=== PATIENT | female | born 1975 | race Caucasian/White ===

== ENCOUNTER 2019-09-25 08:56 | Inpatient (IN) | payer SELFPAY ==
[2019-09-25 09:07] VITALS: BP 130/94; PULSE 119; RESP 22; TEMP 36.4; O2SAT 93; BMI 33.3
--- NOTE | 2019-09-25 09:36 | W.ED.PSYCH ---
HPI - Psych General: Chief Complaint: Psychiatric Symptoms Stated Complaint: WANTS NPU Time Seen by Provider: 09/25/19 09:04 Source: patient Mode of arrival: ambulatory Limitations: no limitations History of Present Illness: HPI Narrative: Patient is a 44-year-old female who presents to ED today along with her daughter for complaints of worsening bipolar and schizophrenia symptoms; patient tells me her auditory hallucinations are worsening to the point where they are affecting her daily functioning; she states she often hears the voices coming through the radio telling her to do random things in the house such as go upstairs and wait for an individual to arrive; she states she is occasionally becoming manic and daughter states she will walk to her house at 6 AM which is over a 2 mile walk; patient states that she is not eating well, not bathing, and not keeping up with beauty director because I feel stuck in my mind ; patient reports her last inpatient hospitalization was approximately 2 years ago and at that point was started on risperidone which seemed to control her symptoms well up until the last few months; she denies feeling suicidal but states she wants to go to bed and not wake up because she is tired of feeling like this and being a burden on her and daughter. She does admit to occasional methamphetamine use. Relieving factors: none Exacerbating factors: none Associated psychiatric symptoms: auditory hallucinations Associated symptoms: Reports auditory hallucinations and depression; Deny visual hallucinations, homicidal ideation or suicidal ideation Review of Systems Const: Denies: fever or chills Card: Denies: chest pain, palpitations, irregular heart rhythm, edema, lightheadedness, syncope or pre-syncope Resp: Denies: shortness of breath, coughing up blood or chest congestion GI: Denies: abdominal pain, nausea, vomiting or diarrhea Skin/Breast: Denies: rash Neuro: Denies: headache Psych: Reports: anxiety, depression, mood swings, panic attacks, hopelessness, loss of interest, paranoia and auditory hallucinations; Denies: visual hallucinations, suicidal ideation or homicidal ideation PFSH ED PFSH: Statuses (acute, chronic, etc) shown below reflect problem list status as previously entered and may not be historically accurate Social History (Updated 09/25/19 @ 14:15 by Leela Gutierrez RN) Smoking and tobacco status: current every day smoker Quit status (tobacco): not considering quitting Second hand smoke exposure: No Smoking risk assessment/counseling performed?: Yes Current gender identity: Female Physical Exam Const: COMMON NORMALS: no apparent distress, oriented x3, no limitations, alert and well nourished GENERAL APPEARANCE: cooperative ORIENTATION/CONSCIOUSNESS: Yes oriented to person, Yes oriented to place and Yes oriented to time Resp: COMMON NORMALS: normal respiratory effort and clear to auscultation bilaterally AUSCULTATION: clear to auscultation bilaterally Cardio: COMMON NORMALS: regular rate and regular rhythm RATE: regular rate RHYTHM: regular rhythm Neuro: JUDE COMA SCALE: document GCS findings Jude coma scale eye opening: Spontaneous [place] coma scale verbal response: Orientated Jude coma scale motor response: Obey commands [place] coma scale total score: 15 COMMON NORMALS: oriented x3, moves all extremities and no focal motor deficits SENSORIUM/ORIENTATION: Yes alert, Yes oriented to person, Yes oriented to place and Yes oriented to time SPEECH: speech normal GAIT: Yes normal gait Psych: COMMON NORMALS: mental status grossly normal, thought process normal, cooperative, affect normal, speech normal and activity/motor behavior normal APPEARANCE: Yes grossly normal ACTIVITY/MOTOR BEHAVIOR: Yes appropriate eye contact and No psychomotor agitation SPEECH: Yes normal speech THOUGHT PROCESS: normal thought process THOUGHT CONTENT: Yes normal thought content ATTENTION/CONCENTRATION: Yes attention grossly intact and Yes concentration grossly intact MEMORY/COGNITION: Yes memory grossly intact and Yes cognition grossly intact INSIGHT: insight good JUDGEMENT: judgment good Skin: COMMON NORMALS: no rashes or lesions noted GENERAL SKIN EXAM: no rashes or lesions noted MDM - Psych Lab Data: Labs: Lab Results 09/25/19 09/25/19 09/25/19 Range/Units 09:39 09:46 09:46 WBC 7.2 (4.0-10.0) 10^3/ uL RBC 5.02 (4.1-5.3) 10^6/u L Hgb 15.4 H (11.5-15.3) g/dL Hct 47.8 H (37.0-47.0) % MCV 95.2 (81-99) fL MCH 30.7 (28.0-34.0) pg MCHC 32.2 (30.0-36.0) g/dL RDW 14.0 (12.1-15.1) % Plt Count 244 (130-400) 10^3/c mm MPV 9.2 (7.4-10.4) fL Neut % (Auto) 71.8 % Lymph % (Auto) 22.8 % Woodson % (Auto) 3.6 % Eos % (Auto) 0.8 % Baso % (Auto) 0.6 % Neut # (Auto) 5.2 (1.8-7.7) 10^3/u L Lymph # (Auto) 1.6 (0.8-4.8) 10^3/u L Woodson # (Auto) 0.3 (0.2-0.9) 10^3/u L Eos # (Auto) 0.1 (0.0-0.8) 10^3/u L Baso # (Auto) 0.0 (0.0-0.1) 10^3/u L Nucleated RBC % (a uto) 0 % Nucleated RBCs # 0.0 /100WBC Sodium 139 (136-145) mmol/L Potassium 3.9 (3.5-5.1) mmol/L Chloride 103 (98-107) mmol/L Carbon Dioxide 27 (22-29) mmol/L Anion Gap 12.9 (5-19) BUN 7 (6-20) mg/dL Creatinine 0.9 (0.5-0.9) mg/dL GFR Calculation 67.4 L (90-130) mL/min Glucose 135 H (74-109) mg/dL Calcium 10.0 (8.5-10.5) mg/dL Total Bilirubin 0.2 (0.15-1.2) mg/dL AST 19 (0-32) U/L ALT 20 (0-33) U/L Alkaline Phosphata se 78 (35-105) IU/L Total Protein 7.5 (6.6-8.7) g/dL Albumin 3.8 (3.5-5.2) g/dL Globulin 3.7 (1.3-4.6) g/dL HCG, Qual (Negative) Salicylates < 0.3 L (3-10) mg/dL Urine Opiates Scre en Negative (Negative) ng/mL Acetaminophen < 5.0 L (10-30) ug/mL Ur Barbiturates Sc reen Negative (Negative) ng/mL Ur Phencyclidine S crn Negative (Negative) ng/mL Ur Amphetamines Sc reen Positive H (Negative) ng/mL U Benzodiazepines Scrn Negative (Negative) ng/mL Urine Cocaine Scre en Negative (Negative) ng/mL U Marijuana (THC) Screen Negative (Negative) ng/mL Ethyl Alcohol < 10 (0-10) mg/dL 09/25/19 Range/Units 09:46 WBC (4.0-10.0) 10^3/ uL RBC (4.1-5.3) 10^6/u L Hgb (11.5-15.3) g/dL Hct (37.0-47.0) % MCV (81-99) fL MCH (28.0-34.0) pg MCHC (30.0-36.0) g/dL RDW (12.1-15.1) % Plt Count (130-400) 10^3/c mm MPV (7.4-10.4) fL Neut % (Auto) % Lymph % (Auto) % Woodson % (Auto) % Eos % (Auto) % Baso % (Auto) % Neut # (Auto) (1.8-7.7) 10^3/u L Lymph # (Auto) (0.8-4.8) 10^3/u L Woodson # (Auto) (0.2-0.9) 10^3/u L Eos # (Auto) (0.0-0.8) 10^3/u L Baso # (Auto) (0.0-0.1) 10^3/u L Nucleated RBC % (a uto) % Nucleated RBCs # /100WBC Sodium (136-145) mmol/L Potassium (3.5-5.1) mmol/L Chloride (98-107) mmol/L Carbon Dioxide (22-29) mmol/L Anion Gap (5-19) BUN (6-20) mg/dL Creatinine (0.5-0.9) mg/dL GFR Calculation (90-130) mL/min Glucose (74-109) mg/dL Calcium (8.5-10.5) mg/dL Total Bilirubin (0.15-1.2) mg/dL AST (0-32) U/L ALT (0-33) U/L Alkaline Phosphata se (35-105) IU/L Total Protein (6.6-8.7) g/dL Albumin (3.5-5.2) g/dL Globulin (1.3-4.6) g/dL HCG, Qual Negative (Negative) Salicylates (3-10) mg/dL Urine Opiates Scre en (Negative) ng/mL Acetaminophen (10-30) ug/mL Ur Barbiturates Sc reen (Negative) ng/mL Ur Phencyclidine S crn (Negative) ng/mL Ur Amphetamines Sc reen (Negative) ng/mL U Benzodiazepines Scrn (Negative) ng/mL Urine Cocaine Scre en (Negative) ng/mL U Marijuana (THC) Screen (Negative) ng/mL Ethyl Alcohol (0-10) mg/dL Discharge Plan Discharge Patient Disposition: Xfer Psychiatric Hosp Clinical Impression: Chronic schizophrenia Bipolar disorder Qualifiers: Active/Remission status: in partial remission Most recent bipolar episode type: most recent episode unspecified type Qualified Code(s): F31.70 - Bipolar disorder, currently in remission, most recent episode unspecified Condition: Stable Discharge Orders: Discharge Order (Routine); Ordered 09/27/19 Ordered By: Julio Vo Discharge Diet: Regular Discharge Activity: Resume usual activity Discharge Date/Time: 09/25/19 11:50 Coding Level of Care Code ED Shuttle Driver for Chg Fwd Exam Problem Focused
[2019-09-25 09:51] LABS: Basophils % 0.6 %; Eosinophils # 0.1 10^3/uL (0.0-0.8); Eosinophils % 0.8 %; Hematocrit 47.8 % (37.0-47.0); Hemoglobin 15.4 g/dL (11.5-15.3); Lymphocytes # 1.6 10^3/uL (0.8-4.8); Lymphocytes % 22.8 %; Mean Corpuscular HGB Conc 32.2 g/dL (30.0-36.0); Mean Corpuscular Hemoglobin 30.7 pg (28.0-34.0); Mean Corpuscular Volume 95.2 fL (81-99); Mean Platelet Volume 9.2 fL (7.4-10.4); Monocytes # 0.3 10^3/uL (0.2-0.9); Monocytes % 3.6 %; Neutrophils # 5.2 10^3/uL (1.8-7.7); Neutrophils % 71.8 %; Nucleated Red Blood Cells % 0 %; Platelet Count 244 10^3/cmm (130-400); Red Blood Count 5.02 10^6/uL (4.1-5.3); White Blood Count 7.2 10^3/uL (4.0-10.0)
[2019-09-25] MEDS: LORazepam 2 mg/mL INJ 1 mL 1 MG IM (09:55)
[2019-09-25 10:10] LABS: HCG, Serum Qual Negative (Negative)
[2019-09-25 10:12] LABS: Alanine Aminotransferase 20 U/L (0-33); Albumin Level 3.8 g/dL (3.5-5.2); Alkaline Phosphatase 78 IU/L (35-105); Anion Gap 12.9 (5-19); Aspartate Amino Transferase 19 U/L (0-32); Blood Urea Nitrogen 7 mg/dL (6-20); Carbon Dioxide 27 mmol/L (22-29); Chloride 103 mmol/L (98-107); Globulin 3.7 g/dL (1.3-4.6); Glomerular Filtration Rate 67.4 mL/min (90-130); Glucose 135 mg/dL (74-109); Potassium 3.9 mmol/L (3.5-5.1); Sodium 139 mmol/L (136-145); Total Bilirubin 0.2 mg/dL (0.15-1.2); Total Protein 7.5 g/dL (6.6-8.7)
[2019-09-25 10:14] LABS: Acetaminophen < 5.0 ug/mL (10-30); Alcohol Level < 10 mg/dL (0-10); Salicylate < 0.3 mg/dL (3-10)
[2019-09-25 10:17] LABS: Barbiturates Screen Urine Negative (Negative); Benzodiazepines Screen Urine Negative (Negative); Cocaine Screen Urine Negative (Negative); Opiate Screen Urine Negative (Negative); PCP Screen Urine Negative (Negative); THC Screen Urine Negative (Negative)
[2019-09-25 10:18] LABS: Amphetamines Screen Urine Positive (Negative)
[2019-09-25] MEDS: nicotine 21 mg Patch 1 PATCH TRANSDERMA (10:18)
[2019-09-25] MEDS: OLANZapine ODT 5 MG TABLET 2.5 MG PO (10:30)
--- NOTE | 2019-09-25 11:20 | PC.NURSE ---
pt resting comfortably at this time
[2019-09-25 11:50] VITALS: BP 147/96; PULSE 90; O2SAT 96
[2019-09-25 12:10] VITALS: BP 146/96; PULSE 106; RESP 18; TEMP 36.6; O2SAT 94
[2019-09-25] MEDS: hyDROXYzine 25 mg Capsule 50 MG PO (12:40)
--- NOTE | 2019-09-25 12:41 | PC.NURSE ---
PRN VISTARIL 50 MG GIVEN PO PER PT C/O ANXIETY REQUEST SOMETHING FOR HER NERVES WILL CONT TO MONITOR.
--- NOTE | 2019-09-25 14:17 | PC.NURSE ---
prn vistaril effective no further c/o anxiety. pt able to participate in group at this time
[2019-09-25 21:10] VITALS: BP 151/96; PULSE 97; RESP 21; TEMP 36.8; O2SAT 94
[2019-09-26 06:00] VITALS: BP 148/93; PULSE 91; RESP 20; TEMP 36.7; O2SAT 94
[2019-09-26] MEDS: hyDROXYzine 25 mg Capsule 50 MG PO ×2 (08:54→16:18)
[2019-09-26] MEDS: risperiDONE 1 mg Tablet PO ×3 (08:54→20:42)
--- NOTE | 2019-09-26 08:55 | PC.NURSE ---
Addendum entered by Nidia Justin LPN 09/26/19 11:04: prn med effective no further c/o anxiety, pt was able to attend group this morning Original Note: PRN VISTARIL 50 MG GIVEN PO PER PT C/O STATED ANXIETY. HAD TO BE WOKEN UP TO TAKE SCHEDULED RISPERDAL. STAFF WILL CONT TO MONITOR.
[2019-09-26] MEDS: nicotine 21 mg Patch 1 PATCH TRANSDERMA (10:17)
[2019-09-26] MEDS: LORazepam 1 mg Tablet PO (11:52)
--- NOTE | 2019-09-26 11:54 | PC.NURSE ---
PT NOTE: PRN ATIVAN 1MG PO GIVEN FOR ANXIETY PER DR. YODER.
[2019-09-26 13:47] VITALS: BP 140/102; PULSE 114; RESP 18; TEMP 36.8; O2SAT 94
--- NOTE | 2019-09-26 15:09 | P.HP_ITS ---
Providers/Chief Complaint Admitting Physician: Julio Vo MD Primary Care Provider: Krystian Chaparro MD Chief Complaint: BIPOLAR, SCHIZOPHRENIA, ACUTE PSYCHOSIS HPI NPU History of Present Illness Yamileth Feliciano is a 44 year old female who presents today reporting that she is having a significant episode of julianna which is something she has struggled with in the past. She reports that she has been on the Risperdal 1 mg daily for long time and feels like it's been ineffective. We discussed the risks benefits and alternatives of increasing her Risperdal and she understood and agreed to proceed as is documented in this note. Additionally we discussed her addiction which she was very much downplaying. She reports that she maybe uses methamphetamine once a month. We discussed the fact that even if that's the case her intersections with mental health increase with her usage of drugs. He reports that overall she feels doing better in general managing her addiction but she does feel like the medication is begun to wear off. She denies significant psychosocial changes since her last hospitalization which was 11/09/2017 which has an excerpt below. She denies being homeless or having any significant psychosocial stressors preventing her from having success at this time. Psychiatric history: She reports that she hasn't had many hospitalizations, and full or less. She also denies being on multiple different medications. She reports that the Risperdal has been helpful but she is always been on this fairly low dose. Substance abuse history: She does endorse limited cigarette smoking, denies significant alcohol use, denies marijuana use or any other illicit drug use except for the methamphetamine which she reports is a very minimal behavior/once a month. History of Present Illness Date of Service: Nov 09, 2017 Chief Complaint: acute agitation, delusions HPI: Ms. Feliciano is a 42-year-old female who was admitted from the [facility] ED on a 96 hour hold where she presented with acute agitation, and some delusional thinking. Per affidavits completed per the ER physician and the patient's friend, they describe with the patient is acutely psychotic, disoriented and admitted to recently using methamphetamine. Appears that the patient was extremely agitated at that time, and did not recognize his son. In addition of friends describes that the patient has been having delusions of being hit by a car and having a friend receive a lot of money from. As patient presents today she reports that prior to coming in the hospital that she had extreme panic attack and had episodes of confusion and disorientation. When confronted with the data that her UDS was positive for amphetamine, she minimized this at first but then admitted that she did use a few days before he came into the hospital . She states that she is aware that she is on a 96 hour hold and I did voluntarily decided to come in but my family were concerned about me. Prior to this incident she denies any symptoms consistent with julianna, hypomania, psychosis or depression and by her report she was doing relatively well. She states that she has some difficulty recalling the details of the events that happened over the past 4 days, and so was unable to answer any questions about her substance use, or any other psychosocial stressors that led up to her hospitalization. As she presents today she denies any symptoms consistent with julianna, hypomania, psychosis. She does report having some difficulty sleeping. She denies any alcohol use, denies any other substance use. Meds NPU Home Medications Medication Instructions Recorded Confirmed Type clonidine HCl 0.1 mg PO DAILY 09/25/19 09/25/19 History hydroxyzine pamoate 25 mg PO QID 09/25/19 09/25/19 History risperidone 1 mg PO DAILY 09/25/19 09/25/19 History Allergies Allergy/AdvReac Type Severity Reaction Status Date / Time No Known Allergies Allergy Verified 09/25/19 09:18 PFS NPU PFSH: Statuses (acute, chronic, etc) shown below reflect problem list status as previously entered and may not be historically accurate Social History (Updated 09/25/19 @ 14:15 by Leela Gutierrez RN) Smoking and tobacco status: current every day smoker Quit status (tobacco): not considering quitting Second hand smoke exposure: No Smoking risk assessment/counseling performed?: Yes Current gender identity: Female Mental Status Exam MSE Comments: This is an obese white female with adequate dress, grooming and contact. Does have a red rash on the center of her face. No abnormal movements except for psychomotor agitation. Cooperative with exam in no acute distress. Speech was increased rate and volume. Mood described as manic, affect energetic. Thought process organized. Thought content: Patient denied any suicidal or homicidal ideations, there were no delusions reported noted, she denied any auditory or visual hallucinations. Attention and concentration were intact and memory appeared reliable and none were formally tested. She is alert and oriented ?3. Insight and judgment are limited. Vitals/I&O/Wt Last Vital Signs Temp 98.2 F 09/26/19 13:47 Pulse 114 H 09/26/19 13:47 Resp 18 09/26/19 13:47 BP 140/102 09/26/19 13:47 Pulse Ox 94 09/26/19 13:47 Weight last 48 hrs Weight 90.718 kg Data NPU : 09/25/19 09:46 09/25/19 09:46 A&P Additional A&P Information This is a 44-year-old white female with a known history of bipolar disorder and active addiction who presents in an apparent hypomanic/manic state desiring adjustment to her medication to help with her julianna. 1. Continue current medication except increase Risperdal to 1 mg every morning and 2 mg by mouth daily at bedtime. 2. Encourage individual, group and milieu therapy. 3. Continue every 15 minute checks for safety. 4. Encourage sober living treatment referrals at the highest level of care to which she is willing to commit. Involuntary Hold Information 96 Hour Hold: 96 Hour Involuntary Admission: No Attestations NPU Medical Necessity Statement*: Inpatient hospitalization is medically necessary in the clinically appropriate intervention at this time. She will be in the h ospital for over 2 midnights. She is not on a 96 hour hold and is also very interested in being able to discharge when she feels better so this will likely be a short stay. Likely length of stay 2-4 days. Coding Level of Care Code Acute Agronomy Research Manager for Shara Zaldivar
--- NOTE | 2019-09-26 16:19 | PC.NURSE ---
PRN VISTARIL 50 MG GIVEN PO PER PT C/O STATED ANXIETY WILL CONT TO MONITOR.
[2019-09-26] MEDS: propranolol 20 mg Tablet PO (20:41)
[2019-09-26] MEDS: trazodone 50 mg Tablet PO (20:41)
[2019-09-26 22:00] VITALS: BP 158/93; PULSE 109; RESP 21; TEMP 36.8; O2SAT 95
[2019-09-27] MEDS: acetaminophen 325 mg Tablet 650 MG PO (02:40)
[2019-09-27 06:00] VITALS: BP 119/71; PULSE 73; RESP 19; TEMP 37.1; O2SAT 93
[2019-09-27] MEDS: risperiDONE 1 mg Tablet PO (09:22)
[2019-09-27] MEDS: propranolol 20 mg Tablet PO ×2 (09:22→14:28)
[2019-09-27] MEDS: nicotine 21 mg Patch 1 PATCH TRANSDERMA (10:38)
[2019-09-27 14:00] VITALS: BP 129/85; PULSE 80; RESP 18; TEMP 36.8; O2SAT 94
--- NOTE | 2019-09-27 15:12 | PM.NDC ---
Reason for Visit Reason for Visit: Reason For Visit: BIPOLAR, SCHIZOPHRENIA, ACUTE PSYCHOSIS Brief History: HPI NPU History of Present Illness Yamileth Feliciano is a 44 year old female who presents today reporting that she is having a significant episode of julianna which is something she has struggled with in the past. She reports that she has been on the Risperdal 1 mg daily for long time and feels like it's been ineffective. We discussed the risks benefits and alternatives of increasing her Risperdal and she understood and agreed to proceed as is documented in this note. Additionally we discussed her addiction which she was very much downplaying. She reports that she maybe uses methamphetamine once a month. We discussed the fact that even if that's the case her intersections with mental health increase with her usage of drugs. He reports that overall she feels doing better in general managing her addiction but she does feel like the medication is begun to wear off. She denies significant psychosocial changes since her last hospitalization which was 11/09/2017 which has an excerpt below. She denies being homeless or having any significant psychosocial stressors preventing her from having success at this time. Psychiatric history: She reports that she hasn't had many hospitalizations, and full or less. She also denies being on multiple different medications. She reports that the Risperdal has been helpful but she is always been on this fairly low dose. Substance abuse history: She does endorse limited cigarette smoking, denies significant alcohol use, denies marijuana use or any other illicit drug use except for the methamphetamine which she reports is a very minimal behavior/once a month. History of Present Illness Date of Service: Nov 09, 2017 Chief Complaint: acute agitation, delusions HPI: Ms. Feliciano is a 42-year-old female who was admitted from the [facility] ED on a 96 hour hold where she presented with acute agitation, and some delusional thinking. Per affidavits completed per the ER physician and the patient's friend, they describe with the patient is acutely psychotic, disoriented and admitted to recently using methamphetamine. Appears that the patient was extremely agitated at that time, and did not recognize his son. In addition of friends describes that the patient has been having delusions of being hit by a car and having a friend receive a lot of money from. As patient presents today she reports that prior to coming in the hospital that she had extreme panic attack and had episodes of confusion and disorientation. When confronted with the data that her UDS was positive for amphetamine, she minimized this at first but then admitted that she did use a few days before he came into the hospital . She states that she is aware that she is on a 96 hour hold and I did voluntarily decided to come in but my family were concerned about me. Prior to this incident she denies any symptoms consistent with julianna, hypomania, psychosis or depression and by her report she was doing relatively well. She states that she has some difficulty recalling the details of the events that happened over the past 4 days, and so was unable to answer any questions about her substance use, or any other psychosocial stressors that led up to her hospitalization. As she presents today she denies any symptoms consistent with julianna, hypomania, psychosis. She does report having some difficulty sleeping. She denies any alcohol use, denies any other substance use. Meds NPU Home Medications Medication Instructions Recorded Confirmed Type clonidine HCl 0.1 mg PO DAILY 09/25/19 09/25/19 History hydroxyzine pamoate 25 mg PO QID 09/25/19 09/25/19 History risperidone 1 mg PO DAILY 09/25/19 09/25/19 History Allergies Allergy/AdvReac Type Severity Reaction Status Date / Time No Known Allergies Allergy Verified 09/25/19 09:18 [facility] NPU PFSH: Statuses (acute, chronic, etc) shown below reflect problem list status as previously entered and may not be historically accurate Social History (Updated 09/25/19 @ 14:15 by Leela Gutierrez RN) Smoking and tobacco status: current every day smoker Quit status (tobacco): not considering quitting Second hand smoke exposure: No Smoking risk assessment/counseling performed?: Yes Current gender identity: Female Hospital Course Hospital Course Yamileth presented to the emergency room reporting thoughts to kill herself and feeling like her medication was not working. She was admitted to the neuropsych unit and quickly acclimated to the individual, group and milieu therapies provided. We were able to identify that she never really gotten a robust trial of her Risperdal which she felt was not working as it had been 1 mg daily. The medication was increased to 3 mg total during the day with the 2 mg at night and 1 mg in the morning and she responded quite well. During hospitalization she had routine laboratory studies which were within normal limits except for a few outliers. Additionally she had a general medical evaluation was within normal limits and revealed no new acute processes. Discharge Summary At the time of discharge she was absent lethality, her mood and anxiety were well managed, she denied any psychosis and she reported a plan to avoid all drugs of abuse and follow-up with outpatient services program referrals. She was evaluated and deemed to be absence or lethality and she obtained appropriate benefit from inpatient hospitalization so she was discharged. Involuntary Hold Information 96 Hour Hold: 96 Hour Involuntary Admission: No Mental Status Exam MSE Comments: This is an obese white female with adequate dress, grooming and contact. Does have a red rash on the center of her face. No abnormal movements except for improving psychomotor agitation. Cooperative with exam in no acute distress. Speech was more normal rate and volume. Mood described as better, affect less energetic. Thought process organized. Thought content: Patient denied any suicidal or homicidal ideations, there were no delusions reported noted, she denied any auditory or visual hallucinations. Attention and concentration were intact and memory appeared reliable and none were formally tested. She is alert and oriented ?3. Insight and judgment are improving. Discharge Data Vitals: Last Vital Signs Temp 98.3 F 09/27/19 14:00 Pulse 80 09/27/19 14:00 Resp 18 09/27/19 14:00 BP 129/85 09/27/19 14:00 Pulse Ox 94 09/27/19 14:00 Discharge Plan Discharge Patient Disposition: Home, Self-Care Condition: Stable Prescriptions: New risperidone 1 mg Tablet 1 mg PO BID 30 Days Qty: 60 RF: 1 risperidone 1 mg Tablet 1 mg PO BEDTIME 30 Days Qty: 30 RF: 1 Continued clonidine HCl 0.1 mg Tablet 0.1 mg PO DAILY RF: 0 hydroxyzine pamoate 25 mg Capsule 25 mg PO QID RF: 0 Discontinued risperidone 1 mg Tablet 1 mg PO DAILY RF: 0 Discharge Orders: Discharge Order (Routine); Ordered 09/27/19 Ordered By: Julio Vo Referrals: Krystian Chaparro MD [Primary Care Provider] - Brad Inman MD [Physician] - 11/27/19 9:00 am Discharge Diet: Regular Discharge Activity: Resume usual activity Patient Instructions: Risperidone (By mouth), Schizophrenia (GEN) Activity Restrictions/Additional Instructions: You have an appointment scheduled in November. If you need to get seen sooner, you may want to come during the walk-in hours during the week to see about coming as a walk-in . [facility] [address] [place] [address] walk-in hours 7:30 a.m-2:30 p.m. Wednesday through Wednesday. [facility] upper caser referral was requested. You said that you are aware of food bank but upper caser might know of more resources that are relevant for you. You said that housing might be unstable in the near future since you lost your job. Be sure to ask [facility] about that referral if you have not heard from anyone within a week. Individual therapy referral also has been requested at [facility]. Do check on that referral as well. Be sure to attend the meetings at the [facility]. If needed, there is [place] behind the [address]. [address] [place] [address] Discharge Date/Time: 09/27/19 16:45 Discharge Attestations NPU Time Spent in Discharge Care*: less than 30 min Specific Discharge Activities: Specific discharge activities: educating patient, discussing with case making machine operator/social workers/dc planners, documenting/other paperwork and evaluating patient/reviewing data Coding Level of Care Code Acute Adolescent Medicine Specialist for Shara Zaldivar
[2019-09-27 15:19] VITALS: BP 129/85; PULSE 80; RESP 18; TEMP 36.8; O2SAT 94
== END 2019-09-27 16:45 | disposition home or self-care (01) | DRG 885 ==
LOC: ER 10:54 → NP 11:52 → ER 17:13
PROVIDERS: Admitting Provider Psychiatry & Neurology Psychiatry; Emergency Provider Physician Assistant; PCP Family Medicine; Visit Provider Psychiatry & Neurology Psychiatry
DX: F31.9 Bipolar disorder, unspecified (principal); F20.9 Schizophrenia, unspecified; F17.210 Nicotine dependence, cigarettes, uncomplicated
CPT/HCPCS: 12345; 36415; 80053; 80307; 84703; 85025; 99284; A9270; J2060

== ENCOUNTER 2024-01-10 00:22 | Inpatient (IN) | payer MEDICAID, SELFPAY ==
[2024-01-10] VITALS (104 sets, daily range): BP systolic 110–181; BP diastolic 67–116; PULSE 79–119; RESP 12–32; TEMP 36.4–36.9; O2SAT 87–97; BMI 31.7
--- NOTE | 2024-01-10 00:50 | PM.HP ---
Providers/Chief Complaint Admitting Physician: Janis Nuñez MD Primary Care Provider: Krystian Chaparro MD Chief Complaint: Hypertensive Emergency History of Present Illness Yamileth Feliciano is a 48 year old female Past medical bipolar disorder, migraine headaches, schizophrenia, hypertension, methamphetamine use, psychiatric hospitalization 2019 for episode of julianna presented to the hospital today as a transfer from [facility] for hypertensive emergency. Patient was given Zofran, Benadryl, morphine, potassium, Lasix, lisinopril elevated patient's arrival blood pressure 224/137. Subsequent pressures 219/190, 203/136. At time of my call of patient acceptance for transfer patient's blood pressure 119/74. Patient still on nicardipine drip. She has been in the hospital for about 7 hours. Patient is noncompliant with medications and not on any medications at home for blood pressure. She told the ER doctor that she does not have a ride usually and has no way of getting her medications. I did express my concerns to the ER doc regarding patient's blood pressure dropping too fast and too reduce dose of Cardene drip versus turning it off. Patient says headache was her main concern and the reason of her going to the ER. She states typically when she gets a headache she will take Tylenol and get better however this time it was a pulsating headache not improving at all and going on for the last 4 days. She says she even took a couple of hits of meth to see if it would improve however that did not help the headache at all. She also admits to using marijuana occasionally. When seen in ICU patient is off Cardene drip. Denies nausea, vomiting. Does have some mild photophobia however says the headache is better. Has no other complaints at this time Creatinine 1.47, BNP 13,000, A1c 5.5. Patient is a smoker. I do not have an EKG from that hospital nor troponin at this time. Patient seen in ICU appearing comfortable at this time. Medications/Allergies Allergies Allergy/AdvReac Type Severity Reaction Status Date / Time hydromorphone [From Dilaudid] Allergy ADR-Migrain Verified 01/10/24 01:19 e PFSH Acute PFSH: Social History (Updated 08/13/20 @ 10:16 by Angelique Trujillo LPN) Smoking and tobacco/nicotine status: current every day tobacco/nicotine user cigarettes Packs smoked per day: 1.5 Years cigarettes smoked: 30 Quit status (tobacco/nicotine): not considering quitting Second hand smoke exposure: Yes Current gender identity: Female Female Reproductive History: Date of last menstrual period: 05/12/04 Vitals/I&O/Wt Last Vital Signs O2 Del Method Room Air 01/10/24 00:35 Weight last 48 hrs Weight 86.5 kg Physical Exam Narrative: General: Alert oriented x3, patient seen laying in bed, talking very fast HEENT: Normocephalic, atraumatic, EOMI, breathing room air Cardio: Regular rate rhythm, normal S1-S2 Respiratory: Good bilateral air entry, no wheezes no rhonchi appreciated GI: Abdomen soft, nontender, nondistended, bowel sounds + Extremities: Pulses 2+, no edema, no cyanosis Psych: COMMON NORMALS: cooperative ACTIVITY/MOTOR BEHAVIOR: Yes hyperactivity, Yes restless and Yes Avoids eye contact (attititude/behavior) SPEECH: Yes excessive and Yes rapid A&P Assessment and plan (1) Bipolar disorder: Qualifiers: Active/Remission status: in partial remission Most recent bipolar episode type: most recent episode unspecified type Qualified Code(s): F31.70 - Bipolar disorder, currently in remission, most recent episode unspecified (2) Amphetamine use disorder, severe, dependence: (3) Cannabis use disorder, mild, abuse: (4) Hypertensive emergency: (5) RADHA (acute kidney injury): (6) Elevated brain natriuretic peptide (BNP) level: Plan #Hypertensive emergency #RADHA probably secondary to above #Headache #Bipolar disorder #Schizophrenia #Smoker #Methamphetamine abuse #Noncompliance to medications -Blood pressure on arrival to [facility] ER 237/134. Patient given lisinopril, Lasix, placed on Cardene drip. Pressure lowered down to 119/70 within 7 hours. Nicardipine drip stopped and patient transferred over to [facility]. I would hold off on restarting the drip at this time. Pressure here is 127/75. ? Will place on amlodipine 10 daily for now. ? Will need to add more medications warranted. ? Patient may be having hypertensive emergency secondary to methamphetamine use. She says she used meth in efforts to resolve her headache. ? Has not had a migraine in over 20 years -BNP at outside facility 13,000. - Check urine drug screen - Check EKG - Check cbc, cmp, mag in AM - Check ECHO - Check chest xray - Cr 1.47 at outside facility - place on ns 75 cc /hr - nicotine patch ordered - Obtain cbc, cmp, mag Full Code - Hep subc BID for DVT PPX Attestations Medical Necessity Statement*: > 2 midnight stay for hypertensive emergency Diagnoses Bipolar disorder F31.70 Active/Remission status: in partial remission Most recent bipolar episode type: most recent episode unspecified type Amphetamine use disorder, severe, dependence F15.20 Cannabis use disorder, mild, abuse F12.10 Hypertensive emergency I16.1 RADHA (acute kidney injury) N17.9 Elevated brain natriuretic peptide (BNP) level R79.89
--- NOTE | 2024-01-10 01:33 | USCV_ITS ---
Yamileth Feliciano Age: 48 Gender: F : 1975 Exam Date: 01/10/2024 09:20 Ordering Phys: Janis Nuñez MD Technologist: [place] [facility] [place]: ? chf BP: 134 / 74 HR: 149 Rhythm: Sinus Technical Quality: Adequate MEASUREMENTS (Male / Female) Normal Values 2D ECHO LV Diastolic Diameter PLAX 4.2 cm 4.2 - 5.9 / 3.9 - 5.3 cm IVS Diastolic Thickness 2.2 cm 0.6 - 1.0 / 0.6 - 0.9 cm IVS Systolic Thickness 2.3 cm LVPW Diastolic Thickness 2.1 cm 0.6 - 1.0 / 0.6 - 0.9 cm LVPW Systolic Thickness 2.9 cm LVOT Diameter 2.1 cm LV Ejection Fraction 2D Teich 64.9 % LV Ejection Fraction MOD 2C 58.6 % LV Ejection Fraction 2C AL 60.2 % LA Diameter 3.0 cm RA Systolic Volume 4C AL 32.4 ml RA Systolic Volume 4C MOD 31.5 ml Aorta at Sinotubular Diameter 2.8 cm M-MODE LA Ao Ratio MM 0.9 AV Cusp Separation MM 2.2 cm DOPPLER AV Peak Velocity 161.0 cm/s LVOT Peak Velocity 111.0 cm/s AV Area Cont Eq vti 4.3 cm squared AV Area Cont Eq pk 2.4 cm squared MV Peak Velocity 136.0 cm/s MV Area PHT 7.4 cm squared Mitral E to A Ratio 0.6 TV Peak Velocity 278.5 cm/s TR Peak Velocity 288.0 cm/s TR Peak Gradient 33.2 mmHg TV Peak E Velocity 125.0 cm/s Right Atrial Pressure 3.0 mmHg Pulmonary Artery Systolic Pressu 36.2 mmHg PV Peak Velocity 114.0 cm/s FINDINGS Left Ventricle Moderate left ventricular hypertrophy. Normal left ventricular size and systolic function, EF 59%. No regional wall motion abnormalities. Grade I/IV diastolic dysfunction (abnormal relaxation filling pattern), normal to mildly elevated filling pressures. Right Ventricle The right ventricle is normal in size and function. Right Atrium The right atrium is normal in size. Left Atrium The left atrium is normal in size. Mitral Valve Mild mitral annular calcification. Aortic Valve No gross abnormalities noted Tricuspid Valve Trace tricuspid valve regurgitation. Pulmonic Valve Pulmonic valve not well visualized. Pericardium Normal pericardium without effusion. Aorta Normal ascending aorta dimension. IVC Inferior vena cava not visualized. CONCLUSIONS Moderate left ventricular hypertrophy. Normal left ventricular size and systolic function, EF 59%. No regional wall motion abnormalities. Grade I/IV diastolic dysfunction (abnormal relaxation filling pattern), normal to mildly elevated filling pressures. Mild mitral annular calcification. Trace tricuspid valve regurgitation. Estimated pulmonary artery peak systolic pressure 36 mmHg There is no pericardial effusion. There are no intracardiac masses. No similar previous studies are available for comparison Dr Bradley Balderas MD [facility] (Electronically Signed) Final Date: 10 Jan 2024 21:36 S
--- NOTE | 2024-01-10 01:46 | XRR_ITS ---
PROCEDURE INFORMATION: Exam: XR Chest Exam date and time: 01/10/2024 1:56 AM Age: 48 years old Clinical indication: Shortness of breath; Patient HX: C/O SOB TECHNIQUE: Imaging protocol: Radiologic exam of the chest. Views: 1 view. COMPARISON: CR XR chest 1V [id number] 11/02/2017 2:21 PM FINDINGS: Lungs: No consolidation. Pleural spaces: No large pleural effusion. No pneumothorax. Heart/Mediastinum: No cardiomegaly. Bones/joints: Old right-sided rib fracture deformities. No acute fracture. XR/XR chest 1V portable [id number] IMPRESSION: No acute findings.
--- NOTE | 2024-01-10 01:47 | ECG_ITS ---
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 Measurements Intervals [place] Rate: 83 P: 49 CO: 161 QRS: 0 QRSD: 92 T: 151 QT: 438 QTc: 517 Interpretive Statements SINUS RHYTHM LEFT VENTRICULAR HYPERTROPHY AND ST-T CHANGE [VOLTAGE CRITERIA PLUS ST/T ABNORMALITY] Compared to ECG 01/10/2024 03:44:17 No significant changes Electronically Signed On 01-10-2024 12:52:05 CDT by Jarrell Steiner M.D. [id number]
[2024-01-10] MEDS: sodium chloride 0.9% 1,000 ML 75 ML IV (02:52)
[2024-01-10] MEDS: heparin 5,000 unit/mL INJ 1 mL 5000 UNIT SUBCUT ×2 (02:52→17:11)
[2024-01-10 02:53] LABS: Troponin(5th) Baseline 66 ng/L (0-10)
[2024-01-10] MEDS: acetaminophen 325 mg Tablet 650 MG PO ×3 (02:55→17:10)
[2024-01-10] MEDS: ondansetron 2 mg/ML SDV 2 mL 4 MG IVP (02:56)
[2024-01-10 02:58] LABS: Thyroid Stimulating Hormone 0.85 uIU/mL (0.27-4.20)
[2024-01-10 03:40] LABS: Amphetamines Screen Urine Positive (Negative); Barbiturates Screen Urine Negative (Negative); Benzodiazepines Screen Urine Negative (Negative); Cocaine Screen Urine Negative (Negative); Opiate Screen Urine Positive (Negative); PCP Screen Urine Negative (Negative); THC Screen Urine Negative (Negative)
--- NOTE | 2024-01-10 03:47 | ECG_ITS ---
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 Measurements Intervals [place] Rate: 88 P: 48 MD: 159 QRS: 4 QRSD: 89 T: 103 QT: 420 QTc: 509 Interpretive Statements SINUS RHYTHM LEFT VENTRICULAR HYPERTROPHY AND ST-T CHANGE [VOLTAGE CRITERIA PLUS ST/T ABNORMALITY] Compared to ECG 11/02/2017 13:55:03 Left ventricular hypertrophy now present ST (T wave) deviation now present Electronically Signed On 01-10-2024 12:55:07 CDT by Jarrell Steiner M.D. [id number]
--- NOTE | 2024-01-10 04:36 | PC.NURSE ---
Direct admitted 48 year old female, from [facility], transported via EMS, arrived at 0010. Upon arrival pt was fidgety, spoke clearly but rapidly, and followed directions without difficulty. During assessment pt stated her complaint was a throbbing headache that lasted four days. Stated she had previously been diagnosed with hypertension but transportation was an issue and was unable to obtain medications or attend follow up appointments. Stated she occasionally had headaches but nothing out of the ordinary and had been controlled with Tylenol. During assessment pt stated she occasionally smoked marijuana and occasionally took a couple hits of meth. Stated she last used meth a couple days ago to see if her headache would resolve but it made it worse. During suicide assessment patient clarified that she had thought of suicide but never considered acting on it. Stated she had been admitted previously for psych care and had reported she was suicidal at that time, but only said that because she knew they would not be able to discharge her if she said that. Spoke about her history of schizophrenia and bipolar disorder, and stated she did not want to continue taking the medications prescribed for treatment because she did not like the way they made her feel and she was able to distinguish between reality and delusions or bad thoughts . Denied any delusions or hallucinations at present and stated her mood was fine .
[2024-01-10 06:27] LABS: Troponin 5 2HR 91.84 ng/L (0-10)
[2024-01-10 06:32] LABS: Magnesium 1.9 mg/dL (1.7-2.3)
[2024-01-10 06:35] LABS: Troponin 5 2HR Delta 25.84 ABS# (0-10)
--- NOTE | 2024-01-10 07:47 | ECG_ITS ---
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 Measurements Intervals [place] Rate: 88 P: 43 CT: 159 QRS: 0 QRSD: 104 T: 120 QT: 421 QTc: 512 Interpretive Statements SINUS RHYTHM POSSIBLE LEFT ATRIAL ENLARGEMENT [-0.1mV P-WAVE IN V1/V2] LEFT VENTRICULAR HYPERTROPHY AND ST-T CHANGE [VOLTAGE CRITERIA PLUS ST/T ABNORMALITY] Compared to ECG 01/10/2024 05:58:54 No significant changes Electronically Signed On 01-10-2024 12:54:39 CDT by Jarrell Steiner M.D. [id number]
--- NOTE | 2024-01-10 08:00 | XR_ITS ---
WS: [id number] PORTABLE CHEST HISTORY: pulm edema COMPARISON: 01/10/2024 Mild pulmonary hyperinflation. No areas of consolidation. Pulmonary vasculature is more prominent megan n on the prior study. No dense consolidation or pneumonia. No pleural effusion or pneumothorax. Cardiac size: Normal. Mediastinum/Aorta: Mild atherosclerosis aorta. Remote posterior RIGHT rib fractures. XR/XR chest 1V portable [id number] IMPRESSION: 1. New, mild interstitial edema. No pneumonia. 2. Mild atherosclerosis aorta.
[2024-01-10] MEDS: nicotine 21 mg Patch 1 PATCH TRANSDERMA (08:53)
[2024-01-10] MEDS: amlodipine 10 mg Tablet PO (08:53)
[2024-01-10 08:56] LABS: Troponin 5 6HR 95.91 ng/L (0-10)
[2024-01-10 09:00] LABS: Troponin 5 6HR Delta 29.91 ng/L (0-12)
--- NOTE | 2024-01-10 09:32 | PM.MISC ---
Miscellaneous Note Purpose of Documentation: Overnight labs and H&P report reviewed. Patient has remained off Cardene drip since admission. Blood pressure this morning at 122/73. Complains of intermittent headache but otherwise has remained asymptomatic. Denies chest pain. Troponins noted to be mildly elevated 66--> 91---> 95 with delta troponins of 25 and 29 at 2 and 6 hours respectively. Currently undergoing echocardiogram at bedside. Results will be reviewed once available. Discontinue IV fluids as ordered overnight. Patient has not yet received any infusion. She is appearing to be clinically euvolemic. Oxygen saturations noted to be between 87-95, some motion artifact suspected. Ordered formal home O2 eval. Based on echocardiogram,may plan on stress test in AM. CT head reviewed from outside hospital. No acute intracranial abnormalities. Transfer out of ICU
--- NOTE | 2024-01-10 10:12 | PC.NURSE ---
EKG : info recorded under cardiac monitoring assessment.
[2024-01-10 10:18] LABS: NT Pro B Type Natriuretic Pept 13430 pg/mL (0-125)
--- NOTE | 2024-01-10 14:10 | PC.NURSE ---
Addendum entered by Lakia Ramsey RN 01/10/24 18:51: Pt also stated her meth has come from the same place. She continued that her tries it first to make sure it is ok for her to take. Original Note: Spoke with patient about Amlodipine and probable prescription at discharge. Pt stated she has Medicaid and she will be able to afford her prescription.
--- NOTE | 2024-01-10 15:00 | PC.SOCIAL ---
Pt did not qualify for O2 Pt had a home O2 eval done & did not qualify for O2.
[2024-01-10] MEDS: FUROsemide 10 mg/mL SDV 2mL 20 MG IVP (17:11)
[2024-01-10] MEDS: hyDRALAzine 20 mg/mL INJ 1 mL 10 MG IVP (17:19)
--- NOTE | 2024-01-10 18:29 | PC.NURSE ---
Shift summary Pt has spent most of the day resting with her eyes closed . She ambulates without difficulty to restroom. No chest pain per patient. She has complained of a mild headache, acetaminophen admin twice this shift. She was afebrile. Sinus rhtyhm noted on monitor. She was started on 10mg amlodipine daily. She had a Sytolic pressure of 181 this evening, 10mg of PRN Hydralazine admin.She has a very good appetite ,eats all the meals and snacks. Urine outpt of 900ml this shift.
--- NOTE | 2024-01-10 18:46 | PC.NURSE ---
Pt stated it was ok for Fabiano and Vicky Santos to get her info, they will be providing her rider home tomorrow. to all back later with their phone number.
[2024-01-11] VITALS (30 sets, daily range): BP systolic 124–191; BP diastolic 62–112; PULSE 75–122; RESP 14–49; TEMP 36.3–36.8; O2SAT 90–99
[2024-01-11] MEDS: heparin 5,000 unit/mL INJ 1 mL 5000 UNIT SUBCUT ×2 (01:03→12:49)
[2024-01-11] MEDS: hyDRALAzine 20 mg/mL INJ 1 mL 10 MG IVP ×5 (01:03→21:42)
[2024-01-11] MEDS: acetaminophen 325 mg Tablet 650 MG PO ×3 (01:10→14:26)
--- NOTE | 2024-01-11 03:17 | PC.NURSE ---
Patient has ongoing complaints of headache, following tylenol and tx for hypertension. Contacted Dr. Nuñez and made aware, new order received for Ibuprofen 400 mg x1.
[2024-01-11] MEDS: ibuprofen 200 mg Tablet 400 MG PO (03:44)
[2024-01-11 05:42] LABS: Basophils # 0.1 10^3/uL (0.0-0.1); Basophils % 0.7 %; Eosinophils # 0.2 10^3/uL (0.0-0.8); Eosinophils % 1.7 %; Hematocrit 43.9 % (36-47); Lymphocytes # 2.2 10^3/uL (0.8-4.8); Lymphocytes % 24.7 %; Monocytes # 0.4 10^3/uL (0.2-0.9); Neutrophils # 5.93 10^3/uL (1.8-7.7); Neutrophils % 67.7 %; Nucleated Red Blood Cells % 0 %; Platelet Count 167 10^3/cmm (157-399); Red Blood Count 4.67 10^6/uL (3.85-5.65); Red Cell Distribution Width 13.2 % (12.1-15.1); White Blood Count 8.77 10^3/uL (3.29-11.43)
--- NOTE | 2024-01-11 05:59 | PC.NURSE ---
Patient with elevated blood pressures, has received PRN hydralazine x2, continues to complain of headache, sates pain level 7/10 now, tearful, and increasingly anxious with spastic movements of upper extremities. Contacted Dr. Nuñez and made aware, new order received for 1 mg Ativan IV x1.
[2024-01-11 06:07] LABS: Alanine Aminotransferase 17 U/L (0-33); Albumin Level 3.7 g/dL (3.5-5.2); Alkaline Phosphatase 92 U/L (35-105); Anion Gap 15.6 (5-19); Aspartate Amino Transferase 22 U/L (0-32); Blood Urea Nitrogen 36 mg/dL (6-20); Calcium 9.1 mg/dL (8.5-10.5); Carbon Dioxide 28 mmol/L (22-29); Chloride 98 mmol/L (98-107); Globulin 3.4 g/dL (1.3-4.6); Glomerular Filtration Rate 31.8 mL/min (90-130); Glucose 109 mg/dL (65-115); Osmolality Calculated 295 mOsm/kg (285-295); Potassium 3.6 mmol/L (3.5-5.1); Sodium 138 mmol/L (136-145); Total Bilirubin 0.3 mg/dL (0.15-1.2); Total Protein 7.1 g/dL (6.6-8.7)
[2024-01-11] MEDS: LORazepam 2 mg/mL INJ 10 mL MDV 1 MG IVP (06:14)
[2024-01-11] MEDS: nicotine 21 mg Patch 1 PATCH TRANSDERMA (08:00)
[2024-01-11] MEDS: amlodipine 10 mg Tablet PO (08:01)
[2024-01-11] MEDS: morphine 4 mg/mL SDV 1 mL 2 MG IVP ×2 (08:16→18:43)
--- NOTE | 2024-01-11 08:24 | PC.NURSE ---
Pt upset rocking and rubbing her head. She said she can't take this headache anymore. Dr Holcomb notified received and admin 1 tie order of Morphine 2mg IVP. This nurse call back into room immediately after. Pt stated she had instant relief, her headache is better.
--- NOTE | 2024-01-11 09:58 | ECG_ITS ---
Test Date: 2024-01-12 Pat Name: Yamileth Feliciano Department: Room: 252 Gender: Female Medical Oncologist: Jerrica Goldstein : 1975 Requested By: Cintia Holcomb Order Number: [id number] Temo MD: Bradley Balderas M.D. Interpretive Statements NAME OF STUDY: LEXISCAN SESTAMIBI STRESS TEST INDICATION: Elevated troponin, angina , PROCEDURE: At the baseline, the EKG revealed normal sinus rhythm with half to [address] depressions in leads V4 to V6, lead II and aVF. Some nonspecific ST-T changes were noted in the other leads. The baseline heart was 73 bpm with a blood pressue of 158/82 mm of Hg Lexiscan was infused over a period of 20 seconds. A total of 0.4 milligrams of Lexiscan was infused. The stress phase was continued for a total of 5 minutes. Heart rate at the end of the stress phase was 105 bpm with a blood pressure 159/92 mm of Hg. The EKG at the peak infusion revealed [address] depressions in lead V4 to V6, II, III and aVF. Nonspecific ST-T changes were noted in the other leads. Sestamibi was injected 20 seconds after the Lexiscan infusion. Heart rate at the end of the recovery phase was 87 bpm with a blood pressure of 170/68 mm of Hg. the EKG showed persistent ST-T changes in the inferior and anterolateral leads. Patient was given aminophylline 25 mg IV at the end of the stress phase. Patient was complaining of some shortness of breath in the recovery phase. CONCLUSION: 1. Abnormal EKG response to Lexiscan infusion, suggesting anterolateral/inferior wall ischemia 2. No LexiScan induced chest pain or cardiac arrhythmia 3. Normal blood pressure and heart rate response 4. Sestamibi/sestamibi perfusion scan pending; see separate report. Electronically Signed On 01-12-2024 9:19:00 CDT by Bradley Balderas M.D. [id number]
--- NOTE | 2024-01-11 15:33 | PC.NURSE ---
Report called to [facility]. Report given to DANICA Siddiqui
--- NOTE | 2024-01-11 15:55 | PC.NURSE ---
P transferred to 252-1. Further updates given to EVARISTO Enamorado and DANICA Siddiqui
--- NOTE | 2024-01-11 17:08 | P.PN_ITS ---
Subjective 2 Subjective: Blood pressure currently between 1 50-1 80 systolic. Also noted to have sinus tachycardia with heart rate ranging between 100-1 10. Patient states she feels better today except for a headache which was relieved by one-time dose of morphine. Saturating well on room air today. Clinically appears to be euvolemic. Worsening creatinine at 1.7, however urine output currently at 1500 cc. Medications: Reviewed: Yes Vitals/I&O/Wt Last Vital Signs Temp 98.3 F 01/11/24 16:00 Pulse 106 H 01/11/24 16:00 Resp 20 H 01/11/24 16:00 BP 168/81 01/11/24 16:00 Pulse Ox 95 01/11/24 16:00 O2 Del Method Room Air 01/11/24 16:00 01/11/24 01/11/24 01/11/24 06:59 14:59 22:59 Intake Total 480 / 2110 1150 / 1150 Output Total 1500 / 2400 Balance -1020 / -290 1150 / 1150 Weight last 48 hrs Weight 88.224 kg Weight 88.224 kg Weight 86.183 kg Weight 86.183 kg Weight 86.5 kg Physical Exam 2 Narrative: General: No acute distress, AO x3 HEENT: PERRLA, pupils bilaterally equal and reactive, pallors not present Chest: Normal vesicular breath sounds, no added sounds, equal good air entry bilaterally CVS: S1-S2 regular, no murmurs, no tachycardia, no gallops, no rubs Abdomen: Soft, nontender, no organomegaly, bowel sounds present Neuro: No focal deficits, no facial deformity, AO x3, power 5/5 in all limbs Data 01/11/24 05:22 01/11/24 05:22 A&P Assessment and plan (1) Bipolar disorder: Qualifiers: Active/Remission status: in partial remission Most recent bipolar episode type: most recent episode unspecified type Qualified Code(s): F31.70 - Bipolar disorder, currently in remission, most recent episode unspecified (2) Amphetamine use disorder, severe, dependence: (3) Cannabis use disorder, mild, abuse: (4) Hypertensive emergency: (5) RADHA (acute kidney injury): (6) Elevated brain natriuretic peptide (BNP) level: Plan #Hypertensive emergency #RADHA probably secondary to above #Headache #Bipolar disorder #Schizophrenia #Smoker #Methamphetamine abuse #Noncompliance to medications -Blood pressure on arrival to [facility] ER 237/134. Patient given lisinopril, Lasix, placed on Cardene drip. Pressure lowered down to 119/70 within 7 hours. Nicardipine drip stopped and patient transferred over to [facility]. I would hold off on restarting the drip at this time. Pressure here is 127/75. ? Will place on amlodipine 10 daily for now. ? Will need to add more medications warranted. ? Patient may be having hypertensive emergency secondary to methamphetamine use. She says she used meth in efforts to resolve her headache. ? Has not had a migraine in over 20 years -BNP at outside facility 13,000. - Check urine drug screen - Check EKG - Check cbc, cmp, mag in AM - Check ECHO - Check chest xray - Cr 1.47 at outside facility - place on ns 75 cc /hr - nicotine patch ordered - Obtain cbc, cmp, mag Full Code - Hep subc BID for DVT PPX Plan for today January 11, 2024. Patient's blood pressure is better controlled, however systolic still ranging between 1 50-1 80 on occasion. Additionally noted to have sinus tachycardia. Continue amlodipine 10 mg daily. Add metoprolol 25 mg p.o. twice daily. Would avoid any further doses of GREY inhibitors or ARB's given RADHA. Creatinine at 1.7. Suspect this may be related to hypertensive crisis and receiving GREY inhibitors previously for acute blood pressure management. Additionally discussed with patient that hypertensive crisis, tachycardia and RADHA may have been precipitated by methamphetamine abuse. Today her headache is relieved with one-time dose of morphine. She received Lasix yesterday, today appearing to be clinically euvolemic. Echocardiogram was completed which showed moderate LVH. LVEF of 59%. No regional wall motion abnormalities. Grade 1 diastolic dysfunction. Given elevated troponins and mild ST-T depression (unclear chronicity ) noted yesterday though without significant delta, possibility of angina not excluded at this time. Will proceed with cardiac stress test in am. Attestations 2 Medical Necessity Statement*: cardiac stress test in am, add antihypertensive Coding Level of Care Code Acute Code for Chg Fwd Moderate MDM includes number and complexity of problems actively addressed during encounter, amount and/or complexity of data reviewed/ordered and described risk of complication, morbidity or mortality of management as documented and High MDM includes number and complexity of problems actively addressed during encounter, amount and/or complexity of data reviewed/ordered and described risk of complication, morbidity or mortality of management as documented Diagnoses Bipolar disorder F31.70 Active/Remission status: in partial remission Most recent bipolar episode type: most recent episode unspecified type Amphetamine use disorder, severe, dependence F15.20 Cannabis use disorder, mild, abuse F12.10 Hypertensive emergency I16.1 RADHA (acute kidney injury) N17.9 Elevated brain natriuretic peptide (BNP) level R79.89
[2024-01-11] MEDS: metoprolol tartrate 25 mg Tablet PO (20:35)
[2024-01-12] VITALS (13 sets, daily range): BP systolic 110–170; BP diastolic 68–89; PULSE 54–86; RESP 16–20; TEMP 36.5–36.8; O2SAT 92–96
[2024-01-12] MEDS: heparin 5,000 unit/mL INJ 1 mL 5000 UNIT SUBCUT ×2 (02:08→13:29)
--- NOTE | 2024-01-12 07:00 | NMCV_ITS ---
NM wilner perf SPECT r/s* [id number] Yamileth Feliciano Age: 48 Gender: F : 1975 Exam Date: 01/12/2024 07:00 Ordering Phys: Cintia Holcomb MD Technologist: STEWART Hester Exam Location: [facility] Indications: HTN, SOB STRESS TEST Please see separate stress test report in [facility] for full findings IMAGE PROTOCOL Rest/Stress 1 Lexiscan Day Radiopharmaceutical Dose (mCi) Administration Site Administered by Rest: Tc-99m 10.8 IV STEWART Hester Sestamibi Stress:Tc-99m 32.6 IV STEWART Hester Sestamibi Rest: 12-Jan-2024 60 Discovery 630 Stress: 12-Jan-2024 30 Discovery 630 0.4mg Lexiscan. Supine position only as patient was unable to lay prone. SPECT RESULTS Technical Quality: Good Raw Data Analysis: Breast attenuation Image Corrections: No attenuation or motion correction applied Summed Stress Score: 2 Summed Rest Score: 0 Summed Difference Score: 2 PERFUSION FINDINGS A small area of moderately decreased tracer uptake was noted in the mid anterolateral region. Complete reversibility was noted at rest. FUNCTIONAL RESULTS (calculated via Gated SPECT) Stress Image LV EF (%): 58 Stress EDV (mL):149 TID: 1.46 Stress ESV (mL):63 FUNCTIONAL FINDINGS: Segmental wall motion analysis revealing no gross wall motion abnormalities IMPRESSIONS 1. Myocardial perfusion imaging revealing a small area of reversible defect in the mid anterolateral region, suggestive of ischemia in the distribution of the left circumflex artery. The elevated transient ischemic dilatation ratio 1.46 also may suggest endocardial ischemia 2. Normal LV ejection fraction of 58%. 3. LV wall motion analysis revealing no gross wall motion abnormalities. 4. Mildly dilated LV cavity with an end-systolic volume of 63 mL. No similar previous studies are available for comparison Dr Bradley Balderas MD [facility] (Electronically Signed) Final Date: 12 Jan 2024 09:12 S
[2024-01-12] MEDS: regadenoson 0.4 Mg/5 ml Syringe 0.400000000000000022 MG IVP (07:48)
[2024-01-12] MEDS: aminophylline 25 mg/mL SDV 10 mL IVP (07:59)
[2024-01-12] MEDS: amlodipine 10 mg Tablet PO (09:18)
[2024-01-12] MEDS: metoprolol tartrate 25 mg Tablet PO ×2 (09:18→20:42)
[2024-01-12] MEDS: nicotine 21 mg Patch 1 PATCH TRANSDERMA (09:18)
[2024-01-12] MEDS: morphine 4 mg/mL SDV 1 mL 2 MG IVP ×2 (09:19→21:24)
[2024-01-12 10:51] LABS: Basophils % 0.5 %; Eosinophils # 0.1 10^3/uL (0.0-0.8); Eosinophils % 0.7 %; Hematocrit 43.3 % (36-47); Lymphocytes # 1.5 10^3/uL (0.8-4.8); Lymphocytes % 19.7 %; Mean Corpuscular HGB Conc 33.3 g/dL (30-55); Mean Corpuscular Hemoglobin 31.3 pg (27-33); Mean Corpuscular Volume 94.1 fl (85-98); Mean Platelet Volume 10.1 fL (7.4-10.4); Monocytes # 0.3 10^3/uL (0.2-0.9); Monocytes % 4.5 %; Neutrophils # 5.62 10^3/uL (1.8-7.7); Neutrophils % 74.3 %; Nucleated Red Blood Cells % 0 %; Platelet Count 175 10^3/cmm (157-399); Red Cell Distribution Width 13.4 % (12.1-15.1); White Blood Count 7.56 10^3/uL (3.29-11.43)
[2024-01-12 11:10] LABS: Alanine Aminotransferase 17 U/L (0-33); Albumin Level 3.7 g/dL (3.5-5.2); Alkaline Phosphatase 66 U/L (35-105); Anion Gap 12.5 (5-19); Aspartate Amino Transferase 22 U/L (0-32); Blood Urea Nitrogen 26 mg/dL (6-20); Calcium 9.6 mg/dL (8.5-10.5); Carbon Dioxide 28 mmol/L (22-29); Chloride 98 mmol/L (98-107); Creatinine Clr Calc Pharmacy 53.0266; Globulin 3.3 g/dL (1.3-4.6); Glomerular Filtration Rate 39.8 mL/min (90-130); Glucose 116 mg/dL (65-115); Osmolality Calculated 286 mOsm/kg (285-295); Potassium 3.5 mmol/L (3.5-5.1); Sodium 135 mmol/L (136-145); Total Bilirubin 0.3 mg/dL (0.15-1.2)
--- NOTE | 2024-01-12 11:21 | P.CONIM_ITS ---
Providers/Reason For Consult 2 Consulting Physician/Specialty*: Jarrell Steiner MD/ Cardiology Reason for Consult*: Troponin elevation/abnormal stress test Requesting Physician: Dr Holcomb Attending Physician: Cintia Holcomb MD History of Present Illness History of Present Illness Yamileth Feliciano is a 48 year old female with past medical history of amphetamine use, family history of CAD, smoking who presented to hospital with hypertensive emergency. Blood pressure was over 220. Had neck pain and jaw discomfort. Minimal chest discomfort. Creatinine was elevated. Initial troponin was elevated at 66 and trended up to 91 at 2 hours. Stress test was performed that showed ischemia in left circumflex artery territory. EKG showing normal sinus rhythm with ST depressions seen. Review of Systems 2 Narrative: CONSTITUTIONAL: No fever chills weight loss or gain or night sweats. [] HEENT: Normocephalic, atraumatic.[] RESPIRATORY: No cough, sputum, hemoptysis or wheezing.[] CARDIOVASCULAR: Chest pressure, jaw discomfort GI: no nausea vomiting diarrhea. [] DIGESTER CAPPER: No numbness, tingling, weakness or loss of function in any part of the body. [] MUSCULOSKELETAL: No knee or joint pain or rashes. [] Medications/Allergies Home Medications Medication Instructions Recorded Confirmed Last Taken Type No Known Home Medications 01/10/24 01/10/24 Unknown History Allergies Allergy/AdvReac Type Severity Reaction Status Date / Time hydromorphone [From Dilaudid] Allergy ADR-Migrain Verified 01/10/24 01:19 e Current Medications Generic Name Dose Route Start Last Admin Trade Name Freq PRN Reason Stop Dose Admin Acetaminophen 650 mg 01/10/24 01:32 01/11/24 14:26 Acetaminophen 325 Mg Tablet PO 650 mg Q6H PRN Administration MILD PAIN Aminophylline 25 mg 01/12/24 06:33 01/12/24 07:59 Aminophylline 25 Mg/Ml Sdv 10 Ml IVP 01/13/24 06:32 25 mg Q2M PRN Administration see dose instructions Amlodipine Besylate 10 mg 01/10/24 08:00 01/12/24 09:18 Amlodipine 10 Mg Tablet PO 10 mg DAILY PARDEEP Administration Heparin Sodium (Porcine) 5,000 unit 01/10/24 01:45 01/12/24 02:08 Heparin 5,000 Unit/Ml Inj 1 Ml SUBCUT 5,000 unit Q12H PARDEEP Administration Hydralazine HCl 10 mg 01/10/24 16:26 01/11/24 21:42 Hydralazine 20 Mg/Ml Inj 1 Ml IVP 10 mg Q4H PRN Administration SBP > 160 Metoprolol Tartrate 25 mg 01/11/24 21:00 01/12/24 09:18 Metoprolol Tartrate 25 Mg Tablet PO 25 mg BID@0900,2100 PARDEEP Administration Morphine Sulfate 2 mg 01/11/24 18:11 01/12/24 09:19 Morphine 4 Mg/Ml Sdv 1 Ml IVP 2 mg Q12H PRN Administration SEVERE PAIN Nicotine 1 patch 01/10/24 09:00 01/12/24 09:18 Nicotine 21 Mg Patch TRANSDERMA 1 patch DAILY PARDEEP Administration Ondansetron HCl 4 mg 01/10/24 01:32 01/10/24 02:56 Ondansetron 2 Mg/Ml Sdv 2 Ml IVP 4 mg Q6H PRN Administration NAUSEA AND VOMITING PFSH Acute 2 PFSH: Social History Smoking and tobacco/nicotine status: current every day tobacco/nicotine user cigarettes Packs smoked per day: 1.5 Years cigarettes smoked: 30 Quit status (tobacco/nicotine): not considering quitting Second hand smoke exposure: Yes Current gender identity: Female Female Reproductive History: Date of last menstrual period: 05/12/04 Vitals/I&O/Wt Last Vital Signs Temp 97.7 F 01/12/24 11:05 Pulse 71 01/12/24 11:05 Resp 18 01/12/24 11:05 BP 142/79 01/12/24 11:05 Pulse Ox 94 01/12/24 11:05 O2 Del Method Room Air 01/12/24 11:05 01/11/24 01/12/24 01/12/24 22:59 06:59 14:59 Intake Total 840 / 1989 Output Total 350 / 350 Balance 490 / 1640 0 / 1640 Weight last 48 hrs Weight 196 lb 9.6 oz Weight 196 lb 9.6 oz Weight 194 lb 8 oz Weight 194 lb 8 oz Physical Exam 2 Narrative: GENERAL: Patient is alert, awake and oriented x3. [] NECK: No jugular vein distension. [] HEENT: No cyanosis. No icterus. No pallor. [] HEART: Regular S1 and S2. No murmur, rub or gallop. [] LUNGS: Clear to auscultate bilaterally. [] CENTRAL NERVOUS SYSTEM: Grossly nonfocal. [] EXTREMITIES: Lower extremities with 1+ edema bilaterally. Data 01/13/24 04:59 01/13/24 04:59 A&P Assessment and plan (1) Hypertensive emergency: (2) Abnormal stress test: (3) Troponin level elevated: (4) Elevated brain natriuretic peptide (BNP) level: (5) RADHA (acute kidney injury): Plan Patient has multiple risk factors for CAD. Troponin elevation could be secondary to type II IA. However stress test is abnormal. Will proceed with coronary angiogram with possible PCI. Risks and effects of the procedure have been discussed. Patient wants to proceed with the procedure. Will continue fluids. NPO past midnights. ECHO shows normal LV systolic function Thank you for involving us with care of this patient. We will continue to follow. Please call with questions. Consult Attestations 2 Medical Necessity Statement: Care expected to cross 2 midnights. Coding Level of Care Code Acute Code for Chg Fwd Diagnoses Hypertensive emergency I16.1 Abnormal stress test R94.39 Troponin level elevated R79.89 Elevated brain natriuretic peptide (BNP) level R79.89 RADHA (acute kidney injury) N17.9
--- NOTE | 2024-01-12 14:04 | P.PN_ITS ---
Subjective 2 Subjective: Patient underwent stress test today which was abnormal, showing reversible defect in the distribution of the LCx territory. Currently denies any chest pain. Creatinine improving today at 1.4. Urine output not accurately charted since leaving the ICU. Medications: Reviewed: Yes Vitals/I&O/Wt Last Vital Signs Temp 97.7 F 01/12/24 11:05 Pulse 71 01/12/24 11:05 Resp 18 01/12/24 11:05 BP 142/79 01/12/24 11:05 Pulse Ox 94 01/12/24 11:05 O2 Del Method Room Air 01/12/24 11:05 01/11/24 01/12/24 01/12/24 22:59 06:59 14:59 Intake Total 840 / 1990 0 / 1989 360 / 360 Output Total 350 / 350 Balance 490 / 1640 0 / 1640 360 / 360 Weight last 48 hrs Weight 89.176 kg Weight 89.176 kg Weight 88.224 kg Weight 88.224 kg Physical Exam 2 Narrative: General: No acute distress, AO x3 HEENT: PERRLA, pupils bilaterally equal and reactive, pallors not present Chest: Normal vesicular breath sounds, no added sounds, equal good air entry bilaterally CVS: S1-S2 regular, no murmurs, no tachycardia, no gallops, no rubs Abdomen: Soft, nontender, no organomegaly, bowel sounds present Neuro: No focal deficits, no facial deformity, AO x3, power 5/5 in all limbs Data 01/12/24 10:40 01/12/24 10:40 Other data: Patient: Yamileth Feliciano Unit #: [id number] : 1975 Age/Sex: 48 / F ADM Date: 01/10/24 Loc: [facility] Room/Bed: [facility] Attending Dr: Cintia Holcomb MD Ordering Provider/Ordering MD: Cintia Holcomb MD Date of Service: 01/12/24 Procedure(s): NM wilner perf SPECT r/s* [id number] Accession Number(s): [id number] Report Number: [id number] NM wilner perf SPECT r/s* [id number] Yamileth Feliciano Age: 48 Gender: F : 1975 Exam Date: 01/12/2024 07:00 Ordering Phys: Cintia Holcomb MD Technologist: STEWART Hester Exam Location: [facility] Indications: HTN, SOB STRESS TEST [facility] IMAGE PROTOCOL Rest/Stress 1 Lexiscan Day Radiopharmaceutical Dose (mCi) Administration Site Administered by Rest: Tc-99m 10.8 IV STEWART Hester Sestamibi Stress:Tc-99m 32.6 IV STEWART Hester Sestamibi Rest: 12-Jan-2024 60 Discovery 630 Stress: 12-Jan-2024 30 Discovery 630 0.4mg Lexiscan. Supine position only as patient was unable to lay prone. SPECT RESULTS Technical Quality: Good Raw Data Analysis: Breast attenuation Image Corrections: No attenuation or motion correction applied Summed Stress Score: 2 Summed Rest Score: 0 Summed Difference Score: 2 PERFUSION FINDINGS A small area of moderately decreased tracer uptake was noted in the mid anterolateral region. Complete reversibility was noted at rest. FUNCTIONAL RESULTS (calculated via Gated SPECT) Stress Image LV EF (%): 58 Stress EDV (mL):149 TID: 1.46 Stress ESV (mL):63 FUNCTIONAL FINDINGS: Segmental wall motion analysis revealing no gross wall motion abnormalities IMPRESSIONS 1. Myocardial perfusion imaging revealing a small area of reversible defect in the mid anterolateral region, suggestive of ischemia in the distribution of the left circumflex artery. The elevated transient ischemic dilatation ratio 1.46 also may suggest endocardial ischemia 2. Normal LV ejection fraction of 58%. 3. LV wall motion analysis revealing no gross wall motion abnormalities. 4. Mildly dilated LV cavity with an end-systolic volume of 63 mL. No similar previous studies are available for comparison A&P Assessment and plan (1) Bipolar disorder: Qualifiers: Active/Remission status: in partial remission Most recent bipolar episode type: most recent episode unspecified type Qualified Code(s): F31.70 - Bipolar disorder, currently in remission, most recent episode unspecified (2) Amphetamine use disorder, severe, dependence: (3) Cannabis use disorder, mild, abuse: (4) Hypertensive emergency: (5) RADHA (acute kidney injury): (6) Elevated brain natriuretic peptide (BNP) level: Plan #Hypertensive emergency #RADHA probably secondary to above #Headache #Bipolar disorder #Schizophrenia #Smoker #Methamphetamine abuse #Noncompliance to medications -Blood pressure on arrival to [facility] ER 237/134. Patient given lisinopril, Lasix, placed on Cardene drip. Pressure lowered down to 119/70 within 7 hours. Nicardipine drip stopped and patient transferred over to [facility]. I would hold off on restarting the drip at this time. Pressure here is 127/75. ? Will place on amlodipine 10 daily for now. ? Will need to add more medications warranted. ? Patient may be having hypertensive emergency secondary to methamphetamine use. She says she used meth in efforts to resolve her headache. ? Has not had a migraine in over 20 years -BNP at outside facility 13,000. - Check urine drug screen - Check EKG - Check cbc, cmp, mag in AM - Check ECHO - Check chest xray - Cr 1.47 at outside facility - place on ns 75 cc /hr - nicotine patch ordered - Obtain cbc, cmp, mag Full Code - Hep subc BID for DVT PPX Plan for today January 11, 2024. Patient's blood pressure is better controlled, however systolic still ranging between 1 50-1 80 on occasion. Additionally noted to have sinus tachycardia. Continue amlodipine 10 mg daily. Add metoprolol 25 mg p.o. twice daily. Would avoid any further doses of GREY inhibitors or ARB's given RADHA. Creatinine at 1.7. Suspect this may be related to hypertensive crisis and receiving GREY inhibitors previously for acute blood pressure management. Additionally discussed with patient that hypertensive crisis, tachycardia and RADHA may have been precipitated by methamphetamine abuse. Today her headache is relieved with one-time dose of morphine. She received Lasix yesterday, today appearing to be clinically euvolemic. Echocardiogram was completed which showed moderate LVH. LVEF of 59%. No regional wall motion abnormalities. Grade 1 diastolic dysfunction. Given elevated troponins and mild ST-T depression (unclear chronicity ) noted yesterday though without significant delta, possibility of angina not excluded at this time. Will proceed with cardiac stress test in am. Plan for today January 12, 2024. Systolic blood pressure ranging between 1 40-1 70. Heart rate is better controlled after addition of metoprolol 25 mg p.o. twice daily, thus far has had 2 doses. Needing intermittent doses of hydralazine, however last taken at 9 PM overnight. Home monitor blood pressure trend today and assess need to add other oral medications. Creatinine improving at 1.4 Stress test abnormal today revealing a small area of reversible defect in the mid anterolateral region, suggestive of ischemia in the distribution of the left circumflex artery. Cardiology consult requested. Start aspirin 81 mg p.o. daily, atorvastatin 40 mg p.o. daily. Check lipid panel and HbA1c for other modifiable risk factors Attestations 2 Medical Necessity Statement*: Abnormal stress test. Needs continued admission for cardiology assessment, possible angiogram tomorrow. Coding Level of Care Code Acute Code for [facility] Fwd Diagnoses Bipolar disorder F31.70 Active/Remission status: in partial remission Most recent bipolar episode type: most recent episode unspecified type Amphetamine use disorder, severe, dependence F15.20 Cannabis use disorder, mild, abuse F12.10 Hypertensive emergency I16.1 RADHA (acute kidney injury) N17.9 Elevated brain natriuretic peptide (BNP) level R79.89
[2024-01-12 14:44] LABS: Chol HDL Ratio 2.53 mg/dL (0.0-4.40); Cholesterol 152 mg/dL (0-200); HDL Cholesterol 60 mg/dL (60-100); LDL Cholesterol Calculated 61 mg/dL (50-129); LDL HDL Ratio 1.02 RATIO (0.00-3.22); Triglycerides 154 mg/dL (0-150)
[2024-01-12 14:47] LABS: Estmated Average Glucose 100; Hemoglobin A1C 5.1 % (4.0-6.0)
[2024-01-12] MEDS: aspirin 81 mg EC Tablet PO (15:45)
--- NOTE | 2024-01-12 18:52 | PC.NURSE ---
Called report to Yessica to [facility]
[2024-01-12] MEDS: atorvastatin 40 mg Tablet PO (20:42)
[2024-01-13] VITALS (15 sets, daily range): BP systolic 114–158; BP diastolic 42–94; PULSE 49–94; RESP 16–73; TEMP 36.5–36.8; O2SAT 92–96
[2024-01-13] MEDS: heparin 5,000 unit/mL INJ 1 mL 5000 UNIT SUBCUT ×2 (01:12→13:49)
[2024-01-13 05:13] LABS: Basophils % 0.6 %; Eosinophils # 0.1 10^3/uL (0.0-0.8); Eosinophils % 1.8 %; Hematocrit 41.5 % (36-47); Lymphocytes # 2.2 10^3/uL (0.8-4.8); Lymphocytes % 30.7 %; Mean Corpuscular Hemoglobin 31.1 pg (27-33); Mean Platelet Volume 10.1 fL (7.4-10.4); Monocytes # 0.4 10^3/uL (0.2-0.9); Monocytes % 5.9 %; Neutrophils # 4.36 10^3/uL (1.8-7.7); Neutrophils % 60.7 %; Nucleated Red Blood Cells % 0 %; Platelet Count 174 10^3/cmm (157-399); Red Blood Count 4.28 10^6/uL (3.85-5.65); Red Cell Distribution Width 13.5 % (12.1-15.1); White Blood Count 7.17 10^3/uL (3.29-11.43)
[2024-01-13 05:43] LABS: Alanine Aminotransferase 18 U/L (0-33); Albumin Level 3.4 g/dL (3.5-5.2); Alkaline Phosphatase 61 U/L (35-105); Aspartate Amino Transferase 23 U/L (0-32); Blood Urea Nitrogen 28 mg/dL (6-20); Calcium 9.1 mg/dL (8.5-10.5); Carbon Dioxide 28 mmol/L (22-29); Chloride 104 mmol/L (98-107); Globulin 3.2 g/dL (1.3-4.6); Glomerular Filtration Rate 39.8 mL/min (90-130); Glucose 105 mg/dL (65-115); Osmolality Calculated 298 mOsm/kg (285-295); Sodium 141 mmol/L (136-145); Total Bilirubin 0.4 mg/dL (0.15-1.2); Total Protein 6.6 g/dL (6.6-8.7)
[2024-01-13 05:44] LABS: Creatinine Clr Calc Pharmacy 53.0266
--- NOTE | 2024-01-13 07:23 | XACV_ITS ---
Exam Room: [facility] Ht: 165 cm Wt: 89 kg BSA: 2.06 m2 Gender: Female : 1975 Any Known Allergies: Other Exam Priority: Routine Procedure(s): Procedure Description: Diagnostic procedure Procedure Description: Left ventriculography Procedure Description: Coronary Angiography Procedure Description: Pressure Wire Diagnostic Cath Status: Urgent Diagnostic Findings * INDICATION: Chest pain/ abnormal stress test/ troponin elevation. * Left Main has no disease. * Right Coronary Artery has no disease. * Mid Left Anterior Descending: moderate 50% stenosis, TANIA: 3 flow. * Mid Circumflex: moderate 50% stenosis, TANIA: 3 flow. * 1st Diagonal: mild 40% stenosis, TANIA: 3 flow. * Coronary angiography shows co-dominance. Interventional Findings * Procedure detail: We engaged left main artery with XB 3.0 guide catheter. IV heparin was administered to maintain anticoagulation. After normalization, IFR wire was advanced in distal LAD. iFR value of 0.91 was obtained. As this was nonischemic, we decided to medically treat her. Then we turned attention to mid Cx artery stenosis. iFR was advanced into distal vessel. iFR value of 1 was obtained. At this time IFR wire and guide catheter were removed. Patient left the Disease And Insect Control Boss in a stable condition.. Conclusions 1. Moderate mid left circumflex artery and LAD stenosis. iFR for both vessels is negative. Medical therapy.. Recommendations * Aggressive risk factor modification and blood pressure control. * Outpatient cardiology follow up in 4 weeks. Interventional RX Recommendation: medical therapy and/or counseling Diagnostic RX Recommendation: other cardiac therapy w/o CABG/PCI Anticoagulation: Heparin Pressures Phase:Rest AO : 126 / 89 ( 109 ) @ 9:40:00 AM 143 / 88 ( 112 ) @ 9:50:00 AM 158 / 102 ( 128 ) @ 9:55:00 AM 151 / 95 ( 117 ) @ 10:05:00 AM 153 / 95 ( 118 ) @ 10:05:00 AM LV : 156 / 13 / 31 @ 10:05:00 AM 168 / 17 / 34 @ 10:05:00 AM Valves Phase:DefaultPhase AV : 15.0 @ 10:33:49 AM 15.0 @ 10:33:49 AM AV Mean Gradient: 21.0 @ 10:33:49 AM Clinical Evaluation EBL: 5mL-10mL Procedural Details Procedure Consent Obtained. Pre-Procedure Time Out. Identified patient by full name and date of as verbalized by the patient/guarantor. Does the consent match the physician's order: Yes. Accurate & Complete Informed Consent: Yes. Inpatient/Outpatient History & Physical on Chart: Yes. If H&P is completed, is and addenduem needed: No. Visualize and Verify Site with Patient/Guarantor: N/A. Relevant Radiology Images available: No. The risks, benefits, and alternatives of sedation and/or procedure were discussed by physician. The patient agrees to continue. Procedure started. Physician arrived. Patient's family unavailable. Equipment: 6F - Radial. Cardiac Cath Pack. ACIST Manifold Kit Model BT 2000. Heparinized Saline (2 units/mL), 1000 mL bag. [facility] Clinical Fraility Score: 3: Managing Well. Disease And Insect Control Boss Indications: ACS > 24 hours/abnormal stress test/CP/NSTEMI. Chest Pain Symptom Assessment: Typical Angina Symptoms. Cardiovascular Instability: No. Correct patient, site and procedure confirmed by cath team. PERRLA. Strong, equal hand glue cook bilaterally. Lungs clear x 5 lobes. IV Site on Arrival: 20 gauge in the right forearm. IV Fluids: 0.9% NaCl at KVO. 0 mL infused prior to cathode builder. Pre Procedural Pulses: bilateral dorsalis pedis was 2+. Pre Procedural Pulses: bilateral posterior tibial was Doppled. Pre Procedural Pulses: bilateral radial was 3+. Oxygen started at 2liters/min via nasal canula. right groin was prepped with chloroprep then draped in the usual sterile fashion. right radial was prepped with chloroprep then draped in the usual sterile fashion. Baseline sample Acquired. HR: 65 BPM. Physician scrubbed in. Immediate Pre-Procedure Time Out. Correct Patient: Yes; Correct Procedure: Yes; Correct Site: Yes; Correct Patient Position: Yes; Correct Supplies: Yes; Dried Flammable Prep: Yes; Blood Products Available: N/A;. Lidocaine 1% infiltrated to the right radial. Arterial access obtained. A 5 american TIG catheter in over the exchange J wire. Multiple views taken of left coronary artery. Catheter redirected to the RCA. Unable to cannulate RCA. Catheter removed over the exchange J wire. A 5 american JR4 catheter in over the exchange J wire. Multiple views taken of right coronary artery. Catheter removed over the exchange J wire. 6 american XB 3 guide catheter was inserted over the exchange J wire. iFR guidewire was advanced through the guide catheter to lesion in the mid LAD. iFR of mid LAD performed with a spot of 0.91 and a pullback of 0.9. iFR wire out. Exchange J wire in through the guide to repostion. Exchange J wire out. iFR guidewire was advanced through the guide catheter to lesion in the mid Circ. iFR of mid CX performed with a spot of 0.99 and a pullback of 1.0. iFR wire out. Guide Catheter removed over the exchange J wire. A 5 american Angled Pig catheter in over the exchange J wire. EDP Sample taken: LV 156/13,31; HR: 56 BPM; SpO2: 95%. Pullback taken: LV 168/17,34; AO 151/95(117); Mean: 21mmHg, Peak to Peak: 15mmHg, SEP: 17sec/min; HR: 59 BPM; SpO2: 97%. Catheter removed over the exchange J wire. Dr. Steiner scrubbed out. A TR Band was successful obtaining hemostatsis at the Right Radial artery insertion site. Post Procedure: Pulses reassessed and unchanged. PERRLA. Strong, equal hand glue cook bilaterally. No VTE prophylaxis required. Post-op diagnosis: Mod CX and LAD disease, non-obstructive by iFR. Complications: none. Medication's Wasted: Lidocaine 1% = 18 mL. Medication's Wasted: Nitro = 49.5 mg. Medication's Wasted: Heparin = 3000 units. Medication's Wasted: Other = Fentanyl 25 mcg. Total IV fluids: 55 mL. Estimated blood loss: 5mL-10mL. Responsiveness - Normal response to verbal stimuli; alert and oriented, PERRLA. Airway - Unaffected, no intervention required; spontaneous ventilation. Circulation: W/N/L, pulses unchanged. Nausea/Vomiting: No. Procedure completed. Patient transferred by bed to CPRU. Vital chart was stopped. Access Site Site: Right Radial artery Sheath Size: 6 Fr Hemostasis Method: TR Band Hemostasis Success: Successful Procedure Medications Start: 8:30 AM Stop: 8:30 AM Medication: Versed Amount: 1 mg Route: I.V. Start: 8:30 AM Stop: 8:30 AM Medication: Fentanyl Amount: 50 mcg Route: I.V. Start: 8:35 AM Stop: 8:35 AM Medication: Versed Amount: 1 mg Route: I.V. Start: 8:37 AM Stop: 8:37 AM Medication: Nitrogylcerin Amount: 200 mcg Route: I.A. Start: 8:39 AM Stop: 8:39 AM Medication: Heparin Amount: 5000 units Route: I.V. Start: 8:47 AM Stop: 8:47 AM Medication: Heparin Amount: 2000 units Route: I.V. Start: 8:57 AM Stop: 8:57 AM Medication: Heparin Amount: 1000 units Route: I.V. Start: 9:02 AM Stop: 9:02 AM Medication: Fentanyl Amount: 25 mcg Route: I.V. Start: 9:02 AM Stop: 9:02 AM Medication: Nitrogylcerin Amount: 300 mcg Route: I.A. I, the attending physician, have reviewed and verified all procedure medications. Yes, all medications given per verbal order History/Risk Factors Hypertension: No Dyslipidemia: No Peripheral Arterial Disease (PAD): No Myocardial Infarction (NH): No Obesity: Yes Renal Disease: No Tobacco Use: Current/Recent(w/in 1 year) Prior Interventions PCI: No CABG: No Valve Surgery: No Report Signatures Finalized by Jarrell Steiner MD on 01/17/2024 12:58 PM
[2024-01-13 07:44] LABS: HCG, Serum Qual Negative (Negative)
[2024-01-13] MEDS: amlodipine 10 mg Tablet PO (07:55)
[2024-01-13] MEDS: metoprolol tartrate 25 mg Tablet PO ×2 (07:56→20:41)
[2024-01-13] MEDS: aspirin 81 mg EC Tablet PO (07:56)
[2024-01-13] MEDS: diphenhydrAMINE 50 mg Capsule PO (07:59)
--- NOTE | 2024-01-13 08:28 | W.PM.OPSUD ---
Surgery/Procedure H&P Update DATE OF PROCEDURE: January 13, 2024 DATE H&P PERFORMED: 01/12/24 H&P UPDATE INFORMATION: I have reviewed H&P completed within last 30 days, I have examined patient prior to procedure and No changes to prior documentation PREOP DIAGNOSIS: Chest pain/ abnormal stress test/ troponin elevation PRIMARY INDICATION FOR PROCEDURE: Chest pain/ abnormal stress test/ troponin elevation PLANNED PROCEDURE: Left heart cath with possible percutaneous coronary intervention PATIENT REASSESSED PRIOR TO SEDATION, WITH NO CHANGE NOTED: Yes PHYSICAL EXAM: alert, oriented x 3, clear to auscultation bilaterally and regular rate & rhythm AIRWAY EVAL/ANESTHESIA PLAN: normal airway, ASA III, Local Anesthesia, Risks, benefits & alternatives of sedation and/or procedure discussed and Patient agrees to continue as planned ADDITIONAL INFORMATION: Moderate sedation
--- NOTE | 2024-01-13 09:20 | SUR.EXTENDED ---
Received the patient from the tailings dam laborer via wheelchair s/p Diagnostic [facility]. Patient ambulated to the cot without difficulty. A & 0 x 3. ekg monitor tech placed and vital signs obtained. TR band intact to the right wrist. No bleeding or hematoma noted. Palpable radial pulse. No other assessment changes noted from pre cath assessment. Family unavailable at this time. No concerns voiced at this time.
--- NOTE | 2024-01-13 09:49 | P.PN_ITS ---
Subjective 2 Subjective: Patient underwent coronary angiogram that showed moderate mid LAD and mid left circumflex arteries. iFR is non-ischemic for both vessels. No chest pain. Vitals/I&O/Wt Last Vital Signs Temp 98.2 F 01/13/24 07:46 Pulse 49 L 01/13/24 09:30 Resp 16 01/13/24 09:30 BP 158/74 01/13/24 09:30 Pulse Ox 93 01/13/24 09:30 O2 Del Method Room Air 01/13/24 09:30 01/12/24 01/13/24 01/13/24 22:59 06:59 14:59 Intake Total 840 / 1200 Balance 840 / 1200 Weight last 48 hrs Weight 197 lb Weight 196 lb 9.6 oz Weight 196 lb 9.6 oz Physical Exam 2 Narrative: GENERAL: Patient is alert, awake and oriented x3. [] NECK: No jugular vein distension. [] HEENT: No cyanosis. No icterus. No pallor. [] HEART: Regular S1 and S2. No murmur, rub or gallop. [] LUNGS: Clear to auscultate bilaterally. [] CENTRAL NERVOUS SYSTEM: Grossly nonfocal. [] EXTREMITIES: Lower extremities with 1+ edema bilaterally. Data 01/13/24 04:59 01/13/24 04:59 A&P Assessment and plan (1) Hypertensive emergency: (2) Abnormal stress test: (3) Troponin level elevated: (4) Elevated brain natriuretic peptide (BNP) level: (5) RADHA (acute kidney injury): Plan Nonobstructive CAD on coronary angiogram. Aggressive risk factor modification and uptitration of antihypertensive medications. Will hydrate her today secondary to elevated creatinine and if stable by tomorrow, can be discharged Thank you for involving us with care of this patient. We will continue to follow. Please call with questions. Attestations 2 Medical Necessity Statement*: Care expected to cross 2 midnights. Coding Level of Care Code Acute Code for [facility] Fwd Diagnoses Hypertensive emergency I16.1 Abnormal stress test R94.39 Troponin level elevated R79.89 Elevated brain natriuretic peptide (BNP) level R79.89 RADHA (acute kidney injury) N17.9
--- NOTE | 2024-01-13 10:01 | SUR.EXTENDED ---
Patient transferred via wheelchair to [facility] by Lebron Olsen RN.
--- NOTE | 2024-01-13 10:12 | PC.NURSE ---
Patient returned to the floor from quality assurance qa lab analyst to the floor at 1005. TR band in place with 14ml. Patient resting in bed and eating breakfast.
[2024-01-13] MEDS: nicotine 21 mg Patch 1 PATCH TRANSDERMA (10:27)
[2024-01-13] MEDS: hyDRALAzine 50 mg Tablet PO ×3 (10:28→20:41)
[2024-01-13] MEDS: morphine 4 mg/mL SDV 1 mL 2 MG IVP ×2 (10:31→22:59)
--- NOTE | 2024-01-13 12:26 | PC.NURSE ---
attempted to call son twice but both times it says the number is not in service.
[2024-01-13] MEDS: sodium chloride 0.9% 1,000 ML 75 ML IV (13:49)
[2024-01-13] MEDS: acetaminophen 325 mg Tablet 650 MG PO (15:16)
--- NOTE | 2024-01-13 17:02 | P.PN_ITS ---
Subjective 2 Subjective: No overnight events. Vitals reviewed. Patient had coronary angiogram which showed moderate mid LAD and mid left circumflex disease. Patient is chest pain-free and denies any dyspnea, palpitations, orthopnea, PND or other symptoms at this time. Medications: Reviewed: Yes Vitals/I&O/Wt Last Vital Signs Temp 97.7 F 01/13/24 11:43 Pulse 67 01/13/24 11:43 Resp 18 01/13/24 11:43 BP 135/78 01/13/24 11:43 Pulse Ox 94 01/13/24 11:43 O2 Del Method Room Air 01/13/24 11:43 01/13/24 01/13/24 01/13/24 06:59 14:59 22:59 Intake Total 480 / 480 Balance 480 / 480 Weight last 48 hrs Weight 89.358 kg Weight 89.176 kg Weight 89.176 kg Physical Exam 2 Const: COMMON NORMALS: no acute distress and patient oriented x3 HENMT: COMMON NORMALS: normocephalic and atraumatic HEAD & SCALP: n ormocephalic and atraumatic Eye: COMMON NORMALS: Equal, round and reactive pupils present and EOMs intact bilaterally PUPIL: Yes Equal, round and reactive pupils present Neck/C-Spine: COMMON NORMALS: supple and no JVD Chest: COMMONS NORMALS: normal inspection of the chest Resp: COMMON NORMALS: normal respiratory effort and clear to auscultation bilaterally AUSCULTATION: clear to auscultation bilaterally Cardio: COMMON NORMALS: no JVD, regular rate, regular rhythm, S1 normal heart sound present, S2 normal heart sound present, No gallops present (Cardio) and No murmurs present (Cardio) RATE: regular rate RHYTHM: regular rhythm H EART SOUNDS: S1 normal heart sound present and S2 normal heart sound present GI: COMMON NORMALS: Normal to inspection, nondistended, normoactive bowel sounds present, Soft to palpation and non-tender PALPATION: Yes Soft to palpation Extremity: COMMON NORMALS: normal to inspection and no pedal edema Neuro: COMMON NORMALS: patient oriented x3 Psych: COMMON NORMALS: Normal thought process present and cooperative T HOUGHT PROCESS: Normal thought process present Skin: COMMON NORMALS: no rashes or lesions noted GENERAL SKIN EXAM: no rashes or lesions noted Data 01/13/24 04:59 01/13/24 04:59 A&P Assessment and plan (1) Hypertensive emergency: (2) Abnormal stress test: (3) Troponin level elevated: (4) Elevated brain natriuretic peptide (BNP) level: (5) RADHA (acute kidney injury): Plan Hypertensive emergency - BP at OSH was 237/134 mmHG prior to transfer - 2/2 methamphetamine abuse - she was on nicardipine gtt but now on oral meds ? Continue amlodipine, hydralazine and metoprolol CAD ? Nonobstructive CAD on coronary angiogram - Continue IV fluids secondary to elevated creatinine and if stable by tomorrow, can be discharged ? Continue aspirin and atorvastatin RADHA ? Creatinine 1.4 mg/dL; it was 0.9 mg/dL on 12/24/2019 ? Continue IV fluids ? Monitor serum creatinine Bipolar disorder Schizophrenia ? She is not on any meds for this Full code Heparin subcu for DVT prophylaxis Attestations 2 Medical Necessity Statement*: Patient likely to be discharged tomorrow. Currently on IV fluids post cardiac cath. Coding Level of Care Code 67974 Diagnoses Hypertensive emergency I16.1 Abnormal stress test R94.39 Troponin level elevated R79.89 Elevated brain natriuretic peptide (BNP) level R79.89 RADHA (acute kidney injury) N17.9
[2024-01-13] MEDS: atorvastatin 40 mg Tablet PO (20:42)
[2024-01-14] VITALS (10 sets, daily range): BP systolic 105–186; BP diastolic 52–84; PULSE 59–95; RESP 14–95; TEMP 36.4–36.8; O2SAT 93–100
[2024-01-14] MEDS: heparin 5,000 unit/mL INJ 1 mL 5000 UNIT SUBCUT ×2 (02:45→14:15)
[2024-01-14 05:38] LABS: Albumin Level 3.2 g/dL (3.5-5.2); Blood Urea Nitrogen 36 mg/dL (6-20); Calcium 9.2 mg/dL (8.5-10.5); Carbon Dioxide 26 mmol/L (22-29); Chloride 106 mmol/L (98-107); Glomerular Filtration Rate 29.8 mL/min (90-130); Glucose 139 mg/dL (65-115); Phosphorus 3.5 mg/dL (2.5-4.5); Sodium 139 mmol/L (136-145)
[2024-01-14 05:40] LABS: Creatinine Clr Calc Pharmacy 36.2523
[2024-01-14 05:41] LABS: Anion Gap 11.9 (5-19); Potassium 4.9 mmol/L (3.5-5.1)
--- NOTE | 2024-01-14 08:23 | XRR_ITS ---
PROCEDURE INFORMATION: Exam: XR Chest Exam date and time: 01/14/2024 9:15 AM Age: 48 years old Clinical indication: Cardiovascular condition or disease; Congestive heart failure (chf); Other: Not specified TECHNIQUE: Imaging protocol: Radiologic exam of the chest. Views: 1 view. COMPARISON: CR XR chest 1V portable [id number] 01/10/2024 8:00 AM FINDINGS: Lungs: Unremarkable. No consolidation or mass. Pleural spaces: Unremarkable. No pleural effusion. No pneumothorax. Heart/Mediastinum: Mild cardiomegaly is noted. Bones/joints: Unremarkable. XR/XR chest 1V portable [id number] IMPRESSION: No acute findings.
--- NOTE | 2024-01-14 08:24 | P.PN_ITS ---
Subjective 2 Subjective: Patient overall doing well. No chest pain. However creatinine has worsened and increased to 1.8 Vitals/I&O/Wt Last Vital Signs Temp 97.5 F L 01/14/24 07:51 Pulse 63 01/14/24 07:51 Resp 18 01/14/24 07:51 BP 135/77 01/14/24 07:51 Pulse Ox 94 01/14/24 07:51 O2 Del Method Room Air 01/14/24 07:51 01/13/24 01/14/24 01/14/24 22:59 06:59 14:59 Intake Total 808.75 / 1288.75 1111.25 / 2400.00 Output Total 600 / 600 Balance 808.75 / 1288.75 511.25 / 1800.00 Weight last 48 hrs Weight 150 lb Weight 150 lb Weight 197 lb Physical Exam 2 Narrative: GENERAL: Patient is alert, awake and oriented x3. [] NECK: No jugular vein distension. [] HEENT: No cyanosis. No icterus. No pallor. [] HEART: Regular S1 and S2. No murmur, rub or gallop. [] LUNGS: Clear to auscultate bilaterally. [] CENTRAL NERVOUS SYSTEM: Grossly nonfocal. [] EXTREMITIES: Lower extremities with 1+ edema bilaterally. Data 01/13/24 04:59 01/14/24 03:50 A&P Assessment and plan (1) Hypertensive emergency: (2) Abnormal stress test: (3) Troponin level elevated: (4) Elevated brain natriuretic peptide (BNP) level: (5) RADHA (acute kidney injury): Plan Patient had nonobstructive CAD on coronary angiogram. Creatinine did increase significantly to 1.8 today. Will obtain chest x-ray. If not very volume overloaded will resume fluids. Monitor renal function in the hospital till tomorrow. We had started hydralazine yesterday and blood pressure is improved. Monitor Thank you for involving us with care of this patient. We will continue to follow. Please call with questions. Attestations 2 Medical Necessity Statement*: Care expected to cross 2 midnights. Coding Level of Care Code Acute Code for [facility] Fwd Diagnoses Hypertensive emergency I16.1 Abnormal stress test R94.39 Troponin level elevated R79.89 Elevated brain natriuretic peptide (BNP) level R79.89 RADHA (acute kidney injury) N17.9
[2024-01-14] MEDS: hyDRALAzine 50 mg Tablet PO ×3 (08:46→20:23)
[2024-01-14] MEDS: metoprolol tartrate 25 mg Tablet PO ×2 (08:46→20:23)
[2024-01-14] MEDS: amlodipine 10 mg Tablet PO (08:47)
[2024-01-14] MEDS: aspirin 81 mg EC Tablet PO (08:47)
[2024-01-14] MEDS: nicotine 21 mg Patch 1 PATCH TRANSDERMA (08:47)
[2024-01-14] MEDS: sodium chloride 0.9% 1,000 ML 100 ML IV (09:11)
[2024-01-14] MEDS: morphine 4 mg/mL SDV 1 mL 2 MG IVP (11:17)
--- NOTE | 2024-01-14 15:51 | PC.NURSE ---
transfer to room 257 via w/c at this time.report phoned to lion bates.
--- NOTE | 2024-01-14 18:36 | P.PN_ITS ---
Subjective 2 Subjective: She did not have any significant overnight events. Vitals were reviewed. She had a coronary angiogram yesterday and was started on IV fluids post cath. Creatinine is elevated to 1.8 from 1.4 mg/dL yesterday. Cardiology wants her to stay 1 more night for continued IV fluids. Medications: Reviewed: Yes Vitals/I&O/Wt Last Vital Signs Temp 98.2 F 01/14/24 16:00 Pulse 69 01/14/24 16:00 Resp 16 01/14/24 16:00 BP 186/84 01/14/24 16:00 Pulse Ox 95 01/14/24 16:00 O2 Del Method Room Air 01/14/24 16:00 01/14/24 01/14/24 01/14/24 06:59 14:59 22:59 Intake Total 1111.25 / 2400.00 480 / 480 1211.667 / 1691.667 Output Total 600 / 600 Balance 511.25 / 1800.00 480 / 480 1211.667 / 1691.667 Weight last 48 hrs Weight 68.039 kg Weight 68.039 kg Weight 89.358 kg Physical Exam 2 Narrative: Const: COMMON NORMALS: no acute distress and patient oriented x3 HENMT: COMMON NORMALS: normocephalic and atraumatic HEAD & SCALP: n ormocephalic and atraumatic Eye: COMMON NORMALS: Equal, round and reactive pupils present and EOMs intact bilaterally PUPIL: Yes Equal, round and reactive pupils present Neck/C-Spine: COMMON NORMALS: supple and no JVD Chest: COMMONS NORMALS: normal inspection of the chest Resp: COMMON NORMALS: normal respiratory effort and clear to auscultation bilaterally AUSCULTATION: clear to auscultation bilaterally Cardio: COMMON NORMALS: no JVD, regular rate, regular rhythm, S1 normal heart sound present, S2 normal heart sound present, No gallops present (Cardio) and No murmurs present (Cardio) RATE: regular rate RHYTHM: regular rhythm H EART SOUNDS: S1 normal heart sound present and S2 normal heart sound present GI: COMMON NORMALS: Normal to inspection, nondistended, normoactive bowel sounds present, Soft to palpation and non-tender PALPATION: Yes Soft to palpation Extremity: COMMON NORMALS: normal to inspection and no pedal edema Neuro: COMMON NORMALS: patient oriented x3 Psych: COMMON NORMALS: Normal thought process present and cooperative T HOUGHT PROCESS: Normal thought process present Skin: COMMON NORMALS: no rashes or lesions noted GENERAL SKIN EXAM: no rashes or lesions noted Data 01/13/24 04:59 01/14/24 03:50 A&P Assessment and plan (1) Hypertensive emergency: BP at OSH was 237/134 mmHG prior to transfer - 09/24 methamphetamine abuse - she was on nicardipine gtt but now on oral meds ? Continue amlodipine, hydralazine and metoprolol (2) Abnormal stress test: (3) Troponin level elevated: (4) Elevated brain natriuretic peptide (BNP) level: (5) RADHA (acute kidney injury): Her creatinine was elevated to 1.7 mg/dL on admission and had improved to 1.4 mg/dL. She had coronary angiogram yesterday and her creatinine has increased to 1.8 mg/dL. We started her on IV fluids and recheck renal function in the a.m. (6) Coronary artery disease: CAD ? Nonobstructive CAD on coronary angiogram yesterday 01/12 ? Continue aspirin and atorvastatin (7) Amphetamine use disorder, severe, dependence: She admits to using methamphetamine and counseled on cessation. Patient plans to quit. Plan Restarted IV fluids given elevated creatinine post coronary angiogram. Monitor renal function. Attestations 2 Medical Necessity Statement*: Continued hospital admission for IV fluids given elevated creatinine post coronary angiogram. Full code Heparin subcu for DVT prophylaxis Coding Level of Care Code 55377 Diagnoses Hypertensive emergency I16.1 Abnormal stress test R94.39 Troponin level elevated R79.89 Elevated brain natriuretic peptide (BNP) level R79.89 RADHA (acute kidney injury) N17.9 Coronary artery disease I25.10 Amphetamine use disorder, severe, dependence F15.20
[2024-01-14] MEDS: atorvastatin 40 mg Tablet PO (20:22)
[2024-01-14] MEDS: acetaminophen 325 mg Tablet 650 MG PO (23:18)
[2024-01-15] VITALS (7 sets, daily range): BP systolic 124–137; BP diastolic 76–95; PULSE 62–71; RESP 16–20; TEMP 36.5–36.7; O2SAT 91–97
[2024-01-15] MEDS: heparin 5,000 unit/mL INJ 1 mL 5000 UNIT SUBCUT (01:50)
[2024-01-15 05:44] LABS: Anion Gap 13.2 (5-19); Blood Urea Nitrogen 31 mg/dL (6-20); Calcium 8.5 mg/dL (8.5-10.5); Carbon Dioxide 23 mmol/L (22-29); Chloride 105 mmol/L (98-107); Creatinine Clr Calc Pharmacy 50.9697; Glomerular Filtration Rate 36.8 mL/min (90-130); Glucose 149 mg/dL (65-115); Osmolality Calculated 293 mOsm/kg (285-295); Potassium 4.2 mmol/L (3.5-5.1); Sodium 137 mmol/L (136-145)
--- NOTE | 2024-01-15 08:25 | P.PN_ITS ---
Subjective 2 Subjective: Patient is doing well. No chest pain. Blood pressure is controlled. Renal function is improving. Vitals/I&O/Wt Last Vital Signs Temp 97.9 F 01/15/24 07:26 Pulse 70 01/15/24 07:43 Resp 18 01/15/24 07:43 BP 130/80 01/15/24 07:26 Pulse Ox 91 01/15/24 07:43 O2 Del Method Room Air 01/15/24 07:43 01/14/24 01/15/24 01/15/24 22:59 06:59 14:59 Intake Total 1311.667 / 1791.667 7 60 / 60 Balance 1311.667 / 1791.667 60 / 60 Weight last 48 hrs Weight 208 lb 1.6 oz Weight 150 lb Weight 150 lb Physical Exam 2 Narrative: GENERAL: Patient is alert, awake and oriented x3. [] NECK: No jugular vein distension. [] HEENT: No cyanosis. No icterus. No pallor. [] HEART: Regular S1 and S2. No murmur, rub or gallop. [] LUNGS: Clear to auscultate bilaterally. [] CENTRAL NERVOUS SYSTEM: Grossly nonfocal. [] EXTREMITIES: Lower extremities with 1+ edema bilaterally. Data 01/13/24 04:59 01/15/24 04:52 A&P Assessment and plan (1) Hypertensive emergency: (2) Abnormal stress test: (3) Troponin level elevated: (4) Elevated brain natriuretic peptide (BNP) level: (5) RADHA (acute kidney injury): Plan Creatinine has improved. Nonobstructive CAD on angiogram. Patient is stable to be discharged from cardiology standpoint. Attestations 2 Medical Necessity Statement*: Care expected to cross 2 midnights. Coding Level of Care Code Acute Code for [facility] Diagnoses Hypertensive emergency I16.1 Abnormal stress test R94.39 Troponin level elevated R79.89 Elevated brain natriuretic peptide (BNP) level R79.89 RADHA (acute kidney injury) N17.9
[2024-01-15] MEDS: nicotine 21 mg Patch 1 PATCH TRANSDERMA (08:26)
[2024-01-15] MEDS: aspirin 81 mg EC Tablet PO (08:26)
[2024-01-15] MEDS: amlodipine 10 mg Tablet PO (08:26)
[2024-01-15] MEDS: metoprolol tartrate 25 mg Tablet PO (08:26)
[2024-01-15] MEDS: hyDRALAzine 50 mg Tablet PO (08:27)
--- NOTE | 2024-01-15 11:08 | PM.DCS ---
Discharge Providers Date of Admission: 01/10/24 00:22 Date of Discharge: January 15, 2024 Attending Provider at Admission: Janis Nuñez MD Attending Provider at Discharge: Brianda Vo MD Consults: Cardiology Diagnoses at Discharge Discharge Diagnosis (1) Hypertensive emergency: Status: Resolved (2) Abnormal stress test: Status: Acute (3) Troponin level elevated: Status: Acute (4) Elevated brain natriuretic peptide (BNP) level: Status: Acute (5) RADHA (acute kidney injury): Status: Acute Reason for Visit Reason for Visit: Hypertensive Emergency Brief History: Please see H&P for full details of presenting condition and initial treatment. Hospital Course Hospital Course This is a 48-year-old female with hypertension, hyperlipidemia, CAD, methamphetamine use disorder, tobacco use disorder, bipolar disorder, schizophrenia, migraine headaches. She was admitted from an OSH ([facility]) for hypertensive emergency. She admits to using methamphetamine and was positive for it. She was started on nicardipine infusion prior to transfer here. She was started on amlodipine, metoprolol, and hydralazine. Her blood pressure is currently controlled. She had elevated troponin. Nuclear cardiac stress test was done on 01/11 and showed small area of reversible defect in the mid anterior lateral region suggestive of ischemia in the distribution of the left circumflex artery. She had coronary angiogram on 01/12 which showed nonobstructive CAD. TTE on 01/09 showed moderate LVH, normal LV size and systolic function with EF of 59%. No regional wall motion abnormalities were seen. However creatinine has been mildly elevated. Suspect that she has chronic kidney disease. This will need to be monitored. She denies a smoker and she was counseled on smoking cessation. She has been discharged with nicotine patches. She was also counseled on stopping methamphetamine use. Physical Exam Narrative: GEN: Alert, no distress Neuro: Oriented x 4, no focal neurodeficits HEENT: Normocephalic atraumatic, PERRLA, EOMI Neck: Supple, no JVD Cardio: S1, S2, regular rate and rhythm, no murmur, rubs or gallops Respiratory: Normal effort, clear to auscultation bilaterally Abdomen: Soft, nondistended, nontender, normal bowel sounds Extremity: No edema Skin: No rashes or lesions Discharge Data Studies Completed and Pending Completed Studies During Hospitalization Category Date Time Status Cardiac Stress Test MIBI [Sestamibi Stress Test Request Exams 01/11/24 09:58 Completed ] Routine XR chest 1V portable [id number] Routine Exams 01/10/24 01:46 Completed XR chest 1V portable [id number] Routine Exams 01/10/24 08:00 Completed XR chest 1V portable [id number] Routine Exams 01/14/24 08:23 Completed NM wilner perf SPECT r/s* [id number] Routine Nuc Med 01/12/24 07:00 Completed US echo complete [CV. echo complete* [id number]] Routine Ultrasound 01/10/24 01:33 Completed Pending at discharge Category Date Time Status DOBIE MAN request for service Routine Exams 01/13/24 07:23 Taken Radiology Impressions Chest X-Ray 01/14/24 08:23 IMPRESSION: No acute findings. Laboratory Results WBC 7.17 10^3/uL (3.29-11.43) 01/13/24 04:59 RBC 4.28 10^6/uL (3.85-5.65) 01/13/24 04:59 Hgb 13.30 g/dL (11.27-16.99) 01/13/24 04:59 Hct 41.5 % (36-47) 01/13/24 04:59 MCV 97.0 fl (85-98) 01/13/24 04:59 MCH 31.1 pg (27-33) 01/13/24 04:59 MCHC 32.0 g/dL (30-55) 01/13/24 04:59 RDW 13.5 % (12.1-15.1) 01/13/24 04:59 Plt Count 174 10^3/cmm (157-399) 01/13/24 04:59 MPV 10.1 fL (7.4-10.4) 01/13/24 04:59 Neut % (Auto) 60.7 % 01/13/24 04:59 Lymph % (Auto) 30.7 % 01/13/24 04:59 [place] % (Auto) 5.9 % 01/13/24 04:59 Eos % (Auto) 1.8 % 01/13/24 04:59 Baso % (Auto) 0.6 % 01/13/24 04:59 Neut # (Auto) 4.36 10^3/uL (1.8-7.7) 01/13/24 04:59 Lymph # (Auto) 2.2 10^3/uL (0.8-4.8) 01/13/24 04:59 [place] # (Auto) 0.4 10^3/uL (0.2-0.9) 01/13/24 04:59 Eos # (Auto) 0.1 10^3/uL (0.0-0.8) 01/13/24 04:59 Baso # (Auto) 0.0 10^3/uL (0.0-0.1) 01/13/24 04:59 Nucleated RBC % (auto) 0 % 01/13/24 04:59 Nucleated RBCs # 0.0 /100WBC 01/13/24 04:59 Sodium 137 mmol/L (136-145) 01/15/24 04:52 Potassium 4.2 mmol/L (3.5-5.1) 01/15/24 04:52 Chloride 105 mmol/L (98-107) 01/15/24 04:52 Carbon Dioxide 23 mmol/L (22-29) 01/15/24 04:52 Anion Gap 13.2 (5-19) 01/15/24 04:52 BUN 31 mg/dL (6-20) H 01/15/24 04:52 Creatinine 1.5 mg/dL (0.5-0.9) H 01/15/24 04:52 GFR Calculation 36.8 mL/min (90-130) L 01/15/24 04:52 Glucose 149 mg/dL (65-115) H 01/15/24 04:52 Estimat Average Glucose 100 01/12/24 10:40 Hemoglobin A1c 5.1 % (4.0-6.0) 01/12/24 10:40 Calculated Osmolality 293 mOsm/kg (285-295) 01/15/24 04:52 Calcium 8.5 mg/dL (8.5-10.5) 01/15/24 04:52 Phosphorus 3.5 mg/dL (2.5-4.5) 01/14/24 03:50 Magnesium 2.0 mg/dL (1.7-2.3) 01/14/24 03:50 Total Bilirubin 0.4 mg/dL (0.15-1.2) 01/13/24 04:59 AST 23 U/L (0-32) 01/13/24 04:59 ALT 18 U/L (0-33) 01/13/24 04:59 Alkaline Phosphatase 61 U/L (35-105) 01/13/24 04:59 Troponin T Baseline 66 ng/L (0-10) H 01/10/24 01:58 Troponin T 120 Minute 91.84 ng/L (0-10) H 01/10/24 05:16 Delta Troponin T 25.84 ABS# (0-10) H* 01/10/24 05:16 Troponin T Hi Sens 6Hr 95.91 ng/L (0-10) H 01/10/24 07:50 Troponin T Hi Sens 6Hr Delta 29.91 ng/L (0-12) H* 01/10/24 07:50 NT-Pro-B Natriuret Pep 04452 pg/mL (0-125) H 01/10/24 07:50 Total Protein 6.6 g/dL (6.6-8.7) 01/13/24 04:59 Albumin 3.2 g/dL (3.5-5.2) L 01/14/24 03:50 Globulin 3.2 g/dL (1.3-4.6) 01/13/24 04:59 Triglycerides 154 mg/dL (0-150) H 01/12/24 10:40 Cholesterol 152 mg/dL (0-200) 01/12/24 10:40 LDL Cholesterol, Calc 61 mg/dL (50-129) 01/12/24 10:40 HDL Cholesterol 60 mg/dL (60-100) 01/12/24 10:40 LDL/HDL Ratio 1.02 RATIO (0.00-3.22) 01/12/24 10:40 Cholesterol/HDL Ratio 2.53 mg/dL (0.0-4.40) 01/12/24 10:40 TSH 0.85 uIU/mL (0.27-4.20) 01/10/24 01:58 HCG, Qual Negative (Negative) 01/13/24 04:59 Urine Opiates Screen Positive ng/mL (Negative) H 01/10/24 03:20 Ur Barbiturates Screen Negative ng/mL (Negative) 01/10/24 03:20 Ur Phencyclidine Scrn Negative ng/mL (Negative) 01/10/24 03:20 Ur Amphetamines Screen Positive ng/mL (Negative) H 01/10/24 03:20 U Benzodiazepines Scrn Negative ng/mL (Negative) 01/10/24 03:20 Urine Cocaine Screen Negative ng/mL (Negative) 01/10/24 03:20 U Marijuana (THC) Screen Negative ng/mL (Negative) 01/10/24 03:20 Vitals Last Vital Signs Temp 97.9 F 01/15/24 07:26 Pulse 70 01/15/24 07:43 Resp 18 01/15/24 07:43 BP 130/80 01/15/24 07:26 Pulse Ox 91 01/15/24 07:43 O2 Del Method Room Air 01/15/24 07:43 Discharge Plan Discharge Patient Disposition: Home Condition: Stable Prescriptions: New atorvastatin 40 mg Tablet 40 mg PO BEDTIME Qty: 30 0RF aspirin 81 mg Tablet,Delayed Release (Dr/Ec) 81 mg PO DAILY Qty: 30 0RF amlodipine 10 mg Tablet 10 mg PO DAILY 30 Days Qty: 30 0RF hydralazine 50 mg Tablet 50 mg PO TID Qty: 90 0RF metoprolol tartrate 25 mg Tablet 25 mg PO BID@0900,2100 Qty: 60 0RF ProAir HFA 90 mcg/actuation HFA aerosol inhaler 1 inh inhalation Q6H PRN (Reason: shortness of breath or wheezing) Qty: 8.5 0RF nicotine 21 mg/24 hr Patch 24 Hour 1 patch transdermal DAILY Qty: 36 0RF nicotine 14 mg/24 hr patch 24 hour 1 patch transdermal DAILY Qty: 14 0RF Rx Instructions: take after finished 21 mcg nicotine 7 mg/24 hr patch 24 hour 1 patch transdermal DAILY Qty: 14 0RF Rx Instructions: take after finished 14 mcg Discharge Orders: Discharge Order (Routine); Ordered 01/15/24 Ordered By: Brianda Vo Referrals: Yanira Cantu FNP [Nurse Practitioner] - 02/15/24 1:00 pm Discharge Diet: Cardiac Discharge Activity: Resume usual activity Patient Instructions: Metoprolol (By mouth), Albuterol (By breathing), Aspirin (By mouth), Nicotine (Absorbed through the skin), Hydralazine (By mouth), Amlodipine (By mouth), Atorvastatin (By mouth), Methamphetamine Abuse, Cigarette Smoking and Your Health (GEN), Opioid Safety, Quitting Smoking Activity Restrictions/Additional Instructions: Follow up with PCP in 1 week Discharge Attestations Time Spent in Discharge Care*: greater than 30 min Quality Metrics Clinical Quality Measures [ No reported AMI, CVA or VTE this stay] Coding Level of Care Code 45520 Diagnoses Hypertensive emergency I16.1 Abnormal stress test R94.39 Troponin level elevated R79.89 Elevated brain natriuretic peptide (BNP) level R79.89 RADHA (acute kidney injury) N17.9
--- NOTE | 2024-01-15 11:42 | PC.NURSE ---
Discharge instructions provided to pt at this time. NO questions or concerns at this time. Awaiting ride.
== END 2024-01-15 11:54 | disposition home or self-care (01) | DRG 287 ==
LOC: ICU 08:36 → MEDSURG 01-11 15:45 → CSU 01-12 19:24 → MEDSURG 01-14 16:29
PROVIDERS: Internal Medicine; Student in an Organized Health Care Education/Training Program; Admitting Provider Internal Medicine; Visit Provider Student in an Organized Health Care Education/Training Program
PROC: B211YZZ Fluoroscopy of Multiple Coronary Arteries using Other Contrast (ICD-10-PCS; principal; 2024-01-13 08:30)
DX: I16.1 Hypertensive emergency (principal); N17.9 Acute kidney failure, unspecified; Z91.148 Patient's other noncompliance with medication regimen for other reason; F15.10 Other stimulant abuse, uncomplicated; F17.210 Nicotine dependence, cigarettes, uncomplicated; Z82.49 Family history of ischemic heart disease and other diseases of the circulatory system; R00.0 Tachycardia, unspecified; I25.10 Atherosclerotic heart disease of native coronary artery without angina pectoris; G43.909 Migraine, unspecified, not intractable, without status migrainosus; I10 Essential (primary) hypertension; E78.5 Hyperlipidemia, unspecified; F20.9 Schizophrenia, unspecified; F31.9 Bipolar disorder, unspecified
CPT/HCPCS: 36415; 71045; 78452; 80048; 80053; 80061; 80069; 80306; 83036; 83735; 83880; 84443; 84484; 84703; 85025; 93005; 93017; 93306; 93458; 93571; 93572; 94760; 96372; 96374; 96375; 96376; 99152; 99153; A9500; C1769; C1887; C1894; J0280; J0360; J1644; J1940; J2060; J2250; J2270; J2405; J2785; J3010; J3490; J7030; Q0163; Q9967

== ENCOUNTER → 2024-02-15 12:47 | Outpatient (BNVA) | payer MEDICAID, SELFPAY | PROVIDERS: Visit Provider Nurse Practitioner Family | DX: I25.10 Atherosclerotic heart disease of native coronary artery without angina pectoris (principal); Z72.0 Tobacco use | CPT/HCPCS: 36415; 80048; 99214 ==

== ENCOUNTER 2024-03-10 17:17 | Emergency (ER) | payer MEDICAID, SELFPAY ==
[2024-03-10 17:20] VITALS: BP 145/83; PULSE 83; RESP 23; TEMP 36.6; O2SAT 95
--- NOTE | 2024-03-10 17:26 | XRR_ITS ---
PROCEDURE INFORMATION: Exam: XR Chest Exam date and time: 03/10/2024 5:36 PM Age: 48 years old Clinical indication: Shortness of breath; TECHNIQUE: Imaging protocol: Radiologic exam of the chest. Views: 1 view. COMPARISON: CR XR chest 1V portable [id number] 01/14/2024 9:15 AM FINDINGS: Lungs: Unremarkable. No consolidation. Pleural spaces: Unremarkable. No pleural effusion. No pneumothorax. Heart/Mediastinum: Unremarkable. No cardiomegaly. Bones/joints: Chronic appearing fracture through the posterior aspect of the right 6th rib. XR/XR chest 1V portable [id number] IMPRESSION: No acute findings. There is a chronic appearing fracture through the posterior aspect of the right 6th rib.
--- NOTE | 2024-03-10 17:29 | ED_ITS ---
HPI - SOB/Dyspnea General: Chief Complaint: Shortness of Breath/Dyspnea Stated Complaint: sob Time Seen by Provider: 03/10/24 17:21 History of Present Illness: HPI Narrative: Patient comes in with shortness of breath. States that she has been having increasing shortness of breath over the last week. States it got much worse today. States that her has numerous dogs in the house. States he has a history of asthma but that one of the dogs chewed up the inhaler. States she came in by EMS and received a nebulizer treatment and route which helped her significantly. Denies fever, or productive cough. Review of Systems General: Reports: 10 or more systems reviewed and unremarkable except in HPI and below PFSH ED PFSH: Social History Smoking and tobacco/nicotine status: current every day tobacco/nicotine user cigarettes Packs smoked per day: 1.5 Years cigarettes smoked: 30 Quit status (tobacco/nicotine): not considering quitting Second hand smoke exposure: Yes Current gender identity: Female Physical Exam Const: COMMON NORMALS: no acute distress, patient oriented x3, healthy appearing and alert HENMT: COMMON NORMALS: normocephalic and atraumatic HEAD & SCALP: normocephalic and atraumatic Eye: COMMON NORMALS: Equal, round and reactive pupils present and EOMs intact bilaterally PUPIL: Yes Equal, round and reactive pupils present Neck/C-Spine: COMMON NORMALS: full ROM and supple Resp: COMMON NORMALS: No retractions and No use of accessory muscles Cardio: COMMON NORMALS: regular rate and regular rhythm RATE: regular rate RHYTHM: regular rhythm Extremity: COMMON NORMALS: normal to inspection and full ROM Neuro: COMMON NORMALS: patient oriented x3 SENSORIUM/ORIENTATION: Yes alert Psych: COMMON NORMALS: mental status grossly normal and cooperative Skin: COMMON NORMALS: no rashes or lesions noted and no wounds GENERAL SKIN EXAM: no rashes or lesions noted Course Vital Signs: Vital signs: Vital Signs Temperature 97.9 F 03/10/24 17:20 Pulse Rate 87 03/10/24 18:28 Respiratory Rate 20 H 03/10/24 18:16 Blood Pressure 145/83 03/10/24 17:20 Pulse Oximetry 98 03/10/24 18:28 Oxygen Delivery Me thod Nasal Cannula 03/10/24 18:28 Oxygen Flow Rate 2 03/10/24 18:28 MDM - SOB/Dyspnea Medical Decision Making Patient comes in with shortness of breath. States that she has been having increasing shortness of breath over the last week. States it got much worse today. States that her has numerous dogs in the house. States he has a history of asthma but that one of the dogs chewed up the inhaler. States she came in by EMS and received a nebulizer treatment and route which helped her significantly. Denies fever, or productive cough. On physical exam she is mildly tachypneic. Breath sounds are unremarkable. Will check x-ray, give DuoNeb, start steroids, and reassess. On reassessment the patient is feeling much better after the treatment. Have kept her here for a while to watch and make sure that she will be stable in between treatments. She has done well. Her x-ray shows no acute cardiopulmonary process. Will prescribe steroids, albuterol inhaler, and discharge at this time with precautions to return for worsening or changing symptoms. Lab Data Labs/Radiology: Radiology Impressions Chest X-Ray 03/10/24 17:26 IMPRESSION: No acute findings. There is a chronic appearing fracture through the posterior aspect of the right 6th rib. All radiology interpretation(s) finalized by discharge Discharge Plan Discharge Patient Disposition: Home Clinical Impression: Asthma with exacerbation Qualifiers: Asthma severity: moderate Asthma persistence: unspecified Qualified Code(s): J45.901 - Unspecified asthma with (acute) exacerbation Condition: Stable Prescriptions: New prednisone 20 mg tablet 20 mg PO DAILY 4 Days Qty: 8 0RF albuterol sulfate 90 mcg/actuation HFA aerosol inhaler 2 inh inhalation Q6H PRN (Reason: shortness of breath or wheezing) Qty: 1 0RF No Action amlodipine 10 mg tablet 10 mg PO DAILY Qty: 90 1RF atorvastatin 40 mg tablet 40 mg PO BEDTIME Qty: 90 1RF hydralazine 50 mg tablet 50 mg PO TID Qty: 90 1RF metoprolol tartrate 25 mg tablet 25 mg PO BID@0900,2100 Qty: 180 1RF ProAir HFA 90 mcg/actuation HFA aerosol inhaler 1 inh inhalation Q6H PRN (Reason: shortness of breath or wheezing) Qty: 8.5 0RF aspirin 81 mg Tablet,Delayed Release (Dr/Ec) 81 mg PO DAILY Qty: 30 0RF nicotine 21 mg/24 hr Patch 24 Hour 1 patch transdermal DAILY Qty: 36 0RF nicotine 14 mg/24 hr patch 24 hour 1 patch transdermal DAILY Qty: 14 0RF Rx Instructions: take after finished 21 mcg nicotine 7 mg/24 hr patch 24 hour 1 patch transdermal DAILY Qty: 14 0RF Rx Instructions: take after finished 14 mcg Discharge Orders: Discharge ED (Routine); Ordered 03/10/24 Ordered By: Henrik Quigley Patient Instructions: Asthma Exacerbation - Adult Coding Level of Care Code ED Surgical Garment Inspector for Shara Zaldivar
[2024-03-10] MEDS: dexamethasone 4 mg Tablet 10 MG PO (17:48)
[2024-03-10 18:16] VITALS: PULSE 70; RESP 20; O2SAT 96
[2024-03-10] MEDS: ipratropium-albuterol 3 mL Neb INHALATION (18:16)
[2024-03-10 18:19] VITALS: PULSE 67
[2024-03-10 18:28] VITALS: PULSE 87; O2SAT 98
[2024-03-10 20:33] VITALS: BP 160/83; PULSE 72; RESP 18; O2SAT 97
== END 2024-03-10 20:27 | disposition home or self-care (01) ==
PROVIDERS: Emergency Provider Emergency Medicine
DX: J45.901 Unspecified asthma with (acute) exacerbation (principal); Z79.82 Long term (current) use of aspirin; F17.210 Nicotine dependence, cigarettes, uncomplicated
CPT/HCPCS: 71045; 94640; 99283; J8540

== ENCOUNTER 2024-04-12 14:26 | Emergency (ER) | payer MEDICAID, SELFPAY ==
[2024-04-12 14:28] VITALS: PULSE 93; O2SAT 99
--- NOTE | 2024-04-12 14:29 | XRR_ITS ---
PROCEDURE INFORMATION: Exam: XR Chest Exam date and time: 04/12/2024 2:36 PM Age: 48 years old Clinical indication: Shortness of breath; Additional info: SOB TECHNIQUE: Imaging protocol: Radiologic exam of the chest. Views: 1 view. COMPARISON: CR (CHEST, ) 03/10/2024 5:36 PM FINDINGS: Lungs: Unremarkable. No consolidation. Pleural spaces: Unremarkable. No pleural effusion. No pneumothorax. Heart/Mediastinum: Unremarkable. No cardiomegaly. Bones/joints: Stable old posterior right rib fracture. XR/XR chest 1V portable [id number] IMPRESSION: No acute findings.
--- NOTE | 2024-04-12 14:29 | ECG_ITS ---
[facility] Test Date: 2024-04-12 Pat Name: Yamileth Feliciano Department: Room: Gender: Female Ar Manager: : 1975 Requested By: Antonio Weathers Order Number: [id number] Temo MD: Bradley Balderas M.D. Measurements Intervals [place] Rate: 97 P: 50 [place]: 136 QRS: -24 QRSD: 91 T: 94 QT: 385 QTc: 491 Interpretive Statements SINUS RHYTHM POSSIBLE LEFT ATRIAL ENLARGEMENT [-0.1mV P-WAVE IN V1/V2] BORDERLINE LEFT AXIS DEVIATION [QRS AXIS < -20] LEFT VENTRICULAR HYPERTROPHY AND ST-T CHANGE [VOLTAGE CRITERIA PLUS ST/T ABNORMALITY] Compared to ECG 01/10/2024 10:03:27 No significant changes Electronically Signed On 04-13-2024 0:18:56 CDT by Bradley Balderas M.D. [id number]
--- NOTE | 2024-04-12 14:30 | W.ED.SOB ---
HPI - SOB/Dyspnea General: Chief Complaint: Shortness of Breath/Dyspnea Stated Complaint: Resp Distress Time Seen by Provider: 04/12/24 14:26 Source: patient and EMS Mode of arrival: EMS Limitations: no limitations History of Present Illness: HPI Narrative: 48-year-old female has a history of COPD patient was called EMS from the clinic clinic and called as she was in respiratory distress EMS states that she was 70s requiring 5 L of oxygen they gave her 0.3 of epinephrine along with breathing treatment states she is improving but she still tachypneic here with wheezing. She denies any cough she denies any fever she denies any pain. Associated symptoms: Deny abdominal pain, chest pain, fever(s), nausea or vomiting Related Data Previous Rx's Medication Instructions Recorded aspirin 81 mg tablet,delayed 81 mg PO DAILY #30 tabs 01/15/24 release nicotine 14 mg/24 hr daily 1 patch transdermal DAILY #14 ea 01/15/24 transdermal patch nicotine 21 mg/24 hr daily 1 patch transdermal DAILY #36 ea 01/15/24 transdermal patch nicotine 7 mg/24 hr daily 1 patch transdermal DAILY #14 ea 01/15/24 transdermal patch albuterol sulfate 90 mcg/actuation 1 inh inhalation Q6H PRN shortness 02/15/24 aerosol inhaler (ProAir HFA) of breath or wheezing #8.5 grams amlodipine 10 mg tablet 10 mg PO DAILY #90 tabs 02/15/24 atorvastatin 40 mg tablet 40 mg PO BEDTIME #90 tabs 02/15/24 metoprolol tartrate 25 mg tablet 25 mg PO BID@0900,2100 #180 tabs 02/15/24 albuterol sulfate 90 mcg/actuation 2 inh inhalation Q6H PRN shortness 03/10/24 aerosol inhaler of breath or wheezing #1 pump hydralazine 50 mg tablet See Rx Instructions .Route 03/28/24 .COMPLEX #90 tabs albuterol sulfate 2.5 mg/3 mL 2.5 mg (3 mL) inhalation Q4H PRN 04/12/24 (0.083 %) solution for nebulization shortness of breath or wheezing #90 mL prednisone 50 mg tablet 50 mg PO DAILY #5 tabs 04/12/24 Allergies Allergy/AdvReac Type Severity Reaction Status Date / Time hydromorphone [From Dilaudid] Allergy ADR-Migrain Verified 03/10/24 17:29 e Review of Systems Const: Denies: fever(s), chills, body aches or change in appetite ENMT: Denies: throat pain or dental pain Card: Denies: chest pain Resp: Reports: dyspnea and wheezing GI: Denies: abdominal pain, nausea, vomiting or diarrhea Musc: Denies: neck pain or back pain Skin/Breast: Denies: rash Neuro: Denies: headache(s) PFSH ED PFSH: Social History Smoking and tobacco/nicotine status: current every day tobacco/nicotine user cigarettes Packs smoked per day: 1.5 Years cigarettes smoked: 30 Quit status (tobacco/nicotine): not considering quitting Second hand smoke exposure: Yes Current gender identity: Female Physical Exam Const: COMMON NORMALS: patient oriented x3 GENERAL APPEARANCE: in distress and ill appearing HENMT: COMMON NORMALS: normocephalic and atraumatic HEAD & SCALP: normocephalic and atraumatic Eye: COMMON NORMALS: conjunctivae normal CONJUNCTIVA: Yes conjunctivae normal Neck/C-Spine: COMMON NORMALS: full ROM and supple Chest: COMMONS NORMALS: normal inspection of the chest and normal palpation of entire chest wall Resp: COMMON NORMALS: No retractions EFFORT & INSPECTION: Yes tachypneic and Yes respiratory distress AUSCULTATION: wheezes Cardio: COMMON NORMALS: regular rate, regular rhythm and No murmurs present (Cardio) RATE: regular rate RHYTHM: regular rhythm GI: COMMON NORMALS: Normal to inspection, nondistended, normoactive bowel sounds present, Soft to palpation, non-tender and no masses PALPATION: Yes Soft to palpation Extremity: COMMON NORMALS: normal to inspection and full ROM Neuro: COMMON NORMALS: patient oriented x3, moves all extremities and no focal motor deficits Psych: COMMON NORMALS: mental status grossly normal, Normal thought process present and cooperative THOUGHT PROCESS: Normal thought process present Skin: COMMON NORMALS: no rashes or lesions noted and no wounds GENERAL SKIN EXAM: no rashes or lesions noted Course Vital Signs: Vital signs: Vital Signs Pulse Rate 104 H 04/12/24 15:41 Respiratory Rate 19 H 04/12/24 15:41 Blood Pressure 146/98 04/12/24 15:41 Pulse Oximetry 94 04/12/24 15:41 Oxygen Delivery Me thod Room Air 04/12/24 14:44 Oxygen Flow Rate 3 04/12/24 14:28 MDM - SOB/Dyspnea Medical Decision Making Patient presents here with asthma exacerbation she is much improved here I did speak to her I recommend admission for observation due to her level distress earlier she refuses she states she does not want to be admitted she wants to go home we will send her home with albuterol nebs along with prednisone prescription she is to follow-up with PCP and return if worsening she understands agrees plan Medical Records I reviewed the patient's medical records. Lab Data I reviewed the patient's lab results. 04/12/24 14:30 04/12/24 14:30 Labs/Radiology: Radiology Impressions Chest X-Ray 04/12/24 14:29 IMPRESSION: No acute findings. Laboratory Results WBC 11.73 10^3/uL (3.29-11.43) H 04/12/24 14:30 RBC 5.00 10^6/uL (3.85-5.65) 04/12/24 14:30 Hgb 15.30 g/dL (11.27-16.99) 04/12/24 14:30 Hct 46.3 % (36-47) 04/12/24 14:30 MCV 92.6 fl (85-98) 04/12/24 14:30 MCH 30.6 pg (27-33) 04/12/24 14:30 MCHC 33.0 g/dL (30-55) 04/12/24 14:30 RDW 12.6 % (12.1-15.1) 04/12/24 14:30 Plt Count 218 10^3/cmm (157-399) 04/12/24 14:30 MPV 10.2 fL (7.4-10.4) 04/12/24 14:30 Neut % (Auto) 79.8 % 04/12/24 14:30 Lymph % (Auto) 16.0 % 04/12/24 14:30 [place] % (Auto) 3.1 % 04/12/24 14:30 Eos % (Auto) 0.4 % 04/12/24 14:30 Baso % (Auto) 0.5 % 04/12/24 14:30 Neut # (Auto) 9.36 10^3/uL (1.8-7.7) H 04/12/24 14:30 Lymph # (Auto) 1.9 10^3/uL (0.8-4.8) 04/12/24 14:30 [place] # (Auto) 0.4 10^3/uL (0.2-0.9) 04/12/24 14:30 Eos # (Auto) 0.1 10^3/uL (0.0-0.8) 04/12/24 14:30 Baso # (Auto) 0.1 10^3/uL (0.0-0.1) 04/12/24 14:30 Nucleated RBC % (auto) 0 % 04/12/24 14:30 Nucleated RBCs # 0.0 /100WBC 04/12/24 14:30 Specimen Type Arterial 04/12/24 14:58 Sample Site Radial, right 04/12/24 14:58 ABG pH 7.36 (7.35-7.45) 04/12/24 14:58 ABG pCO2 46.5 mmHg (35-45) H 04/12/24 14:58 ABG pO2 73.8 mmHg (80.0-100.0) L 04/12/24 14:58 ABG PO2/FiO2 Ratio 351 04/12/24 14:58 ABG HCO3 26.5 mmol/L (22-26) H 04/12/24 14:58 ABG Base Excess 0.5 mmol/L (-2.0-2.0) 04/12/24 14:58 Huber Test Pos 04/12/24 14:58 Hematocrit 48.1 % (37-47) H 04/12/24 14:58 Hgb O2 Saturation 90.4 % (95-100) L 04/12/24 14:58 Carboxyhemoglobin 4.3 %THgb (0.4-20.1) 04/12/24 14:58 Methemoglobin 1.1 % (0.4-1.5) 04/12/24 14:58 Total Hemoglobin 15.7 g/dL (12-16) 04/12/24 14:58 O2 Delivery Device Room air 04/12/24 14:58 FiO2 21.0 % 04/12/24 14:58 Reinforcing Steel Placer ID Amh 04/12/24 14:58 Sodium 140 mmol/L (136-145) 04/12/24 14:30 Potassium 4.0 mmol/L (3.5-5.1) 04/12/24 14:30 Chloride 105 mmol/L (98-107) 04/12/24 14:30 Carbon Dioxide 25 mmol/L (22-29) 04/12/24 14:30 Anion Gap 14.0 (5-19) 04/12/24 14:30 BUN 24 mg/dL (6-20) H 04/12/24 14:30 Creatinine 1.8 mg/dL (0.5-0.9) H 04/12/24 14:30 GFR Calculation 29.8 mL/min (90-130) L 04/12/24 14:30 Glucose 128 mg/dL (65-115) H 04/12/24 14:30 Calculated Osmolality 296 mOsm/kg (285-295) H 04/12/24 14:30 Calcium 9.0 mg/dL (8.5-10.5) 04/12/24 14:30 Total Bilirubin 0.2 mg/dL (0.15-1.2) 04/12/24 14:30 AST 20 U/L (0-32) 04/12/24 14:30 ALT 18 U/L (0-33) 04/12/24 14:30 Alkaline Phosphatase 90 U/L (35-105) 04/12/24 14:30 NT-Pro-B Natriuret Pep 2606 pg/mL (0-125) H 04/12/24 14:30 Total Protein 7.2 g/dL (6.6-8.7) 04/12/24 14:30 Albumin 4.0 g/dL (3.5-5.2) 04/12/24 14:30 Globulin 3.2 g/dL (1.3-4.6) 04/12/24 14:30 All radiology interpretation(s) finalized by discharge Discharge Plan Discharge Patient Disposition: Home Clinical Impression: Asthma exacerbation Condition: Stable Prescriptions: New albuterol sulfate 2.5 mg /3 mL (0.083 %) solution for nebulization 2.5 mg INHALATION Q4H PRN (Reason: shortness of breath or wheezing) Qty: 90 0RF prednisone 50 mg tablet 50 mg PO DAILY Qty: 5 0RF No Action amlodipine 10 mg tablet 10 mg PO DAILY Qty: 90 1RF atorvastatin 40 mg tablet 40 mg PO BEDTIME Qty: 90 1RF metoprolol tartrate 25 mg tablet 25 mg PO BID@0900,2100 Qty: 180 1RF ProAir HFA 90 mcg/actuation HFA aerosol inhaler 1 inh inhalation Q6H PRN (Reason: shortness of breath or wheezing) Qty: 8.5 0RF hydralazine 50 mg tablet See Rx Instructions .ROUTE .COMPLEX Qty: 90 1RF Dose Instruction: TAKE ONE TABLET BY MOUTH THREE TIMES DAILY Rx Instructions: TAKE ONE TABLET BY MOUTH THREE TIMES DAILY aspirin 81 mg Tablet,Delayed Release (Dr/Ec) 81 mg PO DAILY Qty: 30 0RF nicotine 21 mg/24 hr Patch 24 Hour 1 patch transdermal DAILY Qty: 36 0RF nicotine 14 mg/24 hr patch 24 hour 1 patch transdermal DAILY Qty: 14 0RF Rx Instructions: take after finished 21 mcg nicotine 7 mg/24 hr patch 24 hour 1 patch transdermal DAILY Qty: 14 0RF Rx Instructions: take after finished 14 mcg albuterol sulfate 90 mcg/actuation HFA aerosol inhaler 2 inh inhalation Q6H PRN (Reason: shortness of breath or wheezing) Qty: 1 0RF Discharge Orders: Discharge ED (Routine); Ordered 04/12/24 Ordered By: Antonio Weathers Discharge Diet: Advance as tolerated Discharge Activity: Resume usual activity Patient Instructions: Asthma Exacerbation - Adult Coding Level of Care Code ED Filter Bed Placer for Shara Zaldivar
[2024-04-12] MEDS: methylPREDNISolone sod succ 125 mg/2 mL INJ IV (14:40)
[2024-04-12] MEDS: albuterol 2.5 mg/3 mL Neb 5 MG INHALATION (14:41)
[2024-04-12 14:44] VITALS: PULSE 95; RESP 22; O2SAT 95
[2024-04-12 14:44] LABS: Basophils # 0.1 10^3/uL (0.0-0.1); Basophils % 0.5 %; Eosinophils # 0.1 10^3/uL (0.0-0.8); Eosinophils % 0.4 %; Hematocrit 46.3 % (36-47); Lymphocytes # 1.9 10^3/uL (0.8-4.8); Mean Corpuscular Hemoglobin 30.6 pg (27-33); Mean Corpuscular Volume 92.6 fl (85-98); Mean Platelet Volume 10.2 fL (7.4-10.4); Monocytes # 0.4 10^3/uL (0.2-0.9); Monocytes % 3.1 %; Neutrophils # 9.36 10^3/uL (1.8-7.7); Neutrophils % 79.8 %; Nucleated Red Blood Cells % 0 %; Platelet Count 218 10^3/cmm (157-399); Red Cell Distribution Width 12.6 % (12.1-15.1); White Blood Count 11.73 10^3/uL (3.29-11.43)
[2024-04-12 14:50] VITALS: PULSE 96
[2024-04-12 15:09] LABS: Alanine Aminotransferase 18 U/L (0-33); Alkaline Phosphatase 90 U/L (35-105); Aspartate Amino Transferase 20 U/L (0-32); Blood Urea Nitrogen 24 mg/dL (6-20); Carbon Dioxide 25 mmol/L (22-29); Chloride 105 mmol/L (98-107); Globulin 3.2 g/dL (1.3-4.6); Glomerular Filtration Rate 29.8 mL/min (90-130); Glucose 128 mg/dL (65-115); NT Pro B Type Natriuretic Pept 2606 pg/mL (0-125); Osmolality Calculated 296 mOsm/kg (285-295); Sodium 140 mmol/L (136-145); Total Bilirubin 0.2 mg/dL (0.15-1.2); Total Protein 7.2 g/dL (6.6-8.7)
[2024-04-12 15:14] LABS: ABG PCO2 46.5 mmHg (35-45); ABG PH Result 7.36 (7.35-7.45); Arterial Blood Gas Hematocrit 48.1 % (37-47); Base Excess ABG 0.5 mmol/L (-2.0-2.0); Blood Gas Allen Test Pos; Blood Gas Operator Identificat AMH; Blood Gas Sample Site Radial, right; Blood Gas Sample Type Arterial; Carboxyhemoglobin 4.3 %THgb (0.4-20.1); HCO3 ABG 26.5 mmol/L (22-26); HGB O2 Sat 90.4 % (95-100); Methemoglobin 1.1 % (0.4-1.5); Oxygen Device ROOM AIR; PO2 ABG 73.8 mmHg (80.0-100.0); PO2 FiO2 Ratio Arterial Blood 351; Total Hemoglobin 15.7 g/dL (12-16)
[2024-04-12 15:19] LABS: Creatinine Clr Calc Pharmacy 40.5363
[2024-04-12 15:41] VITALS: BP 146/98; PULSE 104; RESP 19; O2SAT 94
== END 2024-04-12 15:48 | disposition home or self-care (01) ==
PROVIDERS: Emergency Provider Emergency Medicine
DX: J45.901 Unspecified asthma with (acute) exacerbation (principal); Z79.82 Long term (current) use of aspirin; F17.210 Nicotine dependence, cigarettes, uncomplicated
CPT/HCPCS: 36415; 36600; 71045; 80053; 82805; 83880; 85025; 93005; 94640; 96374; 99285; J2919; J7613

== ENCOUNTER 2024-04-18 14:22 | Inpatient (IN) | payer MEDICAID, SELFPAY ==
[2024-04-18] VITALS (20 sets, daily range): BP systolic 128–227; BP diastolic 94–162; PULSE 90–138; RESP 16–28; TEMP 36.7–37.1; O2SAT 89–97; BMI 30.4
--- NOTE | 2024-04-18 14:27 | XR_ITS ---
WS: [id number] Exam: XR chest 1V portable [id number] Date/Time of Exam: 04/18/2024 2:39 PM Reason For Exam: sob Comparison 04/12/2024. The lungs are fully expanded. No consolidated infiltrates are seen. Heart size top limits normal. The re are numerous curvilinear artifacts superimposing the mediastinum that may be from clothing. Bony s tructures are intact. XR/XR chest 1V portable [id number] IMPRESSION: 1. No acute cardiopulmonary finding.
--- NOTE | 2024-04-18 14:27 | ECG_ITS ---
[facility] Test Date: 2024-04-18 Pat Name: Yamileth Feliciano Department: Room: Gender: Female Director Toxicology: : 1975 Requested By: Antonio Weathers Order Number: [id number] Temo MD: Jarrell Steiner M.D. Measurements Intervals [place] Rate: 115 P: 73 FL: 148 QRS: -18 QRSD: 83 T: 80 QT: 335 QTc: 465 Interpretive Statements SINUS TACHYCARDIA POSSIBLE RIGHT ATRIAL ENLARGEMENT [0.25mV P-WAVE] POSSIBLE LEFT ATRIAL ENLARGEMENT [-0.1mV P-WAVE IN V1/V2] NONSPECIFIC ST & T-WAVE ABNORMALITY Compared to ECG 04/12/2024 15:14:24 T-wave abnormality now present Sinus rhythm no longer present Left ventricular hypertrophy no longer present ST (T wave) deviation no longer present Electronically Signed On 04-18-2024 16:27:10 CDT by Jarrell Steiner M.D. [id number]
--- NOTE | 2024-04-18 14:35 | ED_ITS ---
HPI - SOB/Dyspnea 2 General: Chief Complaint: Shortness of Breath/Dyspnea Stated Complaint: SOB Time Seen by Provider: 04/18/24 14:26 Source: patient and EMS Mode of arrival: EMS Limitations: no limitations History of Present Illness: HPI Narrative: 48-year-old female with a history of ast hma patient seen last week states she finished her steroid prescription eventually improved started having shortness of breath again today EMS has been given her DuoNebs and given her 2 doses she has had some improvement states she still feels short of breath she does have wheezing here she denies any cough or fever denies any pain. Associated symptoms: Deny abdominal pain, chest pain, fever(s), nausea or vomiting Related Data Previous Rx's Medication Instructions Recorded aspirin 81 mg tablet,delayed 81 mg PO DAILY #30 tabs 01/15/24 release nicotine 14 mg/24 hr daily 1 patch transdermal DAILY #14 ea 01/15/24 transdermal patch nicotine 21 mg/24 hr daily 1 patch transdermal DAILY #36 ea 01/15/24 transdermal patch nicotine 7 mg/24 hr daily 1 patch transdermal DAILY #14 ea 01/15/24 transdermal patch albuterol sulfate 90 mcg/actuation 1 inh inhalation Q6H PRN shortness 02/15/24 aerosol inhaler (ProAir HFA) of breath or wheezing #8.5 grams amlodipine 10 mg tablet 10 mg PO DAILY #90 tabs 02/15/24 atorvastatin 40 mg tablet 40 mg PO BEDTIME #90 tabs 02/15/24 metoprolol tartrate 25 mg tablet 25 mg PO BID@0900,2100 #180 tabs 02/15/24 albuterol sulfate 90 mcg/actuation 2 inh inhalation Q6H PRN shortness 03/10/24 aerosol inhaler of breath or wheezing #1 pump hydralazine 50 mg tablet See Rx Instructions .Route 03/28/24 .COMPLEX #90 tabs albuterol sulfate 2.5 mg/3 mL 2.5 mg (3 mL) inhalation Q4H PRN 04/12/24 (0.083 %) solution for nebulization shortness of breath or wheezing #90 mL prednisone 50 mg tablet 50 mg PO DAILY #5 tabs 04/12/24 Allergies Allergy/AdvReac Type Severity Reaction Status Date / Time hydromorphone [From Dilaudid] Allergy ADR-Migrain Verified 03/10/24 17:29 e Review of Systems 2 Const: Denies: fever(s), chills, body aches or change in appetite ENMT: Denies: throat pain or dental pain Card: Denies: chest pain Resp: Reports: dyspnea, non-productive cough and wheezing GI: Denies: abdominal pain, nausea, vomiting or diarrhea Musc: Denies: neck pain or back pain Skin/Breast: Denies: rash Neuro: Denies: headache(s) PFSH ED 2 PFSH: Social History Smoking and tobacco/nicotine status: current every day tobacco/nicotine user cigarettes Packs smoked per day: 1.5 Years cigarettes smoked: 30 Quit status (tobacco/nicotine): not considering quitting Second hand smoke exposure: Yes Current gender identity: Female Physical Exam 2 Const: COMMON NORMALS: patient oriented x3 HENMT: COMMON NORMALS: normocephalic and atraumatic HEAD & SCALP: n ormocephalic and atraumatic Eye: COMMON NORMALS: Equal, round and reactive pupils present and EOMs intact bilaterally PUPIL: Yes Equal, round and reactive pupils present Neck/C-Spine: COMMON NORMALS: full ROM and supple Chest: COMMONS NORMALS: normal inspection of the chest Resp: COMMON NORMALS: No retractions AUSCULTATION: wheezes Cardio: COMMON NORMALS: regular rate, regular rhythm and No murmurs present (Cardio) RATE: regular rate RHYTHM: regular rhythm GI: COMMON NORMALS: Normal to inspection, nondistended, normoactive bowel sounds present, Soft to palpation, non-tender and no masses PALPATION: Yes Soft to palpation Extremity: COMMON NORMALS: normal to inspection and full ROM Neuro: COMMON NORMALS: patient oriented x3, moves all extremities and no focal motor deficits Psych: COMMON NORMALS: mental status grossly normal, Normal thought process present and cooperative THOUGHT PROCESS: Normal thought process present Skin: COMMON NORMALS: no rashes or lesions noted and no wounds GENERAL SKIN EXAM: no rashes or lesions noted Course 2 Vital Signs: Vital signs: Vital Signs Temperature 98.5 F 04/18/24 14:26 Pulse Rate 119 H 04/18/24 16:30 Respiratory Rate 24 H 04/18/24 16:02 Blood Pressure 190/113 04/18/24 16:30 Pulse Oximetry 94 04/18/24 16:30 Oxygen Delivery Me thod Room Air 04/18/24 15:55 MDM - SOB/Dyspnea Medical Decision Making Patient presents for shortness of breath likely asthma exacerbation x-ray showed no pneumonia she does have an elevated BNP no signs of pulmonary edema. Having no chest pain here she has improved after breathing treatments but still requiring 2 L of oxygen I spoke to hospitalist will admit at this time. Patient is quite hypertensive here as well Medical Records I reviewed the patient's medical records. Lab Data I reviewed the patient's lab results. 04/18/24 14:58 04/18/24 14:58 Labs/Radiology: Radiology Impressions Chest X-Ray 04/18/24 14:27 IMPRESSION: 1. No acute cardiopulmonary finding. Laboratory Results WBC 14.07 10^3/uL (3.29-11.43) H 04/18/24 14:58 RBC 5.27 10^6/uL (3.85-5.65) 04/18/24 14:58 Hgb 16.00 g/dL (11.27-16.99) 04/18/24 14:58 Hct 49.6 % (36-47) H 04/18/24 14:58 MCV 94.1 fl (85-98) 04/18/24 14:58 MCH 30.4 pg (27-33) 04/18/24 14:58 MCHC 32.3 g/dL (30-55) 04/18/24 14:58 RDW 13.3 % (12.1-15.1) 04/18/24 14:58 Plt Count 215 10^3/cmm (157-399) 04/18/24 14:58 MPV 9.8 fL (7.4-10.4) 04/18/24 14:58 Neut % (Auto) 71.5 % 04/18/24 14:58 Lymph % (Auto) 21.0 % 04/18/24 14:58 [place] % (Auto) 6.8 % 04/18/24 14:58 Eos % (Auto) 0.2 % 04/18/24 14:58 Baso % (Auto) 0.1 % 04/18/24 14:58 Neut # (Auto) 10.05 10^3/uL (1.8-7.7) H 04/18/24 14:58 Lymph # (Auto) 3.0 10^3/uL (0.8-4.8) 04/18/24 14:58 [place] # (Auto) 1.0 10^3/uL (0.2-0.9) H 04/18/24 14:58 Eos # (Auto) 0.0 10^3/uL (0.0-0.8) 04/18/24 14:58 Baso # (Auto) 0.0 10^3/uL (0.0-0.1) 04/18/24 14:58 Nucleated RBC % (auto) 0 % 04/18/24 14:58 Nucleated RBCs # 0.0 /100WBC 04/18/24 14:58 Specimen Type Arterial 04/18/24 15:00 Sample Site Radial, left 04/18/24 15:00 ABG pH 7.43 (7.35-7.45) 04/18/24 15:00 ABG pCO2 45.7 mmHg (35-45) H 04/18/24 15:00 ABG pO2 52.5 mmHg (80.0-100.0) L 04/18/24 15:00 ABG PO2/FiO2 Ratio 250 04/18/24 15:00 ABG HCO3 29.9 mmol/L (22-26) H 04/18/24 15:00 ABG Base Excess 4.6 mmol/L (-2.0-2.0) H 04/18/24 15:00 Huber Test Pos 04/18/24 15:00 Hematocrit 49.8 % (37-47) H 04/18/24 15:00 Hgb O2 Saturation 87.2 % (95-100) L 04/18/24 15:00 Carboxyhemoglobin 2.0 %THgb (0.4-20.1) 04/18/24 15:00 Methemoglobin 1.0 % (0.4-1.5) 04/18/24 15:00 Total Hemoglobin 16.2 g/dL (12-16) H 04/18/24 15:00 O2 Delivery Device Room air 04/18/24 15:00 FiO2 21.0 % 04/18/24 15:00 Automotive Tire Tester ID glc 04/18/24 15:00 Sodium 142 mmol/L (136-145) 04/18/24 14:58 Potassium 3.4 mmol/L (3.5-5.1) L 04/18/24 14:58 Chloride 102 mmol/L (98-107) 04/18/24 14:58 Carbon Dioxide 26 mmol/L (22-29) 04/18/24 14:58 Anion Gap 17.4 (5-19) 04/18/24 14:58 BUN 28 mg/dL (6-20) H 04/18/24 14:58 Creatinine 1.3 mg/dL (0.5-0.9) H 04/18/24 14:58 GFR Calculation 43.4 mL/min (90-130) L 04/18/24 14:58 Glucose 120 mg/dL (65-115) H 04/18/24 14:58 Calculated Osmolality 301 mOsm/kg (285-295) H 04/18/24 14:58 Calcium 9.2 mg/dL (8.5-10.5) 04/18/24 14:58 Total Bilirubin 0.7 mg/dL (0.15-1.2) 04/18/24 14:58 AST 41 U/L (0-32) H 04/18/24 14:58 ALT 35 U/L (0-33) H 04/18/24 14:58 Alkaline Phosphatase 77 U/L (35-105) 04/18/24 14:58 NT-Pro-B Natriuret Pep 44563 pg/mL (0-125) H 04/18/24 14:58 Total Protein 7.4 g/dL (6.6-8.7) 04/18/24 14:58 Albumin 4.2 g/dL (3.5-5.2) 04/18/24 14:58 Globulin 3.2 g/dL (1.3-4.6) 04/18/24 14:58 Urine Opiates Screen Negative ng/mL (Negative) 04/18/24 16:18 Ur Barbiturates Screen Negative ng/mL (Negative) 04/18/24 16:18 Ur Phencyclidine Scrn Negative ng/mL (Negative) 04/18/24 16:18 Ur Amphetamines Screen Positive ng/mL (Negative) H 04/18/24 16:18 U Benzodiazepines Scrn Negative ng/mL (Negative) 04/18/24 16:18 Urine Cocaine Screen Negative ng/mL (Negative) 04/18/24 16:18 U Marijuana (THC) Screen Negative ng/mL (Negative) 04/18/24 16:18 All radiology interpretation(s) finalized by discharge EKG Data EKG 1: I personally reviewed and interpreted this EKG as follows: EKG Interpretation Date: 04/18/24 EKG interpretation time: 14:28 Interpretation: sinus tach hr [address] elevation qrs 83 tc 403 Discharge Plan Discharge Patient Disposition: Admitted As Inpatient Clinical Impression: Asthma exacerbation, Hypertension Condition: Stable Coding Level of Care Code ED Screw Machine Tool Setter for Shara Zaldivar
[2024-04-18] MEDS: hyDRALAzine 20 mg/mL INJ 1 mL 10 MG IVP (15:05)
[2024-04-18] MEDS: methylPREDNISolone sod succ 125 mg/2 mL INJ IVP (15:05)
[2024-04-18 15:13] LABS: Basophils % 0.1 %; Eosinophils % 0.2 %; Hematocrit 49.6 % (36-47); Mean Corpuscular HGB Conc 32.3 g/dL (30-55); Mean Corpuscular Hemoglobin 30.4 pg (27-33); Mean Corpuscular Volume 94.1 fl (85-98); Mean Platelet Volume 9.8 fL (7.4-10.4); Monocytes % 6.8 %; Neutrophils # 10.05 10^3/uL (1.8-7.7); Neutrophils % 71.5 %; Nucleated Red Blood Cells % 0 %; Platelet Count 215 10^3/cmm (157-399); Red Blood Count 5.27 10^6/uL (3.85-5.65); Red Cell Distribution Width 13.3 % (12.1-15.1); White Blood Count 14.07 10^3/uL (3.29-11.43)
[2024-04-18 15:13] LABS: ABG PCO2 45.7 mmHg (35-45); ABG PH Result 7.43 (7.35-7.45); Arterial Blood Gas Hematocrit 49.8 % (37-47); Base Excess ABG 4.6 mmol/L (-2.0-2.0); Blood Gas Allen Test Pos; Blood Gas Operator Identificat glc; Blood Gas Sample Site Radial, left; Blood Gas Sample Type Arterial; HCO3 ABG 29.9 mmol/L (22-26); HGB O2 Sat 87.2 % (95-100); Oxygen Device ROOM AIR; PO2 ABG 52.5 mmHg (80.0-100.0); PO2 FiO2 Ratio Arterial Blood 250; Total Hemoglobin 16.2 g/dL (12-16)
[2024-04-18] MEDS: ipratropium-albuterol 3 mL Neb INHALATION (15:19)
[2024-04-18 15:36] LABS: Alanine Aminotransferase 35 U/L (0-33); Albumin Level 4.2 g/dL (3.5-5.2); Alkaline Phosphatase 77 U/L (35-105); Anion Gap 17.4 (5-19); Aspartate Amino Transferase 41 U/L (0-32); Blood Urea Nitrogen 28 mg/dL (6-20); Calcium 9.2 mg/dL (8.5-10.5); Carbon Dioxide 26 mmol/L (22-29); Chloride 102 mmol/L (98-107); Creatinine Clr Calc Pharmacy 56.1271; Globulin 3.2 g/dL (1.3-4.6); Glomerular Filtration Rate 43.4 mL/min (90-130); Glucose 120 mg/dL (65-115); NT Pro B Type Natriuretic Pept 11151 pg/mL (0-125); Osmolality Calculated 301 mOsm/kg (285-295); Potassium 3.4 mmol/L (3.5-5.1); Sodium 142 mmol/L (136-145); Total Bilirubin 0.7 mg/dL (0.15-1.2); Total Protein 7.4 g/dL (6.6-8.7)
[2024-04-18] MEDS: racepinephrine 0.5 mL Neb INHALATION (15:53)
[2024-04-18] MEDS: hyDRALAzine 20 mg/mL INJ 1 mL IVP (16:04)
[2024-04-18 16:56] LABS: Amphetamines Screen Urine Positive (Negative); Barbiturates Screen Urine Negative (Negative); Benzodiazepines Screen Urine Negative (Negative); Cocaine Screen Urine Negative (Negative); Opiate Screen Urine Negative (Negative); PCP Screen Urine Negative (Negative); THC Screen Urine Negative (Negative)
[2024-04-18] MEDS: FUROsemide 10 mg/mL SDV 4mL 40 MG IVP ×2 (18:02→18:44)
--- NOTE | 2024-04-18 18:22 | CTR_ITS ---
PROCEDURE INFORMATION: Exam: CT Chest Without Contrast; Diagnostic Exam date and time: 04/18/2024 7:25 PM Age: 48 years old Clinical indication: Other: Copd; Additional info: Copd/pna TECHNIQUE: Imaging protocol: Diagnostic computed tomography of the chest without contrast. Radiation optimization: All CT scans at this facility use at least one of these dose optimization techniques: automated exposure control; mA and/or kV adjustment per patient size (includes targeted exams where dose is matched to clinical indication); or iterative reconstruction. COMPARISON: CR XR chest 1V portable [id number] 04/18/2024 2:32 PM RADIATION DOSE METRICS: Total DLP (mGy-cm): 490 FINDINGS: Lungs: Mild atelectasis versus linear scarring of the lung bases. No focal consolidations. Minimal emphysema changes. Pleural spaces: No pneumothorax. No pleural effusion. Heart: Mild cardiomegaly. Coronary arteries: Mild coronary artery calcifications. Lymph nodes: Unremarkable. No enlarged lymph nodes. Vasculature: Mild atherosclerotic calcifications. No aortic aneurysm. Bones/joints: No acute fracture. Mild spondylosis. Soft tissues: Unremarkable. CT/CT chest [facility] [id number] IMPRESSION: Mild atelectasis versus linear scarring of the lung bases. No focal consolidations.
--- NOTE | 2024-04-18 18:31 | PM.HP ---
Providers/Chief Complaint Admitting Physician: Reno Neal MD Chief Complaint: SOB History of Present Illness Yamileth Feliciano is a 48 year old female with past medical history of COPD, chronic smoker, diastolic heart failure, ACS with moderate to mild disease in LCx and LAD negative on IFR last checked in December 2023 present to the ER because of ongoing difficulty in breathing for last 1 month worsening over last 1 week. Shortness of breath gets worse on laying down and on minimal exertion. Complaining of cough with some expectoration. Expectoration occasionally is also blood-tinged. Denies any nausea counting, headache, chest pain. She had presented to the ER with similar complaints a week ago and she was diagnosed of having COPD exacerbation and discharged on oral steroids, inhalers and Z-Chris. Because she was not getting better she present to the ER. In the ER she was found to have elevated blood pressures and hypoxic respiratory failure for which she was placed on 10 L nasal mask, given overall 30 mg of IV hydralazine, nebulization treatment and 125 mg of IV Solu-Medrol. Examination patient is in respiratory distress on 10 L saturating 92% with blood pressure of 200/116 mmHg. Review of Systems General: Reports: 10 or more systems reviewed and unremarkable except in HPI and below Const: Denies: fever(s), chills, body aches, change in appetite, change in weight, malaise, night sweats, diaphoresis, change in sleep pattern, daytime sleepiness or snoring Eyes: Denies: change in vision, blurry vision, photophobia, eye discomfort or eye discharge ENMT: Denies: throat pain, enlarged tonsils, hoarseness, mouth pain, oral sores, dry mouth, tinnitus, nasal congestion or post nasal drip Card: Denies: chest pain, palpitations, irregular heart rhythm, edema, swelling of feet/ankles, lightheadedness, syncope, pre-syncope, dyspnea on exertion, orthopnea, leg pain with exertion or acrocyanosis Resp: Denies: dyspnea, productive cough, non-productive cough, wheezing, stridor, pain on inspiration, change in phlegm color, hemoptysis or chest congestion GI: Denies: abdominal pain, nausea, vomiting, hematemesis, coffee ground emesis, dysphagia, heartburn, diarrhea, constipation, bloating, GI cramping, change in bowel habits, pain on defecation, hematochezia or melena : Denies: flank pain, dysuria, urinary frequency, urinary urgency, urinary hesitancy, nocturia or hematuria Musc: Denies: neck pain, back pain, extremity pain, joint pain, joint swelling, joint redness, joint stiffness or limited range of motion Neuro: Denies: headache(s), numbness in extremities, weakness in extremities, sensory changes, lack of coordination, difficulty walking, frequent falls, dizziness, vertigo, confusion, Slurred speech present, difficulty communicating thoughts or seizure-like activity Psych: Denies: anxiety, depression, mood swings, panic attacks, hopelessness or irritability Endo: Denies: polyuria, polydipsia, tired all the time, cold intolerance, excessive sweating, flushing or heat intolerance Lazaro/Lymph: Denies: easy bruising or easy bleeding All/Imm: Denies: tongue swelling, facial swelling or acute wheezing Medications/Allergies Home Medications Medication Instructions Recorded Confirmed Last Taken Type aspirin 81 mg tablet,delayed 81 mg PO DAILY #30 tabs 01/15/24 02/15/24 Unknown Rx release nicotine 14 mg/24 hr daily 1 patch transdermal DAILY #14 ea 01/15/24 02/15/24 Unknown Rx transdermal patch nicotine 21 mg/24 hr daily 1 patch transdermal DAILY #36 ea 01/15/24 02/15/24 Unknown Rx transdermal patch nicotine 7 mg/24 hr daily 1 patch transdermal DAILY #14 ea 01/15/24 02/15/24 Unknown Rx transdermal patch albuterol sulfate 90 mcg/actuation 1 inh inhalation Q6H PRN shortness 02/15/24 02/15/24 Unknown Rx aerosol inhaler (ProAir HFA) of breath or wheezing #8.5 grams amlodipine 10 mg tablet 10 mg PO DAILY #90 tabs 02/15/24 02/15/24 Unknown Rx atorvastatin 40 mg tablet 40 mg PO BEDTIME #90 tabs 02/15/24 02/15/24 Unknown Rx metoprolol tartrate 25 mg tablet 25 mg PO BID@0900,2100 #180 tabs 02/15/24 02/15/24 Unknown Rx albuterol sulfate 90 mcg/actuation 2 inh inhalation Q6H PRN shortness 03/10/24 Unknown Rx aerosol inhaler of breath or wheezing #1 pump hydralazine 50 mg tablet See Rx Instructions .Route 03/28/24 Unknown Rx .COMPLEX #90 tabs albuterol sulfate 2.5 mg/3 mL 2.5 mg (3 mL) inhalation Q4H PRN 04/12/24 Unknown Rx (0.083 %) solution for nebulization shortness of breath or wheezing #90 mL prednisone 50 mg tablet 50 mg PO DAILY #5 tabs 04/12/24 Unknown Rx Allergies Allergy/AdvReac Type Severity Reaction Status Date / Time hydromorphone [From Dilaudid] Allergy ADR-Migrain Verified 03/10/24 17:29 e PFSH Acute PFSH: Medical History (Updated 04/18/24 @ 18:37 by Reno Neal MD) COPD (chronic obstructive pulmonary disease) CKD (chronic kidney disease) Diastolic heart failure Hypertension Coronary artery disease Coronary angiogram from 01/13 showed moderate disease in LCx and LAD?negative on IFR Abnormal stress test Cannabis use disorder, mild, abuse Amphetamine use disorder, severe, dependence Bipolar disorder in full remission Bipolar disorder Social History Smoking and tobacco/nicotine status: current every day tobacco/nicotine user cigarettes Packs smoked per day: 1.5 Years cigarettes smoked: 30 Quit status (tobacco/nicotine): not considering quitting Second hand smoke exposure: Yes Current gender identity: Female Vitals/I&O/Wt Last Vital Signs Temp 98.5 F 04/18/24 14:26 Pulse 119 H 04/18/24 16:30 Resp 24 H 04/18/24 16:02 BP 190/113 04/18/24 16:30 Pulse Ox 94 04/18/24 16:30 O2 Del Method Room Air 04/18/24 15:55 Weight last 48 hrs Weight 86.183 kg Physical Exam Narrative: General: In distress because shortness of breath, AO x 3, on 10 L oxygen mask HEENT: PERRLA, pupils bilaterally equal and reactive Chest: Bilateral bronchial breath sounds all over lung walsh, fine crackles to the mid lungs bilaterally CVS: S1-S2 regular, no murmurs, no tachycardia, no gallops, no rubs Abdomen: Soft, nontender, no organomegaly, bowel sounds present Neuro: No focal deficits, no facial deformity, AO x3, power 5/5 in all limbs Data 04/18/24 14:58 04/18/24 14:58 A&P Assessment and plan (1) Hypoxic respiratory failure: Insetting of diastolic heart failure due to hypertensive urgency along with COPD exacerbation. Oxygen supplementation keeping saturation over 90%. Switch to heated high flow for now. Maintain saturation of 90%. If continues to have difficulty breathing can plan for BiPAP ventilation. Appreciate ABG. Ipratropium, Xopenex every 6 hours, Pulmicort twice daily. Solu-Medrol 40 mg IV 6 hours needed. Check sputum culture, urine Legionella, bacterial antigen, MRSA swab, respiratory viral panel, procalcitonin, D-dimer. CT chest without contrast. Will plan to avoid contrast given CKD. Follow empirically start patient on IV ceftriaxone and oral azithromycin to cover for community-acquired pneumonia and atypical infection. (2) Hypertensive urgency: Goal blood pressure less than 140/90 mmHg. Blood pressures currently over 200. Start on nitro drip with target blood pressure of 160 mmHg. Continue with home dose of metoprolol, amlodipine, hydralazine. Uptitrate as for goal blood pressure. (3) Diastolic heart failure: Last echocardiogram from December 2023 showed normal EF with grade 1 diastolic dysfunction and PASP of 36 mmHg. Coronary angiogram from December 2023 showed moderate disease of LCx and LAD both negative on IFR. IV Lasix 40 mg daily. Fluid restriction to 1500 cc. Strict input output charting. Osorio catheter. (4) CKD (chronic kidney disease): Baseline creatinine since December 1.4-1.7. Currently 1.3. Medical reconciliation done for nephrotoxic drugs. Check urine lites, urine creatinine, urine eosinophils. Check renal ultrasound. (5) Hypertension: (6) COPD (chronic obstructive pulmonary disease): (7) Coronary artery disease: No active chest pain. Continue with home dose of aspirin, statin. Appreciate recent A1c and lipid panel. Qualifiers: Coronary Disease-Associated Artery/Lesion type: [place] artery [place] vs. transplanted heart: [place] heart Associated angina: without angina Qualified Code(s): I25.10 - Atherosclerotic heart disease of [place] coronary artery without angina pectoris Plan Amphetamine abuse: Urine drug screen positive for amphetamines. Monitor for drug withdrawal. Check HIV. Nicotine patch. Leukocytosis: Most likely in setting of steroid consumption at home. Given critical illness getting treatment for community-acquired as above. Check blood culture, sputum culture, urine Legionella, urine bacterial antigen. Full code Cardiac diet Protonix for PUD prophylaxis Heparin 5000 every 8 hourly for DVT prophylaxis Admit to ICU. Attestations Medical Necessity Statement*: Admission for more than 2 midnights for management of hypertensive urgency, respiratory failure in setting of diastolic heart failure exacerbation, COPD exacerbation in a patient with baseline CKD, CAD urine drug screen positive for amphetamines Critical Care Time: The high probability of a clinically significant, sudden or life threatening deterioration of the patient's [cardiac, respiratory,] system(s) required my full and direct attention, intervention and personal management. The critical care time is as shown. This time is in addition to time spent performing any reported procedures but includes the following: [x] Data and vital sign review and interpretation [x] Patient assessment, examination and intervention [x] Documentation [x] Medication orders and management Critical Care Time (min): 80 Coding Level of Care Code Critical Care >/= 30 minutes Critical care time (in minutes): 80 The high probability of a clinically significant, sudden or life threatening deterioration, as referenced in this documentation, required my full and direct attention, intervention and personal management. The critical care time shown is in addition to time spent performing any reported separately billable procedures and includes the following: [x] Data and vital sign review and interpretation [x] Patient assessment, examination and intervention [x] Medication orders and management [x] Patient/Family updates as able [x] Care Coordination and Documentation. Diagnoses Hypoxic respiratory failure J96.91 Hypertensive urgency I16.0 Diastolic heart failure I50.30 CKD (chronic kidney disease) N18.9 Hypertension I10 COPD (chronic obstructive pulmonary disease) J44.9 Coronary artery disease involving [place] coronary artery of [place] heart without angina pectoris I25.10 Coronary Disease-Associated Artery/Lesion type: [place] artery [place] vs. transplanted heart: [place] heart Associated angina: without angina
--- NOTE | 2024-04-18 19:00 | PC.NURSE ---
Report called by daysmaft nurse Maria Esther MISHRA to nurse in ICU.
[2024-04-18] MEDS: nitroglycerin drip 50 MG/250 ML PREMIX IV (19:09)
--- NOTE | 2024-04-18 19:41 | PC.NURSE ---
Patient was transported on monitor to CT, and then transferred to ICU room 7 on 5L NC. Bedside update was given to Angela MISHRA, all questions and concerns addressed. Patient was transferred with all paperwork and belongings. Receiving nurse informed that patient's would like update on patient status once settled.
[2024-04-18 19:56] LABS: Procalcitonin 0.07 ng/mL (0-0.5)
[2024-04-18] MEDS: magnesium sulfate premix 1 GM/100 ML PIGGYBACK IV (19:59)
[2024-04-18 20:03] LABS: Charge for UA Resulting for Rev
[2024-04-18 20:06] LABS: Bilirubin Urine Negative (Negative); Blood Urine Negative (Negative); Glucose Urine UA Negative (Normal); Ketones Urine Negative (Negative); Leukocyte Esterase Urine 1+ (Negative); Nitrate Urine Negative (Negative); Protein Urine 2+ (Negative); Urine Appearance Clear (CLEAR); Urine Color Yellow (Yellow)
[2024-04-18 20:11] LABS: Bacteria Urine Trace /hpf; Hyaline Casts Urine 1.21 /lpf; RBC Urine 0-2 /hpf (0-2); Squamous Epithelial Cell Urine 0-5 /hpf (0-5)
[2024-04-18] MEDS: heparin 5,000 unit/mL INJ 1 mL 5000 UNIT SUBCUT (20:13)
[2024-04-18] MEDS: cefTRIAXone 1,000 mg SDV 1000 MG IVP (20:13)
[2024-04-18 20:16] LABS: Add Urine Culture? No
[2024-04-18 20:20] LABS: Urine Creatinine 125 mg/dL (28-217)
[2024-04-18 20:30] LABS: Iron 54 ug/dL (37-145); Percent Saturation 20.4 % (20-50); Total Iron Binding Capacity 264 mcg/dl; Unsaturated Iron Binding 210 ug/dL (112-347)
[2024-04-18 20:47] LABS: Vitamin B12 406 pg/mL (232-1245)
[2024-04-18 21:02] LABS: Adenovirus Not Detected (NOT DETECT); Chlamydia Pneumoniae Not Detected (NOT DETECT); Coronavirus 229E,HKU1,NL63,OC4 Not Detected (NOT DETECT); Human Metapneumovirus Not Detected (NOT DETECT); Human Rhinovirus/Enterovirus Not Detected (NOT DETECT); Influenza A Not Detected (NOT DETECT); Influenza A H1 Not Detected (NOT DETECT); Influenza A H1-2009 Not Detected (NOT DETECT); Influenza A H3 Not Detected (NOT DETECT); Influenza B Not Detected (NOT DETECT); Mycoplasma Pneumoniae Not Detected (NOT DETECT); Parainfluenza Virus Type 1 Not Detected (NOT DETECT); Parainfluenza Virus Type 2 Not Detected (NOT DETECT); Parainfluenza Virus Type 3 Not Detected (NOT DETECT); Parainfluenza Virus Type 4 Not Detected (NOT DETECT); Respiratory Syncytial Virus A Not Detected (NOT DETECT); Respiratory Syncytial Virus B Not Detected (NOT DETECT); SARS-COV-2 Not Detected (NOT DETECT)
[2024-04-18] MEDS: ipratropium 0.5 mg/2.5 mL Neb INHALATION (21:11)
[2024-04-18] MEDS: levalbuterol 0.63 mg/3 mL Neb INHALATION (21:11)
[2024-04-18] MEDS: methylPREDNISolone sod succ 40 mg/mL INJ IVP (21:23)
[2024-04-18] MEDS: hyDRALAzine 50 mg Tablet PO (21:24)
[2024-04-18] MEDS: atorvastatin 40 mg Tablet PO (21:24)
[2024-04-18] MEDS: metoprolol tartrate 25 mg Tablet PO (21:24)
[2024-04-18] MEDS: morphine 4 mg/mL SDV 1 mL 2 MG IVP (22:17)
--- NOTE | 2024-04-18 22:19 | PC.NURSE ---
Pt stated acetaminophen does not work for her pain and does not want PO acetaminophen. She asked if she could just have the morphine instead. Gave pt 2mg ivp morphine.
[2024-04-19] VITALS (43 sets, daily range): BP systolic 95–166; BP diastolic 72–117; PULSE 72–115; RESP 14–26; TEMP 36.3–36.7; O2SAT 83–95; BMI 30.2
[2024-04-19] MEDS: magnesium hydroxide 30 mL UDC PO (02:37)
[2024-04-19] MEDS: methylPREDNISolone sod succ 40 mg/mL INJ IVP ×3 (02:38→20:17)
[2024-04-19] MEDS: levalbuterol 0.63 mg/3 mL Neb INHALATION ×4 (02:44→19:42)
[2024-04-19] MEDS: ipratropium 0.5 mg/2.5 mL Neb INHALATION ×4 (02:44→19:42)
[2024-04-19] MEDS: morphine 4 mg/mL SDV 1 mL 2 MG IVP ×2 (02:52→13:00)
[2024-04-19 03:50] LABS: Hematocrit 47.2 % (36-47); Lymphocytes # 0.7 10^3/uL (0.8-4.8); Lymphocytes % 9.1 %; Mean Corpuscular HGB Conc 32.6 g/dL (30-55); Mean Corpuscular Hemoglobin 30.1 pg (27-33); Mean Corpuscular Volume 92.2 fl (85-98); Mean Platelet Volume 9.7 fL (7.4-10.4); Monocytes # 0.1 10^3/uL (0.2-0.9); Monocytes % 1.4 %; Neutrophils # 6.93 10^3/uL (1.8-7.7); Neutrophils % 89.1 %; Nucleated Red Blood Cells % 0 %; Platelet Count 211 10^3/cmm (157-399); Red Blood Count 5.12 10^6/uL (3.85-5.65); Red Cell Distribution Width 13.1 % (12.1-15.1); White Blood Count 7.78 10^3/uL (3.29-11.43)
[2024-04-19 04:15] LABS: Alanine Aminotransferase 33 U/L (0-33); Albumin Level 3.9 g/dL (3.5-5.2); Alkaline Phosphatase 68 U/L (35-105); Anion Gap 18.7 (5-19); Aspartate Amino Transferase 33 U/L (0-32); Blood Urea Nitrogen 36 mg/dL (6-20); Calcium 9.1 mg/dL (8.5-10.5); Carbon Dioxide 30 mmol/L (22-29); Chloride 95 mmol/L (98-107); Creatinine Clr Calc Pharmacy 44.7578; Globulin 3.3 g/dL (1.3-4.6); Glomerular Filtration Rate 34.1 mL/min (90-130); Glucose 229 mg/dL (65-115); Magnesium 2.2 mg/dL (1.7-2.3); Osmolality Calculated 306 mOsm/kg (285-295); Phosphorus 4.1 mg/dL (2.5-4.5); Potassium 3.7 mmol/L (3.5-5.1); Sodium 140 mmol/L (136-145); Total Bilirubin 0.5 mg/dL (0.15-1.2); Total Protein 7.2 g/dL (6.6-8.7)
[2024-04-19 04:22] LABS: Procalcitonin 0.14 ng/mL (0-0.5)
[2024-04-19] MEDS: heparin 5,000 unit/mL INJ 1 mL 5000 UNIT SUBCUT ×3 (04:23→18:55)
--- NOTE | 2024-04-19 08:44 | PC.PHAR ---
Pt states does not take amlodipine 10mg or Atprvastatom 10mg. Last filled 02/15/24. Pt does not remember when she last took meds.
[2024-04-19] MEDS: nicotine 21 mg Patch 1 PATCH TRANSDERMA (09:03)
[2024-04-19] MEDS: hyDRALAzine 50 mg Tablet PO ×3 (09:03→20:16)
[2024-04-19] MEDS: pantoprazole DR 40 mg Tablet PO (09:04)
[2024-04-19] MEDS: aspirin 81 mg EC Tablet PO (09:04)
[2024-04-19] MEDS: metoprolol tartrate 25 mg Tablet PO ×2 (09:04→20:16)
[2024-04-19] MEDS: azithromycin 250 mg Tablet 500 MG PO (09:04)
[2024-04-19] MEDS: amlodipine 10 mg Tablet PO (09:04)
[2024-04-19] MEDS: FUROsemide 10 mg/mL SDV 4mL 40 MG IVP (09:05)
[2024-04-19] MEDS: budesonide 0.5 mg/2 mL Neb INHALATION ×2 (09:42→19:42)
--- NOTE | 2024-04-19 13:24 | PM.PN ---
Subjective Subjective: Seen this morning. Patient wheezing and appear short of breath that she just walked back from the bathroom. She says she may be feeling slightly better however still has trouble breathing. Vitals/I&O/Wt Last Vital Signs Temp 97.7 F 04/19/24 07:36 Pulse 76 04/19/24 12:00 Resp 17 04/19/24 12:00 BP 149/92 04/19/24 12:00 Pulse Ox 88 L 04/19/24 12:00 O2 Del Method Nasal Cannula 04/19/24 09:43 O2 Flow Rate 2 04/19/24 09:43 FiO2 32 04/18/24 21:23 04/18/24 04/19/24 04/19/24 22:59 06:59 14:59 Intake Total 226.625 / 226.625 802.425 / 1029.050 480 / 480 Output Total 1700 / 1700 900 / 2600 Balance -1473.375 / -1473.375 -97.575 / -1570.950 480 / 480 Weight last 48 hrs Weight 82.5 kg Weight 83 kg Weight 86.183 kg Physical Exam Narrative: General: In distress because shortness of breath, AO x 3, on 2 L oxygen mask HEENT: PERRLA, pupils bilaterally equal and reactive Chest: Bilateral bronchial breath sounds all over lung walsh, clear to auscultation bilaterally, tightness and wheezing h auscultated CVS: S1-S2 regular, no murmurs, no tachycardia, no gallops, no rubs Abdomen: Soft, nontender, no organomegaly, bowel sounds present Neuro: No focal deficits, no facial deformity, AO x3, Urinary Catheter Management: Osorio: Cath Placed During This Visit: yes Reason for Continuing Indwelling Catheter: Accurate Measurement of Urinary Output in Critically Ill Patients Urinary Catheter Date of Insertion: 04/18/24 Urinary Catheter Time of Insertion: 18:45 Data 04/19/24 03:30 04/19/24 03:30 Micro: Microbiology 04/18/24 22:08 Gram Stain - Final Sputum - Expectorated Sputum Sputum Culture - Preliminary 04/18/24 16:15 Legionella Urinary Antigen - Final Unknown Source 04/18/24 19:44 Blood Culture - Preliminary Blood SPECIMEN COLLECTED 04/18/24 19:17 Blood Culture - Preliminary Blood SPECIMEN COLLECTED A&P Assessment and plan (1) Hypoxic respiratory failure: Insetting of diastolic heart failure due to hypertensive urgency along with COPD exacerbation. Oxygen supplementation keeping saturation over 90%. Switch to heated high flow for now. Maintain saturation of 90%. If continues to have difficulty breathing can plan for BiPAP ventilation. Appreciate ABG. Ipratropium, Xopenex every 6 hours, Pulmicort twice daily. Solu-Medrol 40 mg IV 12 hours needed. Check sputum culture, urine Legionella, bacterial antigen, MRSA swab, respiratory viral panel, procalcitonin, D-dimer. CT chest without contrast. Will plan to avoid contrast given CKD. Follow empirically start patient on IV ceftriaxone and oral azithromycin to cover for community-acquired pneumonia and atypical infection. (2) Hypertensive urgency: Goal blood pressure less than 140/90 mmHg. Blood pressures currently over 200. Start on nitro drip with target blood pressure of 160 mmHg. Continue with home dose of metoprolol, amlodipine, hydralazine. Uptitrate as for goal blood pressure. (3) Diastolic heart failure: Last echocardiogram from December 2023 showed normal EF with grade 1 diastolic dysfunction and PASP of 36 mmHg. Coronary angiogram from December 2023 showed moderate disease of LCx and LAD both negative on IFR. IV Lasix 40 mg daily. Fluid restriction to 1500 cc. Strict input output charting. Osorio catheter. (4) CKD (chronic kidney disease): Baseline creatinine since December 1.4-1.7. Currently 1.3. Medical reconciliation done for nephrotoxic drugs. Check urine lites, urine creatinine, urine eosinophils. Check renal ultrasound. (5) Hypertension: (6) COPD (chronic obstructive pulmonary disease): (7) Coronary artery disease: No active chest pain. Continue with home dose of aspirin, statin. Appreciate recent A1c and lipid panel. Qualifiers: Coronary Disease-Associated Artery/Lesion type: [place] artery [place] vs. transplanted heart: [place] heart Associated angina: without angina Qualified Code(s): I25.10 - Atherosclerotic heart disease of [place] coronary artery without angina pectoris Plan Amphetamine abuse: Urine drug screen positive for amphetamines. Monitor for drug withdrawal. Check HIV. Nicotine patch. Leukocytosis: Most likely in setting of steroid consumption at home. Given critical illness getting treatment for community-acquired as above. Check blood culture, sputum culture, urine Legionella, urine bacterial antigen. Full code Cardiac diet Protonix for PUD prophylaxis Heparin 5000 every 8 hourly for DVT prophylaxis 04/19 Continue Solu-Medrol 40 twice daily DuoNeb every 6 hours scheduled. Continue ceftriaxone, azithromycin Continue current treatment and monitor response. Attestations Medical Necessity Statement*: Admission for more than 2 midnights for management of hypertensive urgency, respiratory failure in setting of diastolic heart failure exacerbation, COPD exacerbation in a patient with baseline CKD, CAD urine drug screen positive for amphetamines Coding Level of Care Code 84693 Diagnoses Hypoxic respiratory failure J96.91 Hypertensive urgency I16.0 Diastolic heart failure I50.30 CKD (chronic kidney disease) N18.9 Hypertension I10 COPD (chronic obstructive pulmonary disease) J44.9 Coronary artery disease involving [place] coronary artery of [place] heart without angina pectoris I25.10 Coronary Disease-Associated Artery/Lesion type: [place] artery [place] vs. transplanted heart: [place] heart Associated angina: without angina
[2024-04-19] MEDS: cefTRIAXone 1,000 mg SDV 1000 MG IVP (18:55)
[2024-04-19] MEDS: LORazepam 1 mg Tablet PO (19:05)
[2024-04-19] MEDS: atorvastatin 40 mg Tablet PO (20:16)
[2024-04-19] MEDS: acetaminophen 325 mg Tablet 650 MG PO (21:03)
[2024-04-20] VITALS (29 sets, daily range): BP systolic 113–156; BP diastolic 65–101; PULSE 63–100; RESP 13–29; TEMP 36.9–37.3; O2SAT 86–95; BMI 30.4; BMI 31.8
[2024-04-20] MEDS: levalbuterol 0.63 mg/3 mL Neb INHALATION ×3 (02:23→14:06)
[2024-04-20] MEDS: ipratropium 0.5 mg/2.5 mL Neb INHALATION ×3 (02:23→14:06)
--- NOTE | 2024-04-20 04:32 | PC.NURSE ---
Axtiexy: Pt awoke after several hours of resting peacefully, states she is anxious and is requesting medication. She is restless and distressed about her devi catheter. Dr. Wesley called @[phone]. New order for 1mg PO Ativan ONCE NOW and to d/c devi catheter. Pt is able to get to the [facility] w/ SBA.
[2024-04-20] MEDS: heparin 5,000 unit/mL INJ 1 mL 5000 UNIT SUBCUT ×3 (04:33→20:13)
[2024-04-20] MEDS: LORazepam 1 mg Tablet PO ×2 (04:38→20:23)
[2024-04-20 04:49] LABS: Blood Urea Nitrogen 52 mg/dL (6-20); Calcium 8.8 mg/dL (8.5-10.5); Carbon Dioxide 28 mmol/L (22-29); Chloride 97 mmol/L (98-107); Creatinine Clr Calc Pharmacy 47.3583; Glomerular Filtration Rate 36.8 mL/min (90-130); Glucose 148 mg/dL (65-115); Magnesium 2.6 mg/dL (1.7-2.3); Osmolality Calculated 301 mOsm/kg (285-295); Sodium 137 mmol/L (136-145)
[2024-04-20 04:53] LABS: Anion Gap 17.1 (5-19); Potassium 5.1 mmol/L (3.5-5.1)
[2024-04-20] MEDS: budesonide 0.5 mg/2 mL Neb INHALATION (07:28)
[2024-04-20] MEDS: hyDRALAzine 50 mg Tablet PO ×3 (08:41→20:08)
[2024-04-20] MEDS: methylPREDNISolone sod succ 40 mg/mL INJ IVP ×2 (08:41→17:50)
[2024-04-20] MEDS: metoprolol tartrate 25 mg Tablet PO ×2 (08:41→20:07)
[2024-04-20] MEDS: aspirin 81 mg EC Tablet PO (08:41)
[2024-04-20] MEDS: amlodipine 10 mg Tablet PO (08:41)
[2024-04-20] MEDS: nicotine 21 mg Patch 1 PATCH TRANSDERMA (08:41)
[2024-04-20] MEDS: pantoprazole DR 40 mg Tablet PO (08:41)
[2024-04-20] MEDS: azithromycin 250 mg Tablet 500 MG PO (08:41)
--- NOTE | 2024-04-20 09:05 | XR_ITS ---
WS: [id number] Exam: XR chest 1V portable [id number] Date/Time of Exam: 04/20/2024 9:16 AM Reason For Exam: sob Comparison 04/18/2024. The lungs are fully expanded and clear. No pleural effusions. Mild chronic interstitial changes in th e RIGHT base. Heart size is normal. The mediastinum is normal in contour. Old fracture deformity of t he posterior RIGHT seventh rib. XR/XR chest 1V portable [id number] IMPRESSION: 1. No acute cardiopulmonary process.
--- NOTE | 2024-04-20 09:06 | USCV_ITS ---
Yamileth Feliciano Age: 48 Gender: F : 1975 Exam Date: 04/20/2024 09:31 Ordering Phys: Janis Nuñez MD Technologist: Exam Location: [facility] – [place] Indication: chf BP: 130 / 70 HR: Rhythm: Sinus Technical Quality: Adequate MEASUREMENTS (Male / Female) Normal Values 2D ECHO LV Diastolic Diameter PLAX 4.9 cm 4.2 - 5.9 / 3.9 - 5.3 cm IVS Diastolic Thickness 1.7 cm 0.6 - 1.0 / 0.6 - 0.9 cm IVS Systolic Thickness 1.7 cm LVPW Diastolic Thickness 1.5 cm 0.6 - 1.0 / 0.6 - 0.9 cm LVPW Systolic Thickness 1.9 cm LVOT Diameter 1.8 cm LV Ejection Fraction 2D Teich 69.7 % LV Ejection Fraction MOD 4C 67.1 % LV Ejection Fraction MOD 2C 78.6 % LV Ejection Fraction 2C AL 79.9 % LA Diameter 2.6 cm RA Systolic Volume 4C AL 33.3 ml RA Systolic Volume 4C MOD 30.9 ml Aorta at Sinotubular Diameter 2.8 cm M-MODE LA Ao Ratio MM 1.1 AV Cusp Separation MM 2.0 cm FINDINGS Left Ventricle Normal LV size and ejection fraction of 67%. Moderate concentric left-ventricular hypertrophy. No gross wall motion abnormalities. Right Ventricle The right ventricle is normal in size and function. Right Atrium The right atrium is normal in size. Left Atrium Left atrium, upper limits of normal size. Mitral Valve Mild mitral annular calcification. Aortic Valve No gross abnormalities noted Tricuspid Valve No gross abnormalities noted Pulmonic Valve Pulmonic valve not well visualized. Pericardium Normal pericardium without effusion. Aorta Normal ascending aorta dimension. IVC The inferior vena cava appears normal. CONCLUSIONS Normal LV size and ejection fraction of 67%. Moderate concentric left-ventricular hypertrophy. No gross wall motion abnormalities. Left atrium, upper limits of normal size. Mild mitral annular calcification. There is no pericardial effusion. There are no intracardiac masses. Compared to the study from 01/10/2024, there may not be any significant change in the 2D findings Dr Bradley Balderas MD [facility] (Electronically Signed) Final Date: 21 April 2024 00:35 S
[2024-04-20] MEDS: LORazepam 2 mg/mL INJ 1 mL 0.25 MG IVP ×2 (09:27→15:41)
[2024-04-20] MEDS: FUROsemide 10 mg/mL SDV 2mL 20 MG IVP (10:59)
--- NOTE | 2024-04-20 12:46 | PM.PN ---
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 Vitals/I&O/Wt Last Vital Signs Temp 98.4 F 04/20/24 03:26 Pulse 88 04/20/24 10:15 Resp 28 H 04/20/24 09:00 BP 149/87 04/20/24 09:00 Pulse Ox 87 L 04/20/24 09:00 O2 Del Method Nasal Cannula 04/20/24 07:28 O2 Flow Rate 2.5 04/20/24 07:28 FiO2 32 04/18/24 21:23 04/19/24 04/20/24 04/20/24 22:59 06:59 14:59 Intake Total 710 / 1190 480 / 1670 240 / 240 Output Total 0 / 0 250 / 250 Balance 710 / 1190 230 / 1420 240 / 240 Weight last 48 hrs Weight 87 kg Weight 83 kg Weight 81.647 kg Weight 82.5 kg Weight 83 kg Weight 86.183 kg Physical Exam Narrative: General: In distress because shortness of breath, AO x 3, on 2 L oxygen mask HEENT: PERRLA, pupils bilaterally equal and reactive Chest: Bilateral bronchial breath sounds all over lung walsh, clear to auscultation bilaterally, decreased b/l air entry. CVS: S1-S2 regular, no murmurs, no tachycardia, no gallops, no rubs Abdomen: Soft, nontender, no organomegaly, bowel sounds present Neuro: No focal deficits, no facial deformity, AO x3, Urinary Catheter Management: Osorio: Cath Placed During This Visit: yes, but has since been removed by the nurse Reason for Continuing Indwelling Catheter: Accurate Measurement of Urinary Output in Critically Ill Patients Urinary Catheter Date of Insertion: 04/18/24 Urinary Catheter Time of Insertion: 18:45 Date Urinary Catheter Removed: 04/20/24 Time Urinary Catheter Discontinued: 04:30 Data 04/19/24 03:30 04/20/24 04:15 Micro: Microbiology 04/18/24 22:08 Gram Stain - Final Sputum - Expectorated Sputum Sputum Culture - Preliminary Strep agalactiae - (group b) 04/18/24 19:44 Blood Culture - Preliminary Blood NEGATIVE TO DATE 04/18/24 19:17 Blood Culture - Preliminary Blood NEGATIVE TO DATE A&P Assessment and plan (1) Hypoxic respiratory failure: Insetting of diastolic heart failure due to hypertensive urgency along with COPD exacerbation. Oxygen supplementation keeping saturation over 90%. Switch to heated high flow for now. Maintain saturation of 90%. If continues to have difficulty breathing can plan for BiPAP ventilation. Appreciate ABG. Ipratropium, Xopenex every 6 hours, Pulmicort twice daily. Solu-Medrol 40 mg IV 12 hours needed. Check sputum culture, urine Legionella, bacterial antigen, MRSA swab, respiratory viral panel, procalcitonin, D-dimer. CT chest without contrast. Will plan to avoid contrast given CKD. Follow empirically start patient on IV ceftriaxone and oral azithromycin to cover for community-acquired pneumonia and atypical infection. (2) Hypertensive urgency: Goal blood pressure less than 140/90 mmHg. Blood pressures currently over 200. Start on nitro drip with target blood pressure of 160 mmHg. Continue with home dose of metoprolol, amlodipine, hydralazine. Uptitrate as for goal blood pressure. (3) Diastolic heart failure: Last echocardiogram from December 2023 showed normal EF with grade 1 diastolic dysfunction and PASP of 36 mmHg. Coronary angiogram from December 2023 showed moderate disease of LCx and LAD both negative on IFR. IV Lasix 40 mg daily. Fluid restriction to 1500 cc. Strict input output charting. Osorio catheter. (4) CKD (chronic kidney disease): Baseline creatinine since December 1.4-1.7. Currently 1.3. Medical reconciliation done for nephrotoxic drugs. Check urine lites, urine creatinine, urine eosinophils. Check renal ultrasound. (5) Hypertension: (6) COPD (chronic obstructive pulmonary disease): (7) Coronary artery disease: No active chest pain. Continue with home dose of aspirin, statin. Appreciate recent A1c and lipid panel. Qualifiers: Coronary Disease-Associated Artery/Lesion type: [place] artery [place] vs. transplanted heart: [place] heart Associated angina: without angina Qualified Code(s): I25.10 - Atherosclerotic heart disease of [place] coronary artery without angina pectoris Plan Amphetamine abuse: Urine drug screen positive for amphetamines. Monitor for drug withdrawal. Check HIV. Nicotine patch. Leukocytosis: Most likely in setting of steroid consumption at home. Given critical illness getting treatment for community-acquired as above. Check blood culture, sputum culture, urine Legionella, urine bacterial antigen. Full code Cardiac diet Protonix for PUD prophylaxis Heparin 5000 every 8 hourly for DVT prophylaxis 04/19 Continue Solu-Medrol 40 twice daily DuoNeb every 6 hours scheduled. Continue ceftriaxone, azithromycin Continue current treatment and monitor response. 04/20 - check speech swallow eval - hold further lasix - check xray - consult psych - order xanax to monitor response - check neck CT - sputum positive for group b strep - continue solumedrol 40 q12h -check echo - ns 100 cc/hr Attestations Medical Necessity Statement*: continue mgmt for above conditions Diagnoses Hypoxic respiratory failure J96.91 Hypertensive urgency I16.0 Diastolic heart failure I50.30 CKD (chronic kidney disease) N18.9 Hypertension I10 COPD (chronic obstructive pulmonary disease) J44.9 Coronary artery disease involving [place] coronary artery of [place] heart without angina pectoris I25.10 Coronary Disease-Associated Artery/Lesion type: [place] artery [place] vs. transplanted heart: [place] heart Associated angina: without angina
--- NOTE | 2024-04-20 12:59 | CT_ITS ---
WS: [id number] CT NECK TECHNIQUE: Noncontrast CT of the neck with coronal and sagittal reformatted images. CLINICAL INFORMATION: possible stridor COMPARISON: None. DLP: 352.[address] scans at [facility] use at least one of these dose optimization techniques: automated e xposure control; mA and/or kV adjustment per patient size (includes targeted exams where dose is matc hed to clinical indication); or iterative reconstruction. FINDINGS: Exam performed without contrast due to renal insufficiency. Normal posterior nasopharynx and parapharyngeal fat. Normal vallecula. Epiglottis appears normal. The re is soft tissue thickening in the preepiglottic space with induration in the surrounding paraglotti c fat LEFT greater than RIGHT. Medial deviation of the LEFT true vocal cord. Nodularity in the LEFT p araglottic fat. Narrowing of the glottic airway due to medial deviation of the LEFT true vocal cord. Findings may be infectious/inflammatory or neoplastic. Subglottic airway appears patent. Normal thyroid gland. Lung apices are well aerated. Moderate spondy litic changes cervical spine with disc osteophyte complexes at C5-C6 and C6-C7 with mild central epifanio l stenosis. Mastoid air cells are well aerated. Paranasal sinuses are well aerated. Parotid glands ar e normal. Normal submandibular glands. No cervical lymphadenopathy. CT/CT neck wo con [id number] IMPRESSION: 1. Soft tissue thickening or nodule in the preepiglottic space with induration in the LEFT greater than RIGHT paraglottic fat. Findings may be infectious, in flammatory, or neoplastic in etiology. Consider ENT evaluation. 2. Medial deviation of the LEFT true vocal cord with significant narrowing of the glottis suspicious for LEFT vocal cord paralysis. 3. Subglottic airway is patent. 4. No cervical lymphadenopathy. 5. Normal salivary glands. Notified Janis Nuñez MD at 04/20/2024 3:09 PM.
--- NOTE | 2024-04-20 15:47 | P.NPUCON_ITS ---
Providers/Reason for Consult 2 Consulting Physican/Specialty*: Carmine Enriquez MD/Psychiatry Reason for Consult*: wants to restart medication for treatment of psychotic disorder Attending Physician: Janis Nuñez MD Psych Consult HPI History of Present Illness Yamileth Feliciano is a 48 year old female with past history of schizophrenia, bipolar disorder and methamphetamine abuse admitted to the intensive care unit with shortness of breath. Patient has a history of COPD and presented hypoxic and was evaluated today in the intensive care unit by the proposal manager writer of this note. The patient reports that she needs help with her anxiety and requested Xanax initially. She had reported that she had had previous problems with her hallucinations on Risperdal and wished to discuss another medication. The patient had reported that the risperidone had led to her having a problem with unusual movements in her face. She reports that she has not been on any psychotropic medications for at least 18 months. The patient reports continued use of methamphetamine despite adverse consequences. She did not report any suicidal or homicidal ideation. The patient reports a past history of julianna. She indicates a past history of ideas of reference including having the radio on the television talking directly to her. She had reported that these problems occurred in the presence of the use of methamphetamine as well. She had reported methamphetamine use for at least 20 years and was unable to provide any history of abstinence. She had reported no recent psychiatric hospitalizations. Inpatient psychiatric history: She has had least 3 previous hospitalizations with reports of no recent psychiatric hospitalization in the past 4 years. Outpatient psychiatric history: None currently with previous history of treatment at the behavioral health clinic more than [address] Perdomo. Current psychiatric medications: None Medical history: COPD, hypertension, chronic kidney disease coronary artery disease Surgical history noncontributory Substance abuse history: No reported history of inpatient substance use treatment. She had reported having a history of IV drug use including methamphetamine use beginning at the age of 20. She reported using marijuana since the age of 14 but denies any current alcohol use. Family psychiatric history: None reported Social history: She reports being and states that she has adult kids that live outside of the home. She reports having previously been on disability for medical reasons but reports recent loss of disability. She currently lives in [facility]. Meds Home Medications and Allergies Home Medications Medication Instructions Recorded Confirmed Last Taken Type aspirin 81 mg tablet,delayed 81 mg PO DAILY #30 tabs 01/15/24 04/19/24 Unknown Rx release nicotine 14 mg/24 hr daily 1 patch transdermal DAILY #14 ea 01/15/24 04/19/24 Unknown Rx transdermal patch nicotine 21 mg/24 hr daily 1 patch transdermal DAILY #36 ea 01/15/24 04/19/24 Unknown Rx transdermal patch nicotine 7 mg/24 hr daily 1 patch transdermal DAILY #14 ea 01/15/24 04/19/24 Unknown Rx transdermal patch amlodipine 10 mg tablet 10 mg PO DAILY #90 tabs 02/15/24 04/19/24 Unknown Rx atorvastatin 40 mg tablet 40 mg PO BEDTIME #90 tabs 02/15/24 04/19/24 Unknown Rx metoprolol tartrate 25 mg tablet 25 mg PO BID@0900,2100 #180 tabs 02/15/24 04/19/24 Unknown Rx albuterol sulfate 90 mcg/actuation 2 inh inhalation Q6H PRN shortness 03/10/24 04/19/24 Unknown Rx aerosol inhaler of breath or wheezing #1 pump hydralazine 50 mg tablet See Rx Instructions .Route 03/28/24 04/19/24 Unknown Rx .COMPLEX #90 tabs albuterol sulfate 2.5 mg/3 mL 2.5 mg (3 mL) inhalation Q4H PRN 04/12/24 04/19/24 Unknown Rx (0.083 %) solution for nebulization shortness of breath or wheezing #90 mL Allergies Allergy/AdvReac Type Severity Reaction Status Date / Time hydromorphone [From Dilaudid] Allergy ADR-Migrain Verified 03/10/24 17:29 e Current Medications Current Medications Generic Name Dose Route Start Last Admin Trade Name Freq PRN Reason Stop Dose Admin Acetaminophen 650 mg 04/18/24 19:53 04/19/24 21:03 Acetaminophen 325 Mg Tablet PO 650 mg Q6H PRN Administration Mild/Mod Pain Or Temp >/= 101 Amlodipine Besylate 10 mg 04/19/24 09:00 04/20/24 08:41 Amlodipine 10 Mg Tablet PO 10 mg DAILY PARDEEP Administration Aspirin 81 mg 04/19/24 09:00 04/20/24 08:41 Aspirin 81 Mg Ec Tablet PO 81 mg DAILY PARDEEP Administration Atorvastatin Calcium 40 mg 04/18/24 21:00 04/19/24 20:16 Atorvastatin 40 Mg Tablet PO 40 mg BEDTIME PARDEEP Administration Azithromycin 500 mg 04/19/24 09:00 04/20/24 08:41 Azithromycin 250 Mg Tablet PO 500 mg DAILY PARDEEP Administration Protocol Budesonide 0.5 mg 04/19/24 08:00 04/20/24 07:28 Budesonide 0.5 Mg/2 Ml Neb INHALATION 0.5 mg BID.RESPIRATORY PARDEEP Administration Ceftriaxone Sodium 1,000 mg 04/18/24 19:53 04/19/24 18:55 Ceftriaxone 1,000 Mg Sdv IVP 1,000 mg Q24H PARDEEP Administration Protocol Furosemide 40 mg 04/19/24 09:00 04/20/24 10:58 Furosemide 10 Mg/Ml Sdv 4ml IVP Not Given DAILY PARDEEP Heparin Sodium (Porcine) 5,000 unit 04/18/24 19:53 04/20/24 12:13 Heparin 5,000 Unit/Ml Inj 1 Ml SUBCUT 5,000 unit Q8H PARDEEP Administration Hydralazine HCl 50 mg 04/18/24 21:00 04/20/24 14:40 Hydralazine 50 Mg Tablet PO 50 mg TID PARDEEP Administration Nitroglycerin/Dextrose 50 mg in 250 mls @ 0 mls/hr 04/18/24 18:30 04/19/24 19:00 Nitroglycerin Drip IV Infused .Q0M PARDEEP Titration Protocol Per Protocol Ipratropium [place] 0.5 mg 04/18/24 20:00 04/20/24 14:06 Ipratropium 0.5 Mg/2.5 Ml Neb INHALATION 0.5 mg Q6H.RESP PARDEEP Administration Levalbuterol HCl 0.63 mg 04/18/24 20:00 04/20/24 14:06 Levalbuterol 0.63 Mg/3 Ml Neb INHALATION 0.63 mg Q6H.RESP PARDEEP Administration Lorazepam 0.25 mg 04/20/24 15:21 04/20/24 15:41 Lorazepam 2 Mg/Ml Inj 1 Ml IVP 0.25 mg Q8H PRN Administration ANXIETY Magnesium Hydroxide 30 ml 04/18/24 19:53 04/19/24 02:37 Magnesium Hydroxide 30 Ml Udc PO 30 ml DAILY PRN Administration Constipation (see protocol) Protocol Methylprednisolone Sodium Succinate 40 mg 04/19/24 21:00 04/20/24 08:41 Methylprednisolone Sod Succ 40 Mg/Ml Inj IVP 40 mg Q12H PARDEEP Administration Metoprolol Tartrate 25 mg 04/18/24 21:00 04/20/24 08:41 Metoprolol Tartrate 25 Mg Tablet PO 25 mg BID@0900,2100 PARDEEP Administration Morphine Sulfate 2 mg 04/18/24 19:53 04/19/24 13:00 Morphine 4 Mg/Ml Sdv 1 Ml IVP 2 mg Q4H PRN Administration SEVERE PAIN Nicotine 1 patch 04/19/24 09:00 04/20/24 08:41 Nicotine 21 Mg Patch TRANSDERMA 1 patch DAILY PARDEEP Administration Pantoprazole Sodium 40 mg 04/19/24 09:00 04/20/24 08:[address] 40 Mg Tablet PO 40 mg DAILY PARDEEP Administration PFSH NPU 2 PFSH: Medical History (Updated 04/20/24 @ 16:12 by Carmine Enriquez MD) COPD (chronic obstructive pulmonary disease) CKD (chronic kidney disease) Diastolic heart failure Hypertension Coronary artery disease Coronary angiogram from 01/13 showed moderate disease in LCx and LAD?negative on IFR Abnormal stress test Cannabis use disorder, mild, abuse Amphetamine use disorder, severe, dependence Bipolar disorder in full remission Bipolar disorder Social History Smoking and tobacco/nicotine status: current every day tobacco/nicotine user cigarettes Packs smoked per day: 1.5 Years cigarettes smoked: 30 Quit status (tobacco/nicotine): not considering quitting Second hand smoke exposure: Yes Current gender identity: Female Mental Status Exam 2 MSE Comments: This is an obese white female with adequate dress, poor grooming and fair eye contact. She appeared in great physical distress. Abnormal facial movements oralbuccal in nature with some abnormal arm movements that appeared dyskinetic. She was cooperative with exam in no acute distress. Speech was normal in rate and volume. Mood described as anxious. Her affect appeared mood congruent. Thought process was linear and organized. Thought content: Patient denied any suicidal or homicidal ideations, There were no delusions reported noted, she denied any auditory or visual hallucinations currently but reports fleeting auditory hallucinations. Attention and concentration were intact and memory appeared reliable and none were formally tested. She is alert and oriented ?3. Insight is poor and judgment is fair. Impulse control appeared poor. Vitals/I&O/Wt Last Vital Signs Temp 98.4 F 04/20/24 03:26 Pulse 85 04/20/24 14:12 Resp 22 H 04/20/24 14:06 BP 135/101 04/20/24 14:00 Pulse Ox 93 04/20/24 14:06 O2 Del Method Nasal Cannula 04/20/24 14:06 O2 Flow Rate 2.5 04/20/24 14:06 FiO2 32 04/18/24 21:23 04/20/24 04/20/24 04/20/24 06:59 14:59 22:59 Intake Total 480 / 1670 480 / 480 Output Total 250 / 250 500 / 500 Balance 230 / 1420 -20 / -20 Weight last 48 hrs Weight 87 kg Weight 83 kg Weight 81.647 kg Weight 82.5 kg Weight 83 kg Physical Exam 2 Urinary Catheter Management: Osorio: Cath Placed During This Visit: yes, but has since been removed by the nurse Reason for Continuing Indwelling Catheter: Accurate Measurement of Urinary Output in Critically Ill Patients Urinary Catheter Date of Insertion: 04/18/24 Urinary Catheter Time of Insertion: 18:45 Date Urinary Catheter Removed: 04/20/24 Time Urinary Catheter Discontinued: 04:30 Data NPU 04/19/24 03:30 04/20/24 04:15 Micro: Microbiology 04/18/24 22:08 Gram Stain - Final Sputum - Expectorated Sputum Sputum Culture - Preliminary Strep agalactiae - (group b) 04/18/24 19:44 Blood Culture - Preliminary Blood NEGATIVE TO DATE 04/18/24 19:17 Blood Culture - Preliminary Blood NEGATIVE TO DATE Microbiology 04/18/24 22:08 Sputum - Expectorated Sputum Gram Stain - Final 04/18/24 22:08 Sputum - Expectorated Sputum Sputum Culture - Preliminary Strep agalactiae - (group b) 04/18/24 19:44 Blood Blood Culture - Preliminary NEGATIVE TO DATE 04/18/24 19:17 Blood Blood Culture - Preliminary NEGATIVE TO DATE A&P Assessment and plan (1) Amphetamine use disorder, severe, dependence: (2) Unspecified psychosis: (3) Tardive dyskinesia: Plan 48 year old female with past hx of psychosis with previous history of schizophrenia and bipolar disorder NOS, requesting restarting medication for treatment of mood and psychosis. She also appears to have tardive dyskinesia. 1. Start low dose abilify 5mg daily for psychosis. 2. Consider high dose B6 to target tardive dyskinesia Begin at 100mg/day and titrate weekly by 100mg 3. Will follow Involuntary Hold Information 2 96 Hour Hold: 96 Hour Involuntary Admission: No Attestations NPU 2 Medical Necessity Statement*: NA/inpatient psychiatric treatment not necessary. Coding Level of Care Code Acute Code for g Fwd Diagnoses Amphetamine use disorder, severe, dependence F15.20 Unspecified psychosis F29 Tardive dyskinesia G24.01
--- NOTE | 2024-04-20 16:50 | PM.TDS ---
Transfer Summary Providers Date of Admission: 04/18/24 17:31 Date of Discharge/Transfer: 04/20/24 Attending Provider at Admission: Reno Neal MD Attending Provider at Transfer: Janis Nuñez MD Transfer Plans: Anticipated date of transfer: 04/20/24. Receiving Facility: [facility]. Additional transfer facility information: Dr. Masterson (ENT) to consult on patient at receiving hospital. . Diagnoses at Discharge Discharge Diagnosis (1) Amphetamine use disorder, severe, dependence: Status: Chronic (2) Unspecified psychosis: Status: Acute (3) Tardive dyskinesia: Status: Acute Reason for Visit Reason for Visit SOB Brief History: Yamileth Feliciano is a 48 year old female with past medical history of COPD, chronic smoker, diastolic heart failure, ACS with moderate to mild disease in LCx and LAD negative on IFR last checked in December 2023 present to the ER because of ongoing difficulty in breathing for last 1 month worsening over last 1 week. Shortness of breath gets worse on laying down and on minimal exertion. Complaining of cough with some expectoration. Expectoration occasionally is also blood-tinged. Denies any nausea counting, headache, chest pain. She had presented to the ER with similar complaints a week ago and she was diagnosed of having COPD exacerbation and discharged on oral steroids, inhalers and Z-Chris. Because she was not getting better she present to the ER. In the ER she was found to have elevated blood pressures and hypoxic respiratory failure for which she was placed on 10 L nasal mask, given overall 30 mg of IV hydralazine, nebulization treatment and 125 mg of IV Solu-Medrol. Examination patient is in respiratory distress on 10 L saturating 92% with blood pressure of 200/116 mmHg. Hospital Course Hospital Course Patient was initially admitted for COPD exacerbation however it was noted that during hospitalization she had developed a mild stridor. She has been requiring oxygen during hospitalization however has not been on any oxygen at home. CT neck was performed which shows: 1. Soft tissue thickening or nodule in the preepiglottic space with induration in the LEFT greater than RIGHT paraglottic fat. Findings may be infectious, inflammatory, or neoplastic in etiology. Consider ENT evaluation. 2. Medial deviation of the LEFT true vocal cord with significant narrowing of the glottis suspicious for LEFT vocal cord paralysis. 3. Subglottic airway is patent. 4. No cervical lymphadenopathy. 5. Normal salivary glands. We currently do not have ENT coverage at the hospital. Discussed with radiologist at length. Patient will need laryngoscopy at this point. Discussed with ENT specialist at [facility] with accepted patient for transfer. Patient is able to protect her airway at this time and is requiring 2 to 4 L of oxygen. She is on Solu-Medrol 40 IV every 8 hours. She will be transferred in stable condition. Pt is being continued on xanax for anxiety. Pt was seen by psychiatry today for anxiety and restlessness as well. She carries a hx of schizophrenia and currently not on medications. Please see psych consult note. Recommendation to start abilify 5 mg BID. She is follow up outpatient with psych after discharge. Physical Exam Narrative: General: Not in acute respiratory distress, does have an intermittent stridor. on 3L NC at this time. AOx3 HEENT: PERRLA, pupils bilaterally equal and reactive Chest: Bilateral bronchial breath sounds all over lung walsh, clear to auscultation bilaterally, decreased b/l air entry. CVS: S1-S2 regular, no murmurs, no tachycardia, no gallops, no rubs Abdomen: Soft, nontender, no organomegaly, bowel sounds present Neuro: No focal deficits, no facial deformity, AO x3, Urinary Catheter Management: Osorio: Cath Placed During This Visit: yes, but has since been removed by the nurse Reason for Continuing Indwelling Catheter: Accurate Measurement of Urinary Output in Critically Ill Patients Urinary Catheter Date of Insertion: 04/18/24 Urinary Catheter Time of Insertion: 18:45 Date Urinary Catheter Removed: 04/20/24 Time Urinary Catheter Discontinued: 04:30 TS Data Studies Completed and Pending Pending at discharge Category Date Time Status Bacterial Antigen Stat Lab 04/18/24 16:15 Received Basic Metabolic Panel AM LABS Lab 04/21/24 04:00 Ordered Blood Culture Stat Lab 04/18/24 19:44 Results Complete Blood Count w/Auto AM LABS Lab 04/21/24 04:00 Ordered MRSA [Methicillin Resistant S.aureu] Routine Lab 04/18/24 14:35 Received Magnesium AM LABS Lab 04/21/24 04:00 Ordered Sputum Culture and Gram Stain Stat Lab 04/18/24 22:08 Results CV. echo limited [id number] Routine Ultrasound 04/20/24 09:06 Taken Completed Studies During Hospitalization Category Date Time Status CT chest wo con [id number] Stat Cat Scan 04/18/24 18:[address] neck wo con [id number] Routine Cat Scan 04/20/24 12:59 Completed XR chest 1V portable [id number] Routine Exams 04/20/24 09:05 Completed XR chest 1V portable [id number] Stat Exams 04/18/24 14:27 Completed Laboratory Last Values WBC 7.78 10^3/uL (3.29-11.43) 04/19/24 03:30 RBC 5.12 10^6/uL (3.85-5.65) 04/19/24 03:30 Hgb 15.40 g/dL (11.27-16.99) 04/19/24 03:30 Hct 47.2 % (36-47) H 04/19/24 03:30 MCV 92.2 fl (85-98) 04/19/24 03:30 MCH 30.1 pg (27-33) 04/19/24 03:30 MCHC 32.6 g/dL (30-55) 04/19/24 03:30 RDW 13.1 % (12.1-15.1) 04/19/24 03:30 Plt Count 211 10^3/cmm (157-399) 04/19/24 03:30 MPV 9.7 fL (7.4-10.4) 04/19/24 03:30 Neut % (Auto) 89.1 % 04/19/24 03:30 Lymph % (Auto) 9.1 % 04/19/24 03:30 [place] % (Auto) 1.4 % 04/19/24 03:30 Eos % (Auto) 0.0 % 04/19/24 03:30 Baso % (Auto) 0.0 % 04/19/24 03:30 Neut # (Auto) 6.93 10^3/uL (1.8-7.7) 04/19/24 03:30 Lymph # (Auto) 0.7 10^3/uL (0.8-4.8) L 04/19/24 03:30 [place] # (Auto) 0.1 10^3/uL (0.2-0.9) L 04/19/24 03:30 Eos # (Auto) 0.0 10^3/uL (0.0-0.8) 04/19/24 03:30 Baso # (Auto) 0.0 10^3/uL (0.0-0.1) 04/19/24 03:30 Nucleated RBC % (auto) 0 % 04/19/24 03:30 Nucleated RBCs # 0.0 /100WBC 04/19/24 03:30 D-Dimer 0.50 ug/mLFEU (0-0.59) 04/18/24 19:17 Specimen Type Arterial 04/18/24 15:00 Sample Site Radial, left 04/18/24 15:00 ABG pH 7.43 (7.35-7.45) 04/18/24 15:00 ABG pCO2 45.7 mmHg (35-45) H 04/18/24 15:00 ABG pO2 52.5 mmHg (80.0-100.0) L 04/18/24 15:00 ABG PO2/FiO2 Ratio 250 04/18/24 15:00 ABG HCO3 29.9 mmol/L (22-26) H 04/18/24 15:00 ABG Base Excess 4.6 mmol/L (-2.0-2.0) H 04/18/24 15:00 Huber Test Pos 04/18/24 15:00 Hematocrit 49.8 % (37-47) H 04/18/24 15:00 Hgb O2 Saturation 87.2 % (95-100) L 04/18/24 15:00 Carboxyhemoglobin 2.0 %THgb (0.4-20.1) 04/18/24 15:00 Methemoglobin 1.0 % (0.4-1.5) 04/18/24 15:00 Total Hemoglobin 16.2 g/dL (12-16) H 04/18/24 15:00 O2 Delivery Device Room air 04/18/24 15:00 FiO2 21.0 % 04/18/24 15:00 Fern Cutter ID glc 04/18/24 15:00 Sodium 137 mmol/L (136-145) 04/20/24 04:15 Potassium 5.1 mmol/L (3.5-5.1) 04/20/24 04:15 Chloride 97 mmol/L (98-107) L 04/20/24 04:15 Carbon Dioxide 28 mmol/L (22-29) 04/20/24 04:15 Anion Gap 17.1 (5-19) 04/20/24 04:15 BUN 52 mg/dL (6-20) H 04/20/24 04:15 Creatinine 1.5 mg/dL (0.5-0.9) H 04/20/24 04:15 GFR Calculation 36.8 mL/min (90-130) L 04/20/24 04:15 Glucose 148 mg/dL (65-115) H 04/20/24 04:15 Calculated Osmolality 301 mOsm/kg (285-295) H 04/20/24 04:15 Calcium 8.8 mg/dL (8.5-10.5) 04/20/24 04:15 Phosphorus 4.1 mg/dL (2.5-4.5) 04/19/24 03:30 Magnesium 2.6 mg/dL (1.7-2.3) H 04/20/24 04:15 Iron 54 ug/dL (37-145) 04/18/24 17:58 TIBC 264 mcg/dl 04/18/24 17:58 % Saturation 20.4 % (20-50) 04/18/24 17:58 Unsat Iron Binding 210 ug/dL (112-347) 04/18/24 17:58 Total Bilirubin 0.5 mg/dL (0.15-1.2) 04/19/24 03:30 AST 33 U/L (0-32) H 04/19/24 03:30 ALT 33 U/L (0-33) 04/19/24 03:30 Alkaline Phosphatase 68 U/L (35-105) 04/19/24 03:30 NT-Pro-B Natriuret Pep 21819 pg/mL (0-125) H 04/18/24 14:58 Total Protein 7.2 g/dL (6.6-8.7) 04/19/24 03:30 Albumin 3.9 g/dL (3.5-5.2) 04/19/24 03:30 Globulin 3.3 g/dL (1.3-4.6) 04/19/24 03:30 Vitamin B12 406 pg/mL (232-1245) 04/18/24 17:58 Folate 10.0 ng/mL (4.8-37.3) 04/19/24 03:30 Procalcitonin 0.14 ng/mL (0-0.5) 04/19/24 03:30 Urine Color Yellow (Yellow) 04/18/24 16:18 Urine Appearance Clear (CLEAR) 04/18/24 16:18 Urine pH 5.0 (5-7) 04/18/24 16:18 Ur Specific [place] 1.020 (1.005-1.030) 04/18/24 16:18 Urine Protein 2+ (Negative) A 04/18/24 16:18 Urine Glucose (UA) Negative (Normal) 04/18/24 16:18 Urine Ketones Negative (Negative) 04/18/24 16:18 Urine Blood Negative (Negative) 04/18/24 16:18 Urine Nitrate Negative (Negative) 04/18/24 16:18 Urine Bilirubin Negative (Negative) 04/18/24 16:18 Urine Urobilinogen 1.0 mg/dL (Negative) 04/18/24 16:18 Ur Leukocyte Esterase 1+ (Negative) A 04/18/24 16:18 Urine RBC 0-2 /hpf (0-2) 04/18/24 16:18 Urine WBC 11-20 /hpf (0-5) H 04/18/24 16:18 Ur Squamous Epith Cells 0-5 /hpf (0-5) 04/18/24 16:18 Amorphous Sediment Not Reportable 04/18/24 16:18 Urine Bacteria Trace /hpf (NONE) 04/18/24 16:18 Hyaline Casts 1.21 /lpf 04/18/24 16:18 Urine Creatinine 125 mg/dL (28-217) 04/18/24 16:18 Urine Opiates Screen Negative ng/mL (Negative) 04/18/24 16:18 Ur Barbiturates Screen Negative ng/mL (Negative) 04/18/24 16:18 Ur Phencyclidine Scrn Negative ng/mL (Negative) 04/18/24 16:18 Ur Amphetamines Screen Positive ng/mL (Negative) H 04/18/24 16:18 U Benzodiazepines Scrn Negative ng/mL (Negative) 04/18/24 16:18 Urine Cocaine Screen Negative ng/mL (Negative) 04/18/24 16:18 U Marijuana (THC) Screen Negative ng/mL (Negative) 04/18/24 16:18 Adenovirus (PCR) Not detected (NOT DETECT) 04/18/24 18:49 C. pneumoniae DNA (PCR) Not detected (NOT DETECT) 04/18/24 18:49 Coronavirus 229E (PCR) Not detected (NOT DETECT) 04/18/24 18:49 Human Metapneumovir PCR Not detected (NOT DETECT) 04/18/24 18:49 Influenza A (H1) PCR Not detected (NOT DETECT) 04/18/24 18:49 Influ A (H1/09) PCR Not detected (NOT DETECT) 04/18/24 18:49 Influenza A (H3) PCR Not detected (NOT DETECT) 04/18/24 18:49 Influenza Type A (PCR) Not detected (NOT DETECT) 04/18/24 18:49 Influenza Type B (PCR) Not detected (NOT DETECT) 04/18/24 18:49 M. pneumoniae (PCR) Not detected (NOT DETECT) 04/18/24 18:49 Parainfluenza 1 (PCR) Not detected (NOT DETECT) 04/18/24 18:49 Parainfluenza 2 (PCR) Not detected (NOT DETECT) 04/18/24 18:49 Parainfluenza 3 (PCR) Not detected (NOT DETECT) 04/18/24 18:49 Parainfluenza 4 (PCR) Not detected (NOT DETECT) 04/18/24 18:49 RSV Type A (PCR) Not detected (NOT DETECT) 04/18/24 18:49 RSV Type B (PCR) Not detected (NOT DETECT) 04/18/24 18:49 Entero/Rhino (PCR) Not detected (NOT DETECT) 04/18/24 18:49 SARS-CoV-2 (PCR) Not detected (NOT DETECT) 04/18/24 18:[address] 04/18/24 18:22 IMPRESSION: Mild atelectasis versus linear scarring of the lung bases. No focal consolidations. Chest X-Ray 04/20/24 09:05 IMPRESSION: 1. No acute cardiopulmonary process. Neck CT 04/20/24 12:59 IMPRESSION: 1. Soft tissue thickening or nodule in the preepiglottic space with induration in the LEFT greater than RIGHT paraglottic fat. Findings may be infectious, inflammatory, or neoplastic in etiology. Consider ENT evaluation. 2. Medial deviation of the LEFT true vocal cord with significant narrowing of the glottis suspicious for LEFT vocal cord paralysis. 3. Subglottic airway is patent. 4. No cervical lymphadenopathy. 5. Normal salivary glands. Notified Janis MD Savannah at 04/20/2024 3:09 PM. Recent Clincial Data Last Vital Signs Temp 98.4 F 04/20/24 03:26 Pulse 85 04/20/24 14:12 Resp 22 H 04/20/24 14:06 BP 135/101 04/20/24 14:00 Pulse Ox 93 04/20/24 14:06 O2 Del Method Nasal Cannula 04/20/24 14:06 O2 Flow Rate 2.5 04/20/24 14:06 FiO2 32 04/18/24 21:23 Vital Signs Pulse Resp BP Pulse Ox O2 Del Method O2 Flow Rate 04/20/24 14:12 85 04/20/24 14:06 89 22 H 93 Nasal Cannula 2.5 04/20/24 14:00 85 04/20/24 14:00 84 15 135/101 91 04/20/24 13:00 81 129/75 95 04/20/24 12:00 93 04/20/24 11:00 82 89 L 04/20/24 10:15 88 04/20/24 09:00 93 28 H 149/87 87 L 04/20/24 08:00 76 20 H 130/77 86 L 04/20/24 07:28 74 16 94 Nasal Cannula 2.5 04/20/24 07:00 65 15 130/77 90 04/20/24 06:00 86 24 H 124/76 88 L 04/20/24 05:37 90 04/20/24 05:00 85 29 H 91 Intake & Output/Weight 04/18/24 04/19/24 04/20/24 04/21/24 06:59 06:59 06:59 06:59 Intake Total 1029.050 / 9191.067 5527 / 1670 480 / 480 Output Total 2600 / 2600 250 / 250 500 / 500 Balance -1570.950 / -7476.311 7837 / 1420 -20 / -20 Weight 82.5 kg 83 kg 87 kg Vitals Last Vital Signs Temp 98.4 F 04/20/24 03:26 Pulse 85 04/20/24 14:12 Resp 22 H 04/20/24 14:06 BP 135/101 04/20/24 14:00 Pulse Ox 93 04/20/24 14:06 O2 Del Method Nasal Cannula 04/20/24 14:06 O2 Flow Rate 2.5 04/20/24 14:06 FiO2 32 04/18/24 21:23 TS Medications Medications Acetaminophen (Acetaminophen 325 Mg Tablet) 650 mg PO Q6H PRN PRN Reason: Mild/Mod Pain Or Temp >/= 101 Last Admin: 04/19/24 21:03 Dose: 650 mg Amlodipine Besylate (Amlodipine 10 Mg Tablet) 10 mg PO DAILY PARDEEP Last Admin: 04/20/24 08:41 Dose: 10 mg Aripiprazole (Aripiprazole 10 Mg Tablet) 5 mg PO DAILY PARDEEP Aspirin (Aspirin 81 Mg Ec Tablet) 81 mg PO DAILY PARDEEP Last Admin: 04/20/24 08:41 Dose: 81 mg Atorvastatin Calcium (Atorvastatin 40 Mg Tablet) 40 mg PO BEDTIME PARDEEP Last Admin: 04/19/24 20:16 Dose: 40 mg Azithromycin (Azithromycin 250 Mg Tablet) 500 mg PO DAILY PARDEEP; Protocol Last Admin: 04/20/24 08:41 Dose: 500 mg Bisacodyl (Bisacodyl 5 Mg Tablet) 10 mg PO DAILY PRN; Protocol PRN Reason: Constipation (see protocol) Budesonide (Budesonide 0.5 Mg/2 Ml Neb) 0.5 mg INHALATION BID.RESPIRATORY PARDEEP Last Admin: 04/20/24 07:28 Dose: 0.5 mg Ceftriaxone Sodium (Ceftriaxone 1,000 Mg Sdv) 1,000 mg IVP Q24H [facility]DEEP; Protocol Last Admin: 04/19/24 18:55 Dose: 1,000 mg Furosemide (Furosemide 10 Mg/Ml Sdv 4ml) 40 mg IVP DAILY PARDEEP Last Admin: 04/20/24 10:58 Dose: Not Given Heparin Sodium (Porcine) (Heparin 5,000 Unit/Ml Inj 1 Ml) 5,000 unit SUBCUT Q8H PARDEEP Last Admin: 04/20/24 12:13 Dose: 5,000 unit Hydralazine HCl (Hydralazine 50 Mg Tablet) 50 mg PO TID PARDEEP Last Admin: 04/20/24 14:40 Dose: 50 mg Hydralazine HCl (Hydralazine 20 Mg/Ml Inj 1 Ml) 10 mg IVP Q4H PRN PRN Reason: SBP More than 160 mmhg Nitroglycerin/Dextrose (Nitroglycerin Drip) 50 mg in 250 mls @ 0 mls/hr IV .Q0M [facility]; Protocol Last Titration: 04/19/24 19:00 Dose: Infused Ipratropium [place] (Ipratropium 0.5 Mg/2.5 Ml Neb) 0.5 mg INHALATION Q6H.RESP [facility] Last Admin: 04/20/24 14:06 Dose: 0.5 mg Lactulose (Lactulose Oral Liq 20 Gm/30 Ml Udc) 10 gm PO DAILY PRN; Protocol PRN Reason: Constipation (see protocol) Levalbuterol HCl (Levalbuterol 0.63 Mg/3 Ml Neb) 0.63 mg INHALATION Q6H.RESP [facility] Last Admin: 04/20/24 14:06 Dose: 0.63 mg Lorazepam (Lorazepam 2 Mg/Ml Inj 1 Ml) 0.25 mg IVP Q8H PRN PRN Reason: ANXIETY Last Admin: 04/20/24 15:41 Dose: 0.25 mg Magnesium Hydroxide (Magnesium Hydroxide 30 Ml Udc) 30 ml PO DAILY PRN; Protocol PRN Reason: Constipation (see protocol) Last Admin: 04/19/24 02:37 Dose: 30 ml Methylprednisolone Sodium Succinate (Methylprednisolone Sod Succ 40 Mg/Ml Inj) 40 mg IVP Q8H [facility] Metoprolol Tartrate (Metoprolol Tartrate 25 Mg Tablet) 25 mg PO BID@0900,2100 [facility] Last Admin: 04/20/24 08:41 Dose: 25 mg Morphine Sulfate (Morphine 4 Mg/Ml Sdv 1 Ml) 2 mg IVP Q4H PRN PRN Reason: SEVERE PAIN Last Admin: 04/19/24 13:00 Dose: 2 mg Nicotine (Nicotine 21 Mg Patch) 1 patch TRANSDERMA DAILY [facility] Last Admin: 04/20/24 08:41 Dose: 1 patch Ondansetron HCl (Ondansetron 2 Mg/Ml Sdv 2 Ml) 4 mg IVP Q8H PRN PRN Reason: vomiting, or N/V if npo Pantoprazole Sodium (Pantoprazole Dr 40 Mg Tablet) 40 mg PO DAILY [facility] Last Admin: 04/20/24 08:41 Dose: 40 mg Pyridoxine HCl (Pyridoxine 50 Mg Tablet) 50 mg PO BID [facility] Discontinued Medications Albuterol/Ipratropium (Ipratropium-Albuterol 3 Ml Neb) 3 ml INHALATION ONCE ONE Stop: 04/18/24 14:31 Last Admin: 04/18/24 15:19 Dose: 3 ml Alprazolam (Alprazolam 0.5 Mg Tablet) 0.25 mg PO ONCE ONE Stop: 04/20/24 08:57 Last Admin: 04/20/24 11:05 Dose: Not Given Epinephrine (Racepinephrine 0.5 Ml Neb) 0.5 ml INHALATION ONCE ONE Stop: 04/18/24 15:52 Last Admin: 04/18/24 15:53 Dose: 0.5 ml Furosemide (Furosemide 10 Mg/Ml Sdv 4ml) 40 mg IVP ONCE ONE Stop: 04/18/24 16:43 Last Admin: 04/18/24 18:02 Dose: 40 mg Furosemide (Furosemide 10 Mg/Ml Sdv 4ml) 40 mg IVP ONCE ONE Stop: 04/18/24 18:30 Last Admin: 04/18/24 18:32 Dose: Not Given Furosemide (Furosemide 10 Mg/Ml Sdv 4ml) 40 mg IVP ONCE ONE Stop: 04/18/24 18:32 Last Admin: 04/18/24 18:44 Dose: 40 mg Furosemide (Furosemide 10 Mg/Ml Sdv 2ml) 20 mg IVP ONCE ONE Stop: 04/20/24 10:36 Last Admin: 04/20/24 10:59 Dose: 20 mg Hydralazine HCl (Hydralazine 20 Mg/Ml Inj 1 Ml) 10 mg IVP ONCE ONE Stop: 04/18/24 14:31 Last Admin: 04/18/24 15:05 Dose: 10 mg Hydralazine HCl (Hydralazine 20 Mg/Ml Inj 1 Ml) 20 mg IVP ONCE ONE Stop: 04/18/24 15:38 Last Admin: 04/18/24 16:04 Dose: 20 mg Magnesium Sulfate/Dextrose (Magnesium Sulfate Premix) 1 gm in 100 mls @ 200 mls/hr IV ONCE ONE Stop: 04/18/24 19:13 Last Infusion: 04/18/24 23:02 Dose: Infused Sodium Chloride (Sodium Chloride 0.9%) 1,000 mls @ 100 mls/hr IV .Q10H PADREEP Lorazepam (Lorazepam 1 Mg Tablet) 1 mg PO ONCE ONE Stop: 04/19/24 18:55 Last Admin: 04/19/24 19:05 Dose: 1 mg Lorazepam (Lorazepam 2 Mg/Ml Inj 1 Ml) 1 mg IVP ONCE ONE Stop: 04/19/24 22:08 Last Admin: 04/19/24 23:12 Dose: Not Given Lorazepam (Lorazepam 2 Mg/Ml Inj 1 Ml) 1 mg IVP ONCE ONE Stop: 04/19/24 23:16 Last Admin: 04/20/24 00:12 Dose: Not Given Lorazepam (Lorazepam 1 Mg Tablet) 1 mg PO ONCE ONE Stop: 04/20/24 04:32 Last Admin: 04/20/24 04:38 Dose: 1 mg Lorazepam (Lorazepam 2 Mg/Ml Inj 1 Ml) 0.25 mg IVP ONCE ONE Stop: 04/20/24 09:07 Last Admin: 04/20/24 09:27 Dose: 0.25 mg Methylprednisolone Sodium Succinate (Methylprednisolone Sod Succ 125 Mg/2 Ml Inj) 125 mg IVP ONCE ONE Stop: 04/18/24 14:31 Last Admin: 04/18/24 15:05 Dose: 125 mg Methylprednisolone Sodium Succinate (Methylprednisolone Sod Succ 40 Mg/Ml Inj) 40 mg IVP Q6H [facility] Last Admin: 04/19/24 09:05 Dose: 40 mg Methylprednisolone Sodium Succinate (Methylprednisolone Sod Succ 40 Mg/Ml Inj) 40 mg IVP Q12H [facility] Last Admin: 04/19/24 18:53 Dose: Not Given Methylprednisolone Sodium Succinate (Methylprednisolone Sod Succ 40 Mg/Ml Inj) 40 mg IVP Q12H [facility] Last Admin: 04/20/24 08:41 Dose: 40 mg Allergies hydromorphone [From Dilaudid] Allergy (Verified 03/10/24 17:29) ADR-Migraine Home Medications aspirin 81 mg tablet,delayed release 81 mg PO DAILY #30 tabs 01/15/24 [Rx Confirmed 04/19/24] nicotine 14 mg/24 hr daily transdermal patch 1 patch transdermal DAILY #14 ea 01/15/24 [Rx Confirmed 04/19/24] nicotine 21 mg/24 hr daily transdermal patch 1 patch transdermal DAILY #36 ea 01/15/24 [Rx Confirmed 04/19/24] nicotine 7 mg/24 hr daily transdermal patch 1 patch transdermal DAILY #14 ea 01/15/24 [Rx Confirmed 04/19/24] amlodipine 10 mg tablet 10 mg PO DAILY #90 tabs 02/15/24 [Rx Confirmed 04/19/24] atorvastatin 40 mg tablet 40 mg PO BEDTIME #90 tabs 02/15/24 [Rx Confirmed 04/19/24] metoprolol tartrate 25 mg tablet 25 mg PO BID@0900,2100 #180 tabs 02/15/24 [Rx Confirmed 04/19/24] albuterol sulfate 90 mcg/actuation aerosol inhaler 2 inh inhalation Q6H PRN shortness of breath or wheezing #1 pump 03/10/24 [Rx Confirmed 04/19/24] hydralazine 50 mg tablet See Rx Instructions .Route .COMPLEX #90 tabs 03/28/24 [Rx Confirmed 04/19/24] albuterol sulfate 2.5 mg/3 mL (0.083 %) solution for nebulization 2.5 mg (3 mL) inhalation Q4H PRN shortness of breath or wheezing #90 mL 04/12/24 [Rx Confirmed 04/19/24] Discharge Plan Discharge Patient Disposition: Xfer Other Condition: Stable Prescriptions: No Action amlodipine 10 mg tablet 10 mg PO DAILY Qty: 90 1RF atorvastatin 40 mg tablet 40 mg PO BEDTIME Qty: 90 1RF metoprolol tartrate 25 mg tablet 25 mg PO BID@0900,2100 Qty: 180 1RF hydralazine 50 mg tablet See Rx Instructions .ROUTE .COMPLEX Qty: 90 1RF Dose Instruction: TAKE ONE TABLET BY MOUTH THREE TIMES DAILY Rx Instructions: TAKE ONE TABLET BY MOUTH THREE TIMES DAILY aspirin 81 mg Tablet,Delayed Release (Dr/Ec) 81 mg PO DAILY Qty: 30 0RF nicotine 21 mg/24 hr Patch 24 Hour 1 patch transdermal DAILY Qty: 36 0RF nicotine 14 mg/24 hr patch 24 hour 1 patch transdermal DAILY Qty: 14 0RF Rx Instructions: take after finished 21 mcg nicotine 7 mg/24 hr patch 24 hour 1 patch transdermal DAILY Qty: 14 0RF Rx Instructions: take after finished 14 mcg albuterol sulfate 90 mcg/actuation HFA aerosol inhaler 2 inh inhalation Q6H PRN (Reason: shortness of breath or wheezing) Qty: 1 0RF albuterol sulfate 2.5 mg /3 mL (0.083 %) solution for nebulization 2.5 mg INHALATION Q4H PRN (Reason: shortness of breath or wheezing) Qty: 90 0RF Referrals: [facility] [Other] (Call this number to see you qualify for services at home. ) [employer] [facility] [Other] (This [employer] may be able to help you with the in home service application process. ) [facility]([employer]) [Outside] Transfer Attestations Time Spent in Transfer Care: greater than 30 min Quality Metrics Clinical Quality Measures [ No reported AMI, CVA or VTE this stay] Coding Level of Care Code 68992 Total time (in minutes) for Discharge: 70 Diagnoses Amphetamine use disorder, severe, dependence F15.20 Unspecified psychosis F29 Tardive dyskinesia G24.01
[2024-04-20] MEDS: pyridoxine 50 mg Tablet PO (17:50)
[2024-04-20] MEDS: ARIPiprazole 10 mg Tablet 5 MG PO (17:50)
--- NOTE | 2024-04-20 18:48 | PC.NURSE ---
Addendum entered by Kelin Mccormack RN 04/20/24 20:21: Dr. Wesley called @2019- New order for 1mg PO Ativan ONCE NOW for transport, cancel order for .125 IV Ativan. Original Note: dr casillas verbal order : 0.125 mg ativan iv push x 1 prior to ambulance transfer.not entered due to unknown time of transfer.
--- NOTE | 2024-04-20 19:32 | PC.NURSE ---
Addendum entered by Kelin Mccromack RN 04/20/24 19:39: Andrzej from EMS called unit @193 asking for clarification if pt is ground appropriate. Dr. Wesley called @1935 to notify of ETA of 2 hours and reports to continue with ground transfer. Andrzej from EMS called back and notified to continue w/ ground transfer @1938. Original Note: EMS: EMS notified of pt transfer @1909, EMS reports ETA of approximately 2hours.
[2024-04-20] MEDS: acetaminophen 325 mg Tablet 650 MG PO (20:08)
[2024-04-20] MEDS: atorvastatin 40 mg Tablet PO (20:08)
[2024-04-20] MEDS: cefTRIAXone 1,000 mg SDV 1000 MG IVP (20:10)
--- NOTE | 2024-04-20 20:36 | PC.NURSE ---
EMS on Unit: Pt left unit w/ EMS staff @2031.
[2024-04-21 14:18] LABS: Methicillin-Resist S.aureu PCR NOT DETECTED (NOT DETECTED)
== END 2024-04-20 20:32 | disposition short-term general hospital (02) | DRG 190 ==
LOC: ER 17:31 → MEDSURG 17:34 → ICU 18:34
PROVIDERS: Admitting Provider Student in an Organized Health Care Education/Training Program; Emergency Provider Emergency Medicine; PCP Nurse Practitioner Family; Visit Provider Internal Medicine
DX: J44.1 Chronic obstructive pulmonary disease with (acute) exacerbation (principal); J18.9 Pneumonia, unspecified organism; J96.91 Respiratory failure, unspecified with hypoxia; J45.901 Unspecified asthma with (acute) exacerbation; I13.0 Hypertensive heart and chronic kidney disease with heart failure and stage 1 through stage 4 chronic kidney disease, or unspecified chronic kidney disease; I50.32 Chronic diastolic (congestive) heart failure; F15.20 Other stimulant dependence, uncomplicated; J44.0 Chronic obstructive pulmonary disease with (acute) lower respiratory infection; F17.210 Nicotine dependence, cigarettes, uncomplicated; N18.9 Chronic kidney disease, unspecified; I25.10 Atherosclerotic heart disease of native coronary artery without angina pectoris; F12.10 Cannabis abuse, uncomplicated; F31.70 Bipolar disorder, currently in remission, most recent episode unspecified; D72.829 Elevated white blood cell count, unspecified; F20.9 Schizophrenia, unspecified; G24.01 Drug induced subacute dyskinesia; I16.0 Hypertensive urgency
CPT/HCPCS: 36415; 36600; 51702; 51798; 70490; 71045; 71250; 80048; 80053; 80306; 81003; 81015; 82570; 82607; 82746; 82805; 83540; 83550; 83735; 83880; 84100; 84145; 85025; 85378; 86403; 87040; 87070; 87077; 87186; 87205; 87449; 87486; 87581; 87633; 87641; 93005; 93308; 94640; 96372; 96374; 96375; 96376; 99285; J0360; J0696; J1644; J1940; J2060; J2270; J2919; J3475; J3490; J7614; J7626; J7644; Q0144

== ENCOUNTER 2024-05-07 00:55 | Inpatient (IN) | payer MEDICAID, SELFPAY ==
[2024-05-07] VITALS (126 sets, daily range): BP systolic 97–244; BP diastolic 56–183; PULSE 83–138; RESP 14–36; TEMP 36.5–37.5; O2SAT 81–100; BMI 29.9
--- NOTE | 2024-05-07 01:02 | ECG_ITS ---
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 Measurements Intervals Spur Rate: 118 P: 77 FL: 160 QRS: -29 QRSD: 93 T: 109 QT: 306 QTc: 429 Interpretive Statements SINUS TACHYCARDIA RIGHT ATRIAL ENLARGEMENT [0.3mV P-WAVE] POSSIBLE LEFT ATRIAL ENLARGEMENT [-0.1mV P-WAVE IN V1/V2] SEPTAL MYOCARDIAL INFARCTION , PROBABLY OLD [40+ ms Q WAVE IN V1/V2] ST DEVIATION AND MODERATE T-WAVE ABNORMALITY, CONSIDER LATERAL ISCHEMIA [-0.1+ mV T-WAVE IN I/aVL/V5/V6] Compared to ECG 04/18/2024 14:28:11 Myocardial infarct finding now present Possible ischemia now present T-wave abnormality still present Electronically Signed On 05-07-2024 9:15:01 CDT by Jarrell Steiner M.D. [id number]
--- NOTE | 2024-05-07 01:02 | XRR_ITS ---
PROCEDURE INFORMATION: Exam: XR Chest Exam date and time: 05/07/2024 1:10 AM Age: 48 years old Clinical indication: Patient HX: EMS arrival for resp distress. Intubated soon after arrival. Central line in place. History of copd. ; Additional info: SOB TECHNIQUE: Imaging protocol: Radiologic exam of the chest. Views: 1 view. COMPARISON: CR XR chest 1V portable [id number] 04/20/2024 9:21 AM FINDINGS: Tubes, catheters and devices: Central venous catheter terminates in the distal superior vena cava. The endotracheal tube position is unremarkable 6 cm cephalad to the [place]. Lungs: Unremarkable. No consolidation. Pleural spaces: Unremarkable. No pleural effusion. No pneumothorax. Heart/Mediastinum: Unremarkable. No cardiomegaly. Bones/joints: Unremarkable. XR/XR chest 1V portable [id number] IMPRESSION: 1. Unremarkable endotracheal tube position. 2. Unremarkable central venous catheter position. 3. No focal acute pulmonary consolidation identified.
[2024-05-07 01:10] LABS: Base Excess ABG 0.6 mmol/L (-2.0-2.0); Blood Gas Allen Test Pos; Blood Gas Operator Identificat CL; Blood Gas Sample Site Radial, right; Blood Gas Sample Type Arterial; HGB O2 Sat 87.7 % (95-100); Methemoglobin 1.1 % (0.4-1.5); Oxygen Device BIPAP; PO2 ABG 87.6 mmHg (80.0-100.0); PO2 FiO2 Ratio Arterial Blood 219; Total Hemoglobin 15.7 g/dL (12-16)
[2024-05-07 01:11] LABS: ABG PCO2 > 102.0 mmHg (35-45); ABG PH Result 7.12 (7.35-7.45)
[2024-05-07] MEDS: succinylcholine 20 mg/mL SDV 10mL 100 MG IVP (01:20)
[2024-05-07] MEDS: etomidate 2 mg/mL INJ SDV 10 mL 20 MG IVP (01:20)
[2024-05-07 01:29] LABS: Basophils # 0.1 10^3/uL (0.0-0.1); Basophils % 0.6 %; Eosinophils # 0.1 10^3/uL (0.0-0.8); Eosinophils % 0.9 %; Hematocrit 48.9 % (36-47); Lymphocytes # 2.6 10^3/uL (0.8-4.8); Mean Corpuscular HGB Conc 32.1 g/dL (30-55); Mean Corpuscular Hemoglobin 31.3 pg (27-33); Mean Corpuscular Volume 97.4 fl (85-98); Mean Platelet Volume 10.1 fL (7.4-10.4); Monocytes # 0.6 10^3/uL (0.2-0.9); Monocytes % 5.4 %; Neutrophils # 6.73 10^3/uL (1.8-7.7); Neutrophils % 65.8 %; Nucleated Red Blood Cells % 0 %; Platelet Count 208 10^3/cmm (157-399); Red Blood Count 5.02 10^6/uL (3.85-5.65); White Blood Count 10.23 10^3/uL (3.29-11.43)
[2024-05-07] MEDS: propofol 1,000 MG/100 ML INJ 2.45 MG IV (01:30)
[2024-05-07] MEDS: ketamine 100 mg/mL Inj 5 mL 300 MG IM (01:38)
[2024-05-07 01:46] LABS: Troponin(5th) Baseline 33 ng/L (0-10)
[2024-05-07 01:49] LABS: Lactic Sepsis W/Reflex 0.6 mmol/L (0.5-2.2)
[2024-05-07 01:53] LABS: Alanine Aminotransferase 32 U/L (0-33); Albumin Level 4.1 g/dL (3.5-5.2); Alkaline Phosphatase 94 U/L (35-105); Blood Urea Nitrogen 19 mg/dL (6-20); Calcium 8.8 mg/dL (8.5-10.5); Carbon Dioxide 27 mmol/L (22-29); Chloride 100 mmol/L (98-107); Globulin 2.7 g/dL (1.3-4.6); Glomerular Filtration Rate 43.4 mL/min (90-130); Glucose 150 mg/dL (65-115); NT Pro B Type Natriuretic Pept 3893 pg/mL (0-125); Osmolality Calculated 291 mOsm/kg (285-295); Sodium 138 mmol/L (136-145); Total Bilirubin 0.3 mg/dL (0.15-1.2); Total Protein 6.8 g/dL (6.6-8.7)
[2024-05-07 02:00] LABS: Creatinine Clr Calc Pharmacy 54.6442
[2024-05-07 02:01] LABS: Anion Gap 14.9 (5-19); Aspartate Amino Transferase 37 U/L (0-32); Potassium 3.9 mmol/L (3.5-5.1)
[2024-05-07] MEDS: fentaNYL 1,000 MCG/100 ML BAG 5 MCG IV (02:12)
[2024-05-07] MEDS: nitroglycerin drip 50 MG/250 ML PREMIX IV (03:01)
--- NOTE | 2024-05-07 03:01 | CTR_ITS ---
PROCEDURE INFORMATION: Exam: CTA Chest With Contrast Exam date and time: 05/07/2024 3:29 AM Age: 48 years old Clinical indication: Abnormal findings; Abnormal diagnostic tests; Elevated d-dimer; Shortness of breath; Patient HX: EMS arrival for resp failure. Patient intubated shortly after arrival. D dimer of 2.20 and hypercapnic with pc02 of 102.0. History of copd. Central line and og in place. TECHNIQUE: Imaging protocol: Computed tomographic angiography of the chest with contrast. Exam focused on the arteries. 3D rendering (Not supervised by radiologist): MIP and/or 3D reconstructed images were created by the technologist. Radiation optimization: All CT scans at this facility use at least one of these dose optimization techniques: automated exposure control; mA and/or kV adjustment per patient size (includes targeted exams where dose is matched to clinical indication); or iterative reconstruction. Contrast material: OMNI 350; Contrast volume: 49 ml; Contrast route: INTRAVENOUS (IV); COMPARISON: CT chest [facility] [id number] 04/18/2024 7:25 PM RADIATION DOSE METRICS: Total DLP (mGy-cm): 561.73 FINDINGS: Tubes, catheters and devices: Unremarkable endotracheal tube position. Enteric catheter in the stomach. Central venous catheter extends into the right atrium. Pulmonary arteries: Dilated pulmonary arteries without thrombus. Aorta: Unremarkable. No aortic aneurysm. No aortic dissection. Lungs: Scattered peribronchial opacities in the inferior lingula, inferior right middle lobe and dependent lower lobes with volume loss. Negative for central endobronchial obstruction. Negative for peripheral honeycombing. Pleural spaces: Unremarkable. No pneumothorax. No pleural effusion. Heart: Unremarkable. No cardiomegaly. No pericardial effusion. Heart RV/LV ratio: RV to LV ratio less than 0.9. Lymph nodes: Unremarkable. No enlarged lymph nodes. Bones/joints: Old healed right lateral rib fracture deformities. Old healed right posterior rib fracture deformities. Negative for acute thoracic fracture. Soft tissues: Unremarkable. CT/CT angio chest PE protcl [id number] IMPRESSION: 1. Negative for pulmonary artery embolism. 2. Scattered bilateral peribronchial airspace opacities with volume loss. Predominantly atelectasis features.
--- NOTE | 2024-05-07 03:02 | ECG_ITS ---
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 Measurements Intervals [place] Rate: 98 P: 50 IN: 132 QRS: -22 QRSD: 86 T: 85 QT: 370 QTc: 474 Interpretive Statements SINUS RHYTHM POSSIBLE LEFT ATRIAL ENLARGEMENT [-0.1mV P-WAVE IN V1/V2] BORDERLINE LEFT AXIS DEVIATION [QRS AXIS < -20] NONSPECIFIC ST & T-WAVE ABNORMALITY Compared to ECG 05/07/2024 01:08:50 Sinus tachycardia no longer present Myocardial infarct finding no longer present Possible ischemia no longer present T-wave abnormality still present Electronically Signed On 05-07-2024 9:19:18 CDT by Jarrell Steiner M.D. [email or web address]
--- NOTE | 2024-05-07 03:09 | PM.HP ---
Providers/Chief Complaint Admitting Physician: Carmelo Thomas MD Primary Care Provider: GUY Garcia Chief Complaint: SOB History of Present Illness Yamileth Feliciano is a 48 year old female with a past medical history of COPD, history of CAD, hyperlipidemia, hypertension, diastolic CHF, CKD, amphetamine abuse who presents [facility] due to shortness of breath. Currently patient is intubated, sedated on mechanical ventilation, most of the history was provided by ER provider. According to ER provider, patient presented with acute respiratory distress, acute hypoxic respiratory failure, was placed on BiPAP, ABG showing metabolic acidosis with hypercarbic respiratory failure, patient was intubated, by ER provider, placed on mechanical ventilation, sedated, right central line in place Of note patient was transferred in March to tertiary level center for ENT evaluation, for soft tissue taking in the paraglottic space, will have to request medical records Review of Systems General: Reports: ROS unobtainable due to endotracheal tube Medications/Allergies Home Medications Medication Instructions Recorded Confirmed Last Taken Type aspirin 81 mg tablet,delayed 81 mg PO DAILY #30 tabs 01/15/24 04/19/24 Unknown Rx release nicotine 14 mg/24 hr daily 1 patch transdermal DAILY #14 ea 01/15/24 04/19/24 Unknown Rx transdermal patch nicotine 21 mg/24 hr daily 1 patch transdermal DAILY #36 ea 01/15/24 04/19/24 Unknown Rx transdermal patch nicotine 7 mg/24 hr daily 1 patch transdermal DAILY #14 ea 01/15/24 04/19/24 Unknown Rx transdermal patch amlodipine 10 mg tablet 10 mg PO DAILY #90 tabs 02/15/24 04/19/24 Unknown Rx atorvastatin 40 mg tablet 40 mg PO BEDTIME #90 tabs 02/15/24 04/19/24 Unknown Rx metoprolol tartrate 25 mg tablet 25 mg PO BID@0900,2100 #180 tabs 02/15/24 04/19/24 Unknown Rx albuterol sulfate 90 mcg/actuation 2 inh inhalation Q6H PRN shortness 03/10/24 04/19/24 Unknown Rx aerosol inhaler of breath or wheezing #1 pump hydralazine 50 mg tablet See Rx Instructions .Route 03/28/24 04/19/24 Unknown Rx .COMPLEX #90 tabs albuterol sulfate 2.5 mg/3 mL 2.5 mg (3 mL) inhalation Q4H PRN 04/12/24 04/19/24 Unknown Rx (0.083 %) solution for nebulization shortness of breath or wheezing #90 mL Allergies Allergy/AdvReac Type Severity Reaction Status Date / Time hydromorphone [From Dilaudid] Allergy ADR-Migrain Verified 03/10/24 17:29 e PFSH Acute PFSH: Medical History COPD (chronic obstructive pulmonary disease) CKD (chronic kidney disease) Diastolic heart failure Hypertension Coronary artery disease Coronary angiogram from 01/13 showed moderate disease in LCx and LAD?negative on IFR Abnormal stress test Cannabis use disorder, mild, abuse Amphetamine use disorder, severe, dependence Bipolar disorder in full remission Bipolar disorder Social History Smoking and tobacco/nicotine status: current every day tobacco/nicotine user cigarettes Packs smoked per day: 1.5 Years cigarettes smoked: 30 Quit status (tobacco/nicotine): not considering quitting Second hand smoke exposure: Yes Current gender identity: Female Vitals/I&O/Wt Last Vital Signs Temp 97.7 F 05/07/24 01:01 Pulse 106 H 05/07/24 02:30 Resp 14 05/07/24 02:30 BP 133/91 05/07/24 02:30 Pulse Ox 99 05/07/24 02:30 O2 Del Method Mechanical Ventilation 05/07/24 02:30 05/06/24 05/06/24 05/07/24 14:59 22:59 06:59 Intake Total 14.334 / 14.334 Balance 14.334 / 14.334 Weight last 48 hrs Weight 81.647 kg Physical Exam Const: COMMON NORMALS: no acute distress OTHER: Currently intubated, sedated on mechanical ventilation, endotracheal tube in place, right internal jugular venous catheter in place HENMT: COMMON NORMALS: normocephalic HEAD & SCALP: normocephalic Eye: OTHER: Pupils equal round reactive to light Neck/C-Spine: COMMON NORMALS: no JVD Resp: COMMON NORMALS: normal respiratory effort, No retractions and No use of accessory muscles AUSCULTATION: wheezes Cardio: COMMON NORMALS: no JVD, regular rate, regular rhythm, S1 normal heart sound present and S2 normal heart sound present RATE: regular rate RHYTHM: regular rhythm HEART SOUNDS: S1 normal heart sound present and S2 normal heart sound present GI: COMMON NORMALS: Normal to inspection, nondistended, normoactive bowel sounds present, Soft to palpation and non-tender Extremity: COMMON NORMALS: no calf tenderness and no pedal edema Sepsis: Is patient septic: No Focused sepsis exam performed: Yes Focused sepsis exam: DP PT pulses palpable, cap refill less than 2 seconds, no mottling Data 05/07/24 01:20 05/07/24 01:20 Micro: Microbiology 05/07/24 02:25 Blood Culture - Preliminary Blood SPECIMEN COLLECTED 05/07/24 02:20 Blood Culture - Preliminary Blood SPECIMEN COLLECTED A&P Assessment and plan (1) Acute respiratory failure with hypoxia and hypercapnia: (2) COPD exacerbation: (3) NSTEMI (non-ST elevated myocardial infarction): Plan Acute hypoxic hypercarbic respiratory failure -Multifactorial -From COPD exacerbation -Diastolic CHF Plan -Obtain CT angiogram the chest -Respiratory viral panel -CRP, Pro-Nimesh -DuoNeb -Budesonide -Solu-Medrol 125 followed by 40 mg IV every 8 hours -Monitor respiratory status closely -Currently intubated, sedated on mechanical ventilation -Minimize tidal volume, minimize FiO2 -Spontaneous breathing trial daily -Continue Rocephin -Continue Zithromycin -Cardiac echo -Full code -Lovenox for DVT prophylaxis NSTEMI ? Type I versus type II -Cardiac echo -Serial EKGs, serial troponins, telemetry monitoring History of amphetamine abuse, urine drug screen Of note patient was transferred in March to tertiary level center for ENT evaluation, for soft tissue taking in the paraglottic space, will have to request medical records RADHA on CKD Attestations Medical Necessity Statement*: Patient requires hospitalization, inpatient, greater than 2 midnights, for acute hypoxic hypercarbic respiratory failure secondary to COPD, NSTEMI, RADHA Coding Level of Care Code Critical Care >/= 30 minutes Critical care time (in minutes): 45 The high probability of a clinically significant, sudden or life threatening deterioration, as referenced in this documentation, required my full and direct attention, intervention and personal management. The critical care time shown is in addition to time spent performing any reported separately billable procedures and includes the following: [x] Data and vital sign review and interpretation [x] Patient assessment, examination and intervention [x] Medication orders and management [x] Patient/Family updates as able [x] Care Coordination and Documentation. Diagnoses Acute respiratory failure with hypoxia and hypercapnia J96.01; J96.02 COPD exacerbation J44.1 NSTEMI (non-ST elevated myocardial infarction) I21.4
[2024-05-07 03:25] LABS: INR 0.88 (0.8-1.2)
[2024-05-07 03:31] LABS: Troponin 5 2HR 48.21 ng/L (0-10)
[2024-05-07] MEDS: iohexol 350 mg/mL 500 mL Btl (per mL) IV (03:38)
[2024-05-07 03:45] LABS: Alcohol Level < 10 mg/dL (0-10); Magnesium 1.8 mg/dL (1.7-2.3); Phosphorus 3.6 mg/dL (2.5-4.5)
[2024-05-07 03:51] LABS: Procalcitonin 0.09 ng/mL (0-0.5)
--- NOTE | 2024-05-07 03:57 | USCV_ITS ---
Yamileth Feliciano Age: 48 Gender: F : 1975 Exam Date: 05/07/2024 14:27 Ordering Phys: Carmelo Thomas MD Technologist: Rubens Sorto Exam Location: [facility] [place] Indication: nstemi BP: 118 / 71 HR: 105 Rhythm: Sinus Technical Quality: Adequate MEASUREMENTS (Male / Female) Normal Values 2D ECHO LV Diastolic Diameter PLAX 3.1 cm 4.2 - 5.9 / 3.9 - 5.3 cm IVS Diastolic Thickness 1.4 cm 0.6 - 1.0 / 0.6 - 0.9 cm IVS Systolic Thickness 1.5 cm LVPW Diastolic Thickness 2.5 cm 0.6 - 1.0 / 0.6 - 0.9 cm LVPW Systolic Thickness 2.0 cm LVOT Diameter 2.1 cm LV Ejection Fraction 2D Teich 54.3 % LV Ejection Fraction MOD 4C 60.3 % LV Ejection Fraction MOD 2C 69.6 % LV Ejection Fraction 2C AL 71.3 % RA Systolic Volume 4C AL 48.0 ml RA Systolic Volume 4C MOD 49.0 ml LA Sys Volume AL 39.1 cm cubed LA Sys Volume Index AL 20.0 cm cubed/m squared Aorta at Sinotubular Diameter 2.5 cm IVC Diameter 1.9 cm M-MODE LA Ao Ratio MM 1.1 AV Cusp Separation MM 1.7 cm DOPPLER AV Peak Velocity 251.0 cm/s LVOT Peak Velocity 245.0 cm/s AV Area Cont Eq vti 3.1 cm squared AV Area Cont Eq pk 3.4 cm squared MV Peak Velocity 171.0 cm/s MV Area PHT 7.4 cm squared TV Peak Velocity 192.0 cm/s TR Peak Velocity 229.0 cm/s TR Peak Gradient 21.0 mmHg TR Mean Velocity 173.0 cm/s TR Mean Gradient 13.7 mmHg TR Velocity Time Integral 36.2 cm PV Peak Velocity 116.0 cm/s RV Ejection Time 0.3 s FINDINGS Left Ventricle Left ventricle is normal in size. LV systolic function is normal with EF 60-65%. No regional wall motion abnormalities are seen. Grade 1 diastolic dysfunction. Moderate left ventricular hypertrophy Right Ventricle Normal in size and function Right Atrium Normal in size Left Atrium Normal in size Mitral Valve Mild mitral annular calcification. Mild mitral regurgitation. Aortic Valve Grossly thickened. Mildly elevated mean gradient across aortic valve of 17 mmHg. This is consistent with mild aortic stenosis Tricuspid Valve Mild tricuspid regurgitation. Pulmonary artery systolic pressure is normal Pulmonic Valve Not well visualized Pericardium Normal Aorta Normal in size IVC Appears to be normal CONCLUSIONS LV systolic function is normal with EF of 60-65% Grade 1 diastolic dysfunction Mild mitral regurgitation Mildly elevated mean gradient across aortic valve of 17 mmHg. Consistent with mild aortic stenosis. Mild tricuspid regurgitation. Compared to prior echocardiogram from 12/2023, mean gradient across aortic valve is mildly elevated. Jarrell Steiner MD (Electronically Signed) Final Date: 07 May 2024 18:57 S
[2024-05-07 04:15] LABS: Troponin 5 2HR Delta 15.21 ABS# (0-10)
[2024-05-07 04:22] LABS: Adenovirus Not Detected (NOT DETECT); Chlamydia Pneumoniae Not Detected (NOT DETECT); Coronavirus 229E,HKU1,NL63,OC4 Not Detected (NOT DETECT); Human Metapneumovirus Not Detected (NOT DETECT); Human Rhinovirus/Enterovirus Not Detected (NOT DETECT); Influenza A Not Detected (NOT DETECT); Influenza A H1 Not Detected (NOT DETECT); Influenza A H1-2009 Not Detected (NOT DETECT); Influenza A H3 Not Detected (NOT DETECT); Influenza B Not Detected (NOT DETECT); Mycoplasma Pneumoniae Not Detected (NOT DETECT); Parainfluenza Virus Type 1 Not Detected (NOT DETECT); Parainfluenza Virus Type 2 Not Detected (NOT DETECT); Parainfluenza Virus Type 3 Not Detected (NOT DETECT); Parainfluenza Virus Type 4 Not Detected (NOT DETECT); Respiratory Syncytial Virus A Not Detected (NOT DETECT); Respiratory Syncytial Virus B Not Detected (NOT DETECT); SARS-COV-2 Not Detected (NOT DETECT)
[2024-05-07 04:30] LABS: Thyroid Stimulating Hormone 0.16 uIU/mL (0.27-4.20)
[2024-05-07] MEDS: azithromycin 500 MG in sodium chloride 0.9% 250 ML 250 MG IV (04:32)
[2024-05-07 04:56] LABS: Estmated Average Glucose 126
[2024-05-07 04:57] LABS: ABG PCO2 57.5 mmHg (35-45); ABG PH Result 7.36 (7.35-7.45); Base Excess ABG 4.9 mmol/L (-2.0-2.0); Blood Gas Allen Test Pos; Blood Gas Operator Identificat JB; Blood Gas Sample Site Radial, right; Blood Gas Sample Type Arterial; Blood Gas Tidal Volume 0.45; Carboxyhemoglobin 1.8 %THgb (0.4-20.1); HCO3 ABG 32.2 mmol/L (22-26); HGB O2 Sat 97.2 % (95-100); Ionized Calcium Level - ABG 1.2 mmol/L (1.1-1.4); Methemoglobin 1.1 % (0.4-1.5); Oxygen Device VENT; Oxygen Saturation ABG > 99.1; PO2 FiO2 Ratio Arterial Blood 276; Potassium Level - ABG 3.2 mmol/L (3.5-5.0); Total Hemoglobin 14.3 g/dL (12-16)
[2024-05-07] MEDS: pantoprazole 40 mg SDV IVP ×2 (05:02→16:09)
[2024-05-07] MEDS: methylPREDNISolone sod succ 125 MG in water for injection-sterile 2 ML 24 MG IVP (05:03)
[2024-05-07] MEDS: enoxaparin 40 mg/0.4 mL Syringe SUBCUT ×2 (05:09→06:29)
[2024-05-07] MEDS: cefTRIAXone 1,000 mg SDV 1000 MG IVP (05:11)
[2024-05-07] MEDS: ipratropium-albuterol 3 mL Neb INHALATION ×6 (05:22→23:51)
[2024-05-07] MEDS: propofol 1,000 MG/100 ML INJ 19.6 MG IV (05:37)
--- NOTE | 2024-05-07 05:37 | ED_ITS ---
HPI - Pediatric SOB/Dyspnea 2 General: Chief Complaint: Shortness of Breath/Dyspnea Stated Complaint: SOB Time Seen by Provider: 05/07/24 01:01 History of Present Illness: 48-year-old female brought from home thi s morning by EMS. The complaint was shortness of breath. Oxygen saturations on EMS arrival in the low 80s on room air. She was placed on OxyMask, given terbutaline, albuterol and DuoNeb treatments. There has been some improvements. She is able to hold her head up, hold her hand out, and hold up 2 fingers when asked, meaning she is answering questions. Related Data Previous Rx's Medication Instructions Recorded aspirin 81 mg tablet,delayed 81 mg PO DAILY #30 tabs 01/15/24 release nicotine 14 mg/24 hr daily 1 patch transdermal DAILY #14 ea 01/15/24 transdermal patch nicotine 21 mg/24 hr daily 1 patch transdermal DAILY #36 ea 01/15/24 transdermal patch nicotine 7 mg/24 hr daily 1 patch transdermal DAILY #14 ea 01/15/24 transdermal patch amlodipine 10 mg tablet 10 mg PO DAILY #90 tabs 02/15/24 atorvastatin 40 mg tablet 40 mg PO BEDTIME #90 tabs 02/15/24 metoprolol tartrate 25 mg tablet 25 mg PO BID@0900,2100 #180 tabs 02/15/24 albuterol sulfate 90 mcg/actuation 2 inh inhalation Q6H PRN shortness 03/10/24 aerosol inhaler of breath or wheezing #1 pump hydralazine 50 mg tablet See Rx Instructions .Route 03/28/24 .COMPLEX #90 tabs albuterol sulfate 2.5 mg/3 mL 2.5 mg (3 mL) inhalation Q4H PRN 04/12/24 (0.083 %) solution for nebulization shortness of breath or wheezing #90 mL Allergies Allergy/AdvReac Type Severity Reaction Status Date / Time hydromorphone [From Dilaudid] Allergy ADR-Migrain Verified 03/10/24 17:29 e [facility] PFSH: Medical History COPD (chronic obstructive pulmonary disease) CKD (chronic kidney disease) Diastolic heart failure Hypertension Coronary artery disease Coronary angiogram from 01/13 showed moderate disease in LCx and LAD?negative on IFR Abnormal stress test Cannabis use disorder, mild, abuse Amphetamine use disorder, severe, dependence Bipolar disorder in full remission Bipolar disorder Social History Smoking and tobacco/nicotine status: current every day tobacco/nicotine user cigarettes Packs smoked per day: 1.5 Years cigarettes smoked: 30 Quit status (tobacco/nicotine): not considering quitting Second hand smoke exposure: Yes Current gender identity: Female Pediatric Exam 2 Const: Constitutional General: cooperative, ill appearing, lethargic and tired appearing HENMT: Head: normocephalic and atraumatic Nose: Normal external nose present Face and Sinuses: normal facial exam Eyes: Pupils: Equal, round and reactive pupils present EOM: EOMs intact bilaterally Neck: Neck: trachea midline Resp: Effort & Inspection: respiratory distress and tachypneic A uscultation: diminished lung sounds bilateral (significant), rhonchi and wheezes Cardio: Rate: tachycardic Rhythm: regular rhythm GI: Inspection: No abdominal distension Palpation: Soft to palpation Skin: General: no rashes or lesions noted Neuro: Cranial Nerves: Equal, round and reactive pupils present Motor Exam: Abnormal muscle tone present (decreased) Procedures Central Line Placement Right IJ: Time Out Performed: Yes Patient Placed on Monitor/Pulse Ox: Yes MD Prep: mask, gown and gloves Central Line Prep: Chlorhexidine scrub Local Anesthetic: lidocaine 1% Amount of anesthesia used (mL): 3 Ultrasound Used for Placement: Yes Central Line Lumen Inserted: triple Post Procedure: sutured in place, good blood return, all ports aspirated, flushed, capped and sterile dressing applied Post Procedure X-Ray: tip of catheter in good position and no pneumothorax seen Patient Tolerated Procedure: well and no complications Complications: none Intubation Time out performed: No sedative: Etomidate Mg Given: 20 paralytic: Succinylcholine Mg Given: 100 Laryngoscope: fiber optic video scope ET Tube Size: 8 ET Tube Uncuffed: No Tube Secured Depth (cm): 24 Tube Secured Location: lips Tube Placement Confirmation: visualized tube passing through cords, equal breath sounds bilaterally, no breath sounds over epigastrium and confirmation by capnometry Patient Tolerated Procedure: well and no complications Intubation Complications: none Course 2 Vital Signs: Vital signs: Vital Signs Temperature 98.7 F 05/07/24 07:59 Pulse Rate 104 H 05/07/24 10:58 Respiratory Rate 14 05/07/24 14:13 Blood Pressure 118/71 05/07/24 07:59 Pulse Oximetry 93 05/07/24 14:13 Oxygen Delivery Me thod Mechanical Ventil ation 05/07/24 10:58 Fraction of Inspir ed Oxygen 45 05/07/24 14:13 Medical Decision Making Medical Decision Making 48-year-old female with respiratory failure. She initially was placed on BiPAP, since she could answer questions. Her mentation did not seem to improve, but slightly worsened. Blood gas done on arrival revealed significant respiratory acidosis with pCO2 greater than 100. She was intubated via rapid sequence for this. Chest x-ray shows no focal pulmonary infiltrate. A central line was placed. Endotracheal tube and triple-lumen catheter are in appropriate positions by chest x-ray. Creatinine is 1.3. White blood cell count is 10. Hemoglobin is normal. No respiratory virus detected by PCR panel. She did receive solu-medrol. BNP is significantly elevated. She is sedated with propofol and fentanyl. She seems to be tolerating this. She will go to the ICU. Lab Data 05/07/24 01:20 05/07/24 01:20 Radiology Impressions Chest X-Ray 05/07/24 01:02 IMPRESSION: 1. Unremarkable endotracheal tube position. 2. Unremarkable central venous catheter position. 3. No focal acute pulmonary consolidation identified. Chest CTA 05/07/24 03:01 IMPRESSION: 1. Negative for pulmonary artery embolism. 2. Scattered bilateral peribronchial airspace opacities with volume loss. Predominantly atelectasis features. Laboratory Results WBC 10.23 10^3/uL (3.29-11.43) 05/07/24 01:20 RBC 5.02 10^6/uL (3.85-5.65) 05/07/24 01:20 Hgb 15.70 g/dL (11.27-16.99) 05/07/24 01:20 Hct 48.9 % (36-47) H 05/07/24 01:20 MCV 97.4 fl (85-98) 05/07/24 01:20 MCH 31.3 pg (27-33) 05/07/24 01:20 MCHC 32.1 g/dL (30-55) 05/07/24 01:20 RDW 13.0 % (12.1-15.1) 05/07/24 01:20 Plt Count 208 10^3/cmm (157-399) 05/07/24 01:20 MPV 10.1 fL (7.4-10.4) 05/07/24 01:20 Neut % (Auto) 65.8 % 05/07/24 01:20 Lymph % (Auto) 25.0 % 05/07/24 01:20 Crawford % (Auto) 5.4 % 05/07/24 01:20 Eos % (Auto) 0.9 % 05/07/24 01:20 Baso % (Auto) 0.6 % 05/07/24 01:20 Neut # (Auto) 6.73 10^3/uL (1.8-7.7) 05/07/24 01:20 Lymph # (Auto) 2.6 10^3/uL (0.8-4.8) 05/07/24 01:20 Crawford # (Auto) 0.6 10^3/uL (0.2-0.9) 05/07/24 01:20 Eos # (Auto) 0.1 10^3/uL (0.0-0.8) 05/07/24 01:20 Baso # (Auto) 0.1 10^3/uL (0.0-0.1) 05/07/24 01:20 Nucleated RBC % (auto) 0 % 05/07/24 01:20 Nucleated RBCs # 0.0 /100WBC 05/07/24 01:20 Specimen Type Arterial 05/07/24 01:00 Sample Site Radial, right 05/07/24 01:00 ABG pH 7.12 (7.35-7.45) L* 05/07/24 01:00 ABG pCO2 > 102.0 mmHg (35-45) H* 05/07/24 01:00 ABG pO2 87.6 mmHg (80.0-100.0) 05/07/24 01:00 ABG PO2/FiO2 Ratio 219 05/07/24 01:00 ABG HCO3 34.0 mmol/L (22-26) H 05/07/24 01:00 ABG Base Excess 0.6 mmol/L (-2.0-2.0) 05/07/24 01:00 Huber Test Pos 05/07/24 01:00 Hematocrit 48.0 % (37-47) H 05/07/24 01:00 Hgb O2 Saturation 87.7 % (95-100) L 05/07/24 01:00 Carboxyhemoglobin 6.0 %THgb (0.4-20.1) 05/07/24 01:00 Methemoglobin 1.1 % (0.4-1.5) 05/07/24 01:00 Total Hemoglobin 15.7 g/dL (12-16) 05/07/24 01:00 O2 Delivery Device Bipap 05/07/24 01:00 FiO2 40.0 % 05/07/24 01:00 Children'S Literature Professor ID Cl 05/07/24 01:00 Sodium 138 mmol/L (136-145) 05/07/24 01:20 Potassium 3.9 mmol/L (3.5-5.1) 05/07/24 01:20 Chloride 100 mmol/L (98-107) 05/07/24 01:20 Carbon Dioxide 27 mmol/L (22-29) 05/07/24 01:20 Anion Gap 14.9 (5-19) 05/07/24 01:20 BUN 19 mg/dL (6-20) 05/07/24 01:20 Creatinine 1.3 mg/dL (0.5-0.9) H 05/07/24 01:20 GFR Calculation 43.4 mL/min (90-130) L 05/07/24 01:20 Glucose 150 mg/dL (65-115) H 05/07/24 01:20 Calculated Osmolality 291 mOsm/kg (285-295) 05/07/24 01:20 Lactic Acid 0.6 mmol/L (0.5-2.2) 05/07/24 01:20 Calcium 8.8 mg/dL (8.5-10.5) 05/07/24 01:20 Total Bilirubin 0.3 mg/dL (0.15-1.2) 05/07/24 01:20 AST 37 U/L (0-32) H 05/07/24 01:20 ALT 32 U/L (0-33) 05/07/24 01:20 Alkaline Phosphatase 94 U/L (35-105) 05/07/24 01:20 Troponin T Baseline 33 ng/L (0-10) H 05/07/24 01:20 NT-Pro-B Natriuret Pep 3893 pg/mL (0-125) H 05/07/24 01:20 Total Protein 6.8 g/dL (6.6-8.7) 05/07/24 01:20 Albumin 4.1 g/dL (3.5-5.2) 05/07/24 01:20 Globulin 2.7 g/dL (1.3-4.6) 05/07/24 01:20 Adenovirus (PCR) Not detected (NOT DETECT) 05/07/24 02:25 C. pneumoniae DNA (PCR) Not detected (NOT DETECT) 05/07/24 02:25 Coronavirus 229E (PCR) Not detected (NOT DETECT) 05/07/24 02:25 Human Metapneumovir PCR Not detected (NOT DETECT) 05/07/24 02:25 Influenza A (H1) PCR Not detected (NOT DETECT) 05/07/24 02:25 Influ A (H1/09) PCR Not detected (NOT DETECT) 05/07/24 02:25 Influenza A (H3) PCR Not detected (NOT DETECT) 05/07/24 02:25 Influenza Type A (PCR) Not detected (NOT DETECT) 05/07/24 02:25 Influenza Type B (PCR) Not detected (NOT DETECT) 05/07/24 02:25 M. pneumoniae (PCR) Not detected (NOT DETECT) 05/07/24 02:25 Parainfluenza 1 (PCR) Not detected (NOT DETECT) 05/07/24 02:25 Parainfluenza 2 (PCR) Not detected (NOT DETECT) 05/07/24 02:25 Parainfluenza 3 (PCR) Not detected (NOT DETECT) 05/07/24 02:25 Parainfluenza 4 (PCR) Not detected (NOT DETECT) 05/07/24 02:25 RSV Type A (PCR) Not detected (NOT DETECT) 05/07/24 02:25 RSV Type B (PCR) Not detected (NOT DETECT) 05/07/24 02:25 Entero/Rhino (PCR) Not detected (NOT DETECT) 05/07/24 02:25 SARS-CoV-2 (PCR) Not detected (NOT DETECT) 05/07/24 02:25 All radiology interpretation(s) finalized by discharge Critical Care Time 2 Critical Care Time: Critical Care Time: Yes Total Critical Care Time: 40 Attestation: This case had a high probability of a clinically significant, sudden, or life threatening deterioration of this patient's condition which required my full and direct attention, intervention and personal management. Time is independent of any procedures performed. Discharge Plan Discharge Patient Disposition: Admitted As Inpatient Admit Provider: Carmelo Thomas Clinical Impression: Acute respiratory failure with hypoxia and hypercapnia, COPD exacerbation Condition: Critical Coding Level of Care Code ED Rn Chronic for Shara Zaldivar
[2024-05-07 06:07] LABS: Amphetamines Screen Urine Negative (Negative); Barbiturates Screen Urine Negative (Negative); Benzodiazepines Screen Urine Negative (Negative); Cocaine Screen Urine Negative (Negative); Opiate Screen Urine Negative (Negative); PCP Screen Urine Negative (Negative); THC Screen Urine Positive (Negative)
[2024-05-07] MEDS: hyDRALAzine 20 mg/mL INJ 1 mL 10 MG IVP (06:17)
[2024-05-07 07:16] LABS: Troponin 5 6HR 43.03 ng/L (0-10); Troponin 5 6HR Delta 10.03 ng/L (0-12)
[2024-05-07] MEDS: budesonide 0.5 mg/2 mL Neb INHALATION ×2 (07:44→20:31)
--- NOTE | 2024-05-07 07:48 | ECG_ITS ---
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 Measurements Intervals Closplint Rate: 98 P: 62 NC: 144 QRS: -16 QRSD: 89 T: 78 QT: 376 QTc: 480 Interpretive Statements SINUS RHYTHM LEFT VENTRICULAR HYPERTROPHY AND ST-T CHANGE [VOLTAGE CRITERIA PLUS ST/T ABNORMALITY] Compared to ECG 05/07/2024 03:57:56 Left ventricular hypertrophy now present ST (T wave) deviation now present T-wave abnormality no longer present Electronically Signed On 05-07-2024 9:18:09 CDT by Jarrell Steiner M.D. [id number]
[2024-05-07] MEDS: aspirin 81 mg EC Tablet PO (08:13)
[2024-05-07] MEDS: fentaNYL 1,000 MCG/100 ML BAG 7.5 MCG IV ×2 (10:29→21:17)
[2024-05-07] MEDS: propofol 1,000 MG/100 ML INJ 12.25 MG IV (12:26)
--- NOTE | 2024-05-07 15:00 | P.PN_ITS ---
Subjective 2 Subjective: Opens eyes to loud voice and sternal rub. Follows directions, squeezes hands bilaterally. Denies pain or discomfort. Vitals/I&O/Wt Last Vital Signs Temp 98.7 F 05/07/24 07:59 Pulse 104 H 05/07/24 10:58 Resp 14 05/07/24 14:13 BP 118/71 05/07/24 07:59 Pulse Ox 93 05/07/24 14:13 O2 Del Method Mechanical Ventilation 05/07/24 10:58 FiO2 45 05/07/24 14:13 05/07/24 05/07/24 05/07/24 06:59 14:59 22:59 Intake Total 64.314 / 64.314 432.013 / 432.013 Output Total 100 / 100 225 / 225 Balance -35.686 / -35.686 207.013 / 207.013 Weight last 48 hrs Weight 81.2 kg Weight 81.9 kg Weight 81.647 kg Physical Exam 2 Const: GENERAL APPEARANCE: cooperative and patient mechanically ventilated HENMT: COMMON NORMALS: oropharynx normal Neck/C-Spine: COMMON NORMALS: no JVD Resp: COMMON NORMALS: normal respiratory effort AUSCULTATION: diminished lung sounds Cardio: COMMON NORMALS: no JVD, regular rhythm, S1 normal heart sound present, S2 normal heart sound present and No murmurs present (Cardio) RHYTHM: regular rhythm HEART SOUNDS: S1 normal heart sound present and S2 normal heart sound present GI: COMMON NORMALS: Normal to inspection, nondistended, normoactive bowel sounds present, Soft to palpation and non-tender PALPATION: Yes Soft to palpation Extremity: COMMON NORMALS: no joint enlargement and no pedal edema Neuro: COMMON NORMALS: moves all extremities Skin: COMMON NORMALS: no rashes or lesions noted GENERAL SKIN EXAM: no rashes or lesions noted Urinary Catheter Management: Osorio: Cath Placed During This Visit: yes Reason for Continuing Indwelling Catheter: Accurate Measurement of Urinary Output in Critically Ill Patients Urinary Catheter Date of Insertion: 05/07/24 Urinary Catheter Time of Insertion: 04:21 Data 05/07/24 01:20 05/07/24 01:20 Micro: Microbiology 05/07/24 02:25 Blood Culture - Preliminary Blood SPECIMEN COLLECTED 05/07/24 02:20 Blood Culture - Preliminary Blood SPECIMEN COLLECTED A&P Assessment and plan (1) Acute respiratory failure with hypoxia and hypercapnia: (2) COPD exacerbation: (3) NSTEMI (non-ST elevated myocardial infarction): Plan Acute hypoxic hypercarbic respiratory failure: Reviewed vitals, ventilator settings, intake and output, CBC, D-dimer, ABG, CMP, magnesium, NT proBNP, respiratory viral panel, UDS, CTA. Discussed with her . Improving on oxygen requirement, FiO2 down to 45%. On ABG improvement in CO2 and acid-base balance. Appears closer to her baseline CO2 at the moment although previously CO2 was 0.45, currently 57. Blood pH was improved down to 7.36. Continue treatment of severe COPD exacerbation, continue IV Solu-Medrol 40 mg every 8 hours, monitor for risk of gastritis, hyperglycemia, hypertension, encephalopathy. Continue ceftriaxone and azithromycin. Treat also suspected pneumonia with noted scattered bilateral peribronchial airspace opacities with volume loss. Consideration of possible aspiration pneumonia/bronchitis with finding of left paraglottic swelling, nodule, with also possible left vocal cord paralysis on prior neck CT. Per history obtained from her she was supposed to be following up on the with ENT. Records requested from [facility] [place]. May be at risk of aspiration. May benefit from MBS. Will benefit from follow- up with ENT as discussed. -Multifactorial -From COPD exacerbation -Diastolic CHF: Currently appears euvolemic. Echocardiogram obtained, follow- up. Hold off diuretics. Discussed with RT, advance ET tube, noted sick centimeters above [place] on x- ray. Perform cuff leak test at the same time. -Full code -Lovenox for DVT prophylaxis NSTEMI ? Type I versus type II. No PE on review of CTA. -Cardiac echo -Serial EKGs, serial troponins, telemetry monitoring On therapeutic Lovenox, monitor for risk of bleeding with anticoagulation, reassess blood counts. Continue aspirin, statin. Add low-dose metoprolol. History of amphetamine abuse, urine drug screen reviewed, positive for marijuana. Of note patient was transferred in March to tertiary level center for ENT evaluation, for soft tissue taking in the paraglottic space, requested medical records from [facility] [place]. RADHA on CKD: Reviewed BUN, creatinine, intake and output. RADHA showing improvement. Reassess renal function. Attestations 2 Medical Necessity Statement*: Continue admission for assessment of management of respiratory failure, severe exacerbation of COPD, pneumonia, possible aspiration with thickening and left paraglottic space, possible nodule, possible vocal cord paralysis, NSTEMI. Coding Level of Care Code Critical Care >/= 30 minutes Critical care time (in minutes): 40 The high probability of a clinically significant, sudden or life threatening deterioration, as referenced in this documentation, required my full and direct attention, intervention and personal management. The critical care time shown is in addition to time spent performing any reported separately billable procedures and includes the following: [x] Data and vital sign review and interpretation [x ] Patient assessment, examination and intervention [x] Medication orders and management [x] Patient/Family updates as able [x] Care Coordination and Documentation. Diagnoses Acute respiratory failure with hypoxia and hypercapnia J96.01; J96.02 COPD exacerbation J44.1 NSTEMI (non-ST elevated myocardial infarction) I21.4
[2024-05-07] MEDS: metoprolol tartrate 25 mg Tablet PO ×2 (16:09→20:05)
[2024-05-07] MEDS: magnesium sulfate premix 1 GM/100 ML PIGGYBACK IV (16:12)
[2024-05-07] MEDS: methylPREDNISolone sod succ 40 mg/mL INJ IVP (17:16)
[2024-05-07] MEDS: enoxaparin 80 mg/0.8 mL Syringe SUBCUT (20:05)
[2024-05-07] MEDS: propofol 1,000 MG/100 ML INJ 14.7 MG IV (20:24)
[2024-05-08] VITALS (101 sets, daily range): BP systolic 85–152; BP diastolic 46–93; PULSE 74–130; RESP 14–22; TEMP 36.8–37.6; O2SAT 90–96
[2024-05-08] MEDS: propofol 1,000 MG/100 ML INJ 12.25 MG IV ×2 (01:57→10:04)
[2024-05-08] MEDS: methylPREDNISolone sod succ 40 mg/mL INJ IVP ×3 (01:57→18:06)
[2024-05-08] MEDS: azithromycin 500 MG in sodium chloride 0.9% 250 ML 250 MG IV (03:01)
[2024-05-08] MEDS: cefTRIAXone 1,000 mg SDV 1000 MG IVP (03:05)
[2024-05-08] MEDS: pantoprazole 40 mg SDV IVP ×2 (03:05→16:02)
[2024-05-08] MEDS: ipratropium-albuterol 3 mL Neb INHALATION ×6 (03:48→23:30)
[2024-05-08 03:50] LABS: Basophils % 0.2 %; Hematocrit 37.6 % (36-47); Lymphocytes # 0.5 10^3/uL (0.8-4.8); Lymphocytes % 7.7 %; Mean Corpuscular HGB Conc 32.4 g/dL (30-55); Mean Corpuscular Hemoglobin 30.9 pg (27-33); Mean Corpuscular Volume 95.2 fl (85-98); Mean Platelet Volume 10.3 fL (7.4-10.4); Monocytes # 0.2 10^3/uL (0.2-0.9); Monocytes % 3.1 %; Neutrophils # 5.41 10^3/uL (1.8-7.7); Neutrophils % 88.7 %; Nucleated Red Blood Cells % 0 %; Platelet Count 154 10^3/cmm (157-399); Red Blood Count 3.95 10^6/uL (3.85-5.65); Red Cell Distribution Width 12.9 % (12.1-15.1)
[2024-05-08 04:28] LABS: Alanine Aminotransferase 20 U/L (0-33); Albumin Level 3.1 g/dL (3.5-5.2); Alkaline Phosphatase 57 U/L (35-105); Anion Gap 16.5 (5-19); Aspartate Amino Transferase 25 U/L (0-32); Blood Urea Nitrogen 34 mg/dL (6-20); Calcium 8.7 mg/dL (8.5-10.5); Carbon Dioxide 27 mmol/L (22-29); Chloride 99 mmol/L (98-107); Creatinine Clr Calc Pharmacy 26.2398; Globulin 2.5 g/dL (1.3-4.6); Glomerular Filtration Rate 18.7 mL/min (90-130); Glucose 148 mg/dL (65-115); Magnesium 2.3 mg/dL (1.7-2.3); Osmolality Calculated 298 mOsm/kg (285-295); Potassium 3.5 mmol/L (3.5-5.1); Sodium 139 mmol/L (136-145); Total Bilirubin 0.3 mg/dL (0.15-1.2); Total Protein 5.6 g/dL (6.6-8.7)
[2024-05-08] MEDS: budesonide 0.5 mg/2 mL Neb INHALATION ×2 (08:12→20:02)
--- NOTE | 2024-05-08 08:12 | US_ITS ---
WS: [id number] RENAL ULTRASOUND HISTORY: alex COMPARISON: None available. TECHNIQUE: 2-D and color Doppler imaging of the kidney submitted. Right kidney: 9.0 cm x 4.3 cm x 4.4 cm. Cortex: 1.2 cm Low normal size kidney. No obstruction or mass. Left kidney: 8.7 cm x 4.7 cm x 4.8 cm. Cortex: 1.0 cm Low normal size kidney. No obstruction or mass. Aorta: Normal. Urinary Bladder: Normal distention. US/US renal BI* [id number] IMPRESSION: 1. Low normal size kidneys. 2. No renal obstruction.
[2024-05-08] MEDS: aspirin 81 mg EC Tablet PO (09:42)
[2024-05-08] MEDS: metoprolol tartrate 25 mg Tablet PO ×2 (09:42→20:27)
--- NOTE | 2024-05-08 12:10 | PC.PHAR ---
Pt unable to verify home medications. Verified last fill dates with [facility]. Pt should be out of several medications. Last fill dates and days supply entered in pharmacy notes.
[2024-05-08] MEDS: fentaNYL 1,000 MCG/100 ML BAG 7.5 MCG IV (12:58)
[2024-05-08 15:08] LABS: Anion Gap 13.7 (5-19); Blood Urea Nitrogen 45 mg/dL (6-20); Calcium 8.5 mg/dL (8.5-10.5); Carbon Dioxide 29 mmol/L (22-29); Chloride 99 mmol/L (98-107); Creatinine Clr Calc Pharmacy 23.9803; Glomerular Filtration Rate 16.5 mL/min (90-130); Glucose 149 mg/dL (65-115); Osmolality Calculated 300 mOsm/kg (285-295); Potassium 3.7 mmol/L (3.5-5.1); Sodium 138 mmol/L (136-145)
[2024-05-08] MEDS: propofol 1,000 MG/100 ML INJ 14.7 MG IV (16:02)
--- NOTE | 2024-05-08 17:41 | P.CONIM_ITS ---
Providers/Reason For Consult 2 Consulting Physician/Specialty*: Dr. Henrik Rocha MD Otolaryngology, H/N Surgery Reason for Consult*: Possible laryngeal lesion Requesting Physician: Dr. Bradford Lindquist MD Attending Physician: Bradford Lindquist Primary Care Provider: GUY Garcia History of Present Illness History of Present Illness Yamileth Feliciano is a 48 year old female admitted yesterday with shortness of breath ultimately requiring intubation. I was consulted to evaluate the patient's upper airway - there were abnormalities of the preepiglottic space seen on a CT scan of the neck from over two weeks ago. The patient is intubated and sedated and is unable to answer questions. The patient has a h/o tobacco abuse. Review of Systems 2 General: Reports: 10 or more systems reviewed and unremarkable except in HPI and below Medications/Allergies Home Medications Medication Instructions Recorded Confirmed Last Taken Type aspirin 81 mg tablet,delayed 81 mg PO DAILY #30 tabs 01/15/24 05/08/24 Unknown Rx release nicotine 14 mg/24 hr daily 1 patch transdermal DAILY #14 ea 01/15/24 05/08/24 Unknown Rx transdermal patch nicotine 21 mg/24 hr daily 1 patch transdermal DAILY #36 ea 01/15/24 05/08/24 Unknown Rx transdermal patch nicotine 7 mg/24 hr daily 1 patch transdermal DAILY #14 ea 01/15/24 05/08/24 Unknown Rx transdermal patch amlodipine 10 mg tablet 10 mg PO DAILY #90 tabs 02/15/24 05/08/24 Unknown Rx atorvastatin 40 mg tablet 40 mg PO BEDTIME #90 tabs 02/15/24 05/08/24 Unknown Rx metoprolol tartrate 25 mg tablet 25 mg PO BID@0900,2100 #180 tabs 02/15/24 05/08/24 Unknown Rx albuterol sulfate 90 mcg/actuation 2 inh inhalation Q6H PRN shortness 03/10/24 05/08/24 Unknown Rx aerosol inhaler of breath or wheezing #1 pump hydralazine 50 mg tablet See Rx Instructions .Route 03/28/24 05/08/24 Unknown Rx .COMPLEX #90 tabs albuterol sulfate 2.5 mg/3 mL 2.5 mg (3 mL) inhalation Q4H PRN 04/12/24 05/08/24 Unknown Rx (0.083 %) solution for nebulization shortness of breath or wheezing #90 mL budesonide 0.5 mg/2 mL suspension 0.5 mg inhalation BID PRN 05/08/24 05/08/24 Unknown History for nebulization Shortness Of Breath Allergies Allergy/AdvReac Type Severity Reaction Status Date / Time hydromorphone [From Dilaudid] Allergy ADR-Migrain Verified 03/10/24 17:29 e Current Medications Generic Name Dose Route Start Last Admin Trade Name Freq PRN Reason Stop Dose Admin Albuterol/Ipratropium 3 ml 05/07/24 04:00 05/08/24 15:49 Ipratropium-Albuterol 3 Ml Neb INHALATION 3 ml Q4H.RESPIRATORY PARDEEP Administration Aspirin 81 mg 05/07/24 09:00 05/08/24 09:42 Aspirin 81 Mg Ec Tablet PO 81 mg DAILY PARDEEP Administration Atorvastatin Calcium 40 mg 05/07/24 21:00 05/07/24 20:22 Atorvastatin 40 Mg Tablet PO Not Given BEDTIME PARDEEP Budesonide 0.5 mg 05/07/24 08:00 05/08/24 08:12 Budesonide 0.5 Mg/2 Ml Neb INHALATION 0.5 mg BID.RESPIRATORY PARDEEP Administration Ceftriaxone Sodium 1,000 mg 05/07/24 03:57 05/08/24 03:05 Ceftriaxone 1,000 Mg Sdv IVP 1,000 mg Q24H PARDEEP Administration Protocol Propofol 1,000 mg in 100 mls @ 0 mls/hr 05/07/24 01:15 05/08/24 16:02 Diprivan IV 30 mcg/kg/min .Q0M PARDEEP 14.7 mls/hr Administration Protocol Per Protocol Fentanyl 1,000 mcg in 100 mls @ 0 mls/hr 05/07/24 01:15 05/08/24 12:58 Sublimaze IV 75 mcg/hr .Q0M PARDEEP 7.5 mls/hr Administration Protocol Per Protocol Azithromycin 500 mg/ Sodium 250 mls @ 250 mls/hr 05/07/24 03:57 05/08/24 04:01 Chloride IV Infused Q24H PARDEEP Infusion Protocol Methylprednisolone Sodium Succinate 40 mg 05/07/24 18:00 05/08/24 09:42 Methylprednisolone Sod Succ 40 Mg/Ml Inj IVP 40 mg Q8H PARDEEP Administration Metoprolol Tartrate 25 mg 05/07/24 15:15 05/08/24 09:42 Metoprolol Tartrate 25 Mg Tablet PO 25 mg BID@0900,2100 PARDEEP Administration Pantoprazole Sodium 40 mg 05/07/24 03:57 05/08/24 16:02 Pantoprazole 40 Mg Sdv IVP 40 mg Q12H PARDEEP Administration PFSH Acute 2 PFSH: Medical History COPD (chronic obstructive pulmonary disease) CKD (chronic kidney disease) Diastolic heart failure Hypertension Coronary artery disease Coronary angiogram from 01/13 showed moderate disease in LCx and LAD?negative on IFR Abnormal stress test Cannabis use disorder, mild, abuse Amphetamine use disorder, severe, dependence Bipolar disorder in full remission Bipolar disorder Social History Smoking and tobacco/nicotine status: current every day tobacco/nicotine user cigarettes Packs smoked per day: 1.5 Years cigarettes smoked: 30 Quit status (tobacco/nicotine): not considering quitting Second hand smoke exposure: Yes Current gender identity: Female Vitals/I&O/Wt Last Vital Signs Temp 99.6 F 05/08/24 09:00 Pulse 110 H 05/08/24 16:00 Resp 14 05/08/24 15:50 BP 119/68 05/08/24 16:00 Pulse Ox 95 05/08/24 16:00 O2 Del Method Mechanical Ventilation 05/08/24 15:50 FiO2 45 05/08/24 15:50 05/08/24 05/08/24 05/08/24 06:59 14:59 22:59 Intake Total 359.024 / 1054.357 182.041 / 182.041 69.825 / 251.866 Output Total 160 / 635 Balance 199.024 / 419.357 182.041 / 182.041 69.825 / 251.866 Weight last 48 hrs Weight 83.773 kg Weight 81.2 kg Weight 81.9 kg Weight 81.647 kg Physical Exam 2 Const: GENERAL APPEARANCE: patient mechanically ventilated HENMT: COMMON NORMALS: normocephalic, atraumatic and Normal external nose present HEAD & SCALP: normocephalic and atraumatic FACE & SINUS: normal facial exam NOSE: Normal external nose present Neck/C-Spine: COMMON NORMALS: no lymphadenopathy Lymph: LYMPHATIC: no lymphadenopathy noted Urinary Catheter Management: Osorio: Cath Placed During This Visit: yes Reason for Continuing Indwelling Catheter: Accurate Measurement of Urinary Output in Critically Ill Patients Urinary Catheter Date of Insertion: 05/07/24 Urinary Catheter Time of Insertion: 04:21 Data 05/08/24 03:18 05/08/24 14:21 Micro: Microbiology 05/07/24 04:27 Gram Stain - Final Sputum - Endotracheal Tube Aspirate Sputum Culture - Preliminary 05/07/24 02:25 Blood Culture - Preliminary Blood NEGATIVE TO DATE 05/07/24 02:20 Blood Culture - Preliminary Blood NEGATIVE TO DATE Other CT: My impression: Impression: Irregular swelling in the paraglottic space. A&P Assessment and plan (1) Acute respiratory failure with hypoxia and hypercapnia: Impression: With possible paraglottic/glottic Neoplasm Recommendations: - I recommend a repeat Neck CT with IV contrast - Consider surgical direct laryngoscopy as indicated by the f/u CT - I am unable to perform a bedside flexible laryngoscopy given the patient's intabed status - this will be best done under general anesthesia as above. Consult Attestations 2 Medical Necessity Statement: I was consulted to assess the patient's airway. Coding Level of Care Code Acute Code for Chg Fwd Diagnoses Acute respiratory failure with hypoxia and hypercapnia J96.01; J96.02
--- NOTE | 2024-05-08 17:49 | P.CONIM_ITS ---
Providers/Reason For Consult 2 Consulting Physician/Specialty*: kommana/Nephrology Reason for Consult*: RADHA Attending Physician: Bradford Lindquist Primary Care Provider: GUY Garcia History of Present Illness History of Present Illness Yamileth Feliciano is a 48 year old female Patient is a 48-year-old female with past medical history of COPD, history of coronary artery disease, dyslipidemia hypertension diastolic CHF, chronic kidney disease presented [facility] on 05/07/2024 due to shortness of breath. Patient was found to be in acute respiratory distress with hypoxia in the ED and was intubated in the emergency department. Lab data significant for creatinine of 1.3 at that time. Also has elevated troponin. Patient was initially thought to have COPD exacerbation and NSTEMI with acute respiratory failure. CT angiogram was done that showed negative for pulmonary embolism. There was a concern for possible swelling in the paraglottic space and ENT was asked to evaluate the patien, who recommended repeat neck CT with IV contrast. Patient has history of CKD with a baseline creatinine of 1.5-1.8 range and has a creatinine of 1.3 on presentation that is progressively gotten worse to 3.0 and is oliguric. Review of Systems 2 Narrative: Cannot obtain full ROS assessment Medications/Allergies Home Medications Medication Instructions Recorded Confirmed Last Taken Type aspirin 81 mg tablet,delayed 81 mg PO DAILY #30 tabs 01/15/24 05/08/24 Unknown Rx release nicotine 14 mg/24 hr daily 1 patch transdermal DAILY #14 ea 01/15/24 05/08/24 Unknown Rx transdermal patch nicotine 21 mg/24 hr daily 1 patch transdermal DAILY #36 ea 01/15/24 05/08/24 Unknown Rx transdermal patch nicotine 7 mg/24 hr daily 1 patch transdermal DAILY #14 ea 01/15/24 05/08/24 Unknown Rx transdermal patch amlodipine 10 mg tablet 10 mg PO DAILY #90 tabs 02/15/24 05/08/24 Unknown Rx atorvastatin 40 mg tablet 40 mg PO BEDTIME #90 tabs 02/15/24 05/08/24 Unknown Rx metoprolol tartrate 25 mg tablet 25 mg PO BID@0900,2100 #180 tabs 02/15/24 05/08/24 Unknown Rx albuterol sulfate 90 mcg/actuation 2 inh inhalation Q6H PRN shortness 03/10/24 05/08/24 Unknown Rx aerosol inhaler of breath or wheezing #1 pump hydralazine 50 mg tablet See Rx Instructions .Route 03/28/24 05/08/24 Unknown Rx .COMPLEX #90 tabs albuterol sulfate 2.5 mg/3 mL 2.5 mg (3 mL) inhalation Q4H PRN 04/12/24 05/08/24 Unknown Rx (0.083 %) solution for nebulization shortness of breath or wheezing #90 mL budesonide 0.5 mg/2 mL suspension 0.5 mg inhalation BID PRN 05/08/24 05/08/24 Unknown History for nebulization Shortness Of Breath Allergies Allergy/AdvReac Type Severity Reaction Status Date / Time hydromorphone [From Dilaudid] Allergy ADR-Migrain Verified 03/10/24 17:29 e Current Medications Generic Name Dose Route Start Last Admin Trade Name Freq PRN Reason Stop Dose Admin Albuterol/Ipratropium 3 ml 05/07/24 04:00 05/08/24 15:49 Ipratropium-Albuterol 3 Ml Neb INHALATION 3 ml Q4H.RESPIRATORY PARDEEP Administration Aspirin 81 mg 05/07/24 09:00 05/08/24 09:42 Aspirin 81 Mg Ec Tablet PO 81 mg DAILY PARDEEP Administration Atorvastatin Calcium 40 mg 05/07/24 21:00 05/07/24 20:22 Atorvastatin 40 Mg Tablet PO Not Given BEDTIME PARDEEP Budesonide 0.5 mg 05/07/24 08:00 05/08/24 08:12 Budesonide 0.5 Mg/2 Ml Neb INHALATION 0.5 mg BID.RESPIRATORY PARDEEP Administration Ceftriaxone Sodium 1,000 mg 05/07/24 03:57 05/08/24 03:05 Ceftriaxone 1,000 Mg Sdv IVP 1,000 mg Q24H PARDEEP Administration Protocol Propofol 1,000 mg in 100 mls @ 0 mls/hr 05/07/24 01:15 05/08/24 16:02 Diprivan IV 30 mcg/kg/min .Q0M PARDEEP 14.7 mls/hr Administration Protocol Per Protocol Fentanyl 1,000 mcg in 100 mls @ 0 mls/hr 05/07/24 01:15 05/08/24 12:58 Sublimaze IV 75 mcg/hr .Q0M PARDEEP 7.5 mls/hr Administration Protocol Per Protocol Azithromycin 500 mg/ Sodium 250 mls @ 250 mls/hr 05/07/24 03:57 05/08/24 04:01 Chloride IV Infused Q24H PARDEEP Infusion Protocol Methylprednisolone Sodium Succinate 40 mg 05/07/24 18:00 05/08/24 09:42 Methylprednisolone Sod Succ 40 Mg/Ml Inj IVP 40 mg Q8H PARDEEP Administration Metoprolol Tartrate 25 mg 05/07/24 15:15 05/08/24 09:42 Metoprolol Tartrate 25 Mg Tablet PO 25 mg BID@0900,2100 PARDEEP Administration Pantoprazole Sodium 40 mg 05/07/24 03:57 05/08/24 16:02 Pantoprazole 40 Mg Sdv IVP 40 mg Q12H PARDEEP Administration PFSH Acute 2 PFSH: Medical History COPD (chronic obstructive pulmonary disease) CKD (chronic kidney disease) Diastolic heart failure Hypertension Coronary artery disease Coronary angiogram from 01/13 showed moderate disease in LCx and LAD?negative on IFR Abnormal stress test Cannabis use disorder, mild, abuse Amphetamine use disorder, severe, dependence Bipolar disorder in full remission Bipolar disorder Social History Smoking and tobacco/nicotine status: current every day tobacco/nicotine user cigarettes Packs smoked per day: 1.5 Years cigarettes smoked: 30 Quit status (tobacco/nicotine): not considering quitting Second hand smoke exposure: Yes Current gender identity: Female Vitals/I&O/Wt Last Vital Signs Temp 99.6 F 05/08/24 09:00 Pulse 110 H 05/08/24 16:00 Resp 14 05/08/24 15:50 BP 119/68 05/08/24 16:00 Pulse Ox 95 05/08/24 16:00 O2 Del Method Mechanical Ventilation 05/08/24 15:50 FiO2 45 05/08/24 15:50 05/08/24 05/08/24 05/08/24 06:59 14:59 22:59 Intake Total 359.024 / 1054.357 182.041 / 182.041 69.825 / 251.866 Output Total 160 / 635 Balance 199.024 / 419.357 182.041 / 182.041 69.825 / 251.866 Weight last 48 hrs Weight 83.773 kg Weight 81.2 kg Weight 81.9 kg Weight 81.647 kg Physical Exam 2 Narrative: Patient is intubated Urinary Catheter Management: Osorio: Cath Placed During This Visit: yes Reason for Continuing Indwelling Catheter: Accurate Measurement of Urinary Output in Critically Ill Patients Urinary Catheter Date of Insertion: 05/07/24 Urinary Catheter Time of Insertion: 04:21 Data 05/08/24 03:18 05/08/24 14:21 Micro: Microbiology 05/07/24 04:27 Gram Stain - Final Sputum - Endotracheal Tube Aspirate Sputum Culture - Preliminary 05/07/24 02:25 Blood Culture - Preliminary Blood NEGATIVE TO DATE 05/07/24 02:20 Blood Culture - Preliminary Blood NEGATIVE TO DATE A&P Assessment and plan (1) CKD (chronic kidney disease): (2) RADHA (acute kidney injury): 1. Acute on chronic kidney disease stage III: Baseline creatinine in the mid 2 range. Etiology likely ATN in the setting of possible sepsis. Patient oliguric, electrolytes stable, intubated, not on pressors. Received IV contrast on 05/07. Reviewed normal parish -ENT amending another CT scan with IV contrast. -Will start patient on normal saline at 60 cc/h x 6 hours pre and post , and can proceed with CT with IV contrast, understanding the risk of worsening RADHA and may require temporary dialysis -Renally dose medications for GFR less than 15 2. Acute respiratory failure, multifactorial in the setting of CHF, COPD and concern for swelling in the para Glottic space, ENT following, plan for repeat CT with IV contrast 3. NSTEMI, 4. History of CHF, off diuretics currently Patient evaluated using audiovisual cart. Time spent 40 minutes. Consult Attestations 2 Medical Necessity Statement: per jevon Coding Level of Care Code Acute Code for Chg Fwd Diagnoses CKD (chronic kidney disease) N18.9 RADHA (acute kidney injury) N17.9
[2024-05-08] MEDS: sodium chloride 0.9% 1,000 ML 60 ML IV (18:51)
--- NOTE | 2024-05-08 19:58 | CTR_ITS ---
PROCEDURE INFORMATION: Exam: CT Neck Without Contrast Exam date and time: 05/09/2024 12:07 AM Age: 48 years old Clinical indication: Other: Paraglottic nodule evaluation TECHNIQUE: Imaging protocol: Computed tomography of the neck without contrast. Radiation optimization: All CT scans at this facility use at least one of these dose optimization techniques: automated exposure control; mA and/or kV adjustment per patient size (includes targeted exams where dose is matched to clinical indication); or iterative reconstruction. COMPARISON: CT neck wo con [id number] 04/20/2024 1:11 PM RADIATION DOSE METRICS: Total DLP (mGy-cm): 318 FINDINGS: Please note that exam is somewhat limited given lack of IV contrast as well as distortion of the soft tissues secondary to endotracheal tube and nasogastric tubes. Tubes, catheters and devices: Endotracheal tube is present with its tip above the [place]. Nasogastric tube is partially visualized within the esophagus. Salivary glands: Normal. Glands are normal in size. Pharynx: There is adenoidal hypertrophy . The uvula is not well-visualized. No definite abnormalities are noted with regards to the tonsillar beds. Prevertebral and retropharyngeal spaces: Unremarkable. Larynx: The epiglottis is not well-visualized. Aryepiglottic folds are nondistended. Puriform sinuses vallecula are nondistended. There is circumferential soft tissue thickening somewhat greater on the left than on the right with regards to the vocal cords. Findings could be inflammatory or could be related to tumor. Findings slightly worse on today's exam when compared to prior exam. Thyroid: Normal. No enlarged or calcified nodules. Trachea: Visualized trachea is unremarkable. Lungs: Unremarkable as visualized. Pleural spaces: There is a small left pleural effusion. Lymph nodes: Unremarkable. No lymphadenopathy. Bones/joints: Unremarkable. No acute fracture. Soft tissues: Unremarkable. No significant soft tissue swelling. CT/CT neck wo con [id number] IMPRESSION: 1. Limited exam secondary to lack of IV contrast as well as distortion of soft tissues secondary to endotracheal tube and nasogastric tube. 2. Soft tissue thickening involving the larynx particularly on the left. Findings appear to be slightly worse on today's exam. Findings could be related to tumor or could be inflammatory in origin. Recommend direct visualization. 3. Suspected adenoidal hypertrophy.
--- NOTE | 2024-05-08 20:17 | PM.PN ---
Subjective Subjective: Wakes up, opens eyes, answers questions. Not in pain. Does get intermittently anxious/tachycardic/with ventilator dyssynchrony. Vitals/I&O/Wt Last Vital Signs Temp 99.5 F 05/08/24 14:45 Pulse 77 05/08/24 20:04 Resp 14 05/08/24 20:04 BP 119/68 05/08/24 16:00 Pulse Ox 93 05/08/24 20:04 O2 Del Method Mechanical Ventilation 05/08/24 20:04 FiO2 45 05/08/24 20:04 05/08/24 05/08/24 05/08/24 06:59 14:59 22:59 Intake Total 359.024 / 1054.357 182.041 / 182.041 69.825 / 251.866 Output Total 160 / 635 250 / 250 Balance 199.024 / 419.357 182.041 / 182.041 -180.175 / 1.866 Weight last 48 hrs Weight 83.773 kg Weight 81.2 kg Weight 81.9 kg Weight 81.647 kg Physical Exam Const: GENERAL APPEARANCE: cooperative and patient mechanically ventilated HENMT: COMMON NORMALS: oropharynx normal Neck/C-Spine: COMMON NORMALS: no JVD Resp: COMMON NORMALS: normal respiratory effort AUSCULTATION: diminished lung sounds Cardio: COMMON NORMALS: no JVD, regular rhythm, S1 normal heart sound present, S2 normal heart sound present and No murmurs present (Cardio) RHYTHM: regular rhythm HEART SOUNDS: S1 normal heart sound present and S2 normal heart sound present GI: COMMON NORMALS: Normal to inspection, nondistended, normoactive bowel sounds present, Soft to palpation and non-tender PALPATION: Yes Soft to palpation Extremity: COMMON NORMALS: no joint enlargement and no pedal edema Neuro: COMMON NORMALS: moves all extremities Skin: COMMON NORMALS: no rashes or lesions noted GENERAL SKIN EXAM: no rashes or lesions noted Urinary Catheter Management: Osorio: Cath Placed During This Visit: yes Reason for Continuing Indwelling Catheter: Accurate Measurement of Urinary Output in Critically Ill Patients Urinary Catheter Date of Insertion: 05/07/24 Urinary Catheter Time of Insertion: 04:21 Data 05/08/24 03:18 05/08/24 14:21 Micro: Microbiology 05/07/24 04:27 Gram Stain - Final Sputum - Endotracheal Tube Aspirate Sputum Culture - Preliminary 05/07/24 02:25 Blood Culture - Preliminary Blood NEGATIVE TO DATE 05/07/24 02:20 Blood Culture - Preliminary Blood NEGATIVE TO DATE A&P Assessment and plan (1) Acute respiratory failure with hypoxia and hypercapnia: (2) COPD exacerbation: (3) NSTEMI (non-ST elevated myocardial infarction): Plan Acute hypoxic hypercarbic respiratory failure: Reviewed vitals, ventilator settings. Discussed with nursing, respiratory therapist. Yesterday ET tube was advanced, with cuff leak checked but no cuff leak detected reportedly. Confirmed today, still no cuff leak. Still no records from [facility]. Later it is found that patient's has to sign in person for records to be able to be obtained. There are difficulties communicating with patient's as he does not have a cell phone. He can take a call from a neighbor. He also gets a ride to the hospital to spend time with the patient during the day. Records requested later today with patient's physician coming in and signing the form. Findings additionally discussed with ENT, appreciate consultation. CT neck with contrast requested initially, however, with worsened renal function could not be performed. On assessment by ENT for now noncontrast studies requested given on reassessment of renal function. This showing further worsening, BUN up to 45, creatinine 3. Discussed with icer hand, appreciate consultation. I came to the ICU to further discuss patient's condition and findings with her but he had left at that time. We did discuss CT scan and possible ENT consultation with him yesterday. Discussed concern regarding whether the current findings can be addressed to allow for extubation or whether tracheostomy may be required. To allow for the noncontrast CT study due to anxiety, vent dyssynchrony, sedation is increased, with soft blood pressure transiently Levophed is added in case of hypotension. Discussed with nursing staff to de-escalate sedation back after study, please confirm, discontinue Levophed if not needed. Improved oxygen requirement from admission, FiO2 down at 45%. On ABG improvement in CO2 and acid-base balance. Appears closer to her baseline CO2 at the moment although previously CO2 was 0.45, currently 57. Blood pH was improved down to 7.36. Continue treatment of severe COPD exacerbation, continue IV Solu-Medrol 40 mg every 8 hours, monitor for risk of gastritis, hyperglycemia, hypertension, encephalopathy. Continue ceftriaxone and azithromycin. Treat also suspected pneumonia with noted scattered bilateral peribronchial airspace opacities with volume loss. Consideration of possible aspiration pneumonia/bronchitis with finding of left paraglottic swelling, nodule, with also possible left vocal cord paralysis on prior neck CT. Per history obtained from her she was supposed to be following up on the with ENT. Records requested from [facility]. May be at risk of aspiration. May benefit from MBS. -Diastolic CHF: Currently appears euvolemic. Echocardiogram obtained, follow-up. Hold off diuretics. ET tube was advanced. -Full code -Lovenox for DVT prophylaxis RADHA: Creatinine worsening up to 2.7 this morning. Recheck renal function, BUN up to 45, creatinine up to 3. Oliguric. Discussed with icer hand. Appreciate consultation. Requested urine sodium, urine creatinine. Bladder scan obtained, no retention. Requested kidney ultrasound. No obstructive uropathy noted. Small normal kidneys. I was unable to discuss these findings with patient's . NSTEMI ? Type I versus type II. No PE on review of CTA. -Cardiac echo -Serial EKGs, serial troponins, telemetry monitoring On therapeutic Lovenox, monitor for risk of bleeding with anticoagulation, reassess blood counts. Continue aspirin, statin. Add low-dose metoprolol. History of amphetamine abuse, urine drug screen reviewed, positive for marijuana. Of note patient was transferred in March to tertiary level center for ENT evaluation, for soft tissue taking in the paraglottic space, requested medical records from [facility]. RADHA on CKD: Reviewed BUN, creatinine, intake and output. RADHA showing improvement. Reassess renal function. Attestations Medical Necessity Statement*: Continue admission for assessment of management of respiratory failure, paraglottic space thickening, vocal cord paralysis, severe exacerbation of COPD, pneumonia, possible aspiration, NSTEMI. Coding Level of Care Code Critical Care >/= 30 minutes Critical care time (in minutes): 50 The high probability of a clinically significant, sudden or life threatening deterioration, as referenced in this documentation, required my full and direct attention, intervention and personal management. The critical care time shown is in addition to time spent performing any reported separately billable procedures and includes the following: [x] Data and vital sign review and interpretation [x] Patient assessment, examination and intervention [x] Medication orders and management [x] Patient/Family updates as able [x] Care Coordination and Documentation. Diagnoses Acute respiratory failure with hypoxia and hypercapnia J96.01; J96.02 COPD exacerbation J44.1 NSTEMI (non-ST elevated myocardial infarction) I21.4
[2024-05-08] MEDS: enoxaparin 80 mg/0.8 mL Syringe SUBCUT (20:27)
[2024-05-08] MEDS: norepinephrine 4 MG/250 ML BAG 7.5 MG IV (20:28)
[2024-05-08] MEDS: propofol 1,000 MG/100 ML INJ 19.6 MG IV (23:22)
[2024-05-09] VITALS (99 sets, daily range): BP systolic 85–135; BP diastolic 46–116; PULSE 62–101; RESP 14–26; TEMP 36.6–36.9; O2SAT 91–98
[2024-05-09] MEDS: fentaNYL 1,000 MCG/100 ML BAG 7.5 MCG IV ×2 (01:04→12:21)
[2024-05-09] MEDS: methylPREDNISolone sod succ 40 mg/mL INJ IVP ×3 (01:04→18:36)
[2024-05-09] MEDS: ipratropium-albuterol 3 mL Neb INHALATION ×5 (03:49→19:56)
[2024-05-09] MEDS: cefTRIAXone 1,000 mg SDV 1000 MG IVP (03:53)
[2024-05-09] MEDS: azithromycin 500 MG in sodium chloride 0.9% 250 ML 250 MG IV (03:53)
[2024-05-09] MEDS: pantoprazole 40 mg SDV IVP ×2 (03:53→16:02)
[2024-05-09] MEDS: propofol 1,000 MG/100 ML INJ 17.15 MG IV ×2 (04:19→11:05)
[2024-05-09 04:53] LABS: ABG PCO2 46.2 mmHg (35-45); ABG PH Result 7.39 (7.35-7.45); Arterial Blood Gas Hematocrit 36.9 % (37-47); Base Excess ABG 2.5 mmol/L (-2.0-2.0); Blood Gas Allen Test Pos; Blood Gas Sample Type Arterial; Carboxyhemoglobin 0.6 %THgb (0.4-20.1); HGB O2 Sat 96.8 % (95-100); Ionized Calcium Level - ABG 1.1 mmol/L (1.1-1.4); Oxygen Saturation ABG 98.5; Potassium Level - ABG 3.4 mmol/L (3.5-5.0)
[2024-05-09 04:54] LABS: Blood Gas Operator Identificat JDB; Blood Gas Sample Site Radial, right; Blood Gas Tidal Volume 0.45; Oxygen Device VENT; PO2 FiO2 Ratio Arterial Blood 224
[2024-05-09 05:03] LABS: Hematocrit 33.8 % (36-47); Lymphocytes # 0.4 10^3/uL (0.8-4.8); Lymphocytes % 5.9 %; Mean Corpuscular HGB Conc 32.8 g/dL (30-55); Mean Corpuscular Hemoglobin 30.8 pg (27-33); Mean Corpuscular Volume 93.9 fl (85-98); Mean Platelet Volume 10.3 fL (7.4-10.4); Monocytes # 0.1 10^3/uL (0.2-0.9); Monocytes % 2.2 %; Neutrophils # 5.45 10^3/uL (1.8-7.7); Neutrophils % 91.6 %; Nucleated Red Blood Cells % 0 %; Platelet Count 139 10^3/cmm (157-399); Red Cell Distribution Width 13.4 % (12.1-15.1); White Blood Count 5.95 10^3/uL (3.29-11.43)
[2024-05-09 05:18] LABS: Alanine Aminotransferase 16 U/L (0-33); Alkaline Phosphatase 50 U/L (35-105); Anion Gap 14.7 (5-19); Aspartate Amino Transferase 24 U/L (0-32); Blood Urea Nitrogen 56 mg/dL (6-20); Calcium 7.9 mg/dL (8.5-10.5); Carbon Dioxide 28 mmol/L (22-29); Chloride 100 mmol/L (98-107); Creatinine Clr Calc Pharmacy 26.6448; Globulin 2.3 g/dL (1.3-4.6); Glomerular Filtration Rate 18.7 mL/min (90-130); Glucose 132 mg/dL (65-115); Osmolality Calculated 305 mOsm/kg (285-295); Potassium 3.7 mmol/L (3.5-5.1); Sodium 139 mmol/L (136-145); Total Bilirubin 0.2 mg/dL (0.15-1.2); Total Protein 5.3 g/dL (6.6-8.7)
[2024-05-09] MEDS: budesonide 0.5 mg/2 mL Neb INHALATION ×2 (08:00→19:56)
[2024-05-09 08:07] LABS: Urine Random Sodium < 10 mmol/L
--- NOTE | 2024-05-09 08:36 | P.PN_ITS ---
Subjective 2 Subjective: remains on vent Medications: Reviewed: Yes Vitals/I&O/Wt Last Vital Signs Temp 97.8 F 05/09/24 03:46 Pulse 64 05/09/24 08:00 Resp 14 05/09/24 08:00 BP 85/56 05/09/24 04:45 Pulse Ox 94 05/09/24 08:00 O2 Del Method Mechanical Ventilation 05/09/24 08:00 FiO2 45 05/09/24 08:00 05/08/24 05/09/24 05/09/24 22:59 06:59 14:59 Intake Total 159.618 / 341.659 481.977 / 823.636 Output Total 450 / 450 150 / 600 Balance -290.382 / -108.341 331.977 / 223.636 Weight last 48 hrs Weight 84.085 kg Weight 83.773 kg Physical Exam 2 Narrative: Patient is intubated Urinary Catheter Management: Osorio: Cath Placed During This Visit: yes Reason for Continuing Indwelling Catheter: Accurate Measurement of Urinary Output in Critically Ill Patients Urinary Catheter Date of Insertion: 05/07/24 Urinary Catheter Time of Insertion: 04:21 Data 05/09/24 04:25 05/09/24 04:25 Micro: Microbiology 05/07/24 04:27 Gram Stain - Final Sputum - Endotracheal Tube Aspirate Sputum Culture - Preliminary A&P Assessment and plan (1) CKD (chronic kidney disease): (2) RADHA (acute kidney injury): 1. Acute on chronic kidney disease stage III: Baseline creatinine in the mid 2 range. Etiology likely ATN in the setting of possible sepsis. Patient oliguric, electrolytes stable, intubated, not on pressors. Received IV contrast on 05/07. - started patient on normal saline at 60 cc/h , -Renally dose medications for GFR less than 15 - renal fxn stable currently , no indication for hD , 2. Acute respiratory failure, multifactorial in the setting of CHF, COPD and concern for swelling in the para Glottic space, ENT following, 3. NSTEMI, 4. History of CHF, off diuretics currently Patient evaluated using audiovisual cart. Time spent 40 minutes. Attestations 2 Medical Necessity Statement*: per [facility] Coding Level of Care Code Acute Code for [facility] Fwd Diagnoses CKD (chronic kidney disease) N18.9 RADHA (acute kidney injury) N17.9
[2024-05-09] MEDS: aspirin 81 mg EC Tablet PO (09:33)
--- NOTE | 2024-05-09 09:44 | PC.NURSE ---
Patient's Blood pressure was 104/50 and was suppose to get their morning metoprolol. Dr. Garcia was notified and he ordered to hold dose of metoprolol.
[2024-05-09] MEDS: sodium chloride 0.9% 1,000 ML 60 ML IV (10:13)
--- NOTE | 2024-05-09 10:28 | PC.NURSE ---
Evelyn lamar denied giving us the patient's records. They stated that the patient themselves needed to sign the release form. The signed it but they denied it.
[2024-05-09 10:51] LABS: Urine Creatinine 95 mg/dL (28-217)
--- NOTE | 2024-05-09 14:09 | P.PN_ITS ---
Subjective 2 Subjective: 48 yo wf who was admitted with respirato ry failure who has been intubated and mechanically ventilated. I was consulted to assist in evaluation/treatment of airway obstruction that was noted on a neck CT scan. Medications: Reviewed: Yes Vitals/I&O/Wt Last Vital Signs Temp 98.0 F 05/09/24 09:30 Pulse 76 05/09/24 12:01 Resp 14 05/09/24 13:44 BP 117/56 05/09/24 12:01 Pulse Ox 93 05/09/24 13:44 O2 Del Method Mechanical Ventilation 05/09/24 12:01 FiO2 45 05/09/24 13:44 05/08/24 05/09/24 05/09/24 22:59 06:59 14:59 Intake Total 159.618 / 341.659 481.977 / 285.834 5854.779 / 1133.779 Output Total 450 / 450 150 / 600 235 / 235 Balance -290.382 / -108.341 331.977 / 223.636 898.779 / 898.779 Weight last 48 hrs Weight 84.085 kg Weight 83.773 kg Physical Exam 2 Const: COMMON NORMALS: alert GENERAL APPEARANCE: cooperative, well developed and patient mechanically ventilated HENMT: COMMON NORMALS: normocephalic, atraumatic and Normal external nose present HEAD & SCALP: normocephalic and atraumatic FACE & SINUS: normal facial exam NOSE: Normal external nose present and Normal nares present Neck/C-Spine: COMMON NORMALS: no lymphadenopathy GENERAL: Yes normal visual inspection and Yes trachea midline Neuro: SENSORIUM/ORIENTATION: Yes alert Urinary Catheter Management: Osorio: Cath Placed During This Visit: yes Reason for Continuing Indwelling Catheter: Accurate Measurement of Urinary Output in Critically Ill Patients Urinary Catheter Date of Insertion: 05/07/24 Urinary Catheter Time of Insertion: 04:21 Data 05/09/24 04:25 05/09/24 04:25 Micro: Microbiology 05/07/24 04:27 Gram Stain - Final Sputum - Endotracheal Tube Aspirate Sputum Culture - Preliminary Streptococcus pneumoniae Other CT: My impression: Obstruction at the level of the glottis: the differential diagnosis includes neoplasm vs infectious/inflammatory causes; o/w as per radiology evaluation. A&P Assessment and plan (1) Acute respiratory failure with hypoxia and hypercapnia: Impression: Airway obstruction at the level of the glottis by non contrast CT scan Plan: I recommend the following - - Tracheotomy under anesthesia followed by Direct/Microdirect laryngoscopy with biopsy/biopsies to determine the etiology of the patient's airway obstruction - I discussed this with the patient off of sedation. I explained the potential risks and complications of the procedure with the patient. She expressed understanding and wishes to proceed with surgery. There are no other family members available/contactable. Attestations 2 Medical Necessity Statement*: I was consulted to assist in the management of the patient's airway. Coding Level of Care Code Acute Code for [facility] Fwd Diagnoses Acute respiratory failure with hypoxia and hypercapnia J96.01; J96.02
--- NOTE | 2024-05-09 14:35 | P.PN_ITS ---
Subjective 2 Subjective: Opens eyes on ventilator. Significantly sedated. History and physical, daily notes reviewed. Medications: Reviewed: Yes Vitals/I&O/Wt Last Vital Signs Temp 98.0 F 05/09/24 09:30 Pulse 76 05/09/24 12:01 Resp 14 05/09/24 13:44 BP 117/56 05/09/24 12:01 Pulse Ox 93 05/09/24 13:44 O2 Del Method Mechanical Ventilation 05/09/24 12:01 FiO2 45 05/09/24 13:44 05/08/24 05/09/24 05/09/24 22:59 06:59 14:59 Intake Total 159.618 / 341.659 481.977 / 357.708 0867.779 / 1133.779 Output Total 450 / 450 150 / 600 235 / 235 Balance -290.382 / -108.341 331.977 / 223.636 898.779 / 898.779 Weight last 48 hrs Weight 84.085 kg Weight 83.773 kg Physical Exam 2 Narrative: General Exam sedated on vent, settings reviewed Neck is supple Cardiovascular regular rhythm Lungs clear no wheezing Abdomen is soft, bowel sounds noted Extremities no cyanosis, or edema Urinary Catheter Management: Osorio: Cath Placed During This Visit: yes Reason for Continuing Indwelling Catheter: Accurate Measurement of Urinary Output in Critically Ill Patients Urinary Catheter Date of Insertion: 05/07/24 Urinary Catheter Time of Insertion: 04:21 Data 05/09/24 04:25 05/09/24 04:25 Micro: Microbiology 05/07/24 04:27 Gram Stain - Final Sputum - Endotracheal Tube Aspirate Sputum Culture - Preliminary Streptococcus pneumoniae A&P Assessment and plan (1) Acute respiratory failure with hypoxia and hypercapnia: (2) COPD exacerbation: (3) NSTEMI (non-ST elevated myocardial infarction): Plan Acute hypoxic hypercarbic respiratory failure: No cuff leak. ENT recommends surgery, tracheostomy, evaluation for what is causing narrowing in neck. Currently having trouble reaching family. Patient does not have capacity with her current level of sedation to make decisions regarding this. Overall, FiO2 requirement has decreased to 45%. Repeat ABG and chest x-ray tomorrow. Propofol and fentanyl for sedation Acute COPD exacerbation. Continue IV steroids, pulmonary toilet Concern of pneumonia. Continue ceftriaxone and azithromycin. Left paraglottic swelling. Concern of possible left vocal cord paralysis. Suspect mass. ENT recommends tracheostomy, evaluation in the OR, likely biopsy Acute diastolic CHF. Currently euvolemic Acute kidney injury. Monitor closely for improvement. Diuretics being held. Renal ultrasound demonstrates no obstruction Non-ST elevation myocardial infarction. Likely type II. No PE on CTA. Continue aspirin, statin, beta-yi. On therapeutic Lovenox. Likely decreased to DVT dosing tomorrow. Echo shows preserved EF, no wall motion abnormalities -Full code -Lovenox for DVT prophylaxis Attestations 2 Medical Necessity Statement*: Needs continued hospitalization secondary to respiratory failure requiring ventilatory support. Critical Care Time: The high probability of a clinically significant, sudden or life threatening deterioration of the patient's [renal, resp, infectious disease, etc] system(s) required my full and direct attention, intervention and personal management. The critical care time is as shown. This time is in addition to time spent performing any reported procedures but includes the following: [x] Data and vital sign review and interpretation [x] Patient assessment, examination and intervention [x] Documentation [x] Medication orders and management Critical Care Time (min): 53 Coding Level of Care Code Critical Care >/= 30 minutes Critical care time (in minutes): 53 The high probability of a clinically significant, sudden or life threatening deterioration, as referenced in this documentation, required my full and direct attention, intervention and personal management. The critical care time shown is in addition to time spent performing any reported separately billable procedures and includes the following: [x] Data and vital sign review and interpretation [x ] Patient assessment, examination and intervention [x] Medication orders and management [x] Patient/Family updates as able [x] Care Coordination and Documentation. Diagnoses Acute respiratory failure with hypoxia and hypercapnia J96.01; J96.02 COPD exacerbation J44.1 NSTEMI (non-ST elevated myocardial infarction) I21.4
--- NOTE | 2024-05-09 14:35 | PC.NURSE ---
Patent was asked if they would sign the consent form so that Doctor Rocha could proceed with the procedure. The patient denied to giving consent until family was here. This nurse has attempted to call family multiple times but the numbers on the contact list all that they are disconnected.
[2024-05-09] MEDS: propofol 1,000 MG/100 ML INJ 19.6 MG IV (16:02)
--- NOTE | 2024-05-09 19:06 | PC.NURSE ---
-Patient's number is
[2024-05-09] MEDS: enoxaparin 80 mg/0.8 mL Syringe SUBCUT (19:52)
[2024-05-09] MEDS: metoprolol tartrate 25 mg Tablet PO (20:26)
[2024-05-09] MEDS: fentaNYL 1,000 MCG/100 ML BAG 12.5 MCG IV (20:27)
--- NOTE | 2024-05-09 20:28 | PC.NURSE ---
IV fentanyl bag empty at 2026 bag replaced. Jackscrew Worker aware of replacement and empty bag noted. Charge Tatum RN
[2024-05-09] MEDS: propofol 1,000 MG/100 ML INJ 14.7 MG IV (22:35)
[2024-05-10] VITALS (94 sets, daily range): BP systolic 79–152; BP diastolic 45–88; PULSE 56–94; RESP 13–19; TEMP 36.6–37; O2SAT 93–98
[2024-05-10] MEDS: ipratropium-albuterol 3 mL Neb INHALATION ×6 (00:04→19:57)
--- NOTE | 2024-05-10 01:20 | PC.NURSE ---
6 Beat run Ventricular tachycardia noted at 0114, vitals stable. Patient sedated on propofol and fentanyl. labs this am wnl. Dr. Thomas updated new order recieved for magnesium level. No futher incidence of vt at this time
[2024-05-10] MEDS: methylPREDNISolone sod succ 40 mg/mL INJ IVP ×2 (01:46→10:03)
[2024-05-10] MEDS: sodium chloride 0.9% 1,000 ML 60 ML IV ×2 (02:10→19:08)
[2024-05-10 03:27] LABS: Hematocrit 33.1 % (36-47); Lymphocytes # 0.4 10^3/uL (0.8-4.8); Lymphocytes % 8.5 %; Mean Corpuscular HGB Conc 32.9 g/dL (30-55); Mean Platelet Volume 10.3 fL (7.4-10.4); Monocytes # 0.1 10^3/uL (0.2-0.9); Monocytes % 3.1 %; Neutrophils # 3.91 10^3/uL (1.8-7.7); Nucleated Red Blood Cells % 0 %; Platelet Count 146 10^3/cmm (157-399); Red Blood Count 3.52 10^6/uL (3.85-5.65); Red Cell Distribution Width 13.6 % (12.1-15.1); White Blood Count 4.45 10^3/uL (3.29-11.43)
[2024-05-10 03:54] LABS: Alanine Aminotransferase 16 U/L (0-33); Alkaline Phosphatase 46 U/L (35-105); Anion Gap 14.2 (5-19); Aspartate Amino Transferase 22 U/L (0-32); Blood Urea Nitrogen 56 mg/dL (6-20); Calcium 8.1 mg/dL (8.5-10.5); Carbon Dioxide 27 mmol/L (22-29); Chloride 104 mmol/L (98-107); Creatinine Clr Calc Pharmacy 35.6364; Globulin 2.2 g/dL (1.3-4.6); Glomerular Filtration Rate 26.3 mL/min (90-130); Glucose 122 mg/dL (65-115); Osmolality Calculated 309 mOsm/kg (285-295); Potassium 4.2 mmol/L (3.5-5.1); Sodium 141 mmol/L (136-145); Total Bilirubin 0.2 mg/dL (0.15-1.2); Total Protein 5.2 g/dL (6.6-8.7)
[2024-05-10 03:55] LABS: Magnesium 2.8 mg/dL (1.7-2.3)
[2024-05-10] MEDS: cefTRIAXone 1,000 mg SDV 1000 MG IVP (04:05)
[2024-05-10] MEDS: azithromycin 500 MG in sodium chloride 0.9% 250 ML 250 MG IV (04:05)
[2024-05-10] MEDS: pantoprazole 40 mg SDV IVP ×2 (04:06→15:08)
[2024-05-10 04:27] LABS: ABG PCO2 44.8 mmHg (35-45); Arterial Blood Gas Hematocrit 35.9 % (37-47); Base Excess ABG 2.2 mmol/L (-2.0-2.0); Blood Gas Allen Test Pos; Blood Gas Sample Type Arterial; HCO3 ABG 27.5 mmol/L (22-26); PO2 ABG 76.1 mmHg (80.0-100.0)
[2024-05-10 04:28] LABS: Blood Gas Operator Identificat ED; Blood Gas Sample Site Radial, left; Blood Gas Tidal Volume 0.45; Oxygen Device VENT; PO2 FiO2 Ratio Arterial Blood 169
[2024-05-10] MEDS: propofol 1,000 MG/100 ML INJ 14.7 MG IV ×3 (04:44→17:30)
[2024-05-10] MEDS: fentaNYL 1,000 MCG/100 ML BAG 10 MCG IV ×2 (04:46→15:08)
--- NOTE | 2024-05-10 04:50 | PC.NURSE ---
Addendum entered by Tatum Portillo RN 05/10/24 04:52: witnessed waste of fentanyl Original Note: Wasted 7.333 ml fentanyl when changing out drip.
--- NOTE | 2024-05-10 07:00 | XRR_ITS ---
PROCEDURE INFORMATION: Exam: XR Chest Exam date and time: 05/10/2024 7:12 AM Age: 49 years old Clinical indication: Condition or disease; Lung condition and disease; Respiratory failure; Status not specified; Additional info: Resp failure TECHNIQUE: Imaging protocol: Radiologic exam of the chest. Views: 1 view. COMPARISON: CT angio chest PE protcl [id number] 05/07/2024 3:29 AM FINDINGS: Tubes, catheters and devices: Endotracheal tube projects 4.5 cm from the [place]. Enteric tube traverses midline, side fenestration is subdiaphragmatic about the level of the gastroesophageal junction, catheter tip not within field of view. Right internal jugular central venous catheter with tip overlying the right atrium. Lungs: Interval increase in basilar airspace infiltration from prior comparison. Central air bronchograms noted at the left lung field. Pleural spaces: Interval increase in veil like opacities of the bilateral costophrenic angles. Heart/Mediastinum: Unremarkable. No cardiomegaly. Bones/joints: Unremarkable. XR/XR chest 1V portable [id number] IMPRESSION: 1. Medical devices as above, recommend advancement of the enteric tube. 2. Increasing bilateral pleural effusions and likely associated atelectasis, however somewhat consolidative appearance of the left lower lobe suggest possible evolving infection. Correlate clinically.
[2024-05-10] MEDS: budesonide 0.5 mg/2 mL Neb INHALATION ×2 (08:24→19:57)
[2024-05-10] MEDS: aspirin 81 mg EC Tablet PO (10:03)
[2024-05-10] MEDS: metoprolol tartrate 25 mg Tablet PO ×2 (10:03→20:58)
[2024-05-10] MEDS: enoxaparin 80 mg/0.8 mL Syringe SUBCUT (12:10)
--- NOTE | 2024-05-10 12:50 | P.PN_ITS ---
Subjective 2 Subjective: Sedated on ventilator. Does, wake with stimulation. Medications: Reviewed: Yes Vitals/I&O/Wt Last Vital Signs Temp 97.8 F 05/10/24 10:30 Pulse 72 05/10/24 12:00 Resp 14 05/10/24 11:28 BP 131/68 05/10/24 12:00 Pulse Ox 97 05/10/24 12:00 O2 Del Method Mechanical Ventilation 05/10/24 12:00 FiO2 45 05/10/24 12:00 05/09/24 05/10/24 05/10/24 22:59 06:59 14:59 Intake Total 247.670 / 6397.150 8460.072 / 2804.188 100 / 100 Output Total 550 / 785 625 / 1410 450 / 450 Balance -302.330 / 629.116 765.072 / 1394.188 -350 / -350 Weight last 48 hrs Weight 90 kg Weight 84.085 kg Physical Exam 2 Narrative: General Exam sedated on vent, settings reviewed Neck is supple Cardiovascular regular rhythm Lungs clear no wheezing Abdomen is soft, bowel sounds noted Extremities no cyanosis, or edema Urinary Catheter Management: Osorio: Cath Placed During This Visit: yes Reason for Continuing Indwelling Catheter: Accurate Measurement of Urinary Output in Critically Ill Patients Urinary Catheter Date of Insertion: 05/07/24 Urinary Catheter Time of Insertion: 04:21 Data 05/10/24 02:45 05/10/24 02:45 Micro: Microbiology 05/07/24 04:27 Gram Stain - Final Sputum - Endotracheal Tube Aspirate Sputum Culture - Preliminary Streptococcus pneumoniae A&P Assessment and plan (1) Acute respiratory failure with hypoxia and hypercapnia: (2) COPD exacerbation: (3) NSTEMI (non-ST elevated myocardial infarction): Plan Acute hypoxic hypercarbic respiratory failure: No cuff leak. ENT recommends surgery, tracheostomy, evaluation for what is causing narrowing in neck. Family is now been reached. Surgery will occur today or tomorrow. Overall, FiO2 requirement has decreased to 45%. Propofol and fentanyl for sedation Unable to extubate until concerns of airway narrowing are reviewed and tracheostomy placed Acute COPD exacerbation. Reduce IV steroids. Continue pulmonary toilet Concern of pneumonia. Continue ceftriaxone and azithromycin. Discontinue azithromycin as has completed 3 days Left paraglottic swelling. Concern of possible left vocal cord paralysis. Suspect mass. ENT recommends tracheostomy, evaluation in the OR, likely biopsy Acute diastolic CHF. Currently euvolemic Acute kidney injury. Improved. No evidence of obstruction on renal ultrasound Non-ST elevation myocardial infarction. Likely type II. No PE on CTA. Continue aspirin, statin, beta-yi. Has had little over 48 hours of full dose anticoagulation. Changed to DVT prophylaxis. echo shows preserved EF, no wall motion abnormalities -Full code -Lovenox for DVT prophylaxis Protonix for GI prophylaxis Attestations 2 Medical Necessity Statement*: Needs continued hospitalization for definitive evaluation of upper airway narrowing with tracheostomy, laryngoscopy Critical Care Time: The high probability of a clinically significant, sudden or life threatening deterioration of the patient's [respiratory, infectious disease, renal] s ystem(s) required my full and direct attention, intervention and personal management. The critical care time is as shown. This time is in addition to time spent performing any reported procedures but includes the following: [x] Data and vital sign review and interpretation [x] Patient assessment, examination and intervention [x] Documentation [x] Medication orders and management Critical Care Time (min): 41 Coding Level of Care Code Critical Care >/= 30 minutes Critical care time (in minutes): 41 The high probability of a clinically significant, sudden or life threatening deterioration, as referenced in this documentation, required my full and direct attention, intervention and personal management. The critical care time shown is in addition to time spent performing any reported separately billable procedures and includes the following: [x] Data and vital sign review and interpretation [x ] Patient assessment, examination and intervention [x] Medication orders and management [x] Patient/Family updates as able [x] Care Coordination and Documentation. Diagnoses Acute respiratory failure with hypoxia and hypercapnia J96.01; J96.02 COPD exacerbation J44.1 NSTEMI (non-ST elevated myocardial infarction) I21.4
--- NOTE | 2024-05-10 13:51 | XR_ITS ---
WS: [id number] Portable AP upright chest, 05/10/2024, 1434 hours Clinical Data: Post PICC insertion Comparison: Portable chest, 05/10/2024, 0715 hours Findings: The right PICC line enters the superior vena cava and ends at the caval atrial junction. No pneumothorax is seen. The remainder of the tubes remain in the same position. The heart and lungs sh ow no change from before. XR/XR chest 1V portable [id number] Impression: Satisfactory insertion of right PICC line.
--- NOTE | 2024-05-10 14:46 | PC.NURSE ---
Patient's took the patient's ring home.
--- NOTE | 2024-05-10 15:01 | PC.NURSE ---
Doctor Jose wanted to wait to pull the Right IJ central line until surgery.
--- NOTE | 2024-05-10 15:06 | PICC.NOTE ---
Triple lumen PICC placed to right brachial vein. Referred to vascular access nurse for PICC placement due to need for right IJ to be removed and continued need for central access. Risks and benefits discussed and informed consent obtained from pt spouse. Right arm assessed with right brachial vein measuring 3.9 mm, straight, and apparent best choice for placement. Using sterile technique and MST, right brachial vein accessed x 1 stick. Mid-arm circumference measured 10 cm from right AC 30 cm. Trimmed cath 45 cm with 1 cm external length noted. CXR shows tip in cavoatrial junction, in good position for use per radiologist. Line secured with stat-lock. Insertion site covered with Biopatch and TSM. Report given to bedside nurse, Anand, RN.
--- NOTE | 2024-05-10 20:27 | P.PN_ITS ---
Subjective 2 Subjective: no new complaints Medications: Reviewed: Yes Vitals/I&O/Wt Last Vital Signs Temp 98.5 F 05/10/24 18:15 Pulse 64 05/10/24 20:00 Resp 14 05/10/24 20:00 BP 131/74 05/10/24 18:15 Pulse Ox 93 05/10/24 20:00 O2 Del Method Mechanical Ventilation 05/10/24 20:00 FiO2 40 05/10/24 20:00 05/10/24 05/10/24 05/10/24 06:59 14:59 22:59 Intake Total 1390.072 / 2804.188 200 / 200 1079.625 / 1279.625 Output Total 625 / 1410 450 / 450 350 / 800 Balance 765.072 / 1394.188 -250 / -250 729.625 / 479.625 Weight last 48 hrs Weight 90 kg Weight 84.085 kg Physical Exam 2 Narrative: Patient is intubated Urinary Catheter Management: Osorio: Cath Placed During This Visit: yes Reason for Continuing Indwelling Catheter: Accurate Measurement of Urinary Output in Critically Ill Patients Urinary Catheter Date of Insertion: 05/07/24 Urinary Catheter Time of Insertion: 04:21 Data 05/10/24 02:45 05/10/24 02:45 Micro: Microbiology 05/07/24 04:27 Gram Stain - Final Sputum - Endotracheal Tube Aspirate Sputum Culture - Preliminary Streptococcus pneumoniae A&P Assessment and plan (1) CKD (chronic kidney disease): (2) RADHA (acute kidney injury): 1. Acute on chronic kidney disease stage III: Baseline creatinine in the mid 2 range. Etiology likely ATN in the setting of possible sepsis. Patient oliguric, electrolytes stable, intubated, not on pressors. Received IV contrast on 05/07. - started patient on normal saline at 60 cc/h , -Renally dose medications for GFR less than 15 - renal fxn stable currently , no indication for hD , 2. Acute respiratory failure, multifactorial in the setting of CHF, COPD and concern for swelling in the para Glottic space, ENT following, plan for trach , 3. NSTEMI, 4. History of CHF, off diuretics currently Patient evaluated using audiovisual cart. Time spent 40 minutes. Attestations 2 Medical Necessity Statement*: per medicine Coding Level of Care Code Acute Code for Chg Fwd Diagnoses CKD (chronic kidney disease) N18.9 RADHA (acute kidney injury) N17.9
[2024-05-10] MEDS: atorvastatin 40 mg Tablet PO (20:58)
[2024-05-10] MEDS: propofol 1,000 MG/100 ML INJ 17.15 MG IV (23:58)
[2024-05-11] VITALS (56 sets, daily range): BP systolic 113–164; BP diastolic 55–104; PULSE 58–86; RESP 14–15; TEMP 36.4–37; O2SAT 91–100; BMI 33.3
[2024-05-11] MEDS: ipratropium-albuterol 3 mL Neb INHALATION ×7 (00:06→23:54)
[2024-05-11] MEDS: fentaNYL 1,000 MCG/100 ML BAG 10 MCG IV ×3 (01:39→19:06)
[2024-05-11] MEDS: chlorhexidine gluconate 4% Btl 118 mL 1 APPLIC TOPICAL (01:42)
[2024-05-11] MEDS: pantoprazole 40 mg SDV IVP ×2 (03:40→18:11)
[2024-05-11] MEDS: cefTRIAXone 1,000 mg SDV 1000 MG IVP (03:40)
[2024-05-11 04:58] LABS: Hematocrit 34.5 % (36-47); Lymphocytes # 0.6 10^3/uL (0.8-4.8); Lymphocytes % 15.1 %; Mean Corpuscular HGB Conc 31.6 g/dL (30-55); Mean Corpuscular Hemoglobin 30.6 pg (27-33); Mean Corpuscular Volume 96.9 fl (85-98); Mean Platelet Volume 10.7 fL (7.4-10.4); Monocytes # 0.3 10^3/uL (0.2-0.9); Monocytes % 7.6 %; Neutrophils # 3.13 10^3/uL (1.8-7.7); Neutrophils % 76.3 %; Nucleated Red Blood Cells % 0 %; Platelet Count 152 10^3/cmm (157-399); Red Blood Count 3.56 10^6/uL (3.85-5.65); Red Cell Distribution Width 13.6 % (12.1-15.1)
[2024-05-11 05:14] LABS: Alanine Aminotransferase 17 U/L (0-33); Albumin Level 2.9 g/dL (3.5-5.2); Alkaline Phosphatase 40 U/L (35-105); Anion Gap 12.4 (5-19); Aspartate Amino Transferase 22 U/L (0-32); Blood Urea Nitrogen 48 mg/dL (6-20); Calcium 8.3 mg/dL (8.5-10.5); Carbon Dioxide 27 mmol/L (22-29); Chloride 110 mmol/L (98-107); Creatinine Clr Calc Pharmacy 52.6848; Globulin 2.2 g/dL (1.3-4.6); Glomerular Filtration Rate 39.6 mL/min (90-130); Glucose 97 mg/dL (65-115); Magnesium 2.8 mg/dL (1.7-2.3); Osmolality Calculated 313 mOsm/kg (285-295); Potassium 4.4 mmol/L (3.5-5.1); Sodium 145 mmol/L (136-145); Total Bilirubin 0.2 mg/dL (0.15-1.2); Total Protein 5.1 g/dL (6.6-8.7)
[2024-05-11] MEDS: methylPREDNISolone sod succ 40 mg/mL INJ IVP (06:39)
--- NOTE | 2024-05-11 07:44 | P.PN_ITS ---
Documented by User: AZALEA Szymanski STDMAGDALENE 05/11/24 12:37 Subjective 2 Subjective: Patient is doing well. She is responsive to stimulus and to questions. Patient can open eyes, shake head or write on paper to answer questions. Plan to receive trach on tomorrow and will check ABGs and CXR tomorrow as well. Vitals/I&O/Wt Last Vital Signs Temp 98.2 F 05/11/24 04:00 Pulse 62 05/11/24 06:00 Resp 14 05/11/24 04:00 BP 120/67 05/11/24 06:00 Pulse Ox 94 05/11/24 06:00 O2 Del Method Mechanical Ventilation 05/11/24 06:00 FiO2 40 05/11/24 07:33 05/10/24 05/11/24 05/11/24 22:59 06:59 14:59 Intake Total 1129.625 / 1329.625 446.775 / 1776.400 Output Total 350 / 800 650 / 1450 Balance 779.625 / 529.625 -203.225 / 326.400 Weight last 48 hrs Weight 200 lb 9.93 oz Weight 198 lb 6.656 oz Physical Exam 2 Const: OTHER: Sedated on ventilator. Responsive to stimulus and answers questions. Neck/C-Spine: OTHER: Supple Resp: OTHER: Normal breath sounds bilaterally. Clear to auscultation. Bilateral equal chest expansion. Cardio: OTHER: Normal rate and rhythm without murmurs, gallops, or rubs. GI: OTHER: Soft, nondistended with normal bowel sounds. : OTHER: Catheter noted. Extremity: NARRATIVE EXTREMITY EXAM: No edema or cyanosis bilaterally. Urinary Catheter Management: Osorio: Cath Placed During This Visit: yes Reason for Continuing Indwelling Catheter: Accurate Measurement of Urinary Output in Critically Ill Patients Urinary Catheter Date of Insertion: 05/07/24 Urinary Catheter Time of Insertion: 04:21 Data 05/11/24 04:05 05/11/24 04:05 Micro: Microbiology 05/07/24 04:27 Gram Stain - Final Sputum - Endotracheal Tube Aspirate Sputum Culture - Preliminary Streptococcus pneumoniae A&P Assessment and plan (1) Acute respiratory failure with hypoxia and hypercapnia: ENT is scheduled to o tracheostomy tomorrow, with evaluation/biopsy of possible neck mass. FiO2 requirements decreased to 40% PEEP of 6 On Propofol and Fentanyl for sedation (2) NSTEMI (non-ST elevated myocardial infarction): Likely type II. No PE on CT. Continue aspirin, statin, beta-yi. Lovenox for DVT prophylaxis. (3) COPD exacerbation: Continue pulmonary toilet. Continue IV steroids. Continue ceftriaxone for possible pneumonia Plan -Full code -Check ABGs and do CXR tomorrow Coding Level of Care Code Critical Care >/= 30 minutes Diagnoses Acute respiratory failure with hypoxia and hypercapnia J96.01; J96.02 NSTEMI (non-ST elevated myocardial infarction) I21.4 COPD exacerbation J44.1 Documented by User: Rell Garcia MD 05/11/24 13:02 Subjective 2 Subjective: Patient is doing well. She is responsive to stimulus and to questions. Patient can open eyes, shake head or write on paper to answer questions. Plan to receive trach tomorrow and will check ABGs and CXR tomorrow as well. Medications: Reviewed: Yes Physical Exam 2 Urinary Catheter Management: Osorio: Cath Placed During This Visit: yes Data 05/11/24 04:05 05/11/24 04:05 A&P Assessment and plan (1) Acute respiratory failure with hypoxia and hypercapnia: ENT is scheduled to o tracheostomy tomorrow, with evaluation/biopsy of possible neck mass. FiO2 requirements decreased to 40% PEEP of 6 On Propofol and Fentanyl for sedation Cannot consider extubation until evaluation of neck mass. No cuff leak when balloon is taken down. (2) NSTEMI (non-ST elevated myocardial infarction): (3) COPD exacerbation: Continue pulmonary toilet. Continue IV steroids. Continue ceftriaxone for possible pneumonia Strep pneumonia, cultures from the sputum. Plan -Full code -Check ABGs and do CXR tomorrow I was called back down to the ICU, later in the afternoon where an EKG was being done secondary to abnormality in the rhythm on the monitor. ST elevation was noted. ST elevation alert was called and patient is going to angiogram lab for possible intervention. I called and talked to her family, sister being available to inform. Attestations 2 Medical Necessity Statement*: Needs continued hospitalization for neck mass, requiring investigation with biopsy, tracheostomy tomorrow. Critical Care Time: The high probability of a clinically significant, sudden or life threatening deterioration of the patient's [pulmonary, ENT] system(s) required my full and direct attention, intervention and personal management. The critical care time is as shown. This time is in addition to time spent performing any reported procedures but includes the following: [x] Data and vital sign review and interpretation [x] Patient assessment, examination and intervention [x] Documentation [x] Medication orders and management Critical Care Time (min): 40 Coding Level of Care Code Critical Care >/= 30 minutes Critical care time (in minutes): 40 The high probability of a clinically significant, sudden or life threatening deterioration, as referenced in this documentation, required my full and direct attention, intervention and personal management. The critical care time shown is in addition to time spent performing any reported separately billable procedures and includes the following: [x] Data and vital sign review and interpretation [x ] Patient assessment, examination and intervention [x] Medication orders and management [x] Patient/Family updates as able [x] Care Coordination and Documentation. Diagnoses Acute respiratory failure with hypoxia and hypercapnia J96.01; J96.02 NSTEMI (non-ST elevated myocardial infarction) I21.4 COPD exacerbation J44.1
[2024-05-11] MEDS: budesonide 0.5 mg/2 mL Neb INHALATION ×2 (08:07→19:34)
[2024-05-11] MEDS: aspirin 81 mg EC Tablet PO (10:20)
[2024-05-11] MEDS: metoprolol tartrate 25 mg Tablet PO ×2 (10:20→22:11)
[2024-05-11] MEDS: enoxaparin 40 mg/0.4 mL Syringe SUBCUT (10:20)
[2024-05-11] MEDS: sodium chloride 0.9% 1,000 ML 60 ML IV (11:40)
[2024-05-11] MEDS: propofol 1,000 MG/100 ML INJ 17.15 MG IV ×3 (11:58→19:43)
--- NOTE | 2024-05-11 12:39 | ECG_ITS ---
[facility] Test Date: 2024-05-11 Pat Name: Yamileth Feliciano Department: Room: [facility] Gender: Female [employer] [employer]: : 1975 Requested By: Rell Macario Order Number: [id number] Temo MD: Bradley Balderas M.D. Measurements Intervals Sherrill Rate: 51 P: 0 CT: 0 QRS: 59 QRSD: 124 T: 94 QT: 447 QTc: 414 Interpretive Statements SINUS BRADYCARDIA WITH 2ND DEGREE AV BLOCK, 2:1 OR MOBITZ TYPE II MODERATE INTRAVENTRICULAR CONDUCTION DELAY [110+ ms QRS DURATION] MARKED ST ELEVATION, CONSIDER INFERIOR INJURY [MARKED ST ELEVATION W/O NORMALLY INFLECTED T-WAVE IN II/aVF] ACUTE AK INTERPRETATION BASED ON A DEFAULT AGE OF 40 YEARS Compared to ECG 05/07/2024 07:48:12 Intraventricular conduction delay now present Myocardial infarct finding now present Sinus rhythm no longer present Left ventricular hypertrophy no longer present ST (T wave) deviation still present Electronically Signed On 05-11-2024 14:10:58 CDT by Bradley Balderas M.D. [id number]
--- NOTE | 2024-05-11 12:45 | XACV_ITS ---
Exam Room: 2 Ht: 165 cm Wt: 91 kg BSA: 2.07 m2 Gender: Female : 1975 Any Known Allergies: Other Exam Priority: Routine Procedure(s): Procedure Description: Diagnostic procedure Procedure Description: PCI procedure Procedure Description: Drug Eluting Coronary Stent Procedure Description: PTCA Procedure Description: Miscellaneous Procedure Description: ACT Procedure Description: Coronary Angiography Zunilda HAIR; Diagnostic Cath Status: Emergency Diagnostic Findings * Very sharp left main almost separate ostium without significant stenosis. * RCA has luminal irregularities it is a dominant vessel. * Second Obtuse Marginal Branch Segment: severe 90% stenosis, TANIA: 2 flow. It is very small caliber diffusely diseased vessel not amenable to intervention . * Mid Left Anterior Descending: moderate 50% stenosis, TANIA: 3 flow. * Mid Circumflex to Distal Circumflex: significant 80% stenosis, TANIA: 3 flow. * 1st Diagonal: moderate 50% stenosis, TANIA: 3 flow. * Coronary angiography shows right dominance. PCI Status: Emergency PCI Indication: Immediate PCI for STEMI Interventional Findings * Mid Circumflex to Distal Circumflex: 80% stenosis treated with a Drug Eluting Stent. 0% residual stenosis, TANIA: 3 flow. Conclusions 1. There is significant coronary artery disease with two vessel disease. 2. Mid Circumflex to Distal Circumflex was treated with a Drug Eluting Stent. Recommendations * 1-Return to inpatient for close monitoring and routine cath care 2-Risk factor modification for secondary prevention 3-Statin and aspirin 81 mg life-long, if tolerated 4-Patient was pre-loaded with 600 mg of Plavix, continue Plavix 75mg p.o. daily for at least one year. We will assess at the end of one year again to continue if further or not 5-Continue optimal medical management 6-Follow up with Dr. Mauro in four weeks and your primary care in 10 days . Diagnostic RX Recommendation: PCI w/o planned CABG Left Ventriculography Findings: * Not performed due to renal failure. Pressures Phase:Rest AO : 150 / 63 ( 78 ) @ 2:07:00 PM 134 / 82 ( 106 ) @ 2:27:00 PM 129 / 75 ( 98 ) @ 2:36:00 PM 133 / 48 ( 84 ) @ 2:36:00 PM LV : 144 / -10 / 13 @ 2:36:00 PM 142 / -9 / 14 @ 2:36:00 PM Valves Phase:DefaultPhase AV : 11.0 @ 1:56:35 PM AV Mean Gradient: 17.0 @ 1:56:35 PM Clinical Evaluation EBL: 5mL-10mL Procedural Details Pre-Procedure Time Out. Identified patient by full name and date of as verbalized by the patient/guarantor. Does the consent match the physician's order: N/A Emergent; Informed Consent not obtained due to time critical life threat. Accurate & Complete Informed Consent: N/A Emergent; Informed Consent not obtained due to time critical life threat. Inpatient/Outpatient History & Physical on Chart: N/A Emergent; Informed Consent not obtained due to time critical life threat. If H&P is completed, is and addenduem needed: N/A Emergent; Informed Consent not obtained due to time critical life threat; If yes, is the addendum complete: N/A Emergent; Informed Consent not obtained due to time critical life threat. Visualize and Verify Site with Patient/Guarantor: N/A. Relevant Radiology Images available: N/A Emergent; Informed Consent not obtained due to time critical life threat. Pre-op teaching completed and patient verbalized understanding. The risks, benefits, and alternatives of sedation and/or procedure were discussed by physician. The patient agrees to continue. Procedure started. [facility] Clinical Fraility Score: 6: Moderately Frail. Instrument And Controls Technician Indications: ACS <= 24 hours. Chest Pain Symptom Assessment: Typical Angina Symptoms. Cardiovascular Instability: Yes, if yes, Persistant Ischemic Symptoms. Correct patient, site and procedure confirmed by cath team. Current diagnosis: STEMI. Patient arrived to slab depiler operator on a ventilator and will be managed by respiratiory. Osorio cath in place on arrival to the slab depiler operator draining clear, yellow UOP. IV Fluids: 0.9% NaCl at KVO. 0 mL infused prior to slab depiler operator. Baseline sample Acquired. HR: 70 BPM. Physician notified. Patient's family unavailable. Equipment: 6F - Femoral. Cardiac Cath Pack. ACIST Manifold Kit Model BT 2000. Heparinized Saline (2 units/mL), 1000 mL bag. Kit, Micropuncture. Physician arrived. IV Site on Arrival: 20 gauge in the left upper arm. Right IJTL in place. Right upper arm PICC line in place. Pre Procedural Pulses: bilateral dorsalis pedis was Doppled. Pre Procedural Pulses: bilateral posterior tibial was Doppled. bilateral groins was prepped with chloroprep then draped in the usual sterile fashion. OG tube in place. Immediate Pre-Procedure Time Out. Correct Patient: N/A Emergent; Informed Consent not obtained due to time critical life threat; Correct Procedure: N/A Emergent; Informed Consent not obtained due to time critical life threat; Correct Site: N/A Emergent; Informed Consent not obtained due to time critical life threat; Correct Patient Position: N/A Emergent; Informed Consent not obtained due to time critical life threat; Correct Supplies: N/A Emergent; Informed Consent not obtained due to time critical life threat; Dried Flammable Prep: N/A Emergent; Informed Consent not obtained due to time critical life threat; Blood Products Available: N/A Emergent; Informed Consent not obtained due to time critical life threat;. Lidocaine 1% infiltrated to the right groin. Propofol 40mcg/kg/min and Fentanyl 100mcg/hr on arrival to the slab depiler operator. Arterial access obtained with micropuncture set. 6 tanzanian JR 4 guide catheter was inserted over the wire. Cineography of the RCA performed. 6 tanzanian XB 3.5 guide catheter was inserted over the wire. Multiple views taken of left coronary artery. Runthrough guidewire was advanced through the guide catheter to lesion in the OM. #2Runthrough guidewire was advanced through the guide catheter to lesion in the mid Circ. OM wire removed. Inflation number : 1 A AB TREK 2.50X12 RX BALLOON was prepped and advanced across the Mid CX , then inflated to 12 EVELYN for 0:15 seconds. Balloon out. Inflation Number : 2 A MDT R RUSS 3.0X18 CARMELO -Lot Number# [id number] was prepped and advanced across the Mid CX. The stent was deployed at 12 EVELYN for 0:19 seconds. Exp 2026-05-19. Stent balloon out over wire. Inflation number : 3 A MDT NC EUPHORA RX [id number] BALLOON was prepped and advanced across the Mid CX , then inflated to 12 EVELYN for 0:23 seconds. Inflation number: 4 The MDT NC EUPHORA RX [id number] BALLOON was reinflated across the Mid CX, to 14 EVELYN for 0:24 seconds. Balloon out. Wire out. A 5 tanzanian Angled Pig catheter in over wire. EDP Sample taken: LV 144/-11,13; HR: 77 BPM; SpO2: 98%. Pullback taken: LV 142/-10,14; AO 129/75(98); Mean: 17mmHg, Peak to Peak: 11mmHg, SEP: 9sec/min; HR: 77 BPM; SpO2: 100%. Catheter removed over the standard wire. A Right femoral angiogram was performed to determine safe placement of closure device. Dr. Mauro scrubbed out. A Suture was successful obtaining hemostatsis at the Right Femoral artery insertion site. Arterial sheath flushed and connected to tranducer and pressure bag with heparinized saline. Post Procedure: Pulses reassessed and unchanged. No VTE prophylaxis required. Medication's Wasted: Lidocaine 1% = 13 mL. Medication's Wasted: Nitro = 49.8 mg. Medication's Wasted: Heparin = 4000 units. Total IV fluids: 60 mL. PCI Indication: STEMI. Post-op diagnosis: PCI of the Mid CX. Complications: none. Estimated blood loss: 5mL-10mL. Responsiveness - Remains intubated and sedated per ICU nurse. Airway - Intubated and managed by respiratory therapy. Circulation: W/N/L, pulses unchanged. Nausea/Vomiting: No. PCI Indication : Immediate PCI for STEMI. Procedure completed. Patient transferred by bed to ICU. Vital chart was stopped. Access Site Site: Right Femoral artery Sheath Size: 6 Fr Hemostasis Method: Suture Hemostasis Success: Successful Procedure Medications Start: 1:09 PM Stop: 1:09 PM Medication: Lovenox (Enoxaparin) Amount: 40 mg Route: S.Q. Start: 1:27 PM Stop: 1:27 PM Medication: Nitrogylcerin Amount: 200 mcg Route: I.C. I, the attending physician, have reviewed and verified all procedure medications. Yes, all medications given per verbal order Report Signatures Finalized by Natalia Mauro MD on 05/12/2024 11:28 PM
[2024-05-11] MEDS: clopidogrel 300 mg Tablet 600 MG PO ×2 (12:48→14:29)
--- NOTE | 2024-05-11 12:52 | W.PM.OPSUD ---
Surgery/Procedure H&P Update DATE OF PROCEDURE: May 11, 2024 DATE H&P PERFORMED: 01/12/24 H&P UPDATE INFORMATION: I have reviewed H&P completed within last 30 days, I have examined patient prior to procedure and No changes to prior documentation PREOP DIAGNOSIS: ST elevation MO PLANNED PROCEDURE: Operation Date: 05/12/24 16:00 Proposed Procedures p Tracheostomy(Not Applicable) - Henrik Rocha MD s Direct Laryngoscopy(Not Applicable) - Henrik Rocha MD AIRWAY EVAL/ANESTHESIA PLAN: ASA III, Risks, benefits & alternatives of sedation and/or procedure discussed and Patient agrees to continue as planned (Patient is intubated, family contacted, Dr. Garcia and myself concerning the STEMI is in the emergency will proceed with ST elevation MO)
--- NOTE | 2024-05-11 13:52 | P.CONIM_ITS ---
Providers/Reason For Consult 2 Consulting Physician/Specialty*: Natalia Mauro MD/interventional cardiac Reason for Consult*: ST elevation OK Requesting Physician: Dr. Rell Garcia Attending Physician: Rell Garcia MD Primary Care Provider: GUY Garcia History of Present Illness History of Present Illness Yamileth Feliciano is a 49 year old female past medical history significant for nonobstructive coronary artery disease, COPD hypertension hyperlipidemia chronic kidney disease CHF history of meth amphetamine abuse for respiratory distress possibly secondary to paraglottic swelling got intubated, she was noted to have ST elevation on the monitor twelve-lead EKG confirmed inferior wall ST elevation reciprocal changes, STEMI pager was activated patient was immediately taken to the Tool Machine Set Up Operator noted to have mid hazy 90% circumflex and obtuse marginal 2 small caliber subtotally occluded vessel not amenable to intervention, mid circumflex was thought to be culprit, it was treated with balloon angioplasty followed by drug-eluting stent, patient was loaded with 600 Plavix she was already on Lovenox, 40 mg of Lovenox was added to make it therapeutic. Patient tolerated procedure well and transferred back to the ICU Review of Systems 2 General: Reports: 10 or more systems reviewed and unremarkable except in HPI and below and ROS unobtainable due to endotracheal tube Narrative: Cannot obtain full ROS assessment Eyes: Denies: photophobia ENMT: Denies: enlarged tonsils All/Imm: Denies: acute wheezing Medications/Allergies Home Medications Medication Instructions Recorded Confirmed Last Taken Type aspirin 81 mg tablet,delayed 81 mg PO DAILY #30 tabs 01/15/24 05/08/24 Unknown Rx release nicotine 14 mg/24 hr daily 1 patch transdermal DAILY #14 ea 01/15/24 05/08/24 Unknown Rx transdermal patch nicotine 21 mg/24 hr daily 1 patch transdermal DAILY #36 ea 01/15/24 05/08/24 Unknown Rx transdermal patch nicotine 7 mg/24 hr daily 1 patch transdermal DAILY #14 ea 01/15/24 05/08/24 Unknown Rx transdermal patch amlodipine 10 mg tablet 10 mg PO DAILY #90 tabs 02/15/24 05/08/24 Unknown Rx atorvastatin 40 mg tablet 40 mg PO BEDTIME #90 tabs 02/15/24 05/08/24 Unknown Rx metoprolol tartrate 25 mg tablet 25 mg PO BID@0900,2100 #180 tabs 02/15/24 05/08/24 Unknown Rx albuterol sulfate 90 mcg/actuation 2 inh inhalation Q6H PRN shortness 03/10/24 05/08/24 Unknown Rx aerosol inhaler of breath or wheezing #1 pump hydralazine 50 mg tablet See Rx Instructions .Route 03/28/24 05/08/24 Unknown Rx .COMPLEX #90 tabs albuterol sulfate 2.5 mg/3 mL 2.5 mg (3 mL) inhalation Q4H PRN 04/12/24 05/08/24 Unknown Rx (0.083 %) solution for nebulization shortness of breath or wheezing #90 mL budesonide 0.5 mg/2 mL suspension 0.5 mg inhalation BID PRN 05/08/24 05/08/24 Unknown History for nebulization Shortness Of Breath Allergies Allergy/AdvReac Type Severity Reaction Status Date / Time hydromorphone [From Dilaudid] Allergy ADR-Migrain Verified 03/10/24 17:29 e Current Medications Generic Name Dose Route Start Last Admin Trade Name Freq PRN Reason Stop Dose Admin Albuterol/Ipratropium 3 ml 05/07/24 04:00 05/11/24 11:27 Ipratropium-Albuterol 3 Ml Neb INHALATION 3 ml Q4H.RESPIRATORY PARDEEP Administration Aspirin 81 mg 05/07/24 09:00 05/11/24 10:20 Aspirin 81 Mg Ec Tablet PO 81 mg DAILY PARDEEP Administration Atorvastatin Calcium 40 mg 05/07/24 21:00 05/10/24 20:58 Atorvastatin 40 Mg Tablet PO 40 mg BEDTIME PARDEEP Administration Budesonide 0.5 mg 05/07/24 08:00 05/11/24 08:07 Budesonide 0.5 Mg/2 Ml Neb INHALATION 0.5 mg BID.RESPIRATORY PARDEEP Administration Ceftriaxone Sodium 1,000 mg 05/07/24 03:57 05/11/24 03:40 Ceftriaxone 1,000 Mg Sdv IVP 1,000 mg Q24H PARDEEP Administration Protocol Chlorhexidine Gluconate 1 applic 05/11/24 00:00 05/11/24 10:11 Chlorhexidine Gluconate 4% Btl 118 Ml TOPICAL Not Given DAILY PARDEEP Enoxaparin Sodium 40 mg 05/11/24 10:00 05/11/24 10:20 Enoxaparin 40 Mg/0.4 Ml Syringe SUBCUT 40 mg Q24H PARDEEP Administration Propofol 1,000 mg in 100 mls @ 0 mls/hr 05/07/24 01:15 05/10/24 23:58 Diprivan IV 35 mcg/kg/min .Q0M PARDEEP 17.15 mls/hr Administration Protocol Per Protocol Sodium Chloride 1,000 mls @ 60 mls/hr 05/08/24 18:00 05/11/24 11:40 Sodium Chloride 0.9% IV 60 mls/hr .[id number] PARDEEP Administration Fentanyl 1,000 mcg in 100 mls @ 0 mls/hr 05/11/24 01:30 05/11/24 10:40 Sublimaze IV 100 mcg/hr .Q0M PARDEEP 10 mls/hr Administration Protocol Per Protocol Methylprednisolone Sodium Succinate 40 mg 05/11/24 07:00 05/11/24 06:39 Methylprednisolone Sod Succ 40 Mg/Ml Inj IVP 40 mg Q24H PARDEEP Administration Metoprolol Tartrate 25 mg 05/07/24 15:15 05/11/24 10:20 Metoprolol Tartrate 25 Mg Tablet PO 25 mg BID@0900,2100 PARDEEP Administration Pantoprazole Sodium 40 mg 05/07/24 03:57 05/11/24 03:40 Pantoprazole 40 Mg Sdv IVP 40 mg Q12H PARDEEP Administration PFSH Acute 2 PFSH: Medical History COPD (chronic obstructive pulmonary disease) CKD (chronic kidney disease) Diastolic heart failure Hypertension Coronary artery disease Coronary angiogram from 01/13 showed moderate disease in LCx and LAD?negative on IFR Abnormal stress test Cannabis use disorder, mild, abuse Amphetamine use disorder, severe, dependence Bipolar disorder in full remission Bipolar disorder Social History Smoking and tobacco/nicotine status: current every day tobacco/nicotine user cigarettes Packs smoked per day: 1.5 Years cigarettes smoked: 30 Quit status (tobacco/nicotine): not considering quitting Second hand smoke exposure: Yes Current gender identity: Female Vitals/I&O/Wt Last Vital Signs Temp 98.2 F 05/11/24 04:00 Pulse 61 05/11/24 11:28 Resp 14 05/11/24 13:00 BP 126/70 05/11/24 10:30 Pulse Ox 97 05/11/24 13:00 O2 Del Method Mechanical Ventilation 05/11/24 11:28 FiO2 100 05/11/24 13:00 05/10/24 05/11/24 05/11/24 22:59 06:59 14:59 Intake Total 1129.625 / 1329.625 446.775 / 2355.943 3554.167 / 1082.167 Output Total 350 / 800 650 / 1450 Balance 779.625 / 529.625 -203.225 / 548.436 3653.167 / 1082.167 Weight last 48 hrs Weight 200 lb 9.93 oz Weight 198 lb 6.656 oz Physical Exam 2 Const: OTHER: GENERAL: Patient is intubated and sedated HEART: Regular S1 and S2. No murmur, rub or gallop. LUNGS: Clear to auscultate bilaterally. CENTRAL NERVOUS SYSTEM: Grossly nonfocal. EXTREMITIES: Lower extremities with out edema bilaterally. Urinary Catheter Management: Osorio: Cath Placed During This Visit: yes Reason for Continuing Indwelling Catheter: Accurate Measurement of Urinary Output in Critically Ill Patients Urinary Catheter Date of Insertion: 05/07/24 Urinary Catheter Time of Insertion: 04:21 Data 05/11/24 04:05 05/11/24 04:05 Micro: Microbiology 05/07/24 04:27 Gram Stain - Final Sputum - Endotracheal Tube Aspirate Sputum Culture - Preliminary Streptococcus pneumoniae A&P Assessment and plan (1) STEMI (ST elevation myocardial infarction): Status post drug-eluting stent to mid circumflex, small caliber obtuse marginal 2 subtotally occluded not amenable to intervention thought to be managed medically, LV gram was not obtained due to chronic kidney disease and in order to reduce contrast, LVEDP was low 13 mmHg. Continue aspirin and statin add beta-yi continue Plavix 75 mg once a day (2) COPD exacerbation: As per medicine (3) Acute respiratory failure with hypoxia and hypercapnia: Management as per medicine (4) Hypertensive urgency: Will controlled with nitro drip (5) Amphetamine use disorder, severe, dependence: Continue to monitor (6) CKD (chronic kidney disease): As per nephrology, continue IV fluid 100 mL/h Coding Level of Care Code Acute Code for [facility] Diagnoses STEMI (ST elevation myocardial infarction) I21.3 COPD exacerbation J44.1 Acute respiratory failure with hypoxia and hypercapnia J96.01; J96.02 Hypertensive urgency I16.0 Amphetamine use disorder, severe, dependence F15.20 CKD (chronic kidney disease) N18.9
--- NOTE | 2024-05-11 13:59 | P.PN_ITS ---
Subjective 2 Medications: Reviewed: Yes Vitals/I&O/Wt Last Vital Signs Temp 98.2 F 05/11/24 04:00 Pulse 61 05/11/24 11:28 Resp 14 05/11/24 13:00 BP 126/70 05/11/24 10:30 Pulse Ox 97 05/11/24 13:00 O2 Del Method Mechanical Ventilation 05/11/24 11:28 FiO2 100 05/11/24 13:00 05/10/24 05/11/24 05/11/24 22:59 06:59 14:59 Intake Total 1129.625 / 1329.625 446.775 / 5244.185 2596.167 / 1082.167 Output Total 350 / 800 650 / 1450 Balance 779.625 / 529.625 -203.225 / 061.166 3035.167 / 1082.167 Weight last 48 hrs Weight 91 kg Weight 90 kg Physical Exam 2 Narrative: Patient is intubated sedated Urinary Catheter Management: Osorio: Cath Placed During This Visit: yes Reason for Continuing Indwelling Catheter: Accurate Measurement of Urinary Output in Critically Ill Patients Urinary Catheter Date of Insertion: 05/07/24 Urinary Catheter Time of Insertion: 04:21 Data 05/11/24 04:05 05/11/24 04:05 Micro: Microbiology 05/07/24 04:27 Gram Stain - Final Sputum - Endotracheal Tube Aspirate Sputum Culture - Preliminary Streptococcus pneumoniae A&P Assessment and plan (1) CKD (chronic kidney disease): (2) RADHA (acute kidney injury): 1. Acute on chronic kidney disease stage III: Baseline creatinine in the mid 2 range. Etiology likely ATN in the setting of possible sepsis. Patient oliguric, electrolytes stable, intubated, not on pressors. Received IV contrast on 05/07. - started patient on normal saline at 60 cc/h , -Renally dose medications for GFR less than 15 - renal fxn stable currently , no indication for hD , 2. Acute respiratory failure, multifactorial in the setting of CHF, COPD and concern for swelling in the para Glottic space, ENT following, plan for trach , 3. STEMI,- for [facility] today 4. History of CHF, off diuretics currently Patient evaluated using audiovisual cart. Time spent 40 minutes. Attestations 2 Medical Necessity Statement*: per medicine Coding Level of Care Code Acute Code for [facility] Diagnoses CKD (chronic kidney disease) N18.9 RADHA (acute kidney injury) N17.9
--- NOTE | 2024-05-11 14:25 | PC.NURSE ---
Patient had ST elevation on monitor. Dr. Garcia was notified and he ordered to get an EKG. EKG showed ST elevation and STEMI was call overhead. Cath team came with Dr. Weiner. Doctor ordered to give 600mg of plavix and 40 mg of lovenox was given in the animal laboratory helper. Patient was ballooned and stinted. Patient had no hematoma present when they arrived back from animal laboratory helper.
--- NOTE | 2024-05-11 15:29 | PC.NURSE ---
Dr. Mauro ordered to pull sheath 8 hours after the last administration of lovenox which was at 1300.
[2024-05-11 18:03] LABS: Partial Thromboplastin Time 28.7 SECONDS (23.9-36.7)
--- NOTE | 2024-05-11 19:43 | PC.NURSE ---
Bottle of propofol scanned on 05/11 at 0552 scanned but documentation did not save. Propofol bottle scanned now, unable to retime for 0552.
--- NOTE | 2024-05-11 21:35 | ECG_ITS ---
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 Measurements Intervals [place] Rate: 71 P: 61 CA: 146 QRS: 35 QRSD: 119 T: 108 QT: 405 QTc: 442 Interpretive Statements SINUS RHYTHM MODERATE INTRAVENTRICULAR CONDUCTION DELAY [110+ ms QRS DURATION] ST ELEVATION, CONSIDER INFERIOR INJURY [MARKED ST ELEVATION W/O NORMALLY INFLECTED T-WAVE IN II/aVF] ACUTE [place] Compared to ECG 05/11/2024 12:39:23 Sinus bradycardia no longer present ST (T wave) deviation still present Myocardial infarct finding still present Electronically Signed On 05-12-2024 08:38:23 CDT by Jarrell Steiner M.D. [email or web address].[facility].FTBpro/store/[id number]
--- NOTE | 2024-05-11 21:36 | ECG_ITS ---
[facility] Test Date: 2024-05-11 Pat Name: Yamileth Feliciano Department: Room: 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 Measurements Intervals [place] Rate: 64 P: 62 [place]: 150 QRS: 7 QRSD: 101 T: 120 QT: 414 QTc: 430 Interpretive Statements SINUS RHYTHM ST DEVIATION AND MODERATE T-WAVE ABNORMALITY, CONSIDER LATERAL ISCHEMIA [-0.1+ mV T-WAVE IN I/aVL/V5/V6] Compared to ECG 05/11/2024 12:39:23 T-wave abnormality now present Possible ischemia now present Sinus bradycardia no longer present Intraventricular conduction delay no longer present ST (T wave) deviation no longer present Myocardial infarct finding no longer present Electronically Signed On 05-11-2024 22:14:44 CDT by Bradley Balderas M.D. [email or web address].[email or web address]/store/[id number]
[2024-05-11] MEDS: nitroglycerin drip 50 MG/250 ML PREMIX IV (22:12)
[2024-05-11] MEDS: atorvastatin 40 mg Tablet 80 MG PO (22:12)
[2024-05-12] VITALS (53 sets, daily range): BP systolic 97–182; BP diastolic 49–104; PULSE 55–88; RESP 14–16; TEMP 36.8–37; O2SAT 86–99; BMI 33.9
[2024-05-12] MEDS: propofol 1,000 MG/100 ML INJ 17.15 MG IV ×3 (00:37→12:27)
[2024-05-12] MEDS: heparin 5,000 unit/mL INJ 1 mL 5000 UNIT SUBCUT (00:44)
[2024-05-12] MEDS: chlorhexidine gluconate 4% Btl 118 mL 1 APPLIC TOPICAL (02:50)
[2024-05-12] MEDS: ipratropium-albuterol 3 mL Neb INHALATION ×6 (03:38→23:40)
[2024-05-12 03:59] LABS: ABG PCO2 43.4 mmHg (35-45); ABG PH Result 7.37 (7.35-7.45); Arterial Blood Gas Hematocrit 35.9 % (37-47); Base Excess ABG -0.6 mmol/L (-2.0-2.0); Blood Gas Allen Test Pos; Blood Gas Sample Site ARTLINE; Blood Gas Sample Type Arterial; Blood Gas Tidal Volume 0.45; HCO3 ABG 24.9 mmol/L (22-26); Oxygen Device VENT; PO2 ABG 76.9 mmHg (80.0-100.0); PO2 FiO2 Ratio Arterial Blood 192
[2024-05-12] MEDS: fentaNYL 1,000 MCG/100 ML BAG 10 MCG IV ×2 (03:59→13:47)
[2024-05-12] MEDS: pantoprazole 40 mg SDV IVP ×2 (04:01→18:16)
[2024-05-12] MEDS: cefTRIAXone 1,000 mg SDV 1000 MG IVP (04:01)
[2024-05-12 04:08] LABS: Basophils % 0.2 %; Lymphocytes % 22.9 %; Mean Corpuscular HGB Conc 31.1 g/dL (30-55); Mean Corpuscular Hemoglobin 30.2 pg (27-33); Mean Corpuscular Volume 97.1 fl (85-98); Monocytes # 0.3 10^3/uL (0.2-0.9); Monocytes % 7.5 %; Neutrophils # 2.99 10^3/uL (1.8-7.7); Neutrophils % 67.8 %; Nucleated Red Blood Cells % 0.5 %; Platelet Count 166 10^3/cmm (157-399); Red Blood Count 3.81 10^6/uL (3.85-5.65); Red Cell Distribution Width 13.8 % (12.1-15.1); White Blood Count 4.41 10^3/uL (3.29-11.43)
[2024-05-12 04:43] LABS: Alanine Aminotransferase 25 U/L (0-33); Albumin Level 2.9 g/dL (3.5-5.2); Alkaline Phosphatase 46 U/L (35-105); Anion Gap 11.5 (5-19); Aspartate Amino Transferase 28 U/L (0-32); Blood Urea Nitrogen 41 mg/dL (6-20); Calcium 8.3 mg/dL (8.5-10.5); Carbon Dioxide 25 mmol/L (22-29); Chloride 109 mmol/L (98-107); Creatinine Clr Calc Pharmacy 57.0608; Globulin 2.3 g/dL (1.3-4.6); Glomerular Filtration Rate 43.2 mL/min (90-130); Glucose 119 mg/dL (65-115); Osmolality Calculated 303 mOsm/kg (285-295); Potassium 4.5 mmol/L (3.5-5.1); Sodium 141 mmol/L (136-145); Total Bilirubin 0.3 mg/dL (0.15-1.2); Total Protein 5.2 g/dL (6.6-8.7)
[2024-05-12] MEDS: sodium chloride 0.9% 1,000 ML 60 ML IV ×2 (04:45→21:34)
--- NOTE | 2024-05-12 05:22 | PC.NURSE ---
Rhythm changes noted around 2130. EKG done, showed ST elevations. 5 minutes after EKG rhythm returned to normal, follow up EKG done. Dr Mauro notified. New order for nitro drip, ART line and hold off on sheath pull. Dr Mauro at bedside, ordered 5000 units heparin subcutaneous once.
--- NOTE | 2024-05-12 06:01 | PM.PN ---
Subjective Subjective: 49 yo wf intubated and sedated for possible laryngeal airway obstruction/mass/lesion as seen on CT. Of note, the patient had an AR yesterday that was treated with coronary stenting. The paitent is now on anticoagulants. Medications: Reviewed: Yes Vitals/I&O/Wt Last Vital Signs Temp 98.5 F 05/12/24 04:00 Pulse 88 05/12/24 04:30 Resp 14 05/12/24 04:00 BP 126/69 05/12/24 04:30 Pulse Ox 93 05/12/24 04:30 O2 Del Method Mechanical Ventilation 05/12/24 04:00 O2 Flow Rate 45 05/11/24 14:00 FiO2 40 05/12/24 04:00 05/11/24 05/11/24 05/12/24 14:59 22:59 06:59 Intake Total 1082.167 / 1082.167 350 / 8195.344 1017.275 / 3115.442 Output Total 450 / 450 1000 / 1450 Balance 1082.167 / 1082.167 -100 / 982.167 683.275 / 1665.442 Weight last 48 hrs Weight 91 kg Physical Exam Const: GENERAL APPEARANCE: patient mechanically ventilated HENMT: COMMON NORMALS: normocephalic and atraumatic HEAD & SCALP: normocephalic and atraumatic FACE & SINUS: normal facial exam Neck/C-Spine: COMMON NORMALS: no lymphadenopathy GENERAL: Yes normal visual inspection Urinary Catheter Management: Osorio: Cath Placed During This Visit: yes Reason for Continuing Indwelling Catheter: Accurate Measurement of Urinary Output in Critically Ill Patients Urinary Catheter Date of Insertion: 05/07/24 Urinary Catheter Time of Insertion: 04:21 Data 05/12/24 03:40 05/12/24 03:40 Micro: Microbiology 05/07/24 02:25 Blood Culture - Final Blood NO GROWTH AFTER 5 DAYS 05/07/24 02:20 Blood Culture - Final Blood NO GROWTH AFTER 5 DAYS A&P Assessment and plan (1) Hypoxic respiratory failure: Impression: Respiratory failure with suspicious lesion of the larynx on CT Plan: - We have planned for Direct Laryngoscopy and tracheotomy this afternoon to further evaluate the patient's larynx and to secure her airway - We will proceed with surgery if cleared by the Cardiology/Hospitalist team given her recent AR - Recommend holding tube feeds in anticipation of possible surgery Attestations Medical Necessity Statement*: I was consulted to assist in airway management/diagnosis. Coding Level of Care Code Acute Code for [facility] Fwd Diagnoses Hypoxic respiratory failure J96.91
[2024-05-12] MEDS: methylPREDNISolone sod succ 40 mg/mL INJ IVP (06:22)
--- NOTE | 2024-05-12 07:00 | XR_ITS ---
WS: [id number] Portable AP upright chest, 05/12/2024 Clinical Data: resp failure Comparison: Portable chest, 05/10/2024 Findings: The right PICC line, right internal jugular venous catheter, endotracheal tube, nasogastric tube and monitor leads remain in the same position. There are patchy bilateral lower lobe opacities which may represent effusion, atelectasis and possible pneumonia. The upper lobes remain clear. The h eart is slightly enlarged. There are old posterolateral fractures of the right seventh and eighth rib s. XR/XR chest 1V portable [id number] Impression: 1. No change in bibasilar opacities and cardiomegaly. 2. Multiple tubes and lines remain in the same position.
--- NOTE | 2024-05-12 07:15 | ECG_ITS ---
[facility] Test Date: 2024-05-12 Pat Name: Yamileth Feliciano Department: Room: 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 Measurements Intervals [place] Rate: 64 P: 60 CT: 149 QRS: -5 QRSD: 102 T: 113 QT: 424 QTc: 438 Interpretive Statements SINUS RHYTHM ST DEVIATION AND MODERATE T-WAVE ABNORMALITY, CONSIDER LATERAL ISCHEMIA [-0.1+ mV T-WAVE IN I/aVL/V5/V6] Compared to ECG 05/11/2024 21:41:56 No significant changes Electronically Signed On 05-12-2024 10:32:47 CDT by Jarrell Steiner M.D. [email or web address].Mang?[employer]/store/[id number]
--- NOTE | 2024-05-12 07:17 | PM.PN ---
Documented by User: [email or web address] Szymanski STDMAGDALENE 05/12/24 09:52 Subjective Subjective: Patient continued to have coronary spasm over night with EKG showing evidence of lateral ischemia. Nitro was originally given to help with spasms, but was stopped due to low BP concerns. Cardiology is monitoring. Waiting for cardiology clearance for Tracheotomy with laryngoscopy planned today due to recent STEMI yesterday. Feeds were stopped by ENT in preparation for possible surgery. CXR done this morning, has not been read. Vitals/I&O/Wt Last Vital Signs Temp 98.5 F 05/12/24 04:00 Pulse 67 05/12/24 06:00 Resp 14 05/12/24 06:00 BP 106/51 05/12/24 06:00 Pulse Ox 97 05/12/24 06:00 O2 Del Method Mechanical Ventilation 05/12/24 06:00 O2 Flow Rate 45 05/11/24 14:00 FiO2 40 05/12/24 06:00 05/11/24 05/12/24 05/12/24 22:59 06:59 14:59 Intake Total 350 / 4973.102 3749.275 / 3115.442 Output Total 450 / 450 1000 / 1450 Balance -100 / 982.167 683.275 / 1665.442 Weight last 48 hrs Weight 203 lb 14.841 oz Weight 200 lb 9.93 oz Physical Exam Const: OTHER: Sedated on ventilator. Neck/C-Spine: OTHER: Supple Resp: OTHER: auscultation. Bilateral equal chest expansion. Cardio: OTHER: Normal rate and rhythm without murmurs, gallops, or rubs. GI: OTHER: Soft, nondistended with normal bowel sounds. : OTHER: Catheter noted. Extremity: OTHER: No edema or cyanosis bilaterally. Urinary Catheter Management: Osorio: Cath Placed During This Visit: yes Reason for Continuing Indwelling Catheter: Accurate Measurement of Urinary Output in Critically Ill Patients Urinary Catheter Date of Insertion: 05/07/24 Urinary Catheter Time of Insertion: 04:21 Data 05/12/24 03:40 05/12/24 03:40 Micro: Microbiology 05/07/24 02:25 Blood Culture - Final Blood NO GROWTH AFTER 5 DAYS 05/07/24 02:20 Blood Culture - Final Blood NO GROWTH AFTER 5 DAYS A&P Assessment and plan (1) STEMI (ST elevation myocardial infarction): Stent was placed yesterday.Cardiology is monitoring. Nitro was started for coronary spasm, but had to be stopped due to low BP Continue aspirin, statin, beta-yi. Lovenox for DVT prophylaxis. (2) COPD exacerbation: Continue pulmonary toilet. Continue IV steroids. Continue ceftriaxone for possible pneumonia (3) Acute respiratory failure with hypoxia and hypercapnia: ENT is scheduled for tracheostomy today, waiting on clearance by cardiology FiO2 40% PEEP of 6 TV 450 Plan -Full code Coding Level of Care Code Critical Care >/= 30 minutes Diagnoses STEMI (ST elevation myocardial infarction) I21.3 COPD exacerbation J44.1 Acute respiratory failure with hypoxia and hypercapnia J96.01; J96.02 Documented by User: Rell Garcia MD 05/12/24 10:19 Subjective Subjective: Patient continued to have coronary spasm over night with EKG showing evidence of lateral ischemia. Nitro was originally given to help with spasms, but was stopped due to low BP concerns. This has resolved. Cardiology is monitoring. Waiting for cardiology clearance for Tracheotomy with laryngoscopy planned today due to recent STEMI yesterday. Feeds were stopped by ENT in preparation for possible surgery. CXR done this morning, has not been read. Medications: Reviewed: Yes Physical Exam Urinary Catheter Management: Osorio: Cath Placed During This Visit: yes Data 05/12/24 03:40 05/12/24 03:40 A&P Assessment and plan (1) STEMI (ST elevation myocardial infarction): Stent was placed yesterday.Cardiology is monitoring. Nitro was started for coronary spasm, but had to be stopped due to low BP Continue aspirin, statin, beta-yi. Continue Plavix Lovenox for DVT prophylaxis. ABG reviewed. pH 7.37, pCO2 43, pO2 77 on 40% Previous echo demonstrated preserved EF. (2) COPD exacerbation: Continue pulmonary toilet. Continue IV steroids. Continue ceftriaxone for pneumonia. Azithromycin discontinued. Culture showed strep pneumonia Chest x-ray reviewed. Pneumonia noted. Lines okay. (3) Acute respiratory failure with hypoxia and hypercapnia: ENT is scheduled for tracheostomy today, waiting on clearance by cardiology FiO2 40% PEEP of 6 TV 450 Try to wean after tracheostomy Plan Neck mass. ENT plans tracheostomy, biopsy today. Acute kidney injury, resolved Acute diastolic CHF, resolved -Full code Attestations Medical Necessity Statement*: Needs continued hospitalization, close monitoring following ST elevation NV, definitive treatment for upper airway obstruction with tracheostomy, biopsy Critical Care Time: The high probability of a clinically significant, sudden or life threatening deterioration of the patient's [pulmonary, infectious disease, renal, ENT, cardiac] system(s) required my full and direct attention, intervention and personal management. The critical care time is as shown. This time is in addition to time spent performing any reported procedures but includes the following: [x] Data and vital sign review and interpretation [x] Patient assessment, examination and intervention [x] Documentation [x] Medication orders and management Critical Care Time (min): 37 Coding Level of Care Code Critical Care >/= 30 minutes Critical care time (in minutes): 37 The high probability of a clinically significant, sudden or life threatening deterioration, as referenced in this documentation, required my full and direct attention, intervention and personal management. The critical care time shown is in addition to time spent performing any reported separately billable procedures and includes the following: [x] Data and vital sign review and interpretation [x] Patient assessment, examination and intervention [x] Medication orders and management [x] Patient/Family updates as able [x] Care Coordination and Documentation. Diagnoses STEMI (ST elevation myocardial infarction) I21.3 COPD exacerbation J44.1 Acute respiratory failure with hypoxia and hypercapnia J96.01; J96.02
[2024-05-12] MEDS: budesonide 0.5 mg/2 mL Neb INHALATION ×2 (08:09→20:35)
--- NOTE | 2024-05-12 10:03 | P.PN_ITS ---
Subjective 2 Subjective: s/p LHC yesterday , Lcx stent remains on vent no pressors Medications: Reviewed: Yes Vitals/I&O/Wt Last Vital Signs Temp 98.5 F 05/12/24 04:00 Pulse 66 05/12/24 08:30 Resp 14 05/12/24 08:00 BP 106/51 05/12/24 06:00 Pulse Ox 92 05/12/24 08:00 O2 Del Method Mechanical Ventilation 05/12/24 08:00 O2 Flow Rate 45 05/11/24 14:00 FiO2 40 05/12/24 08:00 05/11/24 05/12/24 05/12/24 22:59 06:59 14:59 Intake Total 350 / 8204.251 2635.275 / 3115.442 122.457 / 122.457 Output Total 450 / 450 1000 / 1450 Balance -100 / 982.167 683.275 / 1665.442 122.457 / 122.457 Weight last 48 hrs Weight 92.5 kg Weight 91 kg Physical Exam 2 Narrative: Patient is intubated sedated Urinary Catheter Management: Osorio: Cath Placed During This Visit: yes Reason for Continuing Indwelling Catheter: Accurate Measurement of Urinary Output in Critically Ill Patients Urinary Catheter Date of Insertion: 05/07/24 Urinary Catheter Time of Insertion: 04:21 Data 05/12/24 03:40 05/12/24 03:40 Micro: Microbiology 05/07/24 02:25 Blood Culture - Final Blood NO GROWTH AFTER 5 DAYS 05/07/24 02:20 Blood Culture - Final Blood NO GROWTH AFTER 5 DAYS A&P Assessment and plan (1) CKD (chronic kidney disease): (2) RAHDA (acute kidney injury): 1. Acute on chronic kidney disease stage III: Baseline creatinine in the mid 2 range. Etiology likely ATN in the setting of possible sepsis. Patient oliguric, electrolytes stable, intubated, not on pressors. Received IV contrast on 05/07. - started patient on normal saline at 60 cc/h , -Renally dose medications for GFR less than 15 - renal fxn stable currently , 2. Acute respiratory failure, multifactorial in the setting of CHF, COPD and concern for swelling in the para Glottic space, ENT following,plan for trach plan for trach , 3. STEMI,- for [facility] yesterday , Lcx stent placed 4. History of CHF, off diuretics currently Patient evaluated using audiovisual cart. Time spent 40 minutes. Attestations 2 Medical Necessity Statement*: per jevon Coding Level of Care Code Acute Code for [facility]g Fwd Diagnoses CKD (chronic kidney disease) N18.9 RADHA (acute kidney injury) N17.9
--- NOTE | 2024-05-12 10:44 | PC.NURSE ---
Sheath was pulled at 0915. Hematoma was formed but it was easily dispersed with pressure. No other complications occurred.
[2024-05-12] MEDS: clopidogrel 75 mg Tablet PO (11:05)
[2024-05-12] MEDS: metoprolol tartrate 25 mg Tablet PO (11:06)
[2024-05-12] MEDS: aspirin 81 mg EC Tablet PO (11:34)
--- NOTE | 2024-05-12 11:36 | PM.PN ---
Subjective Subjective: Status post ST elevation NV requiring mid circumflex stent , Coronary spasm was also noted treated with nitroglycerin. Overnight patient had [address] ovation in the inferior leads treated with IV nitroglycerin immediately resolved. Medications: Reviewed: Yes Vitals/I&O/Wt Last Vital Signs Temp 98.6 F 05/12/24 10:30 Pulse 65 05/12/24 11:32 Resp 16 05/12/24 11:32 BP 121/65 05/12/24 10:30 Pulse Ox 92 05/12/24 11:32 O2 Del Method Mechanical Ventilation 05/12/24 11:32 O2 Flow Rate 45 05/11/24 14:00 FiO2 40 05/12/24 11:32 05/11/24 05/12/24 05/12/24 22:59 06:59 14:59 Intake Total 350 / 2104.599 1038.275 / 3115.442 122.457 / 122.457 Output Total 450 / 450 1000 / 1450 300 / 300 Balance -100 / 982.167 683.275 / 1665.442 -177.543 / -177.543 Weight last 48 hrs Weight 203 lb 14.841 oz Weight 200 lb 9.93 oz Physical Exam Const: OTHER: GENERAL: Patient is intubated and sedated HEART: Regular S1 and S2. No murmur, rub or gallop. LUNGS: Clear to auscultate bilaterally. CENTRAL NERVOUS SYSTEM: Grossly nonfocal. EXTREMITIES: Lower extremities with out edema bilaterally. Urinary Catheter Management: Osorio: Cath Placed During This Visit: yes Reason for Continuing Indwelling Catheter: Accurate Measurement of Urinary Output in Critically Ill Patients Urinary Catheter Date of Insertion: 05/07/24 Urinary Catheter Time of Insertion: 04:21 Data 05/12/24 03:40 05/12/24 03:40 Micro: Microbiology 05/07/24 02:25 Blood Culture - Final Blood NO GROWTH AFTER 5 DAYS 05/07/24 02:20 Blood Culture - Final Blood NO GROWTH AFTER 5 DAYS A&P Assessment and plan (1) STEMI (ST elevation myocardial infarction): On today's visit patient remained stable overnight had IV nitroglycerin which was stopped due to hypotension it was given initially because of possible coronary spasm and mild ST elevation. Patient not on any pressor. She is intubated because of respiratory distress, she is scheduled to undergo tracheostomy received, we can stop Lovenox but continue clopidogrel and aspirin 81 mg. Patient can proceed with tracheostomy and under Cris risk for anesthesia and surgery (2) COPD exacerbation: As per medicine (3) Acute respiratory failure with hypoxia and hypercapnia: Management as per medicine (4) Hypertensive urgency: Currently stable and well-controlled continue medicine (5) Amphetamine use disorder, severe, dependence: Continue to monitor (6) CKD (chronic kidney disease): Creatinine remained stable at 1.3, continue monitoring and treatment as per nephrology Attestations Medical Necessity Statement*: Patient require continuation hospitalization for above defined care Coding Level of Care Code [facility] Diagnoses STEMI (ST elevation myocardial infarction) I21.3 COPD exacerbation J44.1 Acute respiratory failure with hypoxia and hypercapnia J96.01; J96.02 Hypertensive urgency I16.0 Amphetamine use disorder, severe, dependence F15.20 CKD (chronic kidney disease) N18.9
--- NOTE | 2024-05-12 11:49 | PC.NURSE ---
Dr. Mauro was called to see what medications needed to be given this morning and which ones can be held until after surgery? Doctor Zunilda ordered to hold lovenox but give aspirin and plavix.
--- NOTE | 2024-05-12 11:59 | PC.NURSE ---
Patient's wanted to talk to case resolution specialist. Creative Services Director was notified. Patient's became irrational and started demanding to talk to the case resolution specialist NOW about the care the patient will receive after tracheotomy. Patient was informed that case resolution specialist was going to talk to them once they got a chance. Patient's told this nurse that they were going to go look for the case resolution specialist which this nurse then told them that security was going to be called if they started to look for a specific person in the hospital. They started to go to the nurse's station and demanding to talk to the case resolution specialist. Nurses tried to verbally de escalate the situation but it did not work and the patient's stalked out of the unit. Nurse manager Fletcher was notified.
--- NOTE | 2024-05-12 12:05 | PC.NURSE ---
Addendum entered by Lakia Ramsey RN 05/12/24 12:27: Justine, clinical admissions manager notified of 's behavior. Original Note: Pt's here in unit. He is anxious, pacing and has rapid speech. He said Joselo mazariegos came and talked to me and she said she was moving there after 24 hours after surgery. I want to talk Case Management. Case management, Chen, notified stated she would be down to talk to him. Pt's informed of this. He continues with the rapid speech, pacing by the nurse's station . He asks Where is she I want to talk to her. I am going to go find her. Multiple staff attempted to reassure him she would be here to speak with him. He continues his rapid speech, pacing and interrupting staff. Tried to explain to him she would be here, she is probably with another patient at this time, so it would be easier for him to stay here and wait for here and not go looking for her and he couldn't go into other rooms. He told us, the staff, to calm down he has a right to be stressed and he wants to talk to her. He was going to go take a smoke and ask around where her office is. Again, staff attempted to discourage that behavior and encourage him to give her( Chen) time to get here.He is behaving more agitated and desperate with his eyes darting around. He stated again I am going for a smoke. I do not have the problem you people do. He rapidly leaves the unit.
--- NOTE | 2024-05-12 12:34 | ANES.PREANE2 ---
Pre-Anesthetic Assessment Height/Weight: Height 5 ft 5 in Weight 203 lb 14.841 oz Temp Pulse Resp BP Pulse Ox O2 Del Method O2 Flow Rate 98.6 F 65 16 121/65 92 Mechanical Ventilation 45 05/12/24 10:30 05/12/24 11:32 05/12/24 11:32 05/12/24 10:30 05/12/24 11:32 05/12/24 11:32 05/11/24 14:00 FiO2 40 05/12/24 11:32 Preop Diagnosis: ST elevation NJ,laryngeal mass Operation Date: 05/11/24 13:00 Proposed Procedures p Cardiac Catheterization(Not Applicable) - Natalia Mauro MD Operation Date: 05/12/24 16:00 Proposed Procedures p Tracheostomy(Not Applicable) - Henrik Rocha MD s Direct Laryngoscopy(Not Applicable) - Henrik Rocha MD Airway Comments: Comments: ETT in place Anesthetic Plan ASA status: 4 Anesthesia: General Other: Patient has no prior issues with anesthesia Initially presented on 05/07 with shortness of breath and was subsequently intubated for respiratory failure Patient has a possible laryngeal airway obstruction/mass on CT Patient had an NJ yesterday and was treated with a CARMELO stent of the left circumflex. Plavix and Lovenox secondary to stent placement. currently off lovenox History of COPD CKD Amphetamine use, severe Echo 05/07 showing EF 60 to 65% with no regional wall abnormalities Labs reviewed 05/12, hemoglobin 11.5, platelet 166 BUN 41, creatinine 1.3 Patient is currently sedated on propofol and fentanyl gtt. Adequate IV access Patient is high risk from an anesthetic standpoint secondary to active anticoagulation and recent NJ with stent placement. is aware and signed consent Plan for general anesthesia Medications/Allergies Home Medications Medication Instructions Recorded Confirmed Last Taken Type aspirin 81 mg tablet,delayed 81 mg PO DAILY #30 tabs 01/15/24 05/08/24 Unknown Rx release nicotine 14 mg/24 hr daily 1 patch transdermal DAILY #14 ea 01/15/24 05/08/24 Unknown Rx transdermal patch nicotine 21 mg/24 hr daily 1 patch transdermal DAILY #36 ea 01/15/24 05/08/24 Unknown Rx transdermal patch nicotine 7 mg/24 hr daily 1 patch transdermal DAILY #14 ea 01/15/24 05/08/24 Unknown Rx transdermal patch amlodipine 10 mg tablet 10 mg PO DAILY #90 tabs 02/15/24 05/08/24 Unknown Rx atorvastatin 40 mg tablet 40 mg PO BEDTIME #90 tabs 02/15/24 05/08/24 Unknown Rx metoprolol tartrate 25 mg tablet 25 mg PO BID@0900,2100 #180 tabs 02/15/24 05/08/24 Unknown Rx albuterol sulfate 90 mcg/actuation 2 inh inhalation Q6H PRN shortness 03/10/24 05/08/24 Unknown Rx aerosol inhaler of breath or wheezing #1 pump hydralazine 50 mg tablet See Rx Instructions .Route 03/28/24 05/08/24 Unknown Rx .COMPLEX #90 tabs albuterol sulfate 2.5 mg/3 mL 2.5 mg (3 mL) inhalation Q4H PRN 04/12/24 05/08/24 Unknown Rx (0.083 %) solution for nebulization shortness of breath or wheezing #90 mL budesonide 0.5 mg/2 mL suspension 0.5 mg inhalation BID PRN 05/08/24 05/08/24 Unknown History for nebulization Shortness Of Breath Allergies Allergy/AdvReac Type Severity Reaction Status Date / Time hydromorphone [From Dilaudid] Allergy ADR-Migrain Verified 03/10/24 17:29 e Current Medications Generic Name Dose Route Start Last Admin Trade Name Freq PRN Reason Stop Dose Admin Albuterol/Ipratropium 3 ml 05/07/24 04:00 05/12/24 11:25 Ipratropium-Albuterol 3 Ml Neb INHALATION 3 ml Q4H.RESPIRATORY PARDEEP Administration Aspirin 81 mg 05/07/24 09:00 05/12/24 11:34 Aspirin 81 Mg Ec Tablet PO 81 mg DAILY PARDEEP Administration Atorvastatin Calcium 80 mg 05/11/24 21:00 05/11/24 22:12 Atorvastatin 40 Mg Tablet PO 80 mg BEDTIME PARDEEP Administration Budesonide 0.5 mg 05/07/24 08:00 05/12/24 08:09 Budesonide 0.5 Mg/2 Ml Neb INHALATION 0.5 mg BID.RESPIRATORY PARDEEP Administration Ceftriaxone Sodium 1,000 mg 05/07/24 03:57 05/12/24 04:01 Ceftriaxone 1,000 Mg Sdv IVP 1,000 mg Q24H PARDEEP Administration Protocol Chlorhexidine Gluconate 1 applic 05/12/24 02:15 05/12/24 02:50 Chlorhexidine Gluconate 4% Btl 118 Ml TOPICAL 1 applic Q24H PARDEEP Administration Clopidogrel Bisulfate 75 mg 05/12/24 09:00 05/12/24 11:05 Clopidogrel 75 Mg Tablet PO 75 mg DAILY PARDEEP Administration Enoxaparin Sodium 40 mg 05/11/24 10:00 05/12/24 11:49 Enoxaparin 40 Mg/0.4 Ml Syringe SUBCUT Not Given Q24H PARDEEP Propofol 1,000 mg in 100 mls @ 0 mls/hr 05/07/24 01:15 05/12/24 12:27 Diprivan IV 35 mcg/kg/min .Q0M PARDEEP 17.15 mls/hr Administration Protocol Per Protocol Sodium Chloride 1,000 mls @ 60 mls/hr 05/08/24 18:00 05/12/24 04:45 Sodium Chloride 0.9% IV 60 mls/hr .[id number] PARDEEP Administration Fentanyl 1,000 mcg in 100 mls @ 0 mls/hr 05/11/24 01:30 05/12/24 09:46 Sublimaze IV 100 mcg/hr .Q0M PARDEEP 10 mls/hr Titration Protocol Per Protocol Nitroglycerin/Dextrose 50 mg in 250 mls @ 0 mls/hr 05/11/24 22:00 05/12/24 05:07 Nitroglycerin Drip IV 0 mcg/min .Q0M PARDEEP 0 mls/hr Titration Protocol Per Protocol Methylprednisolone Sodium Succinate 40 mg 05/11/24 07:00 05/12/24 06:22 Methylprednisolone Sod Succ 40 Mg/Ml Inj IVP 40 mg Q24H PARDEEP Administration Metoprolol Tartrate 25 mg 05/07/24 15:15 05/12/24 11:06 Metoprolol Tartrate 25 Mg Tablet PO 25 mg BID@0900,2100 PARDEEP Administration Pantoprazole Sodium 40 mg 05/07/24 03:57 05/12/24 04:01 Pantoprazole 40 Mg Sdv IVP 40 mg Q12H PARDEEP Administration PFSH Anesthesia Medical History COPD (chronic obstructive pulmonary disease) CKD (chronic kidney disease) Diastolic heart failure Hypertension Coronary artery disease Coronary angiogram from 01/13 showed moderate disease in LCx and LAD?negative on IFR Abnormal stress test Cannabis use disorder, mild, abuse Amphetamine use disorder, severe, dependence Bipolar disorder in full remission Bipolar disorder Social History Smoking and tobacco/nicotine status: current every day tobacco/nicotine user cigarettes Packs smoked per day: 1.5 Years cigarettes smoked: 30 Quit status (tobacco/nicotine): not considering quitting Second hand smoke exposure: Yes Current gender identity: Female Data Anesthesia 05/12/24 03:40 05/12/24 03:40 Short CBC 05/11/24 05/12/24 Range/Units 04:05 03:40 WBC 4.10 4.41 (3.29-11.43) 10^3/uL Hgb 10.90 L 11.50 (11.27-16.99) g/dL Hct 34.5 L 37.0 (36-47) % MCV 96.9 97.1 (85-98) fl Plt Count 152 L 166 (157-399) 10^3/cmm Neut % (Auto) 76.3 67.8 % Neut # (Auto) 3.13 2.99 (1.8-7.7) 10^3/uL BMP 05/11/24 05/12/24 04:05 03:40 Sodium 145 141 Potassium 4.4 4.5 Chloride 110 H 109 H Carbon Dioxide 27 25 BUN 48 H 41 H Creatinine 1.4 H 1.3 H Glucose 97 119 H Calcium 8.3 L 8.3 L Liver Function 05/11/24 05/12/24 Range/Units 04:05 03:40 Total Bilirubin 0.2 0.3 (0.15-1.2) mg/dL AST 22 28 (0-32) U/L ALT 17 25 (0-33) U/L Alkaline Phosphatase 40 46 (35-105) U/L Albumin 2.9 L 2.9 L (3.5-5.2) g/dL Coags 05/11/24 17:29 APTT 28.7 ABG 05/12/24 03:45 Specimen Type Arterial Sample Site Artline ABG pH 7.37 ABG pCO2 43.4 ABG pO2 76.9 L ABG PO2/FiO2 Ratio 192 ABG HCO3 24.9 ABG Base Excess -0.6 O2 Delivery Device Vent O2 Liters/Min 0.0 FiO2 40.0 Tidal Volume 0.45 PEEP 6.0 Microbiology 05/07/24 04:27 Gram Stain - Final Sputum - Endotracheal Tube Aspirate Sputum Culture - Final Streptococcus pneumoniae 05/07/24 02:25 Blood Culture - Final Blood NO GROWTH AFTER 5 DAYS 05/07/24 02:20 Blood Culture - Final Blood NO GROWTH AFTER 5 DAYS Cardiac Studies: Echocardiogram 05/07/24 Echocardiogram Limited Views 04/20/24 Sestamibi Stress Test (Cardiology) 01/11/24
--- NOTE | 2024-05-12 12:43 | PC.NURSE ---
Chen from Manager Of Loss Prevention Operations was in the unit at 12:30 but the patient's was out of the unit.
--- NOTE | 2024-05-12 13:52 | PC.NURSE ---
Blood sugar recheck 72mg/dl. Pt nodded head yes to feeling better. Notified Dr Baer , via secure messaging, of blood sugars and OJ . Orders to consult gum worker for tube feeding type received.
[2024-05-12] MEDS: EPINEPHrine 1 mg/mL INJ XX (15:57)
--- NOTE | 2024-05-12 16:03 | PC.NURSE ---
Patient was taken by surgery team at 1538. No complications occurred while patient was moved out of the unit.
[2024-05-12] MEDS: fluorescein 1 mg Strip XX (16:26)
[2024-05-12] MEDS: lidocaine 2% INJ 20 mL 10 ML INJECTION (16:27)
--- NOTE | 2024-05-12 17:07 | ANE.PACU2 ---
Inpatient post-anesthesia follow up: Airway intact: No Vital signs: Temperature 98.6 F Pulse Rate 65 Respiratory Rate 14 Blood Pressure [Le ft Arm] 141/104 Blood Pressure 121/63 Pulse Oximetry 94 Oxygen Delivery Me thod Mechanical Ventila tion Oxygen Flow Rate 45 Fraction of Inspir ed Oxygen 40 Hydration adequate: Yes Nausea and vomiting: No Pain level: 1 Mental status: Baseline Additional Comments: Trach in place. Patient sedated
--- NOTE | 2024-05-12 17:10 | P.OP_ITS ---
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 extending to the left false vocal cord and left supraglottic larynx - Significant edema and hemorrhage of the left true vocal cord - Endotracheal tube in place - Normal anterior neck exam Procedure done: - Microdirect laryngoscopy with biopsies - Tracheotomy Implants: None Specimens removed/disposition: Left glottic mass Pathology: Left glottic mass Surgeon: Henrik Rocha Surgeon: Henrik Rocha MD Estimated blood loss (mL): 10 IV fluids (mL): 300 Complications: None Findings: - Obstructing, exophytic mass of the left true vocal cord, false vocal cord, and left supraglottic larynx - Edema, swelling, and hemorrhage of the left true vocal cord - Airway obstruction at the level of the glottis secondary to the above - Normal anterior neck exam Brief History: 49 yo wf admitted for respiratory failure requiring intubation. The patient was noted to have a laryngeal mass on CT scan of the neck. Procedure: The patient was identified in the intensive care unit and was taken to the operating room and was placed on the operating table in the supine position. Anesthesia was obtained with general anesthesia, and the table was turned 90 degrees to the patient's left. The patient was prepped and draped in the usual sterile fashion and a moist Ray-John was placed on the patient's maxillary gingiva. The surgical laryngoscope was advanced down the right oral cavity gutter and under direct vision until the larynx came into view. An inspection was then carried out of the patient's larynx with the findings noted above. The patient was placed on suspension and using the 0 degree Hood claribel surgical telescope and cup forceps biopsies were taken of the mass noted on the left side of the larynx. Hemostasis was achieved with direct application of 1:1000 epinephrine on neuro pledgets. Once hemostasis had been achieved this portion of the procedure was terminated and the instrumentation was removed from the patient. The table was turned to the normal position and a sagittal incision was marked out over the cervical trachea just above the sternal notch. The incision was injected with 2% plain lidocaine. The anterior neck was then prepped and draped in the usual sterile fashion. The incision was made with a 15 blade and was carried down through the skin and subcutaneous fat until the strap muscles were identified. The strap muscles were in the avascular midline and were retracted laterally. There was a thick thyroid isthmus present which was dissected free from the underlying trachea and divided in the midline using the harmonic scalpel. With the airway and cricoid cartilage exposed, a trach hook was placed under the cricoid cartilage and the larynx was elevated in the neck. The third tracheal ring was identified and using an 11 blade a window of cartilage was removed from the anterior portion of the third tracheal ring. The indwelling endotracheal tube was then withdrawn slowly and a #6 cuffed tracheotomy tube was placed in the trachea at this point. Correct placement was confirmed with capnography and the instrumentation was t hen withdrawn from the neck. The tracheotomy tube was then sutured in place with 0 Prolene suture on the skin and a neck strap was placed on the patient. At this point the procedure was terminated and control of the patient was returned to anesthesia where she underwent an uneventful reversal of anesthesia and was taken back to the intensive care unit in stable condition. There were no operative or anesthetic complications.
[2024-05-12] MEDS: thrombin 5,000 unit SDV 5000 UNIT XX (17:13)
--- NOTE | 2024-05-12 17:27 | PC.NURSE ---
Patient arrived back to the unit at 1707. Patient is sedated and comfortable.
--- NOTE | 2024-05-12 17:35 | PC.NURSE ---
, Saleem Feliciano, at bedside speaking with Dr Rocha. After wards has multiple questions about [facility], whether when will need chemo and radiation ( Dr Rocha discussed these topics at length with ), will she get to go home, [facility], and previous admissions including her previous transfer to [facility]. Spoke with him at length, reiterated Dr Rocha's answers to him. He stated she almost left [facility], she had locked herself into the chapel and was lured out with soda and ice cream. Then she was given Xanax. They kicked her out the next day Per him he was concerned her COPD made her ' low on oxygen at that time. He then wanted help getting her Social Security filled out. Then he states it has been filled out just waiting on approval, it has already been denied once. It was for her and he then taps on the side of his head implying psychiatric reasons. Discussed with him that no legal/financial things could be done by her until she is no longer on sedative medications. She would need to continue to pursue that , Case management may be able to help or point them in the right direction. Case management will be back on Wednesday and that can be discussed then when/if she is no longer on those medications. He then asks Can I get her medical records? This nurse informed him that the patient could ask for her records after she is discharged as then records will not be ready until then as we are still adding to it. He said' ok. But a supervisor malt house can get them? He repeated this comment several times. I assured him yes.
--- NOTE | 2024-05-12 17:59 | PC.NURSE ---
Right IJ central line was discontinued on 05/12/[address] Garcia orders to wait until after surgery before pulling Right IJ central line. Central line was intact.
[2024-05-12] MEDS: propofol 1,000 MG/100 ML INJ 14.7 MG IV (20:15)
--- NOTE | 2024-05-12 21:31 | PC.NURSE ---
Pt had surgery today and was given paralytics. Bowel sounds are hypoactive, but PO metoprolol and lipitor are ordered. Dr. Thomas contacted to see if both could be held tonight. stated to hold PO meds for now. Pt HR 63 and BP 131/81.
[2024-05-12] MEDS: fentaNYL 1,000 MCG/100 ML BAG 15 MCG IV (22:31)
[2024-05-13] VITALS (63 sets, daily range): BP systolic 108–193; BP diastolic 60–109; PULSE 64–117; RESP 9–27; TEMP 36.8–37; O2SAT 5–99
[2024-05-13] MEDS: propofol 1,000 MG/100 ML INJ 19.6 MG IV (01:43)
[2024-05-13] MEDS: ipratropium-albuterol 3 mL Neb INHALATION ×5 (03:33→20:00)
[2024-05-13] MEDS: cefTRIAXone 1,000 mg SDV 1000 MG IVP (03:58)
[2024-05-13] MEDS: pantoprazole 40 mg SDV IVP ×2 (03:58→15:01)
[2024-05-13] MEDS: fentaNYL 1,000 MCG/100 ML BAG 17.5 MCG IV (04:05)
[2024-05-13 04:26] LABS: Basophils % 0.2 %; Hematocrit 33.5 % (36-47); Lymphocytes # 0.5 10^3/uL (0.8-4.8); Lymphocytes % 10.2 %; Mean Corpuscular HGB Conc 31.3 g/dL (30-55); Mean Corpuscular Hemoglobin 30.4 pg (27-33); Mean Corpuscular Volume 97.1 fl (85-98); Mean Platelet Volume 10.4 fL (7.4-10.4); Monocytes # 0.4 10^3/uL (0.2-0.9); Neutrophils # 4.28 10^3/uL (1.8-7.7); Neutrophils % 80.5 %; Nucleated Red Blood Cells % 0 %; Platelet Count 149 10^3/cmm (157-399); Red Blood Count 3.45 10^6/uL (3.85-5.65); Red Cell Distribution Width 13.6 % (12.1-15.1); White Blood Count 5.31 10^3/uL (3.29-11.43)
[2024-05-13 04:48] LABS: Alanine Aminotransferase 27 U/L (0-33); Albumin Level 2.8 g/dL (3.5-5.2); Alkaline Phosphatase 40 U/L (35-105); Anion Gap 11.8 (5-19); Aspartate Amino Transferase 22 U/L (0-32); Blood Urea Nitrogen 35 mg/dL (6-20); Carbon Dioxide 25 mmol/L (22-29); Chloride 110 mmol/L (98-107); Creatinine Clr Calc Pharmacy 68.0086; Globulin 1.9 g/dL (1.3-4.6); Glomerular Filtration Rate 52.4 mL/min (90-130); Glucose 101 mg/dL (65-115); Magnesium 2.3 mg/dL (1.7-2.3); Osmolality Calculated 302 mOsm/kg (285-295); Potassium 4.8 mmol/L (3.5-5.1); Sodium 142 mmol/L (136-145); Total Bilirubin 0.2 mg/dL (0.15-1.2); Total Protein 4.7 g/dL (6.6-8.7)
[2024-05-13] MEDS: propofol 1,000 MG/100 ML INJ 22.05 MG IV (05:55)
[2024-05-13] MEDS: methylPREDNISolone sod succ 40 mg/mL INJ IVP (06:00)
--- NOTE | 2024-05-13 06:39 | PM.PN ---
Subjective Subjective: on vent Medications: Reviewed: Yes Vitals/I&O/Wt Last Vital Signs Temp 97.8 F 05/14/24 04:00 Pulse 59 L 05/14/24 06:30 Resp 12 05/14/24 03:50 BP 170/96 05/14/24 06:30 Pulse Ox 95 05/14/24 06:30 O2 Del Method Mechanical Ventilation 05/14/24 03:49 O2 Flow Rate 35 05/13/24 13:23 FiO2 40 05/14/24 03:50 05/13/24 05/13/24 05/14/24 14:59 22:59 06:59 Intake Total 1132.987 / 1132.987 5.471 / 1138.458 586 / 1724.458 Output Total 1000 / 1000 1000 / 2000 Balance 1132.987 / 1132.987 -994.529 / 138.458 -414 / -275.542 Weight last 48 hrs Weight 91.5 kg Weight 97 kg Physical Exam Narrative: Patient is intubated sedated Urinary Catheter Management: Osorio: Cath Placed During This Visit: yes Reason for Continuing Indwelling Catheter: Accurate Measurement of Urinary Output in Critically Ill Patients Urinary Catheter Date of Insertion: 05/07/24 Urinary Catheter Time of Insertion: 04:21 Data 05/14/24 04:21 05/14/24 04:21 A&P Assessment and plan (1) CKD (chronic kidney disease): (2) RADHA (acute kidney injury): 1. Acute on chronic kidney disease stage III: Baseline creatinine in the mid 2 range. Etiology likely ATN in the setting of possible sepsis. Patient oliguric, electrolytes stable, intubated, not on pressors. Received IV contrast on 05/07. - started Tube feeds , will dc ivfS -Renally dose medications for GFR less than 15 - renal fxn stable currently , 2. Acute respiratory failure, multifactorial in the setting of CHF, COPD and concern for swelling in the para Glottic space, ENT following,s/p trach 3. STEMI,- for [facility] yesterday , Lcx stent placed 4. History of CHF, off diuretics currently Patient evaluated using audiovisual cart. Time spent 40 minutes. Attestations Medical Necessity Statement*: per courtneyma Coding Level of Care Code Acute Code for Chg Fwd Diagnoses CKD (chronic kidney disease) N18.9 RADHA (acute kidney injury) N17.9
[2024-05-13] MEDS: budesonide 0.5 mg/2 mL Neb INHALATION ×2 (07:30→20:00)
--- NOTE | 2024-05-13 07:44 | P.PN_ITS ---
Subjective 2 Subjective: 49 yo wf who is POD #1 s/p tracheotomy f or airway obstruction. The patient is doing well from this standpoint. There are no reported issues with her airway. Medications: Reviewed: Yes Vitals/I&O/Wt Last Vital Signs Temp 98.5 F 05/13/24 05:30 Pulse 73 05/13/24 07:30 Resp 16 05/13/24 07:30 BP 140/75 05/13/24 05:30 Pulse Ox 96 05/13/24 07:30 O2 Del Method Mechanical Ventilation 05/13/24 07:30 O2 Flow Rate 93 05/13/24 03:33 FiO2 40 05/13/24 07:30 05/12/24 05/13/24 05/13/24 22:59 06:59 14:59 Intake Total 1515.600 / 1715.600 282.484 / 1998.084 Output Total 260 / 560 700 / 1260 Balance 1255.600 / 1155.600 -417.516 / 738.084 Weight last 48 hrs Weight 97 kg Weight 92.5 kg Physical Exam 2 Const: GENERAL APPEARANCE: patient mechanically ventilated HENMT: COMMON NORMALS: normocephalic, atraumatic and Normal external nose present HEAD & SCALP: normocephalic and atraumatic FACE & SINUS: normal facial exam NOSE: Normal external nose present Neck/C-Spine: GENERAL: Yes tracheostomy present (Trach site without erythema or swelling.) Urinary Catheter Management: Osorio: Cath Placed During This Visit: yes Reason for Continuing Indwelling Catheter: Accurate Measurement of Urinary Output in Critically Ill Patients Urinary Catheter Date of Insertion: 05/07/24 Urinary Catheter Time of Insertion: 04:21 Data 05/13/24 04:09 05/13/24 04:09 Micro: Microbiology 05/07/24 04:27 Gram Stain - Final Sputum - Endotracheal Tube Aspirate Sputum Culture - Final Streptococcus pneumoniae A&P Assessment and plan (1) Hypoxic respiratory failure: Impression: POD #1 s/p tracheotomy doing well from this standpoint Plan: - Trach care - First trach change on POD 5-7 (2) Laryngeal mass: Impression: 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 Coding Level of Care Code Acute Code for Chg Fwd Diagnoses Hypoxic respiratory failure J96.91 Laryngeal mass J38.7
[2024-05-13] MEDS: predniSONE 20 mg Tablet 40 MG OG-TUBE (08:14)
[2024-05-13] MEDS: clopidogrel 75 mg Tablet PO (08:14)
[2024-05-13] MEDS: aspirin 81 mg EC Tablet PO (08:14)
[2024-05-13] MEDS: metoprolol tartrate 25 mg Tablet PO (08:14)
[2024-05-13] MEDS: enoxaparin 40 mg/0.4 mL Syringe SUBCUT (09:16)
[2024-05-13] MEDS: FUROsemide 10 mg/mL SDV 4mL 40 MG IVP (09:16)
--- NOTE | 2024-05-13 09:29 | PC.NURSE ---
tube feeding started per order, Dr Palacios called and iv fluid stopped lasix given per order at this time weaning sedation to awaken pt and wean vent
--- NOTE | 2024-05-13 10:38 | P.PN_ITS ---
Subjective 2 Subjective: Sedated on the ventilator this morning. Had tracheostomy yesterday. No new concerns overnight. Medications: Reviewed: Yes Vitals/I&O/Wt Last Vital Signs Temp 98.5 F 05/13/24 05:30 Pulse 72 05/13/24 08:00 Resp 9 L 05/13/24 09:49 BP 123/65 05/13/24 08:00 Pulse Ox 95 05/13/24 09:49 O2 Del Method Mechanical Ventilation 05/13/24 07:30 O2 Flow Rate 93 05/13/24 03:33 FiO2 40 05/13/24 09:49 05/12/24 05/13/24 05/13/24 22:59 06:59 14:59 Intake Total 1515.600 / 1715.600 282.484 / 1998.084 132.987 / 132.987 Output Total 260 / 560 700 / 1260 Balance 1255.600 / 1155.600 -417.516 / 738.084 132.987 / 132.987 Weight last 48 hrs Weight 97 kg Weight 92.5 kg Physical Exam 2 Narrative: General Exam sedated on vent, settings reviewed, tracheostomy noted Neck is supple Cardiovascular regular rhythm Lungs clear no wheezing Abdomen is soft, bowel sounds noted Extremities no cyanosis, or edema Urinary Catheter Management: Osorio: Cath Placed During This Visit: yes Reason for Continuing Indwelling Catheter: Accurate Measurement of Urinary Output in Critically Ill Patients Urinary Catheter Date of Insertion: 05/07/24 Urinary Catheter Time of Insertion: 04:21 Data 05/13/24 04:09 05/13/24 04:09 Micro: Microbiology 05/07/24 04:27 Gram Stain - Final Sputum - Endotracheal Tube Aspirate Sputum Culture - Final Streptococcus pneumoniae A&P Assessment and plan (1) STEMI (ST elevation myocardial infarction): Stent was placed 05/11, drug-eluting Nitro was started for coronary spasm following procedure, but not discontinued Continue aspirin, statin, beta-yi. Continue Plavix Lovenox for DVT prophylaxis. Previous echo demonstrated preserved EF. (2) COPD exacerbation: Continue pulmonary toilet. Steroids changed to p.o. Continue ceftriaxone for pneumonia. Azithromycin discontinued. Culture showed strep pneumonia (3) Acute respiratory failure with hypoxia and hypercapnia: Postoperative day #1 status post trach Wean vent, hopefully be able to put on trach shield Stop sedation that is continuous, initiate PRNs of morphine, Ativan Plan Neck mass. See above, biopsy occurred with time of tracheostomy. Mass noted. Acute kidney injury, resolved Acute diastolic CHF, resolved -Full code Nutrition, tube feeds initiated Full code Lovenox for DVT prophylaxis PICC line for access Attestations 2 Medical Necessity Statement*: Needs continued hospital stay secondary to respiratory failure secondary to neck mass, non-ST elevation myocardial infarction status post drug-eluting stent Critical Care Time: The high probability of a clinically significant, sudden or life threatening deterioration of the patient's [pulmonary, cardiac, infectious] system(s) required my full and direct attention, intervention and personal management. The critical care time is as shown. This time is in addition to time spent performing any reported procedures but includes the following: [x] Data and vital sign review and interpretation [x] Patient assessment, examination and intervention [x] Documentation [x] Medication orders and management Critical Care Time (min): 35 Coding Level of Care Code Critical Care >/= 30 minutes Critical care time (in minutes): 35 The high probability of a clinically significant, sudden or life threatening deterioration, as referenced in this documentation, required my full and direct attention, intervention and personal management. The critical care time shown is in addition to time spent performing any reported separately billable procedures and includes the following: [x] Data and vital sign review and interpretation [x ] Patient assessment, examination and intervention [x] Medication orders and management [x] Patient/Family updates as able [x] Care Coordination and Documentation. Diagnoses STEMI (ST elevation myocardial infarction) I21.3 COPD exacerbation J44.1 Acute respiratory failure with hypoxia and hypercapnia J96.01; J96.02
[2024-05-13] MEDS: LORazepam 2 mg/mL INJ 1 mL 0.5 MG IVP ×3 (10:54→21:55)
--- NOTE | 2024-05-13 11:49 | PC.NURSE ---
weaned off sedation ativan given at this time very tearful and emotional at this time . urine output increased at this time
[2024-05-13] MEDS: isosorbide mononitrate ER 30 mg Tablet PO (12:35)
--- NOTE | 2024-05-13 16:45 | P.PN_ITS ---
Subjective 2 Subjective: Status post tracheostomy extubated sitting in the bed overall feeling better cannot talk trying to write No chest pain no ST elevation Medications: Reviewed: Yes Vitals/I&O/Wt Last Vital Signs Temp 98.5 F 05/13/24 05:30 Pulse 117 H 05/13/24 16:00 Resp 18 05/13/24 15:43 BP 187/101 05/13/24 16:00 Pulse Ox 86 L 05/13/24 16:00 O2 Del Method Mechanical Ventilation 05/13/24 15:42 O2 Flow Rate 35 05/13/24 13:23 FiO2 40 05/13/24 15:43 05/13/24 05/13/24 05/13/24 06:59 14:59 22:59 Intake Total 282.484 / 4761.074 7266.987 / 1132.987 Output Total 700 / 1260 Balance -417.516 / 213.184 1092.987 / 1132.987 Weight last 48 hrs Weight 213 lb 13.574 oz Weight 203 lb 14.841 oz Physical Exam 2 Const: OTHER: GENERAL: Alert awake oriented sitting in the bed extubated with tracheostomy in place HEART: Regular S1 and S2. No murmur, rub or gallop. LUNGS: Clear to auscultate bilaterally. CENTRAL NERVOUS SYSTEM: Grossly nonfocal. EXTREMITIES: Lower extremities with out edema bilaterally. Urinary Catheter Management: Osorio: Cath Placed During This Visit: yes Reason for Continuing Indwelling Catheter: Accurate Measurement of Urinary Output in Critically Ill Patients Urinary Catheter Date of Insertion: 05/07/24 Urinary Catheter Time of Insertion: 04:21 Data 05/14/24 04:21 05/14/24 04:21 Micro: Microbiology 05/07/24 04:27 Gram Stain - Final Sputum - Endotracheal Tube Aspirate Sputum Culture - Final Streptococcus pneumoniae A&P Assessment and plan (1) STEMI (ST elevation myocardial infarction): Continue aspirin and statin beta-yi add isosorbide mononitrate continue clopidogrel (2) COPD exacerbation: As per medicine (3) Acute respiratory failure with hypoxia and hypercapnia: Status post tracheostomy, treatment as per medicine and surgery (4) Hypertensive urgency: Currently stable and well-controlled continue medicine (5) Amphetamine use disorder, severe, dependence: Continue to monitor (6) CKD (chronic kidney disease): Continues to improve, treatment as per nephrology Attestations 2 Medical Necessity Statement*: Patient require continuation hospitalization for above defined care Coding Level of Care Code Acute Code for Chg Fwd Diagnoses STEMI (ST elevation myocardial infarction) I21.3 COPD exacerbation J44.1 Acute respiratory failure with hypoxia and hypercapnia J96.01; J96.02 Hypertensive urgency I16.0 Amphetamine use disorder, severe, dependence F15.20 CKD (chronic kidney disease) N18.9
[2024-05-13] MEDS: carvedilol 6.25 mg Tablet PO ×2 (17:43→18:47)
[2024-05-13] MEDS: lanolin oint 7 gm 1 APPLIC TOPICAL (17:43)
[2024-05-13] MEDS: atorvastatin 40 mg Tablet 80 MG PO (21:55)
[2024-05-14] VITALS (57 sets, daily range): BP systolic 118–200; BP diastolic 80–123; PULSE 59–104; RESP 12–30; TEMP 36.6–37.2; O2SAT 89–98
[2024-05-14] MEDS: ipratropium-albuterol 3 mL Neb INHALATION ×6 (00:06→20:40)
[2024-05-14] MEDS: chlorhexidine gluconate 4% Btl 118 mL 1 APPLIC TOPICAL (04:17)
[2024-05-14] MEDS: cefTRIAXone 1,000 mg SDV 1000 MG IVP (04:17)
[2024-05-14] MEDS: pantoprazole 40 mg SDV IVP ×2 (04:17→14:36)
[2024-05-14 04:35] LABS: Basophils % 0.2 %; Eosinophils % 0.2 %; Hematocrit 33.6 % (36-47); Lymphocytes # 1.1 10^3/uL (0.8-4.8); Mean Corpuscular Hemoglobin 30.4 pg (27-33); Mean Corpuscular Volume 98.2 fl (85-98); Mean Platelet Volume 10.4 fL (7.4-10.4); Monocytes # 0.5 10^3/uL (0.2-0.9); Monocytes % 8.4 %; Neutrophils # 4.35 10^3/uL (1.8-7.7); Neutrophils % 71.6 %; Nucleated Red Blood Cells % 0 %; Platelet Count 147 10^3/cmm (157-399); Red Blood Count 3.42 10^6/uL (3.85-5.65); Red Cell Distribution Width 13.5 % (12.1-15.1); White Blood Count 6.07 10^3/uL (3.29-11.43)
[2024-05-14 04:59] LABS: Alanine Aminotransferase 31 U/L (0-33); Albumin Level 2.9 g/dL (3.5-5.2); Alkaline Phosphatase 41 U/L (35-105); Anion Gap 10.9 (5-19); Aspartate Amino Transferase 25 U/L (0-32); Blood Urea Nitrogen 38 mg/dL (6-20); Calcium 8.5 mg/dL (8.5-10.5); Carbon Dioxide 28 mmol/L (22-29); Chloride 111 mmol/L (98-107); Globulin 2.2 g/dL (1.3-4.6); Glomerular Filtration Rate 47.4 mL/min (90-130); Glucose 94 mg/dL (65-115); Magnesium 2.1 mg/dL (1.7-2.3); Osmolality Calculated 311 mOsm/kg (285-295); Potassium 3.9 mmol/L (3.5-5.1); Sodium 146 mmol/L (136-145); Total Bilirubin 0.3 mg/dL (0.15-1.2); Total Protein 5.1 g/dL (6.6-8.7)
[2024-05-14 05:02] LABS: Creatinine Clr Calc Pharmacy 63.9172
[2024-05-14] MEDS: LORazepam 2 mg/mL INJ 1 mL 0.5 MG IVP ×3 (05:26→20:10)
--- NOTE | 2024-05-14 06:47 | P.PN_ITS ---
Subjective 2 Subjective: on vent Medications: Reviewed: Yes Vitals/I&O/Wt Last Vital Signs Temp 97.8 F 05/14/24 04:00 Pulse 59 L 05/14/24 06:30 Resp 12 05/14/24 03:50 BP 170/96 05/14/24 06:30 Pulse Ox 95 05/14/24 06:30 O2 Del Method Mechanical Ventilation 05/14/24 03:49 O2 Flow Rate 35 05/13/24 13:23 FiO2 40 05/14/24 03:50 05/13/24 05/13/24 05/14/24 14:59 22:59 06:59 Intake Total 1132.987 / 1132.987 5.471 / 1138.458 586 / 1724.458 Output Total 1000 / 1000 1000 / 2000 Balance 1132.987 / 1132.987 -994.529 / 138.458 -414 / -275.542 Weight last 48 hrs Weight 91.5 kg Weight 97 kg Physical Exam 2 Narrative: Patient is intubated sedated Urinary Catheter Management: Osorio: Cath Placed During This Visit: yes Reason for Continuing Indwelling Catheter: Accurate Measurement of Urinary Output in Critically Ill Patients Urinary Catheter Date of Insertion: 05/07/24 Urinary Catheter Time of Insertion: 04:21 Data 05/14/24 04:21 05/14/24 04:21 A&P Assessment and plan (1) CKD (chronic kidney disease): (2) RADHA (acute kidney injury): 1. Acute on chronic kidney disease stage III: Baseline creatinine in the mid 2 range. Etiology likely ATN in the setting of possible sepsis. Patient oliguric, electrolytes stable, intubated, not on pressors. Received IV contrast on 05/07. - started Tube feeds , stopped IVFs -Renally dose medications for GFR less than 15 - renal fxn stable currently , 2. Acute respiratory failure, multifactorial in the setting of CHF, COPD and concern for swelling in the para Glottic space, ENT following,s/p trach 3. STEMI,- for [facility] yesterday , Lcx stent placed 4. History of CHF, off diuretics currently 5. hYPERNATREMIA : add free water Patient evaluated using audiovisual cart. Time spent 40 minutes. Attestations 2 Medical Necessity Statement*: per courtneyok Coding Level of Care Code Acute Code for Chg Fwd Diagnoses CKD (chronic kidney disease) N18.9 RADHA (acute kidney injury) N17.9
[2024-05-14] MEDS: predniSONE 20 mg Tablet 40 MG OG-TUBE (07:20)
[2024-05-14] MEDS: carvedilol 6.25 mg Tablet PO (07:20)
[2024-05-14] MEDS: isosorbide mononitrate ER 60 mg Tablet PO (07:21)
[2024-05-14] MEDS: clopidogrel 75 mg Tablet PO (07:21)
[2024-05-14] MEDS: aspirin 81 mg EC Tablet PO (07:21)
--- NOTE | 2024-05-14 07:35 | PC.NURSE ---
am meds given early with ok doctor to treat blood pressure
[2024-05-14] MEDS: budesonide 0.5 mg/2 mL Neb INHALATION ×2 (07:50→20:40)
--- NOTE | 2024-05-14 09:44 | P.PN_ITS ---
Subjective 2 Subjective: No events overnight. Was placed back on the vent. Planning on going to a trach shield today. Sleeping when I entered the room. According to nursing was able to swallow liquids without difficulty yesterday Medications: Reviewed: Yes Vitals/I&O/Wt Last Vital Signs Temp 97.8 F 05/14/24 04:00 Pulse 66 05/14/24 08:00 Resp 12 05/14/24 08:00 BP 149/80 05/14/24 08:00 Pulse Ox 94 05/14/24 08:00 O2 Del Method Mechanical Ventilation 05/14/24 07:51 O2 Flow Rate 35 05/13/24 13:23 FiO2 40 05/14/24 07:53 05/13/24 05/14/24 05/14/24 22:59 06:59 14:59 Intake Total 5.471 / 1138.458 586 / 1724.458 Output Total 1000 / 1000 1000 / 2000 Balance -994.529 / 138.458 -414 / -275.542 Weight last 48 hrs Weight 91.5 kg Weight 97 kg Physical Exam 2 Narrative: General Exam Sleeping when I entered the room Neck is supple, tracheostomy noted Cardiovascular regular rhythm Lungs clear no wheezing Abdomen is soft, bowel sounds noted Extremities no cyanosis, or edema Urinary Catheter Management: Osorio: Cath Placed During This Visit: yes Reason for Continuing Indwelling Catheter: Accurate Measurement of Urinary Output in Critically Ill Patients Urinary Catheter Date of Insertion: 05/07/24 Urinary Catheter Time of Insertion: 04:21 Data 05/14/24 04:21 05/14/24 04:21 A&P Assessment and plan (1) STEMI (ST elevation myocardial infarction): Stent was placed 05/11, drug-eluting Nitro was started for coronary spasm following procedure, and has now been moved to Imdur with increased dose to help hypertension as well. Continue aspirin, statin, beta-yi. Continue Plavix Lovenox for DVT prophylaxis. Previous echo demonstrated preserved EF. (2) COPD exacerbation: Continue pulmonary toilet. No current wheezing, will discontinue steroids Continue ceftriaxone for pneumonia. Azithromycin discontinued. Culture showed strep pneumonia. Has been on ceftriaxone since May 07. (3) Acute respiratory failure with hypoxia and hypercapnia: Postoperative day #2 status post trach Wean vent, hopefully be able to put on trach shield Stop sedation that is continuous, continue PRNs of morphine, Ativan Plan Neck mass. See above, biopsy occurred with time of tracheostomy. Mass noted. Await biopsy results Acute kidney injury, resolved Acute diastolic CHF, resolved -Full code Nutrition, tube feeds initiated. If takes well p.o. will eventually taper off and discontinue Full code Lovenox for DVT prophylaxis PICC line for access PT and OT consults now appropriate Attestations 2 Medical Necessity Statement*: Needs continued hospitalization, status post trach for weaning from the ventilator, determine biopsy results and appropriate follow-up for laryngeal mass Critical Care Time: The high probability of a clinically significant, sudden or life threatening deterioration of the patient's [pulmonary, cardiac, renal] system(s) required my full and direct attention, intervention and personal management. The critical care time is as shown. This time is in addition to time spent performing any reported procedures but includes the following: [x] Data and vital sign review and interpretation [x] Patient assessment, examination and intervention [x] Documentation [x] Medication orders and management Critical Care Time (min): 32 Coding Level of Care Code Critical Care >/= 30 minutes Critical care time (in minutes): 32 The high probability of a clinically significant, sudden or life threatening deterioration, as referenced in this documentation, required my full and direct attention, intervention and personal management. The critical care time shown is in addition to time spent performing any reported separately billable procedures and includes the following: [x] Data and vital sign review and interpretation [x ] Patient assessment, examination and intervention [x] Medication orders and management [x] Patient/Family updates as able [x] Care Coordination and Documentation. Diagnoses STEMI (ST elevation myocardial infarction) I21.3 COPD exacerbation J44.1 Acute respiratory failure with hypoxia and hypercapnia J96.01; J96.02
[2024-05-14] MEDS: enoxaparin 40 mg/0.4 mL Syringe SUBCUT (10:44)
--- NOTE | 2024-05-14 13:16 | PM.PN ---
Subjective Subjective: Feeling much better continuing vent through tracheostomy today is more alert and awake and oriented Medications: Reviewed: Yes Vitals/I&O/Wt Last Vital Signs Temp 97.8 F 05/14/24 04:00 Pulse 87 05/14/24 11:24 Resp 16 05/14/24 11:24 BP 157/89 05/14/24 10:00 Pulse Ox 92 05/14/24 11:24 O2 Del Method HAG, Trach Collar 05/14/24 11:24 O2 Flow Rate 35 05/13/24 13:23 FiO2 35 05/14/24 11:24 05/13/24 05/14/24 05/14/24 22:59 06:59 14:59 Intake Total 5.471 / 1138.458 586 / 1724.458 Output Total 1000 / 1000 1000 / 2000 Balance -994.529 / 138.458 -414 / -275.542 Weight last 48 hrs Weight 201 lb 11.567 oz Weight 213 lb 13.574 oz Physical Exam Const: OTHER: GENERAL: Patient is alert awake oriented sitting in the bed denies any complaint HEART: Regular S1 and S2. No murmur, rub or gallop. LUNGS: Clear to auscultate bilaterally. CENTRAL NERVOUS SYSTEM: Grossly nonfocal. EXTREMITIES: Lower extremities with out edema bilaterally. Urinary Catheter Management: Osorio: Cath Placed During This Visit: yes Reason for Continuing Indwelling Catheter: Accurate Measurement of Urinary Output in Critically Ill Patients Urinary Catheter Date of Insertion: 05/07/24 Urinary Catheter Time of Insertion: 04:21 Data 05/14/24 04:21 05/14/24 04:21 A&P Assessment and plan (1) STEMI (ST elevation myocardial infarction): Will increase beta-yi continue aspirin and statin clopidogrel (2) COPD exacerbation: As per medicine (3) Acute respiratory failure with hypoxia and hypercapnia: Treatment as per medicine, patient is on trach and vent (4) Hypertensive urgency: Increase Coreg to 12.5 mg twice a day, add hydralazine 25 mg 4 times daily (5) Amphetamine use disorder, severe, dependence: Continue to monitor (6) CKD (chronic kidney disease): Treatment as per nephrology started improving renal function Attestations Medical Necessity Statement*: Patient require continuation hospitalization for above defined care Coding Level of Care Code Acute Code for [facility] Fwd Diagnoses STEMI (ST elevation myocardial infarction) I21.3 COPD exacerbation J44.1 Acute respiratory failure with hypoxia and hypercapnia J96.01; J96.02 Hypertensive urgency I16.0 Amphetamine use disorder, severe, dependence F15.20 CKD (chronic kidney disease) N18.9
--- NOTE | 2024-05-14 13:25 | P.PN_ITS ---
Subjective 2 Subjective: 49 yo wf who is POD #2 s/p tracheotomy f or airway obstruction secondary to a laryngeal mass. The patient is doing well. Medications: Reviewed: Yes Vitals/I&O/Wt Last Vital Signs Temp 97.8 F 05/14/24 04:00 Pulse 87 05/14/24 11:24 Resp 16 05/14/24 11:24 BP 157/89 05/14/24 10:00 Pulse Ox 92 05/14/24 11:24 O2 Del Method HAG, Trach Collar 05/14/24 11:24 O2 Flow Rate 35 05/13/24 13:23 FiO2 35 05/14/24 11:24 05/13/24 05/14/24 05/14/24 22:59 06:59 14:59 Intake Total 5.471 / 1138.458 586 / 1724.458 Output Total 1000 / 1000 1000 / 2000 Balance -994.529 / 138.458 -414 / -275.542 Weight last 48 hrs Weight 91.5 kg Weight 97 kg Physical Exam 2 Const: COMMON NORMALS: no acute distress, average body habitus, patient oriented x3 and alert EXAM LIMITATIONS: other limitations (Unable to speak with trach in place. ) HENMT: COMMON NORMALS: normocephalic, atraumatic and Normal external nose present HEAD & SCALP: normocephalic and atraumatic FACE & SINUS: normal facial exam and sinuses nontender NOSE: Normal external nose present and Normal nares present Eye: COMMON NORMALS: Equal, round and reactive pupils present PUPIL: Yes Equal, round and reactive pupils present Neck/C-Spine: COMMON NORMALS: no lymphadenopathy GENERAL: Yes tracheostomy present (Trach site without erythema or discharge. ) Neuro: COMMON NORMALS: patient oriented x3 SENSORIUM/ORIENTATION: Yes alert Urinary Catheter Management: Osorio: Cath Placed During This Visit: yes Reason for Continuing Indwelling Catheter: Accurate Measurement of Urinary Output in Critically Ill Patients Urinary Catheter Date of Insertion: 05/07/24 Urinary Catheter Time of Insertion: 04:21 Data 05/14/24 04:21 05/14/24 04:21 A&P Assessment and plan (1) Laryngeal mass: Impression: POD #2 s/p tracheotomy for an obstructing left transglottic mass Plan: - First trach change on POD #7 - Continue trach care - I will make further recommendations once the path report is available (2) Hypoxic respiratory failure: See the above Attestations 2 Medical Necessity Statement*: I was consulted to assist in airway management. Coding Level of Care Code Acute Code for Chg Fwd Diagnoses Laryngeal mass J38.7 Hypoxic respiratory failure J96.91
--- NOTE | 2024-05-14 15:13 | PC.NURSE ---
son and daughter in for visit mother very receptive to them assisting with her decision in care , dr Rocha explained at length to them in later visit talking with her she became agitated and stressed requested ativan and told me she asked her to leave that he upset her noted blood pressure elevated with visit
[2024-05-14] MEDS: hyDRALAzine 25 mg Tablet PO ×2 (15:34→20:10)
--- NOTE | 2024-05-14 15:40 | PC.NURSE ---
blood pressure remains elevated after left hydrolizine po started early
[2024-05-14] MEDS: carvedilol 12.5 mg Tablet PO (16:40)
[2024-05-14] MEDS: oxyCODONE 5 mg IR Tab/Cap PO (20:09)
[2024-05-14] MEDS: atorvastatin 40 mg Tablet 80 MG PO (20:10)
[2024-05-14] MEDS: hyDRALAzine 20 mg/mL INJ 1 mL 10 MG IVP (22:22)
[2024-05-15] VITALS (63 sets, daily range): BP systolic 94–205; BP diastolic 54–98; PULSE 66–101; RESP 12–32; TEMP 36.6–37.4; O2SAT 77–100
[2024-05-15] MEDS: ipratropium-albuterol 3 mL Neb INHALATION ×7 (00:17→23:50)
[2024-05-15] MEDS: hyDRALAzine 20 mg/mL INJ 1 mL 10 MG IVP (00:41)
[2024-05-15] MEDS: morphine 4 mg/mL SDV 1 mL IVP ×5 (00:41→22:20)
[2024-05-15] MEDS: LORazepam 2 mg/mL INJ 1 mL 0.5 MG IVP ×4 (04:25→22:21)
[2024-05-15] MEDS: cefTRIAXone 1,000 mg SDV 1000 MG IVP (04:25)
[2024-05-15] MEDS: pantoprazole 40 mg SDV IVP ×2 (04:25→17:54)
[2024-05-15] MEDS: nicardipine 20 MG/200 ML PREMIX 50 MG IV (04:26)
[2024-05-15 04:28] LABS: Basophils % 0.1 %; Eosinophils % 0.3 %; Hematocrit 33.1 % (36-47); Lymphocytes # 1.3 10^3/uL (0.8-4.8); Lymphocytes % 17.9 %; Mean Corpuscular HGB Conc 31.7 g/dL (30-55); Mean Corpuscular Hemoglobin 30.5 pg (27-33); Mean Corpuscular Volume 96.2 fl (85-98); Mean Platelet Volume 10.2 fL (7.4-10.4); Monocytes # 0.5 10^3/uL (0.2-0.9); Monocytes % 6.7 %; Neutrophils # 5.51 10^3/uL (1.8-7.7); Neutrophils % 73.4 %; Nucleated Red Blood Cells % 0 %; Platelet Count 151 10^3/cmm (157-399); Red Blood Count 3.44 10^6/uL (3.85-5.65); Red Cell Distribution Width 13.3 % (12.1-15.1)
[2024-05-15 04:58] LABS: Anion Gap 8.8 (5-19); Blood Urea Nitrogen 28 mg/dL (6-20); Calcium 8.4 mg/dL (8.5-10.5); Carbon Dioxide 30 mmol/L (22-29); Chloride 110 mmol/L (98-107); Creatinine Clr Calc Pharmacy 92.9865; Glomerular Filtration Rate 75.6 mL/min (90-130); Glucose 135 mg/dL (65-115); Osmolality Calculated 308 mOsm/kg (285-295); Potassium 3.8 mmol/L (3.5-5.1); Sodium 145 mmol/L (136-145)
[2024-05-15] MEDS: chlorhexidine gluconate 4% Btl 118 mL 1 APPLIC TOPICAL (06:24)
--- NOTE | 2024-05-15 06:40 | P.PN_ITS ---
Documented by User: [email or web address] Szymanski 05/15/24 13:05 Subjective 2 Subjective: Patient is doing well. Patient is alert and can signal or whisper what she needs. Patient can nod her head and write out answers to questions. Patient is able to be on a Venturi Mask with her trach for most of the day, only needing the ventilator at night. Patient does endorse pain with trach that is being managed with morphine and ativan. Systolic BP got up to the 200s last night and received hydralzine 25mg with a subsequent 10mg two more times later before needing to be placed on Nicardipine drip 5mg. Vitals/I&O/Wt Last Vital Signs Temp 99.3 F 05/15/24 06:00 Pulse 90 05/15/24 06:00 Resp 22 H 05/15/24 04:25 BP 149/76 05/15/24 06:00 Pulse Ox 91 05/15/24 06:00 O2 Del Method Mechanical Ventilation, Venturi Mask 05/15/24 04:00 O2 Flow Rate 35 05/13/24 13:23 FiO2 35 05/15/24 04:00 05/14/24 05/14/24 05/15/24 14:59 22:59 06:59 Intake Total 50 / 50 665 / 715 1510.333 / 2225.333 Output Total 600 / 600 650 / 1250 Balance 50 / 50 65 / 115 860.333 / 975.333 Weight last 48 hrs Weight 209 lb 7.026 oz Weight 201 lb 11.567 oz Physical Exam 2 Neck/C-Spine: OTHER: Trach noted. Resp: OTHER: Normal and equal breath sounds. Clear to auscultation. Bilateral chest wall expansion. Cardio: OTHER: Normal rate and rhythm. No murmurs, gallops, or rubs noted. GI: OTHER: Soft, nondistended, nontender with bowel sounds in all quadrants : OTHER: Catheter noted Extremity: OTHER: Bruising on arms likely secondary to previous restraints and current DVT PPX. No edema or cyanosis. Urinary Catheter Management: Osorio: Cath Placed During This Visit: yes Reason for Continuing Indwelling Catheter: Accurate Measurement of Urinary Output in Critically Ill Patients Urinary Catheter Date of Insertion: 05/07/24 Urinary Catheter Time of Insertion: 04:21 Data 05/15/24 03:50 05/15/24 03:50 A&P Assessment and plan (1) Acute respiratory failure with hypoxia and hypercapnia: Postoperative day #3 status post trach Use ventilator at night/sleeping, use trach with venturi mask for most of the day Hopefully will be placed on Trach shield Stop continuous sedation continue PRNs of morphine and Ativan (2) STEMI (ST elevation myocardial infarction): Stent was placed 05/11, drug-eluting Nitro was started for coronary spasm following procedure, and has now been moved to [facility] with increased dose to help hypertension as well. Continue aspirin, statin, beta-yi, and Plavix Lovenox for DVT prophylaxis. Previous echo demonstrated preserved EF. (3) Laryngeal mass: Biopsy occurred with time of tracheostomy. Mass noted. Await biopsy results (4) COPD (chronic obstructive pulmonary disease): Continue pulmonary toilet. No current wheezing, will discontinue steroids Continue ceftriaxone for pneumonia. Culture showed strep pneumonia. Has been on ceftriaxone since May 07. (5) Hypertension: BP went to the 200s last night Tried Hydralazine at 25mg, then 10mg, then another 10mg later without resolve Was placed on Nicardipine drip at 5mg (6) Pneumonia: Plan Acute kidney injury, resolved Acute diastolic CHF, resolved -Full code Nutrition. Doing well with chips and sips. May eventually taper off feeds and discontinue Lovenox for DVT prophylaxis PICC line for access PT and OT consults Attestations 2 Medical Necessity Statement*: Per attending Coding Level of Care Code Acute Code for Chg Fwd Diagnoses Acute respiratory failure with hypoxia and hypercapnia J96.01; J96.02 STEMI (ST elevation myocardial infarction) I21.3 Laryngeal mass J38.7 COPD (chronic obstructive pulmonary disease) J44.9 Hypertension I10 Pneumonia J18.9 Documented by User: Sharif Wesley MD 05/15/24 13:16 Physical Exam 2 Narrative: General: Patient is awake and alert. Chronically ill appearing. Head: Normocephalic. Atraumatic. EOM intact. NGT. Neck: Trach. Cardiovascular: RRR. No gallops. No murmurs. Lungs: Adequate air movement. Tracheostomy. Supplemental support. Skin: No jaundice. No rashes. Abdomen: Normal bowel sounds, abdomen soft and nontender. Extremities: No cyanosis or clubbing. Musculoskeletal: No swollen or erythematous joints. Neurological: Moves all 4 extremities. No myoclonus. Urinary Catheter Management: Osorio: Cath Placed During This Visit: yes Data 05/15/24 03:50 05/15/24 03:50 A&P Assessment and plan (1) Acute respiratory failure with hypoxia and hypercapnia: Postoperative day #3 status post trach ENT following, appreciate recommendations Routine trach care Morphine for air hunger Ativan for anxiety Continue Rocephin Continue current diet with tube feeds supplementation via NG tube Continue working with speech therapy, hopefully will not need PEG LTACH assessment (2) STEMI (ST elevation myocardial infarction): Stent was placed 05/11, drug-eluting Continue Imdur Continue aspirin, statin, beta-yi, and Plavix (3) Laryngeal mass: Obstructive laryngeal mass requiring tracheostomy Status post biopsy, follow-up path (4) COPD (chronic obstructive pulmonary disease): Continue breathing treatments (5) Hypertension: Blood pressure uncontrolled Increase Coreg Increase hydralazine Wean off nicardipine drip as tolerated (6) Pneumonia: Strep pneumo pneumonia Continue Rocephin (05/07-present) Plan Acute kidney injury, resolved Acute diastolic CHF, resolved -Full code Nutrition. Doing well with chips and sips. May eventually taper off feeds and discontinue Lovenox for DVT prophylaxis PICC line for access PT and OT consults Attestations 2 Medical Necessity Statement*: Patient is status post fresh tracheostomy for obstructing laryngeal mass requiring ongoing hospitalization to continue trach weaning, requiring enteral nutrition via NG tube, requiring speech/occupational/physical therapies, serial labs, IV antibiotics, new tracheostomy care and education, and supportive care. Coding Level of Care Code Acute Code for Chg Fwd Diagnoses Acute respiratory failure with hypoxia and hypercapnia J96.01; J96.02 STEMI (ST elevation myocardial infarction) I21.3 Laryngeal mass J38.7 COPD (chronic obstructive pulmonary disease) J44.9 Hypertension I10 Pneumonia J18.9
--- NOTE | 2024-05-15 07:36 | P.PN_ITS ---
Subjective 2 Subjective: 49 yo wf who is POD 3 s/p tracheotomy fo r airway obstruction secondary to a laryngeal mass. The patient is doing well from the standpoint of her tracheotomy by report. Medications: Reviewed: Yes Vitals/I&O/Wt Last Vital Signs Temp 99.3 F 05/15/24 06:00 Pulse 90 05/15/24 06:00 Resp 22 H 05/15/24 04:25 BP 149/76 05/15/24 06:00 Pulse Ox 91 05/15/24 06:00 O2 Del Method Mechanical Ventilation, Venturi Mask 05/15/24 04:00 O2 Flow Rate 35 05/13/24 13:23 FiO2 35 05/15/24 04:00 05/14/24 05/15/24 05/15/24 22:59 06:59 14:59 Intake Total 665 / 715 1510.333 / 2225.333 18.333 / 18.333 Output Total 600 / 600 650 / 1250 Balance 65 / 115 860.333 / 975.333 18.333 / 18.333 Weight last 48 hrs Weight 95 kg Weight 91.5 kg Physical Exam 2 Const: COMMON NORMALS: no acute distress HENMT: COMMON NORMALS: normocephalic and atraumatic HEAD & SCALP: n ormocephalic and atraumatic Neck/C-Spine: GENERAL: Yes tracheostomy present (Clean, without erythema or swelling.) Urinary Catheter Management: Osorio: Cath Placed During This Visit: yes Reason for Continuing Indwelling Catheter: Accurate Measurement of Urinary Output in Critically Ill Patients Urinary Catheter Date of Insertion: 05/07/24 Urinary Catheter Time of Insertion: 04:21 Data 05/15/24 03:50 05/15/24 03:50 A&P Assessment and plan (1) Laryngeal mass: Impression: Stable Plan: - We await the path report from the surgical biopsies; I will make further recommendations once they are available (2) Acute respiratory failure with hypoxia and hypercapnia: Impression: POD #3 s/p tracheotomy doing well from this standpoint Plan: - Continue trach care - First trach change on POD #7 Attestations 2 Medical Necessity Statement*: I was consulted to assist in airway management Coding Level of Care Code Acute Code for [employer] Fwd Diagnoses Laryngeal mass J38.7 Acute respiratory failure with hypoxia and hypercapnia J96.01; J96.02
[2024-05-15] MEDS: budesonide 0.5 mg/2 mL Neb INHALATION ×2 (07:43→19:18)
[2024-05-15] MEDS: enoxaparin 40 mg/0.4 mL Syringe SUBCUT (09:41)
[2024-05-15] MEDS: isosorbide mononitrate ER 60 mg Tablet PO (09:41)
[2024-05-15] MEDS: clopidogrel 75 mg Tablet PO (09:41)
[2024-05-15] MEDS: hyDRALAzine 50 mg Tablet PO ×4 (09:41→20:44)
[2024-05-15] MEDS: carvedilol 25 mg Tablet PO ×2 (09:41→17:55)
[2024-05-15] MEDS: aspirin 81 mg EC Tablet PO (09:41)
[2024-05-15] MEDS: oxyCODONE 5 mg IR Tab/Cap PO (09:57)
--- NOTE | 2024-05-15 14:07 | PM.PN ---
Subjective Subjective: No new complaints Medications: Reviewed: Yes Vitals/I&O/Wt Last Vital Signs Temp 98.7 F 05/15/24 10:00 Pulse 71 05/15/24 12:30 Resp 18 05/15/24 13:38 BP 106/61 05/15/24 12:30 Pulse Ox 95 05/15/24 13:34 O2 Del Method HAG 05/15/24 11:33 O2 Flow Rate 35 05/13/24 13:23 FiO2 35 05/15/24 13:34 05/14/24 05/15/24 05/15/24 22:59 06:59 14:59 Intake Total 665 / 715 1510.333 / 2225.333 48.333 / 48.333 Output Total 600 / 600 650 / 1250 Balance 65 / 115 860.333 / 975.333 48.333 / 48.333 Weight last 48 hrs Weight 95 kg Weight 91.5 kg Physical Exam Narrative: Has trach and NGT, patient is awake no distress HEENT S1-S2 regular rate and rhythm Lungs clear per report No pedal edema per report Urinary Catheter Management: Osorio: Cath Placed During This Visit: yes Reason for Continuing Indwelling Catheter: Accurate Measurement of Urinary Output in Critically Ill Patients Urinary Catheter Date of Insertion: 05/07/24 Urinary Catheter Time of Insertion: 04:21 Data 05/15/24 03:50 05/15/24 03:50 A&P Assessment and plan (1) CKD (chronic kidney disease): (2) RADHA (acute kidney injury): 1. Acute on chronic kidney disease stage III: Baseline creatinine in the mid 2 range. Etiology likely ATN in the setting of possible sepsis. electrolytes stable,, not on pressors. Received IV contrast on 05/07. - started Tube feeds , stopped IVFs , has trach - renal fxn improved back to baseline 2. Acute respiratory failure, multifactorial in the setting of CHF, COPD and concern for swelling in the para Glottic space, ENT following,s/p trach 3. STEMI,- for [facility] yesterday , Lcx stent placed 4. History of CHF, off diuretics currently 5. hYPERNATREMIA : add free water , improved Patient evaluated using audiovisual cart. Time spent 40 minutes. Attestations Medical Necessity Statement*: Per medicine team Coding Level of Care Code Acute Code for Chg Fwd Diagnoses CKD (chronic kidney disease) N18.9 RADHA (acute kidney injury) N17.9
[2024-05-15] MEDS: atorvastatin 40 mg Tablet 80 MG PO (20:44)
[2024-05-16] VITALS (55 sets, daily range): BP systolic 103–181; BP diastolic 54–92; PULSE 66–90; RESP 12–28; TEMP 36.4–37.4; O2SAT 87–98
[2024-05-16 03:14] LABS: Basophils % 0.2 %; Eosinophils # 0.1 10^3/uL (0.0-0.8); Eosinophils % 0.8 %; Lymphocytes # 1.3 10^3/uL (0.8-4.8); Lymphocytes % 20.2 %; Mean Corpuscular HGB Conc 31.3 g/dL (30-55); Mean Corpuscular Hemoglobin 30.4 pg (27-33); Mean Corpuscular Volume 97.2 fl (85-98); Mean Platelet Volume 10.6 fL (7.4-10.4); Monocytes # 0.4 10^3/uL (0.2-0.9); Monocytes % 6.2 %; Neutrophils # 4.63 10^3/uL (1.8-7.7); Neutrophils % 71.4 %; Nucleated Red Blood Cells % 0 %; Platelet Count 132 10^3/cmm (157-399); Red Blood Count 3.19 10^6/uL (3.85-5.65); Red Cell Distribution Width 13.5 % (12.1-15.1); White Blood Count 6.48 10^3/uL (3.29-11.43)
[2024-05-16 03:38] LABS: Alanine Aminotransferase 21 U/L (0-33); Albumin Level 2.6 g/dL (3.5-5.2); Alkaline Phosphatase 44 U/L (35-105); Anion Gap 8.9 (5-19); Aspartate Amino Transferase 16 U/L (0-32); Blood Urea Nitrogen 24 mg/dL (6-20); Calcium 8.1 mg/dL (8.5-10.5); Carbon Dioxide 31 mmol/L (22-29); Chloride 105 mmol/L (98-107); Creatinine Clr Calc Pharmacy 94.8252; Globulin 2.1 g/dL (1.3-4.6); Glomerular Filtration Rate 75.6 mL/min (90-130); Glucose 104 mg/dL (65-115); Magnesium 1.7 mg/dL (1.7-2.3); Osmolality Calculated 296 mOsm/kg (285-295); Phosphorus 1.8 mg/dL (2.5-4.5); Potassium 3.9 mmol/L (3.5-5.1); Sodium 141 mmol/L (136-145); Total Bilirubin 0.3 mg/dL (0.15-1.2); Total Protein 4.7 g/dL (6.6-8.7)
[2024-05-16] MEDS: ipratropium-albuterol 3 mL Neb INHALATION ×5 (04:08→19:38)
[2024-05-16] MEDS: pantoprazole 40 mg SDV IVP ×2 (04:09→16:25)
[2024-05-16] MEDS: chlorhexidine gluconate 4% Btl 118 mL 1 APPLIC TOPICAL (04:09)
[2024-05-16] MEDS: cefTRIAXone 1,000 mg SDV 1000 MG IVP (04:10)
[2024-05-16] MEDS: LORazepam 2 mg/mL INJ 1 mL 0.5 MG IVP ×2 (04:17→14:27)
[2024-05-16] MEDS: budesonide 0.5 mg/2 mL Neb INHALATION ×2 (08:26→19:39)
[2024-05-16] MEDS: hyDRALAzine 50 mg Tablet PO ×4 (09:11→20:51)
[2024-05-16] MEDS: phosphorus 250 mg Tablet NG-TUBE ×2 (09:14→17:58)
[2024-05-16] MEDS: enoxaparin 40 mg/0.4 mL Syringe SUBCUT (09:14)
[2024-05-16] MEDS: carvedilol 25 mg Tablet PO ×2 (09:14→17:58)
[2024-05-16] MEDS: aspirin 81 mg EC Tablet PO (09:14)
[2024-05-16] MEDS: isosorbide mononitrate ER 60 mg Tablet PO (09:14)
[2024-05-16] MEDS: clopidogrel 75 mg Tablet PO (09:14)
[2024-05-16] MEDS: oxyCODONE 5 mg IR Tab/Cap PO ×2 (11:20→17:59)
--- NOTE | 2024-05-16 12:25 | PM.PN ---
Subjective Subjective: Patient's tracheostomy status does limit history somewhat. She is awake and alert. She nods appropriately. She denies any significant pain, nausea or emesis. Tolerating tube feeds via NG tube. We discussed definitive nutritional support will be determined by how she continues to do with speech therapy. Currently supplemented through an NG tube. She may need a PEG tube. Medications: Reviewed: Yes Vitals/I&O/Wt Last Vital Signs Temp 97.9 F 05/16/24 12:00 Pulse 70 05/16/24 12:00 Resp 21 H 05/16/24 12:00 BP 107/92 05/16/24 12:00 Pulse Ox 92 05/16/24 11:20 O2 Del Method HAG, Trach Collar 05/16/24 11:18 O2 Flow Rate 35 05/15/24 17:19 FiO2 35 05/16/24 11:18 05/15/24 05/16/24 05/16/24 22:59 06:59 14:59 Intake Total 90 / 331.669 2151 / 8.333 40 / 40 Output Total 650 / 650 350 / 1000 Balance -560 / -815.208 8990 / 1028.333 40 / 40 Weight last 48 hrs Weight 95 kg Weight 95 kg Physical Exam Narrative: General: Patient is awake and alert. Chronically ill appearing. Head: Normocephalic. Atraumatic. EOM intact. NGT. Neck: Trach. Cardiovascular: RRR. No gallops. No murmurs. Lungs: Adequate air movement. No wheezing. No rales. Tracheostomy with collar support. Skin: No jaundice. No rashes. Abdomen: Normal bowel sounds, abdomen soft and nontender. Extremities: No cyanosis or clubbing. Musculoskeletal: No swollen or erythematous joints. Neurological: Moves all 4 extremities. No myoclonus. Urinary Catheter Management: Osorio: Cath Placed During This Visit: yes Reason for Continuing Indwelling Catheter: Accurate Measurement of Urinary Output in Critically Ill Patients Urinary Catheter Date of Insertion: 05/07/24 Urinary Catheter Time of Insertion: 04:21 Data 05/16/24 02:48 05/16/24 02:48 A&P Assessment and plan (1) Acute respiratory failure with hypoxia and hypercapnia: POD4 tracheostomy ENT following, appreciate recommendations Routine trach care Morphine for air hunger Ativan for anxiety Continue with tube feeds supplementation via NG tube Continue working with speech therapy, may need PEG tube pending clinical course LTACH assessment (2) STEMI (ST elevation myocardial infarction): Stent was placed 05/11, drug-eluting Continue DAPT, statin, beta-yi, and Imdur (3) Laryngeal mass: 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 (4) COPD (chronic obstructive pulmonary disease): Continue breathing treatments (5) Hypertension: Blood pressure uncontrolled Continue Coreg Continue hydralazine Adjust analgesics as needed (6) Pneumonia: Strep pneumo pneumonia Continue Rocephin (05/07-present) Plan Acute kidney injury, resolved Acute diastolic CHF, resolved CODE STATUS: Full code DVT prophylaxis: Lovenox Attestations Medical Necessity Statement*: Patient is status post no tracheostomy for obstructing laryngeal mass requiring ongoing hospitalization to continue trach weaning, requiring enteral nutrition via NG tube, requiring speech/occupational/physical therapies, serial labs, IV antibiotics, new tracheostomy care and education, and supportive care. Coding Level of Care Code Acute Code for [facility] Fwd Diagnoses Acute respiratory failure with hypoxia and hypercapnia J96.01; J96.02 STEMI (ST elevation myocardial infarction) I21.3 Laryngeal mass J38.7 COPD (chronic obstructive pulmonary disease) J44.9 Hypertension I10 Pneumonia J18.9
--- NOTE | 2024-05-16 15:13 | P.PN_ITS ---
Subjective 2 Subjective: no new c/o Medications: Reviewed: Yes Vitals/I&O/Wt Last Vital Signs Temp 97.9 F 05/16/24 12:00 Pulse 73 05/16/24 14:30 Resp 21 H 05/16/24 14:30 BP 142/77 05/16/24 14:30 Pulse Ox 94 05/16/24 14:30 O2 Del Method HAG, Trach Collar 05/16/24 11:18 O2 Flow Rate 35 05/15/24 17:19 FiO2 35 05/16/24 11:18 05/16/24 05/16/24 05/16/24 06:59 14:59 22:59 Intake Total 1830 / 2028.333 40 / 40 Output Total 350 / 1000 Balance 1480 / 1028.333 40 / 40 Weight last 48 hrs Weight 95 kg Weight 95 kg Physical Exam 2 Narrative: Has trach and NGT, patient is awake no distress HEENT S1-S2 regular rate and rhythm Lungs clear per report No pedal edema per report Urinary Catheter Management: Osorio: Cath Placed During This Visit: yes Reason for Continuing Indwelling Catheter: Accurate Measurement of Urinary Output in Critically Ill Patients Urinary Catheter Date of Insertion: 05/07/24 Urinary Catheter Time of Insertion: 04:21 Data 05/16/24 02:48 05/16/24 02:48 A&P Assessment and plan (1) CKD (chronic kidney disease): (2) RADHA (acute kidney injury): 1. Acute on chronic kidney disease stage III: Baseline creatinine in the mid 2 range. Etiology likely ATN in the setting of possible sepsis. electrolytes stable,, not on pressors. Received IV contrast on 05/07. - started Tube feeds , stopped IVFs , has trach - renal fxn improved back to baseline 2. Acute respiratory failure, multifactorial in the setting of CHF, COPD and concern for swelling in the para Glottic space, ENT following,s/p trach 3. STEMI,- for [facility] yesterday , Lcx stent placed 4. History of CHF, off diuretics currently 5. hYPERNATREMIA : add free water , improved Patient evaluated using audiovisual cart. Time spent 40 minutes. Attestations 2 Medical Necessity Statement*: per medicine Coding Level of Care Code Acute Code for Chg Fwd Diagnoses CKD (chronic kidney disease) N18.9 RADHA (acute kidney injury) N17.9
--- NOTE | 2024-05-16 17:27 | P.PN_ITS ---
Subjective 2 Subjective: 49 yo wf who is POD #1 s/p tracheotomy f or airway obstruction secondary to a laryngeal mass. The patient is doing well from this standpoint. She is o/w without c/o. Medications: Reviewed: Yes Vitals/I&O/Wt Last Vital Signs Temp 97.6 F 05/16/24 16:00 Pulse 78 05/16/24 16:00 Resp 25 H 05/16/24 16:00 BP 143/77 05/16/24 16:00 Pulse Ox 93 05/16/24 16:00 O2 Del Method HAG 05/16/24 15:30 O2 Flow Rate 35 05/15/24 17:19 FiO2 35 05/16/24 15:30 05/16/24 05/16/24 05/16/24 06:59 14:59 22:59 Intake Total 1830 / 8.333 40 / 40 970 / 1010 Output Total 350 / 1000 1150 / 1150 Balance 1480 / 1028.333 40 / 40 -180 / -140 Weight last 48 hrs Weight 95 kg Weight 95 kg Physical Exam 2 Const: COMMON NORMALS: no acute distress and alert HENMT: COMMON NORMALS: normocephalic, atraumatic and Normal external nose present HEAD & SCALP: normocephalic and atraumatic NOSE: Normal external nose present and Normal nares present Eye: COMMON NORMALS: no scleral icterus Neck/C-Spine: GENERAL: Yes tracheostomy present (Clean without erythema.) Neuro: SENSORIUM/ORIENTATION: Yes alert Urinary Catheter Management: Osorio: Cath Placed During This Visit: yes Reason for Continuing Indwelling Catheter: Accurate Measurement of Urinary Output in Critically Ill Patients Urinary Catheter Date of Insertion: 05/07/24 Urinary Catheter Time of Insertion: 04:21 Data 05/16/24 02:48 05/16/24 02:48 A&P Assessment and plan (1) Laryngeal mass: Impression: POD #4 s/p tracheotomy doing well from this standpoint Plan: - Continue trach care - Plan for first trach change on POD #7 - We will begin care for laryngeal mass once the patient is discharged. (2) Acute respiratory failure with hypoxia and hypercapnia: See the above Attestations 2 Medical Necessity Statement*: I was consulted to assist in airway obstruction Coding Level of Care Code Acute Code for [facility] Fw Diagnoses Laryngeal mass J38.7 Acute respiratory failure with hypoxia and hypercapnia J96.01; J96.02
[2024-05-16] MEDS: atorvastatin 40 mg Tablet 80 MG PO (20:51)
[2024-05-17] VITALS (42 sets, daily range): BP systolic 107–196; BP diastolic 52–92; PULSE 60–96; RESP 16–33; TEMP 36.6–36.8; O2SAT 92–98
[2024-05-17] MEDS: ipratropium-albuterol 3 mL Neb INHALATION ×7 (00:08→23:36)
[2024-05-17] MEDS: chlorhexidine gluconate 4% Btl 118 mL 1 APPLIC TOPICAL (04:23)
[2024-05-17] MEDS: pantoprazole 40 mg SDV IVP ×2 (04:24→15:36)
[2024-05-17] MEDS: cefTRIAXone 1,000 mg SDV 1000 MG IVP (04:24)
--- NOTE | 2024-05-17 05:25 | PM.PN ---
Subjective Subjective: no new c/o Vitals/I&O/Wt Last Vital Signs Temp 98.4 F 05/16/24 22:00 Pulse 73 05/17/24 04:00 Resp 22 H 05/17/24 04:00 BP 164/87 05/17/24 04:00 Pulse Ox 94 05/17/24 04:00 O2 Del Method HAG 05/17/24 03:16 O2 Flow Rate 35 05/15/24 17:19 FiO2 35 05/17/24 03:16 05/16/24 05/16/24 05/17/24 14:59 22:59 06:59 Intake Total 40 / 40 1030 / 1070 1394 / 2464 Output Total 1150 / 1150 450 / 1600 Balance 40 / 40 -120 / -80 944 / 864 Weight last 48 hrs Weight 99 kg Weight 95 kg Weight 95 kg Physical Exam Narrative: Has trach and NGT, patient is awake no distress HEENT S1-S2 regular rate and rhythm Lungs clear per report No pedal edema per report Urinary Catheter Management: Osorio: Cath Placed During This Visit: yes Reason for Continuing Indwelling Catheter: Accurate Measurement of Urinary Output in Critically Ill Patients Urinary Catheter Date of Insertion: 05/07/24 Urinary Catheter Time of Insertion: 04:21 Data 05/17/24 04:22 05/17/24 04:22 A&P Assessment and plan (1) CKD (chronic kidney disease): (2) RADHA (acute kidney injury): 1. Acute on chronic kidney disease stage III: Baseline creatinine in the mid 2 range. Etiology likely ATN in the setting of possible sepsis. electrolytes stable,, not on pressors. Received IV contrast on 05/07. - started Tube feeds , stopped IVFs , has trach - renal fxn improved back to baseline 2. Acute respiratory failure, multifactorial in the setting of CHF, COPD and concern for swelling in the para Glottic space, ENT following,s/p trach 3. STEMI,- for [facility] yesterday , Lcx stent placed 4. History of CHF, off diuretics currently 5. hYPERNATREMIA : added free water , improved 6. met alkalosis , monitor Patient evaluated using audiovisual cart. Time spent 40 minutes. Attestations Medical Necessity Statement*: per jevon Coding Level of Care Code Acute Code for Chg Fwd Diagnoses CKD (chronic kidney disease) N18.9 RADHA (acute kidney injury) N17.9
[2024-05-17 05:27] LABS: Albumin Level 2.6 g/dL (3.5-5.2); Anion Gap 8.8 (5-19); Blood Urea Nitrogen 19 mg/dL (6-20); Calcium 8.2 mg/dL (8.5-10.5); Carbon Dioxide 31 mmol/L (22-29); Chloride 103 mmol/L (98-107); Creatinine Clr Calc Pharmacy 110.7732; Glomerular Filtration Rate 88.2 mL/min (90-130); Glucose 119 mg/dL (65-115); Magnesium 1.7 mg/dL (1.7-2.3); Phosphorus 2.2 mg/dL (2.5-4.5); Potassium 3.8 mmol/L (3.5-5.1); Sodium 139 mmol/L (136-145)
[2024-05-17] MEDS: LORazepam 2 mg/mL INJ 1 mL 0.5 MG IVP ×2 (06:43→23:14)
[2024-05-17 07:10] LABS: Eosinophils % 0.6 %; Hematocrit 32.2 % (36-47); Lymphocytes # 1.2 10^3/uL (0.8-4.8); Lymphocytes % 18.9 %; Mean Corpuscular HGB Conc 31.7 g/dL (30-55); Mean Corpuscular Hemoglobin 30.6 pg (27-33); Mean Corpuscular Volume 96.7 fl (85-98); Monocytes # 0.4 10^3/uL (0.2-0.9); Monocytes % 5.6 %; Neutrophils # 4.87 10^3/uL (1.8-7.7); Neutrophils % 74.3 %; Nucleated Red Blood Cells % 0 %; Platelet Count 133 10^3/cmm (157-399); Red Blood Count 3.33 10^6/uL (3.85-5.65); Red Cell Distribution Width 13.4 % (12.1-15.1); White Blood Count 6.56 10^3/uL (3.29-11.43)
[2024-05-17] MEDS: budesonide 0.5 mg/2 mL Neb INHALATION ×2 (07:27→19:47)
[2024-05-17] MEDS: isosorbide mononitrate ER 60 mg Tablet PO (09:34)
[2024-05-17] MEDS: hyDRALAzine 50 mg Tablet PO (09:34)
[2024-05-17] MEDS: clopidogrel 75 mg Tablet PO (09:34)
[2024-05-17] MEDS: amlodipine 5 mg Tablet PO (09:34)
[2024-05-17] MEDS: phosphorus 250 mg Tablet NG-TUBE ×2 (09:34→18:15)
[2024-05-17] MEDS: carvedilol 25 mg Tablet PO ×2 (09:34→18:15)
[2024-05-17] MEDS: aspirin 81 mg EC Tablet PO (09:34)
[2024-05-17] MEDS: enoxaparin 40 mg/0.4 mL Syringe SUBCUT (09:34)
[2024-05-17] MEDS: oxyCODONE 5 mg IR Tab/Cap PO ×2 (10:37→18:15)
--- NOTE | 2024-05-17 12:13 | FL_ITS ---
WS: [id number] Modified barium swallow, 05/17/2024 Clinical Data: Other dysphagia Comparison: None. Fluoroscopy time: 1min [id number] # of spot films: 1 Findings: The patient demonstrated premature spillage from the oral cavity on numerous consistencies. There was residual barium at the tongue base and in the vallecula. There is also penetration and aspiration wi th many consistencies. No coughing ensued. FL/FL barium swallow modifd [id number] Impression: 1. Premature spillage from the oral cavity. 2. Residual barium at the tongue base and in the vallecula. 3. Minimal aspiration and penetration with multiple consistencies.
--- NOTE | 2024-05-17 12:15 | P.PN_ITS ---
Subjective 2 Subjective: Patient with slight breathing difficulty upon waking this morning. She was awakened earlier than she is used to. Blood pressures remain elevated despite escalation of antihypertensives. Overall this morning she states she is doing okay. I discussed possible modified barium swallow later today if she continues to do well. She is in agreement. Denies fevers, chills, nausea or emesis. Planning for LTACH placement. Medications: Reviewed: Yes Vitals/I&O/Wt Last Vital Signs Temp 98.4 F 05/16/24 22:00 Pulse 75 05/17/24 11:28 Resp 18 05/17/24 11:28 BP 162/79 05/17/24 06:30 Pulse Ox 92 05/17/24 11:28 O2 Del Method HAG 05/17/24 11:28 O2 Flow Rate 35 05/15/24 17:19 FiO2 35 05/17/24 11:28 05/16/24 05/17/24 05/17/24 22:59 06:59 14:59 Intake Total 1030 / 1070 1394 / 2464 Output Total 1150 / 1150 450 / 1600 Balance -120 / -80 944 / 864 Weight last 48 hrs Weight 99 kg Weight 95 kg Physical Exam 2 Narrative: General: Patient is awake and alert. Chronically ill appearing. Head: Normocephalic. Atraumatic. EOM intact. NGT. Neck: Trach. Cardiovascular: RRR. No gallops. No murmurs. Lungs: Adequate air movement. No wheezing. No rales. No crackles. Tracheostomy with collar support in place. Skin: No jaundice. No rashes. Abdomen: Normal bowel sounds, abdomen soft and nontender. Extremities: No cyanosis or clubbing. Musculoskeletal: No swollen or erythematous joints. Neurological: Moves all 4 extremities. No myoclonus. Urinary Catheter Management: Osorio: Cath Placed During This Visit: yes Reason for Continuing Indwelling Catheter: Accurate Measurement of Urinary Output in Critically Ill Patients Urinary Catheter Date of Insertion: 05/07/24 Urinary Catheter Time of Insertion: 04:21 Data 05/17/24 04:22 05/17/24 04:22 A&P Assessment and plan (1) Acute respiratory failure with hypoxia and hypercapnia: POD5 tracheostomy ENT following, appreciate recommendations Routine trach care Morphine for air hunger Ativan for anxiety Continue with tube feeds supplementation via NG tube Continue working with speech therapy, plan for modified barium swallow if she continues to do well today LTACH assessment (2) STEMI (ST elevation myocardial infarction): Status post PCI with stent on 05/11 Continue DAPT, statin, beta-yi, and Imdur (3) Laryngeal mass: 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, she will need to establish with medical oncology after she is recovered from her tracheostomy procedure (4) COPD (chronic obstructive pulmonary disease): Continue breathing treatments (5) Hypertension: Blood pressure uncontrolled Continue Coreg Increase hydralazine to 100 mg 3 times daily Continue Norvasc, may increase to 10 mg pending response to hydralazine Adjust analgesics as needed (6) Pneumonia: Strep pneumo pneumonia Continue Rocephin (05/07-present), will need to determine stop date soon Plan Acute kidney injury, resolved Acute diastolic CHF, resolved CODE STATUS: Full code DVT prophylaxis: Lovenox Attestations 2 Medical Necessity Statement*: Patient is status post no tracheostomy for obstructing laryngeal mass requiring ongoing hospitalization to continue trach weaning, requiring enteral nutrition via NG tube, requiring speech/occupational/physical therapies, serial labs, IV antibiotics, new tracheostomy care and education, and supportive care. Coding Level of Care Code Acute Code for Chg Fwd Diagnoses Acute respiratory failure with hypoxia and hypercapnia J96.01; J96.02 STEMI (ST elevation myocardial infarction) I21.3 Laryngeal mass J38.7 COPD (chronic obstructive pulmonary disease) J44.9 Hypertension I10 Pneumonia J18.9
[2024-05-17] MEDS: hyDRALAzine 50 mg Tablet 100 MG PO ×2 (15:36→21:45)
--- NOTE | 2024-05-17 16:29 | P.PN_ITS ---
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 The patient is doing well by report. Medications: Reviewed: Yes Vitals/I&O/Wt Last Vital Signs Temp 98.4 F 05/16/24 22:00 Pulse 76 05/17/24 15:29 Resp 16 05/17/24 15:25 BP 162/79 05/17/24 06:30 Pulse Ox 92 05/17/24 15:25 O2 Del Method HAG 05/17/24 15:25 O2 Flow Rate 35 05/15/24 17:19 FiO2 35 05/17/24 15:25 05/17/24 05/17/24 05/17/24 06:59 14:59 22:59 Intake Total 1394 / 2464 Output Total 450 / 1600 Balance 944 / 864 Weight last 48 hrs Weight 99 kg Weight 95 kg Physical Exam 2 Const: COMMON NORMALS: no acute distress and alert HENMT: COMMON NORMALS: normocephalic and atraumatic HEAD & SCALP: n ormocephalic and atraumatic FACE & SINUS: normal facial exam and face symmetric Neck/C-Spine: GENERAL: Yes tracheostomy present (No erythema or swelling.) Neuro: SENSORIUM/ORIENTATION: Yes alert Urinary Catheter Management: Osorio: Cath Placed During This Visit: yes Reason for Continuing Indwelling Catheter: Accurate Measurement of Urinary Output in Critically Ill Patients Urinary Catheter Date of Insertion: 05/07/24 Urinary Catheter Time of Insertion: 04:21 Data 05/17/24 04:22 05/17/24 04:22 A&P Assessment and plan (1) Cancer of larynx: Impression: 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 Coding Level of Care Code Acute Code for [facility] Fwd Diagnoses Cancer of larynx C32.9 Acute respiratory failure with hypoxia and hypercapnia J96.01; J96.02
--- NOTE | 2024-05-17 19:38 | PC.NURSE ---
Shift summary: Pt rested in bed this am. Pt assisted her to chair around noon. She then went for modified barium swallow test. After that was completed she went back to the bed to rest this afternoon. She exhibits a positive attitude and tries hard with PT, Sinus rhythm noted on monitor. She started the day off with her traach collar at 28% increased to 35%. Her work of breathing and shallow breaths improved after that. O2 sats have been greater than 92%. She has been afebrile. She was able to bear her weight well and take a few shuffling steps. No Ativan admin this shift. She did have oxy IR admin twice this shift for neck/throat pain. She is coughing up white/peña mucous sputum. Suctioning provided. She will call staff into room for suctioning. Self- suctioning demonstrated and assisted a couple time. She was offered a mirror so she ould see her neck for suctioning. She declined and mouthed the words maybe later. She is tolerating her tube feedings well. Flatus noted tis shift. She had 1250ml of urine output this shift. Her called to check on her today, update provided. No visitors today.
[2024-05-17] MEDS: atorvastatin 40 mg Tablet 80 MG PO (21:45)
[2024-05-18] VITALS (34 sets, daily range): BP systolic 99–181; BP diastolic 45–81; PULSE 49–98; RESP 14–33; TEMP 37.5; O2SAT 91–98
[2024-05-18] MEDS: ipratropium-albuterol 3 mL Neb INHALATION ×5 (04:08→20:11)
[2024-05-18] MEDS: oxyCODONE 5 mg IR Tab/Cap PO ×2 (04:24→12:32)
[2024-05-18] MEDS: pantoprazole 40 mg SDV IVP ×2 (05:11→16:42)
[2024-05-18] MEDS: cefTRIAXone 1,000 mg SDV 1000 MG IVP (05:12)
[2024-05-18 05:54] LABS: Basophils % 0.2 %; Eosinophils % 0.5 %; Hematocrit 33.9 % (36-47); Lymphocytes # 0.8 10^3/uL (0.8-4.8); Lymphocytes % 9.5 %; Mean Corpuscular HGB Conc 30.7 g/dL (30-55); Mean Corpuscular Volume 97.7 fl (85-98); Mean Platelet Volume 10.8 fL (7.4-10.4); Monocytes # 0.5 10^3/uL (0.2-0.9); Monocytes % 6.1 %; Neutrophils # 7.25 10^3/uL (1.8-7.7); Neutrophils % 82.9 %; Nucleated Red Blood Cells % 0 %; Platelet Count 166 10^3/cmm (157-399); Red Blood Count 3.47 10^6/uL (3.85-5.65); Red Cell Distribution Width 13.4 % (12.1-15.1); White Blood Count 8.74 10^3/uL (3.29-11.43)
[2024-05-18 06:16] LABS: Albumin Level 2.6 g/dL (3.5-5.2); Blood Urea Nitrogen 15 mg/dL (6-20); Calcium 8.3 mg/dL (8.5-10.5); Carbon Dioxide 31 mmol/L (22-29); Chloride 102 mmol/L (98-107); Creatinine Clr Calc Pharmacy 110.7732; Glomerular Filtration Rate 88.2 mL/min (90-130); Glucose 137 mg/dL (65-115); Phosphorus 2.6 mg/dL (2.5-4.5); Sodium 140 mmol/L (136-145)
[2024-05-18] MEDS: budesonide 0.5 mg/2 mL Neb INHALATION ×2 (07:40→20:11)
[2024-05-18] MEDS: hyDRALAzine 50 mg Tablet 100 MG PO ×2 (07:44→21:17)
[2024-05-18] MEDS: amlodipine 5 mg Tablet 10 MG PO (07:44)
[2024-05-18] MEDS: clopidogrel 75 mg Tablet PO (07:44)
[2024-05-18] MEDS: carvedilol 25 mg Tablet PO (07:45)
[2024-05-18] MEDS: isosorbide mononitrate ER 60 mg Tablet PO (07:45)
[2024-05-18] MEDS: phosphorus 250 mg Tablet NG-TUBE ×2 (07:45→17:15)
[2024-05-18] MEDS: aspirin 81 mg EC Tablet PO (07:45)
--- NOTE | 2024-05-18 08:45 | P.PN_ITS ---
Subjective 2 Subjective: Patient denies new complaints this morning. Discussed aspiration findings on modified barium swallow. Discussed she may benefit from PEG tube placement. She is in agreement with this plan. Will need to determine timing of PEG tube placement. We discussed her pathology results revealing squamous cell carcinoma. After recovery, she will need to establish with oncologic care. Otherwise she denies new complaints. Denies fevers, chills, chest pain or shortness of breath. Medications: Reviewed: Yes Vitals/I&O/Wt Last Vital Signs Temp 98.1 F 05/17/24 20:00 Pulse 74 05/18/24 08:00 Resp 18 05/18/24 08:00 BP 148/80 05/18/24 08:00 Pulse Ox 97 05/18/24 08:00 O2 Del Method HAG 05/18/24 07:30 O2 Flow Rate 35 05/15/24 17:19 FiO2 40 05/18/24 07:30 05/17/24 05/18/24 05/18/24 22:59 06:59 14:59 Intake Total 650 / 740 1080 / 1820 Output Total 1250 / 1250 900 / 2150 Balance -600 / -510 180 / -330 Weight last 48 hrs Weight 97.522 kg Weight 99 kg Physical Exam 2 Narrative: General: Patient is awake and alert. Sitting in bedside chair. Head: Normocephalic. Atraumatic. EOM intact. NGT. Neck: Trach. Cardiovascular: RRR. No gallops. No murmurs. Lungs: Adequate air movement. No wheezing. No rales. No crackles. Tracheostomy with collar support in place. Skin: No jaundice. No rashes. Abdomen: Normal bowel sounds, abdomen soft and nontender. Extremities: No cyanosis or clubbing. Musculoskeletal: No swollen or erythematous joints. Neurological: Moves all 4 extremities. No myoclonus. Urinary Catheter Management: Osorio: Cath Placed During This Visit: yes Reason for Continuing Indwelling Catheter: Perioperative Use in Selected Surgeries Urinary Catheter Date of Insertion: 05/07/24 Urinary Catheter Time of Insertion: 04:21 Data 05/18/24 05:30 05/18/24 05:30 A&P Assessment and plan (1) Acute respiratory failure with hypoxia and hypercapnia: Status post tracheostomy on 05/12 ENT following, appreciate recommendations Routine trach care Morphine for air hunger Ativan for anxiety Continue with tube feeds supplementation via NG tube MBS (05/17) reviewed, aspiration noted; will likely need PEG tube LTACH assessment ongoing, will consider general surgery consult for PEG (2) STEMI (ST elevation myocardial infarction): Status post PCI with stent on 05/11 Continue DAPT, statin, beta-yi, and Imdur (3) Laryngeal mass: Obstructive laryngeal mass requiring tracheostomy Path s/f moderately differentiated squamous cell carcinoma, she will need to establish with medical oncology after she is recovered (4) COPD (chronic obstructive pulmonary disease): Continue breathing treatments (5) Hypertension: Blood pressure uncontrolled Continue Coreg Continue hydralazine Increase amlodipine Adjust analgesics as needed (6) Pneumonia: Strep pneumo pneumonia Continue Rocephin (05/07-present), will need to determine stop date soon Plan Acute kidney injury, resolved Acute diastolic CHF, resolved CODE STATUS: Full code DVT prophylaxis: Lovenox Attestations 2 Medical Necessity Statement*: Patient is status post no tracheostomy for obstructing laryngeal mass requiring ongoing hospitalization to continue trach weaning, requiring enteral nutrition via NG tube, possibly PEG tube assessment, speech/occupational/physical therapies, serial labs, IV antibiotics, new tracheostomy care and education, and supportive care. Coding Level of Care Code Acute Code for [facility] Fwd Diagnoses Acute respiratory failure with hypoxia and hypercapnia J96.01; J96.02 STEMI (ST elevation myocardial infarction) I21.3 Laryngeal mass J38.7 COPD (chronic obstructive pulmonary disease) J44.9 Hypertension I10 Pneumonia J18.9
[2024-05-18] MEDS: morphine 4 mg/mL SDV 1 mL IVP ×2 (08:49→16:42)
[2024-05-18] MEDS: enoxaparin 40 mg/0.4 mL Syringe SUBCUT (10:45)
--- NOTE | 2024-05-18 12:35 | PC.NURSE ---
Patient had long pause on monitor this AM. Dr. Wesley aware. New orders in OCT for glucagon for continued bradycardia.
[2024-05-18] MEDS: glucagon 1 mg/mL KIT 1 mL 10 MG IVP (14:32)
--- NOTE | 2024-05-18 15:38 | PC.OT ---
OT TREATMENT HELD DUE TO PATIENT LOW HR.
[2024-05-18 21:05] LABS: Glucose Point of Care 172 mg/dL (70-110)
[2024-05-18] MEDS: atorvastatin 40 mg Tablet 80 MG PO (21:17)
[2024-05-19] VITALS (50 sets, daily range): BP systolic 104–154; BP diastolic 57–79; PULSE 59–97; RESP 9–26; TEMP 37.1–37.4; O2SAT 90–96; BMI 32.6
[2024-05-19] MEDS: ipratropium-albuterol 3 mL Neb INHALATION ×6 (00:12→20:17)
[2024-05-19] MEDS: LORazepam 2 mg/mL INJ 1 mL 0.5 MG IVP (01:09)
[2024-05-19] MEDS: pantoprazole 40 mg SDV IVP (03:30)
[2024-05-19] MEDS: cefTRIAXone 1,000 mg SDV 1000 MG IVP (03:30)
[2024-05-19] MEDS: budesonide 0.5 mg/2 mL Neb INHALATION ×2 (08:32→20:18)
[2024-05-19] MEDS: phosphorus 250 mg Tablet NG-TUBE ×2 (08:41→17:30)
[2024-05-19] MEDS: hyDRALAzine 50 mg Tablet 100 MG PO ×2 (08:41→19:54)
[2024-05-19] MEDS: clopidogrel 75 mg Tablet PO (08:41)
[2024-05-19] MEDS: isosorbide mononitrate ER 60 mg Tablet PO (08:41)
[2024-05-19] MEDS: aspirin 81 mg EC Tablet PO (08:41)
[2024-05-19] MEDS: morphine 10 mg/0.5 mL oral liq UD 5 MG PO ×3 (08:52→19:15)
[2024-05-19] MEDS: enoxaparin 40 mg/0.4 mL Syringe SUBCUT (08:59)
--- NOTE | 2024-05-19 09:08 | P.PN_ITS ---
Subjective 2 Subjective: Patient noted to have sinus pauses yesterday. Throughout the day. Heart rate with drop down to the 30s temporarily without significant heart block noted on telemetry. Events were too short-lived to get a twelve-lead EKG. She reportedly had another event overnight as well. Her beta-blockers been held and she did require a dose of glucagon for beta-yi reversal yesterday. Will continue holding beta-yi this morning abdomen abundance of caution, will hold dihydropyridine calcium channel yi as well. Patient is n.p.o. for general surgery evaluation and possible PEG tube placement today. Medications: Reviewed: Yes Vitals/I&O/Wt Last Vital Signs Temp 98.8 F 05/19/24 04:00 Pulse 69 05/19/24 08:48 Resp 19 H 05/19/24 08:32 BP 145/69 05/19/24 06:00 Pulse Ox 95 05/19/24 08:32 O2 Del Method HAG 05/19/24 08:32 O2 Flow Rate 10 05/19/24 08:32 FiO2 40 05/19/24 08:32 05/18/24 05/19/24 05/19/24 22:59 06:59 14:59 Intake Total 1133 / 1133 545 / 1678 Output Total 500 / 500 1150 / 1650 Balance 633 / 633 -605 / 28 Weight last 48 hrs Weight 89 kg Weight 97.522 kg Physical Exam 2 Narrative: General: Patient is awake and alert. Chronically ill-appearing. Pleasant. Head: Normocephalic. Atraumatic. EOM intact. NGT. Neck: Trach. Cardiovascular: RRR. No gallops. No murmurs. Lungs: Adequate air movement. No wheezing. No rales. No crackles. Tracheostomy with collar support in place. Skin: No jaundice. No rashes. Abdomen: Normal bowel sounds, abdomen soft and nontender. Extremities: No cyanosis or clubbing. Musculoskeletal: No swollen or erythematous joints. Neurological: Moves all 4 extremities. No myoclonus. Urinary Catheter Management: Osorio: Cath Placed During This Visit: yes Reason for Continuing Indwelling Catheter: Accurate Measurement of Urinary Output in Critically Ill Patients Urinary Catheter Date of Insertion: 05/07/24 Urinary Catheter Time of Insertion: 04:21 Data 05/18/24 05:30 09/26/24 05:30 A&P Assessment and plan (1) Acute respiratory failure with hypoxia and hypercapnia: Status post tracheostomy on 05/12 ENT following, appreciate recommendations Routine trach care Morphine per tube as needed for air hunger Ativan for anxiety Tube feeds held since midnight for possible PEG tube placement today, general surgery to evaluate LTACH assessment ongoing, hopefully may be able to transition to LTAC this afternoon versus tomorrow (2) STEMI (ST elevation myocardial infarction): Status post PCI with stent on 05/11 Continue DAPT, statin, beta-yi, and Imdur (3) Laryngeal mass: Obstructive laryngeal mass with pathology revealing moderately differentiated squamous cell carcinoma Will need to establish with medical oncology after she is recovered (4) COPD (chronic obstructive pulmonary disease): Continue breathing treatments (5) Hypertension: Hold Coreg Continue hydralazine Hold amlodipine Adjust analgesics as needed (6) Pneumonia: Strep pneumo pneumonia Continue Rocephin (05/07-present), will need to determine stop date soon Plan Sinus pauses: Holding beta-yi and other AV vivek blocking agents. Continuous telemetry monitoring. Acute kidney injury, resolved Acute diastolic CHF, resolved CODE STATUS: Full code DVT prophylaxis: Lovenox Attestations 2 Medical Necessity Statement*: Patient is status post no tracheostomy for obstructing laryngeal mass secondary to squamous cell carcinoma requiring ongoing hospitalization to continue respiratory support weaning, probable PEG tube placement, speech/occupational/physical therapies, serial labs, IV antibiotics, new tracheostomy care, telemetry, management of arrhythmias, and education, and supportive care. Coding Level of Care Code Acute Code for [facility] Fwd Diagnoses Acute respiratory failure with hypoxia and hypercapnia J96.01; J96.02 STEMI (ST elevation myocardial infarction) I21.3 Laryngeal mass J38.7 COPD (chronic obstructive pulmonary disease) J44.9 Hypertension I10 Pneumonia J18.9
[2024-05-19] MEDS: pantoprazole DR 40 mg Tablet PO (09:45)
[2024-05-19] MEDS: LORazepam 1 mg Tablet NG-TUBE ×2 (09:46→19:54)
--- NOTE | 2024-05-19 11:12 | P.CONIM_ITS ---
Providers/Reason For Consult 2 Consulting Physician/Specialty*: Dr. Kendall Ruano, DO/General Surgery Reason for Consult*: Request for PEG tube/laryngeal cancer Attending Physician: Sharif Wesley MD Primary Care Provider: GUY Garcia History of Present Illness History of Present Illness Yamileth Feliciano is a 49 year old female with laryngeal cancer and an obstructing mass who is currently in the ICU after getting a tracheostomy placed. She has been having difficulty eating and has requested a feeding tube. She denies any abdominal pain, nausea, emesis, diarrhea, constipation, hematochezia and/or melena Review of Systems 2 General: Reports: 10 or more systems reviewed and unremarkable except in HPI and below Medications/Allergies Home Medications Medication Instructions Recorded Confirmed Last Taken Type aspirin 81 mg tablet,delayed 81 mg PO DAILY #30 tabs 01/15/24 05/08/24 Unknown Rx release nicotine 14 mg/24 hr daily 1 patch transdermal DAILY #14 ea 01/15/24 05/08/24 Unknown Rx transdermal patch nicotine 21 mg/24 hr daily 1 patch transdermal DAILY #36 ea 01/15/24 05/08/24 Unknown Rx transdermal patch nicotine 7 mg/24 hr daily 1 patch transdermal DAILY #14 ea 01/15/24 05/08/24 Unknown Rx transdermal patch amlodipine 10 mg tablet 10 mg PO DAILY #90 tabs 02/15/24 05/08/24 Unknown Rx atorvastatin 40 mg tablet 40 mg PO BEDTIME #90 tabs 02/15/24 05/08/24 Unknown Rx metoprolol tartrate 25 mg tablet 25 mg PO BID@0900,2100 #180 tabs 02/15/24 05/08/24 Unknown Rx albuterol sulfate 90 mcg/actuation 2 inh inhalation Q6H PRN shortness 03/10/24 05/08/24 Unknown Rx aerosol inhaler of breath or wheezing #1 pump hydralazine 50 mg tablet See Rx Instructions .Route 03/28/24 05/08/24 Unknown Rx .COMPLEX #90 tabs albuterol sulfate 2.5 mg/3 mL 2.5 mg (3 mL) inhalation Q4H PRN 04/12/24 05/08/24 Unknown Rx (0.083 %) solution for nebulization shortness of breath or wheezing #90 mL budesonide 0.5 mg/2 mL suspension 0.5 mg inhalation BID PRN 05/08/24 05/08/24 Unknown History for nebulization Shortness Of Breath Allergies Allergy/AdvReac Type Severity Reaction Status Date / Time hydromorphone [From Dilaudid] Allergy ADR-Migrain Verified 03/10/24 17:29 e Current Medications Generic Name Dose Route Start Last Admin Trade Name Freq PRN Reason Stop Dose Admin Albuterol/Ipratropium 3 ml 05/07/24 04:00 05/19/24 08:32 Ipratropium-Albuterol 3 Ml Neb INHALATION 3 ml Q4H.RESPIRATORY PARDEEP Administration Amlodipine Besylate 10 mg 05/18/24 09:00 05/19/24 08:42 Amlodipine 5 Mg Tablet PO Not Given DAILY PARDEEP Aspirin 81 mg 05/07/24 09:00 05/19/24 08:41 Aspirin 81 Mg Ec Tablet PO 81 mg DAILY PARDEEP Administration Atorvastatin Calcium 80 mg 05/11/24 21:00 05/18/24 21:17 Atorvastatin 40 Mg Tablet PO 80 mg BEDTIME PARDEEP Administration Budesonide 0.5 mg 05/07/24 08:00 05/19/24 08:32 Budesonide 0.5 Mg/2 Ml Neb INHALATION 0.5 mg BID.RESPIRATORY PARDEEP Administration Ceftriaxone Sodium 1,000 mg 05/07/24 03:57 05/19/24 03:30 Ceftriaxone 1,000 Mg Sdv IVP 1,000 mg Q24H PARDEEP Administration Protocol Clopidogrel Bisulfate 75 mg 05/12/24 09:00 05/19/24 08:41 Clopidogrel 75 Mg Tablet PO 75 mg DAILY PARDEEP Administration Enoxaparin Sodium 40 mg 05/11/24 10:00 05/19/24 08:59 Enoxaparin 40 Mg/0.4 Ml Syringe SUBCUT 40 mg Q24H PARDEEP Administration Hydralazine HCl 10 mg 05/14/24 07:28 05/14/24 22:22 Hydralazine 20 Mg/Ml Inj 1 Ml IVP 10 mg Q4H PRN Administration HYPOCALCEMIA Hydralazine HCl 100 mg 05/17/24 15:00 05/19/24 08:41 Hydralazine 50 Mg Tablet PO 100 mg TID PARDEEP Administration Isosorbide Mononitrate 60 mg 05/14/24 09:00 05/19/24 08:41 Isosorbide Mononitrate Er 60 Mg Tablet PO 60 mg DAILY PARDEEP Administration Lanolin 1 applic 05/13/24 17:10 05/13/24 17:43 Lanolin Oint 7 Gm TOPICAL 1 applic PRN PRN Administration DRYNESS Lorazepam 1 mg 05/19/24 09:17 05/19/24 09:46 Lorazepam 1 Mg Tablet NG-TUBE 1 mg Q4H PRN Administration ANXIETY Pantoprazole Sodium 40 mg 05/19/24 09:30 05/19/24 09:[address] 40 Mg Tablet PO 40 mg DAILY PARDEEP Administration Potassium Phosphate 250 mg 05/16/24 09:00 05/19/24 08:41 Phosphorus 250 Mg Tablet NG-TUBE 250 mg BID PARDEEP Administration PFSH Acute 2 PFSH: Medical History COPD (chronic obstructive pulmonary disease) CKD (chronic kidney disease) Diastolic heart failure Hypertension Coronary artery disease Coronary angiogram from 01/13 showed moderate disease in LCx and LAD?negative on IFR Abnormal stress test Cannabis use disorder, mild, abuse Amphetamine use disorder, severe, dependence Bipolar disorder in full remission Bipolar disorder Social History Smoking and tobacco/nicotine status: current every day tobacco/nicotine user cigarettes Packs smoked per day: 1.5 Years cigarettes smoked: 30 Quit status (tobacco/nicotine): not considering quitting Second hand smoke exposure: Yes Current gender identity: Female Vitals/I&O/Wt Last Vital Signs Temp 98.8 F 05/19/24 04:00 Pulse 77 05/19/24 10:00 Resp 20 H 05/19/24 10:00 BP 128/73 05/19/24 10:00 Pulse Ox 91 05/19/24 10:00 O2 Del Method HAG 05/19/24 08:32 O2 Flow Rate 10 05/19/24 08:32 FiO2 40 05/19/24 08:32 05/18/24 05/19/24 05/19/24 22:59 06:59 14:59 Intake Total 1133 / 1133 545 / 1678 Output Total 500 / 500 1150 / 1650 Balance 633 / 633 -605 / 28 Weight last 48 hrs Weight 196 lb 3.382 oz Weight 215 lb Physical Exam 2 Narrative: General : Patient is well developed , no acute distress, oriented x3 Head : Normal cephalic, a-traumatic. Ears : Pinnae and external canal are normal. Hearing is normal. Eyes : PERRLA, Sclera and injection are normal. No conjunctival discharge. Nose : Mucous membranes are without erythema. Throat : buccal mucosa is normal, gums are without significant recession or hypertrophy. There is a tracheostomy tube in place Lungs : Equal chest rise bilaterally, no use of accessory muscles, trachea is midline. Cor : Rate and rhythm are normal. Abdomen : Soft, ND, NT, no g/r/m Extremities : No edema, no cyanosis or clubbing, dorsalis pedis pulses are present bilaterally, non-tender to palpation of calves. Upper extremities are normal bilaterally. Back : non-tender to palpation, no CVA tenderness. Neuro : CN II - XII intact, Upper and lower extremities have equal and full strength Urinary Catheter Management: Osorio: Cath Placed During This Visit: yes Reason for Continuing Indwelling Catheter: Accurate Measurement of Urinary Output in Critically Ill Patients Urinary Catheter Date of Insertion: 05/07/24 Urinary Catheter Time of Insertion: 04:21 Data 05/18/24 05:30 05/18/24 05:30 A&P Assessment and plan (1) Laryngeal mass: (2) Dysphagia: Plan Percutaneous endoscopic gastrostomy tube placement The risks and benefits of the procedure, including bleeding, infection, intestinal perforation requiring surgery, missed lesion, feeding tube malfunction, were explained to the patient. The patient is understanding of the risks and wishes to proceed. Coding Level of Care Code 43504 Diagnoses Laryngeal mass J38.7 Dysphagia R13.10
--- NOTE | 2024-05-19 12:34 | ANES.PREANE2 ---
Pre-Anesthetic Assessment Height/Weight: Height 1.65 m Weight 89 kg Temp Pulse Resp BP Pulse Ox O2 Del Method O2 Flow Rate 98.8 F 67 17 125/68 90 HAG 10 05/19/24 04:00 05/19/24 12:06 05/19/24 12:00 05/19/24 12:00 05/19/24 12:00 05/19/24 11:40 05/19/24 11:40 FiO2 40 05/19/24 11:40 Preop Diagnosis: ST elevation AR,laryngeal mass Operation Date: 05/11/24 13:00 Proposed Procedures p Cardiac Catheterization(Not Applicable) - Natalia Mauro MD Operation Date: 05/12/24 16:00 Proposed Procedures p Tracheostomy(Not Applicable) - Henrik Rocha MD s Direct Laryngoscopy(Not Applicable) - Henrik Rocha MD Operation Date: 05/19/24 12:45 Proposed Procedures p EGD(Not Applicable) - Kendall Ruano DO s PEG Tube Insertion(Not Applicable) - Kendall Ruano DO Familial anesthetic complications: None Last intake: > 8 hrs Social hx meth use Exam alert, oriented x 3, clear to auscultation bilaterally and regular rate & rhythm Airway Mallampati: Class IV Dentition: other (extremely poor dentition) Comments: Comments: Cuffed trach in place Pulmonary Chronic Obstructive Pulmonary Disease CV/HEM Arrythmia (significant bradycardia and sinus pauses with deep suctioning of trach ), Coronary Artery Disease, Congestive Heart Failure, Hypertension and Myocardial Infarction (AR w/in last week - CARMELO stent placed) Chronic Renal Insufficiency Anesthetic Plan ASA status: 4 Anesthesia: MAC Risk of > 500 ml blood loss (7ml/kg in children): No Medications/Allergies Home Medications Medication Instructions Recorded Confirmed Last Taken Type aspirin 81 mg tablet,delayed 81 mg PO DAILY #30 tabs 01/15/24 05/08/24 Unknown Rx release nicotine 14 mg/24 hr daily 1 patch transdermal DAILY #14 ea 01/15/24 05/08/24 Unknown Rx transdermal patch nicotine 21 mg/24 hr daily 1 patch transdermal DAILY #36 ea 01/15/24 05/08/24 Unknown Rx transdermal patch nicotine 7 mg/24 hr daily 1 patch transdermal DAILY #14 ea 01/15/24 05/08/24 Unknown Rx transdermal patch amlodipine 10 mg tablet 10 mg PO DAILY #90 tabs 02/15/24 05/08/24 Unknown Rx atorvastatin 40 mg tablet 40 mg PO BEDTIME #90 tabs 02/15/24 05/08/24 Unknown Rx metoprolol tartrate 25 mg tablet 25 mg PO BID@0900,2100 #180 tabs 02/15/24 05/08/24 Unknown Rx albuterol sulfate 90 mcg/actuation 2 inh inhalation Q6H PRN shortness 03/10/24 05/08/24 Unknown Rx aerosol inhaler of breath or wheezing #1 pump hydralazine 50 mg tablet See Rx Instructions .Route 03/28/24 05/08/24 Unknown Rx .COMPLEX #90 tabs albuterol sulfate 2.5 mg/3 mL 2.5 mg (3 mL) inhalation Q4H PRN 04/12/24 05/08/24 Unknown Rx (0.083 %) solution for nebulization shortness of breath or wheezing #90 mL budesonide 0.5 mg/2 mL suspension 0.5 mg inhalation BID PRN 05/08/24 05/08/24 Unknown History for nebulization Shortness Of Breath Allergies Allergy/AdvReac Type Severity Reaction Status Date / Time hydromorphone [From Dilaudid] Allergy ADR-Migrain Verified 03/10/24 17:29 e Current Medications Generic Name Dose Route Start Last Admin Trade Name Freq PRN Reason Stop Dose Admin Albuterol/Ipratropium 3 ml 05/07/24 04:00 05/19/24 11:39 Ipratropium-Albuterol 3 Ml Neb INHALATION 3 ml Q4H.RESPIRATORY PARDEEP Administration Amlodipine Besylate 10 mg 05/18/24 09:00 05/19/24 08:42 Amlodipine 5 Mg Tablet PO Not Given DAILY PARDEEP Aspirin 81 mg 05/07/24 09:00 05/19/24 08:41 Aspirin 81 Mg Ec Tablet PO 81 mg DAILY PARDEEP Administration Atorvastatin Calcium 80 mg 05/11/24 21:00 05/18/24 21:17 Atorvastatin 40 Mg Tablet PO 80 mg BEDTIME PARDEEP Administration Budesonide 0.5 mg 05/07/24 08:00 05/19/24 08:32 Budesonide 0.5 Mg/2 Ml Neb INHALATION 0.5 mg BID.RESPIRATORY PARDEEP Administration Ceftriaxone Sodium 1,000 mg 05/07/24 03:57 05/19/24 03:30 Ceftriaxone 1,000 Mg Sdv IVP 1,000 mg Q24H PARDEEP Administration Protocol Clopidogrel Bisulfate 75 mg 05/12/24 09:00 05/19/24 08:41 Clopidogrel 75 Mg Tablet PO 75 mg DAILY PARDEEP Administration Enoxaparin Sodium 40 mg 05/11/24 10:00 05/19/24 08:59 Enoxaparin 40 Mg/0.4 Ml Syringe SUBCUT 40 mg Q24H PARDEEP Administration Hydralazine HCl 10 mg 05/14/24 07:28 05/14/24 22:22 Hydralazine 20 Mg/Ml Inj 1 Ml IVP 10 mg Q4H PRN Administration HYPOCALCEMIA Hydralazine HCl 100 mg 05/17/24 15:00 05/19/24 08:41 Hydralazine 50 Mg Tablet PO 100 mg TID PARDEEP Administration Isosorbide Mononitrate 60 mg 05/14/24 09:00 05/19/24 08:41 Isosorbide Mononitrate Er 60 Mg Tablet PO 60 mg DAILY PARDEEP Administration Lanolin 1 applic 05/13/24 17:10 05/13/24 17:43 Lanolin Oint 7 Gm TOPICAL 1 applic PRN PRN Administration DRYNESS Lorazepam 1 mg 05/19/24 09:17 05/19/24 09:46 Lorazepam 1 Mg Tablet NG-TUBE 1 mg Q4H PRN Administration ANXIETY Pantoprazole Sodium 40 mg 05/19/24 09:30 05/19/24 09:[address] 40 Mg Tablet PO 40 mg DAILY PARDEEP Administration Potassium Phosphate 250 mg 05/16/24 09:00 05/19/24 08:41 Phosphorus 250 Mg Tablet NG-TUBE 250 mg BID PARDEEP Administration PFSH Anesthesia Medical History COPD (chronic obstructive pulmonary disease) CKD (chronic kidney disease) Diastolic heart failure Hypertension Coronary artery disease Coronary angiogram from 01/13 showed moderate disease in LCx and LAD?negative on IFR Abnormal stress test Cannabis use disorder, mild, abuse Amphetamine use disorder, severe, dependence Bipolar disorder in full remission Bipolar disorder Social History Smoking and tobacco/nicotine status: current every day tobacco/nicotine user cigarettes Packs smoked per day: 1.5 Years cigarettes smoked: 30 Quit status (tobacco/nicotine): not considering quitting Second hand smoke exposure: Yes Current gender identity: Female Data Anesthesia 05/18/24 05:30 05/18/24 05:30 Short CBC 05/18/24 Range/Units 05:30 WBC 8.74 (3.29-11.43) 10^3/uL Hgb 10.40 L (11.27-16.99) g/dL Hct 33.9 L (36-47) % MCV 97.7 (85-98) fl Plt Count 166 (157-399) 10^3/cmm Neut % (Auto) 82.9 % Neut # (Auto) 7.25 (1.8-7.7) 10^3/uL BMP 05/18/24 05:30 Sodium 140 Potassium 4.0 Chloride 102 Carbon Dioxide 31 H BUN 15 Creatinine 0.7 Glucose 137 H Calcium 8.3 L Liver Function 05/18/24 Range/Units 05:30 Albumin 2.6 L (3.5-5.2) g/dL Cardiac Studies: Echocardiogram 05/07/24 Echocardiogram Limited Views 04/20/24 Sestamibi Stress Test (Cardiology) 01/11/24
--- NOTE | 2024-05-19 13:05 | PC.SLP ---
Speech treatment not provided; patient having g tube placed according to nursing.
--- NOTE | 2024-05-19 14:05 | PM.OP ---
Operative Report Date of procedure: May 19, 2024 Pre-op diagnosis: Laryngeal mass Dysphagia Post-op diagnosis: same Procedure done: Percutaneous endoscopic gastrostomy tube placement Implants: 20 Upper Sorbian PEG tube Specimens removed/disposition: None Surgeon: Kendall Ruano DO Anesthesia: MAC and Local Estimated blood loss (mL): 5 Complications: None apparent Brief History: This is a very pleasant 49-year-old female with laryngeal mass that is obstructing her airway and causing dysphagia. Percutaneous endoscopic gastrostomy tube placement was indicated. The risks and benefits were explained and documented. Procedure: Patient remained in her ICU bed in the supine position. Propofol sedation was achieved by the department anesthesia. A timeout was performed. All present were in agreement. The endoscope was then placed in the patient's mouth and down the esophagus into the stomach. The stomach was insufflated and the abdominal wall and stomach were transilluminated. An 11 blade scalpel was used to make a 6 mm incision at the skin after localizing with lidocaine. An introducer needle was then placed into the stomach through the abdomen. Guidewire was then placed through the needle and snared with the endoscope. The wire was pulled out through the mouth. The wire was attached to the PEG tube and then pulled back through the mouth and out of the abdominal wall. The button was then placed onto the PEG tube. The PEG tube was cut and the end was attached. Patient tolerated procedure well.
[2024-05-19] MEDS: atorvastatin 40 mg Tablet 80 MG PO (19:53)
[2024-05-20] VITALS (26 sets, daily range): BP systolic 108–151; BP diastolic 49–86; PULSE 71–97; RESP 16–27; TEMP 36.7–37.4; O2SAT 89–95
[2024-05-20] MEDS: ipratropium-albuterol 3 mL Neb INHALATION ×6 (00:03→19:54)
[2024-05-20] MEDS: acetaminophen 325 mg Tablet 650 MG PO ×2 (00:10→10:26)
[2024-05-20] MEDS: LORazepam 1 mg Tablet NG-TUBE ×5 (00:11→21:18)
[2024-05-20] MEDS: cefTRIAXone 1,000 mg SDV 1000 MG IVP (03:58)
[2024-05-20 04:15] LABS: Basophils % 0.3 %; Eosinophils % 0.2 %; Hematocrit 30.9 % (36-47); Lymphocytes % 10.9 %; Mean Corpuscular HGB Conc 31.4 g/dL (30-55); Mean Corpuscular Hemoglobin 30.4 pg (27-33); Mean Corpuscular Volume 96.9 fl (85-98); Mean Platelet Volume 10.2 fL (7.4-10.4); Monocytes # 0.5 10^3/uL (0.2-0.9); Monocytes % 5.4 %; Neutrophils # 7.71 10^3/uL (1.8-7.7); Neutrophils % 82.9 %; Nucleated Red Blood Cells % 0 %; Platelet Count 138 10^3/cmm (157-399); Red Blood Count 3.19 10^6/uL (3.85-5.65); Red Cell Distribution Width 13.7 % (12.1-15.1)
[2024-05-20 04:37] LABS: Albumin Level 2.4 g/dL (3.5-5.2); Anion Gap 11.1 (5-19); Blood Urea Nitrogen 14 mg/dL (6-20); Calcium 8.3 mg/dL (8.5-10.5); Carbon Dioxide 30 mmol/L (22-29); Chloride 101 mmol/L (98-107); Creatinine Clr Calc Pharmacy 91.6731; Glomerular Filtration Rate 75.6 mL/min (90-130); Glucose 84 mg/dL (65-115); Magnesium 1.8 mg/dL (1.7-2.3); Phosphorus 2.9 mg/dL (2.5-4.5); Potassium 4.1 mmol/L (3.5-5.1); Sodium 138 mmol/L (136-145)
[2024-05-20] MEDS: budesonide 0.5 mg/2 mL Neb INHALATION ×2 (07:50→19:54)
[2024-05-20] MEDS: isosorbide mononitrate ER 60 mg Tablet PO (08:45)
[2024-05-20] MEDS: aspirin 81 mg EC Tablet PO (08:45)
[2024-05-20] MEDS: amlodipine 5 mg Tablet 10 MG PO (08:46)
[2024-05-20] MEDS: clopidogrel 75 mg Tablet PO (08:46)
[2024-05-20] MEDS: hyDRALAzine 50 mg Tablet 100 MG PO ×3 (08:46→21:18)
[2024-05-20] MEDS: pantoprazole DR 40 mg Tablet PO (08:46)
[2024-05-20] MEDS: phosphorus 250 mg Tablet NG-TUBE (08:46)
[2024-05-20] MEDS: enoxaparin 40 mg/0.4 mL Syringe SUBCUT (09:13)
--- NOTE | 2024-05-20 09:49 | P.PN_ITS ---
Subjective 2 Subjective: Patient received PEG tube. Should be able to use this afternoon after 24 hours after insertion. Will remove NG tube today. She reports overall she is doing okay. She does have vagal episodes with deep suctioning. Denies fevers, chills, or chest pains. Discussed plan of care. Medications: Reviewed: Yes Vitals/I&O/Wt Last Vital Signs Temp 99.0 F 05/20/24 08:00 Pulse 73 05/20/24 08:00 Resp 21 H 05/20/24 08:00 BP 149/71 05/20/24 08:00 Pulse Ox 90 05/20/24 08:00 O2 Del Method HAG 05/20/24 07:50 O2 Flow Rate 10 05/20/24 07:50 FiO2 40 05/20/24 07:50 05/19/24 05/20/24 05/20/24 22:59 06:59 14:59 Intake Total 150 / 150 Output Total 1000 / 1000 950 / 1950 Balance -1000 / -1000 -800 / -1800 Weight last 48 hrs Weight 88 kg Weight 89 kg Physical Exam 2 Narrative: General: Patient is awake and alert. Chronically ill-appearing. Pleasant. Head: Normocephalic. Atraumatic. EOM intact. NGT. Neck: Trach. Cardiovascular: RRR. No gallops. No murmurs. Lungs: Adequate air movement. No wheezing. No rales. No crackles. Tracheostomy with collar support in place. Skin: No jaundice. No rashes. Abdomen: Normal bowel sounds, abdomen soft and nontender. PEG tube. Extremities: No cyanosis or clubbing. Musculoskeletal: No swollen or erythematous joints. Neurological: Moves all 4 extremities. No myoclonus. Urinary Catheter Management: Osorio: Cath Placed During This Visit: yes Reason for Continuing Indwelling Catheter: Accurate Measurement of Urinary Output in Critically Ill Patients Urinary Catheter Date of Insertion: 05/07/24 Urinary Catheter Time of Insertion: 04:21 Data 05/20/24 03:56 05/20/24 03:56 A&P Assessment and plan (1) Acute respiratory failure with hypoxia and hypercapnia: Status post tracheostomy on 05/12 Status post PEG tube placement on 05/19 ENT following, appreciate recommendations Routine trach care Morphine per tube as needed for air hunger Ativan for anxiety We will plan to remove the NG tube this afternoon after 24 hours from PEG tube placement Awaiting placement at LTAC (2) STEMI (ST elevation myocardial infarction): Status post PCI with stent on 05/11 Continue DAPT, statin, beta-yi, and Imdur (3) Laryngeal mass: 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 Continuous telemetry monitoring. Acute kidney injury, resolved Acute diastolic CHF, resolved CODE STATUS: Full code DVT prophylaxis: Lovenox Attestations 2 Medical Necessity Statement*: Patient is status post tracheostomy for obstructing laryngeal mass secondary to squamous cell carcinoma requiring ongoing hospitalization to continue respiratory support weaning, initiation of tube feeds via PEG tube, speech/occupational/physical therapies, serial labs, IV antibiotics, new tracheostomy care, telemetry, management of arrhythmias, education, and supportive care. Coding Level of Care Code Acute Code for [facility] Diagnoses Acute respiratory failure with hypoxia and hypercapnia J96.01; J96.02 STEMI (ST elevation myocardial infarction) I21.3 Laryngeal mass J38.7 COPD (chronic obstructive pulmonary disease) J44.9 Hypertension I10 Pneumonia J18.9
--- NOTE | 2024-05-20 11:30 | P.PN_ITS ---
Subjective 2 Subjective: Patient seen and examined. Pain controlled. No complaints Vitals/I&O/Wt Last Vital Signs Temp 99.0 F 05/20/24 08:00 Pulse 91 05/20/24 10:00 Resp 23 H 05/20/24 10:00 BP 151/86 05/20/24 10:00 Pulse Ox 92 05/20/24 10:00 O2 Del Method HAG 05/20/24 07:50 O2 Flow Rate 10 05/20/24 07:50 FiO2 40 05/20/24 07:50 05/19/24 05/20/24 05/20/24 22:59 06:59 14:59 Intake Total 150 / 150 Output Total 1000 / 1000 950 / 1950 Balance -1000 / -1000 -800 / -1800 Weight last 48 hrs Weight 194 lb 0.108 oz Weight 196 lb 3.382 oz Physical Exam 2 Narrative: General: No acute distress, awake alert and oriented x 3 Abdomen: Soft, nondistended, appropriate mild tenderness around PEG tube insertion site which is clean and intact Urinary Catheter Management: Osorio: Cath Placed During This Visit: yes Reason for Continuing Indwelling Catheter: Accurate Measurement of Urinary Output in Critically Ill Patients Urinary Catheter Date of Insertion: 05/07/24 Urinary Catheter Time of Insertion: 04:21 Data 05/20/24 03:56 05/20/24 03:56 A&P Assessment and plan (1) Laryngeal mass: (2) Dysphagia: Plan Postoperative day #1 status post percutaneous endoscopic gastrostomy tube placement NG tube may be removed and PEG tube may be used at 1 PM. Since patient previously tolerated tube feedings, tube feeding can be started at goal. Medical management per hospitalist Attestations 2 Medical Necessity Statement*: Per primary Coding Level of Care Code 61908 Diagnoses Laryngeal mass J38.7 Dysphagia R13.10
[2024-05-20] MEDS: morphine 10 mg/0.5 mL oral liq UD 5 MG PO ×4 (15:00→22:01)
--- NOTE | 2024-05-20 15:29 | PC.NURSE ---
Transfer Note Patient transferred to [facility] from ICU via bed. Handoff report given to DANICA Perry. Patient oriented to environment and equipment. Covering service notified. Orders reviewed and will continue to monitor. Upon transfer patient is alert/oriented x4, tube feedings infusing per orders. All patient belongings including clothing, shoes, coloring books, cards transferred with patient and placed at bedside.
[2024-05-20] MEDS: atorvastatin 40 mg Tablet 80 MG PO (21:18)
[2024-05-21] VITALS (15 sets, daily range): BP systolic 120–134; BP diastolic 57–78; PULSE 79–94; RESP 16–24; TEMP 36.7–37.7; O2SAT 88–94
[2024-05-21] MEDS: morphine 10 mg/0.5 mL oral liq UD 5 MG PO ×6 (00:02→19:44)
[2024-05-21] MEDS: ipratropium-albuterol 3 mL Neb INHALATION ×7 (00:31→23:38)
[2024-05-21] MEDS: LORazepam 1 mg Tablet NG-TUBE ×5 (01:24→22:14)
[2024-05-21] MEDS: cefTRIAXone 1,000 mg SDV 1000 MG IVP (03:16)
[2024-05-21] MEDS: budesonide 0.5 mg/2 mL Neb INHALATION ×2 (07:21→20:17)
[2024-05-21] MEDS: amlodipine 5 mg Tablet 10 MG PO (09:30)
[2024-05-21] MEDS: clopidogrel 75 mg Tablet PO (09:30)
[2024-05-21] MEDS: aspirin 81 mg EC Tablet PO (09:30)
[2024-05-21] MEDS: pantoprazole DR 40 mg Tablet PO (09:30)
[2024-05-21] MEDS: enoxaparin 40 mg/0.4 mL Syringe SUBCUT (09:30)
[2024-05-21] MEDS: isosorbide mononitrate ER 60 mg Tablet PO (09:30)
--- NOTE | 2024-05-21 09:39 | P.PN_ITS ---
Subjective 2 Subjective: Patient seen and examined. Currently tolerating tube feeding at 20 cc/h. Denies any abdominal pain Vitals/I&O/Wt Last Vital Signs Temp 98.9 F 05/21/24 04:00 Pulse 85 05/21/24 07:21 Resp 24 H 05/21/24 07:21 BP 122/72 05/21/24 04:00 Pulse Ox 90 05/21/24 07:21 O2 Del Method HAG 05/21/24 07:21 O2 Flow Rate 10 05/21/24 07:21 FiO2 40 05/21/24 07:21 05/20/24 05/21/24 05/21/24 22:59 06:59 14:59 Output Total 1525 / 1525 Balance -1525 / -1525 Weight last 48 hrs Weight 181 lb 14.102 oz Weight 194 lb 0.108 oz Physical Exam 2 Narrative: General: No acute distress, awake alert and oriented x 3 Abdomen: Soft, nondistended, appropriate mild tenderness around PEG tube insertion site which is clean and intact Urinary Catheter Management: Osorio: Cath Placed During This Visit: yes Reason for Continuing Indwelling Catheter: Other Urinary Catheter Date of Insertion: 05/07/24 Urinary Catheter Time of Insertion: 04:21 Data 05/20/24 03:56 05/20/24 03:56 A&P Assessment and plan (1) Laryngeal mass: (2) Dysphagia: Plan Postoperative day #2 status post percutaneous endoscopic gastrostomy tube placement Okay to advance tube feeding to goal. General Surgery will sign off. Please reconsult if the need arises Medical management per hospitalist Attestations 2 Medical Necessity Statement*: Per primary Coding Level of Care Code 71435 Diagnoses Laryngeal mass J38.7 Dysphagia R13.10
--- NOTE | 2024-05-21 11:08 | PC.NURSE ---
PEG feeding paused and tubing flushed with 35mL water, 30mL of water mixed with medications then flushed with 35mL after medication administration for a total amount of 100mL. Tube feeds resumed following administration of medications. pt tolerated well. Intake charted.
--- NOTE | 2024-05-21 12:17 | P.PN_ITS ---
Subjective 2 Subjective: Patient initially sleeping, awakens to voice. She denies any complaints this morning. NG tube removed yesterday and she is tolerating tube feeds at 20 mL/h via PEG tube. Will plan to increase this as tolerated. She denies other new complaints including fevers, chills, nausea or emesis. Medications: Reviewed: Yes Vitals/I&O/Wt Last Vital Signs Temp 99.9 F H 05/21/24 11:23 Pulse 79 05/21/24 11:33 Resp 24 H 05/21/24 11:33 BP 131/78 05/21/24 11:23 Pulse Ox 92 05/21/24 11:33 O2 Del Method HAG 05/21/24 11:33 O2 Flow Rate 10 05/21/24 11:33 FiO2 40 05/21/24 11:33 05/20/24 05/21/24 05/21/24 22:59 06:59 14:59 Intake Total 100 / 100 Output Total 1525 / 1525 Balance -1525 / -1525 100 / 100 Weight last 48 hrs Weight 82.5 kg Weight 88 kg Physical Exam 2 Narrative: General: Patient is sleeping, awakens to voice. Chronically ill-appearing. Pleasant. Head: Normocephalic. Atraumatic. EOM intact. Neck: Trach. Cardiovascular: RRR. No gallops. No murmurs. Lungs: Adequate air movement. No wheezing. No rales. No crackles. Tracheostomy. Skin: No jaundice. No rashes. Abdomen: Normal bowel sounds, abdomen soft and nontender. PEG tube. Extremities: No cyanosis or clubbing. Musculoskeletal: No swollen or erythematous joints. Neurological: Moves all 4 extremities. No myoclonus. Urinary Catheter Management: Osorio: Cath Placed During This Visit: yes Reason for Continuing Indwelling Catheter: Other Urinary Catheter Date of Insertion: 05/07/24 Urinary Catheter Time of Insertion: 04:21 Data 05/20/24 03:56 05/20/24 03:56 A&P Assessment and plan (1) Acute respiratory failure with hypoxia and hypercapnia: Status post tracheostomy on 05/12 Status post PEG tube placement on 05/19 Routine trach care Morphine per tube as needed for air hunger Ativan per tube as needed for anxiety Awaiting placement at LTAC, hopefully Wednesday (2) STEMI (ST elevation myocardial infarction): Status post PCI with stent on 05/11 Continue DAPT, statin, beta-yi, and Imdur (3) Laryngeal mass: 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 Continues telemetry monitoring. Acute kidney injury, resolved Acute diastolic CHF, resolved CODE STATUS: Full code DVT prophylaxis: Lovenox Attestations 2 Medical Necessity Statement*: Patient is status post tracheostomy for obstructing laryngeal mass secondary to squamous cell carcinoma requiring ongoing hospitalization to continue respiratory support weaning, titration of tube feeds via PEG tube, speech/occupational/physical therapies, serial labs, new tracheostomy care, telemetry, management of arrhythmias, education, and supportive care. Coding Level of Care Code Acute Code for [facility] Diagnoses Acute respiratory failure with hypoxia and hypercapnia J96.01; J96.02 STEMI (ST elevation myocardial infarction) I21.3 Laryngeal mass J38.7 COPD (chronic obstructive pulmonary disease) J44.9 Hypertension I10 Pneumonia J18.9
--- NOTE | 2024-05-21 12:32 | P.PN_ITS ---
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 The patient is POD #9 s/p tracheotomy. There are no new c/o from this standpoint. Vitals/I&O/Wt Last Vital Signs Temp 99.9 F H 05/21/24 11:23 Pulse 79 05/21/24 11:33 Resp 24 H 05/21/24 11:33 BP 131/78 05/21/24 11:23 Pulse Ox 92 05/21/24 11:33 O2 Del Method HAG 05/21/24 11:33 O2 Flow Rate 10 05/21/24 11:33 FiO2 40 05/21/24 11:33 05/20/24 05/21/24 05/21/24 22:59 06:59 14:59 Intake Total 100 / 100 Output Total 1525 / 1525 Balance -1525 / -1525 100 / 100 Weight last 48 hrs Weight 82.5 kg Weight 88 kg Physical Exam 2 Const: COMMON NORMALS: no acute distress and alert HENMT: COMMON NORMALS: normocephalic, atraumatic and Normal external nose present HEAD & SCALP: normocephalic and atraumatic FACE & SINUS: normal facial exam and face symmetric NOSE: Normal external nose present and Normal nares present Eye: COMMON NORMALS: no scleral icterus Neck/C-Spine: COMMON NORMALS: full ROM and no lymphadenopathy GENERAL: Yes trachea midline and Yes tracheostomy present (No erythema or discharge present; healing normally.) Neuro: SENSORIUM/ORIENTATION: Yes alert Urinary Catheter Management: Osorio: Cath Placed During This Visit: yes Reason for Continuing Indwelling Catheter: Other Urinary Catheter Date of Insertion: 05/07/24 Urinary Catheter Time of Insertion: 04:21 Data 05/20/24 03:56 05/20/24 03:56 A&P Assessment and plan (1) Cancer of larynx: Impression: 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 Rocha for any problems with the tracheotomy - We will arrange for management of the patient's laryngeal SCCA after discharge. - I will sign off from inpatient care - contact me for any problems (2) Hypoxic respiratory failure: See the above Attestations 2 Medical Necessity Statement*: I was consulted to assist in airway management Coding Level of Care Code Acute Code for [facility] Diagnoses Cancer of larynx C32.9 Hypoxic respiratory failure J96.91
--- NOTE | 2024-05-21 14:20 | PC.NUTR ---
Pt received PEG tube. For continous PEG tube feeding, recommend Jevity 1.5 with goal rate of 40 ml/hr and FWF of 125mls Q6H or per MD discretion. For bolus feeds, recommend 1 carton Jevity 1.5 (240mls), with 60 mls FWF before and after, given @ 8am/ noon/ 4pm/ 8pm, for a total of 4 cartons/day.
[2024-05-21] MEDS: atorvastatin 40 mg Tablet 80 MG PO (19:50)
--- NOTE | 2024-05-21 20:09 | PC.NURSE ---
Pt had hydralazine 100mg TID ordered. Contacted Dr. Swartz via [facility] at 1948 to see if he wanted the dose held since pt's blood pressure at 1944 was 126/75. Ameena replied and said administer half the dose. Hydralazine 50mg was crushed and administered via PEG tube with ordered lipitor.
[2024-05-21] MEDS: hyDRALAzine 50 mg Tablet PO (20:56)
[2024-05-22] VITALS (13 sets, daily range): BP systolic 106–119; BP diastolic 64–69; PULSE 71–95; RESP 16–22; TEMP 36.5–37.3; O2SAT 90–95
[2024-05-22] MEDS: guaiFENesin 600 mg Tablet PEG-TUBE ×3 (01:17→17:39)
[2024-05-22] MEDS: morphine 10 mg/0.5 mL oral liq UD 5 MG PO ×2 (02:10→06:19)
[2024-05-22] MEDS: ipratropium-albuterol 3 mL Neb INHALATION ×5 (03:43→19:56)
[2024-05-22] MEDS: LORazepam 1 mg Tablet NG-TUBE ×3 (06:20→20:19)
[2024-05-22] MEDS: budesonide 0.5 mg/2 mL Neb INHALATION ×2 (07:39→19:56)
[2024-05-22] MEDS: clopidogrel 75 mg Tablet PO (09:20)
[2024-05-22] MEDS: amlodipine 5 mg Tablet 10 MG PO (09:20)
[2024-05-22] MEDS: aspirin 81 mg EC Tablet PO (09:20)
[2024-05-22] MEDS: pantoprazole DR 40 mg Tablet PO (09:21)
[2024-05-22] MEDS: isosorbide mononitrate ER 60 mg Tablet PO (09:21)
[2024-05-22] MEDS: hyDRALAzine 50 mg Tablet 100 MG PO ×2 (09:21→15:58)
[2024-05-22] MEDS: enoxaparin 40 mg/0.4 mL Syringe SUBCUT (09:22)
[2024-05-22 13:30] LABS: Basophils % 0.3 %; Eosinophils % 0.1 %; Hematocrit 30.5 % (36-47); Lymphocytes # 0.9 10^3/uL (0.8-4.8); Lymphocytes % 11.4 %; Mean Corpuscular HGB Conc 32.1 g/dL (30-55); Mean Corpuscular Hemoglobin 30.7 pg (27-33); Mean Corpuscular Volume 95.6 fl (85-98); Mean Platelet Volume 10.2 fL (7.4-10.4); Monocytes # 0.5 10^3/uL (0.2-0.9); Monocytes % 7.1 %; Neutrophils % 80.7 %; Nucleated Red Blood Cells % 0 %; Platelet Count 151 10^3/cmm (157-399); Red Blood Count 3.19 10^6/uL (3.85-5.65); Red Cell Distribution Width 13.3 % (12.1-15.1); White Blood Count 7.44 10^3/uL (3.29-11.43)
[2024-05-22 13:42] LABS: Alanine Aminotransferase 23 U/L (0-33); Albumin Level 2.6 g/dL (3.5-5.2); Alkaline Phosphatase 57 U/L (35-105); Anion Gap 7.9 (5-19); Aspartate Amino Transferase 26 U/L (0-32); Blood Urea Nitrogen 12 mg/dL (6-20); Calcium 8.4 mg/dL (8.5-10.5); Carbon Dioxide 34 mmol/L (22-29); Chloride 99 mmol/L (98-107); Creatinine Clr Calc Pharmacy 93.2906; Globulin 2.9 g/dL (1.3-4.6); Glomerular Filtration Rate 75.6 mL/min (90-130); Glucose 171 mg/dL (65-115); Osmolality Calculated 288 mOsm/kg (285-295); Potassium 3.9 mmol/L (3.5-5.1); Sodium 137 mmol/L (136-145); Total Bilirubin 0.4 mg/dL (0.15-1.2); Total Protein 5.5 g/dL (6.6-8.7)
--- NOTE | 2024-05-22 14:42 | P.PN_ITS ---
Subjective 2 Subjective: Hospital course, labs appreciated. Examination patient laying comfortably in bed with spouse at bedside. Currently on 10 L of HAG. Denies any nausea, vomiting, headache or abdominal pain. Tolerating 40 cc/h of tube feeds. Medications: Reviewed: Yes Vitals/I&O/Wt Last Vital Signs Temp 97.7 F 05/22/24 12:00 Pulse 76 05/22/24 12:00 Resp 20 H 05/22/24 12:00 BP 106/64 05/22/24 12:00 Pulse Ox 92 05/22/24 12:00 O2 Del Method HAG 05/22/24 11:47 O2 Flow Rate 10 05/22/24 11:47 FiO2 40 05/22/24 11:47 05/21/24 05/22/24 05/22/24 22:59 06:59 14:59 Intake Total 100 / 200 610 / 810 Output Total 900 / 900 Balance 100 / 200 -290 / -90 Weight last 48 hrs Weight 92.079 kg Weight 82.5 kg Physical Exam 2 Narrative: General: Patient is sleeping, awakens to voice. Chronically ill-appearing. Pleasant. Head: Normocephalic. Atraumatic. EOM intact. Neck: Trach. Cardiovascular: RRR. No gallops. No murmurs. Lungs: Adequate air movement. No wheezing. No rales. No crackles. Tracheostomy. Skin: No jaundice. No rashes. Abdomen: Normal bowel sounds, abdomen soft and nontender. PEG tube. Extremities: No cyanosis or clubbing. Musculoskeletal: No swollen or erythematous joints. Neurological: Moves all 4 extremities. No myoclonus. Const: COMMON NORMALS: no acute distress GENERAL APPEARANCE: cooperative and patient mechanically ventilated OTHER: Currently intubated, sedated on mechanical ventilation, endotracheal tube in place, right internal jugular venous catheter in place HENMT: COMMON NORMALS: normocephalic and oropharynx normal HEAD & SCALP: n ormocephalic Eye: OTHER: Pupils equal round reactive to light Neck/C-Spine: COMMON NORMALS: no JVD Resp: COMMON NORMALS: normal respiratory effort, No retractions and No use of accessory muscles AUSCULTATION: wheezes and diminished lung sounds Cardio: COMMON NORMALS: no JVD, regular rate, regular rhythm, S1 normal heart sound present, S2 normal heart sound present and No murmurs present (Cardio) RATE: regular rate RHYTHM: regular rhythm HEART SOUNDS: S1 normal heart sound present and S2 normal heart sound present GI: COMMON NORMALS: Normal to inspection, nondistended, normoactive bowel sounds present, Soft to palpation and non-tender PALPATION: Yes Soft to palpation Extremity: COMMON NORMALS: no joint enlargement, no calf tenderness and no pedal edema Neuro: COMMON NORMALS: moves all extremities Skin: COMMON NORMALS: no rashes or lesions noted GENERAL SKIN EXAM: no rashes or lesions noted Urinary Catheter Management: Osorio: Cath Placed During This Visit: yes Reason for Continuing Indwelling Catheter: Accurate Measurement of Urinary Output in Critically Ill Patients Urinary Catheter Date of Insertion: 05/07/24 Urinary Catheter Time of Insertion: 04:21 Data 05/22/24 13:12 05/22/24 13:12 A&P Assessment and plan (1) Acute respiratory failure with hypoxia and hypercapnia: In setting of laryngeal mass. Postbiopsy. 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 Status post tracheostomy on 05/12. First trach change performed on 05/21. Status post PEG tube placement on 05/19 Routine trach care Morphine per tube as needed for air hunger Ativan per tube as needed for anxiety Awaiting placement at LTAC, hopefully Wednesday Continue with tube feeds. Currently at 40 cc/h. Uptitrate as per goal as per dietitian. (2) STEMI (ST elevation myocardial infarction): Status post PCI with stent on 05/11. Denies any chest pain. Last echocardiogram from 05/07 showed an EF of 60 to 65%, grade 1 diastolic function, mild MR, mildly elevated gradient across aortic valve at 17 mmHg with mild aortic stenosis, mild TR. 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 Continue with hydralazine and amlodipine along with Imdur. Holding off on beta- yi given concerns for sinus pauses during deeps function in setting of vasovagal events. Uptitrate accordingly. (6) Pneumonia: Strep pneumo pneumonia Discontinue Rocephin (05/07-05/21) Plan Sinus pauses secondary to vasovagal events during deep suctioning: Holding beta- yi and calcium channel yi. Continues telemetry monitoring. Acute kidney injury, resolved Acute diastolic CHF, resolved CODE STATUS: Full code DVT prophylaxis: Lovenox Discharge plan: Plan to discharge to LTAC once bed is available. Patient is agreeable. Lab holiday tomorrow. Attestations 2 Medical Necessity Statement*: Requires further hospitalization for management of acute hypoxic respiratory failure in setting of laryngeal mass postbiopsy and tracheostomy with concerns for SCC, PEG tube placement, non-ST elevation [place] with emergent PCI while safe discharge planning is sought Diagnoses Acute respiratory failure with hypoxia and hypercapnia J96.01; J96.02 STEMI (ST elevation myocardial infarction) I21.3 Laryngeal mass J38.7 COPD (chronic obstructive pulmonary disease) J44.9 Hypertension I10 Pneumonia J18.9
[2024-05-22] MEDS: magnesium hydroxide 30 mL UDC PO (15:58)
[2024-05-22] MEDS: acetaminophen 325 mg Tablet 650 MG PO (17:39)
== END 2024-05-22 20:41 | DRG 3 ==
LOC: ER 02:05 → ICU 02:48 → MEDSURG 05-20 14:47
PROVIDERS: Internal Medicine; Internal Medicine Cardiovascular Disease; Specialist; Surgery; Admitting Provider Family Medicine; Emergency Provider Emergency Medicine; PCP Nurse Practitioner Family; Visit Provider Student in an Organized Health Care Education/Training Program
PROC: 027034Z Dilation of Coronary Artery, One Artery with Drug-eluting Intraluminal Device, Percutaneous Approach (ICD-10-PCS; principal; 2024-05-11 13:00)
PROC: 027034Z Dilation of Coronary Artery, One Artery with Drug-eluting Intraluminal Device, Percutaneous Approach (ICD-10-PCS; 2024-05-11 13:00)
PROC: 0CBS8ZX Excision of Larynx, Via Natural or Artificial Opening Endoscopic, Diagnostic (ICD-10-PCS; principal; 2024-05-12 16:00)
PROC: 0CJS8ZZ Inspection of Larynx, Via Natural or Artificial Opening Endoscopic (ICD-10-PCS; 2024-05-12 16:00)
PROC: 0DJ08ZZ Inspection of Upper Intestinal Tract, Via Natural or Artificial Opening Endoscopic (ICD-10-PCS; CPT 43235; principal; 2024-05-19 12:45)
PROC: 0DH63UZ Insertion of Feeding Device into Stomach, Percutaneous Approach (ICD-10-PCS; CPT 43246; 2024-05-19 12:45)
DX: J44.1 Chronic obstructive pulmonary disease with (acute) exacerbation (principal); I21.4 Non-ST elevation (NSTEMI) myocardial infarction; J96.01 Acute respiratory failure with hypoxia; J96.02 Acute respiratory failure with hypercapnia; J13 Pneumonia due to Streptococcus pneumoniae; I13.0 Hypertensive heart and chronic kidney disease with heart failure and stage 1 through stage 4 chronic kidney disease, or unspecified chronic kidney disease; N17.9 Acute kidney failure, unspecified; F15.20 Other stimulant dependence, uncomplicated; I50.32 Chronic diastolic (congestive) heart failure; E87.0 Hyperosmolality and hypernatremia; E87.20 Acidosis, unspecified; C32.0 Malignant neoplasm of glottis; I25.10 Atherosclerotic heart disease of native coronary artery without angina pectoris; E78.5 Hyperlipidemia, unspecified; F17.210 Nicotine dependence, cigarettes, uncomplicated; N18.30 Chronic kidney disease, stage 3 unspecified; I16.0 Hypertensive urgency; Z75.1 Person awaiting admission to adequate facility elsewhere; Z79.82 Long term (current) use of aspirin; Z79.899 Other long term (current) drug therapy
CPT/HCPCS: 36415; 36416; 36573; 36592; 36600; 51702; 51798; 70490; 71045; 71275; 74230; 76770; 80048; 80051; 80053; 80069; 80306; 80307; 82330; 82570; 82803; 82805; 82962; 83036; 83605; 83735; 83880; 84100; 84145; 84300; 84443; 84484; 85025; 85378; 85610; 85730; 86140; 87040; 87070; 87077; 87186; 87205; 87486; 87581; 87633; 88305; 88342; 92507; 92523; 92526; 92610; 92611; 93005; 93306; 93458; 94002; 94003; 94640; 94762; 94799; 96365; 96366; 96367; 96372; 96374; 96376; 97110; 97116; 97161; 97167; 97530; 97535; 99291; C1713; C1725; C1751; C1769; C1874; C1887; C1894; C9600; J0171; J0330; J0360; J0456; J0461; J0696; J1100; J1610; J1644; J1650; J1940; J2060; J2250; J2270; J2405; J2470; J2704; J2919; J3010; J3475; J3490; J7030; J7050; J7512; J7626; Q3014; Q9967

== ENCOUNTER 2024-08-22 14:36 | Inpatient (IN) | payer MEDICAID, SELFPAY ==
[2024-08-22] VITALS (13 sets, daily range): BP systolic 115–168; BP diastolic 68–104; PULSE 81–118; RESP 13–22; TEMP 36.3–37.1; O2SAT 91–97
--- NOTE | 2024-08-22 15:13 | XR_ITS ---
WS: [id number] Portable AP upright chest, 08/22/2024 Clinical Data: cough and congestion Comparison: Portable chest, 05/12/2024 Findings: No nodules, masses or effusions are seen. The heart is normal. The pulmonary vascularity is not increased. No pneumonia or pneumothorax is seen. The tracheal tube remains above the [place]. The aortic arch and descending thoracic aorta show mild tortuosity. There is a old posterior lateral rig ht seventh rib fracture. XR/XR chest 2V* [id number] Impression: 1. Satisfactory position of tracheal tube. 2. Atherosclerosis.
--- NOTE | 2024-08-22 15:26 | ED_ITS ---
HPI - SOB/Dyspnea 2 General: Chief Complaint: Shortness of Breath/Dyspnea Stated Complaint: SOB Time Seen by Provider: 08/22/24 14:49 History of Present Illness: HPI Narrative: 49-year-old female presents to the emerg ency department chief complaint of progressive shortness of breath difficulty breathing patient is a chronic trach patient for ENT cancer laryngeal cancer patient reports significant sputum production through her tracheostomy yellowish in nature patient reports no recent fevers or chills no reports of any other associated symptoms she presents to the ER by EMS for further assessment and management. Associated symptoms: Reports chest congestion; Deny abdominal pain, chest pain, extremity pain, fever(s), nausea, palpitations or vomiting Related Data Home Medications Medication Instructions Recorded Confirmed budesonide 0.5 mg/2 mL suspension 0.5 mg inhalation BID PRN 05/08/24 08/22/24 for nebulization Shortness Of Breath albuterol sulfate 90 mcg/actuation 2 inh inhalation Q4H PRN shortness 08/22/24 08/22/24 aerosol inhaler of breath or wheezing clopidogrel 75 mg tablet (Plavix) 75 mg PO DAILY 08/22/24 08/22/24 hydroxyzine HCl 10 mg tablet 10 mg PO TID PRN Anxiety 08/22/24 08/22/24 ipratropium 0.5 mg-albuterol 3 mg 3 ml inhalation QID PRN Shortness 08/22/24 08/22/24 (2.5 mg base)/3 mL nebulization Of Breath Or Wheezing soln paroxetine HCl 40 mg tablet 40 mg PO DAILY 08/22/24 08/22/24 prednisone 50 mg tablet 50 mg PO DAILY 08/22/24 08/22/24 Previous Rx's Medication Instructions Recorded aspirin 81 mg tablet,delayed 81 mg PO DAILY #30 tabs 01/15/24 release nicotine 14 mg/24 hr daily 1 patch transdermal DAILY #14 ea 01/15/24 transdermal patch nicotine 21 mg/24 hr daily 1 patch transdermal DAILY #36 ea 01/15/24 transdermal patch nicotine 7 mg/24 hr daily 1 patch transdermal DAILY #14 ea 01/15/24 transdermal patch atorvastatin 40 mg tablet 40 mg PO BEDTIME #90 tabs 02/15/24 metoprolol tartrate 25 mg tablet 25 mg PO BID@0900,2100 #180 tabs 02/15/24 albuterol sulfate 2.5 mg/3 mL 2.5 mg (3 mL) inhalation Q4H PRN 04/12/24 (0.083 %) solution for nebulization shortness of breath or wheezing #90 mL Allergies Allergy/AdvReac Type Severity Reaction Status Date / Time hydromorphone [From Dilaudid] Allergy ADR-Migrain Verified 03/10/24 17:29 e Review of Systems 2 General: Reports: 10 or more systems reviewed and unremarkable except in HPI and below Const: Denies: fever(s), chills, fatigue or malaise Eyes: Denies: change in vision or blurry vision Card: Denies: chest pain or palpitations Resp: Reports: dyspnea, productive cough, wheezing, change in phlegm color and chest congestion GI: Denies: abdominal pain, nausea or vomiting : Denies: flank pain Musc: Denies: extremity pain or extremity swelling Skin/Breast: Denies: rash or pruritus Neuro: Denies: headache(s) Psych: Denies: anxiety or depression Lazaro/Lymph: Denies: easy bleeding All/Imm: Denies: urticaria, throat swelling or facial swelling PFSH ED 2 PFSH: Medical History COPD (chronic obstructive pulmonary disease) CKD (chronic kidney disease) Diastolic heart failure Hypertension Coronary artery disease Coronary angiogram from 01/13 showed moderate disease in LCx and LAD?negative on IFR Abnormal stress test Cannabis use disorder, mild, abuse Amphetamine use disorder, severe, dependence Bipolar disorder in full remission Bipolar disorder Social History Smoking and tobacco/nicotine status: current every day tobacco/nicotine user cigarettes Packs smoked per day: 1.5 Years cigarettes smoked: 30 Quit status (tobacco/nicotine): not considering quitting Second hand smoke exposure: Yes Current gender identity: Female Physical Exam 2 Const: COMMON NORMALS: patient oriented x3 and healthy appearing; apparent distress (Patient appears in mild distress on exam significant phlegm coming out of t) HENMT: COMMON NORMALS: normocephalic and atraumatic HEAD & SCALP: n ormocephalic and atraumatic Eye: COMMON NORMALS: Equal, round and reactive pupils present and EOMs intact bilaterally PUPIL: Yes Equal, round and reactive pupils present Neck/C-Spine: COMMON NORMALS: full ROM, supple and no JVD Lymph: LYMPHATIC: no lymphadenopathy noted Chest: COMMONS NORMALS: normal inspection of the chest and normal palpation of entire chest wall Resp: COMMON NORMALS: normal respiratory effort, No retractions and clear to auscultation bilaterally; negative for No use of accessory muscles (Mild expiratory wheezing appreciated bilaterally) EFFORT & INSPECTION: Yes able to speak in complete sentences and Yes symmetric chest movement AUSCULTATION: clear to auscultation bilaterally Cardio: COMMON NORMALS: no JVD, regular rate and regular rhythm RATE: r egular rate RHYTHM: regular rhythm GI: COMMON NORMALS: Normal to inspection, nondistended, normoactive bowel sounds present, Soft to palpation and non-tender INSPECTION: Yes normal to inspection PALPATION: Yes Soft to palpation : COMMON NORMALS: Yes no CVA tenderness BLADDER/KIDNEY EXAM: Yes no CVA tenderness Back/Pelvis: COMMON NORMALS: no CVA tenderness Extremity: COMMON NORMALS: normal to inspection and full ROM Neuro: COMMON NORMALS: patient oriented x3, CN's II-XII intact bilaterally, moves all extremities and no focal motor deficits Psych: COMMON NORMALS: mental status grossly normal, Normal thought process present, cooperative and normal affect THOUGHT PROCESS: Normal thought process present Skin: COMMON NORMALS: no rashes or lesions noted GENERAL SKIN EXAM: no rashes or lesions noted Course 2 Vital Signs: Vital signs: Vital Signs Temperature 98.8 F 08/22/24 14:43 Pulse Rate 106 H 08/22/24 18:37 Respiratory Rate 14 08/22/24 18:37 Blood Pressure 166/90 08/22/24 18:37 Pulse Oximetry 94 08/22/24 18:37 Oxygen Delivery Me thod Trach Collar 08/22/24 16:57 Fraction of Inspir ed Oxygen 30 08/22/24 18:37 MDM - SOB/Dyspnea Medical Decision Making Due to patient's symptoms and condition an IV will be established basic lab work and imaging will be obtained will continue to follow. Patient will be be treated for the phlegm production and by doing a respiratory panel to further rule out possibly polymicrobial infection risk especially with the tracheostomy chronically with the sputum changes patient was provided some steroids and nebs and some fentanyl for pain control will continue to follow. Discussed patient's case with Dr. Blank that has acceptance of the patient patient admitted to the ICU due to her requiring 8 L nasal cannula through trach mask maintain saturations in the low 90s patient was not found to have any obvious acute process CT angiogram of the chest as well as respiratory panel came back unremarkable. I however have high concerns of patient developing a subclinical infection and in which antibiotics will also be initiated. Lab Data 08/22/24 15:38 08/22/24 15:38 Labs/Radiology: Radiology Impressions Chest X-Ray 08/22/24 15:13 Impression: 1. Satisfactory position of tracheal tube. 2. Atherosclerosis. Chest CTA 08/22/24 17:11 IMPRESSION: 1. No evidence of pulmonary embolism. 2. No acute cardiopulmonary disease. Laboratory Results WBC 8.05 10^3/uL (3.29-11.43) 08/22/24 15:38 RBC 4.46 10^6/uL (3.85-5.65) 08/22/24 15:38 Hgb 13.80 g/dL (11.27-16.99) 08/22/24 15:38 Hct 41.5 % (36-47) 08/22/24 15:38 MCV 93.0 fl (85-98) 08/22/24 15:38 MCH 30.9 pg (27-33) 08/22/24 15:38 MCHC 33.3 g/dL (30-55) 08/22/24 15:38 RDW 12.6 % (12.1-15.1) 08/22/24 15:38 Plt Count 167 10^3/cmm (157-399) 08/22/24 15:38 MPV 10.2 fL (7.4-10.4) 08/22/24 15:38 Neut % (Auto) 77.1 % 08/22/24 15:38 Lymph % (Auto) 19.0 % 08/22/24 15:38 [place] % (Auto) 3.2 % 08/22/24 15:38 Eos % (Auto) 0.1 % 08/22/24 15:38 Baso % (Auto) 0.5 % 08/22/24 15:38 Neut # (Auto) 6.20 10^3/uL (1.8-7.7) 08/22/24 15:38 Lymph # (Auto) 1.5 10^3/uL (0.8-4.8) 08/22/24 15:38 [place] # (Auto) 0.3 10^3/uL (0.2-0.9) 08/22/24 15:38 Eos # (Auto) 0.0 10^3/uL (0.0-0.8) 08/22/24 15:38 Baso # (Auto) 0.0 10^3/uL (0.0-0.1) 08/22/24 15:38 Nucleated RBC % (auto) 0 % 08/22/24 15:38 Nucleated RBCs # 0.0 /100WBC 08/22/24 15:38 Specimen Type Arterial 08/22/24 17:11 Sample Site Brachial, left 08/22/24 17:11 ABG pH 7.40 (7.35-7.45) 08/22/24 17:11 ABG pCO2 39.2 mmHg (35-45) 08/22/24 17:11 ABG pO2 70.6 mmHg (80.0-100.0) L 08/22/24 17:11 ABG PO2/FiO2 Ratio 235 08/22/24 17:11 ABG HCO3 24.3 mmol/L (22-26) 08/22/24 17:11 ABG Base Excess -0.3 mmol/L (-2.0-2.0) 08/22/24 17:11 Huber Test Pos 08/22/24 17:11 Hematocrit 42.9 % (37-47) 08/22/24 17:11 O2 Delivery Device Hag 08/22/24 17:11 FiO2 30.0 % 08/22/24 17:11 Electrical Project Manager ID Cak 08/22/24 17:11 Sodium 137 mmol/L (136-145) 08/22/24 15:38 Potassium 3.1 mmol/L (3.5-5.1) L 08/22/24 15:38 Chloride 100 mmol/L (98-107) 08/22/24 15:38 Carbon Dioxide 22 mmol/L (22-29) 08/22/24 15:38 Anion Gap 18.1 (5-19) 08/22/24 15:38 BUN 16 mg/dL (6-20) 08/22/24 15:38 Creatinine 1.5 mg/dL (0.5-0.9) H 08/22/24 15:38 GFR Calculation 36.6 mL/min (90-130) L 08/22/24 15:38 Glucose 132 mg/dL (65-115) H 08/22/24 15:38 Calculated Osmolality 287 mOsm/kg (285-295) 08/22/24 15:38 Lactic Acid 3.1 mmol/L (0.5-2.2) H 08/22/24 15:38 Lactic Acid (Sepsis) 2.5 mmol/L (0.5-2.2) H 08/22/24 18:45 Calcium 9.9 mg/dL (8.5-10.5) 08/22/24 15:38 Total Bilirubin 0.5 mg/dL (0.15-1.2) 08/22/24 15:38 AST 46 U/L (0-32) H 08/22/24 15:38 ALT 49 U/L (0-33) H 08/22/24 15:38 Alkaline Phosphatase 56 U/L (35-105) 08/22/24 15:38 Troponin T Baseline 15 ng/L (0-10) H 08/22/24 15:38 Troponin T 120 Minute 13.35 ng/L (0-10) H 08/22/24 17:35 Delta Troponin T -1.65 ABS# (0-10) L 08/22/24 17:35 Total Protein 6.9 g/dL (6.6-8.7) 08/22/24 15:38 Albumin 4.0 g/dL (3.5-5.2) 08/22/24 15:38 Globulin 2.9 g/dL (1.3-4.6) 08/22/24 15:38 Adenovirus (PCR) Not detected (NOT DETECT) 08/22/24 16:15 C. pneumoniae DNA (PCR) Not detected (NOT DETECT) 08/22/24 16:15 Coronavirus 229E (PCR) Not detected (NOT DETECT) 08/22/24 16:15 Human Metapneumovir PCR Not detected (NOT DETECT) 08/22/24 16:15 Influenza A (H1) PCR Not detected (NOT DETECT) 08/22/24 16:15 Influ A (H1/09) PCR Not detected (NOT DETECT) 08/22/24 16:15 Influenza A (H3) PCR Not detected (NOT DETECT) 08/22/24 16:15 Influenza Type A (PCR) Not detected (NOT DETECT) 08/22/24 16:15 Influenza Type B (PCR) Not detected (NOT DETECT) 08/22/24 16:15 M. pneumoniae (PCR) Not detected (NOT DETECT) 08/22/24 16:15 Parainfluenza 1 (PCR) Not detected (NOT DETECT) 08/22/24 16:15 Parainfluenza 2 (PCR) Not detected (NOT DETECT) 08/22/24 16:15 Parainfluenza 3 (PCR) Not detected (NOT DETECT) 08/22/24 16:15 Parainfluenza 4 (PCR) Not detected (NOT DETECT) 08/22/24 16:15 RSV Type A (PCR) Not detected (NOT DETECT) 08/22/24 16:15 RSV Type B (PCR) Not detected (NOT DETECT) 08/22/24 16:15 Entero/Rhino (PCR) Not detected (NOT DETECT) 08/22/24 16:15 SARS-CoV-2 (PCR) Not detected (NOT DETECT) 08/22/24 16:15 All radiology interpretation(s) finalized by discharge Discharge Plan Discharge Patient Disposition: Admitted As Inpatient Admit Provider: Natalia Blank Clinical Impression: Acute bronchitis, Hypoxia Condition: Stable Coding Level of Care Code ED Medical Insurance Biller for Shara Zaldivar
--- NOTE | 2024-08-22 15:40 | PC.PHAR ---
Addendum entered by Sandy Marin 08/22/24 15:45: MOST MEDICATIONS WERE THE SAME THE ONES SHE STATED SHE WASN'T SURE SHE WAS TAKING . Original Note: pATIENT LOOKED AT MY CURRENT MEDICATION LIST AND STATED SHE WASN'T SURE IF SHE TOOK ANY O THEM TO CALL THE PHARMACY. I TRIED TO CALL THE PHARMACY AND THEY CLOSED EARLY FOR THE NEW YEARS . I CALLED THE DOCTORS OFFICE AND THEY FAXED ME A LIST WITH NO RX DATES ON IT .
[2024-08-22 15:47] LABS: Basophils % 0.5 %; Eosinophils % 0.1 %; Hematocrit 41.5 % (36-47); Lymphocytes # 1.5 10^3/uL (0.8-4.8); Mean Corpuscular HGB Conc 33.3 g/dL (30-55); Mean Corpuscular Hemoglobin 30.9 pg (27-33); Mean Platelet Volume 10.2 fL (7.4-10.4); Monocytes # 0.3 10^3/uL (0.2-0.9); Monocytes % 3.2 %; Neutrophils % 77.1 %; Nucleated Red Blood Cells % 0 %; Platelet Count 167 10^3/cmm (157-399); Red Blood Count 4.46 10^6/uL (3.85-5.65); Red Cell Distribution Width 12.6 % (12.1-15.1); White Blood Count 8.05 10^3/uL (3.29-11.43)
--- NOTE | 2024-08-22 15:57 | ECG_ITS ---
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 Measurements Intervals Venus Rate: 98 P: 54 [place]: 171 QRS: -17 QRSD: 94 T: 55 QT: 415 QTc: 530 Interpretive Statements SINUS RHYTHM POSSIBLE LEFT ATRIAL ENLARGEMENT [-0.1mV P-WAVE IN V1/V2] INCOMPLETE RIGHT BUNDLE BRANCH BLOCK [90+ ms QRS DURATION, TERMINAL R IN V1/V2, 40+ ms S IN I/aVL/V4/V5/V6] SEPTAL MYOCARDIAL INFARCTION , OF INDETERMINATE AGE [40+ ms Q WAVE IN V1/V2] Compared to ECG 05/12/2024 07:17:36 Incomplete right bundle-branch block now present Myocardial infarct finding now present T-wave abnormality no longer present Possible ischemia no longer present Electronically Signed On 08-22-2024 17:45:50 [facility] by Bradley Balderas M.D. [email or web address]
[2024-08-22] MEDS: methylPREDNISolone sod succ 125 mg/2 mL INJ IV (16:02)
[2024-08-22] MEDS: fentaNYL 50 mcg/mL INJ 2mL IVP (16:03)
[2024-08-22 16:04] LABS: Lactic Sepsis W/Reflex 3.1 mmol/L (0.5-2.2)
[2024-08-22] MEDS: ipratropium-albuterol 3 mL Neb INHALATION (16:06)
[2024-08-22 16:08] LABS: Troponin(5th) Baseline 15 ng/L (0-10)
[2024-08-22] MEDS: magnesium sulfate premix 2 GM/50 ML PIGGYBACK IV (16:11)
[2024-08-22 16:13] LABS: Alanine Aminotransferase 49 U/L (0-33); Alkaline Phosphatase 56 U/L (35-105); Anion Gap 18.1 (5-19); Aspartate Amino Transferase 46 U/L (0-32); Blood Urea Nitrogen 16 mg/dL (6-20); Calcium 9.9 mg/dL (8.5-10.5); Carbon Dioxide 22 mmol/L (22-29); Chloride 100 mmol/L (98-107); Globulin 2.9 g/dL (1.3-4.6); Glomerular Filtration Rate 36.6 mL/min (90-130); Glucose 132 mg/dL (65-115); Osmolality Calculated 287 mOsm/kg (285-295); Potassium 3.1 mmol/L (3.5-5.1); Sodium 137 mmol/L (136-145); Total Bilirubin 0.5 mg/dL (0.15-1.2); Total Protein 6.9 g/dL (6.6-8.7)
--- NOTE | 2024-08-22 17:00 | PC.NURSE ---
CALL [facility] [phone].
--- NOTE | 2024-08-22 17:11 | CTR_ITS ---
PROCEDURE INFORMATION: Exam: CTA Chest With Contrast Exam date and time: 08/22/2024 5:39 PM Age: 49 years old Clinical indication: Shortness of breath and other: Hypoxia; Prior surgery; Surgery date: 6+ months; Surgery type: Trach TECHNIQUE: Imaging protocol: Computed tomographic angiography of the chest with contrast. Exam focused on the arteries. 3D rendering (Not supervised by radiologist): MIP and/or 3D reconstructed images were created by the technologist. Radiation optimization: All CT scans at this facility use at least one of these dose optimization techniques: automated exposure control; mA and/or kV adjustment per patient size (includes targeted exams where dose is matched to clinical indication); or iterative reconstruction. Contrast material: OMNIPAQUE 350; Contrast volume: 86 ml; Contrast route: INTRAVENOUS (IV); COMPARISON: CT angio chest PE protcl [id number] 05/07/2024 3:29 AM RADIATION DOSE METRICS: Total DLP (mGy-cm): 397.23 FINDINGS: Tubes, catheters and devices: A tracheostomy tube is in place. Airways appear patent. Pulmonary arteries: The pulmonary arteries are adequately visualized to the segmental level. No filling defects are identified to suggest pulmonary artery embolism. There is prominence of the main pulmonary artery, decreased compared to prior study. Aorta: No aortic aneurysm or dissection. Mild atherosclerotic calcifications of the great vessels. Lungs: Scattered areas of peripheral atelectasis and/or scarring. No pulmonary mass or suspicious pulmonary nodule. No pulmonary consolidation or pulmonary infarct. Pleural spaces: No pleural effusion or pneumothorax. Heart: Heart size is within normal limits. There is no pericardial effusion or pericardial thickening. Coronary arteries: Mild coronary artery calcification. Lymph nodes: No enlarged lymph nodes are identified. Bones/joints: No acute osseous abnormalities are seen. Soft tissues: The soft tissues are within normal limits. CT/CT angio chest PE protcl [id number] IMPRESSION: 1. No evidence of pulmonary embolism. 2. No acute cardiopulmonary disease.
[2024-08-22 17:22] LABS: ABG PCO2 39.2 mmHg (35-45); Arterial Blood Gas Hematocrit 42.9 % (37-47); Base Excess ABG -0.3 mmol/L (-2.0-2.0); Blood Gas Allen Test Pos; Blood Gas Operator Identificat CAK; Blood Gas Sample Site Brachial, left; Blood Gas Sample Type Arterial; HCO3 ABG 24.3 mmol/L (22-26); Oxygen Device HAG; PO2 ABG 70.6 mmHg (80.0-100.0); PO2 FiO2 Ratio Arterial Blood 235
[2024-08-22 17:30] LABS: Reflex Lactate Order REFLEX LACTIC ORDERD
[2024-08-22] MEDS: iohexol 350 mg/mL 500 mL Btl (per mL) IV (17:45)
[2024-08-22 18:09] LABS: Adenovirus Not Detected (NOT DETECT); Chlamydia Pneumoniae Not Detected (NOT DETECT); Coronavirus 229E,HKU1,NL63,OC4 Not Detected (NOT DETECT); Human Metapneumovirus Not Detected (NOT DETECT); Human Rhinovirus/Enterovirus Not Detected (NOT DETECT); Influenza A Not Detected (NOT DETECT); Influenza A H1 Not Detected (NOT DETECT); Influenza A H1-2009 Not Detected (NOT DETECT); Influenza A H3 Not Detected (NOT DETECT); Influenza B Not Detected (NOT DETECT); Mycoplasma Pneumoniae Not Detected (NOT DETECT); Parainfluenza Virus Type 1 Not Detected (NOT DETECT); Parainfluenza Virus Type 2 Not Detected (NOT DETECT); Parainfluenza Virus Type 3 Not Detected (NOT DETECT); Parainfluenza Virus Type 4 Not Detected (NOT DETECT); Respiratory Syncytial Virus A Not Detected (NOT DETECT); Respiratory Syncytial Virus B Not Detected (NOT DETECT); SARS-COV-2 Not Detected (NOT DETECT)
[2024-08-22 18:14] LABS: Troponin 5 2HR 13.35 ng/L (0-10)
[2024-08-22 18:18] LABS: Troponin 5 2HR Delta -1.65 ABS# (0-10)
[2024-08-22 19:13] LABS: Lactic Acid level (Lactate) 2.5 mmol/L (0.5-2.2)
[2024-08-22] MEDS: cefTRIAXone 1,000 mg SDV 1000 MG IVP (20:01)
--- NOTE | 2024-08-22 20:22 | P.HP_ITS ---
Providers/Chief Complaint 2 Admitting Physician: Natalia Blank MD Primary Care Provider: GUY Garcia Chief Complaint: SOB History of Present Illness Yamileth Feliciano is a 49 year old female vocal cord cancer, status post tracheostomy, active smoker smokes 4 to 5 cigarettes a day, lives with her presented with chief complaint of shortness of breath and productive cough for last 7 to 10 days, she has not noticed any fever, chest pain, diarrhea or vomiting. At baseline does not use oxygen. She was supposed to follow-up with [facility] however not able to do so because it is too far for her. Patient is stating that she was supposed to get her teeth pulled out to start treatment but because of worsening of her condition she has not been able to do so. 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 Patient was diagnosed with strep pneumo pneumonia Patient has had sinus pauses secondary to vasovagal events during deep suctioning hence beta-yi was held Review of Systems 2 Const: Reports: chills; Denies: fever(s) Eyes: Denies: change in vision ENMT: Denies: throat pain Card: Denies: chest pain Resp: Reports: dyspnea and productive cough GI: Denies: abdominal pain : Denies: flank pain Medications/Allergies Home Medications Medication Instructions Recorded Confirmed Last Taken Type aspirin 81 mg tablet,delayed 81 mg PO DAILY #30 tabs 01/15/24 08/22/24 Unknown Rx release nicotine 14 mg/24 hr daily 1 patch transdermal DAILY #14 ea 01/15/24 08/22/24 Unknown Rx transdermal patch nicotine 21 mg/24 hr daily 1 patch transdermal DAILY #36 ea 01/15/24 08/22/24 Unknown Rx transdermal patch nicotine 7 mg/24 hr daily 1 patch transdermal DAILY #14 ea 01/15/24 08/22/24 Unknown Rx transdermal patch atorvastatin 40 mg tablet 40 mg PO BEDTIME #90 tabs 02/15/24 08/22/24 Unknown Rx metoprolol tartrate 25 mg tablet 25 mg PO BID@0900,2100 #180 tabs 02/15/24 08/22/24 Unknown Rx albuterol sulfate 2.5 mg/3 mL 2.5 mg (3 mL) inhalation Q4H PRN 04/12/24 08/22/24 Unknown Rx (0.083 %) solution for nebulization shortness of breath or wheezing #90 mL budesonide 0.5 mg/2 mL suspension 0.5 mg inhalation BID PRN 05/08/24 08/22/24 Unknown History for nebulization Shortness Of Breath albuterol sulfate 90 mcg/actuation 2 inh inhalation Q4H PRN shortness 08/22/24 08/22/24 Unknown History aerosol inhaler of breath or wheezing clopidogrel 75 mg tablet (Plavix) 75 mg PO DAILY 08/22/24 08/22/24 Unknown History hydroxyzine HCl 10 mg tablet 10 mg PO TID PRN Anxiety 08/22/24 08/22/24 Unknown History ipratropium 0.5 mg-albuterol 3 mg 3 ml inhalation QID PRN Shortness 08/22/24 08/22/24 Unknown History (2.5 mg base)/3 mL nebulization Of Breath Or Wheezing soln paroxetine HCl 40 mg tablet 40 mg PO DAILY 08/22/24 08/22/24 Unknown History prednisone 50 mg tablet 50 mg PO DAILY 08/22/24 08/22/24 Unknown History Allergies Allergy/AdvReac Type Severity Reaction Status Date / Time hydromorphone [From Dilaudid] Allergy ADR-Migrain Verified 03/10/24 17:29 e PFSH Acute 2 PFSH: Medical History COPD (chronic obstructive pulmonary disease) CKD (chronic kidney disease) Diastolic heart failure Hypertension Coronary artery disease Coronary angiogram from 01/13 showed moderate disease in LCx and LAD?negative on IFR Abnormal stress test Cannabis use disorder, mild, abuse Amphetamine use disorder, severe, dependence Bipolar disorder in full remission Bipolar disorder Social History Smoking and tobacco/nicotine status: current every day tobacco/nicotine user cigarettes Packs smoked per day: 1.5 Years cigarettes smoked: 30 Quit status (tobacco/nicotine): not considering quitting Second hand smoke exposure: Yes Current gender identity: Female Vitals/I&O/Wt Last Vital Signs Temp 98.8 F 08/22/24 14:43 Pulse 106 H 08/22/24 18:37 Resp 14 08/22/24 18:37 BP 166/90 08/22/24 18:37 Pulse Ox 94 08/22/24 18:37 O2 Del Method Trach Collar 08/22/24 16:57 FiO2 30 08/22/24 18:37 Weight last 48 hrs Weight 86.183 kg Physical Exam 2 Narrative: female Pleasant cooperative No active chest pain Awake and alert GCS 15 Nonfocal neuroexam S1, S2 tachycardia Abdomen soft Lower extremity no edema Currently on 7 L mask around trach Data 08/22/24 15:38 08/22/24 15:38 A&P Assessment and plan (1) Amphetamine use disorder, severe, dependence: (2) Hypertension: (3) Hypertensive urgency: (4) Coronary artery disease: Qualifiers: Coronary Disease-Associated Artery/Lesion type: [place] artery [place] vs. transplanted heart: [place] heart Associated angina: without angina Qualified Code(s): I25.10 - Atherosclerotic heart disease of [place] coronary artery without angina pectoris (5) Laryngeal mass: (6) Dysphagia: (7) CKD (chronic kidney disease): (8) Cancer of larynx: (9) Tardive dyskinesia: (10) Hypoxic respiratory failure: (11) COPD (chronic obstructive pulmonary disease): (12) Acute respiratory failure with hypoxia and hypercapnia: (13) Acute bronchitis: Qualifiers: Bronchitis organism: unspecified organism Qualified Code(s): J20.9 - Acute bronchitis, unspecified (14) Hypoxia: Plan Acute hypoxia Patient received ceftriaxone and doxycycline in the ER Will keep her Levaquin for now Afebrile no leukocytosis, no sign of sepsis CTA chest rule out PE no sign of significant consolidation Concern for tracheitis/bronchitis Add DuoNeb, Mucomyst, steroids Currently on 6-7 L HAG Established coronary disease continue dual antiplatelet therapy no active chest pain History of laryngeal mass status post PEG tube placement, tracheostomy, has not started chemo or radiation for vocal cord cancer, patient is waiting for dentist appointment Continue tube feeds via PEG tube Will request drug screen Patient is an active smoker will use low-dose nicotine patch Full code PEG tube feeds Patient will need home oxygen evaluation at discharge, Lives with her If remains afebrile with stable hemodynamics and there is no severe worsening of hypoxia she may be able to go home within 48 hours Attestations 2 Medical Necessity Statement*: Anticipating she may be able to go home within 48 hours Diagnoses Amphetamine use disorder, severe, dependence F15.20 Hypertension I10 Hypertensive urgency I16.0 Coronary artery disease involving [place] coronary artery of [place] heart without angina pectoris I25.10 Coronary Disease-Associated Artery/Lesion type: [place] artery [place] vs. transplanted heart: [place] heart Associated angina: without angina Laryngeal mass J38.7 Dysphagia R13.10 CKD (chronic kidney disease) N18.9 Cancer of larynx C32.9 Tardive dyskinesia G24.01 Hypoxic respiratory failure J96.91 COPD (chronic obstructive pulmonary disease) J44.9 Acute respiratory failure with hypoxia and hypercapnia J96.01; J96.02 Acute bronchitis J20.9 Bronchitis organism: unspecified organism Hypoxia R09.02
--- OUTSIDE RECORDS SUMMARY | 2024-08-22 20:33 | XMS_ITS | Continuity of Care Document ---
Author Name Unknown Organization [facility] Address [id number] [address] Phone Care Team Providers Care Insurance Sales Representative Name Role Phone Camila Schaeffer DDS Unavailable Unavailable Allergies, Adverse Reactions, Alerts Substance Reaction Status Criticality No Known Allergies Active No Inform ation Procedures Procedure Date No Work Today/No Charge SBIRT - AUDIT/DAST, 15-30 MIN 3 OFFICE/OUTPATIENT VISIT, NEW Intraoral ??? Periapical First Film Intraoral ??? Periapical Each Additional Film Intraoral ??? Periapical Each Additional Film Intraoral ??? Periapical Each Additional Film Intraoral ??? Periapical Each Additional Film Comprehensive Oral Evaluation ??? New Or Established Caries High Risk Exempt From Sealant Measure Advance Directives Directive Yes / No Effective Date File Name No Information Encounters Encounter Description Practice Location Reason(s) For Visit Diagnoses Date Provider Providers Copied on Encounter [facility], [id number] [place] [id number] [place] tel:[phone] [facility] Encounter for dental exam and cleaning w/o abnormal findings 3 Laury Jensen. [address] [facility] [place], [id number] , [place]. tel:[phone] Referring Provider: Camila Schaeffer, [address] [place], [address] . tel:[phone] OFFICE/OUTPA TIENT VISIT, [facility], [id number], [id number], [place] tel:[phone] [facility] Hypertension (chief complaint)Hea dache (chief complaint) Hypertensive emergencyRecurren t headache 3 Mike Wolf. [address], [place], [id number] , [place]. tel:[phone] Referring Provider: Maryann Mckeon, [address] [place], [address] . tel:[phone] [facility], [id number], [id number], [place] tel:[phone] [facility] Encounter for dental exam and cleaning w/o abnormal findings 3 Laury Jensen. [address], [place], [address] , [place]. tel:[phone] Referring Provider: Camila Schaeffer, [address] [place], [address] . tel:[phone] Family History Family Member Type Diagnosis Age At Onset No Information Payers Payer name Insurance type Covered libertarian ID Jing mccloud(s) D Medicaid [id number] Social History Type Description Quantity Date Captured [...]
[2024-08-22] MEDS: doxycycline 100 MG in sodium chloride 0.9% (plus) 100 ML IV (20:36)
[2024-08-22] MEDS: oxyCODONE-APAP 5-325 mg Tablet 1 TAB PO (20:36)
[2024-08-22] MEDS: atorvastatin 40 mg Tablet PO ×2 (22:00)
[2024-08-22] MEDS: methylPREDNISolone sod succ 40 mg/mL INJ IVP (22:01)
[2024-08-22] MEDS: metoprolol tartrate 25 mg Tablet PO (22:01)
[2024-08-22] MEDS: heparin 5,000 unit/mL INJ 1 mL 5000 UNIT SUBCUT (22:01)
[2024-08-23] VITALS (21 sets, daily range): BP systolic 95–143; BP diastolic 53–90; PULSE 57–70; RESP 16–22; TEMP 36.8–37.2; O2SAT 92–95
--- NOTE | 2024-08-23 02:20 | PC.NURSE ---
Spoke with regarding patients diet order. Patient states she is no longer on tube feedings at home and currently has a soft diet. said ok to put patient in for Mechanical soft diet.
[2024-08-23 03:16] LABS: Amphetamines Screen Urine Negative (Negative); Barbiturates Screen Urine Negative (Negative); Benzodiazepines Screen Urine Negative (Negative); Cocaine Screen Urine Negative (Negative); Opiate Screen Urine Negative (Negative); PCP Screen Urine Negative (Negative); THC Screen Urine Positive (Negative)
[2024-08-23 03:22] LABS: Basophils % 0.2 %; Hematocrit 41.8 % (36-47); Lymphocytes # 0.7 10^3/uL (0.8-4.8); Mean Corpuscular HGB Conc 32.5 g/dL (30-55); Mean Corpuscular Hemoglobin 30.7 pg (27-33); Mean Corpuscular Volume 94.4 fl (85-98); Monocytes % 0.9 %; Neutrophils % 81.4 %; Nucleated Red Blood Cells % 0 %; Platelet Count 179 10^3/cmm (157-399); Red Blood Count 4.43 10^6/uL (3.85-5.65); Red Cell Distribution Width 12.6 % (12.1-15.1)
[2024-08-23 03:44] LABS: Anion Gap 17.8 (5-19); Blood Urea Nitrogen 21 mg/dL (6-20); C Reactive Protein 3.8 mg/L (0.0-4.9); Calcium 9.3 mg/dL (8.5-10.5); Carbon Dioxide 24 mmol/L (22-29); Chloride 98 mmol/L (98-107); Creatinine Clr Calc Pharmacy 50.5312; Glomerular Filtration Rate 39.6 mL/min (90-130); Glucose 203 mg/dL (65-115); Magnesium 2.2 mg/dL (1.7-2.3); Osmolality Calculated 291 mOsm/kg (285-295); Potassium 3.8 mmol/L (3.5-5.1); Sodium 136 mmol/L (136-145)
[2024-08-23] MEDS: acetylcysteine 200 mg/mL SDV 4 mL 100 MG INHALATION ×4 (07:19→21:14)
[2024-08-23] MEDS: ipratropium-albuterol 3 mL Neb INHALATION ×4 (07:19→21:14)
[2024-08-23] MEDS: methylPREDNISolone sod succ 40 mg/mL INJ IVP ×2 (07:23→21:01)
[2024-08-23] MEDS: heparin 5,000 unit/mL INJ 1 mL 5000 UNIT SUBCUT ×2 (07:23→21:01)
[2024-08-23] MEDS: clopidogrel 75 mg Tablet PO (07:23)
[2024-08-23] MEDS: sennosides-docusate Tablet 1 TAB PO (07:24)
[2024-08-23] MEDS: nicotine 7 mg Patch 1 PATCH TRANSDERMA (07:24)
[2024-08-23] MEDS: metoprolol tartrate 25 mg Tablet PO ×2 (07:24→21:01)
[2024-08-23] MEDS: aspirin 81 mg EC Tablet PO (07:24)
[2024-08-23] MEDS: levoFLOXacin 750 mg Tablet PO (07:24)
[2024-08-23] MEDS: morphine IR 15 mg Tablet PO ×3 (07:30→17:47)
--- NOTE | 2024-08-23 08:40 | PC.CHAP ---
Pastoral Care Encounter/Spiritual Assessment Type of Contact [] Declined industrial green systems designer visit [] Patient/Family/Request visit [] Outpatient visit [] Follow-up visit [] Physician referral [] Code/Alert [x] Routine visit [] Staff referral [] Actively dying [] Patient sleeping [] Family support [] [] Out of room [] Palliative care [] [] Receiving care in room [] Pre-surgical visit [] Trauma [] Long length of stay [] ICU visit [] Other: Relational/Emotional Strength [x] Patient feels connected with others/family/visitors/staff [] Distress [] Loneliness/isolation [] Abandonment Spirituality of Patient [x] Person of Brittanie [] Attends Hinduism of their Brittanie [x] Believes in Prayer [] Reads Bible or Druze materials [] There are Spiritual issues to be addressed Deli/Bakery Associate Interventions [x] Prayer [x] Active listening [x] Non-anxious presence [x] Spiritual/emotional support [] Crisis/trauma care [] Spiritual counseling [] Bereavement support [] Provided bereavement packet [] Provided Bible/devotional materials [] Provided toy/stuffed animal, coloring book to patient or family member [] Provided Communion [] Anointing/[place] [] Salvation [x] Completed spiritual assessment [] Other: Impact on Illness or Injury [] Angry [] Fearful [] Anxious [] Often cries [] Exhaustion [] Unable to work [] Unable to attend mormon [] Unable to walk/stand [] Unable to read [] Unable to drive [] Unable to eat/drink [] Unable to sleep [] Unable to be with family [] Patient intubated [] Other: Summary Time spent with patient 5 vvmin
--- NOTE | 2024-08-23 20:37 | PM.PN ---
Subjective Subjective: She is feeling slightly better. Still having quite a bit of phlegm production. Vitals/I&O/Wt Last Vital Signs Temp 98.7 F 08/23/24 19:32 Pulse 64 08/23/24 19:32 Resp 16 08/23/24 19:32 BP 106/53 08/23/24 19:32 Pulse Ox 94 08/23/24 19:32 O2 Del Method Room Air 08/23/24 19:32 O2 Flow Rate 8 08/23/24 01:49 FiO2 28 08/23/24 15:32 08/23/24 08/23/24 08/23/24 06:59 14:59 22:59 Intake Total 360 / 610 1340 / 1340 240 / 1580 Output Total 300 / 300 900 / 900 Balance 60 / 310 1340 / 1340 -660 / 680 Weight last 48 hrs Weight 82.826 kg Weight 82.826 kg Weight 86.183 kg Physical Exam Const: COMMON NORMALS: patient oriented x3 and alert GENERAL APPEARANCE: cooperative ORIENTATION/CONSCIOUSNESS: Yes awake HENMT: COMMON NORMALS: oropharynx normal Neck/C-Spine: COMMON NORMALS: no JVD Resp: COMMON NORMALS: normal respiratory effort OTHER: Coarse breathing sounds. Faint rhonchi. Cardio: COMMON NORMALS: no JVD, regular rhythm, S1 normal heart sound present, S2 normal heart sound present and No murmurs present (Cardio) RHYTHM: regular rhythm HEART SOUNDS: S1 normal heart sound present and S2 normal heart sound present GI: COMMON NORMALS: Normal to inspection, nondistended, normoactive bowel sounds present, Soft to palpation and non-tender PALPATION: Yes Soft to palpation Extremity: COMMON NORMALS: no joint enlargement and no pedal edema Neuro: COMMON NORMALS: patient oriented x3 and moves all extremities SENSORIUM/ORIENTATION: Yes alert Skin: COMMON NORMALS: no rashes or lesions noted GENERAL SKIN EXAM: no rashes or lesions noted Data 08/23/24 02:47 08/23/24 02:47 Micro: Microbiology 08/22/24 21:46 Gram Stain - Final Sputum - Endotracheal Tube Aspirate A&P Assessment and plan (1) Amphetamine use disorder, severe, dependence: (2) Hypertension: (3) Hypertensive urgency: (4) Coronary artery disease: Qualifiers: Coronary Disease-Associated Artery/Lesion type: [place] artery [place] vs. transplanted heart: [place] heart Associated angina: without angina Qualified Code(s): I25.10 - Atherosclerotic heart disease of [place] coronary artery without angina pectoris (5) Laryngeal mass: (6) Dysphagia: (7) CKD (chronic kidney disease): (8) Cancer of larynx: (9) Tardive dyskinesia: (10) Hypoxic respiratory failure: (11) COPD (chronic obstructive pulmonary disease): (12) Acute respiratory failure with hypoxia and hypercapnia: (13) Acute bronchitis: Qualifiers: Bronchitis organism: unspecified organism Qualified Code(s): J20.9 - Acute bronchitis, unspecified (14) Hypoxia: Plan Acute hypoxia With tracheobronchitis, with copious sputum production. Reviewed vitals, CBC, BMP, tracheal culture. Continue Mucomyst. Continue budesonide. Mild guaifenesin. Continue Levaquin for now Afebrile no leukocytosis, no sign of sepsis CTA chest rule out PE no sign of significant consolidation Currently on 6-7 L HAG Established coronary disease continue dual antiplatelet therapy no active chest pain History of laryngeal mass status post PEG tube placement, tracheostomy, has not started chemo or radiation for vocal cord cancer, patient is waiting for dentist appointment Continue tube feeds via PEG tube Reviewed drug screen Patient is an active smoker will use low-dose nicotine patch Full code PEG tube feeds Patient will need home oxygen evaluation at discharge, Lives with her If remains afebrile with stable hemodynamics and there is no severe worsening of hypoxia she may be able to go home within 48 hours Attestations Medical Necessity Statement*: Continue admission for assessment and management of tracheobronchitis. Diagnoses Amphetamine use disorder, severe, dependence F15.20 Hypertension I10 Hypertensive urgency I16.0 Coronary artery disease involving [place] coronary artery of [place] heart without angina pectoris I25.10 Coronary Disease-Associated Artery/Lesion type: [place] artery [place] vs. transplanted heart: [place] heart Associated angina: without angina Laryngeal mass J38.7 Dysphagia R13.10 CKD (chronic kidney disease) N18.9 Cancer of larynx C32.9 Tardive dyskinesia G24.01 Hypoxic respiratory failure J96.91 COPD (chronic obstructive pulmonary disease) J44.9 Acute respiratory failure with hypoxia and hypercapnia J96.01; J96.02 Acute bronchitis J20.9 Bronchitis organism: unspecified organism Hypoxia R09.02
[2024-08-23] MEDS: atorvastatin 40 mg Tablet PO (21:01)
[2024-08-23] MEDS: guaiFENesin 600 mg Tablet 1200 MG PO (21:01)
[2024-08-24] VITALS (19 sets, daily range): BP systolic 121–133; BP diastolic 71–86; PULSE 55–66; RESP 12–26; TEMP 36.9–37.2; O2SAT 90–98
[2024-08-24] MEDS: acetaminophen 500 mg Tablet PO ×2 (00:35→10:38)
[2024-08-24] MEDS: morphine IR 15 mg Tablet PO ×4 (00:46→21:00)
[2024-08-24 03:41] LABS: Basophils % 0.1 %; Eosinophils % 0.1 %; Hematocrit 44.2 % (36-47); Lymphocytes # 0.9 10^3/uL (0.8-4.8); Lymphocytes % 5.5 %; Mean Corpuscular HGB Conc 30.3 g/dL (30-55); Mean Corpuscular Hemoglobin 30.5 pg (27-33); Mean Corpuscular Volume 100.5 fl (85-98); Mean Platelet Volume 9.9 fL (7.4-10.4); Monocytes # 0.5 10^3/uL (0.2-0.9); Monocytes % 2.8 %; Neutrophils # 14.44 10^3/uL (1.8-7.7); Neutrophils % 91.1 %; Nucleated Red Blood Cells % 0 %; Platelet Count 199 10^3/cmm (157-399); Red Cell Distribution Width 12.8 % (12.1-15.1); White Blood Count 15.86 10^3/uL (3.29-11.43)
[2024-08-24 04:19] LABS: Blood Urea Nitrogen 32 mg/dL (6-20); Calcium 9.1 mg/dL (8.5-10.5); Carbon Dioxide 25 mmol/L (22-29); Chloride 98 mmol/L (98-107); Creatinine Clr Calc Pharmacy 54.4182; Glomerular Filtration Rate 43.2 mL/min (90-130); Glucose 148 mg/dL (65-115); Osmolality Calculated 290 mOsm/kg (285-295); Sodium 135 mmol/L (136-145)
[2024-08-24 04:20] LABS: Anion Gap 16.4 (5-19); Potassium 4.4 mmol/L (3.5-5.1)
[2024-08-24] MEDS: levoFLOXacin 750 mg Tablet PO (04:57)
[2024-08-24] MEDS: clopidogrel 75 mg Tablet PO (07:48)
[2024-08-24] MEDS: nicotine 7 mg Patch 1 PATCH TRANSDERMA (07:48)
[2024-08-24] MEDS: guaiFENesin 600 mg Tablet 1200 MG PO ×2 (07:48→20:59)
[2024-08-24] MEDS: metoprolol tartrate 25 mg Tablet PO (07:50)
[2024-08-24] MEDS: sennosides-docusate Tablet 1 TAB PO (07:50)
[2024-08-24] MEDS: aspirin 81 mg EC Tablet PO (07:50)
[2024-08-24] MEDS: ipratropium-albuterol 3 mL Neb INHALATION ×3 (08:56→16:18)
[2024-08-24] MEDS: heparin 5,000 unit/mL INJ 1 mL 5000 UNIT SUBCUT ×2 (10:27→21:00)
[2024-08-24] MEDS: methylPREDNISolone sod succ 40 mg/mL INJ IVP ×2 (10:27→21:00)
--- NOTE | 2024-08-24 16:57 | P.PN_ITS ---
Subjective 2 Subjective: She is still feeling dyspnea, producing copious phlegm. Vitals/I&O/Wt Last Vital Signs Temp 98.7 F 08/24/24 12:00 Pulse 66 08/24/24 16:24 Resp 16 08/24/24 16:15 BP 123/77 08/24/24 12:00 Pulse Ox 92 08/24/24 16:15 O2 Del Method CAG 08/24/24 16:15 O2 Flow Rate 7 08/24/24 09:00 FiO2 28 08/24/24 16:15 08/24/24 08/24/24 08/24/24 06:59 14:59 22:59 Intake Total 200 / 2180 840 / 840 Output Total 550 / 1450 480 / 480 Balance -350 / 730 360 / 360 Weight last 48 hrs Weight 83.779 kg Weight 82.826 kg Weight 82.826 kg Physical Exam 2 Const: COMMON NORMALS: patient oriented x3 and alert GENERAL APPEARANCE: c ooperative ORIENTATION/CONSCIOUSNESS: Yes awake HENMT: COMMON NORMALS: oropharynx normal Neck/C-Spine: COMMON NORMALS: no JVD Resp: COMMON NORMALS: normal respiratory effort OTHER: Coarse breathing sounds. Cardio: COMMON NORMALS: no JVD, regular rhythm, S1 normal heart sound present, S2 normal heart sound present and No murmurs present (Cardio) RHYTHM: regular rhythm HEART SOUNDS: S1 normal heart sound present and S2 normal heart sound present GI: COMMON NORMALS: Normal to inspection, nondistended, normoactive bowel sounds present, Soft to palpation and non-tender PALPATION: Yes Soft to palpation Extremity: COMMON NORMALS: no joint enlargement and no pedal edema Neuro: COMMON NORMALS: patient oriented x3 and moves all extremities S ENSORIUM/ORIENTATION: Yes alert Skin: COMMON NORMALS: no rashes or lesions noted GENERAL SKIN EXAM: no rashes or lesions noted Data 08/24/24 03:33 08/24/24 03:33 Micro: Microbiology 08/22/24 21:46 Gram Stain - Final Sputum - Endotracheal Tube Aspirate Sputum Culture - Preliminary Gram Negative Rods A&P Assessment and plan (1) Amphetamine use disorder, severe, dependence: (2) Hypertension: (3) Hypertensive urgency: (4) Coronary artery disease: Qualifiers: Coronary Disease-Associated Artery/Lesion type: [place] artery [place] vs. transplanted heart: [place] heart Associated angina: without angina Qualified Code(s): I25.10 - Atherosclerotic heart disease of [place] coronary artery without angina pectoris (5) Laryngeal mass: (6) Dysphagia: (7) CKD (chronic kidney disease): (8) Cancer of larynx: (9) Tardive dyskinesia: (10) Hypoxic respiratory failure: (11) COPD (chronic obstructive pulmonary disease): (12) Acute respiratory failure with hypoxia and hypercapnia: (13) Acute bronchitis: Qualifiers: Bronchitis organism: unspecified organism Qualified Code(s): J20.9 - Acute bronchitis, unspecified (14) Hypoxia: Plan Unimproved tracheobronchitis, with copious sputum production. Reviewed tracheal culture, growing gram-negative rods. Pending intensification. Reviewed vitals, CBC, BMP. Worsening leukocytosis up to 15.86. Discussed with nursing, wrapper caser. She is also concerned about returning home, she is [facility] Continue Mucomyst. Continue budesonide. Mild guaifenesin. Continue Solu-Medrol, monitor for risk of hyperglycemia, hypertension, encephalopathy, gastritis with IV steroid. Continue Levaquin for now Afebrile no leukocytosis, no sign of sepsis CTA chest rule out PE no sign of significant consolidation Currently on 6-7 L HAG. Does not have oxygen at home. Discussed with wrapper caser. Established coronary disease continue dual antiplatelet therapy no active chest pain History of laryngeal mass status post PEG tube placement, tracheostomy, has not started chemo or radiation for vocal cord cancer, patient is waiting for dentist appointment Continue tube feeds via PEG tube Reviewed drug screen Patient is an active smoker will use low-dose nicotine patch Full code PEG tube feeds Patient will need home oxygen evaluation at discharge, Lives with her Attestations 2 Medical Necessity Statement*: Continue admission for assessment and management of tracheobronchitis. and High MDM includes amount and/or complexity of data reviewed/ordered [ resulted lab(s)/test(s) and other healthcare professional discussion] and described risk of complication, morbidity or mortality of management as documented Diagnoses Amphetamine use disorder, severe, dependence F15.20 Hypertension I10 Hypertensive urgency I16.0 Coronary artery disease involving [place] coronary artery of [place] heart without angina pectoris I25.10 Coronary Disease-Associated Artery/Lesion type: [place] artery [place] vs. transplanted heart: [place] heart Associated angina: without angina Laryngeal mass J38.7 Dysphagia R13.10 CKD (chronic kidney disease) N18.9 Cancer of larynx C32.9 Tardive dyskinesia G24.01 Hypoxic respiratory failure J96.91 COPD (chronic obstructive pulmonary disease) J44.9 Acute respiratory failure with hypoxia and hypercapnia J96.01; J96.02 Acute bronchitis J20.9 Bronchitis organism: unspecified organism Hypoxia R09.02
[2024-08-24] MEDS: acetylcysteine 200 mg/mL SDV 4 mL 100 MG INHALATION (19:38)
[2024-08-24] MEDS: atorvastatin 40 mg Tablet PO (20:59)
[2024-08-25] VITALS (18 sets, daily range): BP systolic 138–167; BP diastolic 80–96; PULSE 58–68; RESP 14–23; TEMP 36.6–36.9; O2SAT 87–96
[2024-08-25 03:50] LABS: Basophils % 0.1 %; Hematocrit 40.6 % (36-47); Lymphocytes # 0.8 10^3/uL (0.8-4.8); Lymphocytes % 8.5 %; Mean Corpuscular HGB Conc 31.8 g/dL (30-55); Mean Corpuscular Hemoglobin 30.5 pg (27-33); Mean Platelet Volume 9.7 fL (7.4-10.4); Monocytes # 0.2 10^3/uL (0.2-0.9); Monocytes % 2.4 %; Neutrophils % 88.4 %; Nucleated Red Blood Cells % 0 %; Platelet Count 211 10^3/cmm (157-399); Red Blood Count 4.23 10^6/uL (3.85-5.65); Red Cell Distribution Width 12.6 % (12.1-15.1); White Blood Count 9.73 10^3/uL (3.29-11.43)
[2024-08-25 04:22] LABS: Anion Gap 14.7 (5-19); Blood Urea Nitrogen 37 mg/dL (6-20); Calcium 8.9 mg/dL (8.5-10.5); Carbon Dioxide 25 mmol/L (22-29); Chloride 101 mmol/L (98-107); Creatinine Clr Calc Pharmacy 54.7263; Glomerular Filtration Rate 43.2 mL/min (90-130); Glucose 155 mg/dL (65-115); Osmolality Calculated 294 mOsm/kg (285-295); Potassium 4.7 mmol/L (3.5-5.1); Sodium 136 mmol/L (136-145)
[2024-08-25] MEDS: levoFLOXacin 750 mg Tablet PO (05:47)
[2024-08-25] MEDS: morphine IR 15 mg Tablet PO ×3 (07:39→22:38)
[2024-08-25] MEDS: clopidogrel 75 mg Tablet PO (07:40)
[2024-08-25] MEDS: nicotine 7 mg Patch 1 PATCH TRANSDERMA (07:41)
[2024-08-25] MEDS: aspirin 81 mg EC Tablet PO (07:41)
[2024-08-25] MEDS: sennosides-docusate Tablet 1 TAB PO (07:41)
[2024-08-25] MEDS: guaiFENesin 600 mg Tablet 1200 MG PO ×2 (07:44→20:53)
[2024-08-25] MEDS: ipratropium-albuterol 3 mL Neb INHALATION ×4 (09:12→20:42)
[2024-08-25] MEDS: methylPREDNISolone sod succ 40 mg/mL INJ IVP ×2 (09:20→20:56)
[2024-08-25] MEDS: heparin 5,000 unit/mL INJ 1 mL 5000 UNIT SUBCUT ×2 (09:20→20:56)
[2024-08-25] MEDS: acetaminophen 500 mg Tablet PO ×2 (10:37→14:10)
--- NOTE | 2024-08-25 12:06 | PC.NURSE ---
Patient's called at 1205 to ask if he would be able to find someone to fiber picker the patient up as she is being discharged. He stated he was trying to find a ride. Son stated he is not able to pick her up after work.
--- NOTE | 2024-08-25 12:40 | CTR_ITS ---
PROCEDURE INFORMATION: Exam: CT Neck With Contrast Exam date and time: 08/25/2024 2:21 PM Age: 49 years old Clinical indication: Neck pain; Prior surgery; Surgery date: 1-6 months; Surgery type: Trach; Additional info: Pharynx pain, feels food getting caught at the back of the, mouth/throat TECHNIQUE: Imaging protocol: Computed tomography of the neck with contrast. Radiation optimization: All CT scans at this facility use at least one of these dose optimization techniques: automated exposure control; mA and/or kV adjustment per patient size (includes targeted exams where dose is matched to clinical indication); or iterative reconstruction. Contrast material: OMNI 350; Contrast volume: 100 ml; Contrast route: INTRAVENOUS (IV); COMPARISON: CT neck wo con [id number] 05/09/2024 12:07 AM RADIATION DOSE METRICS: Total DLP (mGy-cm): 269.46 FINDINGS: Salivary glands: Normal. Glands are normal in size. Pharynx: Asymmetrical thickening along the left laryngeal part of the pharynx with suspicious nodular thickening of the left aryepiglottic body and epiglottis. Prevertebral and retropharyngeal spaces: Unremarkable. Larynx: Unremarkable. Epiglottis is normal. Thyroid: Normal. No enlarged or calcified nodules. Trachea: Visualized trachea is unremarkable. Lungs: Unremarkable as visualized. Lymph nodes: Unremarkable. No lymphadenopathy. Bones/joints: Unremarkable. No acute fracture. Soft tissues: Unremarkable. No significant soft tissue swelling. Prominent lymph node along the left level 2A measuring 0.[address]/CT neck w con* [id number] IMPRESSION: Asymmetrical thickening along the left laryngeal part of the pharynx with suspicious nodular thickening of the left aryepiglottic body and epiglottis, further evaluation with direct visualization and/or PET-CT may be obtained..
[2024-08-25] MEDS: iohexol 350 mg/mL 500 mL Btl (per mL) IV (14:22)
[2024-08-25] MEDS: acetylcysteine 200 mg/mL SDV 4 mL 100 MG INHALATION ×2 (16:04→20:42)
[2024-08-25] MEDS: metoprolol tartrate 25 mg Tablet PO (20:53)
[2024-08-25] MEDS: atorvastatin 40 mg Tablet PO (20:53)
--- NOTE | 2024-08-25 22:12 | P.PN_ITS ---
Subjective 2 Subjective: Initially appearing to be improved, however, later during the day large sputum globule obstructing tracheostomy. She has requested for additional education on self suctioning. She has discussed with case management discharge options, discharge disposition. She would like to try to seek treatment and so has decided that the prison is not an option for her. She understands that home health aide does not covered by Medicaid, she is not able to pay for it [id number], her, has been provided phone number for additional option to try to seek home health aide by case management. Vitals/I&O/Wt Last Vital Signs Temp 98.0 F 08/25/24 19:41 Pulse 65 08/25/24 20:15 Resp 18 08/25/24 20:15 BP 152/94 08/25/24 19:41 Pulse Ox 94 08/25/24 20:15 O2 Del Method CAG 08/25/24 20:15 O2 Flow Rate 3 08/25/24 16:07 FiO2 28 08/25/24 20:15 08/25/24 08/25/24 08/25/24 06:59 14:59 22:59 Intake Total 480 / 2000 240 / 240 240 / 480 Output Total 300 / 980 800 / 800 Balance 180 / 1020 -560 / -560 240 / -320 Weight last 48 hrs Weight 85.593 kg Weight 83.779 kg Physical Exam 2 Const: COMMON NORMALS: patient oriented x3 and alert GENERAL APPEARANCE: c ooperative ORIENTATION/CONSCIOUSNESS: Yes awake HENMT: COMMON NORMALS: oropharynx normal Neck/C-Spine: COMMON NORMALS: no JVD Resp: COMMON NORMALS: normal respiratory effort OTHER: Coarse breathing sounds. On revisit thick sputum suctioned out of tracheostomy with partial obstruction of the trach cuff. Cardio: COMMON NORMALS: no JVD, regular rhythm, S1 normal heart sound present, S2 normal heart sound present and No murmurs present (Cardio) RHYTHM: regular rhythm HEART SOUNDS: S1 normal heart sound present and S2 normal heart sound present GI: COMMON NORMALS: Normal to inspection, nondistended, normoactive bowel sounds present, Soft to palpation and non-tender PALPATION: Yes Soft to palpation Extremity: COMMON NORMALS: no joint enlargement and no pedal edema Neuro: COMMON NORMALS: patient oriented x3 and moves all extremities S ENSORIUM/ORIENTATION: Yes alert Skin: COMMON NORMALS: no rashes or lesions noted GENERAL SKIN EXAM: no rashes or lesions noted Data 08/25/24 03:36 08/25/24 03:36 Micro: Microbiology 08/22/24 21:46 Gram Stain - Final Sputum - Endotracheal Tube Aspirate Sputum Culture - Final Klebsiella oxytoca A&P Assessment and plan (1) Amphetamine use disorder, severe, dependence: (2) Hypertension: (3) Hypertensive urgency: (4) Coronary artery disease: Qualifiers: Coronary Disease-Associated Artery/Lesion type: [place] artery [place] vs. transplanted heart: [place] heart Associated angina: without angina Qualified Code(s): I25.10 - Atherosclerotic heart disease of [place] coronary artery without angina pectoris (5) Laryngeal mass: (6) Dysphagia: (7) CKD (chronic kidney disease): (8) Cancer of larynx: (9) Tardive dyskinesia: (10) Hypoxic respiratory failure: (11) COPD (chronic obstructive pulmonary disease): (12) Acute respiratory failure with hypoxia and hypercapnia: (13) Acute bronchitis: Qualifiers: Bronchitis organism: unspecified organism Qualified Code(s): J20.9 - Acute bronchitis, unspecified (14) Hypoxia: Plan Unimproved tracheobronchitis, with copious sputum production. Initially appeared to be improved, she reported was not quite comfortable using suctioning herself at home, requested additional education. Requested with nursing staff. Home which evaluation performed ankle-foot for 3 L oxygen via Hag. Discussed with respite therapy. Discussed with nursing, caser. Does have suctioning at home. Discharge canceled for now as later in the afternoon in respiratory distress with thick globule of mucus/sputum partially obstructing trach cuff. Immediately suctioned out with initially partial in good relief. Requested additional Mucomyst treatment. For now continue patient treatment with IV steroid, Mucomyst, guaifenesin, Levaquin. Reviewed glucose. Vitals. Continue to monitor for risk of hyperglycemia, hypertension, gastritis, encephalopathy with IV steroid. Reviewed sputum culture, noted growing Klebsiella oxytoca resistant to Augmentin. Reviewed vitals, CBC, BMP. Afebrile no leukocytosis, no sign of sepsis CTA chest rule out PE no sign of significant consolidation HTN: Changed to cardiac diet. Reassess blood pressures. Hyperglycemia: Changed to consistent carbohydrate diet. Reassess blood glucose. Established coronary disease continue dual antiplatelet therapy no active chest pain History of laryngeal mass status post PEG tube placement, tracheostomy, has not started chemo or radiation for vocal cord cancer, patient is waiting for dentist appointment Continue tube feeds via PEG tube Reviewed drug screen Patient is an active smoker will use low-dose nicotine patch Full code PEG tube feeds Patient will need home oxygen evaluation at discharge, Lives with her . She is considering options for discharge, will be returning home. Will be provided additional education for suctioning/tracheostomy care. She states she does take of the cough and cleaning herself. Has not been comfortable with suctioning. Attestations 2 Medical Necessity Statement*: Continue admission for assessment and management after episode of respiratory distress with thick sputum occlusion of tracheostomy, further management of tracheobronchitis with thick sputum, further education on care. Diagnoses Amphetamine use disorder, severe, dependence F15.20 Hypertension I10 Hypertensive urgency I16.0 Coronary artery disease involving [place] coronary artery of [place] heart without angina pectoris I25.10 Coronary Disease-Associated Artery/Lesion type: [place] artery [place] vs. transplanted heart: [place] heart Associated angina: without angina Laryngeal mass J38.7 Dysphagia R13.10 CKD (chronic kidney disease) N18.9 Cancer of larynx C32.9 Tardive dyskinesia G24.01 Hypoxic respiratory failure J96.91 COPD (chronic obstructive pulmonary disease) J44.9 Acute respiratory failure with hypoxia and hypercapnia J96.01; J96.02 Acute bronchitis J20.9 Bronchitis organism: unspecified organism Hypoxia R09.02
[2024-08-26] VITALS (8 sets, daily range): BP systolic 148–157; BP diastolic 91–101; PULSE 53–67; RESP 16–24; TEMP 36.8–36.9; O2SAT 93–95
[2024-08-26 05:18] LABS: Basophils % 0.1 %; Hematocrit 41.5 % (36-47); Lymphocytes # 1.1 10^3/uL (0.8-4.8); Lymphocytes % 12.4 %; Mean Corpuscular HGB Conc 31.6 g/dL (30-55); Mean Corpuscular Hemoglobin 30.7 pg (27-33); Mean Corpuscular Volume 97.2 fl (85-98); Mean Platelet Volume 10.7 fL (7.4-10.4); Monocytes # 0.4 10^3/uL (0.2-0.9); Monocytes % 4.6 %; Neutrophils # 7.15 10^3/uL (1.8-7.7); Neutrophils % 82.3 %; Nucleated Red Blood Cells % 0 %; Platelet Count 158 10^3/cmm (157-399); Red Blood Count 4.27 10^6/uL (3.85-5.65); Red Cell Distribution Width 12.6 % (12.1-15.1); White Blood Count 8.69 10^3/uL (3.29-11.43)
[2024-08-26] MEDS: levoFLOXacin 750 mg Tablet PO (06:09)
[2024-08-26] MEDS: morphine IR 15 mg Tablet PO ×2 (06:13→11:19)
[2024-08-26 06:35] LABS: Anion Gap 14.8 (5-19); Blood Urea Nitrogen 29 mg/dL (6-20); Calcium 8.9 mg/dL (8.5-10.5); Carbon Dioxide 24 mmol/L (22-29); Chloride 103 mmol/L (98-107); Creatinine Clr Calc Pharmacy 59.9222; Glomerular Filtration Rate 47.4 mL/min (90-130); Glucose 139 mg/dL (65-115); Osmolality Calculated 292 mOsm/kg (285-295); Potassium 4.8 mmol/L (3.5-5.1); Sodium 137 mmol/L (136-145)
[2024-08-26] MEDS: acetylcysteine 200 mg/mL SDV 4 mL 100 MG INHALATION ×2 (07:50→12:01)
[2024-08-26] MEDS: ipratropium-albuterol 3 mL Neb INHALATION ×2 (07:50→11:56)
[2024-08-26] MEDS: methylPREDNISolone sod succ 40 mg/mL INJ IVP (07:57)
[2024-08-26] MEDS: guaiFENesin 600 mg Tablet 1200 MG PO ×2 (07:57→13:37)
[2024-08-26] MEDS: nicotine 7 mg Patch 1 PATCH TRANSDERMA (07:57)
[2024-08-26] MEDS: aspirin 81 mg EC Tablet PO (07:57)
[2024-08-26] MEDS: clopidogrel 75 mg Tablet PO (07:58)
[2024-08-26] MEDS: sennosides-docusate Tablet 1 TAB PO (07:58)
[2024-08-26] MEDS: metoprolol tartrate 25 mg Tablet PO (07:58)
[2024-08-26] MEDS: heparin 5,000 unit/mL INJ 1 mL 5000 UNIT SUBCUT (07:58)
[2024-08-26] MEDS: acetaminophen 500 mg Tablet PO (08:51)
--- NOTE | 2024-08-26 11:20 | PC.NURSE ---
Discharge pending for this patient. Have been unsuccessful reaching her significant other. Patient reports he may be hauling in some logs today so we have some money. Have message out to spouse. Will continue to monitor.
--- NOTE | 2024-08-26 13:54 | PC.NURSE ---
Patient discharged to home. Patient did not want to wait for O2 to be delivered. Informed [place] with [facility] that patient would meet them at the patient's home for the concentrator. Patient reports not needing O2 for the ride home. Patient was educated about the need and use of O2 with side effects of not having it. Patient verbalized complete understanding. Patient instructed on new medications and follow up needs. New medications transmitted to [facility] in [place]. Patient and spouse were provided hands on visual teaching of trach care with suctioning. Written information was also provided. Both verbalized complete understanding. Patient left ambulatory with spouse at side. Patient denies pain or needs. No distress observed.
--- NOTE | 2024-08-26 18:00 | PM.DCS ---
Discharge Providers Date of Admission: 08/23/24 09:09 Date of Discharge: August 26, 2024 Attending Provider at Admission: Natalia Blank MD Attending Provider at Discharge: Bradford Lindquist Primary Care Provider: GUY Garcia Diagnoses at Discharge Discharge Diagnosis (1) Amphetamine use disorder, severe, dependence: Status: Chronic (2) Hypertension: Status: Acute (3) Hypertensive urgency: Status: Acute (4) Coronary artery disease: Status: Acute Qualifiers: Associated angina: without angina Coronary Disease-Associated Artery/Lesion type: [place] artery [place] vs. transplanted heart: [place] heart Qualified Code(s): I25.10 - Atherosclerotic heart disease of [place] coronary artery without angina pectoris Permanent problem details: Coronary angiogram from 01/13 showed moderate disease in LCx and LAD?negative on IFR (5) Laryngeal mass: Status: Acute (6) Dysphagia: Status: Acute (7) CKD (chronic kidney disease): Status: Chronic (8) Cancer of larynx: Status: Acute (9) Tardive dyskinesia: Status: Acute (10) Hypoxic respiratory failure: Status: Acute (11) COPD (chronic obstructive pulmonary disease): Status: Acute (12) Acute respiratory failure with hypoxia and hypercapnia: Status: Acute (13) Acute bronchitis: Status: Acute Qualifiers: Bronchitis organism: unspecified organism Qualified Code(s): J20.9 - Acute bronchitis, unspecified (14) Hypoxia: Status: Acute Reason for Visit Reason for Visit: SOB Hospital Course Hospital Course Pleasant 49-year-old lady status post tracheostomy, PEG in April with moderately differentiated squamous cell laryngeal cancer, pending further arrangements for treatment in [place], with history of smoking, CAD, NSTEMI status post PCI and stenting also in April, COPD, CKD, HTN, amphetamine use disorder, was admitted after presenting with shortness of breath, productive cough over the preceding 7 to 10 days. It was found that she was not comfortable with using suctioning to clear airway secretions, although was taking out the trach cuff to clean it. No PE or pneumonia noted on CTA chest. She was treated in the hospital for bronchitis and tracheitis with expectorants with Mucomyst, guaifenesin, DuoNeb, received IV steroid, and antibiotic coverage with Levaquin. Tracheal secretion cultures eventually growing Klebsiella resistant to Augmentin. Secretions have continued gradually to improve. Additional education was arranged for her to allow her to suction airway secretions. Home oxygen evaluation found she qualified for 3 L of oxygen via HAG. Discharge Data Studies Completed and Pending Completed Studies During Hospitalization Category Date Time Status CT neck w con* [id number] Routine Cat Scan 08/25/24 12:40 Completed CTA chest [CT angio chest PE protcl [id number]] Stat Cat Scan 08/22/24 17:11 Completed XR chest 2V* [id number] Stat Exams 08/22/24 15:13 Completed Radiology Impressions Chest X-Ray 08/22/24 15:13 Impression: 1. Satisfactory position of tracheal tube. 2. Atherosclerosis. Chest CTA 08/22/24 17:11 IMPRESSION: 1. No evidence of pulmonary embolism. 2. No acute cardiopulmonary disease. Neck CT 08/25/24 12:40 IMPRESSION: Asymmetrical thickening along the left laryngeal part of the pharynx with suspicious nodular thickening of the left aryepiglottic body and epiglottis, further evaluation with direct visualization and/or PET-CT may be obtained.. ADDENDUM: 08/25/24 [id number] ADDENDUM: Tracheostomy tube in place. Hypodense left thyroid nodule measuring 0.6 centimeters , no follow-up required. Narrowing of the inferior laryngeal part of the pharynx Laboratory Results WBC 8.69 10^3/uL (3.29-11.43) 08/26/24 04:35 RBC 4.27 10^6/uL (3.85-5.65) 08/26/24 04:35 Hgb 13.10 g/dL (11.27-16.99) 08/26/24 04:35 Hct 41.5 % (36-47) 08/26/24 04:35 MCV 97.2 fl (85-98) 08/26/24 04:35 MCH 30.7 pg (27-33) 08/26/24 04:35 MCHC 31.6 g/dL (30-55) 08/26/24 04:35 RDW 12.6 % (12.1-15.1) 08/26/24 04:35 Plt Count 158 10^3/cmm (157-399) 08/26/24 04:35 MPV 10.7 fL (7.4-10.4) H 08/26/24 04:35 Neut % (Auto) 82.3 % 08/26/24 04:35 Lymph % (Auto) 12.4 % 08/26/24 04:35 [place] % (Auto) 4.6 % 08/26/24 04:35 Eos % (Auto) 0.0 % 08/26/24 04:35 Baso % (Auto) 0.1 % 08/26/24 04:35 Neut # (Auto) 7.15 10^3/uL (1.8-7.7) 08/26/24 04:35 Lymph # (Auto) 1.1 10^3/uL (0.8-4.8) 08/26/24 04:35 [place] # (Auto) 0.4 10^3/uL (0.2-0.9) 08/26/24 04:35 Eos # (Auto) 0.0 10^3/uL (0.0-0.8) 08/26/24 04:35 Baso # (Auto) 0.0 10^3/uL (0.0-0.1) 08/26/24 04:35 Nucleated RBC % (auto) 0 % 08/26/24 04:35 Nucleated RBCs # 0.0 /100WBC 08/26/24 04:35 Specimen Type Arterial 08/22/24 17:11 Sample Site Brachial, left 08/22/24 17:11 ABG pH 7.40 (7.35-7.45) 08/22/24 17:11 ABG pCO2 39.2 mmHg (35-45) 08/22/24 17:11 ABG pO2 70.6 mmHg (80.0-100.0) L 08/22/24 17:11 ABG PO2/FiO2 Ratio 235 08/22/24 17:11 ABG HCO3 24.3 mmol/L (22-26) 08/22/24 17:11 ABG Base Excess -0.3 mmol/L (-2.0-2.0) 08/22/24 17:11 Huebr Test Pos 08/22/24 17:11 Hematocrit 42.9 % (37-47) 08/22/24 17:11 O2 Delivery Device Hag 08/22/24 17:11 FiO2 30.0 % 08/22/24 17:11 Separator Inserter ID Cak 08/22/24 17:11 Sodium 137 mmol/L (136-145) 08/26/24 05:56 Potassium 4.8 mmol/L (3.5-5.1) 08/26/24 05:56 Chloride 103 mmol/L (98-107) 08/26/24 05:56 Carbon Dioxide 24 mmol/L (22-29) 08/26/24 05:56 Anion Gap 14.8 (5-19) 08/26/24 05:56 BUN 29 mg/dL (6-20) H 08/26/24 05:56 Creatinine 1.2 mg/dL (0.5-0.9) H 08/26/24 05:56 GFR Calculation 47.4 mL/min (90-130) L 08/26/24 05:56 Glucose 139 mg/dL (65-115) H 08/26/24 05:56 Calculated Osmolality 292 mOsm/kg (285-295) 08/26/24 05:56 Lactic Acid 3.1 mmol/L (0.5-2.2) H 08/22/24 15:38 Lactic Acid (Sepsis) 2.5 mmol/L (0.5-2.2) H 08/22/24 18:45 Calcium 8.9 mg/dL (8.5-10.5) 08/26/24 05:56 Magnesium 2.2 mg/dL (1.7-2.3) 08/23/24 02:47 Total Bilirubin 0.5 mg/dL (0.15-1.2) 08/22/24 15:38 AST 46 U/L (0-32) H 08/22/24 15:38 ALT 49 U/L (0-33) H 08/22/24 15:38 Alkaline Phosphatase 56 U/L (35-105) 08/22/24 15:38 Troponin T Baseline 15 ng/L (0-10) H 08/22/24 15:38 Troponin T 120 Minute 13.35 ng/L (0-10) H 08/22/24 17:35 Delta Troponin T -1.65 ABS# (0-10) L 08/22/24 17:35 C-Reactive Protein 3.8 mg/L (0.0-4.9) 08/23/24 02:47 Total Protein 6.9 g/dL (6.6-8.7) 08/22/24 15:38 Albumin 4.0 g/dL (3.5-5.2) 08/22/24 15:38 Globulin 2.9 g/dL (1.3-4.6) 08/22/24 15:38 Urine Opiates Screen Negative ng/mL (Negative) 08/23/24 02:55 Ur Barbiturates Screen Negative ng/mL (Negative) 08/23/24 02:55 Ur Phencyclidine Scrn Negative ng/mL (Negative) 08/23/24 02:55 Ur Amphetamines Screen Negative ng/mL (Negative) 08/23/24 02:55 U Benzodiazepines Scrn Negative ng/mL (Negative) 08/23/24 02:55 Urine Cocaine Screen Negative ng/mL (Negative) 08/23/24 02:55 U Marijuana (THC) Screen Positive ng/mL (Negative) H 08/23/24 02:55 Adenovirus (PCR) Not detected (NOT DETECT) 08/22/24 16:15 C. pneumoniae DNA (PCR) Not detected (NOT DETECT) 08/22/24 16:15 Coronavirus 229E (PCR) Not detected (NOT DETECT) 08/22/24 16:15 Human Metapneumovir PCR Not detected (NOT DETECT) 08/22/24 16:15 Influenza A (H1) PCR Not detected (NOT DETECT) 08/22/24 16:15 Influ A (H1/09) PCR Not detected (NOT DETECT) 08/22/24 16:15 Influenza A (H3) PCR Not detected (NOT DETECT) 08/22/24 16:15 Influenza Type A (PCR) Not detected (NOT DETECT) 08/22/24 16:15 Influenza Type B (PCR) Not detected (NOT DETECT) 08/22/24 16:15 M. pneumoniae (PCR) Not detected (NOT DETECT) 08/22/24 16:15 Parainfluenza 1 (PCR) Not detected (NOT DETECT) 08/22/24 16:15 Parainfluenza 2 (PCR) Not detected (NOT DETECT) 08/22/24 16:15 Parainfluenza 3 (PCR) Not detected (NOT DETECT) 08/22/24 16:15 Parainfluenza 4 (PCR) Not detected (NOT DETECT) 08/22/24 16:15 RSV Type A (PCR) Not detected (NOT DETECT) 08/22/24 16:15 RSV Type B (PCR) Not detected (NOT DETECT) 08/22/24 16:15 Entero/Rhino (PCR) Not detected (NOT DETECT) 08/22/24 16:15 SARS-CoV-2 (PCR) Not detected (NOT DETECT) 08/22/24 16:15 Vitals Last Vital Signs Temp 98.5 F 08/26/24 14:00 Pulse 67 08/26/24 14:00 Resp 19 H 08/26/24 14:00 BP 153/96 08/26/24 14:00 Pulse Ox 95 08/26/24 14:00 O2 Del Method CAG 08/26/24 12:00 O2 Flow Rate 3 08/25/24 16:07 FiO2 28 08/26/24 12:00 Discharge Plan Discharge Patient Disposition: Home Condition: Stable Prescriptions: New levofloxacin 750 mg Tablet 750 mg PO DAILY@0600 Qty: 5 0RF guaifenesin [Mucinex] 600 mg Tablet Extended Release 12hr 1,200 mg PO BID@0900,2100 Qty: 30 0RF Continued atorvastatin 40 mg tablet 40 mg PO BEDTIME Qty: 90 1RF metoprolol tartrate 25 mg tablet 25 mg PO BID@0900,2100 Qty: 180 1RF aspirin 81 mg Tablet,Delayed Release (Dr/Ec) 81 mg PO DAILY Qty: 30 0RF nicotine 21 mg/24 hr Patch 24 Hour 1 patch transdermal DAILY Qty: 36 0RF nicotine 14 mg/24 hr patch 24 hour 1 patch transdermal DAILY Qty: 14 0RF Rx Instructions: take after finished 21 mcg nicotine 7 mg/24 hr patch 24 hour 1 patch transdermal DAILY Qty: 14 0RF Rx Instructions: take after finished 14 mcg albuterol sulfate 2.5 mg /3 mL (0.083 %) solution for nebulization 2.5 mg INHALATION Q4H PRN (Reason: shortness of breath or wheezing) Qty: 90 0RF budesonide 0.5 mg/2 mL suspension for nebulization 0.5 mg inhalation BID PRN (Reason: Shortness Of Breath) ipratropium-albuterol 0.5 mg-3 mg(2.5 mg base)/3 mL Solution For Nebulization 3 ml INHALATION QID PRN (Reason: Shortness Of Breath Or Wheezing) clopidogrel [Plavix] 75 mg Tablet 75 mg PO DAILY prednisone 50 mg Tablet 50 mg PO DAILY paroxetine HCl 40 mg Tablet 40 mg PO DAILY hydroxyzine HCl 10 mg Tablet 10 mg PO TID PRN (Reason: Anxiety) albuterol sulfate 90 mcg/actuation HFA aerosol inhaler 2 inh inhalation Q4H PRN (Reason: shortness of breath or wheezing) Discharge Orders: Discharge Order (Routine); Ordered 08/25/24 Ordered By: Bradford Lindquist Other Ambulatory Orders: DME: Oxygen (Order) Location: None Selected Ordered By: Bradford Lindquist Referrals: Ami Silva FNP [Primary Care Provider] - 4-7 days (We have notified your physician's clinic of the need for a follow-up appointment to be scheduled. If you have not heard from them within the next 2 business days, please call them directly. ) Patient Instructions: Guaifenesin (By mouth), Levofloxacin (By mouth) (Levaquin, Levaquin Leva-jacquelin), Acute Bronchitis (GEN), Opioid Safety Activity Restrictions/Additional Instructions: Complete antibiotic course, complete prednisone course for the next 5 days for tracheobronchitis. Continue suctioning at home as needed. Continue guaifenesin to help clear secretions. Follow-up with your doctor for reassessment. Seek medical attention in case of any worsening or new concerning symptoms. Discharge Attestations Time Spent in Discharge Care*: greater than 30 min Quality Metrics Clinical Quality Measures [ No reported AMI, CVA or VTE this stay] Coding Level of Care Code 53843 Total time (in minutes) for Discharge: 40 Diagnoses Amphetamine use disorder, severe, dependence F15.20 Hypertension I10 Hypertensive urgency I16.0 Coronary artery disease involving [place] coronary artery of [place] heart without angina pectoris I25.10 Associated angina: without angina Coronary Disease-Associated Artery/Lesion type: [place] artery [place] vs. transplanted heart: [place] heart Laryngeal mass J38.7 Dysphagia R13.10 CKD (chronic kidney disease) N18.9 Cancer of larynx C32.9 Tardive dyskinesia G24.01 Hypoxic respiratory failure J96.91 COPD (chronic obstructive pulmonary disease) J44.9 Acute respiratory failure with hypoxia and hypercapnia J96.01; J96.02 Acute bronchitis J20.9 Bronchitis organism: unspecified organism Hypoxia R09.02
== END 2024-08-26 14:02 | disposition home or self-care (01) | DRG 189 ==
LOC: ER 19:32 → ICU 20:03 → CSU 20:32
PROVIDERS: Admitting Provider Internal Medicine; Emergency Provider Emergency Medicine; PCP Nurse Practitioner Family; Visit Provider Internal Medicine
DX: J96.02 Acute respiratory failure with hypercapnia (principal); F15.20 Other stimulant dependence, uncomplicated; I13.0 Hypertensive heart and chronic kidney disease with heart failure and stage 1 through stage 4 chronic kidney disease, or unspecified chronic kidney disease; I50.30 Unspecified diastolic (congestive) heart failure; J95.03 Malfunction of tracheostomy stoma; J96.01 Acute respiratory failure with hypoxia; I16.0 Hypertensive urgency; I25.10 Atherosclerotic heart disease of native coronary artery without angina pectoris; C32.9 Malignant neoplasm of larynx, unspecified; R13.10 Dysphagia, unspecified; N18.9 Chronic kidney disease, unspecified; G24.01 Drug induced subacute dyskinesia; J44.9 Chronic obstructive pulmonary disease, unspecified; F17.210 Nicotine dependence, cigarettes, uncomplicated; I25.2 Old myocardial infarction; Z95.5 Presence of coronary angioplasty implant and graft; Z79.02 Long term (current) use of antithrombotics/antiplatelets; Z79.82 Long term (current) use of aspirin
CPT/HCPCS: 36415; 36600; 70491; 71046; 71275; 80048; 80053; 80306; 82803; 83605; 83735; 84484; 85025; 86140; 87070; 87077; 87186; 87205; 87486; 87581; 87633; 93005; 94640; 94664; 94760; 94799; 96365; 96367; 96372; 96375; 99232; 99233; 99285; G0378; J0696; J1644; J2919; J3010; J3475; J3490; J7608

== ENCOUNTER 2024-10-14 00:36 | Inpatient (IN) | payer MEDICAID, SELFPAY ==
[2024-10-14] VITALS (15 sets, daily range): BP systolic 110–178; BP diastolic 73–154; PULSE 67–134; RESP 16–30; TEMP 36.6–36.8; O2SAT 92–99; BMI 25.2; BMI 28.9; BMI 28.8
--- NOTE | 2024-10-14 00:42 | XRR_ITS ---
PROCEDURE INFORMATION: Exam: XR Chest Exam date and time: 10/14/2024 12:45 AM Age: 49 years old Clinical indication: Dyspnea and shortness of breath; Prior surgery; Surgery date: 1-6 months; Surgery type: Tracheostomy; EMS arrival for resp distress. History of laryngeal cancer. TECHNIQUE: Imaging protocol: Radiologic exam of the chest. Views: 1 view. COMPARISON: CT angio chest PE protcl [id number] 08/22/2024 5:39 PM FINDINGS: Tubes, catheters and devices: Tracheostomy tube is present. Lungs: Mild central pulmonary vasculature congestive changes. No lobar consolidation. Pleural spaces: Unremarkable. No pleural effusion. No pneumothorax. Heart/Mediastinum: Unremarkable. No cardiomegaly. Bones/joints: There are old bilateral rib fractures. XR/XR chest 1V portable [id number] IMPRESSION: As above.
--- NOTE | 2024-10-14 00:44 | W.ED.SOB ---
HPI - SOB/Dyspnea General: Chief Complaint: Shortness of Breath/Dyspnea Stated Complaint: resp distress Time Seen by Provider: 10/14/24 00:42 History of Present Illness: HPI Narrative: Patient presents to the ER with respiratory distress. Patient was satting in 80s when EMS got there. They placed her on a nonrebreather over her tracheostomy at 15 L and is improved her saturation up to the 90s. Patient says she been going downhill for the last couple days but denies any fever or chills, states she has just been harder to breathe. 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 Patient follows up with a sales recruitment specialist in [place]. Patient says she normally uses 3 L of oxygen at all times. Patient's last admission for acute respiratory failure was August 2024. Patient denies any chest pain. Related Data Home Medications ?Medication ?Instructions ?Recorded ?Confirmed budesonide 0.5 mg/2 mL suspension 0.5 mg inhalation BID PRN 05/08/24 08/22/24 for nebulization Shortness Of Breath albuterol sulfate 90 mcg/actuation 2 inh inhalation Q4H PRN shortness 08/22/24 08/22/24 aerosol inhaler of breath or wheezing clopidogrel 75 mg tablet (Plavix) 75 mg PO DAILY 08/22/24 08/22/24 hydroxyzine HCl 10 mg tablet 10 mg PO TID PRN Anxiety 08/22/24 08/22/24 ipratropium 0.5 mg-albuterol 3 mg 3 ml inhalation QID PRN Shortness 08/22/24 08/22/24 (2.5 mg base)/3 mL nebulization Of Breath Or Wheezing soln paroxetine HCl 40 mg tablet 40 mg PO DAILY 08/22/24 08/22/24 prednisone 50 mg tablet 50 mg PO DAILY 08/22/24 08/22/24 Previous Rx's ?Medication ?Instructions ?Recorded aspirin 81 mg tablet,delayed 81 mg PO DAILY #30 tabs 01/15/24 release nicotine 14 mg/24 hr daily 1 patch transdermal DAILY #14 ea 01/15/24 transdermal patch nicotine 21 mg/24 hr daily 1 patch transdermal DAILY #36 ea 01/15/24 transdermal patch nicotine 7 mg/24 hr daily 1 patch transdermal DAILY #14 ea 01/15/24 transdermal patch atorvastatin 40 mg tablet 40 mg PO BEDTIME #90 tabs 02/15/24 metoprolol tartrate 25 mg tablet 25 mg PO BID@0900,2100 #180 tabs 02/15/24 albuterol sulfate 2.5 mg/3 mL 2.5 mg (3 mL) inhalation Q4H PRN 04/12/24 (0.083 %) solution for nebulization shortness of breath or wheezing #90 mL guaifenesin 600 mg tablet, 1,200 mg (2 x 600 mg) PO 08/25/24 extended release 12 hr (Mucinex) BID@0900,2100 #30 tabs levofloxacin 750 mg tablet 750 mg PO DAILY@0600 #5 tabs 08/25/24 Allergies Allergy/AdvReac Type Severity Reaction Status Date / Time hydromorphone (From Dilaudid) Allergy ADR-Migrain Verified 03/10/24 17:29 e Review of Systems General: Reports: 10 or more systems reviewed and unremarkable except in HPI and below PFSH ED PFSH: Medical History COPD (chronic obstructive pulmonary disease) CKD (chronic kidney disease) Diastolic heart failure Hypertension Coronary artery disease Coronary angiogram from 01/13 showed moderate disease in LCx and LAD?negative on IFR Abnormal stress test Cannabis use disorder, mild, abuse Amphetamine use disorder, severe, dependence Bipolar disorder in full remission Bipolar disorder Social History Smoking and tobacco/nicotine status: current every day tobacco/nicotine user cigarettes Packs smoked per day: 1.5 Years cigarettes smoked: 30 Quit status (tobacco/nicotine): not considering quitting Second hand smoke exposure: Yes Current gender identity: Female Physical Exam Const: COMMON NORMALS: no acute distress, average body habitus, patient oriented x3, no limitations, healthy appearing, alert and well nourished HENMT: COMMON NORMALS: normocephalic, atraumatic, hearing grossly normal bilaterally, external ears normal, Normal external nose present, moist oral mucous membranes and oropharynx normal HEAD & SCALP: normocephalic and atraumatic NOSE: Normal external nose present EXTERNAL EAR: Yes external ears normal Neck/C-Spine: COMMON NORMALS: no JVD OTHER: Tracheostomy in place with nonrebreather over trach Chest: COMMONS NORMALS: normal inspection of the chest and normal palpation of entire chest wall Resp: OTHER: Increased respiratory effort, tachypnea, decreased breath sounds throughout all walsh. Cardio: COMMON NORMALS: no JVD, regular rate, regular rhythm, S1 normal heart sound present, S2 normal heart sound present, No gallops present (Cardio), No clicks present (Cardio), No murmurs present (Cardio) and No rub (Cardio) RATE: regular rate RHYTHM: regular rhythm HEART SOUNDS: S1 normal heart sound present and S2 normal heart sound present GI: COMMON NORMALS: Normal to inspection, nondistended, normoactive bowel sounds present, Soft to palpation, non-tender, No hepatosplenomegaly present and no masses PALPATION: Yes Soft to palpation and Yes No hepatosplenomegaly present Neuro: COMMON NORMALS: patient oriented x3 SENSORIUM/ORIENTATION: Yes alert Course Vital Signs: Vital signs: Vital Signs Pulse Rate 90 10/14/24 02:20 Respiratory Rate 21 H 10/14/24 01:45 Blood Pressure 122/83 10/14/24 02:20 Pulse Oximetry 92 10/14/24 02:20 Oxygen Delivery [facility] 10/14/24 01:45 Oxygen Flow Rate 11 10/14/24 01:45 Fraction of Inspir ed Oxygen 50 10/14/24 00:55 MDM - SOB/Dyspnea Medical Decision Making Patient appeared with acute respiratory distress with desaturation. Respiratory was called they performed multiple deep suctions and even bagged the patient before they got several large mucous plugs up. Patient then settled down a little bit however she ended up on 11 L of oxygen with humidity to keep her saturations up. She is negative for COVID influenza and RSV, lab work essentially unremarkable, white count 14.9, BUN/creatinine slightly elevated at 47 and 1.3, lactic acid 1.6, patient was given 125 mg Solu-Medrol, 1 DuoNeb. Since patient still requiring oxygen above her baseline we will place her in observation, Dr. Blank was consulted and agreed for observation for evaluation treatment. Medical Records I reviewed the patient's medical records. Lab Data I reviewed the patient's lab results. 10/14/24 01:17 10/14/24 01:17 Labs/Radiology: Radiology Impressions Chest X-Ray 10/14/24 00:42 IMPRESSION: As above. Laboratory Results WBC 14.99 10^3/uL (3.29-11.43) H 10/14/24 01:17 RBC 4.41 10^6/uL (3.85-5.65) 10/14/24 01:17 Hgb 13.10 g/dL (11.27-16.99) 10/14/24 01:17 Hct 41.1 % (36-47) 10/14/24 01:17 MCV 93.2 fl (85-98) 10/14/24 01:17 MCH 29.7 pg (27-33) 10/14/24 01:17 MCHC 31.9 g/dL (30-55) 10/14/24 01:17 RDW 14.5 % (12.1-15.1) 10/14/24 01:17 Plt Count 245 10^3/cmm (157-399) 10/14/24 01:17 MPV 9.1 fL (7.4-10.4) 10/14/24 01:17 Neut % (Auto) 82.6 % 10/14/24 01:17 Lymph % (Auto) 9.7 % 10/14/24 01:17 [place] % (Auto) 6.3 % 10/14/24 01:17 Eos % (Auto) 0.4 % 10/14/24 01:17 Baso % (Auto) 0.2 % 10/14/24 01:17 Neut # (Auto) 12.38 10^3/uL (1.8-7.7) H 10/14/24 01:17 Lymph # (Auto) 1.5 10^3/uL (0.8-4.8) 10/14/24 01:17 [place] # (Auto) 0.9 10^3/uL (0.2-0.9) 10/14/24 01:17 Eos # (Auto) 0.1 10^3/uL (0.0-0.8) 10/14/24 01:17 Baso # (Auto) 0.0 10^3/uL (0.0-0.1) 10/14/24 01:17 Nucleated RBC % (auto) 0 % 10/14/24 01:17 Nucleated RBCs # 0.0 /100WBC 10/14/24 01:17 Specimen Type Arterial 10/14/24 02:22 Sample Site Brachial, right 10/14/24 02:22 ABG pH 7.39 (7.35-7.45) 10/14/24 02:22 ABG pCO2 53.5 mmHg (35-45) H 10/14/24 02:22 ABG pO2 96.1 mmHg (80.0-100.0) 10/14/24 02:22 ABG PO2/FiO2 Ratio 192 10/14/24 02:22 ABG HCO3 32.4 mmol/L (22-26) H 10/14/24 02:22 ABG O2 Saturation 97.9 10/14/24 02:22 ABG Base Excess 6.0 mmol/L (-2.0-2.0) H 10/14/24 02:22 Hbuer Test N/a 10/14/24 02:22 A-a O2 Gradient 25.9 mmHg (5-10) H 10/14/24 02:22 Hematocrit 40.1 % (37-47) 10/14/24 02:22 Hgb O2 Saturation 95.9 % (95-100) 10/14/24 02:22 Carboxyhemoglobin 1.0 %THgb (0.4-20.1) 10/14/24 02:22 Methemoglobin 1.0 % (0.4-1.5) 10/14/24 02:22 Total Hemoglobin 13.1 g/dL (12-16) 10/14/24 02:22 Sodium 137.0 mmol/L (131-143) 10/14/24 02:22 Potassium 3.8 mmol/L (3.5-5.0) 10/14/24 02:22 Glucose 167.0 mg/dL (70-115) H 10/14/24 02:22 Ionized Calcium 1.3 mmol/L (1.1-1.4) 10/14/24 02:22 O2 Delivery Device Hag 10/14/24 02:22 O2 Liters/Min 12.0 % 10/14/24 02:22 FiO2 50.0 % 10/14/24 02:22 Wood Tool Maker ID [email or web address] 10/14/24 02:22 Sodium 140 mmol/L (136-145) 10/14/24 01:17 Potassium 4.5 mmol/L (3.5-5.1) 10/14/24 01:17 Chloride 95 mmol/L (98-107) L 10/14/24 01:17 Carbon Dioxide 31 mmol/L (22-29) H 10/14/24 01:17 Anion Gap 18.5 (5-19) 10/14/24 01:17 BUN 47 mg/dL (6-20) H 10/14/24 01:17 Creatinine 1.3 mg/dL (0.5-0.9) H 10/14/24 01:17 GFR Calculation 43.2 mL/min (90-130) L 10/14/24 01:17 Glucose 189 mg/dL (65-115) H 10/14/24 01:17 Calculated Osmolality 307 mOsm/kg (285-295) H 10/14/24 01:17 Lactic Acid 1.6 mmol/L (0.5-2.2) 10/14/24 01:17 Calcium 9.0 mg/dL (8.5-10.5) 10/14/24 01:17 Magnesium 2.1 mg/dL (1.7-2.3) 10/14/24 01:17 Total Bilirubin 0.4 mg/dL (0.15-1.2) 10/14/24 01:17 AST 29 U/L (0-32) 10/14/24 01:17 ALT 33 U/L (0-33) 10/14/24 01:17 Alkaline Phosphatase 77 U/L (35-105) 10/14/24 01:17 Troponin T Baseline 22 ng/L (0-10) H 10/14/24 01:17 Total Protein 6.9 g/dL (6.6-8.7) 10/14/24 01:17 Albumin 3.9 g/dL (3.5-5.2) 10/14/24 01:17 Globulin 3.0 g/dL (1.3-4.6) 10/14/24 01:17 Procalcitonin 0.35 ng/mL (0-0.5) 10/14/24 01:17 Influenza A (PCR) Negative (Negative) 10/14/24 01:34 Influenza Type B (PCR) Negative (Negative) 10/14/24 01:34 RSV (PCR) Negative (Negative) 10/14/24 01:34 SARS-CoV-2 (PCR) Negative (Negative) 10/14/24 01:34 All radiology interpretation(s) finalized by discharge Discharge Plan Discharge Patient Disposition: Placed in Observation Clinical Impression: Acute hypoxemic respiratory failure Coding Level of Care Code ED Transition Program Manager for Shara Zaldivar
[2024-10-14] MEDS: ipratropium-albuterol 3 mL Neb INHALATION ×2 (00:55→07:59)
[2024-10-14] MEDS: methylPREDNISolone sod succ 125 mg/2 mL INJ IVP (01:25)
--- NOTE | 2024-10-14 01:28 | ECG_ITS ---
[facility] Test Date: 2024-10-14 Pat Name: Yamileth Feliciano Department: Room: 272 Gender: Female Drum Sprayer: : 1975 Requested By: Westley Yin Order Number: [id number] Reading MD: ASIA PAIZ Measurements Intervals [place] Rate: 113 P: 47 TN: 149 QRS: -25 QRSD: 83 T: 78 QT: 362 QTc: 497 Interpretive Statements SINUS TACHYCARDIA POSSIBLE LEFT ATRIAL ENLARGEMENT [-0.1mV P-WAVE IN V1/V2] BORDERLINE LEFT AXIS DEVIATION [QRS AXIS < -20] LEFT VENTRICULAR HYPERTROPHY AND ST-T CHANGE [VOLTAGE CRITERIA PLUS ST/T ABNORMALITY] Compared to ECG 08/22/2024 15:57:17 Left ventricular hypertrophy now present ST (T wave) deviation now present Sinus rhythm no longer present Incomplete right bundle-branch block no longer present Myocardial infarct finding no longer present Electronically Signed On 10-17-2024 23:41:48 ASSISTANT PROSECUTING ATTORNEY by ASIA PAIZ [id number]
[2024-10-14 01:29] LABS: Basophils % 0.2 %; Eosinophils # 0.1 10^3/uL (0.0-0.8); Eosinophils % 0.4 %; Hematocrit 41.1 % (36-47); Lymphocytes # 1.5 10^3/uL (0.8-4.8); Lymphocytes % 9.7 %; Mean Corpuscular HGB Conc 31.9 g/dL (30-55); Mean Corpuscular Hemoglobin 29.7 pg (27-33); Mean Corpuscular Volume 93.2 fl (85-98); Mean Platelet Volume 9.1 fL (7.4-10.4); Monocytes # 0.9 10^3/uL (0.2-0.9); Monocytes % 6.3 %; Neutrophils # 12.38 10^3/uL (1.8-7.7); Neutrophils % 82.6 %; Nucleated Red Blood Cells % 0 %; Platelet Count 245 10^3/cmm (157-399); Red Blood Count 4.41 10^6/uL (3.85-5.65); Red Cell Distribution Width 14.5 % (12.1-15.1); White Blood Count 14.99 10^3/uL (3.29-11.43)
[2024-10-14 01:43] LABS: Troponin(5th) Baseline 22 ng/L (0-10)
[2024-10-14 01:45] LABS: Lactic Sepsis W/Reflex 1.6 mmol/L (0.5-2.2)
[2024-10-14 01:46] LABS: Alanine Aminotransferase 33 U/L (0-33); Albumin Level 3.9 g/dL (3.5-5.2); Alkaline Phosphatase 77 U/L (35-105); Anion Gap 18.5 (5-19); Aspartate Amino Transferase 29 U/L (0-32); Blood Urea Nitrogen 47 mg/dL (6-20); Carbon Dioxide 31 mmol/L (22-29); Chloride 95 mmol/L (98-107); Creatinine Clr Calc Pharmacy 49.9309; Glomerular Filtration Rate 43.2 mL/min (90-130); Glucose 189 mg/dL (65-115); Magnesium 2.1 mg/dL (1.7-2.3); Osmolality Calculated 307 mOsm/kg (285-295); Potassium 4.5 mmol/L (3.5-5.1); Sodium 140 mmol/L (136-145); Total Bilirubin 0.4 mg/dL (0.15-1.2); Total Protein 6.9 g/dL (6.6-8.7)
[2024-10-14 01:53] LABS: Procalcitonin 0.35 ng/mL (0-0.5)
[2024-10-14 02:14] LABS: Influenza A NEGATIVE (Negative); Influenza B NEGATIVE (Negative); Respiratory Syncytial Virus Ce NEGATIVE (Negative); SARS-CoV-2 PCR NEGATIVE (Negative)
[2024-10-14 02:31] LABS: ABG PCO2 53.5 mmHg (35-45); ABG PH Result 7.39 (7.35-7.45); Alveolar-Arterial Oxygen Gradi 25.9 mmHg (5-10); Arterial Blood Gas Hematocrit 40.1 % (37-47); Blood Gas Sample Site Brachial, right; Blood Gas Sample Type Arterial; HCO3 ABG 32.4 mmol/L (22-26); HGB O2 Sat 95.9 % (95-100); Ionized Calcium Level - ABG 1.3 mmol/L (1.1-1.4); Oxygen Device HAG; Oxygen Saturation ABG 97.9; PO2 ABG 96.1 mmHg (80.0-100.0); PO2 FiO2 Ratio Arterial Blood 192; Potassium Level - ABG 3.8 mmol/L (3.5-5.0); Total Hemoglobin 13.1 g/dL (12-16)
--- NOTE | 2024-10-14 02:45 | PC.RESP ---
When RT arrived into room patient was diaphoretic, reardon and becoming unresponsive. RT applied ambu-bag to patient and ventilated her until SpO2 increased and patient became responsive. RT then deep tracheal suctioned patient and was able to remove several small dried mucus plugs as well as large amounts of copious secretions cream in color. Patient was then placed on 12LPM 50% FiO2 HAG. Patient is much more comfortable, breathing is regular and SpO2 is 95% on current settings. Physician and nurse at bedside when all of this occurred.
[2024-10-14 02:55] LABS: NT Pro B Type Natriuretic Pept 1698 pg/mL (0-125)
[2024-10-14 04:02] LABS: Troponin 5 2HR 39.94 ng/L (0-10)
[2024-10-14 04:03] LABS: Troponin 5 2HR Delta 17.94 ABS# (0-10)
--- NOTE | 2024-10-14 04:37 | PC.NURSE ---
Bedside report given to Felipa OCAMPO on MS. All questions and concerns were addressed at time of report.
--- NOTE | 2024-10-14 04:47 | ECG_ITS ---
[facility] Date[facility]24-10-14 Pat Name: Yamileth Feliciano Department: Room: 272 Gender: Female Cost Accounting Manager: : 1975 Requested By: Westley Yin Order Number: [id number] Reading MD: ASIA PAIZ Measurements Intervals [place] Rate: 72 P: 28 MI: 156 QRS: 85 QRSD: 84 T: -4 QT: 440 QTc: 485 Interpretive Statements SINUS RHYTHM POSSIBLE LEFT ATRIAL ENLARGEMENT [-0.1mV P-WAVE IN V1/V2] MODERATE ST DEPRESSION [0.05+ mV ST DEPRESSION] ABNORMAL QRS-T ANGLE [QRS-T AXIS DIFFERENCE > 60] Compared to ECG 10/14/2024 01:28:31 Sinus tachycardia no longer present Left ventricular hypertrophy no longer present ST (T wave) deviation still present Electronically Signed On 10-17-2024 23:51:33 POLITICAL ORGANIZER by ASIA PAIZ [id number] [id number]
--- NOTE | 2024-10-14 04:58 | PM.HP ---
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 Patient is stating that she has been feeling sick for last few days, she has not noted significant secretions through her tracheostomy tube but she has been weak and lethargic and more short of breath, on arrival she was put on 11 L of oxygen viaHAG, x-ray consistent with pulm edema and pneumonia. At the time of my evaluation patient saturating 94% on 6 L HAG Review of Systems Const: Reports: chills Eyes: Denies: change in vision ENMT: Denies: throat pain Card: Denies: chest pain Resp: Reports: dyspnea GI: Denies: abdominal pain : Denies: flank pain Medications/Allergies Home Medications ?Medication ?Instructions ?Recorded ?Confirmed ?Last Taken ?Type aspirin 81 mg tablet,delayed 81 mg PO DAILY #30 tabs 01/15/24 08/22/24 Unknown Rx release nicotine 14 mg/24 hr daily 1 patch transdermal DAILY #14 ea 01/15/24 08/22/24 Unknown Rx transdermal patch nicotine 21 mg/24 hr daily 1 patch transdermal DAILY #36 ea 01/15/24 08/22/24 Unknown Rx transdermal patch nicotine 7 mg/24 hr daily 1 patch transdermal DAILY #14 ea 01/15/24 08/22/24 Unknown Rx transdermal patch atorvastatin 40 mg tablet 40 mg PO BEDTIME #90 tabs 02/15/24 08/22/24 Unknown Rx metoprolol tartrate 25 mg tablet 25 mg PO BID@0900,2100 #180 tabs 02/15/24 08/22/24 Unknown Rx albuterol sulfate 2.5 mg/3 mL 2.5 mg (3 mL) inhalation Q4H PRN 04/12/24 08/22/24 Unknown Rx (0.083 %) solution for nebulization shortness of breath or wheezing #90 mL budesonide 0.5 mg/2 mL suspension 0.5 mg inhalation BID PRN 05/08/24 08/22/24 Unknown History for nebulization Shortness Of Breath albuterol sulfate 90 mcg/actuation 2 inh inhalation Q4H PRN shortness 08/22/24 08/22/24 Unknown History aerosol inhaler of breath or wheezing clopidogrel 75 mg tablet (Plavix) 75 mg PO DAILY 08/22/24 08/22/24 Unknown History hydroxyzine HCl 10 mg tablet 10 mg PO TID PRN Anxiety 08/22/24 08/22/24 Unknown History ipratropium 0.5 mg-albuterol 3 mg 3 ml inhalation QID PRN Shortness 08/22/24 08/22/24 Unknown History (2.5 mg base)/3 mL nebulization Of Breath Or Wheezing soln paroxetine HCl 40 mg tablet 40 mg PO DAILY 08/22/24 08/22/24 Unknown History prednisone 50 mg tablet 50 mg PO DAILY 08/22/24 08/22/24 Unknown History guaifenesin 600 mg tablet, 1,200 mg (2 x 600 mg) PO 08/25/24 Unknown Rx extended release 12 hr (Mucinex) BID@0900,2100 #30 tabs levofloxacin 750 mg tablet 750 mg PO DAILY@0600 #5 tabs 08/25/24 Unknown Rx Allergies Allergy/AdvReac Type Severity Reaction Status Date / Time hydromorphone (From Dilaudid) Allergy ADR-Migrain Verified 03/10/24 17:29 e PFSH Acute PFSH: Medical History COPD (chronic obstructive pulmonary disease) CKD (chronic kidney disease) Diastolic heart failure Hypertension Coronary artery disease Coronary angiogram from 01/13 showed moderate disease in LCx and LAD?negative on IFR Abnormal stress test Cannabis use disorder, mild, abuse Amphetamine use disorder, severe, dependence Bipolar disorder in full remission Bipolar disorder Social History Smoking and tobacco/nicotine status: current every day tobacco/nicotine user cigarettes Packs smoked per day: 1.5 Years cigarettes smoked: 30 Quit status (tobacco/nicotine): not considering quitting Second hand smoke exposure: Yes Current gender identity: Female Vitals/I&O/Wt Last Vital Signs Pulse 90 10/14/24 04:37 Resp 16 02/22/25 03:14 BP 112/73 10/14/24 04:37 Pulse Ox 98 10/14/24 04:37 O2 Del Method [facility] 10/14/24 01:45 O2 Flow Rate 11 10/14/24 01:45 FiO2 50 10/14/24 00:55 Weight last 48 hrs Weight 68.946 kg Physical Exam Narrative: [facility] 6 L saturating 94% S1, S2 No active chest pain No significant secretions around tracheostomy tube Bilateral rhonchi with crackles Clinically does not look fluid overloaded Abdomen soft with PEG tube GCS 15 No active focal deficit Pleasant Laying supine Hemodynamically stable Data 10/14/24 01:17 10/14/24 01:17 A&P Assessment and plan (1) Diastolic heart failure: (2) Laryngeal mass: (3) Dysphagia: (4) CKD (chronic kidney disease): (5) Cancer of larynx: (6) Tardive dyskinesia: (7) Hypoxic respiratory failure: (8) COPD (chronic obstructive pulmonary disease): (9) Pneumonia: Plan Acute on chronic hypoxia related to pneumonia Patient has recently started radiation therapy along chemo She was recently hospitalized for pneumonia as well I will cover her with Zosyn and cefepime for now Previous MRSA nares was negative Currently on 6 L HAG If her hypoxia gets worse or patient becomes tachycardic then she may need CTA chest rule out PE otherwise at this point I would hold off on CTA chest Elevated troponin No active chest pain Will request echo to see if there is any wall motion abnormality Patient not complaining of any chest discomfort at all EKG not showing any ischemic or infarctive changes PEG tube feeds: Jevity 1.2: With water flushes requested Full code Continue dual antiplatelet therapy patient recently had a stent April last year PDMP PDMP Reviewed: Not Reviewed Attestations Medical Necessity Statement*: Anticipating more than 2 midnights for management of pneumonia acute on chronic hypoxia Diagnoses Diastolic heart failure I50.30 Laryngeal mass J38.7 Dysphagia R13.10 CKD (chronic kidney disease) N18.9 Cancer of larynx C32.9 Tardive dyskinesia G24.01 Hypoxic respiratory failure J96.91 COPD (chronic obstructive pulmonary disease) J44.9 Pneumonia J18.9
--- NOTE | 2024-10-14 05:13 | USCV_ITS ---
Yamileth Feliciano Age: 49 Gender: F : 1975 Exam Date: 10/14/2024 11:37 Ordering Phys: Natalia Blank MD Technologist: Exam Location: [facility] [place] Indication: cp BP: 124 / 67 HR: Rhythm: Sinus Technical Quality: Adequate MEASUREMENTS (Male / Female) Normal Values 2D ECHO LV Diastolic Diameter PLAX 4.3 cm 4.2 - 5.9 / 3.9 - 5.3 cm IVS Diastolic Thickness 1.4 cm 0.6 - 1.0 / 0.6 - 0.9 cm IVS Systolic Thickness 1.4 cm LVPW Diastolic Thickness 1.3 cm 0.6 - 1.0 / 0.6 - 0.9 cm LVPW Systolic Thickness 1.1 cm LVOT Diameter 1.9 cm LV Ejection Fraction 2D Teich 67.4 % LV Ejection Fraction MOD 4C 57.3 % LV Ejection Fraction MOD 2C 62.2 % LV Ejection Fraction 2C AL 62.6 % LA Diameter 3.4 cm RA Systolic Volume 4C AL 26.6 ml RA Systolic Volume 4C MOD 27.3 ml Aorta at Sinotubular Diameter 2.1 cm M-MODE LA Ao Ratio MM 1.3 AV Cusp Separation MM 2.0 cm FINDINGS Left Ventricle Left ventricle is normal in size. LV systolic function is normal with EF 55 to 60%. No regional wall motion abnormalities are seen. Right Ventricle Normal in size and function Right Atrium Normal in size Left Atrium Normal in size Mitral Valve Mild mitral annular calcification. Aortic Valve Aortic valve is thickened. Tricuspid Valve Insufficient TR jet to calculate RVSP Pulmonic Valve Not well visualized Pericardium Normal Aorta Normal in size IVC Not visualized CONCLUSIONS LV systolic function is normal with EF of 55-60% Doppler exam not performed for valvular structures Jarrell Steiner MD (Electronically Signed) Final Date: 15 October 2024 10:26 S
[2024-10-14] MEDS: cefepime 2,000 mg SDV 2000 MG IVP ×2 (06:02→17:59)
[2024-10-14] MEDS: morphine 4 mg/mL SDV 1 mL 2 MG IVP ×2 (06:02→10:21)
[2024-10-14] MEDS: enoxaparin 40 mg/0.4 mL Syringe SUBCUT (06:02)
[2024-10-14 07:56] LABS: Troponin 5 6HR 41.42 ng/L (0-10)
[2024-10-14 08:20] LABS: Troponin 5 6HR Delta 19.42 ng/L (0-12)
--- NOTE | 2024-10-14 10:15 | ECG_ITS ---
[facility] Test Date: 2024-10-14 Pat Name: Yamileth Feliciano Department: Room: 272 Gender: Female Associate Professor Of Geology: : 1975 Requested By: Westley Yin Order Number: [id number] Reading MD: ASIA PAIZ Measurements Intervals [place] Rate: 82 P: 34 [place]: 152 QRS: -14 QRSD: 86 T: 51 QT: 424 QTc: 497 Interpretive Statements SINUS RHYTHM POSSIBLE LEFT ATRIAL ENLARGEMENT [-0.1mV P-WAVE IN V1/V2] LEFT VENTRICULAR HYPERTROPHY AND ST-T CHANGE [VOLTAGE CRITERIA PLUS ST/T ABNORMALITY] Compared to ECG 10/14/2024 04:47:03 Left ventricular hypertrophy now present ST (T wave) deviation still present Electronically Signed On 10-17-2024 23:51:26 MANAGER PLAN by ASIA PAIZ [email or web address] [id number]
[2024-10-14] MEDS: heparin drip 25,000 UNIT/500 ML PREMIX 22 UNIT IV (10:19)
[2024-10-14] MEDS: heparin 5,000 unit/mL INJ 1 mL IVP (10:20)
--- OUTSIDE RECORDS SUMMARY | 2024-10-14 10:34 | XMS_ITS | Encounter Summary ---
Author Organization [facility] Address [address] [place] [address] Care Team Providers Care Surveyor Helper Rod Name Role Phone Unavailable Primary Care Provider Unavailabl e Encounter Details Date Type Department Care Team (Late Contact Info) Description 10/05/2024 Orders Only [facility] Cancer and Hematology [place] [address] [place] [address] Guerda Castillo NP [address] [place] [address] Laryngeal squamous cell carcinoma (CMS/HCC) Social History Tobacco Use Types Packs/Day Years Used Date Smoking Tobacco: Every Day Cigarettes Smokeless Tobacco: Never Alcohol Use Standard Drinks/Week Comments No 0 (1 standard drink = 0.6 oz pur e alcohol) Feeling Safe Answer Date Recorded Are you in a relationship wi th someone who hurts you emotionally and/or physically? No 09/13/2024 Housing Stability Answer Date Recorded Social/Environmental Concerns Homeless Comments No Sex and Gender Information Value Date Recorded Sex Assigned at Not on file Legal Sex Female 1:37 AM BILLING COLLECTIONS SPECIALIST Gender Identity Not on file Sexual Orientation Not on file documented as of this encounter Plan of Treatment Upcoming Encounters Date Type Department Care Team (Late Contact Info) Description 10/16/2024 11:00 AM BILLING COLLECTIONS SPECIALIST Appointment [facility] Oncology [facility] [address] [place] [address] Rashmi Dumont MD [address] [place] [address] [address] [place] [address] [facility], [facility] 8 10/16/2024 1:45 PM BILLING COLLECTIONS SPECIALIST Appointment [address] [address] Karla Goldberg MD [address] [place] [phone] 10/17/2024 1:45 PM BILLING COLLECTIONS SPECIALIST Appointment [address] [phone] Karla Goldberg MD [address] [place] [phone] 10/18/2024 1:45 PM BILLING COLLECTIONS SPECIALIST Appointment [address] [phone] Karla Goldberg MD [address] [place] [phone] 10/19/2024 1:45 PM BILLING COLLECTIONS SPECIALIST Appointment [address] [phone] Karla Goldberg MD [address] [place] [phone] 10/20/2024 1:45 PM BILLING COLLECTIONS SPECIALIST Appointment [address] [phone] Karla Goldberg MD [address] [place] [phone] 10/23/2024 1:45 PM BILLING COLLECTIONS SPECIALIST Appointment [address] [place] [address] Karla Goldberg MD [address] [place] [phone] 10/24/2024 11:30 AM BILLING COLLECTIONS SPECIALIST Office Visit [facility] Ear Nose and Throat Head Neck SGF [address] [place] [address] Chris Flores MD [address] [place] [address]51- 10/24/2024 1:45 PM BILLING COLLECTIONS SPECIALIST Appointment [address] [address] Karla Goldberg MD [address] [place] [phone] 10/25/2024 1:45 PM BILLING COLLECTIONS SPECIALIST Appointment [address] [address] Karla Goldberg MD [address] [place] [phone] 10/26/2024 1:45 PM BILLING COLLECTIONS SPECIALIST Appointment [address] [phone] Karla Goldberg MD [address] [place] [phone] 10/27/2024 1:45 PM BILLING COLLECTIONS SPECIALIST Appointment [address] [place] [address] Karla Goldberg MD [address] [place] [phone] 10/30/2024 1:45 PM CDT Appointment [address] [phone] Karla Goldberg MD [address] [place] [phone] 10/31/2024 1:45 PM CDT Appointment [address] [phone] Karla Goldberg MD [address] [place] [phone] 11/01/2024 1:45 PM CDT Appointment [address] [phone] Karla Goldberg MD [address] [place] [phone] 11/02/2024 1:45 PM CDT Appointment [address] [phone] Karla Goldberg MD [address] [place] [phone] 11/03/2024 1:45 PM CDT Appointment [address] [phone] Karla Goldberg MD [address] [place] [phone] 11/06/2024 1:45 PM CDT Appointment [address] [phone] Karla Goldberg MD [address] [place] [phone] 11/07/2024 1:45 PM CDT Appointment [address] [address] Karla Goldberg MD [address] [place] [phone] 11/08/2024 1:45 PM CDT Appointment [address] [phone] Karla Goldberg MD [address] [place] [phone] 11/09/2024 1:45 PM CDT Appointment [address] [phone] Karla Goldberg MD [address] [place] [phone] 11/10/2024 1:45 PM CDT Appointment [address] [phone] Karla Goldberg MD [address] [place] [phone] 11/13/2024 1:45 PM CDT Appointment [address] [phone] Karla Goldberg MD [address] [place] [phone] 11/14/2024 1:45 PM CDT Appointment [address] [phone] Karla Goldberg MD [address] [place] [phone] 11/15/2024 12:45 PM CDT Appointment [address] [phone] Karla Goldberg MD [address] [place] [phone] 11/16/2024 12:45 PM CDT Appointment [address] [phone] Karla Goldberg MD [address] [place] [phone] 11/17/2024 1:45 PM CDT Appointment [address] [phone] Karla Goldberg MD [address] [place] [phone] 11/20/2024 1:45 PM CDT Appointment [address] [phone] Karla Goldberg MD [address] [place] [phone] 11/21/2024 1:45 PM CDT Appointment [address] [phone] Karla Goldberg MD [address] [place] [phone] 11/22/2024 1:45 PM CDT Appointment [address] [phone] Karla Goldberg MD [address] [place] [phone] 11/23/2024 1:45 PM CDT Appointment [address] [phone] Karla Goldberg MD [address] [place] [phone] 11/24/2024 1:45 PM CDT Appointment [address] [phone] Karla Goldberg MD [address] [place] [phone] 11/27/2024 1:45 PM CDT Appointment [address] [phone] Karla Goldberg MD [address] [place] [phone] 11/28/2024 1:45 PM CDT Appointment [facility] Radiation [facility] [address] [place] [address] Karla Goldberg MD [address] [place] [address] documented as of this encounter Procedures Procedure Name Priority Date/Time Associated Diagnosis Comments CBC WITH DIFFERENTIAL Stat 10/05/2024 7:45 AM BILLING COLLECTIONS SPECIALIST Laryngeal squamous cell carcinoma (CMS/HCC) MAGNESIUM LEVEL Stat 10/05/2024 7:45 AM BILLING COLLECTIONS SPECIALIST Laryngeal squamous cell carcinoma (CMS/HCC) COMPREHENSIVE METABOLIC PANEL Stat 10/05/2024 7:45 AM BILLING COLLECTIONS SPECIALIST Laryngeal squamous cell carcinoma (CMS/HCC) documented in this encounter Results * MAGNESIUM LEVEL (10/05/2024 7:45 AM BILLING COLLECTIONS SPECIALIST) Pathologist [facility] MAGNESIUM 1.7 1.6 - 2.6 mg/dL 10/05/2024 8:15 AM BILLING COLLECTIONS SPECIALIST [facility] Blood Venipuncture / Unknown 10/05/2024 7:45 AM BILLING COLLECTIONS SPECIALIST 10/05/2024 7:48 AM BILLING COLLECTIONS SPECIALIST us Guerda Castillo GENERAL ASSISTANT CHEMISTRY ORDERABLES Final Res ult [facility] [place] CLIA# [id number] [phone] [place] [address] * (ABNORMAL) COMPREHENSIVE METABOLIC PANEL (10/05/2024 7:45 AM BILLING COLLECTIONS SPECIALIST) Pathologist [facility] SODIUM 136 136 - 145 mmol/L 10/05/2024 8:15 AM BILLING COLLECTIONS SPECIALIST [facility] [place] POTASSIUM 3.2(L) 3.5 - 5.1 mmol/L 10/05/2024 8:15 AM BILLING COLLECTIONS SPECIALIST [facility] [place] CHLORIDE 104 98 - 107 mmol/L 10/05/2024 8:15 AM [facility] [place] CO2 18(L) 22 - 29 mmol/L 10/05/2024 8:15 AM [facility] [place] CALCIUM 9.6 8.6 - 10.0 mg/dL 10/05/2024 8:15 AM [facility] [place] BUN 10 6 - 20 mg/dL 10/05/2024 8:15 AM [facility] [place] CREATININE 1.14(H) 0.51 - 0.95 mg/dL 10/05/2024 8:15 AM [facility] [place] GLUCOSE 129(H) 74 - 99 mg/dL 10/05/2024 8:15 AM [facility] [place] TOTAL PROTEIN 8.0 6.4 - 8.3 g/dL 10/05/2024 8:15 AM [facility] [place] ALBUMIN 4.1 3.5 - 5.2 g/dL 10/05/2024 8:15 AM [facility] [place] BILIRUBIN TOTAL 0.5 0.2 - 1.0 mg/dL 10/05/2024 8:15 AM [facility] [place] ALKALINE PHOSPHATASE 70 35 - 104 U/L 10/05/2024 8:15 AM [facility] [place] AST 24 <=33 U/L 10/05/2024 8:15 AM [facility] [place] ALT 17 <=33 U/L 10/05/2024 8:15 AM [facility] [place] GFR 58(L) >=60 mL/min/1.7 3 sq meter 10/05/2024 8:15 AM [facility] [place] Comment:eGFR calculated with 2020 CKD-EPI equation. Vegetarian diet, extremely high or low muscle mass, and may affect results. Cystatin C with Glomerular Filtration Rate is a suitable alternative for these patients. ANION GAP 14 9 - 20 mmol/L 10/05/2024 8:15 AM [facility] [place] Blood Venipuncture / Unknown 10/05/2024 7:45 AM BILLING COLLECTIONS SPECIALIST 10/05/2024 7:48 AM BILLING COLLECTIONS SPECIALIST us Guerda Castillo NP CHEMISTRY ORDERABLES Final Res ult [facility] [place] COELLO# [id number] [phone] [place] [address] * (ABNORMAL) CBC WITH DIFFERENTIAL (10/05/2024 7:45 AM BILLING COLLECTIONS SPECIALIST) WBC 10.2 4.8 - 10.8 K/uL 10/05/2024 7:50 AM [facility] [place] RBC 4.49 4.20 - 5.40 M/uL 10/05/2024 7:50 AM [facility] [place] HEMOGLOBIN 13.5 12.0 - 16.0 g/dL 10/05/2024 7:50 AM [facility] [place] HEMATOCRIT 40.3 36.0 - 46.0 % 10/05/2024 7:50 AM [facility] [place] MCV 89.8 82.0 - 100.0 fL 10/05/2024 7:50 AM [facility] [place] MCH 30.1 27.0 - 34.0 pg 10/05/2024 7:50 AM [facility] [place] MCHC 33.5 31.0 - 37.0 g/dL 10/05/2024 7:50 AM [facility] [place] RDW 13.4 11.0 - 14.5 % 10/05/2024 7:50 AM [facility] [place] RDW-STDEV 43.2 37.0 - 54.0 fL 10/05/2024 7:50 AM [facility] [place] PLATELETS 313 140 - 440 K/uL 10/05/2024 7:50 AM [facility] [place] MPV 9.1 8.9 - 12.8 fL 10/05/2024 7:50 AM [facility] [place] NEUTROPHILS 74 42 - 75 % 10/05/2024 7:50 AM [facility] [place] LYMPHOCYTES 21(L) 24 - 44 % 10/05/2024 7:50 AM [facility] [place] MONOCYTES 4 2 - 10 % 10/05/2024 7:50 AM [facility] [place] EOSINOPHILS 1 0 - 7 % 10/05/2024 7:50 AM [facility] [place] BASOPHILS 0 0 - 1 % 10/05/2024 7:50 AM [facility] [place] IMMATURE GRANULOCYTES 0 0 - 2 % 10/05/2024 7:50 AM [facility] [place] NEUTROPHIL ABSOLUTE 7.49(H) 1.40 - 6.50 K/uL 10/05/2024 7:50 AM [facility] [place] LYMPHOCYTE ABSOLUTE 2.11 1.20 - 4.00 K/uL 10/05/2024 7:50 AM [facility] [place] MONOCYTE ABSOLUTE 0.45 0.10 - 0.60 K/uL 10/05/2024 7:50 AM [facility] [place] EOSINOPHIL ABSOLUTE 0.06 0.00 - 0.70 K/uL 10/05/2024 7:50 AM [facility] [place] BASOPHILS ABSOLUTE 0.04 0.00 - 0.20 K/uL 10/05/2024 7:50 AM [facility] [place] IMMATURE GRANULOCYTES ABSOLUTE 0.04 0.00 - 0.10 K/uL 10/05/2024 7:50 AM [facility] [place] Blood Venipuncture / Unknown 10/05/2024 7:45 AM BILLING COLLECTIONS SPECIALIST 10/05/2024 7:48 AM BILLING COLLECTIONS SPECIALIST us Guerda Castillo NP HEMATOLOGY ORDERABLES Final Re sult [facility] CLIA# [id number] [phone] [place] [address] documented in this encounter Visit Diagnoses Diagnosis Laryngeal squamous cell carcinoma (CMS/HCC) Malignant neoplasm of larynx, unspecified site documented in this encounter Additional Health Concerns Infection Onset Date Last Indicated Resolved Time Respiratory Syncytial Virus (RSV) 09/14/2024 025 10/12/2024 1:16 AM BILLING COLLECTIONS SPECIALIST Assessment Noted Time PHQ-9 Depression Total Score: 1 04/20/20 24 11:16 PM CDT documented as of this encounter
--- OUTSIDE RECORDS SUMMARY | 2024-10-14 10:34 | XMS_ITS | Encounter Summary ---
Author Organization [facility] Address [address] [place] [address] Care Team Providers Care Frontload Driver Name Role Phone Unavailable Primary Care Provider Unavailabl e Reason for Visit * Reason Comments Cancer Transportation Issue s Encounter Details Date Type Department Care Team (Late st Contact Info) Description 10/05/2024 Chart Note [facility] Resource [facility] [address] [facility] [place] [address] Jacque Fam LCSW Cancer (Transportation Issues) Social History Tobacco Use Types Packs/Day Years [...] on file Legal Sex Female 1:37 AM FISH ROE PROCESSOR Gender Identity Not on file Sexual Orientation Not on file documented as of this encounter Progress Notes * Jacque Fam LCSW - 10/05/2024 1:18 PM CST Met with the patient and her spouse during her visit to [facility] today. Saleem needed to vent and get some information and questions answered. Bianka Lea RN and I both discuss her condition and treatment options. Encouraged Slaeem to attend her appointments with her so he can get answers to his questions. Informed him and patient about the room being reserved for their use during her treatments. It is reserved from 10/14 through 11/22. MTM ride don't run on the weekends so they will be looking for a way to get here either Sat or Sun prior to start. Yamileth tells me that she is going to stay here for the duration. She believes she can get here this first week of treatment. Updated her PHI form to include the neighbor who takes messages for them due to poor cell clerical receptionist, Gary Ritter. Saleem tells me that he is getting a new phone with better clerical receptionist. Nothing further provided at this time. SW remains available to assist throughout her treatments. LORENA Moctezuma, HAM Three Dimensional Art Instructor/Patient Navigator for: Lung, H & N, Esophageal, Kidney, Colorectal, Bladder, Prostate patients [facility] ROE PROCESSOR documented in this encounter Plan of Treatment Upcoming Encounters Date Type Department Care Team (Late st Contact Info) Description 10/16/2024 11:00 AM FISH ROE PROCESSOR Appointment [facility] [address] [facility] [address] [place] [address] Rashmi Dumont MD [address] [facility] [address] [place] [address] [facility] Oncology, [employer] [facility] [employer] [facility] 8 10/16/2024 1:45 PM FISH ROE PROCESSOR Appointment [facility] [address] [facility] [address] [place] [address] Karla Goldberg MD [address] [place] [address] 10/17/2024 1:45 PM FISH ROE PROCESSOR Appointment [facility] [address] [facility] [address] [place] [address] Karla Goldberg MD [address] [place] [phone] 10/18/2024 1:45 PM FISH ROE PROCESSOR Appointment [address] [address] Karla Goldberg MD [address] [place] [phone] 10/19/2024 1:45 PM FISH ROE PROCESSOR Appointment [address] [phone] Karla Goldberg MD [address] [place] [phone] 10/20/2024 1:45 PM FISH ROE PROCESSOR Appointment [address] [phone] Karla Goldberg MD [address] [place] [phone] 10/23/2024 1:45 PM FISH ROE PROCESSOR Appointment [address] [phone] Karla Goldberg MD [address] [place] [phone] 10/24/2024 11:30 AM FISH ROE PROCESSOR Office Visit [facility] Ear Nose and Throat Head Neck SGF [address] [place] [phone] Chris Flores MD [address] [place] [phone] 10/24/2024 1:45 PM FISH ROE PROCESSOR Appointment [address] [phone] Karla Goldberg MD [address] [place] [phone] 10/25/2024 1:45 PM FISH ROE PROCESSOR Appointment [address] [phone] Karla Goldberg MD [address] [place] [phone] 10/26/2024 1:45 PM FISH ROE PROCESSOR Appointment [address] [phone] Karla Goldberg MD [address] [place] [phone] 10/27/2024 1:45 PM FISH ROE PROCESSOR Appointment [address] [phone] Karla Goldberg MD [address] [place] [phone] 10/30/2024 1:45 PM CDT Appointment [address] [phone] Karla Goldberg MD [address] [place] [phone] 10/31/2024 1:45 PM CDT Appointment [address] [phone] Karla Goldberg MD [address] [place] [phone] 11/01/2024 1:45 PM CDT Appointment [address] [phone] Karla Goldberg MD [address] [place] [phone] 11/02/2024 1:45 PM CDT Appointment [address] [phone] Karla Goldberg MD [address] [place] [phone] 11/03/2024 1:45 PM CDT Appointment [address] [phone] Karla Goldberg MD [address] [place] [phone] 11/06/2024 1:45 PM CDT Appointment [address] [phone] Karla Goldberg MD [address] [place] [phone] 11/07/2024 1:45 PM CDT Appointment [address] [phone] Karla Goldberg MD [address] [place] [phone] 11/08/2024 1:45 PM CDT Appointment [address] [phone] Karla Goldberg MD [address] [place] [phone] 11/09/2024 1:45 PM CDT Appointment [address] [phone] Karla Goldberg MD [address] [place] [phone] 11/10/2024 1:45 PM CDT Appointment [address] [phone] Karla Goldberg MD [address] [place] [phone] 11/13/2024 1:45 PM CDT Appointment [address] [phone] Karla Goldberg MD [address] [place] [phone] 11/14/2024 1:45 PM CDT Appointment [address] [phone] Karla Goldberg MD [address] [place] [phone] 11/15/2024 12:45 PM CDT Appointment [address] [place] [address] Karla Goldberg MD [address] [place] [phone] 11/16/2024 12:45 PM CDT Appointment [address] [phone] Karla Goldberg MD [address] [place] [phone] 11/17/2024 1:45 PM CDT Appointment [address] [phone] Karla Goldberg MD [address] [place] [phone] 11/20/2024 1:45 PM CDT Appointment [address] [phone] Karla Goldberg MD [address] [place] [phone] 11/21/2024 1:45 PM CDT Appointment [address] [phone] Karla Goldberg MD [address] [place] [phone] 11/22/2024 1:45 PM CDT Appointment [address] [phone] Karla Goldberg MD [address] [place] [phone] 11/23/2024 1:45 PM CDT Appointment [address] [phone] Karla Goldberg MD [address] [place] [phone] 11/24/2024 1:45 PM CDT Appointment [address] [phone] Karla Goldberg MD [address] [place] [phone] 11/27/2024 1:45 PM CDT Appointment [address] [phone] Karla Goldberg MD [address] [place] [phone] 11/28/2024 1:45 PM CDT Appointment [address] [phone] Karla Goldberg MD [address] [place] [phone] documented as of this encounter Visit Diagnoses Not on filedocumented in this encounter Additional Health Concerns Infection Onset Date Last Indicated Resolved Time Respiratory Syncytial Virus (RSV) 09/14/2024 025 10/12/2024 1:16 AM FISH ROE PROCESSOR Assessment Noted Time PHQ-9 Depression Total Score: 1 04/20/20 11:16 PM CDT documented as of this encounter
--- OUTSIDE RECORDS SUMMARY | 2024-10-14 10:34 | XMS_ITS | Clinical Summary ---
Author Organization Sarika Chauhan [facility] Address [address] [facility] [address] [place] [address] Phone Care Team Providers Care Mechanical Technician Name Role Phone Unavailable Primary Care Provider Unavailabl e Allergies Active Allergy Reactions Criticality Noted Date Comments Hydromorphone Dizziness,Headache Low 04/20/2024 Medications atorvastatin (LIPITOR) 80 mg tablet 80 mg by G Tube route daily at bedtime. Active bisacodyL (DULCOLAX) 10 mg Suppository Insert 10 mg by rectum 1 time daily as needed. Active budesonide (PULMICORT RESPULE) 0.5 mg/2 mL Suspension for Nebulization Take 0.5 mg by inhalation 2 times daily. Active aspirin (RISA CHEWABLE) 81 mg Tablet, Chewable 81 mg by G Tube route daily. Active nitroglycerin (NITROSTAT) 0.4 mg Tablet, Sublingual Place 0.4 mg under tongue every 5 minutes as needed. Active traMADoL (ULTRAM) 50 mg tabletIndicatio ns:Laryngeal squamous cell carcinoma (CMS/HCC) Take 1 Tablet (50 mg) by mouth every 8 hours as needed for Pain. 21 Tablet Active naloxone (NARCAN) 4 mg/spray [place], Non-Aerosol EMERGENCY USE ONLY: Administer 1 spray (4 mg) in one nostril one time. May repeat in alternating nostrils every 2-3 min until responsive or EMS arrives. 2 Each 3 09/28/19 25 5:11 PM EDUCATION ADVISER Active trach supplies Surgery Date: 09/17/2025 Length of Need: 99 months Charlie resendez, Size 6 FR Cuffed: no, Fenestrated: no,1 per 3 mo, Inner cannula yes 1 per day, trach care kits 1 per day 1 Each 025 Active clopidogreL (PLAVIX) 75 mg Tablet 1 Tablet (75 mg) by G Tube route daily. 30 Tablet 025 Active ondansetron (ZOFRAN ODT) 8 mg Tablet, Rapid Dissolve Dissolve 1 tablet on top of tongue then swallow with saliva every 8 hours as needed for nausea or vomiting. Can start Day 3 of chemo. 30 Tablet 1 025 Active PARoxetine HCl (PAXIL) 20 mg tablet 1 Tablet (20 mg) by G Tube route daily. 30 Tablet 025 Active OLANZapine (ZyPREXA) 5 mg tablet Take 1 tab po evening PRN CINV. Can start Day 1 of chemo. 30 Tablet 1 025 Active dexAMETHasone (DECADRON) 4 mg tablet 1 tablet PO BID with meals Day 2, 3 of chemo. Repeat each chemo. 28 Tablet 025 Active ALPRAZolam (Xanax) 0.5 mg tabletIndicatio ns:Laryngeal squamous cell carcinoma (CMS/HCC) Take 1 Tablet (0.5 mg) by mouth 1 time daily as needed for Anxiety (for prior to RT for clausterphobia). 20 Tablet 025 Active HYDROcodone-eliezer taminophen (NORCO) 7.5-325 mg TabletIndicatio ns:Laryngeal squamous cell carcinoma (CMS/HCC) 1 tab via gtube as directed every 6 hours prn pain 60 Tablet 025 Active lisinopriL (PRINIVIL) 20 mg tabletIndicatio ns:Hypertensive emergency TAKE ONE TABLET (20 MG) BY MOUTH DAILY. 30 Tablet 024 2024 Discontinued cloNIDine HCL (CATAPRES) 0.1 mg tablet Take 0.1 mg by mouth daily. 2024 Discontinued clopidogreL (PLAVIX) 75 mg Tablet 75 mg by G Tube route daily. 2024 Discontinued(R eorder) metoprolol tartrate (LOPRESSOR) 25 mg tablet 25 mg by G Tube route 2 times daily. 2024 Discontinued PARoxetine HCl (PAXIL) 20 mg tablet 20 mg by G Tube route daily. 2024 Discontinued(R eorder) hydrALAZINE (APRESOLINE) 50 mg tablet Take 50 mg by mouth 4 times daily. 2024 Discontinued ALPRAZolam (Xanax) 0.25 mg tabletIndicatio ns:Laryngeal squamous cell carcinoma (CMS/HCC) Take 1 Tablet (0.25 mg) by mouth see administration instructions. Take 1 hour prior to scan. May repeat once as needed. 2 Tablet 2024 Discontinued ondansetron (ZOFRAN ODT) 8 mg Tablet, Rapid Dissolve Dissolve 1 tablet on top of tongue then swallow with saliva every 8 hours as needed for nausea or vomiting 30 Tablet 2024 Discontinued(R eorder) midodrine (PROAMATINE) 5 mg tablet Take 1 Tablet (5 mg) by mouth 2 times daily for 14 days. 28 Tablet 09/28/19 25 5:11 PM EDUCATION ADVISER 025 2024 HYDROcodone-eliezer taminophen (NORCO) 5-325 mg tabletIndicatio ns:Laryngeal squamous cell carcinoma (CMS/HCC) Take 1 Tablet by mouth every 6 hours as needed for Pain, Moderate. Max Daily Amount: 4 Tablets 20 Tablet 025 2024 Discontinued HYDROcodone-eliezer taminophen (NORCO) 5-325 mg tabletIndicatio ns:Laryngeal squamous cell carcinoma (CMS/HCC) Take 1 Tablet by mouth every 6 hours as needed for Pain, Moderate. Max Daily Amount: 4 Tablets 20 Tablet 025 2024 Discontinued(A lternate therapy prescribed) Active Problems Problem Noted Date Diagnosed Date Hypotension 09/27/2024 Multifocal pneumonia 09/16/2024 Acute respiratory failure with hypoxia Pneumonia due to respiratory syncytial virus (RS V) 09/15/2024 Hx of laryngeal cancer 09/13/2024 Acute renal failure superimposed on chronic kidn ey disease 09/13/2024 Laryngeal squamous cell carcinoma 07/13/2024 Cancer Staging:Clinical:Stage SADIE(cT3, cN2, cM0) - Unsigned Bipolar disorder, unspecified 04/21/2024 Methamphetamine abuse 04/21/2024 Essential hypertension 04/21/2024 CAD (coronary atherosclerotic disease) Acute on chronic diastolic heart failure 024 Stridor 04/21/2024 COPD (chronic obstructive pulmonary disease) CKD (chronic kidney disease) 04/21/2024 Acute respiratory distress 04/21/2024 Vocal cord paralysis 04/21/2024 Vocal cord polyp 04/21/2024 Community acquired pneumonia of right lower lobe of lung 04/21/2024 Hypertensive emergency 01/09/2024 RADHA (acute kidney injury) 01/09/2024 Elevated brain natriuretic peptide (BNP) level 0 01/09/2024 Resolved Problems Problem Noted Date Diagnosed Date Resolved Date Hypovolemic shock 09/14/2024 09/16/2024 Severe sepsis with septic shock 09/13/2024 09/16/2024 Encounters Date Type Department Care Team Description 10/14/2024 External Device Data STL ABSTRACTION Provider, Abstract 10/13/2024 3:00 PM EDUCATION ADVISER Office Visit [facility] Cancer and Hematology [place] [address] [facility] 2 [place] [phone] Rashmi Dumont MD Laryngeal squamous cell carcinoma (CMS/HCC) (Primary Dx) 10/13/2024 1:30 PM EDUCATION ADVISER - 10/13/2024 11:59 PM EDUCATION ADVISER Hospital Encounter [facility] Radiation Oncology [facility] [address] [facility] [address] [place] [phone] Karla Goldberg MD Arrived Discharge Disposition: Home or Self Care 10/13/2024 Chart Note [facility] Cancer Resource Center Cancer Center [address] [place] [address] [address] [place] [phone] Jacque Fam, PIPE COREMAKER Cancer (Transportation Issues) 10/13/2024 Orders Only [facility] Cancer and Hematology [place] [address] [place] [phone] Rashmi Dumont MD Laryngeal squamous cell carcinoma (CMS/HCC) 10/13/2024 Chart Note [facility] Cancer Center [address] [place] [address] [address] [place] [phone] Dian Lea, DANICA 10/13/2024 External Device Data STL ABSTRACTION Provider, Abstract 10/12/2024 Telephone [facility] Cancer [place] [address] [place] [address] [address] [place] [phone] Dian Lea, RN Nurse Navigation 10/12/[address] [facility] and Hematology [address] [place] [phone] Rashmi Dumont MD Laryngeal squamous cell carcinoma (CMS/HCC) (Primary Dx) 10/12/2024 External Device Data STL ABSTRACTION Provider, Abstract 10/11/2024 External Device Data STL ABSTRACTION Provider, Abstract 10/11/2024 Refill [facility] Hematology [address] [place] [phone] Rashmi Dumont MD 10/11/2024 Telephone [facility] Hematology [address] [facility] 2 [place] [phone] Karla Saldana RN pain rx 10/10/2024 External Device Data STL ABSTRACTION Provider, Abstract 10/09/2024 1:47 PM EDUCATION ADVISER - 10/09/2024 11:59 PM EDUCATION ADVISER Hospital Encounter [facility] Radiation Oncology [facility] [address] [place] [phone] Karla Goldberg MD Discharge Disposition: Home or Self Care 10/09/2024 External Device Data STL ABSTRACTION Provider, Abstract 10/08/2024 External Device Data STL ABSTRACTION Provider, Abstract 10/07/2024 External Device Data STL ABSTRACTION Provider, Abstract 10/06/2024 Abstract [facility] Cancer and Hematology [place] [address] [place] [address] Provider, Abstract 10/05/2024 1:45 PM EDUCATION ADVISER - 10/05/2024 11:59 PM EDUCATION ADVISER Hospital Encounter [facility] Radiation Oncology Cancer [place] [address] [place] [address] Karla Goldberg MD Discharge Disposition: Home or Self Care 10/05/2024 9:00 AM EDUCATION ADVISER - 10/05/2024 11:59 PM EDUCATION ADVISER Hospital Encounter [facility] Oncology Infusion Cancer [place] [address] [place] [address] Rashmi Dumont MD [facility] Oncology, Infusion 10 Discharge Disposition: Home or Self Care 10/05/2024 8:30 AM EDUCATION ADVISER Office Visit [facility] Cancer and Hematology [place] [address] [place] [address] 2 [place] [phone] Rashmi Dumont MD Joy, Jennifer L, VELASQUEZ Laryngeal squamous cell carcinoma (CMS/HCC) (Primary Dx); Tracheostomy in place (CMS/HCC); PEG (percutaneous endoscopic gastrostomy) status (CMS/HCC); Cancer related pain; Anxiety; Stage 3a chronic kidney disease (CMS/HCC); Hypokalemia 10/05/2024 Refill [facility] Cancer and Hematology [place] [address] [place] [address] 2 [place] [address] Rashmi Dumont MD Laryngeal squamous cell carcinoma (CMS/HCC) 10/05/2024 Chart Note [facility] Cancer [address] [place] [address] [place] [address] Jacque Fam LCSW Cancer (Transportation Issues) 10/05/2024 Chart Note [address] [place] [address] [place] [address] Dian Lea RN 10/05/2024 Orders Only [facility] Cancer [facility] Hematology [place] [address] [place] [address] 2 [place] [phone] Guerda Castillo, VELASQUEZ Laryngeal squamous cell carcinoma (CMS/HCC) 10/03/2024 Telephone [facility] [address] [place] [address] [place] [phone] Dian Lea, DANICA Nurse Navigation 10/02/2024 8:00 AM EDUCATION ADVISER - 10/02/2024 11:59 PM EDUCATION ADVISER Hospital Encounter [facility] [address] [place] [phone] Karla Goldberg MD Discharge Disposition: Home or Self Care 10/02/2024 Telephone [facility] [address] [place] [address] [place] [phone] Jacque Fam [facility] (Social Work Navigation) 10/02/2024 Telephone [facility] [address] [place] [address] [place] [phone] Dian Lea, DANICA Nurse Navigation 09/29/2024 8:00 AM EDUCATION ADVISER - 09/29/2024 11:59 PM EDUCATION ADVISER Hospital Encounter [facility] [address] [place] [phone] Discharge Disposition: Home or Self Care 09/27/2024 [facility]ly [facility] Cancer and Hematology [place] [address] [place] [phone] Karla Saldana, DANICA TREATMENT UPDATE 09/26/2024 11:12 AM EDUCATION ADVISER - 09/26/2024 11:59 PM EDUCATION ADVISER Hospital Encounter [facility] [address] [place] [phone] Karla Goldberg MD Discharge Disposition: Home or Self Care 09/20/2024 10:00 AM EDUCATION ADVISER - 09/20/2024 11:59 PM EDUCATION ADVISER Hospital Encounter [facility] [address] [place] [phone] Discharge Disposition: Home or Self Care 09/20/2024 External Device Data STL ABSTRACTION Provider, Abstract 09/19/2024 External Device Data STL ABSTRACTION Provider, Abstract 09/19/2024 External Device Data STL ABSTRACTION Provider, Abstract 09/18/2024 8:16 AM EDUCATION ADVISER - 09/18/2024 11:59 PM EDUCATION ADVISER Hospital Encounter [facility] Echo [address] [place] [phone] Wilfredo Harmon MD Discharge Disposition: Home or Self Care 09/17/2024 11:47 AM EDUCATION ADVISER Anesthesia Event [facility] Operating Room [address] [place] [phone] Kendall Jones MD Belk, Robert J, MD 09/17/2024 11:20 AM EDUCATION ADVISER - 09/17/2024 12:48 PM EDUCATION ADVISER Surgery [facility] Operating Room [address] [place] [phone] Reinaldo Dsouza MD TEETH MULTIPLE EXTRACTION 09/14/2024 External Device Data STL ABSTRACTION Provider, Abstract 09/13/2024 4:22 PM EDUCATION ADVISER - 09/28/2024 5:21 PM EDUCATION ADVISER Hospital Encounter [facility] 3B Surgical [address] [place] [phone] Humberto Phillip MD Lohia, Mehul M, MD Syed, Ammar, MD Bhartee, Harsh, MD Sigdel, Supriya, MD Syed, Hejab, MD Laryngeal squamous cell carcinoma (CMS/HCC) Discharge Disposition: Home or Self Care 09/13/2024 2:40 PM EDUCATION ADVISER Video Visit [facility] Cancer and Hematology[address] [phone] Rashmi Dumont MD Laryngeal squamous cell carcinoma (CMS/HCC) (Primary Dx) 09/13/2024 9:40 AM EDUCATION ADVISER - 09/13/2024 11:59 PM EDUCATION ADVISER Hospital Encounter [facility] Emergency Medical Services [place] [address] [place] [phone] Ambulance, [facility] Discharge Disposition: [facility] 09/13/2024 Travel 09/13/2024 Chart Note [facility] Cancer Center [address] [place] [phone] Dian Lea, RN 09/13/2024 Orders Only [facility] Cancer and Hematology [place] [address] [place] [phone] Rashmi Dumont MD Laryngeal squamous cell carcinoma (CMS/HCC) 09/13/2024 Orders Only [facility] Cancer and Hematology [place] [address] [place] [phone] Rashmi Dumont MD Laryngeal squamous cell carcinoma (CMS/HCC) (Primary Dx) 09/12/2024 Chart Note [facility] 7A Oncology [address] [place] [address] Parris Manuel, [facility] 09/12/2024 Telephone [facility] Cancer [place] [address] [place] [phone] Dian Lea, RN Nurse Navigation 09/08/2024 Telephone [facility] Hematology [address] [phone] Karla Saldana, RN follow up 09/07/2024 Chart Note [facility] 7A Oncology [address] [place] [phone] Parris Manuel, [facility] 09/07/[address] [facility] [address] [place] [phone] Anu Thompson, Provider Call 09/06/2024 Telephone [facility] Cancer Center [address] [place] [phone] Dian Lea, RN Nurse Navigation 09/05/2024 [facility] Cancer Center [address] [place] [phone] Dian Lea, RN Nurse Navigation 08/31/2024 [facility] Cancer Center [address] [place] [phone] Dian Lea, RN Nurse Navigation 08/29/2024 Chart Note [address] Oncology [address] [place] [phone] Parris Manuel, RD 08/29/[address] [phone] Dian Lea, RN Nurse Navigation 08/22/2024 Chart Note [address] Oncology [address] [place] [phone] Parris Manuel, RD 08/21/2024 Chart Note [address] Oncology [address] [place] [phone] Parris Manuel, RDH 08/18/2024 Chart Note [address] Oncology [address] [place] [phone] Parris Manuel, RDH 08/14/2024 [facility] Cancer [address] [phone] Dian Lea, RN Nurse Navigation 08/11/2024 Chart Note [address] Oncology [address] [place] [phone] Parris Manuel, RDH 08/08/2024 [facility] Cancer [address] [phone] Dian Lea, RN Nurse Navigation 08/07/2024 Chart Note [facility] 7A Oncology [address] [place] [address] Parris Manuel, [facility] 08/04/2024 Telephone [facility] Interventional Radiology [address] [place] [address] [place] [phone] Анна Beaulieu, it technical architect (Instructed patient's roommate Sweta for scheduled procedure with sedation on 08/07/24. Check in at the [facility] entrance at 830. Instructed they need to have a lumber stacker driver and someone to stay with them for the next 24 hours. Plan on being with us for 3-4 hours. Pt denies taking blood thinners, and reports she wasn't given one when I asked about Plavix./Nothing to eat or drink after midnight. Informed it's ok take your morning medications with a small sip of water. /) 08/04/2024 Telephone [facility] Interventional Radiology [address] [place] [address] [place] [address] Анна Beaulieu RN Procedure (Instructed patient's roommate for scheduled procedure with sedation on 08/07/24. Check in at the [facility] entrance at 830. Instructed they need to have a lumber stacker driver and someone to stay with them for the next 24 hours. Plan on being with us for 3-4 hours. Pt taking Plavix, and she will find out if it's being held and call us back. Nothing to eat or drink after midnight. Informed it's ok take your morning medications with a small sip of water. /) 08/01/2024 Chart Note [facility] 7A Oncology [address] [place] [address] Parris Manuel, [facility] 08/01/2024 Telephone [facility] Cancer and Hematology [place] [phone] [facility] [address] [place] [address] Karla Saldana, DANICA DEX 07/31/2024 1:25 PM EDUCATION ADVISER - 07/31/2024 11:59 PM EDUCATION ADVISER Hospital Encounter [facility] General Laboratory Services [address] [place] [address] [place] [phone] Karla Goldberg MD Discharge Disposition: Home or Self Care 07/27/2024 2:00 PM EDUCATION ADVISER Clinical Support [facility] Cancer and Hematology [place] [facility] [address] [phone] Rashmi Dumont MD Rodriguez, Laura M, SUPPLY CHAIN MANAGER Laryngeal squamous cell carcinoma (CMS/HCC) (Primary Dx); Elevated serum creatinine; Encounter for education 07/26/2024 Chart Note [address] Oncology [address] [place] [phone] Parris Manuel, [facility] 07/25/2024 Telephone [facility] Outpatient Services [place] [address] [place] [address] Gely Astudillo FNP Requesting Sooner Appointment 07/25/2024 Chart Note [address] Oncology [address] [place] [address] Parris Manuel, [facility] 07/25/2024 Telephone [facility] Cancer [facility] Hematology [address] [phone] Karla Saldana RN port appt 07/24/2024 Chart Note [address] Oncology [address] [place] [address] Parris Manuel, RD 07/24/2024 Refill [facility] Cancer [facility] Hematology [address] [phone] Awilda Sinha RN Laryngeal squamous cell carcinoma (CMS/HCC) (Primary Dx) 07/24/2024 Telephone [facility] Cancer [facility] Hematology [address] [phone] Call, DANICA Kaiser appt 07/24/2024 Telephone [facility] Hematology [address] [phone] Call, Awilda RN reschedule missed appt 07/18/2024 11:00 AM EDUCATION ADVISER Procedure visit [facility] [address] [place] [phone] Rashmi Dumont MD Rodriguez, Laura M, SUPPLY CHAIN MANAGER Laryngeal squamous cell carcinoma (CMS/HCC) (Primary Dx) 07/18/2024 External Device Data STL ABSTRACTION Provider, Abstract 07/18/2024 Chart Note [facility] 7A Oncology [address] [place] [address] Parris Manuel, RD 07/18/2024 Orders Only [facility] Cancer and Hematology [address] [phone] Gely Astudillo, SUPPLY CHAIN MANAGER Elevated serum creatinine (Primary Dx) 07/18/2024 Chart Note [facility] Cancer Center [address] [facility] [address] [place] [address] Dian Lea RN 07/18/2024 Orders Only [facility] Cancer and Hematology [address] [address] Alyson Cobb Laryngeal squamous cell carcinoma (CMS/HCC) 07/17/2024 Chart Note [facility] 7A Oncology [address] [place] [address] Parris Manuel, RD 07/17/2024 Orders Only [facility] Cancer and Hematology [address] [address] Felipa [place], PLACEMENT SPECIALIST Laryngeal squamous cell carcinoma (CMS/HCC) (Primary Dx) 07/14/2024 Telephone [facility] Center [address] [facility] [address] [place] [phone] Dian Lea, RN Nurse Navigation 07/14/2024 Cancer Conference [facility] [address] [facility] [address] [place] [phone] Dian Lea, RN Laryngeal squamous cell carcinoma (CMS/HCC) (Primary Dx) from Last 3 Months Social History Tobacco Use Types Packs/Day Years Used Date Smoking Tobacco: Every Day Cigarettes Smokeless Tobacco: Never Tobacco Cessation:Ready to Q uit: Not Asked; Counseling Given: Not Answered Alcohol Use Standard Drinks/Week Comments No 0 [...] on file Legal Sex Female 1:37 AM EDUCATION ADVISER Gender Identity Not on file Sexual Orientation Not on file Last Filed Vital Signs Vital Sign Reading Time Taken Comments Blood Pressure 122/74 10/13/2024 3:02 PM EDUCATION ADVISER Pulse 82 10/13/2024 3:02 PM EDUCATION ADVISER Temperature 35.9 ??C (96.7 ??F) 10/13/2024 3:02 PM CS T Respiratory Rate 18 09/28/2024 3:41 PM EDUCATION ADVISER Oxygen Saturation 93% 10/13/2024 3:02 PM EDUCATION ADVISER Inhaled Oxygen Concentration - - Weight 80.2 kg (176 lb 12.8 oz) 10/13/2024 3:02 PM EDUCATION ADVISER Height 165.1 cm (5' 5 ) 10/13/2024 3:02 PM EDUCATION ADVISER Body Mass Index 29.42 10/13/2024 3:02 PM EDUCATION ADVISER Plan of Treatment Upcoming Encounters Date Type Department Care Team (Late st Contact Info) Description 10/16/2024 11:00 AM EDUCATION ADVISER Appointment [facility] Oncology [facility] [address] [facility] [address] [place] [phone] Rashmi Dumont MD [address] [phone] Spr Oncology, Infusion 8 10/16/2024 1:45 PM EDUCATION ADVISER Appointment [address] [phone] Karla Goldberg MD [address] [place] [phone] 10/17/2024 1:45 PM EDUCATION ADVISER Appointment [address] [phone] Karla Goldberg MD [address] [place] [phone] 10/18/2024 1:45 PM EDUCATION ADVISER Appointment [address] [phone] Karla Goldberg MD [address] [place] [phone] 10/19/2024 1:45 PM EDUCATION ADVISER Appointment [address] [phone] Karla Goldberg MD [address] [place] [phone] 10/20/2024 1:45 PM EDUCATION ADVISER Appointment [address] [phone] Karla Goldberg MD [address] [place] [phone] 10/23/2024 1:45 PM EDUCATION ADVISER Appointment [address] [phone] Karla Goldberg MD [address] [place] [phone] 10/24/2024 11:30 AM EDUCATION ADVISER Office Visit [facility] [address] [place] [phone] Chris Flores MD [address] [place] [address] 10/24/2024 1:45 PM EDUCATION ADVISER Appointment [address] [phone] Karla Goldberg MD [address] [place] [phone] 10/25/2024 1:45 PM EDUCATION ADVISER Appointment [address] [phone] Karla Goldberg MD [address] [place] [phone] 10/26/2024 1:45 PM EDUCATION ADVISER Appointment [address] [phone] Karla Goldberg MD [address] [place] [phone] 10/27/2024 1:45 PM EDUCATION ADVISER Appointment [address] [phone] Karla Goldberg MD [address] [place] [phone] 10/30/2024 1:45 PM CDT Appointment [address] [phone] Karla Goldberg MD [address] [place] [phone] 10/31/2024 1:45 PM CDT Appointment [address] [phone] Karla Goldberg MD [address] [place] [phone] 11/01/2024 1:45 PM CDT Appointment [address] [phone] Karla Goldberg MD [address] [place] [phone] 11/02/2024 1:45 PM CDT Appointment [address] [phone] Karla Goldberg MD [address] [place] [phone] 11/03/2024 1:45 PM CDT Appointment [address] [phone] Karla Goldberg MD [address] [place] [phone] 11/06/2024 1:45 PM CDT Appointment [address] [phone] Karla Goldberg MD [address] [place] [phone] 11/07/2024 1:45 PM CDT Appointment [address] [phone] Karla Goldberg MD [address] [place] [phone] 11/08/2024 1:45 PM CDT Appointment [address] [phone] Karla Goldberg MD [address] [place] [phone] 11/09/2024 1:45 PM CDT Appointment [address] [phone] Karla Goldberg MD [address] [place] [phone] 11/10/2024 1:45 PM CDT Appointment [address] [phone] Karla Goldberg MD [address] [place] [phone] 11/13/2024 1:45 PM CDT Appointment [address] [phone] Karla Goldberg MD [address] [place] [phone] 11/14/2024 1:45 PM CDT Appointment [address] [phone] Karla Goldberg MD [address] [place] [phone] 11/15/2024 12:45 PM CDT Appointment [address] [phone] Karla Goldberg MD [address] [place] [phone] 11/16/2024 12:45 PM CDT Appointment [address] [phone] Karla Goldberg MD [address] [place] [phone] 11/17/2024 1:45 PM CDT Appointment [address] [phone] Karla Goldberg MD [address] [place] [phone] 11/20/2024 1:45 PM CDT Appointment [address] [phone] Karla Goldberg MD [address] [place] [phone] 11/21/2024 1:45 PM CDT Appointment [address] [phone] Karla Goldberg MD [address] [place] [phone] 11/22/2024 1:45 PM CDT Appointment [address] [phone] Karla Goldberg MD [address] [place] [phone] 11/23/2024 1:45 PM CDT Appointment [address] [phone] Karla Goldberg MD [address] [place] [phone] 11/24/2024 1:45 PM CDT Appointment [address] [phone] Karla Goldberg MD [address] [place] [phone] 11/27/2024 1:45 PM CDT Appointment [address] [phone] Karla Goldberg MD [address] [place] [phone] 11/28/2024 1:45 PM CDT Appointment [address] [phone] Karla Goldberg MD [address] [place] [phone] Health Maintenance Due Date Last Done Comments DTAP/TDAP/TD VACCINES (1 - Tdap) 1992 HEPATITIS B VACCINES (1 of 3 - 19+ 3-dose series) 04/23 Preventative Visit-Managed Medicaid 1992 ZOSTER VACCINE (1 of 2) 1992 CERVICAL CANCER SCREENING 2003 BREAST CANCER SCREENING 2013 COLORECTAL SCREENING 2018 Colorectal Cancer Screening 2018 FIT-DNA Q 3 years 2018 FIT/FOBT Q 1 year 2018 Flex Sig/CT Colonography Q 5 years 2018 INFLUENZA VACCINE (#1) 2024 07/21/2023 Pre-Diabetes and Diabetes Screening 01/08/202701/08 Procedures Procedure Name Priority Date/Time Associated Diagnosis Comments MAGNESIUM LEVEL Stat 10/13/2024 3:12 PM EDUCATION ADVISER Laryngeal squamous cell carcinoma (CMS/HCC) COMPREHENSIVE METABOLIC PANEL Stat 10/13/2024 3:12 PM EDUCATION ADVISER Laryngeal squamous cell carcinoma (CMS/HCC) CBC WITH DIFFERENTIAL Stat 10/13/2024 3:12 PM EDUCATION ADVISER Laryngeal squamous cell carcinoma (CMS/HCC) MAGNESIUM LEVEL Stat 10/05/2024 7:45 AM EDUCATION ADVISER Laryngeal squamous cell carcinoma (CMS/HCC) COMPREHENSIVE METABOLIC PANEL Stat 10/05/2024 7:45 AM EDUCATION ADVISER Laryngeal squamous cell carcinoma (CMS/HCC) CBC WITH DIFFERENTIAL Stat 10/05/2024 7:45 AM EDUCATION ADVISER Laryngeal squamous cell carcinoma (CMS/HCC) TELEMETRY REPORT 09/29/2024 2:56 AM EDUCATION ADVISER BASIC METABOLIC PANEL Routine 09/28/2024 4:17 AM EDUCATION ADVISER CBC WITH DIFFERENTIAL Routine 09/28/2024 4:17 AM EDUCATION ADVISER BASIC METABOLIC PANEL Routine 09/27/2024 9:24 AM EDUCATION ADVISER CBC WITH DIFFERENTIAL Routine 09/27/2024 5:[address] GUIDED RAD THERAPY FIELD Routine 09/26/2024 3:22 PM EDUCATION ADVISER BASIC METABOLIC PANEL Routine 09/26/2024 4:02 AM EDUCATION ADVISER CBC WITH DIFFERENTIAL Routine 09/26/2024 4:02 AM EDUCATION ADVISER EKG 12-LEAD Stat 09/25/2024 10:14 AM EDUCATION ADVISER PHOSPHORUS Routine 09/25/2024 2:32 AM EDUCATION ADVISER MAGNESIUM LEVEL Routine 09/25/2024 2:32 AM EDUCATION ADVISER BASIC METABOLIC PANEL Routine 09/25/2024 2:32 AM EDUCATION ADVISER TSH Routine 09/25/2024 2:32 AM EDUCATION ADVISER CBC WITH DIFFERENTIAL Routine 09/25/2024 2:31 AM EDUCATION ADVISER EKG 12-LEAD Routine 09/24/2024 8:35 AM EDUCATION ADVISER BASIC METABOLIC PANEL Routine 09/23/2024 5:53 AM EDUCATION ADVISER BASIC METABOLIC PANEL Routine 09/22/2024 4:33 AM EDUCATION ADVISER BASIC METABOLIC PANEL Routine 09/21/2024 4:59 AM EDUCATION ADVISER BASIC METABOLIC PANEL Routine 09/20/2024 12:54 AM EDUCATION ADVISER CBC WITH DIFFERENTIAL Routine 09/20/2024 12:54 AM EDUCATION ADVISER BASIC METABOLIC PANEL Routine 09/19/2024 3:55 AM EDUCATION ADVISER CBC WITH DIFFERENTIAL Routine 09/19/2024 3:55 AM EDUCATION ADVISER ECHO COMPLETE Routine 09/18/2024 11:15 AM EDUCATION ADVISER PT EVAL AND TREAT Pending Discharge 09/18/2024 8:00 AM EDUCATION ADVISER OT EVAL AND TREAT Pending Discharge 09/18/2024 8:00 AM EDUCATION ADVISER CBC WITHOUT DIFFERENTIAL Routine 09/18/2024 3:22 AM EDUCATION ADVISER HOME O2 EVAL (DESATURATION SCREEN) Pending Discharge 09/18/2024 12:16 AM EDUCATION ADVISER POC GLUCOSE Routine 09/17/2024 1:49 PM EDUCATION ADVISER TEETH MULTIPLE EXTRACTION 09/17/2024 11:20 AM EDUCATION ADVISER N/A RENAL FUNCTION PANEL Routine 09/17/2024 4:00 AM EDUCATION ADVISER CBC WITHOUT DIFFERENTIAL Routine 09/17/2024 4:00 AM EDUCATION ADVISER RT ASSESS AND TREAT Routine 09/16/2024 4 :21 PM EDUCATION ADVISER EKG 12-LEAD Routine 09/16/2024 7:32 AM EDUCATION ADVISER CBC WITHOUT DIFFERENTIAL Routine 09/16/2024 5:28 AM EDUCATION ADVISER HEPATIC FUNCTION PANEL Routine 09/16/2024 4:25 AM EDUCATION ADVISER BASIC METABOLIC PANEL Routine 09/16/2024 4:25 AM EDUCATION ADVISER DRUG SCREEN, URINE Routine 09/15/2024 10 :41 PM EDUCATION ADVISER XR VIDEO SWALLOW W SPEECH Routine 09/15/2024 2:43 PM EDUCATION ADVISER PHOSPHORUS Routine 09/15/2024 3:48 AM EDUCATION ADVISER MAGNESIUM LEVEL Routine 09/15/2024 3:48 AM EDUCATION ADVISER CBC WITHOUT DIFFERENTIAL Routine 09/15/2024 3:48 AM EDUCATION ADVISER BASIC METABOLIC PANEL Routine 09/15/2024 3:[address] SOFT TISSUE NECK W CONTRAST Routine 09/14/2024 5:[address] CHEST ABDOMEN PELVIS W CONT Routine 09/14/2024 5:03 PM EDUCATION ADVISER PROGRAMMER ANALYST EVALUATION Routine 09/14/2024 2:38 PM EDUCATION ADVISER SPUTUM CULTURE WITH GRAM STAIN Routine 09/14/2024 11:29 AM EDUCATION ADVISER PNEUMONIA PATHOGEN PCR PANEL Routine 09/14/2024 11:29 AM EDUCATION ADVISER VANCOMYCIN LEVEL RANDOM Routine 09/14/2024 7:11 AM EDUCATION ADVISER BASIC METABOLIC PANEL Routine 09/14/2024 7:11 AM EDUCATION ADVISER CBC WITHOUT DIFFERENTIAL Routine 09/14/2024 7:11 AM EDUCATION ADVISER SPUTUM CULTURE WITH GRAM STAIN Routine 09/14/2024 6:29 AM EDUCATION ADVISER LACTIC ACID Stat 09/14/2024 12:04 AM EDUCATION ADVISER TROPONIN 6 HR, 5TH GEN Timed Study 09/14/2024 12:04 AM EDUCATION ADVISER POC GLUCOSE Routine 09/13/2024 9:40 PM EDUCATION ADVISER RESPIRATORY PATHOGEN PCR PANEL Routine 09/13/2024 9:32 PM EDUCATION ADVISER TROPONIN 2 HR, 5TH GEN Timed Study 09/13/2024 7:43 PM EDUCATION ADVISER RESPIRATORY THERAPY COMMUNICATION Stat 09/13/2024 7:18 PM EDUCATION ADVISER EXTRA TUBE (URINE CLEMENTS) Stat 09/13/2024 5:56 PM EDUCATION ADVISER URINALYSIS W/REFLEX MICROSCOPIC Stat 09/13/2024 5:56 PM EDUCATION ADVISER EKG 12-LEAD Stat 09/13/2024 5:51 PM EDUCATION ADVISER XR CHEST PA OR AP 1 VW Stat 09/13/2024 5:12 PM EDUCATION ADVISER TROPONIN BASELINE, 5TH GEN Stat 09/13/2024 4:48 PM EDUCATION ADVISER LACTIC ACID Stat 09/13/2024 4:48 PM EDUCATION ADVISER COMPREHENSIVE METABOLIC PANEL Stat 09/13/2024 4:48 PM EDUCATION ADVISER CBC WITH DIFFERENTIAL Stat 09/13/2024 4:48 PM EDUCATION ADVISER BLOOD CULTURE Stat 09/13/2024 4:48 PM EDUCATION ADVISER BLOOD CULTURE Stat 09/13/2024 4:48 PM EDUCATION ADVISER BLOOD CULTURE Stat 09/13/2024 4:48 PM EDUCATION ADVISER BLOOD CULTURE Stat 09/13/2024 4:48 PM EDUCATION ADVISER RT ASSESS AND TREAT Stat 09/13/2024 4 :43 PM EDUCATION ADVISER CRITICAL CARE Routine 09/13/2024 4:22 PM EDUCATION ADVISER COMPREHENSIVE METABOLIC PANEL Stat 09/13/2024 1:37 PM EDUCATION ADVISER Laryngeal squamous cell carcinoma (CMS/HCC) CBC WITH DIFFERENTIAL Stat 09/13/2024 1:37 PM EDUCATION ADVISER Laryngeal squamous cell carcinoma (CMS/HCC) PATHOLOGY Pathology 07/31/2024 1:27 PM EDUCATION ADVISER Laryngeal squamous cell carcinoma (CMS/HCC) BASIC METABOLIC PANEL Stat 07/18/2024 9:20 AM EDUCATION ADVISER Laryngeal squamous cell carcinoma (CMS/HCC) HEMOGLOBIN A1C Stat 01/09/2024 4:16 PM CDT from Last 3 Months or Most Recently Relevant to Health Maintenance Results * (ABNORMAL) CBC WITH DIFFERENTIAL (10/13/2024 3:12 PM EDUCATION ADVISER) Only the most recent of10 resultswithin the time period is included. WBC 13.4(H) 4.8 - 10.8 K/uL 10/13/2024 3:28 PM [facility] [place] RBC 4.57 4.20 - 5.40 M/uL 10/13/2024 3:28 PM [facility] [place] HEMOGLOBIN 13.9 12.0 - 16.0 g/dL 10/13/2024 3:28 PM [facility] [place] HEMATOCRIT 41.9 36.0 - 46.0 % 10/13/2024 3:28 PM [facility] [place] MCV 91.7 82.0 - 100.0 fL 10/13/2024 3:28 PM [facility] [place] MCH 30.4 27.0 - 34.0 pg 10/13/2024 3:28 PM [facility] [place] MCHC 33.2 31.0 - 37.0 g/dL 10/13/2024 3:28 PM [facility] [place] RDW 14.5 11.0 - 14.5 % 10/13/2024 3:28 PM [facility] [place] RDW-STDEV 47.1 37.0 - 54.0 fL 10/13/2024 3:28 PM [facility] [place] PLATELETS 265 140 - 440 K/uL 10/13/2024 3:28 PM [facility] [place] MPV 9.5 8.9 - 12.8 fL 10/13/2024 3:28 PM [facility] [place] NEUTROPHILS 78(H) 42 - 75 % 10/13/2024 3:28 PM [facility] [place] LYMPHOCYTES 13(L) 24 - 44 % 10/13/2024 3:28 PM [facility] [place] MONOCYTES 7 2 - 10 % 10/13/2024 3:28 PM [facility] [place] EOSINOPHILS 1 0 - 7 % 10/13/2024 3:28 PM [facility] [place] BASOPHILS 0 0 - 1 % 10/13/2024 3:28 PM [facility] [place] IMMATURE GRANULOCYTES 1 0 - 2 % 10/13/2024 3:28 PM [facility] [place] NEUTROPHIL ABSOLUTE 10.45(H) 1.40 - 6.50 K/uL 10/13/2024 3:28 PM [facility] [place] LYMPHOCYTE ABSOLUTE 1.69 1.20 - 4.00 K/uL 10/13/2024 3:28 PM [facility] [place] MONOCYTE ABSOLUTE 0.99(H) 0.10 - 0.60 K/uL 10/13/2024 3:28 PM [facility] [place] EOSINOPHIL ABSOLUTE 0.09 0.00 - 0.70 K/uL 10/13/2024 3:28 PM [facility] [place] BASOPHILS ABSOLUTE 0.02 0.00 - 0.20 K/uL 10/13/2024 3:28 PM [facility] [place] IMMATURE GRANULOCYTES ABSOLUTE 0.14(H) 0.00 - 0.10 K/uL 10/13/2024 3:28 PM [facility] [place] Blood Venipuncture / Unknown 10/13/2024 3:12 PM EDUCATION ADVISER 10/13/2024 3:22 PM EDUCATION ADVISER Rashmi Dumont MD HEMATOLOGY ORDERABLES Fin al Result [facility] - [facility]# [id number] [facility] [phone] [place] [address] * MAGNESIUM LEVEL (10/13/2024 3:12 PM EDUCATION ADVISER) Only the most recent of4 resultswithin the time period is included. MAGNESIUM 2.2 1.6 - 2.6 mg/dL 10/13/2024 3:48 PM [facility] [place] Blood Venipuncture / Unknown 10/13/2024 3:12 PM EDUCATION ADVISER 10/13/2024 3:22 PM EDUCATION ADVISER Rashmi Dumont MD CHEMISTRY ORDERABLES Yareli bland Result [facility] [place]LL[place]# [id number] [address] [place] [address] * (ABNORMAL) COMPREHENSIVE METABOLIC PANEL (10/13/2024 3:12 PM EDUCATION ADVISER) Only the most recent of4 resultswithin the time period is included. SODIUM 136 136 - 145 mmol/L 10/13/2024 3:48 PM [facility] [place] POTASSIUM 4.5 3.5 - 5.1 mmol/L 10/13/2024 3:48 PM [facility] [place] CHLORIDE 96(L) 98 - 107 mmol/L 10/13/2024 3:48 PM [facility] [place] CO2 27 22 - 29 mmol/L 10/13/2024 3:48 PM [facility] [place] CALCIUM 9.3 8.6 - 10.0 mg/dL 10/13/2024 3:48 PM [facility] [place] BUN 52(H) 6 - 20 mg/dL 10/13/2024 3:48 PM [facility] [place] CREATININE 1.47(H) 0.51 - 0.95 mg/dL 10/13/2024 3:48 PM [facility] [place] GLUCOSE 114(H) 74 - 99 mg/dL 10/13/2024 3:48 PM [facility] [place] TOTAL PROTEIN 7.3 6.4 - 8.3 g/dL 10/13/2024 3:48 PM [facility] [place] ALBUMIN 3.6 3.5 - 5.2 g/dL 10/13/2024 3:48 PM [facility] [place] BILIRUBIN TOTAL 0.3 0.2 - 1.0 mg/dL 10/13/2024 3:48 PM [facility] [place] ALKALINE PHOSPHATASE 75 35 - 104 U/L 10/13/2024 3:48 PM [facility] [place] AST 34(H) <=33 U/L 10/13/2024 3:48 PM [facility] ALT 27 <=33 U/L 10/13/2024 3:48 PM [facility] GFR 43(L) >=60 mL/min/1.7 3 sq meter 10/13/2024 3:48 PM [facility] Comment:eGFR calculated with 2020 CKD-EPI equation. Vegetarian diet, extremely high or low muscle mass, and may affect results. Cystatin C with Glomerular Filtration Rate is a suitable alternative for these patients. ANION GAP 13 9 - 20 mmol/L 10/13/2024 3:48 PM [facility] Blood Venipuncture / Unknown 10/13/2024 3:12 PM EDUCATION ADVISER 10/13/2024 3:22 PM EDUCATION ADVISER Rashmi Dumont MD CHEMISTRY ORDERABLES Yareli l Result [facility] CLIA# [id number] [address] [place] [address] * TELEMETRY REPORT (09/29/2024 2:56 AM EDUCATION ADVISER) Provider Scanning ECG ORDERABLES Final Result * (ABNORMAL) BASIC METABOLIC PANEL (09/28/2024 4:17 AM EDUCATION ADVISER) Only the most recent of13 resultswithin the time period is included. SODIUM 140 136 - 145 mmol/L 09/28/2024 6:04 AM [facility] POTASSIUM 4.0 3.5 - 5.1 mmol/L 09/28/2024 6:04 AM [facility] CHLORIDE 105 98 - 107 mmol/L 09/28/2024 6:04 AM [facility] CO2 25 22 - 29 mmol/L 09/28/2024 6:04 AM [facility] CALCIUM 8.8 8.6 - 10.0 mg/dL 09/28/2024 6:04 AM [facility] BUN 31(H) 6 - 20 mg/dL 09/28/2024 6:04 AM [facility] CREATININE 1.42(H) 0.51 - 0.95 mg/dL 09/28/2024 6:04 AM [facility] GLUCOSE 112(H) 74 - 99 mg/dL 09/28/2024 6:04 AM [facility] GFR 45(L) >=60 mL/min/1. 73 sq meter 09/28/2024 6:04 AM [facility] Comment:eGFR calculated with 2020 CKD-EPI equation. Vegetarian diet, extremely high or low muscle mass, and may affect results. Cystatin C with Glomerular Filtration Rate is a suitable alternative for these patients. ANION GAP 10 9 - 20 mmol/L 09/28/2024 6:04 AM [facility] Blood Venipuncture / Unknown 09/28/2024 4:17 AM EDUCATION ADVISER 09/28/2024 5:29 AM EDUCATION ADVISER us Arlyn Hawkins MD CHEMISTRY ORDERABLES Final Res ult [facility] CLIA # [id number] [address] [place] [address] * CT GUIDED RAD THERAPY FIELD (09/26/2024 3:22 PM EDUCATION ADVISER) Narrative 09/26/2024 3:22 PM EDUCATION ADVISER Order information only. ??Exam was auto-finalized. ?? us Karla Goldberg MD CT ORDERABLES Final Resul t * EKG 12-LEAD (09/25/2024 10:14 AM EDUCATION ADVISER) Only the most recent of4 resultswithin the time period is included. 09/25/2024 10:1 4 AM EDUCATION ADVISER Narrative INTERFACE SYSTEM - 09/25/2024 11:23 PM EDUCATION ADVISER ?[facility] ? [address] [place] [address] ? Test Date: ?2024-09-25 Pat Name: ? VENTURA CATARINA ?Department: ?? 12 ?Room: ? 3155 01 Gender: ? Female ? Communications Department Chairperson: ?? [id number] : ?1975 ? Requested By: ?? Order Number: [id number] ? Reading MD: ?? Indrajeet Mahata ? Measurements Intervals ?[place] ? Rate: ? 109 ?P: ?25 VT: ? 132 ?QRS: ?-3 QRSD: ? 84 ? T: ?102 QT: ? 362 ? QTc: ?487 ? Interpretive Statements Sinus tachycardia ST & T wave abnormality, consider lateral ischemia Abnormal ECG baseline artefact Electronically Signed On 09-25-2024 23:23:45 EDUCATION ADVISER by Maurilio Zhang Procedure Note Maurilio Zhang MD - 09/25/2024 [facility] [address] [place] [id number] Test Date: 2024-09-25 Pat Name: VENTURA ROBINSETH Department: 12 Room: [address] [place] [address] Gender: Female Communications Department Chairperson: [id number] : 1975 Requested By: Order Number: [id number] Reading MD: Maurilio Zhang Measurements Intervals [place] Rate: 109 P: 25 VT: 132 QRS: -3 QRSD: 84 T: 102 QT: 362 QTc: 487 Interpretive Statements Sinus tachycardia ST & T wave abnormality, consider lateral ischemia Abnormal ECG baseline artefact Electronically Signed On 09-25-2024 23:23:45 EDUCATION ADVISER by Maurilio Zhang us Arlyn Hawkins MD ECG ORDERABLES Final Result Performing Organization Address City/State/[facility] Co de Phone Number INTERFACE SYSTEM Refer to clinic/hospital department * TSH (09/25/2024 2:32 AM EDUCATION ADVISER) TSH 1.29 0.27 - 4.20 uIU/mL 09/25/2024 3:28 AM EDUCATION ADVISER [facility] Blood Venipuncture / Unknown 09/25/2024 2:32 AM EDUCATION ADVISER 09/25/2024 2:35 AM EDUCATION ADVISER us Arlyn Hawkins MD CHEMISTRY ORDERABLES Final Res ult Performing Organization Address [facility] Co de Phone Number [facility] CLIA # [id number] [id number] [place] [address] * PHOSPHORUS (09/25/2024 2:32 AM EDUCATION ADVISER) Only the most recent of2 resultswithin the time period is included. PHOSPHORUS 4.2 2.5 - 4.5 mg/dL 09/25/2024 3:28 AM EDUCATION ADVISER [facility] Blood Venipuncture / Unknown 09/25/2024 2:32 AM EDUCATION ADVISER 09/25/2024 2:35 AM [facility] Arlyn Hawkins MD CHEMISTRY ORDERABLES Final Res ult Performing Organization Address [facility] de Phone Number [facility] CLIA # [id number] [address] [address] * ECHO COMPLETE - CONTRAST AND STRAIN IF INDICATED (09/18/2024 11:15 AM EDUCATION ADVISER) Pathologist [facility] EJECTION FRACTION EF: INTERFACE SYSTEM 09/18/2024 10:1 3 AM [facility] Narrative INTERFACE SYSTEM - 09/18/2024 3:03 PM [facility] Ech[facility] [address] [place] [address] Transthoracic Echocardiography Patient: ?? Catarina, ? Study ID: ECHO COMPLETE - ? [place] Gender: ?F ? : ? 1975 ??Age: ?49 Room: ?[facility] ? Study ?09/18/2024 ??Pt ?Inpatient ? Date: ?Status: Study ?10:13:58 AM ? CSN #: ? [id number] Time: Ordering:Wilfredo Harmon Meat Molder: Guerda Bourgeois [facility] Indications and History: ?Abnormal ECG. Summary and Conclusion: - Left ventricle: The cavity size is normal. Wall thickness is increased in a ??pattern of moderate LVH. Global systolic function is vigorous. The estimated ??ejection fraction is 65-70%. No diagnostic regional wall motion abnormality ??identified. Diastolic function is indeterminate. The longitudinal strain is ??-16.6% (Normal range is -18 to -25).. - Right ventricle: The cavity size is normal. Systolic function is normal. ??Systolic pressure is at the upper limits of normal. - Mitral valve: The annulus is mildly calcified. There is trace regurgitation. - Tricuspid valve: There is mild regurgitation. - Pericardium: A trivial pericardial effusion is identified circumferential to ??the heart. Procedure information: ??No prior study is available for comparison. ??Study status: ??Routine. ??Procedure: ??A transthoracic echocardiogram was performed. Image quality was adequate. Scanning was performed from the parasternal, apical, subcostal, and suprasternal notch acoustic windows. ?Study components: M-mode, 2D, complete spectral Doppler, and color Doppler. Height: 165.1cm. Height: 65in. ?Weight: 85.7kg. Weight: 188.9lb. ?BMI: 31.4kg/m^2. ?BSA: 2.01m^2. ??Blood pressure: ? 107/96 ?Study date: 09/18/2024. Study time: 10:13 AM. Cardiac Anatomy: LEFT VENTRICLE: ??The cavity size is normal. Wall thickness is increased in a pattern of moderate LVH. Global systolic function is vigorous. The estimated ejection fraction is 65-70%. No diagnostic regional wall motion abnormality identified. The longitudinal strain is -16.6% (Normal range is -18 to -25).. Diastolic function is indeterminate. RIGHT VENTRICLE: ??The cavity size is normal. Systolic function is normal. Systolic pressure is at the upper limits of normal. LEFT ATRIUM: ??The atrium is normal in size. RIGHT ATRIUM: ??The atrium is normal in size. ATRIAL SEPTUM: ??No obvious PFO or ASD identified by 2D imaging and color Doppler. AORTIC VALVE: ??The valve is trileaflet. The leaflets are normal thickness. Mobility is not restricted. Velocity is minimally increased. There is no stenosis. There is no significant regurgitation. MITRAL VALVE: ??The annulus is mildly calcified. Mobility is not restricted. No evidence for prolapse. ??There is no evidence for stenosis. ?? There is trace regurgitation. TRICUSPID VALVE: ?? Structurally normal valve. ?? Mobility is unrestricted. There is no evidence for stenosis. ?? There is mild regurgitation. PULMONIC VALVE: ??Not well visualized. ??The valve appears to be grossly normal. ?? There is no evidence for stenosis. ?? There is no significant regurgitation. PERICARDIUM: ??A trivial pericardial effusion is identified circumferential to the heart. AORTA: Aortic root: The root is not dilated. Aortic arch: The vessel is not dilated. INTRACARDIAC MASS THROMBUS: ??No apparent intracavitary masses or thrombi detected. Measurements Left ventricle ? Value ? Left ventricle continued ??Value GLS, 2D ?-16.6 % ? E/e', lat donovan, TDI ?12 CLARA, LAX ? 4.7 ?? cm ?E', med donovan, TDI ?6.3 ?? cm/sec ESD, LAX ? 2.7 ?? cm ?E/e', med donovan, TDI ?12 CLARA/bsa, LAX ? 2.3 ?? cm/m^2 ??E', avg, TDI ?6.3 ?? cm/sec ESD/bsa, LAX ? 1.3 ?? cm/m^2 ??E/e', avg, TDI ?12 FS, LAX ?43 ?% FS, LAX chord ?43 ?% ? LVOT ?Value ESD major ax, A4C ?6.1 ?? cm ?Peak alyson, S ? 175 ?? cm/sec ESD/bsa major ax, A4C ??3.0 ?? cm/m^2 ??Peak grad, S ?12 ?mm Hg CLARA minor ax, A4C ?6.1 ?? cm CLARA/bsa minor ax, A4C ??3.0 ?? cm/m^2 ??Right ventricle ? Value ISAAC, A4C ? 18.8 ??cm^2 ?CLARA, LAX ?2.8 ?? cm LUIS, A4C ? 12.3 ??cm^2 ?CLARA ? 2.8 ?? cm FAC, A4C ? 35 ?% ? TAPSE, 2D ? 2.3 ?? cm CLARA major ax, A2C ?6.2 ?? cm ?TAPSE, MM ? 2.3 ?? cm CLARA/bsa major ax, A2C ??3.1 ?? cm/m^2 ??S' lateral ?18.4 ??cm/sec ISAAC, A2C ? 19.1 ??cm^2 LUIS, A2C ? 9.6 ?? cm^2 ?Left atrium ? Value FAC, A2C ? 50 ?% ? AP dim, ES ?3.6 ?? cm IVS, ED ?1.4 ?? cm ?AP dim index, ES ?1.8 ?? cm/m^2 ESD ?2.7 ?? cm ?Area ES, A4C ?15 ?cm^2 ESD/bsa ?1.3 ?? cm/m^2 ??SI dim, A2C ? 3.7 ?? cm PW, ED ? 1.3 ?? cm ?Vol, ES, 1-p A4C ?31 ?ml IVS/PW, ED ? 1.08 ?Vol/bsa, ES, 1-p A4C ?15 ?ml/m^2 EDV ?101 ?? ml ?Vol, ES, 1-p A2C ?21 ?ml ESV ?26 ?ml ?Vol/bsa, ES, 1-p A2C ?11 ?ml/m^2 EF ? 74 ?% EDV/bsa ?50 ?ml/m^2 ??Right atrium ?Value ESV/bsa ?13 ?ml/m^2 ??Area, ES, A4C ? 13 ?cm^2 EDV, 1-p A2C ? 47 ?ml ESV, 1-p A2C ? 31 ?ml ?Aortic valve ?Value EF, 1-p A2C ?67 ?% ? Peak v, S ? 192 ?? cm/sec SV, 1-p A2C ?75 ?ml ?Peak grad, S ?15 ?mm Hg EDV/bsa, 1-p A2C ? 23 ?ml/m^2 ??LVOT/AV, Vpeak ratio ?0.91 ESV/bsa, 1-p A2C ? 15 ?ml/m^2 SV/bsa, 1-p A2C ?37.1 ??ml/m^2 ??Mitral valve ?Value EDV, 1-p A4C ? 51 ?ml ?Peak E ?73.9 ??cm/sec ESV, 1-p A4C ? 21 ?ml ?Peak A ?100 ?? cm/sec EF, 1-p A4C ?59 ?% ? Decel time ?285 ?? ms SV, 1-p A4C ?83 ?ml ?Peak grad, D ?2 ? mm Hg EDV/bsa, 1-p A4C ? 25 ?ml/m^2 ??Peak E/A ratio ?0.7 ESV/bsa, 1-p A4C ? 10 ?ml/m^2 SV/bsa, 1-p A4C ?41 ?ml/m^2 ??Tricuspid valve ? Value EDV, 2-p ? 51 ?ml ?TR peak v ? 280 ?? cm/sec ESV, 2-p ? 19 ?ml ?Peak RV-RA grad, S ?31 ?mm Hg EF, 2-p ?64 ?% ? Max TR alyson ?280 ?? cm/sec SV, 2-p ?33 ?ml ?Peak RV-RA grad, S ?31 ?mm Hg EDV/bsa, 2-p ? 25 ?ml/m^2 ESV/bsa, 2-p ? 9 ? ml/m^2 ??Aortic root ? Value SV/bsa, 2-p ?15.5 ??ml/m^2 ??Root diam ? 3.1 ?? cm EDV, MM Teich. ? 101 ?? ml ?Root diam/bsa ? 1.6 ?? cm/m^2 EF, MM Teich. ?74 ?% EDV/bsa, MM Teich. ? 50 ?ml/m^2 ??Ascending aorta ? Value EF, MM on 2D Teich. ?74 ?% ? AAo AP diam, S ?3.6 ?? cm E', lat donovan, TDI ? 6.3 ?? cm/sec ??AAo AP diam/bsa, S ?1.8 ?? cm/m^2 Legend: (L) ??and ??(H) ??channing values outside specified reference range. [facility] are accredited with the [facility] Accreditation Commission - Echocardiography. Prepared and Electronically Authenticated Jad Wong Confirmed ? 09/18/2024 15:03 Procedure Note Jad Wong MD - 09/18/2024 [facility] Echocardiography Laboratory [address] [place] [id number] Transthoracic Echocardiography Patient: Catarina Study ID: ECHO ANDREAYemi Carson Gender: F : 1975 Age: 49 Room: [facility] Study 09/18/2024 Pt Inpatient Date: Status: Study 10:13:58 AM CSN #: [id number] Time: Ordering:Wilfredo Harmon Meat Molder: Guerda Bourgeois RDCS Indications and History: Abnormal ECG. Summary and Conclusion: - Left ventricle: The cavity size is normal. Wall thickness is increasedin a pattern of moderate LVH. Global systolic function is vigorous. Theestimated ejection fraction is 65-70%. No diagnostic regional wall motionabnormality identified. Diastolic function is indeterminate. The longitudinal strainis -16.6% (Normal range is -18 to -25).. - Right ventricle: The cavity size is normal. Systolic function isnormal. Systolic pressure is at the upper limits of normal. - Mitral valve: The annulus is mildly calcified. There is traceregurgitation. - Tricuspid valve: There is mild regurgitation. - Pericardium: A trivial pericardial effusion is identifiedcircumferential to the heart. Procedure information: No prior study is available for comparison.Study status: Routine. Procedure: A transthoracic echocardiogram wasperformed. Image quality was adequate. Scanning was performed from the parasternal, apical, subcostal, and suprasternal notch acoustic windows.Study components: M-mode, 2D, complete spectral Doppler, and color Doppler. Height: 165.1cm. Height: 65in. Weight: 85.7kg. Weight: 188.9lb.BMI: 31.4kg/m^2. BSA: 2.01m^2. Blood pressure: 107/96 Studydate: 09/18/2024. Study time: 10:13 AM. Cardiac Anatomy: LEFT VENTRICLE: The cavity size is normal. Wall thickness is increased cuong pattern of moderate LVH. Global systolic function is vigorous. Theestimated ejection fraction is 65-70%. No diagnostic regional wall motionabnormality identified. The longitudinal strain is -16.6% (Normal range is -18 to-25).. Diastolic function is indeterminate. RIGHT VENTRICLE: The cavity size is normal. Systolic function isnormal. Systolic pressure is at the upper limits of normal. LEFT ATRIUM: The atrium is normal in size. RIGHT ATRIUM: The atrium is normal in size. ATRIAL SEPTUM: No obvious PFO or ASD identified by 2D imaging and color Doppler. AORTIC VALVE: The valve is trileaflet. The leaflets are normalthickness. Mobility is not restricted. Velocity is minimally increased. There is no stenosis. There is no significant regurgitation. MITRAL VALVE: The annulus is mildly calcified. Mobility is notrestricted. No evidence for prolapse. There is no evidence for stenosis. There istrace regurgitation. TRICUSPID VALVE: Structurally normal valve. Mobility isunrestricted. There is no evidence for stenosis. There is mild regurgitation. PULMONIC VALVE: Not well visualized. The valve appears to be grosslynormal. There is no evidence for stenosis. There is no significantregurgitation. PERICARDIUM: A trivial pericardial effusion is identified circumferentialto the heart. AORTA: Aortic root: The root is not dilated. Aortic arch: The vessel is not dilated. INTRACARDIAC MASS THROMBUS: No apparent intracavitary masses or thrombi detected. Measurements Left ventricle Value Left ventricle continued Value GLS, 2D -16.6 % E/e', lat donovan, TDI 12 CLARA, LAX 4.7 cm E', med donovan, TDI 6.3cm/sec ESD, LAX 2.7 cm E/e', med donovan, TDI 12 CLARA/bsa, LAX 2.3 cm/m^2 E', avg, TDI 6.3cm/sec ESD/bsa, LAX 1.3 cm/m^2 E/e', avg, TDI 12 FS, LAX 43 % FS, LAX chord 43 % LVOT Value ESD major ax, A4C 6.1 cm Peak alyson, S 175cm/sec ESD/bsa major ax, A4C 3.0 cm/m^2 Peak grad, S 12 mmHg CLARA minor ax, A4C 6.1 cm CLARA/bsa minor ax, A4C 3.0 cm/m^2 Right ventricle Value ISAAC, A4C 18.8 cm^2 CLARA, LAX 2.8 cm LUIS, A4C 12.3 cm^2 CLARA 2.8 cm FAC, A4C 35 % TAPSE, 2D 2.3 cm CLARA major ax, A2C 6.2 cm TAPSE, MM 2.3 cm CLARA/bsa major ax, A2C 3.1 cm/m^2 S' lateral 18.4cm/sec ISAAC, A2C 19.1 cm^2 LUIS, A2C 9.6 cm^2 Left atrium Value FAC, A2C 50 % AP dim, ES 3.6 cm IVS, ED 1.4 cm AP dim index, ES 1.8cm/m^2 ESD 2.7 cm Area ES, A4C 15cm^2 ESD/bsa 1.3 cm/m^2 SI dim, A2C 3.7 cm PW, ED 1.3 cm Vol, ES, 1-p A4C 31 ml IVS/PW, ED 1.08 Vol/bsa, ES, 1-p A4C 15ml/m^2 EDV 101 ml Vol, ES, 1-p A2C 21 ml ESV 26 ml Vol/bsa, ES, 1-p A2C 11ml/m^2 EF 74 % EDV/bsa 50 ml/m^2 Right atrium Value ESV/bsa 13 ml/m^2 Area, ES, A4C 13cm^2 EDV, 1-p A2C 47 ml ESV, 1-p A2C 31 ml Aortic valve Value EF, 1-p A2C 67 % Peak v, S 192cm/sec SV, 1-p A2C 75 ml Peak grad, S 15 mmHg EDV/bsa, 1-p A2C 23 ml/m^2 LVOT/AV, Vpeak ratio 0.91 ESV/bsa, 1-p A2C 15 ml/m^2 SV/bsa, 1-p A2C 37.1 ml/m^2 Mitral valve Value EDV, 1-p A4C 51 ml Peak E 73.9cm/sec ESV, 1-p A4C 21 ml Peak A 100cm/sec EF, 1-p A4C 59 % Decel time 285 ms SV, 1-p A4C 83 ml Peak grad, D 2 mmHg EDV/bsa, 1-p A4C 25 ml/m^2 Peak E/A ratio 0.7 ESV/bsa, 1-p A4C 10 ml/m^2 SV/bsa, 1-p A4C 41 ml/m^2 Tricuspid valve Value EDV, 2-p 51 ml TR peak v 280cm/sec ESV, 2-p 19 ml Peak RV-RA grad, S 31 mmHg EF, 2-p 64 % Max TR alyson 280cm/sec SV, 2-p 33 ml Peak RV-RA grad, S 31 mmHg EDV/bsa, 2-p 25 ml/m^2 ESV/bsa, 2-p 9 ml/m^2 Aortic root Value SV/bsa, 2-p 15.5 ml/m^2 Root diam 3.1 cm EDV, MM Teich. 101 ml Root diam/bsa 1.6cm/m^2 EF, MM Teich. 74 % EDV/bsa, MM Teich. 50 ml/m^2 Ascending aorta Value EF, MM on 2D Teich. 74 % AAo AP diam, S 3.6 cm E', lat donovan, TDI 6.3 cm/sec AAo AP diam/bsa, S 1.8cm/m^2 Legend: (L) and (H) channing values outside specified reference range. [facility] are accredited with the[facility] [employer]reditation Commission - Echocardiography. Prepared and Electronically Authenticated Jad Wong Confirmed 09/18/2024 15:03 Wilfredo Harmon MD ORDERABLES Final Result INTERFACE SYSTEM Refer to clinic/hospital department * (ABNORMAL) CBC WITHOUT DIFFERENTIAL (09/18/2024 3:22 AM EDUCATION ADVISER) Only the most recent of5 resultswithin the time period is included. WBC 5.9 4.8 - 10.8 K/uL 09/18/2024 3:42 AM [facility] RBC 3.59(L) 4.20 - 5.40 M/uL 09/18/2024 3:42 AM [facility] HEMOGLOBIN 10.7(L) 12.0 - 16.0 g/dL 09/18/2024 3:42 AM [facility] HEMATOCRIT 34.5(L) 36.0 - 46.0 % 09/18/2024 3:42 AM [facility] MCV 96.1 84.0 - 103.0 fL 09/18/2024 3:42 AM [facility] MCH 29.8 27.0 - 34.0 pg 09/18/2024 3:42 AM [facility] Endorphin [facility] MCHC 31.0 30.0 - 35.0 g/dL 09/18/2024 3:42 AM [facility] PLATELETS 231 140 - 440 K/uL 09/18/2024 3:42 AM [facility] MPV 9.5 8.9 - 12.8 fL 09/18/2024 3:42 AM [facility] Endorphin [facility] RDW 12.4 11.0 - 14.5 % 09/18/2024 3:42 AM EDUCATION ADVISER [facility] RDW-STDEV 43.5 37.0 - 54.0 fL 09/18/2024 3:42 AM EDUCATION ADVISER [facility] Blood Venipuncture / Unknown 09/18/2024 3:22 AM EDUCATION ADVISER 09/18/2024 3:37 AM EDUCATION ADVISER Wilfredo Harmon MD HEMATOLOGY ORDERABLES Final Res ult Performing Organization Address City/[facility]/ZIP Co de Phone Number [facility] CLIA # [id number] [address] [address] [place] [address] * POC GLUCOSE (09/17/2024 1:49 PM EDUCATION ADVISER) Only the most recent of2 resultswithin the time period is included. GLUCOSE POC 88 74 - 99 mg/dL 09/17/2024 1:49 PM EDUCATION ADVISER [facility] SPECIMEN SOURCE, GLUCOSE POC Capillary 09/17/2024 1:49 PM EDUCATION ADVISER [facility] Blood, whole 09/17/2024 1:49 PM EDUCATION ADVISER 09/17/2024 2:39 PM EDUCATION ADVISER Wilfredo Harmon MD POINT OF CARE TESTING Final Res ult Performing Organization Address [facility] de Phone Number [facility] CLIA # [id number] [address] [address] * (ABNORMAL) RENAL FUNCTION PANEL (09/17/2024 4:00 AM EDUCATION ADVISER) SODIUM 138 136 - 145 mmol/L 09/17/2024 4:46 AM [facility] POTASSIUM 4.9 3.5 - 5.1 mmol/L 09/17/2024 4:46 AM [facility] CHLORIDE 106 98 - 107 mmol/L 09/17/2024 4:46 AM [facility] CO2 25 22 - 29 mmol/L 09/17/2024 4:46 AM [facility] CALCIUM 9.2 8.6 - 10.0 mg/dL 09/17/2024 4:46 AM [facility] BUN 22(H) 6 - 20 mg/dL 09/17/2024 4:46 AM [facility] CREATININE 1.14(H) 0.51 - 0.95 mg/dL 09/17/2024 4:46 AM [facility] GLUCOSE 83 74 - 99 mg/dL 09/17/2024 4:46 AM [facility] ALBUMIN 3.0(L) 3.5 - 5.2 g/dL 09/17/2024 4:46 AM [facility] PHOSPHORUS 3.6 2.5 - 4.5 mg/dL 09/17/2024 4:46 AM [facility] GFR 58(L) >=60 mL/min/1. 73 sq meter 09/17/2024 4:46 AM [facility] Comment:eGFR calculated with 2020 CKD-EPI equation. Vegetarian diet, extremely high or low muscle mass, and may affect results. Cystatin C with Glomerular Filtration Rate is a suitable alternative for these patients. ANION GAP 7(L) 9 - 20 mmol/L 09/17/2024 4:46 AM [facility] Blood Venipuncture / Unknown 09/17/2024 4:00 AM EDUCATION ADVISER 09/17/2024 4:12 AM [facility] Wilfredo Harmon MD CHEMISTRY ORDERABLES Final Resu lt [facility] CLIA # [id number] [address] [place] [id number] * (ABNORMAL) HEPATIC FUNCTION PANEL (09/16/2024 4:25 AM EDUCATION ADVISER) TOTAL PROTEIN 5.5(L) 6.4 - 8.3 g/dL 09/16/2024 5:21 AM [facility] ALBUMIN 2.7(L) 3.5 - 5.2 g/dL 09/16/2024 5:21 AM [facility] BILIRUBIN TOTAL 0.2 0.2 - 1.0 mg/dL 09/16/2024 5:21 AM [facility] BILIRUBIN DIRECT <0.1 0.0 - 0.3 mg/dL 09/16/2024 5:21 AM [facility] Comment:Hemolyzed: Result ma y be falsely decreased. ALKALINE PHOSPHATASE 52 35 - 104 U/L 09/16/2024 5:21 AM [facility] AST 26 10 - 35 U/L 09/16/2024 5:21 AM [facility] Comment:Hemolysis present. R esult may be falsely elevated. ALT 20 <=35 U/L 09/16/2024 5:21 AM [facility] Blood Venipuncture / Unknown 09/16/2024 4:25 AM EDUCATION ADVISER 09/16/2024 4:34 AM [facility] Wilfredo Harmon MD CHEMISTRY ORDERABLES Final Resu lt [facility] CLIA # [id number] [address] [place] [id number] * (ABNORMAL) DRUG SCREEN, URINE (09/15/2024 10:41 PM EDUCATION ADVISER) AMPHETAMINE QUAL, URINE Negative Negative 09/15/2024 11:29 PM [facility] BARBITURATE QUAL, URINE Negative Negative 09/15/2024 11:29 PM [facility] BENZODIAZEPINE QUAL, URINE Negative Negative 09/15/2024 11:29 PM [facility] COCAINE QUAL URINE Negative Negative 09/15/2024 11:29 PM [facility] OPIATE QUAL, URINE Presumptive Positive(A) Negative 09/15/2024 11:29 PM [facility] CANNABINOIDS QUAL, URINE Negative Negative 09/15/2024 11:29 PM [facility] OXYCODONE QUAL, URINE Negative Negative 09/15/2024 11:29 PM [facility] METHADONE QUAL, URINE Negative Negative 09/15/2024 11:29 PM [facility] FENTANYL QUAL, URINE Negative Negative 09/15/2024 11:29 PM [facility] CREATININE, URINE 43.6 29.0 - 226.0 mg/dL 09/15/2024 11:29 PM [facility] Comment:Reference Range vari es with fluid intake and diet. Urine URINE SPECIMEN OBTAINED BY CLEAN CATCH PROCEDURE / Unknown 09/15/2024 10:41 PM [facility] 09/15/2024 10:51 PM [facility] - 09/15/2024 11:29 PM [facility] This test is a qualitative screen. The presumptive positive results should not be used for legal purposes. If confirmation of results is desired, the lab must be contacted without delay. Drug ?Ref. Range ? Screening Threshold Amphetamines ? Negative ? 500 ng/mL Barbiturates ? Negative ? 200 ng/mL Benzodiazepines ?Negative ? 100 ng/mL Cannabinoids ? Negative ?50 ng/mL Cocaine Metabolite ? Negative ? 300 ng/mL Opiate ? Negative ? 300 ng/mL Oxycodone ?Negative ? 100 ng/mL Methadone ?Negative ? 300 ng/mL Fentanyl ? Negative ? 5 ng/mL Wilfredo Harmon MD URINE ORDERABLES Final Result [facility] # [id number] [address] [place] [address] [place] [address] * XR VIDEO SWALLOW W SPEECH (09/15/2024 2:43 PM EDUCATION ADVISER) Anatomical Region Laterality Modality Chest Computed Radiogr aphy 09/15/2024 2:43 PM EDUCATION ADVISER Impressions 09/15/2024 3:00 PM EDUCATION ADVISER IMPRESSION: Please see below. Exam: XR VIDEO SWALLOW W SPEECH Date/Time of Exam: 09/15/2024 2:43 PM Reason For Exam: Aspiration. This procedure was performed and preliminary findings dictated by JULIANO Campos. Supervision and final interpretation by Dr. Fay. Fluoroscopy was used for performance of video swallow study. The patient was given multiple consistencies of contrast material. The cervical esophagus is patent without stricture or obstruction. Trace airway penetration. Mild impression on the posterior cervical spine secondary to cervical spine degenerative change and bridging osteophyte formation. For further details regarding swallowing, please see detailed speech pathology report. Narrative Procedure Note Elio Sanchez MD - 09/15/2024 IMPRESSION: Please see below. Exam: XR VIDEO SWALLOW W SPEECH Date/Time of Exam: 09/15/2024 2:43 PM Reason For Exam: Aspiration. This procedure was performed and preliminary findings dictated by JULIANO Campos. Supervision and final interpretation by Dr. Sanchez. Fluoroscopy was used for performance of video swallow study. The patient was given multiple consistencies of contrast material. The cervical esophagus is patent without stricture or obstruction. Trace airway penetration. Mild impression on the posterior cervical spine secondary to cervical spine degenerative change and bridging osteophyte formation. For further details regarding swallowing, please see detailed speech pathology report. Savannah Garcia MD DIAGNOSTIC IMAGING ORDERABLES Fi nal Result * CT SOFT TISSUE NECK W CONTRAST (09/14/2024 5:04 PM EDUCATION ADVISER) Anatomical Region Laterality Modality Neck Computed Tomogra phy 09/14/2024 5:04 PM EDUCATION ADVISER Impressions 09/15/2024 9:01 AM EDUCATION ADVISER IMPRESSION: 1. ??A 3.1 x 2.3 x 2.1 cm mass of the left vocal cord with pericolonic extension appears similar to the PET/CT obtained on six 07/13/2024. This is consistent with the patient's clinical history of neoplasm. 2. ??A few subcentimeter bilateral cervical lymph nodes are present. 3. ??Possible interstitial pulmonary edema and bilateral lungs. 4. ??Mild paranasal sinus disease. 5. ??A tracheostomy tube is present. Narrative 09/15/2024 9:01 AM EDUCATION ADVISER EXAM: ??CT SOFT TISSUE NECK W CONTRAST DIAGNOSIS/REASON FOR EXAM: ??Hypovolemic shock (CMS/HCC); Hypotension, unspecified hypotension type; Hx of laryngeal cancer; Acute renal failure superimposed on chronic kidney disease, unspecified acute renal failure type, unspecified CKD stage. Head/neck cancer, lung met screen. DATE: ??09/14/2024, 5:04 PM. COMPARISON: ??PET/CT obtained on 07/13/2024. TECHNIQUE: ??Axial CT images of the soft tissue neck are obtained with contrast. Sagittal and coronal reconstructions were created. CONTRAST: ??Isovue-300, 100 mL intravenous. FINDINGS: ??Abutting the left-sided vocal cord and extending superiorly, there is a 3.1 x 2.3 x 2.1 cm soft tissue density mass. This mass appears to extends across the midline anteriorly. Possible small lytic areas are seen in the superior aspect of the left thyroid cartilage (series 306, image 105). The aryepiglottic folds are not well-visualized. Inferior to the anterior thyroid cartilage, there is an ill-defined area of soft tissue thickening. This area showed FDG uptake on the PET/CT from 07/13/2024. A left level 2A cervical lymph node measures 0.9 cm across its short axis. Multiple subcentimeter bilateral cervical lymph nodes are present. The parotid glands and submandibular glands are unremarkable. The bilateral paranasal sinuses have a small amount mucosal thickening. The thyroid gland is unremarkable. A tracheostomy tube is present. Interlobular septal thickening is present within both lungs. There are [id number] degenerative changes of the mid to lower cervical spine. Procedure Note Cedrick Joshi MD - 09/15/2024 EXAM: CT SOFT TISSUE NECK W CONTRAST DIAGNOSIS/REASON FOR EXAM: Hypovolemic shock (CMS/HCC); Hypotension, unspecified hypotension type; Hx of laryngeal cancer; Acute renal failure superimposed on chronic kidney disease, unspecified acute renal failure type, unspecified CKD stage. Head/neck cancer, lung met screen. DATE: 09/14/2024, 5:04 PM. COMPARISON: PET/CT obtained on 07/13/2024. TECHNIQUE: Axial CT images of the soft tissue neck are obtained with contrast. Sagittal and coronal reconstructions were created. CONTRAST: Isovue-300, 100 mL intravenous. FINDINGS: Abutting the left-sided vocal cord and extending superiorly, there is a 3.1 x 2.3 x 2.1 cm soft tissue density mass. This mass appears to extends across the midline anteriorly. Possible small lytic areas are seen in the superior aspect of the left thyroid cartilage (series 306, image 105). The aryepiglottic folds are not well-visualized. Inferior to the anterior thyroid cartilage, there is an ill-defined area of soft tissue thickening. This area showed FDG uptake on the PET/CT from 07/13/2024. A left level 2A cervical lymph node measures 0.9 cm across its short axis. Multiple subcentimeter bilateral cervical lymph nodes are present. The parotid glands and submandibular glands are unremarkable. The bilateral paranasal sinuses have a small amount mucosal thickening. The thyroid gland is unremarkable. A tracheostomy tube is present. Interlobular septal thickening is present within both lungs. There are [id number] degenerative changes of the mid to lower cervical spine. IMPRESSION: 1. A 3.1 x 2.3 x 2.1 cm mass of the left vocal cord with pericolonic extension appears similar to the PET/CT obtained on six 07/13/2024. This is consistent with the patient's clinical history of neoplasm. 2. A few subcentimeter bilateral cervical lymph nodes are present. 3. Possible interstitial pulmonary edema and bilateral lungs. 4. Mild paranasal sinus disease. 5. A tracheostomy tube is present. Guerda Willams [facility] CT ORDERABLES Final Result * CT CHEST ABDOMEN PELVIS W CONT (09/14/2024 5:03 PM EDUCATION ADVISER) Anatomical Region Laterality Modality Chest Computed Tomogra phy 09/14/2024 5:04 PM EDUCATION ADVISER Impressions 09/15/2024 8:37 AM EDUCATION ADVISER IMPRESSION: 1. ??Small areas of atelectasis or consolidation are scattered throughout both lungs. Multifocal pneumonia or aspiration are possibilities. 2. ??Probable interstitial pulmonary edema and bilateral lungs. 3. ??Cardiomegaly. 4. ??Coronary artery atherosclerotic calcifications. 5. ??Mild mediastinal lymphadenopathy. 6. ??Possible small hiatal hernia. 7. ??Three small to moderate-sized fat-containing periumbilical hernias are present. 8. ??Multiple old, healed right posterior rib fractures. Narrative 09/15/2024 8:37 AM EDUCATION ADVISER Exam: ??CT CHEST ABDOMEN PELVIS W CONT Reason For Exam: ??Head/neck cancer, lung met screen. ?? Diagnosis: ??Hypovolemic shock (CMS/HCC); Hypotension, unspecified hypotension type; Hx of laryngeal cancer; Acute renal failure superimposed on chronic kidney disease, unspecified acute renal failure type, unspecified CKD stage. Date/Time of Exam: ??09/14/2024, 5:03 PM. Comparison: ??None. Technique: ??CT of the chest, abdomen, and pelvis was performed following the administration of intravenous contrast. Sagittal and coronal reconstructions were created. Contrast: ??Isovue-300, 100 mL intravenous FINDINGS: ?? Chest: ??A tracheostomy tube is present. The heart size is enlarged. The coronary arteries contain a small amount of calcified plaque. A right paratracheal lymph node measures 1.2 cm across its short axis. A few subcentimeter mediastinal and bilateral hilar lymph nodes are present. Small areas of atelectasis or consolidation are located in the right middle lobe, right lower lobe, lingula of the left upper lobe, and left lower lobe. Interlobular septal thickening is present within both lungs. No pulmonary mass is identified. There is no pleural effusion. The thoracic aorta is normal in caliber. There are [id number] degenerative changes of the thoracic spine and lower cervical spine. Well-corticated mild deformities are located in the right 12th, 11th, 10th, and ninth ribs. Abdomen and pelvis: ??The liver is borderline enlarged and normal in contour. The gallbladder is contracted. The spleen measures 10.1 cm in diameter. The pancreas is unremarkable. No adrenal nodules identified. The bilateral kidneys are lobular in contour. Both kidneys have extrarenal pelvises. The bladder is mildly distended. The uterus and ovaries are not well visualized. A moderate amount of stool is present within the rectum. A small to moderate amount of stool and gas is seen throughout the colon. The colon has multiple diverticula with no surrounding fat stranding. The appendix is unremarkable. There is no significant bowel dilation. The bumper of a gastrostomy tube is located in the distal body of the stomach. The stomach is moderately distended with fluid and gas. There is a possible small hiatal hernia. No free intraperitoneal air or free fluid is seen. No enlarged mesenteric or retroperitoneal lymph nodes are seen. The abdominal aorta is normal in caliber and contains a btmxu-bu-pffmsrbs amount of atherosclerotic plaque. The arteries the bilateral pelvis contain a small amount of atherosclerotic plaque. There are three, small to moderate-sized fat-containing periumbilical hernias. Mild degenerative changes of the lumbar spine are present. A small amount of subcutaneous edema is located in the bilateral abdominal wall and proximal thighs. Procedure Note Cedrick Joshi MD - 09/15/2024 Exam: CT CHEST ABDOMEN PELVIS W CONT Reason For Exam: Head/neck cancer, lung met screen. Diagnosis: Hypovolemic shock (CMS/HCC); Hypotension, unspecified hypotension type; Hx of laryngeal cancer; Acute renal failure superimposed on chronic kidney disease, unspecified acute renal failure type, unspecified CKD stage. Date/Time of Exam: 09/14/2024, 5:03 PM. Comparison: None. Technique: CT of the chest, abdomen, and pelvis was performed following the administration of intravenous contrast. Sagittal and coronal reconstructions were created. Contrast: Isovue-300, 100 mL intravenous FINDINGS: Chest: A tracheostomy tube is present. The heart size is enlarged. The coronary arteries contain a small amount of calcified plaque. A right paratracheal lymph node measures 1.2 cm across its short axis. A few subcentimeter mediastinal and bilateral hilar lymph nodes are present. Small areas of atelectasis or consolidation are located in the right middle lobe, right lower lobe, lingula of the left upper lobe, and left lower lobe. Interlobular septal thickening is present within both lungs. No pulmonary mass is identified. There is no pleural effusion. The thoracic aorta is normal in caliber. There are ahev-kz-jlvzjlas degenerative changes of the thoracic spine and lower cervical spine. Well-corticated mild deformities are located in the right 12th, 11th, 10th, and ninth ribs. Abdomen and pelvis: The liver is borderline enlarged and normal in contour. The gallbladder is contracted. The spleen measures 10.1 cm in diameter. The pancreas is unremarkable. No adrenal nodules identified. The bilateral kidneys are lobular in contour. Both kidneys have extrarenal pelvises. The bladder is mildly distended. The uterus and ovaries are not well visualized. A moderate amount of stool is present within the rectum. A small to moderate amount of stool and gas is seen throughout the colon. The colon has multiple diverticula with no surrounding fat stranding. The appendix is unremarkable. There is no significant bowel dilation. The bumper of a gastrostomy tube is located in the distal body of the stomach. The stomach is moderately distended with fluid and gas. There is a possible small hiatal hernia. No free intraperitoneal air or free fluid is seen. No enlarged mesenteric or retroperitoneal lymph nodes are seen. The abdominal aorta is normal in caliber and contains a oqref-gl-bstcgirc amount of atherosclerotic plaque. The arteries the bilateral pelvis contain a small amount of atherosclerotic plaque. There are three, small to moderate-sized fat-containing periumbilical hernias. Mild degenerative changes of the lumbar spine are present. A small amount of subcutaneous edema is located in the bilateral abdominal wall and proximal thighs. IMPRESSION: 1. Small areas of atelectasis or consolidation are scattered throughout both lungs. Multifocal pneumonia or aspiration are possibilities. 2. Probable interstitial pulmonary edema and bilateral lungs. 3. Cardiomegaly. 4. Coronary artery atherosclerotic calcifications. 5. Mild mediastinal lymphadenopathy. 6. Possible small hiatal hernia. 7. Three small to moderate-sized fat-containing periumbilical hernias are present. 8. Multiple old, healed right posterior rib fractures. Guerda Willams [facility] CT ORDERABLES Final Result * (ABNORMAL) PNEUMONIA PATHOGEN PCR PANEL (09/14/2024 11:29 AM EDUCATION ADVISER) Coronavirus by PCR INDETERM INATE(A) Not Detected 09/14/2024 1:32 PM EDUCATION ADVISER [facility] Comment:Unable to determine presence or absence of Coronavirus (strains 229E, OC43, HKU1, NL63) DNA. This assay does NOT test for CoVID-19. If clinical suspicion is high, recommend ordering a respiratory viral panel and submission of a nasopharyngeal swab for testing. Respiratory syncytial virus by PCR DETECTED (A) Not Detected 09/14/2024 1:32 PM EDUCATION ADVISER [facility] Sputum SPUTUM SPECIMEN OBTAINED BY ASPIRATION / Unknown Collection / Unknown 09/14/2024 11:29 AM EDUCATION ADVISER 09/14/2024 7:39 AM EDUCATION ADVISER Narrative [facility] - 09/14/2024 1:32 PM EDUCATION ADVISER NOTE: Per the hourly caregiver, this current lot of reagent may be insensitive for the full detection of adenoviruses. ??If adenovirus is within the differential diagnosis, the specimen may be submitted to a reference laboratory for further testing. ??If desired, order [id number] Lab Test, stating Adenovirus by PCR testing in the ordering comment and notify the Microbiology lab at [phone]. Positive Respiratory panel called to Michelle Mendoza RN from by GERMAINE HERNANDEZ on 09/14/2024 at 1:31 PM with verbal readback. ?? A negative result does not exclude the possibility of infection. ??A semi-quantitative (copies/mL) result is provided for bacteria. ??This panel does not distinguish between nucleic acid from live or bacteria or virus. ??Culture is needed for recovery of bacterial isolates and antimicrobial susceptibility testing. The Film Array Pneumonia Pathogen PCR Panel is a multiplexed nucleic acid detection test for 33 targets of bacteria, viruses, and resistance markers in respiratory specimens that cause pneumonia. Bacteria: Acinetobacter calcoaceticus-baumannii complex Enterobacter cloacae complex Escherichia coli Haemophilus influenzae Klebsiella aerogenes Klebsiella oxytoca Klebsiella pneumoniae group Moraxella catarrhalis Proteus spp. Pseudomonas aeruginosa Serratia marcescens Staphylococcus aureus Streptococcus agalactiae Streptococcus pneumoniae Streptococcus pyogenes Atypical Bacteria: Chlamydia pneumoniae Legionella pneumophila Mycoplasma pneumoniae Viruses: Adenovirus Coronavirus (229E, OC43, HKU1, NL63) Human Metapneumovirus Human Rhinovirus/Enterovirus Influenza A Influenza B Parainfluenza Virus Respiratory Syncytial Virus Antimicrobial Resistance Genes: CTX-M IMP KPC NDM OXA-48-like VIM mecA/C and MREJ Kelin Bunn NP MICROBIOLOGY - GENERAL ORDERABL ES Final Result Performing Organization Address City/[facility] Co de Phone Number [facility] CLIA # [id number] [address] [address] * SPUTUM CULTURE WITH GRAM STAIN (09/14/2024 11:29 AM EDUCATION ADVISER) Only the most recent of2 resultswithin the time period is included. CULTURE No pathogens isolated. Normal respiratory parish present. 09/16/2024 9:09 AM EDUCATION ADVISER [facility] GRAM STAIN Smear contains </=10 squamous epithelial cells per low power field 09/16/2024 9:09 AM EDUCATION ADVISER [facility] GRAM STAIN <25 PMN WBC/LPF 9:09 AM EDUCATION ADVISER [facility] GRAM STAIN Mixed parish with no predominate morphology 09/16/2024 9:09 AM EDUCATION ADVISER [facility] Sputum SPUTUM SPECIMEN OBTAINED BY ASPIRATION / Unknown Collection / Unknown 09/14/2024 11:29 AM EDUCATION ADVISER 09/14/2024 11:59 AM EDUCATION ADVISER Savannah Garcia MD MICROBIOLOGY - GENERAL ORDERABLE S Final Result Performing Organization Address [facility]/ZIP Co de Phone Number [facility] CLIA # [id number] [address] [address] * VANCOMYCIN LEVEL RANDOM (09/14/2024 7:11 AM EDUCATION ADVISER) VANCOMYCIN, RANDOM 16.7 5.0 - 50.0 ug/mL 09/14/2024 7:56 AM [facility] Blood Venipuncture / Unknown 09/14/2024 7:11 AM EDUCATION ADVISER 09/14/2024 7:14 AM EDUCATION ADVISER Narrative [facility] - 09/14/2024 7:56 AM EDUCATION ADVISER Vancomycin Therapeutic Ranges: Vancomycin Trough: 10 - 20 mcg/mL Vancomycin Peak: ?? 25 - 50 mcg/mL Kelin Bunn NP CHEMISTRY ORDERABLES Final Resu lt Performing Organization Address [facility] Co de Phone Number [facility] CLIA # [id number] [address] [address] * (ABNORMAL) TROPONIN 6 HR, 5TH GEN (09/14/2024 12:04 AM EDUCATION ADVISER) [facility] TROPONIN T, 6 HR 5TH GEN 21(H) <11 ng/L 09/14/2024 12:40 AM EDUCATION ADVISER [facility] DELTA 6HR TROPONIN T 0 See Interp. 09/14/2024 12:40 AM [facility] Blood Venipuncture / Unknown 09/14/2024 12:04 AM EDUCATION ADVISER 09/14/2024 12:09 AM EDUCATION ADVISER Narrative [facility] - 09/14/2024 12:40 AM EDUCATION ADVISER Troponin elevated. Delta indeterminate. Delay in collection of timed specimen beyond recommended collection interval. Results must be interpreted in clinical context. Humberto Phillip MD CHEMISTRY ORDERABLES Final Re sult Performing Organization Address [facility]/ZIP Co de Phone Number [facility] CLIA # [id number] [address] [id number] * LACTIC ACID (09/14/2024 12:04 AM EDUCATION ADVISER) Only the most recent of2 resultswithin the time period is included. [facility] LACTIC ACID 0.6 <=2.0 mmol/L 09/14/2024 12:31 AM EDUCATION ADVISER [facility] Blood Venipuncture / Unknown 09/14/2024 12:04 AM EDUCATION ADVISER 09/14/2024 12:08 AM EDUCATION ADVISER Milan Cook MD CHEMISTRY ORDERABLES Final Resu lt Performing Organization Address [facility]/ZIP Co de Phone Number [facility] [id number] [address] [facility] [place] [address] * RESPIRATORY PATHOGEN PCR PANEL (09/13/2024 9:32 PM EDUCATION ADVISER) [facility] Respiratory Pathogen PCR Panel NOT DETECTED No respiratory pathogen nucleic acids detected. 09/13/2024 10:56 PM EDUCATION ADVISER [facility] COVID-19 PCR NOT DETECTED Not Detected 09/13/2024 10:56 PM EDUCATION ADVISER [facility] Upper Respiratory ENTIRE NASOPHARYNX / Unknown Collection / Unknown 09/13/2024 9:32 PM EDUCATION ADVISER 09/13/2024 9:38 PM EDUCATION ADVISER Narrative [facility] - 09/13/2024 10:56 PM EDUCATION ADVISER The Film Array Respiratory Panel (RP2.1) is a multiplex nucleic acid detection test for 22 targets. Viruses: Adenovirus Coronavirus HKU1, NL63, 229E, and OC43 COVID-19/Severe Acute Respiratory Syndrome Coronavirus 2 Influenza A with the following subtypes: H1, H1-2009, and H3 Influenza B Human Metapneumovirus Parainfluenza virus 1, 2, 3, and 4 Respiratory Syncytial virus (RSV) Rhinovirus/Enterovirus (cannot differentiate due to genetic similarities) Bacteria: Bordetella pertussis Bordetella parapertussis Chlamydophila pneumoniae Mycoplasma pneumoniae us Kelin Bunn NP MICROBIOLOGY - GENERAL ORDERABL ES Final Result Performing Organization Address City/[facility]/ZIP Co de Phone Number [facility] [id number] [address] [facility] [place] [address] * (ABNORMAL) TROPONIN 2 HR, 5TH GEN (09/13/2024 7:43 PM EDUCATION ADVISER) TROPONIN T, 2 HR 5TH GEN 19(H) <=10 ng/L 09/13/2024 8:24 PM EDUCATION ADVISER [facility] DELTA 2HR TROPONIN T -2 See Interp. 09/13/2024 8:24 PM EDUCATION ADVISER [facility] Blood Venipuncture / Unknown 09/13/2024 7:43 PM EDUCATION ADVISER 09/13/2024 7:48 PM EDUCATION ADVISER Narrative [facility] - 09/13/2024 8:24 PM EDUCATION ADVISER Troponin elevated. Delta not changing. Humberto Phillip MD CHEMISTRY ORDERABLES Final Re sult [facility] CLIA # [id number] [address] [address] [place] [address] * EXTRA TUBE (URINE CLEMENTS) (09/13/2024 5:56 PM EDUCATION ADVISER) Urine URINE SPECIMEN OBTAINED BY CLEAN CATCH PROCEDURE / Unknown Collection / Unknown 09/13/2024 5:56 PM EDUCATION ADVISER 09/13/2024 6:16 PM EDUCATION ADVISER Humberto Phillip MD URINE ORDERABLES Final Result [facility] CLIA # [id number] [address] [place] [address] * (ABNORMAL) URINALYSIS WITH REFLEX MICROSCOPIC (09/13/2024 5:56 PM EDUCATION ADVISER) COLOR UA Yellow Pale to Dark Yellow 09/13/2024 6:25 PM EDUCATION ADVISER [facility] CLARITY UA Cloudy(A) Clear 09/13/2024 6:25 PM [facility] SPECIFIC GRAVITY UA 1.014 1.003 - 1.035 09/13/2024 6:25 PM [facility] PH UA 5.5 5.0 - 8.0 09/13/2024 6:25 PM [facility] LEUKOCYTE ESTERASE UA 2+(A) Negative 09/13/2024 6:25 PM [facility] NITRITE UA Negative Negative 09/13/2024 6:25 PM [facility] PROTEIN UA Negative Negative 09/13/2024 6:25 PM [facility] GLUCOSE UA Negative Negative 09/13/2024 6:25 PM [facility] KETONES UA Negative Negative 09/13/2024 6:25 PM [facility] UROBILINOGEN UA <2.0 <2.0 mg/dL 6:25 PM [facility] BILIRUBIN UA Negative Negative 09/13/2024 6:25 PM [facility] BLOOD UA Negative Negative 09/13/2024 6:25 PM [facility] WBC UA 0-2 0 - 2 /hpf 09/13/2024 6:25 PM [facility] RBC UA 0-2 0 - 2 /hpf 09/13/2024 6:25 PM [facility] BACTERIA UA Negative Negative /hpf 09/13/2024 6:25 PM [facility] EPITHELIAL CELLS, URINE 0-5 0 - 5 /hpf 09/13/2024 6:25 PM [facility] HYALINE CAST 6-10(A) None Seen, 0-2 /lpf 09/13/2024 6:25 PM [facility] Urine URINE SPECIMEN OBTAINED BY CLEAN CATCH PROCEDURE / Unknown Collection / Unknown 09/13/2024 5:56 PM EDUCATION ADVISER 09/13/2024 6:16 PM EDUCATION ADVISER us Humberto Phillip MD URINE ORDERABLES Final Result [facility] CLIA # [id number] [address] [place] [address] * XR CHEST PA OR AP 1 VW (09/13/2024 5:12 PM EDUCATION ADVISER) Anatomical Region Laterality Modality Chest Computed Radiogr aphy 09/13/2024 5:12 PM EDUCATION ADVISER Impressions 09/13/2024 5:25 PM EDUCATION ADVISER IMPRESSION: Please see below. EXAM: XR CHEST PA OR AP 1 VW DATE/TIME OF EXAM: 09/13/2024 5:12 PM REASON FOR STUDY: Shortness of Breath SOB DIAGNOSIS: See Reason for Exam COMPARISON: April 20, 2024 TECHNIQUE: A frontal radiograph of the chest was obtained. ?? FINDINGS: COPD/emphysema. Mildly elevated right hemidiaphragm, unchanged. Bibasilar scarring or atelectasis. No lobar consolidation. No large pleural effusion. No pneumothorax. ?? And limits normal heart size. Mild vascular congestion. No acute bony abnormality identified. ??Old right rib fractures. Narrative Procedure Note Joslyn Barron MD - 09/13/2024 IMPRESSION: Please see below. EXAM: XR CHEST PA OR AP 1 VW DATE/TIME OF EXAM: 09/13/2024 5:12 PM REASON FOR STUDY: Shortness of Breath SOB DIAGNOSIS: See Reason for Exam COMPARISON: April 20, 2024 TECHNIQUE: A frontal radiograph of the chest was obtained. FINDINGS: COPD/emphysema. Mildly elevated right hemidiaphragm, unchanged. Bibasilar scarring or atelectasis. No lobar consolidation. No large pleural effusion. No pneumothorax. And limits normal heart size. Mild vascular congestion. No acute bony abnormality identified. Old right rib fractures. Humberto Phillip MD DIAGNOSTIC IMAGING ORDERABLES Final Result * (ABNORMAL) TROPONIN BASELINE, 5TH GEN (09/13/2024 4:48 PM EDUCATION ADVISER) TROPONIN T, BASELINE 5TH GEN 21(H) <=10 ng/L 09/13/2024 5:59 PM EDUCATION ADVISER [facility] Blood Venipuncture / Unknown 09/13/2024 4:48 PM EDUCATION ADVISER 09/13/2024 5:00 PM EDUCATION ADVISER Narrative [facility] - 09/13/2024 5:59 PM EDUCATION ADVISER Troponin elevated. Humberto Phillip MD CHEMISTRY ORDERABLES Final Re sult Performing Organization Address [facility] Co de Phone Number [facility] CLIA # [id number] [address] [place] [address] * BLOOD CULTURE (09/13/2024 4:48 PM EDUCATION ADVISER) Only the most recent of2 resultswithin the time period is included. BLOOD CULTURE No growth 09/18/2024 6:41 PM EDUCATION ADVISER [facility] Blood (Peripheral) Venipuncture / Unknown 09/13/2024 4:48 PM EDUCATION ADVISER 09/13/2024 4:59 PM EDUCATION ADVISER Humberto Phillip MD MICROBIOLOGY - GENERAL ORDERA BLES Final Result Performing Organization Address [facility] Co de Phone Number [facility] CLIA # [id number] [address] [place] [address] * Critical Care (09/13/2024 4:22 PM EDUCATION ADVISER) Narrative Humberto Phillip MD - 09/13/2024 4:22 PM EDUCATION ADVISER Humberto Phillip MD ? 09/13/2024 ??7:34 PM Critical Care Performed by: Humberto Phillip MD Authorized by: Humberto Phillip MD ?? Critical care provider statement: ??Critical care time (minutes): ??35 ??Critical care time was exclusive of: ??Separately billable procedures and treating other patients ??Critical care was necessary to treat or prevent imminent or life-threatening deterioration of the following conditions: ??Shock and dehydration ??Critical care was time spent personally by me on the following activities: ??Development of treatment plan with patient or surrogate, blood draw for specimens, discussions with consultants, discussions with primary provider, examination of patient, obtaining history from patient or surrogate, ordering and performing treatments and interventions, ordering and review of laboratory studies, ordering and review of radiographic studies, pulse oximetry, re-evaluation of patient's condition and review of old charts ??I assumed direction of critical care for this patient from another provider in my specialty: no ?Care discussed with: admitting provider ?? us Humberto Phillip MD PROCEDURE/MINOR SURGICAL ORDHay MCCAIN Final Result * PATHOLOGY (07/31/2024 1:27 PM EDUCATION ADVISER) CASE REPORT Surgical Pathology Report ? Case: [id number] ? Authorizing Provider: ??Karla Goldberg MD ? Collected: ? 07/31/2024 01:27 PM ? Ordering Location: ? [facility] ?? Received: ?07/31/2024 01:27 PM ? Services [facility] [place] ? Pathologist: ? Raghu Lopes MD ? Specimen: ?Outside Slide Review ? 4 9:27 AM [facility] FINAL DIAGNOSIS Outside slide review ([id number]; [facility]; collected 05/12/2024) A. 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 Received are two glass slides along with corresponding surgical pathology report on Ventura Feliciano, date of 1975. The materials originate from [employer] in [place], [place] and are labelled with accession number [id number]. The slides are derived from a left glottic mass biopsy collected 05/12/24. All materials are returned to the referring institution. Aliza Lubin [id number] 4 9:27 AM [facility] OPERATIVE PROCEDURE Consult Referred Slides - Latha 4 9:27 AM [facility] CLINICAL INFORMATION Outside slides received for consultation/correlati on requested by Dr. Goldberg. 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 Inherent to this system is the possibility of errors in syntax, grammar, punctuation, or other areas that could impact interpretation. If there are interpretive questions about the report, please contact the performing pathologist. Unless gross only is specified in the diagnosis, the microscopic examination substantiates the above cited diagnosis. The performance characteristics of all immunohistochemical stains cited in this report (if any) were determined by the Diagnostic [facility]ohist[facility] of [facility] in compliance with CLIA'88 regulations. Some of these tests rely on the use of analyte specific reagents and are subject to specific labeling requirements by the FDA. All controls show appropriate reactivity. This testing was developed by the [facility]. It has not been cleared or approved by the FDA. The FDA has determined that such clearance or approval is not necessary. 9:27 AM EDUCATION ADVISER [facility] Tissue 07/31/2024 1:27 PM EDUCATION ADVISER 07/31/2024 1:27 PM EDUCATION ADVISER us Karla Goldberg MD PATHOLOGY/CYTOLOGY ORDERABL ES Final Result Performing Organization Address [facility] Co de Phone Number [facility] CLIA # [id number] [address] [place] [address] * HEMOGLOBIN A1C (01/09/2024 4:16 PM CDT) HEMOGLOBIN A1C 5.5 <=5.6 % 01/09/2024 5:13 PM CDT [facility] EST. AVG GLUCOSE, A1C 111 mg/dL 01/09/2024 5:13 PM CDT [facility] Blood Venipuncture / Unknown 01/09/2024 4:16 PM CDT 01/09/2024 4:20 PM CDT Narrative [facility] - 01/09/2024 5:13 PM CDT HGB A1C INTERPRETATION NORMAL: ? <5.7% PRE-DIABETES: 5.7 - 6.4% DIABETES: ? 6.5% OR GREATER us Liam Francisco MD CHEMISTRY ORDERABLES Final Resu lt Performing Organization Address City/[facility]/ZIP Co de Phone Number [facility] CLIA # [id number] [address] [place] [address] from Last 3 Months or Most Recently Relevant to Health Maintenance Insurance MEDICAID [address] [place] [id number] RX [employer]CR[employer]ING Medicaid Advance Directives For more information, please contact: [phone] * Full Code (Latest Code Status on File) Date Activated Date Inactivated Comments 09/14/2024 12:03 PM 09/28/2024 7:37 PM * Default Full Code - Needs Discussion Date Activated Date Inactivated Comments 09/13/2024 8:56 PM 09/14/2024 12:03 PM * Full Code Date Activated Date Inactivated Comments 04/20/2024 11:37 PM 04/22/2024 6:20 PM
--- OUTSIDE RECORDS SUMMARY | 2024-10-14 10:34 | XMS_ITS | Encounter Summary ---
Author Organization [facility] Address [address] [place] [address] Care Team Providers Care Head Holder Name Role Phone Unavailable Primary Care Provider Unavailabl e Reason for Visit * Reason Comments Follow Up Chemotherapy Encounter Details Date Type Department Care Team (Late st Contact Info) Description 10/13/2024 3:00 PM IMMUNOLOGIST Office Visit [facility] [place] [address] [facility] [facility] [address] [place] [address] Rashmi Dumont MD [address] [place] [address] Laryngeal squamous cell carcinoma (CMS/HCC) (Primary Dx) Social History Tobacco Use Types Packs/Day Years [...] on file Legal Sex Female 1:37 AM IMMUNOLOGIST Gender Identity Not on file Sexual Orientation Not on file documented as of this encounter Last Filed Vital Signs Vital Sign Reading Time Taken Comments Blood Pressure 122/74 10/13/2024 3:02 PM IMMUNOLOGIST Pulse 82 10/13/2024 3:02 PM IMMUNOLOGIST Temperature 35.9 ??C (96.7 ??F) 10/13/2024 3:02 PM CS T Respiratory Rate - - Oxygen Saturation 93% 10/13/2024 3:02 PM IMMUNOLOGIST Inhaled Oxygen Concentration - - Weight 80.2 kg (176 lb 12.8 oz) 10/13/2024 3:02 PM IMMUNOLOGIST Height 165.1 cm (5' 5 ) 10/13/2024 3:02 PM IMMUNOLOGIST Body Mass Index 29.42 10/13/2024 3:02 PM IMMUNOLOGIST documented in this encounter Progress Notes * Rashmi Dumont MD - 10/13/2024 3:03 PM CST HEMATOLOGY / ONCOLOGY OFFICE NOTE ALEXANDRA KENNEY RFC: Laryngeal squamous cell carcinoma Referring provider: Dr. Chris Flores MD, ENT Cancer Staging Laryngeal squamous cell carcinoma (CMS/HCC) Staging form: Larynx - Glottis, AJCC 8th Edition - Clinical: Stage SADIE (cT3, cN2, cM0) - Unsigned History of Present Illness: Yamileth Feliciano is a 49 y.o. female patient of Dr. Dumont Was previously evaluated for stridor, during a hospital admission, by otolaryngology and she underwent fiberoptic laryngoscopy which revealed left- sided vocal cord lesion with paraglottic invasion and left-sided paresis. There was a plan to proceed with a biopsy as outpatient, and in the interval she was admitted to outside hospital at [facility], as follows: Select hospital admission: Patient was hospitalized initially with ST segment elevation WI, respiratory distress, and marked dysphagia. She has undergone tracheostomy, PEG tube placement, cardiac catheterization with placement of CARMELO, and has also been considered for 2v CABG .She underwent trach, PEG, and DL/Biopsy with reports of SCC ,at [facility] Reviewed pathology from [facility], which has been scanned into media tab-collected 05/12/2024, reported on05/16/2024: Left glottic mass, biopsy: Well to moderately differentiated squamous cell carcinoma, focal ulceration with acute inflammation and granulation tissue formation also noted. A p16 immunohistochemical stain is negative Patient does not wish to proceed with surgery First visit She presents unaccompanied for today's visit. She is alert and oriented x 3. She reports mild pain at the site of tracheostomy, for which she is requesting pain medication. She has been using marijuana Gummies and Tylenol which does not seem to help. We discussed tramadol, and she is willing to proceed with this. Other than that she has no other symptoms or complaints. She has a PEG tube which she has not been using, she is able to eat orally. We discussed the PET scan results are pending. If there is no metastatic disease, we can treat her with concurrent chemoradiation with an intention to cure. Addition of chemotherapy to radiation improves overall survival, help stalemate micrometastases , also improves local control. Discussed side effects of hemotherapy- myelosuppression, rash, diarrhoea, nausea, vomiting, alepecia, hand foot syndrome, peripheral neuropathy, risk of infection, blood transfusions may be needed for anemia, bleeding from low platelets, any organ may be affected, risk of secondary malignancies including leukemia/ mds, risk of cardiac dysfunction, risk of If PET scan shows distant metastases-will have to reevaluate above plan PET scan 07/13/2024 IMPRESSION: Abnormal examination. 1. Hypermetabolic local cord mass in keeping with known squamous cell carcinoma 2. Shotty left cervical chain lymph node demonstrates activity above that of the mediastinal blood pool but below that of the background liver favoring reactivity. Attention on follow-up restaging imaging recommended. Otherwise no findings to suggest distant metastatic disease to the chest, abdomen, or pelvis. 3. Incidental findings as above ROS: 11 point ROS negative other than outlined above Wt Readings from Last 3 Encounters: 10/13/24 80.2 kg (176 lb 12.8 oz) 10/05/24 78.5 kg (173 lb) 09/28/24 85.9 kg (189 lb 6 oz) SH: She lives in [facility] which is about an hour [place] a half from [place]. She does not have good social support. Currently living with a friend called Parul. She does have her whom she was to for 12 years, but he is from her. She has 2 children who live in the area, but unable to help as they are busy in their own lives. She has smoked half a pack per day for about 30+ years. She was an alcoholic and quit about 12 to 14 years ago she states. She does use edible marijuana, no other aberrant drug use. She is unemployed. Not on disability. No prior personal history of cancer except for above laryngeal cancer Mother had some kind of female cancer, she is not sure what Past Medical/Surgical/Social/Family History: Past Medical History: Diagnosis Date Bipolar disorder (CMS/HCC) Coronary artery disease Laryngeal squamous cell carcinoma ([facility]/HCC) 07/13/2024 Migraine Schizophrenia ([facility]/HCC) STEMI (ST elevation myocardial infarction) ([facility]) Past Surgical History: Procedure Laterality Date HX SECTION x 2 HX CORONARY STENT PLACEMENT HX HEART CATHETERIZATION HX HYSTERECTOMY HX MULTIPLE TOOTH EXTRACTIONS N/A 09/17/2024 TEETH MULTIPLE EXTRACTION performed by Reinaldo Dsouza MD at [facility] MAIN OR HX SURGICAL OTHER mass removal from pelvic x 2 Social History Tobacco Use Smoking status: Every Day Current packs/day: 0.25 Types: Cigarettes Smokeless tobacco: Never Substance Use Topics Alcohol use: No FAMILY HX Mother had some kind of female cancer, she is not sure what Medications: Current Outpatient Medications Medication Sig Dispense Refill HYDROcodone-acetaminophen (NORCO) 7.5-325 mg Tablet 1 tab via gtube as directed every 6 hours prn pain 60 Tablet 0 clopidogreL (PLAVIX) 75 mg Tablet 1 Tablet (75 mg) by G Tube route daily. 30 Tablet 0 ondansetron (ZOFRAN ODT) 8 mg Tablet, Rapid Dissolve Dissolve 1 tablet on top of tongue then swallow with saliva every 8 hours as needed for nausea or vomiting. Can start Day 3 of chemo. 30 Tablet 1 PARoxetine HCl (PAXIL) 20 mg tablet 1 Tablet (20 mg) by G Tube route daily. 30 Tablet 0 OLANZapine (ZyPREXA) 5 mg tablet Take 1 tab po evening PRN CINV. Can start Day 1 of chemo. 30 Tablet 1 dexAMETHasone (DECADRON) 4 mg tablet 1 tablet PO BID with meals Day 2, 3 of chemo. Repeat each chemo. 28 Tablet 0 ALPRAZolam (Xanax) 0.5 mg tablet Take 1 Tablet (0.5 mg) by mouth 1 time daily as needed for Anxiety(for prior to RT for clausterphobia). 20 Tablet 0 naloxone (NARCAN) 4 mg/spray [place], Non-Aerosol EMERGENCY USE ONLY: Administer 1 spray (4 mg) in one nostril one time. May repeat in alternating nostrils every 2-3 min until responsive or EMS arrives. 2 Each 3 trach supplies Surgery Date: 09/17/2025 Length of Need: 99 months Charlie resendez, Size 6 FR Cuffed: no, Fenestrated: no,1 per 3 mo, Inner cannula yes 1 per day, trach care kits 1 per day 1 Each 0 traMADoL (ULTRAM) 50 mg tablet Take 1 Tablet (50 mg) by mouth every 8 hours as needed for Pain. 21 Tablet 0 atorvastatin (LIPITOR) 80 mg tablet 80 mg by G Tube route daily at bedtime. bisacodyL (DULCOLAX) 10 mg Suppository Insert 10 mg by rectum 1 time daily as needed. budesonide (PULMICORT RESPULE) 0.5 mg/2 mL Suspension for Nebulization Take 0.5 mg by inhalation 2 times daily. aspirin (RISA CHEWABLE) 81 mg Tablet, Chewable 81 mg by G Tube route daily. nitroglycerin (NITROSTAT) 0.4 mg Tablet, Sublingual Place 0.4 mg under tongue every 5 minutes as needed. [] midodrine (PROAMATINE) 5 mg tablet Take 1 Tablet (5 mg) by mouth 2 times daily for 14 days. 28 Tablet 0 No current facility-administered medications for this visit. Facility-Administered Medications Ordered in Other Visits Medication Dose Route Frequency Provider Last Rate Last Admin [COMPLETED] ALPRAZolam (XANAX) tablet 0.5 mg 0.5 mg Oral ONE time only Grady Michelle MD 0.5 mg at 10/13/24 1433 Allergies: Allergies Allergen Reactions Hydromorphone Dizziness and Headache Physical Examination: BP 122/74 Pulse 82 Temp (!) 96.7 ??F (35.9 ??C) (Temporal) Ht 5' 5 (1.651 m) Wt 80.2 kg (176 lb 12.8 oz) SpO2 93% BMI 29.42 kg/m?? General: Alert, NAD, ECOG 1, ambulates without assistance HEENT: sclerae anicteric, conjunctivae pink, s/p dental extraction, gums healing, no oral lesions noted, mucous membranes moist Neck: + trach tube intact, caps to talk, no adenopathy Lungs: respirations unlabored at rest, lungs with mild rhonchi, no rales or wheezes Heart: regular rhythm with rate ~ 110, normal S1, S2, no murmur Abdomen: soft, non-tender, + bowel sounds, no organomegaly, + PEG tube clamped, site clear Extremities: no edema, no tenderness to calves Musculoskeletal: no spinal tenderness to palpation Skin: no suspicious lesions or rash noted to observed areas Neuro: A/O, CN II-XII grossly intact, no focal weakness Psyche: anxious mood Data Review: CBC: Lab Results Component Value Date WBC 10.2 10/05/2024 HGB 13.5 10/05/2024 HCT 40.3 10/05/2024 PLT 313 10/05/2024 MCV 89.8 10/05/2024 BMP: Lab Results Component Value Date NA 136 10/05/2024 K 3.2 (L) 10/05/2024 CL 104 10/05/2024 CO2 18 (L) 10/05/2024 CA 9.6 10/05/2024 BUN 10 10/05/2024 CREAT 1.14 (H) 10/05/2024 GLUCOSE 129 (H) 10/05/2024 ANIONGAP 14 10/05/2024 LFT: Lab Results Component Value Date ALT 17 10/05/2024 AST 24 10/05/2024 ALKPHOS 70 10/05/2024 Coagulation: No results found for: PT , INR , APTT Patient Active Problem List Diagnosis Code Hypertensive emergency I16.1 RADHA (acute kidney injury) N17.9 Elevated brain natriuretic peptide (BNP) level R79.89 Bipolar disorder, unspecified ([facility]) F31.9 Methamphetamine abuse ([facility]) F15.10 Essential hypertension I10 CAD (coronary atherosclerotic disease) I25.10 Acute on chronic diastolic heart failure ([facility]) I50.33 Stridor R06.1 COPD (chronic obstructive pulmonary disease) ([facility]) J44.9 CKD (chronic kidney disease) N18.9 Acute respiratory distress R06.03 Vocal cord paralysis J38.00 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 Community acquired pneumonia of right lower lobe of lung J18.9 Laryngeal squamous cell carcinoma ([facility]) C32.9 Hx of laryngeal cancer Z85.21 Acute renal failure superimposed on chronic kidney disease N17.9, N18.9 Pneumonia due to respiratory syncytial virus (RSV) J12.1 Multifocal pneumonia J18.9 Acute respiratory failure with hypoxia (CMS/HCC) J96.01 Hypotension I95.9 TODAY: Patient is here with her significant other. She states she is doing very well. She is in a wheelchair, because she gets tired when she walks long distances, but otherwise she is ambulatory. She is zi soft diet CBC CMP pending Her partner states that she is vaping at home. Advised to quit She has not yet met with the dietitian She overall looks quite well She continues on radiation as planned. Several glitches with her transportation and communication with her. Extensive discussions between social service director and nurse navigators today. Assessment/ Plan 49 y.o. female with laryngeal squamous cell carcinoma involving the left vocal cord, initially presented with stridor which progressed to respiratory distress/airway obstruction, requiring her to be admitted to [facility] in [place], where she underwent biopsy of left true vocal cord mass, and also had to be placed on a vent, and subsequently transitioned to tracheostomy/PEG tube. Plan: # Laryngeal squamous cell carcinoma Patient has declined surgery 07/13/24- PET CT IMPRESSION: Abnormal examination. 1. Hypermetabolic local cord mass in keeping with known squamous cell carcinoma 2. Shotty left cervical chain lymph node demonstrates activity above that of the mediastinal blood pool but below that of the background liver favoring reactivity. Attention on follow-up restaging imaging recommended. Otherwise no findings to suggest distant metastatic disease to the chest, abdomen, or pelvis. 3. Incidental findings as above Plan for chemoradiation with weekly Cisplatin Seen by Rad Onc, Dr. Goldberg S/P RT sim inpatient on 09/26/24 S/P oral surgery/dental extractions 09/17/24 Start concurrent chemoradiation on 10/05/2024 with cycle 1 cisplatin Here for cycle 2 cisplatin-this cycle was delayed due to snow/weather [facility] working on getting Medicaid transportation #Trach tube in place D/W nurse navigator regarding obtaining inner cannulas for her trach and humidification #Nutrition, PEG tube inplace Still taking PO, having odynophagia Discussed soft diet, use of PEG tube Currently only flushing PEG To meet with mesh cutter and bulk picker ensure today Wt Readings from Last 3 Encounters: 10/13/24 80.2 kg (176 lb 12.8 oz) 10/05/24 78.5 kg (173 lb) 09/28/24 85.9 kg (189 lb 6 oz) #CKD3a Renal insufficiency documented from ~ May 2024 Baseline creat and GFR ~ 1.2 and 55 Around baseline today Monitor closely with Cisplatin #Cancer related pain, anxiety as outlined above Out of paxil, refill x 1 mo sent to her pharmacy Refer to PC On Marcellus and Xanax Patient to call to get her appointment scheduled and palliative care #HTN Hypotensive, requiring pressors, during recent hospitalization. She was discharged home with midodrine x 2 weeks. Will stop sooner, if needed Monitor #CAD s/p stent 04/2024 done at [place] Patient is out of her Plavix. Refill x 1 mo, further refills per PCP or cardiology (appears lost follow-up with cards) On statin #Schizophrenia-not on treatment, follows with PCP. Patient reports she is not taking Risperdal Return to [facility] on 10/16/2024, at 11 AM, linked to cisplatin, DINING SERVICES DIRECTOR to review labs from today Return to clinic On 10/23/2024 at 11 AM, CBC CMP, linked to cisplatin, DINING SERVICES DIRECTOR visit TOBACCO COUNSELING She was counseled to discontinue tobacco/nicotine use. Time spent is 40 minutes regarding treatment and diagnosis and planned course of therapy. Complexity is high. All questions asked have been answered to the patients satisfaction. This document was created by [employer] software. Effort has been made to assure accuracy of this [employer]. Any obvious errors or omissions should be clarified with the author of the document. To do Arrange for dietitian to see patient at 11 AM on Wednesday, when she has in infusion center NOLOGIST documented in this encounter Plan of Treatment Upcoming Encounters Date Type Department Care Team (Late st Contact Info) Description 10/16/2024 11:00 AM IMMUNOLOGIST Appointment [facility] [address] [facility] [address] [place] [phone] Rashmi Dumont MD [address] [facility] [address] [place] [phone] [facility] Oncology, Infusion 8 10/16/2024 1:45 PM IMMUNOLOGIST Appointment [address] [phone] Karla Goldberg MD [address] [place] [phone] 10/17/2024 1:45 PM IMMUNOLOGIST Appointment [address] [phone] Karla Goldberg MD [address] [place] [phone] 10/18/2024 1:45 PM IMMUNOLOGIST Appointment [address] [phone] Karla Goldberg MD [address] [place] [phone] 10/19/2024 1:45 PM IMMUNOLOGIST Appointment [address] [phone] Karla Goldberg MD [address] [place] [phone] 10/20/2024 1:45 PM IMMUNOLOGIST Appointment [address] [phone] Karla Goldberg MD [address] [place] [phone] 10/23/2024 1:45 PM IMMUNOLOGIST Appointment [address] [phone] Karla Goldberg MD [address] [place] [phone] 10/24/2024 11:30 AM IMMUNOLOGIST Office Visit [facility] [address] [place] [address] Chris Flores MD [address] [place] [address] 10/24/2024 1:45 PM IMMUNOLOGIST Appointment [address] [phone] Karla Goldberg MD [address] [place] [phone] 10/25/2024 1:45 PM IMMUNOLOGIST Appointment [address] [phone] Karla Goldberg MD [address] [place] [phone] 10/26/2024 1:45 PM IMMUNOLOGIST Appointment [address] [phone] Karla Goldberg MD [address] [place] [phone] 10/27/2024 1:45 PM IMMUNOLOGIST Appointment [address] [phone] Karla Goldberg MD [address] [place] [phone] 10/30/2024 1:45 PM CDT Appointment [address] [phone] Karla Goldberg MD [address] [place] [phone] 10/31/2024 1:45 PM CDT Appointment [address] [phone] Karla Goldberg MD [address] [place] [phone] 11/01/2024 1:45 PM CDT Appointment [address] [phone] Karla Goldberg MD [address] [place] [phone] 11/02/2024 1:45 PM CDT Appointment [address] [phone] Karla Goldberg MD [address] [place] [phone] 11/03/2024 1:45 PM CDT Appointment [address] [phone] Karla Goldberg MD [address] [place] [phone] 11/06/2024 1:45 PM CDT Appointment [address] [place] [address] Karla Goldberg MD [address] [place] [phone] 11/07/2024 1:45 PM CDT Appointment [address] [phone] Karla Goldberg MD [address] [place] [phone] 11/08/2024 1:45 PM CDT Appointment [address] [phone] Karla Goldberg MD [address] [place] [phone] 11/09/2024 1:45 PM CDT Appointment [address] [phone] Karla Goldberg MD [address] [place] [phone] 11/10/2024 1:45 PM CDT Appointment [address] [phone] Karla Goldberg MD [address] [place] [phone] 11/13/2024 1:45 PM CDT Appointment [address] [phone] Karla Goldberg MD [address] [place] [phone] 11/14/2024 1:45 PM CDT Appointment [address] [phone] Karla Goldberg MD [address] [place] [phone] 11/15/2024 12:45 PM CDT Appointment [address] [phone] Karla Goldberg MD [address] [place] [phone] 11/16/2024 12:45 PM CDT Appointment [address] [phone] Karla Goldberg MD [address] [place] [phone] 11/17/2024 1:45 PM CDT Appointment [address] [phone] Karla Goldberg MD [address] [place] [phone] 11/20/2024 1:45 PM CDT Appointment [address] [phone] Karla Goldberg MD [address] [place] [phone] 11/21/2024 1:45 PM CDT Appointment [address] [phone] Karla Goldberg MD [address] [place] [phone] 11/22/2024 1:45 PM CDT Appointment [address] [phone] Karla Goldberg MD [address] [place] [phone] 11/23/2024 1:45 PM CDT Appointment [address] [phone] Karla Goldberg MD [address] [place] [phone] 11/24/2024 1:45 PM CDT Appointment [address] [phone] Karla Goldberg MD [address] [place] [phone] 11/27/2024 1:45 PM CDT Appointment [address] [phone] Karla Goldberg MD [address] [place] [phone] 11/28/2024 1:45 PM CDT Appointment [address] [phone] Karla Goldberg MD [address] [place] [phone] documented as of this encounter Visit Diagnoses Diagnosis 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 neoplasm of larynx, unspecified site documented in this encounter Additional Health Concerns Assessment Noted Time PHQ-9 Depression Total Score: 1 04/20/20 24 11:16 PM CDT documented as of this encounter
--- OUTSIDE RECORDS SUMMARY | 2024-10-14 10:34 | XMS_ITS | Encounter Summary ---
Author Organization [facility] Address [address] [place] [address] Care Team Providers Care Wind Turbine Mechanical Engineer Name Role Phone Unavailable Primary Care Provider Unavailabl e Encounter Details Date Type Department Care Team (Late st Contact Info) Description 10/05/2024 Chart Note [facility] [address] [facility] [place] [address] Dian Lea RN Social History Tobacco Use Types Packs/Day Years [...] on file Legal Sex Female 1:37 AM CAN VACUUM TESTER Gender Identity Not on file Sexual Orientation Not on file documented as of this encounter Progress Notes * Dian Lea RN - 10/05/2024 11:11 AM CST Met with pt and her for her first chemo treatment today to see how they are feeling and to ask if they have any questions or need anything. Completed the distress management screening tool to assist in determining any current needs. Patient stated that their stress level has been high. Overall pt reports feeling better since discharging from hospital. Pt reports pain is not well-controlled, and that she discussed this with provider this am. Pt has no new issues with sleep. Pt's appetite has been good, and they have been eating soft foods. Pt reports steady weight. Pt is already being followed by our oncology dietitian for nutritional support. Pt has no concerns about finances and medical costs at this time. Pt has some concerns about daily long-distance transportation at this time. They have discussed possibility of HH arrangements with our SW. Pt has no spiritual concerns at this time. Reviewed the resources available to them [facility] in [facility] and offered to put themin touch with anyone they might wish to speak with such as the precision structural metal fitter, psychiatric social worker supervisor, or carpenter/labor. Answered all questions and verified they still have my contact information in case of any future questions/concerns. Had pt fill out updated PHI form today since she has been wanting her added back onto it. Coordinating with ENT office to get more inner cannulas ordered for her Trache since she has run out. VACUUM TESTER documented in this encounter Plan of Treatment Upcoming Encounters Date Type Department Care Team (Late st Contact Info) Description 10/16/2024 11:00 AM CAN VACUUM TESTER Appointment [facility] Oncology [facility] [address] [facility] [address] [place] [address] Rashmi Dumont MD [address] [facility] [address] [place] [address] [facility] Oncology, Infusion 8 10/16/2024 1:45 PM CAN VACUUM TESTER Appointment [facility] Radiation Oncology [facility] [address] [facility] [address] [place] [address] Karla Goldberg MD [address] [place] [address] 10/17/2024 1:45 PM CAN VACUUM TESTER Appointment [facility] [address] [facility] [address] [place] [address] Karla Goldberg MD [address] [place] [phone] 10/18/2024 1:45 PM CAN VACUUM TESTER Appointment [address] [address] Karla Goldberg MD [address] [place] [phone] 10/19/2024 1:45 PM CAN VACUUM TESTER Appointment [address] [id number] Karla Goldberg MD [address] [place] [phone] 10/20/2024 1:45 PM CAN VACUUM TESTER Appointment [address] [phone] Karla Goldberg MD [address] [place] [phone] 10/23/2024 1:45 PM CAN VACUUM TESTER Appointment [address] [phone] Karla Goldberg MD [address] [place] [phone] 10/24/2024 11:30 AM CAN VACUUM TESTER Office Visit [facility] SGF [address] [place] [address] Chris Flores MD [address] [place] [phone] 10/24/2024 1:45 PM CAN VACUUM TESTER Appointment [address] [phone] Karla Goldberg MD [address] [place] [phone] 10/25/2024 1:45 PM CAN VACUUM TESTER Appointment [address] [phone] Karla Goldberg MD [address] [place] [phone] 10/26/2024 1:45 PM CAN VACUUM TESTER Appointment [address] [phone] Karla Goldberg MD [address] [place] [phone] 10/27/2024 1:45 PM CAN VACUUM TESTER Appointment [address] [phone] Karla Goldberg MD [address] [place] [phone] 10/30/2024 1:45 PM CDT Appointment [address] [phone] Karla Goldberg MD [address] [place] [phone] 10/31/2024 1:45 PM CDT Appointment [address] [phone] Karla Goldberg MD [address] [place] [phone] 11/01/2024 1:45 PM CDT Appointment [address] [phone] Karla Goldberg MD [address] [place] [phone] 11/02/2024 1:45 PM CDT Appointment [address] [phone] Karla Goldberg MD [address] [place] [phone] 11/03/2024 1:45 PM CDT Appointment [address] [phone] Karla Goldberg MD [address] [place] [phone] 11/06/2024 1:45 PM CDT Appointment [address] [phone] Karla Goldberg MD [address] [place] [phone] 11/07/2024 1:45 PM CDT Appointment [address] [phone] Karla Goldberg MD [address] [place] [phone] 11/08/2024 1:45 PM CDT Appointment [address] [phone] Karla Goldberg MD [address] [place] [phone] 11/09/2024 1:45 PM CDT Appointment [address] [phone] Karla Goldberg MD [address] [place] [phone] 11/10/2024 1:45 PM CDT Appointment [address] [phone] Karla Goldberg MD [address] [place] [phone] 11/13/2024 1:45 PM CDT Appointment [address] [phone] Karla Goldberg MD [address] [place] [phone] 11/14/2024 1:45 PM CDT Appointment [address] [phone] Karla Goldberg MD [address] [place] [phone] 11/15/2024 12:45 PM CDT Appointment [address] [phone] Karla Goldberg MD [address] [place] [phone] 11/16/2024 12:45 PM CDT Appointment [address] [phone] Karla Goldberg MD [address] [place] [phone] 11/17/2024 1:45 PM CDT Appointment [address] [phone] Karla Goldberg MD [address] [place] [phone] 11/20/2024 1:45 PM CDT Appointment [address] [phone] Karla Goldberg MD [address] [place] [phone] 11/21/2024 1:45 PM CDT Appointment [address] [phone] Karla Goldberg MD [address] [place] [phone] 11/22/2024 1:45 PM CDT Appointment [address] [phone] Karla Goldberg MD [address] [place] [phone] 11/23/2024 1:45 PM CDT Appointment [address] [phone] Karla Goldberg MD [address] [place] [phone] 11/24/2024 1:45 PM CDT Appointment [address] [phone] Karla Goldberg MD [address] [place] [phone] 11/27/2024 1:45 PM CDT Appointment [address] [phone] Karla Goldberg MD [address] [place] [phone] 11/28/2024 1:45 PM CDT Appointment [address] [phone] Karla Goldberg MD [address] [place] [phone] documented as of this encounter Visit Diagnoses Not on filedocumented in this encounter Additional Health Concerns Infection Onset Date Last Indicated Resolved Time Respiratory Syncytial Virus (RSV) 09/14/2024 025 10/12/2024 1:16 AM CAN VACUUM TESTER Assessment Noted Time PHQ-9 Depression Total Score: 1 04/20/20 11:16 PM CDT documented as of this encounter
--- OUTSIDE RECORDS SUMMARY | 2024-10-14 10:34 | XMS_ITS ---
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 Lifetime Dose Tracking * Chemical Lifetime Dose Automatic Entry Manual Entr y cisplatin 41.053 mg/m2 (78 mg) 41.053 mg/m2 (78 mg) 0 mg/m2 (0 mg) Effective Dose 2.6 mSv 2.6 mSv 0 mSv Total DLP 1,249 DLP 1,249 DLP 0 DLP CTDIvol Max 78.9 mGy 78.9 mGy 0 mGy CTDIvol Min 68 mGy 68 mGy 0 mGy Resolved Problems Problem Noted Date Diagnosed Date Resolved Date Hypovolemic shock 09/14/2024 09/16/2024 Severe sepsis with septic shock 09/13/2024 09/16/2024
--- OUTSIDE RECORDS SUMMARY | 2024-10-14 10:34 | XMS_ITS | Encounter Summary ---
Author Organization [facility] Address [address] [place] [address] Care Team Providers Care Supercharger Mechanic Name Role Phone Unavailable Primary Care Provider Unavailabl e Encounter Details Date Type Department Care Team (Late Contact Info) Description 10/14/2024 External Device Data [facility] ABSTRACTION Provider, Abstract NO ADDRESS ON FILE Social History Tobacco Use Types Packs/Day Years [...] on file Legal Sex Female 1:37 AM FIRE CONTROL OFFICER Gender Identity Not on file Sexual Orientation Not on file documented as of this encounter Plan of Treatment Upcoming Encounters Date Type Department Care Team (Late Contact Info) Description 10/16/2024 11:00 AM FIRE CONTROL OFFICER Appointment [facility] On[facility] [address] [facility] [address] [place] [address] Rashmi Dumont MD [address] [facility] [address] [place] [address] [facility] Oncology, Infusion 8 10/16/2024 1:45 PM FIRE CONTROL OFFICER Appointment [address] [phone] Karla Goldberg MD [address] [place] [phone] 10/17/2024 1:45 PM FIRE CONTROL OFFICER Appointment [address] [address] Karla Goldberg MD [address] [place] [phone] 10/18/2024 1:45 PM FIRE CONTROL OFFICER Appointment [address] [address] Karla Goldberg MD [address] [place] [phone] 10/19/2024 1:45 PM FIRE CONTROL OFFICER Appointment [address] [address] Karla Goldberg MD [address] [place] [phone] 10/20/2024 1:45 PM FIRE CONTROL OFFICER Appointment [address] [address] Karla Goldberg MD [address] [place] [phone] 10/23/2024 1:45 PM FIRE CONTROL OFFICER Appointment [address] [address] Karla Goldberg MD [address] [place] [phone] 10/24/2024 11:30 AM FIRE CONTROL OFFICER Office Visit [facility] Ear Nose and Throat Head Neck SGF [address] [place] [address] Chris Flores MD [address] [place] [address] 10/24/2024 1:45 PM FIRE CONTROL OFFICER Appointment [address] [address] Karla Goldberg MD [address] [place] [phone] 10/25/2024 1:45 PM FIRE CONTROL OFFICER Appointment [address] [address] Karla Goldberg MD [address] [place] [phone] 10/26/2024 1:45 PM FIRE CONTROL OFFICER Appointment [address] [address] Karla Goldberg MD [address] [place] [phone] 10/27/2024 1:45 PM FIRE CONTROL OFFICER Appointment [address] [address] Karla Goldberg MD [address] [place] [phone] 10/30/2024 1:45 PM CDT Appointment [address] [address] Karla Goldberg MD [address] [place] [phone] 10/31/2024 1:45 PM CDT Appointment [address] [address] Karla Goldberg MD [address] [place] [phone] 11/01/2024 1:45 PM CDT Appointment [address] [address] Karla Goldberg MD [address] [place] [phone] 11/02/2024 1:45 PM CDT Appointment [address] [address] Karla Goldberg MD [address] [place] [phone] 11/03/2024 1:45 PM CDT Appointment [address] [address] Karla Goldberg MD [address] [place] [phone] 11/06/2024 1:45 PM CDT Appointment [address] [address] Karla Goldberg MD [address] [place] [phone] 11/07/2024 1:45 PM CDT Appointment [address] [phone] Karla Goldberg MD [address] [place] [phone] 11/08/2024 1:45 PM CDT Appointment [address] [address] Karla Goldberg MD [address] [place] [phone] 11/09/2024 1:45 PM CDT Appointment [address] [address] Karla Goldberg MD [address] [place] [phone] 11/10/2024 1:45 PM CDT Appointment [address] [address] Karla Goldberg MD [address] [place] [phone] 11/13/2024 1:45 PM CDT Appointment [address] [address] Karla Goldberg MD [address] [place] [phone] 11/14/2024 1:45 PM CDT Appointment [address] [address] Karla Goldberg MD [address] [place] [phone] 11/15/2024 12:45 PM CDT Appointment [address] [phone] Karla Goldberg MD [address] [place] [phone] 11/16/2024 12:45 PM CDT Appointment [address] [address] Karla Goldberg MD [address] [place] [phone] 11/17/2024 1:45 PM CDT Appointment [address] [phone] Karla Goldberg MD [address] [place] [phone] 11/20/2024 1:45 PM CDT Appointment [address] [phone] Karla Goldberg MD [address] [place] [phone] 11/21/2024 1:45 PM CDT Appointment [address] [phone] Karla Goldberg MD [address] [place] [phone] 11/22/2024 1:45 PM CDT Appointment [address] [phone] Karla Goldberg MD [address] [place] [phone] 11/23/2024 1:45 PM CDT Appointment [address] [phone] Karla Goldberg MD [address] [place] [phone] 11/24/2024 1:45 PM CDT Appointment [address] [phone] Karla Goldberg MD [address] [place] [phone] 11/27/2024 1:45 PM CDT Appointment [address] [phone] Karla Goldberg MD [address] [place] [phone] 11/28/2024 1:45 PM CDT Appointment [address] [phone] Karla Goldberg MD [address] [place] [phone] documented as of this encounter Visit Diagnoses Not on filedocumented in this encounter Additional Health Concerns Assessment Noted Time PHQ-9 Depression Total Score: 1 04/20/20 24 11:16 PM CDT documented as of this encounter
--- OUTSIDE RECORDS SUMMARY | 2024-10-14 10:34 | XMS_ITS | Encounter Summary ---
Author Organization [facility] Address [address] [place] [address] Care Team Providers Care Floor Worker Well Service Name Role Phone Unavailable Primary Care Provider Unavailabl e Reason for Visit * Radiation Therapy (Routine) - Authorized Specialty Diagnoses / Procedures Referred By Contac t Referred To Contact Radiation Oncology Diagnoses Carcinoma larynx (CMS/HCC) Procedures CA OFFICE/OUTPATIENT ESTABLISHED MOD MDM 30 MIN CA OFFICE/OUTPATIENT NEW MODERATE MDM 45 MINUTES 41657, 08667, 95830, 78417, 18031*2, 17113*2, 36939*35, 72903*35, 50333*7, 93034*7 Chris Flores MD [address] [address] Phone: tel: fax: Karla Goldberg MD [address] [place] [address] Phone: tel: fax: Referral ID Status Reason Start Date Expiration Date V isits Requested Visits Authorized [id number] Authorized 06/22/2024 06/22/2025 50 50 Encounter Details Date Type Department Care Team (Latest Contact Info) Description 10/09/2024 1:47 PM MANAGER TARGET - 10/09/2024 11:59 PM MANAGER TARGET Hospital Encounter [facility] [address] [place] [phone] Karla Goldberg MD [address] [place] [address] Discharge Disposition: Home or Self Care Social History Tobacco Use Types Packs/Day Years [...] on file Legal Sex Female 1:37 AM MANAGER TARGET Gender Identity Not on file Sexual Orientation Not on file documented as of this encounter Medications at Time of Discharge clopidogreL (PLAVIX) 75 mg Tablet 1 Tablet (75 mg) by G Tube route daily. 30 Tablet 10/05/2024 ondansetron (ZOFRAN ODT) 8 mg Tablet, Rapid Dissolve Dissolve 1 tablet on top of tongue then swallow with saliva every 8 hours as needed for nausea or vomiting. Can start Day 3 of chemo. 30 Tablet 1 10/05/2024 PARoxetine HCl (PAXIL) 20 mg tablet 1 Tablet (20 mg) by G Tube route daily. 30 Tablet 10/05/2024 OLANZapine (ZyPREXA) 5 mg tablet Take 1 tab po evening PRN CINV. Can start Day 1 of chemo. 30 Tablet 1 10/05/2024 dexAMETHasone (DECADRON) 4 mg tablet 1 tablet PO BID with meals Day 2, 3 of chemo. Repeat each chemo. 28 Tablet 10/05/2024 ALPRAZolam (Xanax) 0.5 mg tabletIndications: Laryngeal squamous cell carcinoma (CMS/HCC) Take 1 Tablet (0.5 mg) by mouth 1 time daily as needed for Anxiety (for prior to RT for clausterphobia). 20 Tablet 10/05/2024 naloxone (NARCAN) 4 mg/spray [place], Non-Aerosol EMERGENCY USE ONLY: Administer 1 spray (4 mg) in one nostril one time. May repeat in alternating nostrils every 2-3 min until responsive or EMS arrives. 2 Each 3 09/28/2024 5:11 PM MANAGER TARGET 09/28/2024 trach supplies Surgery Date: 09/17/2025 Length of Need: 99 months Charlie resendez, Size 6 FR Cuffed: no, Fenestrated: no,1 per 3 mo, Inner cannula yes 1 per day, trach care kits 1 per day 1 Each 09/28/2024 traMADoL (ULTRAM) 50 mg tabletIndications: Laryngeal squamous cell carcinoma (CMS/HCC) Take 1 Tablet (50 mg) by mouth every 8 hours as needed for Pain. 21 Tablet 07/13/2024 atorvastatin (LIPITOR) 80 mg tablet 80 mg by G Tube route daily at bedtime. 05/26/2024 bisacodyL (DULCOLAX) 10 mg Suppository Insert 10 mg by rectum 1 time daily as needed. 05/26/2024 budesonide (PULMICORT RESPULE) 0.5 mg/2 mL Suspension for Nebulization Take 0.5 mg by inhalation 2 times daily. 05/26/2024 aspirin (RISA CHEWABLE) 81 mg Tablet, Chewable 81 mg by G Tube route daily. 05/27/2024 nitroglycerin (NITROSTAT) 0.4 mg Tablet, Sublingual Place 0.4 mg under tongue every 5 minutes as needed. 05/26/2024 HYDROcodone-acetam inophen (NORCO) 5-325 mg tabletIndications: Laryngeal squamous cell carcinoma (CMS/HCC) Take 1 Tablet by mouth every 6 hours as needed for Pain, Moderate. Max Daily Amount: 4 Tablets 20 Tablet 10/05/2024 midodrine (PROAMATINE) 5 mg tablet Take 1 Tablet (5 mg) by mouth 2 times daily for 14 days. 28 Tablet 09/28/2024 5:11 PM MANAGER TARGET 09/28/2024 5 documented as of this encounter Plan of Treatment Upcoming Encounters Date Type Department Care Team (Late st Contact Info) Description 10/16/2024 11:00 AM MANAGER TARGET Appointment [facility] [address] [facility] [address] [place] [phone] Rashmi Dumont MD [address] [address] [facility] Oncology, Infusion 8 10/16/2024 1:45 PM MANAGER TARGET Appointment [address] [address] Karla Goldberg MD [address] [place] [phone] 10/17/2024 1:45 PM MANAGER TARGET Appointment [address] [phone] Karla Goldberg MD [address] [place] [phone] 10/18/2024 1:45 PM MANAGER TARGET Appointment [address] [address] Karla Goldberg MD [address] [place] [phone] 10/19/2024 1:45 PM MANAGER TARGET Appointment [address] [phone] Karla Goldberg MD [address] [place] [phone] 10/20/2024 1:45 PM MANAGER TARGET Appointment [address] [address] Karla Goldberg MD [address] [place] [phone] 10/23/2024 1:45 PM MANAGER TARGET Appointment [address] [address] Karla Goldberg MD [address] [place] [phone] 10/24/2024 11:30 AM MANAGER TARGET Office Visit [facility] N[facility] Th[facility] Head Neck [facility]GF [address] [place] [address] Chris Flores MD [address] [place] [address] 10/24/2024 1:45 PM MANAGER TARGET Appointment [address] [address] Karla Goldberg MD [address] [place] [phone] 10/25/2024 1:45 PM MANAGER TARGET Appointment [address] [address] Karla Goldberg MD [address] [place] [phone] 10/26/2024 1:45 PM MANAGER TARGET Appointment [address] [address] Karla Goldberg MD [address] [place] [phone] 10/27/2024 1:45 PM MANAGER TARGET Appointment [address] [address] Karla Goldberg MD [address] [place] [phone] 10/30/2024 1:45 PM CDT Appointment [address] [phone] Karla Goldberg MD [address] [place] [phone] 10/31/2024 1:45 PM CDT Appointment [address] [phone] Karla Goldberg MD [address] [place] [phone] 11/01/2024 1:45 PM CDT Appointment [address] [address] Karla Goldberg MD [address] [place] [phone] 11/02/2024 1:45 PM CDT Appointment [address] [address] Karla Goldberg MD [address] [place] [phone] 11/03/2024 1:45 PM CDT Appointment [address] [address] Karla Goldberg MD [address] [place] [phone] 11/06/2024 1:45 PM CDT Appointment [address] [address] Karla Goldberg MD [address] [place] [phone] 11/07/2024 1:45 PM CDT Appointment [address] [address] Karla Goldberg MD [address] [place] [phone] 11/08/2024 1:45 PM CDT Appointment [address] [address] Karla Goldberg MD [address] [place] [phone] 11/09/2024 1:45 PM CDT Appointment [address] [address] Karla Goldberg MD [address] [place] [phone] 11/10/2024 1:45 PM CDT Appointment [address] [address] Karla Goldberg MD [address] [place] [phone] 11/13/2024 1:45 PM CDT Appointment [address] [address] Karla Goldberg MD [address] [place] [phone] 11/14/2024 1:45 PM CDT Appointment [address] [address] Karla Goldberg MD [address] [place] [phone] 11/15/2024 12:45 PM CDT Appointment [address] [address] Karla Goldberg MD [address] [place] [phone] 11/16/2024 12:45 PM CDT Appointment [address] [address] Karla Goldberg MD [address] [place] [phone] 11/17/2024 1:45 PM CDT Appointment [address] [address] Karla Goldberg MD [address] [place] [phone] 11/20/2024 1:45 PM CDT Appointment [address] [address] Karla Goldberg MD [address] [place] [phone] 11/21/2024 1:45 PM CDT Appointment [address] [address] Karla Goldberg MD [address] [place] [phone] 11/22/2024 1:45 PM CDT Appointment [address] [address] Karla Goldberg MD [address] [place] [phone] 11/23/2024 1:45 PM CDT Appointment [address] [address] Karla Goldberg MD [address] [place] [phone] 11/24/2024 1:45 PM CDT Appointment [address] [address] Karla Goldberg MD [address] [place] [phone] 11/27/2024 1:45 PM CDT Appointment [address] [address] Karla Goldberg MD [address] [place] [phone] 11/28/2024 1:45 PM CDT Appointment [address] [address] Karla Goldberg MD [address] [place] [address] documented as of this encounter Visit Diagnoses Not on filedocumented in this encounter Administered Medications Inactive Administered Medications - up to 3 most recent administrations Medication Order MAR Action Action Date Dose Rate Site ALPRAZolam (XANAX) tablet 0.5 mg 0.5 mg, Oral, ONE TIME ONLY, 1 dose, On Wed10/09/24 at 1400, Routine Given 10/09/2024 2:02 PM MANAGER TARGET 0.5 mg documented in this encounter Additional Health Concerns Infection Onset Date Last Indicated Resolved Time Respiratory Syncytial Virus (RSV) 09/14/2024 025 10/12/2024 1:16 AM MANAGER TARGET Assessment Noted Time PHQ-9 Depression Total Score: 1 04/20/20 24 11:16 PM CDT documented as of this encounter
--- OUTSIDE RECORDS SUMMARY | 2024-10-14 10:34 | XMS_ITS | Encounter Summary ---
Author Organization [facility] Address [address] [place] [address] Care Team Providers Care Hand Miter Operator Name Role Phone Unavailable Primary Care Provider Unavailabl e Reason for Visit * Reason Onset Date Comments TREATMENT UPDATE 09/27/2024 Encounter Details Date Type Department Care Team (Late st Contact Info) Description 09/27/2024 Telephone [facility] [place] [address] [facility] [address] [place] [address] Eleazar Saldana, RN TREATMENT UPDATE Social History Tobacco Use Types Packs/Day Years [...] on file Legal Sex Female 1:37 AM VEHICLE CONTROLS ENGINEER Gender Identity Not on file Sexual Orientation Not on file documented as of this encounter Miscellaneous Notes * Addendum Note - Eleazar Saldana RN - 09/27/2024 10:17 AM CSTAddended by: ELEAZAR SALDANA on: 09/27/2024 10:17 AM Modules accepted: Orders CLE CONTROLS ENGINEER * Telephone Encounter - Eleazar Saldana, RN - 09/27/2024 9:51 AM CST UPDATE - SC TO OI, NICOLETTE NN AND MOE OH oi - pt is scheduled to start chemoradiation on 10/05 - currently inpatient - can we make a tentative appt for pt to see chb (or cylinder machine operator pulp drier ok since sang seeing pt in hospital) linked to CISPLATIN_EVERY 7 DAYS X 6 WITH CONCURRENT RADIATION - cbc/cmp/mag prior - looks like she currently has midline, not sure if she'll still have upon d/c; looks like she had teach on 07/27? Dian - can you help with port placement after discharge? - Jacque - heads up in case you were not already aware Per chb - she thinks that hospital is working on some kind of placement upon discharge. Sang said that we can cancel port order - will plan to do treatment piv. TENTATIVE APPT SCHEDULED FOR [place] 830am 10/05 CLE CONTROLS ENGINEER CLE CONTROLS ENGINEER CLE CONTROLS ENGINEER documented in this encounter Plan of Treatment Upcoming Encounters Date Type Department Care Team (Late st Contact Info) Description 10/16/2024 11:00 AM VEHICLE CONTROLS ENGINEER Appointment [facility] Oncology [facility] [address] [facility] [address] [place] [address] Rashmi Dumont MD [address] [facility] [address] [place] [address] [facility] Oncology, Infusion 8 10/16/2024 1:45 PM VEHICLE CONTROLS ENGINEER Appointment [facility] Radiation Oncology [facility] [place] [address] [facility] [address] [place] [address] Eleazar Goldberg MD [address] [place] [address] 10/17/2024 1:45 PM VEHICLE CONTROLS ENGINEER Appointment [address] [address] Eleazar Goldberg MD [address] [place] [phone] 10/18/2024 1:45 PM VEHICLE CONTROLS ENGINEER Appointment [address] [address] Eleazar Goldberg MD [address] [place] [phone] 10/19/2024 1:45 PM VEHICLE CONTROLS ENGINEER Appointment [address] [address] Eleazar Goldberg MD [address] [place] [phone] 10/20/2024 1:45 PM VEHICLE CONTROLS ENGINEER Appointment [address] [address] Eleazar Goldberg MD [address] [place] [phone] 10/23/2024 1:45 PM VEHICLE CONTROLS ENGINEER Appointment [address] [address] Eleazar Goldberg MD [address] [place] [phone] 10/24/2024 11:30 AM VEHICLE CONTROLS ENGINEER Office Visit [facility] Ear Nose and Throat Head Neck SGF [address] [place] [address] Chris Flores MD [address] [address] 10/24/2024 1:45 PM VEHICLE CONTROLS ENGINEER Appointment [address] [place] [address] Eleazar Goldberg MD [address] [place] [phone] 10/25/2024 1:45 PM VEHICLE CONTROLS ENGINEER Appointment [address] [address] Eleazar Goldberg MD [address] [place] [phone] 10/26/2024 1:45 PM VEHICLE CONTROLS ENGINEER Appointment [address] [address] Eleazar Goldberg MD [address] [place] [phone] 10/27/2024 1:45 PM VEHICLE CONTROLS ENGINEER Appointment [address] [address] Eleazar Goldberg MD [address] [place] [phone] 10/30/2024 1:45 PM CDT Appointment [address] [place] [address] Eleazar Goldberg MD [address] [place] [phone] 10/31/2024 1:45 PM CDT Appointment [address] [address] Eleazar Goldberg MD [address] [place] [phone] 11/01/2024 1:45 PM CDT Appointment [address] [phone] Eleazar Goldberg MD [address] [place] [phone] 11/02/2024 1:45 PM CDT Appointment [address] [address] Eleazar Goldberg MD [address] [place] [phone] 11/03/2024 1:45 PM CDT Appointment [address] [address] Eleazar Goldberg MD [address] [place] [phone] 11/06/2024 1:45 PM CDT Appointment [address] [address] Eleazar Goldberg MD [address] [place] [phone] 11/07/2024 1:45 PM CDT Appointment [address] [address] Eleazar Goldberg MD [address] [place] [phone] 11/08/2024 1:45 PM CDT Appointment [address] [address] Eleazar Goldberg MD [address] [place] [phone] 11/09/2024 1:45 PM CDT Appointment [address] [address] Eleazar Goldberg MD [address] [place] [phone] 11/10/2024 1:45 PM CDT Appointment [address] [address] Eleazar Goldberg MD [address] [place] [phone] 11/13/2024 1:45 PM CDT Appointment [address] [address] Eleazar Goldberg MD [address] [place] [phone] 11/14/2024 1:45 PM CDT Appointment [address] [address] Eleazar Goldberg MD [address] [place] [phone] 11/15/2024 12:45 PM CDT Appointment [address] [address] Eleazar Goldberg MD [address] [place] [phone] 11/16/2024 12:45 PM CDT Appointment [address] [address] Eleazar Goldberg MD [address] [place] [phone] 11/17/2024 1:45 PM CDT Appointment [address] [address] Eleazar Goldberg MD [address] [place] [phone] 11/20/2024 1:45 PM CDT Appointment [address] [address] Eleazar Goldberg MD [address] [place] [phone] 11/21/2024 1:45 PM CDT Appointment [address] [address] Eleazar Goldberg MD [address] [place] [phone] 11/22/2024 1:45 PM CDT [address]ment [address] [place] [address] Eleazar Goldberg MD [address] [place] [phone] 11/23/2024 1:45 PM CDT Appointment [address] [address] Eleazar Goldberg MD [address] [place] [phone] 11/24/2024 1:45 PM CDT Appointment [address] [address] Eleazar Goldberg MD [address] [place] [phone] 11/27/2024 1:45 PM CDT Appointment [address] [address] Eleazar Goldberg MD [address] [place] [phone] 11/28/2024 1:45 PM CDT Appointment [address] [address] Eleazar Goldberg MD [address] [place] [phone] documented as of this encounter Visit Diagnoses Not on filedocumented in this encounter Additional Health Concerns Infection Onset Date Last Indicated Resolved Time Respiratory Syncytial Virus (RSV) 09/14/2024 025 10/12/2024 1:16 AM VEHICLE CONTROLS ENGINEER Assessment Noted Time PHQ-9 Depression Total Score: 1 04/20/20 24 11:16 PM CDT documented as of this encounter
--- OUTSIDE RECORDS SUMMARY | 2024-10-14 10:34 | XMS_ITS | Encounter Summary ---
Author Organization [facility] Address [address] [place] [address] Care Team Providers Care Business Technology Teacher Name Role Phone Unavailable Primary Care Provider Unavailabl e Encounter Details Date Type Department Care Team (Late Contact Info) Description 10/06/[address] [facility] Cancer and Hematology [place] [address] [facility] [address] [place] [address] Provider, Abstract NO ADDRESS ON FILE Social [...] on file Legal Sex Female 1:37 AM POWDERED METAL SUPERVISOR Gender Identity Not on file Sexual Orientation Not on file documented as of this encounter Plan of Treatment Upcoming Encounters Date Type Department Care Team (Late Contact Info) Description 10/16/2024 11:00 AM POWDERED METAL SUPERVISOR Appointment [facility] Oncology [facility] [address] [place] [address] Rashmi Dumont MD [address] [facility] [address] [place] [address] Spr Oncology, Infusion 8 10/16/2024 1:45 PM POWDERED METAL SUPERVISOR Appointment [facility] [address] [place] [address] Karla Goldberg MD [address] [place] [phone] 10/17/2024 1:45 PM POWDERED METAL SUPERVISOR Appointment [address] [address] Karla Goldberg MD [address] [place] [phone] 10/18/2024 1:45 PM POWDERED METAL SUPERVISOR Appointment [address] [address] Karla Goldberg MD [address] [place] [phone] 10/19/2024 1:45 PM POWDERED METAL SUPERVISOR Appointment [address] [address] Karla Goldberg MD [address] [place] [phone] 10/20/2024 1:45 PM POWDERED METAL SUPERVISOR Appointment [address] [address] Karla Goldberg MD [address] [place] [phone] 10/23/2024 1:45 PM POWDERED METAL SUPERVISOR Appointment [address] [place] [address] Karla Goldberg MD [address] [place] [phone] 10/24/2024 11:30 AM POWDERED METAL SUPERVISOR Office Visit [facility] Ear Nose and Throat Head Neck SGF [address] [place] [address] Chris Flores MD [address] [place] [address] 10/24/2024 1:45 PM POWDERED METAL SUPERVISOR Appointment [address] [address] Karla Goldberg MD [address] [place] [phone] 10/25/2024 1:45 PM POWDERED METAL SUPERVISOR Appointment [address] [address] Karla Goldberg MD [address] [place] [phone] 10/26/2024 1:45 PM POWDERED METAL SUPERVISOR Appointment [address] [address] Karla Goldberg MD [address] [place] [phone] 10/27/2024 1:45 PM POWDERED METAL SUPERVISOR Appointment [address] [address] Karla Goldberg MD [address] [place] [phone] 10/30/2024 1:45 PM CDT Appointment [address] [address] Karla Goldberg MD [address] [place] [phone] 10/31/2024 1:45 PM CDT Appointment [address] [address] Karla Goldberg MD [address] [place] [phone] 11/01/2024 1:45 PM CDT Appointment [address] [address] Karla Goldberg MD [address] [place] [phone] 11/02/2024 1:45 PM CDT Appointment [address] [address] Karla Goldberg MD [address] [place] [phone] 11/03/2024 1:45 PM CDT Appointment [address] [address] Karla Goldberg MD [address] [place] [phone] 11/06/2024 1:45 PM CDT [facility]ment [facility] [address] [address] Karla Goldberg MD [address] [place] [phone] 11/07/2024 1:45 PM CDT Appointment [address] [address] Karla Goldberg MD [address] [place] [phone] 11/08/2024 1:45 PM CDT Appointment [address] [address] Karla Goldberg MD [address] [place] [phone] 11/09/2024 1:45 PM CDT Appointment [address] [address] Karla Goldberg MD [address] [place] [phone] 11/10/2024 1:45 PM CDT Appointment [address] [address] Karla Goldberg MD [address] [place] [phone] 11/13/2024 1:45 PM CDT Appointment [address] [address] Karla Goldberg MD [address] [place] [phone] 11/14/2024 1:45 PM CDT Appointment [address] [phone] Krala Goldberg MD [address] [place] [phone] 11/15/2024 12:45 PM CDT Appointment [address] [phone] Karla Goldberg MD [address] [place] [phone] 11/16/2024 12:45 PM CDT Appointment [address] [address] Karla Goldberg MD [address] [place] [phone] 11/17/2024 1:45 PM CDT Appointment [address] [address] Karla Goldberg MD [address] [place] [phone] 11/20/2024 1:45 PM CDT Appointment [address] [address] Karla Goldberg MD [address] [place] [phone] 11/21/2024 1:45 PM CDT Appointment [address] [address] Karla Goldberg MD [address] [place] [phone] 11/22/2024 1:45 PM CDT Appointment [address] [address] Karla Goldberg MD [address] [place] [phone] 11/23/2024 1:45 PM CDT Appointment [address] [address] Karla Goldberg MD [address] [place] [phone] 11/24/2024 1:45 PM CDT Appointment [address] [address] Karla Goldberg MD [address] [place] [phone] 11/27/2024 1:45 PM CDT Appointment [address] [address] Karla Goldberg MD [address] [place] [phone] 11/28/2024 1:45 PM CDT Appointment [address] [address] Karla Goldberg MD [address] [place] [phone] documented as of this encounter Visit Diagnoses Not on filedocumented in this encounter Additional Health Concerns Infection Onset Date Last Indicated Resolved Time Respiratory Syncytial Virus (RSV) 09/14/2024 025 10/12/2024 1:16 AM POWDERED METAL SUPERVISOR Assessment Noted Time PHQ-9 Depression Total Score: 1 04/20/20 24 11:16 PM CDT documented as of this encounter
--- OUTSIDE RECORDS SUMMARY | 2024-10-14 10:34 | XMS_ITS | Encounter Summary ---
Author Organization [facility] Address [address] [place] [address] Care Team Providers Care Driver'S License Examiner Name Role Phone Unavailable Primary Care Provider Unavailabl e Encounter Details Date Type Department Care Team (Late Contact Info) Description 10/10/2024 External Device Data STL ABSTRACTION Provider, [...] on file Legal Sex Female 1:37 AM AIRCRAFT BODY REPAIRER Gender Identity Not on file Sexual Orientation Not on file documented as of this encounter Plan of Treatment Upcoming Encounters Date Type Department Care Team (Late Contact Info) Description 10/16/2024 11:00 AM AIRCRAFT BODY REPAIRER Appointment [facility] [address] [facility] [address] [place] [address] Rashmi Dumont MD 2054 [facility] [address] [place] [address] [facility] Oncology, Infusion 8 10/16/2024 1:45 PM AIRCRAFT BODY REPAIRER Appointment [address] [id number] Karla Goldberg MD [address] [place] [phone] 10/17/2024 1:45 PM AIRCRAFT BODY REPAIRER Appointment [address] [id number] Karla Goldberg MD [address] [place] [phone] 10/18/2024 1:45 PM AIRCRAFT BODY REPAIRER Appointment [address] [id number] Karla Goldberg MD [address] [place] [phone] 10/19/2024 1:45 PM AIRCRAFT BODY REPAIRER Appointment [address] [id number] Karla Goldberg MD [address] [place] [phone] 10/20/2024 1:45 PM AIRCRAFT BODY REPAIRER Appointment [address] [id number] Karla Goldberg MD [address] [place] [phone] 10/23/2024 1:45 PM AIRCRAFT BODY REPAIRER Appointment [address] [id number] Karla Goldberg MD [address] [place] [phone] 10/24/2024 11:30 AM AIRCRAFT BODY REPAIRER Office Visit [facility] Ear Nose and Throat Head Neck SGF [address] [place] [address] Chris Flores MD [address] [place] [address] 10/24/2024 1:45 PM AIRCRAFT BODY REPAIRER Appointment [address] [id number] Karla Goldberg MD [address] [place] [phone] 10/25/2024 1:45 PM AIRCRAFT BODY REPAIRER Appointment [address] [id number] Karla Goldberg MD [address] [place] [phone] 10/26/2024 1:45 PM AIRCRAFT BODY REPAIRER Appointment [address] [id number] Karla Goldberg MD [address] [place] [phone] 10/27/2024 1:45 PM AIRCRAFT BODY REPAIRER Appointment [address] [id number] Karla Goldberg MD [address] [place] [phone] 10/30/2024 1:45 PM CDT Appointment [address] [id number] Karla Goldberg MD [address] [place] [phone] 10/31/2024 1:45 PM CDT Appointment [address] [id number] Karla Goldberg MD [address] [place] [phone] 11/01/2024 1:45 PM CDT Appointment [address] [id number] Karla Goldberg MD [address] [place] [phone] 11/02/2024 1:45 PM CDT Appointment [address] [id number] Karla Goldberg MD [address] [place] [phone] 11/03/2024 1:45 PM CDT Appointment [address] [id number] Karla Goldberg MD [address] [place] [phone] 11/06/2024 1:45 PM CDT Appointment [address] [id number] Karla Goldberg MD [address] [place] [phone] 11/07/2024 1:45 PM CDT Appointment [address] [phone] Karla Goldberg MD [address] [place] [phone] 11/08/2024 1:45 PM CDT Appointment [address] [id number] Karla Goldberg MD [address] [place] [phone] 11/09/2024 1:45 PM CDT Appointment [address] [id number] Karla Goldberg MD [address] [place] [phone] 11/10/2024 1:45 PM CDT Appointment [address] [id number] Karla Goldberg MD [address] [place] [phone] 11/13/2024 1:45 PM CDT Appointment [address] [id number] Karla Goldberg MD [address] [place] [phone] 11/14/2024 1:45 PM CDT Appointment [address] [id number] Karla Goldberg MD [address] [place] [phone] 11/15/2024 12:45 PM CDT Appointment [address] [id number] Karla Goldberg MD [address] [place] [phone] 11/16/2024 12:45 PM CDT Appointment [address] [id number] Karla Goldberg MD [address] [place] [phone] 11/17/2024 1:45 PM CDT Appointment [address] [id number] Karla Goldberg MD [address] [place] [phone] 11/20/2024 1:45 PM CDT Appointment [address] [id number] Karla Goldberg MD [address] [place] [phone] 11/21/2024 1:45 PM CDT Appointment [address] [id number] Karla Goldberg MD [address] [place] [phone] 11/22/2024 1:45 PM CDT Appointment [address] [id number] Karla Goldberg MD [address] [place] [phone] 11/23/2024 1:45 PM CDT Appointment [address] [id number] Karla Goldberg MD [address] [place] [phone] 11/24/2024 1:45 PM CDT Appointment [address] [id number] Karla Goldberg MD [address] [place] [phone] 11/27/2024 1:45 PM CDT Appointment [address] [id number] Karla Goldberg MD [address] [place] [phone] 11/28/2024 1:45 PM CDT Appointment [address] [phone] Karla Goldberg MD [address] [place] [phone] documented as of this encounter Visit Diagnoses Not on filedocumented in this encounter Additional Health Concerns Infection Onset Date Last Indicated Resolved Time Respiratory Syncytial Virus (RSV) 09/14/2024 025 10/12/2024 1:16 AM AIRCRAFT BODY REPAIRER Assessment Noted Time PHQ-9 Depression Total Score: 1 04/20/20 24 11:16 PM CDT documented as of this encounter
--- OUTSIDE RECORDS SUMMARY | 2024-10-14 10:34 | XMS_ITS | Encounter Summary ---
Author Organization [facility] Address [address] [place] [address] Care Team Providers Care Miner Pick Name Role Phone Unavailable Primary Care Provider Unavailabl e Encounter Details Date Type Department Care Team (Late Contact Info) Description 10/08/2024 External Device Data STL ABSTRACTION Provider, [...] on file Legal Sex Female 1:37 AM MINE SURVEYOR Gender Identity Not on file Sexual Orientation Not on file documented as of this encounter Plan of Treatment Upcoming Encounters Date Type Department Care Team (Late Contact Info) Description 10/16/2024 11:00 AM MINE SURVEYOR Appointment [facility] Oncology [facility] [address] [facility] [address] [place] [address] Rashmi Dumont MD 2054 [facility] [address] [place] [address] [facility] Oncology, Infusion 8 10/16/2024 1:45 PM MINE SURVEYOR Appointment [address] [phone] Karla Goldberg MD [address] [place] [phone] 10/17/2024 1:45 PM MINE SURVEYOR Appointment [address] [phone] Karla Goldberg MD [address] [place] [phone] 10/18/2024 1:45 PM MINE SURVEYOR Appointment [address] [phone] Karla Goldberg MD [address] [place] [phone] 10/19/2024 1:45 PM MINE SURVEYOR Appointment [address] [id number] Karla Goldberg MD [address] [place] [phone] 10/20/2024 1:45 PM MINE SURVEYOR Appointment [address] [phone] Karla Goldberg MD [address] [place] [phone] 10/23/2024 1:45 PM MINE SURVEYOR Appointment [address] [phone] Karla Goldberg MD [address] [place] [phone] 10/24/2024 11:30 AM MINE SURVEYOR Office Visit [facility] Ear Nose and Throat Head Neck SGF [address] [place] [phone] Chris Flores MD [address] [place] [address] 10/24/2024 1:45 PM MINE SURVEYOR Appointment [address] [phone] Karla Goldberg MD [address] [place] [phone] 10/25/2024 1:45 PM MINE SURVEYOR Appointment [address] [phone] Karla Goldberg MD [address] [place] [phone] 10/26/2024 1:45 PM MINE SURVEYOR Appointment [address] [id number] Karla Goldberg MD [address] [place] [phone] 10/27/2024 1:45 PM MINE SURVEYOR Appointment [address] [phone] Karla Goldberg MD [address] [place] [phone] 10/30/2024 1:45 PM CDT Appointment [address] [id number] Karla Goldberg MD [address] [place] [phone] 10/31/2024 1:45 PM CDT Appointment [address] [id number] Karla Goldberg MD [address] [place] [phone] 11/01/2024 1:45 PM CDT Appointment [address] [phone] Karla Goldberg MD [address] [place] [phone] 11/02/2024 1:45 PM CDT Appointment [address] [id number] Karla Goldberg MD [address] [place] [phone] 11/03/2024 1:45 PM CDT Appointment [address] [id number] Karla Goldberg MD [address] [place] [phone] 11/06/2024 1:45 PM CDT Appointment [address] [id number] Karla Goldberg MD [address] [place] [phone] 11/07/2024 1:45 PM CDT Appointment [address] [phone] Karla Goldberg MD [address] [place] [phone] 11/08/2024 1:45 PM CDT Appointment [address] [phone] Karla Goldberg MD [address] [place] [phone] 11/09/2024 1:45 PM CDT Appointment [address] [phone] Karla Goldberg MD [address] [place] [phone] 11/10/2024 1:45 PM CDT Appointment [address] [phone] Karla Goldberg MD [address] [place] [phone] 11/13/2024 1:45 PM CDT Appointment [address] [phone] Karla Goldberg MD [address] [place] [phone] 11/14/2024 1:45 PM CDT Appointment [address] [phone] Karla Goldberg MD [address] [place] [phone] 11/15/2024 12:45 PM CDT Appointment [address] [phone] Karla Goldberg MD [address] [place] [phone] 11/16/2024 12:45 PM CDT Appointment [address] [phone] Karla Goldberg MD [address] [place] [phone] 11/17/2024 1:45 PM CDT Appointment [address] [phone] Karla Goldberg MD [address] [place] [phone] 11/20/2024 1:45 PM CDT Appointment [address] [phone] Karla Goldberg MD [address] [place] [phone] 11/21/2024 1:45 PM CDT Appointment [address] [phone] Karla Goldberg MD [address] [place] [phone] 11/22/2024 1:45 PM CDT Appointment [address] [phone] Karla Goldberg MD [address] [place] [phone] 11/23/2024 1:45 PM CDT Appointment [address] [phone] Karla Goldberg MD [address] [place] [phone] 11/24/2024 1:45 PM CDT Appointment [address] [phone] Karla Goldberg MD [address] [place] [phone] 11/27/2024 1:45 PM CDT Appointment [address] [phone] Karla Goldberg MD [address] [place] [phone] 11/28/2024 1:45 PM CDT Appointment [address] [phone] Karla Goldberg MD [address] [place] [phone] documented as of this encounter Visit Diagnoses Not on filedocumented in this encounter Additional Health Concerns Infection Onset Date Last Indicated Resolved Time Respiratory Syncytial Virus (RSV) 09/14/2024 025 10/12/2024 1:16 AM MINE SURVEYOR Assessment Noted Time PHQ-9 Depression Total Score: 1 04/20/20 24 11:16 PM CDT documented as of this encounter
--- OUTSIDE RECORDS SUMMARY | 2024-10-14 10:34 | XMS_ITS | Clinical Summary ---
Author Organization [facility] Address [address] [place] [address] Phone Care Team Providers Care Cancer Genetics Assistant Name Role Phone Unavailable Primary Care Provider Unavailabl e Allergies No known active allergies Medications HYDROcodone-eliezer taminophen (NORCO) 10-325 mg Tablet Take 2 Tabs by mouth every 4 hours as needed for Pain, Moderate. Active naproxen sodium (ALEVE) 220 mg Tablet Take 480 mg by mouth every 4 hours as needed for Pain, Moderate. Active risperiDONE (RisperDAL) 2 mg tablet Take 2 mg by mouth daily. Active cloNIDine HCL (CATAPRES) 0.1 mg tablet Take 0.1 mg by mouth daily. Active cyclobenzaprine (FLEXERIL) 10 mg tablet Take 0.5 Tablets (5 mg) by mouth 3 times daily as needed for Spasm. 30 Tablet 0 Active carisoprodoL (SOMA) 350 mg tabletIndicatio ns:Acute right-sided low back pain without sciatica Take 1 Tablet (350 mg) by mouth 4 times daily. 40 Tablet 0 Active naloxone (NARCAN) 4 mg/spray [place], Non-Aerosol EMERGENCY USE ONLY: Administer 1 spray (4 mg) in one nostril one time. May repeat in alternating nostrils every 2-3 min until responsive or EMS arrives. 2 Each 3 0 Active Social History Tobacco Use Types Packs/Day Years Used Date Smoking Tobacco: Every Day Cigarettes 1 25 Smokeless Tobacco: Never Alcohol Use Standard Drinks/Week Comments No 0 (1 standard drink = 0.6 oz pur e alcohol) Comments No Sex and Gender Information Value Date Recorded Sex Assigned at Not on file Legal Sex Female 2:31 PM PALLIATIVE CARE PHYSICIAN Gender Identity Not on file Sexual Orientation Not on file Last Filed Vital Signs Vital Sign Reading Time Taken Comments Blood Pressure 166/102 02/19/2020 4:10 PM CDT Pulse - - Temperature 36.4 ??C (97.5 ??F) 02/19/2020 1:39 PM CD T Respiratory Rate 18 02/19/2020 4:10 PM CDT Oxygen Saturation 95% 02/19/2020 4:10 PM CDT Inhaled Oxygen Concentration - - Weight 114.8 kg (253 lb) 02/19/2020 1:39 PM CDT Height 167.6 cm (5' 6 ) 02/19/2020 1:39 PM CDT Body Mass Index 40.84 02/19/2020 1:39 PM CDT Plan of Treatment Health Maintenance Due Date Last Done Comments DTAP/TDAP/TD VACCINES (1 - Tdap) 1992 HEPATITIS B VACCINES (1 of 3 - 19+ 3-dose series) 1992 CERVICAL CANCER SCREENING 2003 BREAST CANCER SCREENING 2013 COLORECTAL SCREENING 2018 Colorectal Cancer Screening 2018 FIT-DNA Q 3 years 2018 FIT/FOBT Q 1 year 2018 Flex Sig/CT Colonography Q 5 years 2018 ZOSTER VACCINE (1 of 2) 2023 INFLUENZA VACCINE (#1) 2024 PNEUMOCOCCAL VACCINE 0-64 YEARS Aged Out No longer eligible based on patient's age to complete this topic
--- OUTSIDE RECORDS SUMMARY | 2024-10-14 10:34 | XMS_ITS | Encounter Summary ---
Author Organization [facility] Address [address] [place] [address] Care Team Providers Care Wildlife Protector Name Role Phone Unavailable Primary Care Provider Unavailabl e Reason for Visit * Reason Onset Date Comments Medication Refill 10/05/2024 Encounter Details Date Type Department Care Team (Late st Contact Info) Description 10/05/2024 Refill [facility] Cancer and Hematology [place] [address] [facility] [address] [place] [address] Rashmi Dumont MD [address] [place] [address] Laryngeal squamous cell carcinoma (CMS/HCC) [...] on file Legal Sex Female 1:37 AM ASSISTANT CITY ATTORNEY Gender Identity Not on file Sexual Orientation Not on file documented as of this encounter Miscellaneous Notes * Telephone Encounter - Karla Saldana RN - 10/05/2024 2:30 PM CST Per JJ SOLUTION MAKER - xanax 0.5 daily PRN disp #20 with no refills ---- Palliative care may increase.refilledpaxil zyprexa HS. I told her to space xanax from zyprexa. liquid norco - 10 mg every 4 hours - Dr Goldberg is going to send rxs STANT CITY ATTORNEY documented in this encounter Plan of Treatment Upcoming Encounters Date Type Department Care Team (Late st Contact Info) Description 10/16/2024 11:00 AM ASSISTANT CITY ATTORNEY Appointment [facility] [address] [place] [address] [address] [place] [address] Rashmi Dumont MD [address] [place] [address] [address] [place] [address] [facility] Oncology, Infusion 8 10/16/2024 1:45 PM ASSISTANT CITY ATTORNEY Appointment [address] [id number] Karla Goldberg MD [address] [place] [phone] 10/17/2024 1:45 PM ASSISTANT CITY ATTORNEY Appointment [address] [id number] Karla Goldberg MD [address] [place] [phone] 10/18/2024 1:45 PM ASSISTANT CITY ATTORNEY Appointment [address] [id number] Karla Goldberg MD [address] [place] [phone] 10/19/2024 1:45 PM ASSISTANT CITY ATTORNEY Appointment [address] [id number] Karla Goldberg MD [address] [place] [phone] 10/20/2024 1:45 PM ASSISTANT CITY ATTORNEY Appointment [address] [id number] Karla Goldberg MD [address] [place] [phone] 10/23/2024 1:45 PM ASSISTANT CITY ATTORNEY Appointment [address] [id number] Karla Goldberg MD [address] [place] [phone] 10/24/2024 11:30 AM ASSISTANT CITY ATTORNEY Office Visit [facility] Ear Nose and Throat Head Neck SGF [address] [place] [address] Chris Flores MD [address] [place] [address] 10/24/2024 1:45 PM ASSISTANT CITY ATTORNEY Appointment [address] [id number] Karla Goldberg MD [address] [place] [phone] 10/25/2024 1:45 PM ASSISTANT CITY ATTORNEY Appointment [address] [id number] Karla Goldberg MD [address] [place] [phone] 10/26/2024 1:45 PM ASSISTANT CITY ATTORNEY Appointment [address] [id number] Karla Goldberg MD [address] [place] [phone] 10/27/2024 1:45 PM ASSISTANT CITY ATTORNEY Appointment [address] [id number] Karla Goldberg MD [address] [place] [phone] 10/30/2024 1:45 PM CDT Appointment [address] [id number] Karla Goldberg MD [address] [place] [phone] 10/31/2024 1:45 PM CDT Appointment [address] [id number] Karla Goldberg MD [address] [place] [phone] 11/01/2024 1:45 PM CDT Appointment [address] [id number] Karla Goldberg MD [address] [place] [phone] 11/02/2024 1:45 PM CDT Appointment [address] [id number] Karla Goldberg MD [address] [place] [phone] 11/03/2024 1:45 PM CDT Appointment [address] [id number] Karla Goldberg MD [address] [place] [phone] 11/06/2024 1:45 PM CDT Appointment [address] [id number] Karla Goldberg MD [address] [place] [phone] 11/07/2024 1:45 PM CDT Appointment [address] [id number] Karla Goldberg MD [address] [place] [phone] 11/08/2024 1:45 PM CDT Appointment [address] [id number] Karla Goldberg MD [address] [place] [phone] 11/09/2024 1:45 PM CDT Appointment [address] [id number] Karla Goldberg MD [address] [place] [phone] 11/10/2024 1:45 PM CDT Appointment [address] [id number] Karla Goldberg MD [address] [place] [phone] 11/13/2024 1:45 PM CDT Appointment [address] [id number] Karla Goldberg MD [address] [place] [phone] 11/14/2024 1:45 PM CDT Appointment [address] [id number] Karla Goldberg MD [address] [place] [phone] 11/15/2024 12:45 PM CDT Appointment [address] [id number] Karla Goldberg MD [address] [place] [phone] 11/16/2024 12:45 PM CDT Appointment [address] [id number] Karla Goldberg MD [address] [place] [phone] 11/17/2024 1:45 PM CDT Appointment [address] [id number] Karla Goldberg MD [address] [place] [phone] 11/20/2024 1:45 PM CDT Appointment [address] [id number] Karla Goldberg MD [address] [place] [phone] 11/21/2024 1:45 PM CDT Appointment [address] [id number] Karla Goldberg MD [address] [place] [phone] 11/22/2024 1:45 PM CDT Appointment [address] [id number] Karla Goldberg MD [address] [place] [phone] 11/23/2024 1:45 PM CDT Appointment [address] [id number] Karla Goldberg MD [address] [place] [phone] 11/24/2024 1:45 PM CDT Appointment [facility] [address] [phone] Karla Goldberg MD [address] [place] [phone] 11/27/2024 1:45 PM CDT Appointment [address] [id number] Karla Goldberg MD [address] [place] [phone] 11/28/2024 1:45 PM CDT Appointment [address] [phone] Karla Goldberg MD [address] [place] [phone] documented as of this encounter Visit Diagnoses Diagnosis 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
--- OUTSIDE RECORDS SUMMARY | 2024-10-14 10:34 | XMS_ITS | Encounter Summary ---
Author Organization [facility] Address [address] [place] [address] Care Team Providers Care Slunk Skinner Name Role Phone Unavailable Primary Care Provider Unavailabl e Encounter Details Date Type Department Care Team (Late st Contact Info) Description 10/13/2024 Chart Note [facility] [address] [place] [address] Dian Lea, RN Social History Tobacco Use Types Packs/Day [...] on file Legal Sex Female 1:37 AM CUSTOMS INSPECTOR Gender Identity Not on file Sexual Orientation Not on file documented as of this encounter Progress Notes * Dian Lea, RN - 10/13/2024 1:39 PM CST Met with pt and her today since she finally arrived for radiation treatment today after missing the past few days. Pt has a lot of difficulties with transportation to and from her appointments and treatments here in [place], [place] because she lives 2 hours away and relies on [facility] (medicaid transport). This service has proven to be very unreliable, especially with bad weather. Our SW had made her a reservation at our starting this weekend so that she could just come and stay here throughout her treatment to avoid the transportation issues. However, she wants to stay at home. She also isn't sure she could take care of herself in without her spouse's help. He says hecannot come stay with her because he they have too many animals to care for. SW, provider, and I all discussed with them that priority needed to be made for patient and patient's treatment. is adamant that they have no one else that can care for animals. While here for radiation treatment she had a shortness of breath episode while attempting to lie flat on the treatment table. The nurse's had to put her in a room on oxygen for a while until her breathing returned to normal. became concerned during this episode and told staff that he thinks it is because she is still smoking a Vape at home. Pt said she's tried to quit and cannot. Pt blames anxiety and panic rather than anything physical. She reported she had taken a pain pill and a xanax half an hour before treatment, but is still having trouble lying flat. After calming for a while, they tried RT a 2nd time, and pt again had episode. They gave her a 2nd dose of xanax and gave her some time for it to kick in. Pt and spouse also met with Dr. Dumont today to discuss getting chemo back on track. They also met with our SW today who assisted spouse with calling [facility] and setting up transport. Reviewed the resources [facility] to [facility] and offered to put themin touch with anyone they might wish to speak with such as the riprap placer, social service agency director, or buffer machine. Answered all questions and verified they still have my contact information in case of any future questions/concerns. Reviewed their contact information with them. They state the [phone] number is the correct one, but state it cannot take phone calls or voicemail, only text messages. They request text message communication instead. At the end of the day as they were leaving they stopped by [facility] to ask me about her trache supplies again. They state the ones delivered are not the right size. Asked them AGAIN to please bring us a picture of correct size package or box so we can verify measurements and order more. They state they will bring us a picture Wednesday. OMS INSPECTOR OMS INSPECTOR OMS INSPECTOR documented in this encounter Plan of Treatment Upcoming Encounters Date Type Department Care Team (Late st Contact Info) Description 10/16/2024 11:00 AM CUSTOMS INSPECTOR Appointment [facility] Oncology [address] [place] [address] Rashmi Dumont MD [address] [place] [address] [address] [place] [address] [facility] Oncology, [facility] 8 10/16/2024 1:45 PM CUSTOMS INSPECTOR Appointment [address] [id number] Karla Goldberg MD [address] [place] [phone] 10/17/2024 1:45 PM CUSTOMS INSPECTOR Appointment [address] [place] [address] Karla Goldberg MD [address] [place] [id number] 10/18/2024 1:45 PM CUSTOMS INSPECTOR Appointment [address] [id number] Karla Goldberg MD [address] [place] [phone] 10/19/2024 1:45 PM CUSTOMS INSPECTOR Appointment [facility] [address] [id number] Karla Goldberg MD [address] [place] [id number] 10/20/2024 1:45 PM CUSTOMS INSPECTOR Appointment [address] [id number] Karla Goldberg MD [address] [place] [id number] 10/23/2024 1:45 PM CUSTOMS INSPECTOR Appointment [address] [id number] Karla Goldberg MD [address] [place] [id number] 10/24/2024 11:30 AM CUSTOMS INSPECTOR Office Visit [facility] Nose and Throat Head Neck SGF [address] [place] [address] Chris Flores MD [address] [place] [phone]- 10/24/2024 1:45 PM CUSTOMS INSPECTOR Appointment [address] [id number] Karla Goldberg MD [address] [place] [phone] 10/25/2024 1:45 PM CUSTOMS INSPECTOR Appointment [address] [id number] Karla Goldberg MD [address] [place] [phone] 10/26/2024 1:45 PM CUSTOMS INSPECTOR Appointment [address] [phone] Karla Goldberg MD [address] [place] [phone] 10/27/2024 1:45 PM CUSTOMS INSPECTOR Appointment [address] [id number] Karla Goldberg MD [address] [place] [phone] 10/30/2024 1:45 PM CDT Appointment [address] [id number] Karla Goldberg MD [address] [place] [phone] 10/31/2024 1:45 PM CDT Appointment [address] [id number] Karla Goldberg MD [address] [place] [phone] 11/01/2024 1:45 PM CDT Appointment [address] [id number] Karla Goldberg MD [address] [place] [phone] 11/02/2024 1:45 PM CDT Appointment [address] [id number] Karla Goldberg MD [address] [place] [phone] 11/03/2024 1:45 PM CDT Appointment [address] [id number] Karla Goldberg MD [address] [place] [phone] 11/06/2024 1:45 PM CDT Appointment [address] [id number] Karla Goldberg MD [address] [place] [phone] 11/07/2024 1:45 PM CDT Appointment [address] [id number] Karla Goldberg MD [address] [place] [phone] 11/08/2024 1:45 PM CDT Appointment [address] [id number] Karla Goldberg MD [address] [place] [phone] 11/09/2024 1:45 PM CDT Appointment [address] [id number] Karla Goldberg MD [address] [place] [phone] 11/10/2024 1:45 PM CDT Appointment [address] [id number] Karla Goldberg MD [address] [place] [phone] 11/13/2024 1:45 PM CDT Appointment [address] [id number] Karla Goldberg MD [address] [place] [phone] 11/14/2024 1:45 PM CDT Appointment [address] [id number] Karla Goldberg MD [address] [place] [phone] 11/15/2024 12:45 PM CDT Appointment [address] [id number] Karla Goldberg MD [address] [place] [phone] 11/16/2024 12:45 PM CDT Appointment [address] [id number] Karla Goldberg MD [address] [place] [phone] 11/17/2024 1:45 PM CDT Appointment [address] [id number] Karla Goldberg MD [address] [place] [phone] 11/20/2024 1:45 PM CDT Appointment [address] [id number] Karla Goldberg MD [address] [place] [phone] 11/21/2024 1:45 PM CDT Appointment [address] [id number] Karla Goldberg MD [address] [place] [phone] 11/22/2024 1:45 PM CDT Appointment [address] [id number] Karla Goldberg MD [address] [place] [phone] 11/23/2024 1:45 PM CDT Appointment [address] [id number] Karla Goldberg MD [address] [place] [phone] 11/24/2024 1:45 PM CDT Appointment [address] [id number] Karla Goldberg MD [address] [place] [phone] 11/27/2024 1:45 PM CDT Appointment [address] [id number] Karla Goldberg MD [address] [place] [phone] 11/28/2024 1:45 PM CDT Appointment [address] [id number] Karla Goldberg MD [address] [place] [phone] documented as of this encounter Visit Diagnoses Not on filedocumented in this encounter Additional Health Concerns Assessment Noted Time PHQ-9 Depression Total Score: 1 04/20/20 24 11:16 PM CDT documented as of this encounter
--- OUTSIDE RECORDS SUMMARY | 2024-10-14 10:34 | XMS_ITS | Encounter Summary ---
Author Organization [facility] Address [address] [place] [address] Care Team Providers Care Cat Scan Technologist Name Role Phone Unavailable Primary Care Provider Unavailabl e Encounter Details Date Type Department Care Team (Late Contact Info) Description 10/09/2024 External Device Data STL ABSTRACTION Provider, [...] on file Legal Sex Female 1:37 AM SHAFT TENDER Gender Identity Not on file Sexual Orientation Not on file documented as of this encounter Plan of Treatment Upcoming Encounters Date Type Department Care Team (Late Contact Info) Description 10/16/2024 11:00 AM SHAFT TENDER Appointment [facility] [address] [facility] [address] [place] [address] Rashmi Dumont MD [address] [facility] [address] [place] [address] [facility] Oncology, Infusion 8 10/16/2024 1:45 PM SHAFT TENDER Appointment [address] [id number] Karla Goldberg MD [address] [place] [phone] 10/17/2024 1:45 PM SHAFT TENDER Appointment [address] [id number] Karla Goldberg MD [address] [place] [phone] 10/18/2024 1:45 PM SHAFT TENDER Appointment [address] [id number] Karla Goldberg MD [address] [place] [phone] 10/19/2024 1:45 PM SHAFT TENDER Appointment [address] [id number] Karla Goldberg MD [address] [place] [phone] 10/20/2024 1:45 PM SHAFT TENDER Appointment [address] [id number] Karla Goldberg MD [address] [place] [phone] 10/23/2024 1:45 PM SHAFT TENDER Appointment [address] [id number] Karla Goldberg MD [address] [place] [phone] 10/24/2024 11:30 AM SHAFT TENDER Office Visit [facility] Ear Nose and Throat Head Neck SGF [address] [place] [address] Chris Flores MD [address] [place] [address] 10/24/2024 1:45 PM SHAFT TENDER Appointment [address] [address] Karla Goldberg MD [address] [place] [phone] 10/25/2024 1:45 PM SHAFT TENDER Appointment [address] [id number] Karla Goldberg MD [address] [place] [phone] 10/26/2024 1:45 PM SHAFT TENDER Appointment [address] [id number] Karla Goldberg MD [address] [place] [phone] 10/27/2024 1:45 PM SHAFT TENDER Appointment [address] [id number] Karla Goldberg MD [address] [place] [phone] 10/30/2024 1:45 PM CDT Appointment [address] [address] Karla Goldberg MD [address] [place] [phone] 10/31/2024 1:45 PM CDT Appointment [address] [id number] Karla Goldberg MD [address] [place] [phone] 11/01/2024 1:45 PM CDT Appointment [address] [id number] Karla Goldberg MD [address] [place] [phone] 11/02/2024 1:45 PM CDT Appointment [address] [id number] Karla Goldberg MD [address] [place] [phone] 11/03/2024 1:45 PM CDT Appointment [address] [id number] Karla Goldberg MD [address] [place] [phone] 11/06/2024 1:45 PM CDT Appointment [address] [id number] Karla Goldberg MD [address] [place] [phone] 11/07/2024 1:45 PM CDT Appointment [address] [phone] Karla Goldberg MD [address] [place] [phone] 11/08/2024 1:45 PM CDT Appointment [address] [id number] Karla Goldberg MD [address] [place] [phone] 11/09/2024 1:45 PM CDT Appointment [address] [id number] Karla Goldberg MD [address] [place] [phone] 11/10/2024 1:45 PM CDT Appointment [address] [address] Karla Goldberg MD [address] [place] [phone] 11/13/2024 1:45 PM CDT Appointment [address] [address] Karla Goldberg MD [address] [place] [phone] 11/14/2024 1:45 PM CDT Appointment [address] [id number] Karla Goldberg MD [address] [place] [phone] 11/15/2024 12:45 PM CDT Appointment [address] [id number] Karla Goldberg MD [address] [place] [phone] 11/16/2024 12:45 PM CDT Appointment [address] [address] Karla Goldberg MD [address] [place] [phone] 11/17/2024 1:45 PM CDT Appointment [address] [address] Karla Goldberg MD [address] [place] [phone] 11/20/2024 1:45 PM CDT Appointment [address] [address] Karla Goldberg MD [address] [place] [phone] 11/21/2024 1:45 PM CDT Appointment [address] [address] Karla Godlberg MD [address] [place] [phone] 11/22/2024 1:45 PM CDT Appointment [address] [address] Karla Goldberg MD [address] [place] [phone] 11/23/2024 1:45 PM CDT Appointment [address] [address] Karla Goldberg MD [address] [place] [phone] 11/24/2024 1:45 PM CDT Appointment [address] [id number] Karla Goldberg MD [address] [place] [phone] 11/27/2024 1:45 PM CDT Appointment [address] [address] Karla Goldberg MD [address] [place] [phone] 11/28/2024 1:45 PM CDT Appointment [address] [id number] Karla Goldberg MD [address] [place] [phone] documented as of this encounter Visit Diagnoses Not on filedocumented in this encounter Additional Health Concerns Infection Onset Date Last Indicated Resolved Time Respiratory Syncytial Virus (RSV) 09/14/2024 025 10/12/2024 1:16 AM SHAFT TENDER Assessment Noted Time PHQ-9 Depression Total Score: 1 04/20/20 24 11:16 PM CDT documented as of this encounter
--- OUTSIDE RECORDS SUMMARY | 2024-10-14 10:34 | XMS_ITS | Encounter Summary ---
Author Organization [facility] Address [address] [place] [address] Care Team Providers Care Carbon Brusher Assembler Name Role Phone Unavailable Primary Care Provider Unavailabl e Encounter Details Date Type Department Care Team (Late Contact Info) Description 10/07/2024 External Device Data STL ABSTRACTION Provider, [...] on file Legal Sex Female 1:37 AM AURIST Gender Identity Not on file Sexual Orientation Not on file documented as of this encounter Plan of Treatment Upcoming Encounters Date Type Department Care Team (Late Contact Info) Description 10/16/2024 11:00 AM AURIST Appointment [facility] Oncology [facility] [address] [facility] [address] [place] [address] Rashmi Dumont MD [address] [facility] [address] [place] [address] [facility] Oncology, Infusion 8 10/16/2024 1:45 PM AURIST Appointment [address] [id number] Karla Goldberg MD [address] [place] [phone] 10/17/2024 1:45 PM AURIST Appointment [address] [id number] Karla Goldberg MD [address] [place] [phone] 10/18/2024 1:45 PM AURIST Appointment [address] [address] Karla Goldberg MD [address] [place] [phone] 10/19/2024 1:45 PM AURIST Appointment [address] [id number] Karla Goldberg MD [address] [place] [phone] 10/20/2024 1:45 PM AURIST Appointment [address] [address] Karla Goldberg MD [address] [place] [phone] 10/23/2024 1:45 PM AURIST Appointment [address] [address] Karla Goldberg MD [address] [place] [phone] 10/24/2024 11:30 AM AURIST Office Visit [facility] Ear Nose and Throat Head Neck SGF [address] [place] [address] Chris Flores MD [address] [place] [address] 10/24/2024 1:45 PM AURIST Appointment [address] [id number] Karla Goldberg MD [address] [place] [phone] 10/25/2024 1:45 PM AURIST Appointment [address] [address] Karla Goldberg MD [address] [place] [phone] 10/26/2024 1:45 PM AURIST Appointment [address] [address] Karla Goldberg MD [address] [place] [phone] 10/27/2024 1:45 PM AURIST Appointment [address] [address] Karla Goldberg MD [address] [place] [phone] 10/30/2024 1:45 PM CDT Appointment [address] [address] Karla Goldberg MD [address] [place] [phone] 10/31/2024 1:45 PM CDT Appointment [address] [address] Karla Goldberg MD [address] [place] [phone] 11/01/2024 1:45 PM CDT Appointment [address] [address] Karla Goldberg MD [address] [place] [phone] 11/02/2024 1:45 PM CDT Appointment [address] [id number] Karla Goldberg MD [address] [place] [phone] 11/03/2024 1:45 PM CDT Appointment [address] [address] Karla Goldberg MD [address] [place] [phone] 11/06/2024 1:45 PM CDT Appointment [address] [id number] Karla Goldberg MD [address] [place] [phone] 11/07/2024 1:45 PM CDT Appointment [address] [phone] Karla Goldberg MD [address] [place] [phone] 11/08/2024 1:45 PM CDT Appointment [address] [address] Karla Goldberg MD [address] [place] [phone] 11/09/2024 1:45 PM CDT Appointment [address] [address] Karla Goldberg MD [address] [place] [phone] 11/10/2024 1:45 PM CDT Appointment [address] [id number] Karla Goldberg MD [address] [place] [phone] 11/13/2024 1:45 PM CDT Appointment [address] [address] Karla Goldberg MD [address] [place] [phone] 11/14/2024 1:45 PM CDT Appointment [address] [address] Karla Goldberg MD [address] [place] [phone] 11/15/2024 12:45 PM CDT Appointment [address] [address] Karla Goldberg MD [address] [place] [phone] 11/16/2024 12:45 PM CDT Appointment [address] [id number] Karla Goldberg MD [address] [place] [phone] 11/17/2024 1:45 PM CDT Appointment [address] [id number] Karla Goldberg MD [address] [place] [phone] 11/20/2024 1:45 PM CDT Appointment [address] [id number] Karla Goldberg MD [address] [place] [phone] 11/21/2024 1:45 PM CDT Appointment [address] [id number] Karla Goldberg MD [address] [place] [phone] 11/22/2024 1:45 PM CDT Appointment [address] [id number] Karla Goldberg MD [address] [place] [phone] 11/23/2024 1:45 PM CDT Appointment [address] [id number] Karla Goldberg MD [address] [place] [phone] 11/24/2024 1:45 PM CDT Appointment [address] [id number] Karla Goldberg MD [address] [place] [phone] 11/27/2024 1:45 PM CDT Appointment [address] [id number] Karla Goldberg MD [address] [place] [phone] 11/28/2024 1:45 PM CDT Appointment [address] [id number] Karla Goldberg MD [address] [place] [phone] documented as of this encounter Visit Diagnoses Not on filedocumented in this encounter Additional Health Concerns Infection Onset Date Last Indicated Resolved Time Respiratory Syncytial Virus (RSV) 09/14/2024 025 10/12/2024 1:16 AM AURIST Assessment Noted Time PHQ-9 Depression Total Score: 1 04/20/20 24 11:16 PM CDT documented as of this encounter
--- OUTSIDE RECORDS SUMMARY | 2024-10-14 10:34 | XMS_ITS | Encounter Summary ---
Author Organization [facility] Address [address] [place] [address] Care Team Providers Care Honey Blender Name Role Phone Unavailable Primary Care Provider Unavailabl e Encounter Details Date Type Department Care Team (Late Contact Info) Description 10/13/2024 Orders Only [facility] Cancer and Hematology [facility] [address] [place] [address] Rashmi Dumont MD [address] [place] [address] Laryngeal squamous cell carcinoma (CMS/HCC) [...] on file Legal Sex Female 1:37 AM CYLINDER MACHINE OPERATOR PULP DRIER Gender Identity Not on file Sexual Orientation Not on file documented as of this encounter Plan of Treatment Upcoming Encounters Date Type Department Care Team (Late Contact Info) Description 10/16/2024 11:00 AM CYLINDER MACHINE OPERATOR PULP DRIER Appointment [facility] [address] [place] [address] Rashmi Dumont MD [address] [place] [address] [address] [place] [address] [facility] Oncology, Infusion 8 10/16/2024 1:45 PM CYLINDER MACHINE OPERATOR PULP DRIER Appointment [address] [phone] Karla Goldberg MD [address] [place] [phone] 10/17/2024 1:45 PM CYLINDER MACHINE OPERATOR PULP DRIER Appointment [address] [phone] Karla Goldberg MD [address] [place] [phone] 10/18/2024 1:45 PM CYLINDER MACHINE OPERATOR PULP DRIER Appointment [address] [address] Karla Goldberg MD [address] [place] [phone] 10/19/2024 1:45 PM CYLINDER MACHINE OPERATOR PULP DRIER Appointment [address] [phone] Karla Goldberg MD [address] [place] [phone] 10/20/2024 1:45 PM CYLINDER MACHINE OPERATOR PULP DRIER Appointment [address] [phone] Karla Goldberg MD [address] [place] [phone] 10/23/2024 1:45 PM CYLINDER MACHINE OPERATOR PULP DRIER Appointment [address] [phone] Karla Goldberg MD [address] [place] [phone] 10/24/2024 11:30 AM CYLINDER MACHINE OPERATOR PULP DRIER Office Visit [facility] N[facility] [address] [place] [phone] Chris Flores MD [address] [place] [phone] 10/24/2024 1:45 PM CYLINDER MACHINE OPERATOR PULP DRIER Appointment [address] [phone] Karla Goldberg MD [address] [place] [phone] 10/25/2024 1:45 PM CYLINDER MACHINE OPERATOR PULP DRIER Appointment [address] [address] Karla Goldberg MD [address] [place] [phone] 10/26/2024 1:45 PM CYLINDER MACHINE OPERATOR PULP DRIER Appointment [address] [phone] Karla Goldberg MD [address] [place] [phone] 10/27/2024 1:45 PM CYLINDER MACHINE OPERATOR PULP DRIER Appointment [facility] [address] [address] Karla Goldberg MD [address] [place] [phone] 10/30/2024 1:45 PM CDT Appointment [address] [phone] Karla Goldberg MD [address] [place] [phone] 10/31/2024 1:45 PM CDT Appointment [address] [phone] Karla Goldberg MD [address] [place] [phone] 11/01/2024 1:45 PM CDT Appointment [address] [address] Karla Goldberg MD [address] [place] [phone] 11/02/2024 1:45 PM CDT Appointment [address] [phone] Karla Goldberg MD [address] [place] [phone] 11/03/2024 1:45 PM CDT Appointment [address] [address] Karla Goldberg MD [address] [place] [phone] 11/06/2024 1:45 PM CDT Appointment [address] [phone] Karla Goldberg MD [address] [place] [phone] 11/07/2024 1:45 PM CDT Appointment [address] [phone] Karla Goldberg MD [address] [place] [phone] 11/08/2024 1:45 PM CDT Appointment [address] [phone] Karla Goldberg MD [address] [place] [phone] 11/09/2024 1:45 PM CDT Appointment [address] [address] Karla Goldberg MD [address] [place] [phone] 11/10/2024 1:45 PM CDT Appointment [address] [phone] Karla Goldberg MD [address] [place] [phone] 11/13/2024 1:45 PM CDT Appointment [address] [phone] Karla Goldberg MD [address] [place] [phone] 11/14/2024 1:45 PM CDT Appointment [address] [phone] Karla Goldberg MD [address] [place] [phone] 11/15/2024 12:45 PM CDT Appointment [address] [phone] Karla Goldberg MD [address] [place] [phone] 11/16/2024 12:45 PM CDT Appointment [address] [phone] Karla Goldberg MD [address] [place] [phone] 11/17/2024 1:45 PM CDT Appointment [address] [phone] Karla Goldberg MD [address] [place] [phone] 11/20/2024 1:45 PM CDT Appointment [address] [phone] Karla Goldberg MD [address] [place] [phone] 11/21/2024 1:45 PM CDT Appointment [address] [phone] Karla Goldberg MD [address] [place] [phone] 11/22/2024 1:45 PM CDT Appointment [address] [phone] Karla Goldberg MD [address] [place] [phone] 11/23/2024 1:45 PM CDT Appointment [address] [phone] Karla Goldberg MD [address] [place] [phone] 11/24/2024 1:45 PM CDT Appointment [address] [phone] Karla Goldberg MD [address] [place] [phone] 11/27/2024 1:45 PM CDT Appointment [address] [phone] Karla Goldberg MD [address] [place] [phone] 11/28/2024 1:45 PM CDT Appointment [facility] [address] [place] [address] Karla Goldberg MD [address]54 [place] [address] documented as of this encounter Procedures Procedure Name Priority Date/Time Associated Diagnosis Comments CBC WITH DIFFERENTIAL Stat 10/13/2024 3:12 PM CYLINDER MACHINE OPERATOR PULP DRIER Laryngeal squamous cell carcinoma (CMS/HCC) MAGNESIUM LEVEL Stat 10/13/2024 3:12 PM CYLINDER MACHINE OPERATOR PULP DRIER Laryngeal squamous cell carcinoma (CMS/HCC) COMPREHENSIVE METABOLIC PANEL Stat 10/13/2024 3:12 PM CYLINDER MACHINE OPERATOR PULP DRIER Laryngeal squamous cell carcinoma (CMS/HCC) documented in this encounter Results * MAGNESIUM LEVEL (10/13/2024 3:12 PM CYLINDER MACHINE OPERATOR PULP DRIER) MAGNESIUM 2.2 1.6 - 2.6 mg/dL 10/13/2024 3:48 PM CYLINDER MACHINE OPERATOR PULP DRIER [facility] Blood Venipuncture / Unknown 10/13/2024 3:12 PM CYLINDER MACHINE OPERATOR PULP DRIER 10/13/2024 3:22 PM CYLINDER MACHINE OPERATOR PULP DRIER Rashmi Dumont MD CHEMISTRY ORDERABLES Yareli l Result [facility] CLIA# [id number] [phone] [place] [address] * (ABNORMAL) COMPREHENSIVE METABOLIC PANEL (10/13/2024 3:12 PM CYLINDER MACHINE OPERATOR PULP DRIER) SODIUM 136 136 - 145 mmol/L 10/13/2024 3:48 PM CYLINDER MACHINE OPERATOR PULP DRIER [facility] [place] POTASSIUM 4.5 3.5 - 5.1 mmol/L 10/13/2024 3:48 PM CYLINDER MACHINE OPERATOR PULP DRIER [facility] [place] CHLORIDE 96(L) 98 - 107 mmol/L 10/13/2024 3:[address] [facility] [place] CO2 27 22 - 29 mmol/L 10/13/2024 3:[address] [facility] [place] CALCIUM 9.3 8.6 - 10.0 mg/dL 10/13/2024 3:[address] [facility] [place] BUN 52(H) 6 - 20 mg/dL 10/13/2024 3:[address] [facility] [place] CREATININE 1.47(H) 0.51 - 0.95 mg/dL 10/13/2024 3:[address] [facility] [place] GLUCOSE 114(H) 74 - 99 mg/dL 10/13/2024 3:[address] [facility] [place] TOTAL PROTEIN 7.3 6.4 - 8.3 g/dL 10/13/2024 3:[address] [facility] [place] ALBUMIN 3.6 3.5 - 5.2 g/dL 10/13/2024 3:[address] [facility] [place] BILIRUBIN TOTAL 0.3 0.2 - 1.0 mg/dL 10/13/2024 3:[address] [facility] [place] ALKALINE PHOSPHATASE 75 35 - 104 U/L 10/13/2024 3:[address] [facility] [place] AST 34(H) <=33 U/L 10/13/2024 3:[address] [facility] [place] ALT 27 <=33 U/L 10/13/2024 3:[address] [facility] [place] GFR 43(L) >=60 mL/min/1.7 3 sq meter 10/13/2024 3:[address] [facility] [place] Comment:eGFR calculated with 2020 CKD-EPI equation. Vegetarian diet, extremely high or low muscle mass, and may affect results. Cystatin C with Glomerular Filtration Rate is a suitable alternative for these patients. [place] GAP 13 9 - 20 mmol/L 10/13/2024 3:[address] [facility] [place] Blood Venipuncture / Unknown 10/13/2024 3:12 PM CYLINDER MACHINE OPERATOR PULP DRIER 10/13/2024 3:22 PM CYLINDER MACHINE OPERATOR PULP DRIER us Rashmi Dumont MD CHEMISTRY ORDERABLES Yareli lband Result [facility] [place] CLIA# [id number] [phone] [place] [address] * (ABNORMAL) CBC WITH DIFFERENTIAL (10/13/2024 3:12 PM CYLINDER MACHINE OPERATOR PULP DRIER) WBC 13.4(H) 4.8 - 10.8 K/uL 10/13/2024 3:28 PM CYLINDER MACHINE OPERATOR PULP DRIER [facility] [place] RBC 4.57 4.20 - 5.40 M/uL 10/13/2024 3:[address] [facility] [place] HEMOGLOBIN 13.9 12.0 - 16.0 g/dL 10/13/2024 3:[address] [facility] [place] HEMATOCRIT 41.9 36.0 - 46.0 % 10/13/2024 3:[address] [facility] [place] MCV 91.7 82.0 - 100.0 fL 10/13/2024 3:[address] [facility] [place] MCH 30.4 27.0 - 34.0 pg 10/13/2024 3:[address] [facility] [place] MCHC 33.2 31.0 - 37.0 g/dL 10/13/2024 3:[address] [facility] [place] RDW 14.5 11.0 - 14.5 % 10/13/2024 3:[address] [facility] [place] RDW-STDEV 47.1 37.0 - 54.0 fL 10/13/2024 3:[address] [facility] [place] PLATELETS 265 140 - 440 K/uL 10/13/2024 3:[address] [facility] [place] MPV 9.5 8.9 - 12.8 fL 10/13/2024 3:[address] [facility] [place] NEUTROPHILS 78(H) 42 - 75 % 10/13/2024 3:28 PM CYLINDER MACHINE OPERATOR PULP DRIER [facility] [place] LYMPHOCYTES 13(L) 24 - 44 % 10/13/2024 3:[address] [facility] [place] MONOCYTES 7 2 - 10 % 10/13/2024 3:[address] [facility] [place] EOSINOPHILS 1 0 - 7 % 10/13/2024 3:[address] [facility] [place] BASOPHILS 0 0 - 1 % 10/13/2024 3:[address] [facility] [place] IMMATURE GRANULOCYTES 1 0 - 2 % 10/13/2024 3:[address] [facility] [place] NEUTROPHIL ABSOLUTE 10.45(H) 1.40 - 6.50 K/uL 10/13/2024 3:[address] [facility] [place] LYMPHOCYTE ABSOLUTE 1.69 1.20 - 4.00 K/uL 10/13/2024 3:[address] [facility] [place] MONOCYTE ABSOLUTE 0.99(H) 0.10 - 0.60 K/uL 10/13/2024 3:[address] [facility] [place] EOSINOPHIL ABSOLUTE 0.09 0.00 - 0.70 K/uL 10/13/2024 3:[address] [facility] [place] BASOPHILS ABSOLUTE 0.02 0.00 - 0.20 K/uL 10/13/2024 3:[address] [facility] [place] IMMATURE GRANULOCYTES ABSOLUTE 0.14(H) 0.00 - 0.10 K/uL 10/13/2024 3:[address] [facility] [place] Blood Venipuncture / Unknown 10/13/2024 3:12 PM CYLINDER MACHINE OPERATOR PULP DRIER 10/13/2024 3:22 PM CYLINDER MACHINE OPERATOR PULP DRIER us Rashmi Dumont MD HEMATOLOGY ORDERABLES Fin al Result [facility] [place] CLIA# [id number] [phone] [place] [address] documented in this encounter Visit Diagnoses Diagnosis 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
--- OUTSIDE RECORDS SUMMARY | 2024-10-14 10:35 | XMS_ITS | Encounter Summary ---
Author Organization [facility] Address [address] [place] [address] Care Team Providers Care Family Psychologist Name Role Phone Anu Thompson DO Primary Care Provider Encounter Details Date Type Department Care Team (Late st Contact Info) Description 09/14/2024 External Device Data STL ABSTRACTION Provider, [...] on file Legal Sex Female 1:37 AM AUTOMOTIVE SALES EXECUTIVE Gender Identity Not on file Sexual Orientation Not on file documented as of this encounter Plan of Treatment Upcoming Encounters Date Type Department Care Team (Late st Contact Info) Description 10/16/2024 11:00 AM AUTOMOTIVE SALES EXECUTIVE Appointment [facility] [address] [facility] [address] [place] [address] Rashmi Dumont MD [address] [facility] [address] [place] [address] Sprg Oncology, Infusion 8 10/16/2024 1:45 PM AUTOMOTIVE SALES EXECUTIVE Appointment [address] [address] Karla Goldberg MD [address] [place] [phone] 10/17/2024 1:45 PM AUTOMOTIVE SALES EXECUTIVE Appointment [address] [address] Karla Goldberg MD [address] [place] [phone] 10/18/2024 1:45 PM AUTOMOTIVE SALES EXECUTIVE Appointment [address] [address] Karla Goldberg MD [address] [place] [phone] 10/19/2024 1:45 PM AUTOMOTIVE SALES EXECUTIVE Appointment [address] [address] Karla Goldberg MD [address] [place] [phone] 10/20/2024 1:45 PM AUTOMOTIVE SALES EXECUTIVE Appointment [address] [address] Karla Goldberg MD [address] [place] [phone] 10/23/2024 1:45 PM AUTOMOTIVE SALES EXECUTIVE Appointment [address] [phone] Karla Goldberg MD [address] [place] [phone] 10/24/2024 11:30 AM AUTOMOTIVE SALES EXECUTIVE Office Visit [facility] Ear Nose and Thro[facility] Head Neck [facility] [address] [place] [address] Chris Flores MD [address] [place] [address] [phone]- 10/24/2024 1:45 PM AUTOMOTIVE SALES EXECUTIVE Appointment [address] [address] Karla Goldberg MD [address] [place] [phone] 10/25/2024 1:45 PM AUTOMOTIVE SALES EXECUTIVE Appointment [address] [address] Karla Goldberg MD [address] [place] [phone] 10/26/2024 1:45 PM AUTOMOTIVE SALES EXECUTIVE Appointment [address] [address] Karla Goldberg MD [address] [place] [phone] 10/27/2024 1:45 PM AUTOMOTIVE SALES EXECUTIVE Appointment [address] [address] Karla Goldberg MD [address] [place] [phone] 10/30/2024 1:45 PM CDT Appointment [address] [address] Karla Goldberg MD [address] [place] [phone] 10/31/2024 1:45 PM CDT Appointment [address] [address] Karla Goldberg MD [address] [place] [phone] 11/01/2024 1:45 PM CDT Appointment [address] [address] Karla Goldberg MD [address] [place] [phone] 11/02/2024 1:45 PM CDT Appointment [address] [address] Karla Goldberg MD [address] [place] [phone] 11/03/2024 1:45 PM CDT Appointment [address] [address] Karla Goldberg MD [address] [place] [phone] 11/06/2024 1:45 PM CDT Appointment [address] [address] Karla Goldberg MD [address] [place] [phone] 11/07/2024 1:45 PM CDT Appointment [address] [address] Karla Goldberg MD [address] [place] [phone] 11/08/2024 1:45 PM CDT Appointment [address] [address] Karla Goldberg MD [address] [place] [phone] 11/09/2024 1:45 PM CDT Appointment [address] [address] Karla Goldberg MD [address] [place] [phone] 11/10/2024 1:45 PM CDT Appointment [address] [address] Karla Goldberg MD [address] [place] [phone] 11/13/2024 1:45 PM CDT Appointment [address] [address] Karla Goldberg MD [address] [place] [phone] 11/14/2024 1:45 PM CDT Appointment [address] [address] Karla Goldberg MD [address] [place] [phone] 11/15/2024 12:45 PM CDT Appointment [address] [address] Karla Goldberg MD [address] [place] [phone] 11/16/2024 12:45 PM CDT Appointment [address] [address] Karla Goldberg MD [address] [place] [phone] 11/17/2024 1:45 PM CDT Appointment [address] [address] Karla Goldberg MD [address] [place] [phone] 11/20/2024 1:45 PM CDT Appointment [address] [address] Karla Goldberg MD [address] [place] [phone] 11/21/2024 1:45 PM CDT [address]ointment [address] [place] [address] Karla Goldberg MD [address] [place] [phone] 11/22/2024 1:45 PM CDT Appointment [address] [address] Karla Goldberg MD [address] [place] [phone] 11/23/2024 1:45 PM CDT Appointment [address] [address] Karla Goldberg MD [address] [place] [phone] 11/24/2024 1:45 PM CDT Appointment [address] [address] Karla Goldberg MD [address] [place] [phone] 11/27/2024 1:45 PM CDT Appointment [address] [address] Karla Goldberg MD [address] [place] [phone] 11/28/2024 1:45 PM CDT Appointment [address] [address] Karla Goldberg MD [address] [place] [phone] documented as of this encounter Visit Diagnoses Not on filedocumented in this encounter Additional Health Concerns Infection Onset Date Last Indicated Resolved Time Respiratory Syncytial Virus (RSV) 09/14/2024 025 10/12/2024 1:16 AM AUTOMOTIVE SALES EXECUTIVE Assessment Noted Time PHQ-9 Depression Total Score: 1 04/20/20 24 11:16 PM CDT documented as of this encounter Care Teams Family Psychologist Relationship Specialty Start Date End Date Anu Thompson DO [address] [place] [phone] PCP - General Family Practice 07/21/23 09/17/24 documented as of this encounter
--- OUTSIDE RECORDS SUMMARY | 2024-10-14 10:35 | XMS_ITS | Encounter Summary ---
Author Organization [facility] Address [address] [place] [address] Care Team Providers Care Turntable Engineer Name Role Phone Unavailable Primary Care Provider Unavailabl e Reason for Visit * Reason Onset Date Comments Nurse Navigation 10/02/2024 Encounter Details Date Type Department Care Team (Late st Contact Info) Description 10/02/2024 Telephone [facility] [address] [facility] [place] [address] [place] [address] Dian Lea, RN Nurse Navigation Social History Tobacco Use Types Packs/Day Years [...] on file Legal Sex Female 1:37 AM MECHATRONICS ENGINEER Gender Identity Not on file Sexual Orientation Not on file documented as of this encounter Miscellaneous Notes * Telephone Encounter - Dian Lea RN - 10/02/2024 11:25 AM CST Attempted to contact the patient and her spouse regarding her discharge, her upcoming treatment start, and plans for where she is going to stay throughout treatment. No answer on phone, no voicemail has been set up. Was able to get amberly of their neighbor whose number is still listed as the patient's primary number, and provided him with my contact information and asked him to ask them to call me back. ATRONICS ENGINEER documented in this encounter Plan of Treatment Upcoming Encounters Date Type Department Care Team (Late st Contact Info) Description 10/16/2024 11:00 AM MECHATRONICS ENGINEER Appointment [facility] Oncology [facility] [[email or web address] [address] [place] [address] [address] [place] [address] Rashmi Dumont MD [address] [place] [address] [address] [place] [address] [facility] ([place], [place]) Oncology, [facility] 8 10/16/2024 1:45 PM MECHATRONICS ENGINEER Appointment [address] [place] [address] Karla Goldberg MD [address] [place] [phone] 10/17/2024 1:45 PM MECHATRONICS ENGINEER Appointment [address] [place] [address] Karla Goldberg MD [address] [place] [phone] 10/18/2024 1:45 PM MECHATRONICS ENGINEER Appointment [address] [address] Karla Goldberg MD [address] [place] [phone] 10/19/2024 1:45 PM MECHATRONICS ENGINEER Appointment [address] [phone] Karla Goldberg MD [address] [place] [phone] 10/20/2024 1:45 PM MECHATRONICS ENGINEER Appointment [address] [id number] Karla Goldberg MD [address] [place] [phone] 10/23/2024 1:45 PM MECHATRONICS ENGINEER Appointment [address] [phone] Karla Goldberg MD [address] [place] [phone] 10/24/2024 11:30 AM MECHATRONICS ENGINEER Office Visit [facility] [address] [place] [phone] Chris Flores MD [address] [place] [address]- 10/24/2024 1:45 PM MECHATRONICS ENGINEER Appointment [address] [phone] Karla Goldberg MD [address] [place] [phone] 10/25/2024 1:45 PM MECHATRONICS ENGINEER Appointment [address] [address] Karla Goldberg MD [address] [place] [phone] 10/26/2024 1:45 PM MECHATRONICS ENGINEER Appointment [address] [address] Karla Goldberg MD [address] [place] [phone] 10/27/2024 1:45 PM MECHATRONICS ENGINEER Appointment [address] [address] Karla Goldberg MD [address] [place] [phone] 10/30/2024 1:45 PM CDT Appointment [address] [address] Karla Golbderg MD [address] [place] [phone] 10/31/2024 1:45 PM CDT Appointment [address] [address] Karla Goldberg MD [address] [place] [phone] 11/01/2024 1:45 PM CDT Appointment [address] [address] Karla Goldberg MD [address] [place] [phone] 11/02/2024 1:45 PM CDT Appointment [address] [phone] Karla Goldberg MD [address] [place] [phone] 11/03/2024 1:45 PM CDT Appointment [address] [phone] Karla Goldberg MD [address] [place] [phone] 11/06/2024 1:45 PM CDT Appointment [address] [address] Karla Goldberg MD [address] [place] [phone] 11/07/2024 1:45 PM CDT Appointment [address] [phone] Karla Goldberg MD [address] [place] [phone] 11/08/2024 1:45 PM CDT Appointment [address] [phone] Karla Goldberg MD [address] [place] [phone] 11/09/2024 1:45 PM CDT Appointment [address] [phone] Karla Goldberg MD [address] [place] [phone] 11/10/2024 1:45 PM CDT Appointment [address] [phone] Karla Goldberg MD [address] [place] [phone] 11/13/2024 1:45 PM CDT Appointment [address] [address] Karla Goldberg MD [address] [place] [phone] 11/14/2024 1:45 PM CDT Appointment [address] [phone] Karla Goldberg MD [address] [place] [phone] 11/15/2024 12:45 PM CDT Appointment [address] [phone] Karla Goldberg MD [address] [place] [phone] 11/16/2024 12:45 PM CDT Appointment [address] [address] Karla Goldberg MD [address] [place] [phone] 11/17/2024 1:45 PM CDT Appointment [place] [address] [place] [address] Karla Goldberg MD [address] [place] [phone] 11/20/2024 1:45 PM CDT Appointment [address] [address] Karla Goldberg MD [address] [place] [phone] 11/21/2024 1:45 PM CDT Appointment [address] [address] Karla Goldberg MD [address] [place] [phone] 11/22/2024 1:45 PM CDT Appointment [address] [address] Karla Goldberg MD [address] [place] [phone] 11/23/2024 1:45 PM CDT Appointment [address] [address] Karla Goldberg MD [address] [place] [phone] 11/24/2024 1:45 PM CDT Appointment [address] [address] Karla Goldberg MD [address] [place] [phone] 11/27/2024 1:45 PM CDT Appointment [place] [address] [address] Karla Goldberg MD [address] [place] [phone] 11/28/2024 1:45 PM CDT Appointment [facility] [address] [address] Karla Goldberg MD [address] [place] [phone] documented as of this encounter Visit Diagnoses Not on filedocumented in this encounter Additional Health Concerns Infection Onset Date Last Indicated Resolved Time Respiratory Syncytial Virus (RSV) 09/14/2024 025 10/12/2024 1:16 AM MECHATRONICS ENGINEER Assessment Noted Time PHQ-9 Depression Total Score: 1 04/20/20 24 11:16 PM CDT documented as of this encounter
--- OUTSIDE RECORDS SUMMARY | 2024-10-14 10:35 | XMS_ITS | Encounter Summary ---
Author Organization [facility] Address [address] [place] [address] Care Team Providers Care Bellhop Name Role Phone Unavailable Primary Care Provider Unavailabl e Reason for Visit * Radiation Therapy (Routine) - Authorized Specialty Diagnoses / Procedures Referred By Contac t Referred To Contact Radiation Oncology Diagnoses Carcinoma larynx (CMS/HCC) Procedures [place] OFFICE/OUTPATIENT ESTABLISHED MOD MDM 30 MIN [place] OFFICE/OUTPATIENT NEW MODERATE MDM 45 MINUTES 47132, [address], [address], [address], 11845*2, 92721*2, 44724*35, 87125*35, 99910*7, 35651*7 Chris Flores MD [address] [address] Phone: tel: fax: Karla Goldberg MD [address] [place] [address] Phone: tel: fax: Referral ID Status Reason Start Date Expiration Date V isits Requested Visits Authorized [id number] Authorized 06/22/2024 06/22/2025 50 50 Encounter Details Date Type Department Care Team (Latest Contact Info) Description 10/05/2024 1:[address] ROLLER ENGINEER - 10/05/2024 11:[address] ROLLER ENGINEER Hospital Encounter [facility] Radiation Oncology Cancer Center [address] [facility] [address] [place] [phone] Karla Goldberg MD [address] [place] [address] Discharge Disposition: Home or Self [...] on file Legal Sex Female 1:[address] ROLLER ENGINEER Gender Identity Not on file Sexual [...] 20 Tablet 10/05/2024 naloxone (NARCAN) 4 mg/spray [place], Non-Aerosol EMERGENCY USE ONLY: Administer 1 spray (4 mg) in one nostril one time. May repeat in alternating nostrils every 2-3 min until responsive or EMS arrives. 2 Each 3 09/28/2024 5:[address] ROLLER ENGINEER 09/28/2024 trach supplies Surgery Date: 09/17/2025 Length [...] 14 days. 28 Tablet 09/28/2024 5:[address] ROLLER ENGINEER 09/28/2024 5 documented as of this encounter Plan of Treatment Upcoming Encounters Date Type Department Care Team (Late st Contact Info) Description 10/16/2024 11:[address] ROLLER ENGINEER Appointment [facility] [address] [facility] [address] [place] [address] Rashmi Dumont MD [address] [address] [facility] Oncology, Infusion 8 10/16/2024 1:[address] ROLLER ENGINEER Appointment [address] [address] Karla Goldberg MD [address] [place] [phone] 10/17/2024 1:[address] ROLLER ENGINEER Appointment [address] [address] Karla Goldberg MD [address] [place] [phone] 10/18/2024 1:[address] ROLLER ENGINEER Appointment [address] [address] Karla Goldberg MD [address] [place] [phone] 10/19/2024 1:[address] ROLLER ENGINEER Appointment [address] [address] Karla Goldberg MD [address] [place] [phone] 10/20/2024 1:[address] ROLLER ENGINEER Appointment [address] [address] Karla Goldberg MD [address] [place] [phone] 10/23/2024 1:[address] ROLLER ENGINEER Appointment [address] [address] Karla Goldberg MD [address] [place] [phone] 10/24/2024 11:[address] ROLLER ENGINEER Office Visit [facility] [address] [place] [address] Chris Flores MD [address] [place] [address] 10/24/2024 1:[address] ROLLER ENGINEER Appointment [address] [address] Karla Goldberg MD [address] [place] [phone] 10/25/2024 1:[address] ROLLER ENGINEER Appointment [address] [address] Karla Goldberg MD [address] [place] [phone] 10/26/2024 1:[address] ROLLER ENGINEER Appointment [address] [address] Karla Goldberg MD [address] [place] [phone] 10/27/2024 1:[address] ROLLER ENGINEER Appointment [address] [address] Karla Goldberg MD [address] [place] [phone] 10/30/2024 1:45 PM CDT Appointment [address] [phone] Karla Goldberg MD [address] [place] [phone] 10/31/2024 1:45 PM CDT Appointment [address] [address] Karla Goldberg MD [address] [place] [phone] 11/01/2024 1:45 PM CDT Appointment [address] [address] Karla Goldberg MD [address] [place] [phone] 11/02/2024 1:45 PM CDT Appointment [address] [address] Karla Goldberg MD [address] [place] [phone] 11/03/2024 1:45 PM CDT Appointment [address] [address] Karla Goldberg MD [address] [place] [phone] 11/06/2024 1:45 PM CDT Appointment [address] [address] Karla Goldberg MD [address] [place] [phone] 11/07/2024 1:45 PM CDT Appointment [address] [address] Karla Goldberg MD [address] [place] [phone] 11/08/2024 1:45 PM CDT Appointment [address] [address] Karla Goldberg MD [address] [place] [phone] 11/09/2024 1:45 PM CDT Appointment [address] [address] Karla Goldberg MD [address] [place] [phone] 11/10/2024 1:45 PM CDT Appointment [address] [address] Karla Goldberg MD [address] [place] [phone] 11/13/2024 1:45 PM CDT Appointment [address] [address] Karla Goldberg MD [address] [place] [phone] 11/14/2024 1:45 PM CDT Appointment [address] [address] Karla Goldberg MD [address] [place] [phone] 11/15/2024 12:45 PM CDT Appointment [address] [address] Karla Goldberg MD [address] [place] [phone] 11/16/2024 12:45 PM CDT Appointment [address] [address] Karla Goldberg MD [address] [place] [phone] 11/17/2024 1:45 PM CDT Appointment [address] [address] Karla Goldberg MD [address] [place] [phone] 11/20/2024 1:45 PM CDT Appointment [address] [address] Karla Goldberg MD [address] [place] [phone] 11/21/2024 1:45 PM CDT Appointment [address] [address] Karla Goldberg MD [address] [place] [phone] 11/22/2024 1:45 PM CDT Appointment [address] [address] Karla Goldberg MD [address] [place] [phone] 11/23/2024 1:45 PM CDT Appointment [address] [address] Karla Goldberg MD [address] [place] [phone] 11/24/2024 1:45 PM CDT Appointment [address] [address] Karla Goldberg MD [address] [place] [phone] 11/27/2024 1:45 PM CDT Appointment [address] [address] Karla Goldberg MD [address] [place] [phone] 11/28/2024 1:45 PM CDT Appointment [address] [address] Karla Goldberg MD [address] [place] [address] documented as of this encounter Visit Diagnoses Diagnosis 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 neoplasm of larynx, unspecified site documented in this encounter Administered Medications Inactive Administered Medications - up to 3 most recent administrations Medication Order MAR Action Action Date Dose Rate Site ALPRAZolam (XANAX) tablet 0.5 mg 0.5 mg, Oral, ONE TIME ONLY, 1 dose, On Nataliia 10/05/24 at 1430, Routine Given 10/05/2024 2:[address] ROLLER ENGINEER 0.5 mg documented in this encounter Additional Health Concerns Infection Onset Date Last Indicated Resolved Time Respiratory Syncytial Virus (RSV) 09/14/2024 025 10/12/2024 1:[address] ROLLER ENGINEER Assessment Noted Time PHQ-9 Depression Total Score: 1 04/20/20 24 11:16 PM CDT documented as of this encounter
--- OUTSIDE RECORDS SUMMARY | 2024-10-14 10:35 | XMS_ITS | Encounter Summary ---
Author Organization [facility] Address [address] [place] [address] Care Team Providers Care Entry Engineer Name Role Phone Unavailable Primary Care Provider Unavailabl e Reason for Referral * Eval and Treat (Routine) - Open Specialty Diagnoses / Procedures Referred By Celso blanton Referred To Contact Palliative Care Diagnoses Laryngeal squamous cell carcinoma (CMS/HCC) Tracheostomy in place ([facility]/HCC) PEG (percutaneous endoscopic gastrostomy) status ([facility]/HCC) Cancer related pain Anxiety Procedures [place] OFFICE/OUTPATIENT ESTABLISHED MOD MDM 30 MIN [facility] OFFICE/OUTPATIENT NEW MODERATE MDM 45 MINUTES Guerda Castillo NP [address] [facility] [address] [place] [address] Phone: tel: fax: [facility] Supportive Care [facility] [address] [place] [address] Phone: tel: fax: Referral ID Status Reason Start Date Expiration Date Visits Re quested Visits Authorized [id number] Open 10/05/2024 10/05/2025 1 1 SERVICE PERSON Reason for Visit * Reason Comments Follow Up Chemotherapy Encounter Details Date Type Department Care Team (Late st Contact Info) Description 10/05/2024 8:30 AM LINE SERVICE PERSON Office Visit [facility] Cancer and Hematology [place] [address] [facility] [address] [place] [address] Rashmi Dumont MD [address] [place] [id number] Guerda Castillo NP [address] [place] [address] Laryngeal squamous cell carcinoma (CMS/HCC) (Primary Dx); Tracheostomy in place (CMS/HCC); PEG (percutaneous endoscopic gastrostomy) status (CMS/HCC); Cancer related pain; Anxiety; Stage 3a chronic kidney disease (CMS/HCC); Hypokalemia Social History Tobacco Use Types Packs/Day Years [...] on file Legal Sex Female 1:37 AM LINE SERVICE PERSON Gender Identity Not on file Sexual Orientation Not on file documented as of this encounter Last Filed Vital Signs Vital Sign Reading Time Taken Comments Blood Pressure 180/122 10/05/2024 8:24 AM LINE SERVICE PERSON Pulse 118 10/05/2024 8:19 AM LINE SERVICE PERSON Temperature 37 ??C (98.6 ??F) 10/05/2024 8:19 AM LINE SERVICE PERSON Respiratory Rate - - Oxygen Saturation 98% 10/05/2024 8:19 AM LINE SERVICE PERSON Inhaled Oxygen Concentration - - Weight 78.5 kg (173 lb) 10/05/2024 8:19 AM LINE SERVICE PERSON Height 165.1 cm (5' 5 ) 10/05/2024 8:19 AM LINE SERVICE PERSON Body Mass Index 28.79 10/05/2024 8:19 AM LINE SERVICE PERSON documented in this encounter Progress Notes * Guerda Castillo NP - 10/05/2024 8:40 AM CST HEMATOLOGY / ONCOLOGY OFFICE NOTE ALEXANDRA KENNEY 10/05/24 RFC: Laryngeal squamous cell carcinoma Referring provider: [...] she was admitted to outside hospital at [facility], as follows: Select hospital admission: Patient was hospitalized initially with ST segment elevation CA, respiratory distress, and marked dysphagia. She has undergone tracheostomy, PEG tube placement, cardiac catheterization with placement of CARMELO, and has also been considered for 2v CABG .She underwent trach, PEG, and DL/Biopsy with reports of SCC ,at [facility] Reviewed pathology from OSH, which has been scanned into media tab-collected [...] or pelvis. 3. Incidental findings as above INTERVAL HISTORY 10/05/24 Patient hospitalized 09/13-09/28 after presenting with hypotension to oncology clinic. She was admitted initially admitted to ICU and required pressors. Concern for septic shock. She did test positive for RSV, cultures/ID workup otherwise negative. Some concern for dental source of infection. She underwent teeth extraction 09/17. She completed course of antibiotics. She underwent CT simulation for radiation planning on 09/26. Patient was discharged on midodrine. Patient is here today for follow-up laryngeal cancer and to start cisplatin. She is also posthospital follow-up, as outlined above. She is currently living in [place] with her . She complains of throat pain. [facility] is not working well. She is still eating foods, but has odynophagia. We discussed soft diet and may need to start using her PEG tube. She does report that she flushes herPEG tube. She is having some anxiety, and request Xanax. She is agreeable to palliative care referral. Updated home medication list and sent in new prescriptions for antiemetics, Decadron. She reports she had a cardiac stent in April, but is out of her Plavix. Refilled 1 month Plavix and asked her to get further refills from her PCP. She is also out of her Paxil, so 1 month refill sent in forth, as well. Her blood pressure is elevated today. She was discharged from the hospital on midodrine. We will give her Betsy Layne in [facility] today and request nursing notify provider if blood pressure remains elevated. Will likely need to discontinue midodrine. She has trach, which she caps to speak. She reports she is needing inner cannulas and humidification for trach. She is wondering about her port placement. She has lost weight. She will get some Ensure when she goes downstairs. She has chronic back pain. She ambulates without assistance. She will start her first radiation treatment today after chemo ROS: 11 point ROS negative other than outlined above Wt Readings from Last 3 Encounters: 10/05/24 78.5 kg (173 lb) 09/28/24 85.9 kg (189 lb 6 oz) 09/13/24 80.1 kg (176 lb 9.6 oz) SH: She lives in [facility] which is about an hour [place] a half from [place]. She does not have good social support. [...] Past Medical History: Diagnosis Date Bipolar disorder ([facility]) Coronary artery disease Laryngeal squamous cell carcinoma ([facility]) 07/13/2024 Migraine Schizophrenia ([facility]) STEMI (ST elevation myocardial infarction) ([facility]) Past Surgical History: Procedure Laterality Date HX SECTION x 2 HX CORONARY STENT PLACEMENT HX HEART CATHETERIZATION HX HYSTERECTOMY HX MULTIPLE TOOTH EXTRACTIONS N/A 09/17/2024 TEETH MULTIPLE EXTRACTION performed by Reinaldo Dsouza MD at [facility] OR HX SURGICAL OTHER mass removal from pelvic x 2 Social History Tobacco Use Smoking status: Every Day Current packs/day: 0.25 Types: Cigarettes Smokeless tobacco: Never Substance Use Topics Alcohol use: No FAMILY HX Mother had some kind of female cancer, she is not sure what Medications: Current Outpatient Medications Medication Sig Dispense Refill clopidogreL (PLAVIX) 75 mg Tablet 1 Tablet [...] to RT for clausterphobia). 20 Tablet 0 HYDROcodone-acetaminophen (NORCO) 5-325 mg tablet Take 1 Tablet by mouth every 6 hours as needed for Pain, Moderate. Max Daily Amount: 4 Tablets 20 Tablet 0 [DISCONTINUED] HYDROcodone-acetaminophen (NORCO) 5-325 mg tablet Take 1 Tablet by mouth every 6 hours as needed for Pain, Moderate. Max Daily Amount: 4 Tablets 20 Tablet 0 midodrine (PROAMATINE) 5 mg tablet Take 1 Tablet (5 mg) by mouth 2 times daily for 14 days. 28 Tablet 0 naloxone (NARCAN) 4 mg/spray [place], Non-Aerosol EMERGENCY USE ONLY: Administer 1 spray [...] kits 1 per day 1 Each 0 [DISCONTINUED] ondansetron (ZOFRAN ODT) 8 mg Tablet, Rapid Dissolve Dissolve 1 tablet on top of tongue then swallow with saliva every 8 hours as needed for nausea or vomiting 30 Tablet 0 [DISCONTINUED] ALPRAZolam (Xanax) 0.25 mg tablet Take 1 Tablet (0.25 mg) by mouth see administration instructions. Take 1 hour prior to scan. May repeat once as needed. 2 Tablet 0 traMADoL (ULTRAM) 50 mg tablet Take [...] under tongue every 5 minutes as needed. [DISCONTINUED] clopidogreL (PLAVIX) 75 mg Tablet 75 mg by G Tube route daily. [DISCONTINUED] PARoxetine HCl (PAXIL) 20 mg tablet 20 mg by G Tube route daily. No current facility-administered medications for this visit. Facility-Administered Medications Ordered in Other Visits Medication Dose Route Frequency Provider Last Rate Last Admin oxyCODONE-acetaminophen (PERCOCET) 5-325 mg per tablet 2 Tablet 2 Tablet Oral every 4 hours Rashmi Craven MD 2 Tablet at 10/05/24 1008 [COMPLETED] potassium chloride (KLOR-CON) SR tablet 20 mEq 20 mEq Oral ONE time only Guerda Castillo, MARKETING COPYWRITER 20 mEq at 10/05/24 1030 [COMPLETED] fosaprepitant (EMEND) 150 mg in sodium chloride 0.9% 150 mL IVPB (PREMIX) 150 mg IV ONEtime only Guerda Castillo, MARKETING COPYWRITER Stopped at 10/05/24 1109 [COMPLETED] palonosetron (ALOXI) 0.25 mg/5 mL injection 0.25 mg 0.25 mg IV ONE time only Guerda Castillo, MARKETING COPYWRITER 0.25 mg at 10/05/24 1030 [COMPLETED] dexAMETHasone (DECADRON) 12 mg in sodium chloride 0.9% 50 mL IVPB (PREMIX) 12 mg IV ONEtime only Guerda Castillo, MARKETING COPYWRITER 177 mL/hr at 10/05/24 1032 12 mg at 10/05/24 1032 [COMPLETED] sodium chloride 0.9 % bolus solution 500 mL 500 mL IV ONE time only Guerda Castillo NPStopped at 10/05/24 1150 [COMPLETED] CISplatin (PLATINOL) 78 mg in sodium chloride 0.9 % 500 mL IVPB 40 mg/m2 (Treatment Plan Recorded) IV ONE time only Guerda Castillo NP Stopped at 10/05/24 1217 [COMPLETED] potassium CHLORIDE 10 mEq, magnesium sulfate 1 Gram in sodium chloride 0.9 % 500 mL infusion IV ONE time only Guerda Castillo NP Stopped at 10/05/24 1324 sodium chloride flush injection 10 mL 10 mL IV see admin instructions Abigail Santos FNP sodium chloride 0.9 % flush bag 250 mL 250 mL IV see admin instructions Abigail Santos FNP Stopped at 10/05/24 1327 [COMPLETED] ALPRAZolam (XANAX) tablet 0.5 mg 0.5 mg Oral ONE time only Karla Goldberg MD 0.5 mg at 10/05/24 1425 [DISCONTINUED] heparin, porcine (pf) 10 unit/mL IV syringe 50 Units 50 Units IV see admin instructions Abigail Santos FNP Allergies: Allergies Allergen Reactions Hydromorphone Dizziness and Headache Physical Examination: BP (!) 180/122 (BP Location: Right arm, Patient Position (BP): Sitting, BP Cuff Size: Adult) Pulse (!) 118 Temp 98.6 ??F (37 ??C) (Temporal) Ht 5' 5 (1.651 m) Wt 78.5 kg (173 lb) SpO2 98% BMI 28.79 kg/m?? General: Alert, NAD, ECOG 1, ambulates [...] peptide (BNP) level R79.89 Bipolar disorder, unspecified ([facility]) F31.9 Methamphetamine abuse ([facility]) F15.10 Essential hypertension I10 CAD (coronary atherosclerotic disease) I25.10 Acute on chronic diastolic heart failure ([facility]) I50.33 Stridor R06.1 COPD (chronic obstructive pulmonary disease) ([facility]) J44.9 CKD (chronic kidney disease) N18.9 Acute respiratory distress R06.03 Vocal cord paralysis J38.00 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 Community acquired pneumonia of right lower lobe of lung J18.9 Laryngeal squamous cell carcinoma ([facility]) C32.9 Hx of laryngeal cancer Z85.21 Acute renal failure superimposed on chronic kidney disease N17.9, N18.9 Pneumonia due to respiratory syncytial virus (RSV) J12.1 Multifocal pneumonia J18.9 Acute respiratory failure with hypoxia ([facility]) J96.01 Hypotension I95.9 Assessment/ Plan 49 y.o. female with laryngeal squamous cell carcinoma involving the left vocal cord, initially presented with stridor which progressed to respiratory distress/airway obstruction, requiring her to be admitted to [facility] in [place], where she underwent biopsy of left true [...] on 09/26/24 S/P oral surgery/dental extractions 09/17/24 Here today, 10/05, for follow-up and to start weekly cisplatin Labs reviewed. Hemoglobin improved 13.5 g/dL. K 3.2 --> will replace IV in OIC today. BUN and creatinine improved 10 and 1.14, GFR 58. LFTs WNL Will proceed with treatment today as scheduled Reviewed antiemetic regimen and medications updated BP elevated today, she is complaining of pain. Will give Betsy Layne 10 mg in OIC today (per Dr Domínguez) Nursing will notify if BP remains elevated She will get IVF and IV K and Mag with her treatment today Rx sent in for Zofran, Zyprexa, Decadron Discussed with Dr Domínguez and then with Dr Goldberg---> DC Ultram, as not working well and trial PRN Betsy Layne. Also Xanax prior to RT treatment. Discussed with patient to space xanax from zyprexa Patient agreeable to palliative care referral for symptom managment #Trach tube in place D/W nurse navigator regarding obtaining inner cannulas for her trach and humidification #Nutrition, PEG tube inplace Still taking PO, having odynophagia Discussed soft diet, use of PEG tube Currently only flushing PEG To meet with management associate and brain picker ensure today Wt Readings from Last 3 Encounters: 10/05/24 78.5 kg (173 lb) 09/28/24 85.9 kg (189 lb 6 oz) 09/13/24 80.1 kg (176 lb 9.6 oz) #CKD3a Renal insufficiency documented from ~ May 2024 Baseline creat and GFR ~ 1.2 and 55 Around baseline today Monitor closely with Cisplatin #Cancer related pain, anxiety as outlined above Out of paxil, refill x 1 mo sent to her pharmacy Refer to PC #HTN Hypotensive, requiring pressors, during recent hospitalization. She was discharged home with midodrine x 2 weeks. Will stop sooner, if needed Monitor #CAD s/p stent 04/2024 done at [place] Patient is out of her Plavix. Refill x 1 mo, further refills per PCP or cardiology (appears lost follow-up with cards) On statin #Schizophrenia-not on treatment, follows with PCP. Patient reports she is not taking Risperdal DISPO Needs transportation arranged- following She will meet with nurse navigator and management associate today CHB/MARKETING COPYWRITER weekly follow-up linked Cisplatin, CBC CMP, Mag level Will find out about port- patient reports difficult stick Guerda Castillo NP, 10/05/24 SERVICE PERSON * Alia Diaz - 10/05/2024 8:20 AM CST TOBACCO COUNSELING She was counseled to discontinue tobacco/nicotine use. SERVICE PERSON documented in this encounter Miscellaneous Notes * Patient Instructions - Guerda Castillo NP - 10/05/2024 8:41 AM CST TREATMENT PLAN You will be receiving CISPLATIN weekly while on radiation NAUSEA MANAGEMENT Dexamethasone (Decadron) 1 tablet twice daily with food on Day 2, 3 of chemo (take 2nd dose before 5 PM to avoid insomnia) Zyprexa (Olanzapine) 1 tablets every evening/night as needed for nausea/vomiting. Can start Day 1 of chemo Zofran (Ondansetron) 1 tablet every 8 hours as need for nausea/vomiting. Can start Day 3 of chemo For diarrhea, use Imodium (this is available as a generic = loperamide) tablets. With the first loose stool, take 2 tabs of Imodium and then take 1 tab every 2 hrs until you have not had any diarrheafor 12 hours. You can take up to 12 tablets a day. For constipation, use docusate sodium (a stool softener), senna (a gentle stimulant) or Miralax. Adjust dose as necessary. For heartburn, use Pepcid or Prilosec. Use hand drafter (cad) electrical or antibacterial gel such as Purell. If your fever is 100.4?? or greater, call your doctor immediately. Call your doctor if you have anyshaking chills or flu-like symptoms, sore throat or coughing, burning or pain when you urinate , any red or swollen area. Use non-scented lotions, bag balm or a thick emollient cream for dry skin. Use sunscreen, at least SPF 15-30. Use enough and reapply often. Use Lanolin, aloe, or beeswax or water-based products for dry lips. Mouth Rinse: 1 cup baking soda 1/2 cup salt Use 1 tsp in 1 cup of warm water. Rinse and spit after meals and at bedtime. If you have a question or concern, call Dr Domínguez's nurse, BRAYDEN, at [phone] from 8:30 am to 4:30 pm Wednesday-Wednesday. If you have an urgent need after hours, please call [phone]. You will get the answering service. 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 Have to keep weight stable SERVICE PERSON SERVICE PERSON SERVICE PERSON SERVICE PERSON SERVICE PERSON documented in this encounter Plan of Treatment Upcoming Encounters Date Type Department Care Team (Late st Contact Info) Description 10/16/2024 11:00 AM LINE SERVICE PERSON Appointment [facility] Oncology [address] [place] [address] Rashmi Dumont MD [address] [place] [address] [address] [place] [address] [facility] Oncology, [facility] 8 10/16/2024 1:45 PM LINE SERVICE PERSON Appointment [address] [place] [address] Karla Goldberg MD [address] [place] [phone] 10/17/2024 1:45 PM LINE SERVICE PERSON Appointment [address] [phone] Karla Goldberg MD [address] [place] [phone] 10/18/2024 1:45 PM LINE SERVICE PERSON Appointment [address] [phone] Karla Goldberg MD [address] [place] [phone] 10/19/2024 1:45 PM LINE SERVICE PERSON Appointment [address] [phone] Karla Goldberg MD [address] [place] [address] [place] [address] 10/20/2024 1:45 PM LINE SERVICE PERSON Appointment [address] [phone] Karla Goldberg MD [address] [place] [phone] 10/23/2024 1:45 PM LINE SERVICE PERSON Appointment [address] [phone] Karla Goldberg MD [address] [place] [phone] 10/24/2024 11:30 AM LINE SERVICE PERSON Office Visit [facility] Ear Nose and Throat Head Neck [facility] [address] [place] [phone] Chris Flores MD [address] [place] [address] [place] [address] 10/24/2024 1:45 PM LINE SERVICE PERSON Appointment [address] [phone] Karla Goldberg MD [address] [place] [phone] 10/25/2024 1:45 PM LINE SERVICE PERSON Appointment [address] [phone] Karla Goldberg MD [address] [place] [phone] 10/26/2024 1:45 PM LINE SERVICE PERSON Appointment [address] [phone] Karla Goldberg MD [address] [place] [phone] 10/27/2024 1:45 PM LINE SERVICE PERSON Appointment [address] [phone] Karla Goldberg MD [address] [place] [phone] 10/30/2024 1:45 PM CDT Appointment [address] [phone] Karla Goldberg MD [address] [place] [phone] 10/31/2024 1:45 PM CDT Appointment [address] [phone] Karla Goldberg MD [address] [place] [phone] 11/01/2024 1:45 PM CDT Appointment [address] [phone] Karla Goldberg MD [address] [place] [phone] 11/02/2024 1:45 PM CDT Appointment [address] [phone] Karla Goldberg MD [address] [place] [phone] 11/03/2024 1:45 PM CDT Appointment [address] [phone] Karla Goldberg MD [address] [place] [phone] 11/06/2024 1:45 PM CDT Appointment [address] [phone] Karla Goldberg MD [address] [place] [phone] 11/07/2024 1:45 PM CDT Appointment [address] [phone] Karla Goldberg MD [address] [place] [phone] 11/08/2024 1:45 PM CDT Appointment [address] [phone] Karla Goldberg MD [address] [place] [phone] 11/09/2024 1:45 PM CDT Appointment [address] [phone] Karla Goldberg MD [address] [place] [phone] 11/10/2024 1:45 PM CDT Appointment [address] [phone] Karla Goldberg MD [address] [place] [phone] 11/13/2024 1:45 PM CDT Appointment [address] [phone] Karla Goldberg MD [address] [place] [phone] 11/14/2024 1:45 PM CDT Appointment [address] [phone] Karla Goldberg MD [address] [place] [phone] 11/15/2024 12:45 PM CDT Appointment [address] [phone] Karla Goldberg MD [address] [place] [phone] 11/16/2024 12:45 PM CDT Appointment [address] [phone] Karla Goldberg MD [address] [place] [phone] 11/17/2024 1:45 PM CDT Appointment [address] [phone] Karla Goldberg MD [address] [place] [phone] 11/20/2024 1:45 PM CDT Appointment [address] [phone] Karla Goldberg MD [address] [place] [phone] 11/21/2024 1:45 PM CDT Appointment [address] [phone] Karla Goldberg MD [address] [place] [phone] 11/22/2024 1:45 PM CDT Appointment [address] [phone] Karla Goldberg MD [address] [place] [phone] 11/23/2024 1:45 PM CDT Appointment [address] [phone] Karla Goldberg MD [address] [place] [phone] 11/24/2024 1:45 PM CDT Appointment [address] [phone] Karla Goldberg MD [address] [place] [phone] 11/27/2024 1:45 PM CDT Appointment [facility] [address] [facility] [address] [place] [address] Karla Goldberg MD [address] [place] [phone] 11/28/2024 1:45 PM CDT Appointment [facility] [address] [facility] [address] [place] [address] Karla Goldberg MD [address] [place] [address] Scheduled Orders Name Type Priority Associated Diagnoses Orde r Schedule CBC WITH DIFFERENTIAL Lab Stat Laryngeal squamous cell carcinoma (CMS/HCC) Expected: 10/05/2024, Expires: 10/05/2025 COMPREHENSIVE METABOLIC PANEL Lab Stat Laryngeal squamous cell carcinoma (CMS/HCC) Expected: 10/05/2024, Expires: 10/05/2025 MAGNESIUM LEVEL Lab Stat Laryngeal squamous cell carcinoma (CMS/HCC) Expected: 10/05/2024, Expires: 10/05/2025 Scheduled Referrals Name Type Priority Associated Diagnoses Order Schedule AMB REFERRAL TO PALLIATIVE CARE Outpatient Referral Routine Laryngeal squamous cell carcinoma (CMS/HCC) Tracheostomy in place (CMS/HCC) PEG (percutaneous endoscopic gastrostomy) status ([facility]/HCC) Cancer related pain Anxiety Ordered: 10/05/2024 documented as of this encounter Results * MAGNESIUM LEVEL (10/05/2024 7:45 AM LINE SERVICE PERSON) MAGNESIUM 1.7 1.6 - 2.6 mg/dL 10/05/2024 8:15 AM LINE SERVICE PERSON [facility] Blood Venipuncture / Unknown 10/05/2024 7:45 AM LINE SERVICE PERSON 10/05/2024 7:48 AM LINE SERVICE PERSON us Guerda Castillo MARKETING COPYWRITER CHEMISTRY ORDERABLES Final Res ult [facility] [place] CLIA# [id number] [address] [place] [address] * (ABNORMAL) COMPREHENSIVE METABOLIC PANEL (10/05/2024 7:45 AM LINE SERVICE PERSON) SODIUM 136 136 - 145 mmol/L 10/05/2024 8:15 AM [facility] [place] POTASSIUM 3.2(L) 3.5 - 5.1 mmol/L 10/05/2024 8:15 AM [facility] [place] CHLORIDE 104 98 - 107 mmol/L 10/05/2024 8:15 AM [facility] [place] CO2 18(L) 22 - 29 mmol/L 10/05/2024 8:15 AM [facility] [place] CALCIUM 9.6 8.6 - 10.0 mg/dL 10/05/2024 8:15 AM [facility] [place] BUN 10 6 - 20 mg/dL 10/05/2024 8:15 AM [facility] [place] CREATININE 1.14(H) 0.51 - 0.95 mg/dL 10/05/2024 8:15 AM [facility] [place] GLUCOSE 129(H) 74 - 99 mg/dL 10/05/2024 8:15 AM [facility] [place] TOTAL PROTEIN 8.0 6.4 - 8.3 g/dL 10/05/2024 8:15 AM [facility] [place] ALBUMIN 4.1 3.5 - 5.2 g/dL 10/05/2024 8:15 AM [facility] [place] BILIRUBIN TOTAL 0.5 0.2 - 1.0 mg/dL 10/05/2024 8:15 AM [facility] [place] ALKALINE PHOSPHATASE 70 35 - 104 U/L 10/05/2024 8:15 AM [facility] [place] AST 24 <=33 U/L 10/05/2024 8:15 AM [facility] [place] ALT 17 <=33 U/L 10/05/2024 8:15 AM [facility] [place] GFR 58(L) >=60 mL/min/1.7 3 sq meter 10/05/2024 8:15 AM [facility] [place] Comment:eGFR calculated with 2020 CKD-EPI equation. Vegetarian diet, extremely high or low muscle mass, and may affect results. Cystatin C with Glomerular Filtration Rate is a suitable alternative for these patients. ANION GAP 14 9 - 20 mmol/L 10/05/2024 8:15 AM [facility] [place] Blood Venipuncture / Unknown 10/05/2024 7:45 AM LINE SERVICE PERSON 10/05/2024 7:48 AM LINE SERVICE PERSON us Guerda Castillo NP CHEMISTRY ORDERABLES Final Res ult [facility] CLIA# [id number] [phone] [place] [address] * (ABNORMAL) CBC WITH DIFFERENTIAL (10/05/2024 7:45 AM LINE SERVICE PERSON) WBC 10.2 4.8 - 10.8 K/uL 10/05/2024 7:50 AM [facility] [place] RBC 4.49 4.20 - 5.40 M/uL 10/05/2024 7:50 AM [facility] [place] HEMOGLOBIN 13.5 12.0 - 16.0 g/dL 10/05/2024 7:50 AM [facility] [place] HEMATOCRIT 40.3 36.0 - 46.0 % 10/05/2024 7:50 AM [facility] [place] MCV 89.8 82.0 - 100.0 fL 10/05/2024 7:50 AM [facility] [place] MCH 30.1 27.0 - 34.0 pg 10/05/2024 7:50 AM [facility] [place] MCHC 33.5 31.0 - 37.0 g/dL 10/05/2024 7:50 AM [facility] [place] RDW 13.4 11.0 - 14.5 % 10/05/2024 7:50 AM [facility] [place] RDW-STDEV 43.2 37.0 - 54.0 fL 10/05/2024 7:50 AM [facility] [place] PLATELETS 313 140 - 440 K/uL 10/05/2024 7:50 AM [facility] [place] MPV 9.1 8.9 - 12.8 fL 10/05/2024 7:50 AM [facility] [place] NEUTROPHILS 74 42 - 75 % 10/05/2024 7:50 AM [facility] [place] LYMPHOCYTES 21(L) 24 - 44 % 10/05/2024 7:50 AM [facility] [place] MONOCYTES 4 2 - 10 % 10/05/2024 7:50 AM [facility] [place] EOSINOPHILS 1 0 - 7 % 10/05/2024 7:50 AM [facility] [place] BASOPHILS 0 0 - 1 % 10/05/2024 7:50 AM [facility] [place] IMMATURE GRANULOCYTES 0 0 - 2 % 10/05/2024 7:50 AM [facility] [place] NEUTROPHIL ABSOLUTE 7.49(H) 1.40 - 6.50 K/uL 10/05/2024 7:50 AM [facility] [place] LYMPHOCYTE ABSOLUTE 2.11 1.20 - 4.00 K/uL 10/05/2024 7:50 AM [facility] [place] MONOCYTE ABSOLUTE 0.45 0.10 - 0.60 K/uL 10/05/2024 7:50 AM [facility] [place] EOSINOPHIL ABSOLUTE 0.06 0.00 - 0.70 K/uL 10/05/2024 7:50 AM [facility] [place] BASOPHILS ABSOLUTE 0.04 0.00 - 0.20 K/uL 10/05/2024 7:50 AM [facility] [place] IMMATURE GRANULOCYTES ABSOLUTE 0.04 0.00 - 0.10 K/uL 10/05/2024 7:50 AM [facility] [place] Blood Venipuncture / Unknown 10/05/2024 7:45 AM LINE SERVICE PERSON 10/05/2024 7:48 AM LINE SERVICE PERSON us Guerda Castillo NP HEMATOLOGY ORDERABLES Final Re sult [facility] [id number] [phone] [place] [address] documented in this encounter Visit Diagnoses Diagnosis 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
--- OUTSIDE RECORDS SUMMARY | 2024-10-14 10:35 | XMS_ITS | Encounter Summary ---
Author Organization [facility] Address [address] [place] [address] Care Team Providers Care General Cleaner Name Role Phone Unavailable Primary Care Provider Unavailabl e Reason for Visit * Reason Onset Date Comments Nurse Navigation 10/12/2024 Encounter Details Date Type Department Care Team (Late st Contact Info) Description 10/12/2024 Telephone [facility] [address] [facility] [place] [address] Dian Lea, RN Nurse Navigation Social History [...] on file Legal Sex Female 1:37 AM KOSHER SEALER Gender Identity Not on file Sexual Orientation Not on file documented as of this encounter Miscellaneous Notes * Telephone Encounter - Dian Lea RN - 10/12/2024 3:51 PM CST Attempted to contact both the patient's neighbor whose phone pt uses, as well as the number listed for her regarding her cancer appointments and treatments missed this week. No answer on phone, left a voicemail on 's line, but neighbor's phone currently says that novoicemail set up. Provided my contact information and encouraged them to call back. ER SEALER documented in this encounter Plan of Treatment Upcoming Encounters Date Type Department Care Team (Late st Contact Info) Description 10/16/2024 11:00 AM KOSHER SEALER Appointment [facility] [address] [place] [address] [address] [place] [phone] Rashmi Dumont MD [address] [place] [address] [address] [place] [phone] [facility] Oncology, [facility] 8 10/16/2024 1:45 PM KOSHER SEALER Appointment [address] [place] [address] Karla Goldberg MD [address] [place] [phone] 10/17/2024 1:45 PM KOSHER SEALER Appointment [address] [place] [address] Karla Goldberg MD [address] [place] [phone] 10/18/2024 1:45 PM KOSHER SEALER Appointment [address] [place] [address] Karla Goldberg MD [address] [place] [phone] 10/19/2024 1:45 PM KOSHER SEALER Appointment [address] [place] [address] Karla Goldberg MD [address] [place] [phone] 10/20/2024 1:45 PM KOSHER SEALER Appointment [address] [phone] Karla Goldberg MD [address] [place] [phone] 10/23/2024 1:45 PM KOSHER SEALER Appointment [address] [phone] Karla Goldberg MD [address] [place] [phone] 10/24/2024 11:30 AM KOSHER SEALER Office Visit [facility] [address] [place] [phone] Chris Flores MD [address] [place] [address] 10/24/2024 1:45 PM KOSHER SEALER Appointment [address] [phone] Karla Goldberg MD [address] [place] [phone] 10/25/2024 1:45 PM KOSHER SEALER Appointment [address] [phone] Karla Goldberg MD [address] [place] [phone] 10/26/2024 1:45 PM KOSHER SEALER Appointment [address] [phone] Karla Goldberg MD [address] [place] [phone] 10/27/2024 1:45 PM KOSHER SEALER Appointment [address] [phone] Karla Goldberg MD [address] [place] [phone] 10/30/2024 1:45 PM CDT Appointment [address] [phone] Karla Goldberg MD [address] [place] [phone] 10/31/2024 1:45 PM CDT Appointment [address] [phone] Karla Goldberg MD [address] [place] [phone] 11/01/2024 1:45 PM CDT Appointment [address] [phone] Karla Goldberg MD [address] [place] [phone] 11/02/2024 1:45 PM CDT Appointment [address] [phone] Karla Goldberg MD [address] [place] [phone] 11/03/2024 1:45 PM CDT Appointment [address] [phone] Karla Goldberg MD [address] [place] [phone] 11/06/2024 1:45 PM CDT Appointment [address] [phone] Karla Goldberg MD [address] [place] [phone] 11/07/2024 1:45 PM CDT Appointment [address] [phone] Karla Goldberg MD [address] [place] [phone] 11/08/2024 1:45 PM CDT Appointment [address] [phone] Karla Goldberg MD [address] [place] [phone] 11/09/2024 1:45 PM CDT Appointment [address] [phone] Karla Goldberg MD [address] [place] [phone] 11/10/2024 1:45 PM CDT Appointment [address] [phone] Karla Goldberg MD [address] [place] [phone] 11/13/2024 1:45 PM CDT Appointment [address] [phone] Karla Goldberg MD [address] [place] [phone] 11/14/2024 1:45 PM CDT Appointment [address] [phone] Karla Goldberg MD [address] [place] [phone] 11/15/2024 12:45 PM CDT Appointment [address] [phone] Karla Goldberg MD [address] [place] [phone] 11/16/2024 12:45 PM CDT Appointment [address] [phone] Karla Goldberg MD [address] [place] [phone] 11/17/2024 1:45 PM CDT Appointment [address] [phone] Karla Goldberg MD [address] [place] [phone] 11/20/2024 1:45 PM CDT Appointment [address] [phone] Karla Goldberg MD [address] [place] [phone] 11/21/2024 1:45 PM CDT Appointment [address] [phone] Karla Goldberg MD [address] [place] [phone] 11/22/2024 1:45 PM CDT Appointment [address] [phone] Karla Goldberg MD [address] [place] [phone] 11/23/2024 1:45 PM CDT Appointment [address] [phone] Karla Goldberg MD [address] [place] [phone] 11/24/2024 1:45 PM CDT Appointment [address] [phone] Karla Goldberg MD [address] [place] [phone] 11/27/2024 1:45 PM CDT Appointment [address] [phone] Karla Goldberg MD [address] [place] [phone] 11/28/2024 1:45 PM CDT Appointment [address] [phone] Karla Goldberg MD [address] [place] [phone] documented as of this encounter Visit Diagnoses Not on filedocumented in this encounter Additional Health Concerns Infection Onset Date Last Indicated Resolved Time Respiratory Syncytial Virus (RSV) 09/14/2024 025 10/12/2024 1:16 AM KOSHER SEALER Assessment Noted Time PHQ-9 Depression Total Score: 1 04/20/20 24 11:16 PM CDT documented as of this encounter
--- OUTSIDE RECORDS SUMMARY | 2024-10-14 10:35 | XMS_ITS | Encounter Summary ---
Author Organization [facility] Address [address] [place] [address] Care Team Providers Care Senior Qa Analyst Name Role Phone Unavailable Primary Care Provider Unavailabl e Reason for Visit * Tx/Med Therapy Plan Auth (Routine) - Authorized Specialty Diagnoses / Procedures Referred By Contcarson t Referred To Contact Diagnoses Laryngeal squamous cell carcinoma (CMS/HCC) Procedures WV CISPLATIN 10 MG INJECTION WV INJ POTASSIUM CHLORIDE WV INJ MAGNESIUM SULFATE WV FOSAPREPITANT INJECTION WV PALONOSETRON HCL WV DEXAMETHASONE SODIUM PHOS CISplatin (PLATINOL), potassium, magnesium, fosaprepitant, palonosetron, dexamethasone Rashmi Dumont MD [address] [address] Phone: tel: fax: [facility] [address] [facility] [address], [place] [address] Phone: tel: fax: Referral ID Status Reason Start Date Expiration Date V isits Requested Visits Authorized [id number] Authorized 07/13/2024 10/04/2025 99 99 Encounter Details Date Type Department Care Team (Latest Contact Info) Description 10/05/2024 9:00 AM RESOURCE SPECIALIST TEACHER - 10/05/2024 11:59 PM RESOURCE SPECIALIST TEACHER Hospital Encounter [facility] Oncology [facility] [address] [facility] [address], [place] [address] Rashmi Dumont MD [address] [facility] [address] [place] [address] Sprg Oncology, Infusion 10 Discharge Disposition: Home or Self Care Social [...] on file Legal Sex Female 1:37 AM RESOURCE SPECIALIST TEACHER Gender Identity Not on file Sexual Orientation Not on file documented as of this encounter Discharge Instructions * Discharge Instructions* Aliza Hancock RN - 10/05/2024 12:58 PM RESOURCE SPECIALIST TEACHER Activity: As tolerated. Take frequent rest periods. Avoid crowds: Avoid persons with colds, flu, or other contagious diseases Medicine to note: Do not take aspirin or aspirin products unless otherwise instructed by your physician. Do not take anti-inflammatory medicines (usually used to treat pain or arthritis) such as ibuprofen, Motrin, Advil, or Aleve, unless otherwise instructed by your physician. Call the doctor if: Fever over 100.4F or shaking chills. Pain that is new or pain not relieved by current medication(s). Nausea/vomiting that is new or does not lessen after taking medication for nausea. You are unable to keep food or liquids down for 24 hours or more. Any bleeding, such as nosebleed. Diarrhea that is new or persists. Cough is new or persists. Weight loss more than 10 pounds from admission weight. Central line is red, tender or draining. Mouth: 1cup baking soda + 1/2cup salt --> mix 1tsp in 1cup warm water Mouth rinses with salt/soda after meals and before bedtime. Do not use commercial mouth washes. Smoking: Do not smoke and avoid second hand smoke. Tobacco smoke can delay the healing process by decreasingthe oxygen supply to your wound, and may increase your risk of infection. Smoking irritates the breathing passages and increases the risk of pneumonia, bronchitis, asthma and the risk of blood clots. Restroom: Flush the toilet twice for 48 hours after chemotherapy. TREATMENT PLAN You will be receiving CISPLATIN [...] heartburn, use Pepcid or Prilosec. Use hand housemaid or antibacterial gel such as Purell. If [...] concern, call Dr Domínguez's nurse, BRAYDEN, at [phone] from 8:30 am to 4:30 pm Wednesday-Wednesday. If you have an urgent need after hours, please call [phone]. You will get the answering service. Someone is environmental monitoring technician until 9 PM URCE SPECIALIST TEACHER URCE SPECIALIST TEACHER documented in this encounter Medications at Time of Discharge [...] 20 Tablet 10/05/2024 naloxone (NARCAN) 4 mg/spray [place], Non-Aerosol EMERGENCY USE ONLY: Administer 1 spray (4 mg) in one nostril one time. May repeat in alternating nostrils every 2-3 min until responsive or EMS arrives. 2 Each 3 09/28/2024 5:11 PM RESOURCE SPECIALIST TEACHER 09/28/2024 trach supplies Surgery Date: 09/17/2025 Length of Need: 99 months Brand dipti, Size 6 FR Cuffed: no, Fenestrated: no,1 [...] 14 days. 28 Tablet 09/28/2024 5:11 PM RESOURCE SPECIALIST TEACHER 09/28/2024 5 documented as of this encounter Progress Notes * Maryann Pat RN - 10/05/2024 1:25 PM CST Chemotherapy Completion Note Chemo treatment completed. Pre-medications: Pre-medications administered per protocol/physician orders. Tolerance: Patient tolerated treatment with no s/s of adverse reaction at this time. Access: Blood return monitored during infusion per protocol. See Doc Flowsheet LDA for documentation. Positive brisk blood return from IV access device verified upon completion of treatment. No s/s of infiltrate. Discharge Patient received chemo treatment as ordered without complications. Tolerated infusion well. Discharged home ambulatory with family. Patient verbalizes understanding of possible complications and whento notify physician. Follow up appointment confirmed with patient. URCE SPECIALIST TEACHER * Jacqueline Luong RN - 10/05/2024 10:16 AM CST Images from the original note were not included. Chemotherapy / Immunotherapy Administration Note Cycle 1 Day 1 Cisplatin All questions answered and process of OIC explained to pt Provider on site: Will proceed with treatment Chemotherapy / Immunotherapy Verification: Complete order checks were performed to verify the following: patient name and , the treatment plan per [place], dose, volume, rate of administration, within the Electronic Health Record (EHR). Dosage calculations were verified prior to administration to be in an appropriate range. Vital signs, lab values, and patient condition reviewed and found to be within appropriate limits for administration as per physician order and direction. Chemotherapy / Immunotherapy education and consent for treatment verified to be complete. Treatment reviewed with patient and/or family. Patient/family instructed to notify staff of any s/sof a reaction, including but not limited to: itching, swelling, pain/tenderness at the access site,nausea, vomiting, or generalized discomfort. IV Access/Blood Return: Line was flushed and positive brisk blood return was confirmed before chemotherapy / Immunotherapy was administered. URCE SPECIALIST TEACHER documented in this encounter Plan of Treatment Upcoming Encounters Date Type Department Care Team (Late st Contact Info) Description 10/16/2024 11:00 AM RESOURCE SPECIALIST TEACHER Appointment [facility] Oncology Infusion [facility] [address] [facility] [address] [place] [address] Rashmi Dumont MD [address] [facility] [address] [place] [address] [facility] Oncology, Infusion 8 10/16/2024 1:45 PM RESOURCE SPECIALIST TEACHER Appointment [facility] Radiation Oncology [facility] [address] [facility] [address] [place] [address] Karla Goldberg MD [address] [place] [address] 10/17/2024 1:45 PM RESOURCE SPECIALIST TEACHER Appointment [facility] Radiation Oncology [facility] [address] [facility] [address] [place] [address] Karla Goldberg MD [address] [place] [address] 10/18/2024 1:45 PM RESOURCE SPECIALIST TEACHER Appointment [address] [phone] Karla Goldberg MD [address] [place] [phone] 10/19/2024 1:45 PM RESOURCE SPECIALIST TEACHER Appointment [address] [address] Karla Goldberg MD [address] [place] [phone] 10/20/2024 1:45 PM RESOURCE SPECIALIST TEACHER Appointment [address] [address] Karla Goldberg MD [address] [place] [phone] 10/23/2024 1:45 PM RESOURCE SPECIALIST TEACHER Appointment [address] [address] Karla Goldberg MD [address] [place] [phone] 10/24/2024 11:30 AM RESOURCE SPECIALIST TEACHER Office Visit [facility] Ear Nose and Throat Head Neck [facility] [address] [place] [address] Chris Flores MD [address] [place] [phone] 10/24/2024 1:45 PM RESOURCE SPECIALIST TEACHER [address]ointment [address] [place] [address] Karla Goldberg MD [address] [place] [phone] 10/25/2024 1:45 PM RESOURCE SPECIALIST TEACHER Appointment [address] [address] Karla Goldberg MD [address] [place] [phone] 10/26/2024 1:45 PM RESOURCE SPECIALIST TEACHER Appointment [address] [address] Karla Goldberg MD [address] [place] [phone] 10/27/2024 1:45 PM RESOURCE SPECIALIST TEACHER Appointment [address] [address] Karla Goldberg MD [address] [place] [phone] 10/30/2024 1:45 PM CDT Appointment [address] [address] Karla Goldberg MD [address] [place] [phone] 10/31/2024 1:45 PM CDT Appointment [address] [address] Karla Goldberg MD [address] [place] [phone] 11/01/2024 1:45 PM CDT Appointment [address] [phone] Karla Goldberg MD [address] [place] [phone] 11/02/2024 1:45 PM CDT Appointment [address] [address] Karla Goldberg MD [address] [place] [phone] 11/03/2024 1:45 PM CDT Appointment [address] [address] Karla Goldberg MD [address] [place] [phone] 11/06/2024 1:45 PM CDT Appointment [address] [address] Karla Goldberg MD [address] [place] [phone] 11/07/2024 1:45 PM CDT Appointment [address] [address] Karla Goldberg MD [address] [place] [phone] 11/08/2024 1:45 PM CDT Appointment [address] [address] Karla Goldberg MD [address] [place] [phone] 11/09/2024 1:45 PM CDT Appointment [address] [address] Karla Goldberg MD [address] [place] [phone] 11/10/2024 1:45 PM CDT Appointment [address] [address] Karla Goldberg MD [address] [place] [phone] 11/13/2024 1:45 PM CDT Appointment [address] [address] Karla Goldberg MD [address] [place] [phone] 11/14/2024 1:45 PM CDT Appointment [address] [address] Karla Goldberg MD [address] [place] [phone] 11/15/2024 12:45 PM CDT Appointment [address] [address] Karla Goldberg MD [address] [place] [phone] 11/16/2024 12:45 PM CDT Appointment [address] [address] Karla Goldberg MD [address] [place] [phone] 11/17/2024 1:45 PM CDT Appointment [address] [address] Karla Goldberg MD [address] [place] [phone] 11/20/2024 1:45 PM CDT Appointment [address] [address] Karla Goldberg MD [address] [place] [phone] 11/21/2024 1:45 PM CDT Appointment [address] [address] Karla Goldberg MD [address] [place] [phone] 11/22/2024 1:45 PM CDT Appointment [address] [address] Karla Goldberg MD [address] [place] [phone] 11/23/2024 1:45 PM CDT Appointment [address] [phone] Karla Goldberg MD [address] [place] [phone] 11/24/2024 1:45 PM CDT Appointment [address] [address] Karla Goldberg MD [address] [place] [phone] 11/27/2024 1:45 PM CDT Appointment [address] [phone] Karla Goldberg MD [address] [place] [phone] 11/28/2024 1:45 PM CDT Appointment [address] [phone] Karla Goldberg MD [address] [place] [phone] documented as of this encounter Visit Diagnoses Diagnosis 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 neoplasm of larynx, unspecified site documented in this encounter Administered Medications Inactive Administered Medications - up to 3 most recent administrations Medication Order MAR Action Action Date Dose Rate Site CISplatin (PLATINOL) 78 mg in sodium chloride 0.9 % 500 mL IVPB 78 mg (rounded from 77.6 mg = 40 mg/m2 ? 1.94 m2 Treatment Plan BSA from Recorded weight), IV, ONE TIME ONLY, 1 dose, On Nataliia 10/05/24 at 1030, RoutineIndications:Larynge al squamous cell carcinoma (CMS/HCC) New Bag 10/05/2024 11:18 AM RESOURCE SPECIALIST TEACHER 78 mg 643 mL/hr dexAMETHasone (DECADRON) 12 mg in sodium chloride 0.9% 50 mL IVPB (PREMIX) 12 mg, IV, ONE TIME ONLY, 1 dose, On Nataliia 10/05/24 at 0930, RoutineIndications:Larynge al squamous cell carcinoma (CMS/HCC) Push 10/05/2024 10:32 AM RESOURCE SPECIALIST TEACHER 12 mg 177 mL/hr fosaprepitant (EMEND) 150 mg in sodium chloride 0.9% 150 mL IVPB (PREMIX) 150 mg, IV, ONE TIME ONLY, 1 dose, On Nataliia 10/05/24 at 0930, RoutineIndications:Larynge al squamous cell carcinoma (CMS/HCC) New Bag 10/05/2024 10:49 AM RESOURCE SPECIALIST TEACHER 150 mg 450 mL/hr oxyCODONE-acetaminophen (PERCOCET) 5-325 mg per tablet 2 Tablet 2 Tablet, Oral, EVERY 4 HOURS PRN, Starting on Wed10/05/24 at 0917, Until Wed10/06/24 at 0212, Pain (See admin instructions), Routine Given 10/05/2024 10:08 AM RESOURCE SPECIALIST TEACHER 2 Tablets palonosetron (ALOXI) 0.25 mg/5 mL injection 0.25 mg 0.25 mg, IV, ONE TIME ONLY, 1 dose, On Nataliia 10/05/24 at 0930, RoutineIndications:Larynge al squamous cell carcinoma (CMS/HCC) Given 10/05/2024 10:30 AM RESOURCE SPECIALIST TEACHER 0.25 mg potassium chloride (KLOR-CON) SR tablet 20 mEq 20 mEq, Oral, ONE TIME ONLY, 1 dose, On Nataliia 10/05/24 at 0930, Routine Given 10/05/2024 10:30 AM RESOURCE SPECIALIST TEACHER 20 mEq potassium CHLORIDE 10 mEq, magnesium sulfate 1 Gram in sodium chloride 0.9 % 500 mL infusion IV, at 500 mL/hr, ONE TIME ONLY, 1 dose, On Nataliia 10/05/24 at 1130, RoutineIndications:Larynge al squamous cell carcinoma (CMS/HCC) Rate Change 10/05/2024 12:26 PM RESOURCE SPECIALIST TEACHER 550 mL/hr New Bag 10/05/2024 12:19 PM RESOURCE SPECIALIST TEACHER 500 mL/hr sodium chloride 0.9 % bolus solution 500 mL 500 mL, IV, ONE TIME ONLY, 1 dose, On Nataliia 10/05/24 at 0930, at 500 mL/hr, Administer over 1 Hours, RoutineIndications:Laryngeal squamous cell carcinoma (CMS/HCC) Rate Change 10/05/2024 11:18 AM RESOURCE SPECIALIST TEACHER 340 mL/hr Rate Change 10/05/2024 11:17 AM RESOURCE SPECIALIST TEACHER 350 mL/hr New Bag 10/05/2024 10:39 AM RESOURCE SPECIALIST TEACHER 500 mL 500 mL/hr sodium chloride 0.9 % flush bag 250 mL 250 mL, IV, SEE ADMIN INSTRUCTIONS, Starting on Nataliia 10/05/24 at 0942, Until Wed10/06/24 at 0212, Routine Rate Change 10/05/2024 1:25 PM RESOURCE SPECIALIST TEACHER 550 mL/hr Rate Verify 10/05/2024 1:15 PM RESOURCE SPECIALIST TEACHER 30 mL/hr Rate Change 10/05/2024 11:16 AM RESOURCE SPECIALIST TEACHER 30 mL/hr documented in this encounter Additional Health Concerns Infection Onset Date Last Indicated Resolved Time Respiratory Syncytial Virus (RSV) 09/14/2024 025 10/12/2024 1:16 AM RESOURCE SPECIALIST TEACHER Assessment Noted Time PHQ-9 Depression Total Score: 1 04/20/20 24 11:16 PM CDT documented as of this encounter
--- OUTSIDE RECORDS SUMMARY | 2024-10-14 10:35 | XMS_ITS | Encounter Summary ---
Author Organization [facility] Address [address] [place] [address] Care Team Providers Care Airport Guide Name Role Phone Unavailable Primary Care Provider Unavailabl e Reason for Visit * Reason Onset Date Comments Nurse Navigation 10/03/2024 Encounter Details Date Type Department Care Team (Late st Contact Info) Description 10/03/2024 Telephone [facility] [address] [facility] [address] [place] [address] Dian Lea, RN Nurse Navigation Social History [...] on file Legal Sex Female 1:37 AM DEPUTY CHIEF EXECUTIVE Gender Identity Not on file Sexual Orientation Not on file documented as of this encounter Miscellaneous Notes * Telephone Encounter - Dian Lea RN - 10/03/2024 9:18 AM CST Pt's spouse Saleem, returned my call at around 9 am this morning and I was able to confirm with themher appointments for this month. He verified they are aware that treatment starts 10/05 and they plan to both travel up here that day for those appointments. He states Yamileth wants to stay home the first couple of weeks of treatment and take medicaid travel each day to see how it goes, and that if it becomes to much for her then she will try staying in the [facility] instead. I also discussed with him what SW informed me of; that medicaid did not have rides arranged for , , or . He states that was weird because he requested rides every Wednesday through Wednesday for the rest of this month. I encouraged him to contact the transport company and double check. [place] he will. He states he will accompany Yamileth to her first couple days of treatment so he can assist her with getting started and understanding what is going on. He says her memory is not very good. Have updated our SW, and we will keep HH arrangement for later this month for now until Yamileth decides for sure if she will need it or not. TY CHIEF EXECUTIVE documented in this encounter Plan of Treatment Upcoming Encounters Date Type Department Care Team (Late st Contact Info) Description 10/16/2024 11:00 AM DEPUTY CHIEF EXECUTIVE Appointment [facility] Oncology [facility] [address] [facility] [address] [place] [address] Rashmi Dumont MD [address] [facility] [address] [place] [phone] [facility] Oncology, Infusion 8 10/16/2024 1:45 PM DEPUTY CHIEF EXECUTIVE Appointment [facility] Radiation [facility] [address] [facility] [address] [place] [address] Karla Goldberg MD [address] [place] [address] 10/17/2024 1:45 PM DEPUTY CHIEF EXECUTIVE Appointment [facility] Radiation [facility] [address] [facility] [address] [place] [address] Karla Goldberg MD [address] [place] [phone] 10/18/2024 1:45 PM DEPUTY CHIEF EXECUTIVE Appointment [address] [address] Karla Goldberg MD [address] [place] [phone] 10/19/2024 1:45 PM DEPUTY CHIEF EXECUTIVE Appointment [address] [phone] Karla Goldberg MD [address] [place] [phone] 10/20/2024 1:45 PM DEPUTY CHIEF EXECUTIVE Appointment [address] [address] Karla Goldberg MD [address] [place] [phone] 10/23/2024 1:45 PM DEPUTY CHIEF EXECUTIVE Appointment [address] [phone] Karla Goldberg MD [address] [place] [phone] 10/24/2024 11:30 AM DEPUTY CHIEF EXECUTIVE Office Visit [facility] Ear Nose and Throat Head Neck SGF [address] [place] [address] Chris Flores MD [address] [place] [phone] 10/24/2024 1:45 PM DEPUTY CHIEF EXECUTIVE Appointment [address] [address] Karla Goldberg MD [address] [place] [phone] 10/25/2024 1:45 PM DEPUTY CHIEF EXECUTIVE Appointment [address] [phone] Karla Goldberg MD [address] [place] [phone] 10/26/2024 1:45 PM DEPUTY CHIEF EXECUTIVE Appointment [address] [phone] Karla Goldberg MD [address] [place] [phone] 10/27/2024 1:45 PM DEPUTY CHIEF EXECUTIVE Appointment [address] [phone] Karla Goldberg MD [address] [place] [phone] 10/30/2024 1:45 PM CDT Appointment [address] [phone] Karla Goldberg MD [address] [place] [phone] 10/31/2024 1:45 PM CDT Appointment [address] [phone] Karla Golbderg MD [address] [place] [phone] 11/01/2024 1:45 PM CDT Appointment [address] [phone] Karla Goldberg MD [address] [place] [phone] 11/02/2024 1:45 PM CDT Appointment [address] [phone] Karla Goldberg MD [address] [place] [phone] 11/03/2024 1:45 PM CDT Appointment [address] [phone] Karla Goldberg MD [address] [place] [phone] 11/06/2024 1:45 PM CDT Appointment [address] [phone] Karla Goldberg MD [address] [place] [phone] 11/07/2024 1:45 PM CDT Appointment [address] [phone] Karla Goldberg MD [address] [place] [phone] 11/08/2024 1:45 PM CDT Appointment [address] [phone] Karla Goldberg MD [address] [place] [phone] 11/09/2024 1:45 PM CDT Appointment [address] [phone] Karla Goldberg MD [address] [place] [phone] 11/10/2024 1:45 PM CDT Appointment [address] [phone] Karla Goldberg MD [address] [place] [phone] 11/13/2024 1:45 PM CDT Appointment [address] [phone] Karla Goldberg MD [address] [place] [phone] 11/14/2024 1:45 PM CDT Appointment [address] [phone] Karla Goldberg MD [address] [place] [phone] 11/15/2024 12:45 PM CDT Appointment [address] [phone] Karla Goldberg MD [address] [place] [phone] 11/16/2024 12:45 PM CDT Appointment [address] [phone] Karla Goldberg MD [address] [place] [phone] 11/17/2024 1:45 PM CDT Appointment [address] [phone] Karla Goldberg MD [address] [place] [phone] 11/20/2024 1:45 PM CDT Appointment [address] [phone] Karla Goldberg MD [address] [place] [phone] 11/21/2024 1:45 PM CDT Appointment [address] [phone] Karla Goldberg MD [address] [place] [phone] 11/22/2024 1:45 PM CDT Appointment [address] [phone] Karla Goldberg MD [address] [place] [phone] 11/23/2024 1:45 PM CDT Appointment [address] [phone] Karla Goldberg MD [address] [place] [phone] 11/24/2024 1:45 PM CDT Appointment [address] [phone] Karla Goldberg MD [address] [place] [phone] 11/27/2024 1:45 PM CDT Appointment [address] [phone] Karla Goldberg MD [address] [place] [phone] 11/28/2024 1:45 PM CDT Appointment [address] [phone] Karla Goldberg MD [address] [place] [phone] documented as of this encounter Visit Diagnoses Not on filedocumented in this encounter Additional Health Concerns Infection Onset Date Last Indicated Resolved Time Respiratory Syncytial Virus (RSV) 09/14/2024 025 10/12/2024 1:16 AM DEPUTY CHIEF EXECUTIVE Assessment Noted Time PHQ-9 Depression Total Score: 1 04/20/20 11:16 PM CDT documented as of this encounter
--- OUTSIDE RECORDS SUMMARY | 2024-10-14 10:35 | XMS_ITS | Encounter Summary ---
Author Organization [facility] Address [address] [place] [address] Care Team Providers Care Hematology Technologist Name Role Phone Unavailable Primary Care Provider Unavailabl e Encounter Details Date Type Department Care Team (Latest Contact Info) Description 10/02/2024 8:00 AM GENETIC PHYSICIAN - 10/02/2024 11:59 PM GENETIC PHYSICIAN Hospital Encounter [facility] [address] [facility] [address] [place] [address] Karla Goldberg MD [address] [place] [address] Discharge Disposition: Home or Self [...] on file Legal Sex Female 1:37 AM GENETIC PHYSICIAN Gender Identity Not on file Sexual Orientation Not on file documented as of this encounter Medications at Time of Discharge naloxone (NARCAN) 4 mg/spray [place], Non-Aerosol EMERGENCY USE ONLY: Administer 1 spray (4 mg) in one nostril one time. May repeat in alternating nostrils every 2-3 min until responsive or EMS arrives. 2 Each 3 09/28/2024 5:11 PM GENETIC PHYSICIAN 5 trach supplies Surgery Date: 09/17/2025 Length of Need: 99 months Charlie resendez, Size 6 FR Cuffed: no, Fenestrated: no,1 per 3 mo, Inner cannula yes 1 per day, trach care kits 1 per day 1 Each 5 traMADoL (ULTRAM) 50 mg tabletIndications :Laryngeal squamous cell carcinoma (CMS/HCC) Take 1 Tablet (50 mg) by mouth every 8 hours as needed for Pain. 21 Tablet 4 atorvastatin (LIPITOR) 80 mg tablet 80 mg by G Tube route daily at bedtime. 4 bisacodyL (DULCOLAX) 10 mg Suppository Insert 10 mg by rectum 1 time daily as needed. 4 budesonide (PULMICORT RESPULE) 0.5 mg/2 mL Suspension for Nebulization Take 0.5 mg by inhalation 2 times daily. 4 aspirin (RISA CHEWABLE) 81 mg Tablet, Chewable 81 mg by G Tube route daily. 4 nitroglycerin (NITROSTAT) 0.4 mg Tablet, Sublingual Place 0.4 mg under tongue every 5 minutes as needed. 4 midodrine (PROAMATINE) 5 mg tablet Take 1 Tablet (5 mg) by mouth 2 times daily for 14 days. 28 Tablet 09/28/2024 5:11 PM GENETIC PHYSICIAN 5 10/12/19 25 ondansetron (ZOFRAN ODT) 8 mg Tablet, Rapid Dissolve Dissolve 1 tablet on top of tongue then swallow with saliva every 8 hours as needed for nausea or vomiting 30 Tablet 4 10/05/19 25 ALPRAZolam (Xanax) 0.25 mg tabletIndications :Laryngeal squamous cell carcinoma (CMS/HCC) Take 1 Tablet (0.25 mg) by mouth see administration instructions. Take 1 hour prior to scan. May repeat once as needed. 2 Tablet 4 10/05/19 25 clopidogreL (PLAVIX) 75 mg Tablet 75 mg by G Tube route daily. 10/05/19 PARoxetine HCl (PAXIL) 20 mg tablet 20 mg by G Tube route daily. 10/05/19 documented as of this encounter Plan of Treatment Upcoming Encounters Date Type Department Care Team (Late st Contact Info) Description 10/16/2024 11:00 AM GENETIC PHYSICIAN Appointment [facility] [address] [place] [address] Rashmi Dumont MD [address] [place] [address] [address] [place] [address] [facility], [facility] 8 10/16/2024 1:45 PM GENETIC PHYSICIAN Appointment [address] [place] [address] Karla Goldberg MD [address] [place] [phone] 10/17/2024 1:45 PM GENETIC PHYSICIAN Appointment [address] [phone] Karla Goldberg MD [address] [place] [phone] 10/18/2024 1:45 PM GENETIC PHYSICIAN Appointment [address] [phone] Karla Goldberg MD [address] [place] [phone] 10/19/2024 1:45 PM GENETIC PHYSICIAN Appointment [address] [phone] Karla Goldberg MD [address] [place] [phone] 10/20/2024 1:45 PM GENETIC PHYSICIAN Appointment [facility] [address] [place] [phone] Karla Goldberg MD [address] [place] [phone] 10/23/2024 1:45 PM GENETIC PHYSICIAN Appointment [address] [phone] Karla Goldberg MD [address] [place] [phone] 10/24/2024 11:30 AM GENETIC PHYSICIAN Office Visit [facility] [address] [place] [phone] Chris Flores MD [address] DAVID [address] [place] [address] 10/24/2024 1:45 PM GENETIC PHYSICIAN Appointment [address] [phone] Karla Goldberg MD [address] [place] [phone] 10/25/2024 1:45 PM GENETIC PHYSICIAN Appointment [address] [phone] Karla Goldberg MD [address] [place] [phone] 10/26/2024 1:45 PM GENETIC PHYSICIAN Appointment [address] [phone] Karla Goldberg MD [address] [place] [phone] 10/27/2024 1:45 PM GENETIC PHYSICIAN Appointment [address] [phone] Karla Goldberg MD [address] [place] [phone] 10/30/2024 1:45 PM CDT Appointment [address] [phone] Karla Goldberg MD [address] [place] [phone] 10/31/2024 1:45 PM CDT Appointment [address] [phone] Karla Goldberg MD [address] [place] [phone] 11/01/2024 1:45 PM CDT Appointment [address] [phone] Karla Goldberg MD [address] [place] [phone] 11/02/2024 1:45 PM CDT Appointment [address] [phone] Karla Goldberg MD [address] [place] [phone] 11/03/2024 1:45 PM CDT Appointment [address] [phone] Karla Goldberg MD [address] [place] [phone] 11/06/2024 1:45 PM CDT Appointment [address] [phone] Karla Goldberg MD [address] [place] [phone] 11/07/2024 1:45 PM CDT Appointment [address] [phone] Karla Goldberg MD [address] [place] [phone] 11/08/2024 1:45 PM CDT Appointment [address] [phone] Karla Goldberg MD [address] [place] [phone] 11/09/2024 1:45 PM CDT Appointment [address] [phone] Karla Goldberg MD [address] [place] [phone] 11/10/2024 1:45 PM CDT Appointment [address] [phone] Karla Goldberg MD [address] [place] [phone] 11/13/2024 1:45 PM CDT Appointment [address] [phone] Karla Goldberg MD [address] [place] [phone] 11/14/2024 1:45 PM CDT Appointment [address] [phone] Karla Goldberg MD [address] [place] [phone] 11/15/2024 12:45 PM CDT Appointment [address] [phone] Karla Goldberg MD [address] [place] [phone] 11/16/2024 12:45 PM CDT Appointment [address] [phone] Karla Goldberg MD [address] [place] [phone] 11/17/2024 1:45 PM CDT Appointment [address] [phone] Karla Goldberg MD [address] [place] [phone] 11/20/2024 1:45 PM CDT Appointment [address] [phone] Karla Goldberg MD [address] [place] [phone] 11/21/2024 1:45 PM CDT Appointment [address] [phone] Karla Goldberg MD [address] [place] [phone] 11/22/2024 1:45 PM CDT Appointment [address] [phone] Karla Goldberg MD [address] [place] [phone] 11/23/2024 1:45 PM CDT Appointment [address] [phone] Karla Goldberg MD [address] [place] [phone] 11/24/2024 1:45 PM CDT Appointment [address] [phone] Karla Goldberg MD [address] [place] [phone] 11/27/2024 1:45 PM CDT Appointment [facility] [address] [phone] Karla Goldberg MD [address] [place] [phone] 11/28/2024 1:45 PM CDT Appointment [facility] [address] [place] [phone] Karla Goldberg MD [address] [place] [phone] documented as of this encounter Visit Diagnoses Not on filedocumented in this encounter Additional Health Concerns Infection Onset Date Last Indicated Resolved Time Respiratory Syncytial Virus (RSV) 09/14/2024 025 10/12/2024 1:16 AM GENETIC PHYSICIAN Assessment Noted Time PHQ-9 Depression Total Score: 1 04/20/20 24 11:16 PM CDT documented as of this encounter
--- OUTSIDE RECORDS SUMMARY | 2024-10-14 10:35 | XMS_ITS | Encounter Summary ---
Author Organization [facility] Address [address] [place] [address] Care Team Providers Care Carpet Journeyman Name Role Phone Anu Thompson Primary Care Provider Reason for Visit * Reason Comments Shortness of Breath Intermittent SOB; blood pressure Lower BP at cancer c enter and for EMS * Auth/Cert (Routine) Specialty Diagnoses / Procedures Referred By Celso t Referred To Contact Emergency Medicine [facility] [address] [place] [address] Phone: tel: fax: Referral ID Status Reason Start Date Expiration Date Visits Re quested Visits Authorized [id number] 1 1 Encounter Details Date Type Department Care Team (Latest Contact Info) Description 09/13/2024 4:22 PM MACHINE SIGN WRITER - 09/28/2024 5:21 PM MACHINE SIGN WRITER Hospital Encounter [facility] [address] [place] [address] Humberto Phillip MD [address] [place] [address] Milan Cook MD [address] [place] [address] Savannah Garcia MD [address] [place] [address] Wilfredo Harmon MD [address] [place] [address] Arlyn Kate MD [address] [place] [address] Belle Garcia MD [address] [place] [address] Laryngeal squamous cell carcinoma (CMS/HCC) Discharge Disposition: Home or Self Care Social [...] on file Legal Sex Female 1:37 AM MACHINE SIGN WRITER Gender Identity Not on file Sexual Orientation Not on file documented as of this encounter Last Filed Vital Signs Vital Sign Reading Time Taken Comments Blood Pressure 138/80 09/28/2024 3:41 PM MACHINE SIGN WRITER Pulse 75 09/28/2024 3:41 PM MACHINE SIGN WRITER Temperature 36.5 ??C (97.7 ??F) 09/28/2024 3:41 PM CS T Respiratory Rate 18 09/28/2024 3:41 PM MACHINE SIGN WRITER Oxygen Saturation 96% 09/28/2024 3:41 PM MACHINE SIGN WRITER Inhaled Oxygen Concentration - - Weight 85.9 kg (189 lb 6 oz) 09/28/2024 3:56 AM MACHINE SIGN WRITER Height 165.1 cm (5' 5 ) 09/15/2024 9:00 PM MACHINE SIGN WRITER Body Mass Index 31.51 09/15/2024 9:00 PM MACHINE SIGN WRITER documented in this encounter Discharge Summaries * Belle Garcia MD - 09/28/2024 2:55 PM CST Images from the original note were not included. [facility] Hospitalist- Discharge Summary Ventura Elmore 49 y.o. female 1975 CSN: [id number] Date of Admission: 09/13/2024 Date of Discharge: 09/28/2024 LOS: 15 days Discharging Physician: Belle Garcia MD PCP: No primary care provider on file. Code Status at Discharge: Full Code Dispo: Home Labs and studies from this hospitalization needing follow up: CBC and Basic Metabolic Panel (BMP) in 1 week Abnormal Imaging: Follow up with PCP: Follow-up: You must follow up with No primary care provider on file. in 3-5 days Follow up with Consultants: With in oncology and radiation in 1 weeks. Discharge Condition: improved to baseline Primary Discharge Diagnosis: Laryngeal squamous cell carcinoma (CMS/HCC) Other Active medical issues also addressed during this admission: Active Hospital Problems Diagnosis Hypotension Multifocal pneumonia Acute respiratory failure with hypoxia (CMS/HCC) Pneumonia due to respiratory syncytial virus (RSV) Hx of laryngeal cancer Acute renal failure superimposed on chronic kidney disease Laryngeal squamous cell carcinoma (CMS/HCC) Essential hypertension Bipolar disorder, unspecified (CMS/HCC) CKD (chronic kidney disease) COPD (chronic obstructive pulmonary disease) (CMS/HCC) Resolved Hospital Problems Diagnosis Date Resolved Hypovolemic shock (CMS/HCC) 09/16/2024 Severe sepsis with septic shock (CMS/HCC) 09/16/2024 HOSPITAL COURSE: Please see H and P for full details on admission, symptoms and initial care. Patient is a 49-year-old female with past medical history of laryngeal squamous cell carcinoma s/p tracheostomy/PEG who presented after evaluation at oncologist office for hypotension. Initially admitted for concern of septic shock to the ICU requiring pressors which were ultimately weaned off and patient was downgraded to the medical floor. Cultures however remained negative throughout. Patient noted to have poor dentition which was thought to be a possible source and underwent teeth extraction 09/17/2024 with oral surgery. Antibiotics were de- escalated and patient completed appropriate duration of therapy. Patient was evaluated by oncology during current hospital stay with plans for chemoradiation a week after dental extractions. Patient underwent CT simulation for radiation planning on 09/26/2024. In the meantime, patient had reported that she does not have a place to stay hence care team worked on LTC placement. However patient had multiple barriers to discharge including, no income to provide to LTC, outpatient follow-up with radiation/chemo, appointment transportation etc. Discussed at bedside today that patient currently pending acceptance at a facility and otherwise medicallyready to discharge with outpatient follow-up to start chemoradiation as soon as she discharges. Patient reported that she would rather discharge home with her at this time. She reported that she does own the property and would like to go home. Patient was on Airvo 30 L 30% and was slowly weaned off to her baseline 4 L of oxygen. Patient was observed on the 4 L of oxygen for 2 hours and she continued to saturate around 98%. This is her baseline oxygen requirements at home. was updated regarding discharge plan and patient was discharged in a stable condition. Oncology was also updated on the plan. Antihypertensives were held at the time of discharge. Patient discharged on midodrine 5 mg twice daily PCP COMMUNICATION : No primary care provider on file. via [employer] communication MEDICATION CHANGES (significant): Hold home antihypertensives Continue midodrine 5 mg twice daily until follow-up with PCP to reassess if needs to be continued MEDICATION RECONCILIATION: Current and discharge medications reviewed and reconciled: Yes Consultants: IP CONSULT TO IV TEAM IP CONSULT TO NUTRITION SERVICES IP CONSULT TO IV TEAM IP CONSULT TO IV TEAM IP CONSULT TO CASE MANAGEMENT Procedures performed: Procedure(s) (LRB): TEETH MULTIPLE EXTRACTION (N/A) DISCHARGE MEDICATIONS: Medication List START taking these medications midodrine 5 mg tablet Commonly known as: PROAMATINE Take 1 Tablet (5 mg) by mouth 2 times daily for 14 days. Signed by: Dr. Mike Garcia Quantity: 28 Tablet Refills: 0 naloxone 4 mg/spray [place], Non-Aerosol Commonly known as: NARCAN EMERGENCY USE ONLY: Administer 1 spray (4 mg) in one nostril one time. May repeat in alternating nostrils every 2-3 min until responsive or EMS arrives. Signed by: Dr. Mike Garcia Quantity: 2 Each Refills: 3 CONTINUE taking these medications ALPRAZolam 0.25 mg tablet Commonly known as: Xanax Take 1 Tablet (0.25 mg) by mouth see administration instructions. Take 1 hour prior to scan. May repeat once as needed. Signed by: Dr. Renaldo Dumont Quantity: 2 Tablet Refills: 0 aspirin 81 mg Tablet, Chewable Commonly known as: RISA CHEWABLE 81 mg by G Tube route daily. Refills: 0 atorvastatin 80 mg tablet Commonly known as: LIPITOR 80 mg by G Tube route daily at bedtime. Refills: 0 bisacodyL 10 mg Suppository Commonly known as: DULCOLAX Insert 10 mg by rectum 1 time daily as needed. Refills: 0 budesonide 0.5 mg/2 mL Suspension for Nebulization Commonly known as: PULMICORT RESPULE Take 0.5 mg by inhalation 2 times daily. Refills: 0 clopidogreL 75 mg Tablet Commonly known as: PLAVIX 75 mg by G Tube route daily. Refills: 0 * dexAMETHasone 4 mg tablet Commonly known as: DECADRON Take 8 mg in the morning on Day 2 followed by 8 mg twice a day on Days 3-4 of each chemotherapy cycle. Signed by: Dr. Renaldo Dumont Quantity: 30 Tablet Refills: 1 * dexAMETHasone 4 mg tablet Commonly known as: DECADRON Take 1 Tablet (4 mg) by mouth 2 times daily. Signed by: Nurse Everardo Astudillo Quantity: 30 Tablet Refills: 0 nitroglycerin 0.4 mg Tablet, Sublingual Commonly known as: NITROSTAT Place 0.4 mg under tongue every 5 minutes as needed. Refills: 0 ondansetron 8 mg Tablet, Rapid Dissolve Commonly known as: ZOFRAN ODT Dissolve 1 tablet on top of tongue then swallow with saliva every 8 hours as needed for nausea or vomiting Signed by: Nurse Everardo Astudillo Quantity: 30 Tablet Refills: 0 PARoxetine HCl 20 mg tablet Commonly known as: PAXIL 20 mg by G Tube route daily. Refills: 0 prochlorperazine maleate 10 mg tablet Commonly known as: COMPAZINE Take 1 Tablet (10 mg) by mouth every 6 hours as needed for Nausea/Emesis. Signed by: Nurse Everardo Astudillo Quantity: 30 Tablet Refills: 0 risperiDONE 2 mg tablet Commonly known as: RisperDAL Take 2 mg by mouth daily. Refills: 0 traMADoL 50 mg tablet Commonly known as: ULTRAM Take 1 Tablet (50 mg) by mouth every 8 hours as needed for Pain. Signed by: Dr. Renaldo Dumont Quantity: 21 Tablet Refills: 0 * !!Potential duplicate medications found. Review medication list carefully. STOP taking these medications cloNIDine HCL 0.1 mg tablet Commonly known as: CATAPRES hydrALAZINE 50 mg tablet Commonly known as: APRESOLINE lisinopriL 20 mg tablet Commonly known as: PRINIVIL metoprolol tartrate 25 mg tablet Commonly known as: LOPRESSOR Where to Get Your Medications These medications were sent to [facility] [address] [address] Hours: Wednesday - Wednesday: 7 am - 9 pm; Wednesday - Wednesday: 8 am - 4 pm midodrine 5 mg tablet naloxone 4 mg/spray [place], Non-Aerosol Future Appointments Date Time Provider Department Center 10/05/2024 8:30 AM Guerda Castillo NP [facility] 10/05/2024 9:00 AM Spr[facility] Oncology, Infusion 10 ONCINFCTR [facility] 10/05/2024 1:45 PM [facility] TOMOTHERAPY [facility] 10/06/2024 1:45 PM [facility] TOMOTHERAPY [facility] 10/09/2024 1:45 PM [facility] TOM[facility]AP[facility] 10/10/2024 1:45 PM [facility] TOMOTHERAPY [facility] 10/11/2024 1:45 PM [facility] TOM[facility]AP[facility] 10/12/2024 1:45 PM [facility] TOMOTHERAPY [facility] 10/13/2024 1:45 PM [facility] TOMOTHERAPY [facility] 10/16/2024 1:45 PM [facility] TOMOTHERAPY [facility] 10/17/2024 1:45 PM [facility] TOMOTHERAPY [facility] 10/18/2024 1:45 PM [facility] TOMOTHERAPY [facility] 10/19/2024 1:45 PM [facility] TOMOTHERAPY [facility] 10/20/2024 1:45 PM [facility] TOMOTHERAPY [facility] 10/23/2024 1:45 PM [facility] TOMOTHERAPY [facility] 10/24/2024 11:30 AM Chris Flores MD [email or web address] 10/24/2024 1:45 PM [facility] TOMOTHERAPY [facility] 10/25/2024 1:45 PM [facility] TOMOTHERAPY [facility] 10/26/2024 1:45 PM [facility] TOMOTHERAPY [facility] 10/27/2024 1:45 PM [facility] TOMOTHERAPY [facility] 10/30/2024 1:45 PM [facility] TOMOTHERAPY [facility] 10/31/2024 1:45 PM [facility] TOMOTHERAPY [facility] 11/01/2024 1:45 PM [facility] TOMOTHERAPY [facility] 11/02/2024 1:45 PM [facility] TOMOTHERAPY [facility] 11/03/2024 1:45 PM [facility] TOMOTHERAPY [facility] 11/06/2024 1:45 PM [facility] TOMOTHERAPY [facility] 11/07/2024 1:45 PM [facility] TOMOTHERAPY [facility] 11/08/2024 1:45 PM [facility] TOMOTHERAPY [facility] 11/09/2024 1:45 PM [facility] TOMOTHERAPY [facility] 11/10/2024 1:45 PM [facility] TOMOTHERAPY [facility] 11/13/2024 1:45 PM [facility] TOMOTHERAPY [facility] 11/14/2024 1:45 PM [facility] TOMOTHERAPY [facility] 11/15/2024 1:45 PM [facility] TOMOTHERAPY [facility] 11/16/2024 1:45 PM [facility] TOMOTHERAPY [facility] 11/17/2024 1:45 PM [facility] TOMOTHERAPY [facility] 11/20/2024 1:45 PM [facility] TOMOTHERAPY [facility] 11/21/2024 1:45 PM [facility] TOMOTHERAPY [facility] 11/22/2024 1:45 PM [facility] TOMOTHERAPY [facility] Activity level: up as tolerated Diet: DIET GENERAL Effective Now Wound Care: Not Applicable DISCHARGE EXAM: BP 107/81 (BP Location: Left arm, Patient Position (BP): Supine) Pulse 62 Temp 97.3 ??F (36.3 ??C) (Temporal) Resp 20 Ht 5' 5 (1.651 m) Wt 85.9 kg (189 lb 6 oz) SpO2 98% BMI 31.51 kg/m?? Last documented weight: Weight: 85.9 kg (189 lb 6 oz) (09/28/24 0356) General: alert, in no distress Neurologic: Grossly normal HEENT: atraumatic, Normocephalic, tracheostomy in place Lungs: clear to auscultation bilaterally, normal respiratory effort Heart: normal rate and regular rhythm, S1 and S2 normal Abdomen: Soft, non-tender. Bowel sounds normal. No masses, no organomegaly. Extremities: extremities normal, atraumatic, no cyanosis or edema, normal strength, normal tone Skin: negative Home Healthcare Is this patient being discharged with Home Health? No Total time spent on discharge services today including examining and educating the patient and available family members, writing prescriptions and reviewing the discharge medication list, documentingthis discharge summary and coordinating outpatient care and follow up required 30 minutes. INE SIGN WRITER documented in this encounter Discharge Instructions * Discharge Instructions* Riddhi Pugh RN - 09/20/2024 8:42 AM MACHINE SIGN WRITER Sarika Discharge Instructions Discharge & Transfer patient to: Home Symptoms/Diagnosis: Laryngeal squamous cell carcinoma (CMS/HCC) Procedures Performed, if any: Procedure(s) (LRB): TEETH MULTIPLE EXTRACTION (N/A) Follow up PCP Your physician, No primary care provider on file., has been notified of this hospitalization. Follow-up: You must follow up with No primary care provider on file. in 3-5 days Follow up consultants Future Appointments Date Time Provider Department Center 10/05/2024 8:30 AM Guerda Castillo NP [facility] 10/05/2024 9:00 AM Spr[facility] Oncology, Infusion 10 ONCINFCTR [facility] 10/05/2024 1:45 PM [facility] TOMOTHERAPY [facility] 10/06/2024 1:45 PM [facility] TOMOTHERAPY [facility] 10/09/2024 1:45 PM [facility] TOMOTHERAPY [facility] 10/10/2024 1:45 PM [facility] TOMOTHERAPY [facility] 10/11/2024 1:45 PM [facility] TOMOTHERAPY [facility] 10/12/2024 1:45 PM [facility] TOMOTHERAPY [facility] 10/13/2024 1:45 PM [facility] TOMOTHERAPY [facility] 10/16/2024 1:45 PM [facility] TOMOTHERAPY [facility] 10/17/2024 1:45 PM [facility] TOMOTHERAPY [facility] 10/18/2024 1:45 PM [facility] TOMOTHERAPY [facility] 10/19/2024 1:45 PM [facility] TOMOTHERAPY [facility] 10/20/2024 1:45 PM [facility] TOMOTHERAPY [facility] 10/23/2024 1:45 PM [facility] TOMOTHERAPY [facility] 10/24/2024 11:30 AM Chris Flores MD [email or web address] 10/24/2024 1:45 PM [facility] TOMOTHERAPY [facility] 10/25/2024 1:45 PM [facility] TOMOTHERAPY [facility] 10/26/2024 1:45 PM [facility] TOMOTHERAPY [facility] 10/27/2024 1:45 PM [facility] TOMOTHERAPY [facility] 10/30/2024 1:45 PM [facility] TOMOTHERAPY [facility] 10/31/2024 1:45 PM [facility] TOMOTHERAPY [facility] 11/01/2024 1:45 PM [facility] TOMOTHERAPY [facility] 11/02/2024 1:45 PM [facility] TOMOTHERAPY [facility] 11/03/2024 1:45 PM [facility] TOMOTHERAPY [facility] 11/06/2024 1:45 PM [facility] TOMOTHERAPY [facility] 11/07/2024 1:45 PM [facility] TOMOTHERAPY [facility] 11/08/2024 1:45 PM [facility] TOMOTHERAPY [facility] 11/09/2024 1:45 PM [facility] TOMOTHERAPY [facility] 11/10/2024 1:45 PM [facility] TOMOTHERAPY [facility] 11/13/2024 1:45 PM [facility] TOMOTHERAPY [facility] 11/14/2024 1:45 PM [facility] TOMOTHERAPY [facility] 11/15/2024 1:45 PM [facility] TOMOTHERAPY [facility] 11/16/2024 1:45 PM [facility] TOMOTHERAPY [facility] 11/17/2024 1:45 PM [facility] TOMOTHERAPY [facility] 11/20/2024 1:45 PM [facility] TOMOTHERAPY [facility] 11/21/2024 1:45 PM [facility] TOMOTHERAPY [facility] 11/22/2024 1:45 PM [facility] TOMOTHERAPY [facility] Activity level: up as tolerated DIET: DIET GENERAL Effective Now Wound Care: Not Applicable Other Comments: Oncology follow up oncology follow up scheduled for WednesdaySeptember 26, labs at 7:40, clinic visit at 8:[address] Dumont. Please hold your blood pressure medications at home as your blood pressure has been low normal at the hospital Please continue to take midodrine 5 mg twice a day to maintain your blood pressure Please follow up with your primary care provider and Oncologist to go over your medications. They may need further adjustment Follow up in the Emergency Room For any recurrence or worsening of admission concerns, chest pain, palpitations, shortness of breath, coughing blood, nausea, vomiting, diarrhea, pain, fever, chills, bleeding, bloody or tarry stools, change to urine or bowel output. Contact hospitalist office [phone] for questions if patients are [facility]. INE SIGN WRITER INE SIGN WRITER INE SIGN WRITER INE SIGN WRITER INE SIGN WRITER * Attachments The following attachments cannot be sent through Care Everywhere. * Midodrine Oral Tablet (MIDODRINE - ORAL) (Tamazight) documented in this encounter Medications at Time of Discharge naloxone (NARCAN) 4 mg/spray [place], Non-Aerosol EMERGENCY USE ONLY: Administer 1 spray (4 mg) in one nostril one time. May repeat in alternating nostrils every 2-3 min until responsive or EMS arrives. 2 Each 3 09/28/2024 5:11 PM MACHINE SIGN WRITER 02/06/202 5 trach supplies Surgery Date: 09/17/2025 Length [...] 14 days. 28 Tablet 09/28/2024 5:11 PM MACHINE SIGN WRITER 5 10/12/19 25 ondansetron (ZOFRAN ODT) 8 [...] 75 mg by G Tube route daily. 4 10/05/19 25 PARoxetine HCl (PAXIL) 20 mg tablet 20 mg by G Tube route daily. 4 10/05/19 25 documented as of this encounter Progress Notes * Debbie Kirkpatrick RN - 09/28/2024 5:13 PM CST Discharge teaching given to pt and verbalized understanding. Pt is going with her and taken by wheelchair. Pt understand to follow oncology appointments and to inquire to stay at the hospitality suite whileon treatment. Pt understand to call DME where oxygen company to get trach inner cannula supplies. Hospital out of this kind of trach and will be available on Oct 02. INE SIGN WRITER * Mahendra Kwong SLP - 09/28/2024 2:52 PM CST Contacted by staff registered nurse regarding pt's diet (IDDSI 6/thin). RD stated pt would like biscuits and gravy which is not an option for an IDDSI 6 diet. Pt participated in an MBSS on 09/15 with nofindings of aspiration and a functional oral phase, a regular diet with thin liquids was recommended. Contacted RN who reports no concerns with swallowing at this time. Upgraded pt's diet to reflect most recent recommendations from instrumentation (regular/thin) and allow for the least restrictive diet. Please contact SHIPPING RECEIVING CLERK for questions or if the pt's condition should change. Mahendra Kwong M.S. [facility]-SHIPPING RECEIVING CLERK Acute Speech Therapy Charge Zone Phone #[phone] Acute Speech Therapy Charge Pager #[phone] INE SIGN WRITER INE SIGN WRITER * Belle Garcia MD - 09/27/2024 9:37 PM CST Images from the original note were not included. Your life is our life's work [facility] Hospitalist/Hospital Medicine Progress Note LOS: 14 days Room/Bed: 2305/ Patient name: Ventura Elmore Date of : 1975 HOSPITAL COURSE SUMMARY: 49 y.o. female admitted 09/13/2024 with hypotension and tachycardia. Recently hospitalized at [place] between 08/22/2024 through 08/25/2024. Seen by her oncologist and noted to be hypotensive in office and was transferred to hospital for evaluation. She is homeless, has been staying with a friend.Was awaiting to undergo chemo for her SCC of her larynx, has trach and PEG in place. She was evaluated in ED and noted to be hypotensive after IVF bolus and initiated on levophed. She was transferredto the ICU under CCM management. ICU Care Plan Summary on 09/15: This is a 49-year-old female with a past medical history of laryngeal squamous cell carcinoma, who is currently being managed for septic shock requiring pressors, also has a history of trach/PEG and carcinoma as above. RSV positive, supportive care. Concern for septic shock on admission, no growth from culture data thus far. She does have poor dentition and this may have also been a possible source. De-escalated from broad-spectrum vancomycin/cefepime to short course of ceftriaxone. CT chest on admission mentioned possible scattered consolidations, hence speech therapy has been consulted to evaluate for possible silent aspiration. ICU timeline: 09/13: Admitted to ICU, on pressors 09/14: continued on pressors, broad spectrum antibiotics de-escalated. Oncology consulted. 09/15: Off of pressors. Oral surgery consulted for teeth extraction. Transfer out of ICU Hospitalist timeline: 09/16: Awaiting teeth extractions. BP stable. Completed antibiotic course. 09/17: Underwent teeth extraction surgery today under anesthesia. 09/18: Patient doing well, s/p teeth extraction yesterday. On Airvo 50%. Pending PT/OT eval for placement 09/19: Patient doing well. PT recommending inpatient rehab. Oncology planning chemoradiation 1 week after dental extractions. Awaiting placement 09/20: Patient doing well. PT recommending inpatient rehab, however patient would want to prioritizechemoradiation for now and would rather go to SNF even if it means she does not get therapy. She isscheduled for follow-up with oncology on 09/26. 09/21-09/22: Patient doing well. Pending SNF placement for long-term care. 09/23: Patient noted to be bradycardic on several occasion, home Lopressor discontinued. Pending level 2 for SNF/LTC 09/24: Awaiting level 2 for SNF/LTC /3: Patient noted to be tachycardic 100-140s today a.m. EKG showing sinus tachycardia. 09/26: Patient planned for CT simulation for radiation planning today. 09/27: Continue current care w/o changes Consultants: IP CONSULT TO IV TEAM IP CONSULT TO NUTRITION SERVICES IP CONSULT TO IV TEAM IP CONSULT TO IV TEAM IP CONSULT TO CASE MANAGEMENT SUBJECTIVE: Evaluated patient at bedside. No complaints ROS: ROS negative except as mentioned above OBJECTIVE: Temp (24hrs), Av.5 ??F (36.4 ??C), Min:97.2 ??F (36.2 ??C), Max:97.8 ??F (36.6 ??C) BP (!) 140/87 (BP Location: Left arm, Patient Position (BP): Sitting) Pulse 76 Temp 97.8 ??F (36.6 ??C) (Temporal) Resp 16 Ht 5' 5 (1.651 m) Wt 82.7 kg (182 lb 5.1 oz) SpO2 95% BMI 30.34 kg/m?? Intake/Output Summary (Last 24 hours) at 09/27/20242136 Last data filed at 09/27/2024 2020 Gross per 24 hour Intake 400 ml Output 1100 ml Net -700 ml Last documented weight: Weight: 82.7 kg (182 lb 5.1 oz) (09/26/24 0429) EXAM: GENERAL: female laying on bed in no acute distress. E/N/M/T: Normal appearing pinna, no ear discharge noted. Nares normal in appearance. Tracheostomy in place. CARDIOVASCULAR: Normal rate, regular rhythm, S1 S2 heard. No peripheral edema noted. RESPIRATORY: on Trach collar at 30% FiO2. Clear to auscultation bilaterally except for patchy rales. GASTROINTESTINAL: Non-distended, soft, non-tender. Bowel sounds normoactive. GENITOURINARY: No suprapubic tenderness. INTEGUMENTARY: Warm, dry. No obvious rashes noted on exposed skin. NEUROLOGIC: Awake, alert and oriented. No new gross focal motor deficits noted. LABORATORY: Recent Labs 09/25/24 0231 09/26/24 0402 09/27/24 0553 WBC 6.5 7.1 6.8 HGB 12.1 11.8* 12.1 HCT 38.5 35.1* 35.9* PLT 228 227 219 Recent Labs 09/25/24 0232 09/26/24 0402 09/27/24 0924 NA 135* 138 140 K 4.3 4.1 3.9 CL 101 104 104 CO2 21* 24 26 CA 9.3 8.9 9.5 BUN 31* 34* 31* CREAT 1.36* 1.56* 1.37* GLUCOSE 97 122* 156* No results for input(s): TOTALPROTEIN , ALBUMIN , BILITOTAL , ALKPHOS , AST , ALT in the last 72 hours. No results for input(s): INR , PT in the last 72 hours. Invalid input(s): PTT No results for input(s): BASETROP , 2HRTROP , DELTA , 6HRTROP in the last 72 hours. Diagnostic testing reviewed by me: Medications were reviewed by me. Current Facility-Administered Medications: [Held by Provider] metoprolol tartrate (LOPRESSOR) tablet 25 mg, 25 mg, Oral, BID, Arlyn Kate MD, 25 mg at 09/25/242106 HYDROcodone-acetaminophen (NORCO) 5-325 mg per tablet 1 Tablet, 1 Tablet, Oral, every 6 hours PRN, Arlyn Kate MD, 1 Tablet at 09/27/242119 hydrOXYzine HCL (ATARAX) tablet 25 mg, 25 mg, Oral, every 8 hours PRN, Arlyn Kate MD, 25 mg at 09/27/24911 midodrine (PROAMATINE) tablet 10 mg, 10 mg, Oral, every 8 hours, Arlyn Kate MD, 10 mg at 09/27/242024 albuterol (PROVENTIL,VENTOLIN) 2.5 mg /3 mL (0.083 %) inhalation solution 2.5 mg, 2.5 mg, Inhalation, resp, now then every 12 hours, Wilfredo Harmon MD, 2.5 mg at 09/27/242053 morphine 4 mg/mL injection 2 mg, 2 mg, IV, every 2 hours PRN, Wilfredo Harmon MD, 2 mg at 09/27/241816 melatonin tablet 3 mg, 3 mg, Oral, at bedtime PRN, Wilfredo Harmon MD, 3 mg at 09/21/242049 sennosides (SENOKOT) tablet 17.2 mg, 17.2 mg, Oral, BID PRN, Wilfredo Harmon MD Saccharomyces boulardii (FLORASTOR) capsule 250 mg, 250 mg, Oral, BID, Wilfredo Harmon MD, 250 mg at 09/27/242025 ALBUTEROL SULFATE 2.5 MG/3 ML (0.083 %) SOLUTION FOR NEBULIZATION (CABINET OVERRIDE), , , , risperiDONE (RisperDAL) tablet 2 mg, 2 mg, Oral, daily, Savannah Garcia MD, 2 mg at 09/27/24 09 sodium chloride flush injection 5 mL, 5 mL, IV, every 12 hours, Savannah Garcia MD, 5 mL at 09/26/24 164 sodium chloride flush injection 5 mL, 5 mL, IV, see admin instructions, Savannah Garcia MD, 5 mL at 09/27/242025 naloxone (NARCAN) 0.4 mg/mL injection 0.1-0.4 mg, 0.1-0.4 mg, IV, see admin instructions, Savannah Garcia MD acetaminophen (TYLENOL) tablet 650 mg, 650 mg, Oral, every 6 hours PRN, Savannah Garcia MD, 650 mg at 09/17/241811 ondansetron (ZOFRAN) 4 mg/2 mL injection 4 mg, 4 mg, IV, every 6 hours PRN, Savannah Garcia MD, 4 mg at 09/17/24 1305 clopidogreL (PLAVIX) tablet 75 mg, 75 mg, G Tube, daily, Savannah Garcia MD, 75 mg at 09/27/24906 aspirin (RISA CHEWABLE) chewable tablet 81 mg, 81 mg, G Tube, daily, Savannah Garcia MD, 81 mg at 09/27/24906 atorvastatin (LIPITOR) tablet 80 mg, 80 mg, G Tube, daily BEDTIME, Savannah Garcia MD, 80 mg at 09/27/242025 budesonide (PULMICORT RESPULE) 0.5 mg/2 mL inhalation solution 0.5 mg, 0.5 mg, Inhalation, resp, daily, Savannah Garcia MD, 0.5 mg at 09/27/24 0756 PARoxetine HCl (PAXIL) tablet 20 mg, 20 mg, G Tube, daily, Savannah Garcia MD, 20 mg at 09/27/24 0907 heparin injection 5,000 Units, 5,000 Units, subCUT, every 8 hours, Savannah Garcia MD, 5,000 Units at 09/27/242025 Primary discharge diagnosis: Laryngeal squamous cell carcinoma ([facility]/HCC) Other active medical issues also addressed during this admission: Active Hospital Problems Diagnosis Multifocal pneumonia Acute respiratory failure with hypoxia ([facility]) Pneumonia due to respiratory syncytial virus (RSV) Hx of laryngeal cancer Acute renal failure superimposed on chronic kidney disease Laryngeal squamous cell carcinoma ([facility]) Essential hypertension Bipolar disorder, unspecified ([facility]) CKD (chronic kidney disease) COPD (chronic obstructive pulmonary disease) ([facility]) Resolved Hospital Problems Diagnosis Date Resolved Hypovolemic shock ([facility]) 09/16/2024 Severe sepsis with septic shock ([facility]) 09/16/2024 ASSESSMENT AND PLAN: Septic shock on presentation Resolved Laryngeal cancer status post tracheostomy Oncology following. Was pending tooth extraction prior to starting treatment. Patient had tooth extraction on 09/17 - CT simulation for radiation 2/ Multifocal pneumonia RSV infection Acute respiratory failure with hypoxia- resolved Completed antibiotic course Continue supportive care -Adequate pulmonary toilet with frequent tracheostomy suction -Continue humidified supplemental oxygen via trach collar, wean as tolerated Chronic dental infection S/p surgical extraction of remaining maxillary and mandibular teeth 09/17 -Pain medication as needed CAD Dyslipidemia Continue aspirin, Plavix, statin -CAPTAIN'S ASSISTANT Lopressor held due to bradycardia Anxiety/Depression/Psychiatric disorder -Continue Paxil, Risperdal -As needed Atarax CKD 3a -Avoid nephrotoxic medications -Renally dose medications -Avoid hypotension Sinus bradycardia EKG showing sinus bradycardia TSH WNL -CAPTAIN'S ASSISTANT Lopressor held -Monitor electrolytes, supplement as needed -Telemetry monitoring No results for input(s): GLUCPOC in the last 72 hours. Code status: Full Code Outpatient follow up: Anticipated Disposition Location: Timeframe: 10/03/2024 Criteria: Patient's understanding of illness: Primary family contact: MDM complexity: [] Mild [] Moderate [] High Belle Garcia MD 09/27/2024, 9:37 PM INE SIGN WRITER * Arlyn Kate MD - 09/26/2024 10:22 AM CST Images from the original note were not included. [employer] is our life's work [facility] Hospitalist/[facility] Medicine Progress note LOS: LOS: 13 days Room/Bed: [facility]/ Patient name: Ventura Elmore Date of : 1975 HOSPITAL COURSE SUMMARY HPI: 49 y.o. female admitted 09/13/2024 with hypotension and tachycardia. Recently hospitalized at [place] between 08/22/2024 through 08/25/2024. Seen by her oncologist today and noted to be hypotensive in office and was transferred to hospital for evaluation. She is homeless, has been staying with a friend. 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 reports in prior documentation of poor historian. She was evaluated in ED and noted to be hypotensive after IVF bolus and initiated on levophed. She was transferred to the ICU under CCM management. ICU Care Plan Summary on 09/15: This is a 49-year-old female with a past medical history of laryngeal squamous cell carcinoma, who is currently being managed for septic shock requiring pressors, also has a history of trach/PEG and carcinoma as above. Hemodynamics have improved. Was weaned off pressor support yesterday and remains off. Will restart CAPTAIN'S ASSISTANT medications as tolerated. Resume CAPTAIN'S ASSISTANT Risperdal. RSV positive, supportive care. Concern for septic shock on admission, no growth from culture data thus far. She does have poor dentition and this may have also been a possible source. De-escalate from broad-spectrum vancomycin/cefepime to short course of ceftriaxone. Reevaluate if necessary. Pneumonia was also considered as possible source, CT chest on admission mentioned possible scattered consolidations, hence speech therapy has been consulted to evaluate for possible silent aspiration. MBS pending for today. Renal function improving. Oncology following with ongoing workup. With clinical status now improved, I have contacted Dr. Jamil office (oral surgery) and relayed that the patient is now stable for surgical intervention. History of laryngeal cancer as above, homeless and unable to obtain care at this time. Case management consulted. May need placement. ICU timeline: 09/13: Admitted to ICU, on pressors 09/14: continued on pressors, broad spectrum antibiotics de-escalated. Oncology consulted. 09/15: Off of pressors. Oral surgery consulted for teeth extraction. Transfer out of ICU Hospitalist timeline: 09/16: Awaiting teeth extractions. BP stable. Completed antibiotic course. 09/17: Underwent teeth extraction surgery today under anesthesia. 09/18: Assumed care today. Patient doing well, s/p teeth extraction yesterday. On Airvo 50%. PendingPT/OT eval for placement 09/19: Patient doing well. PT recommending inpatient rehab. Oncology planning chemoradiation 1 week after dental extractions. Awaiting placement 09/20: Patient doing well. PT recommending inpatient rehab, however patient would want to prioritizechemoradiation for now and would rather go to SNF even if it means she does not get therapy. She isscheduled for follow-up with oncology on 09/26. 09/21-09/22: Patient doing well. Pending SNF placement for long-term care. 09/23: Patient noted to be bradycardic on several occasion, home Lopressor discontinued. Pending level 2 for SNF/LTC 09/24: Awaiting level 2 for SNF/LTC 09/25: Patient noted to be tachycardic 100-140s today a.m. EKG showing sinus tachycardia. 09/26: Patient planned for CT simulation for radiation planning today. Consultants During this admission: IP CONSULT TO IV TEAM IP CONSULT TO NUTRITION SERVICES IP CONSULT TO IV TEAM IP CONSULT TO IV TEAM IP CONSULT TO CASE MANAGEMENT SUBJECTIVE: Patient seen and examined at bedside, no new complaints OBJECTIVE: Temp (24hrs), Av.9 ??F (36.6 ??C), Min:97 ??F (36.1 ??C), Max:98.7 ??F (37.1 ??C) BP 110/74 (BP Location: Left arm, Patient Position (BP): Supine) Pulse 67 Temp 98.7 ??F (37.1 ??C) (Temporal) Resp 16 Ht 5' 5 (1.651 m) Wt 82.7 kg (182 lb 5.1 oz) SpO2 93% BMI 30.34 kg/m?? Intake/Output Summary (Last 24 hours) at 09/26/2024 1022 Last data filed at 09/26/2024 0855 Gross per 24 hour Intake 350 ml Output 900 ml Net -550 ml Last documented weight: Weight: 82.7 kg (182 lb 5.1 oz) (09/26/24 0429) GENERAL: female laying on bed in no acute distress. E/N/M/T: Normal appearing pinna, no ear discharge noted. Nares normal in appearance. Tracheostomy in place. CARDIOVASCULAR: Normal rate, regular rhythm, S1 S2 heard. No peripheral edema noted. RESPIRATORY: on Trach collar at 30% FiO2. Clear to auscultation bilaterally except for patchy rales. GASTROINTESTINAL: Non-distended, soft, non-tender. Bowel sounds normoactive. GENITOURINARY: No suprapubic tenderness. INTEGUMENTARY: Warm, dry. No obvious rashes noted on exposed skin. NEUROLOGIC: Awake, alert and oriented. No new gross focal motor deficits noted. LABORATORY: Recent Labs 09/25/24 0231 09/26/24 0402 WBC 6.5 7.1 HGB 12.1 11.8* HCT 38.5 35.1* PLT 228 227 Recent Labs 09/25/24 0232 09/26/24 0402 NA 135* 138 K 4.3 4.1 CL 101 104 CO2 21* 24 CA 9.3 8.9 BUN 31* 34* CREAT 1.36* 1.56* GLUCOSE 97 122* No results for input(s): TOTALPROTEIN , ALBUMIN , BILITOTAL , ALKPHOS , AST , ALT in the last 72 hours. No results for input(s): INR , PT in the last 72 hours. Invalid input(s): PTT No results for input(s): BASETROP , 2HRTROP , DELTA , 6HRTROP in the last 72 hours. Inpatient Medications and relevant orders were reviewed. ASSESSMENT AND PLAN: Primary Discharge Diagnosis: Laryngeal squamous cell carcinoma (CMS/HCC) Other Active medical issues also addressed during this admission: Active Hospital Problems Diagnosis Multifocal pneumonia Acute respiratory failure with hypoxia (CMS/HCC) Pneumonia due to respiratory syncytial virus (RSV) Hx of laryngeal cancer Acute renal failure superimposed on chronic kidney disease Laryngeal squamous cell carcinoma (CMS/HCC) Essential hypertension Bipolar disorder, unspecified (CMS/HCC) CKD (chronic kidney disease) COPD (chronic obstructive pulmonary disease) ([facility]) Resolved Hospital Problems Diagnosis Date Resolved Hypovolemic shock ([facility]) 09/16/2024 Severe sepsis with septic shock ([facility]) 09/16/2024 PLAN: Septic shock on presentation Resolved Laryngeal cancer status post tracheostomy Oncology following. Was pending tooth extraction prior to starting treatment. Patient had tooth extraction on 09/17 -Patient planned for CT simulation for radiation planning today Multifocal pneumonia RSV infection Acute respiratory failure with hypoxia- resolved Completed antibiotic course Continue supportive care -Adequate pulmonary toilet with frequent tracheostomy suction -Continue humidified supplemental oxygen via trach collar, wean as tolerated Chronic dental infection S/p surgical extraction of remaining maxillary and mandibular teeth 09/17 -Pain medication as needed CAD Dyslipidemia Continue aspirin, Plavix, statin -CAPTAIN'S ASSISTANT Lopressor held due to bradycardia Anxiety/Depression/Psychiatric disorder -Continue Paxil, Risperdal -As needed Atarax CKD 3a -Avoid nephrotoxic medications -Renally dose medications -Avoid hypotension Sinus bradycardia EKG showing sinus bradycardia TSH WNL -CAPTAIN'S ASSISTANT Lopressor held -Monitor electrolytes, supplement as needed -Telemetry monitoring DVT prophylaxis: Heparin, SCDs Outpatient follow up: PCP, Oncology Anticipated Disposition: Location : LTC Criteria: Awaiting LTC placement Understanding of illness: Patient: good DIET DYSPHAGIA Level 6 Soft & Bite-Sized/Soft,; Level 0 Thin, Code status: Full Code Arlyn Kate MD 09/26/2024, 10:22 AM INE SIGN WRITER * Steven Rizvi, PAYTON - 09/26/2024 8:28 AM CST Patient seen/chart reviewed during routine patient care/meal rounds. Nutritional status/assessment: PO intake appears adequate for nutritional needs. No additional acute care nutritional risk factorsidentified. Malnutrition Nutrition Diagnosis: (no findings) (09/14/24918) Recommendation/Plan for follow up: Will continue to follow during weekly patient care/meal rounds, assisting with intake needs as appropriate. Current diet/nutrition support: DIET DYSPHAGIA Level 6 Soft & Bite-Sized/Soft,; Level 0 Thin, Food/Meal: Breakfast (09/25/24922),Intake (%): 100% (02/03/25 0923) Oral Supplement Type: Complete oral supplement-adult (09/14/24 1300) Weight status/changes: Weight: 82.7 kg (182 lb 5.1 oz) (09/26/24 0429) Admission :Weight: 85 kg (187 lb 6.3 oz) (09/13/242029) Height: 5' 5 (165.1 cm) (09/15/24 2100) Body mass index is 30.34 kg/m??. Wt Readings from Last 8 Encounters: 09/26/24 82.7 kg (182 lb 5.1 oz) 09/13/24 80.1 kg (176 lb 9.6 oz) 07/13/24 83.3 kg (183 lb 9.6 oz) 07/13/24 82.1 kg (181 lb) 06/22/24 88.5 kg (195 lb) 04/22/24 88.8 kg (195 lb 11.2 oz) 01/09/24 88 kg (194 lb) 07/21/23 90.4 kg (199 lb 6.4 oz) Additional assessment indices: Juan Jose Score: 20 (09/26/24 0802) Last Bowel Movement (mm/dd/yyyy): 09/24/24 (09/24/242044) Allergies Allergies Allergen Reactions Hydromorphone Dizziness and Headache Labs: Lab Results Component Value Date GLUCOSE 122 (H) 09/26/2024 INE SIGN WRITER * Lise Nielsen LPN - 09/25/2024 9:06 PM CST Pt refuses SCD's. INE SIGN WRITER * Arlyn Kate MD - 09/25/2024 11:46 AM CST Images from the original note were not included. [employer] is our life's work [facility] Hospitalist/Hospital Medicine Progress note LOS: LOS: 12 days Room/Bed: [facility]/ Patient name: Ventura Elmore Date of : 1975 HOSPITAL COURSE SUMMARY HPI: 49 y.o. female admitted 09/13/2024 with hypotension and tachycardia. Recently hospitalized at [place] between 08/22/2024 through 08/25/2024. Seen by her oncologist today and noted to be hypotensive in office and was transferred to hospital for evaluation. She is homeless, has been staying with a friend. 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 reports in prior documentation of poor historian. She was evaluated in ED and noted to be hypotensive after IVF bolus and initiated on levophed. She was transferred to the ICU under [facility] management. ICU Care Plan Summary on 09/15: This is a 49-year-old female with a past medical history of laryngeal squamous cell carcinoma, who is currently being managed for septic shock requiring pressors, also has a history of trach/PEG and carcinoma as above. Hemodynamics have improved. Was weaned off pressor support yesterday and remains off. Will restart CAPTAIN'S ASSISTANT medications as tolerated. Resume CAPTAIN'S ASSISTANT Risperdal. RSV positive, supportive care. Concern for septic shock on admission, no growth from culture data thus far. She does have poor dentition and this may have also been a possible source. De-escalate from broad-spectrum vancomycin/cefepime to short course of ceftriaxone. Reevaluate if necessary. Pneumonia was also considered as possible source, CT chest on admission mentioned possible scattered consolidations, hence speech therapy has been consulted to evaluate for possible silent aspiration. MBS pending for today. Renal function improving. Oncology following with ongoing workup. With clinical status now improved, I have contacted Dr. Jamil office (oral surgery) and relayed that the patient is now stable for surgical intervention. History of laryngeal cancer as above, homeless and unable to obtain care at this time. Case management consulted. May need placement. ICU timeline: 09/13: Admitted to ICU, on pressors 09/14: continued on pressors, broad spectrum antibiotics de-escalated. Oncology consulted. 09/15: Off of pressors. Oral surgery consulted for teeth extraction. Transfer out of ICU Hospitalist timeline: 09/16: Awaiting teeth extractions. BP stable. Completed antibiotic course. 09/17: Underwent teeth extraction surgery today under anesthesia. 09/18: Assumed care today. Patient doing well, s/p teeth extraction yesterday. On Airvo 50%. PendingPT/OT eval for placement 09/19: Patient doing well. PT recommending inpatient rehab. Oncology planning chemoradiation 1 week after dental extractions. Awaiting placement 09/20: Patient doing well. PT recommending inpatient rehab, however patient would want to prioritizechemoradiation for now and would rather go to SNF even if it means she does not get therapy. She isscheduled for follow-up with oncology on 09/26. 09/21-09/22: Patient doing well. Pending SNF placement for long-term care. 09/23: Patient noted to be bradycardic on several occasion, home Lopressor discontinued. Pending level 2 for SNF/LTC 09/24: Awaiting level 2 for SNF/LTC 09/25: Patient noted to be tachycardic 100-140s today a.m. EKG showing sinus tachycardia. CAPTAIN'S ASSISTANT metoprolol resumed Consultants During this admission: IP CONSULT TO IV TEAM IP CONSULT TO NUTRITION SERVICES IP CONSULT TO IV TEAM IP CONSULT TO IV TEAM IP CONSULT TO CASE MANAGEMENT SUBJECTIVE: Patient seen and examined at bedside, no new complaints OBJECTIVE: Temp (24hrs), Av.8 ??F (36.6 ??C), Min:97.1 ??F (36.2 ??C), Max:98.2 ??F (36.8 ??C) BP 130/81 (BP Location: Left arm, Patient Position (BP): Supine) Pulse (!) 101 Temp 97.1 ??F (36.2 ??C) (Temporal) Resp 16 Ht 5' 5 (1.651 m) Wt 80.8 kg (178 lb 2.1 oz) SpO2 99% BMI 29.64 kg/m?? Intake/Output Summary (Last 24 hours) at 09/25/2024 1146 Last data filed at 09/25/2024 1013 Gross per 24 hour Intake 1402 ml Output 1650 ml Net -248 ml Last documented weight: Weight: 80.8 kg (178 lb 2.1 oz) (09/25/24 7047) GENERAL: female laying on bed in no acute distress. E/N/M/T: Normal appearing pinna, no ear discharge noted. Nares normal in appearance. Tracheostomy in place. CARDIOVASCULAR: Normal rate, regular rhythm, S1 S2 heard. No peripheral edema noted. RESPIRATORY: on Trach collar at 45% FiO2. Clear to auscultation bilaterally except for patchy rales. GASTROINTESTINAL: Non-distended, soft, non-tender. Bowel sounds normoactive. GENITOURINARY: No suprapubic tenderness. INTEGUMENTARY: Warm, dry. No obvious rashes noted on exposed skin. NEUROLOGIC: Awake, alert and oriented. No new gross focal motor deficits noted. LABORATORY: Recent Labs 09/25/24 0231 WBC 6.5 HGB 12.1 HCT 38.5 PLT 228 Recent Labs 09/23/24 0553 09/25/24 0232 NA 139 135* K 4.5 4.3 CL 103 101 CO2 28 21* CA 9.6 9.3 BUN 27* 31* CREAT 1.24* 1.36* GLUCOSE 109* 97 No results for input(s): TOTALPROTEIN , ALBUMIN , BILITOTAL , ALKPHOS , AST , ALT in the last 72 hours. No results for input(s): INR , PT in the last 72 hours. Invalid input(s): PTT No results for input(s): BASETROP , 2HRTROP , DELTA , 6HRTROP in the last 72 hours. Inpatient Medications and relevant orders were reviewed. ASSESSMENT AND PLAN: Primary Discharge Diagnosis: Laryngeal squamous cell carcinoma ([facility]) Other Active medical issues also addressed during this admission: Active Hospital Problems Diagnosis Multifocal pneumonia Acute respiratory failure with hypoxia ([facility]) Pneumonia due to respiratory syncytial virus (RSV) Hx of laryngeal cancer Acute renal failure superimposed on chronic kidney disease Laryngeal squamous cell carcinoma ([facility]) Essential hypertension Bipolar disorder, unspecified ([facility]) CKD (chronic kidney disease) COPD (chronic obstructive pulmonary disease) ([facility]) Resolved Hospital Problems Diagnosis Date Resolved Hypovolemic shock ([facility]) 09/16/2024 Severe sepsis with septic shock ([facility]) 09/16/2024 PLAN: Septic shock on presentation Resolved RSV pneumonia Multifocal pneumonia Acute respiratory failure with hypoxia Completed antibiotic course Continue supportive care -Adequate pulmonary toilet with frequent tracheostomy suction -Continue humidified supplemental oxygen via trach collar, wean as tolerated Chronic dental infection S/p surgical extraction of remaining maxillary and mandibular teeth 09/17 -Pain medication as needed Laryngeal cancer status post tracheostomy Oncology following. Was pending tooth extraction prior to starting treatment. Patient had tooth extraction on 09/17 -Oncology planning on chemoradiation 1 week after dental extraction. She has a follow-up appointment with oncology on 09/26 CAD Dyslipidemia Continue aspirin, Plavix, statin CAPTAIN'S ASSISTANT Lopressor discontinued due to bradycardia Anxiety/Depression/Psychiatric disorder Continue Paxil, Risperdal As needed Atarax CKD 3a Avoid nephrotoxic medications Renally dose medications Avoid hypotension Sinus tachycardia Patient noted to be tachycardic with HR 100-140 EKG showing sinus tachycardia TSH WNL -CAPTAIN'S ASSISTANT Lopressor resumed -Monitor electrolytes, supplement as needed -Telemetry monitoring DVT prophylaxis: Heparin, SCDs Outpatient follow up: PCP, Oncology Anticipated Disposition: Location & time frame: SNF Criteria: Pending level II for SNF versus LTC Understanding of illness: Patient: good DIET DYSPHAGIA Level 6 Soft & Bite-Sized/Soft,; Level 0 Thin, Code status: Full Code Arlyn Kate MD 09/25/2024, 11:46 AM INE SIGN WRITER * Lise Nielsen LPN - 09/24/2024 8:45 PM CST Pt refuses SCDs at this time INE SIGN WRITER * Arlyn Kate MD - 09/24/2024 11:31 AM CST Images from the original note were not included. [employer] is our life's work [facility] Hospitalist/Hospital Medicine Progress note LOS: LOS: 11 days Room/Bed: [facility]/ Patient name: Ventura Elmore Date of : 1975 HOSPITAL COURSE SUMMARY HPI: 49 y.o. female admitted 09/13/2024 with hypotension and tachycardia. Recently hospitalized at [place] between 08/22/2024 through 08/25/2024. Seen by her oncologist today and noted to be hypotensive in office and was transferred to hospital for evaluation. She is homeless, has been staying with a friend. 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 reports in prior documentation of poor historian. She was evaluated in ED and noted to be hypotensive after IVF bolus and initiated on levophed. She was transferred to the ICU under [facility] management. ICU Care Plan Summary on 09/15: This is a 49-year-old female with a past medical history of laryngeal squamous cell carcinoma, who is currently being managed for septic shock requiring pressors, also has a history of trach/PEG and carcinoma as above. Hemodynamics have improved. Was weaned off pressor support yesterday and remains off. Will restart CAPTAIN'S ASSISTANT medications as tolerated. Resume CAPTAIN'S ASSISTANT Risperdal. RSV positive, supportive care. Concern for septic shock on admission, no growth from culture data thus far. She does have poor dentition and this may have also been a possible source. De-escalate from broad-spectrum vancomycin/cefepime to short course of ceftriaxone. Reevaluate if necessary. Pneumonia was also considered as possible source, CT chest on admission mentioned possible scattered consolidations, hence speech therapy has been consulted to evaluate for possible silent aspiration. MBS pending for today. Renal function improving. Oncology following with ongoing workup. With clinical status now improved, I have contacted Dr. Jamil office (oral surgery) and relayed that the patient is now stable for surgical intervention. History of laryngeal cancer as above, homeless and unable to obtain care at this time. Case management consulted. May need placement. ICU timeline: 09/13: Admitted to ICU, on pressors 09/14: continued on pressors, broad spectrum antibiotics de-escalated. Oncology consulted. 09/15: Off of pressors. Oral surgery consulted for teeth extraction. Transfer out of ICU Hospitalist timeline: 09/16: Awaiting teeth extractions. BP stable. Completed antibiotic course. 09/17: Underwent teeth extraction surgery today under anesthesia. 09/18: Assumed care today. Patient doing well, s/p teeth extraction yesterday. On Airvo 50%. PendingPT/OT eval for placement 09/19: Patient doing well. PT recommending inpatient rehab. Oncology planning chemoradiation 1 week after dental extractions. Awaiting placement 09/20: Patient doing well. PT recommending inpatient rehab, however patient would want to prioritizechemoradiation for now and would rather go to SNF even if it means she does not get therapy. She isscheduled for follow-up with oncology on 09/26. 09/21-09/22: Patient doing well. Pending SNF placement for long-term care. 2/1: Patient noted to be bradycardic on several occasion, home Lopressor discontinued. Pending level 2 for SNF/LTC 09/24: Awaiting level 2 for SNF/LTC Consultants During this admission: IP CONSULT TO IV TEAM IP CONSULT TO NUTRITION SERVICES IP CONSULT TO IV TEAM IP CONSULT TO IV TEAM IP CONSULT TO CASE MANAGEMENT SUBJECTIVE: Patient seen and examined at bedside, no new complaints OBJECTIVE: Temp (24hrs), Av.7 ??F (36.5 ??C), Min:97.2 ??F (36.2 ??C), Max:98.2 ??F (36.8 ??C) BP 110/53 (BP Location: Left arm, Patient Position (BP): Supine) Pulse (!) 55 Temp 97.2 ??F (36.2 ??C) (Axillary) Resp 16 Ht 5' 5 (1.651 m) Wt 81 kg (178 lb 9.2 oz) SpO2 92% BMI 29.72 kg/m?? Intake/Output Summary (Last 24 hours) at 09/24/2024 1131 Last data filed at 09/24/2024 0525 Gross per 24 hour Intake 830 ml Output 3000 ml Net -2170 ml Last documented weight: Weight: 81 kg (178 lb 9.2 oz) (09/24/24 0525) GENERAL: female laying on bed in no acute distress. E/N/M/T: Normal appearing pinna, no ear discharge noted. Nares normal in appearance. Tracheostomy in place. CARDIOVASCULAR: Normal rate, regular rhythm, S1 S2 heard. No peripheral edema noted. RESPIRATORY: on Trach collar at 45% FiO2. Clear to auscultation bilaterally except for patchy rales. GASTROINTESTINAL: Non-distended, soft, non-tender. Bowel sounds normoactive. GENITOURINARY: No suprapubic tenderness. INTEGUMENTARY: Warm, dry. No obvious rashes noted on exposed skin. NEUROLOGIC: Awake, alert and oriented. No new gross focal motor deficits noted. LABORATORY: No results for input(s): WBC , HGB , HCT , PLT in the last 72 hours. Recent Labs 09/22/24 0433 09/23/24 0553 NA 139 139 K 4.5 4.5 CL 102 103 CO2 29 28 CA 9.4 9.6 BUN 28* 27* CREAT 1.16* 1.24* GLUCOSE 102* 109* No results for input(s): TOTALPROTEIN , ALBUMIN , BILITOTAL , ALKPHOS , AST , ALT in the last 72 hours. No results for input(s): INR , PT in the last 72 hours. Invalid input(s): PTT No results for input(s): BASETROP , 2HRTROP , DELTA , 6HRTROP in the last 72 hours. Inpatient Medications and relevant orders were reviewed. ASSESSMENT AND PLAN: Primary Discharge Diagnosis: Laryngeal squamous cell carcinoma ([facility]) Other Active medical issues also addressed during this admission: Active Hospital Problems Diagnosis Multifocal pneumonia Acute respiratory failure with hypoxia ([facility]) Pneumonia due to respiratory syncytial virus (RSV) Hx of laryngeal cancer Acute renal failure superimposed on chronic kidney disease Laryngeal squamous cell carcinoma ([facility]) Essential hypertension Bipolar disorder, unspecified ([facility]) CKD (chronic kidney disease) COPD (chronic obstructive pulmonary disease) ([facility]) Resolved Hospital Problems Diagnosis Date Resolved Hypovolemic shock ([facility]) 09/16/2024 Severe sepsis with septic shock ([facility]) 09/16/2024 PLAN: Septic shock on presentation Resolved RSV pneumonia Multifocal pneumonia Acute respiratory failure with hypoxia Completed antibiotic course Continue supportive care -Adequate pulmonary toilet with frequent tracheostomy suction -Continue humidified supplemental oxygen via trach collar, wean as tolerated Chronic dental infection S/p surgical extraction of remaining maxillary and mandibular teeth 09/17 -Pain medication as needed Laryngeal cancer status post tracheostomy Oncology following. Was pending tooth extraction prior to starting treatment. Patient had tooth extraction on 09/17 -Oncology planning on chemoradiation 1 week after dental extraction. She has a follow-up appointment with oncology on 09/26 CAD Dyslipidemia Continue aspirin, Plavix, statin CAPTAIN'S ASSISTANT Lopressor discontinued due to bradycardia Anxiety/Depression/Psychiatric disorder Continue Paxil, Risperdal As needed Atarax CKD 3a Avoid nephrotoxic medications Renally dose medications Avoid hypotension Sinus bradycardia Occasional bradycardia in 40s to 50s EKG showing sinus bradycardia CAPTAIN'S ASSISTANT Lopressor discontinued -Monitor electrolytes, supplement as needed -Telemetry monitoring DVT prophylaxis: Heparin, SCDs Outpatient follow up: PCP, Oncology Anticipated Disposition: Location & time frame: SNF Criteria: Pending level II for SNF versus LTC Understanding of illness: Patient: good DIET DYSPHAGIA Level 4 Pureed,; Level 0 Thin, Code status: Full Code Arlyn Kate MD 09/24/2024, 11:31 AM INE SIGN WRITER * Arlyn Kate MD - 09/23/2024 11:29 AM CST Images from the original note were not included. [employer] is our life's work [facility] Hospitalist/Hospital Medicine Progress note LOS: LOS: 10 days Room/Bed: [facility]/ Patient name: Ventura Elmore Date of : 1975 HOSPITAL COURSE SUMMARY HPI: 49 y.o. female admitted 09/13/2024 with hypotension and tachycardia. Recently hospitalized at [place] between 08/22/2024 through 08/25/2024. Seen by her oncologist today and noted to be hypotensive in office and was transferred to hospital for evaluation. She is homeless, has been staying with a friend. 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 reports in prior documentation of poor historian. She was evaluated in ED and noted to be hypotensive after IVF bolus and initiated on levophed. She was transferred to the ICU under [facility] management. ICU Care Plan Summary on 09/15: This is a 49-year-old female with a past medical history of laryngeal squamous cell carcinoma, who is currently being managed for septic shock requiring pressors, also has a history of trach/PEG and carcinoma as above. Hemodynamics have improved. Was weaned off pressor support yesterday and remains off. Will restart CAPTAIN'S ASSISTANT medications as tolerated. Resume CAPTAIN'S ASSISTANT Risperdal. RSV positive, supportive care. Concern for septic shock on admission, no growth from culture data thus far. She does have poor dentition and this may have also been a possible source. De-escalate from broad-spectrum vancomycin/cefepime to short course of ceftriaxone. Reevaluate if necessary. Pneumonia was also considered as possible source, CT chest on admission mentioned possible scattered consolidations, hence speech therapy has been consulted to evaluate for possible silent aspiration. MBS pending for today. Renal function improving. Oncology following with ongoing workup. With clinical status now improved, I have contacted Dr. Jamil office (oral surgery) and relayed that the patient is now stable for surgical intervention. History of laryngeal cancer as above, homeless and unable to obtain care at this time. Case management consulted. May need placement. ICU timeline: 09/13: Admitted to ICU, on pressors 09/14: continued on pressors, broad spectrum antibiotics de-escalated. Oncology consulted. 09/15: Off of pressors. Oral surgery consulted for teeth extraction. Transfer out of ICU Hospitalist timeline: 09/16: Awaiting teeth extractions. BP stable. Completed antibiotic course. 09/17: Underwent teeth extraction surgery today under anesthesia. 09/18: Assumed care today. Patient doing well, s/p teeth extraction yesterday. On Airvo 50%. PendingPT/OT eval for placement 09/19: Patient doing well. PT recommending inpatient rehab. Oncology planning chemoradiation 1 week after dental extractions. Awaiting placement 09/20: Patient doing well. PT recommending inpatient rehab, however patient would want to prioritizechemoradiation for now and would rather go to SNF even if it means she does not get therapy. She isscheduled for follow-up with oncology on 09/26. 09/21-09/22: Patient doing well. Pending SNF placement for long-term care. 09/23: Patient noted to be bradycardic on several occasion, home Lopressor discontinued. Pending level 2 for SNF/LTC Consultants During this admission: IP CONSULT TO IV TEAM IP CONSULT TO NUTRITION SERVICES IP CONSULT TO IV TEAM IP CONSULT TO IV TEAM IP CONSULT TO CASE MANAGEMENT SUBJECTIVE: Patient seen and examined at bedside, no new complaints OBJECTIVE: Temp (24hrs), Av.9 ??F (36.6 ??C), Min:97.8 ??F (36.6 ??C), Max:98.2 ??F (36.8 ??C) BP 108/85 (BP Location: Left arm, Patient Position (BP): Supine) Pulse 61 Temp 98.2 ??F (36.8 ??C) (Oral) Resp 16 Ht 5' 5 (1.651 m) Wt 89.2 kg (196 lb 10.4 oz) SpO2 92% BMI 32.72 kg/m?? Intake/Output Summary (Last 24 hours) at 09/23/2024 1129 Last data filed at 09/23/2024 0800 Gross per 24 hour Intake 750 ml Output 4075 ml Net -3325 ml Last documented weight: Weight: 89.2 kg (196 lb 10.4 oz) (09/23/24 0415) GENERAL: female laying on bed in no acute distress. E/N/M/T: Normal appearing pinna, no ear discharge noted. Nares normal in appearance. Tracheostomy in place. CARDIOVASCULAR: Normal rate, regular rhythm, S1 S2 heard. No peripheral edema noted. RESPIRATORY: on Trach collar at 45% FiO2. Clear to auscultation bilaterally except for patchy rales. GASTROINTESTINAL: Non-distended, soft, non-tender. Bowel sounds normoactive. GENITOURINARY: No suprapubic tenderness. INTEGUMENTARY: Warm, dry. No obvious rashes noted on exposed skin. NEUROLOGIC: Awake, alert and oriented. No new gross focal motor deficits noted. LABORATORY: No results for input(s): WBC , HGB , HCT , PLT in the last 72 hours. Recent Labs 09/21/24 0459 09/22/24 0433 09/23/24 0553 NA 138 139 139 K 4.7 4.5 4.5 CL 102 102 103 CO2 29 29 28 CA 9.2 9.4 9.6 BUN 26* 28* 27* CREAT 1.16* 1.16* 1.24* GLUCOSE 99 102* 109* No results for input(s): TOTALPROTEIN , ALBUMIN , BILITOTAL , ALKPHOS , AST , ALT in the last 72 hours. No results for input(s): INR , PT in the last 72 hours. Invalid input(s): PTT No results for input(s): BASETROP , 2HRTROP , DELTA , 6HRTROP in the last 72 hours. Inpatient Medications and relevant orders were reviewed. ASSESSMENT AND PLAN: Primary Discharge Diagnosis: Laryngeal squamous cell carcinoma (CMS/HCC) Other Active medical issues also addressed during this admission: Active Hospital Problems Diagnosis Multifocal pneumonia Acute respiratory failure with hypoxia (CMS/HCC) Pneumonia due to respiratory syncytial virus (RSV) Hx of laryngeal cancer Acute renal failure superimposed on chronic kidney disease Laryngeal squamous cell carcinoma (CMS/HCC) Essential hypertension Bipolar disorder, unspecified (CMS/HCC) CKD (chronic kidney disease) COPD (chronic obstructive pulmonary disease) (CMS/HCC) Resolved Hospital Problems Diagnosis Date Resolved Hypovolemic shock ([facility]) 09/16/2024 Severe sepsis with septic shock ([facility]) 09/16/2024 PLAN: Septic shock on presentation Resolved RSV pneumonia Multifocal pneumonia Acute respiratory failure with hypoxia Completed antibiotic course Continue supportive care -Adequate pulmonary toilet with frequent tracheostomy suction -Continue humidified supplemental oxygen via trach collar, wean as tolerated Chronic dental infection S/p surgical extraction of remaining maxillary and mandibular teeth 09/17 -Pain medication as needed Laryngeal cancer status post tracheostomy Oncology following. Was pending tooth extraction prior to starting treatment. Patient had tooth extraction on 09/17 -Oncology planning on chemoradiation 1 week after dental extraction. She has a follow-up appointment with oncology on 09/26 CAD Dyslipidemia Continue aspirin, Plavix, statin [employer]S ASSISTANT Lopressor discontinued due to bradycardia Anxiety/Depression/Psychiatric disorder Continue Paxil, Risperdal As needed Atarax CKD ?3a Avoid nephrotoxic medications Renally dose medications Avoid hypotension DVT prophylaxis: Heparin, SCDs Outpatient follow up: PCP, Oncology Anticipated Disposition: Location & time frame: SNF Criteria: Pending level II for SNF versus LTC Understanding of illness: Patient: good DIET DYSPHAGIA Level 4 Pureed,; Level 0 Thin, Code status: Full Code Arlyn Kate MD 09/23/2024, 11:29 AM INE SIGN WRITER INE SIGN WRITER INE SIGN WRITER * Arlyn Kate MD - 09/22/2024 11:32 AM CST Images from the original note were not included. [employer] our life's work [facility] Hospitalist/Hospital Medicine Progress note LOS: LOS: 9 days Room/Bed: 3005/01 Patient name: Ventura Elmore Date of : 1975 HOSPITAL COURSE SUMMARY HPI: 49 y.o. female admitted 09/13/2024 with hypotension and tachycardia. Recently hospitalized at [place] between 08/22/2024 through 08/25/2024. Seen by her oncologist today and noted to be hypotensive in office and was transferred to hospital for evaluation. She is homeless, has been staying with a friend. 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 reports in prior documentation of poor historian. She was evaluated in ED and noted to be hypotensive after IVF bolus and initiated on levophed. She was transferred to the ICU under [facility] management. ICU Care Plan Summary on 09/15: This is a 49-year-old female with a past medical history of laryngeal squamous cell carcinoma, who is currently being managed for septic shock requiring pressors, also has a history of trach/PEG and carcinoma as above. Hemodynamics have improved. Was weaned off pressor support yesterday and remains off. Will restart [employer]S ASSISTANT medications as tolerated. Resume CAPTAIN'S ASSISTANT Risperdal. RSV positive, supportive care. Concern for septic shock on admission, no growth from culture data thus far. She does have poor dentition and this may have also been a possible source. De-escalate from broad-spectrum vancomycin/cefepime to short course of ceftriaxone. Reevaluate if necessary. Pneumonia was also considered as possible source, CT chest on admission mentioned possible scattered consolidations, hence speech therapy has been consulted to evaluate for possible silent aspiration. MBS pending for today. Renal function improving. Oncology following with ongoing workup. With clinical status now improved, I have contacted Dr. Jamil office (oral surgery) and relayed that the patient is now stable for surgical intervention. History of laryngeal cancer as above, homeless and unable to obtain care at this time. Case management consulted. May need placement. ICU timeline: 09/13: Admitted to ICU, on pressors 09/14: continued on pressors, broad spectrum antibiotics de-escalated. Oncology consulted. 09/15: Off of pressors. Oral surgery consulted for teeth extraction. Transfer out of ICU Hospitalist timeline: 09/16: Awaiting teeth extractions. BP stable. Completed antibiotic course. 09/17: Underwent teeth extraction surgery today under anesthesia. 09/18: Assumed care today. Patient doing well, s/p teeth extraction yesterday. On Airvo 50%. PendingPT/OT eval for placement 09/19: Patient doing well. PT recommending inpatient rehab. Oncology planning chemoradiation 1 week after dental extractions. Awaiting placement 09/20: Patient doing well. PT recommending inpatient rehab, however patient would want to prioritizechemoradiation for now and would rather go to SNF even if it means she does not get therapy. She isscheduled for follow-up with oncology on 09/26. 09/21-09/22: Patient doing well. Pending SNF placement for long-term care. Consultants During this admission: IP CONSULT TO IV TEAM IP CONSULT TO NUTRITION SERVICES IP CONSULT TO IV TEAM IP CONSULT TO IV TEAM IP CONSULT TO CASE MANAGEMENT SUBJECTIVE: Patient seen and examined at bedside, no new complaints OBJECTIVE: Temp (24hrs), Av.7 ??F (36.5 ??C), Min:97.3 ??F (36.3 ??C), Max:98.4 ??F (36.9 ??C) BP 131/84 (BP Location: Left arm, Patient Position (BP): Supine) Pulse 63 Temp 98.4 ??F (36.9 ??C) (Temporal) Resp 20 Ht 5' 5 (1.651 m) Wt 85.3 kg (188 lb 0.8 oz) SpO2 91% BMI 31.29 kg/m?? Intake/Output Summary (Last 24 hours) at 09/22/2024 1132 Last data filed at 09/22/2024 1047 Gross per 24 hour Intake 835 ml Output 3575 ml Net -2740 ml Last documented weight: Weight: 85.3 kg (188 lb 0.8 oz) (09/22/24 8065) GENERAL: female laying on bed in no acute distress. E/N/M/T: Normal appearing pinna, no ear discharge noted. Nares normal in appearance. Tracheostomy in place. CARDIOVASCULAR: Normal rate, regular rhythm, S1 S2 heard. No peripheral edema noted. RESPIRATORY: on Trach collar at 45% FiO2. Clear to auscultation bilaterally except for patchy rales. GASTROINTESTINAL: Non-distended, soft, non-tender. Bowel sounds normoactive. GENITOURINARY: No suprapubic tenderness. INTEGUMENTARY: Warm, dry. No obvious rashes noted on exposed skin. NEUROLOGIC: Awake, alert and oriented. No new gross focal motor deficits noted. LABORATORY: Recent Labs 09/20/24 0054 WBC 6.0 HGB 10.4* HCT 32.9* PLT 206 Recent Labs 09/20/2453 09/21/24 0459 09/22/24 0433 NA 137 138 139 K 4.6 4.7 4.5 CL 103 102 102 CO2 28 29 29 CA 8.8 9.2 9.4 BUN 28* 26* 28* CREAT 1.20* 1.16* 1.16* GLUCOSE 84 99 102* No results for input(s): TOTALPROTEIN , ALBUMIN , BILITOTAL , ALKPHOS , AST , ALT in the last 72 hours. No results for input(s): INR , PT in the last 72 hours. Invalid input(s): PTT No results for input(s): BASETROP , 2HRTROP , DELTA , 6HRTROP in the last 72 hours. Inpatient Medications and relevant orders were reviewed. ASSESSMENT AND PLAN: Primary Discharge Diagnosis: Laryngeal squamous cell carcinoma ([facility]) Other Active medical issues also addressed during this admission: Active Hospital Problems Diagnosis Multifocal pneumonia Acute respiratory failure with hypoxia ([facility]) Pneumonia due to respiratory syncytial virus (RSV) Hx of laryngeal cancer Acute renal failure superimposed on chronic kidney disease Laryngeal squamous cell carcinoma ([facility]) Essential hypertension Bipolar disorder, unspecified ([facility]) CKD (chronic kidney disease) COPD (chronic obstructive pulmonary disease) ([facility]) Resolved Hospital Problems Diagnosis Date Resolved Hypovolemic shock ([facility]) 09/16/2024 Severe sepsis with septic shock ([facility]) 09/16/2024 PLAN: Septic shock on presentation Resolved RSV pneumonia Multifocal pneumonia Acute respiratory failure with hypoxia Completed antibiotic course Continue supportive care -Adequate pulmonary toilet with frequent tracheostomy suction -Continue humidified supplemental oxygen via trach collar, wean as tolerated Chronic dental infection S/p surgical extraction of remaining maxillary and mandibular teeth 09/17 -Pain medication as needed Laryngeal cancer status post tracheostomy Oncology following. Was pending tooth extraction prior to starting treatment. Patient had tooth extraction on 09/17 -Oncology planning on chemoradiation 1 week after dental extraction. She has a follow-up appointment with oncology on 09/26 CAD Dyslipidemia Continue aspirin, Plavix, statin, low-dose beta-yi Anxiety/Depression/Psychiatric disorder Continue Paxil, Risperdal As needed Atarax CKD ?3a Avoid nephrotoxic medications Renally dose medications Avoid hypotension DVT prophylaxis: Heparin, SCDs Outpatient follow up: PCP, Oncology Anticipated Disposition: Location & time frame: SNF Criteria: Awaiting placement Understanding of illness: Patient: good DIET DYSPHAGIA Level 4 Pureed,; Level 0 Thin, Code status: Full Code Arlyn Kate MD 09/22/2024, 11:32 AM INE SIGN WRITER * Arlyn Kate MD - 09/21/2024 12:28 PM CST Images from the original note were not included. [employer] is our life's work [facility] Hospitalist/[facility] Medicine Progress note LOS: LOS: 8 days Room/Bed: 8976/01 Patient name: Ventura Elmore Date of : 1975 HOSPITAL COURSE SUMMARY HPI: 49 y.o. female admitted 09/13/2024 with hypotension and tachycardia. Recently hospitalized at [place] between 08/22/2024 through 08/25/2024. Seen by her oncologist today and noted to be hypotensive in office and was transferred to hospital for evaluation. She is homeless, has been staying with a friend. 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 reports in prior documentation of poor historian. She was evaluated in ED and noted to be hypotensive after IVF bolus and initiated on levophed. She was transferred to the ICU under [facility] management. ICU Care Plan Summary on 09/15: This is a 49-year-old female with a past medical history of laryngeal squamous cell carcinoma, who is currently being managed for septic shock requiring pressors, also has a history of trach/PEG and carcinoma as above. Hemodynamics have improved. Was weaned off pressor support yesterday and remains off. Will restart CAPTAIN'S ASSISTANT medications as tolerated. Resume CAPTAIN'S ASSISTANT Risperdal. RSV positive, supportive care. Concern for septic shock on admission, no growth from culture data thus far. She does have poor dentition and this may have also been a possible source. De-escalate from broad-spectrum vancomycin/cefepime to short course of ceftriaxone. Reevaluate if necessary. Pneumonia was also considered as possible source, CT chest on admission mentioned possible scattered consolidations, hence speech therapy has been consulted to evaluate for possible silent aspiration. MBS pending for today. Renal function improving. Oncology following with ongoing workup. With clinical status now improved, I have contacted Dr. Jamil office (oral surgery) and relayed that the patient is now stable for surgical intervention. History of laryngeal cancer as above, homeless and unable to obtain care at this time. Case management consulted. May need placement. ICU timeline: 09/13: Admitted to ICU, on pressors 09/14: continued on pressors, broad spectrum antibiotics de-escalated. Oncology consulted. 09/15: Off of pressors. Oral surgery consulted for teeth extraction. Transfer out of ICU Hospitalist timeline: 09/16: Awaiting teeth extractions. BP stable. Completed antibiotic course. 09/17: Underwent teeth extraction surgery today under anesthesia. 09/18: Assumed care today. Patient doing well, s/p teeth extraction yesterday. On Airvo 50%. PendingPT/OT eval for placement 09/19: Patient doing well. PT recommending inpatient rehab. Oncology planning chemoradiation 1 week after dental extractions. Awaiting placement 09/20: Patient doing well. PT recommending inpatient rehab, however patient would want to prioritizechemoradiation for now and would rather go to SNF even if it means she does not get therapy. She isscheduled for follow-up with oncology on 09/26. 09/21: Patient doing well. Pending SNF placement for long-term care. Consultants During this admission: IP CONSULT TO IV TEAM IP CONSULT TO NUTRITION SERVICES IP CONSULT TO IV TEAM IP CONSULT TO IV TEAM IP CONSULT TO CASE MANAGEMENT SUBJECTIVE: Patient seen and examined at bedside, no new complaints OBJECTIVE: Temp (24hrs), Av ??F (36.7 ??C), Min:97.7 ??F (36.5 ??C), Max:98.6 ??F (37 ??C) BP 130/68 (BP Location: Left arm, Patient Position (BP): Supine) Pulse (!) 59 Temp 97.8 ??F (36.6 ??C) (Temporal) Resp 18 Ht 5' 5 (1.651 m) Wt 88.5 kg (195 lb 1.7 oz) SpO2 93% BMI 32.47 kg/m?? Intake/Output Summary (Last 24 hours) at 09/21/2024 1229 Last data filed at 09/21/2024 1134 Gross per 24 hour Intake 235 ml Output 2500 ml Net -2265 ml Last documented weight: Weight: 88.5 kg (195 lb 1.7 oz) (09/21/245) GENERAL: female laying on bed in no acute distress. E/N/M/T: Normal appearing pinna, no ear discharge noted. Nares normal in appearance. Tracheostomy in place. CARDIOVASCULAR: Normal rate, regular rhythm, S1 S2 heard. No peripheral edema noted. RESPIRATORY: on Trach collar at 45% FiO2. Clear to auscultation bilaterally except for patchy rales. GASTROINTESTINAL: Non-distended, soft, non-tender. Bowel sounds normoactive. GENITOURINARY: No suprapubic tenderness. INTEGUMENTARY: Warm, dry. No obvious rashes noted on exposed skin. NEUROLOGIC: Awake, alert and oriented. No new gross focal motor deficits noted. LABORATORY: Recent Labs 09/19/2435409/20/2453 WBC 5.7 6.0 HGB 10.3* 10.4* HCT 33.7* 32.9* PLT 184 206 Recent Labs 09/19/2435409/20/245309/21/249 NA 139 137 138 K 4.7 4.6 4.7 CL 104 103 102 CO2 27 28 29 CA 8.5* 8.8 9.2 BUN 28* 28* 26* CREAT 1.29* 1.20* 1.16* GLUCOSE 95 84 99 No results for input(s): TOTALPROTEIN , ALBUMIN , BILITOTAL , ALKPHOS , AST , ALT in the last 72 hours. No results for input(s): INR , PT in the last 72 hours. Invalid input(s): PTT No results for input(s): BASETROP , 2HRTROP , DELTA , 6HRTROP in the last 72 hours. Inpatient Medications and relevant orders were reviewed. ASSESSMENT AND PLAN: Primary Discharge Diagnosis: Laryngeal squamous cell carcinoma (CMS/HCC) Other Active medical issues also addressed during this admission: Active Hospital Problems Diagnosis Multifocal pneumonia Acute respiratory failure with hypoxia (CMS/HCC) Pneumonia due to respiratory syncytial virus (RSV) Hx of laryngeal cancer Acute renal failure superimposed on chronic kidney disease Laryngeal squamous cell carcinoma (CMS/HCC) Essential hypertension Bipolar disorder, unspecified (CMS/HCC) CKD (chronic kidney disease) COPD (chronic obstructive pulmonary disease) (CMS/HCC) Resolved Hospital Problems Diagnosis Date Resolved Hypovolemic shock ([facility]) 09/16/2024 Severe sepsis with septic shock ([facility]) 09/16/2024 PLAN: Septic shock on presentation Resolved RSV pneumonia Multifocal pneumonia Acute respiratory failure with hypoxia Completed antibiotic course Continue supportive care -Adequate pulmonary toilet with frequent tracheostomy suction -Continue humidified supplemental oxygen via trach collar, wean as tolerated Chronic dental infection S/p surgical extraction of remaining maxillary and mandibular teeth 09/17 -Pain medication as needed Laryngeal cancer status post tracheostomy Oncology following. Was pending tooth extraction prior to starting treatment. Patient had tooth extraction on 09/17 -Oncology planning on chemoradiation 1 week after dental extraction. She has a follow-up appointment with oncology on 09/26 CAD Dyslipidemia Continue aspirin, Plavix, statin, low-dose beta-yi Anxiety/Depression/Psychiatric disorder Continue Paxil, Risperdal CKD ?3a Avoid nephrotoxic medications Renally dose medications Avoid hypotension DVT prophylaxis: Heparin, SCDs Outpatient follow up: PCP, Oncology Anticipated Disposition: Location & time frame: SNF Criteria: Awaiting placement Understanding of illness: Patient: good DIET DYSPHAGIA Level 4 Pureed,; Level 0 Thin, Code status: Full Code Arlyn Kate MD 09/21/2024, 12:29 PM INE SIGN WRITER INE SIGN WRITER * Arlyn Kate MD - 09/20/2024 11:58 AM CST Images from the original note were not included. [employer] is our life's work [facility] Hospitalist/Hospital Medicine Progress note LOS: LOS: 7 days Room/Bed: 4448/01 Patient name: Ventura Elmore Date of : 1975 HOSPITAL COURSE SUMMARY HPI: 49 y.o. female admitted 09/13/2024 with hypotension and tachycardia. Recently hospitalized at [place] between 08/22/2024 through 08/25/2024. Seen by her oncologist today and noted to be hypotensive in office and was transferred to hospital for evaluation. She is homeless, has been staying with a friend. 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 reports in prior documentation of poor historian. She was evaluated in ED and noted to be hypotensive after IVF bolus and initiated on levophed. She was transferred to the ICU under [facility] management. ICU Care Plan Summary on 09/15: This is a 49-year-old female with a past medical history of laryngeal squamous cell carcinoma, who is currently being managed for septic shock requiring pressors, also has a history of trach/PEG and carcinoma as above. Hemodynamics have improved. Was weaned off pressor support yesterday and remains off. Will restart CAPTAIN'S ASSISTANT medications as tolerated. Resume CAPTAIN'S ASSISTANT Risperdal. RSV positive, supportive care. Concern for septic shock on admission, no growth from culture data thus far. She does have poor dentition and this may have also been a possible source. De-escalate from broad-spectrum vancomycin/cefepime to short course of ceftriaxone. Reevaluate if necessary. Pneumonia was also considered as possible source, CT chest on admission mentioned possible scattered consolidations, hence speech therapy has been consulted to evaluate for possible silent aspiration. MBS pending for today. Renal function improving. Oncology following with ongoing workup. With clinical status now improved, I have contacted Dr. Jamil office (oral surgery) and relayed that the patient is now stable for surgical intervention. History of laryngeal cancer as above, homeless and unable to obtain care at this time. Case management consulted. May need placement. ICU timeline: 09/13: Admitted to ICU, on pressors 09/14: continued on pressors, broad spectrum antibiotics de-escalated. Oncology consulted. 09/15: Off of pressors. Oral surgery consulted for teeth extraction. Transfer out of ICU Hospitalist timeline: 09/16: Awaiting teeth extractions. BP stable. Completed antibiotic course. 09/17: Underwent teeth extraction surgery today under anesthesia. 09/18: Assumed care today. Patient doing well, s/p teeth extraction yesterday. On Airvo 50%. PendingPT/OT eval for placement 09/19: Patient doing well. PT recommending inpatient rehab. Oncology planning chemoradiation 1 week after dental extractions. Awaiting placement 09/20: Patient doing well. PT recommending inpatient rehab, however patient would want to prioritizechemoradiation for now and would rather go to SNF even if it means she does not get therapy. She isscheduled for follow-up with oncology on 09/26. Consultants During this admission: IP CONSULT TO IV TEAM IP CONSULT TO NUTRITION SERVICES IP CONSULT TO IV TEAM IP CONSULT TO IV TEAM IP CONSULT TO CASE MANAGEMENT SUBJECTIVE: Patient seen and examined at bedside, no new complaints OBJECTIVE: Temp (24hrs), Av ??F (36.7 ??C), Min:97.9 ??F (36.6 ??C), Max:98.3 ??F (36.8 ??C) BP 115/70 (BP Location: Left arm, Patient Position (BP): Supine) Pulse 60 Temp 97.9 ??F (36.6 ??C) (Temporal) Resp 16 Ht 5' 5 (1.651 m) Wt 88.2 kg (194 lb 7.1 oz) SpO2 92% BMI 32.36 kg/m?? Intake/Output Summary (Last 24 hours) at 09/20/2024 1159 Last data filed at 09/20/2024 0830 Gross per 24 hour Intake 800 ml Output 1800 ml Net -1000 ml Last documented weight: Weight: 88.2 kg (194 lb 7.1 oz) (09/20/24 0422) GENERAL: female laying on bed in no acute distress. E/N/M/T: Normal appearing pinna, no ear discharge noted. Nares normal in appearance. Tracheostomy in place. CARDIOVASCULAR: Normal rate, regular rhythm, S1 S2 heard. No peripheral edema noted. RESPIRATORY: on Trach collar at 45% FiO2. Clear to auscultation bilaterally except for patchy rales. GASTROINTESTINAL: Non-distended, soft, non-tender. Bowel sounds normoactive. GENITOURINARY: No suprapubic tenderness. INTEGUMENTARY: Warm, dry. No obvious rashes noted on exposed skin. NEUROLOGIC: Awake, alert and oriented. No new gross focal motor deficits noted. LABORATORY: Recent Labs 09/18/24 0322 09/19/24 0355 09/20/24 0054 WBC 5.9 5.7 6.0 HGB 10.7* 10.3* 10.4* HCT 34.5* 33.7* 32.9* PLT 231 184 206 Recent Labs 09/19/24 0355 09/20/24 0054 NA 139 137 K 4.7 4.6 CL 104 103 CO2 27 28 CA 8.5* 8.8 BUN 28* 28* CREAT 1.29* 1.20* GLUCOSE 95 84 No results for input(s): TOTALPROTEIN , ALBUMIN , BILITOTAL , ALKPHOS , AST , ALT in the last 72 hours. No results for input(s): INR , PT in the last 72 hours. Invalid input(s): PTT No results for input(s): BASETROP , 2HRTROP , DELTA , 6HRTROP in the last 72 hours. Inpatient Medications and relevant orders were reviewed. ASSESSMENT AND PLAN: Primary Discharge Diagnosis: Laryngeal squamous cell carcinoma ([facility]) Other Active medical issues also addressed during this admission: Active Hospital Problems Diagnosis Multifocal pneumonia Acute respiratory failure with hypoxia ([facility]) Pneumonia due to respiratory syncytial virus (RSV) Hx of laryngeal cancer Acute renal failure superimposed on chronic kidney disease Laryngeal squamous cell carcinoma ([facility]) Essential hypertension Bipolar disorder, unspecified ([facility]) CKD (chronic kidney disease) COPD (chronic obstructive pulmonary disease) ([facility]) Resolved Hospital Problems Diagnosis Date Resolved Hypovolemic shock ([facility]) 09/16/2024 Severe sepsis with septic shock ([facility]) 09/16/2024 PLAN: Septic shock on presentation Resolved RSV pneumonia Multifocal pneumonia Acute respiratory failure with hypoxia Completed antibiotic course Continue supportive care -Adequate pulmonary toilet with frequent tracheostomy suction -Continue humidified supplemental oxygen via trach collar, wean as tolerated Chronic dental infection S/p surgical extraction of remaining maxillary and mandibular teeth 09/17 -Pain medication as needed Laryngeal cancer status post tracheostomy Oncology following. Was pending tooth extraction prior to starting treatment. Patient had tooth extraction on 09/17 -Oncology planning on chemoradiation 1 week after dental extraction. She has a follow-up appointment with oncology on 09/26 CAD Dyslipidemia Continue aspirin, Plavix, statin, low-dose beta-yi Anxiety/Depression/Psychiatric disorder Continue Paxil, Risperdal CKD ?3a Avoid nephrotoxic medications Renally dose medications Avoid hypotension DVT prophylaxis: Heparin, SCDs Outpatient follow up: PCP, Oncology Anticipated Disposition: Location & time frame: SNF versus inpatient rehab Criteria: Awaiting placement Understanding of illness: Patient: good DIET DYSPHAGIA Level 4 Pureed,; Level 0 Thin, Code status: Full Code Arlyn Kate MD 09/20/2024, 11:59 AM INE SIGN WRITER * Devin Ramos, Occupational Therapist - 09/20/2024 10:14 AM CST [facility] - Therapy [facility]. Acute Occupational Therapy Evaluation 09/20/2024 Room: [address] [place] [address] Name: Ventura Elmore Age: 49 y.o. Patient Class: Inpatient Date of : 1975 Insurance: Payor: MEDICAID / Plan: MEDICAID [place] / Product Type: Medicaid / Prior to OT session thorough chart review completed, including prior OT notes as applicable. Consent to evaluate provided by patient and nurse Date of admission: 09/13/2024 SUBJECTIVE Occupational Profile Information provided by: patient Prior Level of Function ADLs: independent IADLs: independent Functional mobility: modified independent pt uses walker for functional mobilty Falls: None Home Information Employment/daily routine: pt enjoys reading and doing cross word puzzles Self-care assist available at home: pt lives with her who can assist PRN Home environment: Mobile home Ramp to enter Tub/shower Durable medical equipment already in home: Walkers: 2WW Canes: single point cane Home O2; yes Shower chair Additional Information Patient/family statement/goal(s): to go home and recover Comments: pt agreeable to work with therapy Pain: Refer to flowsheet for documentation of pain and interventions. OBJECTIVE Cognition Level of alertness: alert Orientation: x4 WNL Command following: good Safety awareness: good Memory: WFL conversationally Vision: denies acute changes UE Function UE Assessment Right Left ROM Active: WFL Active: WFL Strength WFL; WFL; Occupational Performance Activities of Daily Living Feeding: supervision for setup Grooming: supervision seated EOB to wash face and hands with wash cloth. Pt unable to advance to sink due to limited O2 line on Airvo. Upper extremity dressing: supervision to doff/don gown while sitting EOB Lower extremity dressing: independent to don socks while sitting EOB Toileting: independent on BSC Toilet transfer: independent sit < > stand from BSC All tasks not tested with anticipated assist levels are based on observed tasks and movement patterns. Functional Mobility All mobility completed with gait belt and non-skid socks Bed mobility: modified independent supine < > sit EOB with HOB elevated Sit to stand: independent from EOB Functional ambulation: supervision x 8+8 feet with assist for line management. Did not advance further due to limited O2 line on airvo. Sitting balance: independent for static tasks and dynamic tasks Standing balance: supervision for static tasks and dynamic tasks Patient required verbal cues for safety. [facility] Daily Activity How much help from another person does the patient currently need? Score 1. Putting on and taking off regular lower body clothing? 4 - None (independent) 2. Bathing (including washing, rinsing, drying)? 3 - A little (supervision to min assist) 3. Toileting, which includes using toilet, bedpan or urinal? 4 - None (independent) 4. Putting on and taking off regular upper body clothing? 3 - A little (supervision to min assist) 5. Taking care of personal grooming such as brushing teeth? 3 - A little (supervision to min assist) 6. Eating meals? 3 - A little (supervision to min assist) Total score 20/24 0-19 indicates likely facility discharge 19-24 indicates likely community discharge *Scores determined based on patient report, observation or professional expertise* Vitals Current O2 requirement: 40 L/min at 40%FiO2 Vital signs stable throughout. On continuous monitoring throughout session. Precautions Patient precautions: fall, aspiration, isolation, oxygen, and trach Patient bracing: none Weight bearing: no restrictions ASSESSMENT & PLAN Evaluation Details Ventura Elmore is a 49 y.o. female referred for OT following admission for laryngeal squamous carcinoma. Additional pertinent diagnoses and past medical history related to this hospital stay are present in physician H&P and physician daily notes. OT evaluation: Low complexity Assessment Patient is currently functioning near her prior level of function. Patient presents with acute functional deficits including: Decreased endurance Patient does not require acute OT to address these deficits as these deficits are present at baseline with adequate support/resources currently in place and patient verbalizes adequate support/resources upon discharge for acute functional deficits. Patient/family deny additional questions regardingADLs and home safety. See discharge recommendations below Plan Evaluation only with no further acute OT services indicated (order completed) Recommendations Based on OT assessment of patient's ability to complete self care tasks, [facility] Daily Activity Score, functional cognition and safety awareness, potential for improvement, available home support, participation in therapeutic intervention, and tolerance for activity, anticipated discharge disposition, once medically ready: Home with assistance (09/20/24 1014) Rationale: Assistance recommended for IADLs. Safety concerns present. Plan of care and discharge recommendations shared with patient, care transition coordinator, and PT OT recommended DME and AE upon discharge: No new DME recommended (09/20/24 1014) No new additional adaptive equipment necessary (09/20/24 101) Education provided to patient regarding OT recommendations and plan of care, safety, activity tolerance, goals for therapy. Education response: verbalized understanding Nursing Staff Mobility Recommendations Recommended daily activity during admission: toileting on BSC and up ad desiree Disposition At start of session, patient found lying in bed At end of session, patient left in bed, call light in reach, phone in reach, patient instructed notto get up without staff assistance, and staff notified of patient location/events of session Further treatment notes and therapeutic goals can be found in Care Plan Notes. If the patient discharges from facility before another therapy visit, this shall serve as therapy discharge summary. Thank you for this referral, Devin Ramos, Occupational Therapist INE SIGN WRITER INE SIGN WRITER * Steven Rizvi, PAYTON - 09/19/2024 12:57 PM CST Patient seen/chart reviewed during routine patient care/meal rounds. Nutritional status/assessment: PO intake appears adequate for nutritional needs. No additional acute care nutritional risk factorsidentified. Malnutrition Nutrition Diagnosis: (no findings) (09/14/24918) Recommendation/Plan for follow up: Will continue to follow during weekly patient care/meal rounds, assisting with intake needs as appropriate. Current diet/nutrition support: DIET DYSPHAGIA Level 4 Pureed,; Level 0 Thin, Food/Meal: Dinner (09/18/242153),Intake (%): 100% (09/18/242153) Oral Supplement Type: Complete oral supplement-adult (09/14/24 1300) Weight status/changes: Weight: 88.5 kg (195 lb 1.7 oz) (09/19/24427) Admission :Weight: 85 kg (187 lb 6.3 oz) (09/13/24 2030) Height: 5' 5 (165.1 cm) (09/15/24 2100) Body mass index is 32.47 kg/m??. Wt Readings from Last 8 Encounters: 09/19/24 88.5 kg (195 lb 1.7 oz) 09/13/24 80.1 kg (176 lb 9.6 oz) 07/13/24 83.3 kg (183 lb 9.6 oz) 07/13/24 82.1 kg (181 lb) 06/22/24 88.5 kg (195 lb) 04/22/24 88.8 kg (195 lb 11.2 oz) 01/09/24 88 kg (194 lb) 07/21/23 90.4 kg (199 lb 6.4 oz) Additional assessment indices: Juan Jose Score: 20 (09/19/24 0808) Last Bowel Movement (mm/dd/yyyy): 09/17/24 (09/17/24 0700) Allergies Allergies Allergen Reactions Hydromorphone Dizziness and Headache Labs: Lab Results Component Value Date GLUCOSE 95 09/19/2024 INE SIGN WRITER * Arlyn Kate MD - 09/19/2024 10:16 AM CST Images from the original note were not included. Your [employer] is our life's work [facility] Hospitalist/Hospital Medicine Progress note LOS: LOS: 6 days Room/Bed: [facility]/ Patient name: Ventura Elmore Date of : 1975 HOSPITAL COURSE SUMMARY HPI: 49 y.o. female admitted 09/13/2024 with hypotension and tachycardia. Recently hospitalized at [place] between 08/22/2024 through 08/25/2024. Seen by her oncologist today and noted to be hypotensive in office and was transferred to hospital for evaluation. She is homeless, has been staying with a friend. 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 reports in prior documentation of poor historian. She was evaluated in ED and noted to be hypotensive after IVF bolus and initiated on levophed. She was transferred to the ICU under [facility] management. ICU Care Plan Summary on 09/15: This is a 49-year-old female with a past medical history of laryngeal squamous cell carcinoma, who is currently being managed for septic shock requiring pressors, also has a history of trach/PEG and carcinoma as above. Hemodynamics have improved. Was weaned off pressor support yesterday and remains off. Will restart CAPTAIN'S ASSISTANT medications as tolerated. Resume CAPTAIN'S ASSISTANT Risperdal. RSV positive, supportive care. Concern for septic shock on admission, no growth from culture data thus far. She does have poor dentition and this may have also been a possible source. De-escalate from broad-spectrum vancomycin/cefepime to short course of ceftriaxone. Reevaluate if necessary. Pneumonia was also considered as possible source, CT chest on admission mentioned possible scattered consolidations, hence speech therapy has been consulted to evaluate for possible silent aspiration. MBS pending for today. Renal function improving. Oncology following with ongoing workup. With clinical status now improved, I have contacted Dr. Jamil office (oral surgery) and relayed that the patient is now stable for surgical intervention. History of laryngeal cancer as above, homeless and unable to obtain care at this time. Case management consulted. May need placement. ICU timeline: 09/13: Admitted to ICU, on pressors 09/14: continued on pressors, broad spectrum antibiotics de-escalated. Oncology consulted. 09/15: Off of pressors. Oral surgery consulted for teeth extraction. Transfer out of ICU Hospitalist timeline: 09/16: Awaiting teeth extractions. BP stable. Completed antibiotic course. 09/17: Underwent teeth extraction surgery today under anesthesia. 09/08: Assumed care today. Patient doing well, s/p teeth extraction yesterday. On Airvo 50%. PendingPT/OT eval for placement 09/09: Patient doing well. PT recommending inpatient rehab. Oncology planning chemoradiation 1 week after dental extractions. Awaiting placement Consultants During this admission: IP CONSULT TO IV TEAM IP CONSULT TO NUTRITION SERVICES IP CONSULT TO IV TEAM IP CONSULT TO IV TEAM IP CONSULT TO CASE MANAGEMENT SUBJECTIVE: Patient seen and examined at bedside, no new complaints OBJECTIVE: Temp (24hrs), Av.1 ??F (36.7 ??C), Min:97.8 ??F (36.6 ??C), Max:98.6 ??F (37 ??C) BP 108/64 (BP Location: Left arm, Patient Position (BP): Supine) Pulse 64 Temp 98.6 ??F (37 ??C) (Temporal) Resp 18 Ht 5' 5 (1.651 m) Wt 88.5 kg (195 lb 1.7 oz) SpO2 94% BMI 32.47 kg/m?? Intake/Output Summary (Last 24 hours) at 09/19/2024 1016 Last data filed at 09/19/2024 0428 Gross per 24 hour Intake 500 ml Output 500 ml Net 0 ml Last documented weight: Weight: 88.5 kg (195 lb 1.7 oz) (09/19/24427) GENERAL: female laying on bed in no acute distress. E/N/M/T: Normal appearing pinna, no ear discharge noted. Nares normal in appearance. Tracheostomy in place. CARDIOVASCULAR: Normal rate, regular rhythm, S1 S2 heard. No peripheral edema noted. RESPIRATORY: on Trach collar at 45% FiO2. Clear to auscultation bilaterally except for patchy rales. GASTROINTESTINAL: Non-distended, soft, non-tender. Bowel sounds normoactive. GENITOURINARY: No suprapubic tenderness. INTEGUMENTARY: Warm, dry. No obvious rashes noted on exposed skin. NEUROLOGIC: Awake, alert and oriented. No new gross focal motor deficits noted. LABORATORY: Recent Labs 09/17/24 0400 09/18/24 0322 09/19/24 0355 WBC 4.1* 5.9 5.7 HGB 11.8* 10.7* 10.3* HCT 36.1 34.5* 33.7* PLT 155 231 184 Recent Labs 09/17/24 0400 09/19/24 0355 NA 138 139 K 4.9 4.7 CL 106 104 CO2 25 27 CA 9.2 8.5* BUN 22* 28* CREAT 1.14* 1.29* GLUCOSE 83 95 Recent Labs 09/17/24 0400 ALBUMIN 3.0* No results for input(s): INR , PT in the last 72 hours. Invalid input(s): PTT No results for input(s): BASETROP , 2HRTROP , DELTA , 6HRTROP in the last 72 hours. Inpatient Medications and relevant orders were reviewed. ASSESSMENT AND PLAN: Primary Discharge Diagnosis: Laryngeal squamous cell carcinoma ([facility]) Other Active medical issues also addressed during this admission: Active Hospital Problems Diagnosis Multifocal pneumonia Acute respiratory failure with hypoxia ([facility]) Pneumonia due to respiratory syncytial virus (RSV) Hx of laryngeal cancer Acute renal failure superimposed on chronic kidney disease Laryngeal squamous cell carcinoma [facility] [facility] Essential hypertension Bipolar disorder, unspecified ([facility]) CKD (chronic kidney disease) COPD (chronic obstructive pulmonary disease) ([facility]) Resolved Hospital Problems Diagnosis Date Resolved Hypovolemic shock ([facility]) 09/16/2024 Severe sepsis with septic shock ([facility]) 09/16/2024 PLAN: Septic shock on presentation Resolved RSV pneumonia Multifocal pneumonia Acute respiratory failure with hypoxia Completed antibiotic course Continue supportive care -Adequate pulmonary toilet with frequent tracheostomy suction -Continue humidified supplemental oxygen via trach collar, wean as tolerated Chronic dental infection S/p surgical extraction of remaining maxillary and mandibular teeth 09/17 -Pain medication as needed Laryngeal cancer status post tracheostomy Oncology following. Was pending tooth extraction prior to starting treatment. Patient had tooth extraction on 09/17 -Oncology planning on chemoradiation 1 week after dental extraction CAD Dyslipidemia Continue aspirin, Plavix, statin, low-dose beta-yi Anxiety/Depression/Psychiatric disorder Continue Paxil, Risperdal CKD ?3a Avoid nephrotoxic medications Renally dose medications Avoid hypotension DVT prophylaxis: Heparin, SCDs Outpatient follow up: PCP, Oncology Anticipated Disposition: Location & time frame: Inpatient rehab Criteria: Awaiting placement Understanding of illness: Patient: good DIET DYSPHAGIA Level 4 Pureed,; Level 0 Thin, Code status: Full Code Arlyn Kate MD 09/19/2024, 10:16 AM INE SIGN WRITER INE SIGN WRITER * Rashmi Dumont MD - 09/19/2024 9:37 AM CST ONCOLOGY PROGRESS NOTE Subjective: No complaints, overall feeling better. Serum creatinine 1.29. Encourage oral hydration. Continues on Airvo Review of Systems: Constitutional: denies fevers, chills, sweats, fatigue Neurological: denies headaches, weakness, visual changes Respiratory: denies cough, dyspnea, nosebleeds Cardiovascular: denies chest pain or discomfort Gastrointestinal: denies abdominal pain, constipation, diarrhea, vomiting Genitourinary: denies dysuria, urinary frequency Hematologic, Oncologic: denies bruising, bleeding, petechiae Lymphatic: denies lymph node swelling, no lumps or bumps Musculoskeletal: denies: myalgia, muscle weakness Skin: denies nail changes or rash Objective: Vitals: 09/19/24 0315 09/19/24 0428 09/19/24 0749 09/19/24 0841 BP: 108/64 BP Location: Left arm Patient Position (BP): Supine Pulse: 67 68 64 Resp: 16 18 18 Temp: 98.6 ??F (37 ??C) TempSrc: Temporal SpO2: 93% 93% 94% Weight: 88.5 kg (195 lb 1.7 oz) Height: PHYSICAL EXAMINATION: General appearance: Alert, in no distress ECOG 0. Head: Atraumatic, normocephalic without obvious abnormality. Eyes: Conjunctivae/corneas clear. PERRL, EOM's intact. Nose: Nares normal. Septum midline. Mucosa normal, no drainage, or sinus tenderness. Lungs: Clear to auscultation bilaterally, normal respiratory effort. Heart: Normal rate, regular rhythm, normal S1-S2, no murmurs, rubs, clicks, or gallops. Abdomen: Soft, non-tender. Bowel sounds normal, no masses, no organomegaly. Extremities: No extremity edema, no redness or tenderness in the calves or thighs, normal strength,normal tone. Pulses: 2+ and symmetric. Skin: Skin color, texture, turgor normal, no rashes, or lesions. Data Review: Labs Reviewed Lab Results Component Value Date/Time WBC 5.7 09/19/2024 03:55 AM HGB 10.3 (L) 09/19/2024 03:55 AM HCT 33.7 (L) 09/19/2024 03:55 AM PLT 184 09/19/2024 03:55 AM MCV 100.3 09/19/2024 03:55 AM Lab Results Component Value Date/Time NA 139 09/19/2024 03:55 AM K 4.7 09/19/2024 03:55 AM CL 104 09/19/2024 03:55 AM CO2 27 09/19/2024 03:55 AM CA 8.5 (L) 09/19/2024 03:55 AM BUN 28 (H) 09/19/2024 03:55 AM CREAT 1.29 (H) 09/19/2024 03:55 AM GLUCOSE 95 09/19/2024 03:55 AM TOTALPROTEIN 5.5 (L) 09/16/2024 04:25 AM ALBUMIN 3.0 (L) 09/17/2024 04:00 AM BILITOTAL 0.2 09/16/2024 04:25 AM ALKPHOS 52 09/16/2024 04:25 AM AST 26 09/16/2024 04:25 AM ALT 20 09/16/2024 04:25 AM ANIONGAP 8 (L) 09/19/2024 03:55 AM CXR FINDINGS: COPD/emphysema. Mildly elevated right hemidiaphragm, unchanged. Bibasilar scarring or atelectasis. No lobar consolidation. No large pleural effusion. No pneumothorax. And limits normal heart size. Mild vascular congestion. No acute bony abnormality identified. Old right rib fractures. CT chest/abdomen/pelvis W IMPRESSION: 1. Small areas of atelectasis or consolidation are scattered throughout both lungs. Multifocal pneumonia or aspiration are possibilities. 2. Probable interstitial pulmonary edema and bilateral lungs. 3. Cardiomegaly. 4. Coronary artery atherosclerotic calcifications. 5. Mild mediastinal lymphadenopathy. 6. Possible small hiatal hernia. 7. Three small to moderate-sized fat-containing periumbilical hernias are present. 8. Multiple old, healed right posterior rib fractures. CT soft tissue neck IMPRESSION: 1. A 3.1 x 2.3 x [...] disease. 5. A tracheostomy tube is present. ASSESSMENT/PLAN Principal Problem: Laryngeal squamous cell carcinoma (CMS/HCC) Active Problems: Bipolar disorder, unspecified (CMS/HCC) Essential hypertension COPD (chronic obstructive pulmonary disease) (CMS/HCC) CKD (chronic kidney disease) Hx of laryngeal cancer Acute renal failure superimposed on chronic kidney disease Pneumonia due to respiratory syncytial virus (RSV) Multifocal pneumonia Acute respiratory failure with hypoxia (CMS/HCC) Laryngeal squamous cell carcinoma -diagnosed April 2024 at OSH -declined surgery -[facility] following-planned for concurrent chemoradiation with cisplatin-therapy on hold due to acutehospitalization-plan to start 1 week after dental extractions -s/p dental extraction 09/17/2024 -Plan to start concurrent chemoradiation 1 simulation completed, in 1 week. Patient is awaiting placement Anemia in neoplastic disease -hgb 10.3 -monitor daily -plan to transfuse for hgb <7 or active bleeding -medical management per primary team and appropriate consultants Oncology daily plan: -monitor counts,plan to maynard culture for fever > 100.4 if ANC < 1 -monitor counts, plan to transfuse for hgb <7, plts <10 or active bleeding Discharge planning -disposition-TBD per primary team-awaiting placement -timeframe-TBD per primary team -criteria-clinical improvement -follow up-TBD pending clinical course INE SIGN WRITER * Arlyn Kate MD - 09/18/2024 12:08 PM CST Images from the original note were not included. [employer] our life's work [facility] Hospitalist/[facility] Medicine Progress note LOS: LOS: 5 days Room/Bed: [facility]/ Patient name: Ventura Elmore Date of : 1975 HOSPITAL COURSE SUMMARY HPI: 49 y.o. female admitted 09/13/2024 with hypotension and tachycardia. Recently hospitalized at [place] between 08/22/2024 through 08/25/2024. Seen by her oncologist today and noted to be hypotensive in office and was transferred to hospital for evaluation. She is homeless, has been staying with a friend. 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 reports in prior documentation of poor historian. She was evaluated in ED and noted to be hypotensive after IVF bolus and initiated on levophed. She was transferred to the ICU under CCM management. ICU Care Plan Summary on 09/15: This is a 49-year-old female with a past medical history of laryngeal squamous cell carcinoma, who is currently being managed for septic shock requiring pressors, also has a history of trach/PEG and carcinoma as above. Hemodynamics have improved. Was weaned off pressor support yesterday and remains off. Will restart CAPTAIN'S ASSISTANT medications as tolerated. Resume CAPTAIN'S ASSISTANT Risperdal. RSV positive, supportive care. Concern for septic shock on admission, no growth from culture data thus far. She does have poor dentition and this may have also been a possible source. De-escalate from broad-spectrum vancomycin/cefepime to short course of ceftriaxone. Reevaluate if necessary. Pneumonia was also considered as possible source, CT chest on admission mentioned possible scattered consolidations, hence speech therapy has been consulted to evaluate for possible silent aspiration. MBS pending for today. Renal function improving. Oncology following with ongoing workup. With clinical status now improved, I have contacted Dr. Jamil office (oral surgery) and relayed that the patient is now stable for surgical intervention. History of laryngeal cancer as above, homeless and unable to obtain care at this time. Case management consulted. May need placement. ICU timeline: 09/13: Admitted to ICU, on pressors 09/14: continued on pressors, broad spectrum antibiotics de-escalated. Oncology consulted. 09/15: Off of pressors. Oral surgery consulted for teeth extraction. Transfer out of ICU Hospitalist timeline: 09/16: Awaiting teeth extractions. BP stable. Completed antibiotic course. 09/17: Underwent teeth extraction surgery today under anesthesia. 09/08: Assumed care today. Patient doing well, s/p teeth extraction yesterday. On Airvo 50%. PendingPT/OT eval for placement Consultants During this admission: IP CONSULT TO IV TEAM IP CONSULT TO NUTRITION SERVICES IP CONSULT TO IV TEAM IP CONSULT TO IV TEAM IP CONSULT TO CASE MANAGEMENT SUBJECTIVE: Patient seen and examined at bedside, no new complaints OBJECTIVE: Temp (24hrs), Av.6 ??F (36.4 ??C), Min:96.3 ??F (35.7 ??C), Max:98.1 ??F (36.7 ??C) BP (!) 92/50 (BP Location: Left lower leg, Patient Position (BP): Supine) Pulse 69 Temp 98.1 ??F (36.7 ??C) (Temporal) Resp 18 Ht 5' 5 (1.651 m) Wt 85.7 kg (188 lb 15 oz) SpO2 93% BMI 31.44 kg/m?? Intake/Output Summary (Last 24 hours) at 09/18/2024 1212 Last data filed at 09/18/2024 0351 Gross per 24 hour Intake 950 ml Output 950 ml Net 0 ml Last documented weight: Weight: 85.7 kg (188 lb 15 oz) (09/18/24 0340) GENERAL: female laying on bed in no acute distress. E/N/M/T: Normal appearing pinna, no ear discharge noted. Nares normal in appearance. Tracheostomy in place. CARDIOVASCULAR: Normal rate, regular rhythm, S1 S2 heard. No peripheral edema noted. RESPIRATORY: on Trach collar at 45% FiO2. Clear to auscultation bilaterally except for patchy rales. GASTROINTESTINAL: Non-distended, soft, non-tender. Bowel sounds normoactive. GENITOURINARY: No suprapubic tenderness. INTEGUMENTARY: Warm, dry. No obvious rashes noted on exposed skin. NEUROLOGIC: Awake, alert and oriented. No new gross focal motor deficits noted. LABORATORY: Recent Labs 09/16/24 0528 09/17/24 0400 09/18/24 0322 WBC 3.5* 4.1* 5.9 HGB 10.8* 11.8* 10.7* HCT 35.6* 36.1 34.5* PLT 170 155 231 Recent Labs 09/16/24 0425 09/17/24 0400 NA 137 138 K 4.8 4.9 CL 107 106 CO2 23 25 CA 8.9 9.2 BUN 25* 22* CREAT 1.29* 1.14* GLUCOSE 86 83 Recent Labs 09/16/24 0425 09/17/24 0400 TOTALPROTEIN 5.5* -- ALBUMIN 2.7* 3.0* BILITOTAL 0.2 -- ALKPHOS 52 -- AST 26 -- ALT 20 -- No results for input(s): INR , PT in the last 72 hours. Invalid input(s): PTT No results for input(s): BASETROP , 2HRTROP , DELTA , 6HRTROP in the last 72 hours. Inpatient Medications and relevant orders were reviewed. ASSESSMENT AND PLAN: Primary Discharge Diagnosis: Laryngeal squamous cell carcinoma ([facility]) Other Active medical issues also addressed during this admission: Active Hospital Problems Diagnosis Multifocal pneumonia Acute respiratory failure with hypoxia ([facility]) Pneumonia due to respiratory syncytial virus (RSV) Hx of laryngeal cancer Acute renal failure superimposed on chronic kidney disease Laryngeal squamous cell carcinoma ([facility]) Essential hypertension Bipolar disorder, unspecified ([facility]) CKD (chronic kidney disease) COPD (chronic obstructive pulmonary disease) ([facility]) Resolved Hospital Problems Diagnosis Date Resolved Hypovolemic shock ([facility]) 09/16/2024 Severe sepsis with septic shock ([facility]) 09/16/2024 PLAN: Septic shock on presentation Resolved Clinically monitor for signs of recurrence of infection RSV pneumonia Multifocal pneumonia Acute respiratory failure with hypoxia Completed antibiotic course Continue supportive care Adequate pulmonary toilet with frequent tracheostomy suction Continue humidified supplemental oxygen via trach collar, wean as tolerated -Will need supplemental O2 at discharge Chronic dental infection S/p surgical extraction of remaining maxillary and mandibular teeth 09/17 -Pain medication as needed Laryngeal cancer status post tracheostomy Oncology following. Was pending tooth extraction prior to starting treatment. Patient had tooth extraction on 09/17 -Oncology planning on radiation therapy CAD Dyslipidemia Continue aspirin, Plavix, statin, low-dose beta-yi Anxiety/Depression/Psychiatric disorder Continue Paxil, Risperdal CKD ?3a Avoid nephrotoxic medications Renally dose medications Avoid hypotension DVT prophylaxis: Heparin, SCDs Outpatient follow up: PCP, Oncology Anticipated Disposition: Location & time frame: Home vs medical respite/Jail Criteria: Clinically stable, placement Understanding of illness: Patient: good DIET GENERAL Effective Now Code status: Full Code Arlyn Kate MD 09/18/2024, 12:12 PM INE SIGN WRITER INE SIGN WRITER INE SIGN WRITER INE SIGN WRITER * Estela Hernandez, Physical Therapist - 09/18/2024 11:06 AM CST [facility] - Therapy Services [facility]. Acute Physical Therapy Evaluation 09/18/2024 Room: [address] [place] [address] Name: Ventura Elmore Age: 49 y.o. Date of : 1975 Insurance: Payor: MEDICAID / Plan: MEDICAID [place] / [facility] Type: Medicaid / Patient Class: Inpatient Onset of illness/injury or date of surgery: 09/13/2024 Subjective Information/History Subjective Information Provided By: Patient Prior level of Function: Patient cleared to mobilize. Pulmonary present to assess respiratory needswith activity and PT evaluate while oxygen and HR monitored per MA. Patient lives with her in a trailer. She stated she has a WWR at home. She has not needed assistance and her is able to assist as needed. She expressed concern for falling as during ambulation, her arms gave out . Patient reports general weakness and she will need chemotherapy in the future. Patient stated she has some pain to her neck/trach area. She denied any dizziness. Patient stated she has been able to transfer to/from bedside commode independently. Home Environment: Trailer Steps to enter with rail Available Adaptive Equipment: WWR Assistance available: able to assist Patient/Family Goals Statement: Patient expressed desire to gain strength to decrease fall risk with ambulation Pain: Refer to Doc Flowsheet for documented pain levels. Consent To Treatment Given By: Patient and Nurse Safety Awareness Orientation: Person, Place, Date, and Situation Command Following: good Safety Awareness: Good Precautions Patient Precautions: Fall Risk and Oxygen Bracing/Orthotics: none Weight Bearing: No restrictions Objective Information/Examination Muscle Tone: Normal Coordination: Not Tested Sensation: Intact to light touch to lower extremities ROM: Right UE: Active: WFL Left UE: Active: WFL Right LE: Active: WFL Left LE: Active: WFL Strength: Right UE: Not formally manually muscle tested, patient demonstrated adequate strength for functional tasks Left UE: Not formally manually muscle tested, patient demonstrated adequate strength for functionaltasks Right LE: decreased strength proximally knee and hip, knee extension 4-/5, hip flexion 3+-4-/5 Left LE: decreased strength proximally knee and hip, knee extension 4-/5, hip flexion 4-/5 Functional Mobility: Supine to/from sit with independence Sit to stand with supervision Gait Training: Patient ambulated with WWR approximately 120 feet with minimal assist secondary to elbows giving out times 1 and knee times 1. Patient able to verbalize limited activity tolerance and vitals monitored per MA. Balance: Static sitting balance: independent EOB Static and dynamic standing balance: minimal assist, LE weakness Vitals See MA note for vitals at rest and with activity. Patient has a trach. After PT evaluation: Oxygen saturation: 95% HR: 68 bpm [facility] AM-PAC Basic Mobility How much help from another person does the patient currently need? Score 1. Turning from your back to your side while in a flat bed without using bedrails? 4 - None (independent) 2. Moving from lying on your back to sitting on the side of a flat bed without using bedrails? 4 - None (independent) 3. Moving to and from a bed to a chair (including a wheelchair)? 4 - None (independent) 4. Standing up from a chair using your arms (e.g., wheelchair, or bedside chair)? 3 - A little (supervision to min assist) 5. Walking in hospital room? 3 - A little (supervision to min assist) 6. Climbing 3-5 steps with a railing? 3 - A little (supervision to min assist) Total score 21/24 0-16 - indicates likely facility discharge 17-24 indicates likely community discharge * scores determined based on patient report, observation or professional expertise Assessment/Plan Ventura Elmore is a 49 y.o. female is referred for physical therapy. Based on objective findings above, the patient presents with the following impairments: balance deficits, decreased activity tolerance, risk for falls, and oxygen needs which impacts safety and functional mobility skills. Patientlives with her who is able to assist. She reports general strength deficits and limited activity tolerance. She stated she has noticed a decline in her balance due to general weakness which is evident with ambulation. She will require chemotherapy and is at risk for strength deficits. Patient is currently functioning below her prior level of function. PT to follow in acute setting. Patient would benefit from daily PT services to address deficits with goal for increased independence with functional mobility. Plan will include but is not limited to: Gait Training, Transfer Training, Patient/Family Education, and Balance Training. Specific focus for next treatment session: progressive mobility, LE strengthening, up to chair. PT Evaluation: high complexity Recommendations During acute hospitalization, recommend medium frequency treatment (3-5 times per week). Current plan of care to continue until goals met or patient discharges from facility. Functional Prognosis: Based on prior level of function and deficits, anticipate good progress toward goals. Based on PT assessment of and/or progress with physical function, AM-PAC Basic Mobility score, and tolerance for activity, anticipated discharge disposition, once medically ready: Inpatient rehab unit/facility (09/18/24 1106). If primary discharge recommendation is not approved or available, recommend discharge to home with assist Plan of care and/or discharge recommendations shared with: Patient PT Recommended DME: . none Daily activity recommendations: Up with 1 assist Recommendations for referral to another service: Care Management Education/Training Provided Additional education provided: discharge planning, functional mobility, rehabilitation principles, and safety Learner, method of education, and response to learning listed in Education tab in Epic. Disposition At start of session, patient found lying in bed At end of session, patient left lying in bed and call light in reach Current Diagnoses/Past Medical History Pertinent diagnoses and past medical history related to this hospital stay are present in physicianH&P and physician daily notes. Prior to PT session a thorough chart review was completed including prior PT notes as applicable. Further treatment notes and therapeutic goals can be found in Care Plan Notes. If the patient discharges from the facility before another therapy visit, this shall serve as the therapy discharge summary. Thank you for this referral, Estela Hernandez Physical Therapist Physician order authorization: I certify that this patient is under my care and requires all the above therapy services. Physician Signature/Electronic Facsimile : INE SIGN WRITER * Rashmi Dumont MD - 09/18/2024 9:41 AM CST ONCOLOGY PROGRESS NOTE 09/18/2024, 9:41 AM Subjective: Patient awake alert and oriented. She looks and feels well she states. Dr. Escalantemexplained that her kidney function isn't great so encouraged patient to drink plenty of fluids so this doesn't cause an issue with her chemotherapy regimen. Dr. Domínguez will talk to radiation oncology to see when we are able to resume radiation. Patient denies any acute concerns or needs at this time. Review of Systems: General ROS: negative for weight changes, fever Ophthalmic ROS: negative for visual changes, ocular redness or discharge ENT ROS: negative for nasal congestion, drainage or bleeding, sore throat, dysphagia or ear pain Hematological and Lymphatic ROS: negative for swollen glands or abnormal bleeding Breast ROS: negative for breast lumps or pain Respiratory ROS: negative for cough, shortness of breath, or wheezing Cardiovascular ROS: negative for chest pain or dyspnea on exertion Gastrointestinal ROS: negative for reflux, abdominal pain, change in bowel habits, or black or bloody stools Genito-Urinary ROS: negative for dysuria, trouble voiding, or hematuria Musculoskeletal ROS: negative for back pain, neck pain or joint pain or swelling Neurological ROS: negative for TIA or stroke symptoms Dermatological ROS: negative for skin rashes or unusual skin lesions Objective: BP (!) 92/48 (BP Location: Left arm, Patient Position (BP): Supine) Comment: nurse notified Pulse66 Temp 97.8 ??F (36.6 ??C) (Temporal) Resp 16 Ht 5' 5 (1.651 m) Wt 85.7 kg (188 lb 15 oz) SpO2 92% BMI 31.44 kg/m?? Body surface area is 1.98 meters squared. On Exam: Hand hygiene performed before and after patient contact. General appearance: active, alert, cooperative, no distress, social, + trach HEENT: EOMI, OP clear, neck supple, no JVD Heart: regular rate and rhythm, S1, S2 normal, no murmur, click, rub or gallop Lungs: breath sounds equal, clear to auscultation bilaterally, no retractions, normal respiratory effort Gastrointestinal: bowel sounds positive, abdomen soft, non-tender, non- distended. Musculoskeletal and neuro: moves extremities to instruction, sensation intact. Integumentary: no new rash or lesion noted. Psychiatric: alert and oriented. Mood and affect normal, judgement and insight intact Extremities: no new edema. Data: Results for orders placed or performed during the hospital encounter of 09/13/24 (from the past 24 hours) POC GLUCOSE Result Value Ref Range GLUCOSE POC 88 74 - 99 mg/dL SPECIMEN SOURCE, GLUCOSE POC Capillary CBC WITHOUT DIFFERENTIAL Result Value Ref Range WBC 5.9 4.8 - 10.8 K/uL RBC 3.59 (L) 4.20 - 5.40 M/uL HEMOGLOBIN 10.7 (L) 12.0 - 16.0 g/dL HEMATOCRIT 34.5 (L) 36.0 - 46.0 % MCV 96.1 84.0 - 103.0 fL MCH 29.8 27.0 - 34.0 pg MCHC 31.0 30.0 - 35.0 g/dL PLATELETS 231 140 - 440 K/uL MPV 9.5 8.9 - 12.8 fL RDW 12.4 11.0 - 14.5 % RDW-STDEV 43.5 37.0 - 54.0 fL Current Facility-Administered Medications Medication Dose Route Frequency Provider Last Rate Last Admin albuterol (PROVENTIL,VENTOLIN) 2.5 mg /3 mL (0.083 %) inhalation solution 2.5 mg 2.5 mg Inhalation resp, now then every 12 hours Wilfredo Harmon MD 2.5 mg at 09/18/24 0836 [COMPLETED] sodium chloride 0.9 % bolus solution 1,000 mL 1,000 mL IV ONE time only Wilfredo Harmon MD Stopped at 09/17/24 1527 [DISCONTINUED] lactated ringers infusion IV post-proc continuous Kendall Jones MD Stopped at 09/17/24 1438 [DISCONTINUED] fentaNYL PF (SUBLIMAZE) 50 mcg/mL injection 50 mcg 50 mcg IV post-proc every 3 minutes PRN Kendall Jones MD [DISCONTINUED] HYDROmorphone (PF) (DILAUDID) injection 0.5 mg 0.5 mg IV post- proc every 5 minutes PRN Kendall Jones MD [DISCONTINUED] ondansetron (ZOFRAN) 4 mg/2 mL injection 4 mg 4 mg IV post-proc one time PRN Kendall Jones MD [DISCONTINUED] prochlorperazine (COMPAZINE) injection 10 mg 10 mg IV post-proc one time PRN Kendall Jones MD [DISCONTINUED] diphenhydrAMINE (BENADRYL) injection 12.5 mg 12.5 mg IV post-proc one time PRN Kendall Jones MD [DISCONTINUED] hydrALAZINE (APRESOLINE) 20 mg/mL injection 2.5 mg 2.5 mg IV post-proc every 10 minutes PRN Kendall Jones MD [DISCONTINUED] lidocaine-EPINEPHrine (XYLOCAINE-EPI) 2 %-1:100,000 injection intra-proc PRN Reinaldo Dsouza MD 10 mL at 09/17/24 1308 morphine 4 mg/mL injection 2 mg 2 mg IV every 2 hours PRN Wilfredo Harmon MD 2 mg at 09/18/24 0720 melatonin tablet 3 mg 3 mg Oral at bedtime PRN Wilfredo Harmon MD 3 mg at 09/17/242105 sennosides (SENOKOT) tablet 17.2 mg 17.2 mg Oral BID PRN Wilfredo Harmon MD Saccharomyces boulardii (FLORASTOR) capsule 250 mg 250 mg Oral BID Wilfredo Harmon MD 250 mg at 09/18/24 09 ALBUTEROL SULFATE 2.5 MG/3 ML (0.083 %) SOLUTION FOR NEBULIZATION (CABINET OVERRIDE) [DISCONTINUED] albuterol (PROVENTIL,VENTOLIN) 2.5 mg /3 mL (0.083 %) inhalation solution 2.5 mg 2.5mg Inhalation resp, 2 times daily Wilfredo Harmon MD 2.5 mg at 09/17/242003 metoprolol tartrate (LOPRESSOR) tablet 25 mg 25 mg G Tube BID Savannah Garcia MD 25 mg at 09/17/242105 risperiDONE (RisperDAL) tablet 2 mg 2 mg Oral daily Savannah Garcia MD 2 mg at 09/18/24 0933 sodium chloride flush injection 5 mL 5 mL IV every 12 hours Savannah Garcia MD 5 mL at 09/17/24 1607 sodium chloride flush injection 5 mL 5 mL IV see admin instructions Savannah Garcia MD [COMPLETED] sodium chloride flush injection 10 mL 10 mL IV every 5 minutes PRN Savannah Garcia MD 10 mL at 09/17/24 1606 naloxone (NARCAN) 0.4 mg/mL injection 0.1-0.4 mg 0.1-0.4 mg IV see admin instructions Savannah Garcia MD acetaminophen (TYLENOL) tablet 650 mg 650 mg Oral every 6 hours PRN Savannah Garcia MD 650 mg at 09/17/24 181 ondansetron (ZOFRAN) 4 mg/2 mL injection 4 mg 4 mg IV every 6 hours PRN Savannah Garcia MD 4 mg at 09/17/24 1305 clopidogreL (PLAVIX) tablet 75 mg 75 mg G Tube daily Savannah Garcia MD 75 mg at 09/18/24 0933 aspirin (RISA CHEWABLE) chewable tablet 81 mg 81 mg G Tube daily Savannah Garcia MD 81 mg at 933 atorvastatin (LIPITOR) tablet 80 mg 80 mg G Tube daily BEDTIME Savannah Garcia MD 80 mg at 09/17/242105 budesonide (PULMICORT RESPULE) 0.5 mg/2 mL inhalation solution 0.5 mg 0.5 mg Inhalation resp, dailySavannah Garcia MD 0.5 mg at 09/18/24 0836 PARoxetine HCl (PAXIL) tablet 20 mg 20 mg G Tube daily Savannah Garcia MD 20 mg at 09/18/24 09 HYDROcodone-acetaminophen (NORCO) 5-325 mg per tablet 1 Tablet 1 Tablet Oral every 4 hours PRN Savannah Garcia MD 1 Tablet at 09/18/24 09 heparin injection 5,000 Units 5,000 Units subCUT every 8 hours Savannah Garcia MD 5,000 Units at 09/18/24 0448 Facility-Administered Medications Ordered in Other Encounters Medication Dose Route Frequency Provider Last Rate Last Admin [DISCONTINUED] lactated ringers infusion IV intra-proc continuous PRN Raghu Ruvalcaba AA Stopped-Anesthesia at 09/17/24 1337 [DISCONTINUED] ceFAZolin (ANCEF,KEFZOL) vial IV intra-proc PRN Raghu Ruvalcaba AA 2,000 mg at 09/17/24 1205 [DISCONTINUED] midazolam (VERSED) injection IV intra-proc PRN Raghu Ruvalcaba AA 2 mg at 09/17/24 1150 [DISCONTINUED] rocuronium injection IV intra-proc PRN Raghu Ruvalcaba AA 50 mg at 09/17/24 1202 [DISCONTINUED] fentaNYL PF (SUBLIMAZE) 50 mcg/mL injection IV intra-proc PRN Raghu Rvualcaba AA 50mcg at 09/17/24 1239 [DISCONTINUED] ePHEDrine injection IV intra-proc PRN Raghu Ruvalcaba AA 20 mg at 09/17/24 1251 [DISCONTINUED] phenylephrine syringe IV intra-proc PRN Raghu Ruvalcaba AA 100 mcg at 09/17/24 1251 [DISCONTINUED] dexAMETHasone (DECADRON) injection IV intra-proc PRN Raghu Ruvalcaba, AA 4 mg at 09/17/24 1305 [DISCONTINUED] sugammadex (BRIDION) 100 mg/mL injection IV intra-proc PRN Raghu Ruvalcaba AA 200 mg at 09/17/24 1311 Intake/Output Summary (Last 24 hours) at 09/18/2024 0941 Last data filed at 09/18/2024 0351 Gross per 24 hour Intake 950 ml Output 1150 ml Net -200 ml Assessment and plan: Patient Active Problem List Diagnosis Code Hypertensive emergency I16.1 RADHA (acute kidney injury) N17.9 Elevated brain natriuretic peptide (BNP) level R79.89 Bipolar disorder, unspecified ([facility]) F31.9 Methamphetamine abuse ([facility]) F15.10 Essential hypertension I10 CAD (coronary atherosclerotic disease) I25.10 Acute on chronic diastolic heart failure ([facility]) I50.33 Stridor R06.1 COPD (chronic obstructive pulmonary disease) ([facility]) J44.9 CKD (chronic kidney disease) N18.9 Acute respiratory distress R06.03 Vocal cord paralysis J38.00 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 Community acquired pneumonia of right lower lobe of lung J18.9 Laryngeal squamous cell carcinoma ([facility]) C32.9 Hx of laryngeal cancer Z85.21 Acute renal failure superimposed on chronic kidney disease N17.9, N18.9 Pneumonia due to respiratory syncytial virus (RSV) J12.1 Multifocal pneumonia J18.9 Acute respiratory failure with hypoxia ([facility]) J96.01 49-year-old female with laryngeal squamous cell carcinoma, awaiting treatment, pending tooth extraction prior to starting treatment. Could not get tooth extraction done as outpatient, due to anesthesia not being able to perform outpatient sedation within 4 to 6 weeks of having received antibiotics, [last antibiotic was on 08/25/2024]. Poor social situation overall, no transportation, no way to get in touch with patient. Admitted to get tooth extraction done, and for placement. She has been seen by the dentist, and plan is to proceed with tooth extraction INPATIENT, so that she may receive sedation inpatient and have her tooth extracted in a timely manner so as to proceed with treatment. There has already been a 2-month delay with starting treatment. Restaging CT soft tissue neck-no progression noted, 3.1 cm vocal cord mass appears similar to prior PET on 07/13/2024. Few subcentimeter bilateral cervical lymph nodes. Possible interstitial pulmonary edema in bilateral lungs. Restaging CT chest abdomen pelvis : No progression noted -small areas of atelectasis or consolidation are scattered throughout both lungs, multifocal pneumonia or aspiration are possibilities. Probable interstitial pulmonary edema in bilateral lungs. Mild mediastinal lymphadenopathy multiple old healed right posterior rib fractures. Patient is RSV positive. Clinically no symptoms. Seen by Dr. Reinaldo Dsouza, from oral surgery and tooth extraction performed 09/17/2024. Assessment and Plan: Principal Problem: Laryngeal squamous cell carcinoma (CMS/HCC) Active Problems: Bipolar disorder, unspecified (CMS/HCC) Essential hypertension COPD (chronic obstructive pulmonary disease) (CMS/HCC) CKD (chronic kidney disease) Hx of laryngeal cancer Acute renal failure superimposed on chronic kidney disease Pneumonia due to respiratory syncytial virus (RSV) Multifocal pneumonia Acute respiratory failure with hypoxia (CMS/HCC) Laryngeal squamous cell carcinoma - Patient has declined surgery - PET CT 07/13/24 hypermetabolic local cord mass keeping with known squamous cell carcinoma. - Dr. Goldberg radiation oncologist plans concurrent radiation - Admitted to the hospital 09/13/24 - Chemo on hold during hospitalization - 09/18/24 Doing better today, will contact Dr. Goldberg regarding radiation - Encouraged oral fluid intake to improve kidney function in preparation for resuming chemotherapy Anemia -hgb 10.7 -monitor daily -plan to transfuse for hgb <7 or active bleeding This note is prepared by GUY Buckner acting as a scribe for Dr Dumont. GUY Buckner, 09/18/2024 9:57 AM Patient seen and examined, Agree with Assessment and Plan except for amendments as below On Airvo 50%. S creat 1.1. NO complaints. AAOx3. c/w oral hydration to optimize kidney function to give cisplatin chemo. D/w Rad Onc- rentative plan to start chemoXRT next week ( sim 1 week after tooth extractions) INE SIGN WRITER INE SIGN WRITER INE SIGN WRITER * Wilfredo Harmon MD - 09/17/2024 7:38 PM CST Images from the original note were not included. [employer] is our life's work [facility] Hospitalist/[facility] Medicine Progress note LOS: LOS: 4 days Room/Bed: 1513/01 Patient name: Ventura Elmore Date of : 1975 HOSPITAL COURSE SUMMARY HPI: 49 y.o. female admitted 09/13/2024 with hypotension and tachycardia. Recently hospitalized at [place] between 08/22/2024 through 08/25/2024. Seen by her oncologist today and noted to be hypotensive in office and was transferred to hospital for evaluation. She is homeless, has been staying with a friend. 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 reports in prior documentation of poor historian. She was evaluated in ED and noted to be hypotensive after IVF bolus and initiated on levophed. She was transferred to the ICU under [facility] management. ICU Care Plan Summary on 09/15: This is a 49-year-old female with a past medical history of laryngeal squamous cell carcinoma, who is currently being managed for septic shock requiring pressors, also has a history of trach/PEG and carcinoma as above. Hemodynamics have improved. Was weaned off pressor support yesterday and remains off. Will restart CAPTAIN'S ASSISTANT medications as tolerated. Resume CAP[employer]'S ASSISTANT Risperdal. RSV positive, supportive care. Concern for septic shock on admission, no growth from culture data thus far. She does have poor dentition and this may have also been a possible source. De-escalate from broad-spectrum vancomycin/cefepime to short course of ceftriaxone. Reevaluate if necessary. Pneumonia was also considered as possible source, CT chest on admission mentioned possible scattered consolidations, hence speech therapy has been consulted to evaluate for possible silent aspiration. MBS pending for today. Renal function improving. Oncology following with ongoing workup. With clinical status now improved, I have contacted Dr. Jamil office (oral surgery) and relayed that the patient is now stable for surgical intervention. History of laryngeal cancer as above, homeless and unable to obtain care at this time. Case management consulted. May need placement. ICU timeline: 09/13: Admitted to ICU, on pressors 09/14: continued on pressors, broad spectrum antibiotics de-escalated. Oncology consulted. 09/15: Off of pressors. Oral surgery consulted for teeth extraction. Transfer out of ICU Hospitalist timeline: 09/16: Awaiting teeth extractions. BP stable. Completed antibiotic course. 09/17: Underwent teeth extraction surgery today under anesthesia. Consultants During this admission: IP CONSULT TO IV TEAM IP CONSULT TO NUTRITION SERVICES IP CONSULT TO IV TEAM IP CONSULT TO IV TEAM IP CONSULT TO CASE MANAGEMENT SUBJECTIVE: Patient was seen and examined at bedside. Seen in PACU. Patient denied any new complaints. Discussed plan of care with nurse at bedside. OBJECTIVE: Temp (24hrs), Av ??F (36.7 ??C), Min:97.6 ??F (36.4 ??C), Max:98.5 ??F (36.9 ??C) BP 119/68 (BP Location: Left arm, Patient Position (BP): Supine) Pulse 65 Temp 98.1 ??F (36.7 ??C) (Temporal) Resp 16 Ht 5' 5 (1.651 m) Wt 84.5 kg (186 lb 4.6 oz) SpO2 93% BMI 31.00 kg/m?? Intake/Output Summary (Last 24 hours) at 09/17/2024 1938 Last data filed at 09/17/2024 1400 Gross per 24 hour Intake 1050 ml Output 2675 ml Net -1625 ml Last documented weight: Weight: 84.5 kg (186 lb 4.6 oz) (09/17/24 0434) GENERAL: female laying on bed in no acute distress. E/N/M/T: Normal appearing pinna, no ear discharge noted. Nares normal in appearance. Tracheostomy in place. CARDIOVASCULAR: Normal rate, regular rhythm, S1 S2 heard. No peripheral edema noted. RESPIRATORY: on Trach collar at 45% FiO2. Clear to auscultation bilaterally except for patchy rales. GASTROINTESTINAL: Non-distended, soft, non-tender. Bowel sounds normoactive. GENITOURINARY: No suprapubic tenderness. INTEGUMENTARY: Warm, dry. No obvious rashes noted on exposed skin. NEUROLOGIC: Awake, alert and oriented. No new gross focal motor deficits noted. LABORATORY: Recent Labs 09/15/24 0348 09/16/24 0528 09/17/24 0400 WBC 4.2* 3.5* 4.1* HGB 11.9* 10.8* 11.8* HCT 37.6 35.6* 36.1 PLT 188 170 155 Recent Labs 09/15/24 0348 09/16/24 0425 09/17/24 0400 NA 138 137 138 K 4.6 4.8 4.9 CL 108* 107 106 CO2 21* 23 25 CA 8.7 8.9 9.2 BUN 24* 25* 22* CREAT 1.24* 1.29* 1.14* GLUCOSE 90 86 83 Recent Labs 09/16/24 0425 09/17/24 0400 TOTALPROTEIN 5.5* -- ALBUMIN 2.7* 3.0* BILITOTAL 0.2 -- ALKPHOS 52 -- AST 26 -- ALT 20 -- No results for input(s): INR , PT in the last 72 hours. Invalid input(s): PTT No results for input(s): BASETROP , 2HRTROP , DELTA , 6HRTROP in the last 72 hours. Inpatient Medications and relevant orders were reviewed. ASSESSMENT AND PLAN: Primary Discharge Diagnosis: Laryngeal squamous cell carcinoma ([facility]) Other Active medical issues also addressed during this admission: Active Hospital Problems Diagnosis Multifocal pneumonia Acute respiratory failure with hypoxia ([facility]) Pneumonia due to respiratory syncytial virus (RSV) Hx of laryngeal cancer Acute renal failure superimposed on chronic kidney disease Laryngeal squamous cell carcinoma ([facility]) Essential hypertension Bipolar disorder, unspecified ([facility]) CKD (chronic kidney disease) COPD (chronic obstructive pulmonary disease) ([facility]) Resolved Hospital Problems Diagnosis Date Resolved Hypovolemic shock ([facility]) 09/16/2024 Severe sepsis with septic shock ([facility]) 09/16/2024 PLAN: Septic shock on presentation Resolved Clinically monitor for signs of recurrence of infection RSV pneumonia Multifocal pneumonia Acute respiratory failure with hypoxia Completed antibiotic course Continue supportive care Adequate pulmonary toilet with frequent tracheostomy suction Continue humidified supplemental oxygen via trach collar, wean as tolerated Will need supplemental O2 at discharge, home O2 eval next day. Chronic dental infection Underwent teeth extraction by oral surgery today Adequate pain control after extraction Bowel regimen Defer to oral surgery for any pre/post procedural antibiotics as indicated. Defer choice of diet to oral surgery Laryngeal cancer status post tracheostomy Patient had been awaiting dental surgery prior to plan for chemotherapy by oncology Oncology following, defer to oncology for plan of care CAD Dyslipidemia Continue aspirin, Plavix, statin, low-dose beta-yi Anxiety/Depression/Psychiatric disorder Continue Paxil, Risperdal CKD ?3a Avoid nephrotoxic medications Renally dose medications Avoid hypotension DVT prophylaxis: Heparin, SCDs Outpatient follow up: PCP, Oncology Anticipated Disposition: Location & time frame: Home vs medical respite/Jail, should be medically ready next day Criteria: No new plans by oncology Next day morning labs: CBC Understanding of illness: Patient: good DIET FULL LIQUID Code status: Full Code Communication preference: [employer] 'Secure Chat' preferred over pages for this provider, Please leave your callback number with each new secure chat. 7AM-7PM only. Page/SecureChat oncall E-hospitalist orcross-covering floor physician/provider from 7PM-7AM. On the day of the visit, I spent 45 minutes providing care to this patient including Preparing to see the patient, Obtaining and/or reviewing separately obtained history, Performing a medically appropriate examination and/or evaluation, Counseling and educating the patient/family/caregiver, Ordering medications, tests or procedures, Documenting clinical information in the medical record, and Carecoordination (not separately reported). Wilfredo Harmon MD 09/17/2024, 7:38 PM Parts of this note were transcribed using an automated dictation software. Efforts have been made to assure accuracy of the stars coordinator. Any obvious errors or omissions should be clarified with theauthor of the document. INE SIGN WRITER INE SIGN WRITER * Wilfredo Harmon MD - 09/16/2024 4:09 PM CST Images from the original note were not included. [employer] is our life's work [facility] Hospitalist/Hospital Medicine Progress note LOS: LOS: 3 days Room/Bed: 3155/01 Patient name: Ventura Elmore Date of : 1975 HOSPITAL COURSE SUMMARY HPI: 49 y.o. female admitted 09/13/2024 with hypotension and tachycardia. Recently hospitalized at [place] between 08/22/2024 through 08/25/2024. Seen by her oncologist today and noted to be hypotensive in office and was transferred to hospital for evaluation. She is homeless, has been staying with a friend. 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 reports in prior documentation of poor historian. She was evaluated in ED and noted to be hypotensive after IVF bolus and initiated on levophed. She was transferred to the ICU under [facility] management. ICU Care Plan Summary on 09/15: This is a 49-year-old female with a past medical history of laryngeal squamous cell carcinoma, who is currently being managed for septic shock requiring pressors, also has a history of trach/PEG and carcinoma as above. Hemodynamics have improved. Was weaned off pressor support yesterday and remains off. Will restart [employer]S ASSISTANT medications as tolerated. Resume CAP[employer]S ASSISTANT Risperdal. RSV positive, supportive care. Concern for septic shock on admission, no growth from culture data thus far. She does have poor dentition and this may have also been a possible source. De-escalate from broad-spectrum vancomycin/cefepime to short course of ceftriaxone. Reevaluate if necessary. Pneumonia was also considered as possible source, CT chest on admission mentioned possible scattered consolidations, hence speech therapy has been consulted to evaluate for possible silent aspiration. MBS pending for today. Renal function improving. Oncology following with ongoing workup. With clinical status now improved, I have contacted Dr. Jamil office (oral surgery) and relayed that the patient is now stable for surgical intervention. History of laryngeal cancer as above, homeless and unable to obtain care at this time. Case management consulted. May need placement. ICU timeline: 09/13: Admitted to ICU, on pressors 09/14: continued on pressors, broad spectrum antibiotics de-escalated. Oncology consulted. 09/15: Off of pressors. Oral surgery consulted for teeth extraction. Transfer out of ICU Hospitalist timeline: 1/25: Awaiting teeth extractions. BP stable. Completed antibiotic course. Consultants During this admission: IP CONSULT TO IV TEAM IP CONSULT TO NUTRITION SERVICES IP CONSULT TO IV TEAM IP CONSULT TO IV TEAM IP CONSULT TO CASE MANAGEMENT SUBJECTIVE: Patient was seen and examined at bedside. Feeling better. Continues to have jaw pain. Having secretions from tracheostomy tube which are being adequately suctioned. Discussed plan of care with nurse at bedside. OBJECTIVE: Temp (24hrs), Av.9 ??F (36.6 ??C), Min:97.1 ??F (36.2 ??C), Max:98.5 ??F (36.9 ??C) BP 105/79 (BP Location: Left arm, Patient Position (BP): Sitting) Pulse 70 Temp 97.1 ??F (36.2 ??C) (Temporal) Resp 18 Ht 5' 5 (1.651 m) Wt 87 kg (191 lb 12.8 oz) SpO2 93% BMI 31.92 kg/m?? Intake/Output Summary (Last 24 hours) at 09/16/2024 1626 Last data filed at 09/16/2024 0842 Gross per 24 hour Intake 859 ml Output 200 ml Net 659 ml Last documented weight: Weight: 87 kg (191 lb 12.8 oz) (09/15/24 2100) GENERAL: female laying on bed in no acute distress. E/N/M/T: Normal appearing pinna, no ear discharge noted. Nares normal in appearance. Tracheostomy in place with mucoid-sanguinous secretions. CARDIOVASCULAR: Normal rate, regular rhythm, S1 S2 heard. No peripheral edema noted. RESPIRATORY: on Trach collar at 40% FiO2. Clear to auscultation bilaterally except for patchy rales. GASTROINTESTINAL: Non-distended, soft, non-tender. Bowel sounds normoactive. GENITOURINARY: No suprapubic tenderness. INTEGUMENTARY: Warm, dry. No obvious rashes noted on exposed skin. NEUROLOGIC: Awake, alert and oriented. No new gross focal motor deficits noted. LABORATORY: Recent Labs 09/13/24 1648 09/14/24 0711 09/15/24 0348 09/16/24 0528 WBC 7.2 6.9 4.2* 3.5* HGB 13.8 11.7* 11.9* 10.8* HCT 42.6 37.7 37.6 35.6* PLT 315 245 188 170 Recent Labs 09/13/24 1648 09/14/24 0711 09/15/24 0348 09/16/24 0425 NA 139 143 138 137 K 4.5 4.5 4.6 4.8 CL 105 114* 108* 107 CO2 23 23 21* 23 CA 9.3 8.2* 8.7 8.9 BUN 31* 22* 24* 25* CREAT 1.65* 1.34* 1.24* 1.29* GLUCOSE 94 153* 90 86 Recent Labs 09/13/24 1648 09/16/24 0425 TOTALPROTEIN 6.7 5.5* ALBUMIN 3.6 2.7* BILITOTAL 0.2 0.2 ALKPHOS 82 52 AST 25 26 ALT 27 20 No results for input(s): INR , PT in the last 72 hours. Invalid input(s): PTT Recent Labs 09/13/24 1648 09/13/24 1943 09/14/24 0004 BASETROP 21* -- -- 2HRTROP -- 19* -- DELTA -- -2 0 6HRTROP -- -- 21* Inpatient Medications and relevant orders were reviewed. ASSESSMENT AND PLAN: Primary Discharge Diagnosis: Laryngeal squamous cell carcinoma ([facility]) Other Active medical issues also addressed during this admission: Active Hospital Problems Diagnosis Multifocal pneumonia Acute respiratory failure with hypoxia ([facility]) Pneumonia due to respiratory syncytial virus (RSV) Hx of laryngeal cancer Acute renal failure superimposed on chronic kidney disease Laryngeal squamous cell carcinoma ([facility]) Essential hypertension Bipolar disorder, unspecified ([facility]) CKD (chronic kidney disease) COPD (chronic obstructive pulmonary disease) ([facility]) Resolved Hospital Problems Diagnosis Date Resolved Hypovolemic shock ([facility]) 09/16/2024 Severe sepsis with septic shock ([facility]) 09/16/2024 PLAN: Septic shock on presentation Resolved Clinically monitor for signs of recurrence of infection RSV pneumonia Multifocal pneumonia Acute respiratory failure with hypoxia Completed antibiotic course Continue supportive care Adequate pulmonary toilet with frequent tracheostomy suction Continue humidified supplemental oxygen via trach collar, wean as tolerated Chronic dental infection Plan for teeth extraction by oral surgery today Keep n.p.o. Adequate pain control after extraction Bowel regimen Defer to oral surgery for any pre/post procedural antibiotics as indicated. Defer choice of diet to oral surgery Laryngeal cancer status post tracheostomy Awaiting dental surgery prior to plan for chemotherapy by oncology Oncology following CAD Dyslipidemia Continue aspirin, Plavix, statin, low-dose beta-yi Anxiety/Depression/Psychiatric disorder Continue Paxil, Risperdal CKD ?3a Avoid nephrotoxic medications Renally dose medications Avoid hypotension DVT prophylaxis: on hold for Oral surgery, resume as clinically appropriate, SCDs Outpatient follow up: PCP, Oncology Anticipated Disposition: Location & time frame: Home vs Jail vs LTC Criteria: Clinical improvement, Next day morning labs: RFP Understanding of illness: Patient: Oncology DIET NPO Strict Code status: Full Code Communication preference: [employer] 'Secure Chat' preferred over pages for this provider, Please leave your callback number with each new secure chat. 7AM-7PM only. Page/SecureChat oncall E-hospitalist orcross-covering floor physician/provider from 7PM-7AM. On the day of the visit, I spent 55 minutes providing care to this patient including Preparing to see the patient, Obtaining and/or reviewing separately obtained history, Performing a medically appropriate examination and/or evaluation, Counseling and educating the patient/family/caregiver, Ordering medications, tests or procedures, Documenting clinical information in the medical record, and Carecoordination (not separately reported). Wilfredo Harmon MD 09/16/2024, 4:26 PM Parts of this note were transcribed using an automated dictation software. Efforts have been made to assure accuracy of the stars coordinator. Any obvious errors or omissions should be clarified with theauthor of the document. INE SIGN WRITER INE SIGN WRITER * Wilfredo Harmon MD - 09/15/2024 7:07 PM CST ICU transfer handoff received from critical care management team. Chart reviewed in detail. QT was prolonged on last EKG on 09/13. Check magnesium and phos levels and replace as required. Continue telemetry. Repeat EKG next day. Cardiomegaly on CT, follow up Echo. Patient cleared for diet by speech therapy on regular diet. Oral surgery has been contacted by critical care team to inform medical stability to undergo anesthesia for teeth extraction. Agree with rest of the plan of care for today by author service. INE SIGN WRITER * Savannah Garcia MD - 09/15/2024 5:15 PM CST [facility] Patient Handoff Notification: Patient handoff given to Dr. Harmon INE SIGN WRITER * Rashmi Dumont MD - 09/15/2024 3:16 PM CST ONCOLOGY PROGRESS NOTE 09/15/2024, 3:16 PM Subjective: Patient awake alert and oriented. She looks and feels well she states. RSV positive. She has no symptoms from RSV, per patient. No worse cough, no shortness of breath. Review of Systems: General ROS: negative for weight changes, fever Ophthalmic ROS: negative for visual changes, ocular redness or discharge ENT ROS: negative for nasal congestion, drainage or bleeding, sore throat, dysphagia or ear pain Hematological and Lymphatic ROS: negative for swollen glands or abnormal bleeding Breast ROS: negative for breast lumps or pain Respiratory ROS: negative for cough, shortness of breath, or wheezing Cardiovascular ROS: negative for chest pain or dyspnea on exertion Gastrointestinal ROS: negative for reflux, abdominal pain, change in bowel habits, or black or bloody stools Genito-Urinary ROS: negative for dysuria, trouble voiding, or hematuria Musculoskeletal ROS: negative for back pain, neck pain or joint pain or swelling Neurological ROS: negative for TIA or stroke symptoms Dermatological ROS: negative for skin rashes or unusual skin lesions Objective: BP 131/87 Pulse 67 Temp 97.5 ??F (36.4 ??C) (Axillary) Resp 14 Ht 5' 5 (1.651 m) Wt 85 kg (187 lb 6.3 oz) SpO2 96% BMI 31.18 kg/m?? Body surface area is 1.97 meters squared. On Exam: Hand hygiene performed before and after patient contact. General appearance: active, alert, cooperative, no distress, social, + trach HEENT: EOMI, OP clear, neck supple, no JVD Heart: regular rate and rhythm, S1, S2 normal, no murmur, click, rub or gallop Lungs: breath sounds equal, clear to auscultation bilaterally, no retractions, normal respiratory effort Gastrointestinal: bowel sounds positive, abdomen soft, non-tender, non- distended. Musculoskeletal and neuro: moves extremities to instruction, sensation intact. Integumentary: no new rash or lesion noted. Psychiatric: alert and oriented. Mood and affect normal, judgement and insight intact Extremities: no new edema. Data: Results for orders placed or performed during the hospital encounter of 09/13/24 (from the past 24 hours) BASIC METABOLIC PANEL Result Value Ref Range SODIUM 138 136 - 145 mmol/L POTASSIUM 4.6 3.5 - 5.1 mmol/L CHLORIDE 108 (H) 98 - 107 mmol/L CO2 21 (L) 22 - 29 mmol/L CALCIUM 8.7 8.6 - 10.0 mg/dL BUN 24 (H) 6 - 20 mg/dL CREATININE 1.24 (H) 0.51 - 0.95 mg/dL GLUCOSE 90 74 - 99 mg/dL GFR 53 (L) >=60 mL/min/1.73 sq meter ANION GAP 9 9 - 20 mmol/L CBC WITHOUT DIFFERENTIAL Result Value Ref Range WBC 4.2 (L) 4.8 - 10.8 K/uL RBC 3.95 (L) 4.20 - 5.40 M/uL HEMOGLOBIN 11.9 (L) 12.0 - 16.0 g/dL HEMATOCRIT 37.6 36.0 - 46.0 % MCV 95.2 84.0 - 103.0 fL MCH 30.1 27.0 - 34.0 pg MCHC 31.6 30.0 - 35.0 g/dL PLATELETS 188 140 - 440 K/uL MPV 9.4 8.9 - 12.8 fL RDW 13.0 11.0 - 14.5 % RDW-STDEV 46.0 37.0 - 54.0 fL Current Facility-Administered Medications Medication Dose Route Frequency Provider Last Rate Last Admin cefTRIAXone (ROCEPHIN) 2,000 mg in sodium chloride 0.9% 50 mL IVPB (MBP) 2,000 mg IV every 24 hours(daily) Savannah Garcia MD [START ON 09/16/2024] metoprolol tartrate (LOPRESSOR) tablet 25 mg 25 mg G Tube BID Savannah Garcia MD risperiDONE (RisperDAL) tablet 2 mg 2 mg Oral daily Savannah Garcia MD [COMPLETED] barium sulfate (LIQUID E-Z PAQUE,BAROSPERSE) oral suspension 200 mL 200 mL Oral intra-proc ONE time Savannah Garcia MD 200 mL at 09/15/24 1443 [COMPLETED] barium sulfate (VARIBAR PUDDING) oral paste 45 mL 45 mL Oral intra- proc ONE time Savannah Garcia MD 45 mL at 09/15/24 1443 sodium chloride flush injection 5 mL 5 mL IV every 12 hours Savannah Garcia MD 5 mL at 09/15/24 0349 sodium chloride flush injection 5 mL 5 mL IV see admin instructions Savannah Garcia MD sodium chloride flush injection 10 mL 10 mL IV every 5 minutes PRN Guerda Willams FNP [COMPLETED] iopamidoL (ISOVUE-300) 61% injection (drawn from multi-use bulk pack) 100 mL 100 mL IV intra-proc ONE time Guerda Willams FNP 100 mL at 09/14/24 1703 naloxone (NARCAN) 0.4 mg/mL injection 0.1-0.4 mg 0.1-0.4 mg IV see admin instructions Kelin Bunn NP replacement reminder - Potassium 1 Each See Admin Instructions see admin instructions Kelin Bunn NP replacement reminder-Magnesium 1 Each See Admin Instructions see admin instructions Kelin Bunn NP replacement reminder - Phosphorus 1 Each See Admin Instructions see admin instructions Kelin Bunn NP replacement reminder-Calcium 1 Each See Admin Instructions see admin instructions Kelin Bunn NP acetaminophen (TYLENOL) tablet 650 mg 650 mg Oral every 6 hours PRN Kelin Bunn NP ondansetron (ZOFRAN) 4 mg/2 mL injection 4 mg 4 mg IV every 6 hours PRN Kelin Bunn NP 4 mg at 09/14/24 1854 clopidogreL (PLAVIX) tablet 75 mg 75 mg G Tube daily Kelin Bunn NP 75 mg at 09/15/24 0807 aspirin (RISA CHEWABLE) chewable tablet 81 mg 81 mg G Tube daily Kelin Bunn NP 81 mg at 09/15/24 0807 atorvastatin (LIPITOR) tablet 80 mg 80 mg G Tube daily BEDTIME Kelin Bunn NP 80 mg at 035 budesonide (PULMICORT RESPULE) 0.5 mg/2 mL inhalation solution 0.5 mg 0.5 mg Inhalation resp, dailyKelin Bunn NP 0.5 mg at 09/15/24 0827 PARoxetine HCl (PAXIL) tablet 20 mg 20 mg G Tube daily Kelin Bunn NP 20 mg at 09/15/24 1007 HYDROcodone-acetaminophen (NORCO) 5-325 mg per tablet 1 Tablet 1 Tablet Oral every 4 hours PRN Kelin Bunn NP 1 Tablet at 09/15/24 1247 heparin injection 5,000 Units 5,000 Units subCUT every 8 hours Kelin Bunn NP 5,000 Units at 09/15/24 1247 [DISCONTINUED] norepinephrine bitartrate-D5W (LEVOPHED) 8 mg/250 mL (32 mcg/mL) infusion 0-0.2 mcg/kg/min IV titrate Humberto Phillip MD Stopped at 09/14/24 1507 [DISCONTINUED] sodium chloride 0.9 % infusion IV continuous Humberto Phillip MD Stopped at 09/14/24 1727 [DISCONTINUED] cefePIME (MAXIPIME) 2,000 mg in sodium chloride 0.9% 50 mL IVPB (MBP) 2,000 mg IV every 12 hours (2 times daily) Kelin Bunn NP Stopped at 09/15/24 0930 [DISCONTINUED] VANCOMYCIN CONSULT TO PHARMACY See Admin Instructions see admin instructions Kelin Bunn NP Intake/Output Summary (Last 24 hours) at 09/15/2024 1516 Last data filed at 09/15/2024 0730 Gross per 24 hour Intake 940.01 ml Output 1325 ml Net -384.99 ml Assessment and plan: Patient Active Problem List Diagnosis Code Hypertensive emergency I16.1 RADHA (acute kidney injury) N17.9 Elevated brain natriuretic peptide (BNP) level R79.89 Bipolar disorder, unspecified ([facility]) F31.9 Methamphetamine abuse ([facility]) F15.10 Essential hypertension I10 CAD (coronary atherosclerotic disease) I25.10 Acute on chronic diastolic heart failure ([facility]) I50.33 Stridor R06.1 COPD (chronic obstructive pulmonary disease) ([facility]) J44.9 CKD (chronic kidney disease) N18.9 Acute respiratory distress R06.03 Vocal cord paralysis J38.00 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 Community acquired pneumonia of right lower lobe of lung J18.9 Laryngeal squamous cell carcinoma ([facility]) C32.9 Severe sepsis with septic shock ([facility]) A41.9, R65.21 Hx of laryngeal cancer Z85.21 Acute renal failure superimposed on chronic kidney disease N17.9, N18.9 Hypovolemic shock ([facility]) R57.1 RSV infection B33.8 49-year-old female with laryngeal squamous cell carcinoma, awaiting treatment, pending tooth extraction prior to starting treatment. Could not get tooth extraction done as outpatient, due to anesthesia not being able to perform outpatient sedation within 4 to 6 weeks of having received antibiotics,[last antibiotic was on 08/25/2024]. Poor social situation overall, no transportation, no way to get in touch with patient. Admitted to get tooth extraction done, and for placement. She has been seen by the dentist, and plan is to proceed with tooth extraction INPATIENT, so that she may receive sedation inpatient and have her tooth extracted in a timely manner so as to proceed with treatment. There has already been a 2-month delay with starting treatment. Restaging CT soft tissue neck-no progression noted, 3.1 cm vocal cord mass appears similar to prior PET on 07/13/2024. Few subcentimeter bilateral cervical lymph nodes. Possible interstitial pulmonary edema in bilateral lungs. Restaging CT chest abdomen pelvis : No progression noted -small areas of atelectasis or consolidation are scattered throughout both lungs, multifocal pneumonia or aspiration are possibilities. Probable interstitial pulmonary edema in bilateral lungs. Mild mediastinal lymphadenopathy multiple old healed right posterior rib fractures. Patient is RSV positive. Clinically no symptoms. Seen by Dr. 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 * AartiAnnette reyes Lauri, RT - 09/15/2024 2:42 PM CST IMAGING SERVICES- CONTRAST, MEDICATION and FLUSH PROTOCOL [facility] Enter the protocol in the patient's electronic health record using smartphrase: .imagingcontrastprotocol Communication Orders: Initiate a peripheral IV, if not already in place, and discontinue IV prior to discharge Enter order if needed: Insert Peripheral IV Medication Orders: Lidocaine 4% (L.M.X.4)- applied topically ONE TIME prior to IV catheter insertion PRN (apply 15 minutes prior to procedure) Sodium chloride 0.9% (normal saline) flush- 10 mLs PRN for saline lock or medication administration Oxygen- For respiratory distress, initiate O2 to maintain saturation greater than 90% CAT SCAN CT IV CONTRAST PROTOCOLS FOR ADULTS Iopamidol Injection 61% (ISOVUE-300)- Double bolus with MD approval Routine exams dosed by weight: <150lbs- 75mL 151lbs to 220lbs- 100mL >220lbs- 125mL CT Angiography: 100mL Runoff and Triphasic Liver Protocols: 150mL Iopamidol Injection 76% (ISOVUE-370) Cardiac- 110mL TAVR- 160mL CT IV CONTRAST PROTOCOLS FOR PEDIATRICS Iopamidol Injection 61% (ISOVUE-300) - Routine exams: 1mL per pound and Pediatric- Head / Face: 1mL per pound up to 50 lbs Pediatric- Routine exams: 1mL per pound up to 75 lbs 75-150 lbs: 75mL 150-220 lbs: 100mL >220 lbs: 125mL CT ORAL CONTRAST PROTOCOLS FOR ADULTS Iohexol 300mg/mL (OMNIPAQUE) for CT scan unless patient has a documented allergy to contrast * 15ml added to 16 oz of clear liquid of patient's choice. Preferred route is oral. May use nasoenteric tube if needed. Administer 16 oz the diluted Omnipaque 300, orally 1st dose 30-60 minutes prior to scan and 2nd dose just before scan. * Barium Sulfate 2% w/v (READI-CAT2) for CT scan when patient has documented contrast allergy Administer 2 doses of 450mL of barium sulfate. First dose 30-60 min prior to exam and 2nd dose justbefore exam. Preferred route is oral. May use nasoenteric tube if needed. Barium Sulfate 0.1% w/v, 0.1% w/w (VOLUMEN) for Enterography and GI Bleed protocols Administer VoLumen- 3 doses of 450 mL. 1st dose must be completed within 20 minutes. 2nd dose must be completed in the next 30 minutes. 3rd dose is given at scan time. Preferred route is oral. May use nasoenteric tube if needed. CT ORAL CONTRAST PROTOCOLS FOR PEDIATRICS Preferred route is oral, may use nasoenteric tube if needed. to 3 months- Barium Sulfate 2%w/v (READI-CAT2) thinned with water to a consistency for typical bottle feeding 3 Months to 3 years- Iohexol 300mg/mL (OMNIPAQUE) 5mL diluted with 16oz clear fluid. 1 dose: 30min prior to exam 4 years to 10 years- Iohexol 300mg/mL (OMNIPAQUE) 8mL diluted with 16oz clear fluid. 1 dose: 30min prior to exam 10 years and up- Iohexol 300mg/mL (OMNIPAQUE) 15mL diluted with 16oz clear fluid. 2 doses: first dose 30min prior to exam and 2nd dose just before scan if tolerated CT CYSTOGRAM Iopamidol 61% Injection ([id number]): 25mL Dilute into 500mL bag of sterile NS administer up to 300mL retrograde via urinary catheter DIAGNOSTIC RADIOLOGY Enter the protocol in the patient's electronic health record using smartphrase: ADULTS PROCEDURE DOSAGE ARTHROGRAMS Plain ISOVUE 300 12mL MRI-(Ankle,Elbow,Hip,Wrist,Knee,Shoulder) ISOVUE 300 5mL / Prohance .2ml CT-(Ankle,Elbow,Hip,Wrist,Knee,Shoulder) ISOVUE 300 20mL BARIUM ENEMAS BARIUM ENEMA AIR CONTRAST LIQUID POLIBAR 1900ml BARIUM ENEMA/ GASTROGRAFIN B.E. LIQUID POLIBAR 800mL + 3200mL of water or GASTROGRAFIN 960mL + 3040mL of water. CYSTOGRAM CYSTOGRAFIN 1500mL ESOPHAGUS BARIUM SWALLOW E-Z-HD Barium Sulfate for Suspension 340g. and/or E-Z-PAQUE Barium Sulfate Oral Suspension 355mL OMNIPAQUE 350 50ml or GASTROGRAFIN 120mL Barium tablet 700mg (if indicated) MODIFIED BARIUM SWALLOW Barium tablet 700mg, Varibar paste 90g/Varibar thin 74g/ Varibar honey 125mL/ Varibar [place] 120mL HYSTEROSALPINGOGRAM ISOVUE 300 30ml IVP'S ISOVUE 300 100ml MYELOGRAMS: CERVICAL ISOVUE-M 300 10mL THORACIC ISOVUE-M 300 10mL LUMBAR ISOVUE-M 200 12mL SMALL BOWEL SERIES E-Z-PAQUE Barium Sulfate for Oral Suspension 710mL or GASTROGRAFIN 240mL LOOPOGRAM ISOVUE 300 60mL NEPHROSTOGRAM ISOVUE 300 60mL RETROGRADE URETHROGRAM Cystografin 300mL UPPER GI Upper GI E-Z-HD Barium Sulfate for Suspension: 340g. and/or E-Z-PAQUE Barium Sulfate for Oral Suspension: 355mL Upper GI Air Contrast Same as above EZ Gas crystals (if indicated) URETHROCYSTOGRAM VOIDING Cystografin 1500mL PORT CONTRAST INJECTION WITH Isovue 300 20mL [facility]O PEDIATRICS PROCEDURE CONTRAST DOSAGE Upper GI Under Age 5 Liquid E-Z-Paque (Thin Barium) 240mL Omnipaque 180 (hypaque) or 350 50mL Upper GI Above Age 5 EZ HD (Thick Barium) 340g Liquid E-Z Paque (Thin Barium) 240mL EZ Gas Packet 4g Omnipaque 350 (hypaque) 50mL Small Bowel Series Under Age 5 Liquid E-Z Paque (Thin Barium) 240mL Omnipaque 180 (hypaque) 50mL Small Bowel Series Above Age 5 Liquid E-Z Paque (Thin Barium) 480mL Omnipaque 350 50mL Barium Swallow Under Age 5 Liquid E-Z Paque (Thin Barium) 240mL Omnipaque 180 (hypaque) 50mL Barium Swallow Above Age 5 EZ HD (Thick Barium) 340g Liquid E-Z Paque (Thin Barium) 240mL Omnipaque 350 50mL Modified Barium Swallow >1 Varibar [id number]: 1 to 2 Varibar Thin74 Paste 90g (Video Swallow with Speech) <2 Varibar [id number], [id number], Honey 125mL, Paste 90g IVP Isovue 300 100mL/1mL per lb. Urethrocystogram Voiding Cystografin 500mL Barium Enema Liquid Polibar 400mL+1600 water 2000mL Barium Enema with Hypaque Gastrografin 1 bottle mixed 5 bottle water 720mL Over 5 Gastrografin 480mL+1520 water 2000mL Barium Enema Air Contrast Liquid Polibar 1900mL INTERVENTIONAL RADIOLOGY PROCEDURE DOSAGE IR ARTERIOGRAM VISIPAQUE 320 OR OMNIPAQUE 300 MAX DOSAGE 400mL IR BILIARY ISOVUE 200 MAX DOSAGE 300 mL IR FISTULOGRAM ISOVUE 200 OR VISIPAQUE 320 MAX DOSAGE 400mL IR IVC FILTER ISOVUE 200 OR VISIPAQUE MAX DOSAGE 400 mL IR TUBE PLACEMENT ISOVUE 200 MAX DOSAGE 300 mL IR VENOUS ABDOMINAL VISIPAQUE 320 OR ISOVUE 200 MAX DOSAGE 400 mL IR VENOUS ACCESS ISOVUE 200 MAX DOSAGE 300 mL IR VENOUS UPPER AND LOWER EXTREMITY VISIPAQUE 320 OR ISOVUE 200 MAX DOSAGE 400 mL IR SPINAL INTERVENTION ISOVUE 200 MAX DOSAGE 100mL (FOR BALLOON ONLY) MRI MRI IV CONTRAST PROTOCOLS FOR ADULTS Gadobenate Dimeglumine (MULTIHANCE) (0.1mmol/0.2mL)- Administer 0.1mmol/kg = 0.2mL/kg up to 30mL MAX, intravenously, one time only for routine MRI Gadoxetate (EOVIST) (2.5 mmol/10mL)- Administer 0.025mmol/kg = 0.1mL/kg up to 15mL MAX, intravenously, one time only when requested by radiologist for Liver protocol Gadoteridol (PROHANCE) (0.1mmol/0.2mL)- Administer 0.1mmol/kg = 0.2mL/kg up to 30mL MAX, intravenously, one time only when approved by radiologist for routine MRI MRI IV CONTRAST PROTOCOLS FOR PEDIATRICS Radiologist to determine the need for contrast Term neonates and older: Gadobenate Dimeglumine (MULTIHANCE) (0.1mmol/0.2mL) -Administer 0.1mmol/kg = 0.2mL/kg up 20mL MAX, intravenously, one time only MRI ORAL CONTRAST PROTOCOLS Barium Sulfate 0.1% w/v, 0.1% w/w (VOLUMEN) for Enterography Administer VoLumen- 3 doses of 450 mL. 1st dose must be completed within 20 minutes. 2nd dose must be completed in the next 30 minutes. 3rd dose is given at scan time. Preferred route is oral. May use nasoenteric tube if needed. Use half dose if patient is <100lb NUCLEAR MEDICINE Procedure: Abscess Localization Medications for Procedure: In-111 Leukocytes *Syringes prepped with 2000 units of Heparin added to 10ml of 6% Hetastarch- Approximately 45ml's patient's blood added to the above for labeling Adult Dose: 300-550uCi Pediatric Dose Calculation: .0075mCi/kg Pediatric Minimum: 50uCi Pediatric Maximum: 500uCi Reference: #3 Procedure: Abscess Localization Medications for Procedure: Tc-99m HMPAO Leukocytes *Syringes prepped with 2000 units of Heparin added to 10ml of 6% Hetastarch- Approximately 45ml's patient's blood added to the above for labeling Adult Dose: 15-30mCi Pediatric Dose Calculation: .15mCi/kg Pediatric Minimum: 500uCi Pediatric Maximum: 10.5mCi Reference: #3 Procedure: Abscess Localization Medications for Procedure: Ga-67 Citrate Adult Dose: Ga-67 Citrate Pediatric Dose Calculation: .05mCi/kg Pediatric Minimum: .05mCi/kg Pediatric Maximum: .05mCi/kg Reference: .05mCi/kg Procedure: Arthrogram Medications for Procedure: Tc-99m Sulfur Colloid Adult Dose: 1.0mCi Procedure: Blood Pool ([place]/Hepatic Hemangioma/GI Bleed) Medications for Procedure: Tc-99m Ultratag *Syringe prepped with Heparin Lock Flush(concentration of 100 units/ml) volume of ~.1ml used so dose is ~10 units of Heparin for each procedure Adult Dose: 30mCi Pediatric Dose Calculation: .25mCi/kg Pediatric Minimum: 2.5mCi Pediatric Maximum: 17.5mCi Reference: #1 Comments: Used .25mCi/kg for all exams in this category per Nuclear Medicine physicians Procedure: Bone Scan Medications for Procedure: Tc-99m HDP Adult Dose: 20mCi Pediatric Dose Calculation: .25mCi/kg Pediatric Minimum: 1.0mCi Pediatric Maximum: 17.5mCi Reference: #2 Procedure: Bone Scan Medications for Procedure: Tc-99m MDP Adult Dose: 20mCi Pediatric Dose Calculation: .25mCi/kg Pediatric Minimum: 1.0mCi Pediatric Maximum: 17.5mCi Reference: #2 Procedure: Bone Marrow Imaging Medications for Procedure: Tc-99m Sulfur Colloid Adult Dose: 10mCi Pediatric Dose Calculation: .14mCi/kg Pediatric Minimum: 1.0mCi Pediatric Maximum: 10.0mCi Reference: #1 Procedure: Bowel Imaging (Meckel's) Medications for Procedure: Tc-99m Pertechnetate Adult Dose: 10mCi Pediatric Dose Calculation: .05mCi/kg Pediatric Minimum: 250uCi Pediatric Maximum: 3.5mCi Reference: #2 Procedure: Brain (Cerebral flow) Medications for Procedure: Tc-99m Pertechnetate Adult Dose: 20mCi Pediatric Dose Calculation: .28mCi/kg Pediatric Minimum: 4mCi Pediatric Maximum: 20.0mCi Reference: #1 Procedure: Brain (SPECT) Medications for Procedure: Tc-99m HMPAO(Ceretec) Adult Dose: 30mCi Pediatric Dose Calculation: .35mCi/kg Pediatric Minimum: 3mCi Pediatric Maximum: 25.0mCi Reference: #1 Procedure: Brain (DaTscan) Medications for Procedure: Tc-99m Ioflupane (DaTscan) *120 mg Potassium Iodide in 8 Oz. given PO one hour prior to dosing for procedure Adult Dose: 5mCi Procedure: Cisternogram Medications for Procedure: In-111 DTPA Adult Dose: 2mCi Pediatric Dose Calculation: .007mCi/kg Pediatric Minimum: 100uCi Pediatric Maximum: 500uCi Reference: #1 Procedure: Cystogram Medications for Procedure: Tc-99m Sulfur Colloid or MAA Adult Dose: 1.0mCi Procedure: Gastric Empty (Solid) Medications for Procedure: Tc-99m Sulfur Colloid (eggs/oatmeal/formula) Adult Dose: 1.0mCi Pediatric Dose Calculation: NMIS weight based calculation Pediatric Minimum: 250uCi Pediatric Maximum: 1.0mCi Reference: #5 Procedure: Gastro-esophageal Reflux Medications for Procedure: Tc-99m Sulfur Colloid Adult Dose: 1.0mCi Pediatric Dose Calculation: NMIS weight based calculation Pediatric Minimum: 250uCi Pediatric Maximum: 1.0mCi Reference: #5 Procedure: Hepatobiliary With or without EF Medications for Procedure: Tc-99m Mebrofenin *If using CCK (Sincalide) for EF- dose is .02mcg/kg Sincalide prepared using 5 ml Sterile water added to 5 mcg vial of Sincalide Adult Dose: 5.0mCi Pediatric Dose Calculation: .05mCi/kg Pediatric Minimum: 500uCi Pediatric Maximum: 3.5mCi Reference: #2 Procedure: Hepatobiliary With or without EF Medications for Procedure: Tc-99m Mebrofenin *Bilirubin >1.5mg Adult Dose: 8.0mCi Pediatric Dose Calculation: N/A Pediatric Minimum: 1.0mCi * Pediatric Maximum: 1.0mCi * Reference: #2 Procedure: Hepatic Artery Angiography (Sphere Mapping) Medications for Procedure: Tc-99m MAA Adult Dose: 4.0mCi Pediatric Dose Calculation: N/A Procedure: LeVeen Shunt Patency Medications for Procedure: Tc-99m Sulfur Colloid or MAA Adult Dose: 3.0mCi Procedure: Liver/Spleen Imaging Medications for Procedure: Tc-99m Sulfur Colloid Adult Dose: 5.0mCi Pediatric Dose Calculation: .05mCi/kg Pediatric Minimum: 200uCi Pediatric Maximum: 3.5mCi Reference: #1 Procedure: Lymphoscintigraphy (Breast) Medications for Procedure: Tc-99m Sulfur Colloid (filtered) Adult Dose: 250-550uCi Pediatric Dose Calculation: N/A Procedure: Lymphoscintigraphy (Breast) Medications for Procedure: Tc-99m Tilmanocept (Lymphoseek) Adult Dose: 250-550uCi Pediatric Dose Calculation: N/A Procedure: Lymphoscintigraphy (Melanoma) Medications for Procedure: Tc-99m Sulfur Colloid (filtered) Adult Dose: 500uCi Pediatric Dose Calculation: N/A Procedure: Lymphoscintigraphy (Melanoma) Medications for Procedure: Tc-99m Tilmanocept (Lymphoseek) Adult Dose: 500uCi Pediatric Dose Calculation: N/A Procedure: Lymphoscintigraphy (Melanoma/Breast - 24 hr Injection) Medications for Procedure: Tc-99m Sulfur Colloid (filtered) Adult Dose: 1.8mCi Pediatric Dose Calculation: N/A Procedure: Lymphoscintigraphy (Melanoma/Breast - 24 hr Injection) Medications for Procedure: Tc-99m Tilmanocept (Lymphoseek) Adult Dose: 1.8mCi Pediatric Dose Calculation: N/A Procedure: Lymphoscintigraphy (Lymphedema) Medications for Procedure: Tc-99m Tilmanocept (Lymphoseek) *Apply Topical Lidocaine 30 minutes prior to injections using 4% Anesthetic cream to both feet between webbing of 1st and 2nd toes. Tube is 5 grams of 4% lidocaine Adult Dose: 1.0mCi Pediatric Dose Calculation: N/A Comments: Split dose in (2) 1ml syringes ~500uCi/.1ml each Procedure: Metabolic Tumor Imaging Medications for Procedure: FDG-18 Adult Dose: 10-14mCi Pediatric Dose Calculation: .12mCi/kg Pediatric Minimum: 1.0mCi Pediatric Maximum: 8.4mCi Reference: #2 Procedure: Metabolic Tumor Imaging Medications for Procedure: F-18 Na Flouride Adult Dose: 10-15mCi Pediatric Dose Calculation: .06mCi/kg Pediatric Minimum: .5mCi Pediatric Maximum: 4.2mCi Reference: #2 Procedure: Metabolic Tumor Imaging Medications for Procedure: F-18 fluciclovine(Axumin) Adult Dose: 10.0mCi Pediatric Dose Calculation: N/A Procedure: Metabolic Brain Imaging Medications for Procedure: FDG-18 Adult Dose: 6mCi Pediatric Dose Calculation: .10mCi/kg Pediatric Minimum: 1.0mCi Pediatric Maximum: 5.0mCi Reference: #2 Procedure: Myocardial Perfusion Imaging (Same Day Protocol) Medications for Procedure: Tc-99m Tetrofosmin or Sestamibi *Pharmacologic Stress testing using 0.4mg Lexiscan (regadenoson) for all Myocardial Perfusion protocols Adult Dose: 10mCi (Rest) 30mCi(Stress) *8.0mCi(Rest) *24.0mCi(Stress) Pediatric Dose Calculation: .07mCi/kg, .28mCi/kg Pediatric Minimum: ---, --- Pediatric Maximum: 6.0mCi, 24.0mCi Reference: #1 Comments: *Only used during periods of Tc 99m shortages Procedure: Myocardial Perfusion Imaging (2 day protocol) Day 1(Rest) Day 2(Stress) Medications for Procedure: Tc-99m Tetrofosmin or Sestamibi Adult Dose: 20mCi(Rest), 30mCi(Stress) Pediatric Dose Calculation: .07mCi/kg, .28mCi/kg Pediatric Minimum: ---, --- Pediatric Maximum: 6.0mCi, 24.0mCi Reference: #1 Procedure: Myocardial Perfusion Imaging (Same Day Weight Based Dosing) Medications for Procedure: Tc-99m Tetrofosmin or Sestamibi Adult Dose: Up to 220lbs 10mCi (Rest) 30mCi (Stress) 220-285lbs 13mCi (Rest) 39mCi (Stress) 286-351lbs 16mCi (Rest) 48mCi (Stress) 352lbs and > 19mCi (Rest) 57mCi (Stress) Pediatric Dose Calculation: N/A Procedure: Myocardial Perfusion Imaging (Same Day Weight Based Dosing) Medications for Procedure: Tl-201 Thallous Chloride Adult Dose: 3.25mCi Pediatric Dose Calculation: .035mCi/kg Pediatric Maximum: 2.5mCi Reference: #1 Procedure: Myocardial Infarction Imaging Medications for Procedure: Tc-99m Pyrophosphate Adult Dose: 25.0mCi Pediatric Dose Calculation: N/A Procedure: Parathyroid Imaging Medications for Procedure: Tc-99m Sestamibi Adult Dose: 20.0mCi Pediatric Dose Calculation: .28mCi/kg Pediatric Minimum: 2.0mCi Pediatric Maximum: 20.0mCi Reference: #1 Procedure: Pulmonary Perfusion Imaging Medications for Procedure: Tc-99m MAA Adult Dose: 6.0mCi Pediatric Dose Calculation: .03mCi/kg Pediatric Minimum: 400uCi Pediatric Maximum: 2.1mCi Reference: #2 Procedure: Pulmonary Perfusion Imaging (Pumlonary HTN or Right to Left Shunts) Medications for Procedure: Tc-99m MAA Adult Dose: 1-2.5mCi in max of .2ml volume Pediatric Dose Calculation: N/A Procedure: Pulmonary Perfusion Imaging ( Patients - All Trimesters) Medications for Procedure: Tc-99m MAA Adult Dose: 3.0mCi Pediatric Dose Calculation: N/A Procedure: Pulmonary Ventilation Imaging Medications for Procedure: Xe-133 Gas Adult Dose: 10-30mCi Pediatric Dose Calculation: Adult dose Procedure: Pulmonary Ventilation Imaging Medications for Procedure: Tc-99m DTPA Adult Dose: 35mCi Pediatric Dose Calculation: Adult dose Procedure: Renal Imaging (Cortical) Medications for Procedure: Tc-99m DMSA Adult Dose: 5mCi Pediatric Dose Calculation: .05mCi/kg Pediatric Minimum: 500uCi Pediatric Maximum: 3.5mCi Reference: #2 Procedure: Renal Imaging (Function/ Lasix) Medications for Procedure: Tc-99m MAG 3 *(Lasix IV) 0.5 mg/kg in the adult patient using a minimum of 40 mg and a maximum of 80 mg. The dose for infants (0-1yr. old) is 1mg/kg. The dose for a child (1-16yr. old) is 0.5mg/kg, without a minimum Adult Dose: 10mCi Pediatric Dose Calculation: .15mCi/kg Pediatric Minimum: 500uCi Pediatric Maximum: 10.0mCi Reference: #2 Procedure: Thyroid Uptake/Imaging Medications for Procedure: I-123 Sodium Iodide capsules or solution Adult Dose: 200-500uCi Pediatric Dose Calculation: 5uCi/kg Pediatric Minimum: 50uCi Pediatric Maximum: 250uCi Reference: #4 Procedure: Thyroid Uptake/Imaging Medications for Procedure: I-131 Sodium Iodide Solution (uptake only) Adult Dose: 5-10uCi Pediatric Dose Calculation: N/A Procedure: Thyroid Uptake/Imaging Medications for Procedure: Tc-99m Pertechnetate (scan only) Adult Dose: 10mCi Pediatric Dose Calculation: .14mCi/kg Pediatric Minimum: 1.0mCi Pediatric Maximum: 10.0mCi Reference: #1 Procedure: Tumor Localization Imaging Medications for Procedure: Ga-67 Citrate Adult Dose: 10mCi Pediatric Dose Calculation: .14mCi/kg Pediatric Maximum: 10.0mCi Reference: #1 Procedure: Tumor Localization Imaging Medications for Procedure: In-111 Capromab Pendetide(Prostascint) Adult Dose: 6.0mCi Pediatric Dose Calculation: N/A Procedure: Tumor Localization Imaging (MIBG Scans) Medications for Procedure: I-123 Metaiodobenzylguanidine (MIBG) *120 mg Potassium Iodide in 8 Oz. given PO one hour prior to dosing for procedure Adult Dose: 10mCi Pediatric Dose Calculation: .14mCi/kg Pediatric Minimum: 1.0mCi Pediatric Maximum: 10.0mCi Reference: #2 Procedure: Tumor Localization Imaging (MIBG Scans) Medications for Procedure: I-131Metaiodobenzylguanidine (MIBG) *120 mg Potassium Iodide in 8 Oz. given PO one hour prior to dosing for procedure Adult Dose: 1.0mCi Pediatric Dose Calculation: N/A Procedure: Tumor Localization Imaging Medications for Procedure: In-111 Pentetreotide (Octreoscan) Adult Dose: 6.0mCi Pediatric Dose Calculation: .08mCi/kg Pediatric Maximum: 6.0mCi Reference: #1 Procedure: Tumor Localization Imaging Medications for Procedure: I-131 Sodium Iodide Adult Dose: 5.0mCi Pediatric Dose Calculation: N/A Procedure: Tumor Localization Imaging Medications for Procedure: I-123 Sodium Iodide Adult Dose: 1.5-2.0mCi Pediatric Dose Calculation: .028mCi/kg Reference: No reference information Procedure: Venogram (Upper/Lower Extremities) Medications for Procedure: Tc-99m Ultratag *Syringe prepped with Heparin Lock Flush(concentration of 100 units/ml) volume of ~.1ml used so dose is ~10 units of Heparin for each procedure Adult Dose: 30mCi Pediatric Dose Calculation: N/A Procedure: Ventricular Shunt Imaging Medications for Procedure: Tc-99m DTPA Adult Dose: 1.0mCi Pediatric Dose Calculation: N/A References for Pediatric Administration: Nuclear Medicine Procedure Manual, Division of Nuclear Medicine, [facility]; gamma.[email or web address].html [place] Consensus Guidelines for Administered Radiopharmaceutical Activities in Children andAdolescents; http://interactive.snm.org/docs/Pediatric dose consensus guidelines Final 2010.pdf ACR-SNM-SPR Practice guideline for the performance of Scintigraphy for inflammation and infection; www/acr.org.guidelines. Revised 2009 9.1 Rocio SHANNON, Ed WC, Carmita RD. Nuclear Medicine Diagnosis and Therapy. [employer]1996. Chapter 37, page 930, Table 1. Pediatric weight/dose database file NMIS system: Pediatric Dose = Adult dose (mCi) x Dose Factor Range of Weight (lbs) Dose Factor (%) 0.00-5.00 10 5.01-10.00 10 10.01-15.00 16 15.01-20.00 21 20.01-25.00 25 25.01-30.00 30 30.01-40.00 34 40.01-50.00 41 50.01-60.00 48 60.01-70.00 54 70.01-80.00 61 80.01-90.00 67 90.01-100.00 72 100.01-110.00 78 110.01-120.00 83 120.01-130.00 88 130.01-140.00 94 140.01-142.00 99 142.01-150.00 100 Attention: Any exam, radiopharmaceutical or dosage not included on this list requires physician approval and a written prescription Approved by: Medical Executive Committee and Imaging Services INE SIGN WRITER * Savannah Garcia MD - 09/15/2024 1:00 PM CST CRITICAL CARE MEDICINE DAILY PROGRESS NOTE PCP: Anu Thompson DO Hx: 49 y.o. female admitted 09/13/2024 with hypotension and tachycardia. Recently hospitalized at [place] between 08/22/2024 through 08/25/2024. Seen by her oncologist today and noted to be hypotensive in office and was transferred to hospital for evaluation. She is homeless, has been staying witha friend. 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 reports in prior documentation of poor historian. She was evaluated in ED and noted to be hypotensive after IVF bolus and initiated on levophed. She was transferred to the ICU under [facility] management. Pertinent PMHx: Past Medical History: Diagnosis Date Bipolar disorder (CMS/HCC) 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 Migraine Schizophrenia (CMS/HCC) Current Care Plan Summary: This is a 49-year-old female with a past medical history of laryngeal squamous cell carcinoma, who is currently being managed for septic shock requiring pressors, also has a history of trach/PEG and carcinoma as above. Hemodynamics have improved. Was weaned off pressor support yesterday and remains off. Will restart CAPTAIN'S ASSISTANT medications as tolerated. Resume CAPTAIN'S ASSISTANT Risperdal. RSV positive, supportive care. Concern for septic shock on admission, no growth from culture data thus far. She does have poor dentition and this may have also been a possible source. De-escalate from broad-spectrum vancomycin/cefepime to short course of ceftriaxone. Reevaluate if necessary. Pneumonia was also considered as possible source, CT chest on admission mentioned possible scattered consolidations, hence speech therapy has been consulted to evaluate for possible silent aspiration. MBS pending for today. Renal function improving. Oncology following with ongoing workup. With clinical status now improved, I have contacted Dr. Jamil office (oral surgery) and relayed that the patient is now stable for surgical intervention. History of laryngeal cancer as above, homeless and unable to obtain care at this time. Case management consulted. May need placement. ICU timeline: 09/13: Admitted to ICU, on pressors Major active problem list: Principal Problem: Severe sepsis with septic shock (CMS/HCC) Active Problems: Bipolar disorder, unspecified (CMS/HCC) Essential hypertension COPD (chronic obstructive pulmonary disease) (CMS/HCC) CKD (chronic kidney disease) Laryngeal squamous cell carcinoma (CMS/HCC) Hx of laryngeal cancer Acute renal failure superimposed on chronic kidney disease Hypovolemic shock (CMS/HCC) RSV infection Subjective: 24 hour events -as above Objective: Current vital signs Blood pressure 131/87, pulse 67, temperature (!) 96.5 ??F (35.8 ??C), temperature source Axillary, resp. rate 14, height 5' 5 (1.651 m), weight 85 kg (187 lb 6.3 oz), SpO2 96%. 24 hour BP and temperature range BP: (94-145)/(54-94) Temp (24hrs), Av.2 ??F (36.2 ??C), Min:96.5 ??F (35.8 ??C), Max:97.7 ??F (36.5 ??C) Input/Output 09/13 1900 - 09/15 0659 In: 4900.2 [P.O.:1030; I.V.:3780.2] Out: 2975 [Urine:2975] PHYSICAL EXAM: Gen: Middle-age female Neuro: Alert, conversational, following commands, nonfocal HEENT: poor dentition, trach in place Cardiac: NSR Pulm: No distress, trach noted Abdomen: rounded, nondistended, nontender, PEG in place Skin: pale, warm, dry Extremities: no edema Data Review: BMP: Recent Labs 09/13/24 1648 09/14/24 0711 09/15/24 0348 GLUCOSE 94 153* 90 BUN 31* 22* 24* CREAT 1.65* 1.34* 1.24* NA 139 143 138 K 4.5 4.5 4.6 CL 105 114* 108* CO2 23 23 21* ANIONGAP 11 6* 9 estimated creatinine clearance is 57.8 mL/min (A) (by C-G formula based on SCr of 1.24 mg/dL (H)). LFTs: Recent Labs 09/13/24 1337 09/13/24 1648 ALKPHOS 73 82 ALT 23 27 AST 31 25 BILITOTAL 0.3 0.2 ALBUMIN 3.4* 3.6 CBC: Recent Labs 09/13/24 1648 09/14/24 0711 09/15/24 0348 WBC 7.2 6.9 4.2* HGB 13.8 11.7* 11.9* HCT 42.6 37.7 37.6 PLT 315 245 188 MCV 94.5 96.4 95.2 Coagulation: No results for input(s): PT , INR , APTT in the last 72 hours. ABG: Lab Results Component Value Date/Time LACTATE 0.6 09/14/2024 12:04 AM Lactic acid: Lab Results Component Value Date/Time LACTATE 0.6 09/14/2024 12:04 AM LACTATE 1.3 09/13/2024 04:48 PM Radiology: Pertinent imaging/reports reviewed Assessment and Plan Neuro/Psych: History of depression-resume home Paxil History of bipolar -CAPTAIN'S ASSISTANT Risperdal resumed Cardiovascular/Fluids: Hx CAD S/p CARMELO. On aspirin/Plavix/statin, start CAPTAIN'S ASSISTANT beta-yi tomorrow History of hypertension-resume as tolerated Severe sepsis with shock-improved, off pressors History of hyperlipidemia-statin Pulmonary: S/p trach, PMV in place COPD-Home inhalers Titrate oxygen as needed GI/NUT: General Diet Speech therapy consulted, MBS pending S/p PEG SUP, no Renal/LYTES/Acid-Base: History CKD Trend electrolytes Monitor UOP Infectious Disease: No growth from culture data De-escalated to ceftriaxone x 3-day course Dentition may have been source, plan for surgical removal with oral surgery Will also have speech therapy evaluate swallowing for possible aspiration Hem/Onc/Coag: SCC laryngeal cancer DVTp, hep subq Endocrine: Trend BS- no hx DM Musculoskeletal/Skin: As per routine nursing and unit protocol Family communication: None available during my rounds, discussed with patient directly EM3 INE SIGN WRITER INE SIGN WRITER * Camila Navarrete, SHIPPING RECEIVING CLERK - 09/14/2024 6:46 PM CST Speech Pathology: Ventura is currently receiving a regular diet with thin liquids. She reported waxing and waning dysphagia, stating, Sometimes my throat doesn't hurt and I swallow fine. Other times, it hurts a lot and I can hardly swallow much at all. Previous MBS completed at [facility] 05/2024, but the report is not currently available. Ventura indicated that the study showed that she wasn't aspirating and that she was able to eat and drink without consistency modifications. Per d/w the treating MD, various medical results have been concerning for possible aspiration events. MD indicated that repeat instrumentation is desired prior to future cancer treatment/intervention. Will bypass a clinical evaluation of swallowing and proceed with a MBS 09/15/2024 in order to define swallow physiology, determine aspiration risk and guide dysphagia management. In addition, Ventura presents with poorly represented dentition. Dental hygiene aware. ~Camila Navarrete M.S., CCC-SHIPPING RECEIVING CLERK Acute Speech Therapy Charge Zone Phone #[phone] Acute Speech Therapy Charge Pager #[phone] INE SIGN WRITER * Rajesh Delaney PHARMACIST - 09/14/2024 6:37 PM CST Pharmacokinetic Consult Sign-Off Note Noted that vancomycin has been discontinued on this patient. Per protocol, pharmacy will discontinue the consult to pharmacy and will sign off vancomycin monitoring. Please notify pharmacy if we can be of further assistance. Thank you for involving us in the care of this patient. Rajesh Delaney PHARMACIST Cosigned by Savannah Garcia MD at 09/15/2024 7:40 AM MACHINE SIGN WRITER INE SIGN WRITER INE SIGN WRITER * Gem Julio - 09/14/2024 6:14 PM CST Reason for Visit: Best Practice Advisory Patient spiritual issues identified summary of patient???s most significant issue(s): Ventura is currently receiving care in the ICU. Sheappeared hopeful and grateful. Family: Ventura has strong family support. Ventura's spouse, Saleem, was present. He spoke about the challenges of having transportation to he hospital. Brittanie/values: Ventura requested prayer. Needs/hopes resources: Ventura and Saleem stated no further Spiritual Care needs at this time. Spiritual interventions Ministry of presence; spiritual and emotional support; reflective listening; prayer; Introduced self and explosive ordnance disposal technician services explaining the availability of chaplains 15/03. Utilized presence and active listening to explore feelings, stressors, perceptions, questions/concerns, and coping patterns. Provided a safe environment for culturally and spiritually congruent self-expression CHASER HELPER???S ASSESSMENT OF PATIENT???S LEVEL OF DISTRESS: Moderate Outcomes of Care Ventura expressed gratitude for the visit and prayer. Goals of Spiritual Care Brake Repairer Bus Plan: Spiritual Care Services remain available for referral PRN. Recommendations for Healthcare Team As spiritual needs/distress arise, please contact Spiritual Care Services. We will follow up as needed. Thank you for this referral. Brake Repairer Buspilar Julio Spiritual Care Team [phone] INE SIGN WRITER * Simon Rosales, RT - 09/14/2024 5:04 PM CST IMAGING SERVICES- CONTRAST, MEDICATION and FLUSH PROTOCOL [facility] Enter the protocol in the patient's electronic health record using smartZoomaalrase: .imagingcontrastprotocol Communication Orders: Initiate a peripheral IV, if not already in place, and discontinue IV prior to discharge Enter order if needed: Insert Peripheral IV Medication Orders: Lidocaine 4% (L.M.X.4)- applied topically ONE TIME prior to IV catheter insertion PRN (apply 15 minutes prior to procedure) Sodium chloride 0.9% (normal saline) flush- 10 mLs PRN for saline lock or medication administration Oxygen- For respiratory distress, initiate O2 to maintain saturation greater than 90% CAT SCAN CT IV CONTRAST PROTOCOLS FOR ADULTS Iopamidol Injection 61% (ISOVUE-300)- Double bolus with MD approval Routine exams dosed by weight: <150lbs- 75mL 151lbs to 220lbs- 100mL >220lbs- 125mL CT Angiography: 100mL Runoff and Triphasic Liver Protocols: 150mL Iopamidol Injection 76% (ISOVUE-370) Cardiac- 110mL TAVR- 160mL CT IV CONTRAST PROTOCOLS FOR PEDIATRICS Iopamidol Injection 61% (ISOVUE-300) - Routine exams: 1mL per pound and Pediatric- Head / Face: 1mL per pound up to 50 lbs Pediatric- Routine exams: 1mL per pound up to 75 lbs 75-150 lbs: 75mL 150-220 lbs: 100mL >220 lbs: 125mL CT ORAL CONTRAST PROTOCOLS FOR ADULTS Iohexol 300mg/mL (OMNIPAQUE) for CT scan unless patient has a documented allergy to contrast * 15ml added to 16 oz of clear liquid of patient's choice. Preferred route is oral. May use nasoenteric tube if needed. Administer 16 oz the diluted Omnipaque 300, orally 1st dose 30-60 minutes prior to scan and 2nd dose just before scan. * Barium Sulfate 2% w/v (READI-CAT2) for CT scan when patient has documented contrast allergy Administer 2 doses of 450mL of barium sulfate. First dose 30-60 min prior to exam and 2nd dose justbefore exam. Preferred route is oral. May use nasoenteric tube if needed. Barium Sulfate 0.1% w/v, 0.1% w/w (VOLUMEN) for Enterography and GI Bleed protocols Administer VoLumen- 3 doses of 450 mL. 1st dose must be completed within 20 minutes. 2nd dose must be completed in the next 30 minutes. 3rd dose is given at scan time. Preferred route is oral. May use nasoenteric tube if needed. CT ORAL CONTRAST PROTOCOLS FOR PEDIATRICS Preferred route is oral, may use nasoenteric tube if needed. to 3 months- Barium Sulfate 2%w/v (READI-CAT2) thinned with water to a consistency for typical bottle feeding 3 Months to 3 years- Iohexol 300mg/mL (OMNIPAQUE) 5mL diluted with 16oz clear fluid. 1 dose: 30min prior to exam 4 years to 10 years- Iohexol 300mg/mL (OMNIPAQUE) 8mL diluted with 16oz clear fluid. 1 dose: 30min prior to exam 10 years and up- Iohexol 300mg/mL (OMNIPAQUE) 15mL diluted with 16oz clear fluid. 2 doses: first dose 30min prior to exam and 2nd dose just before scan if tolerated CT CYSTOGRAM Iopamidol 61% Injection ([id number]): 25mL Dilute into 500mL bag of sterile NS administer up to 300mL retrograde via urinary catheter DIAGNOSTIC RADIOLOGY Enter the protocol in the patient's electronic health record using smartphrase: ADULTS PROCEDURE DOSAGE ARTHROGRAMS Plain ISOVUE 300 12mL MRI-(Ankle,Elbow,Hip,Wrist,Knee,Shoulder) ISOVUE 300 5mL / Prohance .2ml CT-(Ankle,Elbow,Hip,Wrist,Knee,Shoulder) ISOVUE 300 20mL BARIUM ENEMAS BARIUM ENEMA AIR CONTRAST LIQUID POLIBAR 1900ml BARIUM ENEMA/ GASTROGRAFIN B.E. LIQUID POLIBAR 800mL + 3200mL of water or GASTROGRAFIN 960mL + 3040mL of water. CYSTOGRAM CYSTOGRAFIN 1500mL ESOPHAGUS BARIUM SWALLOW E-Z-HD Barium Sulfate for Suspension 340g. and/or E-Z-PAQUE Barium Sulfate Oral Suspension 355mL OMNIPAQUE 350 50ml or GASTROGRAFIN 120mL Barium tablet 700mg (if indicated) MODIFIED BARIUM SWALLOW Barium tablet 700mg, Varibar paste 90g/Varibar thin 74g/ Varibar honey 125mL/ Varibar [place] 120mL HYSTEROSALPINGOGRAM ISOVUE 300 30ml IVP'S ISOVUE 300 100ml MYELOGRAMS: CERVICAL ISOVUE-M 300 10mL THORACIC ISOVUE-M 300 10mL LUMBAR ISOVUE-M 200 12mL SMALL BOWEL SERIES E-Z-PAQUE Barium Sulfate for Oral Suspension 710mL or GASTROGRAFIN 240mL LOOPOGRAM ISOVUE 300 60mL NEPHROSTOGRAM ISOVUE 300 60mL RETROGRADE URETHROGRAM Cystografin 300mL UPPER GI Upper GI E-Z-HD Barium Sulfate for Suspension: 340g. and/or E-Z-PAQUE Barium Sulfate for Oral Suspension: 355mL Upper GI Air Contrast Same as above EZ Gas crystals (if indicated) URETHROCYSTOGRAM VOIDING Cystografin 1500mL PORT CONTRAST INJECTION WITH Isovue 300 20mL FLUORO PEDIATRICS PROCEDURE CONTRAST DOSAGE Upper GI Under Age 5 Liquid E-Z-Paque (Thin Barium) 240mL Omnipaque 180 (hypaque) or 350 50mL Upper GI Above Age 5 EZ HD (Thick Barium) 340g Liquid E-Z Paque (Thin Barium) 240mL EZ Gas Packet 4g Omnipaque 350 (hypaque) 50mL Small Bowel Series Under Age 5 Liquid E-Z Paque (Thin Barium) 240mL Omnipaque 180 (hypaque) 50mL Small Bowel Series Above Age 5 Liquid E-Z Paque (Thin Barium) 480mL Omnipaque 350 50mL Barium Swallow Under Age 5 Liquid E-Z Paque (Thin Barium) 240mL Omnipaque 180 (hypaque) 50mL Barium Swallow Above Age 5 EZ HD (Thick Barium) 340g Liquid E-Z Paque (Thin Barium) 240mL Omnipaque 350 50mL Modified Barium Swallow >1 Varibar Izyz84l: 1 to 2 Varibar Thin74 Paste 90g (Video Swallow with Speech) <2 Varibar Mwmg60m, [id number], Honey 125mL, Paste 90g IVP Isovue 300 100mL/1mL per lb. Urethrocystogram Voiding Cystografin 500mL Barium Enema Liquid Polibar 400mL+1600 water 2000mL Barium Enema with Hypaque Gastrografin 1 bottle mixed 5 bottle water 720mL Over 5 Gastrografin 480mL+1520 water 2000mL Barium Enema Air Contrast Liquid Polibar 1900mL INTERVENTIONAL RADIOLOGY PROCEDURE DOSAGE IR ARTERIOGRAM VISIPAQUE 320 OR OMNIPAQUE 300 MAX DOSAGE 400mL IR BILIARY ISOVUE 200 MAX DOSAGE 300 mL IR FISTULOGRAM ISOVUE 200 OR VISIPAQUE 320 MAX DOSAGE 400mL IR IVC FILTER ISOVUE 200 OR VISIPAQUE MAX DOSAGE 400 mL IR TUBE PLACEMENT ISOVUE 200 MAX DOSAGE 300 mL IR VENOUS ABDOMINAL VISIPAQUE 320 OR ISOVUE 200 MAX DOSAGE 400 mL IR VENOUS ACCESS ISOVUE 200 MAX DOSAGE 300 mL IR VENOUS UPPER AND LOWER EXTREMITY VISIPAQUE 320 OR ISOVUE 200 MAX DOSAGE 400 mL IR SPINAL INTERVENTION ISOVUE 200 MAX DOSAGE 100mL (FOR BALLOON ONLY) MRI MRI IV CONTRAST PROTOCOLS FOR ADULTS Gadobenate Dimeglumine (MULTIHANCE) (0.1mmol/0.2mL)- Administer 0.1mmol/kg = 0.2mL/kg up to 30mL MAX, intravenously, one time only for routine MRI Gadoxetate (EOVIST) (2.5 mmol/10mL)- Administer 0.025mmol/kg = 0.1mL/kg up to 15mL MAX, intravenously, one time only when requested by radiologist for Liver protocol Gadoteridol (PROHANCE) (0.1mmol/0.2mL)- Administer 0.1mmol/kg = 0.2mL/kg up to 30mL MAX, intravenously, one time only when approved by radiologist for routine MRI MRI IV CONTRAST PROTOCOLS FOR PEDIATRICS Radiologist to determine the need for contrast Term neonates and older: Gadobenate Dimeglumine (MULTIHANCE) (0.1mmol/0.2mL) -Administer 0.1mmol/kg = 0.2mL/kg up 20mL MAX, intravenously, one time only MRI ORAL CONTRAST PROTOCOLS Barium Sulfate 0.1% w/v, 0.1% w/w (VOLUMEN) for Enterography Administer VoLumen- 3 doses of 450 mL. 1st dose must be completed within 20 minutes. 2nd dose must be completed in the next 30 minutes. 3rd dose is given at scan time. Preferred route is oral. May use nasoenteric tube if needed. Use half dose if patient is <100lb NUCLEAR MEDICINE Procedure: Abscess Localization Medications for Procedure: In-111 Leukocytes *Syringes prepped with 2000 units of Heparin added to 10ml of 6% Hetastarch- Approximately 45ml's patient's blood added to the above for labeling Adult Dose: 300-550uCi Pediatric Dose Calculation: .0075mCi/kg Pediatric Minimum: 50uCi Pediatric Maximum: 500uCi Reference: #3 Procedure: Abscess Localization Medications for Procedure: Tc-99m HMPAO Leukocytes *Syringes prepped with 2000 units of Heparin added to 10ml of 6% Hetastarch- Approximately 45ml's patient's blood added to the above for labeling Adult Dose: 15-30mCi Pediatric Dose Calculation: .15mCi/kg Pediatric Minimum: 500uCi Pediatric Maximum: 10.5mCi Reference: #3 Procedure: Abscess Localization Medications for Procedure: Ga-67 Citrate Adult Dose: Ga-67 Citrate Pediatric Dose Calculation: .05mCi/kg Pediatric Minimum: .05mCi/kg Pediatric Maximum: .05mCi/kg Reference: .05mCi/kg Procedure: Arthrogram Medications for Procedure: Tc-99m Sulfur Colloid Adult Dose: 1.0mCi Procedure: Blood Pool (Muga/Hepatic Hemangioma/GI Bleed) Medications for Procedure: Tc-99m Ultratag *Syringe prepped with Heparin Lock Flush(concentration of 100 units/ml) volume of ~.1ml used so dose is ~10 units of Heparin for each procedure Adult Dose: 30mCi Pediatric Dose Calculation: .25mCi/kg Pediatric Minimum: 2.5mCi Pediatric Maximum: 17.5mCi Reference: #1 Comments: Used .25mCi/kg for all exams in this category per Nuclear Medicine physicians Procedure: Bone Scan Medications for Procedure: Tc-99m HDP Adult Dose: 20mCi Pediatric Dose Calculation: .25mCi/kg Pediatric Minimum: 1.0mCi Pediatric Maximum: 17.5mCi Reference: #2 Procedure: Bone Scan Medications for Procedure: Tc-99m MDP Adult Dose: 20mCi Pediatric Dose Calculation: .25mCi/kg Pediatric Minimum: 1.0mCi Pediatric Maximum: 17.5mCi Reference: #2 Procedure: Bone Marrow Imaging Medications for Procedure: Tc-99m Sulfur Colloid Adult Dose: 10mCi Pediatric Dose Calculation: .14mCi/kg Pediatric Minimum: 1.0mCi Pediatric Maximum: 10.0mCi Reference: #1 Procedure: Bowel Imaging (Meckel's) Medications for Procedure: Tc-99m Pertechnetate Adult Dose: 10mCi Pediatric Dose Calculation: .05mCi/kg Pediatric Minimum: 250uCi Pediatric Maximum: 3.5mCi Reference: #2 Procedure: Brain (Cerebral flow) Medications for Procedure: Tc-99m Pertechnetate Adult Dose: 20mCi Pediatric Dose Calculation: .28mCi/kg Pediatric Minimum: 4mCi Pediatric Maximum: 20.0mCi Reference: #1 Procedure: Brain (SPECT) Medications for Procedure: Tc-99m HMPAO(Ceretec) Adult Dose: 30mCi Pediatric Dose Calculation: .35mCi/kg Pediatric Minimum: 3mCi Pediatric Maximum: 25.0mCi Reference: #1 Procedure: Brain (DaTscan) Medications for Procedure: Tc-99m Ioflupane (DaTscan) *120 mg Potassium Iodide in 8 Oz. given PO one hour prior to dosing for procedure Adult Dose: 5mCi Procedure: Cisternogram Medications for Procedure: In-111 DTPA Adult Dose: 2mCi Pediatric Dose Calculation: .007mCi/kg Pediatric Minimum: 100uCi Pediatric Maximum: 500uCi Reference: #1 Procedure: Cystogram Medications for Procedure: Tc-99m Sulfur Colloid or MAA Adult Dose: 1.0mCi Procedure: Gastric Empty (Solid) Medications for Procedure: Tc-99m Sulfur Colloid (eggs/oatmeal/formula) Adult Dose: 1.0mCi Pediatric Dose Calculation: NMIS weight based calculation Pediatric Minimum: 250uCi Pediatric Maximum: 1.0mCi Reference: #5 Procedure: Gastro-esophageal Reflux Medications for Procedure: Tc-99m Sulfur Colloid Adult Dose: 1.0mCi Pediatric Dose Calculation: NMIS weight based calculation Pediatric Minimum: 250uCi Pediatric Maximum: 1.0mCi Reference: #5 Procedure: Hepatobiliary With or without EF Medications for Procedure: Tc-99m Mebrofenin *If using CCK (Sincalide) for EF- dose is .02mcg/kg Sincalide prepared using 5 ml Sterile water added to 5 mcg vial of Sincalide Adult Dose: 5.0mCi Pediatric Dose Calculation: .05mCi/kg Pediatric Minimum: 500uCi Pediatric Maximum: 3.5mCi Reference: #2 Procedure: Hepatobiliary With or without EF Medications for Procedure: Tc-99m Mebrofenin *Bilirubin >1.5mg Adult Dose: 8.0mCi Pediatric Dose Calculation: N/A Pediatric Minimum: 1.0mCi * Pediatric Maximum: 1.0mCi * Reference: #2 Procedure: Hepatic Artery Angiography (Sphere Mapping) Medications for Procedure: Tc-99m MAA Adult Dose: 4.0mCi Pediatric Dose Calculation: N/A Procedure: LeVeen Shunt Patency Medications for Procedure: Tc-99m Sulfur Colloid or MAA Adult Dose: 3.0mCi Procedure: Liver/Spleen Imaging Medications for Procedure: Tc-99m Sulfur Colloid Adult Dose: 5.0mCi Pediatric Dose Calculation: .05mCi/kg Pediatric Minimum: 200uCi Pediatric Maximum: 3.5mCi Reference: #1 Procedure: Lymphoscintigraphy (Breast) Medications for Procedure: Tc-99m Sulfur Colloid (filtered) Adult Dose: 250-550uCi Pediatric Dose Calculation: N/A Procedure: Lymphoscintigraphy (Breast) Medications for Procedure: Tc-99m Tilmanocept (Lymphoseek) Adult Dose: 250-550uCi Pediatric Dose Calculation: N/A Procedure: Lymphoscintigraphy (Melanoma) Medications for Procedure: Tc-99m Sulfur Colloid (filtered) Adult Dose: 500uCi Pediatric Dose Calculation: N/A Procedure: Lymphoscintigraphy (Melanoma) Medications for Procedure: Tc-99m Tilmanocept (Lymphoseek) Adult Dose: 500uCi Pediatric Dose Calculation: N/A Procedure: Lymphoscintigraphy (Melanoma/Breast - 24 hr Injection) Medications for Procedure: Tc-99m Sulfur Colloid (filtered) Adult Dose: 1.8mCi Pediatric Dose Calculation: N/A Procedure: Lymphoscintigraphy (Melanoma/Breast - 24 hr Injection) Medications for Procedure: Tc-99m Tilmanocept (Lymphoseek) Adult Dose: 1.8mCi Pediatric Dose Calculation: N/A Procedure: Lymphoscintigraphy (Lymphedema) Medications for Procedure: Tc-99m Tilmanocept (Lymphoseek) *Apply Topical Lidocaine 30 minutes prior to injections using 4% Anesthetic cream to both feet between webbing of 1st and 2nd toes. Tube is 5 grams of 4% lidocaine Adult Dose: 1.0mCi Pediatric Dose Calculation: N/A Comments: Split dose in (2) 1ml syringes ~500uCi/.1ml each Procedure: Metabolic Tumor Imaging Medications for Procedure: FDG-18 Adult Dose: 10-14mCi Pediatric Dose Calculation: .12mCi/kg Pediatric Minimum: 1.0mCi Pediatric Maximum: 8.4mCi Reference: #2 Procedure: Metabolic Tumor Imaging Medications for Procedure: F-18 Na Flouride Adult Dose: 10-15mCi Pediatric Dose Calculation: .06mCi/kg Pediatric Minimum: .5mCi Pediatric Maximum: 4.2mCi Reference: #2 Procedure: Metabolic Tumor Imaging Medications for Procedure: F-18 fluciclovine(Axumin) Adult Dose: 10.0mCi Pediatric Dose Calculation: N/A Procedure: Metabolic Brain Imaging Medications for Procedure: FDG-18 Adult Dose: 6mCi Pediatric Dose Calculation: .10mCi/kg Pediatric Minimum: 1.0mCi Pediatric Maximum: 5.0mCi Reference: #2 Procedure: Myocardial Perfusion Imaging (Same Day Protocol) Medications for Procedure: Tc-99m Tetrofosmin or Sestamibi *Pharmacologic Stress testing using 0.4mg Lexiscan (regadenoson) for all Myocardial Perfusion protocols Adult Dose: 10mCi (Rest) 30mCi(Stress) *8.0mCi(Rest) *24.0mCi(Stress) Pediatric Dose Calculation: .07mCi/kg, .28mCi/kg Pediatric Minimum: ---, --- Pediatric Maximum: 6.0mCi, 24.0mCi Reference: #1 Comments: *Only used during periods of Tc 99m shortages Procedure: Myocardial Perfusion Imaging (2 day protocol) Day 1(Rest) Day 2(Stress) Medications for Procedure: Tc-99m Tetrofosmin or Sestamibi Adult Dose: 20mCi(Rest), 30mCi(Stress) Pediatric Dose Calculation: .07mCi/kg, .28mCi/kg Pediatric Minimum: ---, --- Pediatric Maximum: 6.0mCi, 24.0mCi Reference: #1 Procedure: Myocardial Perfusion Imaging (Same Day Weight Based Dosing) Medications for Procedure: Tc-99m Tetrofosmin or Sestamibi Adult Dose: Up to 220lbs 10mCi (Rest) 30mCi (Stress) 220-285lbs 13mCi (Rest) 39mCi (Stress) 286-351lbs 16mCi (Rest) 48mCi (Stress) 352lbs and > 19mCi (Rest) 57mCi (Stress) Pediatric Dose Calculation: N/A Procedure: Myocardial Perfusion Imaging (Same Day Weight Based Dosing) Medications for Procedure: Tl-201 Thallous Chloride Adult Dose: 3.25mCi Pediatric Dose Calculation: .035mCi/kg Pediatric Maximum: 2.5mCi Reference: #1 Procedure: Myocardial Infarction Imaging Medications for Procedure: Tc-99m Pyrophosphate Adult Dose: 25.0mCi Pediatric Dose Calculation: N/A Procedure: Parathyroid Imaging Medications for Procedure: Tc-99m Sestamibi Adult Dose: 20.0mCi Pediatric Dose Calculation: .28mCi/kg Pediatric Minimum: 2.0mCi Pediatric Maximum: 20.0mCi Reference: #1 Procedure: Pulmonary Perfusion Imaging Medications for Procedure: Tc-99m MAA Adult Dose: 6.0mCi Pediatric Dose Calculation: .03mCi/kg Pediatric Minimum: 400uCi Pediatric Maximum: 2.1mCi Reference: #2 Procedure: Pulmonary Perfusion Imaging (Pumlonary HTN or Right to Left Shunts) Medications for Procedure: Tc-99m MAA Adult Dose: 1-2.5mCi in max of .2ml volume Pediatric Dose Calculation: N/A Procedure: Pulmonary Perfusion Imaging ( Patients - All Trimesters) Medications for Procedure: Tc-99m MAA Adult Dose: 3.0mCi Pediatric Dose Calculation: N/A Procedure: Pulmonary Ventilation Imaging Medications for Procedure: Xe-133 Gas Adult Dose: 10-30mCi Pediatric Dose Calculation: Adult dose Procedure: Pulmonary Ventilation Imaging Medications for Procedure: Tc-99m DTPA Adult Dose: 35mCi Pediatric Dose Calculation: Adult dose Procedure: Renal Imaging (Cortical) Medications for Procedure: Tc-99m DMSA Adult Dose: 5mCi Pediatric Dose Calculation: .05mCi/kg Pediatric Minimum: 500uCi Pediatric Maximum: 3.5mCi Reference: #2 Procedure: Renal Imaging (Function/ Lasix) Medications for Procedure: Tc-99m MAG 3 *(Lasix IV) 0.5 mg/kg in the adult patient using a minimum of 40 mg and a maximum of 80 mg. The dose for infants (0-1yr. old) is 1mg/kg. The dose for a child (1-16yr. old) is 0.5mg/kg, without a minimum Adult Dose: 10mCi Pediatric Dose Calculation: .15mCi/kg Pediatric Minimum: 500uCi Pediatric Maximum: 10.0mCi Reference: #2 Procedure: Thyroid Uptake/Imaging Medications for Procedure: I-123 Sodium Iodide capsules or solution Adult Dose: 200-500uCi Pediatric Dose Calculation: 5uCi/kg Pediatric Minimum: 50uCi Pediatric Maximum: 250uCi Reference: #4 Procedure: Thyroid Uptake/Imaging Medications for Procedure: I-131 Sodium Iodide Solution (uptake only) Adult Dose: 5-10uCi Pediatric Dose Calculation: N/A Procedure: Thyroid Uptake/Imaging Medications for Procedure: Tc-99m Pertechnetate (scan only) Adult Dose: 10mCi Pediatric Dose Calculation: .14mCi/kg Pediatric Minimum: 1.0mCi Pediatric Maximum: 10.0mCi Reference: #1 Procedure: Tumor Localization Imaging Medications for Procedure: Ga-67 Citrate Adult Dose: 10mCi Pediatric Dose Calculation: .14mCi/kg Pediatric Maximum: 10.0mCi Reference: #1 Procedure: Tumor Localization Imaging Medications for Procedure: In-111 Capromab Pendetide(Prostascint) Adult Dose: 6.0mCi Pediatric Dose Calculation: N/A Procedure: Tumor Localization Imaging (MIBG Scans) Medications for Procedure: I-123 Metaiodobenzylguanidine (MIBG) *120 mg Potassium Iodide in 8 Oz. given PO one hour prior to dosing for procedure Adult Dose: 10mCi Pediatric Dose Calculation: .14mCi/kg Pediatric Minimum: 1.0mCi Pediatric Maximum: 10.0mCi Reference: #2 Procedure: Tumor Localization Imaging (MIBG Scans) Medications for Procedure: I-131Metaiodobenzylguanidine (MIBG) *120 mg Potassium Iodide in 8 Oz. given PO one hour prior to dosing for procedure Adult Dose: 1.0mCi Pediatric Dose Calculation: N/A Procedure: Tumor Localization Imaging Medications for Procedure: In-111 Pentetreotide (Octreoscan) Adult Dose: 6.0mCi Pediatric Dose Calculation: .08mCi/kg Pediatric Maximum: 6.0mCi Reference: #1 Procedure: Tumor Localization Imaging Medications for Procedure: I-131 Sodium Iodide Adult Dose: 5.0mCi Pediatric Dose Calculation: N/A Procedure: Tumor Localization Imaging Medications for Procedure: I-123 Sodium Iodide Adult Dose: 1.5-2.0mCi Pediatric Dose Calculation: .028mCi/kg Reference: No reference information Procedure: Venogram (Upper/Lower Extremities) Medications for Procedure: Tc-99m Ultratag *Syringe prepped with Heparin Lock Flush(concentration of 100 units/ml) volume of ~.1ml used so dose is ~10 units of Heparin for each procedure Adult Dose: 30mCi Pediatric Dose Calculation: N/A Procedure: Ventricular Shunt Imaging Medications for Procedure: Tc-99m DTPA Adult Dose: 1.0mCi Pediatric Dose Calculation: N/A References for Pediatric Administration: Nuclear Medicine Procedure Manual, Division of Nuclear Medicine, [facility] of Radiology; gamma.[facility]/index2.html [place] Consensus Guidelines for Administered Radiopharmaceutical Activities in Children andAdolescents; http://interactive.snm.org/docs/Pediatric dose consensus guidelines Final 2010.pdf ACR-SNM-SPR Practice guideline for the performance of Scintigraphy for inflammation and infection; www/acr.org.guidelines. Revised 2009 9.1 Rocio SHANNON, Ed WC, Carmita RD. Nuclear Medicine Diagnosis and Therapy. [employer]1996. Chapter 37, page 930, Table 1. Pediatric weight/dose database file NMIS system: Pediatric Dose = Adult dose (mCi) x Dose Factor Range of Weight (lbs) Dose Factor (%) 0.00-5.00 10 5.01-10.00 10 10.01-15.00 16 15.01-20.00 21 20.01-25.00 25 25.01-30.00 30 30.01-40.00 34 40.01-50.00 41 50.01-60.00 48 60.01-70.00 54 70.01-80.00 61 80.01-90.00 67 90.01-100.00 72 100.01-110.00 78 110.01-120.00 83 120.01-130.00 88 130.01-140.00 94 140.01-142.00 99 142.01-150.00 100 Attention: Any exam, radiopharmaceutical or dosage not included on this list requires physician approval and a written prescription Approved by: Medical Executive Committee and Imaging Services INE SIGN WRITER * Savannah Garcia MD - 09/14/2024 1:00 PM CST CRITICAL CARE MEDICINE DAILY PROGRESS NOTE PCP: Anu Thompson DO Hx: 49 y.o. female admitted 09/13/2024 with hypotension and tachycardia. Recently hospitalized at [place] between 08/22/2024 through 08/25/2024. Seen by her oncologist today and noted to be hypotensive in office and was transferred to hospital for evaluation. She is homeless, has been staying witha friend. 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 reports in prior documentation of poor historian. She was evaluated in ED and noted to be hypotensive after IVF bolus and initiated on levophed. She was transferred to the ICU under [facility] management. Pertinent PMHx: Past Medical History: Diagnosis Date Bipolar disorder ([facility]/HCC) Laryngeal squamous cell carcinoma ([facility]/HCC) 07/13/2024 Migraine Schizophrenia ([facility]/HCC) Current Care Plan Summary: This is a 49-year-old female with a past medical history of laryngeal squamous cell carcinoma, who is currently being managed for septic shock requiring pressors, also has a history of trach/PEG and carcinoma as above. Remains on Levophed gtt. for target MAP > 65. Concern for respiratory source. Bolus additional crystalloid today, receiving normal saline. On broad-spectrum vancomycin/cefepime. Culture data negative thus far, pneumonia pathogen panel positive for RSV. Discontinue vancomycin, continue cefepime monotherapy. History of laryngeal cancer as above, homeless and unable to obtain care at this time. Oncology consulted. Speech therapy consulted. ICU timeline: 09/13: Admitted to ICU, on pressors Major active problem list: Principal Problem: Severe sepsis with septic shock (CMS/HCC) Active Problems: Bipolar disorder, unspecified (CMS/HCC) Essential hypertension COPD (chronic obstructive pulmonary disease) (CMS/HCC) CKD (chronic kidney disease) Laryngeal squamous cell carcinoma (CMS/HCC) Hx of laryngeal cancer Acute renal failure superimposed on chronic kidney disease Hypovolemic shock (CMS/HCC) Subjective: 24 hour events -as above Objective: Current vital signs Blood pressure 124/71, pulse 71, temperature 98.6 ??F (37 ??C), temperature source Axillary, resp. rate 14, height 5' 5 (1.651 m), weight 85 kg (187 lb 6.3 oz), SpO2 91%. 24 hour BP and temperature range BP: (65-124)/(42-94) Temp (24hrs), Av.6 ??F (37 ??C), Min:97.7 ??F (36.5 ??C), Max:99.2 ??F (37.3 ??C) Input/Output 09/12 1900 - 09/14 0659 In: 1758.6 [I.V.:1758.6] Out: 1000 [Urine:1000] PHYSICAL EXAM: Gen: awake, alert Neuro: CN II-XII grossly intact, QUIÑONES HEENT: poor dentition, trach in place Cardiac: NSR, RRR Pulm: coarse with scattered wheezes throughout, mildly labored Abdomen: rounded, nondistended, nontender, PEG in place Skin: pale, warm, dry Extremities: no edema, pulses intact Data Review: BMP: Recent Labs 09/13/24 1337 09/13/24 1648 09/14/24 0711 GLUCOSE 140* 94 153* BUN 29* 31* 22* CREAT 1.56* 1.65* 1.34* NA 136 139 143 K 4.1 4.5 4.5 CL 105 105 114* CO2 19* 23 23 ANIONGAP 12 11 6* estimated creatinine clearance is 53.5 mL/min (A) (by C-G formula based on SCr of 1.34 mg/dL (H)). LFTs: Recent Labs 09/13/24 1337 09/13/24 1648 ALKPHOS 73 82 ALT 23 27 AST 31 25 BILITOTAL 0.3 0.2 ALBUMIN 3.4* 3.6 CBC: Recent Labs 09/13/24 1337 09/13/24 1648 09/14/24 0711 WBC 7.4 7.2 6.9 HGB 13.8 13.8 11.7* HCT 43.9 42.6 37.7 PLT 305 315 245 MCV 95.2 94.5 96.4 Coagulation: No results for input(s): PT , INR , APTT in the last 72 hours. ABG: Lab Results Component Value Date/Time LACTATE 0.6 09/14/2024 12:04 AM Lactic acid: Lab Results Component Value Date/Time LACTATE 0.6 09/14/2024 12:04 AM LACTATE 1.3 09/13/2024 04:48 PM Radiology: Pertinent imaging/reports reviewed Assessment and Plan Neuro/Psych: History of depression-resume home Paxil History of bipolar Cardiovascular/Fluids: Hx CAD- has previously been evaluated for CABG 2v. S/p CARMELO. Resume ASA and Plavix History of hypertension-holding antihypertensives due to hypotension Severe sepsis with shock-titrate vasopressors for MAP goals. History of hyperlipidemia-resume statin Pulmonary: S/p trach, PMV in place COPD-Home inhalers Titrate oxygen as needed GI/NUT: General Diet S/p PEG SUP, no Renal/LYTES/Acid-Base: History CKD Trend electrolytes Monitor UOP Infectious Disease: Blood cultures x 2: Pending Sputum: Pending Pneumonia pathogen PCR: Pending Respiratory PCR: Pending Vancomycin Cefepime Hem/Onc/Coag: SCC laryngeal cancer DVTp, hep subq Endocrine: Trend BS- no hx DM Musculoskeletal/Skin: As per routine nursing and unit protocol Family communication: None available during my rounds Critical care time: 33 mins INE SIGN WRITER * Camila Navarrete, SHIPPING RECEIVING CLERK - 09/14/2024 12:49 PM CST [facility] 3K Ph. ; Fax. Acute Speech-Language Pathology Passy-Milan valve Evaluation 09/14/2024 Room: [address] [place] [address] Name: Ventura Elmore Age: 49 y.o. Date of : 1975 Insurance: Payor: MEDICAID / Plan: MEDICAID [place] / Product Type: Medicaid / Patient class: Inpatient Confirmed patient's identification of name and date of : on name band and by patient report Consent to treatment given by patient and nurse with results as follows: Onset of illness/injury or date of surgery: 09/13/2024 HPI Ventura Elmore is a 49 y.o. female admitted for septic shock. 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 P16 -). 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 I know all about thickened liquids. Pain: Refer to Doc Flowsheet for documented pain levels. Level of Alertness: Alert/Responsive Mood/Affect: Patient calm and cooperative Position: Upright in bed Oriented x Person, Place, Situation , and Date (Month, Day of week, Date, and Year) Circumstances negatively impacting performance this date: none Diagnostic Intervention Provided Speech Language Pathology Evaluation to Fit Voice Prosthetic Pre-assessment Status Tracheal Secretions Description: creamy and peña Amount: small Consistency: thick Frequency of Suctioning: PRN Tracheostomy Tube Type: Shiley Size: 6 Cuffless Date of tracheostomy insertion: Unknown--completed at an outside hospital Supplemental O2 Delivery Method: Airvo trach mask at 50L/40% Cognitive/Communication Status Oromotor strength/coordination: within normal limits Current mode(s) of communication: gestures and mouthing words Passy-Jeff Valve Placement Trial Oral suctioning completed: Not applicable: patient presents with productive cough effort Tracheal suctioning completed: Yes Passy-Milan speaking valve applied to: Hub of the tracheostomy beneath a 50L/40% trach mask Vocal Intensity: Fair Speech Intelligibility: Fair to Good Vocal Quality: dysphonic Passy-Jeff Valve Tolerance: Fair. Able to tolerate PMV placement for approximately 1 minute before displaying respiratory difficulties. Signs/Symptoms distress: severe if speaking valve employed continuously for 30 seconds Amount of Coughing: mild Level of Anxiety: severe when PMV left in place for more than 30 seconds or so. Patient able to apply/remove speaking valve: yes Family/Caregiver able to apply/remove speaking valve: family/caregiver not present Continuous pulse oximetry recommended: yes: Vital signs monitor currently in use Passy-Jeff Valve placement trial under direct SHIPPING RECEIVING CLERK observation: 20 minutes with Ventura donning and doffing the valve at will in order to verbalize. PMV left hanging from the Secure It. Ventura to don and doff the device at will - RN/RT notified and agreed upon therapist exiting room. Assessment No family present. Ventura was alert and compliant. Ox4, as achieved via mouthing. Unable to tolerate continuous PMV placement, for more than 30 seconds, due to respiratory distress.Known left sided, paraglottic invasive tumor most likely is the causal factor related to sustained PMV intolerance. Ventura was able to don and doff the valve at will, allowing for functional, albeit dysphonic, delivery of basic wants and needs. Recommendations DISCHARGE RECOMMENDATIONS: Continued SHIPPING RECEIVING CLERK services post-acute, location pending physical needs Recommendations for referral to another service: None at this time Precautions Plan of Care Patient precautions: Tracheostomy Tube, PMV, and Isolation Continue SHIPPING RECEIVING CLERK services to address Passy Milan Valve intervention, anticipate follow up in the next 2-4 days or as medical condition changes. Plan of care to continue for the duration of the patient's acute care hospital stay or until goals are met. Please notify speech therapy department should the patient's condition change and/or patient requires SHIPPING RECEIVING CLERK services prior to the next anticipated SHIPPING RECEIVING CLERK visit. Education Disposition Regarding: rationale of Passy Jeff Speaking Valve placement, care/management of Passy-Milan SpeakingValve, total communication options, and speech therapy plan of care Learner, method of education, and response to learning listed in Education tab in Epic Before session: Patient lying in bed After session: Patient lying in bed and call light in reach Current Diagnoses/Past Medical History Pertinent diagnoses and past medical history related to this hospital stay are present in physicianH&P and physician daily notes. Prior to session, completed thorough chart review. Reviewed prior therapy treatment notes as applicable. Further treatment notes and therapeutic goals can be found in Care Plan Notes. If the patient discharges from facility prior to another therapy visit, this shall serve as the therapy discharge summary Thank you for this referral, ~Camila Navarrete M.S., [facility]-SHIPPING RECEIVING CLERK Acute Speech Therapy Charge Zone Phone #[phone] Acute Speech Therapy Charge Pager #[phone] INE SIGN WRITER * Mahendra Beltran, PHARMACIST - 09/14/2024 11:05 AM CST Vancomycin Consult to Pharmacy Vancomycin Day # 2 of therapy Serum creatinine: 1.34 mg/dL (H) 09/14/24 0711 Estimated creatinine clearance: 53.5 mL/min (A) NOTE: This calculation is potentially inaccurate in acute and/or chronic kidney disease and over/under weight patients, and thus is only an estimation of renal function Assessment: Ventura Elmore is a 49 y.o. female who is currently receiving Vancomycin dosed by Pharmacy for suspected sepsis. Pertinent labs include SCr = 1.34 mg/dL, CrCl 53.5 mL/min. WBC = 6.9 K/uL and Tmax = 99.2 F. Goal Vancomycin random level of 15 mcg/mL. Last random level was 16.7 mcg/mL. Cultures 09/13 Blood - In process 09/14 Sputum - Needs recollected 09/14 PNA PCR - In process Plan: Give Vancomycin 500 mg IV ONCE Plan to obtain a Vancomycin random with AM labs and supplement as needed Will consider scheduling vancomycin dosing at that time Continue to monitor renal function per protocol or as ordered Pharmacy will continue to monitor the patient's labs. We will follow-up with a daily progress note for Vancomycin and Aminoglycoside Consults. Subjective/Objective: Ventura Elmore is a 49 y.o. female Serum creatinine: 1.34 mg/dL (H) 09/14/24 0711 Estimated creatinine clearance: 53.5 mL/min (A) Temp (24hrs), Av.4 ??F (36.9 ??C), Min:97.7 ??F (36.5 ??C), Max:99.2 ??F (37.3 ??C) BP (!) 92/58 Pulse 73 Temp 99.2 ??F (37.3 ??C) (Axillary) Resp 18 Ht 5' 5 (1.651 m) Wt 85 kg (187 lb 6.3 oz) SpO2 99% BMI 31.18 kg/m?? WBC Date/Time Value Ref Range Status 09/14/2024 07:11 AM 6.9 4.8 - 10.8 K/uL Final 09/13/2024 04:48 PM 7.2 4.8 - 10.8 K/uL Final 09/13/2024 01:37 PM 7.4 4.8 - 10.8 K/uL Final CREATININE Date/Time Value Ref Range Status 09/14/2024 07:11 AM 1.34 (H) 0.51 - 0.95 mg/dL Final 09/13/2024 04:48 PM 1.65 (H) 0.51 - 0.95 mg/dL Final 09/13/2024 01:37 PM 1.56 (H) 0.51 - 0.95 mg/dL Final 07/18/2024 09:20 AM 1.32 (H) 0.51 - 0.95 mg/dL Final 07/13/2024 10:09 AM 1.44 (H) 0.51 - 0.95 mg/dL Final BUN Date/Time Value Ref Range Status 09/14/2024 07:11 AM 22 (H) 6 - 20 mg/dL Final 09/13/2024 04:48 PM 31 (H) 6 - 20 mg/dL Final 09/13/2024 01:37 PM 29 (H) 6 - 20 mg/dL Final VANCOMYCIN, RANDOM Date/Time Value Ref Range Status 09/14/2024 07:11 AM 16.7 5.0 - 50.0 ug/mL Final Thank you for the consult and involving us in the care of this patient, we will continue to monitor. Mahendra Beltran, PHARMACIST INE SIGN WRITER * Phong Huggins RN - 09/14/2024 3:00 AM CST Critical Woods Manager Scribed COVID Negative Note COVID-19 test is negative according to lab results, resulted at 09/13/2024 (date) 2131 (time). This note is prepared by Phong Huggins, RN , Critical Woods Manager, acting as a scribe for Milan Cook MD Physician cosign is needed by Dr. Milan Cook MD Critical Woods Manager Phong Huggins RN Cosigned by Milan Cook MD at 09/16/2024 7:29 AM MACHINE SIGN WRITER INE SIGN WRITER INE SIGN WRITER * Phong Huggins RN - 09/13/2024 11:54 PM CST Sepsis Coordinator Progress Note 09/13/24 11:54 PM Ventura Elmore [id number] Last documented weight: Weight: 85 kg (187 lb 6.3 oz) (09/13/242029)): Body mass index is 31.18 kg/m??. ADT events: Sepsis Activation d/t Bedside Provider, with Hypotension. Rule out Suspect Infection/Source Unknown Heart Rate >90 no Respiratory Rate >20 no WBC >52873 or <4000 no Temp >100.9 or <96.8 no Physician: Joyce NELSON Primary Nurses: Ehsan MISHRA Questionable SEVERE SEPSIS/SEPTIC SHOCK: yes TIME ZERO (V-Sepsis) IS: 2321 Bundle Elements: Lactic Acid / Repeat lactic acid (if 1st was > 2): Initial LA Time: 0004 Result: 0.6 2nd LA Time: Result: Blood Cultures Drawn: 09/13/2024 Time: 1648:1648 Antibiotics Administered: 1. Antibiotic: Cefepime 2000 mg Ordered Time: 2110 Start Time: 2128 2. Antibiotic: Vancomycin 1250 mg Ordered Time: 2114 Start Time: 5 3. Antibiotic: mg Ordered Time: Start Time: 30mL/kg IVF bolus (use IBW if BMI>30): N/A Fluid Exclusion note placed Volume ordered: 1000 ml Volume administered: 1000 ml Start Time: 1736 End Time: 1806 Vasopressors started: Norepinephrine Time: 1730 Pt Septic: Rule out Septic Shock Sepsis process discontinued by (provider): INE SIGN WRITER * Phong Huggins RN - 09/13/2024 11:53 PM CST Critical Woods Manager Sepsis Note Patient was given fluid challenge. Phong Huggins RN INE SIGN WRITER * Phong Huggins RN - 09/13/2024 11:52 PM CST Critical Woods Manager Note 11:52 PM Concerned 30ml/kg of crystalloid fluids may be harmful despite having Documentation of septic shockin this patient with Fluid Overload. The patient will be administered 1000 ml in total 30 minutes and then reevaluated. This note is prepared by Phong Huggins RN , Critical Woods Manager RN, acting as a scribe for Dr. Milan Huggins RN Cosigned by Milan Cook MD at 09/16/2024 7:29 AM MACHINE SIGN WRITER INE SIGN WRITER INE SIGN WRITER INE SIGN WRITER INE SIGN WRITER * Camila Rod RN - 09/13/2024 11:40 PM CST [facility] Sepsis Surveillance note (A positive vSepsis screen does not imply diagnosis) Potential Time Zero: 2321 3hr channing: 0222 6hr channing: 0522 Criteria A - Questionable Infection Present?: Yes (09/13/242329) Questionable source of infection: Risk for Suspect Infection, source unknown (09/13/242329) SIRS Criteria: (no current SIRS criteria) (09/13/242329) Organ Dysfunction Present?: Yes (09/13/242329) Organ Dysfunction Criteria: Hypotension SBP < 90 or MAP < 65 (09/13/242329) Questionable Severe Sepsis/Questionable Septic Shock/Other?: Questionable Septic Shock (per bedside) (09/13/242329) Initial Lactic Acid?: Yes, Ordered by Bedside;Collected - No (09/13/242338) Blood Cultures?: Yes, Ordered by Bedside;Collected - Yes (Within time frame) (09/13/242329) Antibiotics?: Ordered - Yes;Administered - Yes (Within time frame) (09/13/24 8028) The [facility] Sepsis team has notified the Sepsis Coordinator, Andriy RN via secure chat and discussed the above. Please call [facility] Sepsis if any assistance is needed. Please call [facility] Sepsis if the patient is not septic and the sepsis alert needs to be cancelled. [facility] Sepsis Camila Rod RN INE SIGN WRITER * Raghu Sosa PHARMACIST - 09/13/2024 9:24 PM CST RX ANTICOAG MONITORING ORDERS Pharmacy to order, review, and report clinically significant changes in lab per [facility] Anticoagulation Protocol as follows: Orders for dosing changes and follow-up labs will be signed ???Per Protocol?? in Epic. The name ofthe provider signed on the follow-up orders for cosignature will be assigned as follows: Orders placed by members of the Bakery Machine Mechanic Supervisor or Hospitalist physician groups: If the original ordering provider is no longer the attending physician for the patient, responsibility for cosignature of the follow-up medication orders and labs will transfer from the original ordering provider to the current attending physician. Orders placed by any other provider: Responsibility for cosignature of the follow-up medication orders and labs will remain with the original ordering provider of the anticoagulant order. Pharmacy will order appropriate labs as indicated by the [facility] Anticoagulation Monitoring policy located on [facility] intranet, unless already ordered. The medications that will be monitored include (but are not limited to): Low molecular weight heparin, heparin, and fondaparinux Direct Thrombin Inhibiors (argatroban, bivalirudin dabigatran lepirudin) Warfarin Direct oral anticoagulants (rivaroxaban, apixaban, edoxaban) Pharmacy will order labs for patients not on a heparin protocol, warfarin protocol, or anticoagulant protocol. Nursing to order labs required as indicated by those protocols. This policy is in compliance with the JCAHO National Patient Safety Goal 3E and authorized by the [facility] Pharmacy and Therapeutics Committee. Cosigned by Milan Cook MD at 09/13/2024 11:55 PM MACHINE SIGN WRITER INE SIGN WRITER INE SIGN WRITER * Raghu Sosa, PHARMACIST - 09/13/2024 9:16 PM CST Vancomycin and Cefepime Consult to Pharmacy Current Antibiotic Therapies Vancomycin and Cefepime Day # 1 Serum creatinine: 1.65 mg/dL (H) 09/13/24 1648 Estimated creatinine clearance: 42.2 mL/min (A) NOTE: This calculation is potentially inaccurate in acute and/or chronic kidney disease and over/under weight patients, and thus is only an estimation of renal function Assessment: Ventura Elmore is a 49 y.o. female who is starting Vancomycin and Cefepime per pharmacy to dose for suspected sepsis. Dosing body weight is 66 kg (AdjW), baseline labs are as follows: Scr 1.65, est CrCl 42.2 mL/min. Patient appears to be vancomycin naive at this facility Plan: 1. Begin vancomycin 1250 mg for one dose. 2. Due to unstable renal function will begin w/ random level monitoring w/ AM labs and assess renalfunction/provide supplemental doses as is appropriate. 3. Continue to monitor renal function daily. Pharmacy will continue to monitor the patient's labs. We will follow-up with daily progress note for Vancomycin and Aminoglycoside Consults and will write a progress note in the future if any additional dosage adjustment is needed on other renal consults. Subjective/Objective: Ventura Elmore is a 49 y.o. female Temp (24hrs), Av.1 ??F (36.7 ??C), Min:97.9 ??F (36.6 ??C), Max:98.3 ??F (36.8 ??C) BP 109/62 Pulse 70 Temp 98.3 ??F (36.8 ??C) (Oral) Resp 18 SpO2 97% WBC Date/Time Value Ref Range Status 09/13/2024 04:48 PM 7.2 4.8 - 10.8 K/uL Final 09/13/2024 01:37 PM 7.4 4.8 - 10.8 K/uL Final 07/13/2024 10:09 AM 6.8 4.8 - 10.8 K/uL Final PLATELETS Date/Time Value Ref Range Status 09/13/2024 04:48 PM 315 140 - 440 K/uL Final 09/13/2024 01:37 PM 305 140 - 440 K/uL Final 07/13/2024 10:09 AM 208 140 - 440 K/uL Final BUN Date/Time Value Ref Range Status 09/13/2024 04:48 PM 31 (H) 6 - 20 mg/dL Final 09/13/2024 01:37 PM 29 (H) 6 - 20 mg/dL Final 07/18/2024 09:20 AM 16 6 - 20 mg/dL Final CREATININE Date/Time Value Ref Range Status 09/13/2024 04:48 PM 1.65 (H) 0.51 - 0.95 mg/dL Final 09/13/2024 01:37 PM 1.56 (H) 0.51 - 0.95 mg/dL Final 07/18/2024 09:20 AM 1.32 (H) 0.51 - 0.95 mg/dL Final Thank you for the consult and involving us in the care of this patient, we will continue to monitor. Raghu Sosa PHARMACIST INE SIGN WRITER * Raghu Sosa PHARMACIST - 09/13/2024 9:16 PM CST PHARMACY CONSULT SERVICE PROTOCOL: A ???CONSULT TO PHARMACY?? order has been placed on this patient per Hospital Pharmacy policy- [facility] Clinical Pharmacy Services. This order can be found on the [facility] and authorizes pharmacy tomanage the dosing and monitoring of consulted medications as follows: Pharmacy will order the initial doses and any labs deemed clinically necessary to dose a consulted medication. These initial orders will be signed ???Per Protocol?? under the name of the provider who placed the ???CONSULT TO PHARMACY?? order. Pharmacy will have the authority to modify the doses and order any labs deemed clinically necessaryfor consulted medications on subsequent days as long as the ???CONSULT TO PHARMACY?? order remainsactive on the MAR. Orders for dosing changes and follow-up labs will be signed ???Per Protocol?? in [facility]. The name of the provider signed on the follow-up orders for cosignature will be assigned as follows: Consults for patients whose antimicrobials are being managed by members of the Bakery Machine Mechanic Supervisor or Hospitalist physician groups: If the original authorizing provider is no longer the attending physician for the patient, responsibility for cosignature of the follow-up medication orders and labs will transfer from the original authorizing provider to the current attending physician. Consults for patients whose antimicrobials are being managed by any other provider: Responsibility for cosignature of the follow-up medication orders and labs will remain with the original authorizing provider of the ???CONSULT TO PHARMACY?? order. Any attending physician has the authority to cancel pharmacy dosing/monitoring and resume dosing/monitoring of the medications without pharmacy assistance at any time by discontinuing the ???CONSULT TO PHARMACY?? order from the [facility]. This protocol has been approved by the [facility] Pharmacy and Therapeutics Committee. Cosigned by Milan Cook MD at 09/13/2024 11:55 PM MACHINE SIGN WRITER INE SIGN WRITER INE SIGN WRITER documented in this encounter H&P Notes * Kelin Bunn NP - 09/13/2024 7:47 PM CST Images from the original note were not included. CRITICAL CARE MEDICINE HISTORY & PHYSICAL PCP: Anu Thompson DO Subjective: CC: Hypotension, tachycardia HPI: Ventura Elmore is a 49 y.o. female admitted 09/13/2024 with hypotension and tachycardia. Recently hospitalized at [place] between 08/22/2024 through 08/25/2024. Seen by her oncologist today and noted to be hypotensive in office and was transferred to hospital for evaluation. She is homeless,has been staying with a friend. 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 reports in prior documentation of poor historian. She was evaluated in ED and notedto be hypotensive after IVF bolus and initiated on levophed. She was transferred to the ICU under [facility] management. Database: Past Medical History: Diagnosis Date Bipolar disorder (CMS/HCC) 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 Migraine Schizophrenia (CMS/HCC) Past Surgical History: Procedure Laterality Date HX SECTION x 2 HX HYSTERECTOMY HX SURGICAL OTHER mass removal from pelvic x 2 Medication List CONTINUE taking these medications ALPRAZolam 0.25 mg tablet Commonly known as: Xanax Take 1 Tablet (0.25 mg) by mouth see administration instructions. Take 1 hour prior to scan. May repeat once as needed. Signed by: Dr. Renaldo Dumont Quantity: 2 Tablet Refills: 0 aspirin 81 mg Tablet, Chewable Commonly known as: RISA CHEWABLE 81 mg by G Tube route daily. Refills: 0 atorvastatin 80 mg tablet Commonly known as: LIPITOR 80 mg by G Tube route daily at bedtime. Refills: 0 bisacodyL 10 mg Suppository Commonly known as: DULCOLAX Insert 10 mg by rectum 1 time daily as needed. Refills: 0 budesonide 0.5 mg/2 mL Suspension for Nebulization Commonly known as: PULMICORT RESPULE Take 0.5 mg by inhalation 2 times daily. Refills: 0 cloNIDine HCL 0.1 mg tablet Commonly known as: CATAPRES Take 0.1 mg by mouth daily. Refills: 0 clopidogreL 75 mg Tablet Commonly known as: PLAVIX 75 mg by G Tube route daily. Refills: 0 * dexAMETHasone 4 mg tablet Commonly known as: DECADRON Take 8 mg in the morning on Day 2 followed by 8 mg twice a day on Days 3-4 of each chemotherapy cycle. Signed by: Dr. Renaldo Dumont Quantity: 30 Tablet Refills: 1 * dexAMETHasone 4 mg tablet Commonly known as: DECADRON Take 1 Tablet (4 mg) by mouth 2 times daily. Signed by: Nurse Practitioner Ken Astudillo Quantity: 30 Tablet Refills: 0 hydrALAZINE 50 mg tablet Commonly known as: APRESOLINE Take 50 mg by mouth 4 times daily. Refills: 0 lisinopriL 20 mg tablet Commonly known as: PRINIVIL TAKE ONE TABLET (20 MG) BY MOUTH DAILY. Signed by: Nurse Practitioner David Cotton Quantity: 30 Tablet Refills: 0 metoprolol tartrate 25 mg tablet Commonly known as: LOPRESSOR 25 mg by G Tube route 2 times daily. Refills: 0 nitroglycerin 0.4 mg Tablet, Sublingual Commonly known as: NITROSTAT Place 0.4 mg under tongue every 5 minutes as needed. Refills: 0 ondansetron 8 mg Tablet, Rapid Dissolve Commonly known as: ZOFRAN ODT Dissolve 1 tablet on top of tongue then swallow with saliva every 8 hours as needed for nausea or vomiting Signed by: Nurse Practitioner Ken Astudillo Quantity: 30 Tablet Refills: 0 PARoxetine HCl 20 mg tablet Commonly known as: PAXIL 20 mg by G Tube route daily. Refills: 0 prochlorperazine maleate 10 mg tablet Commonly known as: COMPAZINE Take 1 Tablet (10 mg) by mouth every 6 hours as needed for Nausea/Emesis. Signed by: Nurse Practitioner Ken Astudillo Quantity: 30 Tablet Refills: 0 risperiDONE 2 mg tablet Commonly known as: RisperDAL Take 2 mg by mouth daily. Refills: 0 traMADoL 50 mg tablet Commonly known as: ULTRAM Take 1 Tablet (50 mg) by mouth every 8 hours as needed for Pain. Signed by: Dr. Renaldo Dumont Quantity: 21 Tablet Refills: 0 * !!Potential duplicate medications found. Review medication list carefully. Allergies: Allergies Allergen Reactions Hydromorphone Dizziness and Headache Social History Tobacco Use Smoking status: Every Day Current packs/day: 0.25 Types: Cigarettes Smokeless tobacco: Never Substance Use Topics Alcohol use: No No family history on file. REVIEW OF SYSTEMS: Review of Systems Constitutional: Positive for malaise/fatigue. HENT: Negative. Eyes: Negative. Respiratory: Positive for cough, shortness of breath and wheezing. Cardiovascular: Negative. Gastrointestinal: Negative. Genitourinary: Negative. Musculoskeletal: Negative. Skin: Negative. Neurological: Positive for weakness. Endo/Heme/Allergies: Negative. Psychiatric/Behavioral: Negative. Objective: Initial Vitals BP 09/13/24 1630 (!) 70/42 Pulse 09/13/24 1630 80 Resp 09/13/24 1630 30 Temp 09/13/24 1700 98.3 ??F (36.8 ??C) Temp src 09/13/24 1700 Oral SpO2 09/13/24 1630 95 % Patient Vitals for the past 8 hrs: BP Temp Temp src Pulse Resp SpO2 09/13/242044 109/62 -- -- 70 18 97 % 09/13/242029 109/59 -- -- 75 18 95 % 09/13/241999 -- -- -- 71 14 95 % 09/13/241944 -- -- -- 72 16 95 % 09/13/24 1930 -- -- -- 66 17 96 % 09/13/24 192 103/81 -- -- 71 14 95 % 09/13/241918 -- -- -- 89 24 96 % 09/13/24 191 97/58 -- -- 74 18 95 % 09/13/24 191 104/87 -- -- 80 22 91 % 09/13/24 1900 110/62 -- -- 72 17 94 % 09/13/24 1845 105/63 -- -- 76 17 90 % 09/13/24 1835 97/54 -- -- 78 19 (!) 88 % 09/13/24 1830 111/57 -- -- 77 17 92 % 09/13/24 1815 103/57 -- -- 75 16 91 % 09/13/24 1800 (!) 104/92 -- -- 79 18 97 % 09/13/24 1745 (!) 112/95 -- -- 90 24 92 % 09/13/24 1730 (!) 82/61 -- -- 68 25 96 % 09/13/24 1715 (!) 81/35 -- -- 76 21 96 % 09/13/24 1700 (!) 90/53 98.3 ??F (36.8 ??C) Oral 70 19 90 % 09/13/24 1655 (!) 86/50 -- -- 72 19 94 % 09/13/24 1645 (!) 86/50 -- -- 79 19 91 % 09/13/24 1630 (!) 70/42 -- -- 80 30 95 % PHYSICAL EXAMINATION: Gen: awake, alert Neuro: CN II-XII grossly intact, QUIÑONES HEENT: poor dentition, trach in place Cardiac: NSR, RRR Pulm: coarse with scattered wheezes throughout, mildly labored Abdomen: rounded, nondistended, nontender, PEG in place Skin: pale, warm, dry Extremities: no edema, pulses intact Data Review: BMP: Recent Labs 09/13/24 1337 09/13/24 1648 GLUCOSE 140* 94 BUN 29* 31* CREAT 1.56* 1.65* NA 136 139 K 4.1 4.5 CL 105 105 CO2 19* 23 ANIONGAP 12 11 estimated creatinine clearance is 42.2 mL/min (A) (by C-G formula based on SCr of 1.65 mg/dL (H)). LFTs: Recent Labs 09/13/24 1337 09/13/24 1648 ALKPHOS 73 82 ALT 23 27 AST 31 25 BILITOTAL 0.3 0.2 ALBUMIN 3.4* 3.6 CBC: Recent Labs 09/13/24 1337 09/13/24 1648 WBC 7.4 7.2 HGB 13.8 13.8 HCT 43.9 42.6 PLT 305 315 MCV 95.2 94.5 Coagulation: No results for input(s): PT , INR , APTT in the last 72 hours. ABGs: Lab Results Component Value Date/Time LACTATE 1.3 09/13/2024 04:48 PM Radiology: Imaging reviewed Assessment and Plan: Neuro/Psych: History of depression-resume home Paxil History of bipolar Cardiovascular/Fluids: Hx CAD- has previously been evaluated for CABG 2v. S/p CARMELO. Resume ASA and Plavix History of hypertension-holding antihypertensives due to hypotension Severe sepsis with shock-titrate vasopressors for MAP goals. History of hyperlipidemia-resume statin Pulmonary: S/p trach, PMV in place COPD-Home inhalers Titrate oxygen as needed GI/NUT: General Diet S/p PEG SUP, no Renal/LYTES/Acid-Base: History CKD Trend electrolytes Monitor UOP Infectious Disease: Blood cultures x 2: Pending Sputum: Pending Pneumonia pathogen PCR: Pending Respiratory PCR: Pending Vancomycin Cefepime Hem/Onc/Coag: SCC laryngeal cancer DVTp, hep subq Endocrine: Trend BS- no hx DM Musculoskeletal/Skin: As per routine nursing and unit protocol Additional comments: Homeless with multiple complex medical issues, will need social work involvement. Note outpatient oncology MD and nursing documentation from day of admission. Wean levophed as tolerated, awaiting septic workup Family Communication: discussed with patient who appeared neuro intact and could answer questions appropriately Cosigned by Milan Cook MD at 09/13/2024 11:21 PM MACHINE SIGN WRITER INE SIGN WRITER INE SIGN WRITER Associated attestation - Milan Cook MD - 09/13/2024 11:21 PM MACHINE SIGN WRITER I reviewed the medical record including the applicable Critical Care Medicine APC note from today. I independently examined the patient I discussed the history, physical findings, laboratory findings, assessment and plan with the applicable APC on rounds.? I have reviewed the physical exam findings in the applicable resident/Fellow/MONOTYPE CASTER/PA's note; my notable physical exam findings include: Body mass index is 31.18 kg/m??. I have reviewed the assessment and plan in the applicable APC note. Notable amendments to the assessment and plan include: 49-year-old female with squamous cell carcinoma of the larynx s/p trach/PEG admitted to the ICU on 09/13 for further management of septic shock Was seen in the oncology office today where she was noted to be hypotensive and tachycardic and wastransferred to the ED Was recently admitted to OSH for? Bronchitis but has not been taking antibiotics since discharge NICOM guided fluid resuscitation Wean Levophed to keep MAP greater than 65 Follow sepsis workup Empiric vancomycin, cefepime for now History of laryngeal cancer s/p trach and PEG Has been eating p.o. Resume diet Has refused surgery RADHA, suspect prerenal. Monitor urine output Creatinine trend suggests she may have some underlying CKD although her baseline is hard to determine She will need an oncology consult and restaging scans once more stable Will need social work/care management involvement as she is homeless and is going to need outpatient chemo/radiation Rest per RANDY note Family Communication: Critical care time of 40 minutes was spent with this patient excluding procedures or teaching. Active problem list: Active Problems: Bipolar disorder, unspecified (CMS/HCC) Essential hypertension COPD (chronic obstructive pulmonary disease) (CMS/HCC) CKD (chronic kidney disease) Laryngeal squamous cell carcinoma (CMS/HCC) documented in this encounter Procedure Notes * Maricarmen Spencer RN - 09/14/2024 4:38 PM CST VASCULAR ACCESS NOTE Midline PATIENT NAME: Ventura Elmore DATE OF : 1975 CSN: [id number] DATE: 09/14/2024 Room: [address] [place] [address] Admit Date: 09/13/2024 Hospital day: LOS: 1 day LINE STATUS: A Midline catheter was successfully inserted and can be used Adult Midline Catheter 09/14/24 1637 Right: basilic vein (Active) 09/14/24 1637 basilic vein Earliest Known Present: Present on Admission: No Orientation: Right: Size: Number of Insertion Attempts: 1 Insertion: Patient Tolerance: tolerated well;appears comfortable Insertion: Pain Prevention: distraction Power Injectable Compatable: Yes Earliest Known Removed: Removal Indication: Removal Interventions: *Procedural Assist Insertion of Midline catheter WO SQ port >5 yrs 09/14/24 1637 Inserted Catheter Length (cm) 8 09/14/24 1637 Midline Catheter (WDL) WDL 09/14/24 1637 Extremity Circumference, Mid-Upper (cm) 29 09/14/24 1637 Patency flushes w/o difficulty;positive blood return 09/14/24 1637 Line Interventions system flushed;IV capped 09/14/24 1637 Dressing Type/Securement transparent dressing;antimicrobial patch/disc;secured with tape;catheter securement device utilized;site adhesive 09/14/24 1637 Dressing Changed Date 09/14/24 09/14/24 1637 Needleless Connector Changed Date 09/14/24 09/14/24 1637 Line Criteria Poor venous access 09/14/24 1637 Number of days: 0 MIDLINE PROCEDURE Ultrasound assessment was performed to assess adequacy of vascular anatomy Adequate vessel was located with less than 45% catheter to vein ratio. Arm circumference 29 cm Insertion site cleansed for 30 seconds with Chlora-prep Allowed to dry before initial needle stick. A midline was inserted in the Basilic vein of the right upper arm using ultrasound guidance under sterile technique. 18 gauge, 8 cm Secure port adhesive used Yes 1 attempt 45 minutes required to complete procedure Positive blood return visualized. Neutral pressure cap applied Catheter flushed easily with 5ml of Normal Saline Transparent antimicrobial dressing applied Antimicrobial cap placed Dressing with date, time and initials of RN Patient tolerated procedure well. Primary care nurse notified of catheter placement Maricarmen Spencer RN CARE AND MAINTENANCE This is not a central line. NO BLOOD PRESSURES on arm with powerglide Requires physician order for blood draws The midline is indicated for use as a peripheral IV access only Can remain in place UP TO 29 DAYS as long as catheter insertion site and extremity remain asymptomatic The midline is CT injectable with a maximum pressure of 325psi with rate of 5ml/sec (20 gauge), and7ml/sec (18 gauge) Securely apply neutral OR positive pressure cap when not in use. Flush catheter with 10ml normal saline before blood draw, after every use, and EVERY 12 HOURS for all in-patients Flush catheter once weekly when not in use(outpatient setting). Flush catheter using pulsating start-stop technique Always use 10ml syringe After blood sampling, flush catheter with 20ml normal saline Change dressing every 7 days and as needed using sterile technique INE SIGN WRITER * Angelica Balbuena RN - 09/14/2024 7:13 AM CST VASCULAR ACCESS TEAM Lab collection PATIENT NAME: Ventura Elmore DATE OF : 1975 CSN: [id number] DATE: 09/14/2024 Room: [address] [place] [address] Admit Date: 09/13/2024 Hospital day: LOS: 1 day Ultrasound Guided LAB COLLECTION Ultrasound assessment was performed to assess adequacy of vascular anatomy Adequate vessel was located Insertion site cleansed for 30 seconds with Chlora-prep. Site allowed to dry before ultrasound guided needle stick. Labs collected Yes Location: right, lower Arm Blood Cultures collected No 1 attempts 30 minutes required to complete procedure Angelica Balbuena RN, [facility] INE SIGN WRITER * Raghu Kincaid - 09/13/2024 7:48 PM CST VASCULAR ACCESS TEAM Lab collection PATIENT NAME: Ventura Elmore DATE OF : 1975 CSN: [id number] DATE: 09/13/2024 Room: 01/26 Admit Date: 09/13/2024 Hospital day: LOS: 0 days Ultrasound Guided LAB COLLECTION Ultrasound assessment was performed to assess adequacy of vascular anatomy Adequate vessel was located Insertion site cleansed for 30 seconds with Chlora-prep. Site allowed to dry before ultrasound guided needle stick. Labs collected Yes Location: right, AC Arm Blood Cultures collected No 1 attempts 15 minutes required to complete procedure Raghu Kincaid INE SIGN WRITER documented in this encounter Consult Notes * Angelique Baum RCP - 09/18/2024 11:03 AM CST Oxygen Saturation Study Lowest SpO2 Heart Rate Range Distance in Feet Dyspnea Pre-Exertion Rest: Room Air 88% 68 Laying in bed mild Rest: Oxygen @ 3 L/min via ATC28% FIO2 via venti 90% 68 Laying in bed mild Ambulation 4 lpm via ATC with 31% FIO2 via venti >90% 68-85 120 feet mild Length of time walked in minutes: 6 Number of rest periods (if applicable): 0 Patient response to exercise: tolerated well with wheeled walker Oxygen required to maintain SpO2 >88% (will require portability): YES Recommendations: Oxygen at REST: 3 lpm 28% FIO2 Oxygen with ACTIVITY: 4 lpm 31% FIO2 Using forehead probe This Home Oxygen Evaluation has been performed for an awake and mobile patient and is not an evaluation for Nocturnal Sleep Study oxygen requirements. Unless patient's condition warrants a repeat Home Oxygen Evaluation, this Home Oxygen Evaluation isvalid for 48 hours from date/time performed. Siderails up x 2 Call light within patient reach Cardiopulmonary Rehab Team Zone Phone: [phone] INE SIGN WRITER * Reinaldo Dsouza MD - 09/14/2024 8:03 PM CST Spoke with patient in regards to removing all remaining teeth pre-radiation while inpatient. Will follow peripherally, please call when patient is deemed stable to undergo general anesthetic and fullmouth extractions. [phone] INE SIGN WRITER * Maricarmen Spencer RN - 09/14/2024 4:02 PM CSTAssociated Order(s): IP CONSULT TO IV TEAM VASCULAR ACCESS CONSULT PATIENT NAME: Ventura Elmore DATE OF : 1975 CSN: [id number] DATE: 09/14/2024 Room: [address] [place] [address] Admit Date: 09/13/2024 Hospital day: LOS: 1 day INDICATION: Pt./DrWalter Preference EXCLUSIONS/CONSIDERATIONS: Multiple infusions, CKD/RADHA-GFR 48, pending blood cultures Assessment Allergies Allergen Reactions Hydromorphone Dizziness and Headache Lab Results Component Value Date/Time CREAT 1.34 (H) 09/14/2024 07:11 AM BUN 22 (H) 09/14/2024 07:11 AM NA 143 09/14/2024 07:11 AM K 4.5 09/14/2024 07:11 AM CL 114 (H) 09/14/2024 07:11 AM CO2 23 09/14/2024 07:11 AM GFR 48 (L) 09/14/2024 07:11 AM Lab Results Component Value Date/Time WBC 6.9 09/14/2024 07:11 AM HGB 11.7 (L) 09/14/2024 07:11 AM HCT 37.7 09/14/2024 07:11 AM PLT 245 09/14/2024 07:11 AM MCV 96.4 09/14/2024 07:11 AM No results found for: INR , PT , PROTIMEPOC Past Medical History: Diagnosis Date Bipolar disorder (CMS/HCC) 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 Migraine Schizophrenia (CMS/HCC) Past Surgical History: Procedure Laterality Date HX SECTION x 2 HX HYSTERECTOMY HX SURGICAL OTHER mass removal from pelvic x 2 Current Facility-Administered Medications: [COMPLETED] vancomycin (VANCOCIN) 500 mg in sodium chloride 0.9% 100 mL IVPB (MBP), 500 mg, IV, ONEtime only, Savannah Garcia MD, Stopped at 09/14/24 1225 [COMPLETED] sodium chloride 0.9 % bolus solution 500 mL, 500 mL, IV, ONE time only, Savannah Garcia MD, Stopped at 09/14/24 1038 [COMPLETED] sodium chloride 0.9 % bolus solution 1,000 mL, 1,000 mL, IV, ONE time only, Humberto Phillip MD, Stopped at 09/13/24 1725 norepinephrine bitartrate-D5W (LEVOPHED) 8 mg/250 mL (32 mcg/mL) infusion, 0-0.2 mcg/kg/min, IV, titrate, Humberto Phillip MD, Stopped at 09/14/24 1507 [COMPLETED] lidocaine (XYLOCAINE) 2 % viscous oral solution 10 mL, 10 mL, Mouth/Throat, ONE time only, Humberto Phillip MD, 10 mL at 09/13/24 1731 [COMPLETED] sodium chloride 0.9 % bolus solution 1,000 mL, 1,000 mL, IV, ONE time only, Humberto Phillip MD, Stopped at 09/13/24 1806 sodium chloride 0.9 % infusion, , IV, continuous, Humberto Phillip MD, Last Rate: 150 mL/hr at 09/14/24 1037, New Bag at 09/14/24 1037 [COMPLETED] morphine 4 mg/mL injection 4 mg, 4 mg, IV, ONE time only, Humebrto Phillip MD, 4 mg at09/13/242055 naloxone (NARCAN) 0.4 mg/mL injection 0.1-0.4 mg, 0.1-0.4 mg, IV, see admin instructions, Kelin Bunn NP replacement reminder - Potassium, 1 Each, See Admin Instructions, see admin instructions, Kelin Bunn NP replacement reminder-Magnesium, 1 Each, See Admin Instructions, see admin instructions, Kelin Bunn NP replacement reminder - Phosphorus, 1 Each, See Admin Instructions, see admin instructions, Kelin Bunn NP replacement reminder-Calcium, 1 Each, See Admin Instructions, see admin instructions, Kelin Bnun MONOTYPE CASTER acetaminophen (TYLENOL) tablet 650 mg, 650 mg, Oral, every 6 hours PRN, Kelin Bunn MONOTYPE CASTER ondansetron (ZOFRAN) 4 mg/2 mL injection 4 mg, 4 mg, IV, every 6 hours PRN, Kelin Bunn, MONOTYPE CASTER clopidogreL (PLAVIX) tablet 75 mg, 75 mg, G Tube, daily, Kelin Bunn NP, 75 mg at 09/14/24 1003 aspirin (RISA CHEWABLE) chewable tablet 81 mg, 81 mg, G Tube, daily, Kelin Bunn NP, 81 mg at 09/14/24 1002 atorvastatin (LIPITOR) tablet 80 mg, 80 mg, G Tube, daily BEDTIME, Kelin Bunn NP, 80 mg at 09/13/24 2129 budesonide (PULMICORT RESPULE) 0.5 mg/2 mL inhalation solution 0.5 mg, 0.5 mg, Inhalation, resp, daily, Kelin Bunn NP, 0.5 mg at 09/14/24 1103 PARoxetine HCl (PAXIL) tablet 20 mg, 20 mg, G Tube, daily, Kelin Bunn NP, 20 mg at 09/14/24 1003 HYDROcodone-acetaminophen (NORCO) 5-325 mg per tablet 1 Tablet, 1 Tablet, Oral, every 4 hours PRN, Kelin Bunn NP, 1 Tablet at 09/14/24 1449 cefePIME (MAXIPIME) 2,000 mg in sodium chloride 0.9% 50 mL IVPB (MBP), 2,000 mg, IV, every 12 hours(2 times daily), Kelin Bunn NP, Stopped at 09/14/24 1109 VANCOMYCIN CONSULT TO PHARMACY, , See Admin Instructions, see admin instructions, Kelin Bunn NP [COMPLETED] vancomycin in sodium chloride 0.9% (VANCOCIN) 1250 mg/262.5 mL IVPB 1,250 mg, 1,250 mg,IV, ONE time only, Kelin Bunn NP, Stopped at 09/14/24 0035 heparin injection 5,000 Units, 5,000 Units, subCUT, every 8 hours, Kelin Bunn NP, 5,000 Units at 09/14/24 1450 [DISCONTINUED] sodium chloride 0.9 % bolus solution 1,000 mL, 1,000 mL, IV, ONE time only, Humberto Phillip MD PLAN Plan to place midline. Maricarmen Spencer RN INE SIGN WRITER * Rashmi Dumont MD - 09/14/2024 10:07 AM CST [place], [place] ONCOLOGY CONSULTATION NOTE Ventura Elmore is a 49 y.o. female 1975 CSN:[id number] Referring provider: Dr. Garcia Reason for referral Laryngeal cancer History of Present illness: This is an 49 year old female patient of Dr. Domínguez with a history of laryngeal cancer. Patient admitted to [facility] 09/13/2024 for septic shock. Was seen in our office and was found to be hypotensive and tachycardiac and was sent to ED for further evaluation. Currently on levophed for blood pressure support. Patient seen in ICU in bed, on ventilator. Dr Domínguez explained to patient that we would need to do some additional scans for restaging due to the delay with treatment. Will obtain CT chest/abd/pelvis as well as CT soft tissues neck. Will talk with dental hygienist to aide with getting teeth removed so she can proceed with treatment. Patient verbalized understanding and agreement and denies any further questions, concerns or needs at this time. Oncological history 49 y.o. 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 3. Incidental findings as above Dr. Goldberg, radiation oncologist, plans concurrent chemoradiation Oral surgery postponed due to having had lung infection, inability to receive anesthesia for 4 to 6weeks after antibiotic/lung infection. - Admitted to the hospital for septic shock and need for help with placement. Patient unable to care for herself at home. Restaging scans ordered while patient in the hospital. Ventura Elmore is a 49 y.o. female with the [facility] Patient Active Problem List Diagnosis Date Noted Severe sepsis with septic shock (CMS/HCC) 09/13/2024 Hx of laryngeal cancer 09/13/2024 Acute renal failure superimposed on chronic kidney disease 09/13/2024 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 Bipolar disorder, unspecified (CMS/HCC) 04/21/2024 Methamphetamine abuse (CMS/HCC) 04/21/2024 Essential hypertension 04/21/2024 CAD (coronary atherosclerotic disease) 04/21/2024 Acute on chronic diastolic heart failure ([facility]) 04/21/2024 Stridor 04/21/2024 COPD (chronic obstructive pulmonary disease) ([facility]) 04/21/2024 CKD (chronic kidney disease) 04/21/2024 Acute respiratory distress 04/21/2024 Vocal cord paralysis 04/21/2024 Vocal cord polyp 04/21/2024 Community acquired pneumonia of right lower lobe of lung 04/21/2024 Hypertensive emergency 01/09/2024 RADHA (acute kidney injury) 01/09/2024 Elevated brain natriuretic peptide (BNP) level 01/09/2024 No current facility-administered medications on file prior to encounter. Current Outpatient Medications on File Prior to Encounter Medication Sig Dispense Refill ondansetron (ZOFRAN ODT) 8 mg Tablet, Rapid Dissolve Dissolve 1 tablet on top of tongue then swallow with saliva every 8 hours as needed for nausea or vomiting 30 Tablet 0 prochlorperazine maleate (COMPAZINE) 10 mg tablet Take 1 Tablet (10 mg) by mouth every 6 hours as needed for Nausea/Emesis. 30 Tablet 0 dexAMETHasone (DECADRON) 4 mg tablet Take 1 Tablet (4 mg) by mouth 2 times daily. 30 Tablet 0 ALPRAZolam (Xanax) 0.25 mg tablet Take 1 Tablet (0.25 mg) by mouth see administration instructions.Take 1 hour prior to scan. May repeat once as needed. 2 Tablet 0 dexAMETHasone (DECADRON) 4 mg tablet Take 8 mg in the morning on Day 2 followed by 8 mg twice a dayon Days 3-4 of each chemotherapy cycle. 30 Tablet 1 hydrALAZINE (APRESOLINE) 50 mg tablet Take 50 mg by mouth 4 times daily. traMADoL (ULTRAM) 50 mg tablet Take 1 Tablet (50 mg) by mouth every 8 hours as needed for Pain. 21 Tablet 0 risperiDONE (RisperDAL) 2 mg tablet Take 2 mg by mouth daily. atorvastatin (LIPITOR) 80 mg tablet 80 mg by G Tube route daily at bedtime. bisacodyL (DULCOLAX) 10 mg Suppository Insert 10 mg by rectum 1 time daily as needed. budesonide (PULMICORT RESPULE) 0.5 mg/2 mL Suspension for Nebulization Take 0.5 mg by inhalation 2 times daily. aspirin (RISA CHEWABLE) 81 mg Tablet, Chewable 81 mg by G Tube route daily. cloNIDine HCL (CATAPRES) 0.1 mg tablet Take 0.1 mg by mouth daily. clopidogreL (PLAVIX) 75 mg Tablet 75 mg by G Tube route daily. metoprolol tartrate (LOPRESSOR) 25 mg tablet 25 mg by G Tube route 2 times daily. PARoxetine HCl (PAXIL) 20 mg tablet 20 mg by G Tube route daily. nitroglycerin (NITROSTAT) 0.4 mg Tablet, Sublingual Place 0.4 mg under tongue every 5 minutes as needed. lisinopriL (PRINIVIL) 20 mg tablet TAKE ONE TABLET (20 MG) BY MOUTH DAILY. (Patient taking differently: Pt not taking.) 30 Tablet 0 Allergies: Hydromorphone Past Medical History: Diagnosis Date Bipolar disorder (CMS/HCC) 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 Migraine Schizophrenia (CMS/HCC) Past Surgical History: Procedure Laterality Date HX SECTION x 2 HX HYSTERECTOMY HX SURGICAL OTHER mass removal from pelvic x 2 No family history on file. Social History Tobacco Use Smoking status: Every Day Current packs/day: 0.25 Types: Cigarettes Smokeless tobacco: Never Substance Use Topics Alcohol use: No Review of Symptoms: Constitutional: denies fevers, chills, sweats, fatigue Neurological: denies headaches, weakness, visual changes Respiratory: denies cough, dyspnea, nosebleeds Cardiovascular: denies chest pain or discomfort Gastrointestinal: denies abdominal pain, constipation, diarrhea, vomiting Genitourinary: denies dysuria, urinary frequency Hematologic, Oncologic: denies bruising, bleeding, petechiae Lymphatic: denies lymph node swelling, no lumps or bumps Musculoskeletal: denies: myalgia, muscle weakness Skin: denies nail changes or rash PHYSICAL EXAMINATION: Vitals: 09/14/24 0718 BP: Pulse: Resp: Temp: SpO2: 99% PHYSICAL EXAMINATION: General appearance: Alert, in no distress ECOG 2. Head: Atraumatic, normocephalic without obvious abnormality. Eyes: Conjunctivae/corneas clear. PERRL, EOM's intact. Nose: Nares normal. Septum midline. Mucosa normal, no drainage, or sinus tenderness. + tracheostomy tube & ventilator Lungs: Clear to auscultation bilaterally, normal respiratory effort. Heart: Normal rate, regular rhythm, normal S1-S2, no murmurs, rubs, clicks, or gallops. Abdomen: Soft, non-tender. Bowel sounds normal, no masses, no organomegaly. + PEG Tube Extremities: No extremity edema, no redness or tenderness in the calves or thighs, normal strength,normal tone. Pulses: 2+ and symmetric. Skin: Skin color, texture, turgor normal, no rashes, or lesions. LABORATORY/RADIOLOGY DATA: Lab Results Component Value Date/Time WBC 6.9 09/14/2024 07:11 AM HGB 11.7 (L) 09/14/2024 07:11 AM HCT 37.7 09/14/2024 07:11 AM PLT 245 09/14/2024 07:11 AM MCV 96.4 09/14/2024 07:11 AM Lab Results Component Value Date/Time NA 143 09/14/2024 07:11 AM K 4.5 09/14/2024 07:11 AM CL 114 (H) 09/14/2024 07:11 AM CO2 23 09/14/2024 07:11 AM CA 8.2 (L) 09/14/2024 07:11 AM BUN 22 (H) 09/14/2024 07:11 AM CREAT 1.34 (H) 09/14/2024 07:11 AM GLUCOSE 153 (H) 09/14/2024 07:11 AM TOTALPROTEIN 6.7 09/13/2024 04:48 PM ALBUMIN 3.6 09/13/2024 04:48 PM BILITOTAL 0.2 09/13/2024 04:48 PM ALKPHOS 82 09/13/2024 04:48 PM AST 25 09/13/2024 04:48 PM ALT 27 09/13/2024 04:48 PM ANIONGAP 6 (L) 09/14/2024 07:11 AM ASSESSMENT: Principal Problem: Severe sepsis with septic shock (CMS/HCC) Active Problems: Bipolar disorder, unspecified (CMS/HCC) Essential hypertension COPD (chronic obstructive pulmonary disease) (CMS/HCC) CKD (chronic kidney disease) Laryngeal squamous cell carcinoma (CMS/HCC) Hx of laryngeal cancer Acute renal failure superimposed on chronic kidney disease Laryngeal squamous cell carcinoma Patient has declined [...] or pelvis. 3. Incidental findings as above -Dr. Goldberg, radiation oncologist, plans concurrent chemoradiation - Oral surgery postponed due to having had lung infection, inability to receive anesthesia for 4 to6 weeks after antibiotic/lung infection. DENTAL HYGIENIST HEENA TO ASSIST WITH THIS -CT neck, chest/abd/pelvis ordered for restaging purposes - Social work to assist with finding patient placement. Anemia -hgb 11.7 -monitor daily -plan to transfuse for hgb <7 or active bleeding PLAN: -medical management per primary team and appropriate consultants Oncology daily plan: -monitor counts,plan to maynard culture for fever > 100.4 if ANC < 1 -monitor counts, plan to transfuse for hgb <7, plts <10 or active bleeding - CT Chest/abd/pelvis, CT soft tissues neck for restaging purposes - consult to dental hygienist to assist with teeth being pulled - spoke with social work so they can aide with finding appropriate placement for patient. Discharge planning -disposition-TBD per primary team -timeframe-TBD per primary team -criteria-clinical improvement -follow up-TBD pending clinical course This note is prepared by GUY Buckner acting as a scribe for GUY Smalls, 09/14/2024 10:22 AM Patient seen and examined, Agree with Assessment and Plan except for amendments as below Hypotensive and was put on norepinephrine drip, and was in the ICU. UA with no infection, chest x-ray no infection. She is awake alert and oriented. Serum creatinine has shown some improvement to 1.3, after hydration Get restaging CT neck, CT chest abdomen pelvis. Discussed with OMFS Dr Dsouza-plan tooth extraction INpatient, once blood pressure is stable off vasopressors--->Subsequent chemoradiation Patient is interested in placement INE SIGN WRITER INE SIGN WRITER INE SIGN WRITER * Felipa Colon I., RD - 09/14/2024 9:21 AM CSTAssociated Order(s): IP CONSULT TO NUTRITION SERVICES Reason For Nutrition Assessment: Consult, Nutrition Diagnosis Malnutrition Nutrition Diagnosis: (no findings) (09/14/24918) Problem: No nutrition diagnosis at this time (09/14/24918) Malnutrition Impact: Delayed recovery and Increased muscle weakness and fall risk Interventions/Recommendations: Pt is receiving a general diet with adequate po intake this morning. Offer and encourage nutrient dense foods and beverages. [place] requests. Nutrition Interventions: Encourage adequate intake (09/14/24918) Goals: 75-100% of meals, Safe swallow/diet tolerance, Skin integrity/healing, and Tolerate nutrition source See below for full assessment Assessment 49 y.o.female presents with hypotension and hypovolemic shock. She has a history of laryngeal squamous cell carcinoma, COPD, multiple stents, bipolar disorder, migraine, and schizophrenia. The patient has a tracheostomy and a G-tube in place. She has been experiencing shortness of breath for the past week and has not been attending her cancer treatments due to transportation issues. Subjective Global Assessment: Weight: During the past 2 weeks the patient's weight has: Not Changed (09/14/24918) Food Intake: Compared to normal intake, over the past month the patient's intake has been: Unchanged (09/14/24918) Symptoms: Patient reports the following problems that have kept them from eating enough during the past 2 weeks: No problems eating (09/14/24918) Activities & Function: Over the past month the patient generally rates their activity as: : Normal with no limitations (09/14/24918) Total score = SGA Score : 0 (09/14/24918) Nutrition Focused Exam Physical Findings- Summary: Malnutrition Nutrition Diagnosis: (no findings) (09/14/24918) Orbital: Slightly bulged fat pads (no findings) (09/14/24918) Facial cheeks (buccal pads): Full, round, filled out (no findings) (09/14/24918) Biceps and triceps: Minor but noticeable thinning of fat tissue fold (mild) (09/14/24918) Ribs - lower back, mid axillary line: Chest is full, round, ribs do not show (no findings) (09/14/24918) Subcutaneous Fat Loss Assessment: No findings (09/14/24918) Temporal: See/feel well defined muscles (no findings) (09/14/24918) Clavicle: May be visible but not prominent (no findings) (09/14/24918) Shoulder (deltoid muscle): Rounded, curved at junction between neck and shoulder, and at shoulder joint. Able to grasp muscle tissue at shoulder joint (no findings) (09/14/24918) Scapula: Unable to assess (09/14/24918) Interosseous: Muscle bulges (no findings) (09/14/24918) Thigh (quadriceps muscle): Unable to assess (09/14/24918) Knee: Unable to assess (09/14/24918) Calf (gastrocnemius muscle): Unable to assess (09/14/24918) Muscle Wasting Assessment: No findings (09/14/24918) Edema: Normal contour with a barely perceptible pit (no findings) (09/14/24918) Hand Compounder Helper: Strong club manager (no findings) (09/14/24918) Percentage of Energy: Adequate nutrient intake (no findings) (09/14/24918) Percentage of Weight Loss: No history of significant wt loss (09/14/24918) Estimated Needs: Estimated Energy Target: 4029-1609 (09/14/24917) Estimated Protein Target: 70-80 (09/14/24917) Estimated Fluid Target : 5861-3576 (09/14/24917) Nutrition Energy Formula: Calories per kilogram (09/14/24917) Weight Used for Formula: Adjusted body weight (09/14/24917) Clinical Data: Height: 5' 5 (165.1 cm) (09/13/242029) [place] body weight: 57 kg (125 lb 10.6 oz) Adjusted ideal body weight: 68.2 kg (150 lb 5.7 oz) Body mass index is 31.18 kg/m??. Admission:Weight: 85 kg (187 lb 6.3 oz) (09/13/242029) Weight Method: Actual (09/13/242029) Current:Weight: 85 kg (187 lb 6.3 oz) (09/14/24 0300) Wt Readings from Last 8 Encounters: 09/14/24 85 kg (187 lb 6.3 oz) 09/13/24 80.1 kg (176 lb 9.6 oz) 07/13/24 83.3 kg (183 lb 9.6 oz) 07/13/24 82.1 kg (181 lb) 06/22/24 88.5 kg (195 lb) 04/22/24 88.8 kg (195 lb 11.2 oz) 01/09/24 88 kg (194 lb) 07/21/23 90.4 kg (199 lb 6.4 oz) Current Diet and Intake: DIET GENERAL Effective Now Food/Meal: Breakfast (09/14/24 075),Intake (%): 90% (09/14/24 075) ,Intake (%): 90% (09/14/24 075) Allergies: Allergies Allergen Reactions Hydromorphone Dizziness and Headache Past Medical History: Diagnosis Date Bipolar disorder ([facility]) Laryngeal squamous cell carcinoma ([facility]) 07/13/2024 Migraine Schizophrenia ([facility]) Labs Recent Labs 09/13/24 1337 09/13/24 1648 09/14/24 0711 GLUCOSE 140* 94 153* BUN 29* 31* 22* CREAT 1.56* 1.65* 1.34* GFR 40* 37* 48* NA 136 139 143 K 4.1 4.5 4.5 CO2 19* 23 23 ANIONGAP 12 11 6* CA 9.6 9.3 8.2* ALBUMIN 3.4* 3.6 -- ALKPHOS 73 82 -- ALT 23 27 -- AST 31 25 -- BILITOTAL 0.3 0.2 -- Time spent:Consultation Time (mins): 30 mins (09/14/24917) INE SIGN WRITER * Angelica Balbuena RN - 09/14/2024 6:56 AM CSTAssociated Order(s): IP CONSULT TO IV TEAM VASCULAR ACCESS CONSULT PATIENT NAME: Ventura Elmore DATE OF : 1975 CSN: [id number] DATE: 09/14/2024 Room: [address] [place] [address] Admit Date: 09/13/2024 Hospital day: LOS: 1 day INDICATION: Pt./Dr. Preference EXCLUSIONS/CONSIDERATIONS: see history and notes Assessment Allergies Allergen Reactions Hydromorphone Dizziness and Headache Lab Results Component Value Date/Time CREAT 1.65 (H) 09/13/2024 04:48 PM BUN 31 (H) 09/13/2024 04:48 PM NA 139 09/13/2024 04:48 PM K 4.5 09/13/2024 04:48 PM CL 105 09/13/2024 04:48 PM CO2 23 09/13/2024 04:48 PM GFR 37 (L) 09/13/2024 04:48 PM Lab Results Component Value Date/Time WBC 7.2 09/13/2024 04:48 PM HGB 13.8 09/13/2024 04:48 PM HCT 42.6 09/13/2024 04:48 PM PLT 315 09/13/2024 04:48 PM MCV 94.5 09/13/2024 04:48 PM No results found for: INR , PT , PROTIMEPOC Past Medical History: Diagnosis Date Bipolar disorder (CMS/HCC) 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 Migraine Schizophrenia (CMS/HCC) Past Surgical History: Procedure Laterality Date HX SECTION x 2 HX HYSTERECTOMY HX SURGICAL OTHER mass removal from pelvic x 2 Current Facility-Administered Medications: [COMPLETED] sodium chloride 0.9 % bolus solution 1,000 mL, 1,000 mL, IV, ONE time only, Humberto Phillip MD, Stopped at 09/13/241724 norepinephrine bitartrate-D5W (LEVOPHED) 8 mg/250 mL (32 mcg/mL) infusion, 0-0.2 mcg/kg/min, IV, titrate, Humberto Phillip MD, Last Rate: 10.51 mL/hr at 09/14/24322, 0.07 mcg/kg/min at 09/14/24 0323 [COMPLETED] lidocaine (XYLOCAINE) 2 % viscous oral solution 10 mL, 10 mL, Mouth/Throat, ONE time only, Humberto Phillip MD, 10 mL at 09/13/24 1731 [COMPLETED] sodium chloride 0.9 % bolus solution 1,000 mL, 1,000 mL, IV, ONE time only, Humberto Phillip MD, Stopped at 09/13/24 180 sodium chloride 0.9 % infusion, , IV, continuous, Humberto Phillip MD, Last Rate: 150 mL/hr at 09/14/24 034, New Bag at 09/14/24 034 [COMPLETED] morphine 4 mg/mL injection 4 mg, 4 mg, IV, ONE time only, Humberto Phillip MD, 4 mg at09/13/242055 naloxone (NARCAN) 0.4 mg/mL injection 0.1-0.4 mg, 0.1-0.4 mg, IV, see admin instructions, Kelin Bunn NP replacement reminder - Potassium, 1 Each, See Admin Instructions, see admin instructions, Kelin Bunn NP replacement reminder-Magnesium, 1 Each, See Admin Instructions, see admin instructions, Kelin Bunn NP replacement reminder - Phosphorus, 1 Each, See Admin Instructions, see admin instructions, Kelin Bunn NP replacement reminder-Calcium, 1 Each, See Admin Instructions, see admin instructions, Kelin Bunn NP acetaminophen (TYLENOL) tablet 650 mg, 650 mg, Oral, every 6 hours PRN, Kelin Bunn NP ondansetron (ZOFRAN) 4 mg/2 mL injection 4 mg, 4 mg, IV, every 6 hours PRN, Kelin Bunn NP clopidogreL (PLAVIX) tablet 75 mg, 75 mg, G Tube, daily, Kelin Bunn NP aspirin (RISA CHEWABLE) chewable tablet 81 mg, 81 mg, G Tube, daily, Kelin Bunn NP atorvastatin (LIPITOR) tablet 80 mg, 80 mg, G Tube, daily BEDTIME, Kelin Bunn NP, 80 mg at 09/13/242128 budesonide (PULMICORT RESPULE) 0.5 mg/2 mL inhalation solution 0.5 mg, 0.5 mg, Inhalation, resp, daily, Kelin Bunn NP PARoxetine HCl (PAXIL) tablet 20 mg, 20 mg, G Tube, daily, Kelin Bunn NP HYDROcodone-acetaminophen (NORCO) 5-325 mg per tablet 1 Tablet, 1 Tablet, Oral, every 4 hours PRN, Kelin Bunn NP, 1 Tablet at 09/14/24 0528 cefePIME (MAXIPIME) 2,000 mg in sodium chloride 0.9% 50 mL IVPB (MBP), 2,000 mg, IV, every 12 hours(2 times daily), Kelin Bunn NP, Stopped at 09/13/24 215 VANCOMYCIN CONSULT TO PHARMACY, , See Admin Instructions, see admin instructions, Kelin Bunn NP [COMPLETED] vancomycin in sodium chloride 0.9% (VANCOCIN) 1250 mg/262.5 mL IVPB 1,250 mg, 1,250 mg,IV, ONE time only, Kelin Bunn NP, Stopped at 09/14/24 0035 heparin injection 5,000 Units, 5,000 Units, subCUT, every 8 hours, Kelin Bunn NP, 5,000 Units at 09/14/24 0528 [DISCONTINUED] sodium chloride 0.9 % bolus solution 1,000 mL, 1,000 mL, IV, ONE time only, Humberto Phillip MD PLAN Ultrasound labs Angelica Balbuena RN, [facility] INE SIGN WRITER documented in this encounter OR Notes * Operative Report - Reinaldo Dsouza MD - 09/17/2024 3:51 PM CST [place], [place] Patient: VENTURA ELMORE CSN: [id number] : 1975 Provider: Reinaldo Dsouza DDS, OPERATIVE PROCEDURE NOTE DATE OF SERVICE: 09/17/2024 PREOPERATIVE DIAGNOSIS: Nonrestorable remaining maxillary and mandibular teeth pre-radiation. POSTOPERATIVE DIAGNOSIS: Nonrestorable remaining maxillary and mandibular teeth pre-radiation. PROCEDURE PERFORMED: Surgical extraction of her remaining maxillary and mandibular teeth including 6, 11, 13, 16, 17, 20, 22, 23, 26, 27, 28, 29, and 32 with 3 quadrants of alveoloplasty. ANESTHESIA: General via her trach. ESTIMATED BLOOD LOSS: Approximately 25 mL. IV FLUIDS: 1 L of lactated Ringer's solution. SPECIMENS: None. IMPLANTS: None. COMPLICATIONS: None. INDICATIONS FOR PROCEDURE: Ms. Elmore was seen as requested for removal of her teeth pre-radiation while she is inpatient. Risks, benefits, and alternatives to the procedure were discussed with her at length including inferior alveolar nerve risk. Questions were answered to her satisfaction, and she was scheduled for next available OR time. DESCRIPTION OF PROCEDURE: The patient was taken to the operating room suite and placed in a supine position on the operating table. All pressure points were padded. Arms were tucked. General anesthetic was induced smoothly, and the anesthesia circuit was hooked to the patient's trach in usual fashion to perform the general anesthetic. Upon beginning the case, sterilely prepped and draped. Surgeonscrubbed, gowned, and gloved, and a throat pack was introduced. Approximately 10 mL of 2% lidocainewith 1:100,000 epinephrine was administered for local anesthetic. A full gingival flap was raised to the buccal of her remaining maxillary and mandibular teeth, and a minimal amount of bone was removed prior to sectioning and then extraction of her remaining maxillary and mandibular teeth in usual fashion. Alveoloplasty was accomplished with a drill and irrigation prior to closure with 3-0 chromic gut suture. Throat pack was removed. The patient was turned back over to the Anesthesia staff for the uneventful, taken to the postanesthesia care unit in stable condition, where she will be re-admitted for continued monitoring, and we will follow along peripherally. Please call with any questions. Reinaldo Dsouza DDS, MD MMODL D: [phone] V: [id number] cc: INE SIGN WRITER documented in this encounter ED Notes * Nanette Salter RN - 09/13/2024 8:00 PM CST Report called and given to nurse Ramiro on 3E at this time. INE SIGN WRITER * Nanette Salter RN - 09/13/2024 7:30 PM CST Rounded on pt. IV team at pt bedside at this time. INE SIGN WRITER * Nanette Salter RN - 09/13/2024 7:17 PM CST Assumed care of pt, report received from Delaney MISHRA. Rounded on pt, introduced self. Pt currently awake and laying in bed. Pt's breathing even and unlabored, chest rise and fall noted with breathing. Pt voiced no needs at this time. INE SIGN WRITER * Delaney Cabezas RN - 09/13/2024 7:16 PM CST Report given to DANICA Fitzpatrick. INE SIGN WRITER * Delaney Cabezas RN - 09/13/2024 6:46 PM CST This RN rounded on pt at this time. Pt assisted to use the bedpan. Pt infusions started per OCT. Ptdenies any further needs at this time. INE SIGN WRITER * Delaney Cabezas RN - 09/13/2024 6:29 PM CST This RN rounded on pt at this time. Pt helped to use bedpan at this time. Pt denies any further needs. Call light in reach. INE SIGN WRITER * Delaney Cabezas RN - 09/13/2024 5:56 PM CST This RN rounded on pt at this time. Pt linens changed d/t urination. Pt also assisted to use bedpan. Pt given new warm blankets for comfort. Pt denies any further needs. Call light in reach. INE SIGN WRITER * Delaney Cabezas RN - 09/13/2024 5:30 PM CST This RN rounded on pt at this time. Pt given medications per OCT. Pt lights dimmed for comfort. Pt denies any further needs. Call light in reach. INE SIGN WRITER * Delaney Cabezas RN - 09/13/2024 5:25 PM CST This RN notified Dr. Phillip about pt low BP. Orders placed at this time per physician order. INE SIGN WRITER * Delaney Cabezas RN - 09/13/2024 4:52 PM CST Pt presents to Ed via EMS as a HYPOTENSIVE MEDICAL ALERT with chief complaint of hypotensive and shortness of breath. Pt states onset of about an hour ago. Pt states her brought her up to stay at the [facility] to get her appointments figured out. Pt states she thought she had an appointment today and she did not. Pt states she was then seen and had labs drawn and vital signs taken. Pt states her BP was low and the clinic called EMS to bring her into the ER. Pt has a trach. Pt states increasingly worse SOB x 1 week. Pt has hx of multiple stents and COPD. Pt has throat cancer and is currently not receiving any treatment for it. Pt alert and oriented x 4 and appropriate for circumstance. Airway patent, self- maintained with even, non-labored respirations. Pt is short of breath, No cyanosis,no posturing.Cap refill < 3 seconds. Perfusion within normal limits for age. Skin color normal for ethnicity, warm, dry and intact.QUIÑONES. Pt hypotensive, other vital signs stable. Patient reports pain 7/10 on numerical scale and describes pain as sharp and burning. Patient's clothing removed per policy, ensured patient privacy, gown provided to patient. ID band present. Patient in bed, rails up, in low position with wheels locked. Patient informed of plan of care and verbalized understanding and in agreement with plan of care, all questions answered. Comfort measures offered. Monitors on and audible. Pt placed on co founder and ceo, pulse ox and blood pressure. Call light at bedside. Pt encouraged to call with needs. Weapons assessment performed. Education provided regarding facility weapon storage and securement policy. Ivonne Beasley Parul denied possession of any weapons or firearms at this time Reminder: If a weapon is secured on campus, place a copy of this note in the discharge instructions to ensure it is returned upon discharge. INE SIGN WRITER * Humberto Phillip MD - 09/13/2024 4:22 PM CSTAssociated Order(s): Critical Care HISTORY OF PRESENT ILLNESS This note is prepared by Amarilis Castillo acting as a scribe for Humberto Phillip MD. Pt was evaluated in room 01/26 at 4:29 PM. Pt is a 49 y.o. female with a history of HTN and HLD comes via ground ambulance and presents for evaluation of low blood pressure. EMS reports that the pt was at the cancer clinic today and when they took the pt's vitals her bloodpressure came back as 70s/30s. EMS reports that their blood pressure in route showed 70/51. Pt reports that she recently had bronchitis. 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 Pt reports that she has not been to any over her cancer treatments due to nothaving a way to get herself to the appointments. Pt denies fever, chest pain, SOB, or any other symptoms at this time. PAST MEDICAL HISTORY REVIEWED MEDICAL: Patient has a past medical history of Bipolar disorder (CMS/HCC), Laryngeal squamous cell carcinoma(CMS/HCC) (07/13/2024), Migraine, and Schizophrenia (CMS/HCC). SURGICAL: Patient has a past surgical history that includes section; hysterectomy; and surgical other. ALLERGIES Hydromorphone PHYSICAL EXAM INITIAL VS BP: (!) 70/42 (09/13/24 1630), Heart Rate: 82 bpm (09/13/24 1630), Resp: 30 (09/13/24 1630), Pulse:80 (09/13/24 1630), Temp: 98.3 ??F (36.8 ??C) (09/13/24 1700), Temp src: Oral (09/13/24 1700), SpO2: 95 % (09/13/24 1630), Height: (not recorded), Weight: (not recorded), BMI (Calculated): (not recorded) No LMP recorded. Patient has had a hysterectomy. Physical Exam Vitals and nursing note reviewed. Constitutional: General: She is not in acute distress. Appearance: She is not diaphoretic. Comments: Alert, oriented x3, able to follow commands. HENT: Head: Normocephalic and atraumatic. Eyes: General: Right eye: No discharge. Left eye: No discharge. Conjunctiva/sclera: Conjunctivae normal. Neck: Trachea: Tracheostomy present. Comments: Trach collar uncuffed, no surrounding erythema. Cardiovascular: Rate and Rhythm: Normal rate and regular rhythm. Heart sounds: Normal heart sounds. No murmur heard. No friction rub. No gallop. Pulmonary: Effort: Pulmonary effort is normal. No respiratory distress. Breath sounds: Rhonchi present. No wheezing or rales. Comments: Upper airway rhonchi, loudest around trach site. Abdominal: Palpations: Abdomen is soft. Tenderness: There is no abdominal tenderness. Comments: (Abdominal includes GI System Exam as noted) G-tube in place, C/D/I. Musculoskeletal: General: Normal range of motion. Cervical back: Normal range of motion and neck supple. Skin: General: Skin is warm and dry. Neurological: Mental Status: She is alert and oriented to person, place, and time. Psychiatric: Behavior: Behavior normal. DIAGNOSTICS LAB: CBC WITH DIFFERENTIAL - Abnormal Result Value WBC 7.2 RBC 4.51 HEMOGLOBIN 13.8 HEMATOCRIT 42.6 MCV 94.5 MCH 30.6 MCHC 32.4 RDW 13.0 RDW-STDEV 44.4 PLATELETS 315 MPV 9.4 NEUTROPHILS 61 LYMPHOCYTES 29 MONOCYTES 9 EOSINOPHILS 1 BASOPHILS 0 IMMATURE GRANULOCYTES 0 NEUTROPHIL ABSOLUTE 4.41 LYMPHOCYTE ABSOLUTE 2.06 MONOCYTE ABSOLUTE 0.63 (*) EOSINOPHIL ABSOLUTE 0.08 BASOPHILS ABSOLUTE 0.03 IMMATURE GRANULOCYTES ABSOLUTE 0.02 COMPREHENSIVE METABOLIC PANEL - Abnormal SODIUM 139 POTASSIUM 4.5 CHLORIDE 105 CO2 23 CALCIUM 9.3 BUN 31 (*) CREATININE 1.65 (*) GLUCOSE 94 TOTAL PROTEIN 6.7 ALBUMIN 3.6 BILIRUBIN TOTAL 0.2 ALKALINE PHOSPHATASE 82 AST 25 ALT 27 GFR 37 (*) ANION GAP 11 URINALYSIS WITH REFLEX MICROSCOPIC - Abnormal COLOR UA Yellow CLARITY UA Cloudy (*) SPECIFIC GRAVITY UA 1.014 PH UA 5.5 LEUKOCYTE ESTERASE UA 2+ (*) NITRITE UA Negative PROTEIN UA Negative GLUCOSE UA Negative KETONES UA Negative UROBILINOGEN UA <2.0 BILIRUBIN UA Negative BLOOD UA Negative WBC UA 0-2 RBC UA 0-2 BACTERIA UA Negative EPITHELIAL CELLS, URINE 0-5 HYALINE CAST 6-10 (*) TROPONIN BASELINE, 5TH GEN - Abnormal TROPONIN T, BASELINE 5TH GEN 21 (*) LACTIC ACID - Normal LACTIC ACID 1.3 BLOOD CULTURE BLOOD CULTURE BLOOD CULTURE BLOOD CULTURE TROPONIN 2 HR, 5TH GEN EXTRA TUBE (URINE CLEMENTS) RADIOLOGY: XR CHEST PA OR AP 1 VW Radiologist Impression IMPRESSION: Please see below. EXAM: XR CHEST [...] bony abnormality identified. Old right rib fractures. EKG: PROCEDURES Critical Care Performed by: Humberto Phillip MD Authorized by: Humberto Phillip MD Critical care provider statement: Critical care time (minutes): 35 Critical care time was exclusive of: Separately billable procedures and treating other patients Critical care was necessary to treat or prevent imminent or life-threatening deterioration of the following conditions: Shock and dehydration Critical care was time spent personally by me on the following activities: Development of treatmentplan with patient or surrogate, blood draw for specimens, discussions with consultants, discussionswith primary provider, examination of patient, obtaining history from patient or surrogate, ordering and performing treatments and interventions, ordering and review of laboratory studies, ordering and review of radiographic studies, pulse oximetry, re- evaluation of patient's condition and review of old charts I assumed direction of critical care for this patient from another provider in my specialty: no Care discussed with: admitting provider MEDICAL DECISION MAKING AND PLAN OF CARE ED Course as of 09/13/241933Sep 13, 2024 164 RT was called to besides for suction of the patient's tracheostomy. Patient has no retractionsor respiratory distress but does have some upper respiratory rhonchi and would benefit from suction. [MP] 1647 BP(!): 70/42 Will be given total of 2L fluid bolus. Now it is 89 systolic [LA] 1706 After reevaluating, the patients upper rhonchi have resolved and pt is resting comfortably. [MP] 1726 Upon reevaluation the pt presented hypotensive at 60s/40s after a bolus of fluid, plan on giving the pt levophed. [MP] 1754 EKG 12 lead EK, normal sinus rhythm, rate 76 bpm, QTc 506, no acute regional ST-T changes concerning forSTEMI/ANDRES - as read by me [MP] 1755 LACTIC ACID: 1.3 [LA] 1757 BP typeically 130/67 [LA] 1834 UA w/ Reflex Microscopic(!) No UTI [LA] 183 After reevaluation the patients hypotension could be due to hypovalemia secondary to decreasedPO intake. Will turn off levophed and give another liter then reassess. [MP] 183 CREATININE(!): 1.65 1.32 one month ago [LA] [address] Cook (ICU). [MP] 1844 Hxpoxic 88% so placed on 2L NC [LA] 184 TROPONIN T, BASELINE 5TH GEN(!): 21 trend [LA] 193 Discussed the pt with Dr. Cook and they agreed to admit the pt for continued observation. [MP] ED Course User Index [LA] Humberto Phillip MD [MP] Amarilis Castillo, Scribe Clinical Scoring & Consults Prior to obtaining the patient's history, performing the physical exam and reviewing the diagnostics, initial considerations based on the presenting problem included, but were not limited to: Dehydration, cardiac etiology, infection, pulmonary embolus, gastrointestinal bleed, gastroenteritis, abdominal aortic aneurysm, occult trauma, adrenal insufficiency. . By virtue of history (see above), physical exam (see above), prior external notes review of the most recent hospitalist/PCP/customer care voice consultant/procedure/imaging/lab records, diagnostics/vitals performed/interpreted in comparison to others that may be available in the medical record (see above), and ED course (see above), some of these diagnoses can be excluded. The final impression of the visit and disposition is in the chart.. Medications Administered During the ED Stay from 09/13/2024 1622 to 09/13/2024 1934 Date/Time Order Dose Route Action 09/13/2024 1725 MACHINE SIGN WRITER sodium chloride 0.9 % bolus solution 1,000 mL 0 mL IV Stopped 09/13/2024 1651 MACHINE SIGN WRITER sodium chloride 0.9 % bolus solution 1,000 mL 1,000 mL IV Started by Another Clinician 09/13/2024 1730 MACHINE SIGN WRITER norepinephrine bitartrate-D5W (LEVOPHED) 8 mg/250 mL (32 mcg/mL) infusion 0.05 mcg/kg/min IV New Bag 09/13/2024 1731 MACHINE SIGN WRITER lidocaine (XYLOCAINE) 2 % viscous oral solution 10 mL 10 mL Mouth/Throat Given 09/13/2024 1806 MACHINE SIGN WRITER sodium chloride 0.9 % bolus solution 1,000 mL 0 mL IV Stopped 09/13/2024 1736 MACHINE SIGN WRITER sodium chloride 0.9 % bolus solution 1,000 mL 1,000 mL IV New Bag 09/13/2024 1846 MACHINE SIGN WRITER sodium chloride 0.9 % infusion -- IV New Bag . New Prescriptions for this Encounter LAST VS BP: 104/87 (09/13/241909), Heart Rate: 79 bpm (09/13/241909), Resp: 24 (09/13/241918), Pulse: 89(09/13/241918), Temp: 98.3 ??F (36.8 ??C) (09/13/241699), Temp src: Oral (09/13/241699), SpO2: 96 % (09/13/241918) CLINICAL IMPRESSION Final diagnoses: [R57.1] Hypovolemic shock (CMS/HCC) (Primary) [I95.9] Hypotension, unspecified hypotension type [Z85.21] Hx of laryngeal cancer [N17.9, N18.9] Acute renal failure superimposed on chronic kidney disease, unspecified acute renal failure type, unspecified CKD stage DISPOSITION, EDUCATION AND MEDICATION RECONCILIATION Medications reconciled. See after visit summary for patient education on discharged patients. ED Disposition ED Disposition Admit Condition Stable User Humberto Phillip MD Date/Time WedSep 13, 2024 7:30 PM Comment -- ATTESTATION STATEMENTS The scribe's documentation has been prepared under my direction and personally reviewed by me in its entirety. I confirm that the note above accurately reflects all work, treatment, procedures, and medical decision making performed by me. Humberto Phillip MD Portions of this documentation may have been created by an [employer] stars coordinator software. Effort has been done to assure accuracy of stars coordinator. Any obvious errors or omissions should be clarified with the author of the document. Diagnoses Diagnosis Comment Added By Time Added Hypovolemic shock (CMS/HCC) [R57.1] Humberto Phillip MD 09/13/2024 7:30 PM Hypotension, unspecified hypotension type [I95.9] Humberto Phillip MD 09/13/2024 7:31 PM Hx of laryngeal cancer [Z85.21] Humberto Phillip MD 09/13/2024 7:31 PM Acute renal failure superimposed on chronic kidney disease, unspecified acute renal failure type, unspecified CKD stage [N17.9, N18.9] Humberto Phillip MD 09/13/2024 7:31 PM INE SIGN WRITER documented in this encounter Miscellaneous Notes * Care Plan - Katt Parrish LMSW - 09/28/2024 8:48 AM CST Learning Developer Discharge Planning SW received call from attending physician Dr. Garcia inquiring about DC plan. SW shared at this time SW still looking for LTC placement as pt does not have stable home to return to. Barriers for placement at this time include: no income to provide to LTC (no SSI), oncology OP follow up with radiation/chemo, no transportation to appointments, and no other payment method. Pt also currently has level II pending with [facility]. ALTHEA Mccray completed corrections for level II yesterday 09/27 and resubmitted. Now waiting for onsite and approval/denial from [facility] regarding LTC placement. ADD 1103: SW received call from attending physician Dr. Garcia who shared at this time, pt shared shewould rather return home with her spouse. SW spoke with pt directly to ensure she does not want LTCplacement at this time. Pt confirmed that physician was calling her and that she would liketo return home. ADD 1116: SW received secure chat from attending. At this time pt still on airvo. Attempting to wean today/tomorrow. If pt able to tolerate without, pt can return home. If not, placement will still need to be found. LTC facilities cannot accept pt on airvo either, they generally take pts on 5-6L o2, however generally cannot go much higher. SW to continue to monitor. ADD 1517: SW noted DC orders in and pt on 4L o2 at this time. No further CM needs assessed. Expected Discharge Date Oct 03, 2024 Plan Discharge To: Medicaid certified nursing facility (09/21/24 0957) Referrals Status: Facility Referrals - Pending Preferred Pharmacy: [facility] - [address], [address] Patient / Family Communications: Patient/Family Communications: Plan Discharge To Update (09/14/24 1252) Discharge Plan Agreed Upon: Patient (09/14/24 1252) Resources Provided: Resource List Given: Care facilities (09/14/24 1252) Resource List Given To: Patient (09/14/24 1252) Transportation Plan Follow Up Appointments Scheduled Katt Parrish LMSW INE SIGN WRITER INE SIGN WRITER INE SIGN WRITER INE SIGN WRITER * Care Plan - Serene Steven RN - 09/28/2024 3:42 AM CST Problem: Pain, Potential/Actual Goal: Verbalizes/displays acceptable comfort level or baseline comfort level Description: Outcome: Variance Problem: Infection Risk/Actual Goal: Infection Risk/Actual: Infection prevention, control, or resolution by discharge Description: Outcome: Variance Problem: Safety/Fall Goal: Safety/Fall: Absence of fall, injury, harm during hospitalization Description: Absence of/reduce fall risk during current hospitalization related to: 1. History of falls 2. Mobility deficits 3. Medications 4. Mental status/LOC/awareness 5. Toileting needs 6. Volume/electrolyte status 7. Communication/sensory 8. Behavior Outcome: Variance INE SIGN WRITER * Care Plan - Briana Astudillo RN - 09/27/2024 2:01 PM CST Problem: Pain, Potential/Actual Goal: Verbalizes/displays acceptable comfort level or baseline comfort level Description: Outcome: Variance Problem: Infection Risk/Actual Goal: Infection Risk/Actual: Infection prevention, control, or resolution by discharge Description: Outcome: Variance Problem: Discharge Planning Goal: Identify discharge needs upon admission and through discharge Description: Outcome: Variance Problem: Skin Goal: Maintain skin integrity and/or promote wound healing by discharge Outcome: Variance Problem: Infection, Risk/Actual (Adult) Goal: Infection, Risk/Actual: Infection Prevention/Resolution/Control Description: Ventura's midline will remain free from infection. Patient will demonstrate the desired outcomes. Outcome: Variance INE SIGN WRITER * Care Елена - Katt Parrish LMSW - 09/27/2024 10:03 AM CST Learning Developer Discharge Planning ALTHEA continues to work on finding LTC placement for this pt. At this time, [facility] and [facility] have declined. [facility] shared they cannot care for complex pt needs and [facility] sharedthey do not have a bed available at this time. [facility] have declined due to acuity too high and [facility] declined due to no bed available as well. ALTHEA called Fernie with [facility] who shared she would be discussing pt case further with DON and would call this SW back shortly. Expected Discharge Date Oct 03, 2024 Plan Discharge To: Medicaid certified nursing facility (09/21/24 0957) Referrals Status: Facility Referrals - Pending Preferred Pharmacy: [facility] - [place], [place] - [address] [place] [address], [address] Patient / Family Communications: Patient/Family Communications: Plan Discharge To Update (09/14/24 125) Discharge Plan Agreed Upon: Patient (09/14/24 1252) Resources Provided: Resource List Given: Care facilities (09/14/24 1252) Resource List Given To: Patient (09/14/24 1252) Transportation Plan Follow Up Appointments Scheduled Katt Parrish LMSW INE SIGN WRITER * Care Plan - Serene Steven RN - 09/27/2024 3:10 AM CST Problem: Pain, Potential/Actual Goal: Verbalizes/displays acceptable comfort level or baseline comfort level Description: Outcome: Variance Problem: Infection Risk/Actual Goal: Infection Risk/Actual: Infection prevention, control, or resolution by discharge Description: Outcome: Variance Problem: Safety/Fall Goal: Safety/Fall: Absence of fall, injury, harm during hospitalization Description: Absence of/reduce fall risk during current hospitalization related to: 1. History of falls 2. Mobility deficits 3. Medications 4. Mental status/LOC/awareness 5. Toileting needs 6. Volume/electrolyte status 7. Communication/sensory 8. Behavior Outcome: Variance INE SIGN WRITER * Care Plan - Trevor Werner RCP - 09/27/2024 3:03 AM CST Reason for Ventura Elmore Airvo use: [x]Trach Heat and Humidity [x]Acute Flow/O2 therapy Airvo Settings: Oxygen Therapy Flow (L/min): 35 (09/27/24 0250) FIO2%: 30 (09/27/24 0250) HAG/CAG conversion for discharge planning LPM Flow FiO2 6 28 8 30 10 35 12 40 12 50 12 70 12 100 Trevor Werner RCP INE SIGN WRITER * Care Plan - Debbie Kirkpatrick RN - 09/26/2024 5:05 PM CST Pt is alert and oriented Given norco tab for pain per pt request and atarax. Trach intact and provided trach care. Tolerated diet. Flushed peg tube with water and cleaned TF site and applied drsg. Pt is able to oob to BSC independently. Call light within reach Problem: Pain, Potential/Actual Goal: Verbalizes/displays acceptable comfort level or baseline comfort level Description: Outcome: Progressing Pathway Day 1 Through Discharge - Current (INTERDIS PW: MALNUTRITION, ADULT) Nutrition Management: Stabilizing dry weight (dry weight is achieved after fluid volume excess has been resolved if applicable) Outcome: Met Pathway Day 1 Through Discharge - Current (INTERDIS PW: MALNUTRITION, ADULT) Activity: Improving strength and activity tolerance as evidenced by ability to perform ADLs, transfers, and ambulation with stand by assistance or independently Outcome: Met INE SIGN WRITER * Care Plan - Katt Parrish LMSW - 09/26/2024 11:15 AM CST Learning Developer Discharge Planning ALTHEA continues to follow. ALTHEA received voice message from Mi with [facility] who shared they have declined pt as they cannot care for pt needs at this time. ALTHEA sent communication to [facility] to determine if facility has reviewed referral; awaiting response. ALTHEA also called Fernie with [facility] and left voice message; awaiting response. ADD 1130: [facility] shared they are currently denying pt at this time. ALTHEA refaxed to [facility], [place] and [facility] to reconsider. Expected Discharge Date Oct 03, 2024 Plan Discharge To: Medicaid certified nursing facility (09/21/24 4930) Referrals Status: Facility Referrals - Pending Preferred Pharmacy: [facility] - [place], [facility] [address] [place] [address], [address] Patient / Family Communications: Patient/Family Communications: Plan Discharge To Update (09/14/24 1252) Discharge Plan Agreed Upon: Patient (09/14/24 1252) Resources Provided: Resource List Given: Care facilities (09/14/24 1252) Resource List Given To: Patient (09/14/24 1252) Transportation Plan Follow Up Appointments Scheduled Katt Parrish LMSW INE SIGN WRITER INE SIGN WRITER * Patrick Christiansen - Jarvis Howard RCP - 09/25/2024 4:55 PM CST Daily Respiratory Reassessment Note Ventura Elmore 49 y.o. female [id number] Daily respiratory reassessment of ordered therapy was performed. Based upon the finding documented on Doc Flowsheet, therapy ordered will continue the same. Jarvis Howard RCP INE SIGN WRITER * Patrick Christiansen - Jarvis Howard RCP - 09/25/2024 4:54 PM CST Reason for Ventura Elmore Airvo use: [x]Trach Heat and Humidity []Acute Flow/O2 therapy Airvo Settings: 35 Lpm 21 FiO2 HAG/CAG conversion for discharge planning LPM Flow FiO2 6 28 8 30 10 35 12 40 12 50 12 70 12 100 Jarvis Howard RCP INE SIGN WRITER * Care Елена - Shirin Suárez RN - 09/25/2024 2:17 PM CST Problem: Pain, Potential/Actual Goal: Verbalizes/displays acceptable comfort level or baseline comfort level Description: Outcome: Progressing Problem: Infection Risk/Actual Goal: Infection Risk/Actual: Infection prevention, control, or resolution by discharge Description: Outcome: Progressing Problem: Safety/Fall Goal: Safety/Fall: Absence of fall, injury, harm during hospitalization Description: Absence of/reduce fall risk during current hospitalization related to: 1. History of falls 2. Mobility deficits 3. Medications 4. Mental status/LOC/awareness 5. Toileting needs 6. Volume/electrolyte status 7. Communication/sensory 8. Behavior Outcome: Progressing Problem: Discharge Planning Goal: Identify discharge needs upon admission and through discharge Description: Outcome: Progressing Problem: Skin Goal: Maintain skin integrity and/or promote wound healing by discharge Outcome: Progressing Problem: Nutrition/Endocrine Goal: Achieve optimal nutrition and fluid status to meet metabolic needs throughout hospitalization Outcome: Progressing Problem: Infection, Risk/Actual (Adult) Goal: Infection, Risk/Actual: Infection Prevention/Resolution/Control Description: Ventura's midline will remain free from infection. Patient will demonstrate the desired outcomes. Outcome: Progressing Problem: Personal Therapy Goal Goal: Patient's personal therapy goal Description: The patient will tolerate Passy-Milan Valve placement for 4 hours, donning and doffing the device at will, with no s/s of distress while maintaining SpO2 levels @ or above 90%. Outcome: Progressing Problem: Therapy: Dysphagia/Swallow Goal: Tolerates least restrictive diet utilizing swallowing precautions/strategies with no signs/symptoms of aspiration Description: Patient will tolerate Regular diet and IDDSI 0 Normal: (Regular/Thin Liquids) utilizing swallowing precautions with no signs/symptoms of distress with po intake. Outcome: Progressing Problem: Respiratory Goal: Achieve optimal respiratory function by discharge and/or maintain baseline function Outcome: Progressing Problem: Physical Mobility, Impaired Goal: Mobility goal: Improve ambulation by discharge Description: Patient will ambulate 150 feet on level surface, using rolling walker assistive device, with modified independence so patient can navigate discharge environment. Outcome: Progressing Goal: Mobility goal: Ascend/descend stairs by discharge Description: Patient will ascend/descend 3 steps with 1 handrails with modified independence for home/community mobility. Outcome: Progressing Problem: Cardiovascular Goal: Achieve optimal cardiovascular function by discharge or maintain baseline function Outcome: Progressing Problem: Gastrointestinal Goal: Achieve optimal gastrointestinal function by discharge or maintain baseline function Outcome: Progressing Problem: Musculoskeletal Goal: Achieve optimal musculoskeletal function by discharge or maintain baseline function Outcome: Progressing INE SIGN WRITER * Care Plan - Katt Parrish LMSW - 09/25/2024 9:45 AM CST Learning Developer Discharge Planning Complex team asked to follow and review pt. SW noted pt currently awaiting LTC placement. Placementneeding to be close to [place] as pt needing to transport for chemo/radiation. 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 SW received call from Noemy with [facility] who shared theycannot accept pt as they cannot accommodate for pt needs at this time. SW also received communication from Lorraine with [facility] who shared facility cannot accept either, for same reasons. SW to inquire with [facility] about referral status. ADD 0953: Additional referrals sent to [place] and [facility] facilities. Expected Discharge Date Oct 03, 2024 Plan Discharge To: Medicaid certified nursing facility (09/21/24 0959) Referrals Status: Facility Referrals - Pending Preferred Pharmacy: [facility] - [address], [address] Patient / Family Communications: Patient/Family Communications: Plan Discharge To Update (09/14/24 1252) Discharge Plan Agreed Upon: Patient (09/14/24 1252) Resources Provided: Resource List Given: Care facilities (09/14/24 1252) Resource List Given To: Patient (09/14/24 1252) Transportation Plan Follow Up Appointments Scheduled Katt aPrrish LMSW INE SIGN WRITER INE SIGN WRITER INE SIGN WRITER * Care Plan - Kira Ren RCP - 09/24/2024 11:41 AM CST Reason for Ventura [place] Airvo use: [x]Trach Heat and Humidity []Acute Flow/O2 therapy Airvo Settings: 35 Lpm 21 FiO2 HAG/CAG conversion for discharge planning LPM Flow FiO2 6 28 8 30 10 35 12 40 12 50 12 70 12 100 Kira Ren RCP INE SIGN WRITER * Care Plan - Trevor Werner RCP - 09/24/2024 5:43 AM CST Reason for Ventura [place] Airvo use: [x]Trach Heat and Humidity []Acute Flow/O2 therapy Airvo Settings: Oxygen Therapy Flow (L/min): 35 (09/24/24 0525) FIO2%: 21 (09/24/24 0525) HAG/CAG conversion for discharge planning LPM Flow FiO2 6 28 8 30 10 35 12 40 12 50 12 70 12 100 Trevor Werner RCP INE SIGN WRITER * Care Елена - Sweta Blanco RCP - 09/23/2024 10:16 AM CST Sweta Blanco RCP Reason for Ventura [place] Airvo use: [x]Trach Heat and Humidity []Acute Flow/O2 therapy Airvo Settings: 35 Lpm 21 FiO2 HAG/CAG conversion for discharge planning LPM Flow FiO2 6 28 8 30 10 35 12 40 12 50 12 70 12 100 Sweta Blanco RCP INE SIGN WRITER * Patrick Christiansen - Mandy Francois RN - 09/22/2024 1:27 PM CST Problem: Pain, Potential/Actual Goal: Verbalizes/displays acceptable comfort level or baseline comfort level Description: Outcome: Progressing Problem: Infection Risk/Actual Goal: Infection Risk/Actual: Infection prevention, control, or resolution by discharge Description: Outcome: Progressing Problem: Safety/Fall Goal: Safety/Fall: Absence of fall, injury, harm during hospitalization Description: Absence of/reduce fall risk during current hospitalization related to: 1. History of falls 2. Mobility deficits 3. Medications 4. Mental status/LOC/awareness 5. Toileting needs 6. Volume/electrolyte status 7. Communication/sensory 8. Behavior Outcome: Progressing Problem: Discharge Planning Goal: Identify discharge needs upon admission and through discharge Description: Outcome: Progressing Problem: Skin Goal: Maintain skin integrity and/or promote wound healing by discharge Outcome: Progressing Problem: Nutrition/Endocrine Goal: Achieve optimal nutrition and fluid status to meet metabolic needs throughout hospitalization Outcome: Progressing Problem: Infection, Risk/Actual (Adult) Goal: Infection, Risk/Actual: Infection Prevention/Resolution/Control Description: Ventura's midline will remain free from infection. Patient will demonstrate the desired outcomes. Outcome: Progressing Problem: Personal Therapy Goal Goal: Patient's personal therapy goal Description: The patient will tolerate Passy-Milan Valve placement for 4 hours, donning and doffing the device at will, with no s/s of distress while maintaining SpO2 levels @ or above 90%. Outcome: Progressing Problem: Therapy: Dysphagia/Swallow Goal: Tolerates least restrictive diet utilizing swallowing precautions/strategies with no signs/symptoms of aspiration Description: Patient will tolerate Regular diet and IDDSI 0 Normal: (Regular/Thin Liquids) utilizing swallowing precautions with no signs/symptoms of distress with po intake. Outcome: Progressing Problem: Respiratory Goal: Achieve optimal respiratory function by discharge and/or maintain baseline function Outcome: Progressing Problem: Physical Mobility, Impaired Goal: Mobility goal: Improve ambulation by discharge Description: Patient will ambulate 150 feet on level surface, using rolling walker assistive device, with modified independence so patient can navigate discharge environment. Outcome: Progressing Goal: Mobility goal: Ascend/descend stairs by discharge Description: Patient will ascend/descend 3 steps with 1 handrails with modified independence for home/community mobility. Outcome: Progressing Problem: Cardiovascular Goal: Achieve optimal cardiovascular function by discharge or maintain baseline function Outcome: Progressing Problem: Gastrointestinal Goal: Achieve optimal gastrointestinal function by discharge or maintain baseline function Outcome: Progressing Problem: Musculoskeletal Goal: Achieve optimal musculoskeletal function by discharge or maintain baseline function Outcome: Progressing INE SIGN WRITER * Care Plan - Annmarie Manrique RCP - 09/22/2024 10:00 AM CST Reason for Ventura Elmore Airvo use: [x]Trach Heat and Humidity [x]Acute Flow/O2 therapy Airvo Settings: 35 Lpm 30% FiO2 HAG/CAG conversion for discharge planning LPM Flow FiO2 6 28 8 30 10 35 12 40 12 50 12 70 12 100 Annmarie Manrique RCP INE SIGN WRITER * Care Plan - Mahendra Fuentes BSW - 09/22/2024 8:53 AM CST Learning Developer Discharge Planning Expected Discharge Date Oct 03, 2024 Plan Discharge To: Medicaid certified nursing facility (09/21/24956) Level II submitted for pt. Code: [id number] Will need approval from [facility] before admission to LTC facility, continuing search for accepting facility. Will remain IP 1-2 weeks due to state processing. Referrals Status: Facility Referrals - Considering Preferred Pharmacy: [facility] [place], [place] - [address], [address] Patient / Family Communications: Patient/Family Communications: Plan Discharge To Update (09/14/24 125) Discharge Plan Agreed Upon: Patient (09/14/24 125) Resources Provided: Resource List Given: Care facilities (09/14/24 125) Resource List Given To: Patient (09/14/24 125) Transportation Plan Follow Up Appointments Scheduled KALANI Saravia INE SIGN WRITER * Care Plan - Emily Cortes RCP - 09/21/2024 2:58 PM CST Reason for Ventura [place] Airvo use: [x]Trach Heat and Humidity []Acute Flow/O2 therapy Airvo Settings: 35 Lpm 36% FiO2 HAG/CAG conversion for discharge planning LPM Flow FiO2 6 28 8 30 10 35 12 40 12 50 12 70 12 100 Emily Cortes RCP INE SIGN WRITER * Care Plan - Mahendra Fuentes BSW - 09/21/2024 2:44 PM CST Learning Developer Discharge Planning Expected Discharge Date Sep 21, 2024 Plan Discharge To: Medicaid certified nursing facility (09/21/2457) After further review, pt will trigger a level II due to impairment she has from her mental health symptoms. This will take 1-2 weeks to process before can DC. Further review under way to determine ifpt meets point count to qualify for detention level of care since therapy has cleared her for home. Referrals Status: Facility Referrals - Considering Preferred Pharmacy: [facility] - [place], [place] - [address], [address] Patient / Family Communications: Patient/Family Communications: Plan Discharge To Update (09/14/241251) Discharge Plan Agreed Upon: Patient (09/14/241251) Resources Provided: Resource List Given: Care facilities (09/14/24 125) Resource List Given To: Patient (09/14/24 125) Transportation Plan Follow Up Appointments Scheduled KALANI Saravia INE SIGN WRITER INE SIGN WRITER * Care Plan - Mandy Francois RN - 09/21/2024 1:40 PM CST Problem: Pain, Potential/Actual Goal: Verbalizes/displays acceptable comfort level or baseline comfort level Description: Outcome: Progressing Problem: Infection Risk/Actual Goal: Infection Risk/Actual: Infection prevention, control, or resolution by discharge Description: Outcome: Progressing Problem: Safety/Fall Goal: Safety/Fall: Absence of fall, injury, harm during hospitalization Description: Absence of/reduce fall risk during current hospitalization related to: 1. History of falls 2. Mobility deficits 3. Medications 4. Mental status/LOC/awareness 5. Toileting needs 6. Volume/electrolyte status 7. Communication/sensory 8. Behavior Outcome: Progressing Problem: Discharge Planning Goal: Identify discharge needs upon admission and through discharge Description: Outcome: Progressing Problem: Skin Goal: Maintain skin integrity and/or promote wound healing by discharge Outcome: Progressing Problem: Nutrition/Endocrine Goal: Achieve optimal nutrition and fluid status to meet metabolic needs throughout hospitalization Outcome: Progressing Problem: Infection, Risk/Actual (Adult) Goal: Infection, Risk/Actual: Infection Prevention/Resolution/Control Description: Ventura's midline will remain free from infection. Patient will demonstrate the desired outcomes. Outcome: Progressing Problem: Personal Therapy Goal Goal: Patient's personal therapy goal Description: The patient will tolerate Passy-Jeff Valve placement for 4 hours, donning and doffing the device at will, with no s/s of distress while maintaining SpO2 levels @ or above 90%. Outcome: Progressing Problem: Therapy: Dysphagia/Swallow Goal: Tolerates least restrictive diet utilizing swallowing precautions/strategies with no signs/symptoms of aspiration Description: Patient will tolerate Regular diet and IDDSI 0 Normal: (Regular/Thin Liquids) utilizing swallowing precautions with no signs/symptoms of distress with po intake. Outcome: Progressing Problem: Respiratory Goal: Achieve optimal respiratory function by discharge and/or maintain baseline function Outcome: Progressing Problem: Physical Mobility, Impaired Goal: Mobility goal: Improve ambulation by discharge Description: Patient will ambulate 150 feet on level surface, using rolling walker assistive device, with modified independence so patient can navigate discharge environment. Outcome: Progressing Goal: Mobility goal: Ascend/descend stairs by discharge Description: Patient will ascend/descend 3 steps with 1 handrails with modified independence for home/community mobility. Outcome: Progressing Problem: Cardiovascular Goal: Achieve optimal cardiovascular function by discharge or maintain baseline function Outcome: Progressing Problem: Gastrointestinal Goal: Achieve optimal gastrointestinal function by discharge or maintain baseline function Outcome: Progressing Problem: Musculoskeletal Goal: Achieve optimal musculoskeletal function by discharge or maintain baseline function Outcome: Progressing INE SIGN WRITER * Care Plan - Samra Ruvalcaba MSW - 09/20/2024 3:33 PM CST Learning Developer Discharge Planning Expected Discharge Date Sep 18, 2024 Plan Discharge To: Inpatient Rehab Facility;Home with family assist (09/18/24 1014) Referrals Status: Facility Referrals - Pending Spoke to patient over the phone. She states she had housing issues prior to hospital admission. Shestates Trach and Peg are both OLD from AprilMay 2024. She wants to go to Snf for detention care. Explained she would have to go to SNF in [place] due to needing transport to/ from chemo/radiation. She is agreeable to sending referrals out in [place]. Multple SNF referrals sent today. CHOICE FORMCOMPLETED AND PLACED ON CHART. DA124 CODE: [id number] (EMAILED TO DR. KATE) Preferred Pharmacy: [facility] - [address], [address] Patient / Family Communications: Patient/Family Communications: Plan Discharge To Update (09/14/24 1252) Discharge Plan Agreed Upon: Patient (09/14/24 1252) Resources Provided: Resource List Given: Care facilities (09/14/24 1252) Resource List Given To: Patient (09/14/24 1252) Transportation Plan Follow Up Appointments Scheduled LORENA Mejia INE SIGN WRITER INE SIGN WRITER * Query - Arlyn Kate MD - 09/20/2024 2:28 PM CST Please respond within 48 hours. Thank you! The authenticated query note is part of the Legal Health Record Patient Name: Ventura Elmore Admission Date: 09/13/[address] [facility] #: [id number] Dear Doctor, Please continue to document the appropriate diagnosis for the clinical information below, in your Progress Notes, including through the Discharge Summary. Please keep the Problem List updated for continuity of care. (.hprobl or .probhospall) Clinical Indicators: Note: To answer the following question(s), please click EDIT button on the activity bar then click F2 in front of the highlighted area(s). EMS reports that the pt was at the cancer clinic today and when they took the pt's vitals her bloodpressure came back as 70s/30s. EMS reports that their blood pressure in route showed 70/51. Pt reports that she recently had bronchitis. 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 Pt reports that she has not been to any over her cancer treatments due to nothaving a way to get herself to the appointments. Neck: Trachea: Tracheostomy present. Comments: Trach collar uncuffed, no surrounding erythema. Exam: CT CHEST ABDOMEN PELVIS W CONT Reason For Exam: Head/neck cancer, lung met screen. Diagnosis: Hypovolemic shock (CMS/HCC); Hypotension, unspecified hypotension type; Hx of laryngeal cancer; Acute renal failure superimposed on chronic kidney disease, unspecified acute renal failure type, unspecified CKD stage. IMPRESSION: 1. Small areas of atelectasis or consolidation are scattered throughout both lungs. Multifocal pneumonia or aspiration are possibilities. 2. Probable interstitial pulmonary edema and bilateral lungs. 3. Cardiomegaly. 4. Coronary artery atherosclerotic calcifications. 5. Mild mediastinal lymphadenopathy. 6. Possible small hiatal hernia. 7. Three small to moderate-sized fat-containing periumbilical hernias are present. 8. Multiple old, healed right posterior rib fractures. Acute Speech-Language Pathology Modified Barium Swallow Evaluation 09/15/2024 Assessment/Summary of Study Did aspiration occur: No aspiration visualized on MBS, trace penetration to the laryngeal vestibulepresent with thin liquids. Swallow initiation was timely and residue was minimal. Airway protectionwas excellent. Study Summary: Pt presents with mild oropharyngeal dysphagia as confirmed by physiologic impairments noted on MBS. 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 Swallow safety is preserved; swallow efficiency is preserved. Recommend diet initiation of regular textures and thin liquids with STRICT utilization of safe swallowing strategies listed below. Pt will benefit from ongoing SHIPPING RECEIVING CLERK intervention to improve physiologic impairments listed above. If pt is to discharge soon, recommend ongoing SHIPPING RECEIVING CLERK services as intensive as possible in discharge disposition. Spoke with MD of above findings, and MD in agreement. Swallowing Recommendations DIET RECOMMENDATIONS: Regular and IDDSI 0 Normal: (Regular/Thin Liquids) PATIENT SPECIFIC SWALLOWING GUIDELINES: Single, small volume drinks Alternate bites of food with drinks of liquid GENERAL SWALLOWING GUIDELINES: Patient should be seated close to 90 degrees, preferably in the chair Remain upright for 30-60 minutes after meals Take frequent drinks during meals Small sips/bites Eat slowly Minimize distractions during oral intake (conversations/TV) Monitor for signs and symptoms of aspiration Good oral care 3 times every day with toothbrush RSV positive, supportive care. Concern for septic shock on admission, no growth from culture data thus far. She does have poor dentition and this may have also been a possible source. De-escalate from broad-spectrum vancomycin/cefepime to short course of ceftriaxone. Reevaluate if necessary. Pneumonia was also considered as possible source, CT chest on admission mentioned possible scattered consolidations, hence speech therapy has been consulted to evaluate for possible silent aspiration. MBS pending for today. Renal function improving. Oncology following with ongoing workup. Specimen Information: Sputum, suctioned 0 Result Notes Component Ref Range & Units (hover) Coronavirus by PCR Indeterminate Abnormal Comment: Unable to determine presence or absence of Coronavirus (strains 229E, OC43, HKU1, NL63) DNA. This assay does NOT test for CoVID-19. If clinical suspicion is high, recommend ordering a respiratory viral panel and submission of a nasopharyngeal swab for testing. Respiratory syncytial virus by PCR Detected Abnormal Primary Discharge Diagnosis: Laryngeal squamous cell carcinoma ([facility]/HCC) Other Active medical issues also addressed during this admission: Active Hospital Problems Diagnosis Multifocal pneumonia Acute respiratory failure with hypoxia ([facility]) Pneumonia due to respiratory syncytial virus (RSV) Hx of laryngeal cancer Acute renal failure superimposed on chronic kidney disease Laryngeal squamous cell carcinoma ([facility]) Essential hypertension Bipolar disorder, unspecified ([facility]) CKD (chronic kidney disease) COPD (chronic obstructive pulmonary disease) ([facility]) Question: Is there an associated diagnosis related to the above clinical indicators? Infectious pneumonia associated with aspiration Prophylactic antibiotics for non-infectious (chemical) aspiration pneumonitis Other explanation of clinical findings (Specify) Answer: Infectious pneumonia associated with aspiration In responding to this query, please exercise your independent professional judgment. Please be advised that coding regulations for inpatient admissions allow the physician to document presumptive/probable diagnoses. The fact that a question is asked does not imply that any particular answer is desired or expected. Thank you. This query was initiated by Beatrice Hyde [facility] Clinical Documentation [email or web address] INE SIGN WRITER * Care Plan - Marisa Aquino, Physical Therapist - 09/20/2024 2:26 PM MACHINE SIGN WRITER [facility] - Therapy Services 3K Ph. Acute Physical Therapy Treatment 09/20/2024 Room: [address] [place] [address] Name: Ventura Elmore Age: 49 y.o. Date of : 1975 Insurance: Payor: MEDICAID / Plan: [place]ICAID [place] / Product Type: Medicaid / Subjective Information Comments: Patient found in bed upon arrival, agreeable to therapy. Reports up ad desiree to BSC, limited on mobility due to connection to [employer]. Pain: Refer to Doc. Flowsheet for documented pain levels. Vitals Patient on 40L 42%% O2 via trach mask. Placed on tank utilizing venti mask and converter, placed on44% 10L and 15L on tank, all settings utilized due to environmental barriers. Vital signs stable throughout session Functional Mobility/Treatment Therapeutic Activity: supine>EOB: modified Independent EOB>supine: modified Independent sit<>stand: Independent bed<>chair: Independent Gait Training: Gait Trainin feet using rolling walker with modified Independent for increase stability. Deficits affecting function/Deviations noted: none Balance: Static sitting - good without UE support Dynamic sitting - good without UE support Static standing - fair without UE support Dynamic standing - fair without UE support Time Standing - [address] [facility] Basic Mobility How much help from another person does the patient currently need? Score 1. Turning from your back to your side while in a flat bed without using bedrails? 4 - None (independent) 2. Moving from lying on your back to sitting on the side of a flat bed without using bedrails? 4 - None (independent) 3. Moving to and from a bed to a chair (including a wheelchair)? 4 - None (independent) 4. Standing up from a chair using your arms (e.g., wheelchair, or bedside chair)? 4 - None (independent) 5. Walking in hospital room? 3 - A little (supervision to min assist) 6. Climbing 3-5 steps with a railing? 3 - A little (supervision to min assist) Total score 22/24 0-16 - indicates likely facility discharge 17-24 indicates likely community discharge * scores determined based on patient report, observation or professional expertise Assessment and Plan Functional Progress: Patient is progressing towards the goal(s) for functional mobility, transfers,and ambulation. Evidenced by increase ambulation with decrease assistance. Patient does not require skilled PT. Recommend possible change to frequency, collaborating with supervising therapist. Per collaboration with CAPTAIN'S ASSISTANT, pt has met PT goals and is safe for discharge home with assistance. Will complete PT orders at this time. Marisa Aquino, Physical Therapist Recommendations Based on PT assessment of and/or progress with physical function, [facility] Basic Mobility score, potential for improvement, available home support, participation in therapeutic intervention, tolerance for activity, and safety , anticipated discharge disposition: Home with assistance (09/20/241425). Safety concerns if patient is without supervision/assistance. PT Recommended DME: No new DME recommended (09/20/241425). Daily activity recommendations: Up with 1 assist, Ambulate to bathroom with staff, Up in chair for meals, and Ambulation with nursing three times daily Precautions Patient Precautions: Fall Risk, Aspiration, Isolation, and Oxygen Bracing/Orthotics: none Weight Bearing: No Restrictions Education/Training Provided Additional education provided: basic time frames for healing, daily activity with nursing staff, discharge planning, functional mobility, home exercise program, plan of care, pain management, precautions during healing, proper body mechanics, rehabilitation principles, safety, and use of assistive device Learner, method of education, and response to learning listed in Education tab in Epic. Disposition At start of session, patient found lying in bed At end of session, patient left lying in bed, call light in reach, phone in reach, patient instructed to not get up without assistance from staff, and staff notified of patient's location Consent to treatment given by: Patient and Nurse Prior to PT session a thorough chart review was completed, including prior therapy notes, as applicable. Further treatment notes and therapeutic goals can be found in Care Plan Notes. If the patient discharges from the facility before another therapy visit, this shall serve as the therapy discharge summary. Thank you for this referral, Heidy Webb Track Walker Problem: Physical Mobility, Impaired Goal: Mobility goal: Improve ambulation by discharge Description: Patient will ambulate 150 feet on level surface, using rolling walker assistive device, with modified independence so patient can navigate discharge environment. Outcome: Progressing Goal: Mobility goal: Ascend/descend stairs by discharge Description: Patient will ascend/descend 3 steps with 1 handrails with modified independence for home/community mobility. Outcome: Variance INE SIGN WRITER INE SIGN WRITER INE SIGN WRITER * Care Plan - Aliya Asif RCP - 09/19/2024 10:37 PM CST Reason for Venturarobby Elmore Airvo use: [x]Trach Heat and Humidity [x]Acute Flow/O2 therapy Airvo Settings: 60 Lpm 50 FiO2 HAG/CAG conversion for discharge planning LPM Flow FiO2 6 28 8 30 10 35 12 40 12 50 12 70 12 100 Aliya Asif RCP INE SIGN WRITER * Care Plan - Samra Ruvalcaba MSW - 09/19/2024 2:56 PM CST Learning Developer Discharge Planning Expected Discharge Date Sep 18, 2024 Plan Discharge To: Inpatient Rehab Facility;Home with family assist (09/18/24 1014) Referrals Status: Call to patient room. She does not want to put any chemo/ radiation on hold to go to inpatient rehab. Explained that if she went to SNF she would not get any therapies. Provider notes indicate she could start chemo 1 week after dental extraction on 09-17-2024. Have asked that she be reviewed for franchise development manager to follow. [facility] [address], [address] Patient / Family Communications: Patient/Family Communications: Plan Discharge To Update (09/14/24 125) Discharge Plan Agreed Upon: Patient (09/14/24 125) Resources Provided: Resource List Given: Care facilities (09/14/24 1252) Resource List Given To: Patient (09/14/24 1252) Transportation Plan Follow Up Appointments Scheduled LORENA Mejia INE SIGN WRITER * Care Plan - Samra Ruvalcaba MSW - 09/18/2024 10:13 AM CST Learning Developer Discharge Planning Expected Discharge Date Sep 18, 2024 Plan Discharge To: Senior Living Facility (09/14/24 1252) Referrals Status: Call placed into patient room as she has RSV. She is unsure where she wants to go upon discharge. She has medicaid only which would not cover therapy in SNF setting. She does not have any income. We are pending therapy evals at this time and could also offer inpatient rehab as an option depending on therapy recommendations. [facility] [address], [address] Patient / Family Communications: Patient/Family Communications: Plan Discharge To Update (09/14/24 1252) Discharge Plan Agreed Upon: Patient (09/14/24 1252) Resources Provided: Resource List Given: Care facilities (09/14/24 1252) Resource List Given To: Patient (09/14/24 8400) Transportation Plan Follow Up Appointments Scheduled LORENA Mejia INE SIGN WRITER * Care Plan - Minh Valerio RCP - 09/18/2024 8:47 AM CST Reason for Ventura Elmore Airvo use: [x]Trach Heat and Humidity [x]Acute Flow/O2 therapy Airvo Settings: 60 Lpm 50 FiO2 HAG/CAG conversion for discharge planning LPM Flow FiO2 6 28 8 30 10 35 12 40 12 50 12 70 12 100 Minh Valerio RCP INE SIGN WRITER * Care Plan - Gary FranciscoYANIQUE - 09/16/2024 5:49 PM CST Images from the original note were not included. Respiratory Patient Care Assessment S- Pt states she takes Pulmicort once a day and Albuterol twice a day. O- Ventura Elmore is a 49 y.o. female admitted for No admission diagnoses are documented for this encounter. on 09/13/2024 4:22 PM. Social History Tobacco Use Smoking status: Every Day Current packs/day: 0.25 Types: Cigarettes Smokeless tobacco: Never Vaping Use Vaping status: Never Used Substance Use Topics Alcohol use: No Drug use: Yes Types: Marijuana Comment: ediables Prior to Admission medications Medication Sig Start Date End Date Taking? Authorizing Provider ondansetron (ZOFRAN ODT) 8 mg Tablet, Rapid Dissolve Dissolve 1 tablet on top of tongue then swallow with saliva every 8 hours as needed for nausea or vomiting 07/27/24 Gely Astudillo FNP prochlorperazine maleate (COMPAZINE) 10 mg tablet Take 1 Tablet (10 mg) by mouth every 6 hours as needed for Nausea/Emesis. 07/27/24 Gely Astudillo FNP dexAMETHasone (DECADRON) 4 mg tablet Take 1 Tablet (4 mg) by mouth 2 times daily. 07/27/24 Gely Astudillo FNP ALPRAZolam (Xanax) 0.25 mg tablet Take 1 Tablet (0.25 mg) by mouth see administration instructions.Take 1 hour prior to scan. May repeat once as needed. 07/25/24 Rashmi Dumont MD dexAMETHasone (DECADRON) 4 mg tablet Take 8 mg in the morning on Day 2 followed by 8 mg twice a dayon Days 3-4 of each chemotherapy cycle. 07/18/24 Rashmi Dumont MD hydrALAZINE (APRESOLINE) 50 mg tablet Take 50 mg by mouth 4 times daily. Provider, Historical traMADoL (ULTRAM) 50 mg tablet Take 1 Tablet (50 mg) by mouth every 8 hours as needed for Pain. 07/13/24 Rashmi Dumont MD risperiDONE (RisperDAL) 2 mg tablet Take 2 mg by mouth daily. Provider, Historical atorvastatin (LIPITOR) 80 mg tablet 80 mg by G Tube route daily at bedtime. 05/26/24 Provider, Historical bisacodyL (DULCOLAX) 10 mg Suppository Insert 10 mg by rectum 1 time daily as needed. 05/26/24 Provider, Historical budesonide (PULMICORT RESPULE) 0.5 mg/2 mL Suspension for Nebulization Take 0.5 mg by inhalation 2 times daily. 05/26/24 Provider, Historical aspirin (RISA CHEWABLE) 81 mg Tablet, Chewable 81 mg by G Tube route daily. 05/27/24 Provider, Historical cloNIDine HCL (CATAPRES) 0.1 mg tablet Take 0.1 mg by mouth daily. Provider, Historical clopidogreL (PLAVIX) 75 mg Tablet 75 mg by G Tube route daily. 05/27/24 Provider, Historical metoprolol tartrate (LOPRESSOR) 25 mg tablet 25 mg by G Tube route 2 times daily. 05/26/24 Provider,Historical PARoxetine HCl (PAXIL) 20 mg tablet 20 mg by G Tube route daily. 05/27/24 Provider, Historical nitroglycerin (NITROSTAT) 0.4 mg Tablet, Sublingual Place 0.4 mg under tongue every 5 minutes as needed. 05/26/24 Provider, Historical lisinopriL (PRINIVIL) 20 mg tablet TAKE ONE TABLET (20 MG) BY MOUTH DAILY. Patient taking differently: Pt not taking. 09/22/23 Brett Cotton FNP Lab Results Component Value Date/Time WBC 3.5 (L) 09/16/2024 05:28 AM HGB 10.8 (L) 09/16/2024 05:28 AM HCT 35.6 (L) 09/16/2024 05:28 AM PLT 170 09/16/2024 05:28 AM MCV 100.3 09/16/2024 05:28 AM Lab Results Component Value Date/Time NA 137 09/16/2024 04:25 AM K 4.8 09/16/2024 04:25 AM CL 107 09/16/2024 04:25 AM CO2 23 09/16/2024 04:25 AM CA 8.9 09/16/2024 04:25 AM BUN 25 (H) 09/16/2024 04:25 AM CREAT 1.29 (H) 09/16/2024 04:25 AM GLUCOSE 86 09/16/2024 04:25 AM ANIONGAP 7 (L) 09/16/2024 04:25 AM No results found for: CPK , CKMB , TROPONIN , TROPONIINT , TROPINTR Breath sounds reveal coarse crackles . Last chest x-ray reveals FINDINGS: COPD/emphysema. Mildly elevated right hemidiaphragm, unchanged. Bibasilar scarring or atelectasis. No lobar consolidation. No large pleural effusion. No pneumothorax. And limits normal heart size. Mild vascular congestion. No acute bony abnormality identified. Old right rib fractures. Latest spirometry reveals: A- Occasional Bronchospasms. P- Patient educated on purpose and technique of therapy. Based on above, patient will be placed on Bid and PRN Albuterol Nebulizer and Once a day Pulmicort nebulizer per home regimen . Will reassess patient status PRN . Gary Francisco RCP INE SIGN WRITER * Care Plan - Justine Lutz RN - 09/16/2024 10:46 AM CST Problem: Pain, Potential/Actual Goal: Verbalizes/displays acceptable comfort level or baseline comfort level Description: Outcome: Progressing Problem: Infection Risk/Actual Goal: Infection Risk/Actual: Infection prevention, control, or resolution by discharge Description: Outcome: Progressing Problem: Safety/Fall Goal: Safety/Fall: Absence of fall, injury, harm during hospitalization Description: Absence of/reduce fall risk during current hospitalization related to: 1. History of falls 2. Mobility deficits 3. Medications 4. Mental status/LOC/awareness 5. Toileting needs 6. Volume/electrolyte status 7. Communication/sensory 8. Behavior Outcome: Progressing INE SIGN WRITER * Therapy Evaluation - Mahendra Kwong SLP - 09/15/2024 2:27 PM CST [facility] Therapy Services 3K Ph. ; Fax. Acute Speech-Language Pathology Modified Barium Swallow Evaluation 09/15/2024 Room: [address] [place] [address] Name: Ventura Elmore Age: 49 y.o. Date of : 1975 Insurance: Payor: MEDICAID / Plan: [place]ID [place] / Product Type: Medicaid / Patient class: Inpatient Confirmed patient's identification of name and date of : by patient report Consent to treatment given by patient and nurse with results as follows: Onset of illness/injury or date of surgery: 09/13/2024 HPI Ventura Elmore is a 49 y.o. female admitted for hypotension and tachycardia. [place] between [place]/22/2024 through 08/25/2024. Seen by her oncologist today and noted to be hypotensive in office and was transferred to hospital for evaluation. She is homeless, has been staying with a friend. 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 Subjective Information and Clinical Observations Patient/Family Goals Statement: None stated Pain: Refer to Doc Flowsheet for documented pain levels. Level of Alertness: Alert/Responsive Mood/Affect: Patient calm and cooperative Position: Upright Circumstances negatively impacting performance this date: none Diagnostic Intervention Provided Speech Language Pathology Video Fluoro Swallow Objective Information Primary Swallowing Complaint: Clinical swallow evaluation revealed signs of oropharyngeal dysphagiaand concern for aspiration. MBS ordered to define swallow physiology, determine aspiration risk, and develop a treatment plan. Patient has food/contrast allergies: None per patient or chart review. Diet prior to MBS: Regular and IDDSI 0 Normal: (Regular/Thin Liquids) Patient has PEG Tube, Supplemental oxygen at 40 L/min at 40% Fi02 via Trach mask, and Tracheostomy tube: Shiley Cuffless, size 6 Referring Provider: Savannah Garcia MD Fluoroscopy Conditions Lateral View: thin liquid, puree-thin, puree-thick, semi-solid, and solid Anterior/Posterior View: not performed Position: seated upright C-arm utilized to perform MBS: Yes Oral Mucosa: moist, pink Secretion Management: swallows own secretions Dentition: missing teeth The patient self fed during the session. Anatomic view under fluoroscopy: Per radiology MONOTYPE CASTER, Mild impression on the posterior cervical spinesecondary to cervical spine degenerative change and bridging osteophyte formation. Oral Phase Functional Oral Phase Comments: Oral phase judged to be largely within functional limits. Tongue control during bolus hold was function, as indicated by cohesive bolus between the tongue to palatal seal. Mastication was timely and efficient. A/P lingual motion was brisk during bolus transport. Oral clearance was complete, with the exception of mild tongue base residue. Pharyngeal Phase abnormal mild Observations: delayed initiation of the pharyngeal swallow, minimal vallecular pooling, and minimalvallecular stasis Pharyngeal Phase Comments: Delayed initiation of the pharyngeal swallow with the head of the bolus reaching the valleculae with thin liquids only. Laryngeal elevation judged to be WFL. Anterior hyoidexcursion and epiglottic inversion judged to be WFL. Minimal pharyngeal residue noted. Repeat swallows reduced majority of the pharyngeal residue. Penetration/Transglottic Aspiration THIN LIQUID Penetration occurred: Yes, during trials presented via open cup and straw Aspiration occurred: No Rosenbek Penetration score of 3. Material enters the airway, remains above the vocal folds, and is not ejected from the airway. Patient response: no. THIN PUREE, THICK PUREE, SEMI-SOLID, SOLID Penetration occurred: No Aspiration occurred: No Rosenbek Penetration score of 1. Material does not enter airway Swallowing Strategies and Interventions Alternation of liquid and solid boluses Assessment/Summary of Study Did aspiration occur: No aspiration visualized on MBS, trace penetration to the laryngeal vestibulepresent with thin liquids. Swallow initiation was timely and residue was minimal. Airway protectionwas excellent. Study Summary: Pt presents with mild oropharyngeal dysphagia as confirmed by physiologic impairments noted on MBS. 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 Swallow safety is preserved; swallow efficiency is preserved. Recommend diet initiation of regular textures and thin liquids with STRICT utilization of safe swallowing strategies listed below. Pt will benefit from ongoing SHIPPING RECEIVING CLERK intervention to improve physiologic impairments listed above. If pt is to discharge soon, recommend ongoing SHIPPING RECEIVING CLERK services as intensive as possible in discharge disposition. Spoke with MD of above findings, and MD in agreement. Swallowing Recommendations DIET RECOMMENDATIONS: Regular and IDDSI 0 Normal: (Regular/Thin Liquids) PATIENT SPECIFIC SWALLOWING GUIDELINES: Single, small volume drinks Alternate bites of food with drinks of liquid GENERAL SWALLOWING GUIDELINES: Patient should be seated close to 90 degrees, preferably in the chair Remain upright for 30-60 minutes after meals Take frequent drinks during meals Small sips/bites Eat slowly Minimize distractions during oral intake (conversations/TV) Monitor for signs and symptoms of aspiration Good oral care 3 times every day with toothbrush Recommendations DISCHARGE RECOMMENDATIONS: Home and with assistance Recommendations for referral to another service: None at this time Precautions Plan of Care Patient precautions: Isolation Continue SHIPPING RECEIVING CLERK services to address swallowing deficits (dysphagia), anticipate follow up in the next 5-10 days or as medical condition changes. Plan of care to continue for the duration of the patient's acute care hospital stay or until goals are met. Please notify speech therapy department should the patient's condition change and/or patient requires SHIPPING RECEIVING CLERK services prior to the next anticipated SHIPPING RECEIVING CLERK visit. Education Disposition Regarding: results and recommendations of MBS, risk of aspiration with po intake, implications of aspiration, rationale of MBS, rationale of diet modification options, rationale of recommended diet, strategies to increase safety with po intake, and speech therapy plan of care Learner, method of education, and response to learning listed in Education tab in Epic Before session: Patient brought to radiology by optoelectronic technician After session: Patient transferred to cart and returned to room by optoelectronic technician Current Diagnoses/Past Medical History Pertinent diagnoses and past medical history related to this hospital stay are present in physicianH&P and physician daily notes. Prior to session, completed thorough chart review. Reviewed prior therapy treatment notes as applicable. Further treatment notes and therapeutic goals can be found in Care Plan Notes. If the patient discharges from facility prior to another therapy visit, this shall serve as the therapy discharge summary Thank you for this referral, Mahendra Kwong M.S. [facility]-SHIPPING RECEIVING CLERK Acute Speech Therapy Charge Zone Phone #[phone] Acute Speech Therapy Charge Pager #[phone] INE SIGN WRITER * Care Plan - Maricarmen Spencer RN - 09/14/2024 4:40 PM CST Problem: Infection, Risk/Actual (Adult) Goal: Infection, Risk/Actual: Infection Prevention/Resolution/Control Description: Ventura's midline will remain free from infection. Patient will demonstrate the desired outcomes. Outcome: Progressing INE SIGN WRITER * Care Plan - Nela Lomeli RN - 09/14/2024 8:32 AM CST Care Management Initial Assessment Initial Discharge Planning Assessment completed. Discussed Care Management's role and Discharge planning. Discharge Plan: Plan Discharge To: Senior Living Facility Does the patient have family and/or a caregiver that is willing, able and available to assist if needed? Yes - Name/Relation:son Angel, daughter David Comments: Patient admitted for severe sepsis with septic shock. Requiring Airvo, iv levophed. CM spoke to patient about discharge plan. Patient would like to go to fdc or long lines operator care facility at discharge to help with her recovery. Her current home environment is not suitable for recovery. Provided a list of nursing facilities here in [place] and in [place] for her to review. Prior to admission the patient lives at home with spouse. CM will continue to follow and assist with discharge. Patient Discharge Planning Goal: to find placement at facility. Patient will potentially discharge to a SNF/NH? Yes Care Management visited with: patient via in person. Prior to admission, patient resides at: Mobile home. Patient resides in a 1 story home with 3 stairs to enter. Patient's bedroom and bathroom are located on the 1 floor. Prior to admission, living arrangements: spouse. Prior to admission, patient's functional level:independent; uses N/A for mobility; needs assistancewith iADLs: N/A Community Ambulator: yes Prior to admission, the patient has the following DME? N/A Services in the home/community: none Receives hemodialysis? No Emergency contact(s): Extended Emergency Contact Information Primary Emergency Contact: Saleem Elmore [facility] Relation: Spouse Secondary Emergency Contact: Angel Santos Mobile Relation: Son Mother: RUIZ PENA [facility] Prescription coverage: yes Preferred Pharmacy verified: [facility] - [place], [place] - [address], [address] Insurance coverage verified: Payor: MEDICAID / Plan: [place] / Product Type: Medicaid / Secondary Insurance:N/A Medicaid Status: no spend down Has VA Benefits: no Employment Status: not employed PCP verified as: Anu Thompson DO Patient has not had a stay at an acute care hospital in the last 30 days. Recent Falls?: Last Known Fall: No falls Plan for transportation at discharge: TBD Care Management contact information provided. Care Management will continue to follow and assist asneeded. INE SIGN WRITER * Gen AI ED Handoff - GENERATIVE AI HANDOFF NOTE - 09/13/2024 8:05 PM MACHINE SIGN WRITER ##Situation##: Patient ( ) is a 49-year-old female who has been in the ER for 3 hours. She came to the ER due to shortness of breath blood pressure . The patient's most recent care team on record included: Nanette Salter. ##Background##: Drips the patient are on include: norepinephrine, last started at 2024-09-13 17:30:38. This patient has allergies to Hydromorphone. ##Assessment##: Patient's most recent vitals recorded in flowsheets were as follows: *BP: 103/81 *Temp: 36.8C, 98.2F *Resp: 14 *Pulse oximetry: 95% *Pulse: 71 Lines most recently placed include: angiocath at 2024-09-13 16:52:41. Last recorded oxygen source was high humidity high flow system. The patient presents with hypotension and hypovolemic shock. She has a history of laryngeal squamous cell carcinoma, COPD, multiple stents, bipolar disorder, migraine, and schizophrenia. The patient has a tracheostomy and a G-tube in place. She has been experiencing shortness of breath for the past week and has not been attending her cancer treatments due to transportation issues. The patient also has acute renal failure superimposed on chronic kidney disease. ##Recommendation##: Continue monitoring the patient's blood pressure and respiratory status. Administer fluid boluses as needed to manage hypotension. Discontinue levophed if hypotension is due to hypovolemia and reassess after additional fluids. Monitor renal function and manage acute renal failure. Ensure the tracheostomy is properly maintained and suction as needed. Place the patient on 2L nasal cannula for hypoxia. Consult with the ICU team for continued observation. Administer medications as per MAR, including sodium chloride bolus and norepinephrine. Ensure the patient is comfortable, with linens changed and warm blankets provided. Educate the patient on the plan of care and ensure all questions are answered. Place the patient on a co founder and ceo, pulse oximetry, and blood pressure monitoring. Encourage the patient to call with any needs and ensure the call light is within reach. This summary was created by [employer]ODRIG[employer]. The responses are meant to enhance, not replace normal workflow. Please contact the ED nurse for any follow up or additional information. INE SIGN WRITER * ED Bed Hold Comment Note - Nicolle Santiago RN - 09/13/2024 4:22 PM MACHINE SIGN WRITER Bed: 06 Expected date: 09/13/24 Expected time: 4:15 PM Means of arrival: Comments: 3112: 49F cancer, hypotensive. INE SIGN WRITER documented in this encounter Plan of Treatment Upcoming Encounters Date Type Department Care Team (Late st Contact Info) Description 10/16/2024 11:00 AM MACHINE SIGN WRITER Appointment [facility] Oncology Infusion [facility] [place] [address] [place] [address] Rashmi Dumont MD [address] [place] [address] [facility] Oncology, Infusion 8 10/16/2024 1:45 PM MACHINE SIGN WRITER Appointment [facility] Radiation Oncology [facility] [address] [place] [address] Karla Goldberg MD [address] [place] [phone] 10/17/2024 1:45 PM MACHINE SIGN WRITER Appointment [address] [phone] Karla Goldberg MD [address] [place] [phone] 10/18/2024 1:45 PM MACHINE SIGN WRITER Appointment [address] [phone] Karla Goldberg MD [address] [place] [phone] 10/19/2024 1:45 PM MACHINE SIGN WRITER Appointment [address] [phone] Karla Goldberg MD [address] [place] [phone] 10/20/2024 1:45 PM MACHINE SIGN WRITER Appointment [address] [phone] Karla Goldberg MD [address] [place] [phone] 10/23/2024 1:45 PM MACHINE SIGN WRITER Appointment [address] [phone] Karla Goldberg MD [address] [place] [phone] 10/24/2024 11:30 AM MACHINE SIGN WRITER Office Visit [facility] Ear Nose and Throat Head [facility] [address] [place] [address] Chris Flores MD [address] [place] [address] 646- 10/24/2024 1:45 PM MACHINE SIGN WRITER Appointment [address] [phone] Karla Goldberg MD [address] [place] [phone] 10/25/2024 1:45 PM MACHINE SIGN WRITER Appointment [address] [phone] Karla Goldberg MD [address] [place] [phone] 10/26/2024 1:45 PM MACHINE SIGN WRITER Appointment [address] [phone] Karla Goldberg MD [address] [place] [phone] 10/27/2024 1:45 PM MACHINE SIGN WRITER Appointment [address] [phone] Karla Goldberg MD [address] [place] [phone] 10/30/2024 1:45 PM CDT Appointment [address] [phone] Karla Goldberg MD [address] [place] [phone] 10/31/2024 1:45 PM CDT Appointment [address] [phone] Karla Goldberg MD [address] [place] [phone] 11/01/2024 1:45 PM CDT Appointment [address] [phone] Karla Goldberg MD [address] [place] [phone] 11/02/2024 1:45 PM CDT Appointment [address] [phone] Karla Goldberg MD [address] [place] [phone] 11/03/2024 1:45 PM CDT Appointment [address] [phone] Karla Goldberg MD [address] [place] [phone] 11/06/2024 1:45 PM CDT Appointment [address] [phone] Karla Goldberg MD [address] [place] [phone] 11/07/2024 1:45 PM CDT Appointment [address] [phone] Karla Goldberg MD [address] [place] [phone] 11/08/2024 1:45 PM CDT Appointment [address] [phone] Karla Goldberg MD [address] [place] [phone] 11/09/2024 1:45 PM CDT Appointment [address] [phone] Karla Goldberg MD [address] [place] [phone] 11/10/2024 1:45 PM CDT Appointment [address] [phone] Karla Goldberg MD [address] [place] [phone] 11/13/2024 1:45 PM CDT Appointment [address] [phone] Karla Goldberg MD [address] [place] [phone] 11/14/2024 1:45 PM CDT Appointment [place] [address] [place] [address] Karla Goldberg MD [address] [place] [phone] 11/15/2024 12:45 PM CDT Appointment [address] [phone] Karla Goldberg MD [address] [place] [phone] 11/16/2024 12:45 PM CDT Appointment [address] [phone] Karla Goldberg MD [address] [place] [phone] 11/17/2024 1:45 PM CDT Appointment [address] [phone] Karla Goldberg MD [address] [place] [phone] 11/20/2024 1:45 PM CDT Appointment [address] [phone] Karla Goldberg MD [address] [place] [phone] 11/21/2024 1:45 PM CDT Appointment [address] [phone] Karla Goldberg MD [address] [place] [phone] 11/22/2024 1:45 PM CDT Appointment [address] [phone] Karla Goldberg MD [address] [place] [phone] 11/23/2024 1:45 PM CDT Appointment [address] [phone] Karla Goldberg MD [address] [place] [phone] 11/24/2024 1:45 PM CDT Appointment [address] [phone] Karla Goldberg MD [address] [place] [phone] 11/27/2024 1:45 PM CDT Appointment [address] [phone] Karla Goldberg MD [address] [place] [phone] 11/28/2024 1:45 PM CDT Appointment [address] [phone] Karla Goldberg MD [address] [place] [phone] documented as of this encounter Procedures Procedure Name Priority Date/Time Associated Diagnosis Comments TELEMETRY REPORT 09/29/2024 2:56 AM MACHINE SIGN WRITER CBC WITH DIFFERENTIAL Routine 09/28/2024 4:17 AM MACHINE SIGN WRITER BASIC METABOLIC PANEL Routine 09/28/2024 4:17 AM MACHINE SIGN WRITER BASIC METABOLIC PANEL Routine 09/27/2024 9:24 AM MACHINE SIGN WRITER CBC WITH DIFFERENTIAL Routine 09/27/2024 5:53 [address] GUIDED RAD THERAPY FIELD Routine 09/26/2024 3:22 PM MACHINE SIGN WRITER CBC WITH DIFFERENTIAL Routine 09/26/2024 4:02 AM MACHINE SIGN WRITER BASIC METABOLIC PANEL Routine 09/26/2024 4:02 AM MACHINE SIGN WRITER EKG 12-LEAD Stat 09/25/2024 10:14 AM MACHINE SIGN WRITER TSH Routine 09/25/2024 2:32 AM MACHINE SIGN WRITER PHOSPHORUS Routine 09/25/2024 2:32 AM MACHINE SIGN WRITER MAGNESIUM LEVEL Routine 09/25/2024 2:32 AM MACHINE SIGN WRITER BASIC METABOLIC PANEL Routine 09/25/2024 2:32 AM MACHINE SIGN WRITER CBC WITH DIFFERENTIAL Routine 09/25/2024 2:31 AM MACHINE SIGN WRITER EKG 12-LEAD Routine 09/24/2024 8:35 AM MACHINE SIGN WRITER BASIC METABOLIC PANEL Routine 09/23/2024 5:53 AM MACHINE SIGN WRITER BASIC METABOLIC PANEL Routine 09/22/2024 4:33 AM MACHINE SIGN WRITER BASIC METABOLIC PANEL Routine 09/21/2024 4:59 AM MACHINE SIGN WRITER CBC WITH DIFFERENTIAL Routine 09/20/2024 12:54 AM MACHINE SIGN WRITER BASIC METABOLIC PANEL Routine 09/20/2024 12:54 AM MACHINE SIGN WRITER CBC WITH DIFFERENTIAL Routine 09/19/2024 3:55 AM MACHINE SIGN WRITER BASIC METABOLIC PANEL Routine 09/19/2024 3:55 AM MACHINE SIGN WRITER ECHO COMPLETE Routine 09/18/2024 11:15 AM MACHINE SIGN WRITER OT EVAL AND TREAT Pending Discharge 09/18/2024 8:00 AM MACHINE SIGN WRITER PT EVAL AND TREAT Pending Discharge 09/18/2024 8:00 AM MACHINE SIGN WRITER CBC WITHOUT DIFFERENTIAL Routine 09/18/2024 3:22 AM MACHINE SIGN WRITER HOME O2 EVAL (DESATURATION SCREEN) Pending Discharge 09/18/2024 12:16 AM MACHINE SIGN WRITER POC GLUCOSE Routine 09/17/2024 1:49 PM MACHINE SIGN WRITER TEETH MULTIPLE EXTRACTION 09/17/2024 11:20 AM MACHINE SIGN WRITER N/A CBC WITHOUT DIFFERENTIAL Routine 09/17/2024 4:00 AM MACHINE SIGN WRITER RENAL FUNCTION PANEL Routine 09/17/2024 4:00 AM MACHINE SIGN WRITER RT ASSESS AND TREAT Routine 09/16/2024 4 :21 PM MACHINE SIGN WRITER EKG 12-LEAD Routine 09/16/2024 7:32 AM MACHINE SIGN WRITER CBC WITHOUT DIFFERENTIAL Routine 09/16/2024 5:28 AM MACHINE SIGN WRITER HEPATIC FUNCTION PANEL Routine 09/16/2024 4:25 AM MACHINE SIGN WRITER BASIC METABOLIC PANEL Routine 09/16/2024 4:25 AM MACHINE SIGN WRITER DRUG SCREEN, URINE Routine 09/15/2024 10 :41 PM MACHINE SIGN WRITER XR VIDEO SWALLOW W SPEECH Routine 09/15/2024 2:43 PM MACHINE SIGN WRITER CBC WITHOUT DIFFERENTIAL Routine 09/15/2024 3:48 AM MACHINE SIGN WRITER PHOSPHORUS Routine 09/15/2024 3:48 AM MACHINE SIGN WRITER MAGNESIUM LEVEL Routine 09/15/2024 3:48 AM MACHINE SIGN WRITER BASIC METABOLIC PANEL Routine 09/15/2024 3:[address] SOFT TISSUE NECK W CONTRAST Routine 09/14/2024 5:[address] CHEST ABDOMEN PELVIS W CONT Routine 09/14/2024 5:03 PM MACHINE SIGN WRITER SHIPPING RECEIVING CLERK EVALUATION Routine 09/14/2024 2:38 PM MACHINE SIGN WRITER PNEUMONIA PATHOGEN PCR PANEL Routine 09/14/2024 11:29 AM MACHINE SIGN WRITER SPUTUM CULTURE WITH GRAM STAIN Routine 09/14/2024 11:29 AM MACHINE SIGN WRITER CBC WITHOUT DIFFERENTIAL Routine 09/14/2024 7:11 AM MACHINE SIGN WRITER VANCOMYCIN LEVEL RANDOM Routine 09/14/2024 7:11 AM MACHINE SIGN WRITER BASIC METABOLIC PANEL Routine 09/14/2024 7:11 AM MACHINE SIGN WRITER SPUTUM CULTURE WITH GRAM STAIN Routine 09/14/2024 6:29 AM MACHINE SIGN WRITER TROPONIN 6 HR, 5TH GEN Timed Study 09/14/2024 12:04 AM MACHINE SIGN WRITER LACTIC ACID Stat 09/14/2024 12:04 AM MACHINE SIGN WRITER POC GLUCOSE Routine 09/13/2024 9:40 PM MACHINE SIGN WRITER RESPIRATORY PATHOGEN PCR PANEL Routine 09/13/2024 9:32 PM MACHINE SIGN WRITER TROPONIN 2 HR, 5TH GEN Timed Study 09/13/2024 7:43 PM MACHINE SIGN WRITER RESPIRATORY THERAPY COMMUNICATION Stat 09/13/2024 7:18 PM MACHINE SIGN WRITER EXTRA TUBE (URINE CLEMENTS) Stat 09/13/2024 5:56 PM MACHINE SIGN WRITER URINALYSIS W/REFLEX MICROSCOPIC Stat 09/13/2024 5:56 PM MACHINE SIGN WRITER EKG 12-LEAD Stat 09/13/2024 5:51 PM MACHINE SIGN WRITER XR CHEST PA OR AP 1 VW Stat 09/13/2024 5:12 PM MACHINE SIGN WRITER TROPONIN BASELINE, 5TH GEN Stat 09/13/2024 4:48 PM MACHINE SIGN WRITER BLOOD CULTURE Stat 09/13/2024 4:48 PM MACHINE SIGN WRITER BLOOD CULTURE Stat 09/13/2024 4:48 PM MACHINE SIGN WRITER LACTIC ACID Stat 09/13/2024 4:48 PM MACHINE SIGN WRITER CBC WITH DIFFERENTIAL Stat 09/13/2024 4:48 PM MACHINE SIGN WRITER BLOOD CULTURE Stat 09/13/2024 4:48 PM MACHINE SIGN WRITER BLOOD CULTURE Stat 09/13/2024 4:48 PM MACHINE SIGN WRITER COMPREHENSIVE METABOLIC PANEL Stat 09/13/2024 4:48 PM MACHINE SIGN WRITER RT ASSESS AND TREAT Stat 09/13/2024 4 :43 PM MACHINE SIGN WRITER CRITICAL CARE Routine 09/13/2024 4:22 PM MACHINE SIGN WRITER documented in this encounter Results * TELEMETRY REPORT (09/29/2024 2:56 AM MACHINE SIGN WRITER) us Provider Scanning ECG ORDERABLES Final Result * (ABNORMAL) BASIC METABOLIC PANEL (09/28/2024 4:17 AM MACHINE SIGN WRITER) SODIUM 140 136 - 145 mmol/L 09/28/2024 6:04 AM MACHINE SIGN WRITER [facility] POTASSIUM 4.0 3.5 - 5.1 mmol/L 09/28/2024 6:04 AM MACHINE SIGN WRITER [facility] CHLORIDE 105 98 - 107 mmol/L 09/28/2024 6:04 AM [facility] CO2 25 22 - 29 mmol/L 09/28/2024 6:04 AM [facility] CALCIUM 8.8 8.6 - 10.0 mg/dL 09/28/2024 6:04 AM [facility] BUN 31(H) 6 - 20 mg/dL 09/28/2024 6:04 AM [facility] CREATININE 1.42(H) 0.51 - 0.95 mg/dL 09/28/2024 6:04 AM [facility] GLUCOSE 112(H) 74 - 99 mg/dL 09/28/2024 6:04 AM [facility] GFR 45(L) >=60 mL/min/1. 73 sq meter 09/28/2024 6:04 AM [facility] Comment:eGFR calculated with 2020 CKD-EPI equation. Vegetarian diet, extremely high or low muscle mass, and may affect results. Cystatin C with Glomerular Filtration Rate is a suitable alternative for these patients. ANION GAP 10 9 - 20 mmol/L 09/28/2024 6:04 AM [facility] Blood Venipuncture / Unknown 09/28/2024 4:17 AM MACHINE SIGN WRITER 09/28/2024 5:29 AM [facility] us Arlyn Kate MD CHEMISTRY ORDERABLES Final Res [facility] [id number] [address] [place] [address] * (ABNORMAL) CBC WITH DIFFERENTIAL (09/28/2024 4:17 AM MACHINE SIGN WRITER) [facility] WBC 6.0 4.8 - 10.8 K/uL 09/28/2024 5:54 AM [facility] RBC 3.61(L) 4.20 - 5.40 M/uL 09/28/2024 5:54 AM [facility] HEMOGLOBIN 10.9(L) 12.0 - 16.0 g/dL 09/28/2024 5:54 AM [facility] BackType [facility] HEMATOCRIT 33.9(L) 36.0 - 46.0 % 09/28/2024 5:54 AM [facility] MCV 93.9 84.0 - 103.0 fL 09/28/2024 5:54 AM [facility] MCH 30.2 27.0 - 34.0 pg 09/28/2024 5:54 AM [facility] MCHC 32.2 30.0 - 35.0 g/dL 09/28/2024 5:54 AM [facility] BackType [facility] RDW 13.3 11.0 - 14.5 % 09/28/2024 5:54 AM [facility] RDW-STDEV 45.7 37.0 - 54.0 fL 09/28/2024 5:54 AM [facility] PLATELETS 207 140 - 440 K/uL 09/28/2024 5:54 AM [facility] BackType [facility] MPV 10.5 8.9 - 12.8 fL 09/28/2024 5:54 AM [facility] NEUTROPHILS 54 42 - 75 % 09/28/2024 5:54 AM [facility] LYMPHOCYTES 33 24 - 44 % 09/28/2024 5:54 AM [facility] MONOCYTES 11(H) 2 - 10 % 09/28/2024 5:54 AM [facility] EOSINOPHILS 2 0 - 7 % 09/28/2024 5:54 AM [facility] BackType [facility] BASOPHILS 0 0 - 1 % 09/28/2024 5:54 AM [facility] IMMATURE GRANULOCYTES 0 0 - 2 % 09/28/2024 5:54 AM [facility] NEUTROPHIL ABSOLUTE 3.27 2.00 - 8.00 K/uL 09/28/2024 5:54 AM [facility] LYMPHOCYTE ABSOLUTE 1.97 1.20 - 4.00 K/uL 09/28/2024 5:54 AM [facility] MONOCYTE ABSOLUTE 0.65(H) 0.10 - 0.60 K/uL 09/28/2024 5:54 AM [facility] EOSINOPHIL ABSOLUTE 0.10 0.00 - 0.70 K/uL 09/28/2024 5:54 AM [facility] BASOPHILS ABSOLUTE 0.02 0.00 - 0.20 K/uL 09/28/2024 5:54 AM [facility] IMMATURE GRANULOCYTES ABSOLUTE 0.02 0.00 - 0.10 K/uL 09/28/2024 5:54 AM [facility] Blood Venipuncture / Unknown 09/28/2024 4:17 AM MACHINE SIGN WRITER 09/28/2024 5:30 AM MACHINE SIGN WRITER us Arlyn Kate MD HEMATOLOGY ORDERABLES Final Re sult [facility] # [id number] [address] [place] [address] * (ABNORMAL) BASIC METABOLIC PANEL (09/27/2024 9:24 AM MACHINE SIGN WRITER) SODIUM 140 136 - 145 mmol/L 09/27/2024 10:18 AM [facility] POTASSIUM 3.9 3.5 - 5.1 mmol/L 09/27/2024 10:18 AM [facility] CHLORIDE 104 98 - 107 mmol/L 09/27/2024 10:18 AM [facility] CO2 26 22 - 29 mmol/L 09/27/2024 10:18 AM [facility] CALCIUM 9.5 8.6 - 10.0 mg/dL 09/27/2024 10:18 AM [facility] BUN 31(H) 6 - 20 mg/dL 09/27/2024 10:18 AM [facility] CREATININE 1.37(H) 0.51 - 0.95 mg/dL 09/27/2024 10:18 AM [facility] GLUCOSE 156(H) 74 - 99 mg/dL 09/27/2024 10:18 AM [facility] GFR 47(L) >=60 mL/min/1. 73 sq meter 09/27/2024 10:18 AM [facility] Comment:eGFR calculated with 2020 CKD-EPI equation. Vegetarian diet, extremely high or low muscle mass, and may affect results. Cystatin C with Glomerular Filtration Rate is a suitable alternative for these patients. ANION GAP 10 9 - 20 mmol/L 09/27/2024 10:18 AM [facility] Blood Venipuncture / Unknown 09/27/2024 9:24 AM MACHINE SIGN WRITER 09/27/2024 9:44 AM MACHINE SIGN WRITER us Arlyn Kate MD CHEMISTRY ORDERABLES Final Res ult [facility] # [id number] [address] [place] [address] * (ABNORMAL) CBC WITH DIFFERENTIAL (09/27/2024 5:53 AM MACHINE SIGN WRITER) WBC 6.8 4.8 - 10.8 K/uL 09/27/2024 6:15 AM [facility] RBC 4.02(L) 4.20 - 5.40 M/uL 09/27/2024 6:15 AM [facility] HEMOGLOBIN 12.1 12.0 - 16.0 g/dL 09/27/2024 6:15 AM [facility] HEMATOCRIT 35.9(L) 36.0 - 46.0 % 09/27/2024 6:15 AM [facility] MCV 89.3 84.0 - 103.0 fL 09/27/2024 6:15 AM [facility] MCH 30.1 27.0 - 34.0 pg 09/27/2024 6:15 AM [facility] MCHC 33.7 30.0 - 35.0 g/dL 09/27/2024 6:15 AM [facility] RDW 13.4 11.0 - 14.5 % 09/27/2024 6:15 AM [facility] RDW-STDEV 44.2 37.0 - 54.0 fL 09/27/2024 6:15 AM [facility] PLATELETS 219 140 - 440 K/uL 09/27/2024 6:15 AM [facility] MPV 9.8 8.9 - 12.8 fL 09/27/2024 6:15 AM [facility] NEUTROPHILS 55 42 - 75 % 09/27/2024 6:15 AM [facility] LYMPHOCYTES 33 24 - 44 % 09/27/2024 6:15 AM [facility] MONOCYTES 10 2 - 10 % 09/27/2024 6:15 AM [facility] EOSINOPHILS 2 0 - 7 % 09/27/2024 6:15 AM [facility] BASOPHILS 0 0 - 1 % 09/27/2024 6:15 AM [facility] IMMATURE GRANULOCYTES 0 0 - 2 % 09/27/2024 6:15 AM [facility] NEUTROPHIL ABSOLUTE 3.69 2.00 - 8.00 K/uL 09/27/2024 6:15 AM [facility] LYMPHOCYTE ABSOLUTE 2.25 1.20 - 4.00 K/uL 09/27/2024 6:15 AM [facility] MONOCYTE ABSOLUTE 0.65(H) 0.10 - 0.60 K/uL 09/27/2024 6:15 AM [facility] EOSINOPHIL ABSOLUTE 0.10 0.00 - 0.70 K/uL 09/27/2024 6:15 AM [facility] BASOPHILS ABSOLUTE 0.03 0.00 - 0.20 K/uL 09/27/2024 6:15 AM [facility] IMMATURE GRANULOCYTES ABSOLUTE 0.03 0.00 - 0.10 K/uL 09/27/2024 6:15 AM [facility] Blood Venipuncture / Unknown 09/27/2024 5:53 AM MACHINE SIGN WRITER 09/27/2024 6:08 AM MACHINE SIGN WRITER Arlyn Kate MD HEMATOLOGY ORDERABLES Final Re sult [facility] CLIA # [id number] [address] [facility] [place] [address] * CT GUIDED RAD THERAPY FIELD (09/26/2024 3:22 PM MACHINE SIGN WRITER) Narrative 09/26/2024 3:22 PM MACHINE SIGN WRITER Order information only. ??Exam was auto-finalized. ?? Karla Goldberg MD CT ORDERABLES Final Resul t * (ABNORMAL) BASIC METABOLIC PANEL (09/26/2024 4:02 AM MACHINE SIGN WRITER) SODIUM 138 136 - 145 mmol/L 09/26/2024 4:46 AM [facility] POTASSIUM 4.1 3.5 - 5.1 mmol/L 09/26/2024 4:46 AM [facility] CHLORIDE 104 98 - 107 mmol/L 09/26/2024 4:46 AM [facility] CO2 24 22 - 29 mmol/L 09/26/2024 4:46 AM [facility] CALCIUM 8.9 8.6 - 10.0 mg/dL 09/26/2024 4:46 AM [facility] BUN 34(H) 6 - 20 mg/dL 09/26/2024 4:46 AM [facility] CREATININE 1.56(H) 0.51 - 0.95 mg/dL 09/26/2024 4:46 AM [facility] GLUCOSE 122(H) 74 - 99 mg/dL 09/26/2024 4:46 AM [facility] GFR 40(L) >=60 mL/min/1. 73 sq meter 09/26/2024 4:46 AM [facility] Comment:eGFR calculated with 2020 CKD-EPI equation. Vegetarian diet, extremely high or low muscle mass, and may affect results. Cystatin C with Glomerular Filtration Rate is a suitable alternative for these patients. ANION GAP 10 9 - 20 mmol/L 09/26/2024 4:46 AM [facility] Blood Venipuncture / Unknown 09/26/2024 4:02 AM MACHINE SIGN WRITER 09/26/2024 4:07 AM MACHINE SIGN WRITER us Arlyn Kate MD CHEMISTRY ORDERABLES Final Res ult [facility] CLIA # [id number] [address] [place] [address]0003 * (ABNORMAL) CBC WITH DIFFERENTIAL (09/26/2024 4:02 AM [facility]) WBC 7.1 4.8 - 10.8 K/uL 09/26/2024 4:26 AM [facility] RBC 3.88(L) 4.20 - 5.40 M/uL 09/26/2024 4:26 AM [facility] HEMOGLOBIN 11.8(L) 12.0 - 16.0 g/dL 09/26/2024 4:26 AM [facility] HEMATOCRIT 35.1(L) 36.0 - 46.0 % 09/26/2024 4:26 AM [facility] MCV 90.5 84.0 - 103.0 fL 09/26/2024 4:26 AM [facility] MCH 30.4 27.0 - 34.0 pg 09/26/2024 4:26 AM [facility] MCHC 33.6 30.0 - 35.0 g/dL 09/26/2024 4:26 AM [facility] RDW 13.5 11.0 - 14.5 % 09/26/2024 4:26 AM [facility] RDW-STDEV 43.8 37.0 - 54.0 fL 09/26/2024 4:26 AM [facility] PLATELETS 227 140 - 440 K/uL 09/26/2024 4:26 AM [facility] MPV 9.6 8.9 - 12.8 fL 09/26/2024 4:26 AM [facility] NEUTROPHILS 56 42 - 75 % 09/26/2024 4:26 AM [facility] LYMPHOCYTES 30 24 - 44 % 09/26/2024 4:26 AM [facility] MONOCYTES 12(H) 2 - 10 % 09/26/2024 4:26 AM [facility] EOSINOPHILS 1 0 - 7 % 09/26/2024 4:26 AM [facility] BASOPHILS 0 0 - 1 % 09/26/2024 4:26 AM [facility] IMMATURE GRANULOCYTES 1 0 - 2 % 09/26/2024 4:26 AM [facility] NEUTROPHIL ABSOLUTE 4.00 2.00 - 8.00 K/uL 09/26/2024 4:26 AM [facility] LYMPHOCYTE ABSOLUTE 2.11 1.20 - 4.00 K/uL 09/26/2024 4:26 AM [facility] MONOCYTE ABSOLUTE 0.82(H) 0.10 - 0.60 K/uL 09/26/2024 4:26 AM [facility] EOSINOPHIL ABSOLUTE 0.10 0.00 - 0.70 K/uL 09/26/2024 4:26 AM [facility] BASOPHILS ABSOLUTE 0.03 0.00 - 0.20 K/uL 09/26/2024 4:26 AM [facility] IMMATURE GRANULOCYTES ABSOLUTE 0.04 0.00 - 0.10 K/uL 09/26/2024 4:26 AM [facility] Blood Venipuncture / Unknown 09/26/2024 4:02 AM [facility] 09/26/2024 4:07 AM [facility] us Arlyn Kate MD HEMATOLOGY ORDERABLES Final Re sult [facility] CLIA # [id number] [address] [place] [address] * EKG 12-LEAD (09/25/2024 10:14 AM MACHINE SIGN WRITER) 09/25/2024 10:1 4 AM MACHINE SIGN WRITER Narrative INTERFACE SYSTEM - 09/25/2024 11:23 PM MACHINE SIGN WRITER ?[facility] ? [address] [place] [address] ? Test Date: ?2024-09-25 Pat Name: ? VENTURA ELMORE ?Department: ?? 12 ?Room: ? 3155 01 Gender: ? Female ? Metallurgy Teacher: ?? [id number] : ?1975 ? Requested By: ?? Order Number: [id number] ? Reading MD: ?? Indrajeet Mahata ? Measurements Intervals ?[place] ? Rate: ? 109 ?P: ?25 MA: ? 132 ?QRS: ?-3 QRSD: ? 84 ? T: ?102 QT: ? 362 ? QTc: ?487 ? Interpretive Statements Sinus tachycardia ST & T wave abnormality, consider lateral ischemia Abnormal ECG baseline artefact Electronically Signed On 09-25-2024 23:23:45 MACHINE SIGN WRITER by Maurilio Zhang Procedure Note Maurilio Zhang MD - 09/25/[address] [address] Test Date: 2024-09-25 Pat Name: VENTURA ELMORE Department: 12 Room: [address] [place] [address] Gender: Female Metallurgy Teacher: [id number] : 1975 Requested By: Order Number: [id number] Reading MD: Maurilio Zhang Measurements Intervals [place] Rate: 109 P: 25 MA: 132 QRS: -3 QRSD: 84 T: 102 QT: 362 QTc: 487 Interpretive Statements Sinus tachycardia ST & T wave abnormality, consider lateral ischemia Abnormal ECG baseline artefact Electronically Signed On 09-25-2024 23:23:45 MACHINE SIGN WRITER by Maurilio Zhang us Arlyn Kate MD ECG ORDERABLES Final Result INTERFACE SYSTEM Refer to clinic/hospital department * PHOSPHORUS (09/25/2024 2:32 AM MACHINE SIGN WRITER) PHOSPHORUS 4.2 2.5 - 4.5 mg/dL 09/25/2024 3:28 AM MACHINE SIGN WRITER [facility] Blood Venipuncture / Unknown 09/25/2024 2:32 AM MACHINE SIGN WRITER 09/25/2024 2:35 AM MACHINE SIGN WRITER Arlyn Kate MD CHEMISTRY ORDERABLES Final Res ult Performing Organization Address [facility]/ZIP Co de Phone Number [facility] CLIA # [id number] [address] [place] [address] * MAGNESIUM LEVEL (09/25/2024 2:32 AM MACHINE SIGN WRITER) MAGNESIUM 2.0 1.6 - 2.6 mg/dL 09/25/2024 3:28 AM MACHINE SIGN WRITER [facility] Blood Venipuncture / Unknown 09/25/2024 2:32 AM MACHINE SIGN WRITER 09/25/2024 2:35 AM MACHINE SIGN WRITER Arlyn Kate MD CHEMISTRY ORDERABLES Final Res ult Performing Organization Address [facility]/ZIP Co de Phone Number [facility] CLIA # [id number] [address] [facility] [place] [address] * TSH (09/25/2024 2:32 AM MACHINE SIGN WRITER) TSH 1.29 0.27 - 4.20 uIU/mL 09/25/2024 3:28 AM MACHINE SIGN WRITER [facility] Blood Venipuncture / Unknown 09/25/2024 2:32 AM MACHINE SIGN WRITER 09/25/2024 2:35 AM MACHINE SIGN WRITER Arlyn Kate MD CHEMISTRY ORDERABLES Final Res ult Performing Organization Address City/[facility]/ZIP Co de Phone Number [facility] CLIA # [id number] [address] [place] [address] [place] [address] * (ABNORMAL) BASIC METABOLIC PANEL (09/25/2024 2:32 AM MACHINE SIGN WRITER) SODIUM 135(L) 136 - 145 mmol/L 09/25/2024 3:28 AM [facility] POTASSIUM 4.3 3.5 - 5.1 mmol/L 09/25/2024 3:28 AM [facility] CHLORIDE 101 98 - 107 mmol/L 09/25/2024 3:28 AM [facility] CO2 21(L) 22 - 29 mmol/L 09/25/2024 3:28 AM [facility] CALCIUM 9.3 8.6 - 10.0 mg/dL 09/25/2024 3:28 AM [facility] BUN 31(H) 6 - 20 mg/dL 09/25/2024 3:28 AM [facility] CREATININE 1.36(H) 0.51 - 0.95 mg/dL 09/25/2024 3:28 AM [facility] GLUCOSE 97 74 - 99 mg/dL 09/25/2024 3:28 AM [facility] GFR 47(L) >=60 mL/min/1. 73 sq meter 09/25/2024 3:28 AM [facility] Comment:eGFR calculated with 2020 CKD-EPI equation. Vegetarian diet, extremely high or low muscle mass, and may affect results. Cystatin C with Glomerular Filtration Rate is a suitable alternative for these patients. ANION GAP 13 9 - 20 mmol/L 09/25/2024 3:28 AM [facility] Blood Venipuncture / Unknown 09/25/2024 2:32 AM MACHINE SIGN WRITER 09/25/2024 2:35 AM MACHINE SIGN WRITER Arlyn Kate MD CHEMISTRY ORDERABLES Final Res ult [facility] CLIA # [id number] [address] [address] [place] [address] * (ABNORMAL) CBC WITH DIFFERENTIAL (09/25/2024 2:31 AM MACHINE SIGN WRITER) [facility] WBC 6.5 4.8 - 10.8 K/uL 09/25/2024 2:38 AM [facility] RBC 4.03(L) 4.20 - 5.40 M/uL 09/25/2024 2:38 AM [facility] HEMOGLOBIN 12.1 12.0 - 16.0 g/dL 09/25/2024 2:38 AM [facility] HEMATOCRIT 38.5 36.0 - 46.0 % 09/25/2024 2:38 AM [facility] MCV 95.5 84.0 - 103.0 fL 09/25/2024 2:38 AM [facility] MCH 30.0 27.0 - 34.0 pg 09/25/2024 2:38 AM [facility] MCHC 31.4 30.0 - 35.0 g/dL 09/25/2024 2:38 AM [facility] RDW 13.6 11.0 - 14.5 % 09/25/2024 2:38 AM [facility] RDW-STDEV 47.2 37.0 - 54.0 fL 09/25/2024 2:38 AM [facility] PLATELETS 228 140 - 440 K/uL 09/25/2024 2:38 AM [facility] MPV 9.7 8.9 - 12.8 fL 09/25/2024 2:38 AM [facility] NEUTROPHILS 50 42 - 75 % 09/25/2024 2:38 AM [facility] LYMPHOCYTES 35 24 - 44 % 09/25/2024 2:38 AM [facility] MONOCYTES 12(H) 2 - 10 % 09/25/2024 2:38 AM [facility] EOSINOPHILS 1 0 - 7 % 09/25/2024 2:38 AM [facility] BASOPHILS 1 0 - 1 % 09/25/2024 2:38 AM [facility] IMMATURE GRANULOCYTES 1 0 - 2 % 09/25/2024 2:38 AM [facility] NEUTROPHIL ABSOLUTE 3.29 2.00 - 8.00 K/uL 09/25/2024 2:38 AM [facility] LYMPHOCYTE ABSOLUTE 2.27 1.20 - 4.00 K/uL 09/25/2024 2:38 AM [facility] MONOCYTE ABSOLUTE 0.80(H) 0.10 - 0.60 K/uL 09/25/2024 2:38 AM [facility] EOSINOPHIL ABSOLUTE 0.09 0.00 - 0.70 K/uL 09/25/2024 2:38 AM [facility] BASOPHILS ABSOLUTE 0.04 0.00 - 0.20 K/uL 09/25/2024 2:38 AM [facility] IMMATURE GRANULOCYTES ABSOLUTE 0.04 0.00 - 0.10 K/uL 09/25/2024 2:38 AM [facility] Blood Venipuncture / Unknown 09/25/2024 2:31 AM MACHINE SIGN WRITER 09/25/2024 2:34 AM MACHINE SIGN WRITER us Arlyn Kate MD HEMATOLOGY ORDERABLES Final Re sult [facility] CLIA # [id number] [address] [address] [place] [address] * EKG 12-LEAD (09/24/2024 8:35 AM MACHINE SIGN WRITER) 09/24/2024 8:35 AM MACHINE SIGN WRITER Narrative INTERFACE SYSTEM - 09/24/2024 1:07 PM MACHINE SIGN WRITER ?[facility] ? [address] [place] [address] ? Test Date: ?2024-09-24 Pat Name: ? VENTURA ROBINSETH ?Department: ?? 12 ?Room: ? 3155 01 Gender: ? Female ? Metallurgy Teacher: ?? [id number] : ?1975 ? Requested By: ?? Order Number: [id number] ? Reading MD: ?? Kasandra Wojciech ? Measurements Intervals ?[place] ? Rate: ? 57 ? P: ?75 MA: ? 140 ?QRS: ?-15 QRSD: ? 88 ? T: ?73 QT: ? 490 ? QTc: ?476 ? Interpretive Statements Sinus bradycardia ST & T wave abnormality, consider lateral ischemia Abnormal ECG Electronically Signed On 09-24-2024 13:07:53 MACHINE SIGN WRITER by Kasandra Jeffrey Procedure Note Provider, 09/24/[address] [address] Test Date: 2024-09-24 Pat Name: VENTURA ELMORE Department: 12 Room: [address] [place] [address] Gender: Female Metallurgy Teacher: [id number] : 1975 Requested By: Order Number: [id number] Reading MD: Kasandra Jeffrey Measurements Intervals [place] Rate: 57 P: 75 MA: 140 QRS: -15 QRSD: 88 T: 73 QT: 490 QTc: 476 Interpretive Statements Sinus bradycardia ST & T wave abnormality, consider lateral ischemia Abnormal ECG Electronically Signed On 09-24-2024 13:07:53 MACHINE SIGN WRITER by Kasandra Jeffrey us Arlyn Kate MD ECG ORDERABLES Final Result INTERFACE SYSTEM Refer to clinic/hospital department * (ABNORMAL) BASIC METABOLIC PANEL (09/23/2024 5:53 AM MACHINE SIGN WRITER) Pathologist [facility] SODIUM 139 136 - 145 mmol/L 09/23/2024 6:42 AM [facility] POTASSIUM 4.5 3.5 - 5.1 mmol/L 09/23/2024 6:42 AM [facility] CHLORIDE 103 98 - 107 mmol/L 09/23/2024 6:42 AM [facility] CO2 28 22 - 29 mmol/L 09/23/2024 6:42 AM [facility] CALCIUM 9.6 8.6 - 10.0 mg/dL 09/23/2024 6:42 AM [facility] BUN 27(H) 6 - 20 mg/dL 09/23/2024 6:42 AM [facility] CREATININE 1.24(H) 0.51 - 0.95 mg/dL 09/23/2024 6:42 AM [facility] GLUCOSE 109(H) 74 - 99 mg/dL 09/23/2024 6:42 AM [facility] GFR 53(L) >=60 mL/min/1. 73 sq meter 09/23/2024 6:42 AM [facility] Comment:eGFR calculated with 2020 CKD-EPI equation. Vegetarian diet, extremely high or low muscle mass, and may affect results. Cystatin C with Glomerular Filtration Rate is a suitable alternative for these patients. ANION GAP 8(L) 9 - 20 mmol/L 09/23/2024 6:42 AM [facility] Blood Venipuncture / Unknown 09/23/2024 5:53 AM MACHINE SIGN WRITER 09/23/2024 6:00 AM MACHINE SIGN WRITER us Arlyn Kate MD CHEMISTRY ORDERABLES Final Res ult [facility] CLIA # [id number] [address] [place] [address] * (ABNORMAL) BASIC METABOLIC PANEL (09/22/2024 4:33 AM MACHINE SIGN WRITER) Pathologist [facility] SODIUM 139 136 - 145 mmol/L 09/22/2024 5:28 AM [facility] POTASSIUM 4.5 3.5 - 5.1 mmol/L 09/22/2024 5:28 AM [facility] CHLORIDE 102 98 - 107 mmol/L 09/22/2024 5:28 AM [facility] CO2 29 22 - 29 mmol/L 09/22/2024 5:28 AM [facility] CALCIUM 9.4 8.6 - 10.0 mg/dL 09/22/2024 5:28 AM [facility] BUN 28(H) 6 - 20 mg/dL 09/22/2024 5:28 AM [facility] CREATININE 1.16(H) 0.51 - 0.95 mg/dL 09/22/2024 5:28 AM [facility] GLUCOSE 102(H) 74 - 99 mg/dL 09/22/2024 5:28 AM [facility] GFR 57(L) >=60 mL/min/1. 73 sq meter 09/22/2024 5:28 AM [facility] Comment:eGFR calculated with 2020 CKD-EPI equation. Vegetarian diet, extremely high or low muscle mass, and may affect results. Cystatin C with Glomerular Filtration Rate is a suitable alternative for these patients. ANION GAP 8(L) 9 - 20 mmol/L 09/22/2024 5:28 AM [facility] Blood Venipuncture / Unknown 09/22/2024 4:33 AM MACHINE SIGN WRITER 09/22/2024 4:57 AM MACHINE SIGN WRITER us Arlyn Kate MD CHEMISTRY ORDERABLES Final Res ult [facility] CLIA # [id number] [address] [place] [address] * (ABNORMAL) BASIC METABOLIC PANEL (09/21/2024 4:59 AM MACHINE SIGN WRITER) SODIUM 138 136 - 145 mmol/L 09/21/2024 5:42 AM [facility] POTASSIUM 4.7 3.5 - 5.1 mmol/L 09/21/2024 5:42 AM [facility] CHLORIDE 102 98 - 107 mmol/L 09/21/2024 5:42 AM [facility] CO2 29 22 - 29 mmol/L 09/21/2024 5:42 AM [facility] CALCIUM 9.2 8.6 - 10.0 mg/dL 09/21/2024 5:42 AM [facility] BUN 26(H) 6 - 20 mg/dL 09/21/2024 5:42 AM [facility] CREATININE 1.16(H) 0.51 - 0.95 mg/dL 09/21/2024 5:42 AM [facility] GLUCOSE 99 74 - 99 mg/dL 09/21/2024 5:42 AM [facility] GFR 57(L) >=60 mL/min/1. 73 sq meter 09/21/2024 5:42 AM [facility] Comment:eGFR calculated with 2020 CKD-EPI equation. Vegetarian diet, extremely high or low muscle mass, and may affect results. Cystatin C with Glomerular Filtration Rate is a suitable alternative for these patients. ANION GAP 7(L) 9 - 20 mmol/L 09/21/2024 5:42 AM [facility] Blood Venipuncture / Unknown 09/21/2024 4:59 AM MACHINE SIGN WRITER 09/21/2024 5:13 AM [facility] us Arlyn Kate MD CHEMISTRY ORDERABLES Final Res ult [facility] CLIA # [id number] [address] [place] [address] * (ABNORMAL) BASIC METABOLIC PANEL (09/20/2024 12:54 AM MACHINE SIGN WRITER) SODIUM 137 136 - 145 mmol/L 09/20/2024 2:02 AM [facility] POTASSIUM 4.6 3.5 - 5.1 mmol/L 09/20/2024 2:02 AM [facility] CHLORIDE 103 98 - 107 mmol/L 09/20/2024 2:02 AM [facility] CO2 28 22 - 29 mmol/L 09/20/2024 2:02 AM [facility] CALCIUM 8.8 8.6 - 10.0 mg/dL 09/20/2024 2:02 AM [facility] BUN 28(H) 6 - 20 mg/dL 09/20/2024 2:02 AM [facility] CREATININE 1.20(H) 0.51 - 0.95 mg/dL 09/20/2024 2:02 AM [facility] GLUCOSE 84 74 - 99 mg/dL 09/20/2024 2:02 AM [facility] GFR 55(L) >=60 mL/min/1. 73 sq meter 09/20/2024 2:02 AM [facility] Comment:eGFR calculated with 2020 CKD-EPI equation. Vegetarian diet, extremely high or low muscle mass, and may affect results. Cystatin C with Glomerular Filtration Rate is a suitable alternative for these patients. ANION GAP 6(L) 9 - 20 mmol/L 09/20/2024 2:02 AM [facility] Blood Venipuncture / Unknown 09/20/2024 12:54 AM MACHINE SIGN WRITER 09/20/2024 1:30 AM MACHINE SIGN WRITER us Arlyn Kate MD CHEMISTRY ORDERABLES Final Res ult [facility] CLIA # [id number] [address] [place] [address] * (ABNORMAL) CBC WITH DIFFERENTIAL (09/20/2024 12:54 AM MACHINE SIGN WRITER) WBC 6.0 4.8 - 10.8 K/uL 09/20/2024 1:36 AM [facility] RBC 3.44(L) 4.20 - 5.40 M/uL 09/20/2024 1:36 AM [facility] HEMOGLOBIN 10.4(L) 12.0 - 16.0 g/dL 09/20/2024 1:36 AM [facility] HEMATOCRIT 32.9(L) 36.0 - 46.0 % 09/20/2024 1:36 AM [facility] BackType [facility] MCV 95.6 84.0 - 103.0 fL 09/20/2024 1:36 AM [facility] MCH 30.2 27.0 - 34.0 pg 09/20/2024 1:36 AM [facility] MCHC 31.6 30.0 - 35.0 g/dL 09/20/2024 1:36 AM [facility] RDW 13.2 11.0 - 14.5 % 09/20/2024 1:36 AM [facility] RDW-STDEV 45.8 37.0 - 54.0 fL 09/20/2024 1:36 AM [facility] PLATELETS 206 140 - 440 K/uL 09/20/2024 1:36 AM [facility] MPV 9.9 8.9 - 12.8 fL 09/20/2024 1:36 AM [facility] NEUTROPHILS 52 42 - 75 % 09/20/2024 1:36 AM [facility] LYMPHOCYTES 37 24 - 44 % 09/20/2024 1:36 AM [facility] MONOCYTES 9 2 - 10 % 09/20/2024 1:36 AM [facility] EOSINOPHILS 2 0 - 7 % 09/20/2024 1:36 AM [facility] BASOPHILS 1 0 - 1 % 09/20/2024 1:36 AM [facility] IMMATURE GRANULOCYTES 0 0 - 2 % 09/20/2024 1:36 AM [facility] NEUTROPHIL ABSOLUTE 3.08 2.00 - 8.00 K/uL 09/20/2024 1:36 AM [facility] LYMPHOCYTE ABSOLUTE 2.21 1.20 - 4.00 K/uL 09/20/2024 1:36 AM [facility] MONOCYTE ABSOLUTE 0.54 0.10 - 0.60 K/uL 09/20/2024 1:36 AM [facility] EOSINOPHIL ABSOLUTE 0.09 0.00 - 0.70 K/uL 09/20/2024 1:36 AM [facility] BASOPHILS ABSOLUTE 0.03 0.00 - 0.20 K/uL 09/20/2024 1:36 AM [facility] IMMATURE GRANULOCYTES ABSOLUTE 0.01 0.00 - 0.10 K/uL 09/20/2024 1:36 AM [facility] Blood Venipuncture / Unknown 09/20/2024 12:54 AM MACHINE SIGN WRITER 09/20/2024 1:30 AM [facility] us Arlyn Kate MD HEMATOLOGY ORDERABLES Final Re sult [facility] CLIA # [id number] [address] [place] [address] * (ABNORMAL) BASIC METABOLIC PANEL (09/19/2024 3:55 AM MACHINE SIGN WRITER) SODIUM 139 136 - 145 mmol/L 09/19/2024 5:24 AM [facility] POTASSIUM 4.7 3.5 - 5.1 mmol/L 09/19/2024 5:24 AM [facility] CHLORIDE 104 98 - 107 mmol/L 09/19/2024 5:24 AM [facility] CO2 27 22 - 29 mmol/L 09/19/2024 5:24 AM [facility] CALCIUM 8.5(L) 8.6 - 10.0 mg/dL 09/19/2024 5:24 AM [facility] BUN 28(H) 6 - 20 mg/dL 09/19/2024 5:24 AM [facility] CREATININE 1.29(H) 0.51 - 0.95 mg/dL 09/19/2024 5:24 AM [facility] GLUCOSE 95 74 - 99 mg/dL 09/19/2024 5:24 AM [facility] GFR 50(L) >=60 mL/min/1. 73 sq meter 09/19/2024 5:24 AM [facility] Comment:eGFR calculated with 2020 CKD-EPI equation. Vegetarian diet, extremely high or low muscle mass, and may affect results. Cystatin C with Glomerular Filtration Rate is a suitable alternative for these patients. ANION GAP 8(L) 9 - 20 mmol/L 09/19/2024 5:24 AM [facility] Blood Venipuncture / Unknown 09/19/2024 3:55 AM MACHINE SIGN WRITER 09/19/2024 4:48 AM MACHINE SIGN WRITER us Arlyn Kate MD CHEMISTRY ORDERABLES Final Res ult [facility] CLIA # [id number] [address] [place] [address] * (ABNORMAL) CBC WITH DIFFERENTIAL (09/19/2024 3:55 AM MACHINE SIGN WRITER) WBC 5.7 4.8 - 10.8 K/uL 09/19/2024 5:08 AM [facility] RBC 3.36(L) 4.20 - 5.40 M/uL 09/19/2024 5:08 AM [facility] HEMOGLOBIN 10.3(L) 12.0 - 16.0 g/dL 09/19/2024 5:08 AM [facility] HEMATOCRIT 33.7(L) 36.0 - 46.0 % 09/19/2024 5:08 AM [facility] MCV 100.3 84.0 - 103.0 fL 09/19/2024 5:08 AM [facility] MCH 30.7 27.0 - 34.0 pg 09/19/2024 5:08 AM [facility] MCHC 30.6 30.0 - 35.0 g/dL 09/19/2024 5:08 AM [facility] RDW 12.9 11.0 - 14.5 % 09/19/2024 5:08 AM [facility] RDW-STDEV 47.4 37.0 - 54.0 fL 09/19/2024 5:08 AM [facility] PLATELETS 184 140 - 440 K/uL 09/19/2024 5:08 AM [facility] MPV 10.3 8.9 - 12.8 fL 09/19/2024 5:08 AM [facility] NEUTROPHILS 57 42 - 75 % 09/19/2024 5:08 AM [facility] LYMPHOCYTES 33 24 - 44 % 09/19/2024 5:08 AM [facility] MONOCYTES 9 2 - 10 % 09/19/2024 5:08 AM [facility] EOSINOPHILS 1 0 - 7 % 09/19/2024 5:08 AM [facility] BASOPHILS 0 0 - 1 % 09/19/2024 5:08 AM [facility] IMMATURE GRANULOCYTES 0 0 - 2 % 09/19/2024 5:08 AM [facility] NEUTROPHIL ABSOLUTE 3.26 2.00 - 8.00 K/uL 09/19/2024 5:08 AM [facility] LYMPHOCYTE ABSOLUTE 1.86 1.20 - 4.00 K/uL 09/19/2024 5:08 AM [facility] MONOCYTE ABSOLUTE 0.50 0.10 - 0.60 K/uL 09/19/2024 5:08 AM [facility] EOSINOPHIL ABSOLUTE 0.07 0.00 - 0.70 K/uL 09/19/2024 5:08 AM [facility] BASOPHILS ABSOLUTE 0.02 0.00 - 0.20 K/uL 09/19/2024 5:08 AM [facility] IMMATURE GRANULOCYTES ABSOLUTE 0.01 0.00 - 0.10 K/uL 09/19/2024 5:08 AM [facility] Back[facility] Blood Venipuncture / Unknown 09/19/2024 3:55 AM MACHINE SIGN WRITER 09/19/2024 4:48 AM [facility] us Arlyn Kate MD HEMATOLOGY ORDERABLES Final Re sult [facility] # [id number] [address] [facility] [place] [id number] * ECHO COMPLETE - CONTRAST AND STRAIN IF INDICATED (09/18/2024 11:15 AM MACHINE SIGN WRITER) EJECTION FRACTION EF: INTERFACE SYSTEM 09/18/2024 10:1 3 AM MACHINE SIGN WRITER Narrative INTERFACE SYSTEM - 09/18/2024 3:03 PM MACHINE SIGN WRITER [facility] Ech[facility] [address] [place] [id number] Transthoracic Echocardiography Patient: ?? [place], ? Study ID: ECHO COMPLETE - ? [place] Gender: ?F ? : ? 1975 ??Age: ?49 Room: ?[facility] ? Study ?09/18/2024 ??Pt ?Inpatient ? Date: ?Status: Study ?10:13:58 AM ? CSN #: ? [id number] Time: Ordering:Wilfredo Harmon [employer] Repairer: Guerda Bourgeois RD Indications and History: ?Abnormal ECG. Summary and [...] GLS, 2D ?-16.6 % ? E/e', lat katt, TDI ?12 CLARA, LAX ? 4.7 ?? cm ?E', med katt, TDI ?6.3 ?? cm/sec ESD, LAX ? 2.7 ?? cm ?E/e', med katt, TDI ?12 CLARA/bsa, LAX ? 2.3 ?? [...] diam, S ?3.6 ?? cm E', lat katt, TDI ? 6.3 ?? cm/sec ??AAo AP diam/bsa, S ?1.8 ?? cm/m^2 Legend: (L) ??and ??(H) ??channing values outside specified reference range. [facility] are accredited with the Intersocietal Accreditation Commission - Echocardiography. Prepared and Electronically Authenticated Jad Wong Confirmed ? 09/18/2024 15:03 Procedure Note Jad Wong MD - 09/18/2024 [facility] Echocardiography Laboratory [address] [place] [address] Transthoracic Echocardiography Patient: Catarina Study ID: [id number] Gender: F : 1975 Age: 49 Room: [facility] Study 09/18/2024 Pt Inpatient Date: Status: Study 10:13:58 AM CSN #: [id number] Time: Ordering:Wilfredo Harmon [employer] Repairer: Guerda Bourgeois [facility] Indications and History: Abnormal ECG. Summary and [...] Value GLS, 2D -16.6 % E/e', lat katt, TDI 12 CLARA, LAX 4.7 cm E', med katt, TDI 6.3cm/sec ESD, LAX 2.7 cm E/e', med katt, TDI 12 CLARA/bsa, LAX 2.3 cm/m^2 E', [...] AP diam, S 3.6 cm E', lat katt, TDI 6.3 cm/sec AAo AP diam/bsa, S 1.8cm/m^2 Legend: (L) and (H) channing values outside specified reference range. [facility] are accredited with theIntersocietal Accreditation Commission - Echocardiography. Prepared and Electronically Authenticated Jad Wong Confirmed 09/18/2024 15:03 us Wilfredo Harmon MD ORDERABLES Final Result INTERFACE SYSTEM Refer to clinic/hospital department * (ABNORMAL) CBC WITHOUT DIFFERENTIAL (09/18/2024 3:22 AM MACHINE SIGN WRITER) Pathologist [facility] WBC 5.9 4.8 - 10.8 K/uL 09/18/2024 3:42 AM [facility] RBC 3.59(L) 4.20 - 5.40 M/uL 09/18/2024 3:42 AM [facility] HEMOGLOBIN 10.7(L) 12.0 - 16.0 g/dL 09/18/2024 3:42 AM [facility] HEMATOCRIT 34.5(L) 36.0 - 46.0 % 09/18/2024 3:42 AM [facility] MCV 96.1 84.0 - 103.0 fL 09/18/2024 3:42 AM [facility] MCH 29.8 27.0 - 34.0 pg 09/18/2024 3:42 AM [facility] MCHC 31.0 30.0 - 35.0 g/dL 09/18/2024 3:42 AM [facility] PLATELETS 231 140 - 440 K/uL 09/18/2024 3:42 AM [facility] MPV 9.5 8.9 - 12.8 fL 09/18/2024 3:42 AM [facility] RDW 12.4 11.0 - 14.5 % 09/18/2024 3:42 AM [facility] RDW-STDEV 43.5 37.0 - 54.0 fL 09/18/2024 3:42 AM [facility] Blood Venipuncture / Unknown 09/18/2024 3:22 AM MACHINE SIGN WRITER 09/18/2024 3:37 AM [facility] Wilfredo Harmon MD HEMATOLOGY ORDERABLES Final Res ult [facility] # [id number] [address] [place] [address] [place], [place] [id number] * POC GLUCOSE (09/17/2024 1:49 PM MACHINE SIGN WRITER) [facility] GLUCOSE POC 88 74 - 99 mg/dL 09/17/2024 1:49 PM [facility] SPECIMEN SOURCE, GLUCOSE POC Capillary 09/17/2024 1:49 PM [facility] Blood, whole 09/17/2024 1:49 PM MACHINE SIGN WRITER 09/17/2024 2:39 PM MACHINE SIGN WRITER Wilfredo Harmon MD POINT OF CARE TESTING Final Res ult [facility] [facility] CLIA # [id number] [address] [place] [address] [place] [address] * (ABNORMAL) RENAL FUNCTION PANEL (09/17/2024 4:00 AM MACHINE SIGN WRITER) SODIUM 138 136 - 145 mmol/L 09/17/2024 4:46 AM [facility] POTASSIUM 4.9 3.5 - 5.1 mmol/L 09/17/2024 4:46 AM [facility] CHLORIDE 106 98 - 107 mmol/L 09/17/2024 4:46 AM [facility] CO2 25 22 - 29 mmol/L 09/17/2024 4:46 AM [facility] CALCIUM 9.2 8.6 - 10.0 mg/dL 09/17/2024 4:46 AM [facility] BUN 22(H) 6 - 20 mg/dL 09/17/2024 4:46 AM [facility] CREATININE 1.14(H) 0.51 - 0.95 mg/dL 09/17/2024 4:46 AM [facility] GLUCOSE 83 74 - 99 mg/dL 09/17/2024 4:46 AM [facility] ALBUMIN 3.0(L) 3.5 - 5.2 g/dL 09/17/2024 4:46 AM [facility] PHOSPHORUS 3.6 2.5 - 4.5 mg/dL 09/17/2024 4:46 AM [facility] GFR 58(L) >=60 mL/min/1. 73 sq meter 09/17/2024 4:46 AM [facility] Comment:eGFR calculated with 2020 CKD-EPI equation. Vegetarian diet, extremely high or low muscle mass, and may affect results. Cystatin C with Glomerular Filtration Rate is a suitable alternative for these patients. ANION GAP 7(L) 9 - 20 mmol/L 09/17/2024 4:46 AM [facility] Blood Venipuncture / Unknown 09/17/2024 4:00 AM MACHINE SIGN WRITER 09/17/2024 4:12 AM MACHINE SIGN WRITER Wilfredo Harmon MD CHEMISTRY ORDERABLES Final Resu lt [facility] CLIA # [id number] [address] [place] [address] * (ABNORMAL) CBC WITHOUT DIFFERENTIAL (09/17/2024 4:00 AM MACHINE SIGN WRITER) WBC 4.1(L) 4.8 - 10.8 K/uL 09/17/2024 4:12 AM [facility] RBC 3.87(L) 4.20 - 5.40 M/uL 09/17/2024 4:12 AM [facility] HEMOGLOBIN 11.8(L) 12.0 - 16.0 g/dL 09/17/2024 4:12 AM [facility] HEMATOCRIT 36.1 36.0 - 46.0 % 09/17/2024 4:12 AM [facility] MCV 93.3 84.0 - 103.0 fL 09/17/2024 4:12 AM [facility] MCH 30.5 27.0 - 34.0 pg 09/17/2024 4:12 AM [facility] MCHC 32.7 30.0 - 35.0 g/dL 09/17/2024 4:12 AM [facility] PLATELETS 155 140 - 440 K/uL 09/17/2024 4:12 AM [facility] MPV 10.0 8.9 - 12.8 fL 09/17/2024 4:12 AM MACHINE SIGN WRITER [facility] RDW 12.8 11.0 - 14.5 % 09/17/2024 4:12 AM MACHINE SIGN WRITER [facility] RDW-STDEV 43.7 37.0 - 54.0 fL 09/17/2024 4:12 AM MACHINE SIGN WRITER [facility] Blood Venipuncture / Unknown 09/17/2024 4:00 AM MACHINE SIGN WRITER 09/17/2024 4:06 AM MACHINE SIGN WRITER us Savannah Garcia MD HEMATOLOGY ORDERABLES Final Resu lt [facility] CLIA # [id number] [address] [facility] [place] [address] * EKG 12-LEAD (09/16/2024 7:32 AM MACHINE SIGN WRITER) 09/16/2024 7:32 AM MACHINE SIGN WRITER Narrative INTERFACE SYSTEM - 09/18/2024 6:26 AM MACHINE SIGN WRITER ?[facility] ? [address] [place] [address] ? Test Date: ?2024-09-16 Pat Name: ? VENTURA ROBINSETH ?Department: ?? 12 ?Room: ? 3155 01 Gender: ? Female ? Metallurgy Teacher: ?? [id number] : ?1975 ? Requested By: ?? Order Number: [id number] ? Reading MD: ?? Kasandra Jeffrey ? Measurements Intervals ?[place] ? Rate: ? 64 ? P: ?36 MA: ? 160 ?QRS: ?-6 QRSD: ? 82 ? T: ?91 QT: ? 448 ? QTc: ?462 ? Interpretive Statements Normal sinus rhythm Anterior infarct, age undetermined Abnormal ECG Electronically Signed On 09-18-2024 6:26:33 MACHINE SIGN WRITER by Kasandra Jeffrey Procedure Note Provider, 09/18/2024 [facility] [address] [place] [address] Test Date: 2024-09-16 Pat Name: VENTURA ELMORE Department: 12 Room: [address] [place] [address] Gender: Female Metallurgy Teacher: [id number] : 1975 Requested By: Order Number: [id number] Reading MD: Kasandra Jeffrey Measurements Intervals [place] Rate: 64 P: 36 MA: 160 QRS: -6 QRSD: 82 T: 91 QT: 448 QTc: 462 Interpretive Statements Normal sinus rhythm Anterior infarct, age undetermined Abnormal ECG Electronically Signed On 09-18-2024 6:26:33 MACHINE SIGN WRITER by Kasandra Jeffrey Wilfredo Harmon MD ECG ORDERABLES Final Result INTERFACE SYSTEM Refer to clinic/hospital department * (ABNORMAL) CBC WITHOUT DIFFERENTIAL (09/16/2024 5:28 AM MACHINE SIGN WRITER) Pathologist [facility] WBC 3.5(L) 4.8 - 10.8 K/uL 09/16/2024 5:49 AM [facility] RBC 3.55(L) 4.20 - 5.40 M/uL 09/16/2024 5:49 AM [facility] BackType [facility] HEMOGLOBIN 10.8(L) 12.0 - 16.0 g/dL 09/16/2024 5:49 AM [facility] HEMATOCRIT 35.6(L) 36.0 - 46.0 % 09/16/2024 5:49 AM [facility] MCV 100.3 84.0 - 103.0 fL 09/16/2024 5:49 AM [facility] MCH 30.4 27.0 - 34.0 pg 09/16/2024 5:49 AM [facility] MCHC 30.3 30.0 - 35.0 g/dL 09/16/2024 5:49 AM [facility] PLATELETS 170 140 - 440 K/uL 09/16/2024 5:49 AM [facility] BackType [facility] MPV 9.6 8.9 - 12.8 fL 09/16/2024 5:49 AM [facility] RDW 12.8 11.0 - 14.5 % 09/16/2024 5:49 AM [facility] BackType [facility] RDW-STDEV 47.7 37.0 - 54.0 fL 09/16/2024 5:49 AM [facility] Blood Venipuncture / Unknown 09/16/2024 5:28 AM MACHINE SIGN WRITER 09/16/2024 5:36 AM MACHINE SIGN WRITER us Savannah Garcia MD HEMATOLOGY ORDERABLES Final Resu lt [facility] CLIA # [id number] [address] [address] [place] [address] * (ABNORMAL) BASIC METABOLIC PANEL (09/16/2024 4:25 AM MACHINE SIGN WRITER) SODIUM 137 136 - 145 mmol/L 09/16/2024 5:13 AM [facility] POTASSIUM 4.8 3.5 - 5.1 mmol/L 09/16/2024 5:13 AM [facility] CHLORIDE 107 98 - 107 mmol/L 09/16/2024 5:13 AM [facility] CO2 23 22 - 29 mmol/L 09/16/2024 5:13 AM [facility] CALCIUM 8.9 8.6 - 10.0 mg/dL 09/16/2024 5:13 AM [facility] BUN 25(H) 6 - 20 mg/dL 09/16/2024 5:13 AM [facility] CREATININE 1.29(H) 0.51 - 0.95 mg/dL 09/16/2024 5:13 AM [facility] GLUCOSE 86 74 - 99 mg/dL 09/16/2024 5:13 AM [facility] GFR 50(L) >=60 mL/min/1. 73 sq meter 09/16/2024 5:13 AM [facility] Comment:eGFR calculated with 2020 CKD-EPI equation. Vegetarian diet, extremely high or low muscle mass, and may affect results. Cystatin C with Glomerular Filtration Rate is a suitable alternative for these patients. ANION GAP 7(L) 9 - 20 mmol/L 09/16/2024 5:13 AM MACHINE SIGN WRITER [facility] Blood Venipuncture / Unknown 09/16/2024 4:25 AM MACHINE SIGN WRITER 09/16/2024 4:34 AM MACHINE SIGN WRITER us Savannah Garcia MD CHEMISTRY ORDERABLES Final Resul t [facility] CLIA # [id number] [address] [facility] [place] [address] * (ABNORMAL) HEPATIC FUNCTION PANEL (09/16/2024 4:25 AM MACHINE SIGN WRITER) Pathologist [facility] TOTAL PROTEIN 5.5(L) 6.4 - 8.3 g/dL 09/16/2024 5:21 AM [facility] ALBUMIN 2.7(L) 3.5 - 5.2 g/dL 09/16/2024 5:21 AM [facility] BILIRUBIN TOTAL 0.2 0.2 - 1.0 mg/dL 09/16/2024 5:21 AM [facility] BILIRUBIN DIRECT <0.1 0.0 - 0.3 mg/dL 09/16/2024 5:21 AM [facility] Comment:Hemolyzed: Result ma y be falsely decreased. ALKALINE PHOSPHATASE 52 35 - 104 U/L 09/16/2024 5:21 AM [facility] AST 26 10 - 35 U/L 09/16/2024 5:21 AM [facility] Comment:Hemolysis present. R esult may be falsely elevated. ALT 20 <=35 U/L 09/16/2024 5:21 AM [facility] Blood Venipuncture / Unknown 09/16/2024 4:25 AM MACHINE SIGN WRITER 09/16/2024 4:34 AM MACHINE SIGN WRITER us Wilfredo Harmon MD CHEMISTRY ORDERABLES Final Resu lt [facility] CLIA # [id number] [address] [address] [place] [address] * (ABNORMAL) DRUG SCREEN, URINE (09/15/2024 10:41 PM [facility]) [facility] AMPHETAMINE QUAL, URINE Negative Negative 09/15/2024 11:29 PM [facility] BARBITURATE QUAL, URINE Negative Negative 09/15/2024 11:29 PM [facility] BENZODIAZEPINE QUAL, URINE Negative Negative 09/15/2024 11:29 PM [facility] COCAINE QUAL URINE Negative Negative 09/15/2024 11:29 PM [facility] OPIATE QUAL, URINE Presumptive Positive(A) Negative 09/15/2024 11:29 PM [facility] CANNABINOIDS QUAL, URINE Negative Negative 09/15/2024 11:29 PM [facility] OXYCODONE QUAL, URINE Negative Negative 09/15/2024 11:29 PM [facility] METHADONE QUAL, URINE Negative Negative 09/15/2024 11:29 PM [facility] FENTANYL QUAL, URINE Negative Negative 09/15/2024 11:29 PM [facility] CREATININE, URINE 43.6 29.0 - 226.0 mg/dL 09/15/2024 11:29 PM [facility] Comment:Reference Range vari es with fluid intake and diet. Urine URINE SPECIMEN OBTAINED BY CLEAN CATCH PROCEDURE / Unknown 09/15/2024 10:41 PM MACHINE SIGN WRITER 09/15/2024 10:51 PM [facility] Narrative [facility] - 09/15/2024 11:29 PM [facility] This test is a qualitative [...] Wilfredo Harmon MD URINE ORDERABLES Final Result Performing Organization Address City/State/[facility] Co de Phone Number [facility]OR[facility]ORY [facility] # [id number] [address] [place] [address] * XR VIDEO SWALLOW W SPEECH (09/15/2024 2:43 PM MACHINE SIGN WRITER) Anatomical Region Laterality Modality Chest Computed Radiogr aphy 09/15/2024 2:43 PM MACHINE SIGN WRITER Impressions 09/15/2024 3:00 PM MACHINE SIGN WRITER IMPRESSION: Please see below. Exam: XR VIDEO SWALLOW W SPEECH Date/Time of Exam: 09/15/2024 2:43 PM Reason For Exam: Aspiration. This procedure was performed and preliminary findings dictated by Kary Latif APRN SPECIMEN PREPARATION ASSISTANT-Renaldo. Supervision and final interpretation by Dr. Fay. [...] performed and preliminary findings dictated by JULIANO Campos-Renaldo. Supervision and final interpretation by Dr. Sanchez. [...] swallowing, please see detailed speech pathology report. us Savannah Garcia MD DIAGNOSTIC IMAGING ORDERABLES Fi nal Result * PHOSPHORUS (09/15/2024 3:48 AM MACHINE SIGN WRITER) PHOSPHORUS 3.6 2.5 - 4.5 mg/dL 09/15/2024 7:38 PM MACHINE SIGN WRITER [facility] Blood Venipuncture / Unknown 09/15/2024 3:48 AM MACHINE SIGN WRITER 09/15/2024 3:59 AM MACHINE SIGN WRITER Wilfredo Harmon MD CHEMISTRY ORDERABLES [id number] [address] [place] [address] [place] [address] * MAGNESIUM LEVEL (09/15/2024 3:48 AM MACHINE SIGN WRITER) MAGNESIUM 2.0 1.6 - 2.6 mg/dL 09/15/2024 7:38 PM MACHINE SIGN WRITER [facility] Blood Venipuncture / Unknown 09/15/2024 3:48 AM MACHINE SIGN WRITER 09/15/2024 3:59 AM MACHINE SIGN WRITER us Wilfredo Harmon MD CHEMISTRY ORDERABLES Final Resu lt [facility] # [id number] [facility] [address] [place] [address] * (ABNORMAL) BASIC METABOLIC PANEL (09/15/2024 3:48 AM MACHINE SIGN WRITER) SODIUM 138 136 - 145 mmol/L 09/15/2024 5:30 AM [facility] POTASSIUM 4.6 3.5 - 5.1 mmol/L 09/15/2024 5:30 AM [facility] CHLORIDE 108(H) 98 - 107 mmol/L 09/15/2024 5:30 AM [facility] CO2 21(L) 22 - 29 mmol/L 09/15/2024 5:30 AM [facility] CALCIUM 8.7 8.6 - 10.0 mg/dL 09/15/2024 5:30 AM [facility] BUN 24(H) 6 - 20 mg/dL 09/15/2024 5:30 AM [facility] CREATININE 1.24(H) 0.51 - 0.95 mg/dL 09/15/2024 5:30 AM [facility] GLUCOSE 90 74 - 99 mg/dL 09/15/2024 5:30 AM [facility] GFR 53(L) >=60 mL/min/1. 73 sq meter 09/15/2024 5:30 AM [facility] Comment:eGFR calculated with 2020 CKD-EPI equation. Vegetarian diet, extremely high or low muscle mass, and may affect results. Cystatin C with Glomerular Filtration Rate is a suitable alternative for these patients. ANION GAP 9 9 - 20 mmol/L 09/15/2024 5:30 AM [facility] Blood Venipuncture / Unknown 09/15/2024 3:48 AM MACHINE SIGN WRITER 09/15/2024 3:59 AM MACHINE SIGN WRITER Savannah Garcia MD CHEMISTRY ORDERABLES Final Resul t [facility] CLIA # [id number] [address] [address] [place] [address] * (ABNORMAL) CBC WITHOUT DIFFERENTIAL (09/15/2024 3:48 AM MACHINE SIGN WRITER) WBC 4.2(L) 4.8 - 10.8 K/uL 09/15/2024 4:09 AM [facility] RBC 3.95(L) 4.20 - 5.40 M/uL 09/15/2024 4:09 AM [facility] HEMOGLOBIN 11.9(L) 12.0 - 16.0 g/dL 09/15/2024 4:09 AM [facility] HEMATOCRIT 37.6 36.0 - 46.0 % 09/15/2024 4:09 AM [facility] MCV 95.2 84.0 - 103.0 fL 09/15/2024 4:09 AM [facility] MCH 30.1 27.0 - 34.0 pg 09/15/2024 4:09 AM [facility] MCHC 31.6 30.0 - 35.0 g/dL 09/15/2024 4:09 AM [facility] PLATELETS 188 140 - 440 K/uL 09/15/2024 4:09 AM [facility] MPV 9.4 8.9 - 12.8 fL 09/15/2024 4:09 AM [facility] RDW 13.0 11.0 - 14.5 % 09/15/2024 4:09 AM [facility] RDW-STDEV 46.0 37.0 - 54.0 fL 09/15/2024 4:09 AM [facility] Blood Venipuncture / Unknown 09/15/2024 3:48 AM MACHINE SIGN WRITER 09/15/2024 3:59 AM MACHINE SIGN WRITER us Savannah Garcia MD HEMATOLOGY ORDERABLES Final Resu lt [facility] # [id number] [address] [facility] [place] [address] * CT SOFT TISSUE NECK W CONTRAST (09/14/2024 5:04 PM MACHINE SIGN WRITER) Anatomical Region Laterality Modality Neck Computed Tomogra phy 09/14/2024 5:04 PM MACHINE SIGN WRITER Impressions 09/15/2024 9:01 AM MACHINE SIGN WRITER IMPRESSION: 1. ??A 3.1 x 2.3 x [...] tube is present. Narrative 09/15/2024 9:01 AM MACHINE SIGN WRITER EXAM: ??CT SOFT TISSUE NECK W CONTRAST [...] is present within both lungs. There are igoi-jc-ayodpkkh degenerative changes of the mid to lower [...] is present within both lungs. There are szhh-od-bjqtspys degenerative changes of the mid to lower [...] 5. A tracheostomy tube is present. Guerda Jennifer Екатерина [facility] CT ORDERABLES Final Result * CT CHEST ABDOMEN PELVIS W CONT (09/14/2024 5:03 PM MACHINE SIGN WRITER) Anatomical Region Laterality Modality Chest Computed Tomogra phy 09/14/2024 5:04 PM MACHINE SIGN WRITER Impressions 09/15/2024 8:37 AM MACHINE SIGN WRITER IMPRESSION: 1. ??Small areas of atelectasis or [...] posterior rib fractures. Narrative 09/15/2024 8:37 AM MACHINE SIGN WRITER Exam: ??CT CHEST ABDOMEN PELVIS W CONT [...] aorta is normal in caliber. There are qhfi-zi-qhfdhdmg degenerative changes of the thoracic spine and [...] is normal in caliber and contains a mqeax-zd-cpgxbnds amount of atherosclerotic plaque. The arteries the [...] aorta is normal in caliber. There are wxzm-mo-fogfowhe degenerative changes of the thoracic spine and [...] is normal in caliber and contains a wsgya-cv-ohkgfeez amount of atherosclerotic plaque. The arteries the [...] old, healed right posterior rib fractures. Guerda Rodriguez Екатерина SPECIMEN PREPARATION ASSISTANT CT ORDERABLES Final Result * SPUTUM CULTURE WITH GRAM STAIN (09/14/2024 11:29 AM MACHINE SIGN WRITER) Pathologist [facility] CULTURE No pathogens isolated. Normal respiratory parish present. 09/16/2024 9:09 AM MACHINE SIGN WRITER [facility] GRAM STAIN Smear contains </=10 squamous epithelial cells per low power field 09/16/2024 9:09 AM MACHINE SIGN WRITER [facility] GRAM STAIN <25 PMN WBC/LPF 9:09 AM MACHINE SIGN WRITER [facility] GRAM STAIN Mixed parish with no predominate morphology 09/16/2024 9:09 AM MACHINE SIGN WRITER [facility] Sputum SPUTUM SPECIMEN OBTAINED BY ASPIRATION / Unknown Collection / Unknown 09/14/2024 11:29 AM MACHINE SIGN WRITER 09/14/2024 11:59 AM MACHINE SIGN WRITER Savannah Garcia MD MICROBIOLOGY - GENERAL ORDERABLE S Final Result [facility] # [id number] [address] [place] [address] * (ABNORMAL) PNEUMONIA PATHOGEN PCR PANEL (09/14/2024 11:29 AM MACHINE SIGN WRITER) Coronavirus by PCR INDETERM INATE(A) Not Detected 09/14/2024 1:32 PM MACHINE SIGN WRITER [facility] Comment:Unable to determine presence or absence of Coronavirus (strains 229E, OC43, HKU1, NL63) DNA. This assay does NOT test for CoVID-19. If clinical suspicion is high, recommend ordering a respiratory viral panel and submission of a nasopharyngeal swab for testing. Respiratory syncytial virus by PCR DETECTED (A) Not Detected 09/14/2024 1:32 PM MACHINE SIGN WRITER [facility] Sputum SPUTUM SPECIMEN OBTAINED BY ASPIRATION / Unknown Collection / Unknown 09/14/2024 11:29 AM MACHINE SIGN WRITER 09/14/2024 7:39 AM MACHINE SIGN WRITER Narrative [facility] - 09/14/2024 1:32 PM MACHINE SIGN WRITER NOTE: Per the buttonhole maker hand, this current lot of reagent may be insensitive for the full detection of adenoviruses. ??If adenovirus is within the differential diagnosis, the specimen may be submitted to a reference laboratory for further testing. ??If desired, order [id number] Lab Test, stating Adenovirus by PCR testing in the ordering comment and notify the Microbiology lab at [phone]. Positive Respiratory panel called to Michelle Mendoza [...] KPC NDM OXA-48-like VIM mecA/C and MREJ us Kelin Bunn NP MICROBIOLOGY - GENERAL ORDERABL ES Final Result [facility] CLIA # [id number] [address] [address] * (ABNORMAL) BASIC METABOLIC PANEL (09/14/2024 7:11 AM MACHINE SIGN WRITER) SODIUM 143 136 - 145 mmol/L 09/14/2024 7:56 AM [facility] POTASSIUM 4.5 3.5 - 5.1 mmol/L 09/14/2024 7:56 AM [facility] CHLORIDE 114(H) 98 - 107 mmol/L 09/14/2024 7:56 AM [facility] CO2 23 22 - 29 mmol/L 09/14/2024 7:56 AM [facility] CALCIUM 8.2(L) 8.6 - 10.0 mg/dL 09/14/2024 7:56 AM [facility] BUN 22(H) 6 - 20 mg/dL 09/14/2024 7:56 AM [facility] CREATININE 1.34(H) 0.51 - 0.95 mg/dL 09/14/2024 7:56 AM [facility] GLUCOSE 153(H) 74 - 99 mg/dL 09/14/2024 7:56 AM [facility] GFR 48(L) >=60 mL/min/1. 73 sq meter 09/14/2024 7:56 AM [facility] Comment:eGFR calculated with 2020 CKD-EPI equation. Vegetarian diet, extremely high or low muscle mass, and may affect results. Cystatin C with Glomerular Filtration Rate is a suitable alternative for these patients. ANION GAP 6(L) 9 - 20 mmol/L 09/14/2024 7:56 AM [facility] Blood Venipuncture / Unknown 09/14/2024 7:11 AM MACHINE SIGN WRITER 09/14/2024 7:14 AM [facility] us Kelin uBnn NP CHEMISTRY ORDERABLES Final Resu lt [facility] CLIA # [id number] [address] [place] [address] [place] [address] * (ABNORMAL) CBC WITHOUT DIFFERENTIAL (09/14/2024 7:11 AM [facility]) WBC 6.9 4.8 - 10.8 K/uL 09/14/2024 7:18 AM [facility] RBC 3.91(L) 4.20 - 5.40 M/uL 09/14/2024 7:18 AM [facility] HEMOGLOBIN 11.7(L) 12.0 - 16.0 g/dL 09/14/2024 7:18 AM [facility] HEMATOCRIT 37.7 36.0 - 46.0 % 09/14/2024 7:18 AM [facility] MCV 96.4 84.0 - 103.0 fL 09/14/2024 7:18 AM [facility] MCH 29.9 27.0 - 34.0 pg 09/14/2024 7:18 AM [facility] MCHC 31.0 30.0 - 35.0 g/dL 09/14/2024 7:18 AM [facility] PLATELETS 245 140 - 440 K/uL 09/14/2024 7:18 AM [facility] MPV 9.2 8.9 - 12.8 fL 09/14/2024 7:18 AM [facility] RDW 13.2 11.0 - 14.5 % 09/14/2024 7:18 AM [facility] RDW-STDEV 46.9 37.0 - 54.0 fL 09/14/2024 7:18 AM [facility] Blood Venipuncture / Unknown 09/14/2024 7:11 AM MACHINE SIGN WRITER 09/14/2024 7:14 AM [facility] us Kelin Bunn NP HEMATOLOGY ORDERABLES Final Res ult [facility] CLIA # [id number] [facility] [place] [address] * VANCOMYCIN LEVEL RANDOM (09/14/2024 7:11 AM MACHINE SIGN WRITER) VANCOMYCIN, RANDOM 16.7 5.0 - 50.0 ug/mL 09/14/2024 7:56 AM [facility] Blood Venipuncture / Unknown 09/14/2024 7:11 AM MACHINE SIGN WRITER 09/14/2024 7:14 AM MACHINE SIGN WRITER [facility] - 09/14/2024 7:56 AM MACHINE SIGN WRITER Vancomycin Therapeutic Ranges: Vancomycin Trough: 10 - 20 mcg/mL Vancomycin Peak: ?? 25 - 50 mcg/mL us Kelin Bunn NP CHEMISTRY ORDERABLES Final Resu lt [facility] CLIA # [id number] [address] [address] * SPUTUM CULTURE WITH GRAM STAIN (09/14/2024 6:29 AM MACHINE SIGN WRITER) [facility] CULTURE Suggest appropriate recollection and resubmit. 09/14/2024 7:59 AM [facility] GRAM STAIN Smear contains >/=10 squamous epithelial cells per low power field 09/14/2024 7:59 AM [facility] GRAM STAIN suggestive of a poor quality specimen, culture not performed. 09/14/2024 7:59 AM [facility] Sputum COUGHED SPUTUM SPECIMEN / Unknown Collection / Unknown 09/14/2024 6:29 AM MACHINE SIGN WRITER 09/14/2024 6:34 AM [facility] - 09/14/2024 7:59 AM MACHINE SIGN WRITER Sputum quality unacceptable for culture called to Michelle Brown RN by Allison Michaud on 09/14/2024 at 7:58 AM with verbal readback. us Kelin Bunn NP MICROBIOLOGY - GENERAL ORDERABL ES Final Result Performing Organization Address [facility]/ZIP Co de Phone Number [facility] CLIA # [id number] [address] [place] [address] * LACTIC ACID (09/14/2024 12:04 AM MACHINE SIGN WRITER) LACTIC ACID 0.6 <=2.0 mmol/L 09/14/2024 12:31 AM MACHINE SIGN WRITER [facility] Blood Venipuncture / Unknown 09/14/2024 12:04 AM MACHINE SIGN WRITER 09/14/2024 12:08 AM MACHINE SIGN WRITER Milan Cook MD CHEMISTRY ORDERABLES Final Resu lt Performing Organization Address [facility] Co de Phone Number [facility] BackType [facility] CLIA # [id number] [id number] [place] [address] * (ABNORMAL) TROPONIN 6 HR, 5TH GEN (09/14/2024 12:04 AM MACHINE SIGN WRITER) TROPONIN T, 6 HR 5TH GEN 21(H) <11 ng/L 09/14/2024 12:40 AM MACHINE SIGN WRITER [facility] [employer] [facility] DELTA 6HR TROPONIN T 0 See Interp. 09/14/2024 12:40 AM MACHINE SIGN WRITER [facility] Blood Venipuncture / Unknown 09/14/2024 12:04 AM MACHINE SIGN WRITER 09/14/2024 12:09 AM MACHINE SIGN WRITER Narrative [facility] [employer] [facility] - 09/14/2024 12:40 AM MACHINE SIGN WRITER Troponin elevated. Delta indeterminate. Delay in collection of timed specimen beyond recommended collection interval. Results must be interpreted in clinical context. Humberto Phillip MD CHEMISTRY ORDERABLES Final Re sult Performing Organization Address City/[facility]/ZIP Co de Phone Number [facility] [employer] [facility] CLIA # [id number] [address] [address] * (ABNORMAL) POC GLUCOSE (09/13/2024 9:40 PM MACHINE SIGN WRITER) [facility] GLUCOSE POC 128(H) 74 - 99 mg/dL 09/13/2024 9:40 PM MACHINE SIGN WRITER [facility] [facility] SPECIM[facility] SOURCE, GLUCOSE POC Capillary 09/13/2024 9:40 PM MACHINE SIGN WRITER [facility] Blood, whole 09/13/2024 9:40 PM MACHINE SIGN WRITER 09/13/2024 9:48 PM MACHINE SIGN WRITER Milan Cook MD POINT OF CARE TESTING Final Res ult [facility] CLIA # [id number] [address] [place] [address] * RESPIRATORY PATHOGEN PCR PANEL (09/13/2024 9:32 PM MACHINE SIGN WRITER) [facility] Respiratory Pathogen PCR Panel NOT DETECTED No respiratory pathogen nucleic acids detected. 09/13/2024 10:56 PM MACHINE SIGN WRITER [facility] COVID-19 PCR NOT DETECTED Not Detected 09/13/2024 10:56 PM MACHINE SIGN WRITER [facility] Upper Respiratory ENTIRE NASOPHARYNX / Unknown Collection / Unknown 09/13/2024 9:32 PM MACHINE SIGN WRITER 09/13/2024 9:38 PM MACHINE SIGN WRITER [facility] - 09/13/2024 10:56 PM MACHINE SIGN WRITER The Film Array Respiratory Panel (RP2.1) is [...] pertussis Bordetella parapertussis Chlamydophila pneumoniae Mycoplasma pneumoniae Kelin Bunn NP MICROBIOLOGY - GENERAL ORDERABL ES Final Result Performing Organization Address [facility]/ZIP Co de Phone Number [facility] BackType [facility] CLIA # [id number] [address] [place] [address] * (ABNORMAL) TROPONIN 2 HR, 5TH GEN (09/13/2024 7:43 PM MACHINE SIGN WRITER) TROPONIN T, 2 HR 5TH GEN 19(H) <=10 ng/L 09/13/2024 8:24 PM MACHINE SIGN WRITER [facility] LABORATORY [facility] DELTA 2HR TROPONIN T -2 See Interp. 09/13/2024 8:24 PM MACHINE SIGN WRITER [facility] Blood Venipuncture / Unknown 09/13/2024 7:43 PM MACHINE SIGN WRITER 09/13/2024 7:48 PM MACHINE SIGN WRITER Narrative [facility] LABORATORY [facility] - 09/13/2024 8:24 PM MACHINE SIGN WRITER Troponin elevated. Delta not changing. Humberto Phillip MD CHEMISTRY ORDERABLES Final Re sult Performing Organization Address [facility]/ZIP Co de Phone Number [facility] CLIA # [id number] [address] [facility] [place] [address] * EXTRA TUBE (URINE CLEMENTS) (09/13/2024 5:56 PM MACHINE SIGN WRITER) Urine URINE SPECIMEN OBTAINED BY CLEAN CATCH PROCEDURE / Unknown Collection / Unknown 09/13/2024 5:56 PM MACHINE SIGN WRITER 09/13/2024 6:16 PM MACHINE SIGN WRITER Humberto Phillip MD URINE ORDERABLES Final Result Performing Organization Address City/[facility]/ZIP Co de Phone Number [facility] BackType [facility] CLIA # [id number] [address] [place] [address] * (ABNORMAL) URINALYSIS WITH REFLEX MICROSCOPIC (09/13/2024 5:56 PM MACHINE SIGN WRITER) COLOR UA Yellow Pale to Dark Yellow 09/13/2024 6:25 PM [facility] CLARITY UA Cloudy(A) Clear 09/13/2024 6:25 PM [facility] SPECIFIC GRAVITY UA 1.014 1.003 - 1.035 09/13/2024 6:25 PM [facility] PH UA 5.5 5.0 - 8.0 09/13/2024 6:25 PM [facility] LEUKOCYTE ESTERASE UA 2+(A) Negative 09/13/2024 6:25 PM [facility] NITRITE UA Negative Negative 09/13/2024 6:25 PM [facility] PROTEIN UA Negative Negative 09/13/2024 6:25 PM [facility] GLUCOSE UA Negative Negative 09/13/2024 6:25 PM [facility] KETONES UA Negative Negative 09/13/2024 6:25 PM [facility] UROBILINOGEN UA <2.0 <2.0 mg/dL 6:25 PM [facility] BILIRUBIN UA Negative Negative 09/13/2024 6:25 PM [facility] BLOOD UA Negative Negative 09/13/2024 6:25 PM [facility] WBC UA 0-2 0 - 2 /hpf 09/13/2024 6:25 PM [facility] RBC UA 0-2 0 - 2 /hpf 09/13/2024 6:25 PM [facility] BACTERIA UA Negative Negative /hpf 09/13/2024 6:25 PM [facility] EPITHELIAL CELLS, URINE 0-5 0 - 5 /hpf 09/13/2024 6:25 PM [facility] HYALINE CAST 6-10(A) None Seen, 0-2 /lpf 09/13/2024 6:25 PM [facility] Urine URINE SPECIMEN OBTAINED BY CLEAN CATCH PROCEDURE / Unknown Collection / Unknown 09/13/2024 5:56 PM MACHINE SIGN WRITER 09/13/2024 6:16 PM MACHINE SIGN WRITER us Humberto Phillip MD URINE ORDERABLES Final Result Performing Organization Address [facility]/State/ZIP Co de Phone Number [facility] # [id number] [address] [place] [address] * EKG 12-LEAD (09/13/2024 5:51 PM MACHINE SIGN WRITER) 09/13/2024 5:51 PM MACHINE SIGN WRITER Narrative INTERFACE SYSTEM - 09/14/2024 6:29 AM MACHINE SIGN WRITER ?[facility] ? [address] [place] [address] ? Test Date: ?2024-09-13 Pat Name: ? VENTURA ROBINSETH ?Department: ?? 11 ?Room: ? 06 06 Gender: ? Female ? Metallurgy Teacher: ?? [email or web address] : ?1975 ? Requested By: ?? Order Number: [id number] ? Temo NELSON: ?? Prince Tuttle ? Measurements Intervals ?[place] ? Rate: ? 76 ? P: ?47 MA: ? 164 ?QRS: ?-15 QRSD: ? 76 ? T: ?85 QT: ? 450 ? QTc: ?506 ? Interpretive Statements Normal sinus rhythm Cannot rule out Anterior infarct, age undetermined Non specific ST- T wave changes Prolonged QT Abnormal ECG Electronically Signed On 09-14-2024 6:29:33 MACHINE SIGN WRITER by Prince Tuttle Procedure Note Prince Tuttle MD - 09/14/2024 [facility] [address] [place] [address] Test Date: 2024-09-13 Pat Name: VENTURA ELMORE Department: 11 Room: 06 06 Gender: Female Metallurgy Teacher: [email or web address] : 1975 Requested By: Order Number: [id number] Temo MD: Prince Tuttle Measurements Intervals [place] Rate: 76 P: 47 MA: 164 QRS: -15 QRSD: 76 T: 85 QT: 450 QTc: 506 Interpretive Statements Normal sinus rhythm Cannot rule out Anterior infarct, age undetermined Non specific ST- T wave changes Prolonged QT Abnormal ECG Electronically Signed On 09-14-2024 6:29:33 MACHINE SIGN WRITER by Prince Tuttle Humberto Phillip MD ECG ORDERABLES Final Result INTERFACE SYSTEM Refer to clinic/hospital department * XR CHEST PA OR AP 1 VW (09/13/2024 5:12 PM MACHINE SIGN WRITER) Anatomical Region Laterality Modality Chest Computed Radiogr aphy 09/13/2024 5:12 PM MACHINE SIGN WRITER Impressions 09/13/2024 5:25 PM MACHINE SIGN WRITER IMPRESSION: Please see below. EXAM: XR CHEST [...] TROPONIN BASELINE, 5TH GEN (09/13/2024 4:48 PM MACHINE SIGN WRITER) TROPONIN T, BASELINE 5TH GEN 21(H) <=10 ng/L 09/13/2024 5:59 PM MACHINE SIGN WRITER [facility] Blood Venipuncture / Unknown 09/13/2024 4:48 PM MACHINE SIGN WRITER 09/13/2024 5:00 PM MACHINE SIGN WRITER Narrative [facility] - 09/13/2024 5:59 PM MACHINE SIGN WRITER Troponin elevated. us Humberto Phillip MD CHEMISTRY ORDERABLES Final Re sult [facility] CLIA # [id number] [address] [place] [address] * BLOOD CULTURE (09/13/2024 4:48 PM MACHINE SIGN WRITER) BLOOD CULTURE No growth 09/18/2024 6:41 PM MACHINE SIGN WRITER [facility] Blood (Peripheral) Venipuncture / Unknown 09/13/2024 4:48 PM MACHINE SIGN WRITER 09/13/2024 4:59 PM MACHINE SIGN WRITER us Humberto Phillip MD MICROBIOLOGY - GENERAL ORDERA BLES Final Result Performing Organization Address [facility]/ZIP Co de Phone Number [facility] CLIA # [id number] [address] [facility] [place] [address] * BLOOD CULTURE (09/13/2024 4:48 PM MACHINE SIGN WRITER) BLOOD CULTURE No growth 09/18/2024 6:42 PM MACHINE SIGN WRITER [facility] Blood (Peripheral) Venipuncture / Unknown 09/13/2024 4:48 PM MACHINE SIGN WRITER 09/13/2024 4:59 PM MACHINE SIGN WRITER us Humberto Phillip MD MICROBIOLOGY - GENERAL ORDERA BLES Final Result [facility] CLIA # [id number] [address] [id number] * LACTIC ACID (09/13/2024 4:48 PM MACHINE SIGN WRITER) LACTIC ACID 1.3 <=2.0 mmol/L 09/13/2024 5:32 PM MACHINE SIGN WRITER [facility] Blood Venipuncture / Unknown 09/13/2024 4:48 PM MACHINE SIGN WRITER 09/13/2024 4:58 PM MACHINE SIGN WRITER us Humberto Phillip MD CHEMISTRY ORDERABLES Final Re sult [facility] CLIA # [id number] [address] [address] * (ABNORMAL) COMPREHENSIVE METABOLIC PANEL (09/13/2024 4:48 PM MACHINE SIGN WRITER) SODIUM 139 136 - 145 mmol/L 09/13/2024 5:43 PM [facility] POTASSIUM 4.5 3.5 - 5.1 mmol/L 09/13/2024 5:43 PM [facility] CHLORIDE 105 98 - 107 mmol/L 09/13/2024 5:43 PM [facility] CO2 23 22 - 29 mmol/L 09/13/2024 5:43 PM [facility] CALCIUM 9.3 8.6 - 10.0 mg/dL 09/13/2024 5:43 PM [facility] BUN 31(H) 6 - 20 mg/dL 09/13/2024 5:43 PM [facility] CREATININE 1.65(H) 0.51 - 0.95 mg/dL 09/13/2024 5:43 PM [facility] GLUCOSE 94 74 - 99 mg/dL 09/13/2024 5:43 PM [facility] TOTAL PROTEIN 6.7 6.4 - 8.3 g/dL 09/13/2024 5:43 PM [facility] ALBUMIN 3.6 3.5 - 5.2 g/dL 09/13/2024 5:43 PM [facility] BILIRUBIN TOTAL 0.2 0.2 - 1.0 mg/dL 09/13/2024 5:43 PM [facility] ALKALINE PHOSPHATASE 82 35 - 104 U/L 09/13/2024 5:43 PM [facility] AST 25 10 - 35 U/L 09/13/2024 5:43 PM [facility] ALT 27 <=35 U/L 09/13/2024 5:43 PM [facility] GFR 37(L) >=60 mL/min/1. 73 sq meter 09/13/2024 5:43 PM [facility] Comment:eGFR calculated with 2020 CKD-EPI equation. Vegetarian diet, extremely high or low muscle mass, and may affect results. Cystatin C with Glomerular Filtration Rate is a suitable alternative for these patients. ANION GAP 11 9 - 20 mmol/L 09/13/2024 5:43 PM [facility] Blood Venipuncture / Unknown 09/13/2024 4:48 PM MACHINE SIGN WRITER 09/13/2024 5:00 PM MACHINE SIGN WRITER us Humberto Phillip MD CHEMISTRY ORDERABLES Final Re sult [facility] CLIA # [id number] [address] [place] [address] * (ABNORMAL) CBC WITH DIFFERENTIAL (09/13/2024 4:48 PM MACHINE SIGN WRITER) WBC 7.2 4.8 - 10.8 K/uL 09/13/2024 5:05 PM [facility] RBC 4.51 4.20 - 5.40 M/uL 09/13/2024 5:05 PM [facility] HEMOGLOBIN 13.8 12.0 - 16.0 g/dL 09/13/2024 5:05 PM [facility] HEMATOCRIT 42.6 36.0 - 46.0 % 09/13/2024 5:05 PM [facility] MCV 94.5 84.0 - 103.0 fL 09/13/2024 5:05 PM [facility] MCH 30.6 27.0 - 34.0 pg 09/13/2024 5:05 PM [facility] MCHC 32.4 30.0 - 35.0 g/dL 09/13/2024 5:05 PM [facility] RDW 13.0 11.0 - 14.5 % 09/13/2024 5:05 PM [facility] RDW-STDEV 44.4 37.0 - 54.0 fL 09/13/2024 5:05 PM [facility] PLATELETS 315 140 - 440 K/uL 09/13/2024 5:05 PM [facility] MPV 9.4 8.9 - 12.8 fL 09/13/2024 5:05 PM [facility] NEUTROPHILS 61 42 - 75 % 09/13/2024 5:05 PM [facility] LYMPHOCYTES 29 24 - 44 % 09/13/2024 5:05 PM [facility] MONOCYTES 9 2 - 10 % 09/13/2024 5:05 PM [facility] EOSINOPHILS 1 0 - 7 % 09/13/2024 5:05 PM [facility] BASOPHILS 0 0 - 1 % 09/13/2024 5:05 PM [facility] IMMATURE GRANULOCYTES 0 0 - 2 % 09/13/2024 5:05 PM [facility] NEUTROPHIL ABSOLUTE 4.41 2.00 - 8.00 K/uL 09/13/2024 5:05 PM [facility] LYMPHOCYTE ABSOLUTE 2.06 1.20 - 4.00 K/uL 09/13/2024 5:05 PM [facility] MONOCYTE ABSOLUTE 0.63(H) 0.10 - 0.60 K/uL 09/13/2024 5:05 PM MACHINE SIGN WRITER [facility] EOSINOPHIL ABSOLUTE 0.08 0.00 - 0.70 K/uL 09/13/2024 5:05 PM MACHINE SIGN WRITER [facility] BASOPHILS ABSOLUTE 0.03 0.00 - 0.20 K/uL 09/13/2024 5:05 PM MACHINE SIGN WRITER [facility] IMMATURE GRANULOCYTES ABSOLUTE 0.02 0.00 - 0.10 K/uL 09/13/2024 5:05 PM MACHINE SIGN WRITER [facility] Blood Venipuncture / Unknown 09/13/2024 4:48 PM MACHINE SIGN WRITER 09/13/2024 5:00 PM MACHINE SIGN WRITER Humberto Phillip MD HEMATOLOGY ORDERABLES Final R esult Performing Organization Address City/State/[facility] Co de Phone Number [facility] # [id number] [address] [place] [address] * Critical Care (09/13/2024 4:22 PM MACHINE SIGN WRITER) Narrative Humberto Phillip MD - 09/13/2024 4:22 PM MACHINE SIGN WRITER Humberto Phillip MD ? 09/13/2024 ??7:34 PM Critical Care Performed by: Humberto Phillip MD Authorized by: uHmberto Phillip MD ?? Critical care provider statement: [...] us Humberto Phillip MD PROCEDURE/MINOR SURGICAL ORDHay KALYN Final Result documented in this encounter Visit Diagnoses Diagnosis 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 neoplasm of larynx, unspecified site Hypovolemic shock (CMS/HCC) Other shock without mention of trauma Hypotension, unspecified hypotension type Hx of laryngeal cancer Personal history of malignant neoplasm of larynx Acute renal failure superimposed on chronic kidney disease, unspecified acute renal failure type, unspecified CKD stage Essential hypertension Unspecified essential hypertension Bipolar disorder, unspecified ([facility]/HCC) Bipolar disorder, unspecified CKD (chronic kidney disease) Chronic kidney disease, unspecified COPD (chronic obstructive pulmonary disease) ([facility]) Chronic airway obstruction, not elsewhere classified Severe sepsis with septic shock ([facility]) Unspecified septicemia Hx of laryngeal cancer Personal history of malignant neoplasm of larynx Acute renal failure superimposed on chronic kidney disease Hypovolemic shock ([facility]/HCC) Other shock without mention of trauma Pneumonia due to respiratory syncytial virus (RSV) Multifocal pneumonia Acute respiratory failure with hypoxia ([facility]) Acute respiratory failure Hypotension Hypotension, unspecified documented in this encounter Administered Medications Inactive Administered Medications - up to 3 most recent administrations Medication Order MAR Action Action Date Dose Rate Site acetaminophen (TYLENOL) tablet 650 mg 650 mg, Oral, EVERY 6 HOURS PRN, Starting on Wed09/13/24 at 2055, Until Nataliia 09/28/24 at 1932, Other (See Comment), See admin instructions, Routine Given 09/17/2024 6:12 PM MACHINE SIGN WRITER 650 mg albuterol (PROVENTIL,VENTOLIN) 2.5 mg /3 mL (0.083 %) inhalation solution 2.5 mg 2.5 mg, Inhalation, TWICE DAILY RESPIRATORY, First dose on 09/16/24 at 2100, Until Discontinued, Routine Given 09/17/2024 8:04 PM MACHINE SIGN WRITER 2.5 mg Given 09/17/2024 9:20 AM MACHINE SIGN WRITER 2.5 mg Given 09/16/2024 9:04 PM MACHINE SIGN WRITER 2.5 mg albuterol (PROVENTIL,VENTOLIN) 2.5 mg /3 mL (0.083 %) inhalation solution 2.5 mg 2.5 mg, Inhalation, NOW THEN Q 12 HOUR RESPIRATORY, First dose (after last modification) on Wed09/18/24 at 0800, Until Discontinued, Routine Given 09/28/2024 8:40 AM MACHINE SIGN WRITER 2.5 mg Given 09/27/2024 8:54 PM MACHINE SIGN WRITER 2.5 mg Given 09/27/2024 7:56 AM MACHINE SIGN WRITER 2.5 mg aspirin (RISA CHEWABLE) chewable tablet 81 mg 81 mg, G Tube, DAILY, First dose on Wed09/14/24 at 0900, Until Discontinued, Routine, Previous Med: aspirin (RISA CHEWABLE) 81 mg Tablet, Chewable - Orig Sig - 81 mg by G Tube route daily. Given 09/28/2024 8:27 AM MACHINE SIGN WRITER 81 mg Given 09/27/2024 9:07 AM MACHINE SIGN WRITER 81 mg Given 09/26/2024 9:03 AM MACHINE SIGN WRITER 81 mg atorvastatin (LIPITOR) tablet 80 mg 80 mg, G Tube, DAILY AT BEDTIME, First dose on Wed09/13/24 at 2100, Until Discontinued, Routine, Previous Med: atorvastatin (LIPITOR) 80 mg tablet - Orig Sig - 80 mg by G Tube route daily at bedtime. Given 09/27/2024 8:26 PM MACHINE SIGN WRITER 80 mg Given 09/26/2024 8:31 PM MACHINE SIGN WRITER 80 mg Given 09/25/2024 9:06 PM MACHINE SIGN WRITER 80 mg barium sulfate (LIQUID E-Z PAQUE,BAROSPERSE) oral suspension 200 mL 200 mL, Oral, INTRA-PROCEDURE ONCE, 1 dose, Starting on Wed09/15/24 at 1443, Until Wed09/15/24 at 1443, Routine Given 09/15/2024 2:43 PM MACHINE SIGN WRITER 200 mL barium sulfate (VARIBAR PUDDING) oral paste 45 mL 45 mL, Oral, INTRA-PROCEDURE ONCE, 1 dose, Starting on Wed09/15/24 at 1443, Until Wed09/15/24 at 1443, Routine Given 09/15/2024 2:43 PM MACHINE SIGN WRITER 45 mL budesonide (PULMICORT RESPULE) 0.5 mg/2 mL inhalation solution 0.5 mg 0.5 mg, Inhalation, DAILY RESPIRATORY, First dose on Wed09/14/24 at 0800, Until Discontinued, Routine, Previous Med: budesonide (PULMICORT RESPULE) 0.5 mg/2 mL Suspension for Nebulization - Orig Sig - Take 0.5 mg by inhalation 2 times daily. Given 09/28/2024 8:39 AM MACHINE SIGN WRITER 0.5 mg Given 09/27/2024 7:56 AM MACHINE SIGN WRITER 0.5 mg Given 09/26/2024 9:08 AM MACHINE SIGN WRITER 0.5 mg cefePIME (MAXIPIME) 2,000 mg in sodium chloride 0.9% 50 mL IVPB (MBP) 2,000 mg, IV, EVERY 12 HOURS (BlD), First dose on Wed09/13/24 at 2115, Until Discontinued, Routine, Antibiotic Indication: Suspected Sepsis, Unknown Source New Bag 09/15/2024 9:00 AM MACHINE SIGN WRITER 2,000 mg 118 mL/hr New Bag 09/14/2024 8:34 PM MACHINE SIGN WRITER 2,000 mg 118 mL/hr New Bag 09/14/2024 10:39 AM MACHINE SIGN WRITER 2,000 mg 118 mL/hr cefTRIAXone (ROCEPHIN) 2,000 mg in sodium chloride 0.9% 50 mL IVPB (MBP) 2,000 mg, IV, EVERY 24 HOURS (DAILY), 2 doses, First dose on Wed09/15/24 at 2100, Last dose on Wed09/16/24 at 0900, Routine, Antibiotic Indication: Suspected Sepsis, Unknown Source New Bag 09/16/2024 8:10 AM MACHINE SIGN WRITER 2,000 mg 118 mL/h r Bag 09/15/2024 9:22 PM MACHINE SIGN WRITER 2,000 mg 118 mL/hr clopidogreL (PLAVIX) tablet 75 mg 75 mg, G Tube, DAILY, First dose on Nataliia 09/14/24 at 0900, Until Discontinued, Routine, Previous Med: clopidogreL (PLAVIX) 75 mg Tablet - Orig Sig - 75 mg by G Tube route daily. Given 09/28/2024 8:27 AM MACHINE SIGN WRITER 75 mg Given 09/27/2024 9:07 AM MACHINE SIGN WRITER 75 mg Given 09/26/2024 9:03 AM MACHINE SIGN WRITER 75 mg heparin injection 5,000 Units 5,000 Units, subCUT, EVERY 8 HOURS, First dose on Wed09/13/24 at 2200, Until Discontinued, Routine Given 09/28/2024 5:26 AM MACHINE SIGN WRITER 5,000 Units Abdomen, Left Upper Quadrant Given 09/27/2024 8:26 PM MACHINE SIGN WRITER 5,000 Units A bdomen, Left Lower Quadrant Given 09/27/2024 1:22 PM MACHINE SIGN WRITER 5,000 Units A bdomen, Left Upper Quadrant HYDROcodone-acetaminophen (NORCO) 5-325 mg per tablet 1 Tablet 1 Tablet, Oral, EVERY 4 HOURS PRN, Starting on Wed09/13/24 at 2058, Until Wed09/25/24 at 0759, Pain (See admin instructions), Routine Given 09/25/2024 2:59 AM MACHINE SIGN WRITER 1 Tablet Given 09/24/2024 8:48 PM MACHINE SIGN WRITER 1 Tablet Given 09/24/2024 4:51 PM MACHINE SIGN WRITER 1 Tablet HYDROcodone-acetaminophen (NORCO) 5-325 mg per tablet 1 Tablet 1 Tablet, Oral, EVERY 8 HOURS PRN, Starting on Wed09/25/24 at 0759, Until Wed09/25/24 at 1445, Pain (See admin instructions), Routine Given 09/25/2024 9:11 AM MACHINE SIGN WRITER 1 Tablet HYDROcodone-acetaminophen (NORCO) 5-325 mg per tablet 1 Tablet 1 Tablet, Oral, EVERY 6 HOURS PRN, Starting on Wed09/25/24 at 1445, Until Nataliia 09/28/24 at 1932, Pain (See admin instructions), Routine Given 09/28/2024 11:40 AM MACHINE SIGN WRITER 1 Tablet Given 09/28/2024 5:26 AM MACHINE SIGN WRITER 1 Tablet Given 09/27/2024 9:20 PM MACHINE SIGN WRITER 1 Tablet hydrOXYzine HCL (ATARAX) tablet 25 mg 25 mg, Oral, EVERY 8 HOURS PRN, Starting on Wed09/22/24 at 1103, Until Nataliia 09/28/24 at 1932, Anxiety, Routine Given 09/28/2024 3:19 PM MACHINE SIGN WRITER 25 mg Given 09/28/2024 8:31 AM MACHINE SIGN WRITER 25 mg Given 09/27/2024 9:12 AM MACHINE SIGN WRITER 25 mg iopamidoL (ISOVUE-300) 61% injection (drawn from multi-use bulk pack) 100 mL 100 mL, IV, INTRA-PROCEDURE ONCE, 1 dose, Starting on Nataliia 09/14/24 at 1703, Until Nataliia 09/14/24 at 1703, Routine Contrast Given 09/14/2024 5:03 PM MACHINE SIGN WRITER 100 mL lactated ringers infusion IV, at 125 mL/hr, POST-PROCEDURE CONTINUOUS, Starting on 09/17/24 at 1200, Until 09/17/24 at 1438, Routine, PACU Started by Another Clinician 09/17/2024 1:32 PM MACHINE SIGN WRITER 125 mL/hr lidocaine (XYLOCAINE) 2 % viscous oral solution 10 mL 10 mL, Mouth/Throat, ONE TIME ONLY, 1 dose, On Wed09/13/24 at 1730, Routine Given 09/13/2024 5:31 PM MACHINE SIGN WRITER 10 mL melatonin tablet 3 mg 3 mg, Oral, NIGHTLY PRN, Starting on Wed09/16/24 at 1622, Until Nataliia 09/28/24 at 1932, Insomnia, Routine Given 09/21/2024 8:50 PM MACHINE SIGN WRITER 3 mg Given 09/20/2024 9:08 PM MACHINE SIGN WRITER 3 mg Given 09/19/2024 9:49 PM MACHINE SIGN WRITER 3 mg metoprolol tartrate (LOPRESSOR) tablet 25 mg 25 mg, G Tube, TWO TIMES DAILY, First dose on Wed09/16/24 at 0900, Until Discontinued, Routine, Previous Med: metoprolol tartrate (LOPRESSOR) 25 mg tablet - Orig Sig - 25 mg by G Tube route 2 times daily. Given 09/22/2024 9:07 PM MACHINE SIGN WRITER 25 mg Given 09/21/2024 8:50 PM MACHINE SIGN WRITER 25 mg Given 09/21/2024 7:36 AM MACHINE SIGN WRITER 25 mg metoprolol tartrate (LOPRESSOR) tablet 25 mg 25 mg, Oral, TWO TIMES DAILY, First dose on Wed09/25/24 at 1045, Until Discontinued, Routine, On hold since Wed09/26/2024 at 0801 until manually unheld Given 09/25/2024 9:07 PM MACHINE SIGN WRITER 25 mg Given 09/25/2024 10:49 AM MACHINE SIGN WRITER 25 mg midodrine (PROAMATINE) tablet 10 mg 10 mg, Oral, EVERY 8 HOURS, First dose (after last modification) on Wed09/19/24 at 1300, Until Discontinued, Routine Given 09/27/2024 8:25 PM MACHINE SIGN WRITER 10 mg Given 09/27/2024 1:21 PM MACHINE SIGN WRITER 10 mg Given 09/27/2024 5:08 AM MACHINE SIGN WRITER 10 mg midodrine (PROAMATINE) tablet 5 mg 5 mg, Oral, EVERY 8 HOURS, First dose on Wed09/18/24 at 1345, Until Discontinued, Routine Given 09/19/2024 7:23 AM MACHINE SIGN WRITER 5 mg Given 09/18/2024 9:56 PM MACHINE SIGN WRITER 5 mg Given 09/18/2024 2:43 PM MACHINE SIGN WRITER 5 mg midodrine (PROAMATINE) tablet 5 mg 5 mg, Oral, TWO TIMES DAILY, First dose (after last modification) on Wed09/28/24 at 0900, Until Discontinued, Routine Given 09/28/2024 8:27 AM MACHINE SIGN WRITER 5 mg morphine 4 mg/mL injection 2 mg 2 mg, IV, EVERY 2 HOURS PRN, Starting on Wed09/16/24 at 1620, Until Wed09/28/24 at 1932, Pain, Severe, Routine Given 09/28/2024 12:49 AM MACHINE SIGN WRITER 2 mg Given 09/27/2024 6:17 PM MACHINE SIGN WRITER 2 mg Given 09/27/2024 1:28 PM MACHINE SIGN WRITER 2 mg morphine 4 mg/mL injection 4 mg 4 mg, IV, ONE TIME ONLY, 1 dose, On Wed09/13/24 at 2015, Routine Given 09/13/2024 8:56 PM MACHINE SIGN WRITER 4 mg naloxone (NARCAN) 0.4 mg/mL injection 0.1-0.4 mg 0.1-0.4 mg, IV, SEE ADMIN INSTRUCTIONS, Starting on Wed09/13/24 at 2052, Until Wed09/28/24 at 1932, Routine norepinephrine bitartrate-D5W (LEVOPHED) 8 mg/250 mL (32 mcg/mL) infusion 0-0.2 mcg/kg/min ? 80.1 kg (0-30.0375 mL/hr, rounded to 0-30.04 mL/hr), IV, TITRATE, Starting on Wed09/13/24 at 1730, Until Wed09/15/24 at 1319, Should this infusion be titrated? Yes, Is this a CABG patient? No, Initial infusion dose? 0.05 mcg/kg/min, Titration Dose Increment? 0.05 mcg/kg/min, Titration Interval? 10 minutes, Goal Type? MAP Goal, MAP Goal? 65-75 Rate Change 09/14/2024 2:46 PM MACHINE SIGN WRITER 0.05 mcg/kg/min 7.51 mL/hr Rate Verify 09/14/2024 6:58 AM MACHINE SIGN WRITER 0.07 mcg/kg/min 10.51 m L/hr Rate Verify 09/14/2024 6:00 AM MACHINE SIGN WRITER 0.07 mcg/kg/min 10.51 m L/hr ondansetron (ZOFRAN) 4 mg/2 mL injection 4 mg 4 mg, IV, EVERY 6 HOURS PRN, Starting on Wed09/13/24 at 2055, Until Nataliia 09/28/24 at 1932, Nausea/Emesis, Routine New Bag 09/17/2024 1:05 PM MACHINE SIGN WRITER 4 mg Given 09/14/2024 6:54 PM MACHINE SIGN WRITER 4 mg PARoxetine HCl (PAXIL) tablet 20 mg 20 mg, G Tube, DAILY, First dose on Wed09/14/24 at 0900, Until Discontinued, Routine, Previous Med: PARoxetine HCl (PAXIL) 20 mg tablet - Orig Sig - 20 mg by G Tube route daily. Given 09/28/2024 8:27 AM MACHINE SIGN WRITER 20 mg Given 09/27/2024 9:07 AM MACHINE SIGN WRITER 20 mg Given 09/26/2024 9:03 AM MACHINE SIGN WRITER 20 mg risperiDONE (RisperDAL) tablet 2 mg 2 mg, Oral, DAILY, First dose on Wed09/15/24 at 1330, Until Discontinued, Routine, Previous Med: risperiDONE (RisperDAL) 2 mg tablet - Orig Sig - Take 2 mg by mouth daily. Given 09/28/2024 8:27 AM MACHINE SIGN WRITER 2 mg Given 09/27/2024 9:07 AM MACHINE SIGN WRITER 2 mg Given 09/26/2024 9:03 AM MACHINE SIGN WRITER 2 mg Saccharomyces boulardii (FLORASTOR) capsule 250 mg 250 mg, Oral, TWO TIMES DAILY, First dose on Wed09/16/24 at 2100, Until Discontinued, Routine Given 09/28/2024 8:27 AM MACHINE SIGN WRITER 250 mg Given 09/27/2024 8:26 PM MACHINE SIGN WRITER 250 mg Given 09/27/2024 9:07 AM MACHINE SIGN WRITER 250 mg sennosides (SENOKOT) tablet 17.2 mg 17.2 mg, Oral, TWO TIMES DAILY PRN, Starting on Wed09/16/24 at 1622, Until Nataliia 09/28/24 at 1932, Constipation, Routine sodium chloride 0.9 % bolus solution 1,000 mL 1,000 mL, IV, ONE TIME ONLY, 1 dose, On Wed09/13/24 at 1645, at 2,000 mL/hr, Administer over 30 Minutes, Routine Started by Another Clinician 09/13/2024 4:51 PM MACHINE SIGN WRITER 1,000 mL 2000 mL/hr sodium chloride 0.9 % bolus solution 1,000 mL 1,000 mL, IV, ONE TIME ONLY, 1 dose, On Wed09/13/24 at 1730, at 2,000 mL/hr, Administer over 30 Minutes, Routine New Bag 09/13/2024 5:36 PM MACHINE SIGN WRITER 1,000 mL 2000 mL/hr sodium chloride 0.9 % bolus solution 1,000 mL 1,000 mL, IV, ONE TIME ONLY, 1 dose, On Wed09/17/24 at 1500, at 2,000 mL/hr, Administer over 30 Minutes, Routine New Bag 09/17/2024 2:57 PM MACHINE SIGN WRITER 1,000 mL 2000 mL/hr sodium chloride 0.9 % bolus solution 500 mL 500 mL, IV, ONE TIME ONLY, 1 dose, On Wed09/14/24 at 0945, at 999 mL/hr, Administer over 30 Minutes, Routine New Bag 09/14/2024 10:08 AM MACHINE SIGN WRITER 500 mL 999 mL/hr sodium chloride 0.9 % infusion IV, at 150 mL/hr, CONTINUOUS, Starting on Wed09/13/24 at 1845, Until Wed09/14/24 at 1727, Stat New Bag 09/14/2024 10:37 AM MACHINE SIGN WRITER 150 mL/hr Rate Verify 09/14/2024 6:58 AM MACHINE SIGN WRITER 150 mL/hr Rate Verify 09/14/2024 6:00 AM MACHINE SIGN WRITER 150 mL/hr sodium chloride flush injection 10 mL 10 mL, IV, EVERY 5 MINUTES PRN, 1 dose, Starting on Wed09/14/24 at 1703, Until Wed09/17/24 at 1606, NS flushes for Imaging scan q 5 min PRN, Routine Given 09/17/2024 4:06 PM MACHINE SIGN WRITER 10 mL sodium chloride flush injection 5 mL 5 mL, IV, EVERY 12 HOURS, First dose on Wed09/14/24 at 1645, Until Discontinued, Routine Given 09/26/2024 4:45 PM MACHINE SIGN WRITER 5 mL Given 09/26/2024 5:07 AM MACHINE SIGN WRITER 5 mL Given 09/25/2024 3:46 PM MACHINE SIGN WRITER 5 mL sodium chloride flush injection 5 mL 5 mL, IV, SEE ADMIN INSTRUCTIONS, Starting on Wed09/14/24 at 1639, Until Wed09/28/24 at 1932, Routine Given 09/27/2024 8:26 PM MACHINE SIGN WRITER 5 mL vancomycin (VANCOCIN) 500 mg in sodium chloride 0.9% 100 mL IVPB (MBP) 500 mg, IV, ONE TIME ONLY, 1 dose, On Nataliia 09/14/24 at 0900, Routine, Antibiotic Indication: Suspected Sepsis, Unknown Source New Bag 09/14/2024 11:25 AM MACHINE SIGN WRITER 500 mg 115 mL/hr vancomycin in sodium chloride 0.9% (VANCOCIN) 1250 mg/262.5 mL IVPB 1,250 mg 1,250 mg, IV, ONE TIME ONLY, 1 dose, On Wed09/13/24 at 2200, Routine, Antibiotic Indication: Suspected Sepsis, Unknown Source Rate Verify 09/14/2024 12:00 AM MACHINE SIGN WRITER 175 mL/hr New Bag 09/13/2024 11:05 PM MACHINE SIGN WRITER 1,250 mg 175 mL/hr documented in this encounter Active and Recently Administered Medications Times are shown in MACHINE SIGN WRITER. Scheduled Medication Order 09/26/2024 09/27/2024 09/28/2024 albuterol (PROVENTIL,VENTOLIN) 2.5 mg /3 mL (0.083 %) inhalation solution 2.5 mg 2.5 mg, Inhalation, NOW THEN Q 12 HOUR RESPIRATORY, First dose (after last modification) on Wed09/18/24 at 0800, Until Discontinued, Routine 0800 (Due)1940 (Given - Provider: Fidencio Lara, Student Respiratory) 0756 (Given - Provider: Jeronimo Fletcher SPECIAL WEAPONS AND TACTICS OFFICER)2053 (Given - Provider: Jacqueline Sánchez SPECIAL WEAPONS AND TACTICS OFFICER) 0840 (Given - Provider: Jarvis Howard SPECIAL WEAPONS AND TACTICS OFFICER) aspirin (RISA CHEWABLE) chewable tablet 81 mg 81 mg, G Tube, DAILY, First dose on Wed09/14/24 at 0900, Until Discontinued, Routine, Previous Med: aspirin (RISA CHEWABLE) 81 mg Tablet, Chewable - Orig Sig - 81 mg by G Tube route daily. 09 (Given - Provider: Debbie Kirkpatrick RN) 906 (Given - Provider: Briana Astudillo RN) 826 (Given - Provider: Debbie Kirkpatrick RN) atorvastatin (LIPITOR) tablet 80 mg 80 mg, G Tube, DAILY AT BEDTIME, First dose on Wed09/13/24 at 2100, Until Discontinued, Routine, Previous Med: atorvastatin (LIPITOR) 80 mg tablet - Orig Sig - 80 mg by G Tube route daily at bedtime. 2030 (Given - Provider: Serene Steven RN) 2025 (Given - Provider: Serene Steven RN) budesonide (PULMICORT RESPULE) 0.5 mg/2 mL inhalation solution 0.5 mg 0.5 mg, Inhalation, DAILY RESPIRATORY, First dose on Wed09/14/24 at 0800, Until Discontinued, Routine, Previous Med: budesonide (PULMICORT RESPULE) 0.5 mg/2 mL Suspension for Nebulization - Orig Sig - Take 0.5 mg by inhalation 2 times daily. 0908 (Given - Provider: Marianna Willoughby RCP) 0756 (Given - Provider: Jeronimo Fletcher RCP) 0839 (Given - Provider: Jarvis Howard RCP) clopidogreL (PLAVIX) tablet 75 mg 75 mg, G Tube, DAILY, First dose on Wed09/14/24 at 0900, Until Discontinued, Routine, Previous Med: clopidogreL (PLAVIX) 75 mg Tablet - Orig Sig - 75 mg by G Tube route daily. 0903 (Given - Provider: Debbie Kirkpatrick RN) 0907 (Given - Provider: Briana Astudillo RN) 0827 (Given - Provider: Debbie Kirkpatrick RN) heparin injection 5,000 Units 5,000 Units, subCUT, EVERY 8 HOURS, First dose on Wed09/13/24 at 2200, Until Discontinued, Routine 0507 (Given - Provider: Lise Nielsen LPN)1236 (Given - Provider: Debbie Kirkpatrick RN)2030 (Given - Provider: Serene Steven RN) 0508 (Given - Provider: Serene Steven RN)1322 (Given - Provider: Briana Astudillo RN)2025 (Given - Provider: Serene Steven RN) 0526 (Given - Provider: Serene Steven RN)1300 (Refused - Provider: Debbie Kirkpatrick RN) metoprolol tartrate (LOPRESSOR) tablet 25 mg 25 mg, Oral, TWO TIMES DAILY, First dose on Wed09/25/24 at 1045, Until Discontinued, Routine, On hold since Wed09/26/2024 at 0801 until manually unheld 08 (Held by Provider - Provider: Arlyn Kate MD - Reason: Lab results / vitals)0900 (Automatically Held - Provider: Arlyn Kate MD)2100 (Automatically Held - Provider: Arlyn Kate MD) 0900 (Automatically Held - Provider: Arlyn Kate MD)2099 (Automatically Held - Provider: Arlyn Kate MD) 09 (Automatically Held - Provider: Arlyn Kate MD)1931 (Order Unhold - Provider: PROVIDER, DISCHARGE PATIENT) midodrine (PROAMATINE) tablet 10 mg (CANCELED) 10 mg, Oral, EVERY 8 HOURS, First dose (after last modification) on Wed09/19/24 at 1300, Until Discontinued, Routine 050 (Given - Provider: Lise Nielsen LPN)123 (Given - Provider: Debbie Kirkpatrick RN)2029 (Given - Provider: Serene Steven RN) 050 (Given - Provider: Serene Steven RN)132 (Given - Provider: Briana Astudillo RN)2024 (Given - Provider: Serene Steven RN) midodrine (PROAMATINE) tablet 5 mg 5 mg, Oral, TWO TIMES DAILY, First dose (after last modification) on Wed09/28/24 at 0900, Until Discontinued, Routine 826 (Given - Provider: Debbie Kirkpatrick RN) naloxone (NARCAN) 0.4 mg/mL injection 0.1-0.4 mg 0.1-0.4 mg, IV, SEE ADMIN INSTRUCTIONS, Starting on Wed09/13/24 at 205, Until Wed09/28/24 at 193, Routine PARoxetine HCl (PAXIL) tablet 20 mg 20 mg, G Tube, DAILY, First dose on Wed09/14/24 at 0900, Until Discontinued, Routine, Previous Med: PARoxetine HCl (PAXIL) 20 mg tablet - Orig Sig - 20 mg by G Tube route daily. 0903 (Given - Provider: Debbie Kirkpatrick RN) 906 (Given - Provider: Briana Astudillo RN) 08 (Given - Provider: Debbie Kirkpatrick RN) risperiDONE (RisperDAL) tablet 2 mg 2 mg, Oral, DAILY, First dose on Wed09/15/24 at 1330, Until Discontinued, Routine, Previous Med: risperiDONE (RisperDAL) 2 mg tablet - Orig Sig - Take 2 mg by mouth daily. 0903 (Given - Provider: Debbie Kirkpatrick RN) 09 (Given - Provider: Briana Astudillo RN) 08 (Given - Provider: Debbie Kirkpatrick RN) Saccharomyces boulardii (FLORASTOR) capsule 250 mg 250 mg, Oral, TWO TIMES DAILY, First dose on Wed09/16/24 at 2100, Until Discontinued, Routine 09 (Given - Provider: Debbie Kirkpatrick RN)2030 (Given - Provider: Serene Steven RN) 09 (Given - Provider: Briana Astudillo RN)2025 (Given - Provider: Serene Steven RN) 08 (Given - Provider: Debbie Kirkpatrick RN) sodium chloride flush injection 5 mL 5 mL, IV, EVERY 12 HOURS, First dose on Wed09/14/24 at 1645, Until Discontinued, Routine 0507 (Given - Provider: Lise Nielsen LPN)1645 (Given - Provider: Debbie Kirkpatrick RN) 0500 (Canceled Entry - Provider: Serene Steven RN)1645 (Not Given - Provider: Briana Astudillo RN - Reason: Medication already given) 0500 (Canceled Entry - Provider: Serene Steven RN)164 (Due) sodium chloride flush injection 5 mL 5 mL, IV, SEE ADMIN INSTRUCTIONS, Starting on Wed09/14/24 at 1639, Until Nataliia 09/28/24 at 1932, Routine 2025 (Given - Provider: Serene Steven RN) PRN Medication Order 09/26/2024 09/27/2024 09/28/2024 acetaminophen (TYLENOL) tablet 650 mg 650 mg, Oral, EVERY 6 HOURS PRN, Starting on Wed09/13/24 at 2055, Until Nataliia 09/28/24 at 1932, Other (See Comment), See admin instructions, Routine HYDROcodone-acetaminop hen (NORCO) 5-325 mg per tablet 1 Tablet 1 Tablet, Oral, EVERY 6 HOURS PRN, Starting on 09/25/24 at 1445, Until Nataliia 09/28/24 at 1932, Pain (See admin instructions), Routine 0026 (Given - Provider: Lise Nielsen LPN)0802 (Given - Provider: Debbie Kirkpatrick RN)1236 (Given - Provider: Debbie Kirkpatrick RN)1838 (Given - Provider: Debbie Kirkpatrick RN) 0113 (Given - Provider: Serene Steven RN)0912 (Given - Provider: Birana Astudillo RN)1318 (Return to [facility] - Provider: Briana Astudillo RN - Comment: too soon to administer returned to [facility])1523 (Given - Provider: Briana Astudillo RN)2120 (Given - Provider: Serene Steven RN) 0526 (Given - Provider: Serene Steven RN)1140 (Given - Provider: Debbie Kirkpatrick RN) hydrOXYzine HCL (ATARAX) tablet 25 mg 25 mg, Oral, EVERY 8 HOURS PRN, Starting on Wed09/22/24 at 1103, Until Nataliia 09/28/24 at 1932, Anxiety, Routine 0908 (Given - Provider: Debbie Kirkpatrick RN - Comment: this med taken by DANICA Mcneil from [facility]) 0912 (Given - Provider: Briana Astudillo RN) 0831 (Given - Provider: Debbie Kirkpatrick RN - Comment: this med taken by DANICA Matthew from [facility])1519 (Given - Provider: Debbie Kirkpatrick RN) melatonin tablet 3 mg 3 mg, Oral, NIGHTLY PRN, Starting on 09/16/24 at 1622, Until Nataliia 09/28/24 at 1932, Insomnia, Routine morphine 4 mg/mL injection 2 mg 2 mg, IV, EVERY 2 HOURS PRN, Starting on 09/16/24 at 1620, Until Nataliia 09/28/24 at 1932, Pain, Severe, Routine 203 (Given - Provider: Serene Steven RN) 0514 (Given - Provider: Serene Steven RN)1328 (Given - Provider: Briana Astudillo RN)1817 (Given - Provider: Briana Astudillo RN) 0049 (Given - Provider: Serene Steven RN) ondansetron (ZOFRAN) 4 mg/2 mL injection 4 mg 4 mg, IV, EVERY 6 HOURS PRN, Starting on 09/13/24 at 2055, Until Nataliia 09/28/24 at 1932, Nausea/Emesis, Routine sennosides (SENOKOT) tablet 17.2 mg 17.2 mg, Oral, TWO TIMES DAILY PRN, Starting on 09/16/24 at 1622, Until Nataliia 09/28/24 at 1932, Constipation, Routine documented in this encounter Additional Health Concerns Infection Onset Date Last Indicated Resolved Time R/O Respiratory 09/13/2024 09/13/2024 09/13/2024 1 0:56 PM MACHINE SIGN WRITER Respiratory Syncytial Virus (RSV) 09/14/2024 025 10/12/2024 1:16 AM MACHINE SIGN WRITER Assessment Noted Time PHQ-9 Depression Total Score: 1 04/20/20 24 11:16 PM CDT documented as of this encounter Care Teams Carpet Journeyman Relationship Specialty Start Date End Date Anu Thompson DO [address] [place] [address] PCP - General Family Practice 07/21/23 09/17/24 documented as of this encounter
--- OUTSIDE RECORDS SUMMARY | 2024-10-14 10:35 | XMS_ITS | Encounter Summary ---
Author Organization [facility] Address [address] [place] [address] Care Team Providers Care Cafe Assistant Name Role Phone Unavailable Primary Care Provider Unavailabl e Reason for Visit * Reason Onset Date Comments Information 10/02/2024 Social Work Jack antoine Encounter Details Date Type Department Care Team (Late st Contact Info) Description 10/02/2024 Telephone [facility] [address] [facility] [place] [address] Jacque Fam LCSW Information (Social Work Navigation) Social History Tobacco Use Types Packs/Day Years [...] on file Legal Sex Female 1:37 AM WOUND SPECIALIST Gender Identity Not on file Sexual Orientation Not on file documented as of this encounter Miscellaneous Notes * Telephone Encounter - Jacque Fam LCSW - 10/02/2024 3:54 PM WOUND SPECIALIST TC to the neighbor to ask that Saleem Carson call Dian Lea RN at 9:30 in the morning to discuss treatment and schedule. SW called [facility] transportation and has found the following rides have been arranged. Arranged: 10/05, 10/06, 10/09, 10/10, 10/12, 10/13, 10/16, 10/20. Not arranged: 10/11, 10/17, 10/18, 10/19, 10/23, 10/24. Patient has a HH room scheduled starting 10/14 through 11/22/24. Patient is to start treatment on 10/05, so we are working on a place for her to stay from 10/05 through 10/13. [facility] provided this SWer an alternative phone number for the patient. Nothing further provided at this time. SW remains available to assist through the course of her treatment. LORENA Moctezuma, HAM Mirror Installer/Patient Navigator for: Lung, H & N, Esophageal, Kidney, Colorectal, Bladder, Prostate patients [facility] D SPECIALIST documented in this encounter Plan of Treatment Upcoming Encounters Date Type Department Care Team (Late st Contact Info) Description 10/16/2024 11:00 AM WOUND SPECIALIST Appointment [facility] [address] [facility] [address] [place] [address] Rashmi Dumont MD [address] [place] [address] [facility] Oncology, Infusion 8 10/16/2024 1:45 PM WOUND SPECIALIST Appointment [facility] [address] [facility] [address] [place] [address] Karla Goldberg MD [address] [place] [address] 10/17/2024 1:45 PM WOUND SPECIALIST Appointment [facility] [address] [facility] [address] [place] [address] Karla Goldberg MD [address] [place] [phone] 10/18/2024 1:45 PM WOUND SPECIALIST Appointment [address] [phone] Karla Goldberg MD [address] [place] [phone] 10/19/2024 1:45 PM WOUND SPECIALIST Appointment [address] [phone] Karla Goldberg MD [address] [place] [phone] 10/20/2024 1:45 PM WOUND SPECIALIST Appointment [address] [phone] Karla Goldberg MD [address] [place] [phone] 10/23/2024 1:45 PM WOUND SPECIALIST Appointment [address] [phone] Karla Goldberg MD [address] [place] [phone] 10/24/2024 11:30 AM WOUND SPECIALIST Office Visit [facility] Ear Nose [facility] Throat Head Neck SGF [address] [place] [phone] Chris Flores MD [address] [place] [phone] 10/24/2024 1:45 PM WOUND SPECIALIST Appointment [address] [phone] Karla Goldberg MD [address] [place] [phone] 10/25/2024 1:45 PM WOUND SPECIALIST Appointment [address] [phone] Karla Goldberg MD [address] [place] [phone] 10/26/2024 1:45 PM WOUND SPECIALIST Appointment [address] [phone] Karla Goldberg MD [address] [place] [phone] 10/27/2024 1:45 PM WOUND SPECIALIST Appointment [address] [phone] Karla Goldberg MD [address] [place] [phone] 10/30/2024 1:45 PM CDT Appointment [address] [phone] Karla Goldberg MD [address] [place] [phone] 10/31/2024 1:45 PM CDT Appointment [address] [phone] Karla Goldberg MD [address] [place] [phone] 11/01/2024 1:45 PM CDT Appointment [address] [phone] Karla Goldberg MD [address] [place] [phone] 11/02/2024 1:45 PM CDT Appointment [address] [phone] Karla Goldberg MD [address] [place] [phone] 11/03/2024 1:45 PM CDT Appointment [address] [phone] Karla Goldberg MD [address] [place] [phone] 11/06/2024 1:45 PM CDT Appointment [address] [phone] Karla Goldberg MD [address] [place] [phone] 11/07/2024 1:45 PM CDT Appointment [address] [phone] Karla Goldberg MD [address] [place] [phone] 11/08/2024 1:45 PM CDT Appointment [address] [phone] Karla Goldberg MD [address] [place] [phone] 11/09/2024 1:45 PM CDT Appointment [address] [phone] Karla Goldberg MD [address] [place] [phone] 11/10/2024 1:45 PM CDT Appointment [address] [phone] Karla Goldberg MD [address] [place] [phone] 11/13/2024 1:45 PM CDT Appointment [address] [phone] Karla Goldberg MD [address] [place] [phone] 11/14/2024 1:45 PM CDT Appointment [address] [phone] Karla Goldberg MD [address] [place] [phone] 11/15/2024 12:45 PM CDT Appointment [place] [address] [place] [address] Karla Goldberg MD [address] [place] [phone] 11/16/2024 12:45 PM CDT Appointment [address] [phone] Karla Goldberg MD [address] [place] [phone] 11/17/2024 1:45 PM CDT Appointment [address] [phone] Karla Goldberg MD [address] [place] [phone] 11/20/2024 1:45 PM CDT Appointment [address] [phone] Karla Goldberg MD [address] [place] [phone] 11/21/2024 1:45 PM CDT Appointment [address] [phone] Karla Goldberg MD [address] [place] [phone] 11/22/2024 1:45 PM CDT Appointment [address] [phone] Karla Goldberg MD [address] [place] [phone] 11/23/2024 1:45 PM CDT Appointment [address] [phone] Karla Goldberg MD [address] [place] [phone] 11/24/2024 1:45 PM CDT Appointment [address] [phone] Karla Goldberg MD [address] [place] [phone] 11/27/2024 1:45 PM CDT Appointment [address] [phone] Karla Goldberg MD [address] [place] [phone] 11/28/2024 1:45 PM CDT Appointment [address] [phone] Karla Goldberg MD [address] [place] [phone] documented as of this encounter Visit Diagnoses Not on filedocumented in this encounter Additional Health Concerns Infection Onset Date Last Indicated Resolved Time Respiratory Syncytial Virus (RSV) 09/14/2024 025 10/12/2024 1:16 AM WOUND SPECIALIST Assessment Noted Time PHQ-9 Depression Total Score: 1 04/20/20 11:16 PM CDT documented as of this encounter
--- OUTSIDE RECORDS SUMMARY | 2024-10-14 10:35 | XMS_ITS | Encounter Summary ---
Author Organization [facility] Address [address] [place] [address] Care Team Providers Care Automotive Light Mechanic Name Role Phone Unavailable Primary Care Provider Unavailabl e Reason for Visit * Reason Comments Cancer Transportation Issue s Encounter Details Date Type Department Care Team (Late st Contact Info) Description 10/13/[address] [facility] [address] [facility] [place] [address] Jacque Fam LCSW Cancer (Transportation Issues) Social [...] on file Legal Sex Female 1:37 AM SIGNAL AND COMMUNICATIONS MAINTAINER Gender Identity Not on file Sexual Orientation Not on file documented as of this encounter Progress Notes * Jacque Fam LCSW - 10/13/2024 3:44 PM CST Met with the patient's to assist him with arranging MTM rides. I have called MTM and arranged her ride for Monday 10/16 appointment for chemo treatment at 11:00. Patient has no one that can stay with her though she will try to find someone over the weekend. Patient will let me know on Wednesday while she is here for treatment. If the patient cannot find someone to stay with her to assist with getting over to the [place] daily for treatment, SW will arrange daily rides for her. Mondays at 11:00 and at 1:45. SW will follow up with the patient on Wednesday to finalize plans for treatment schedule and rides. Nothing further provided at this time. SW remains available to assist through the course of her treatments. LORENA Moctezuma, HAM Student Finance Advisor/Patient Navigator for: Lung, H & N, Esophageal, Kidney, Colorectal, Bladder, Prostate patients [facility] AL AND COMMUNICATIONS MAINTAINER documented in this encounter Plan of Treatment Upcoming Encounters Date Type Department Care Team (Late st Contact Info) Description 10/16/2024 11:00 AM SIGNAL AND COMMUNICATIONS MAINTAINER Appointment [facility] Oncology [address] [place] [address] Rashmi Dumont MD [address] [place] [phone] [facility], [facility] 8 10/16/2024 1:45 PM SIGNAL AND COMMUNICATIONS MAINTAINER Appointment [address] [address] Karla Goldberg MD [address] [place] [phone] 10/17/2024 1:45 PM SIGNAL AND COMMUNICATIONS MAINTAINER Appointment [address] [place] [address] Karla Goldberg MD [address] [place] [phone] 10/18/2024 1:45 PM SIGNAL AND COMMUNICATIONS MAINTAINER Appointment [address] [address] Karla Goldberg MD [address] [place] [phone] 10/19/2024 1:45 PM SIGNAL AND COMMUNICATIONS MAINTAINER Appointment [address] [address] Karla Goldberg MD [address] [place] [phone] 10/20/2024 1:45 PM SIGNAL AND COMMUNICATIONS MAINTAINER Appointment [address] [address] Karla Goldberg MD [address] [place] [phone] 10/23/2024 1:45 PM SIGNAL AND COMMUNICATIONS MAINTAINER Appointment [address] [address] Karla Goldberg MD [address] [place] [phone] 10/24/2024 11:30 AM SIGNAL AND COMMUNICATIONS MAINTAINER Office Visit [facility] Ear Nose and Throat Head Neck SGF [address] [place] [address] Chris Flores MD [address] [place] [address]- 10/24/2024 1:45 PM SIGNAL AND COMMUNICATIONS MAINTAINER Appointment [address] [address] Karla Goldberg MD [address] [place] [phone] 10/25/2024 1:45 PM SIGNAL AND COMMUNICATIONS MAINTAINER Appointment [address] [address] Karla Goldberg MD [address] [place] [phone] 10/26/2024 1:45 PM SIGNAL AND COMMUNICATIONS MAINTAINER Appointment [address] [address] Karla Goldberg MD [address] [place] [phone] 10/27/2024 1:45 PM SIGNAL AND COMMUNICATIONS MAINTAINER Appointment [address] [address] Karla Goldberg MD [address] [place] [phone] 10/30/2024 1:45 PM CDT Appointment [address] [address] Karla Goldberg MD [address] [place] [phone] 10/31/2024 1:45 PM CDT Appointment [address] [address] Karla Goldberg MD [address] [place] [phone] 11/01/2024 1:45 PM CDT Appointment [address] [address] Karla Goldberg MD [address] [place] [phone] 11/02/2024 1:45 PM CDT Appointment [address] [address] Karla Goldberg MD [address] [place] [phone] 11/03/2024 1:45 PM CDT Appointment [address] [address] Karla Goldberg MD [address] [place] [phone] 11/06/2024 1:45 PM CDT Appointment [address] [address] Karla Goldberg MD [address] [place] [phone] 11/07/2024 1:45 PM CDT Appointment [address] [address] Karla Goldberg MD [address] [place] [phone] 11/08/2024 1:45 PM CDT Appointment [address] [address] Karla Goldberg MD [address] [place] [phone] 11/09/2024 1:45 PM CDT Appointment [address] [address] Karla Goldberg MD [address] [place] [phone] 11/10/2024 1:45 PM CDT Appointment [address] [address] Karla Goldberg MD [address] [place] [phone] 11/13/2024 1:45 PM CDT Appointment [address] [address] Karla Goldberg MD [address] [place] [phone] 11/14/2024 1:45 PM CDT Appointment [address] [address] Karla Goldberg MD [address] [place] [phone] 11/15/2024 12:45 PM CDT Appointment [address] [address] Karla Goldberg MD [address] [place] [phone] 11/16/2024 12:45 PM CDT Appointment [address] [address] Karla Goldberg MD [address] [place] [phone] 11/17/2024 1:45 PM CDT Appointment [address] [address] Karla Goldberg MD [address] [place] [phone] 11/20/2024 1:45 PM CDT Appointment [address] [address] Karla Goldberg MD [address] [place] [phone] 11/21/2024 1:45 PM CDT Appointment [address] [address] Karla Goldberg MD [address] [place] [phone] 11/22/2024 1:45 PM CDT Appointment [address] [address] Karla Goldberg MD [address] [place] [phone] 11/23/2024 1:45 PM CDT Appointment [address] [address] Karla Goldberg MD [address] [place] [phone] 11/24/2024 1:45 PM CDT Appointment [address] [address] Karla Goldberg MD [address] [place] [phone] 11/27/2024 1:45 PM CDT Appointment [address] [address] Karla Goldberg MD [address] [place] [phone] 11/28/2024 1:45 PM CDT Appointment [address] [address] Karla Goldberg MD [address] [place] [phone] documented as of this encounter Visit Diagnoses Not on filedocumented in this encounter Additional Health Concerns Assessment Noted Time PHQ-9 Depression Total Score: 1 04/20/20 24 11:16 PM CDT documented as of this encounter
--- OUTSIDE RECORDS SUMMARY | 2024-10-14 10:35 | XMS_ITS | Encounter Summary ---
Author Organization [facility] Address [address] [place] [address] Care Team Providers Care Blanket Cutting Machine Operator Name Role Phone Unavailable Primary Care Provider Unavailabl e Reason for Visit * Reason Onset Date Comments Medication Refill 10/11/2024 Encounter Details Date Type Department Care Team (Late st Contact Info) Description 10/11/2024 Refill [facility] Hematology [place] [address] [facility] 2 [place] [address] Rashmi Dumont MD [address] [place] [address] Social History Tobacco Use Types Packs/Day Years [...] on file Legal Sex Female 1:37 AM HACKSAW INSPECTOR Gender Identity Not on file Sexual Orientation Not on file documented as of this encounter Miscellaneous Notes * Telephone Encounter - Karla Saldana RN - 10/11/2024 11:15 AM HACKSAW INSPECTOR Pt calling - needing refill on med: HYDROcodone-acetaminophen (NORCO) 5- 325 mg tablet Pt has 1 tablet left NOTE: Pt has feeding tube and prefers liquid form of med Pharmacy: [facility] - [place], [place] - [address] [facility] [address] [facility] [address] Has not made palliative care appt yet Solution, oral: Generic: Hydrocodone bitartrate 7.5 mg and acetaminophen 325 mg per 15 mL (5 mL, 10 mL, 15 mL, 118 mL, 473 mL); Hydrocodone bitartrate 10 mg and acetaminophen 325 mg per 15 mL (7.5 mL [DSC], 15 mL [DSC], 473 mL) [facility] - has to fill all (maintenance) or none Getting maintenance at - [facility] [place], [facility] [address] [facility], [facility] [address] [place] [address] 3, [facility] [address] [facility] - does not have this med Call to pt - has appts in this week - call to pts so - this is neighbors phone - so #[phone] (n/a, could not LM, sent message re changing all meds to [facility] or sending to pharm near radiation/oncology offices in ) Pt states ok to transfer prescriptions from [facility] to [facility] - advised that she would need to contact [facility] re this transfer SAW INSPECTOR documented in this encounter Plan of Treatment Upcoming Encounters Date Type Department Care Team (Late st Contact Info) Description 10/16/2024 11:00 AM HACKSAW INSPECTOR Appointment [facility] [address] [facility] [address] [place] [address] Rashmi Dumont MD [address] [facility] [address] [place] [address] Spr Oncology, Infusion 8 10/16/2024 1:45 PM HACKSAW INSPECTOR Appointment [address] [phone] Karla Goldberg MD [address] [place] [phone] 10/17/2024 1:45 PM HACKSAW INSPECTOR Appointment [address] [address] Karla Goldberg MD [address] [place] [phone] 10/18/2024 1:45 PM HACKSAW INSPECTOR Appointment [address] [address] Karla Goldberg MD [address] [place] [phone] 10/19/2024 1:45 PM HACKSAW INSPECTOR Appointment [address] [address] Karla Goldberg MD [address] [place] [phone] 10/20/2024 1:45 PM HACKSAW INSPECTOR Appointment [address] [address] Karla Goldberg MD [address] [place] [phone] 10/23/2024 1:45 PM HACKSAW INSPECTOR Appointment [address] [address] Karla Goldberg MD [address] [place] [phone] 10/24/2024 11:30 AM HACKSAW INSPECTOR Office Visit [facility] Ear Nose and Throat Head Neck SGF [address] [place] [address] Chris Flores MD [address] [place] [address] 10/24/2024 1:45 PM HACKSAW INSPECTOR Appointment [address] [address] Karla Goldberg MD [address] [place] [phone] 10/25/2024 1:45 PM HACKSAW INSPECTOR Appointment [address] [address] Karla Goldberg MD [address] [place] [phone] 10/26/2024 1:45 PM HACKSAW INSPECTOR Appointment [address] [address] Karla Goldberg MD [address] [place] [phone] 10/27/2024 1:45 PM HACKSAW INSPECTOR Appointment [address] [address] Karla Goldberg MD [address] [place] [phone] 10/30/2024 1:45 PM CDT Appointment [address] [phone] Karla Goldberg MD [address] [place] [phone] 10/31/2024 1:45 PM CDT Appointment [address] [address] Karla Goldberg MD [address] [place] [phone] 11/01/2024 1:45 PM CDT Appointment [address] [address] Karla Goldberg MD [address] [place] [phone] 11/02/2024 1:45 PM CDT Appointment [address] [address] Karla Goldberg MD [address] [place] [phone] 11/03/2024 1:45 PM CDT Appointment [address] [address] Karla Goldberg MD [address] [place] [phone] 11/06/2024 1:45 PM CDT Appointment [address] [address] Karla Goldberg MD [address] [place] [phone] 11/07/2024 1:45 PM CDT Appointment [address] [address] Karla Goldberg MD [address] [place] [phone] 11/08/2024 1:45 PM CDT Appointment [address] [address] Karla Goldberg MD [address] [place] [phone] 11/09/2024 1:45 PM CDT Appointment [address] [address] Karla Goldberg MD [address] [place] [phone] 11/10/2024 1:45 PM CDT Appointment [address] [address] Karla Goldberg MD [address] [place] [phone] 11/13/2024 1:45 PM CDT Appointment [address] [address] Karla Goldberg MD [address] [place] [phone] 11/14/2024 1:45 PM CDT Appointment [address] [address] Karla Goldberg MD [address] [place] [phone] 11/15/2024 12:45 PM CDT Appointment [address] [address] Karla Goldberg MD [address] [place] [phone] 11/16/2024 12:45 PM CDT Appointment [address] [address] Karla Goldberg MD [address] [place] [phone] 11/17/2024 1:45 PM CDT Appointment [address] [address] Karla Goldberg MD [address] [place] [phone] 11/20/2024 1:45 PM CDT Appointment [address] [address] Karla Goldberg MD [address] [place] [phone] 11/21/2024 1:45 PM CDT Appointment [address] [address] Karla Goldberg MD [address] [place] [phone] 11/22/2024 1:45 PM CDT Appointment [address] [address] Karla Goldberg MD [address] [place] [phone] 11/23/2024 1:45 PM CDT Appointment [address] [address] Karla Goldberg MD [address] [place] [phone] 11/24/2024 1:45 PM CDT Appointment [address] [address] Karla Goldberg MD [address] [place] [phone] 11/27/2024 1:45 PM CDT Appointment [address] [address] Karla Goldberg MD [address] [place] [phone] 11/28/2024 1:45 PM CDT Appointment [address] [phone] Karla Goldberg MD [address] [place] [address] documented as of this encounter Visit Diagnoses Not on filedocumented in this encounter Additional Health Concerns Infection Onset Date Last Indicated Resolved Time Respiratory Syncytial Virus (RSV) 09/14/2024 025 10/12/2024 1:16 AM HACKSAW INSPECTOR Assessment Noted Time PHQ-9 Depression Total Score: 1 04/20/20 24 11:16 PM CDT documented as of this encounter
--- OUTSIDE RECORDS SUMMARY | 2024-10-14 10:35 | XMS_ITS | Encounter Summary ---
Author Organization [facility] Address [address] [place] [address] Care Team Providers Care Beach Patrol Lieutenant Name Role Phone Unavailable Primary Care Provider Unavailabl e Reason for Visit * Reason Onset Date Comments Medication Refill 10/12/2024 Encounter Details Date Type Department Care Team (Late st Contact Info) Description 10/12/2024 Refill [facility] Cancer and Hematology [place] [address] [facility] [place] [address] Rashmi Dumont MD [address] [place] [address] Laryngeal squamous cell carcinoma (CMS/HCC) [...] on file Legal Sex Female 1:37 AM NEWSPAPER INSERTER Gender Identity Not on file Sexual Orientation Not on file documented as of this encounter Plan of Treatment Upcoming Encounters Date Type Department Care Team (Late st Contact Info) Description 10/16/2024 11:00 AM NEWSPAPER INSERTER Appointment [facility] Oncology Infusion Cancer [place] [address] [facility] [address] [place] [address] Rashmi Dumont MD [address] [facility] [address] [place] [phone] [address] [facility] Oncology, Infusion 8 10/16/2024 1:45 PM NEWSPAPER INSERTER Appointment [facility] [address] [place] [address] 10 [place] [address] Karla Goldberg MD [address] [place] [phone] 10/17/2024 1:45 PM NEWSPAPER INSERTER Appointment [address] [address] Karla Goldberg MD [address] [place] [phone] 10/18/2024 1:45 PM NEWSPAPER INSERTER Appointment [address] [address] Karla Goldberg MD [address] [place] [phone] 10/19/2024 1:45 PM NEWSPAPER INSERTER Appointment [address] [address] Karla Goldberg MD [address] [place] [phone] 10/20/2024 1:45 PM NEWSPAPER INSERTER Appointment [address] [address] Karla Goldberg MD [address] [place] [phone] 10/23/2024 1:45 PM NEWSPAPER INSERTER Appointment [address] [address] Karla Goldberg MD [address] [place] [phone] 10/24/2024 11:30 AM NEWSPAPER INSERTER Office Visit [facility] Ear Nose and Throat Head Neck SGF [address] [place] [address] Chris Flores MD [address] [place] [address] 10/24/2024 1:45 PM NEWSPAPER INSERTER Appointment [address] [address] Karla Goldberg MD [address] [place] [phone] 10/25/2024 1:45 PM NEWSPAPER INSERTER Appointment [address] [address] Karla Goldberg MD [address] [place] [phone] 10/26/2024 1:45 PM NEWSPAPER INSERTER Appointment [address] [address] Karla Goldberg MD [address] [place] [phone] 10/27/2024 1:45 PM NEWSPAPER INSERTER Appointment [address] [address] Karla Goldberg MD [address] [place] [phone] 10/30/2024 1:45 PM CDT Appointment [address] [address] Karla Goldberg MD [address] [place] [phone] 10/31/2024 1:45 PM CDT Appointment [address] [address] Karla Goldberg MD [address] [place] [phone] 11/01/2024 1:45 PM CDT Appointment [address] [address] Karla Goldberg MD [address] [place] [phone] 11/02/2024 1:45 PM CDT Appointment [address] [address] Karla Goldberg MD [address] [place] [phone] 11/03/2024 1:45 PM CDT Appointment [address] [phone] Karla Goldberg MD [address] [place] [phone] 11/06/2024 1:45 PM CDT Appointment [address] [address] Karla Goldberg MD [address] [place] [phone] 11/07/2024 1:45 PM CDT Appointment [address] [address] Karla Goldberg MD [address] [place] [phone] 11/08/2024 1:45 PM CDT Appointment [address] [address] Karla Goldberg MD [address] [place] [phone] 11/09/2024 1:45 PM CDT Appointment [address] [address] Karla Goldberg MD [address] [place] [phone] 11/10/2024 1:45 PM CDT Appointment [address] [address] Karla Goldberg MD [address] [place] [phone] 11/13/2024 1:45 PM CDT Appointment [address] [address] Karla Goldberg MD [address] [place] [phone] 11/14/2024 1:45 PM CDT Appointment [address] [address] Karla Goldberg MD [address] [place] [phone] 11/15/2024 12:45 PM CDT Appointment [address] [address] Karla Goldberg MD [address] [place] [phone] 11/16/2024 12:45 PM CDT Appointment [address] [address] Karla Goldberg MD [address] [place] [phone] 11/17/2024 1:45 PM CDT Appointment [address] [address] Karla Goldberg MD [address] [place] [phone] 11/20/2024 1:45 PM CDT Appointment [address] [place] [address] Karla Goldberg MD [address] [place] [phone] 11/21/2024 1:45 PM CDT Appointment [address] [address] Karla Goldberg MD [address] [place] [phone] 11/22/2024 1:45 PM CDT Appointment [address] [address] Karla Goldberg MD [address] [place] [phone] 11/23/2024 1:45 PM CDT Appointment [address] [address] Karla Goldberg MD [address] [place] [phone] 11/24/2024 1:45 PM CDT Appointment [address] [address] Karla Goldberg MD [address] [place] [phone] 11/27/2024 1:45 PM CDT Appointment [address] [address] Karla Goldberg MD [address] [place] [phone] 11/28/2024 1:45 PM CDT Appointment [facility] [address] [place] [address] Karla Goldberg MD [address]54 [place] [address] documented as of this encounter Visit Diagnoses Diagnosis 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
--- OUTSIDE RECORDS SUMMARY | 2024-10-14 10:35 | XMS_ITS | Encounter Summary ---
Author Organization [facility] Address [address] [place] [address] Care Team Providers Care Regasification Plant Operator Name Role Phone Unavailable Primary Care Provider Unavailabl e Encounter Details Date Type Department Care Team (Latest Contact Info) Description 09/29/2024 8:00 AM BAR AND FILLER ASSEMBLER - 09/29/2024 11:59 PM BAR AND FILLER ASSEMBLER Hospital Encounter [facility] Rad[facility] [address] [facility] [address] [place] [address] Discharge Disposition: Home or Self Care Social [...] on file Legal Sex Female 1:37 AM BAR AND FILLER ASSEMBLER Gender Identity Not on file Sexual Orientation Not on file documented as of this encounter Medications at Time of Discharge naloxone (NARCAN) 4 mg/spray [place], Non-Aerosol EMERGENCY USE ONLY: Administer 1 spray (4 mg) in one nostril one time. May repeat in alternating nostrils every 2-3 min until responsive or EMS arrives. 2 Each 3 09/28/2024 5:11 PM BAR AND FILLER ASSEMBLER 5 trach supplies Surgery Date: 09/17/2025 Length [...] 14 days. 28 Tablet 09/28/2024 5:11 PM BAR AND FILLER ASSEMBLER 5 10/12/19 25 ondansetron (ZOFRAN ODT) 8 [...] 10/05/19 25 documented as of this encounter Plan of Treatment Upcoming Encounters Date Type Department Care Team (Late st Contact Info) Description 10/16/2024 11:00 AM BAR AND FILLER ASSEMBLER Appointment [facility] Oncology [facility] [address] [place] [address] [address] [place] [phone] Rashmi Dumont MD [address] [place] [address] [address] [place] [address] [facility] Oncology, [facility] 8 10/16/2024 1:45 PM BAR AND FILLER ASSEMBLER Appointment [address] [place] [address] Karla Goldberg MD [address] [place] [phone] 10/17/2024 1:45 PM BAR AND FILLER ASSEMBLER Appointment [address] [phone] Karla Goldberg MD [address] [place] [phone] 10/18/2024 1:45 PM BAR AND FILLER ASSEMBLER Appointment [address] [address] Karla Goldberg MD [address] [place] [phone] 10/19/2024 1:45 PM BAR AND FILLER ASSEMBLER Appointment [address] [address] Karla Goldberg MD [address] [place] [phone] 10/20/2024 1:45 PM BAR AND FILLER ASSEMBLER Appointment [address] [address] Karla Goldberg MD [address] [place] [phone] 10/23/2024 1:45 PM BAR AND FILLER ASSEMBLER Appointment [address] [address] Karla Goldberg MD [address] [place] [phone] 10/24/2024 11:30 AM BAR AND FILLER ASSEMBLER Office Visit [facility] [address] [place] [phone] Chris Flores MD [address] [place] [address] 10/24/2024 1:45 PM BAR AND FILLER ASSEMBLER Appointment [address] [address] Karla Goldberg MD [address] [place] [phone] 10/25/2024 1:45 PM BAR AND FILLER ASSEMBLER Appointment [address] [address] Karla Goldberg MD [address] [place] [phone] 10/26/2024 1:45 PM BAR AND FILLER ASSEMBLER Appointment [address] [address] Karla Goldberg MD [address] [place] [phone] 10/27/2024 1:45 PM BAR AND FILLER ASSEMBLER Appointment [address] [phone] Karla Goldberg MD [address] [place] [phone] 10/30/2024 1:45 PM CDT Appointment [address] [phone] Karla Goldberg MD [address] [place] [phone] 10/31/2024 1:45 PM CDT Appointment [address] [address] Karla Goldberg MD [address] [place] [phone] 11/01/2024 1:45 PM CDT Appointment [address] [address] Karla Goldberg MD [address] [place] [phone] 11/02/2024 1:45 PM CDT Appointment [address] [address] Karla Goldberg MD [address] [place] [phone] 11/03/2024 1:45 PM CDT Appointment [address] [address] Karla Goldberg MD [address] [place] [address] 11/06/2024 1:45 PM CDT Appointment [address] [phone] Karla Goldberg MD [address] [place] [phone] 11/07/2024 1:45 PM CDT Appointment [address] [address] Karla Goldberg MD [address] [place] [phone] 11/08/2024 1:45 PM CDT Appointment [address] [address] Karla Goldberg MD [address] [place] [phone] 11/09/2024 1:45 PM CDT Appointment [address] [address] Karla Goldberg MD [address] [place] [phone] 11/10/2024 1:45 PM CDT Appointment [address] [address] Karal Goldberg MD [address] [place] [phone] 11/13/2024 1:45 PM CDT Appointment [address] [phone] Karla Goldberg MD [address] [place] [phone] 11/14/2024 1:45 PM CDT Appointment [address] [address] Karla Goldberg MD [address] [place] [phone] 11/15/2024 12:45 PM CDT Appointment [address] [address] Krala Goldberg MD [address] [place] [phone] 11/16/2024 12:45 PM CDT Appointment [address] [address] Karla Goldberg MD [address] [place] [phone] 11/17/2024 1:45 PM CDT Appointment [address] [address] Karla Goldberg MD [address] [place] [phone] 11/20/2024 1:45 PM CDT Appointment [address] [address] Karla Goldberg MD [address] [place] [phone] 11/21/2024 1:45 PM CDT Appointment [address] [phone] Karla Goldberg MD [address] [place] [phone] 11/22/2024 1:45 PM CDT Appointment [address] [address] Karla Goldberg MD [address] [place] [phone] 11/23/2024 1:45 PM CDT Appointment [address] [address] Karla Goldberg MD [address] [place] [phone] 11/24/2024 1:45 PM CDT Appointment [address] [address] Karla Goldberg MD [address] [place] [phone] 11/27/2024 1:45 PM CDT Appointment [address] [phone] Karla Goldberg MD [address] [place] [address] 11/28/2024 1:45 PM CDT Appointment [facility] Rad[facility] [address] [address] Karla Goldberg MD [address] [place] [address] documented as of this encounter Visit Diagnoses Not on filedocumented in this encounter Additional Health Concerns Infection Onset Date Last Indicated Resolved Time Respiratory Syncytial Virus (RSV) 09/14/2024 025 10/12/2024 1:16 AM BAR AND FILLER ASSEMBLER Assessment Noted Time PHQ-9 Depression Total Score: 1 04/20/20 24 11:16 PM CDT documented as of this encounter
--- OUTSIDE RECORDS SUMMARY | 2024-10-14 10:36 | XMS_ITS | Encounter Summary ---
Author Organization [facility] Address [address] [place] [address] Care Team Providers Care Chainstitch Zipper Setter Name Role Phone Unavailable Primary Care Provider Unavailabl e Reason for Visit * Radiation Therapy (Routine) - Authorized Specialty Diagnoses / Procedures Referred By Contac t Referred To Contact Radiation Oncology Diagnoses Carcinoma larynx (CMS/HCC) Procedures SC OFFICE/OUTPATIENT ESTABLISHED MOD MDM 30 MIN SC OFFICE/OUTPATIENT NEW MODERATE MDM 45 MINUTES 20982, 87770, 68787, [address], 17719*2, 85460*2, 79566*35, 75960*35, 65925*7, 33088*7 Chris Flores MD [address] [address] Phone: tel: fax: Karla Goldberg MD [address] [place] [address] Phone: tel: fax: Referral ID Status Reason Start Date Expiration Date V isits Requested Visits Authorized [id number] Authorized 06/22/2024 06/22/2025 50 50 Encounter Details Date Type Department Care Team (Latest Contact Info) Description 10/13/2024 1:30 PM ARMORED CAR DRIVER - 10/13/2024 11:59 PM ARMORED CAR DRIVER Hospital Encounter [facility] Radiation Oncology Cancer Center [address] [facility] 10 [place] [phone] Karla Goldberg MD [address] [place] [address] Arrived Discharge Disposition: Home or Self Care Social [...] on file Legal Sex Female 1:37 AM ARMORED CAR DRIVER Gender Identity Not on file Sexual Orientation Not on file documented as of this encounter Medications at Time of Discharge HYDROcodone-acetam inophen (NORCO) 7.5-325 mg TabletIndications: Laryngeal squamous cell carcinoma (CMS/HCC) 1 tab via gtube as directed every 6 hours prn pain 60 Tablet 10/12/2024 clopidogreL (PLAVIX) 75 mg Tablet 1 Tablet [...] 20 Tablet 10/05/2024 naloxone (NARCAN) 4 mg/spray [place], Non-Aerosol EMERGENCY USE ONLY: Administer 1 spray (4 mg) in one nostril one time. May repeat in alternating nostrils every 2-3 min until responsive or EMS arrives. 2 Each 3 09/28/2024 5:11 PM ARMORED CAR DRIVER 09/28/2024 trach supplies Surgery Date: 09/17/2025 Length of Need: 99 months Brand shidylan, Size 6 FR Cuffed: no, Fenestrated: no,1 [...] tongue every 5 minutes as needed. 05/26/2024 documented as of this encounter Progress Notes * Alexandrea Arevalo, RN - 10/13/2024 1:45 PM CST Called down to the treatment machine, patient having issue breathing. She wears oxygen at home, butdid not wear it on her way here. Placed her on 4 liters of O2. Still unable to lie on the table, took her into an exam room and attempted to assist her into relaxing, She attempted to try a second time, but unable to get on the table due to anxiety. Discussed with Dr Michelle, she had taken her painmedication and xanax approximately 30-45 minutes ago. He ordered another xanax 0.5mg at this time. Will leave her on the oxygen and attempt to try again after the medication takes effect. RED CAR DRIVER documented in this encounter Plan of Treatment Upcoming Encounters Date Type Department Care Team (Late st Contact Info) Description 10/16/2024 11:00 AM ARMORED CAR DRIVER Appointment [facility] [address] [place] [address] [address] [place] [address] Rashmi Dumont MD [address] [place] [address] [address] [place] [address] [facility] Oncology, [facility] 8 10/16/2024 1:45 PM ARMORED CAR DRIVER Appointment [address] [place] [address] Karla Godlberg MD [address] [place] [phone] 10/17/2024 1:45 PM ARMORED CAR DRIVER Appointment [address] [place] [address] Karla Goldberg MD [address] [place] [phone] 10/18/2024 1:45 PM ARMORED CAR DRIVER Appointment [address] [place] [address] Karla Goldberg MD [address] [place] [phone] 10/19/2024 1:45 PM ARMORED CAR DRIVER Appointment [address] [place] [address] Karla Goldberg MD [address] [place] [phone] 10/20/2024 1:45 PM ARMORED CAR DRIVER Appointment [address] [address] Karla Goldberg MD [address] [place] [phone] 10/23/2024 1:45 PM ARMORED CAR DRIVER Appointment [address] [address] Karla Goldberg MD [address] [place] [phone] 10/24/2024 11:30 AM ARMORED CAR DRIVER Office Visit [facility] Ear N[facility] Th[facility] Head [facility]ck S[facility] [address] [place] [address] Chris Flores MD [address] [place] [address] 10/24/2024 1:45 PM ARMORED CAR DRIVER Appointment [address] [address] Karla Goldberg MD [address] [place] [phone] 10/25/2024 1:45 PM ARMORED CAR DRIVER Appointment [address] [address] Karla Goldberg MD [address] [place] [phone] 10/26/2024 1:45 PM ARMORED CAR DRIVER Appointment [address] [address] Karla Goldberg MD [address] [place] [phone] 10/27/2024 1:45 PM ARMORED CAR DRIVER Appointment [address] [address] Karla Goldberg MD [address] [place] [phone] 10/30/2024 1:45 PM CDT Appointment [address] [address] Karla Goldberg MD [address] [place] [phone] 10/31/2024 1:45 PM CDT Appointment [address] [address] Karla Goldberg MD [address] [place] [phone] 11/01/2024 1:45 PM CDT Appointment [address] [address] Karla Goldberg MD [address] [place] [phone] 11/02/2024 1:45 PM CDT Appointment [address] [address] Karla Goldberg MD [address] [place] [phone] 11/03/2024 1:45 PM CDT Appointment [address] [phone] aKrla Goldberg MD [address] [place] [address] 11/06/2024 1:45 PM CDT Appointment [address] [address] Karla Goldberg MD [address] [place] [phone] 11/07/2024 1:45 PM CDT Appointment [address] [address] Karla Goldberg MD [address] [place] [phone] 11/08/2024 1:45 PM CDT Appointment [address] [address] Karla Goldberg MD [address] [place] [phone] 11/09/2024 1:45 PM CDT Appointment [address] [address] Karla Goldberg MD [address] [place] [phone] 11/10/2024 1:45 PM CDT Appointment [address] [address] Karla Goldberg MD [address] [place] [address] 11/13/2024 1:45 PM CDT Appointment [address] [address] Karla Goldberg MD [address] [place] [phone] 11/14/2024 1:45 PM CDT Appointment [address] [address] Karla Goldberg MD [address] [place] [phone] 11/15/2024 12:45 PM CDT Appointment [address] [address] Karla Goldberg MD [address] [place] [phone] 11/16/2024 12:45 PM CDT Appointment [address] [address] Karla Goldberg MD [address] [place] [phone] 11/17/2024 1:45 PM CDT Appointment [address] [phone] Karla Goldberg MD [address] [place] [phone] 11/20/2024 1:45 PM CDT Appointment [address] [address] Karla Goldberg MD [address] [place] [phone] 11/21/2024 1:45 PM CDT Appointment [address] [address] Karla Goldberg MD [address] [place] [phone] 11/22/2024 1:45 PM CDT Appointment [address] [address] Karla Goldberg MD [address] [place] [phone] 11/23/2024 1:45 PM CDT Appointment [address] [address] Karla Goldberg MD [address] [place] [phone] 11/24/2024 1:45 PM CDT Appointment [address] [address] Karla Goldberg MD [address] [place] [phone] 11/27/2024 1:45 PM CDT Appointment [address] [address] Karla Goldberg MD [address] [place] [phone] 11/28/2024 1:45 PM CDT Appointment [address] [address] Karla Goldberg MD [address] [place] [phone] documented as of this encounter Visit Diagnoses Not on filedocumented in this encounter Administered Medications Inactive Administered Medications - up to 3 most recent administrations Medication Order MAR Action Action Date Dose Rate Site ALPRAZolam (XANAX) tablet 0.5 mg 0.5 mg, Oral, ONE TIME ONLY, 1 dose, On Wed10/13/24 at 1445, Routine Given 10/13/2024 2:33 PM ARMORED CAR DRIVER 0.5 mg documented in this encounter Additional Health Concerns Assessment Noted Time PHQ-9 Depression Total Score: 1 04/20/20 24 11:16 PM CDT documented as of this encounter
--- OUTSIDE RECORDS SUMMARY | 2024-10-14 10:36 | XMS_ITS | Encounter Summary ---
Author Organization [facility] Address [address] [place] [address] Care Team Providers Care Call Center Representative Name Role Phone Unavailable Primary Care Provider Unavailabl e Encounter Details Date Type Department Care Team (Late Contact Info) Description 10/13/2024 External Device Data STL ABSTRACTION Provider, [...] on file Legal Sex Female 1:37 AM LIBRARY DIRECTOR Gender Identity Not on file Sexual Orientation Not on file documented as of this encounter Plan of Treatment Upcoming Encounters Date Type Department Care Team (Late Contact Info) Description 10/16/2024 11:00 AM LIBRARY DIRECTOR Appointment [facility] Oncology Infusion [facility] Center [address] [facility] [address] [place] [address] Rashmi Dumont MD [address] [facility] [address] [place] [address] [facility] Oncology, Infusion 8 10/16/2024 1:45 PM LIBRARY DIRECTOR Appointment [address] [address] Karla Goldberg MD [address] [place] [phone] 10/17/2024 1:45 PM LIBRARY DIRECTOR Appointment [address] [address] Karla Goldberg MD [address] [place] [phone] 10/18/2024 1:45 PM LIBRARY DIRECTOR Appointment [address] [address] Karla Goldberg MD [address] [place] [phone] 10/19/2024 1:45 PM LIBRARY DIRECTOR Appointment [address] [address] Karla Goldberg MD [address] [place] [phone] 10/20/2024 1:45 PM LIBRARY DIRECTOR Appointment [address] [address] Karla Goldberg MD [address] [place] [phone] 10/23/2024 1:45 PM LIBRARY DIRECTOR Appointment [address] [address] Karla Goldberg MD [address] [place] [phone] 10/24/2024 11:30 AM LIBRARY DIRECTOR Office Visit [facility] Ear Nose and Thro[facility] Head Neck SGF [address] [place] [address] Chris Flores MD [address] [place] [address] 10/24/2024 1:45 PM LIBRARY DIRECTOR Appointment [address] [address] Karla Goldberg MD [address] [place] [phone] 10/25/2024 1:45 PM LIBRARY DIRECTOR Appointment [address] [address] Karla Goldberg MD [address] [place] [phone] 10/26/2024 1:45 PM LIBRARY DIRECTOR Appointment [address] [address] Karla Goldberg MD [address] [place] [phone] 10/27/2024 1:45 PM LIBRARY DIRECTOR Appointment [address] [address] Karla Goldberg MD [address] [place] [phone] 10/30/2024 1:45 PM CDT Appointment [address] [address] Karla Goldberg MD [address] [place] [phone] 10/31/2024 1:45 PM CDT Appointment [address] [address] Karla Goldberg MD [address] [place] [phone] 11/01/2024 1:45 PM CDT Appointment [address] [address] Karla Goldberg MD [address] [place] [phone] 11/02/2024 1:45 PM CDT Appointment [address] [address] Karla Goldberg MD [address] [place] [phone] 11/03/2024 1:45 PM CDT Appointment [address] [address] Karla Goldberg MD [address] [place] [phone] 11/06/2024 1:45 PM CDT Appointment [address] [address] Karla Goldberg MD [address] [place] [phone] 11/07/2024 1:45 PM CDT Appointment [address] [phone] Karla Goldberg MD [address] [place] [phone] 11/08/2024 1:45 PM CDT Appointment [address] [address] Karla Goldberg MD [address] [place] [phone] 11/09/2024 1:45 PM CDT Appointment [address] [address] Karla Goldberg MD [address] [place] [phone] 11/10/2024 1:45 PM CDT Appointment [address] [address] Karla Goldberg MD [address] [place] [phone] 11/13/2024 1:45 PM CDT Appointment [address] [address] Karla Goldberg MD [address] [place] [phone] 11/14/2024 1:45 PM CDT Appointment [address] [address] Karla Goldberg MD [address] [place] [phone] 11/15/2024 12:45 PM CDT Appointment [address] [address] Karla Goldberg MD [address] [place] [phone] 11/16/2024 12:45 PM CDT Appointment [address] [address] Karla Goldberg MD [address] [place] [phone] 11/17/2024 1:45 PM CDT Appointment [address] [address] Karla Goldberg MD [address] [place] [phone] 11/20/2024 1:45 PM CDT Appointment [address] [address] Karla Goldberg MD [address] [place] [phone] 11/21/2024 1:45 PM CDT Appointment [address] [address] Karla Goldberg MD [address] [place] [phone] 11/22/2024 1:45 PM CDT Appointment [address] [address] Karla Goldberg MD [address] [place] [phone] 11/23/2024 1:45 PM CDT Appointment [address] [address] Karla Goldberg MD [address] [place] [phone] 11/24/2024 1:45 PM CDT Appointment [address] [address] Karla Goldberg MD [address] [place] [phone] 11/27/2024 1:45 PM CDT Appointment [address] [address] Karla Goldberg MD [address] [place] [phone] 11/28/2024 1:45 PM CDT Appointment [address] [address] Karla Goldberg MD [address] [place] [phone] documented as of this encounter Visit Diagnoses Not on filedocumented in this encounter Additional Health Concerns Assessment Noted Time PHQ-9 Depression Total Score: 1 04/20/20 24 11:16 PM CDT documented as of this encounter
--- OUTSIDE RECORDS SUMMARY | 2024-10-14 10:36 | XMS_ITS | Encounter Summary ---
Author Organization [facility] Address [address] [place] [address] Care Team Providers Care Embryology Teacher Name Role Phone Anu Thompson DO Primary Care Provider Reason for Visit * Reason Comments Provider Call Encounter Details Date Type Department Care Team (Late st Contact Info) Description 09/07/2024 Telephone [facility] Medicine [place] [address] [place] [phone] Anu Thompson DO [address] [place] [phone] Provider Call Social History Tobacco Use Types Packs/Day Years [...] on file Legal Sex Female 1:37 AM READING EFFICIENCY COURSE DIRECTOR Gender Identity Not on file Sexual Orientation Not on file documented as of this encounter Miscellaneous Notes * Telephone Encounter - Jeremy Sales - 09/07/2024 4:24 PM CST Copied from [facility] #[id number]. Topic: [id number] Call >> Sep 07, 2024 4:21 PM Jeremy Reardon wrote: Caller is requesting to speak with Clinical Care Team. Caller Name: Jessica mota/ Dr[facility] Ger[facility] Callback Number: [phone] Clinician Type: Other healthcare professional not listed above Call Notes: states that the patient was scheduled for surgery to extract her remaining teeth two weeks ago. The patient had upper respiratory symptoms at the time, the doctor wanted her to get checked out by her pcp. The patient is reporting that she has been seen, but her chart is not reflecting that. is requesting a call back to verify. Is this addressing an immediate patient care need? No ING EFFICIENCY COURSE DIRECTOR documented in this encounter Plan of Treatment Upcoming Encounters Date Type Department Care Team (Late st Contact Info) Description 10/16/2024 11:00 AM READING EFFICIENCY COURSE DIRECTOR Appointment [facility] Oncology [address] [place] [phone] Rashmi Dumont MD [address] [place] [address] [address] [place] [phone] [facility] Oncology, [facility] 8 10/16/2024 1:45 PM READING EFFICIENCY COURSE DIRECTOR Appointment [address] [phone] Karla Goldberg MD [address] [place] [phone] 10/17/2024 1:45 PM READING EFFICIENCY COURSE DIRECTOR Appointment [address] [place] [address] Karla Goldberg MD [address] [place] [phone] 10/18/2024 1:45 PM READING EFFICIENCY COURSE DIRECTOR Appointment [address] [phone] Karla Goldberg MD [address] [place] [phone] 10/19/2024 1:45 PM READING EFFICIENCY COURSE DIRECTOR Appointment [address] [phone] Karla Goldberg MD [address] [place] [phone] 10/20/2024 1:45 PM READING EFFICIENCY COURSE DIRECTOR Appointment [address] [phone] Karla Goldberg MD [address] [place] [phone] 10/23/2024 1:45 PM READING EFFICIENCY COURSE DIRECTOR Appointment [address] [phone] Karla Goldberg MD [address] [place] [phone] 10/24/2024 11:30 AM READING EFFICIENCY COURSE DIRECTOR Office Visit [facility] N[facility] Th[facility] [address] [place] [phone] Chris Flores MD [address] [place] [address] 10/24/2024 1:45 PM READING EFFICIENCY COURSE DIRECTOR Appointment [address] [phone] Karla Goldberg MD [address] [place] [phone] 10/25/2024 1:45 PM READING EFFICIENCY COURSE DIRECTOR Appointment [address] [phone] Karla Goldberg MD [address] [place] [phone] 10/26/2024 1:45 PM READING EFFICIENCY COURSE DIRECTOR Appointment [address] [phone] Karla Goldberg MD [address] [place] [phone] 10/27/2024 1:45 PM READING EFFICIENCY COURSE DIRECTOR Appointment [address] [phone] Karla Goldberg MD [address] [place] [phone] 10/30/2024 1:45 PM CDT Appointment [address] [phone] Karla Goldberg MD [address] [place] [phone] 10/31/2024 1:45 PM CDT Appointment [address] [phone] Karla Goldberg MD [address] [place] [phone] 11/01/2024 1:45 PM CDT Appointment [address] [phone] Karla Goldberg MD [address] [place] [phone] 11/02/2024 1:45 PM CDT Appointment [address] [phone] Karla Goldberg MD [address] [place] [phone] 11/03/2024 1:45 PM CDT Appointment [address] [phone] Karla Goldberg MD [address] [place] [phone] 11/06/2024 1:45 PM CDT Appointment [address] [phone] Karla Goldberg MD [address] [place] [phone] 11/07/2024 1:45 PM CDT Appointment [address] [phone] Karla Goldberg MD [address] [place] [phone] 11/08/2024 1:45 PM CDT Appointment [address] [phone] Karla Goldberg MD [address] [place] [phone] 11/09/2024 1:45 PM CDT Appointment [address] [phone] Karla Goldberg MD [address] [place] [phone] 11/10/2024 1:45 PM CDT Appointment [address] [phone] Karla Goldberg MD [address] [place] [phone] 11/13/2024 1:45 PM CDT Appointment [address] [phone] Karla Goldberg MD [address] [place] [phone] 11/14/2024 1:45 PM CDT Appointment [address] [phone] Karla Goldberg MD [address] [place] [phone] 11/15/2024 12:45 PM CDT Appointment [address] [phone] Karla Goldberg MD [address] [place] [phone] 11/16/2024 12:45 PM CDT Appointment [address] [phone] Karla Goldberg MD [address] [place] [phone] 11/17/2024 1:45 PM CDT Appointment [address] [phone] Karla Goldberg MD [address] [place] [phone] 11/20/2024 1:45 PM CDT Appointment [address] [phone] Karla Goldberg MD [address] [place] [phone] 11/21/2024 1:45 PM CDT Appointment [address] [phone] Karla Goldberg MD [address] [place] [phone] 11/22/2024 1:45 PM CDT Appointment [address] [phone] Karla Goldberg MD [address] [place] [phone] 11/23/2024 1:45 PM CDT Appointment [address] [place] [address] Karla Goldberg MD [address] [place] [phone] 11/24/2024 1:45 PM CDT Appointment [address] [phone] Karla Goldberg MD [address] [place] [phone] 11/27/2024 1:45 PM CDT Appointment [address] [phone] Karla Goldberg MD [address] [place] [phone] 11/28/2024 1:45 PM CDT Appointment [address] [phone] Karla Goldberg MD [address] [place] [phone] documented as of this encounter Visit Diagnoses Not on filedocumented in this encounter Additional Health Concerns Infection Onset Date Last Indicated Resolved Time R/O Respiratory 09/13/2024 09/13/2024 09/13/2024 1 0:56 PM READING EFFICIENCY COURSE DIRECTOR Respiratory Syncytial Virus (RSV) 09/14/2024 025 10/12/2024 1:16 AM READING EFFICIENCY COURSE DIRECTOR Assessment Noted Time PHQ-9 Depression Total Score: 1 04/20/20 24 11:16 PM CDT documented as of this encounter Care Teams Embryology Teacher Relationship Specialty Start Date End Date Anu Thompson DO [address] [place] [address] PCP - General Family Practice 07/21/23 09/17/24 documented as of this encounter
--- OUTSIDE RECORDS SUMMARY | 2024-10-14 10:36 | XMS_ITS | Encounter Summary ---
Author Organization [facility] Address [address] [place] [address] Care Team Providers Care Development System Efficiency Manager Name Role Phone Unavailable Primary Care Provider Unavailabl e Reason for Visit * Auth/Cert (Routine) Specialty Diagnoses / Procedures Referred By Celso blanton Referred To Contact Emergency Medicine [facility] Emergency Department [address] [place] [phone] Phone: tel: fax: Referral ID Status Reason Start Date Expiration Date Visits Re quested Visits Authorized [id number] 1 1 Encounter Details Date Type Department Care Team (Latest Contact Info) Description 09/20/2024 10:00 AM COMMUNICATIONS MAINTAINER - 09/20/2024 11:59 PM COMMUNICATIONS MAINTAINER Hospital Encounter [facility] [address] [phone] Discharge Disposition: Home or Self Care [...] on file Legal Sex Female 1:37 AM COMMUNICATIONS MAINTAINER Gender Identity Not on file Sexual Orientation Not on file documented as of this encounter Medications at Time of Discharge naloxone (NARCAN) 4 mg/spray [place], Non-Aerosol EMERGENCY USE ONLY: Administer 1 spray (4 mg) in one nostril one time. May repeat in alternating nostrils every 2-3 min until responsive or EMS arrives. 2 Each 3 09/28/2024 5:11 PM COMMUNICATIONS MAINTAINER 5 trach supplies Surgery Date: 09/17/2025 Length [...] 14 days. 28 Tablet 09/28/2024 5:11 PM COMMUNICATIONS MAINTAINER 5 10/12/19 25 ondansetron (ZOFRAN ODT) 8 [...] as needed. 2 Tablet 4 10/05/19 25 hydrALAZINE (APRESOLINE) 50 mg tablet Take 50 mg by mouth 4 times daily. 09/28/19 25 cloNIDine HCL (CATAPRES) 0.1 mg tablet Take 0.1 mg by mouth daily. 09/28/19 25 clopidogreL (PLAVIX) 75 mg Tablet 75 mg by G Tube route daily. 4 10/05/19 25 metoprolol tartrate (LOPRESSOR) 25 mg tablet 25 mg by G Tube route 2 times daily. 4 09/28/19 25 PARoxetine HCl (PAXIL) 20 mg tablet 20 mg by G Tube route daily. 4 10/05/19 25 lisinopriL (PRINIVIL) 20 mg tabletIndications :Hypertensive emergency TAKE ONE TABLET (20 MG) BY MOUTH DAILY. 30 Tablet 4 09/28/19 25 documented as of this encounter Plan of Treatment Upcoming Encounters Date Type Department Care Team (Late st Contact Info) Description 10/16/2024 11:00 AM COMMUNICATIONS MAINTAINER Appointment [facility] On[facility] [address] [place] [address] Rashmi Dumont MD [address] [place] [address] [address] [place] [address] [facility] Oncology, Infusion 8 10/16/2024 1:45 PM COMMUNICATIONS MAINTAINER Appointment [facility] [address] [place] [address] Karla Goldberg MD [address] [place] [phone] 10/17/2024 1:45 PM COMMUNICATIONS MAINTAINER Appointment [address] [place] [address] Karla Goldberg MD [address] [place] [phone] 10/18/2024 1:45 PM COMMUNICATIONS MAINTAINER Appointment [facility] [address] [place] [phone] Karla Goldberg MD [address] [place] [phone] 10/19/2024 1:45 PM COMMUNICATIONS MAINTAINER Appointment [address] [phone] Karla Goldberg MD [address] [place] [phone] 10/20/2024 1:45 PM COMMUNICATIONS MAINTAINER Appointment [facility] [address] [place] [phone] Karla Goldberg MD [address] [place] [phone] 10/23/2024 1:45 PM COMMUNICATIONS MAINTAINER Appointment [address] [phone] Karla Goldberg MD [address] [place] [phone] 10/24/2024 11:30 AM COMMUNICATIONS MAINTAINER Office Visit [facility] Ear Nose [facility] Thro[facility] Head Neck SGF [address] [place] [phone] Chris Flores MD [address] [place] [phone]- 10/24/2024 1:45 PM COMMUNICATIONS MAINTAINER Appointment [address] [phone] Karla Goldberg MD [address] [place] [phone] 10/25/2024 1:45 PM COMMUNICATIONS MAINTAINER Appointment [address] [phone] Karla Goldberg MD [address] [place] [phone] 10/26/2024 1:45 PM COMMUNICATIONS MAINTAINER Appointment [address] [phone] Karla Goldberg MD [address] [place] [phone] 10/27/2024 1:45 PM COMMUNICATIONS MAINTAINER Appointment [address] [phone] Karla Goldberg MD [address] [place] [phone] 10/30/2024 1:45 PM CDT Appointment [address] [phone] Karla Goldberg MD [address] [place] [phone] 10/31/2024 1:45 PM CDT Appointment [address] [phone] Karla Goldberg MD [address] [place] [phone] 11/01/2024 1:45 PM CDT Appointment [address] [phone] Karla Goldberg MD [address] [place] [phone] 11/02/2024 1:45 PM CDT Appointment [address] [address] Karla Goldberg MD [address] [place] [phone] 11/03/2024 1:45 PM CDT Appointment [address] [phone] Karla Goldberg MD [address] [place] [phone] 11/06/2024 1:45 PM CDT Appointment [address] [phone] Karla Goldberg MD [address] [place] [phone] 11/07/2024 1:45 PM CDT Appointment [address] [phone] Karla Goldberg MD [address] [place] [phone] 11/08/2024 1:45 PM CDT Appointment [address] [phone] Karla Goldberg MD [address] [place] [phone] 11/09/2024 1:45 PM CDT Appointment [address] [phone] Karla Goldberg MD [address] [place] [phone] 11/10/2024 1:45 PM CDT Appointment [address] [phone] Karla Goldberg MD [address] [place] [phone] 11/13/2024 1:45 PM CDT Appointment [address] [phone] Karla Goldberg MD [address] [place] [phone] 11/14/2024 1:45 PM CDT Appointment [address] [phone] Karla Goldberg MD [address] [place] [phone] 11/15/2024 12:45 PM CDT Appointment [address] [phone] Karla Goldberg MD [address] [place] [phone] 11/16/2024 12:45 PM CDT Appointment [address] [phone] Karla Goldberg MD [address] [place] [phone] 11/17/2024 1:45 PM CDT Appointment [address] [phone] Karla Goldberg MD [address] [place] [phone] 11/20/2024 1:45 PM CDT Appointment [address] [phone] Karla Goldberg MD [address] [place] [phone] 11/21/2024 1:45 PM CDT Appointment [address] [phone] Karla Goldberg MD [address] [place] [phone] 11/22/2024 1:45 PM CDT Appointment [address] [phone] Karla Goldberg MD [address] [place] [phone] 11/23/2024 1:45 PM CDT Appointment [address] [phone] Karla Goldberg MD [address] [place] [phone] 11/24/2024 1:45 PM CDT Appointment [address] [phone] Karla Goldberg MD [address] [place] [phone] 11/27/2024 1:45 PM CDT Appointment [address] [phone] Karla Goldberg MD [address] [place] [phone] 11/28/2024 1:45 PM CDT Appointment [address] [phone] Karla Goldberg MD [address] [place] [phone] documented as of this encounter Visit Diagnoses Not on filedocumented in this encounter Additional Health Concerns Infection Onset Date Last Indicated Resolved Time Respiratory Syncytial Virus (RSV) 09/14/2024 025 10/12/2024 1:16 AM COMMUNICATIONS MAINTAINER Assessment Noted Time PHQ-9 Depression Total Score: 1 04/20/20 11:16 PM CDT documented as of this encounter
--- OUTSIDE RECORDS SUMMARY | 2024-10-14 10:36 | XMS_ITS | Encounter Summary ---
[facility] Organization [facility] Address [address] [place] [address] Care Team Providers Care Director Of Community Life Name Role Phone Anu Thompson Primary Care Provider Reason for Visit * Reason Comments Shortness of Breath Intermittent SOB; blood pressure Lower BP at cancer c enter and for EMS * Auth/Cert (Routine) Specialty Diagnoses / Procedures Referred By Contcarson t Referred To Contact Emergency Medicine [facility] Emergency Department [address] [place] [address] Phone: tel: fax: Referral ID Status Reason Start Date Expiration Date Visits Re quested Visits Authorized [id number] 1 1 Encounter Details Date Type Department Care Team (Late st Contact Info) Description 09/17/2024 11:20 AM TATTOOER - 09/17/2024 12:48 PM TATTOOER Surgery [facility] Operating Room [address] [place] [address] Reinaldo Dsouza MD [address] [place] [address] TEETH MULTIPLE EXTRACTION Surgery Details Date/Time Status Location OR Service Patient Class Case Class Case Type Trauma Case? 09/17/2024 11:20 AM Posted [facility] MAIN OR OR 03 Oralmaxillofacial Inpatient Urgent No Panel 1 Procedure LRB Anes Op Region Wound Class Comments TEETH MULTIPLE EXTRACTION N/A General Mouth Clean Contaminated-II FULL MOUTH EXTRACTION Surgeon Surgeon Role Service Panel Reinaldo Dsouza MD Primary Oralmaxillofacia l 1 documented in this encounter Social History Tobacco Use Types Packs/Day Years [...] on file Legal Sex Female 1:37 AM TATTOOER Gender Identity Not on file Sexual Orientation Not on file documented as of this encounter Last Filed Vital Signs Vital Sign Reading Time Taken Comments Blood Pressure 123/72 09/17/2024 7:09 AM TATTOOER Pulse 68 09/17/2024 9:00 AM TATTOOER Temperature 36.4 ??C (97.6 ??F) 09/17/2024 7:09 AM CS T Respiratory Rate 18 09/17/2024 9:00 AM TATTOOER Oxygen Saturation 94% 09/17/2024 7:09 AM TATTOOER Inhaled Oxygen Concentration - - Weight 84.5 kg (186 lb 4.6 oz) 09/17/2024 4:34 A M TATTOOER Height 165.1 cm (5' 5 ) 09/15/2024 9:00 PM TATTOOER Body Mass Index 31.51 09/15/2024 9:00 PM TATTOOER documented in this encounter Discharge Summaries * Belle Garcia MD - 09/28/2024 2:55 PM CST Images from the original note were not included. [facility] Discharge Summary Ventura Elmore 49 y.o. female 1975 CSN: [id number] Date of Admission: 09/13/2024 Date of Discharge: [...] Multifocal pneumonia Acute respiratory failure with hypoxia ([facility]) Pneumonia due to respiratory syncytial virus (RSV) Hx of laryngeal cancer Acute renal failure superimposed on chronic kidney disease Laryngeal squamous cell carcinoma ([facility]/HCC) Essential hypertension Bipolar disorder, unspecified ([facility]) CKD (chronic kidney disease) COPD (chronic obstructive pulmonary disease) ([facility]) Resolved Hospital Problems Diagnosis Date Resolved Hypovolemic shock ([facility]) 09/16/2024 Severe sepsis with septic shock ([facility]) 09/16/2024 HOSPITAL COURSE: Please see H and [...] No primary care provider on file. via [employer] communication MEDICATION CHANGES (significant): Hold home antihypertensives [...] 28 Tablet Refills: 0 naloxone 4 mg/spray [place], Non-Aerosol Commonly known as: NARCAN EMERGENCY USE [...] Ken Astudillo Quantity: 30 Tablet Refills: 0 nitroglycerin [...] Your Medications These medications were sent to [facility] [address] [address] Hours: Wednesday - Wednesday: 7 am - 9 pm; Wednesday - Wednesday: 8 am - 4 pm midodrine 5 mg tablet naloxone 4 mg/spray [place], Non-Aerosol Future Appointments Date Time Provider Department Center 10/05/2024 8:30 AM Guerda Castillo, CLIENT SERVICES ASSISTANT [facility] 10/05/2024 9:00 AM [facility] Oncology, [...] care and follow up required 30 minutes. OOER documented in this encounter Discharge Instructions * Discharge Instructions* Riddhi Pugh RN - 09/20/2024 8:42 AM TATTOOER [place] Discharge Instructions Discharge & Transfer patient to: [...] urine or bowel output. Contact hospitalist office [phone] for questions if patients are [facility]. OOER OOER OOER OOER OOER * Attachments The following attachments cannot be sent through Care Everywhere. * Midodrine Oral Tablet (MIDODRINE - ORAL) ([place]an) documented in this encounter Medications at Time of Discharge naloxone (NARCAN) 4 mg/spray [place], Non-Aerosol EMERGENCY USE ONLY: Administer 1 spray (4 mg) in one nostril one time. May repeat in alternating nostrils every 2-3 min until responsive or EMS arrives. 2 Each 3 09/28/2024 5:11 PM TATTOOER 5 trach supplies Surgery Date: 09/17/2025 Length [...] under tongue every 5 minutes as needed. midodrine (PROAMATINE) 5 mg tablet Take 1 Tablet (5 mg) by mouth 2 times daily for 14 days. 28 Tablet 09/28/2024 5:11 PM TATTOOER 5 10/12/19 25 ondansetron (ZOFRAN ODT) 8 [...] and will be available on Oct 02. OOER * Mahendra Kwong, ERIC - 09/28/2024 2:52 PM CST Contacted by registered nurse supervisor regarding pt's diet (IDDSI 6/thin). RD stated [...] for the least restrictive diet. Please contact [employer] for questions or if the pt's condition should change. Mahendra Kwong M.S. [facility] Acute Speech Therapy Charge Zone Phone #[phone] Acute Speech Therapy Charge Pager #[phone] OOER OOER * Belle Garcia MD - 09/27/2024 9:37 PM CST Images from the original note were not included. Your life is our life's work [facility] Hospitalist/Hospital Medicine Progress Note LOS: 14 days Room/Bed: 2725/ Patient name: Ventura Elmore Date of : 1975 HOSPITAL COURSE SUMMARY: 49 y.o. female admitted 09/13/2024 with hypotension and tachycardia. Recently hospitalized at [facility] between 08/22/2024 through 08/25/2024. Seen by her [...] hours) at 09/27/20242136 Last data filed at 09/27/20242019 Gross per 24 hour Intake 400 ml Output 1100 ml Net -700 ml Last documented weight: Weight: 82.7 kg (182 lb 5.1 oz) (09/26/24428) EXAM: GENERAL: female laying on bed in [...] PRN, Savannah Garcia MD, 650 mg at 09/17/24 181 ondansetron (ZOFRAN) 4 mg/2 mL injection 4 mg, 4 mg, IV, every 6 hours PRN, Savannah Garcia MD, 4 mg at 09/17/24 130 clopidogreL (PLAVIX) tablet 75 mg, 75 mg, G Tube, daily, Savannah Garcia MD, 75 mg at 09/27/24 09 aspirin (RISA CHEWABLE) chewable tablet 81 mg, 81 mg, G Tube, daily, Savannah Garcia MD, 81 mg at 09/27/24 09 atorvastatin (LIPITOR) tablet 80 mg, 80 mg, G Tube, daily BEDTIME, Savannah Garcia MD, 80 mg at 09/27/242025 budesonide (PULMICORT RESPULE) 0.5 mg/2 mL inhalation solution 0.5 mg, 0.5 mg, Inhalation, resp, daily, Savannah Garcia MD, 0.5 mg at 09/27/24 075 PARoxetine HCl (PAXIL) tablet 20 mg, 20 mg, G Tube, daily, Savannah Garcia MD, 20 mg at 09/27/24 09 heparin injection 5,000 Units, 5,000 Units, subCUT, every 8 hours, Savannah Garcia MD, 5,000 Units at 09/27/242025 Primary discharge diagnosis: Laryngeal squamous cell carcinoma (CMS/HCC) Other active medical issues also addressed during this admission: Active Hospital Problems Diagnosis Multifocal pneumonia Acute respiratory failure with hypoxia (CMS/HCC) Pneumonia due to respiratory syncytial virus (RSV) Hx of laryngeal cancer Acute renal failure superimposed on chronic kidney disease Laryngeal squamous cell carcinoma ([facility]) Essential hypertension Bipolar disorder, unspecified ([facility]) CKD (chronic kidney disease) COPD (chronic obstructive pulmonary disease) ([facility]) Resolved Hospital Problems Diagnosis Date Resolved Hypovolemic shock ([facility]) 09/16/2024 Severe sepsis with septic shock ([facility]) 09/16/2024 ASSESSMENT AND PLAN: Septic shock on presentation Resolved Laryngeal cancer status post tracheostomy Oncology following. Was pending tooth extraction prior to starting treatment. Patient had tooth extraction on 09/17 - CT simulation for radiation 2/4 Multifocal pneumonia RSV infection Acute respiratory failure with hypoxia- resolved Completed antibiotic course Continue supportive care -Adequate pulmonary toilet with frequent tracheostomy suction -Continue humidified supplemental oxygen via trach collar, wean as tolerated Chronic dental infection S/p surgical extraction of remaining maxillary and mandibular teeth 09/17 -Pain medication as needed CAD Dyslipidemia Continue aspirin, Plavix, statin -PERSONAL INJURY LITIGATION PARALEGAL Lopressor held due to bradycardia Anxiety/Depression/Psychiatric disorder -Continue Paxil, Risperdal -As needed Atarax CKD 3a -Avoid nephrotoxic medications -Renally dose medications -Avoid hypotension Sinus bradycardia EKG showing sinus bradycardia TSH WNL -PERSONAL INJURY LITIGATION PARALEGAL Lopressor held -Monitor electrolytes, supplement as needed -Telemetry monitoring No results for input(s): GLUCPOC in the last 72 hours. Code status: Full Code Outpatient follow up: Anticipated Disposition Location: Timeframe: 10/03/2024 Criteria: Patient's understanding of illness: Primary family contact: MDM complexity: [] Mild [] Moderate [] High Belle Garcia MD 09/27/2024, 9:37 PM OOER * Arlyn Kate MD - 09/26/2024 10:22 AM CST Images from the original note were not included. [facility] our life[facility] work [facility] Hospitalist/Hospital Medicine Progress note LOS: LOS: 13 days Room/Bed: 0616/ Patient name: Ventura Elmore Date of : 1975 HOSPITAL COURSE SUMMARY HPI: 49 y.o. female admitted 09/13/2024 with hypotension and tachycardia. Recently hospitalized at [facility] between 08/22/2024 through 08/25/2024. Seen by her [...] She was transferred to the ICU under [facility] management. ICU Care Plan Summary on 09/15: This is a 49-year-old female with a past medical history of laryngeal squamous cell carcinoma, who is currently being managed for septic shock requiring pressors, also has a history of trach/PEG and carcinoma as above. Hemodynamics have improved. Was weaned off pressor support yesterday and remains off. Will restart PERSONAL INJURY LITIGATION PARALEGAL medications as tolerated. Resume PERSONAL INJURY LITIGATION PARALEGAL Risperdal. RSV positive, supportive care. Concern for [...] 82.7 kg (182 lb 5.1 oz) (09/26/24 0446) GENERAL: female laying on bed in no [...] Primary Discharge Diagnosis: Laryngeal squamous cell carcinoma ([facility]) Other Active medical issues also addressed during this admission: Active Hospital Problems Diagnosis Multifocal pneumonia Acute respiratory failure with hypoxia ([facility]) Pneumonia due to respiratory syncytial virus (RSV) Hx of laryngeal cancer Acute renal failure superimposed on chronic kidney disease Laryngeal squamous cell carcinoma ([facility]) Essential hypertension Bipolar disorder, unspecified ([facility]) CKD (chronic kidney disease) COPD (chronic obstructive pulmonary disease) ([facility]) Resolved Hospital Problems Diagnosis Date Resolved Hypovolemic shock ([facility]) 09/16/2024 Severe sepsis with septic shock ([facility]) 09/16/2024 PLAN: Septic shock on presentation Resolved [...] needed CAD Dyslipidemia Continue aspirin, Plavix, statin -PERSONAL INJURY LITIGATION PARALEGAL Lopressor held due to bradycardia Anxiety/Depression/Psychiatric disorder -Continue Paxil, Risperdal -As needed Atarax CKD 3a -Avoid nephrotoxic medications -Renally dose medications -Avoid hypotension Sinus bradycardia EKG showing sinus bradycardia TSH WNL -PERSONAL INJURY LITIGATION PARALEGAL Lopressor held -Monitor electrolytes, supplement as needed -Telemetry monitoring DVT prophylaxis: Heparin, SCDs Outpatient follow up: PCP, Oncology Anticipated Disposition: Location : LTC Criteria: Awaiting LTC placement Understanding of illness: Patient: good DIET DYSPHAGIA Level 6 Soft & Bite-Sized/Soft,; Level 0 Thin, Code status: Full Code Arlyn Kate MD 09/26/2024, 10:22 AM OOER * Steven Rizvi, RD - 09/26/2024 8:28 AM CST Patient seen/chart [...] & Bite-Sized/Soft,; Level 0 Thin, Food/Meal: Breakfast (09/25/24 09),Intake (%): 100% (09/25/24 09) Oral Supplement Type: Complete oral supplement-adult (09/14/24 1300) Weight status/changes: Weight: 82.7 kg (182 lb 5.1 oz) (09/26/24 042) Admission :Weight: 85 kg (187 lb 6.3 oz) (09/13/242029) Height: 5' 5 (165.1 cm) (09/15/242099) Body mass index is 30.34 kg/m??. Wt [...] Component Value Date GLUCOSE 122 (H) 09/26/2024 OOER * Lise Nielsen LPN - 09/25/2024 9:06 PM CST Pt refuses SCD's. OOER * Arlyn Kate MD - 09/25/2024 11:46 AM CST Images from the original note were not included. [facility] our life's work [facility] Hospitalist/[facility] Medicine Progress note LOS: LOS: 12 days Room/Bed: [address] [place] [address] Patient name: Ventura Elmore Date of : 1975 HOSPITAL COURSE SUMMARY HPI: 49 y.o. female admitted 09/13/2024 with hypotension and tachycardia. Recently hospitalized at [facility] between 08/22/2024 through 08/25/2024. Seen by her [...] support yesterday and remains off. Will restart PERSONAL INJURY LITIGATION PARALEGAL medications as tolerated. Resume PERSONAL INJURY LITIGATION PARALEGAL Risperdal. RSV positive, supportive care. Concern for [...] Lopressor discontinued. Pending level 2 for SNF/LTC 2/2: Awaiting level 2 for SNF/LTC 2/3: Patient noted to be tachycardic 100-140s today a.m. EKG showing sinus tachycardia. PERSONAL INJURY LITIGATION PARALEGAL metoprolol resumed Consultants During this admission: IP [...] 80.8 kg (178 lb 2.1 oz) (09/25/24 0426) GENERAL: female laying on bed in no [...] Primary Discharge Diagnosis: Laryngeal squamous cell carcinoma ([facility]) Other Active medical issues also addressed during this admission: Active Hospital Problems Diagnosis Multifocal pneumonia Acute respiratory failure with hypoxia ([facility]) Pneumonia due to respiratory syncytial virus (RSV) Hx of laryngeal cancer Acute renal failure superimposed on chronic kidney disease Laryngeal squamous cell carcinoma ([facility]) Essential hypertension Bipolar disorder, unspecified ([facility]) CKD (chronic kidney disease) COPD (chronic obstructive pulmonary disease) ([facility]) Resolved Hospital Problems Diagnosis Date Resolved Hypovolemic shock ([facility]) 09/16/2024 Severe sepsis with septic shock ([facility]) 09/16/2024 PLAN: Septic shock on presentation Resolved [...] 09/26 CAD Dyslipidemia Continue aspirin, Plavix, statin PERSONAL INJURY LITIGATION PARALEGAL Lopressor discontinued due to bradycardia Anxiety/Depression/Psychiatric disorder Continue Paxil, Risperdal As needed Atarax CKD 3a Avoid nephrotoxic medications Renally dose medications Avoid hypotension Sinus tachycardia Patient noted to be tachycardic with HR 100-140 EKG showing sinus tachycardia TSH WNL -PERSONAL INJURY LITIGATION PARALEGAL Lopressor resumed -Monitor electrolytes, supplement as needed -Telemetry monitoring DVT prophylaxis: Heparin, SCDs Outpatient follow up: PCP, Oncology Anticipated Disposition: Location & time frame: SNF Criteria: Pending level II for SNF versus LTC Understanding of illness: Patient: good DIET DYSPHAGIA Level 6 Soft & Bite-Sized/Soft,; Level 0 Thin, Code status: Full Code Arlyn Kate MD 09/25/2024, 11:46 AM OOER * Lise Nielsen LPN - 09/24/2024 8:45 PM CST Pt refuses SCDs at this time OOER * Arlyn Kate MD - 09/24/2024 11:31 AM CST Images from the original note were not included. [facility] our life[facility] work [facility] Hospitalist/[facility] Medicine Progress note LOS: LOS: 11 days Room/Bed: [facility]/ Patient name: Ventura Elmore Date of : 1975 HOSPITAL COURSE SUMMARY HPI: 49 y.o. female admitted 09/13/2024 with hypotension and tachycardia. Recently hospitalized at [facility] between 08/22/2024 through 08/25/2024. Seen by her [...] She was transferred to the ICU under [facility] management. ICU Care Plan Summary on 09/15: This is a 49-year-old female with a past medical history of laryngeal squamous cell carcinoma, who is currently being managed for septic shock requiring pressors, also has a history of trach/PEG and carcinoma as above. Hemodynamics have improved. Was weaned off pressor support yesterday and remains off. Will restart PERSONAL INJURY LITIGATION PARALEGAL medications as tolerated. Resume PERSONAL INJURY LITIGATION PARALEGAL Risperdal. RSV positive, supportive care. Concern for [...] Multifocal pneumonia Acute respiratory failure with hypoxia ([facility]) Pneumonia due to respiratory syncytial virus (RSV) Hx of laryngeal cancer Acute renal failure superimposed on chronic kidney disease Laryngeal squamous cell carcinoma ([facility]) Essential hypertension Bipolar disorder, unspecified ([facility]) CKD (chronic kidney disease) COPD (chronic obstructive pulmonary disease) ([facility]) Resolved Hospital Problems Diagnosis Date Resolved Hypovolemic shock ([facility] 09/16/2024 Severe sepsis with septic shock ([facility]) 09/16/2024 PLAN: Septic shock on presentation Resolved [...] 09/26 CAD Dyslipidemia Continue aspirin, Plavix, statin PERSONAL INJURY LITIGATION PARALEGAL Lopressor discontinued due to bradycardia Anxiety/Depression/Psychiatric disorder Continue Paxil, Risperdal As needed Atarax CKD 3a Avoid nephrotoxic medications Renally dose medications Avoid hypotension Sinus bradycardia Occasional bradycardia in 40s to 50s EKG showing sinus bradycardia PERSONAL INJURY LITIGATION PARALEGAL Lopressor discontinued -Monitor electrolytes, supplement as needed -Telemetry monitoring DVT prophylaxis: Heparin, SCDs Outpatient follow up: PCP, Oncology Anticipated Disposition: Location & time frame: SNF Criteria: Pending level II for SNF versus LTC Understanding of illness: Patient: good DIET DYSPHAGIA Level 4 Pureed,; Level 0 Thin, Code status: Full Code Arlyn Kate MD 09/24/2024, 11:31 AM OOER * Arlyn Kate MD - 09/23/2024 11:29 AM CST Images from the original note were not included. [facility] our life[facility] work [facility] Hospitalist/Hospital Medicine Progress note LOS: LOS: 10 days Room/Bed: [facility]/01 Patient name: Ventura Elmore Date of : 1975 HOSPITAL COURSE SUMMARY HPI: 49 y.o. female admitted 09/13/2024 with hypotension and tachycardia. Recently hospitalized at [facility] between 08/22/2024 through 08/25/2024. Seen by her [...] She was transferred to the ICU under [facility] management. ICU Care Plan Summary on 09/15: This is a 49-year-old female with a past medical history of laryngeal squamous cell carcinoma, who is currently being managed for septic shock requiring pressors, also has a history of trach/PEG and carcinoma as above. Hemodynamics have improved. Was weaned off pressor support yesterday and remains off. Will restart PERSONAL INJURY LITIGATION PARALEGAL medications as tolerated. Resume PERSONAL INJURY LITIGATION PARALEGAL Risperdal. RSV positive, supportive care. Concern for [...] 89.2 kg (196 lb 10.4 oz) (09/23/24 2975) GENERAL: female laying on bed in no [...] Primary Discharge Diagnosis: Laryngeal squamous cell carcinoma ([facility]) Other Active medical issues also addressed during this admission: Active Hospital Problems Diagnosis Multifocal pneumonia Acute respiratory failure with hypoxia ([facility]) Pneumonia due to respiratory syncytial virus (RSV) Hx of laryngeal cancer Acute renal failure superimposed on chronic kidney disease Laryngeal squamous cell carcinoma ([facility]) Essential hypertension Bipolar disorder, unspecified ([facility]) CKD (chronic kidney disease) COPD (chronic obstructive pulmonary disease) ([facility]) Resolved Hospital Problems Diagnosis Date Resolved Hypovolemic shock ([facility]) 09/16/2024 Severe sepsis with septic shock ([facility]) 09/16/2024 PLAN: Septic shock on presentation Resolved [...] 09/26 CAD Dyslipidemia Continue aspirin, Plavix, statin PERSONAL INJURY LITIGATION PARALEGAL Lopressor discontinued due to bradycardia Anxiety/Depression/Psychiatric disorder [...] Code Arlyn Kate MD 09/23/2024, 11:29 AM OOER OOER OOER * Arlyn Kate MD - 09/22/2024 11:32 AM CST Images from the original note were not included. [facility] life[facility] Hospitalist/Hospital Medicine Progress note LOS: LOS: 9 days Room/Bed: 3155/01 Patient name: Ventura Elmore Date of : 1975 HOSPITAL COURSE SUMMARY HPI: 49 y.o. female admitted 09/13/2024 with hypotension and tachycardia. Recently hospitalized at [facility] between 08/22/2024 through 08/25/2024. Seen by her [...] support yesterday and remains off. Will restart PERSONAL INJURY LITIGATION PARALEGAL medications as tolerated. Resume PERSONAL INJURY LITIGATION PARALEGAL Risperdal. RSV positive, supportive care. Concern for [...] 85.3 kg (188 lb 0.8 oz) (09/22/24 042) GENERAL: female laying on bed in no [...] 10.4* HCT 32.9* PLT 206 Recent Labs 09/20/24 0054 09/21/24 0459 09/22/24 0433 NA 137 138 [...] Primary Discharge Diagnosis: Laryngeal squamous cell carcinoma ([facility]) Other Active medical issues also addressed during this admission: Active Hospital Problems Diagnosis Multifocal pneumonia Acute respiratory failure with hypoxia ([facility]) Pneumonia due to respiratory syncytial virus (RSV) Hx of laryngeal cancer Acute renal failure superimposed on chronic kidney disease Laryngeal squamous cell carcinoma ([facility]) Essential hypertension Bipolar disorder, unspecified ([facility]) CKD (chronic kidney disease) COPD (chronic obstructive pulmonary disease) ([facility]) Resolved Hospital Problems Diagnosis Date Resolved Hypovolemic shock ([facility]) 09/16/2024 Severe sepsis with septic shock [place] 09/16/2024 PLAN: Septic shock on presentation Resolved [...] Code Arlyn Kate MD 09/22/2024, 11:32 AM OOER * Arlyn Kate MD - 09/21/2024 12:28 PM CST Images from the original note were not included. [facility] our life[facility] work [facility] Hospitalist/Hospital Medicine Progress note LOS: LOS: 8 days Room/Bed: 943 Patient name: Ventura Elmore Date of : 1975 HOSPITAL COURSE SUMMARY HPI: 49 y.o. female admitted 09/13/2024 with hypotension and tachycardia. Recently hospitalized at [facility] between 08/22/2024 through 08/25/2024. Seen by her [...] She was transferred to the ICU under [facility] management. ICU Care Plan Summary on 09/15: This is a 49-year-old female with a past medical history of laryngeal squamous cell carcinoma, who is currently being managed for septic shock requiring pressors, also has a history of trach/PEG and carcinoma as above. Hemodynamics have improved. Was weaned off pressor support yesterday and remains off. Will restart PERSONAL INJURY LITIGATION PARALEGAL medications as tolerated. Resume PERSONAL INJURY LITIGATION PARALEGAL Risperdal. RSV positive, supportive care. Concern for [...] Weight: 88.5 kg (195 lb 1.7 oz) (09/21/24 0445) GENERAL: female laying on bed in no [...] 33.7* 32.9* PLT 184 206 Recent Labs 09/19/24 0355 09/20/245309/21/24 0459 NA 139 137 138 K 4.7 4.6 [...] Primary Discharge Diagnosis: Laryngeal squamous cell carcinoma ([facility]) Other Active medical issues also addressed during this admission: Active Hospital Problems Diagnosis Multifocal pneumonia Acute respiratory failure with hypoxia ([facility]) Pneumonia due to respiratory syncytial virus (RSV) Hx of laryngeal cancer Acute renal failure superimposed on chronic kidney disease Laryngeal squamous cell carcinoma ([facility]) Essential hypertension Bipolar disorder, unspecified ([facility]) CKD (chronic kidney disease) COPD (chronic obstructive pulmonary disease) ([facility]) Resolved Hospital Problems Diagnosis Date Resolved Hypovolemic shock ([facility]/HCC) 09/16/2024 Severe sepsis with septic shock ([facility]) 09/16/2024 PLAN: Septic shock on presentation Resolved [...] Code Arlyn Kate MD 09/21/2024, 12:29 PM OOER OOER * Arlyn Kate MD - 09/20/2024 11:58 AM CST Images from the original note were not included. [facility] Life is our life's work [facility] Hospitalist/Hospital Medicine Progress note LOS: LOS: 7 days Room/Bed: [facility]/ Patient name: Ventura Elmore Date of : 1975 HOSPITAL COURSE SUMMARY HPI: 49 y.o. female admitted 09/13/2024 with hypotension and tachycardia. Recently hospitalized at [facility] between 08/22/2024 through 08/25/2024. Seen by her [...] She was transferred to the ICU under [facility] management. ICU Care Plan Summary on 09/15: This is a 49-year-old female with a past medical history of laryngeal squamous cell carcinoma, who is currently being managed for septic shock requiring pressors, also has a history of trach/PEG and carcinoma as above. Hemodynamics have improved. Was weaned off pressor support yesterday and remains off. Will restart PERSONAL INJURY LITIGATION PARALEGAL medications as tolerated. Resume PERSONAL INJURY LITIGATION PARALEGAL Risperdal. RSV positive, supportive care. Concern for [...] Multifocal pneumonia Acute respiratory failure with hypoxia ([facility]) Pneumonia due to respiratory syncytial virus (RSV) Hx of laryngeal cancer Acute renal failure superimposed on chronic kidney disease Laryngeal squamous cell carcinoma ([facility]) Essential hypertension Bipolar disorder, unspecified ([facility]) CKD (chronic kidney disease) COPD (chronic obstructive pulmonary disease) ([facility]) Resolved Hospital Problems Diagnosis Date Resolved Hypovolemic shock ([facility]) 09/16/2024 Severe sepsis with septic shock ([facility] 09/16/2024 PLAN: Septic shock on presentation Resolved [...] Code Arlyn Kate MD 09/20/2024, 11:59 AM OOER * Devin Ramos, Occupational Therapist - 09/20/2024 10:14 AM CST [facility] - Therapy Services Ph. Acute Occupational Therapy Evaluation 09/20/2024 Room: [address] [place] [address] Name: Ventura Elmore Age: 49 y.o. Patient Class: Inpatient Date of : 1975 Insurance: Payor: MEDICAID / Plan: MEDICAID [place] / Product Type: Medicaid / Prior to [...] transfer: independent sit < > stand from C All tasks not tested with anticipated assist [...] tasks Patient required verbal cues for safety. [facility] AM-PAC Daily Activity How much help from another [...] patient's ability to complete self care tasks, AM-PAC Daily Activity Score, functional cognition and safety awareness, potential for improvement, available home support, participation in therapeutic intervention, and tolerance for activity, anticipated discharge disposition, once medically ready: Home with assistance (09/20/24 1014) Rationale: Assistance recommended for IADLs. Safety concerns present. Plan of care and discharge recommendations shared with patient, child care team lead, and PT OT recommended DME and AE [...] for this referral, Devin Ramos, Occupational Therapist OOER OOER * Steven Rizvi, RD - 09/19/2024 12:57 PM CST Patient seen/chart [...] Results Component Value Date GLUCOSE 95 09/19/2024 OOER * Arlyn Kate MD - 09/19/2024 10:16 AM CST Images from the original note were not included. [facility] is our life's work [facility] Hospitalist/[facility] Medicine Progress note LOS: LOS: 6 days Room/Bed: [address] [place] [address] Patient name: Ventura Elmore Date of : 1975 HOSPITAL COURSE SUMMARY HPI: 49 y.o. female admitted 09/13/2024 with hypotension and tachycardia. Recently hospitalized at [facility] between 08/22/2024 through 08/25/2024. Seen by her [...] support yesterday and remains off. Will restart PERSONAL INJURY LITIGATION PARALEGAL medications as tolerated. Resume PERSONAL INJURY LITIGATION PARALEGAL Risperdal. RSV positive, supportive care. Concern for [...] 09/19/2024 1016 Last data filed at 09/19/2024 9270 Gross per 24 hour Intake 500 ml Output 500 ml Net 0 ml Last documented weight: Weight: 88.5 kg (195 lb 1.7 oz) (09/19/24 042) GENERAL: female laying on bed in no [...] kidney disease) COPD (chronic obstructive pulmonary disease) ([facility]CC) Resolved Hospital Problems Diagnosis Date Resolved Hypovolemic shock (CMS/HCC) 09/16/2024 Severe sepsis with septic shock ([facility]) 09/16/2024 PLAN: Septic shock on presentation Resolved [...] Code Arlyn Kate MD 09/19/2024, 10:16 AM OOER OOER * Rashmi Dumont MD - 09/19/2024 9:37 [...] -diagnosed April 2024 at [facility] -declined surgery -[facility] following-planned for concurrent chemoradiation with cisplatin-therapy on [...] -criteria-clinical improvement -follow up-TBD pending clinical course OOER * Alryn Kate MD - 09/18/2024 12:08 PM CST Images from the original note were not included. [facility] Life is our life's work [facility] Hospitalist/[facility] Medicine Progress note LOS: LOS: 5 days Room/Bed: 3155/01 Patient name: Ventura Elmore Date of : 1975 HOSPITAL COURSE SUMMARY HPI: 49 y.o. female admitted 09/13/2024 with hypotension and tachycardia. Recently hospitalized at [facility] between 08/22/2024 through 08/25/2024. Seen by her [...] She was transferred to the ICU under [facility] management. ICU Care Plan Summary on 09/15: This is a 49-year-old female with a past medical history of laryngeal squamous cell carcinoma, who is currently being managed for septic shock requiring pressors, also has a history of trach/PEG and carcinoma as above. Hemodynamics have improved. Was weaned off pressor support yesterday and remains off. Will restart PERSONAL INJURY LITIGATION PARALEGAL medications as tolerated. Resume PERSONAL INJURY LITIGATION PARALEGAL Risperdal. RSV positive, supportive care. Concern for [...] Primary Discharge Diagnosis: Laryngeal squamous cell carcinoma ([facility]) Other Active medical issues also addressed during this admission: Active Hospital Problems Diagnosis Multifocal pneumonia Acute respiratory failure with hypoxia ([facility]) Pneumonia due to respiratory syncytial virus (RSV) Hx of laryngeal cancer Acute renal failure superimposed on chronic kidney disease Laryngeal squamous cell carcinoma ([facility]) Essential hypertension Bipolar disorder, unspecified ([facility]) CKD (chronic kidney disease) COPD (chronic obstructive pulmonary disease) ([facility]) Resolved Hospital Problems Diagnosis Date Resolved Hypovolemic shock ([facility]) 09/16/2024 Severe sepsis with septic shock ([facility]) 09/16/2024 PLAN: Septic shock on presentation Resolved [...] Location & time frame: Home vs medical respite/Group Home Criteria: Clinically stable, placement Understanding of illness: Patient: good DIET GENERAL Effective Now Code status: Full Code Arlyn Kate MD 09/18/2024, 12:12 PM OOER OOER OOER OOER * Estela Hernandez, Physical Therapist - 09/18/2024 11:06 AM CST [facility] - Therapy Services 3K Ph. Acute Physical Therapy Evaluation 09/18/2024 Room: [address] [place] [address] Name: Ventura Elmore Age: 49 y.o. Date of : 1975 Insurance: Payor: MEDICAID / Plan: MEDICAID [place] / Product Type: Medicaid / Patient Class: Inpatient Onset of illness/injury or date of surgery: 09/13/2024 Subjective Information/History Subjective Information Provided By: Patient Prior level of Function: Patient cleared to mobilize. Pulmonary present to assess respiratory needswith activity and PT evaluate while oxygen and HR monitored per ND. Patient lives with her in a trailer. [...] limited activity tolerance and vitals monitored per ND. Balance: Static sitting balance: independent EOB Static and dynamic standing balance: minimal assist, LE weakness Vitals See ND note for vitals at rest and with activity. Patient has a trach. After PT evaluation: Oxygen saturation: 95% HR: 68 bpm [facility] AM-PAC Basic Mobility How much help [...] summary. Thank you for this referral, Estela Hernandez, Physical Therapist Physician order authorization: I certify that this patient is under my care and requires all the above therapy services. Physician Signature/Electronic Facsimile : OOER * Rashmi Dumont MD - 09/18/2024 9:41 AM CST ONCOLOGY PROGRESS NOTE 09/18/2024, 9:41 AM Subjective: Patient awake alert and oriented. She looks and feels well she states. Dr. Meredithxplained that her kidney function isn't great so [...] PRN Wilfredo Harmon MD 3 mg at 09/17/24 2106 sennosides (SENOKOT) tablet 17.2 mg 17.2 mg Oral BID PRN Bhartee, Harsh, MD Saccharomyces boulardii (FLORASTOR) capsule 250 mg 250 mg Oral BID Wilfredo Harmon MD 250 mg at 09/18/24932 ALBUTEROL SULFATE 2.5 MG/3 ML (0.083 %) [...] daily Savannah Garcia MD 2 mg at 09/18/24932 sodium chloride flush injection 5 mL 5 mL IV every 12 hours Savannah Garcia MD 5 mL at 09/17/24 160 sodium chloride flush injection 5 mL 5 mL IV see admin instructions Savannah Garcia MD [COMPLETED] sodium chloride flush injection 10 mL 10 mL IV every 5 minutes PRN Savannah Garcia MD 10 mL at 09/17/24 160 naloxone (NARCAN) 0.4 mg/mL injection 0.1-0.4 mg [...] daily Savannah Garcia MD 75 mg at 09/18/24932 aspirin (RISA CHEWABLE) chewable tablet 81 mg 81 mg G Tube daily Savannah Garcia MD 81 mg at atorvastatin (LIPITOR) tablet 80 mg 80 mg G Tube daily BEDTIME Savannah Garcia MD 80 mg at 09/17/242105 budesonide (PULMICORT RESPULE) 0.5 mg/2 mL inhalation solution 0.5 mg 0.5 mg Inhalation resp, dailySavannah Garcia MD 0.5 mg at 09/18/24 0836 PARoxetine HCl (PAXIL) tablet 20 mg 20 mg G Tube daily Savannah Garcia MD 20 mg at 09/18/24 0933 HYDROcodone-acetaminophen (NORCO) 5-325 mg per tablet 1 Tablet 1 Tablet Oral every 4 hours PRN Savannah Garcia MD 1 Tablet at 09/18/24 0933 heparin injection 5,000 Units 5,000 Units subCUT [...] 50 mcg/mL injection IV intra-proc PRN Raghu Ruvalcaba AA 50mcg at 09/17/24 1239 [DISCONTINUED] ePHEDrine injection IV intra-proc PRN Raghu Ruvalcaba AA 20 mg at 09/17/24 1251 [DISCONTINUED] phenylephrine syringe IV intra-proc PRN Raghu Ruvalcaba AA 100 mcg at 09/17/24 1251 [DISCONTINUED] dexAMETHasone (DECADRON) injection IV intra-proc PRN Raghu Ruvalcaba AA 4 mg at 09/17/24 1305 [DISCONTINUED] [...] peptide (BNP) level R79.89 Bipolar disorder, unspecified ([facility]) F31.9 Methamphetamine abuse ([facility] F15.10 Essential hypertension I10 CAD (coronary atherosclerotic disease) I25.10 Acute on chronic diastolic heart failure ([facility]) I50.33 Stridor R06.1 COPD (chronic obstructive pulmonary disease) ([facility]) J44.9 CKD (chronic kidney disease) N18.9 Acute respiratory distress R06.03 Vocal cord paralysis J38.00 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 Community acquired pneumonia of right lower lobe of lung J18.9 Laryngeal squamous cell carcinoma ([facility]) C32.9 Hx of laryngeal cancer Z85.21 Acute renal failure superimposed on chronic kidney disease N17.9, N18.9 Pneumonia due to respiratory syncytial virus (RSV) J12.1 Multifocal pneumonia J18.9 Acute respiratory failure with hypoxia ([facility]) J96.01 49-year-old female with laryngeal squamous cell [...] ( sim 1 week after tooth extractions) OOER OOER OOER * Wilfredo Harmon MD - 09/17/2024 7:38 PM CST Images from the original note were not included. Your Life is our life's work [facility] Hospitalist/Hospital Medicine Progress note LOS: LOS: 4 days Room/Bed: Patient name: Ventura Elmore Date of : 1975 HOSPITAL COURSE SUMMARY HPI: 49 y.o. female admitted 09/13/2024 with hypotension and tachycardia. Recently hospitalized at [facility] between 08/22/2024 through 08/25/2024. Seen by her [...] She was transferred to the ICU under [facility] management. ICU Care Plan Summary on 09/15: This is a 49-year-old female with a past medical history of laryngeal squamous cell carcinoma, who is currently being managed for septic shock requiring pressors, also has a history of trach/PEG and carcinoma as above. Hemodynamics have improved. Was weaned off pressor support yesterday and remains off. Will restart PERSONAL INJURY LITIGATION PARALEGAL medications as tolerated. Resume PERSONAL INJURY LITIGATION PARALEGAL Risperdal. RSV positive, supportive care. Concern for [...] 1.14* GLUCOSE 90 86 83 Recent Labs 09/16/245 09/17/24 0400 TOTALPROTEIN 5.5* -- ALBUMIN 2.7* [...] Primary Discharge Diagnosis: Laryngeal squamous cell carcinoma ([facility]) Other Active medical issues also addressed during this admission: Active Hospital Problems Diagnosis Multifocal pneumonia Acute respiratory failure with hypoxia ([facility]) Pneumonia due to respiratory syncytial virus (RSV) Hx of laryngeal cancer Acute renal failure superimposed on chronic kidney disease Laryngeal squamous cell carcinoma ([facility]) Essential hypertension Bipolar disorder, unspecified ([facility]) CKD (chronic kidney disease) COPD (chronic obstructive pulmonary disease) ([facility]) Resolved Hospital Problems Diagnosis Date Resolved Hypovolemic shock ([facility]) 09/16/2024 Severe sepsis with septic shock ([facility] 09/16/2024 PLAN: Septic shock on presentation Resolved [...] Location & time frame: Home vs medical respite/Group Home, should be medically ready next day Criteria: No new plans by oncology Next day morning labs: CBC Understanding of illness: Patient: good DIET FULL LIQUID Code status: Full Code Communication preference: Unified Color 'Secure Chat' preferred over pages for this [...] been made to assure accuracy of the market research consultant. Any obvious errors or omissions should be clarified with theauthor of the document. OOER OOER * Wilfredo Harmon MD - 09/16/2024 4:09 PM CST Images from the original note were not included. Your Life is our life's work [facility] Hospitalist/Hospital Medicine Progress note LOS: LOS: 3 days Room/Bed: 3155/ Patient name: Ventura Elmore Date of : 1975 HOSPITAL COURSE SUMMARY HPI: 49 y.o. female admitted 09/13/2024 with hypotension and tachycardia. Recently hospitalized at [facility] between 08/22/2024 through 08/25/2024. Seen by her [...] She was transferred to the ICU under [facility] management. ICU Care Plan Summary on 09/15: This is a 49-year-old female with a past medical history of laryngeal squamous cell carcinoma, who is currently being managed for septic shock requiring pressors, also has a history of trach/PEG and carcinoma as above. Hemodynamics have improved. Was weaned off pressor support yesterday and remains off. Will restart PERSONAL INJURY LITIGATION PARALEGAL medications as tolerated. Resume PERSONAL INJURY LITIGATION PARALEGAL Risperdal. RSV positive, supportive care. Concern for [...] focal motor deficits noted. LABORATORY: Recent Labs 09/13/24164709/14/24 0711 09/15/24 0348 09/16/24 0528 WBC 7.2 6.9 4.2* 3.5* HGB 13.8 11.7* 11.9* 10.8* HCT 42.6 37.7 37.6 35.6* PLT 315 245 188 170 Recent Labs 09/13/24 1648 09/14/24 0711 09/15/24 0348 09/16/24 0425 NA 139 143 138 137 K 4.5 4.5 4.6 4.8 CL 105 114* 108* 107 CO2 23 21* 23 CA 9.3 8.2* 8.7 8.9 BUN 31* 22* 24* 25* CREAT 1.65* 1.34* 1.24* 1.29* GLUCOSE 94 153* 90 86 Recent Labs 09/13/248 09/16/24 0425 TOTALPROTEIN 6.7 5.5* ALBUMIN 3.6 [...] Primary Discharge Diagnosis: Laryngeal squamous cell carcinoma ([facility]) Other Active medical issues also addressed during this admission: Active Hospital Problems Diagnosis Multifocal pneumonia Acute respiratory failure with hypoxia ([facility]) Pneumonia due to respiratory syncytial virus (RSV) Hx of laryngeal cancer Acute renal failure superimposed on chronic kidney disease Laryngeal squamous cell carcinoma ([facility]) Essential hypertension Bipolar disorder, unspecified ([facility]) CKD (chronic kidney disease) COPD (chronic obstructive pulmonary disease) ([facility]) Resolved Hospital Problems Diagnosis Date Resolved Hypovolemic shock ([facility]) 09/16/2024 Severe sepsis with septic shock ([facility]) 09/16/2024 PLAN: Septic shock on presentation Resolved [...] Disposition: Location & time frame: Home vs Group Home vs LTC Criteria: Clinical improvement, Next day morning labs: RFP Understanding of illness: Patient: Oncology DIET NPO Strict Code status: Full Code Communication preference: Unified Color 'Secure Chat' preferred over pages for this [...] been made to assure accuracy of the market research consultant. Any obvious errors or omissions should be clarified with theauthor of the document. OOER OOER * Wilfredo Harmon MD - 09/15/2024 7:07 [...] the plan of care for today by adjunct physical education instructor service. OOER * Savannah Garcia MD - 09/15/2024 5:15 PM CST [facility] Patient Handoff Notification: Patient handoff given to Dr. Harmon OOER * Rashmi Dumont MD - 09/15/2024 3:16 [...] peptide (BNP) level R79.89 Bipolar disorder, unspecified ([facility]) F31.9 Methamphetamine abuse ([facility]) F15.10 Essential hypertension I10 CAD (coronary atherosclerotic disease) I25.10 Acute on chronic diastolic heart failure ([facility]) I50.33 Stridor R06.1 COPD (chronic obstructive pulmonary disease) ([facility]) J44.9 CKD (chronic kidney disease) N18.9 Acute respiratory distress R06.03 Vocal cord paralysis J38.00 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 Community acquired pneumonia of right lower lobe of lung J18.9 Laryngeal squamous cell carcinoma ([facility]) C32.9 Severe sepsis with septic shock ([facility]) A41.9, R65.21 Hx of laryngeal cancer Z85.21 Acute renal failure superimposed on chronic kidney disease N17.9, N18.9 Hypovolemic shock ([facility]) R57.1 RSV infection B33.8 49-year-old female with [...] and full mouth extractions at phone number [phone] She is off pressors Please call oral surgery when deemed stable to undergo full mouth extraction, while INPATIENT OOER OOER * Annette Maciel, RT - 09/15/2024 2:42 PM CST IMAGING SERVICES- CONTRAST, MEDICATION and FLUSH PROTOCOL [facility] Enter the protocol in the patient's electronic [...] PROTOCOLS FOR PEDIATRICS Iopamidol Injection 61% (ISOVUE-300) Infant- Routine exams: 1mL per pound Infant and Pediatric- Head / Face: 1mL per [...] oral, may use nasoenteric tube if needed. [place] to 3 months- Barium Sulfate 2%w/v (READI-CAT2) [...] if tolerated CT CYSTOGRAM Iopamidol 61% Injection ([id number]): 25mL Dilute into 500mL bag of sterile NS administer up to 300mL retrograde via urinary catheter DIAGNOSTIC RADIOLOGY Enter the protocol in the patient's electronic health record using [employer]: ADULTS PROCEDURE DOSAGE ARTHROGRAMS Plain ISOVUE 300 [...] 90g/Varibar thin 74g/ Varibar honey 125mL/ Varibar [place] 120mL HYSTEROSALPINGOGRAM ISOVUE 300 30ml IVP'S ISOVUE [...] 350 50mL Modified Barium Swallow >1 Varibar [id number]: 1 to 2 Varibar Thin74 Paste 90g (Video Swallow with Speech) <2 Varibar [id number], [id number], Honey 125mL, Paste 90g IVP Isovue 300 [...] Medicine Procedure Manual, Division of Nuclear Medicine, [facility] of Radiology; [email or web address] [place] Consensus Guidelines for Administered Radiopharmaceutical Activities in Children andAdolescents; http://interactive.snm.org/docs/Pediatric dose consensus guidelines Final 2010.pdf ACR-SNM-SPR Practice guideline for the performance of Scintigraphy for inflammation and infection; www/acr.org.guidelines. Revised 2009 9.1 Rocio SHANNON, Ed WC, [address]ita RD. Nuclear Medicine Diagnosis and Therapy. [email or web address]1996. Chapter 37, page 930, Table 1. [...] by: Medical Executive Committee and Imaging Services OOER * Savannah Garcia MD - 09/15/2024 1:00 PM CST CRITICAL CARE MEDICINE DAILY PROGRESS NOTE PCP: Anu Thompson DO Hx: 49 y.o. female admitted 09/13/2024 with hypotension and tachycardia. Recently hospitalized at [facility] between 08/22/2024 through 08/25/2024. Seen by her [...] She was transferred to the ICU under [facility] management. Pertinent PMHx: Past Medical History: [...] support yesterday and remains off. Will restart PERSONAL INJURY LITIGATION PARALEGAL medications as tolerated. Resume PERSONAL INJURY LITIGATION PARALEGAL Risperdal. RSV positive, supportive care. Concern for [...] (35.8 ??C), Max:97.7 ??F (36.5 ??C) Input/Output 09/130 - 09/15 0659 In: 4900.2 [P.O.:1030; I.V.:3780.2] [...] of depression-resume home Paxil History of bipolar -PERSONAL INJURY LITIGATION PARALEGAL Risperdal resumed Cardiovascular/Fluids: Hx CAD S/p CARMELO. On aspirin/Plavix/statin, start PERSONAL INJURY LITIGATION PARALEGAL beta-yi tomorrow History of hypertension-resume as tolerated [...] my rounds, discussed with patient directly EM3 OOER OOER * Camila Navarrete, PILE DRIVER ENGINEER - 09/14/2024 6:46 PM CST Speech Pathology: Ventura is currently receiving a regular diet with thin liquids. She reported waxing and waning dysphagia, stating, Sometimes my throat doesn't hurt and I swallow fine. Other times, it hurts a lot and I can hardly swallow much at all. Previous MBS completed at [facility] 05/2024, but the report is not currently [...] dentition. Dental hygiene aware. ~Camila Navarrete M.S., CCC-PILE DRIVER ENGINEER Acute Speech Therapy Charge Zone Phone #[phone] Acute Speech Therapy Charge Pager #[phone] OOER * Rajesh Delaney PHARMACIST - 09/14/2024 6:37 [...] Savannah Garcia MD at 09/15/2024 7:40 AM TATTOOER OOER OOER * Gem Julio - 09/14/2024 6:14 PM [...] support; reflective listening; prayer; Introduced self and jack frame tender services explaining the availability of chaplains 15/03. Utilized presence and active listening to explore feelings, stressors, perceptions, questions/concerns, and coping patterns. Provided a safe environment for culturally and spiritually congruent self-expression CHEMICAL OPERATIONS AND TRAINING???S ASSESSMENT OF PATIENT???S LEVEL OF DISTRESS: Moderate Outcomes of Care Ventura expressed gratitude for the visit and prayer. Goals of Spiritual Care Manufacturing Operator Plan: Spiritual Care Services remain available for referral PRN. Recommendations for Healthcare Team As spiritual needs/distress arise, please contact Spiritual Care Services. We will follow up as needed. Thank you for this referral. Chaplain Gem Julio Spiritual Care Team [phone] OOER * Simon Rosales, RT - 09/14/2024 5:04 PM CST IMAGING SERVICES- CONTRAST, MEDICATION and FLUSH PROTOCOL [facility] Enter the protocol in the patient's electronic [...] oral, may use nasoenteric tube if needed. Tennyson to 3 months- Barium Sulfate 2%w/v (READI-CAT2) [...] if tolerated CT CYSTOGRAM Iopamidol 61% Injection ([id number]): 25mL Dilute into 500mL bag of sterile [...] 90g/Varibar thin 74g/ Varibar honey 125mL/ Varibar [place] 120mL HYSTEROSALPINGOGRAM ISOVUE 300 30ml IVP'S ISOVUE [...] 350 50mL Modified Barium Swallow >1 Varibar Wqss47d: 1 to 2 Varibar Thin74 Paste 90g (Video Swallow with Speech) <2 Varibar Cfhd44y, [id number], Honey 125mL, Paste 90g IVP Isovue 300 [...] Medicine Procedure Manual, Division of Nuclear Medicine, [facility] of Radiology; gamma.[email or web address] [place] Consensus Guidelines for Administered Radiopharmaceutical Activities in Children andAdolescents; http://interactive.snm.org/docs/Pediatric dose consensus guidelines Final 2010.pdf ACR-SNM-SPR Practice guideline for the performance of Scintigraphy for inflammation and infection; www/acr.org.guidelines. Revised 2009 9.1 Rocio SHANNON, Ed WC, Carmita RD. Nuclear Medicine Diagnosis and Therapy. [employer]1996. Chapter 37, page 930, Table 1. [...] by: Medical Executive Committee and Imaging Services OOER * Savannah Garcia MD - 09/14/2024 1:00 PM CST CRITICAL CARE MEDICINE DAILY PROGRESS NOTE PCP: Anu Thompson DO Hx: 49 y.o. female admitted 09/13/2024 with hypotension and tachycardia. Recently hospitalized at [place] between 08/22/2024 through 08/25/2024. Seen by her [...] She was transferred to the ICU under [facility] management. Pertinent PMHx: Past Medical History: [...] ??C), Max:99.2 ??F (37.3 ??C) Input/Output 09/12 1899 - 09/14 0659 In: 1758.6 [I.V.:1758.6] Out: [...] my rounds Critical care time: 33 mins OOER * Camila Navarrete, PILE DRIVER ENGINEER - 09/14/2024 12:49 PM CST [facility] 3K Ph. ; Fax. Acute Speech-Language Pathology Passy-Fountain valve Evaluation 09/14/2024 Room: [address] [place] [address] Name: Ventura Elmore Age: 49 y.o. 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 I know all about thickened [...] mode(s) of communication: gestures and mouthing words Passy-Fountain Valve Placement Trial Oral suctioning completed: Not applicable: patient presents with productive cough effort Tracheal suctioning completed: Yes Passy-Fountain speaking valve applied to: Hub of the [...] yes: Vital signs monitor currently in use Passy-Fountain Valve placement trial under direct PILE DRIVER ENGINEER observation: 20 minutes with Ventura donning and [...] wants and needs. Recommendations DISCHARGE RECOMMENDATIONS: Continued PILE DRIVER ENGINEER services post-acute, location pending physical needs Recommendations for referral to another service: None at this time Precautions Plan of Care Patient precautions: Tracheostomy Tube, PMV, and Isolation Continue PILE DRIVER ENGINEER services to address Passy Fountain Valve intervention, anticipate follow up in the next 2-4 days or as medical condition changes. Plan of care to continue for the duration of the patient's acute care hospital stay or until goals are met. Please notify speech therapy department should the patient's condition change and/or patient requires PILE DRIVER ENGINEER services prior to the next anticipated PILE DRIVER ENGINEER visit. Education Disposition Regarding: rationale of Passy Fountain Speaking Valve placement, care/management of Passy-Jeff SpeakingValve, total communication options, and speech therapy [...] you for this referral, ~Camila Navarrete M.S., [facility]-PILE DRIVER ENGINEER Acute Speech Therapy Charge Zone Phone #[phone] Acute Speech Therapy Charge Pager #[phone] OOER * Mahendra Beltran PHARMACIST - 09/14/2024 11:05 AM CST Vancomycin Consult to Pharmacy Vancomycin Day # 2 of therapy Serum creatinine: 1.34 mg/dL (H) 09/14/24 0711 Estimated creatinine clearance: 53.5 mL/min (A) NOTE: This calculation is potentially inaccurate in acute and/or chronic kidney disease and over/under weight patients, and thus is only an estimation of renal function Assessment: Vetnura Elmore is a 49 y.o. female who [...] will continue to monitor. Mahendra Beltran, PHARMACIST OOER * Phong Huggins RN - 09/14/2024 3:00 AM CST Critical Manufacturing Process Engineer Scribed COVID Negative Note COVID-19 test is negative according to lab results, resulted at 09/13/2024 (date) 2131 (time). This note is prepared by Phong Huggins RN , Critical Manufacturing Process Engineer, acting as a scribe for Milan Cook MD Physician cosign is needed by Dr. Milan Cook MD Critical Manufacturing Process Engineer Phong Huggins RN Cosigned by Milan Cook MD at 09/16/2024 7:29 AM TATTOOER OOER OOER * Phong Huggins RN - 09/13/2024 11:54 PM CST Sepsis Coordinator Progress Note 09/13/24 11:54 PM Ventura Medranoeth [id number] Last documented weight: Weight: 85 kg (187 lb 6.3 oz) (09/13/242029)): Body mass index is 31.18 kg/m??. ADT events: Sepsis Activation d/t Bedside Provider, with Hypotension. Rule out Suspect Infection/Source Unknown Heart Rate >90 no Respiratory Rate >20 no WBC >52542 or <4000 no Temp >100.9 or <96.8 [...] 1250 mg Ordered Time: 2114 Start Time: 2304 3. Antibiotic: mg Ordered Time: Start Time: 30mL/kg IVF bolus (use IBW if BMI>30): N/A Fluid Exclusion note placed Volume ordered: 1000 ml Volume administered: 1000 ml Start Time: 1736 End Time: 1806 Vasopressors started: Norepinephrine Time: 1730 Pt Septic: Rule out Septic Shock Sepsis process discontinued by (provider): OOER * Phong Huggins RN - 09/13/2024 11:53 PM CST Critical Manufacturing Process Engineer Sepsis Note Patient was given fluid challenge. Phong Huggins RN OOER * Phong Huggins RN - 09/13/2024 11:52 PM CST Critical Manufacturing Process Engineer Note 11:52 PM Concerned 30ml/kg of crystalloid fluids may be harmful despite having Documentation of septic shockin this patient with Fluid Overload. The patient will be administered 1000 ml in total 30 minutes and then reevaluated. This note is prepared by Phong Huggins RN , Critical Manufacturing Process Engineer RN, acting as a scribe for Dr. Milan Huggins RN Cosigned by Milan Cook MD at 09/16/2024 7:29 AM TATTOOER OOER OOER OOER OOER * Camila Rod RN - 09/13/2024 11:40 PM CST [facility] Sepsis Surveillance note (A positive vSepsis screen does not imply diagnosis) Potential Time Zero: 2321 3hr channing: 2 6hr channing: 0522 Criteria A - Questionable [...] - Yes;Administered - Yes (Within time frame) (09/13/242329) The [facility] Sepsis team has notified the Sepsis Coordinator, Andriy MISHRA via secure chat and discussed the above. Please call [facility] Sepsis if any assistance is needed. Please call [facility] Sepsis if the patient is not septic and the sepsis alert needs to be cancelled. [facility] Sepsis Camila Rod RN OOER * Raghu Sosa PHARMACIST - 09/13/2024 9:24 PM CST RX ANTICOAG MONITORING ORDERS Pharmacy to order, review, and report clinically significant changes in lab per [facility] Anticoagulation Protocol as follows: Orders for dosing changes and follow-up labs will be signed ???Per Protocol?? in [facility]. The name ofthe provider signed on the follow-up orders for cosignature will be assigned as follows: Orders placed by members of the Big 6 Dealer or Hospitalist physician groups: If the original [...] order appropriate labs as indicated by the [facility] Anticoagulation Monitoring policy located on [facility] intranet, unless already ordered. The medications that [...] This policy is in compliance with the [employer] National Patient Safety Goal 3E and authorized by the [facility] Pharmacy and Therapeutics Committee. Cosigned by Milan Cook MD at 09/13/2024 11:55 PM TATTOOER OOER OOER * Raghu Sosa PHARMACIST - 09/13/2024 9:16 PM CST Vancomycin and Cefepime Consult to Pharmacy Current Antibiotic Therapies Vancomycin and Cefepime Day # 1 Serum creatinine: 1.65 mg/dL (H) 09/13/24 1648 Estimated creatinine clearance: 42.2 mL/min (A) NOTE: This calculation is potentially inaccurate in acute and/or chronic kidney disease and over/under weight patients, and thus is only an estimation of renal function Assessment: Ventura Kaltag is a 49 y.o. female who is [...] will continue to monitor. Raghu Sosa PHARMACIST OOER * Raghu Sosa PHARMACIST - 09/13/2024 9:16 PM CST PHARMACY CONSULT SERVICE PROTOCOL: A ???CONSULT TO PHARMACY?? order has been placed on this patient per Hospital Pharmacy policy- [facility] Clinical Pharmacy Services. This order can be found on the [facility] and authorizes pharmacy tomanage the dosing and [...] labs will be signed ???Per Protocol?? in [facility]. The name of the provider signed on the follow-up orders for cosignature will be assigned as follows: Consults for patients whose antimicrobials are being managed by members of the Big 6 Dealer or Hospitalist physician groups: If the original [...] the ???CONSULT TO PHARMACY?? order from the [facility] MAR. This protocol has been approved by the [facility] Pharmacy and Therapeutics Committee. Cosigned by Milan Cook MD at 09/13/2024 11:55 PM TATTOOER OOER OOER documented in this encounter H&P Notes * Kelin Bunn, CLIENT SERVICES ASSISTANT - 09/13/2024 7:47 PM CST Images from the original note were not included. CRITICAL CARE MEDICINE HISTORY & PHYSICAL PCP: Anu Thompson DO Subjective: CC: Hypotension, tachycardia HPI: Ventura Elmore is a 49 y.o. female admitted 09/13/2024 with hypotension and tachycardia. Recently hospitalized at [place] between 08/22/2024 through 08/25/2024. Seen by her [...] She was transferred to the ICU under [facility] management. Database: Past Medical History: Diagnosis [...] BP Temp Temp src Pulse Resp SpO2 09/13/24 2045 109/62 -- -- 70 18 97 % 09/13/242029 109/59 -- -- 75 18 95 % 09/13/241999 -- -- -- 71 14 95 % 09/13/241944 -- -- -- 72 16 95 % 09/13/241929 -- -- -- 66 17 96 % 09/13/241924 103/81 -- -- 71 14 95 % 09/13/241918 -- -- -- 89 24 96 % 09/13/241914 97/58 -- -- 74 18 95 % 09/13/241909 104/87 -- -- 80 22 91 % 09/13/24 190 110/62 -- -- 72 17 94 % 09/13/24 184 105/63 -- -- 76 17 90 % 09/13/24 183 97/54 -- -- 78 19 (!) 88 [...] previously been evaluated for CABG 2v. S/p ACRMELO. Resume ASA and Plavix History of hypertension-holding [...] Milan Cook MD at 09/13/2024 11:21 PM TATTOOER OOER OOER Associated attestation - Milan Cook MD - 09/13/2024 11:21 PM TATTOOER I reviewed the medical record including the applicable Critical Care Medicine APC note from today. I independently examined the patient I discussed the history, physical findings, laboratory findings, assessment and plan with the applicable APC on rounds.? I have reviewed the physical exam findings in the applicable resident/Fellow/CLIENT SERVICES ASSISTANT/PA's note; my notable physical exam findings include: [...] Ventura Elmore DATE OF : 1975 CSN: [id number] DATE: 09/14/2024 Room: [address] [place] [address] Admit Date: 09/13/2024 Hospital day: LOS: 1 [...] days and as needed using sterile technique OOER * Angelica Balbuena RN - 09/14/2024 7:13 AM CST VASCULAR ACCESS TEAM Lab collection PATIENT NAME: Ventura Elmore DATE OF : 1975 CSN: [id number] DATE: 09/14/2024 Room: [address] [place] [address] Admit Date: 09/13/2024 Hospital day: LOS: 1 day Ultrasound Guided LAB COLLECTION Ultrasound assessment was performed to assess adequacy of vascular anatomy Adequate vessel was located Insertion site cleansed for 30 seconds with Chlora-prep. Site allowed to dry before ultrasound guided needle stick. Labs collected Yes Location: right, lower Arm Blood Cultures collected No 1 attempts 30 minutes required to complete procedure Angeilca Balbuena RN, [facility] OOER * Raghu Kincaid - 09/13/2024 7:48 PM CST VASCULAR ACCESS TEAM Lab collection PATIENT NAME: Ventura Elmore DATE OF : 1975 CSN: [id number] DATE: 09/13/2024 Room: 01/26 Admit Date: 09/13/2024 [...] minutes required to complete procedure Raghu Kincaid OOER documented in this encounter Consult Notes * Angelique Baum, COMMERCIAL LINES ACCOUNT EXECUTIVE - 09/18/2024 11:03 AM CST Oxygen Saturation [...] patient reach Cardiopulmonary Rehab Team Zone Phone: [phone] OOER * Reinaldo Dsouza MD - 09/14/2024 8:03 PM CST Spoke with patient in regards to removing all remaining teeth pre-radiation while inpatient. Will follow peripherally, please call when patient is deemed stable to undergo general anesthetic and fullmouth extractions. [phone] OOER * Maricarmen Spencer RN - 09/14/2024 4:02 PM CSTAssociated Order(s): IP CONSULT TO IV TEAM VASCULAR ACCESS CONSULT PATIENT NAME: Ventura Elmore DATE OF : 1975 CSN: [id number] DATE: 09/14/2024 Room: [address] [place] [address] Admit Date: 09/13/2024 Hospital day: LOS: 1 day INDICATION: Pt./Dr. Preference EXCLUSIONS/CONSIDERATIONS: Multiple infusions, CKD/RADHA-GFR 48, pending [...] Admin Instructions, see admin instructions, Kelin Bunn CLIENT SERVICES ASSISTANT acetaminophen (TYLENOL) tablet 650 mg, 650 mg, Oral, every 6 hours PRN, Kelin Bunn, CLIENT SERVICES ASSISTANT ondansetron (ZOFRAN) 4 mg/2 mL injection 4 mg, 4 mg, IV, every 6 hours PRN, Kelin Bunn, CLIENT SERVICES ASSISTANT clopidogreL (PLAVIX) tablet 75 mg, 75 mg, G Tube, daily, Kelin Bunn, CLIENT SERVICES ASSISTANT, 75 mg at 09/14/24 1003 aspirin (RISA CHEWABLE) chewable tablet 81 mg, 81 mg, G Tube, daily, Kelin Bunn, CLIENT SERVICES ASSISTANT, 81 mg at 09/14/24 1002 atorvastatin (LIPITOR) tablet 80 mg, 80 mg, G Tube, daily BEDTIME, Kelin Bunn, CLIENT SERVICES ASSISTANT, 80 mg at 09/13/242128 budesonide (PULMICORT RESPULE) 0.5 mg/2 mL inhalation solution 0.5 mg, 0.5 mg, Inhalation, resp, daily, Kelin Bunn, CLIENT SERVICES ASSISTANT, 0.5 mg at 09/14/24 1103 PARoxetine HCl (PAXIL) tablet 20 mg, 20 mg, G Tube, daily, Kelin Bunn CLIENT SERVICES ASSISTANT, 20 mg at 09/14/24 1003 HYDROcodone-acetaminophen (NORCO) 5-325 mg per tablet 1 Tablet, 1 Tablet, Oral, every 4 hours PRN, Kelin Bunn CLIENT SERVICES ASSISTANT, 1 Tablet at 09/14/24 1449 cefePIME (MAXIPIME) [...] Plan to place midline. Maricarmen Spencer RN OOER * Rashmi Dumont MD - 09/14/2024 10:07 AM CST [place], [place] ONCOLOGY CONSULTATION NOTE Ventura Elmore is a 49 y.o. female 1975 CSN:[id number] Referring provider: Dr. Garcia Reason for referral Laryngeal cancer History of Present illness: This is an 49 year old female patient of Dr. Domínguez with a history of laryngeal cancer. Patient admitted to [facility] 09/13/2024 for septic shock. Was seen in [...] obstruction, requiring her to be admitted to [facility] in [place], where she underwent biopsy of left true [...] with the following history as recorded in [facility]: Patient Active Problem List Diagnosis Date Noted Severe sepsis with septic shock ([facility]) 09/13/2024 Hx of laryngeal cancer 09/13/2024 Acute renal failure superimposed on chronic kidney disease 09/13/2024 Laryngeal squamous cell carcinoma ([facility]/HCC) 07/13/2024 Bipolar disorder, unspecified (CMS/HCC) 04/21/2024 Methamphetamine abuse (CMS/HCC) 04/21/2024 Essential hypertension 04/21/2024 CAD (coronary atherosclerotic disease) 04/21/2024 Acute on chronic diastolic heart failure (CMS/HCC) 04/21/2024 Stridor 04/21/2024 COPD (chronic obstructive pulmonary disease) (CMS/[facility]) 04/21/2024 CKD (chronic kidney disease) 04/21/2024 Acute [...] vasopressors--->Subsequent chemoradiation Patient is interested in placement OOER OOER OOER * Felipa Colon RD - 09/14/2024 9:21 AM CSTAssociated Order(s): [...] and encourage nutrient dense foods and beverages. Bryant requests. Nutrition Interventions: Encourage adequate intake (09/14/24918) [...] barely perceptible pit (no findings) (09/14/24918) Hand Energy Projects Lead: Strong video production coordinator (no findings) (09/14/24918) Percentage of Energy: Adequate nutrient intake (no findings) (09/14/24918) Percentage of Weight Loss: No history of significant wt loss (09/14/24918) Estimated Needs: Estimated Energy Target: 7228-3809 (09/14/24917) Estimated Protein Target: 70-80 (09/14/24917) Estimated Fluid Target : [id number] (09/14/24917) Nutrition Energy Formula: Calories per kilogram (09/14/24917) Weight Used for Formula: Adjusted body weight (09/14/24917) Clinical Data: Height: 5' 5 (165.1 cm) (09/13/242029) [place] body weight: 57 kg (125 lb 10.6 oz) Adjusted ideal body weight: 68.2 kg (150 lb 5.7 oz) Body mass index is 31.18 kg/m??. Admission:Weight: 85 kg (187 lb 6.3 oz) (09/13/242029) Weight Method: Actual (09/13/242029) Current:Weight: 85 kg (187 lb 6.3 oz) (09/14/24299) Wt Readings from Last 8 Encounters: 09/14/24 [...] Food/Meal: Breakfast (09/14/24 075),Intake (%): 90% (09/14/24 0754) ,Intake (%): 90% (09/14/24 075) Allergies: Allergies Allergen Reactions Hydromorphone Dizziness and Headache Past Medical History: Diagnosis Date Bipolar disorder ([facility]) Laryngeal squamous cell carcinoma ([facility]) 07/13/2024 Migraine Schizophrenia ([facility]) Labs Recent Labs 09/13/24 1337 09/13/24 1648 [...] Time spent:Consultation Time (mins): 30 mins (09/14/24917) OOER * Angelica Balbuena RN - 09/14/2024 6:56 AM CSTAssociated Order(s): IP CONSULT TO IV TEAM VASCULAR ACCESS CONSULT PATIENT NAME: Ventura Elmore DATE OF : 1975 CSN: [id number] DATE: 09/14/2024 Room: [address] [place] [address] Admit Date: 09/13/2024 Hospital day: LOS: 1 day INDICATION: Pt./ Preference EXCLUSIONS/CONSIDERATIONS: see history and notes Assessment [...] Phillip MD, Last Rate: 10.51 mL/hr at 09/14/24 0323, 0.07 mcg/kg/min at 09/14/24 0323 [COMPLETED] lidocaine [...] MD, Last Rate: 150 mL/hr at 09/14/24 0347, New Bag at 09/14/24 0347 [COMPLETED] morphine 4 mg/mL injection 4 mg, 4 mg, IV, ONE time only, Humberto Phillip MD, 4 mg at09/13/242055 naloxone (NARCAN) 0.4 mg/mL injection 0.1-0.4 mg, 0.1-0.4 mg, IV, see admin instructions, Klein Bunn NP replacement reminder - Potassium, 1 [...] 81 mg, 81 mg, G Tube, daily, Klein Bunn NP atorvastatin (LIPITOR) tablet 80 mg, [...] PRN, Kelin Bunn NP, 1 Tablet at 09/14/24527 cefePIME (MAXIPIME) 2,000 mg in sodium chloride 0.9% 50 mL IVPB (MBP), 2,000 mg, IV, every 12 hours(2 times daily), Kelin Bunn NP, Stopped at 09/13/242158 VANCOMYCIN CONSULT TO PHARMACY, , See Admin [...] MD PLAN Ultrasound labs Angelica Balbuena RN, [facility] OOER documented in this encounter OR Notes * Operative Report - Reinaldo Dsouza MD - 09/17/2024 3:51 PM CST [place], [place] Patient: VENTURA ELMORE CSN: [id number] : 1975 Provider: Reinaldo Dsouza DDS, MD OPERATIVE PROCEDURE NOTE DATE OF SERVICE: 09/17/2024 [...] questions. Reinaldo Dsouza DDS, MD MMODL D: [id number] V: [id number] cc: OOER documented in this encounter ED Notes * Nanette Salter RN - 09/13/2024 8:00 PM CST Report called and given to nurse Ramiro on 3E at this time. OOER * Nanette Salter RN - 09/13/2024 7:30 PM CST Rounded on pt. IV team at pt bedside at this time. OOER * Nanette Salter RN - 09/13/2024 7:17 PM CST Assumed care of pt, report received from Delaney MISHRA. Rounded on pt, introduced self. Pt currently awake and laying in bed. Pt's breathing even and unlabored, chest rise and fall noted with breathing. Pt voiced no needs at this time. OOER * Delaney Cabezas RN - 09/13/2024 7:16 PM CST Report given to DANICA Fitzpatrick. OOER * Delaney Cabezas RN - 09/13/2024 6:46 PM CST This RN rounded on pt at this time. Pt assisted to use the bedpan. Pt infusions started per OCT. Ptdenies any further needs at this time. Delaney Frazier RN - 09/13/2024 6:29 PM CST This RN rounded on pt at this time. Pt helped to use bedpan at this time. Pt denies any further needs. Call light in reach. Delaney Frazeir RN - 09/13/2024 5:56 PM CST This RN rounded on pt at this time. Pt linens changed d/t urination. Pt also assisted to use bedpan. Pt given new warm blankets for comfort. Pt denies any further needs. Call light in reach. OOER Delaney Donaldson RN - 09/13/2024 5:30 PM CST This RN rounded on pt at this time. Pt given medications per OCT. Pt lights dimmed for comfort. Pt denies any further needs. Call light in reach. OOER * Delaney Cabezas RN - 09/13/2024 5:25 PM CST This RN notified Dr. Phillip about pt low BP. Orders placed at this time per physician order. OOER * Delaney Cabezas RN - 09/13/2024 4:52 PM CST Pt presents to Ed via EMS as a HYPOTENSIVE MEDICAL ALERT with chief complaint of hypotensive and shortness of breath. Pt states onset of about an hour ago. Pt states her brought her up to stay at the [facility] to get her appointments figured out. Pt [...] Monitors on and audible. Pt placed on awake overnight monitor, pulse ox and blood pressure. Call light at bedside. Pt encouraged to call with needs. Weapons assessment performed. Education provided regarding facility weapon storage and securement policy. Ivonne A Parul denied possession of any weapons or firearms at this time Reminder: If a weapon is secured on campus, place a copy of this note in the discharge instructions to ensure it is returned upon discharge. OOER * Humberto Phillip MD - 09/13/2024 4:22 [...] ED Course as of 09/13/241933Sep 13, 2024 1643 RT was called to besides for suction [...] UA w/ Reflex Microscopic(!) No UTI [LA] 1835 After reevaluation the patients hypotension could be due to hypovalemia secondary to decreasedPO intake. Will turn off levophed and give another liter then reassess. [MP] 183 CREATININE(!): 1.65 1.32 one month ago [LA] [address] Cook (ICU). [MP] 1844 Hxpoxic 88% so placed on 2L NC [LA] 1844 TROPONIN T, BASELINE 5TH GEN(!): 21 trend [LA] 193 Discussed the pt with Dr. Cook and they agreed to admit the pt for continued observation. [MP] ED Course User Index [LA] Humberto Phillip MD [MP] Amarilis Castillo, Brittni Clinical Scoring & Consults Prior to obtaining [...] external notes review of the most recent hospitalist/PCP/home performance consultant/procedure/imaging/lab records, diagnostics/vitals performed/interpreted in comparison to others that may be available in the medical record (see above), and ED course (see above), some of these diagnoses can be excluded. The final impression of the visit and disposition is in the chart.. Medications Administered During the ED Stay from 09/13/2024 1622 to 09/13/2024 1934 Date/Time Order Dose Route Action 09/13/2024 1725 TATTOOER sodium chloride 0.9 % bolus solution 1,000 mL 0 mL IV Stopped 09/13/2024 1651 TATTOOER sodium chloride 0.9 % bolus solution 1,000 mL 1,000 mL IV Started by Another Clinician 09/13/2024 1730 TATTOOER norepinephrine bitartrate-D5W (LEVOPHED) 8 mg/250 mL (32 mcg/mL) infusion 0.05 mcg/kg/min IV New Bag 09/13/2024 1731 TATTOOER lidocaine (XYLOCAINE) 2 % viscous oral solution 10 mL 10 mL Mouth/Throat Given 09/13/2024 1806 TATTOOER sodium chloride 0.9 % bolus solution 1,000 mL 0 mL IV Stopped 09/13/2024 1736 TATTOOER sodium chloride 0.9 % bolus solution 1,000 mL 1,000 mL IV New Bag 09/13/2024 1846 TATTOOER sodium chloride 0.9 % infusion -- IV [...] documentation may have been created by an artificial market research consultant software. Effort has been done to assure accuracy of market research consultant. Any obvious errors or omissions should be [...] N18.9] Humberto Phillip MD 09/13/2024 7:31 PM OOER documented in this encounter Miscellaneous Notes * Care Plan - Katt Parrish LMSW - 09/28/2024 8:48 AM CST International Marketing Intern Discharge Planning SW received call from attending [...] also currently has level II pending with [facility]. ALTHEA Mahendra completed corrections for level II yesterday 09/27 and resubmitted. Now waiting for onsite and approval/denial from [facility] regarding LTC placement. ADD 1103: SW received [...] Status: Facility Referrals - Pending Preferred Pharmacy: [facility] - [address], [address] Patient / Family Communications: Patient/Family Communications: Plan Discharge To Update (09/14/24 1252) Discharge Plan Agreed Upon: Patient (09/14/24 1252) Resources Provided: Resource List Given: Care facilities (09/14/24 1252) Resource List Given To: Patient (09/14/24 1252) Transportation Plan Follow Up Appointments Scheduled Katt Parrish LMSW OOER OOER OOER OOER * Care Plan - Serene Steven RN [...] status 7. Communication/sensory 8. Behavior Outcome: Variance OOER * Care Plan - Briana Astudillo RN [...] will demonstrate the desired outcomes. Outcome: Variance OOER * Care Plan - Katt Parrish LMSW - 09/27/2024 10:03 AM CST International Marketing Intern Discharge Planning ALTHEA continues to work on finding LTC placement for this pt. At this time, [facility] and [facility] have declined. [facility] shared they cannot care for complex pt needs and [facility] do not have a bed available at this time. [facility] have declined due to acuity too high and [facility] declined due to no bed available as well. ALTHEA called Fernie with [facility] who shared she would be discussing pt case further with SAMIR and would call this SW back shortly. Expected Discharge Date Oct 03, 2024 Plan Discharge To: Medicaid certified nursing facility (09/21/24 0957) Referrals Status: Facility Referrals - Pending Preferred Pharmacy: [facility] - [facility] [address] [place] [address], [address] Patient / Family Communications: Patient/Family Communications: Plan Discharge To Update (09/14/24 1252) Discharge Plan Agreed Upon: Patient (09/14/24 1252) Resources Provided: Resource List Given: Care facilities (09/14/24 1252) Resource List Given To: Patient (09/14/24 1252) Transportation Plan Follow Up Appointments Scheduled Katt Parrish LMSW OOER * Care Plan - Serene Steven RN [...] status 7. Communication/sensory 8. Behavior Outcome: Variance OOER * Care Plan - Trevor Werner RCP - 09/27/2024 3:03 AM CST Reason for Ventura Catarina Airvo use: [x]Trach Heat and Humidity [x]Acute Flow/O2 therapy Airvo Settings: Oxygen Therapy Flow (L/min): 35 (09/27/24 0250) FIO2%: 30 (09/27/24 0250) HAG/CAG conversion for discharge planning LPM Flow FiO2 6 28 8 30 10 35 12 40 12 50 12 70 12 100 Trevor Werner RCP OOER * Care Plan - Debbie Kirkpatrick RN [...] stand by assistance or independently Outcome: Met OOER * Care Plan - Katt Parrish LMSW - 09/26/2024 11:15 AM CST International Marketing Intern Discharge Planning SW continues to follow. ALTHEA received voice message from Mi with [facility] who shared they have declined pt as they cannot care for pt needs at this time. ALTHEA sent communication to Ami with [facility] to determine if facility has reviewed referral; awaiting response. ALTHEA also called Fernie with [facility] and left voice message; awaiting response. ADD 1130: Ami with [facility] shared they are currently denying pt at this time. ALTHEA refaxed to [facility], [facility], [facility] and [facility] to reconsider. Expected Discharge Date Oct 03, 2024 Plan Discharge To: Medicaid certified nursing facility (09/21/24 0957) Referrals Status: Facility Referrals - Pending Preferred Pharmacy: [facility] - [address], [address] Patient / Family Communications: Patient/Family Communications: Plan Discharge To Update (09/14/24 1252) Discharge Plan Agreed Upon: Patient (09/14/24 1252) Resources Provided: Resource List Given: Care facilities (09/14/24 1252) Resource List Given To: Patient (09/14/24 1252) Transportation Plan Follow Up Appointments Scheduled Katt Parrish LMSW OOER OOER * Care Plan - Jarvis Howard RCP - 09/25/2024 4:55 PM CST Daily Respiratory Reassessment Note Ventura Elmore 49 y.o. female [id number] Daily respiratory reassessment of ordered therapy was performed. Based upon the finding documented on Doc Flowsheet, therapy ordered will continue the same. Jarvis Howard RCP OOER * Care Plan - Jarvis Howard RCP - 09/25/2024 4:54 PM CST Reason for Ventura Elmore Airvo use: [x]Trach Heat and Humidity []Acute Flow/O2 therapy Airvo Settings: 35 Lpm 21 FiO2 HAG/CAG conversion for discharge planning LPM Flow FiO2 6 28 8 30 10 35 12 40 12 50 12 70 12 100 Jarvis Howard RCP OOER * Care Plan - Shirin Suárez RN - 09/25/2024 2:17 [...] (Adult) Goal: Infection, Risk/Actual: Infection Prevention/Resolution/Control Description: Edna midline will remain free from infection. Patient [...] discharge or maintain baseline function Outcome: Progressing OOER * Care Plan - Katt Parrish LMSW - 09/25/2024 9:45 AM CST International Marketing Intern Discharge Planning Complex team asked to follow and review pt. ALTHEA noted pt currently awaiting LTC placement. Placementneeding to be close to [place] as pt needing to transport for chemo/radiation. 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 ALTHEA received call from Noemy with [facility] who shared theycannot accept pt as they cannot accommodate for pt needs at this time. ALTHEA also received communication from Lorraine with [facility] who shared facility cannot accept either, for same reasons. ALTHEA to inquire with [facility] about referral status. ADD 0953: Additional referrals sent to [facility]. Expected Discharge Date Oct 03, 2024 Plan Discharge To: Medicaid certified nursing facility (09/21/24 0957) Referrals Status: Facility Referrals - Pending Preferred Pharmacy: [facility] - [facility] [address] [place] [address], [address] Patient / Family Communications: Patient/Family Communications: Plan Discharge To Update (09/14/24 1252) Discharge Plan Agreed Upon: Patient (09/14/24 1252) Resources Provided: Resource List Given: Care facilities (09/14/24 1252) Resource List Given To: Patient (09/14/24 1252) Transportation Plan Follow Up Appointments Scheduled Katt Parrish LMSW OOER OOER OOER * Care Plan - Kira Ren RCP - 09/24/2024 11:41 AM CST Reason for Venutra Catarina Airvo use: [x]Trach Heat and Humidity []Acute Flow/O2 therapy Airvo Settings: 35 Lpm 21 FiO2 HAG/CAG conversion for discharge planning LPM Flow FiO2 6 28 8 30 10 35 12 40 12 50 12 70 12 100 Kira Ren RCP OOER * Care Plan - Trevor Werner RCP - 09/24/2024 5:43 AM CST Reason for Ventura Kaltag Airvo use: [x]Trach Heat and Humidity []Acute Flow/O2 therapy Airvo Settings: Oxygen Therapy Flow (L/min): 35 (09/24/24 0525) FIO2%: 21 (09/24/24 0525) HAG/CAG conversion for discharge planning LPM Flow FiO2 6 28 8 30 10 35 12 40 12 50 12 70 12 100 Trevor Werner RCP OOER * Care Plan - Sweta Blanco RCP - 09/23/2024 10:16 AM CST Sweta Blanco RCP Reason for Ventura Elmore Airvo use: [x]Trach Heat and Humidity []Acute Flow/O2 therapy Airvo Settings: 35 Lpm 21 FiO2 HAG/CAG conversion for discharge planning LPM Flow FiO2 6 28 8 30 10 35 12 40 12 50 12 70 12 100 Sweta Blanco RCP OOER * Care Plan - Mandy Farncois RN - 09/22/2024 1:27 PM CST Problem: [...] discharge or maintain baseline function Outcome: Progressing OOER * Care Plan - Annmarie Manrique RCP - 09/22/2024 10:00 AM CST Reason for Ventura Catarina Airvo use: [x]Trach Heat and Humidity [x]Acute Flow/O2 therapy Airvo Settings: 35 Lpm 30% FiO2 HAG/CAG conversion for discharge planning LPM Flow FiO2 6 28 8 30 10 35 12 40 12 50 12 70 12 100 Annmarie Manrique RCP OOER * Care Plan - Mahendra Fuentes BSW - 09/22/2024 8:53 AM CST International Marketing Intern Discharge Planning Expected Discharge Date Oct 03, 2024 Plan Discharge To: Medicaid certified nursing facility (09/21/24 0957) Level II submitted for pt. Code: [id number] Will need approval from [facility] before admission to LTC facility, continuing search for accepting facility. Will remain IP 1-2 weeks due to state processing. Referrals Status: Facility Referrals - Considering Preferred Pharmacy: [facility] - [address], [address] Patient / Family Communications: Patient/Family Communications: Plan Discharge To Update (09/14/24 1252) Discharge Plan Agreed Upon: Patient (09/14/24 125) Resources Provided: Resource List Given: Care facilities (09/14/24 125) Resource List Given To: Patient (09/14/24 125) Transportation Plan Follow Up Appointments Scheduled KALANI Saravia OOER * Care Plan - Emily Cortes RCP - 09/21/2024 2:58 PM CST Reason for Venturarobby Elmore Airvo use: [x]Trach Heat and Humidity []Acute Flow/O2 therapy Airvo Settings: 35 Lpm 36% FiO2 HAG/CAG conversion for discharge planning LPM Flow FiO2 6 28 8 30 10 35 12 40 12 50 12 70 12 100 Emily Cortes RCP OOER * Care Plan - Mahendra Fuentes BSW - 09/21/2024 2:44 PM CST International Marketing Intern Discharge Planning Expected Discharge Date Sep 21, 2024 Plan Discharge To: Medicaid certified nursing facility (09/21/24 0957) After further review, pt will trigger a level II due to impairment she has from her mental health symptoms. This will take 1-2 weeks to process before can DC. Further review under way to determine ifpt meets point count to qualify for custodial level of care since therapy has cleared her for home. Referrals Status: Facility Referrals - Considering Preferred Pharmacy: [facility] - [facility] [address] [place] [address], [address] Patient / Family Communications: Patient/Family Communications: Plan Discharge To Update (09/14/24 125) Discharge Plan Agreed Upon: Patient (09/14/24 125) Resources Provided: Resource List Given: Care facilities (09/14/24 125) Resource List Given To: Patient (09/14/24 125) Transportation Plan Follow Up Appointments Scheduled KALANI Saravia OOER OOER * Care Plan - Mandy Francois RN [...] discharge or maintain baseline function Outcome: Progressing OOER * Care Plan - Samra Ruvalcaba MSW - 09/20/2024 3:33 PM CST International Marketing Intern Discharge Planning Expected Discharge Date Sep 18, 2024 Plan Discharge To: Inpatient Rehab Facility;Home with family assist (09/18/24 1014) Referrals Status: Facility Referrals - Pending Spoke to patient over the phone. She states she had housing issues prior to hospital admission. Shestates Trach and Peg are both OLD from AprilMay 2024. She wants to go to Snf for remote computer terminal operator care. Explained she would have to go to SNF in [place] due to needing transport to/ from chemo/radiation. She is agreeable to sending referrals out in [place]. Multple SNF referrals sent today. CHOICE FORMCOMPLETED AND PLACED ON CHART. DA124 CODE: [id number] (EMAILED TO DR. KATE) Preferred Pharmacy: [address], [address] Patient / Family Communications: Patient/Family Communications: Plan Discharge To Update (09/14/24 1252) Discharge Plan Agreed Upon: Patient (09/14/24 1252) Resources Provided: Resource List Given: Care facilities (09/14/24 1252) Resource List Given To: Patient (09/14/24 1252) Transportation Plan Follow Up Appointments Scheduled LORENA Mejia OOER OOER * Query - Arlyn Kate MD - 09/20/2024 2:28 PM CST Please respond within 48 hours. Thank you! The authenticated query note is part of the Legal Health Record Patient Name: Ventura Elmore Admission Date: 09/13/2024 [facility] #: [id number] Dear Doctor, Please continue to document the [...] listed below. Pt will benefit from ongoing PILE DRIVER ENGINEER intervention to improve physiologic impairments listed above. If pt is to discharge soon, recommend ongoing PILE DRIVER ENGINEER services as intensive as possible in discharge [...] disease) COPD (chronic obstructive pulmonary disease) (CMS/HCC) Question: Is there an associated diagnosis related [...] This query was initiated by Beatrice Hyde [facility] Clinical Documentation [email or web address] [email or web address] * Care Plan - Marisa Aquino, Physical Therapist - 09/20/2024 2:26 PM TATTOOER [facility] - Therapy Services 3K Ph. Acute Physical Therapy Treatment 09/20/2024 Room: [address] [place] [address] Name: Ventura Elmore Age: 49 y.o. Date of : 1975 Insurance: Payor: MEDICAID / Plan: [place]ICAID [place] / Product Type: Medicaid / Subjective Information Comments: Patient found in bed upon arrival, agreeable to therapy. Reports up ad desiree to BS, limited on mobility due to connection to airvo. Pain: Refer to Doc. Flowsheet for documented [...] UE support Time Standing - 7 minutes [facility] AM-PAC Basic Mobility How much help [...] collaborating with supervising therapist. Per collaboration with PERSONAL [employer]Y [employer], pt has met PT goals and is safe for discharge home with assistance. Will complete PT orders at this time. Marisa Aquino, Physical Therapist Recommendations Based on PT assessment of and/or progress with physical function, AM-PAC Basic Mobility score, potential for improvement, available [...] Thank you for this referral, Heidy Webb Tub Washer Problem: Physical Mobility, Impaired Goal: Mobility goal: Improve ambulation by discharge Description: Patient will ambulate 150 feet on level surface, using rolling walker assistive device, with modified independence so patient can navigate discharge environment. Outcome: Progressing Goal: Mobility goal: Ascend/descend stairs by discharge Description: Patient will ascend/descend 3 steps with 1 handrails with modified independence for home/community mobility. Outcome: Variance OOER OOER OOER * Care Plan - Aliya Asif RCP - 09/19/2024 10:37 PM CST Reason for Ventura Elmore Airvo use: [x]Trach Heat and Humidity [x]Acute Flow/O2 therapy Airvo Settings: 60 Lpm 50 FiO2 HAG/CAG conversion for discharge planning LPM Flow FiO2 6 28 8 30 10 35 12 40 12 50 12 70 12 100 Aliya Asif RCP OOER * Care Plan - Samra Ruvalcaba MSW - 09/19/2024 2:56 PM CST International Marketing Intern Discharge Planning Expected Discharge Date Sep 18, [...] Have asked that she be reviewed for manager community relations to follow. Preferred Pharmacy: [facility] - [place] - [id number], [address] Patient / Family Communications: Patient/Family Communications: Plan Discharge To Update (09/14/241251) Discharge Plan Agreed Upon: Patient (09/14/24 125) Resources Provided: Resource List Given: Care facilities (09/14/24 125) Resource List Given To: Patient (09/14/24 125) Transportation Plan Follow Up Appointments Scheduled LORENA Mejia OOER * Care Plan - Samra Ruvalcaba MSW - 09/18/2024 10:13 AM CST International Marketing Intern Discharge Planning Expected Discharge Date Sep 18, 2024 Plan Discharge To: [facility] Facility (09/14/24 1252) Referrals Status: Call placed [...] option depending on therapy recommendations. Preferred Pharmacy: [facility] [place] [place] - [address], [address] Patient / Family Communications: Patient/Family Communications: Plan Discharge To Update (09/14/241251) Discharge Plan Agreed Upon: Patient (09/14/24 125) Resources Provided: Resource List Given: Care facilities (09/14/24 125) Resource List Given To: Patient (09/14/24 125) Transportation Plan Follow Up Appointments Scheduled LORENA Mejia OOER * Care Plan - Minh Valerio [facility] - 09/18/2024 8:47 AM CST Reason for Ventura Kaltag Airvo use: [x]Trach Heat and Humidity [x]Acute Flow/O2 therapy Airvo Settings: 60 Lpm 50 FiO2 HAG/CAG conversion for discharge planning LPM Flow FiO2 6 28 8 30 10 35 12 40 12 50 12 70 12 100 Minh Valerio RCP OOER * Care Plan - Gary FranciscoYANIQUE - 09/16/2024 5:49 PM CST Images from the original note were not included. Respiratory Patient Care Assessment S- Pt states she takes Pulmicort once a day and Albuterol twice a day. Patrick Elmore is a 49 y.o. female admitted [...] mg by mouth 4 times daily. Provider, Jose traMADoL (ULTRAM) 50 mg tablet Take 1 [...] patient status PRN . Gary Francisco RCP OOER * Care Plan - Justine Lutz RN [...] status 7. Communication/sensory 8. Behavior Outcome: Progressing OOER * Therapy Evaluation - Mahendra Kwong SLP - 09/15/2024 2:27 PM CST [facility]. ; Fax. Acute Speech-Language Pathology Modified Barium Swallow Evaluation 09/15/2024 Room: [facility]/ Name: Ventura Elmore Age: 49 y.o. Date of : 1975 Insurance: Payor: MEDICAID / Plan: MEDICAID [place] / Product Type: Medicaid / Patient class: Inpatient Confirmed patient's identification of name and date of : by patient report Consent to treatment given by patient and nurse with results as follows: Onset of illness/injury or date of surgery: 09/13/2024 HPI Ventura Elmore is a 49 y.o. female admitted for hypotension and tachycardia. [facility] between 08/22/2024 through 08/25/2024. Seen by her [...] session. Anatomic view under fluoroscopy: Per radiology CLIENT SERVICES ASSISTANT, Mild impression on the posterior cervical spinesecondary [...] listed below. Pt will benefit from ongoing PILE DRIVER ENGINEER intervention to improve physiologic impairments listed above. If pt is to discharge soon, recommend ongoing PILE DRIVER ENGINEER services as intensive as possible in discharge [...] Plan of Care Patient precautions: Isolation Continue PILE DRIVER ENGINEER services to address swallowing deficits (dysphagia), anticipate follow up in the next 5-10 days or as medical condition changes. Plan of care to continue for the duration of the patient's acute care hospital stay or until goals are met. Please notify speech therapy department should the patient's condition change and/or patient requires PILE DRIVER ENGINEER services prior to the next anticipated PILE DRIVER ENGINEER visit. Education Disposition Regarding: results and recommendations [...] Before session: Patient brought to radiology by line service technician After session: Patient transferred to cart and returned to room by line service technician Current Diagnoses/Past Medical History Pertinent diagnoses [...] you for this referral, Mahendra Kwong M.S. [facility]PILE DRIVER ENGINEER Acute Speech Therapy Charge Zone Phone #[phone] Acute Speech Therapy Charge Pager #[phone] OOER * Care Plan - Maricarmen Spencer RN - 09/14/2024 4:40 PM CST Problem: Infection, Risk/Actual (Adult) Goal: Infection, Risk/Actual: Infection Prevention/Resolution/Control Description: Ventura's midline will remain free from infection. Patient will demonstrate the desired outcomes. Outcome: Progressing OOER * Care Plan - Nela Lomeli RN - 09/14/2024 8:32 AM CST Care Management Initial Assessment Initial Discharge Planning Assessment completed. Discussed Care Management's role and Discharge planning. Discharge Plan: Plan Discharge To: Halfway Facility Does the patient have family and/or a caregiver that is willing, able and available to assist if needed? Yes - Name/Relation:alaina Ortiz, daughter David Comments: Patient admitted for severe sepsis with septic shock. Requiring Airvo, iv levophed. CM spoke to patient about discharge plan. Patient would like to go to fpc or remote computer terminal operator care facility at discharge to help with her recovery. Her current home environment is not suitable for recovery. Provided a list of nursing facilities here in [place] and in [place] for her to review. Prior to admission [...] Extended Emergency Contact Information Primary Emergency Contact: KaltagSaleem [facility] Relation: Spouse Secondary Emergency Contact: Angel Santos Mobile Relation: Son Mother: RUIZ PENA [facility] Prescription coverage: yes [facility] [address], [address] Insurance coverage verified: Payor: MEDICAID / Plan: [place]ICAID [place] / Product Type: Medicaid / Secondary Insurance:N/A Medicaid Status: no spend down Has VA Benefits: no Employment Status: not employed PCP verified as: Anu Thompson, DO Patient has not had a stay at an acute care hospital in the last 30 days. Recent Falls?: Last Known Fall: No falls Plan for transportation at discharge: TBD Care Management contact information provided. Care Management will continue to follow and assist asneeded. OOER * Gen AI ED Handoff - GENERATIVE AI HANDOFF NOTE - 09/13/2024 8:05 PM TATTOOER ##Situation##: Patient ( ) is a 49-year-old [...] are answered. Place the patient on a awake overnight monitor, pulse oximetry, and blood pressure monitoring. Encourage the patient to call with any needs and ensure the call light is within reach. This summary was created by fernie RODRIGUEZ. The responses are meant to enhance, not replace normal workflow. Please contact the ED nurse for any follow up or additional information. OOER * ED Bed Hold Comment Note - Nicolle Santiago RN - 09/13/2024 4:22 PM TATTOOER Bed: 06 Expected date: 09/13/24 Expected time: 4:15 PM Means of arrival: Comments: 3112: 49F cancer, hypotensive. OOER documented in this encounter Plan of Treatment Upcoming Encounters Date Type Department Care Team (Late st Contact Info) Description 10/16/2024 11:00 AM TATTOOER Appointment [facility] Oncology [facility] [address] [facility] [address] [place] [phone] Rashmi Dumont MD [address] [facility] [address] [place] [phone] [facility] Oncology, [facility] 8 10/16/2024 1:45 PM TATTOOER Appointment [facility] Radiation [facility] [address] [phone] [place] [phone] 10/17/2024 1:[address] [facility] [address] [facility] [address] [place] [phone] Karla Goldberg MD [address] [place] [phone] 10/18/2024 1:45 PM TATTOOER Appointment [address] [phone] Karla Goldberg MD [address] [place] [phone] 10/19/2024 1:45 PM TATTOOER Appointment [address] [phone] Karla Goldberg MD [address] [place] [phone] 10/20/2024 1:45 PM TATTOOER Appointment [address] [phone] Karla Goldberg MD [address] [place] [phone] 10/23/2024 1:45 PM TATTOOER Appointment [address] [phone] Karla Goldberg MD [address] [place] [phone] 10/24/2024 11:30 AM TATTOOER Office Visit [facility] [address] [place] [phone] Chris Flores MD [address] [place] [phone] 10/24/2024 1:45 PM TATTOOER Appointment [address] [phone] Karla Goldberg MD [address] [place] [phone] 10/25/2024 1:45 PM TATTOOER Appointment [address] [phone] Karla Goldberg MD [address] [place] [phone] 10/26/2024 1:45 PM TATTOOER Appointment [address] [phone] Karla Goldberg MD [address] [place] [phone] 10/27/2024 1:45 PM TATTOOER Appointment [address] [phone] Karla Goldberg MD [address] [place] [phone] 10/30/2024 1:45 PM CDT Appointment [address] [phone] Karla Goldberg MD [address] [place] [phone] 10/31/2024 1:45 PM CDT Appointment [address] [phone] Karla Goldberg MD [address] [place] [phone] 11/01/2024 1:45 PM CDT Appointment [address] [phone] Karla Goldberg MD [address] [place] [phone] 11/02/2024 1:45 PM CDT Appointment [address] [phone] Karla Goldberg MD [address] [place] [phone] 11/03/2024 1:45 PM CDT Appointment [address] [phone] Karla Goldberg MD [address] [place] [phone] 11/06/2024 1:45 PM CDT Appointment [address] [phone] Karla Goldberg MD [address] [place] [phone] 11/07/2024 1:45 PM CDT Appointment [address] [phone] Karla Goldberg MD [address] [place] [phone] 11/08/2024 1:45 PM CDT Appointment [address] [phone] Karla Goldberg MD [address] [place] [phone] 11/09/2024 1:45 PM CDT Appointment [address] [phone] Karla Goldberg MD [address] [place] [phone] 11/10/2024 1:45 PM CDT Appointment [address] [phone] Karla Goldberg MD [address] [place] [phone] 11/13/2024 1:45 PM CDT Appointment [address] [phone] Karla Goldberg MD [address] [place] [phone] 11/14/2024 1:45 PM CDT Appointment [address] [phone] Karla Goldberg MD [address] [place] [phone] 11/15/2024 12:45 PM CDT Appointment [address] [phone] Karla Goldberg MD [address] [place] [phone] 11/16/2024 12:45 PM CDT Appointment [address] [phone] Karla Goldberg MD [address] [place] [phone] 11/17/2024 1:45 PM CDT Appointment [address] [phone] Karla Goldberg MD [address] [place] [phone] 11/20/2024 1:45 PM CDT Appointment [address] [phone] Karla Goldberg MD [address] [place] [phone] 11/21/2024 1:45 PM CDT Appointment [address] [phone] Karla Goldberg MD [address] [place] [phone] 11/22/2024 1:45 PM CDT Appointment [address] [phone] Karla Goldberg MD [address] [place] [phone] 11/23/2024 1:45 PM CDT Appointment [address] [place] [phone] Karla Goldberg MD [address] [place] [phone] 11/24/2024 1:45 PM CDT Appointment [address] [phone] Karla Goldberg MD [address] [place] [phone] 11/27/2024 1:45 PM CDT Appointment [address] [phone] Karla Goldberg MD [address] [place] [phone] 11/28/2024 1:45 PM CDT Appointment [address] [phone] Karla Goldberg MD [address] [place] [phone] documented as of this encounter Procedures Procedure Name Priority Date/Time Associated Diagnosis Comments TELEMETRY REPORT 09/29/2024 2:56 AM TATTOOER CBC WITH DIFFERENTIAL Routine 09/28/2024 4:17 AM TATTOOER BASIC METABOLIC PANEL Routine 09/28/2024 4:17 AM TATTOOER BASIC METABOLIC PANEL Routine 09/27/2024 9:24 AM TATTOOER CBC WITH DIFFERENTIAL Routine 09/27/2024 5:[address] GUIDED RAD THERAPY FIELD Routine 09/26/2024 3:22 PM TATTOOER CBC WITH DIFFERENTIAL Routine 09/26/2024 4:02 AM TATTOOER BASIC METABOLIC PANEL Routine 09/26/2024 4:02 AM TATTOOER EKG 12-LEAD Stat 09/25/2024 10:14 AM TATTOOER TSH Routine 09/25/2024 2:32 AM TATTOOER PHOSPHORUS Routine 09/25/2024 2:32 AM TATTOOER MAGNESIUM LEVEL Routine 09/25/2024 2:32 AM TATTOOER BASIC METABOLIC PANEL Routine 09/25/2024 2:32 AM TATTOOER CBC WITH DIFFERENTIAL Routine 09/25/2024 2:31 AM TATTOOER EKG 12-LEAD Routine 09/24/2024 8:35 AM TATTOOER BASIC METABOLIC PANEL Routine 09/23/2024 5:53 AM TATTOOER BASIC METABOLIC PANEL Routine 09/22/2024 4:33 AM TATTOOER BASIC METABOLIC PANEL Routine 09/21/2024 4:59 AM TATTOOER CBC WITH DIFFERENTIAL Routine 09/20/2024 12:54 AM TATTOOER BASIC METABOLIC PANEL Routine 09/20/2024 12:54 AM TATTOOER CBC WITH DIFFERENTIAL Routine 09/19/2024 3:55 AM TATTOOER BASIC METABOLIC PANEL Routine 09/19/2024 3:55 AM TATTOOER ECHO COMPLETE Routine 09/18/2024 11:15 AM TATTOOER OT EVAL AND TREAT Pending Discharge 09/18/2024 8:00 AM TATTOOER PT EVAL AND TREAT Pending Discharge 09/18/2024 8:00 AM TATTOOER CBC WITHOUT DIFFERENTIAL Routine 09/18/2024 3:22 AM TATTOOER HOME O2 EVAL (DESATURATION SCREEN) Pending Discharge 09/18/2024 12:16 AM TATTOOER POC GLUCOSE Routine 09/17/2024 1:49 PM TATTOOER TEETH MULTIPLE EXTRACTION 09/17/2024 11:20 AM TATTOOER N/A CBC WITHOUT DIFFERENTIAL Routine 09/17/2024 4:00 AM TATTOOER RENAL FUNCTION PANEL Routine 09/17/2024 4:00 AM TATTOOER RT ASSESS AND TREAT Routine 09/16/2024 4 :21 PM TATTOOER EKG 12-LEAD Routine 09/16/2024 7:32 AM TATTOOER CBC WITHOUT DIFFERENTIAL Routine 09/16/2024 5:28 AM TATTOOER HEPATIC FUNCTION PANEL Routine 09/16/2024 4:25 AM TATTOOER BASIC METABOLIC PANEL Routine 09/16/2024 4:25 AM TATTOOER DRUG SCREEN, URINE Routine 09/15/2024 10 :41 PM TATTOOER XR VIDEO SWALLOW W SPEECH Routine 09/15/2024 2:43 PM TATTOOER CBC WITHOUT DIFFERENTIAL Routine 09/15/2024 3:48 AM TATTOOER PHOSPHORUS Routine 09/15/2024 3:48 AM TATTOOER MAGNESIUM LEVEL Routine 09/15/2024 3:48 AM TATTOOER BASIC METABOLIC PANEL Routine 09/15/2024 3:[address] SOFT TISSUE NECK W CONTRAST Routine 09/14/2024 5:[address] CHEST ABDOMEN PELVIS W CONT Routine 09/14/2024 5:03 PM TATTOOER PILE DRIVER ENGINEER EVALUATION Routine 09/14/2024 2:38 PM TATTOOER PNEUMONIA PATHOGEN PCR PANEL Routine 09/14/2024 11:29 AM TATTOOER SPUTUM CULTURE WITH GRAM STAIN Routine 09/14/2024 11:29 AM TATTOOER CBC WITHOUT DIFFERENTIAL Routine 09/14/2024 7:11 AM TATTOOER VANCOMYCIN LEVEL RANDOM Routine 09/14/2024 7:11 AM TATTOOER BASIC METABOLIC PANEL Routine 09/14/2024 7:11 AM TATTOOER SPUTUM CULTURE WITH GRAM STAIN Routine 09/14/2024 6:29 AM TATTOOER TROPONIN 6 HR, 5TH GEN Timed Study 09/14/2024 12:04 AM TATTOOER LACTIC ACID Stat 09/14/2024 12:04 AM TATTOOER POC GLUCOSE Routine 09/13/2024 9:40 PM TATTOOER RESPIRATORY PATHOGEN PCR PANEL Routine 09/13/2024 9:32 PM TATTOOER TROPONIN 2 HR, 5TH GEN Timed Study 09/13/2024 7:43 PM TATTOOER RESPIRATORY THERAPY COMMUNICATION Stat 09/13/2024 7:18 PM TATTOOER EXTRA TUBE (URINE CLEMENTS) Stat 09/13/2024 5:56 PM TATTOOER URINALYSIS W/REFLEX MICROSCOPIC Stat 09/13/2024 5:56 PM TATTOOER EKG 12-LEAD Stat 09/13/2024 5:51 PM TATTOOER XR CHEST PA OR AP 1 VW Stat 09/13/2024 5:12 PM TATTOOER TROPONIN BASELINE, 5TH GEN Stat 09/13/2024 4:48 PM TATTOOER BLOOD CULTURE Stat 09/13/2024 4:48 PM TATTOOER BLOOD CULTURE Stat 09/13/2024 4:48 PM TATTOOER LACTIC ACID Stat 09/13/2024 4:48 PM TATTOOER CBC WITH DIFFERENTIAL Stat 09/13/2024 4:48 PM TATTOOER BLOOD CULTURE Stat 09/13/2024 4:48 PM TATTOOER BLOOD CULTURE Stat 09/13/2024 4:48 PM TATTOOER COMPREHENSIVE METABOLIC PANEL Stat 09/13/2024 4:48 PM TATTOOER RT ASSESS AND TREAT Stat 09/13/2024 4 :43 PM TATTOOER CRITICAL CARE Routine 09/13/2024 4:22 PM TATTOOER documented in this encounter Results * TELEMETRY REPORT (09/29/2024 2:56 AM TATTOOER) us Provider Scanning ECG ORDERABLES Final Result * (ABNORMAL) BASIC METABOLIC PANEL (09/28/2024 4:17 AM TATTOOER) SODIUM 140 136 - 145 mmol/L 09/28/2024 6:04 AM [facility] POTASSIUM 4.0 3.5 - 5.1 mmol/L 09/28/2024 6:04 AM [facility] CHLORIDE 105 98 - 107 mmol/L 09/28/2024 6:04 AM [facility] CO2 25 22 - 29 mmol/L 09/28/2024 6:04 AM [facility] CALCIUM 8.8 8.6 - 10.0 mg/dL 09/28/2024 6:04 AM [facility] BUN 31(H) 6 - 20 mg/dL 09/28/2024 6:04 AM [facility] CREATININE 1.42(H) 0.51 - 0.95 mg/dL 09/28/2024 6:04 AM [facility] GLUCOSE 112(H) 74 - 99 mg/dL 09/28/2024 6:04 AM [facility] GFR 45(L) >=60 mL/min/1. 73 sq meter 09/28/2024 6:04 AM [facility] Comment:eGFR calculated with 2020 CKD-EPI equation. Vegetarian diet, extremely high or low muscle mass, and may affect results. Cystatin C with Glomerular Filtration Rate is a suitable alternative for these patients. ANION GAP 10 9 - 20 mmol/L 09/28/2024 6:04 AM [facility] Blood Venipuncture / Unknown 09/28/2024 4:17 AM TATTOOER 09/28/2024 5:29 AM TATTOOER us Arlyn Kate MD CHEMISTRY ORDERABLES Final Res ult [facility] # [id number] [address] [place] [id number] * (ABNORMAL) CBC WITH DIFFERENTIAL (09/28/2024 4:17 AM TATTOOER) WBC 6.0 4.8 - 10.8 K/uL 09/28/2024 5:54 AM [facility] RBC 3.61(L) 4.20 - 5.40 M/uL 09/28/2024 5:54 AM [facility] HEMOGLOBIN 10.9(L) 12.0 - 16.0 g/dL 09/28/2024 5:54 AM [facility] HEMATOCRIT 33.9(L) 36.0 - 46.0 % 09/28/2024 5:54 AM [facility] MCV 93.9 84.0 - 103.0 fL 09/28/2024 5:54 AM [facility] MCH 30.2 27.0 - 34.0 pg 09/28/2024 5:54 AM [facility] MCHC 32.2 30.0 - 35.0 g/dL 09/28/2024 5:54 AM [facility] [place] RDW 13.3 11.0 - 14.5 % 09/28/2024 5:54 AM [facility] RDW-STDEV 45.7 37.0 - 54.0 fL 09/28/2024 5:54 AM [facility] PLATELETS 207 140 - 440 K/uL 09/28/2024 5:54 AM [facility] MPV 10.5 8.9 - 12.8 fL 09/28/2024 5:54 AM [facility] NEUTROPHILS 54 42 - 75 % 09/28/2024 5:54 AM [facility] LYMPHOCYTES 33 24 - 44 % 09/28/2024 5:54 AM [facility] MONOCYTES 11(H) 2 - 10 % 09/28/2024 5:54 AM [facility] EOSINOPHILS 2 0 - 7 % 09/28/2024 5:54 AM [facility] BASOPHILS 0 0 - 1 % 09/28/2024 5:54 AM [facility] IMMATURE GRANULOCYTES 0 0 - 2 % 09/28/2024 5:54 AM [facility] NEUTROPHIL ABSOLUTE 3.27 2.00 - 8.00 K/uL 09/28/2024 5:54 AM [facility] LYMPHOCYTE ABSOLUTE 1.97 1.20 - 4.00 K/uL 09/28/2024 5:54 AM [facility] MONOCYTE ABSOLUTE 0.65(H) 0.10 - 0.60 K/uL 09/28/2024 5:54 AM [facility] EOSINOPHIL ABSOLUTE 0.10 0.00 - 0.70 K/uL 09/28/2024 5:54 AM [facility] BASOPHILS ABSOLUTE 0.02 0.00 - 0.20 K/uL 09/28/2024 5:54 AM [facility] IMMATURE GRANULOCYTES ABSOLUTE 0.02 0.00 - 0.10 K/uL 09/28/2024 5:54 AM [facility] Blood Venipuncture / Unknown 09/28/2024 4:17 AM TATTOOER 09/28/2024 5:30 AM TATTOOER us Arlyn Kate MD HEMATOLOGY ORDERABLES Final Re sult [facility] CLIA # [id number] [address] [address] [place] [address] * (ABNORMAL) BASIC METABOLIC PANEL (09/27/2024 9:24 AM TATTOOER) Pathologist [facility] SODIUM 140 136 - 145 mmol/L 09/27/2024 10:18 AM [facility] POTASSIUM 3.9 3.5 - 5.1 mmol/L 09/27/2024 10:18 AM [facility] CHLORIDE 104 98 - 107 mmol/L 09/27/2024 10:18 AM [facility] CO2 26 22 - 29 mmol/L 09/27/2024 10:18 AM [facility] CALCIUM 9.5 8.6 - 10.0 mg/dL 09/27/2024 10:18 AM [facility] BUN 31(H) 6 - 20 mg/dL 09/27/2024 10:18 AM [facility] CREATININE 1.37(H) 0.51 - 0.95 mg/dL 09/27/2024 10:18 AM [facility] GLUCOSE 156(H) 74 - 99 mg/dL 09/27/2024 10:18 AM [facility] GFR 47(L) >=60 mL/min/1. 73 sq meter 09/27/2024 10:18 AM [facility] Comment:eGFR calculated with 2020 CKD-EPI equation. Vegetarian diet, extremely high or low muscle mass, and may affect results. Cystatin C with Glomerular Filtration Rate is a suitable alternative for these patients. ANION GAP 10 9 - 20 mmol/L 09/27/2024 10:18 AM [facility] Blood Venipuncture / Unknown 09/27/2024 9:24 AM TATTOOER 09/27/2024 9:44 AM TATTOOER us Arlyn Kate MD CHEMISTRY ORDERABLES Final Res ult [facility] CLIA # [id number] [address] [address] [place] [address] * (ABNORMAL) CBC WITH DIFFERENTIAL (09/27/2024 5:53 AM TATTOOER) [facility] WBC 6.8 4.8 - 10.8 K/uL 09/27/2024 6:15 AM [facility] RBC 4.02(L) 4.20 - 5.40 M/uL 09/27/2024 6:15 AM [facility] HEMOGLOBIN 12.1 12.0 - 16.0 g/dL 09/27/2024 6:15 AM [facility] HEMATOCRIT 35.9(L) 36.0 - 46.0 % 09/27/2024 6:15 AM [facility] MCV 89.3 84.0 - 103.0 fL 09/27/2024 6:15 AM [facility] MCH 30.1 27.0 - 34.0 pg 09/27/2024 6:15 AM [facility] MCHC 33.7 30.0 - 35.0 g/dL 09/27/2024 6:15 AM [facility] RDW 13.4 11.0 - 14.5 % 09/27/2024 6:15 AM [facility] RDW-STDEV 44.2 37.0 - 54.0 fL 09/27/2024 6:15 AM [facility] PLATELETS 219 140 - 440 K/uL 09/27/2024 6:15 AM [facility] MPV 9.8 8.9 - 12.8 fL 09/27/2024 6:15 AM [facility] NEUTROPHILS 55 42 - 75 % 09/27/2024 6:15 AM [facility] LYMPHOCYTES 33 24 - 44 % 09/27/2024 6:15 AM [facility] MONOCYTES 10 2 - 10 % 09/27/2024 6:15 AM [facility] EOSINOPHILS 2 0 - 7 % 09/27/2024 6:15 AM [facility] BASOPHILS 0 0 - 1 % 09/27/2024 6:15 AM [facility] IMMATURE GRANULOCYTES 0 0 - 2 % 09/27/2024 6:15 AM [facility] NEUTROPHIL ABSOLUTE 3.69 2.00 - 8.00 K/uL 09/27/2024 6:15 AM [facility] LYMPHOCYTE ABSOLUTE 2.25 1.20 - 4.00 K/uL 09/27/2024 6:15 AM [facility] MONOCYTE ABSOLUTE 0.65(H) 0.10 - 0.60 K/uL 09/27/2024 6:15 AM [facility] EOSINOPHIL ABSOLUTE 0.10 0.00 - 0.70 K/uL 09/27/2024 6:15 AM [facility] BASOPHILS ABSOLUTE 0.03 0.00 - 0.20 K/uL 09/27/2024 6:15 AM [facility] IMMATURE GRANULOCYTES ABSOLUTE 0.03 0.00 - 0.10 K/uL 09/27/2024 6:15 AM [facility] Blood Venipuncture / Unknown 09/27/2024 5:53 AM TATTOOER 09/27/2024 6:08 AM TATTOOER us Arlyn Kate MD HEMATOLOGY ORDERABLES Final Re sult [facility] CLIA # [id number] [address] [place] [address] [place] [address] * CT GUIDED RAD THERAPY FIELD (09/26/2024 3:22 PM TATTOOER) Narrative 09/26/2024 3:22 PM TATTOOER Order information only. ??Exam was auto-finalized. ?? us Karla Goldberg MD CT ORDERABLES Final Resul t * (ABNORMAL) BASIC METABOLIC PANEL (09/26/2024 4:02 AM TATTOOER) SODIUM 138 136 - 145 mmol/L 09/26/2024 4:46 AM [facility] POTASSIUM 4.1 3.5 - 5.1 mmol/L 09/26/2024 4:46 AM [facility] CHLORIDE 104 98 - 107 mmol/L 09/26/2024 4:46 AM [facility] CO2 24 22 - 29 mmol/L 09/26/2024 4:46 AM [facility] CALCIUM 8.9 8.6 - 10.0 mg/dL 09/26/2024 4:46 AM [facility] BUN 34(H) 6 - 20 mg/dL 09/26/2024 4:46 AM [facility] CREATININE 1.56(H) 0.51 - 0.95 mg/dL 09/26/2024 4:46 AM [facility] GLUCOSE 122(H) 74 - 99 mg/dL 09/26/2024 4:46 AM [facility] GFR 40(L) >=60 mL/min/1. 73 sq meter 09/26/2024 4:46 AM [facility] Comment:eGFR calculated with 2020 CKD-EPI equation. Vegetarian diet, extremely high or low muscle mass, and may affect results. Cystatin C with Glomerular Filtration Rate is a suitable alternative for these patients. ANION GAP 10 9 - 20 mmol/L 09/26/2024 4:46 AM [facility] Blood Venipuncture / Unknown 09/26/2024 4:02 AM TATTOOER 09/26/2024 4:07 AM TATTOOER us Arlyn Kate MD CHEMISTRY ORDERABLES Final Res ult [facility] CLIA # [id number] [address] [place] [address] [place] [address] * (ABNORMAL) CBC WITH DIFFERENTIAL (09/26/2024 4:02 AM [facility]) [facility] WBC 7.1 4.8 - 10.8 K/uL 09/26/2024 4:26 AM [facility] RBC 3.88(L) 4.20 - 5.40 M/uL 09/26/2024 4:26 AM [facility] HEMOGLOBIN 11.8(L) 12.0 - 16.0 g/dL 09/26/2024 4:26 AM [facility] HEMATOCRIT 35.1(L) 36.0 - 46.0 % 09/26/2024 4:26 AM [facility] MCV 90.5 84.0 - 103.0 fL 09/26/2024 4:26 AM [facility] MCH 30.4 27.0 - 34.0 pg 09/26/2024 4:26 AM [facility] MCHC 33.6 30.0 - 35.0 g/dL 09/26/2024 4:26 AM [facility] RDW 13.5 11.0 - 14.5 % 09/26/2024 4:26 AM [facility] RDW-STDEV 43.8 37.0 - 54.0 fL 09/26/2024 4:26 AM [facility] PLATELETS 227 140 - 440 K/uL 09/26/2024 4:26 AM [facility] MPV 9.6 8.9 - 12.8 fL 09/26/2024 4:26 AM [facility] NEUTROPHILS 56 42 - 75 % 09/26/2024 4:26 AM [facility] LYMPHOCYTES 30 24 - 44 % 09/26/2024 4:26 AM [facility] MONOCYTES 12(H) 2 - 10 % 09/26/2024 4:26 AM [facility] EOSINOPHILS 1 0 - 7 % 09/26/2024 4:26 AM [facility] BASOPHILS 0 0 - 1 % 09/26/2024 4:26 AM [facility] IMMATURE GRANULOCYTES 1 0 - 2 % 09/26/2024 4:26 AM [facility] NEUTROPHIL ABSOLUTE 4.00 2.00 - 8.00 K/uL 09/26/2024 4:26 AM [facility] LYMPHOCYTE ABSOLUTE 2.11 1.20 - 4.00 K/uL 09/26/2024 4:26 AM [facility] MONOCYTE ABSOLUTE 0.82(H) 0.10 - 0.60 K/uL 09/26/2024 4:26 AM [facility] EOSINOPHIL ABSOLUTE 0.10 0.00 - 0.70 K/uL 09/26/2024 4:26 AM [facility] BASOPHILS ABSOLUTE 0.03 0.00 - 0.20 K/uL 09/26/2024 4:26 AM [facility] IMMATURE GRANULOCYTES ABSOLUTE 0.04 0.00 - 0.10 K/uL 09/26/2024 4:26 AM [facility] Blood Venipuncture / Unknown 09/26/2024 4:02 AM TATTOOER 09/26/2024 4:07 AM TATTOOER us Arlyn Kate MD HEMATOLOGY ORDERABLES Final Re sult [facility] CLIA # [id number] [address] [address] [place] [address] * EKG 12-LEAD (09/25/2024 10:14 AM TATTOOER) 09/25/2024 10:1 4 AM TATTOOER Narrative INTERFACE SYSTEM - 09/25/2024 11:23 PM TATTOOER ?[facility] ? [address] [place] [address] ? Test Date: ?2024-09-25 Pat Name: ? VENTURA CATARINA ?Department: ?? 12 ?Room: ? 3155 01 Gender: ? Female ? 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 [id number] : ?1975 ? Requested By: ?? Order Number: [id number] ? Reading MD: ?? Indrajeet Mahata ? Measurements Intervals ?[place] ? Rate: ? 109 ?P: ?25 ND: ? 132 ?QRS: ?-3 QRSD: ? 84 ? T: ?102 QT: ? 362 ? QTc: ?487 ? Interpretive Statements Sinus tachycardia ST & T wave abnormality, consider lateral ischemia Abnormal ECG baseline artefact Electronically Signed On 09-25-2024 23:23:45 TATTOOER by Maurilio Zhang Procedure Note Maurilio Zhang MD - 09/25/[address] [address] Test Date: 2024-09-25 Pat Name: VENTURA ELMORE Department: 12 Room: [address] [place] [address] Gender: Female Operations Accountant: [id number] : 1975 Requested By: Order Number: [id number] Reading MD: Maurilio Zhang Measurements Intervals [place] Rate: 109 P: 25 ND: 132 QRS: -3 QRSD: 84 T: 102 QT: 362 QTc: 487 Interpretive Statements Sinus tachycardia ST & T wave abnormality, consider lateral ischemia Abnormal ECG baseline artefact Electronically Signed On 09-25-2024 23:23:45 TATTOOER by Maurilio Zhang us Arlyn Kate MD ECG ORDERABLES Final Result Performing Organization Address [facility] de Phone Number INTERFACE SYSTEM Refer to clinic/hospital department * PHOSPHORUS (09/25/2024 2:32 AM TATTOOER) PHOSPHORUS 4.2 2.5 - 4.5 mg/dL 09/25/2024 3:28 AM TATTOOER [facility] Blood Venipuncture / Unknown 09/25/2024 2:32 AM TATTOOER 09/25/2024 2:35 AM TATTOOER us Arlyn Kate MD CHEMISTRY ORDERABLES Final Res ult Performing Organization Address [facility] de Phone Number [facility] CLIA # [id number] [address] [id number] * MAGNESIUM LEVEL (09/25/2024 2:32 AM TATTOOER) [facility] MAGNESIUM 2.0 1.6 - 2.6 mg/dL 09/25/2024 3:28 AM TATTOOER [facility] Blood Venipuncture / Unknown 09/25/2024 2:32 AM TATTOOER 09/25/2024 2:35 AM TATTOOER us Arlyn Kate MD CHEMISTRY ORDERABLES Final Res ult Performing Organization Address City/[facility]/ZIP Co de Phone Number [facility] CLIA # [id number] [address] [id number] * TSH (09/25/2024 2:32 AM TATTOOER) [facility] TSH 1.29 0.27 - 4.20 uIU/mL 09/25/2024 3:28 AM [facility] Blood Venipuncture / Unknown 09/25/2024 2:32 AM TATTOOER 09/25/2024 2:35 AM TATTOOER us Arlyn Kate MD CHEMISTRY ORDERABLES Final Res ult [facility] CLIA # [id number] [address] [id number] * (ABNORMAL) BASIC METABOLIC PANEL (09/25/2024 2:32 AM TATTOOER) [facility] SODIUM 135(L) 136 - 145 mmol/L 09/25/2024 3:28 AM [facility] POTASSIUM 4.3 3.5 - 5.1 mmol/L 09/25/2024 3:28 AM [facility] CHLORIDE 101 98 - 107 mmol/L 09/25/2024 3:28 AM [facility] CO2 21(L) 22 - 29 mmol/L 09/25/2024 3:28 AM [facility] CALCIUM 9.3 8.6 - 10.0 mg/dL 09/25/2024 3:28 AM [facility] BUN 31(H) 6 - 20 mg/dL 09/25/2024 3:28 AM [facility] CREATININE 1.36(H) 0.51 - 0.95 mg/dL 09/25/2024 3:28 AM [facility] GLUCOSE 97 74 - 99 mg/dL 09/25/2024 3:28 AM [facility] GFR 47(L) >=60 mL/min/1. 73 sq meter 09/25/2024 3:28 AM [facility] Comment:eGFR calculated with 2020 CKD-EPI equation. Vegetarian diet, extremely high or low muscle mass, and may affect results. Cystatin C with Glomerular Filtration Rate is a suitable alternative for these patients. ANION GAP 13 9 - 20 mmol/L 09/25/2024 3:28 AM [facility] Blood Venipuncture / Unknown 09/25/2024 2:32 AM TATTOOER 09/25/2024 2:35 AM [facility] us Arlyn Kate MD CHEMISTRY ORDERABLES Final Res ult [facility] CLIA # [id number] [address] [place] [id number] * (ABNORMAL) CBC WITH DIFFERENTIAL (09/25/2024 2:31 AM [facility]) [facility] WBC 6.5 4.8 - 10.8 K/uL 09/25/2024 2:38 AM [facility] RBC 4.03(L) 4.20 - 5.40 M/uL 09/25/2024 2:38 AM [facility] HEMOGLOBIN 12.1 12.0 - 16.0 g/dL 09/25/2024 2:38 AM [facility] HEMATOCRIT 38.5 36.0 - 46.0 % 09/25/2024 2:38 AM [facility] MCV 95.5 84.0 - 103.0 fL 09/25/2024 2:38 AM [facility] MCH 30.0 27.0 - 34.0 pg 09/25/2024 2:38 AM [facility] MCHC 31.4 30.0 - 35.0 g/dL 09/25/2024 2:38 AM [facility] RDW 13.6 11.0 - 14.5 % 09/25/2024 2:38 AM [facility] RDW-STDEV 47.2 37.0 - 54.0 fL 09/25/2024 2:38 AM [facility] PLATELETS 228 140 - 440 K/uL 09/25/2024 2:38 AM [facility] MPV 9.7 8.9 - 12.8 fL 09/25/2024 2:38 AM [facility] NEUTROPHILS 50 42 - 75 % 09/25/2024 2:38 AM [facility] LYMPHOCYTES 35 24 - 44 % 09/25/2024 2:38 AM [facility] MONOCYTES 12(H) 2 - 10 % 09/25/2024 2:38 AM [facility] EOSINOPHILS 1 0 - 7 % 09/25/2024 2:38 AM [facility] BASOPHILS 1 0 - 1 % 09/25/2024 2:38 AM [facility] IMMATURE GRANULOCYTES 1 0 - 2 % 09/25/2024 2:38 AM [facility] NEUTROPHIL ABSOLUTE 3.29 2.00 - 8.00 K/uL 09/25/2024 2:38 AM [facility] LYMPHOCYTE ABSOLUTE 2.27 1.20 - 4.00 K/uL 09/25/2024 2:38 AM [facility] MONOCYTE ABSOLUTE 0.80(H) 0.10 - 0.60 K/uL 09/25/2024 2:38 AM [facility] EOSINOPHIL ABSOLUTE 0.09 0.00 - 0.70 K/uL 09/25/2024 2:38 AM [facility] BASOPHILS ABSOLUTE 0.04 0.00 - 0.20 K/uL 09/25/2024 2:38 AM [facility] IMMATURE GRANULOCYTES ABSOLUTE 0.04 0.00 - 0.10 K/uL 09/25/2024 2:38 AM [facility] Blood Venipuncture / Unknown 09/25/2024 2:31 AM TATTOOER 09/25/2024 2:34 AM TATTOOER us Arlyn Kate MD HEMATOLOGY ORDERABLES Final Re sult [facility] CLIA # [id number] [address] [facility] [place] [address] * EKG 12-LEAD (09/24/2024 8:35 AM TATTOOER) 09/24/2024 8:35 AM TATTOOER Narrative INTERFACE SYSTEM - 09/24/2024 1:07 PM TATTOOER ?[facility] ? [address] [place] [address] ? Test Date: ?2024-09-24 Pat Name: ? VENTURA ELMORE ?Department: ?? 12 ?Room: ? 3155 01 Gender: ? Female ? 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 [id number] : ?1975 ? Requested By: ?? Order Number: [id number] ? Reading MD: ?? Kasandra Jeffrey ? Measurements Intervals ?[place] ? Rate: ? 57 ? P: ?75 ND: ? 140 ?QRS: ?-15 QRSD: ? 88 ? T: ?73 QT: ? 490 ? QTc: ?476 ? Interpretive Statements Sinus bradycardia ST & T wave abnormality, consider lateral ischemia Abnormal ECG Electronically Signed On 09-24-2024 13:07:53 TATTOOER by Kasandra Jeffrey Procedure Note Provider, 09/24/2024 [facility] [address] [place] [address] Test Date: 2024-09-24 Pat Name: VENTURA ELMORE Department: 12 Room: [address] [place] [address] Gender: Female Operations Accountant: [id number] : 1975 Requested By: Order Number: [id number] Reading MD: Kasandra Jeffrey Measurements Intervals [place] Rate: 57 P: 75 ND: 140 QRS: -15 QRSD: 88 T: 73 QT: 490 QTc: 476 Interpretive Statements Sinus bradycardia ST & T wave abnormality, consider lateral ischemia Abnormal ECG Electronically Signed On 09-24-2024 13:07:53 TATTOOER by Kasandra Jeffrey us Arlyn Kate MD ECG ORDERABLES Final Result INTERFACE SYSTEM Refer to clinic/hospital department * (ABNORMAL) BASIC METABOLIC PANEL (09/23/2024 5:53 AM TATTOOER) SODIUM 139 136 - 145 mmol/L 09/23/2024 6:42 AM [facility] POTASSIUM 4.5 3.5 - 5.1 mmol/L 09/23/2024 6:42 AM [facility] CHLORIDE 103 98 - 107 mmol/L 09/23/2024 6:42 AM [facility] CO2 28 22 - 29 mmol/L 09/23/2024 6:42 AM [facility] CALCIUM 9.6 8.6 - 10.0 mg/dL 09/23/2024 6:42 AM [facility] BUN 27(H) 6 - 20 mg/dL 09/23/2024 6:42 AM [facility] CREATININE 1.24(H) 0.51 - 0.95 mg/dL 09/23/2024 6:42 AM [facility] GLUCOSE 109(H) 74 - 99 mg/dL 09/23/2024 6:42 AM [facility] GFR 53(L) >=60 mL/min/1. 73 sq meter 09/23/2024 6:42 AM [facility] Comment:eGFR calculated with 2020 CKD-EPI equation. Vegetarian diet, extremely high or low muscle mass, and may affect results. Cystatin C with Glomerular Filtration Rate is a suitable alternative for these patients. ANION GAP 8(L) 9 - 20 mmol/L 09/23/2024 6:42 AM [facility] Blood Venipuncture / Unknown 09/23/2024 5:53 AM TATTOOER 09/23/2024 6:00 AM TATTOOER us Arlyn Kate MD CHEMISTRY ORDERABLES Final Res ult [facility] CLIA # [id number] [address] [place] [address] * (ABNORMAL) BASIC METABOLIC PANEL (09/22/2024 4:33 AM TATTOOER) SODIUM 139 136 - 145 mmol/L 09/22/2024 5:28 AM [facility] POTASSIUM 4.5 3.5 - 5.1 mmol/L 09/22/2024 5:28 AM [facility] CHLORIDE 102 98 - 107 mmol/L 09/22/2024 5:28 AM [facility] CO2 29 22 - 29 mmol/L 09/22/2024 5:28 AM [facility] CALCIUM 9.4 8.6 - 10.0 mg/dL 09/22/2024 5:28 AM [facility] BUN 28(H) 6 - 20 mg/dL 09/22/2024 5:28 AM [facility] CREATININE 1.16(H) 0.51 - 0.95 mg/dL 09/22/2024 5:28 AM [facility] GLUCOSE 102(H) 74 - 99 mg/dL 09/22/2024 5:28 AM [facility] GFR 57(L) >=60 mL/min/1. 73 sq meter 09/22/2024 5:28 AM [facility] [employer] Comment:eGFR calculated with 2020 CKD-EPI equation. Vegetarian diet, extremely high or low muscle mass, and may affect results. Cystatin C with Glomerular Filtration Rate is a suitable alternative for these patients. ANION GAP 8(L) 9 - 20 mmol/L 09/22/2024 5:28 AM [facility] Blood Venipuncture / Unknown 09/22/2024 4:33 AM TATTOOER 09/22/2024 4:57 AM TATTOOER us Arlyn Kate MD CHEMISTRY ORDERABLES Final Res ult [facility] CLIA # [id number] [address] [place] [address] * (ABNORMAL) BASIC METABOLIC PANEL (09/21/2024 4:59 AM TATTOOER) SODIUM 138 136 - 145 mmol/L 09/21/2024 5:42 AM [facility] POTASSIUM 4.7 3.5 - 5.1 mmol/L 09/21/2024 5:42 AM [facility] CHLORIDE 102 98 - 107 mmol/L 09/21/2024 5:42 AM [facility] CO2 29 22 - 29 mmol/L 09/21/2024 5:42 AM [facility] CALCIUM 9.2 8.6 - 10.0 mg/dL 09/21/2024 5:42 AM [facility] BUN 26(H) 6 - 20 mg/dL 09/21/2024 5:42 AM [facility] CREATININE 1.16(H) 0.51 - 0.95 mg/dL 09/21/2024 5:42 AM [facility] GLUCOSE 99 74 - 99 mg/dL 09/21/2024 5:42 AM [facility] GFR 57(L) >=60 mL/min/1. 73 sq meter 09/21/2024 5:42 AM [facility] Comment:eGFR calculated with 2020 CKD-EPI equation. Vegetarian diet, extremely high or low muscle mass, and may affect results. Cystatin C with Glomerular Filtration Rate is a suitable alternative for these patients. ANION GAP 7(L) 9 - 20 mmol/L 09/21/2024 5:42 AM [facility] Blood Venipuncture / Unknown 09/21/2024 4:59 AM TATTOOER 09/21/2024 5:13 AM TATTOOER us Arlyn Kate MD CHEMISTRY ORDERABLES Final Res ult [facility] CLIA # [id number] [address] [place] [address] * (ABNORMAL) BASIC METABOLIC PANEL (09/20/2024 12:54 AM TATTOOER) SODIUM 137 136 - 145 mmol/L 09/20/2024 2:02 AM [facility] POTASSIUM 4.6 3.5 - 5.1 mmol/L 09/20/2024 2:02 AM [facility] CHLORIDE 103 98 - 107 mmol/L 09/20/2024 2:02 AM [facility] CO2 28 22 - 29 mmol/L 09/20/2024 2:02 AM [facility] CALCIUM 8.8 8.6 - 10.0 mg/dL 09/20/2024 2:02 AM [facility] BUN 28(H) 6 - 20 mg/dL 09/20/2024 2:02 AM [facility] CREATININE 1.20(H) 0.51 - 0.95 mg/dL 09/20/2024 2:02 AM [facility] GLUCOSE 84 74 - 99 mg/dL 09/20/2024 2:02 AM [facility] GFR 55(L) >=60 mL/min/1. 73 sq meter 09/20/2024 2:02 AM [facility] Comment:eGFR calculated with 2020 CKD-EPI equation. Vegetarian diet, extremely high or low muscle mass, and may affect results. Cystatin C with Glomerular Filtration Rate is a suitable alternative for these patients. ANION GAP 6(L) 9 - 20 mmol/L 09/20/2024 2:02 AM [facility] Blood Venipuncture / Unknown 09/20/2024 12:54 AM TATTOOER 09/20/2024 1:30 AM TATTOOER us Arlyn Kate MD CHEMISTRY ORDERABLES Final Res ult [facility] CLIA # [id number] [facility] [address] [address] * (ABNORMAL) CBC WITH DIFFERENTIAL (09/20/2024 12:54 AM TATTOOER) WBC 6.0 4.8 - 10.8 K/uL 09/20/2024 1:36 AM [facility] RBC 3.44(L) 4.20 - 5.40 M/uL 09/20/2024 1:36 AM [facility] HEMOGLOBIN 10.4(L) 12.0 - 16.0 g/dL 09/20/2024 1:36 AM [facility] HEMATOCRIT 32.9(L) 36.0 - 46.0 % 09/20/2024 1:36 AM [facility] MCV 95.6 84.0 - 103.0 fL 09/20/2024 1:36 AM [facility] MCH 30.2 27.0 - 34.0 pg 09/20/2024 1:36 AM [facility] MCHC 31.6 30.0 - 35.0 g/dL 09/20/2024 1:36 AM [facility] RDW 13.2 11.0 - 14.5 % 09/20/2024 1:36 AM [facility] RDW-STDEV 45.8 37.0 - 54.0 fL 09/20/2024 1:36 AM [facility] PLATELETS 206 140 - 440 K/uL 09/20/2024 1:36 AM [facility] MPV 9.9 8.9 - 12.8 fL 09/20/2024 1:36 AM [facility] NEUTROPHILS 52 42 - 75 % 09/20/2024 1:36 AM [facility] LYMPHOCYTES 37 24 - 44 % 09/20/2024 1:36 AM [facility] MONOCYTES 9 2 - 10 % 09/20/2024 1:36 AM [facility] EOSINOPHILS 2 0 - 7 % 09/20/2024 1:36 AM [facility] BASOPHILS 1 0 - 1 % 09/20/2024 1:36 AM [facility] IMMATURE GRANULOCYTES 0 0 - 2 % 09/20/2024 1:36 AM [facility] NEUTROPHIL ABSOLUTE 3.08 2.00 - 8.00 K/uL 09/20/2024 1:36 AM [facility] LYMPHOCYTE ABSOLUTE 2.21 1.20 - 4.00 K/uL 09/20/2024 1:36 AM [facility] MONOCYTE ABSOLUTE 0.54 0.10 - 0.60 K/uL 09/20/2024 1:36 AM [facility] EOSINOPHIL ABSOLUTE 0.09 0.00 - 0.70 K/uL 09/20/2024 1:36 AM [facility] BASOPHILS ABSOLUTE 0.03 0.00 - 0.20 K/uL 09/20/2024 1:36 AM [facility] IMMATURE GRANULOCYTES ABSOLUTE 0.01 0.00 - 0.10 K/uL 09/20/2024 1:36 AM [facility] Blood Venipuncture / Unknown 09/20/2024 12:54 AM TATTOOER 09/20/2024 1:30 AM [facility] Arlyn Kate MD HEMATOLOGY ORDERABLES Final Re sult Performing Organization Address City/State/[facility] Co de Phone Number [facility] CLIA # [id number] [address] [place] [address] [place] [address] * (ABNORMAL) BASIC METABOLIC PANEL (09/19/2024 3:55 AM TATTOOER) SODIUM 139 136 - 145 mmol/L 09/19/2024 5:24 AM [facility] POTASSIUM 4.7 3.5 - 5.1 mmol/L 09/19/2024 5:24 AM [facility] CHLORIDE 104 98 - 107 mmol/L 09/19/2024 5:24 AM [facility] CO2 27 22 - 29 mmol/L 09/19/2024 5:24 AM [facility] CALCIUM 8.5(L) 8.6 - 10.0 mg/dL 09/19/2024 5:24 AM [facility] BUN 28(H) 6 - 20 mg/dL 09/19/2024 5:24 AM [facility] CREATININE 1.29(H) 0.51 - 0.95 mg/dL 09/19/2024 5:24 AM [facility] GLUCOSE 95 74 - 99 mg/dL 09/19/2024 5:24 AM [facility] GFR 50(L) >=60 mL/min/1. 73 sq meter 09/19/2024 5:24 AM [facility] Comment:eGFR calculated with 2020 CKD-EPI equation. Vegetarian diet, extremely high or low muscle mass, and may affect results. Cystatin C with Glomerular Filtration Rate is a suitable alternative for these patients. ANION GAP 8(L) 9 - 20 mmol/L 09/19/2024 5:24 AM [facility] Blood Venipuncture / Unknown 09/19/2024 3:55 AM TATTOOER 09/19/2024 4:48 AM TATTOOER Arlyn Kate MD CHEMISTRY ORDERABLES Final Res ult [facility] CLIA # [id number] [address] [address] [place] [address] * (ABNORMAL) CBC WITH DIFFERENTIAL (09/19/2024 3:55 AM TATTOOER) WBC 5.7 4.8 - 10.8 K/uL 09/19/2024 5:08 AM [facility] RBC 3.36(L) 4.20 - 5.40 M/uL 09/19/2024 5:08 AM [facility] HEMOGLOBIN 10.3(L) 12.0 - 16.0 g/dL 09/19/2024 5:08 AM [facility] HEMATOCRIT 33.7(L) 36.0 - 46.0 % 09/19/2024 5:08 AM [facility] MCV 100.3 84.0 - 103.0 fL 09/19/2024 5:08 AM [facility] MCH 30.7 27.0 - 34.0 pg 09/19/2024 5:08 AM [facility] MCHC 30.6 30.0 - 35.0 g/dL 09/19/2024 5:08 AM [facility] RDW 12.9 11.0 - 14.5 % 09/19/2024 5:08 AM [facility] RDW-STDEV 47.4 37.0 - 54.0 fL 09/19/2024 5:08 AM [facility] PLATELETS 184 140 - 440 K/uL 09/19/2024 5:08 AM [facility] MPV 10.3 8.9 - 12.8 fL 09/19/2024 5:08 AM [facility] NEUTROPHILS 57 42 - 75 % 09/19/2024 5:08 AM [facility] [employer] [facility] LYMPHOCYTES 33 24 - 44 % 09/19/2024 5:08 AM [facility] [employer] [facility] MONOCYTES 9 2 - 10 % 09/19/2024 5:08 AM [facility] EOSINOPHILS 1 0 - 7 % 09/19/2024 5:08 AM [facility] BASOPHILS 0 0 - 1 % 09/19/2024 5:08 AM [facility] IMMATURE GRANULOCYTES 0 0 - 2 % 09/19/2024 5:08 AM [facility] NEUTROPHIL ABSOLUTE 3.26 2.00 - 8.00 K/uL 09/19/2024 5:08 AM [facility] LYMPHOCYTE ABSOLUTE 1.86 1.20 - 4.00 K/uL 09/19/2024 5:08 AM [facility] MONOCYTE ABSOLUTE 0.50 0.10 - 0.60 K/uL 09/19/2024 5:08 AM [facility] EOSINOPHIL ABSOLUTE 0.07 0.00 - 0.70 K/uL 09/19/2024 5:08 AM [facility] BASOPHILS ABSOLUTE 0.02 0.00 - 0.20 K/uL 09/19/2024 5:08 AM [facility] IMMATURE GRANULOCYTES ABSOLUTE 0.01 0.00 - 0.10 K/uL 09/19/2024 5:08 AM [facility] Blood Venipuncture / Unknown 09/19/2024 3:55 AM TATTOOER 09/19/2024 4:48 AM [facility] us Arlyn Kate MD HEMATOLOGY ORDERABLES Final Re sult [facility] CLIA # [id number] [address] [address] * ECHO COMPLETE - CONTRAST AND STRAIN IF INDICATED (09/18/2024 11:15 AM TATTOOER) EJECTION FRACTION EF: INTERFACE SYSTEM 09/18/2024 10:1 3 AM TATTOOER Narrative INTERFACE SYSTEM - 09/18/2024 3:03 PM [facility] Cardiovascular Services Echocardiography Laboratory [address] [facility] [place] [address] Transthoracic Echocardiography Patient: ?? Catarina, ? Study ID: ECHO COMPLETE - ? [place] Gender: ?F ? : ? 1975 ??Age: ?49 Room: ?[facility] ? Study ?09/18/2024 ??Pt ?Inpatient ? Date: ?Status: Study ?10:13:58 AM ? CSN #: ? [id number] Time: Ordering:Wilfredo Harmon Superintendent Maintenance Air[employer]: Guerda Bourgeois [facility] Indications and History: ?Abnormal ECG. Summary [...] ??(H) ??channing values outside specified reference range. [facility] Echo Labs are accredited with the Intersocietal Accreditation Commission - Echocardiography. Prepared and Electronically Authenticated Jad Wong Confirmed ? 09/18/2024 15:03 Procedure Note Jad Wong MD - 09/18/2024 [facility] Cardiovascular Services Echocardiography Laboratory [address] [place] [address] Transthoracic Echocardiography Patient: Catarina Study ID: ECHO CAITIE Carson Gender: F : 1975 Age: 49 Room: [facility] Study 09/18/2024 Pt Inpatient Date: Status: Study 10:13:58 AM [facility] #: [id number] Time: Ordering:Wilfredo Harmon Superintendent Maintenance Airports: Guerda Bourgeois [facility] Indications and History: Abnormal ECG. Summary [...] (H) channing values outside specified reference range. [facility] Echo Labs are accredited with the[facility] Healthcare Regional Medical Centersocietal Accreditation Commission - Echocardiography. Prepared and Electronically Authenticated Jad Wong Confirmed 09/18/2024 15:03 [facility] Faustino NELSON ORDERABLES Final Result INTERFACE SYSTEM Refer to clinic/hospital department * (ABNORMAL) CBC WITHOUT DIFFERENTIAL (09/18/2024 3:22 AM TATTOOER) WBC 5.9 4.8 - 10.8 K/uL 09/18/2024 3:42 AM [facility] RBC 3.59(L) 4.20 - 5.40 M/uL 09/18/2024 3:42 AM [facility] HEMOGLOBIN 10.7(L) 12.0 - 16.0 g/dL 09/18/2024 3:42 AM [facility] HEMATOCRIT 34.5(L) 36.0 - 46.0 % 09/18/2024 3:42 AM [facility] MCV 96.1 84.0 - 103.0 fL 09/18/2024 3:42 AM [facility] MCH 29.8 27.0 - 34.0 pg 09/18/2024 3:42 AM [facility] MCHC 31.0 30.0 - 35.0 g/dL 09/18/2024 3:42 AM [facility] PLATELETS 231 140 - 440 K/uL 09/18/2024 3:42 AM [facility] MPV 9.5 8.9 - 12.8 fL 09/18/2024 3:42 AM [facility] RDW 12.4 11.0 - 14.5 % 09/18/2024 3:42 AM [facility] RDW-STDEV 43.5 37.0 - 54.0 fL 09/18/2024 3:42 AM [facility] Blood Venipuncture / Unknown 09/18/2024 3:22 AM TATTOOER 09/18/2024 3:37 AM TATTOOER us Wilfredo Harmon MD HEMATOLOGY ORDERABLES Final Res ult Performing Organization Address City/[facility]/ZIP Co de Phone Number [facility] CLIA # [id number] [address] [address] * POC GLUCOSE (09/17/2024 1:49 PM TATTOOER) [facility] GLUCOSE POC 88 74 - 99 mg/dL 09/17/2024 1:49 PM [facility] SPECIMEN SOURCE, GLUCOSE POC Capillary 09/17/2024 1:49 PM [facility] Blood, whole 09/17/2024 1:49 PM TATTOOER 09/17/2024 2:39 PM TATTOOER Wilfredo Harmon MD POINT OF CARE TESTING Final Res ult Performing Organization Address City/[facility]/ZIP Co de Phone Number [facility] CLIA # [id number] [address] [place] [address] * (ABNORMAL) RENAL FUNCTION PANEL (09/17/2024 4:00 AM [facility]) SODIUM 138 136 - 145 mmol/L 09/17/2024 4:46 AM [facility] POTASSIUM 4.9 3.5 - 5.1 mmol/L 09/17/2024 4:46 AM [facility] CHLORIDE 106 98 - 107 mmol/L 09/17/2024 4:46 AM [facility] CO2 25 22 - 29 mmol/L 09/17/2024 4:46 AM [facility] CALCIUM 9.2 8.6 - 10.0 mg/dL 09/17/2024 4:46 AM [facility] BUN 22(H) 6 - 20 mg/dL 09/17/2024 4:46 AM [facility] CREATININE 1.14(H) 0.51 - 0.95 mg/dL 09/17/2024 4:46 AM [facility] GLUCOSE 83 74 - 99 mg/dL 09/17/2024 4:46 AM [facility] ALBUMIN 3.0(L) 3.5 - 5.2 g/dL 09/17/2024 4:46 AM [facility] PHOSPHORUS 3.6 2.5 - 4.5 mg/dL 09/17/2024 4:46 AM [facility] GFR 58(L) >=60 mL/min/1. 73 sq meter 09/17/2024 4:46 AM [facility] Comment:eGFR calculated with 2020 CKD-EPI equation. Vegetarian diet, extremely high or low muscle mass, and may affect results. Cystatin C with Glomerular Filtration Rate is a suitable alternative for these patients. ANION GAP 7(L) 9 - 20 mmol/L 09/17/2024 4:46 AM [facility] Blood Venipuncture / Unknown 09/17/2024 4:00 AM TATTOOER 09/17/2024 4:12 AM [facility] Wilfredo Harmon MD CHEMISTRY ORDERABLES Final Resu lt [facility] CLIA # [id number] [address] [address] [place] [address] * (ABNORMAL) CBC WITHOUT DIFFERENTIAL (09/17/2024 4:00 AM TATTOOER) Pathologist [facility] WBC 4.1(L) 4.8 - 10.8 K/uL 09/17/2024 4:12 AM [facility] RBC 3.87(L) 4.20 - 5.40 M/uL 09/17/2024 4:12 AM [facility] HEMOGLOBIN 11.8(L) 12.0 - 16.0 g/dL 09/17/2024 4:12 AM [facility] HEMATOCRIT 36.1 36.0 - 46.0 % 09/17/2024 4:12 AM [facility] MCV 93.3 84.0 - 103.0 fL 09/17/2024 4:12 AM [facility] MCH 30.5 27.0 - 34.0 pg 09/17/2024 4:12 AM [facility] MCHC 32.7 30.0 - 35.0 g/dL 09/17/2024 4:12 AM [facility] PLATELETS 155 140 - 440 K/uL 09/17/2024 4:12 AM [facility] MPV 10.0 8.9 - 12.8 fL 09/17/2024 4:12 AM [facility] RDW 12.8 11.0 - 14.5 % 09/17/2024 4:12 AM [facility] RDW-STDEV 43.7 37.0 - 54.0 fL 09/17/2024 4:12 AM [facility] Blood Venipuncture / Unknown 09/17/2024 4:00 AM TATTOOER 09/17/2024 4:06 AM TATTOOER Savannah Garcia MD HEMATOLOGY ORDERABLES Final Resu lt [facility] CLIA # [id number] [address] [facility] [place] [address] * EKG 12-LEAD (09/16/2024 7:32 AM TATTOOER) 09/16/2024 7:32 AM TATTOOER Narrative INTERFACE SYSTEM - 09/18/2024 6:26 AM TATTOOER ?[facility] ? [address] [place] [address] ? Test Date: ?2024-09-16 Pat Name: ? VENTURA ELMORE ?Department: ?? 12 ?Room: ? 3155 01 Gender: ? Female ? 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 [id number] : ?1975 ? Requested By: ?? Order Number: [id number] ? Reading MD: ?? Kasandra Jeffrey ? Measurements Intervals ?[place] ? Rate: ? 64 ? P: ?36 ND: ? 160 ?QRS: ?-6 QRSD: ? 82 ? T: ?91 QT: ? 448 ? QTc: ?462 ? Interpretive Statements Normal sinus rhythm Anterior infarct, age undetermined Abnormal ECG Electronically Signed On 09-18-2024 6:26:33 TATTOOER by Kasandra Jeffrey Procedure Note Provider, 09/18/[address] [address] Test Date: 2024-09-16 Pat Name: VENTURA ELMORE Department: 12 Room: [address] [place] [address] Gender: Female Operations Accountant: [id number] : 1975 Requested By: Order Number: [id number] Temo Jeffrey Measurements Intervals [place] Rate: 64 P: 36 ND: 160 QRS: -6 QRSD: 82 T: 91 QT: 448 QTc: 462 Interpretive Statements Normal sinus rhythm Anterior infarct, age undetermined Abnormal ECG Electronically Signed On 09-18-2024 6:26:33 TATTOOER by Kasandra Jeffrey us Wilfredo Harmon MD ECG ORDERABLES Final Result INTERFACE SYSTEM Refer to clinic/hospital department * (ABNORMAL) CBC WITHOUT DIFFERENTIAL (09/16/2024 5:28 AM TATTOOER) [facility] WBC 3.5(L) 4.8 - 10.8 K/uL 09/16/2024 5:49 AM [facility] RBC 3.55(L) 4.20 - 5.40 M/uL 09/16/2024 5:49 AM [facility] HEMOGLOBIN 10.8(L) 12.0 - 16.0 g/dL 09/16/2024 5:49 AM [facility] HEMATOCRIT 35.6(L) 36.0 - 46.0 % 09/16/2024 5:49 AM [facility] MCV 100.3 84.0 - 103.0 fL 09/16/2024 5:49 AM [facility] MCH 30.4 27.0 - 34.0 pg 09/16/2024 5:49 AM [facility] MCHC 30.3 30.0 - 35.0 g/dL 09/16/2024 5:49 AM [facility] PLATELETS 170 140 - 440 K/uL 09/16/2024 5:49 AM [facility] MPV 9.6 8.9 - 12.8 fL 09/16/2024 5:49 AM [facility] RDW 12.8 11.0 - 14.5 % 09/16/2024 5:49 AM [facility] RDW-STDEV 47.7 37.0 - 54.0 fL 09/16/2024 5:49 AM [facility] Blood Venipuncture / Unknown 09/16/2024 5:28 AM [facility] 09/16/2024 5:36 AM [facility] us Savannah Garcia MD HEMATOLOGY ORDERABLES Final Resu lt [facility] CLIA # [id number] [address] [place] [address] * (ABNORMAL) BASIC METABOLIC PANEL (09/16/2024 4:25 AM TATTOOER) SODIUM 137 136 - 145 mmol/L 09/16/2024 5:13 AM [facility] POTASSIUM 4.8 3.5 - 5.1 mmol/L 09/16/2024 5:13 AM [facility] CHLORIDE 107 98 - 107 mmol/L 09/16/2024 5:13 AM [facility] CO2 23 22 - 29 mmol/L 09/16/2024 5:13 AM [facility] CALCIUM 8.9 8.6 - 10.0 mg/dL 09/16/2024 5:13 AM [facility] BUN 25(H) 6 - 20 mg/dL 09/16/2024 5:13 AM [facility] CREATININE 1.29(H) 0.51 - 0.95 mg/dL 09/16/2024 5:13 AM [facility] GLUCOSE 86 74 - 99 mg/dL 09/16/2024 5:13 AM [facility] GFR 50(L) >=60 mL/min/1. 73 sq meter 09/16/2024 5:13 AM [facility] Comment:eGFR calculated with 2020 CKD-EPI equation. Vegetarian diet, extremely high or low muscle mass, and may affect results. Cystatin C with Glomerular Filtration Rate is a suitable alternative for these patients. ANION GAP 7(L) 9 - 20 mmol/L 09/16/2024 5:13 AM [facility] Blood Venipuncture / Unknown 09/16/2024 4:25 AM T[facility]ER 09/16/2024 4:34 AM [facility] Savannah Garcia MD CHEMISTRY ORDERABLES Final Resul t [facility] CLIA # [id number] [address] [place] [id number] * (ABNORMAL) HEPATIC FUNCTION PANEL (09/16/2024 4:25 AM TATTOOER) [facility] TOTAL PROTEIN 5.5(L) 6.4 - 8.3 g/dL 09/16/2024 5:21 AM [facility] ALBUMIN 2.7(L) 3.5 - 5.2 g/dL 09/16/2024 5:21 AM [facility] BILIRUBIN TOTAL 0.2 0.2 - 1.0 mg/dL 09/16/2024 5:21 AM [facility] BILIRUBIN DIRECT <0.1 0.0 - 0.3 mg/dL 09/16/2024 5:21 AM [facility] Comment:Hemolyzed: Result ma y be falsely decreased. ALKALINE PHOSPHATASE 52 35 - 104 U/L 09/16/2024 5:21 AM [facility] AST 26 10 - 35 U/L 09/16/2024 5:21 AM [facility] Comment:Hemolysis present. R esult may be falsely elevated. ALT 20 <=35 U/L 09/16/2024 5:21 AM [facility] Blood Venipuncture / Unknown 09/16/2024 4:25 AM [facility]ER 09/16/2024 4:34 AM [facility] Wilfredo Harmon MD CHEMISTRY ORDERABLES Final Resu lt [facility] CLIA # [id number] [address] [place] [id number] * (ABNORMAL) DRUG SCREEN, URINE (09/15/2024 10:41 PM TATTOOER) [facility] AMPHETAMINE QUAL, URINE Negative Negative 09/15/2024 11:29 PM [facility] BARBITURATE QUAL, URINE Negative Negative 09/15/2024 11:29 PM [facility] BENZODIAZEPINE QUAL, URINE Negative Negative 09/15/2024 11:29 PM [facility] COCAINE QUAL URINE Negative Negative 09/15/2024 11:29 PM [facility] OPIATE QUAL, URINE Presumptive Positive(A) Negative 09/15/2024 11:29 PM [facility] CANNABINOIDS QUAL, URINE Negative Negative 09/15/2024 11:29 PM [facility] OXYCODONE QUAL, URINE Negative Negative 09/15/2024 11:29 PM [facility] METHADONE QUAL, URINE Negative Negative 09/15/2024 11:29 PM [facility] FENTANYL QUAL, URINE Negative Negative 09/15/2024 11:29 PM [facility] CREATININE, URINE 43.6 29.0 - 226.0 mg/dL 09/15/2024 11:29 PM [facility] Comment:Reference Range vari es with fluid intake and diet. Urine URINE SPECIMEN OBTAINED BY CLEAN CATCH PROCEDURE / Unknown 09/15/2024 10:41 PM [facility] 09/15/2024 10:51 PM [facility] - 09/15/2024 11:29 PM [facility] This test is a qualitative screen. [...] Harmon MD URINE ORDERABLES Final Result [facility] # [id number] [address] [address] * XR VIDEO SWALLOW W SPEECH (09/15/2024 2:43 PM TATTOOER) Anatomical Region Laterality Modality Chest Computed Radiogr aphy 09/15/2024 2:43 PM TATTOOER Impressions 09/15/2024 3:00 PM TATTOOER IMPRESSION: Please see below. Exam: XR VIDEO [...] nal Result * PHOSPHORUS (09/15/2024 3:48 AM TATTOOER) PHOSPHORUS 3.6 2.5 - 4.5 mg/dL 09/15/2024 7:38 PM TATTOOER [facility] Blood Venipuncture / Unknown 09/15/2024 3:48 AM TATTOOER 09/15/2024 3:59 AM TATTOOER Wilfredo Harmon MD CHEMISTRY ORDERABLES Final Resu lt Performing Organization Address [facility] Co de Phone Number [facility] CLIA # [id number] [address] [address] * MAGNESIUM LEVEL (09/15/2024 3:48 AM TATTOOER) Pathologist [facility] MAGNESIUM 2.0 1.6 - 2.6 mg/dL 09/15/2024 7:38 PM TATTOOER [facility] Blood Venipuncture / Unknown 09/15/2024 3:48 AM TATTOOER 09/15/2024 3:59 AM TATTOOER Wilfredo Harmon MD CHEMISTRY ORDERABLES Final Resu lt Performing Organization Address [facility] Co de Phone Number [facility] CLIA # [id number] [address] [address] * (ABNORMAL) BASIC METABOLIC PANEL (09/15/2024 3:48 AM TATTOOER) SODIUM 138 136 - 145 mmol/L 09/15/2024 5:30 AM TATTOOER [facility] POTASSIUM 4.6 3.5 - 5.1 mmol/L 09/15/2024 5:30 AM [facility] CHLORIDE 108(H) 98 - 107 mmol/L 09/15/2024 5:30 AM [facility] CO2 21(L) 22 - 29 mmol/L 09/15/2024 5:30 AM [facility] CALCIUM 8.7 8.6 - 10.0 mg/dL 09/15/2024 5:30 AM [facility] BUN 24(H) 6 - 20 mg/dL 09/15/2024 5:30 AM [facility] CREATININE 1.24(H) 0.51 - 0.95 mg/dL 09/15/2024 5:30 AM [facility] GLUCOSE 90 74 - 99 mg/dL 09/15/2024 5:30 AM [facility] GFR 53(L) >=60 mL/min/1. 73 sq meter 09/15/2024 5:30 AM [facility] Comment:eGFR calculated with 2020 CKD-EPI equation. Vegetarian diet, extremely high or low muscle mass, and may affect results. Cystatin C with Glomerular Filtration Rate is a suitable alternative for these patients. ANION GAP 9 9 - 20 mmol/L 09/15/2024 5:30 AM [facility] Blood Venipuncture / Unknown 09/15/2024 3:48 AM TATTOOER 09/15/2024 3:59 AM TATTOOER us Savannah Garcia MD CHEMISTRY ORDERABLES Final Resul t [id number] [address] [place] [id number] * (ABNORMAL) CBC WITHOUT DIFFERENTIAL (09/15/2024 3:48 AM TATTOOER) WBC 4.2(L) 4.8 - 10.8 K/uL 09/15/2024 4:09 AM [facility] RBC 3.95(L) 4.20 - 5.40 M/uL 09/15/2024 4:09 AM [facility] HEMOGLOBIN 11.9(L) 12.0 - 16.0 g/dL 09/15/2024 4:09 AM [facility] HEMATOCRIT 37.6 36.0 - 46.0 % 09/15/2024 4:09 AM [facility] MCV 95.2 84.0 - 103.0 fL 09/15/2024 4:09 AM [facility] MCH 30.1 27.0 - 34.0 pg 09/15/2024 4:09 AM [facility] MCHC 31.6 30.0 - 35.0 g/dL 09/15/2024 4:09 AM [facility] PLATELETS 188 140 - 440 K/uL 09/15/2024 4:09 AM [facility] MPV 9.4 8.9 - 12.8 fL 09/15/2024 4:09 AM [facility] RDW 13.0 11.0 - 14.5 % 09/15/2024 4:09 AM [facility] RDW-STDEV 46.0 37.0 - 54.0 fL 09/15/2024 4:09 AM [facility] Blood Venipuncture / Unknown 09/15/2024 3:48 AM TATTOOER 09/15/2024 3:59 AM TATTOOER us Savannah Garcia MD HEMATOLOGY ORDERABLES Final Resu lt [facility] CLIA # [id number] Formerly [facility], [facility] [address] [place], [place] [address] * CT SOFT TISSUE NECK W CONTRAST (09/14/2024 5:04 PM TATTOOER) Anatomical Region Laterality Modality Neck Computed Tomogra phy 09/14/2024 5:04 PM TATTOOER Impressions 09/15/2024 9:01 AM TATTOOER IMPRESSION: 1. ??A 3.1 x 2.3 x [...] tube is present. Narrative 09/15/2024 9:01 AM TATTOOER EXAM: ??CT SOFT TISSUE NECK W CONTRAST [...] is present within both lungs. There are tmuc-qs-sawgeupr degenerative changes of the mid to lower [...] is present within both lungs. There are vcsx-eq-gwlmukxr degenerative changes of the mid to lower [...] A tracheostomy tube is present. Guerda Jennifer Willams [facility] CT ORDERABLES Final Result * CT CHEST ABDOMEN PELVIS W CONT (09/14/2024 5:03 PM TATTOOER) Anatomical Region Laterality Modality Chest Computed Tomogra phy 09/14/2024 5:04 PM TATTOOER Impressions 09/15/2024 8:37 AM TATTOOER IMPRESSION: 1. ??Small areas of atelectasis or [...] posterior rib fractures. Narrative 09/15/2024 8:37 AM TATTOOER Exam: ??CT CHEST ABDOMEN PELVIS W CONT [...] aorta is normal in caliber. There are zrkm-dc-fxvbcjcv degenerative changes of the thoracic spine and [...] is normal in caliber and contains a nzmfi-bf-fxuauvhj amount of atherosclerotic plaque. The arteries the [...] aorta is normal in caliber. There are vwkw-ks-zzcdlkxo degenerative changes of the thoracic spine and [...] is normal in caliber and contains a kmqiy-gr-tvoxehjj amount of atherosclerotic plaque. The arteries the [...] old, healed right posterior rib fractures. Guerda Jennifer Willams [facility] CT ORDERABLES Final Result * SPUTUM CULTURE WITH GRAM STAIN (09/14/2024 11:29 AM TATTOOER) CULTURE No pathogens isolated. Normal respiratory parish present. 09/16/2024 9:09 AM TATTOOER [facility] GRAM STAIN Smear contains </=10 squamous epithelial cells per low power field 09/16/2024 9:09 AM TATTOOER [facility] GRAM STAIN <25 PMN WBC/LPF 9:09 AM [facility] GRAM STAIN Mixed parish with no predominate morphology 09/16/2024 9:09 AM [facility] Sputum SPUTUM SPECIMEN OBTAINED BY ASPIRATION / Unknown Collection / Unknown 09/14/2024 11:29 AM TATTOOER 09/14/2024 11:59 AM TATTOOER Savannah Garcia MD MICROBIOLOGY - GENERAL ORDERABLE S Final Result [facility] CLIA # [id number] [facility] [address] * (ABNORMAL) PNEUMONIA PATHOGEN PCR PANEL (09/14/2024 11:29 AM TATTOOER) Coronavirus by PCR INDETERM INATE(A) Not Detected 09/14/2024 1:32 PM TATTOOER [facility] Comment:Unable to determine presence or absence of Coronavirus (strains 229E, OC43, HKU1, NL63) DNA. This assay does NOT test for CoVID-19. If clinical suspicion is high, recommend ordering a respiratory viral panel and submission of a nasopharyngeal swab for testing. Respiratory syncytial virus by PCR DETECTED (A) Not Detected 09/14/2024 1:32 PM TATTOOER [facility] Sputum SPUTUM SPECIMEN OBTAINED BY ASPIRATION / Unknown Collection / Unknown 09/14/2024 11:29 AM TATTOOER 09/14/2024 7:39 AM TATTOOER Narrative [facility] - 09/14/2024 1:32 PM TATTOOER NOTE: Per the german teacher, this current lot of reagent may be insensitive for the full detection of adenoviruses. ??If adenovirus is within the differential diagnosis, the specimen may be submitted to a reference laboratory for further testing. ??If desired, order [id number] Lab Test, stating Adenovirus by PCR testing in the ordering comment and notify the Microbiology lab at [phone]. Positive Respiratory panel called to Michelle Mendoza [...] MICROBIOLOGY - GENERAL ORDERABL ES Final Result [facility] CLIA # [id number] [address] [place] [address] * (ABNORMAL) BASIC METABOLIC PANEL (09/14/2024 7:11 AM TATTOOER) SODIUM 143 136 - 145 mmol/L 09/14/2024 7:56 AM TATTOOER [facility] POTASSIUM 4.5 3.5 - 5.1 mmol/L 09/14/2024 7:56 AM TATTOOER [facility] CHLORIDE 114(H) 98 - 107 mmol/L 09/14/2024 7:56 AM TATTOOER [facility] CO2 23 22 - 29 mmol/L 09/14/2024 7:56 AM [facility] CALCIUM 8.2(L) 8.6 - 10.0 mg/dL 09/14/2024 7:56 AM [facility] BUN 22(H) 6 - 20 mg/dL 09/14/2024 7:56 AM [facility] CREATININE 1.34(H) 0.51 - 0.95 mg/dL 09/14/2024 7:56 AM [facility] GLUCOSE 153(H) 74 - 99 mg/dL 09/14/2024 7:56 AM [facility] GFR 48(L) >=60 mL/min/1. 73 sq meter 09/14/2024 7:56 AM [facility] Comment:eGFR calculated with 2020 CKD-EPI equation. Vegetarian diet, extremely high or low muscle mass, and may affect results. Cystatin C with Glomerular Filtration Rate is a suitable alternative for these patients. ANION GAP 6(L) 9 - 20 mmol/L 09/14/2024 7:56 AM [facility] Blood Venipuncture / Unknown 09/14/2024 7:11 AM TATTOOER 09/14/2024 7:14 AM [facility] us Kelin Bunn NP CHEMISTRY ORDERABLES Final Resu lt [facility] CLIA # [id number] [address] [place] [address] * (ABNORMAL) CBC WITHOUT DIFFERENTIAL (09/14/2024 7:11 AM TATTOOER) WBC 6.9 4.8 - 10.8 K/uL 09/14/2024 7:18 AM [facility] RBC 3.91(L) 4.20 - 5.40 M/uL 09/14/2024 7:18 AM [facility] HEMOGLOBIN 11.7(L) 12.0 - 16.0 g/dL 09/14/2024 7:18 AM [facility] HEMATOCRIT 37.7 36.0 - 46.0 % 09/14/2024 7:18 AM [facility] MCV 96.4 84.0 - 103.0 fL 09/14/2024 7:18 AM [facility] MCH 29.9 27.0 - 34.0 pg 09/14/2024 7:18 AM [facility] MCHC 31.0 30.0 - 35.0 g/dL 09/14/2024 7:18 AM [facility] PLATELETS 245 140 - 440 K/uL 09/14/2024 7:18 AM [facility] MPV 9.2 8.9 - 12.8 fL 09/14/2024 7:18 AM [facility] RDW 13.2 11.0 - 14.5 % 09/14/2024 7:18 AM [facility] RDW-STDEV 46.9 37.0 - 54.0 fL 09/14/2024 7:18 AM [facility] Blood Venipuncture / Unknown 09/14/2024 7:11 AM TATTOOER 09/14/2024 7:14 AM TATTOOER us Kelin Bunn CLIENT SERVICES ASSISTANT HEMATOLOGY ORDERABLES Final Res ult [facility] CLIA # [id number] [address] [place] [address] * VANCOMYCIN LEVEL RANDOM (09/14/2024 7:11 AM TATTOOER) Pathologist [facility] VANCOMYCIN, RANDOM 16.7 5.0 - 50.0 ug/mL 09/14/2024 7:56 AM [facility] Blood Venipuncture / Unknown 09/14/2024 7:11 AM TATTOOER 09/14/2024 7:14 AM [facility]OOER [facility]ative [facility] 09/14/2024 7:56 AM TATTOOER Vancomycin Therapeutic Ranges: Vancomycin Trough: 10 - 20 mcg/mL Vancomycin Peak: ?? 25 - 50 mcg/mL Kelin Bunn NP CHEMISTRY ORDERABLES Final Resu lt Performing Organization Address [facility]/ZIP Co de Phone Number [facility] CLIA # [id number] [address] [address] [place] [address] * SPUTUM CULTURE WITH GRAM STAIN (09/14/2024 6:29 AM TATTOOER) CULTURE Suggest appropriate recollection and resubmit. 09/14/2024 7:59 AM [facility] GRAM STAIN Smear contains >/=10 squamous epithelial cells per low power field 09/14/2024 7:59 AM [facility] GRAM STAIN suggestive of a poor quality specimen, culture not performed. 09/14/2024 7:59 AM [facility] Sputum COUGHED SPUTUM SPECIMEN / Unknown Collection / Unknown 09/14/2024 6:29 AM TATTOOER 09/14/2024 6:34 AM TATTOOER [facility] - 09/14/2024 7:59 AM TATTOOER Sputum quality unacceptable for culture called to Michelle Brown RN by Allison Michaud on 09/14/2024 at 7:58 AM with verbal readback. Kelin Bunn NP MICROBIOLOGY - GENERAL ORDERABL ES Final Result Performing Organization Address [facility]/ZIP Co de Phone Number [facility] CLIA # [id number] [address] [facility] [place] [address] * LACTIC ACID (09/14/2024 12:04 AM TATTOOER) LACTIC ACID 0.6 <=2.0 mmol/L 09/14/2024 12:31 AM [facility] Blood Venipuncture / Unknown 09/14/2024 12:04 AM TATTOOER 09/14/2024 12:08 AM TATTOOER us Milan Cook MD CHEMISTRY ORDERABLES Final Resu lt Performing Organization Address [facility] Co de Phone Number [facility] CLIA # [id number] [address] [address] [place] [address] * (ABNORMAL) TROPONIN 6 HR, 5TH GEN (09/14/2024 12:04 AM TATTOOER) TROPONIN T, 6 HR 5TH GEN 21(H) <11 ng/L 09/14/2024 12:40 AM TATTOOER [facility] DELTA 6HR TROPONIN T 0 See Interp. 09/14/2024 12:40 AM TATTOOER [facility] Blood Venipuncture / Unknown 09/14/2024 12:04 AM TATTOOER 09/14/2024 12:09 AM TATTOOER Narrative [facility] - 09/14/2024 12:40 AM TATTOOER Troponin elevated. Delta indeterminate. Delay in collection of timed specimen beyond recommended collection interval. Results must be interpreted in clinical context. us Humberto Phillip MD CHEMISTRY ORDERABLES Final Re sult Performing Organization Address [facility] Co de Phone Number [facility] CLIA # [id number] [address] [address] [place] [address] * (ABNORMAL) POC GLUCOSE (09/13/2024 9:40 PM TATTOOER) GLUCOSE POC 128(H) 74 - 99 mg/dL 09/13/2024 9:40 PM TATTOOER [facility] SPECIMEN SOURCE, GLUCOSE POC Capillary 09/13/2024 9:40 PM TATTOOER [facility] Blood, whole 09/13/2024 9:40 PM TATTOOER 09/13/2024 9:48 PM TATTOOER Milan Cook MD POINT OF CARE TESTING Final Res ult Performing Organization Address [facility] Co de Phone Number [facility] [id number] [address] [address] * RESPIRATORY PATHOGEN PCR PANEL (09/13/2024 9:32 PM TATTOOER) [facility] Respiratory Pathogen PCR Panel NOT DETECTED No respiratory pathogen nucleic acids detected. 09/13/2024 10:56 PM TATTOOER [facility] COVID-19 PCR NOT DETECTED Not Detected 09/13/2024 10:56 PM TATTOOER [facility] Upper Respiratory ENTIRE NASOPHARYNX / Unknown Collection / Unknown 09/13/2024 9:32 PM TATTOOER 09/13/2024 9:38 PM TATTOOER Narrative [facility] - 09/13/2024 10:56 PM TATTOOER The Film Array Respiratory Panel (RP2.1) is [...] ORDERABL ES Final Result Performing Organization Address [facility]/ZIP Co de Phone Number [facility] # [id number] [address] [place] [address] * (ABNORMAL) TROPONIN 2 HR, 5TH GEN (09/13/2024 7:43 PM TATTOOER) Pathologist [facility] TROPONIN T, 2 HR 5TH GEN 19(H) <=10 ng/L 09/13/2024 8:24 PM TATTOOER [facility] DELTA 2HR TROPONIN T -2 See Interp. 09/13/2024 8:24 PM [facility] Blood Venipuncture / Unknown 09/13/2024 7:43 PM TATTOOER 09/13/2024 7:48 PM TATTOOER Narrative [facility] - 09/13/2024 8:24 PM TATTOOER Troponin elevated. Delta not changing. Humberto Phillip MD CHEMISTRY ORDERABLES Final Re sult [facility] CLIA # [id number] [address] [address] * EXTRA TUBE (URINE CLEMENTS) (09/13/2024 5:56 PM TATTOOER) Urine URINE SPECIMEN OBTAINED BY CLEAN CATCH PROCEDURE / Unknown Collection / Unknown 09/13/2024 5:56 PM TATTOOER 09/13/2024 6:16 PM TATTOOER Humberto Phillip MD URINE ORDERABLES Final Result Performing Organization Address City/[facility]/ZIP Co de Phone Number [facility] CLIA # [id number] [address] [address] * (ABNORMAL) URINALYSIS WITH REFLEX MICROSCOPIC (09/13/2024 5:56 PM TATTOOER) COLOR UA Yellow Pale to Dark Yellow 09/13/2024 6:25 PM [facility] CLARITY UA Cloudy(A) Clear 09/13/2024 6:25 PM [facility] SPECIFIC GRAVITY UA 1.014 1.003 - 1.035 09/13/2024 6:25 PM [facility] PH UA 5.5 5.0 - 8.0 09/13/2024 6:25 PM [facility] LEUKOCYTE ESTERASE UA 2+(A) Negative 09/13/2024 6:25 PM [facility] NITRITE UA Negative Negative 09/13/2024 6:25 PM [facility] PROTEIN UA Negative Negative 09/13/2024 6:25 PM [facility] GLUCOSE UA Negative Negative 09/13/2024 6:25 PM [facility] KETONES UA Negative Negative 09/13/2024 6:25 PM [facility] UROBILINOGEN UA <2.0 <2.0 mg/dL 6:25 PM [facility] BILIRUBIN UA Negative Negative 09/13/2024 6:25 PM [facility] BLOOD UA Negative Negative 09/13/2024 6:25 PM [facility] WBC UA 0-2 0 - 2 /hpf 09/13/2024 6:25 PM [facility] RBC UA 0-2 0 - 2 /hpf 09/13/2024 6:25 PM [facility] BACTERIA UA Negative Negative /hpf 09/13/2024 6:25 PM [facility] EPITHELIAL CELLS, URINE 0-5 0 - 5 /hpf 09/13/2024 6:25 PM [facility] HYALINE CAST 6-10(A) None Seen, 0-2 /lpf 09/13/2024 6:25 PM [facility] Urine URINE SPECIMEN OBTAINED BY CLEAN CATCH PROCEDURE / Unknown Collection / Unknown 09/13/2024 5:56 PM TATTOOER 09/13/2024 6:16 PM TATTOOER us Humberto Phillip MD URINE ORDERABLES Final Result [facility] CLIA # [id number] [address] [address] [place] [address] * EKG 12-LEAD (09/13/2024 5:51 PM TATTOOER) 09/13/2024 5:51 PM TATTOOER Narrative INTERFACE SYSTEM - 09/14/2024 6:29 AM TATTOOER ?[facility] ? [address] [place] [address] ? Test Date: ?2024-09-13 Pat Name: ? VENTURA ELMORE ?Department: ?? 11 ?Room: ? 06 06 Gender: ? Female ? 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 [email or web address] : ?1975 ? Requested By: ?? Order Number: [id number] ? Reading MD: ?? Prince Tuttle ? Measurements Intervals ?[place] ? Rate: ? 76 ? P: ?47 ND: ? 164 ?QRS: ?-15 QRSD: ? 76 ? T: ?85 QT: ? 450 ? QTc: ?506 ? Interpretive Statements Normal sinus rhythm Cannot rule out Anterior infarct, age undetermined Non specific ST- T wave changes Prolonged QT Abnormal ECG Electronically Signed On 09-14-2024 6:29:33 TATTOOER by Prince Tuttle Procedure Note Prince Tuttle MD - 09/14/[address] [address] Test Date: 2024-09-13 Pat Name: VENTURA ELMORE Department: 11 Room: 06 06 Gender: Female Operations Accountant: [email or web address] : 1975 Requested By: Order Number: [id number] Reading MD: Prince Tuttle Measurements Intervals [place] Rate: 76 P: 47 ND: 164 QRS: -15 QRSD: 76 T: 85 QT: 450 QTc: 506 Interpretive Statements Normal sinus rhythm Cannot rule out Anterior infarct, age undetermined Non specific ST- T wave changes Prolonged QT Abnormal ECG Electronically Signed On 09-14-2024 6:29:33 TATTOOER by Prince Tuttle us Humberto Phillip MD ECG ORDERABLES Final Result INTERFACE SYSTEM Refer to clinic/hospital department * XR CHEST PA OR AP 1 VW (09/13/2024 5:12 PM TATTOOER) Anatomical Region Laterality Modality Chest Computed Radiogr aphy 09/13/2024 5:12 PM TATTOOER Impressions 09/13/2024 5:25 PM TATTOOER IMPRESSION: Please see below. EXAM: XR CHEST [...] TROPONIN BASELINE, 5TH GEN (09/13/2024 4:48 PM TATTOOER) TROPONIN T, BASELINE 5TH GEN 21(H) <=10 ng/L 09/13/2024 5:59 PM TATTOOER [facility] [employer] [facility] Blood Venipuncture / Unknown 09/13/2024 4:48 PM TATTOOER 09/13/2024 5:00 PM TATTOOER Narrative [facility] [employer] [facility] - 09/13/2024 5:59 PM TATTOOER Troponin elevated. Humberto Phillip MD CHEMISTRY ORDERABLES Final Re sult [facility] CLIA # [id number] [address] [place], [place] [address] * BLOOD CULTURE (09/13/2024 4:48 PM TATTOOER) BLOOD CULTURE No growth 09/18/2024 6:41 PM TATTOOER [facility] Blood (Peripheral) Venipuncture / Unknown 09/13/2024 4:48 PM TATTOOER 09/13/2024 4:59 PM TATTOOER Humberto Phillip MD MICROBIOLOGY - GENERAL ORDERA BLES Final Result [facility] CLIA # [id number] [address] [place] [address] * BLOOD CULTURE (09/13/2024 4:48 PM TATTOOER) [facility] BLOOD CULTURE No growth 09/18/2024 6:42 PM TATTOOER [facility] Blood (Peripheral) Venipuncture / Unknown 09/13/2024 4:48 PM TATTOOER 09/13/2024 4:59 PM TATTOOER Humberto Phillip MD MICROBIOLOGY - GENERAL ORDERA BLES Final Result [facility] CLIA # [id number] [address] [place] [address] * LACTIC ACID (09/13/2024 4:48 PM TATTOOER) LACTIC ACID 1.3 <=2.0 mmol/L 09/13/2024 5:32 PM TATTOOER [facility] Blood Venipuncture / Unknown 09/13/2024 4:48 PM TATTOOER 09/13/2024 4:58 PM TATTOOER us Humberto Phillpi MD CHEMISTRY ORDERABLES Final Re sult [facility] # [id number] [address] [facility] [place] [place] [address] * (ABNORMAL) COMPREHENSIVE METABOLIC PANEL (09/13/2024 4:48 PM TATTOOER) [facility] SODIUM 139 136 - 145 mmol/L 09/13/2024 5:43 PM [facility] POTASSIUM 4.5 3.5 - 5.1 mmol/L 09/13/2024 5:43 PM [facility] CHLORIDE 105 98 - 107 mmol/L 09/13/2024 5:43 PM [facility] CO2 23 22 - 29 mmol/L 09/13/2024 5:43 PM [facility] CALCIUM 9.3 8.6 - 10.0 mg/dL 09/13/2024 5:43 PM [facility] BUN 31(H) 6 - 20 mg/dL 09/13/2024 5:43 PM [facility] CREATININE 1.65(H) 0.51 - 0.95 mg/dL 09/13/2024 5:43 PM [facility] GLUCOSE 94 74 - 99 mg/dL 09/13/2024 5:43 PM [facility] TOTAL PROTEIN 6.7 6.4 - 8.3 g/dL 09/13/2024 5:43 PM [facility] ALBUMIN 3.6 3.5 - 5.2 g/dL 09/13/2024 5:43 PM [facility] BILIRUBIN TOTAL 0.2 0.2 - 1.0 mg/dL 09/13/2024 5:43 PM [facility] ALKALINE PHOSPHATASE 82 35 - 104 U/L 09/13/2024 5:43 PM [facility] AST 25 10 - 35 U/L 09/13/2024 5:43 PM [facility] ALT 27 <=35 U/L 09/13/2024 5:43 PM [facility] GFR 37(L) >=60 mL/min/1. 73 sq meter 09/13/2024 5:43 PM [facility] Comment:eGFR calculated with 2020 CKD-EPI equation. Vegetarian diet, extremely high or low muscle mass, and may affect results. Cystatin C with Glomerular Filtration Rate is a suitable alternative for these patients. ANION GAP 11 9 - 20 mmol/L 09/13/2024 5:43 PM [facility] Blood Venipuncture / Unknown 09/13/2024 4:48 PM [facility] 09/13/2024 5:00 PM [facility] us Humberto Phillip MD CHEMISTRY ORDERABLES Final Re sult [facility] CLIA # [id number] [address] [place] [id number] * (ABNORMAL) CBC WITH DIFFERENTIAL (09/13/2024 4:48 PM [facility]) WBC 7.2 4.8 - 10.8 K/uL 09/13/2024 5:05 PM [facility] RBC 4.51 4.20 - 5.40 M/uL 09/13/2024 5:05 PM [facility] HEMOGLOBIN 13.8 12.0 - 16.0 g/dL 09/13/2024 5:05 PM [facility] HEMATOCRIT 42.6 36.0 - 46.0 % 09/13/2024 5:05 PM [facility] MCV 94.5 84.0 - 103.0 fL 09/13/2024 5:05 PM [facility] MCH 30.6 27.0 - 34.0 pg 09/13/2024 5:05 PM [facility] MCHC 32.4 30.0 - 35.0 g/dL 09/13/2024 5:05 PM [facility] RDW 13.0 11.0 - 14.5 % 09/13/2024 5:05 PM [facility] RDW-STDEV 44.4 37.0 - 54.0 fL 09/13/2024 5:05 PM [facility] PLATELETS 315 140 - 440 K/uL 09/13/2024 5:05 PM [facility] MPV 9.4 8.9 - 12.8 fL 09/13/2024 5:05 PM [facility] NEUTROPHILS 61 42 - 75 % 09/13/2024 5:05 PM [facility] LYMPHOCYTES 29 24 - 44 % 09/13/2024 5:05 PM [facility] MONOCYTES 9 2 - 10 % 09/13/2024 5:05 PM [facility] EOSINOPHILS 1 0 - 7 % 09/13/2024 5:05 PM [facility] BASOPHILS 0 0 - 1 % 09/13/2024 5:05 PM [facility] IMMATURE GRANULOCYTES 0 0 - 2 % 09/13/2024 5:05 PM [facility] NEUTROPHIL ABSOLUTE 4.41 2.00 - 8.00 K/uL 09/13/2024 5:05 PM [facility] LYMPHOCYTE ABSOLUTE 2.06 1.20 - 4.00 K/uL 09/13/2024 5:05 PM [facility] MONOCYTE ABSOLUTE 0.63(H) 0.10 - 0.60 K/uL 09/13/2024 5:05 PM [facility] EOSINOPHIL ABSOLUTE 0.08 0.00 - 0.70 K/uL 09/13/2024 5:05 PM [facility] BASOPHILS ABSOLUTE 0.03 0.00 - 0.20 K/uL 09/13/2024 5:05 PM [facility] IMMATURE GRANULOCYTES ABSOLUTE 0.02 0.00 - 0.10 K/uL 09/13/2024 5:05 PM [facility] Blood Venipuncture / Unknown 09/13/2024 4:48 PM TATTOOER 09/13/2024 5:00 PM TATTOOER Humberto Phillip MD HEMATOLOGY ORDERABLES Final R esult [facility] # [id number] [id number] [place] [address] * Critical Care (09/13/2024 4:22 PM TATTOOER) Narrative Humberto Phillip MD - 09/13/2024 4:22 PM TATTOOER Humberto Phillip MD ? 09/13/2024 ??7:34 PM [...] no ?Care discussed with: admitting provider ?? Humberto Phillip MD PROCEDURE/MINOR SURGICAL ORDE RABLES Final Result documented in this encounter Visit Diagnoses Not on filedocumented in this encounter Administered Medications Inactive Administered Medications - up to 3 most recent administrations Medication Order MAR Action Action Date Dose Rate Site acetaminophen (TYLENOL) tablet 650 mg 650 mg, Oral, EVERY 6 HOURS PRN, Starting on 09/13/24 at 2055, Until Nataliia 09/28/24 at 1932, Other (See Comment), See admin instructions, Routine Given 09/17/2024 6:12 PM TATTOOER 650 mg albuterol (PROVENTIL,VENTOLIN) 2.5 mg /3 mL (0.083 %) inhalation solution 2.5 mg 2.5 mg, Inhalation, NOW THEN Q 12 HOUR RESPIRATORY, First dose (after last modification) on Wed09/18/24 at 0800, Until Discontinued, Routine Given 09/28/2024 8:40 AM TATTOOER 2.5 mg Given 09/27/2024 8:54 PM TATTOOER 2.5 mg Given 09/27/2024 7:56 AM TATTOOER 2.5 mg aspirin (RISA CHEWABLE) chewable tablet 81 mg 81 mg, G Tube, DAILY, First dose on Wed09/14/24 at 0900, Until Discontinued, Routine, Previous Med: aspirin (RISA CHEWABLE) 81 mg Tablet, Chewable - Orig Sig - 81 mg by G Tube route daily. Given 09/28/2024 8:27 AM TATTOOER 81 mg Given 09/27/2024 9:07 AM TATTOOER 81 mg Given 09/26/2024 9:03 AM TATTOOER 81 mg atorvastatin (LIPITOR) tablet 80 mg 80 mg, G Tube, DAILY AT BEDTIME, First dose on Wed09/13/24 at 2100, Until Discontinued, Routine, Previous Med: atorvastatin (LIPITOR) 80 mg tablet - Orig Sig - 80 mg by G Tube route daily at bedtime. Given 09/27/2024 8:26 PM TATTOOER 80 mg Given 09/26/2024 8:31 PM TATTOOER 80 mg Given 09/25/2024 9:06 PM TATTOOER 80 mg budesonide (PULMICORT RESPULE) 0.5 mg/2 mL inhalation solution 0.5 mg 0.5 mg, Inhalation, DAILY RESPIRATORY, First dose on Wed09/14/24 at 0800, Until Discontinued, Routine, Previous Med: budesonide (PULMICORT RESPULE) 0.5 mg/2 mL Suspension for Nebulization - Orig Sig - Take 0.5 mg by inhalation 2 times daily. Given 09/28/2024 8:39 AM TATTOOER 0.5 mg Given 09/27/2024 7:56 AM TATTOOER 0.5 mg Given 09/26/2024 9:08 AM TATTOOER 0.5 mg clopidogreL (PLAVIX) tablet 75 mg 75 mg, G Tube, DAILY, First dose on Wed09/14/24 at 0900, Until Discontinued, Routine, Previous Med: clopidogreL (PLAVIX) 75 mg Tablet - Orig Sig - 75 mg by G Tube route daily. Given 09/28/2024 8:27 AM TATTOOER 75 mg Given 09/27/2024 9:07 AM TATTOOER 75 mg Given 09/26/2024 9:03 AM TATTOOER 75 mg heparin injection 5,000 Units 5,000 Units, subCUT, EVERY 8 HOURS, First dose on Wed09/13/24 at 2200, Until Discontinued, Routine Given 09/28/2024 5:26 AM TATTOOER 5,000 Units Abdomen, Left Upper Quadrant Given 09/27/2024 8:26 PM TATTOOER 5,000 Units A bdomen, Left Lower Quadrant Given 09/27/2024 1:22 PM TATTOOER 5,000 Units A bdomen, Left Upper Quadrant HYDROcodone-acetaminophen (NORCO) 5-325 mg per tablet 1 Tablet 1 Tablet, Oral, EVERY 6 HOURS PRN, Starting on Wed09/25/24 at 1445, Until Nataliia 09/28/24 at 1932, Pain (See admin instructions), Routine Given 09/28/2024 11:40 AM TATTOOER 1 Tablet Given 09/28/2024 5:26 AM TATTOOER 1 Tablet Given 09/27/2024 9:20 PM TATTOOER 1 Tablet hydrOXYzine HCL (ATARAX) tablet 25 mg 25 mg, Oral, EVERY 8 HOURS PRN, Starting on Wed09/22/24 at 1103, Until Nataliia 09/28/24 at 1932, Anxiety, Routine Given 09/28/2024 3:19 PM TATTOOER 25 mg Given 09/28/2024 8:31 AM TATTOOER 25 mg Given 09/27/2024 9:12 AM TATTOOER 25 mg lidocaine-EPINEPHrine (XYLOCAINE-EPI) 2 %-1:100,000 injection INTRA-PROCEDURE PRN, Starting on 09/17/24 at 1308, Until 09/17/24 at 1328, Routine, Intra-op Given 09/17/2024 1:08 PM TATTOOER 10 mL Opera tive Site melatonin tablet 3 mg 3 mg, Oral, NIGHTLY PRN, Starting on 09/16/24 at 1622, Until Nataliia 09/28/24 at 1932, Insomnia, Routine Given 09/21/2024 8:50 PM TATTOOER 3 mg Given 09/20/2024 9:08 PM TATTOOER 3 mg Given 09/19/2024 9:49 PM TATTOOER 3 mg metoprolol tartrate (LOPRESSOR) tablet 25 mg 25 mg, Oral, TWO TIMES DAILY, First dose on Wed09/25/24 at 1045, Until Discontinued, Routine, On hold since Wed09/26/2024 at 0801 until manually unheld Given 09/25/2024 9:07 PM TATTOOER 25 mg Given 09/25/2024 10:49 AM TATTOOER 25 mg midodrine (PROAMATINE) tablet 5 mg 5 mg, Oral, TWO TIMES DAILY, First dose (after last modification) on Wed09/28/24 at 0900, Until Discontinued, Routine Given 09/28/2024 8:27 AM TATTOOER 5 mg morphine 4 mg/mL injection 2 mg 2 mg, IV, EVERY 2 HOURS PRN, Starting on 09/16/24 at 1620, Until Nataliia 09/28/24 at 1932, Pain, Severe, Routine Given 09/28/2024 12:49 AM TATTOOER 2 mg Given 09/27/2024 6:17 PM TATTOOER 2 mg Given 09/27/2024 1:28 PM TATTOOER 2 mg naloxone (NARCAN) 0.4 mg/mL injection 0.1-0.4 mg 0.1-0.4 mg, IV, SEE ADMIN INSTRUCTIONS, Starting on Wed09/13/24 at 205, Until Nataliia 09/28/24 at 1932, Routine ondansetron (ZOFRAN) 4 mg/2 mL injection 4 mg 4 mg, IV, EVERY 6 HOURS PRN, Starting on Wed09/13/24 at 2055, Until Nataliia 09/28/24 at 1932, Nausea/Emesis, Routine New Bag 09/17/2024 1:05 PM TATTOOER 4 mg Given 09/14/2024 6:54 PM TATTOOER 4 mg PARoxetine HCl (PAXIL) tablet 20 mg 20 mg, G Tube, DAILY, First dose on Wed09/14/24 at 0900, Until Discontinued, Routine, Previous Med: PARoxetine HCl (PAXIL) 20 mg tablet - Orig Sig - 20 mg by G Tube route daily. Given 09/28/2024 8:27 AM TATTOOER 20 mg Given 09/27/2024 9:07 AM TATTOOER 20 mg Given 09/26/2024 9:03 AM TATTOOER 20 mg risperiDONE (RisperDAL) tablet 2 mg 2 mg, Oral, DAILY, First dose on Wed09/15/24 at 1330, Until Discontinued, Routine, Previous Med: risperiDONE (RisperDAL) 2 mg tablet - Orig Sig - Take 2 mg by mouth daily. Given 09/28/2024 8:27 AM TATTOOER 2 mg Given 09/27/2024 9:07 AM TATTOOER 2 mg Given 09/26/2024 9:03 AM TATTOOER 2 mg Saccharomyces boulardii (FLORASTOR) capsule 250 mg 250 mg, Oral, TWO TIMES DAILY, First dose on 09/16/24 at 2100, Until Discontinued, Routine Given 09/28/2024 8:27 AM TATTOOER 250 mg Given 09/27/2024 8:26 PM TATTOOER 250 mg Given 09/27/2024 9:07 AM TATTOOER 250 mg sennosides (SENOKOT) tablet 17.2 mg 17.2 mg, Oral, TWO TIMES DAILY PRN, Starting on 09/16/24 at 1622, Until Nataliia 09/28/24 at 1932, Constipation, Routine sodium chloride flush injection 5 mL 5 mL, IV, EVERY 12 HOURS, First dose on Nataliia 09/14/24 at 1645, Until Discontinued, Routine Given 09/26/2024 4:45 PM TATTOOER 5 mL Given 09/26/2024 5:07 AM TATTOOER 5 mL Given 09/25/2024 3:46 PM TATTOOER 5 mL sodium chloride flush injection 5 mL 5 mL, IV, SEE ADMIN INSTRUCTIONS, Starting on Nataliia 09/14/24 at 1639, Until Nataliia 09/28/24 at 1932, Routine Given 09/27/2024 8:26 PM TATTOOER 5 mL documented in this encounter Active and Recently Administered Medications Times are shown in TATTOOER. Scheduled Medication Order 09/26/2024 09/27/2024 09/28/2024 albuterol (PROVENTIL,VENTOLIN) 2.5 mg /3 mL (0.083 %) inhalation solution 2.5 mg 2.5 mg, Inhalation, NOW THEN Q 12 HOUR RESPIRATORY, First dose (after last modification) on Wed09/18/24 at 0800, Until Discontinued, Routine 0800 (Due)1940 (Given - Provider: Fidencio Lara, Student Respiratory) 0756 (Given - Provider: Jeronimo Fletcher RCP)2053 (Given - Provider: Jacqueline Sánchez RCP) 0840 (Given - Provider: Jarvis Howard RCP) aspirin (RISA CHEWABLE) chewable tablet 81 mg 81 mg, G Tube, DAILY, First dose on Wed09/14/24 at 0900, Until Discontinued, Routine, Previous Med: aspirin (RISA CHEWABLE) 81 mg Tablet, Chewable - Orig Sig - 81 mg by G Tube route daily. 09 (Given - Provider: Debbie Kirkpatrick RN) 09 (Given - Provider: Briana Astudillo RN) 08 (Given - Provider: Debbie Kirkpatrick RN) atorvastatin [...] 08 (Given - Provider: Debbie Kirkpatrick RN) heparin injection 5,000 Units 5,000 Units, subCUT, EVERY 8 HOURS, First dose on Wed09/13/24 at 2200, Until Discontinued, Routine 0507 (Given - Provider: Lise Nielsen LPN)1236 (Given - Provider: Debbie Kirkpatrick RN)2030 (Given - Provider: Serene Steven RN) 050 (Given - Provider: Serene Steven RN)132 (Given - Provider: Briana Astudillo RN)2025 (Given - Provider: Serene Steven RN) 05 (Given - Provider: Serene Steven RN)1300 (Refused - Provider: Debbie Kirkpatrick RN) metoprolol tartrate (LOPRESSOR) tablet 25 mg 25 mg, Oral, TWO TIMES DAILY, First dose on Wed09/25/24 at 1045, Until Discontinued, Routine, On hold since Wed09/26/2024 at 0801 until manually unheld 0801 (Held by Provider - Provider: Arlyn Kate MD - Reason: Lab results / vitals)0900 (Automatically Held - Provider: Arlyn Kate MD)2100 (Automatically Held - Provider: Arlyn Kate MD) 0900 (Automatically Held - Provider: Arlyn Kate MD)2100 (Automatically Held - Provider: Arlyn Kate MD) 0900 (Automatically Held - Provider: Arlyn Kate MD)193 (Order Unhold - Provider: PROVIDER, DISCHARGE PATIENT) midodrine (PROAMATINE) tablet 10 mg (CANCELED) 10 mg, Oral, EVERY 8 HOURS, First dose (after last modification) on Wed09/19/24 at 1300, Until Discontinued, Routine 0506 (Given - Provider: Lise Nielsen LPN)1236 (Given - Provider: Debbie Kirkpatrick RN)2029 (Given [...] at 2052, Until Wed09/28/24 at 1932, Routine PARoxetine HCl (PAXIL) tablet 20 mg 20 mg, G Tube, DAILY, First dose on Wed09/14/24 at 0900, Until Discontinued, Routine, Previous Med: PARoxetine HCl (PAXIL) 20 mg tablet - Orig Sig - 20 mg by G Tube route daily. 902 (Given - Provider: Debbie Kirkpatrick RN) 906 (Given - Provider: Briana Astudillo RN) 826 (Given - Provider: Debbie Kirkpatrick RN) risperiDONE (RisperDAL) tablet 2 mg 2 mg, Oral, DAILY, First dose on Wed09/15/24 at 1330, Until Discontinued, Routine, Previous Med: risperiDONE (RisperDAL) 2 mg tablet - Orig Sig - Take 2 mg by mouth daily. 09 (Given - Provider: Debbie Kirkpatrick RN) 906 (Given - Provider: Briana Astudillo RN) 826 (Given - Provider: Debbie Kirkpatrick RN) Saccharomyces boulardii (FLORASTOR) capsule 250 mg 250 mg, Oral, TWO TIMES DAILY, First dose on Wed09/16/24 at 2100, Until Discontinued, Routine 902 (Given - Provider: Debbie Kirkpatrick RN)2030 (Given [...] (Canceled Entry - Provider: Serene Steven RN)1645 (Due) sodium chloride flush injection 5 mL 5 mL, IV, SEE ADMIN INSTRUCTIONS, Starting on Nataliia 09/14/24 at 1639, Until Nataliia 09/28/24 at 1932, [...] Provider: Serene Steven RN)0912 (Given - Provider: Briana Astudillo RN)1318 (Return to [facility] - Provider: Briana Astudillo RN - Comment: too soon to administer returned to [facility])1523 (Given - Provider: Briana Astudillo [...] this med taken by DANICA Mcneil from [facility]) 0912 (Given - Provider: Briana Astudillo RN) 0831 (Given - Provider: Debbie Kirkpatrick RN - Comment: this med taken by DANICA Matthew from [facility])1519 (Given - Provider: Debbie Kirkpatrick RN) melatonin tablet 3 mg 3 mg, Oral, NIGHTLY PRN, Starting on 09/16/24 at 1622, Until Nataliia 09/28/24 at 1932, Insomnia, Routine morphine 4 mg/mL injection 2 mg 2 mg, IV, EVERY 2 HOURS PRN, Starting on 09/16/24 at 1620, Until Nataliia 09/28/24 at 1932, Pain, Severe, Routine 2036 (Given - Provider: Serene Steven RN) 0514 [...] Respiratory 09/13/2024 09/13/2024 09/13/2024 1 0:56 PM TATTOOER Respiratory Syncytial Virus (RSV) 09/14/2024 025 10/12/2024 1:16 AM TATTOOER Assessment Noted Time PHQ-9 Depression Total Score: 1 04/20/20 24 11:16 PM CDT documented as of this encounter Care Teams Director Of Community Life Relationship Specialty Start Date End Date Anu Thompson DO [address] [place] [id number] PCP - General Family Practice 07/21/23 09/17/24 documented as of this encounter
--- OUTSIDE RECORDS SUMMARY | 2024-10-14 10:36 | XMS_ITS | Encounter Summary ---
Author Organization [facility] Address [address] [place] [address] Care Team Providers Care College Intern Name Role Phone Unavailable Primary Care Provider Unavailabl e Encounter Details Date Type Department Care Team (Late Contact Info) Description 09/19/2024 External Device Data STL ABSTRACTION Provider, [...] on file Legal Sex Female 1:37 AM STEERER Gender Identity Not on file Sexual Orientation Not on file documented as of this encounter Plan of Treatment Upcoming Encounters Date Type Department Care Team (Late Contact Info) Description 10/16/2024 11:00 AM STEERER Appointment [facility] [address] [facility] [address] [place] [address] Rashmi Dumont MD [address] [facility] [address] [place] [address] [facility] Oncology, Infusion 8 10/16/2024 1:45 PM STEERER Appointment [address] [phone] Karla Goldberg MD [address] [place] [phone] 10/17/2024 1:45 PM STEERER Appointment [address] [phone] Karla Goldberg MD [address] [place] [phone] 10/18/2024 1:45 PM STEERER Appointment [address] [phone] Karla Goldberg MD [address] [place] [phone] 10/19/2024 1:45 PM STEERER Appointment [address] [phone] Karla Goldberg MD [address] [place] [phone] 10/20/2024 1:45 PM STEERER Appointment [address] [phone] Karla Goldbreg MD [address] [place] [phone] 10/23/2024 1:45 PM STEERER Appointment [address] [phone] Karla Goldberg MD [address] [place] [phone] 10/24/2024 11:30 AM STEERER Office Visit [facility] [address] [place] [phone] Chris Flores MD [address] [place] [address] 10/24/2024 1:45 PM STEERER Appointment [address] [phone] Karla Goldberg MD [address] [place] [phone] 10/25/2024 1:45 PM STEERER Appointment [address] [phone] Karla Goldberg MD [address] [place] [phone] 10/26/2024 1:45 PM STEERER Appointment [address] [phone] Karla Goldberg MD [address] [place] [phone] 10/27/2024 1:45 PM STEERER Appointment [address] [phone] Karla Goldberg MD [address] [place] [phone] 10/30/2024 1:45 PM CDT Appointment [address] [phone] Karla Goldberg MD [address] [place] [phone] 10/31/2024 1:45 PM CDT Appointment [address] [phone] Karla Goldberg MD [address] [place] [phone] 11/01/2024 1:45 PM CDT Appointment [address] [phone] Karla Goldberg MD [address] [place] [phone] 11/02/2024 1:45 PM CDT Appointment [address] [phone] Karla Goldberg MD [address] [place] [phone] 11/03/2024 1:45 PM CDT Appointment [address] [phone] Karla Goldberg MD [address] [place] [phone] 11/06/2024 1:45 PM CDT Appointment [address] [phone] Karla Goldberg MD [address] [place] [phone] 11/07/2024 1:45 PM CDT Appointment [address] [phone] Karla Goldberg MD [address] [place] [phone] 11/08/2024 1:45 PM CDT Appointment [address] [phone] Karla Goldberg MD [address] [place] [phone] 11/09/2024 1:45 PM CDT Appointment [address] [phone] Karla Goldberg MD [address] [place] [phone] 11/10/2024 1:45 PM CDT Appointment [address] [phone] Karla Goldberg MD [address] [place] [phone] 11/13/2024 1:45 PM CDT Appointment [address] [phone] Karla Goldberg MD [address] [place] [phone] 11/14/2024 1:45 PM CDT Appointment [address] [phone] Karla Goldberg MD [address] [place] [phone] 11/15/2024 12:45 PM CDT Appointment [address] [phone] Karla Goldberg MD [address] [place] [phone] 11/16/2024 12:45 PM CDT Appointment [address] [phone] Karla Goldberg MD [address] [place] [phone] 11/17/2024 1:45 PM CDT Appointment [address] [phone] Karla Goldberg MD [address] [place] [phone] 11/20/2024 1:45 PM CDT Appointment [address] [phone] Karla Goldberg MD [address] [place] [phone] 11/21/2024 1:45 PM CDT Appointment [address] [phone] Karla Goldberg MD [address] [place] [phone] 11/22/2024 1:45 PM CDT Appointment [address] [phone] Karla Goldberg MD [address] [place] [phone] 11/23/2024 1:45 PM CDT Appointment [address] [phone] Karla Goldberg MD [address] [place] [phone] 11/24/2024 1:45 PM CDT Appointment [address] [phone] Karla Goldberg MD [address] [place] [phone] 11/27/2024 1:45 PM CDT Appointment [address] [phone] Karla Goldberg MD [address] [place] [phone] 11/28/2024 1:45 PM CDT Appointment [address] [phone] Karla Goldberg MD [address] [place] [phone] documented as of this encounter Visit Diagnoses Not on filedocumented in this encounter Additional Health Concerns Infection Onset Date Last Indicated Resolved Time Respiratory Syncytial Virus (RSV) 09/14/2024 025 10/12/2024 1:16 AM 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
--- OUTSIDE RECORDS SUMMARY | 2024-10-14 10:36 | XMS_ITS | Encounter Summary ---
Author Organization [facility] Address [address] [place] [address] Care Team Providers Care Financial Wellness Coach Name Role Phone Unavailable Primary Care Provider [...] on file Legal Sex Female 1:37 AM FEATHER TRIMMER Gender Identity Not on file Sexual Orientation Not on file documented as of this encounter Plan of Treatment Upcoming Encounters Date Type Department Care Team (Late Contact Info) Description 10/16/2024 11:00 AM FEATHER TRIMMER Appointment [facility] Oncology [facility] [address] [facility] [address] [place] [address] Rashmi Dumont MD 2054 [facility] [address] [place] [address] [facility] Oncology, Infusion 8 10/16/2024 1:45 PM FEATHER TRIMMER Appointment [address] [phone] Karla Goldberg MD [address] [place] [phone] 10/17/2024 1:45 PM FEATHER TRIMMER Appointment [address] [id number] Karla Goldberg MD [address] [place] [phone] 10/18/2024 1:45 PM FEATHER TRIMMER Appointment [address] [id number] Karla Goldberg MD [address] [place] [phone] 10/19/2024 1:45 PM FEATHER TRIMMER Appointment [address] [id number] Karla Goldberg MD [address] [place] [phone] 10/20/2024 1:45 PM FEATHER TRIMMER Appointment [address] [id number] Karla Goldberg MD [address] [place] [phone] 10/23/2024 1:45 PM FEATHER TRIMMER Appointment [address] [id number] Karla Goldberg MD [address] [place] [phone] 10/24/2024 11:30 AM FEATHER TRIMMER Office Visit [facility] Ear Nose and Throat Head Neck SGF [address] [place] [address] Chris Flores MD [address] [place] [address] 10/24/2024 1:45 PM FEATHER TRIMMER Appointment [address] [id number] Karla Goldberg MD [address] [place] [phone] 10/25/2024 1:45 PM FEATHER TRIMMER Appointment [address] [id number] Karla Goldberg MD [address] [place] [phone] 10/26/2024 1:45 PM FEATHER TRIMMER Appointment [address] [id number] Karla Goldberg MD [address] [place] [phone] 10/27/2024 1:45 PM FEATHER TRIMMER Appointment [address] [id number] Karla Goldberg MD [address] [place] [phone] 10/30/2024 1:45 PM CDT Appointment [address] [id number] Karla Goldberg MD [address] [place] [phone] 10/31/2024 1:45 PM CDT Appointment [address] [phone] Karla Goldberg MD [address] [place] [phone] 11/01/2024 1:45 PM CDT Appointment [address] [phone] Karla Goldberg MD [address] [place] [phone] 11/02/2024 1:45 PM CDT Appointment [address] [phone] Karla Goldberg MD [address] [place] [phone] 11/03/2024 1:45 PM CDT Appointment [address] [phone] Karla Goldberg MD [address] [place] [phone] 11/06/2024 1:45 PM CDT Appointment [address] [id number] Karla Goldberg MD [address] [place] [phone] 11/07/2024 1:45 PM CDT Appointment [address] [phone] Karla Goldberg MD [address] [place] [phone] 11/08/2024 1:45 PM CDT Appointment [address] [phone] Karla Goldberg MD [address] [place] [phone] 11/09/2024 1:45 PM CDT Appointment [address] [id number] Karla Goldberg MD [address] [place] [phone] 11/10/2024 1:45 PM CDT Appointment [address] [phone] Karla Goldberg MD [address] [place] [phone] 11/13/2024 1:45 PM CDT Appointment [address] [id number] Karla Goldberg MD [address] [place] [phone] 11/14/2024 1:45 PM CDT Appointment [address] [id number] Karla Goldberg MD [address] [place] [phone] 11/15/2024 12:45 PM CDT Appointment [address] [id number] Karla Goldberg MD [address] [place] [phone] 11/16/2024 12:45 PM CDT Appointment [address] [id number] Karla Goldberg MD [address] [place] [phone] 11/17/2024 1:45 PM CDT Appointment [address] [id number] Karla Goldberg MD [address] [place] [phone] 11/20/2024 1:45 PM CDT Appointment [address] [phone] Karla Goldberg MD [address] [place] [phone] 11/21/2024 1:45 PM CDT Appointment [address] [phone] Karla Goldberg MD [address] [place] [phone] 11/22/2024 1:45 PM CDT Appointment [address] [id number] Karla Goldberg MD [address] [place] [phone] 11/23/2024 1:45 PM CDT Appointment [address] [phone] Karla Goldberg MD [address] [place] [phone] 11/24/2024 1:45 PM CDT Appointment [address] [id number] Karla Goldberg MD [address] [place] [phone] 11/27/2024 1:45 PM CDT Appointment [address] [phone] Karla Goldberg MD [address] [place] [phone] 11/28/2024 1:45 PM CDT Appointment [address] [id number] Karla Goldberg MD [address] [place] [phone] documented as of this encounter Visit Diagnoses Not on filedocumented in this encounter Additional Health Concerns Infection Onset Date Last Indicated Resolved Time Respiratory Syncytial Virus (RSV) 09/14/2024 025 10/12/2024 1:16 AM FEATHER TRIMMER Assessment Noted Time PHQ-9 Depression Total Score: 1 04/20/20 24 11:16 PM CDT documented as of this encounter
--- OUTSIDE RECORDS SUMMARY | 2024-10-14 10:36 | XMS_ITS | Encounter Summary ---
Author Organization [facility] Address [address] [place] [address] Care Team Providers Care Corn Breeder Name Role Phone Unavailable Primary Care Provider Unavailabl e Reason for Visit * Auth/Cert (Routine) Specialty Diagnoses / Procedures Referred By Celso blanton Referred To Contact Emergency Medicine [facility] Emergency Department [address] [place] [phone] Phone: tel: fax: Referral ID Status Reason Start Date Expiration Date Visits Re quested Visits Authorized [id number] 1 1 Encounter Details Date Type Department Care Team (Latest Contact Info) Description 09/26/2024 11:12 AM POLICY CHANGE CLERKS SUPERVISOR - 09/26/2024 11:59 PM [facility] Hospital Encounter [facility] Radiation Oncology Cancer Center [address] [phone] Karla Goldberg MD [address]54 [place] [address] Discharge Disposition: Home or Self [...] on file Legal Sex Female 1:37 AM POLICY CHANGE CLERKS SUPERVISOR Gender Identity Not on file Sexual Orientation Not on file documented as of this encounter Medications at Time of Discharge naloxone (NARCAN) 4 mg/spray [place], Non-Aerosol EMERGENCY USE ONLY: Administer 1 spray (4 mg) in one nostril one time. May repeat in alternating nostrils every 2-3 min until responsive or EMS arrives. 2 Each 3 09/28/2024 5:11 PM POLICY CHANGE CLERKS SUPERVISOR 5 trach supplies Surgery Date: 09/17/2025 Length [...] 14 days. 28 Tablet 09/28/2024 5:11 PM POLICY CHANGE CLERKS SUPERVISOR 5 10/12/19 25 ondansetron (ZOFRAN ODT) 8 mg Tablet, Rapid Dissolve Dissolve 1 tablet on top of tongue then swallow with saliva every 8 hours as needed for nausea or vomiting 30 Tablet 12/05/202 4 10/05/19 25 ALPRAZolam (Xanax) 0.25 mg [...] st Contact Info) Description 10/16/2024 11:00 AM POLICY CHANGE CLERKS SUPERVISOR Appointment [facility] Oncology [facility] [address] [place] [address] [address] [place] [address] Rashmi Dumont MD [address] [place] [address] [address] [place] [address] [facility] Oncology, Infusion 8 10/16/2024 1:45 PM POLICY CHANGE CLERKS SUPERVISOR Appointment [facility] [address] [place] [address] [address] [place] [address] Karla Goldberg MD [address] [place] [phone] 10/17/2024 1:45 PM POLICY CHANGE CLERKS SUPERVISOR Appointment [address] [id number] Karla Goldberg MD [address] [place] [phone] 10/18/2024 1:45 PM POLICY CHANGE CLERKS SUPERVISOR Appointment [address] [id number] Karla Goldberg MD [address] [place] [phone] 10/19/2024 1:45 PM POLICY CHANGE CLERKS SUPERVISOR Appointment [address] [phone] Karla Goldberg MD [address] [place] [phone] 10/20/2024 1:45 PM POLICY CHANGE CLERKS SUPERVISOR Appointment [address] [phone] Karla Goldberg MD [address] [place] [phone] 10/23/2024 1:45 PM POLICY CHANGE CLERKS SUPERVISOR Appointment [address] [phone] Karla Goldberg MD [address] [place] [phone] 10/24/2024 11:30 AM POLICY CHANGE CLERKS SUPERVISOR Office Visit [facility] Ear Nose and Throat Head Neck SGF [address] [address] Chris Flores MD [address] [address] 10/24/2024 1:45 PM POLICY CHANGE CLERKS SUPERVISOR Appointment [address] [place] [address] Karla Goldberg MD [address] [place] [phone] 10/25/2024 1:45 PM POLICY CHANGE CLERKS SUPERVISOR Appointment [address] [place] [address] Karla Goldberg MD [address] [place] [phone] 10/26/2024 1:45 PM POLICY CHANGE CLERKS SUPERVISOR Appointment [address] [id number] Karla Goldberg MD [address] [place] [phone] 10/27/2024 1:45 PM POLICY CHANGE CLERKS SUPERVISOR Appointment [address] [id number] Karla Goldberg MD [address] [place] [phone] 10/30/2024 1:45 PM CDT Appointment [address] [phone] Karla Goldberg MD [address] [place] [phone] 10/31/2024 1:45 PM CDT Appointment [address] [id number] Karla Goldberg MD [address] [place] [phone] 11/01/2024 1:45 PM CDT Appointment [address] [id number] Karla Goldberg MD [address] [place] [phone] 11/02/2024 1:45 PM CDT Appointment [address] [id number] Karla Goldberg MD [address] [place] [phone] 11/03/2024 1:45 PM CDT Appointment [address] [id number] Karla Goldberg MD [address] [place] [phone] 11/06/2024 1:45 PM CDT Appointment [address] [phone] Karla Goldberg MD [address] [place] [phone] 11/07/2024 1:45 PM CDT Appointment [address] [id number] Karla Goldberg MD [address] [place] [phone] 11/08/2024 1:45 PM CDT Appointment [address] [phone] Karla Goldebrg MD [address] [place] [phone] 11/09/2024 1:45 PM CDT Appointment [address] [id number] Karla Goldberg MD [address] [place] [phone] 11/10/2024 1:45 PM CDT Appointment [address] [id number] Karla Goldberg MD [address] [place] [phone] 11/13/2024 1:45 PM CDT Appointment [address] [id number] Karla Goldberg MD [address] [place] [phone] 11/14/2024 1:45 PM CDT Appointment [address] [id number] Karla Goldberg MD [address] [place] [phone] 11/15/2024 12:45 PM CDT Appointment [address] [id number] Karla Goldberg MD [address] [place] [phone] 11/16/2024 12:45 PM CDT Appointment [address] [id number] Karla Goldberg MD [address] [place] [phone] 11/17/2024 1:45 PM CDT Appointment [address] [id number] Karla Goldberg MD [address] [place] [phone] 11/20/2024 1:45 PM CDT Appointment [address] [id number] Karla Goldberg MD [address] [place] [phone] 11/21/2024 1:45 PM CDT Appointment [address] [id number] Karla Goldberg MD [address] [place] [phone] 11/22/2024 1:45 PM CDT Appointment [address] [phone] Karla Goldberg MD [address] [place] [phone] 11/23/2024 1:45 PM CDT Appointment [address] [id number] Karla Goldberg MD [address] [place] [phone] 11/24/2024 1:45 PM CDT Appointment [address] [id number] Karla Goldberg MD [address] [place] [phone] 11/27/2024 1:45 PM CDT Appointment [address] [id number] Karla Goldberg MD [address] [place] [phone] 11/28/2024 1:45 PM CDT Appointment [address] [phone] Karla Goldberg MD [address] [place] [phone] documented as of this encounter Procedures Procedure Name Priority Date/Time Associated Diagnosis Comments CT GUIDED RAD THERAPY FIELD Routine 09/26/2024 3:22 PM POLICY CHANGE CLERKS SUPERVISOR documented in this encounter Visit Diagnoses Not on filedocumented in this encounter Administered Medications Inactive Administered Medications - up to 3 most recent administrations Medication Order MAR Action Action Date Dose Rate Site LORazepam (ATIVAN) tablet 0.5 mg 0.5 mg, Oral, PRE-PROCEDURE ONCE, 1 dose, Starting on Wed09/26/24 at 1402, Until Wed09/26/24 at 1403, Routine Given 09/26/2024 2:03 PM POLICY CHANGE CLERKS SUPERVISOR 0.5 mg documented in this encounter Additional Health Concerns Infection Onset Date Last Indicated Resolved Time Respiratory Syncytial Virus (RSV) 09/14/2024 025 10/12/2024 1:16 AM POLICY CHANGE CLERKS SUPERVISOR Assessment Noted Time PHQ-9 Depression Total Score: 1 04/20/20 24 11:16 PM CDT documented as of this encounter
--- OUTSIDE RECORDS SUMMARY | 2024-10-14 10:36 | XMS_ITS | Encounter Summary ---
Author Organization [facility] Address [address] [place] [address] Care Team Providers Care Rubber Liner Name Role Phone Unavailable Primary Care Provider Unavailabl e Encounter Details Date Type Department Care Team (Late Contact Info) Description 10/12/2024 External Device Data STL ABSTRACTION Provider, [...] on file Legal Sex Female 1:37 AM JAVA ENTERPRISE ARCHITECT Gender Identity Not on file Sexual Orientation Not on file documented as of this encounter Plan of Treatment Upcoming Encounters Date Type Department Care Team (Late Contact Info) Description 10/16/2024 11:00 AM JAVA ENTERPRISE ARCHITECT Appointment [facility] Oncology Infusion Cancer Center [address] [facility] [address] [place] [address] Rashmi Dumont MD 2054 [facility] [address] [place] [address] [facility] Oncology, Infusion 8 10/16/2024 1:45 PM JAVA ENTERPRISE ARCHITECT Appointment [address] [address] Karla Goldberg MD [address] [place] [phone] 10/17/2024 1:45 PM JAVA ENTERPRISE ARCHITECT Appointment [address] [address] Karla Goldberg MD [address] [place] [phone] 10/18/2024 1:45 PM JAVA ENTERPRISE ARCHITECT Appointment [address] [address] Karla Goldberg MD [address] [place] [phone] 10/19/2024 1:45 PM JAVA ENTERPRISE ARCHITECT Appointment [address] [address] Karla Goldberg MD [address] [place] [phone] 10/20/2024 1:45 PM JAVA ENTERPRISE ARCHITECT Appointment [address] [address] Karla Goldberg MD [address] [place] [phone] 10/23/2024 1:45 PM JAVA ENTERPRISE ARCHITECT Appointment [address] [address] Karla Goldberg MD [address] [place] [phone] 10/24/2024 11:30 AM JAVA ENTERPRISE ARCHITECT Office Visit [facility] Ear Nose and Throat Head Neck SGF [address] [place] [address] Chris Flores MD [address] [place] [address] 10/24/2024 1:45 PM JAVA ENTERPRISE ARCHITECT Appointment [address] [address] Karla Goldberg MD [address] [place] [phone] 10/25/2024 1:45 PM JAVA ENTERPRISE ARCHITECT Appointment [address] [phone] Karla Goldberg MD [address] [place] [phone] 10/26/2024 1:45 PM JAVA ENTERPRISE ARCHITECT Appointment [address] [address] Karla Goldberg MD [address] [place] [phone] 10/27/2024 1:45 PM JAVA ENTERPRISE ARCHITECT Appointment [address] [address] Karla Goldberg MD [address] [place] [phone] 10/30/2024 1:45 PM CDT Appointment [address] [address] Karla Goldberg MD [address] [place] [phone] 10/31/2024 1:45 PM CDT Appointment [address] [phone] Karla Goldberg MD [address] [place] [phone] 11/01/2024 1:45 PM CDT Appointment [address] [phone] Karla Goldberg MD [address] [place] [phone] 11/02/2024 1:45 PM CDT Appointment [address] [phone] Karla Goldberg MD [address] [place] [phone] 11/03/2024 1:45 PM CDT Appointment [address] [phone] Karla Goldberg MD [address] [place] [phone] 11/06/2024 1:45 PM CDT Appointment [address] [phone] Karla Goldberg MD [address] [place] [phone] 11/07/2024 1:45 PM CDT Appointment [address] [phone] Karla Goldberg MD [address] [place] [phone] 11/08/2024 1:45 PM CDT Appointment [address] [phone] Karla Goldberg MD [address] [place] [phone] 11/09/2024 1:45 PM CDT Appointment [address] [phone] Karla Goldberg MD [address] [place] [phone] 11/10/2024 1:45 PM CDT Appointment [address] [phone] Karla Goldberg MD [address] [place] [phone] 11/13/2024 1:45 PM CDT Appointment [address] [phone] Karla Goldberg MD [address] [place] [phone] 11/14/2024 1:45 PM CDT Appointment [address] [phone] Karla Goldberg MD [address] [place] [phone] 11/15/2024 12:45 PM CDT Appointment [address] [phone] Karla Goldberg MD [address] [place] [phone] 11/16/2024 12:45 PM CDT Appointment [address] [phone] Karla Goldberg MD [address] [place] [phone] 11/17/2024 1:45 PM CDT Appointment [address] [phone] Karla Goldberg MD [address] [place] [phone] 11/20/2024 1:45 PM CDT Appointment [address] [phone] Karla Goldberg MD [address] [place] [phone] 11/21/2024 1:45 PM CDT Appointment [address] [phone] Karla Goldberg MD [address] [place] [phone] 11/22/2024 1:45 PM CDT Appointment [address] [phone] Karla Goldberg MD [address] [place] [phone] 11/23/2024 1:45 PM CDT Appointment [address] [phone] Karla Goldberg MD [address] [place] [phone] 11/24/2024 1:45 PM CDT Appointment [address] [phone] Karla Goldberg MD [address] [place] [phone] 11/27/2024 1:45 PM CDT Appointment [address] [phone] Karla Goldberg MD [address] [place] [phone] 11/28/2024 1:45 PM CDT Appointment [address] [phone] Karla Goldberg MD [address] [place] [phone] documented as of this encounter Visit Diagnoses Not on filedocumented in this encounter Additional Health Concerns Infection Onset Date Last Indicated Resolved Time Respiratory Syncytial Virus (RSV) 09/14/2024 025 10/12/2024 1:16 AM JAVA ENTERPRISE ARCHITECT Assessment Noted Time PHQ-9 Depression Total Score: 1 04/20/20 24 11:16 PM CDT documented as of this encounter
--- OUTSIDE RECORDS SUMMARY | 2024-10-14 10:36 | XMS_ITS | Encounter Summary ---
Author Organization [facility] Address [address] [place] [address] Care Team Providers Care Bonsai Culturist Name Role Phone Unavailable Primary Care Provider Unavailabl e Encounter Details Date Type Department Care Team (Late Contact Info) Description 10/11/2024 External Device Data STL ABSTRACTION Provider, [...] file Legal Sex Female 1:37 AM CAN INTAKE WORKER Gender Identity Not on file Sexual Orientation Not on file documented as of this encounter Plan of Treatment Upcoming Encounters Date Type Department Care Team (Late Contact Info) Description 10/16/2024 11:00 AM CAN INTAKE WORKER Appointment [facility] On[facility] [address] [facility] [address] [place] [address] Rashmi Dumont MD [address] [facility] [address] [place] [address] [facility] Oncology, Infusion 8 10/16/2024 1:45 PM CAN INTAKE WORKER Appointment [address] [id number] Karla Goldberg MD [address] [place] [phone] 10/17/2024 1:45 PM CAN INTAKE WORKER Appointment [address] [id number] Karla Goldberg MD [address] [place] [phone] 10/18/2024 1:45 PM CAN INTAKE WORKER Appointment [address] [id number] Karla Goldberg MD [address] [place] [phone] 10/19/2024 1:45 PM CAN INTAKE WORKER Appointment [address] [id number] Karla Goldberg MD [address] [place] [phone] 10/20/2024 1:45 PM CAN INTAKE WORKER Appointment [address] [id number] Karla Goldberg MD [address] [place] [phone] 10/23/2024 1:45 PM CAN INTAKE WORKER Appointment [address] [id number] Karla Goldberg MD [address] [place] [phone] 10/24/2024 11:30 AM CAN INTAKE WORKER Office Visit [facility] Ear Nose and Thro[facility] Head Neck S[facility] [address] [place] [address] Chris Flores MD [address] [place] [address] 10/24/2024 1:45 PM CAN INTAKE WORKER Appointment [address] [id number] Karla Goldberg MD [address] [place] [phone] 10/25/2024 1:45 PM CAN INTAKE WORKER Appointment [address] [id number] Karla Goldberg MD [address] [place] [phone] 10/26/2024 1:45 PM CAN INTAKE WORKER Appointment [address] [id number] Karla Goldberg MD [address] [place] [phone] 10/27/2024 1:45 PM CAN INTAKE WORKER Appointment [address] [id number] Karla Goldberg MD [address] [place] [phone] 10/30/2024 1:45 PM CDT Appointment [address] [address] Karla Goldberg MD [address] [place] [phone] 10/31/2024 1:45 PM CDT Appointment [address] [id number] Karla Goldberg MD [address] [place] [phone] 11/01/2024 1:45 PM CDT Appointment [address] [id number] Karla Goldberg MD [address] [place] [phone] 11/02/2024 1:45 PM CDT Appointment [address] [id number] Karla Goldberg MD [address] [place] [phone] 11/03/2024 1:45 PM CDT Appointment [address] [id number] Karla Goldberg MD [address] [place] [phone] 11/06/2024 1:45 PM CDT Appointment [address] [id number] Karla Goldberg MD [address] [place] [phone] 11/07/2024 1:45 PM CDT Appointment [address] [id number] Karla Goldberg MD [address] [place] [phone] 11/08/2024 1:45 PM CDT Appointment [address] [id number] Karla Goldberg MD [address] [place] [phone] 11/09/2024 1:45 PM CDT Appointment [address] [id number] Karla Goldberg MD [address] [place] [phone] 11/10/2024 1:45 PM CDT Appointment [address] [id number] Karla Goldberg MD [address] [place] [phone] 11/13/2024 1:45 PM CDT Appointment [address] [id number] Karla Goldberg MD [address] [place] [phone] 11/14/2024 1:45 PM CDT Appointment [address] [id number] Karla Goldberg MD [address] [place] [phone] 11/15/2024 12:45 PM CDT Appointment [address] [id number] Karla Goldberg MD [address] [place] [phone] 11/16/2024 12:45 PM CDT Appointment [address] [id number] Karla Goldberg MD [address] [place] [phone] 11/17/2024 1:45 PM CDT Appointment [address] [id number] Karla Goldberg MD [address] [place] [phone] 11/20/2024 1:45 PM CDT Appointment [address] [id number] Karla Goldberg MD [address] [place] [phone] 11/21/2024 1:45 PM CDT Appointment [address] [id number] Karla Goldberg MD [address] [place] [phone] 11/22/2024 1:45 PM CDT Appointment [address] [id number] Karla Goldberg MD [address] [place] [phone] 11/23/2024 1:45 PM CDT Appointment [address] [id number] Karla Goldberg MD [address] [place] [phone] 11/24/2024 1:45 PM CDT Appointment [address] [id number] Karla Goldberg MD [address] [place] [phone] 11/27/2024 1:45 PM CDT Appointment [address] [id number] Karla Goldberg MD [address] [place] [phone] 11/28/2024 1:45 PM CDT Appointment [address] [id number] Karla Goldberg MD [address] [place] [phone] documented as of this encounter Visit Diagnoses Not on filedocumented in this encounter Additional Health Concerns Infection Onset Date Last Indicated Resolved Time Respiratory Syncytial Virus (RSV) 09/14/2024 025 10/12/2024 1:16 AM CAN INTAKE WORKER Assessment Noted Time PHQ-9 Depression Total Score: 1 04/20/20 24 11:16 PM CDT documented as of this encounter
--- OUTSIDE RECORDS SUMMARY | 2024-10-14 10:36 | XMS_ITS | Continuity of Care Document ---
Author Organization [facility] Address [address] [id number] [address] Phone Care Team Providers Care Visual Inspector Name Role Phone Camila Schaeffer DDS Unavailable [...] Diagnoses Date Provider Providers Copied on Encounter [facility], [id number] [facility] [place], [id number], [place] tel:[phone] [facility] Encounter for dental exam and cleaning w/o abnormal findings 3 Laury Jensen. [address] [facility] [place], [id number] , [place]. tel:[phone] Referring Provider: Camila Schaeffer, [address] [place], [address] . tel:[phone] OFFICE/OUTPA TIENT VISIT, [facility], [id number]- [place], [id number], [place] tel:[phone] [facility] Hypertension (chief complaint)Hea dache (chief complaint) Hypertensive emergencyRecurren t headache 3 Mike Wolf. [address] [place], [place], [id number] , [place]. tel:[phone] Referring Provider: Maryann Mckeon, [address] [place], [address] . tel:[phone] [facility], [id number]- [place], [id number], [place] tel:[phone] [facility] Encounter for dental exam and cleaning w/o abnormal findings 3 Laury Jensen. [address] [place], [place], [id number] , [place]. tel:[phone] Referring Provider: Camila Schaeffer, [address] [place], [address] . tel:[phone] Family History Family Member Type Diagnosis Age At Onset No Information Payers Payer name Insurance type Covered constitution party ID douglsa mccloud(s) D Medicaid [id number] Social History Type Description Quantity Date Captured [...]
--- OUTSIDE RECORDS SUMMARY | 2024-10-14 10:36 | XMS_ITS | Encounter Summary ---
Author Organization [facility] Address [address] [place] [address] Care Team Providers Care Business Office Manager Name Role Phone Unavailable Primary Care Provider Unavailabl e Encounter Details Date Type Department Care Team (Late Contact Info) Description 09/20/2024 External Device Data STL ABSTRACTION Provider, [...] on file Legal Sex Female 1:37 AM HEADER SET UP OPERATOR Gender Identity Not on file Sexual Orientation Not on file documented as of this encounter Plan of Treatment Upcoming Encounters Date Type Department Care Team (Late Contact Info) Description 10/16/2024 11:00 AM HEADER SET UP OPERATOR Appointment [facility] Oncology Infusion Cancer Center [address] [facility] [address] [place] [address] Rashmi Dumont MD [address] [facility] [address] [place] [address] [facility] Oncology, Infusion 8 10/16/2024 1:45 PM HEADER SET UP OPERATOR Appointment [address] [address] Karla Goldberg MD [address] [place] [phone] 10/17/2024 1:45 PM HEADER SET UP OPERATOR Appointment [address] [address] Karla Goldberg MD [address] [place] [phone] 10/18/2024 1:45 PM HEADER SET UP OPERATOR Appointment [address] [address] Karla Goldberg MD [address] [place] [phone] 10/19/2024 1:45 PM HEADER SET UP OPERATOR Appointment [address] [address] Karla Goldberg MD [address] [place] [phone] 10/20/2024 1:45 PM HEADER SET UP OPERATOR Appointment [address] [address] Karla Goldberg MD [address] [place] [phone] 10/23/2024 1:45 PM HEADER SET UP OPERATOR Appointment [address] [address] Karla Goldberg MD [address] [place] [phone] 10/24/2024 11:30 AM HEADER SET UP OPERATOR Office Visit [facility] Ear Nose and Throat Head Neck SGF [address] [place] [address] Chris Flores MD [address] [place] [address] 10/24/2024 1:45 PM HEADER SET UP OPERATOR Appointment [address] [id number] Karla Goldberg MD [address] [place] [phone] 10/25/2024 1:45 PM HEADER SET UP OPERATOR Appointment [address] [address] Karla Goldberg MD [address] [place] [phone] 10/26/2024 1:45 PM HEADER SET UP OPERATOR Appointment [address] [address] Karla Goldberg MD [address] [place] [phone] 10/27/2024 1:45 PM HEADER SET UP OPERATOR Appointment [address] [address] Karla Godlberg MD [address] [place] [phone] 10/30/2024 1:45 PM CDT Appointment [address] [address] Karla Goldberg MD [address] [place] [phone] 10/31/2024 1:45 PM CDT Appointment [address] [address] Karla Goldberg MD [address] [place] [phone] 11/01/2024 1:45 PM CDT Appointment [address] [address] Karla Goldberg MD [address] [place] [phone] 11/02/2024 1:45 PM CDT Appointment [address] [address] Karla Goldberg MD [address] [place] [phone] 11/03/2024 1:45 PM CDT Appointment [address] [address] Karla Goldberg MD [address] [place] [phone] 11/06/2024 1:45 PM CDT Appointment [address] [address] Karla Goldberg MD [address] [place] [phone] 11/07/2024 1:45 PM CDT Appointment [address] [id number] Karla Goldberg MD [address] [place] [phone] 11/08/2024 1:45 PM CDT Appointment [address] [address] Karla Goldberg MD [address] [place] [phone] 11/09/2024 1:45 PM CDT Appointment [address] [address] Karla oGldberg MD [address] [place] [phone] 11/10/2024 1:45 PM CDT Appointment [address] [address] Karla Goldberg MD [address] [place] [phone] 11/13/2024 1:45 PM CDT Appointment [address] [address] Karla Goldberg MD [address] [place] [phone] 11/14/2024 1:45 PM CDT Appointment [address] [address] Karla Goldberg MD [address] [place] [phone] 11/15/2024 12:45 PM CDT Appointment [address] [address] Karla Goldberg MD [address] [place] [phone] 11/16/2024 12:45 PM CDT Appointment [address] [address] Karla Goldberg MD [address] [place] [phone] 11/17/2024 1:45 PM CDT Appointment [address] [address] Karla Goldberg MD [address] [place] [phone] 11/20/2024 1:45 PM CDT Appointment [address] [address] Karla Goldberg MD [address] [place] [phone] 11/21/2024 1:45 PM CDT Appointment [address] [address] Karla Goldberg MD [address] [place] [phone] 11/22/2024 1:45 PM CDT Appointment [address] [address] Karla Goldberg MD [address] [place] [phone] 11/23/2024 1:45 PM CDT Appointment [address] [address] Karla Goldberg MD [address] [place] [phone] 11/24/2024 1:45 PM CDT Appointment [address] [address] Karla Goldberg MD [address] [place] [phone] 11/27/2024 1:45 PM CDT Appointment [address] [address] Karla Goldberg MD [address] [place] [phone] 11/28/2024 1:45 PM CDT Appointment [address] [address] Karla Goldberg MD [address] [place] [phone] documented as of this encounter Visit Diagnoses Not on filedocumented in this encounter Additional Health Concerns Infection Onset Date Last Indicated Resolved Time Respiratory Syncytial Virus (RSV) 09/14/2024 025 10/12/2024 1:16 AM HEADER SET UP OPERATOR Assessment Noted Time PHQ-9 Depression Total Score: 1 04/20/20 24 11:16 PM CDT documented as of this encounter
--- OUTSIDE RECORDS SUMMARY | 2024-10-14 10:36 | XMS_ITS | Encounter Summary ---
Author Organization [facility] Address [address] [place] [address] Care Team Providers Care Home Insurance Agent Name Role Phone Anu Thompson DO Primary Care Provider Reason for Visit * Auth/Cert (Routine) Specialty Diagnoses / Procedures Referred By Celso blanton Referred To Contact Emergency Medicine [facility] Emergency Department [address] [place] [phone] Phone: tel: fax: Referral ID Status Reason Start Date Expiration Date Visits Re quested Visits Authorized [id number] 1 1 Encounter Details Date Type Department Care Team (Late st Contact Info) Description 09/17/2024 11:47 AM [employer] Anesthesia Event [facility] Operating Room [address] [place] [address] Kendall Jones MD [address] [place] [address] Brad Block MD [facility] [place] [address] Anesthesia Record Procedure Summary Procedure Name Responsible Anesthesiologist Anesthesia Start Time Anesthesia Stop Time TEETH MULTIPLE EXTRACTION (Mouth) Kendall Jones MD 09/17/24 1147 09/17/24 1337 Events Date Time Event Comment 09/17/2024 1129 AN Equip Check Anesthesia eq uipment and materials checked in accordance with local policy. 1147 An Start 1151 In Room This event disp lays the In Room time documented in the Surgical Log. Deleting this event will not remove it from the log but will remove it from the Grid and Graph timeline. 1151 An Start Data 1153 1156 Pre-Induction Immediate pre- induction anesthetic assessment performed. Vital signs as noted on graphic. 1157 An Induction 1206 An Intubation Patient's cuff less tracheostomy tube removed and replaced with 6.0 cuffed ETT for secure airway. 1210 Anesthesia Ready 1213 Procedure Start This event d isplays the Procedure Start time documented in the Surgical Log. Deleting this event will not remove it from the log but will remove it from the Grid and Graph timeline. 1214 Throat Pack Placed 1310 Procedure Stop This event di splays the Procedure Stop time documented in the Surgical Log. Deleting this event will not remove it from the log but will remove it from the Grid and Graph timeline. 1322 An Extubation Emergence unev entful Awake, spontaneous respirations. Adequate muscle strength demonstrated Adequate tidal volume. Orapharynx suctioned. Extubated with positive pressure ventilation. 6.0 Cuffed ETT removed and original cuffless Tracheostomy tube replaced 1328 Out of Room This event disp lays the Out of Room time documented in the Surgical Log. Deleting this event will not remove it from the log but will remove it from the Grid and Graph timeline. 1329 an stop data 1337 An Stop 1337 Hand-off to Receiving Clinic [email or web address] Meds Name Total rocuronium (ZEMURON) 10mg/mL injection 5 0 mg fentaNYL (SUBLIMAZE) PF 50??mcg/mL injec tion 100 mcg midazolam (VERSED) 1??mg/mL injection 2 mg ceFAZolin (ANCEF) 1000 mg vial 2,000 mg ePHEDrine 50 mg/mL injection 20 mg phenylephrine 100 mcg/mL injection 100 m cg dexamethasone (DECADRON) 4 mg/mL injecti on 4 mg ondansetron (ZOFRAN) 4 mg/2 mL injection 4 mg 4 mg sugammadex (BRIDION) 100 mg/mL injection 200 mg lactated ringers infusion 700 mL * Agents Name Air O2 O2 * Blood No blood administrations on file. Lines, Drains, and Airways Type Details Placement Removal Enterostomy Tube Yes; PEG (percutaneo us endoscopic gastrostomy); left upper quadrant 09/13/242150 by Endotracheal Airway Type: tracheostomy t ube (thangley); Size: 6 09/13/241918 by Sana Samuel RCP Adult Midline Catheter Present on Admiss ion: No; Orientation: Right:; Location: basilic vein; Size: (18G 8cm [id number]); Insertion Attempts: 1; Patient Tolerance: tolerated well, appears comfortable; Pain Prevention: distraction; Power Injectable Compatible: Yes 09/14/24 1637 by Maricarmen Spencer RN 09/28/24 1650 by Debbie Kirkpatrick RN Endotracheal Airway Type: Oral, ETT; Cuf f Pressure: minimal occluding volume; Size: 6; Site: tracheostomy; Attempts: 1; Secured: secured with tape; Verification: Auscultated bilateral breath sounds, Equal chest movement, Continuous waveform capnography 09/17/24 1206 by Raghu Ruvalcaba, AA 09/17/24 1322 by Raghu Ruvalcaba, AA Incision 09/17/24; 1309; surgical incision; other (comment); gum; 09/29/24; 0522 09/17/24 1309 by Marisa Man RN 09/29/24 0522 by PROVIDER, DISCHARGE PATIENT documented in this encounter Social History Tobacco [...] on file Legal Sex Female 1:37 AM [employer] Gender Identity Not on file Sexual Orientation Not on file documented as of this encounter OR Notes * Anesthesia Postprocedure Evaluation - Kendall Jones MD - 09/17/2024 3:42 PM CST Post Anesthesia Evaluation Vitals: Vitals Value Taken Time BP 85/70 09/17/24 1436 Temp 36.5 ??C 09/17/24 1436 Resp 14 09/17/24 1436 SpO2 92 % 09/17/24 1436 Pulse 65 09/17/24 1436 Heart Rate 67 bpm 09/17/24 1425 Pain Rating: Pain Rating: Rest: 7 (09/17/24 0956) Presence of Pain: resting quietly (09/17/24 0910) Anesthesia Post Evaluation Patient location during evaluation: PACU Patient participation: patient was able to participate in the post op evaluation Level of consciousness: 1 = not alert but arousable by minor stimulation to obey, answer or respond(age appropriate) Pain management: adequate Airway patency: patent Nausea or Vomiting: none Cardiovascular status: regular rate and rhythm Respiratory status: no respiratory symptoms Hydration status: well hydrated No notable events documented. Kendall Jones MD [employer] * Anesthesia Handoff - Raghu Ruvalcaba AA - 09/17/2024 1:37 PM CST Post-Anesthetic transfer of care report elements to appropriate post-anesthesia recovery environment completed in accordance with procedure. I completed my handoff to the receiving nurse during which we: 1. Identified the patient 2. Identified the responsible provider 3. Reviewed the pertinent medical history 4. Discussed the surgical course 5. Reviewed intra-op anesthesia management and issues during anesthesia 6. Set expectations for post-procedure period 7. Orders as necessary and appropriate for continuation of care are present in Epic. 8. Allowed opportunity for questions and acknowledgement of understanding. 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 [employer] * Anesthesia Preprocedure Evaluation - Kendall Jones MD - 09/17/2024 11:36 AM CST Relevant Problems CARDIOVASCULAR (+) CAD (coronary atherosclerotic disease) (+) Essential hypertension (+) Hypertensive emergency RENAL (+) RADHA (acute kidney injury) (+) Acute renal failure superimposed on chronic kidney disease (+) CKD (chronic kidney disease) PULMONARY (+) COPD (chronic obstructive pulmonary disease) (CMS/HCC) (+) Community acquired pneumonia of right lower lobe of lung (+) Multifocal pneumonia (+) Pneumonia due to respiratory syncytial virus (RSV) Anesthesia Evaluation Airway Mallampati: II TM distance: >3 FB Neck ROM: full Comment: treacheostomy Dental Comment: Missing most teeth Pulmonary breath sounds clear to auscultation (+) COPD Cardiovascular (+) hypertension, CAD Rhythm: regular Rate: normal Neuro/Psych (+) headaches, psychiatric history GI/Hepatic/Renal (+) chronic renal disease Endo/Other - negative ROS Abdominal Anesthesia History Anesthesia Plan ASA Final: 3 General Inhalational and Intravenous induction Tracheostomy airway maintenance NPO status > 8 hours Anesthetic plan and risks discussed with Patient. Plan discussed with Child Care Leader. Post-op Pain Control Plan to use IV or IM medication for post-op pain control. Plan for postoperative opioid use Smoking Compliance patient did not smoke on day of surgery [employer] documented in this encounter Plan of Treatment Upcoming Encounters Date Type Department Care Team (Late st Contact Info) Description 10/16/2024 11:00 AM [employer]CE Appointment [facility] Oncology [facility] [place] [address] [facility] [address] [place] [address] Rashmi Dumont MD [address] [facility] [address] [place] [address] [facility] Oncology, Infusion 8 10/16/2024 1:45 PM [employer]TE[employer] Appointment [facility] Radiation Oncology [facility] [place] [address] [facility] [address] [place] [address] Karla Goldberg MD [address] [place] [address] 10/17/2024 1:45 PM [employer] Appointment [address] [address] Karla Goldberg MD [address] [place] [phone] 10/18/2024 1:45 PM [employer] Appointment [address] [phone] Karla Goldberg MD [address] [place] [phone] 10/19/2024 1:45 PM [employer] Appointment [address] [phone] Karla Goldberg MD [address] [place] [phone] 10/20/2024 1:45 PM [employer] Appointment [address] [phone] Karla Goldberg MD [address] [place] [phone] 10/23/2024 1:45 PM [employer] Appointment [address] [phone] Karla Goldberg MD [address] [place] [phone] 10/24/2024 11:30 AM [employer] Office Visit [facility] [address] [place] [address] Chris Flores MD [address] [address] 10/24/2024 1:45 PM [employer]TE[employer]NCE Appointment [address] [place] [address] Karla Goldberg MD [address] [place] [phone] 10/25/2024 1:45 PM [employer] Appointment [address] [address] Karla Goldberg MD [address] [place] [phone] 10/26/2024 1:45 PM [employer]PER[employer]TE[employer]NCE Appointment [address] [phone] Karla Goldberg MD [address] [place] [phone] 10/27/2024 1:45 PM [employer] Appointment [address] [phone] Karla Goldberg MD [address] [place] [phone] 10/30/2024 1:45 PM CDT Appointment [address] [place] [address] Karla Goldberg MD [address] [place] [phone] 10/31/2024 1:45 PM CDT Appointment [address] [address] Karla Goldberg MD [address] [place] [phone] 11/01/2024 1:45 PM CDT Appointment [address] [address] Karla Goldberg MD [address] [place] [phone] 11/02/2024 1:45 PM CDT Appointment [address] [address] Karla Goldberg MD [address] [place] [phone] 11/03/2024 1:45 PM CDT Appointment [address] [address] Karla Goldberg MD [address] [place] [phone] 11/06/2024 1:45 PM CDT Appointment [address] [address] Karla Goldberg MD [address] [place] [phone] 11/07/2024 1:45 PM CDT Appointment [address] [address] Karla Goldberg MD [address] [place] [phone] 11/08/2024 1:45 PM CDT Appointment [address] [phone] Karla Goldberg MD [address] [place] [phone] 11/09/2024 1:45 PM CDT Appointment [address] [phone] Karla Goldberg MD [address] [place] [phone] 11/10/2024 1:45 PM CDT Appointment [address] [phone] Karla Goldberg MD [address] [place] [phone] 11/13/2024 1:45 PM CDT Appointment [address] [phone] Karla Goldberg MD [address] [place] [phone] 11/14/2024 1:45 PM CDT Appointment [address] [phone] Karla Goldberg MD [address] [place] [phone] 11/15/2024 12:45 PM CDT Appointment [address] [phone] Karla Goldberg MD [address] [place] [phone] 11/16/2024 12:45 PM CDT Appointment [address] [phone] Karla Goldberg MD [address] [place] [phone] 11/17/2024 1:45 PM CDT Appointment [address] [phone] Karla Goldberg MD [address] [place] [phone] 11/20/2024 1:45 PM CDT Appointment [address] [phone] Karla Goldberg MD [address] [place] [phone] 11/21/2024 1:45 PM CDT Appointment [address] [phone] Karla Goldberg MD [address] [place] [phone] 11/22/2024 1:45 PM CDT [address]ment [address] [place] [address] Karla Goldberg MD [address] [place] [phone] 11/23/2024 1:45 PM CDT Appointment [address] [phone] Karla Goldberg MD [address] [place] [phone] 11/24/2024 1:45 PM CDT Appointment [address] [phone] Karla Goldberg MD [address] [place] [phone] 11/27/2024 1:45 PM CDT Appointment [address] [phone] Karla Goldberg MD [address] [place] [phone] 11/28/2024 1:45 PM CDT Appointment [address] [phone] Karla Goldberg MD [address] [place] [phone] documented as of this encounter Visit Diagnoses Not on filedocumented in this encounter Administered Medications Inactive Administered Medications - up to 3 most recent administrations Medication Order MAR Action Action Date Dose Rate Site ceFAZolin (ANCEF,KEFZOL) vial IV, INTRA-PROCEDURE PRN, Starting on 09/17/24 at 1205, Until 09/17/24 at 1337, Routine, Anesthesia Intra-op Given 09/17/2024 12:05 PM [employer] 2,000 mg dexAMETHasone (DECADRON) injection IV, INTRA-PROCEDURE PRN, Starting on 09/17/24 at 1305, Until 09/17/24 at 1337, Routine, Anesthesia Intra-op Given 09/17/2024 1:05 PM [employer] 4 mg ePHEDrine injection IV, INTRA-PROCEDURE PRN, Starting on 09/17/24 at 1251, Until 09/17/24 at 1337, Routine, Anesthesia Intra-op Given 09/17/2024 12:51 PM [employer]TE[employer]NCE 20 mg fentaNYL PF (SUBLIMAZE) 50 mcg/mL injection IV, INTRA-PROCEDURE PRN, Starting on 09/17/24 at 1202, Until 09/17/24 at 1337, Routine, Anesthesia Intra-op Given 09/17/2024 12:39 PM [employer]TENANCE 50 mcg Given 09/17/2024 12:02 PM SUPER[employer]TENANCE 50 mcg lactated ringers infusion IV, INTRA-PROCEDURE CONTINUOUS PRN, Starting on 09/17/24 at 1147, Until 09/17/24 at 1337, Routine, Anesthesia Intra-op New Bag 09/17/2024 11:47 AM [employer]INTE[employer]NCE midazolam (VERSED) injection IV, INTRA-PROCEDURE PRN, Starting on 09/17/24 at 1150, Until 09/17/24 at 1337, Routine, Anesthesia Intra-op Given 09/17/2024 11:50 AM [employer]TE[employer]NCE 2 mg ondansetron (ZOFRAN) 4 mg/2 mL injection 4 mg 4 mg, IV, EVERY 6 HOURS PRN, Starting on Wed09/13/24 at 2055, Until Nataliia 09/28/24 at 1932, Nausea/Emesis, Routine New Bag 09/17/2024 1:05 PM [employer]TE[employer]NCE 4 mg Given 09/14/2024 6:54 PM [employer]TE[employer]NCE 4 mg phenylephrine syringe IV, INTRA-PROCEDURE PRN, Starting on 09/17/24 at 1251, Until 09/17/24 at 1337, Routine, Anesthesia Intra-op Given 09/17/2024 12:51 PM [employer]TE[employer]NCE 100 mcg rocuronium injection IV, INTRA-PROCEDURE PRN, Starting on 09/17/24 at 1202, Until 09/17/24 at 1337, Routine, Anesthesia Intra-op Given 09/17/2024 12:02 PM [employer]TE[employer] 50 mg sugammadex (BRIDION) 100 mg/mL injection IV, INTRA-PROCEDURE PRN, Starting on 09/17/24 at 1311, Until 09/17/24 at 1337, Routine, Anesthesia Intra-op Given 09/17/2024 1:11 PM [employer]TE[employer] 200 mg documented in this encounter Additional Health Concerns Infection Onset Date Last Indicated Resolved Time Respiratory Syncytial Virus (RSV) 09/14/2024 025 10/12/2024 1:16 AM [employer] Assessment Noted Time PHQ-9 Depression Total Score: 1 04/20/20 24 11:16 PM CDT documented as of this encounter Care Teams Home Insurance Agent Relationship Specialty Start Date End Date Anu Thompson DO [address] [place] [address] PCP - General Family Practice 07/21/23 09/17/24 documented as of this encounter
--- OUTSIDE RECORDS SUMMARY | 2024-10-14 10:36 | XMS_ITS | Encounter Summary ---
Author Organization [facility] Address [address] [place] [address] Care Team Providers Care Research Microbiologist Name Role Phone Anu Thompson DO Primary Care Provider Encounter Details Date Type Department Care Team (Late Contact Info) Description 09/13/2024 Orders Only [facility] Cancer and Hematology [place] [address] [facility] [address] [place] [address] Rashmi Dumont MD [address] [place] [address] Laryngeal squamous cell carcinoma (CMS/HCC) [...] file Legal Sex Female 1:37 AM MACHINE III COREMAKER Gender Identity Not on file Sexual Orientation Not on file documented as of this encounter Plan of Treatment Upcoming Encounters Date Type Department Care Team (Late Contact Info) Description 10/16/2024 11:00 AM MACHINE III COREMAKER Appointment [facility] [address] [facility] [address] [place] [address] Rashmi Dumont MD [facility] [address] [place] [phone] 173- [facility] Oncology, Infusion 8 10/16/2024 1:45 PM MACHINE III COREMAKER Appointment [facility] [address] [place] [address] [address] [place] [address] Karla Goldberg MD [address] [place] [phone] 10/17/2024 1:45 PM MACHINE III COREMAKER Appointment [address] [phone] Karla Goldberg MD [address] [place] [phone] 10/18/2024 1:45 PM MACHINE III COREMAKER Appointment [address] [phone] Karla Goldberg MD [address] [place] [phone] 10/19/2024 1:45 PM MACHINE III COREMAKER Appointment [address] [phone] Karla Goldberg MD [address] [place] [phone] 10/20/2024 1:45 PM MACHINE III COREMAKER Appointment [address] [phone] Karla Goldberg MD [address] [place] [phone] 10/23/2024 1:45 PM MACHINE III COREMAKER Appointment [address] [phone] Karla Goldberg MD [address] [place] [phone] 10/24/2024 11:30 AM MACHINE III COREMAKER Office Visit [facility]3] Ear Nose and Throat Head Neck [facility] [address] [place] [address] Chris Flores MD [address] [place] [phone]- 10/24/2024 1:45 PM MACHINE III COREMAKER Appointment [address] [phone] Karla Goldberg MD [address] [place] [phone] 10/25/2024 1:45 PM MACHINE III COREMAKER Appointment [address] [phone] Karla Goldberg MD [address] [place] [phone] 10/26/2024 1:45 PM MACHINE III COREMAKER Appointment [address] [phone] Karla Goldberg MD [address] [place] [phone] 10/27/2024 1:45 PM MACHINE III COREMAKER Appointment [address] [phone] Karla Goldberg MD [address] [place] [phone] 10/30/2024 1:45 PM CDT Appointment [address] [phone] Karla Goldberg MD [address] [place] [phone] 10/31/2024 1:45 PM CDT Appointment [address] [phone] Karla Goldberg MD [address] [place] [phone] 11/01/2024 1:45 PM CDT Appointment [address] [phone] Karla Goldberg MD [address] [place] [phone] 11/02/2024 1:45 PM CDT Appointment [address] [phone] Karla Goldberg MD [address] [place] [phone] 11/03/2024 1:45 PM CDT Appointment [address] [phone] Karla Goldberg MD [address] [place] [phone] 11/06/2024 1:45 PM CDT Appointment [address] [phone] Karla Goldberg MD [address] [place] [phone] 11/07/2024 1:45 PM CDT Appointment [address] [phone] Karla Goldberg MD [address] [place] [phone] 11/08/2024 1:45 PM CDT Appointment [address] [phone] Karla Goldberg MD [address] [place] [phone] 11/09/2024 1:45 PM CDT Appointment [address] [phone] Karla Goldberg MD [address] [place] [phone] 11/10/2024 1:45 PM CDT Appointment [address] [phone] Karla Goldberg MD [address] [place] [phone] 11/13/2024 1:45 PM CDT Appointment [address] [phone] Karla Goldberg MD [address] [place] [phone] 11/14/2024 1:45 PM CDT Appointment [address] [phone] Karla Goldberg MD [address] [place] [phone] 11/15/2024 12:45 PM CDT Appointment [address] [phone] Karla Goldberg MD [address] [place] [phone] 11/16/2024 12:45 PM CDT Appointment [address] [phone] Karla Goldberg MD [address] [place] [phone] 11/17/2024 1:45 PM CDT Appointment [address] [phone] Karla Goldberg MD [address] [place] [phone] 11/20/2024 1:45 PM CDT Appointment [address] [phone] Karla Goldberg MD [address] [place] [phone] 11/21/2024 1:45 PM CDT Appointment [address] [phone] Karla Goldberg MD [address] [place] [phone] 11/22/2024 1:45 PM CDT Appointment [address] [phone] Karla Goldberg MD [address] [place] [phone] 11/23/2024 1:45 PM CDT Appointment [address] [phone] Karla Goldberg MD [address] [place] [phone] 11/24/2024 1:45 PM CDT Appointment [address] [phone] Karla Goldberg MD [address] [place] [phone] 11/27/2024 1:45 PM CDT Appointment [address] [phone] Karla Goldberg MD [address] [place] [phone] 11/28/2024 1:45 PM CDT Appointment [facility] Radiation [facility] [address] [facility] [address] [place] [address] Karla Goldberg MD [address]54 [place] [address] documented as of this encounter Procedures Procedure Name Priority Date/Time Associated Diagnosis Comments CBC WITH DIFFERENTIAL Stat 09/13/2024 1:37 PM MACHINE III COREMAKER Laryngeal squamous cell carcinoma (CMS/HCC) COMPREHENSIVE METABOLIC PANEL Stat 09/13/2024 1:37 PM MACHINE III COREMAKER Laryngeal squamous cell carcinoma (CMS/HCC) documented in this encounter Results * (ABNORMAL) COMPREHENSIVE METABOLIC PANEL (09/13/2024 1:37 PM MACHINE III COREMAKER) SODIUM 136 136 - 145 mmol/L 09/13/2024 3:03 PM [facility] [place] POTASSIUM 4.1 3.5 - 5.1 mmol/L 09/13/2024 3:03 PM [facility] [place] CHLORIDE 105 98 - 107 mmol/L 09/13/2024 3:03 PM [facility] [place] CO2 19(L) 22 - 29 mmol/L 09/13/2024 3:03 PM [facility] [place] CALCIUM 9.6 8.6 - 10.0 mg/dL 09/13/2024 3:03 PM [facility] [place] BUN 29(H) 6 - 20 mg/dL 09/13/2024 3:03 PM [facility] [place] CREATININE 1.56(H) 0.51 - 0.95 mg/dL 09/13/2024 3:03 PM [facility] [place] GLUCOSE 140(H) 74 - 99 mg/dL 09/13/2024 3:03 PM [facility] [place] TOTAL PROTEIN 6.8 6.4 - 8.3 g/dL 09/13/2024 3:03 PM [facility] [place] ALBUMIN 3.4(L) 3.5 - 5.2 g/dL 09/13/2024 3:03 PM [facility] [place] BILIRUBIN TOTAL 0.3 0.2 - 1.0 mg/dL 09/13/2024 3:03 PM [facility] [place] ALKALINE PHOSPHATASE 73 35 - 104 U/L 09/13/2024 3:03 PM [facility] [place] AST 31 <=33 U/L 09/13/2024 3:03 PM [facility] [place] ALT 23 <=33 U/L 09/13/2024 3:03 PM [facility] [place] GFR 40(L) >=60 mL/min/1.7 3 sq meter 09/13/2024 3:03 PM [facility] [place] Comment:eGFR calculated with 2020 CKD-EPI equation. Vegetarian diet, extremely high or low muscle mass, and may affect results. Cystatin C with Glomerular Filtration Rate is a suitable alternative for these patients. ANION GAP 12 9 - 20 mmol/L 09/13/2024 3:03 PM [facility] [place] Blood Venipuncture / Unknown 09/13/2024 1:37 PM MACHINE III COREMAKER 09/13/2024 2:06 PM MACHINE III COREMAKER us Rashmi Dumont MD CHEMISTRY ORDERABLES Yareli l Result [facility] [place] CLIA# [id number] [id number] [place] [address] * CBC WITH DIFFERENTIAL (09/13/2024 1:37 PM MACHINE III COREMAKER) WBC 7.4 4.8 - 10.8 K/uL 09/13/2024 2:09 PM [facility] [place] RBC 4.61 4.20 - 5.40 M/uL 09/13/2024 2:09 PM [facility] [place] HEMOGLOBIN 13.8 12.0 - 16.0 g/dL 09/13/2024 2:09 PM [facility] [place] HEMATOCRIT 43.9 36.0 - 46.0 % 09/13/2024 2:09 PM [facility] [place] MCV 95.2 82.0 - 100.0 fL 09/13/2024 2:09 PM [facility] [place] MCH 29.9 27.0 - 34.0 pg 09/13/2024 2:09 PM [facility] [place] MCHC 31.4 31.0 - 37.0 g/dL 09/13/2024 2:09 PM [facility] [place] RDW 12.8 11.0 - 14.5 % 09/13/2024 2:09 PM [facility] [place] RDW-STDEV 44.9 37.0 - 54.0 fL 09/13/2024 2:09 PM [facility] [place] PLATELETS 305 140 - 440 K/uL 09/13/2024 2:09 PM [facility] [place] MPV 9.3 8.9 - 12.8 fL 09/13/2024 2:09 PM [facility] [place] NEUTROPHILS 62 42 - 75 % 09/13/2024 2:09 PM [facility] [place] LYMPHOCYTES 29 24 - 44 % 09/13/2024 2:09 PM [facility] [place] MONOCYTES 7 2 - 10 % 09/13/2024 2:09 PM [facility] [place] EOSINOPHILS 1 0 - 7 % 09/13/2024 2:09 PM [facility] [place] BASOPHILS 0 0 - 1 % 09/13/2024 2:09 PM [facility] [place] IMMATURE GRANULOCYTES 0 0 - 2 % 09/13/2024 2:09 PM [facility] [place] NEUTROPHIL ABSOLUTE 4.52 1.40 - 6.50 K/uL 09/13/2024 2:09 PM [facility] [place] LYMPHOCYTE ABSOLUTE 2.15 1.20 - 4.00 K/uL 09/13/2024 2:09 PM [facility] [place] MONOCYTE ABSOLUTE 0.54 0.10 - 0.60 K/uL 09/13/2024 2:09 PM MACHINE III COREMAKER [facility] [place] EOSINOPHIL ABSOLUTE 0.08 0.00 - 0.70 K/uL 09/13/2024 2:09 PM MACHINE III COREMAKER [facility] [place] BASOPHILS ABSOLUTE 0.03 0.00 - 0.20 K/uL 09/13/2024 2:09 PM MACHINE III COREMAKER [facility] [place] IMMATURE GRANULOCYTES ABSOLUTE 0.03 0.00 - 0.10 K/uL 09/13/2024 2:09 PM MACHINE III COREMAKER [facility] [place] Blood Venipuncture / Unknown 09/13/2024 1:37 PM MACHINE III COREMAKER 09/13/2024 2:06 PM MACHINE III COREMAKER us Rashmi Dumont MD HEMATOLOGY ORDERABLES Fin al Result [facility] [place] CLIA# [id number] [id number] [place] [address] documented in this encounter Visit Diagnoses Diagnosis Laryngeal squamous cell carcinoma (CMS/HCC) Malignant neoplasm of larynx, unspecified site documented in this encounter Additional Health Concerns Infection Onset Date Last Indicated Resolved Time R/O Respiratory 09/13/2024 09/13/2024 09/13/2024 1 0:56 PM MACHINE III COREMAKER Respiratory Syncytial Virus (RSV) 09/14/2024 025 10/12/2024 1:16 AM MACHINE III COREMAKER Assessment Noted Time PHQ-9 Depression Total Score: 1 04/20/20 24 11:16 PM CDT documented as of this encounter Care Teams Research Microbiologist Relationship Specialty Start Date End Date Anu Thompson DO [address] [place] [address] PCP - General Family Practice 07/21/23 09/17/24 documented as of this encounter
--- OUTSIDE RECORDS SUMMARY | 2024-10-14 10:36 | XMS_ITS | Encounter Summary ---
Author Organization [facility] Address [address] [place] [address] Care Team Providers Care Compliance Specialist Name Role Phone Unavailable Primary Care Provider Unavailabl e Reason for Visit * Auth/Cert (Routine) Specialty Diagnoses / Procedures Referred By Celso blanton Referred To Contact Emergency Medicine [facility] Emergency Department [address] [place] [address] Phone: tel: fax: Referral ID Status Reason Start Date Expiration Date Visits Re quested Visits Authorized [id number] 1 Encounter Details Date Type Department Care Team (Latest Contact Info) Description 09/18/2024 8:16 AM CARBON SEQUESTRATION PLANT OPERATOR - 09/18/2024 11:59 PM CARB[employer] SE[employer]ATION PLANT OPERATOR Hospital Encounter [facility] Echo [address] [place] [address] Wilfredo Harmon MD [address] [place] [address] Discharge Disposition: Home or Self Care Social [...] on file Legal Sex Female 1:37 AM CARBON SEQUESTRATION PLANT OPERATOR Gender Identity Not on file Sexual Orientation Not on file documented as of this encounter Medications at Time of Discharge naloxone (NARCAN) 4 mg/spray [place], Non-Aerosol EMERGENCY USE ONLY: Administer 1 spray (4 mg) in one nostril one time. May repeat in alternating nostrils every 2-3 min until responsive or EMS arrives. 2 Each 3 09/28/2024 5:11 PM [employer] SE[employer] PLANT OPERATOR 5 trach supplies Surgery Date: 09/17/2025 Length [...] 14 days. 28 Tablet 09/28/2024 5:11 PM [employer] SE[employer] PLANT OPERATOR 5 10/12/19 25 ondansetron (ZOFRAN ODT) 8 [...] st Contact Info) Description 10/16/2024 11:00 AM CARB[employer] SE[employer]STRATION PLANT OPERATOR Appointment [facility] On[facility] [address] [facility] [address] [place] [address] Rashmi Dumont MD [address] [facility] [address] [place] [address] Sprg Oncology, Infusion 8 10/16/2024 1:45 PM CARB[employer] SE[employer]ATION PLANT OPERATOR Appointment [facility] Radiation Oncology [facility] [address] [facility] [address] [place] [address] Karla Goldberg MD [address] [place] [address] 10/17/2024 1:45 PM [employer] SE[employer] PLANT OPERATOR Appointment [address] [phone] Karla Goldberg MD [address] [place] [phone] 10/18/2024 1:45 PM CAR[employer] SE[employer]ANT OPERATOR Appointment [address] [phone] Karla Goldberg MD [address] [place] [phone] 10/19/2024 1:45 PM CAR[employer] SE[employer] PLANT OPERATOR Appointment [address] [phone] Karla Goldberg MD [address] [place] [phone] 10/20/2024 1:45 PM [employer] SE[employer] PLANT OPERATOR Appointment [address] [phone] Karla Goldberg MD [address] [place] [phone] 10/23/2024 1:45 PM [employer] SE[employer] OPERATOR Appointment [address] [phone] Karla Goldberg MD [address] [place] [phone] 10/24/2024 11:30 AM CARB[employer] SE[employer]STRATION PLANT OPERATOR Office Visit [facility] Ear Nose and Throat Head Neck [facility] [address] [place] [address] Chris Flores MD [address] [address] 10/24/2024 1:45 PM [employer] SE[employer]ANT OPERATOR Appointment [address] [place] [address] Karla Goldberg MD [address] [place] [phone] 10/25/2024 1:45 PM CAR[employer] SE[employer] PLANT OPERATOR Appointment [address] [phone] Karla Goldberg MD [address] [place] [phone] 10/26/2024 1:45 PM CAR[employer] SE[employer] PLANT OPERATOR Appointment [address] [phone] Karla Goldberg MD [address] [place] [phone] 10/27/2024 1:45 PM CAR[employer] SE[employer]ANT OPERATOR Appointment [address] [phone] Karla Goldberg MD [address] [place] [phone] 10/30/2024 1:45 PM CDT Appointment [address] [phone] Karla Goldberg MD [address] [place] [phone] 10/31/2024 1:45 PM CDT Appointment [address] [phone] Karla Goldberg MD [address] [place] [phone] 11/01/2024 1:45 PM CDT Appointment [address] [phone] Karla Goldberg MD [address] [place] [phone] 11/02/2024 1:45 PM CDT Appointment [address] [phone] Karla Goldberg MD [address] [place] [phone] 11/03/2024 1:45 PM CDT Appointment [address] [phone] Karla Goldberg MD [address] [place] [phone] 11/06/2024 1:45 PM CDT Appointment [address] [phone] Karla Goldberg MD [address] [place] [phone] 11/07/2024 1:45 PM CDT Appointment [address] [phone] Karla Goldberg MD [address] [place] [phone] 11/08/2024 1:45 PM CDT Appointment [address] [phone] Karla Goldberg MD [address] [place] [phone] 11/09/2024 1:45 PM CDT Appointment [address] [phone] Karla Goldberg MD [address] [place] [phone] 11/10/2024 1:45 PM CDT Appointment [address] [phone] Karla Goldberg MD [address] [place] [phone] 11/13/2024 1:45 PM CDT Appointment [address] [phone] Karla Goldberg MD [address] [place] [phone] 11/14/2024 1:45 PM CDT Appointment [address] [phone] Karla Goldberg MD [address] [place] [phone] 11/15/2024 12:45 PM CDT Appointment [address] [phone] Karla Goldberg MD [address] [place] [phone] 11/16/2024 12:45 PM CDT Appointment [address] [phone] Karla Goldberg MD [address] [place] [phone] 11/17/2024 1:45 PM CDT Appointment [address] [phone] Karla Goldberg MD [address] [place] [phone] 11/20/2024 1:45 PM CDT Appointment [address] [phone] Karla Goldberg MD [address] [place] [phone] 11/21/2024 1:45 PM CDT Appointment [address] [phone] Karla Goldberg MD [address] [place] [phone] 11/22/2024 1:45 PM CDT Appointment [address] [phone] Karla Goldberg MD [address] [place] [phone] 11/23/2024 1:45 PM CDT Appointment [address] [phone] Karla Goldberg MD [address] [place] [phone] 11/24/2024 1:45 PM CDT Appointment [address] [phone] Karla Goldberg MD [address] [place] [phone] 11/27/2024 1:45 PM CDT Appointment [address] [phone] Karla Goldberg MD [address] [place] [phone] 11/28/2024 1:45 PM CDT Appointment [address] [phone] Karla Goldberg MD [address] [place] [phone] documented as of this encounter Procedures Procedure Name Priority Date/Time Associated Diagnosis Comments ECHO COMPLETE Routine 09/18/2024 11:15 AM [employer] OPERATOR documented in this encounter Visit Diagnoses Not on filedocumented in this encounter Additional Health Concerns Infection Onset Date Last Indicated Resolved Time Respiratory Syncytial Virus (RSV) 09/14/2024 025 10/12/2024 1:16 AM [employer] OPERATOR Assessment Noted Time PHQ-9 Depression Total Score: 1 04/20/20 24 11:16 PM CDT documented as of this encounter
--- OUTSIDE RECORDS SUMMARY | 2024-10-14 10:37 | XMS_ITS | Encounter Summary ---
Author Organization [facility] Address [address] [place] [address] Care Team Providers Care Land Reclamation Specialist Name Role Phone Anu Thompson DO Primary Care Provider Encounter Details Date Type Department Care Team (Late Contact Info) Description 05/29/[address] [facility] Laboratory Services [address] [place] [address] Henrik Johnson, [address] [place] [address] Social History Tobacco Use Types Packs/Day Years Used Date Smoking Tobacco: Every Day Cigarettes Smokeless Tobacco: Never Alcohol Use Standard Drinks/Week Comments No 0 (1 standard drink = 0.6 oz pur e alcohol) Feeling Safe Answer Date Recorded Are you in a relationship wi th someone who hurts you emotionally and/or physically? No 04/22/2024 Comments No Sex and Gender Information Value Date Recorded Sex Assigned at Not on file Legal Sex Female 1:37 AM DESIGN/ANIMATION INSTRUCTOR Gender Identity Not on file Sexual Orientation Not on file documented as of this encounter Plan of Treatment Upcoming Encounters Date Type Department Care Team (Late Contact Info) Description 10/16/2024 11:00 AM DESIGN/ANIMATION INSTRUCTOR Appointment [facility] [address] [facility] [address] [place] [address] Rashmi Dumont MD [address] [place] [phone] [facility] Oncology, Infusion 8 10/16/2024 1:45 PM DESIGN/ANIMATION INSTRUCTOR Appointment [address] [phone] Karla Goldberg MD [address] [place] [phone] 10/17/2024 1:45 PM DESIGN/ANIMATION INSTRUCTOR Appointment [address] [phone] Karla Goldberg MD [address] [place] [phone] 10/18/2024 1:45 PM DESIGN/ANIMATION INSTRUCTOR Appointment [address] [phone] Karla Goldberg MD [address] [place] [phone] 10/19/2024 1:45 PM DESIGN/ANIMATION INSTRUCTOR Appointment [address] [phone] Karla Goldberg MD [address] [place] [phone] 10/20/2024 1:45 PM DESIGN/ANIMATION INSTRUCTOR Appointment [address] [phone] Karla Goldberg MD [address] [place] [phone] 10/23/2024 1:45 PM DESIGN/ANIMATION INSTRUCTOR Appointment [address] [phone] Karla Goldberg MD [address] [place] [phone] 10/24/2024 11:30 AM DESIGN/ANIMATION INSTRUCTOR Office Visit [facility] ([facility]3] Ear Nose and Throat Head Neck SGF [address] [place] [address] Chris Flores MD [address] [place] [address] 10/24/2024 1:45 PM DESIGN/ANIMATION INSTRUCTOR Appointment [address] [phone] Karla Goldberg MD [address] [place] [phone] 10/25/2024 1:45 PM DESIGN/ANIMATION INSTRUCTOR Appointment [address] [phone] Karla Goldberg MD [address] [place] [phone] 10/26/2024 1:45 PM DESIGN/ANIMATION INSTRUCTOR Appointment [address] [phone] Karla Goldberg MD [address] [place] [phone] 10/27/2024 1:45 PM DESIGN/ANIMATION INSTRUCTOR Appointment [address] [phone] Karla Goldberg MD [address] [place] [phone] 10/30/2024 1:45 PM CDT Appointment [address] [phone] Karla Goldberg MD [address] [place] [phone] 10/31/2024 1:45 PM CDT Appointment [address] [phone] Karla Goldberg MD [address] [place] [phone] 11/01/2024 1:45 PM CDT Appointment [address] [phone] Karla Goldberg MD [address] [place] [phone] 11/02/2024 1:45 PM CDT Appointment [address] [phone] Karla Goldberg MD [address] [place] [phone] 11/03/2024 1:45 PM CDT Appointment [address] [phone] Karla Goldberg MD [address] [place] [phone] 11/06/2024 1:45 PM CDT Appointment [address] [phone] Karla Goldberg MD [address] [place] [phone] 11/07/2024 1:45 PM CDT Appointment [address] [phone] Karla Goldberg MD [address] [place] [phone] 11/08/2024 1:45 PM CDT Appointment [address] [phone] Karla Goldberg MD [address] [place] [phone] 11/09/2024 1:45 PM CDT Appointment [address] [phone] Karla Goldberg MD [address] [place] [phone] 11/10/2024 1:45 PM CDT Appointment [address] [phone] Karla Goldberg MD [address] [place] [phone] 11/13/2024 1:45 PM CDT [facility]ointment [facility] [address] [phone] Karla Goldberg MD [address] [place] [phone] 11/14/2024 1:45 PM CDT Appointment [address] [phone] Karla Goldberg MD [address] [place] [phone] 11/15/2024 12:45 PM CDT Appointment [address] [phone] Karla Goldberg MD [address] [place] [phone] 11/16/2024 12:45 PM CDT Appointment [address] [phone] Karla Goldberg MD [address] [place] [phone] 11/17/2024 1:45 PM CDT Appointment [address] [phone] Karla Goldberg MD [address] [place] [phone] 11/20/2024 1:45 PM CDT Appointment [address] [phone] Karla Goldberg MD [address] [place] [phone] 11/21/2024 1:45 PM CDT Appointment [address] [phone] Karla Goldberg MD [address] [place] [phone] 11/22/2024 1:45 PM CDT Appointment [address] [phone] Karla Goldberg MD [address] [place] [phone] 11/23/2024 1:45 PM CDT Appointment [address] [phone] Karla Goldberg MD [address] [place] [phone] 11/24/2024 1:45 PM CDT Appointment [address] [phone] Karla Goldberg MD [address] [place] [phone] 11/27/2024 1:45 PM CDT Appointment [address] [phone] Karla Goldberg MD [address] [place] [phone] 11/28/2024 1:45 PM CDT Appointment [facility] [address] [facility] [place] [address] Karla Goldberg MD [address] [place] [address] documented as of this encounter Procedures Procedure Name Priority Date/Time Associated Diagnosis Comments CBC WITH DIFFERENTIAL Routine 05/29/2024 3:00 AM CDT COMPREHENSIVE METABOLIC PANEL Routine 05/29/2024 3:00 AM CDT documented in this encounter Results * (ABNORMAL) CBC WITH DIFFERENTIAL (05/29/2024 3:00 AM CDT) WBC 5.1 4.8 - 10.8 K/uL 05/29/2024 5:44 AM CDT [facility] RBC 3.90(L) 4.20 - 5.40 M/uL 05/29/2024 5:44 AM CDT [facility] HEMOGLOBIN 12.0 12.0 - 16.0 g/dL 05/29/2024 5:44 AM CDT [facility] HEMATOCRIT 37.3 36.0 - 46.0 % 05/29/2024 5:44 AM CDT [facility] MCV 95.6 84.0 - 103.0 fL 05/29/2024 5:44 AM CDT [facility] MCH 30.8 27.0 - 34.0 pg 05/29/2024 5:44 AM CDT [facility] MCHC 32.2 30.0 - 35.0 g/dL 05/29/2024 5:44 AM CDT [facility] RDW 13.7 11.0 - 14.5 % 05/29/2024 5:44 AM CDT [facility] RDW-STDEV 46.7 37.0 - 54.0 fL 05/29/2024 5:44 AM CDT [facility] PLATELETS 312 140 - 440 K/uL 05/29/2024 5:44 AM CDT [facility] MPV 10.9 8.9 - 12.8 fL 05/29/2024 5:44 AM CDT [facility] NEUTROPHILS 59 42 - 75 % 05/29/2024 5:44 AM CDT [facility] LYMPHOCYTES 29 24 - 44 % 05/29/2024 5:44 AM CDT [facility] MONOCYTES 10 2 - 10 % 05/29/2024 5:44 AM CDT [facility] EOSINOPHILS 2 0 - 7 % 05/29/2024 5:44 AM CDT [facility] BASOPHILS 1 0 - 1 % 05/29/2024 5:44 AM CDT [facility] IMMATURE GRANULOCYTES 1 0 - 2 % 05/29/2024 5:44 AM CDT [facility] NEUTROPHIL ABSOLUTE 2.97 2.00 - 8.00 K/uL 05/29/2024 5:44 AM CDT [facility] LYMPHOCYTE ABSOLUTE 1.44 1.20 - 4.00 K/uL 05/29/2024 5:44 AM CDT [facility] MONOCYTE ABSOLUTE 0.48 0.10 - 0.60 K/uL 05/29/2024 5:44 AM CDT [facility] EOSINOPHIL ABSOLUTE 0.09 0.00 - 0.70 K/uL 05/29/2024 5:44 AM CDT [facility] BASOPHILS ABSOLUTE 0.03 0.00 - 0.20 K/uL 05/29/2024 5:44 AM CDT [facility] IMMATURE GRANULOCYTES ABSOLUTE 0.04 0.00 - 0.10 K/uL 05/29/2024 5:44 AM T [facility] Blood Collection / Unknown 05/29/2024 3:00 AM CDT 05/29/2024 5:36 AM CDT us Henrik Johnson DO HEMATOLOGY ORDERABLES Final Result [facility] CLIA # [id number] [address] [place] [address] [place] [address] * (ABNORMAL) COMPREHENSIVE METABOLIC PANEL (05/29/2024 3:00 AM CDT) [facility] SODIUM 138 136 - 145 mmol/L 05/29/2024 6:23 AM T [facility] POTASSIUM 4.1 3.5 - 5.1 mmol/L 05/29/2024 6:23 AM T [facility] CHLORIDE 98 98 - 107 mmol/L 05/29/2024 6:23 AM T [facility] CO2 28 22 - 29 mmol/L 05/29/2024 6:23 AM T [facility] CALCIUM 9.6 8.6 - 10.0 mg/dL 05/29/2024 6:23 AM [facility] BUN 18 6 - 20 mg/dL 05/29/2024 6:23 AM [facility] CREATININE 0.86 0.51 - 0.95 mg/dL 05/29/2024 6:23 AM T [facility] GLUCOSE 146(H) 74 - 99 mg/dL 05/29/2024 6:23 AM [facility] TOTAL PROTEIN 6.4 6.4 - 8.3 g/dL 05/29/2024 6:23 AM [facility] ALBUMIN 3.2(L) 3.5 - 5.2 g/dL 05/29/2024 6:23 AM [facility] BILIRUBIN TOTAL 0.3 0.2 - 1.0 mg/dL 05/29/2024 6:23 AM T [facility] ALKALINE PHOSPHATASE 69 35 - 104 U/L 05/29/2024 6:23 AM T [facility] AST 41(H) 10 - 35 U/L 05/29/2024 6:23 AM [facility] ALT 38(H) <=35 U/L 05/29/2024 6:23 AM [facility] GFR >60 >=60 mL/min/1.7 3 sq meter 05/29/2024 6:23 AM CDT [facility] Comment:eGFR calculated with 2020 CKD-EPI equation. Vegetarian diet, extremely high or low muscle mass, and may affect results. Cystatin C with Glomerular Filtration Rate is a suitable alternative for these patients. ANION GAP 12 9 - 20 mmol/L 05/29/2024 6:23 AM CDT [facility] Blood Collection / Unknown 05/29/2024 3:00 AM CDT 05/29/2024 5:36 AM CDT us Henrik Johnson DO CHEMISTRY ORDERABLES Final R esult [facility] CLIA # [id number] [address] [address] documented in this encounter Visit Diagnoses Not on filedocumented in this encounter Additional Health Concerns Infection Onset Date Last Indicated Resolved Time R/O Respiratory 09/13/2024 09/13/2024 09/13/2024 1 0:56 PM DESIGN/ANIMATION INSTRUCTOR Respiratory Syncytial Virus (RSV) 09/14/2024 025 10/12/2024 1:16 AM DESIGN/ANIMATION INSTRUCTOR Assessment Noted Time PHQ-9 Depression Total Score: 1 04/20/20 24 11:16 PM CDT documented as of this encounter Care Teams Land Reclamation Specialist Relationship Specialty Start Date End Date Anu Thompson DO [address] [place] [address] PCP - General Family Practice 07/21/23 09/17/24 documented as of this encounter
--- OUTSIDE RECORDS SUMMARY | 2024-10-14 10:37 | XMS_ITS | Encounter Summary ---
Author Organization [facility] Address [address] [place] [address] Care Team Providers Care Circuit Tester Name Role Phone Anu Thompson DO Primary Care Provider Encounter Details Date Type Department Care Team (Late Contact Info) Description 05/25/2024 Lab Requisition [facility] Laboratory Services [address] [place] [place] [address] [place] [address] Henrik Johnson, [address] [place] [address] Social History Tobacco Use Types [...] on file Legal Sex Female 1:37 AM SLD INCLUSION TEACHER Gender Identity Not on file Sexual Orientation Not on file documented as of this encounter Plan of Treatment Upcoming Encounters Date Type Department Care Team (Late Contact Info) Description 10/16/2024 11:00 AM SLD INCLUSION TEACHER Appointment [facility] [address] [facility] [address] [place] [address] Rashmi Dumont MD [address] [place] [phone] [facility] Oncology, Infusion 8 10/16/2024 1:45 PM SLD INCLUSION TEACHER Appointment [address] [phone] Karla Goldberg MD [address] [place] [phone] 10/17/2024 1:45 PM SLD INCLUSION TEACHER Appointment [address] [phone] Karla Goldberg MD [address] [place] [phone] 10/18/2024 1:45 PM SLD INCLUSION TEACHER Appointment [address] [phone] Karla Goldberg MD [address] [place] [phone] 10/19/2024 1:45 PM SLD INCLUSION TEACHER Appointment [address] [phone] Karla Goldberg MD [address] [place] [phone] 10/20/2024 1:45 PM SLD INCLUSION TEACHER Appointment [address] [phone] Karla Goldberg MD [address] [place] [phone] 10/23/2024 1:45 PM SLD INCLUSION TEACHER Appointment [address] [phone] Karla Goldberg MD [address] [place] [phone] 10/24/2024 11:30 AM SLD INCLUSION TEACHER Office Visit [facility] Ear Nose and Throat Head Neck SGF [address] [place] [phone] Chris Flores MD [address] [place] [address] 10/24/2024 1:45 PM SLD INCLUSION TEACHER Appointment [address] [phone] Karla Goldberg MD [address] [place] [phone] 10/25/2024 1:45 PM SLD INCLUSION TEACHER Appointment [address] [phone] Karla Goldberg MD [address] [place] [phone] 10/26/2024 1:45 PM SLD INCLUSION TEACHER Appointment [address] [phone] Karla Goldberg MD [address] [place] [phone] 10/27/2024 1:45 PM SLD INCLUSION TEACHER Appointment [address] [phone] Karla Goldberg MD [address] [place] [phone] 10/30/2024 1:45 PM CDT Appointment [address] [phone] Karla Goldberg MD [address] [place] [phone] 10/31/2024 1:45 PM CDT Appointment [address] [phone] Karla Goldberg MD [address] [place] [phone] 11/01/2024 1:45 PM CDT Appointment [address] [phone] Karla Goldberg MD [address] [place] [phone] 11/02/2024 1:45 PM CDT Appointment [address] [phone] Karla Goldberg MD [address] [place] [phone] 11/03/2024 1:45 PM CDT Appointment [address] [phone] Karla Goldberg MD [address] [place] [phone] 11/06/2024 1:45 PM CDT Appointment [address] [phone] Karla Goldberg MD [address] [place] [phone] 11/07/2024 1:45 PM CDT Appointment [address] [phone] Karla Goldberg MD [address] [place] [phone] 11/08/2024 1:45 PM CDT Appointment [address] [phone] Karla Goldberg MD [address] [place] [phone] 11/09/2024 1:45 PM CDT Appointment [address] [phone] Karla Goldberg MD [address] [place] [phone] 11/10/2024 1:45 PM CDT Appointment [address] [phone] Karla Goldberg MD [address] [place] [phone] 11/13/2024 1:45 PM CDT Appointment [facility] [address] [phone] Karla Goldberg MD [address] [place] [phone] 11/14/2024 1:45 PM CDT Appointment [address] [phone] Karla Goldberg MD [address] [place] [phone] 11/15/2024 12:45 PM CDT Appointment [address] [phone] Karla Goldberg MD [address] [place] [phone] 11/16/2024 12:45 PM CDT Appointment [address] [phone] Karla Goldberg MD [address] [place] [phone] 11/17/2024 1:45 PM CDT Appointment [address] [phone] Karla Goldberg MD [address] [place] [phone] 11/20/2024 1:45 PM CDT Appointment [address] [phone] Karla Goldberg MD [address] [place] [phone] 11/21/2024 1:45 PM CDT Appointment [address] [phone] Karla Goldberg MD [address] [place] [phone] 11/22/2024 1:45 PM CDT Appointment [address] [phone] Karla Goldberg MD [address] [place] [phone] 11/23/2024 1:45 PM CDT Appointment [address] [phone] Karla Goldberg MD [address] [place] [phone] 11/24/2024 1:45 PM CDT Appointment [address] [phone] Karla Goldberg MD [address] [place] [phone] 11/27/2024 1:45 PM CDT Appointment [address] [phone] Karla Goldberg MD [address] [place] [phone] 11/28/2024 1:45 PM CDT Appointment [facility] [address] [place] [address] [phone] Karla Goldberg MD [address] [place] [address] documented as of this encounter Procedures Procedure Name Priority Date/Time Associated Diagnosis Comments CBC WITH DIFFERENTIAL Routine 05/25/2024 8:00 AM CDT COMPREHENSIVE METABOLIC PANEL Routine 05/25/2024 8:00 AM CDT documented in this encounter Results * (ABNORMAL) CBC WITH DIFFERENTIAL (05/25/2024 8:00 AM CDT) WBC 5.5 4.8 - 10.8 K/uL 05/25/2024 9:27 AM CDT [facility] RBC 3.77(L) 4.20 - 5.40 M/uL 05/25/2024 9:27 AM CDT [facility] HEMOGLOBIN 11.6(L) 12.0 - 16.0 g/dL 05/25/2024 9:27 AM CDT [facility] HEMATOCRIT 35.9(L) 36.0 - 46.0 % 05/25/2024 9:27 AM CDT [facility] MCV 95.2 84.0 - 103.0 fL 05/25/2024 9:27 AM CDT [facility] MCH 30.8 27.0 - 34.0 pg 05/25/2024 9:27 AM CDT [facility] MCHC 32.3 30.0 - 35.0 g/dL 05/25/2024 9:27 AM CDT [facility] RDW 13.7 11.0 - 14.5 % 05/25/2024 9:27 AM CDT [facility] RDW-STDEV 47.6 37.0 - 54.0 fL 05/25/2024 9:27 AM CDT [facility] PLATELETS 196 140 - 440 K/uL 05/25/2024 9:27 AM T [facility] MPV 10.1 8.9 - 12.8 fL 05/25/2024 9:27 AM T [facility] NEUTROPHILS 68 42 - 75 % 05/25/2024 9:27 AM [facility] LYMPHOCYTES 23(L) 24 - 44 % 05/25/2024 9:27 AM T [facility] MONOCYTES 8 2 - 10 % 05/25/2024 9:27 AM T [facility] EOSINOPHILS 1 0 - 7 % 05/25/2024 9:27 AM T [facility] BASOPHILS 0 0 - 1 % 05/25/2024 9:27 AM T [facility] IMMATURE GRANULOCYTES 0 0 - 2 % 05/25/2024 9:27 AM T [facility] NEUTROPHIL ABSOLUTE 3.72 2.00 - 8.00 K/uL 05/25/2024 9:27 AM T [facility] LYMPHOCYTE ABSOLUTE 1.24 1.20 - 4.00 K/uL 05/25/2024 9:27 AM T [facility] MONOCYTE ABSOLUTE 0.42 0.10 - 0.60 K/uL 05/25/2024 9:27 AM [facility] EOSINOPHIL ABSOLUTE 0.04 0.00 - 0.70 K/uL 05/25/2024 9:27 AM [facility] BASOPHILS ABSOLUTE 0.02 0.00 - 0.20 K/uL 05/25/2024 9:27 AM T [facility] IMMATURE GRANULOCYTES ABSOLUTE 0.02 0.00 - 0.10 K/uL 05/25/2024 9:27 AM [facility] Blood Collection / Unknown 05/25/2024 8:00 AM CDT 05/25/2024 9:21 AM CDT Henrik Johnson DO HEMATOLOGY ORDERABLES Final Result [facility] CLIA # [id number] [address] [address] [place] [address] * (ABNORMAL) COMPREHENSIVE METABOLIC PANEL (05/25/2024 8:00 AM CDT) [facility] SODIUM 143 136 - 145 mmol/L 05/25/2024 9:54 AM T [facility] POTASSIUM 4.0 3.5 - 5.1 mmol/L 05/25/2024 9:54 AM T [facility] CHLORIDE 105 98 - 107 mmol/L 05/25/2024 9:54 AM T [facility] CO2 30(H) 22 - 29 mmol/L 05/25/2024 9:54 AM [facility] CALCIUM 8.8 8.6 - 10.0 mg/dL 05/25/2024 9:54 AM [facility] BUN 8 6 - 20 mg/dL 05/25/2024 9:54 AM [facility] CREATININE 0.82 0.51 - 0.95 mg/dL 05/25/2024 9:54 AM [facility] GLUCOSE 131(H) 74 - 99 mg/dL 05/25/2024 9:54 AM [facility] TOTAL PROTEIN 6.1(L) 6.4 - 8.3 g/dL 05/25/2024 9:54 AM [facility] ALBUMIN 2.9(L) 3.5 - 5.2 g/dL 05/25/2024 9:54 AM [facility] BILIRUBIN TOTAL 0.2 0.2 - 1.0 mg/dL 05/25/2024 9:54 AM T [facility] ALKALINE PHOSPHATASE 64 35 - 104 U/L 05/25/2024 9:54 AM T [facility] AST 29 10 - 35 U/L 05/25/2024 9:54 AM T [facility] ALT 25 <=35 U/L 05/25/2024 9:54 AM [facility] GFR >60 >=60 mL/min/1.7 3 sq meter 05/25/2024 9:54 AM CDT [facility] Comment:eGFR calculated with 2020 CKD-EPI equation. Vegetarian diet, extremely high or low muscle mass, and may affect results. Cystatin C with Glomerular Filtration Rate is a suitable alternative for these patients. ANION GAP 8(L) 9 - 20 mmol/L 05/25/2024 9:54 AM CDT [facility] Blood Collection / Unknown 05/25/2024 8:00 AM CDT 05/25/2024 9:21 AM CDT us Henrik Johnson DO CHEMISTRY ORDERABLES Final R esult [facility] CLIA # [id number] [address] [address] documented in this encounter Visit Diagnoses Not on filedocumented in this encounter Additional Health Concerns Infection Onset Date Last Indicated Resolved Time R/O Respiratory 09/13/2024 09/13/2024 09/13/2024 1 0:56 PM SLD INCLUSION TEACHER Respiratory Syncytial Virus (RSV) 09/14/2024 025 10/12/2024 1:16 AM SLD INCLUSION TEACHER Assessment Noted Time PHQ-9 Depression Total Score: 1 04/20/20 24 11:16 PM CDT documented as of this encounter Care Teams Circuit Tester Relationship Specialty Start Date End Date Anu Thompson DO [address] [place] [address] PCP - General Family Practice 07/21/23 09/17/24 documented as of this encounter
--- OUTSIDE RECORDS SUMMARY | 2024-10-14 10:37 | XMS_ITS | Encounter Summary ---
Author Organization [facility] Address [address] [place] [address] Care Team Providers Care Global Compensation Director Name Role Phone Anu Thompson DO Primary Care Provider Encounter Details Date Type Department Care Team (Late Contact Info) Description 06/05/2024 Lab Requisition [facility] Services [address] [place] [address] Henrik Johnson, [address] [place] [address] Social History Tobacco Use Types [...] on file Legal Sex Female 1:37 AM CLINICAL SYSTEMS ANALYST Gender Identity Not on file Sexual Orientation Not on file documented as of this encounter Plan of Treatment Upcoming Encounters Date Type Department Care Team (Late Contact Info) Description 10/16/2024 11:00 AM CLINICAL SYSTEMS ANALYST Appointment [facility] [address] [facility] [address] [place] [address] Rashmi Dumont MD [address] [place] [phone] [facility] Oncology, Infusion 8 10/16/2024 1:45 PM CLINICAL SYSTEMS ANALYST Appointment [address] [phone] Karla Goldberg MD [address] [place] [phone] 10/17/2024 1:45 PM CLINICAL SYSTEMS ANALYST Appointment [address] [phone] Karla Goldberg MD [address] [place] [phone] 10/18/2024 1:45 PM CLINICAL SYSTEMS ANALYST Appointment [address] [phone] Karla Goldberg MD [address] [place] [phone] 10/19/2024 1:45 PM CLINICAL SYSTEMS ANALYST Appointment [address] [phone] Karla Goldberg MD [address] [place] [phone] 10/20/2024 1:45 PM CLINICAL SYSTEMS ANALYST Appointment [address] [phone] Karla Goldberg MD [address] [place] [phone] 10/23/2024 1:45 PM CLINICAL SYSTEMS ANALYST Appointment [address] [phone] Karla Goldberg MD [address] [place] [phone] 10/24/2024 11:30 AM CLINICAL SYSTEMS ANALYST Office Visit [facility] [address] [place] [phone] Chris Flores MD [address] [place] [address] 10/24/2024 1:45 PM CLINICAL SYSTEMS ANALYST Appointment [address] [phone] Karla Goldberg MD [address] [place] [phone] 10/25/2024 1:45 PM CLINICAL SYSTEMS ANALYST Appointment [address] [phone] Karla Goldberg MD [address] [place] [phone] 10/26/2024 1:45 PM CLINICAL SYSTEMS ANALYST Appointment [address] [phone] Karla Goldberg MD [address] [place] [phone] 10/27/2024 1:45 PM CLINICAL SYSTEMS ANALYST Appointment [address] [phone] Karla Goldberg MD [address] [place] [phone] 10/30/2024 1:45 PM CDT Appointment [address] [phone] Karla Goldberg MD [address] [place] [phone] 10/31/2024 1:45 PM CDT Appointment [address] [phone] Karla Goldberg MD [address] [place] [phone] 11/01/2024 1:45 PM CDT Appointment [address] [phone] Karla Goldberg MD [address] [place] [phone] 11/02/2024 1:45 PM CDT Appointment [address] [phone] Karla Goldberg MD [address] [place] [phone] 11/03/2024 1:45 PM CDT Appointment [address] [phone] Karla Goldberg MD [address] [place] [phone] 11/06/2024 1:45 PM CDT Appointment [address] [phone] Karla Goldberg MD [address] [place] [phone] 11/07/2024 1:45 PM CDT Appointment [address] [phone] Karla Goldberg MD [address] [place] [phone] 11/08/2024 1:45 PM CDT Appointment [address] [phone] Karla Goldberg MD [address] [place] [phone] 11/09/2024 1:45 PM CDT Appointment [address] [phone] Karla Goldberg MD [address] [place] [phone] 11/10/2024 1:45 PM CDT Appointment [address] [phone] Karla Goldberg MD [address] [place] [phone] 11/13/2024 1:45 PM CDT Appointment [facility] [address] [phone] Karla Goldberg MD [address] [place] [phone] 11/14/2024 1:45 PM CDT Appointment [address] [phone] Karla Goldberg MD [address] [place] [phone] 11/15/2024 12:45 PM CDT Appointment [address] [phone] Karla Goldberg MD [address] [place] [phone] 11/16/2024 12:45 PM CDT Appointment [address] [phone] Karla Goldberg MD [address] [place] [phone] 11/17/2024 1:45 PM CDT Appointment [address] [phone] Karla Goldberg MD [address] [place] [phone] 11/20/2024 1:45 PM CDT Appointment [address] [phone] Karla Goldberg MD [address] [place] [phone] 11/21/2024 1:45 PM CDT Appointment [address] [phone] Karla Goldberg MD [address] [place] [phone] 11/22/2024 1:45 PM CDT Appointment [address] [phone] Karla Goldberg MD [address] [place] [phone] 11/23/2024 1:45 PM CDT Appointment [address] [phone] Karla Goldberg MD [address] [place] [phone] 11/24/2024 1:45 PM CDT Appointment [address] [phone] Karla Goldberg MD [address] [place] [phone] 11/27/2024 1:45 PM CDT Appointment [address] [phone] Karla Goldberg MD [address] [place] [phone] 11/28/2024 1:45 PM CDT Appointment [facility] [address] [facility] [address] [place] [phone] Karla Goldberg MD [address] [place] [address] documented as of this encounter Procedures Procedure Name Priority Date/Time Associated Diagnosis Comments CBC WITH DIFFERENTIAL Routine 06/05/2024 3:40 AM CDT COMPREHENSIVE METABOLIC PANEL Routine 06/05/2024 3:40 AM CDT documented in this encounter Results * (ABNORMAL) CBC WITH DIFFERENTIAL (06/05/2024 3:40 AM CDT) WBC 7.2 4.8 - 10.8 K/uL 06/05/2024 6:01 AM CDT [facility] RBC 3.98(L) 4.20 - 5.40 M/uL 06/05/2024 6:01 AM CDT [facility] HEMOGLOBIN 12.1 12.0 - 16.0 g/dL 06/05/2024 6:01 AM CDT [facility] HEMATOCRIT 38.6 36.0 - 46.0 % 06/05/2024 6:01 AM T [facility] MCV 97.0 84.0 - 103.0 fL 06/05/2024 6:01 AM T [facility] MCH 30.4 27.0 - 34.0 pg 06/05/2024 6:01 AM CDT [facility] MCHC 31.3 30.0 - 35.0 g/dL 06/05/2024 6:01 AM T [facility] RDW 15.0(H) 11.0 - 14.5 % 06/05/2024 6:01 AM CDT [facility] RDW-STDEV 53.1 37.0 - 54.0 fL 06/05/2024 6:01 AM T [facility] PLATELETS 318 140 - 440 K/uL 06/05/2024 6:01 AM T [facility] MPV 10.7 8.9 - 12.8 fL 06/05/2024 6:01 AM [facility] NEUTROPHILS 56 42 - 75 % 06/05/2024 6:01 AM [facility] LYMPHOCYTES 33 24 - 44 % 06/05/2024 6:01 AM [facility] MONOCYTES 9 2 - 10 % 06/05/2024 6:01 AM T [facility] EOSINOPHILS 2 0 - 7 % 06/05/2024 6:01 AM T [facility] BASOPHILS 1 0 - 1 % 06/05/2024 6:01 AM [facility] IMMATURE GRANULOCYTES 1 0 - 2 % 06/05/2024 6:01 AM [facility] NEUTROPHIL ABSOLUTE 4.03 2.00 - 8.00 K/uL 06/05/2024 6:01 AM [facility] LYMPHOCYTE ABSOLUTE 2.35 1.20 - 4.00 K/uL 06/05/2024 6:01 AM T [facility] MONOCYTE ABSOLUTE 0.61(H) 0.10 - 0.60 K/uL 06/05/2024 6:01 AM [facility] EOSINOPHIL ABSOLUTE 0.12 0.00 - 0.70 K/uL 06/05/2024 6:01 AM [facility] BASOPHILS ABSOLUTE 0.05 0.00 - 0.20 K/uL 06/05/2024 6:01 AM [facility] IMMATURE GRANULOCYTES ABSOLUTE 0.04 0.00 - 0.10 K/uL 06/05/2024 6:01 AM [facility] Blood Collection / Unknown 06/05/2024 3:40 AM CDT 06/05/2024 5:53 AM CDT Henrik Johnson DO HEMATOLOGY ORDERABLES Final Result [facility] CLIA # [id number] [address] [place] [address] [place] [address] * (ABNORMAL) COMPREHENSIVE METABOLIC PANEL (06/05/2024 3:40 AM CDT) [facility] SODIUM 140 136 - 145 mmol/L 06/05/2024 6:33 AM T [facility] POTASSIUM 4.8 3.5 - 5.1 mmol/L 06/05/2024 6:33 AM CDT [facility] CHLORIDE 106 98 - 107 mmol/L 06/05/2024 6:33 AM T [facility] CO2 23 22 - 29 mmol/L 06/05/2024 6:33 AM T [facility] CALCIUM 9.6 8.6 - 10.0 mg/dL 06/05/2024 6:33 AM T [facility] BUN 36(H) 6 - 20 mg/dL 06/05/2024 6:33 AM T [facility] CREATININE 1.10(H) 0.51 - 0.95 mg/dL 06/05/2024 6:33 AM T [facility] GLUCOSE 85 74 - 99 mg/dL 06/05/2024 6:33 AM [facility] TOTAL PROTEIN 6.4 6.4 - 8.3 g/dL 06/05/2024 6:33 AM [facility] ALBUMIN 3.4(L) 3.5 - 5.2 g/dL 06/05/2024 6:33 AM T [facility] BILIRUBIN TOTAL 0.2 0.2 - 1.0 mg/dL 06/05/2024 6:33 AM T [facility] ALKALINE PHOSPHATASE 81 35 - 104 U/L 06/05/2024 6:33 AM T [facility] AST 35 10 - 35 U/L 06/05/2024 6:33 AM T [facility] ALT 35 <=35 U/L 06/05/2024 6:33 AM T [facility] GFR >60 >=60 mL/min/1. 73 sq meter 06/05/2024 6:33 AM CDT [facility] Comment:eGFR calculated with 2020 CKD-EPI equation. Vegetarian diet, extremely high or low muscle mass, and may affect results. Cystatin C with Glomerular Filtration Rate is a suitable alternative for these patients. ANION GAP 11 9 - 20 mmol/L 06/05/2024 6:33 AM CDT [facility] Blood Collection / Unknown 06/05/2024 3:40 AM CDT 06/05/2024 5:53 AM CDT us Henrik Johnson DO CHEMISTRY ORDERABLES Final R esult [facility] CLIA # [id number] [id number] [place] [address] documented in this encounter Visit Diagnoses Not on filedocumented in this encounter Additional Health Concerns Infection Onset Date Last Indicated Resolved Time R/O Respiratory 09/13/2024 09/13/2024 09/13/2024 1 0:56 PM CLINICAL SYSTEMS ANALYST Respiratory Syncytial Virus (RSV) 09/14/2024 025 10/12/2024 1:16 AM CLINICAL SYSTEMS ANALYST Assessment Noted Time PHQ-9 Depression Total Score: 1 04/20/20 24 11:16 PM CDT documented as of this encounter Care Teams Global Compensation Director Relationship Specialty Start Date End Date Aun Thompson DO [address] [place] [address] PCP - General Family Practice 07/21/23 09/17/24 documented as of this encounter
--- OUTSIDE RECORDS SUMMARY | 2024-10-14 10:37 | XMS_ITS | Encounter Summary ---
Author Organization [facility] Address [address] [place] [address] Care Team Providers Care Plate Stacker Hand Name Role Phone Unavailable Primary Care Provider Unavailabl e Reason for Visit * Reason Onset Date Comments pain rx 10/11/2024 Encounter Details Date Type Department Care Team (Late st Contact Info) Description 10/11/2024 [facility]phone [facility] [place] [address] [facility] [address] [place] [address] Karla aSldana RN pain rx Social History Tobacco Use Types Packs/Day Years [...] on file Legal Sex Female 1:37 AM ACCOUNT RELATIONSHIP MANAGER Gender Identity Not on file Sexual Orientation Not on file documented as of this encounter Miscellaneous Notes * Telephone Encounter - Karla Saldana RN - 10/11/2024 11:11 AM ACCOUNT RELATIONSHIP MANAGER Pt calling - needing refill on med: HYDROcodone-acetaminophen (NORCO) 5- 325 mg tablet Pt has 1 tablet left NOTE: Pt has feeding tube and prefers liquid form of med Pharmacy: [facility] - [place], [place] - [address], [facility] [address] Has not made palliative care appt yet Solution, oral: Generic: Hydrocodone bitartrate 7.5 mg and acetaminophen 325 mg per 15 mL (5 mL, 10 mL, 15 mL, 118 mL, 473 mL); Hydrocodone bitartrate 10 mg and acetaminophen 325 mg per 15 mL (7.5 mL [DSC], 15 mL [DSC], 473 mL) Call to [facility] - has to fill all (maintenance) or none Getting maintenance at - [facility] - [place], [place] - [address] [place] [address] 3, [facility] [address] Call to [facility] - does not have this med Call to pt - has appts in this week - call to pts so - this is neighbors phone - so #[phone] (n/a, could not LM, sent message re changing all meds to [facility] or sending to pharm near radiation/oncology offices in ) UNT RELATIONSHIP MANAGER UNT RELATIONSHIP MANAGER UNT RELATIONSHIP MANAGER documented in this encounter Plan of Treatment Upcoming Encounters Date Type Department Care Team (Late st Contact Info) Description 10/16/2024 11:00 AM ACCOUNT RELATIONSHIP MANAGER Appointment [facility] [address] [facility] [address] [place] [address] Rashmi Dumont MD [address] [facility] [address] [place] [address] [facility] Oncology, Infusion 8 10/16/2024 1:45 PM ACCOUNT RELATIONSHIP MANAGER Appointment [address] [phone] Karla Goldberg MD [address] [place] [phone] 10/17/2024 1:45 PM ACCOUNT RELATIONSHIP MANAGER Appointment [address] [phone] Karla Goldberg MD [address] [place] [phone] 10/18/2024 1:45 PM ACCOUNT RELATIONSHIP MANAGER Appointment [address] [phone] Karla Goldberg MD [address] [place] [phone] 10/19/2024 1:45 PM ACCOUNT RELATIONSHIP MANAGER Appointment [address] [phone] Karla Goldberg MD [address] [place] [phone] 10/20/2024 1:45 PM ACCOUNT RELATIONSHIP MANAGER Appointment [address] [phone] Karla Goldberg MD [address] [place] [phone] 10/23/2024 1:45 PM ACCOUNT RELATIONSHIP MANAGER Appointment [address] [phone] Karla Goldberg MD [address] [place] [phone] 10/24/2024 11:30 AM ACCOUNT RELATIONSHIP MANAGER Office Visit [facility] N[facility] Th[facility] Head Ne[facility] S[facility] [address] [place] [address] Chris Flores MD [address] [place] [phone] 10/24/2024 1:45 PM ACCOUNT RELATIONSHIP MANAGER Appointment [address] [phone] Karla Goldberg MD [address] [place] [phone] 10/25/2024 1:45 PM ACCOUNT RELATIONSHIP MANAGER Appointment [address] [phone] Karla Goldberg MD [address] [place] [phone] 10/26/2024 1:45 PM ACCOUNT RELATIONSHIP MANAGER Appointment [address] [phone] Karla Goldberg MD [address] [place] [phone] 10/27/2024 1:45 PM ACCOUNT RELATIONSHIP MANAGER Appointment [address] [phone] Karla Goldberg MD [address] [place] [phone] 10/30/2024 1:45 PM CDT Appointment [address] [phone] Karla Goldberg MD [address] [place] [phone] 10/31/2024 1:45 PM CDT Appointment [address] [phone] Karla Goldberg MD [address] [place] [phone] 11/01/2024 1:45 PM CDT Appointment [address] [phone] Karla Goldberg MD [address] [place] [phone] 11/02/2024 1:45 PM CDT Appointment [address] [phone] Karla Goldberg MD [address] [place] [phone] 11/03/2024 1:45 PM CDT Appointment [address] [phone] Karla Goldberg MD [address] [place] [phone] 11/06/2024 1:45 PM CDT Appointment [address] [phone] Karla Goldberg MD [address] [place] [phone] 11/07/2024 1:45 PM CDT Appointment [address] [phone] Karla Goldberg MD [address] [place] [phone] 11/08/2024 1:45 PM CDT Appointment [address] [phone] Karla Goldberg MD [address] [place] [phone] 11/09/2024 1:45 PM CDT Appointment [address] [phone] Karla Goldberg MD [address] [place] [phone] 11/10/2024 1:45 PM CDT Appointment [address] [phone] Karla Goldberg MD [address] [place] [phone] 11/13/2024 1:45 PM CDT Appointment [address] [phone] Karla Goldberg MD [address] [place] [phone] 11/14/2024 1:45 PM CDT Appointment [address] [phone] Karla Goldberg MD [address] [place] [phone] 11/15/2024 12:45 PM CDT Appointment [address] [phone] Karla Goldberg MD [address] [place] [phone] 11/16/2024 12:45 PM CDT Appointment [address] [phone] Karla Goldberg MD [address] [place] [phone] 11/17/2024 1:45 PM CDT Appointment [address] [phone] Karla Goldberg MD [address] [place] [phone] 11/20/2024 1:45 PM CDT Appointment [address] [phone] Karla Goldberg MD [address] [place] [phone] 11/21/2024 1:45 PM CDT Appointment [address] [phone] Karla Goldberg MD [address] [place] [phone] 11/22/2024 1:45 PM CDT Appointment [address] [phone] Karla Goldberg MD [address] [place] [phone] 11/23/2024 1:45 PM CDT Appointment [address] [phone] Karla Goldberg MD [address] [place] [phone] 11/24/2024 1:45 PM CDT Appointment [address] [phone] Karla Goldberg MD [address] [place] [phone] 11/27/2024 1:45 PM CDT Appointment [address] [phone] Karla Goldberg MD [address] [place] [phone] 11/28/2024 1:45 PM CDT Appointment [address] [phone] Karla Goldberg MD [address] [place] [phone] documented as of this encounter Visit Diagnoses Not on filedocumented in this encounter Additional Health Concerns Infection Onset Date Last Indicated Resolved Time Respiratory Syncytial Virus (RSV) 09/14/2024 025 10/12/2024 1:16 AM ACCOUNT RELATIONSHIP MANAGER Assessment Noted Time PHQ-9 Depression Total Score: 1 04/20/20 24 11:16 PM CDT documented as of this encounter
--- OUTSIDE RECORDS SUMMARY | 2024-10-14 10:37 | XMS_ITS | Encounter Summary ---
Author Organization [facility] Address [address] [place] [address] Care Team Providers Care Feed Miller Name Role Phone Anu Thompson DO Primary Care Provider Encounter Details Date Type Department Care Team (Late Contact Info) Description 05/23/2024 Lab Requisition [facility] Services [address] [place] [address] Henrik Johnson, [address] [place] [address] Social History Tobacco Use Types [...] on file Legal Sex Female 1:37 AM STRETCHING MACHINE OPERATOR Gender Identity Not on file Sexual Orientation Not on file documented as of this encounter Plan of Treatment Upcoming Encounters Date Type Department Care Team (Late Contact Info) Description 10/16/2024 11:00 AM STRETCHING MACHINE OPERATOR Appointment [facility] [address] [facility] [address] [place] [address] Rashmi Dumont MD [address] [place] [phone] [facility] Oncology, Infusion 8 10/16/2024 1:45 PM STRETCHING MACHINE OPERATOR Appointment [address] [phone] Karla Goldberg MD [address] [place] [phone] 10/17/2024 1:45 PM STRETCHING MACHINE OPERATOR Appointment [address] [phone] Karla Goldberg MD [address] [place] [phone] 10/18/2024 1:45 PM STRETCHING MACHINE OPERATOR Appointment [address] [phone] Karla Goldberg MD [address] [place] [phone] 10/19/2024 1:45 PM STRETCHING MACHINE OPERATOR Appointment [address] [phone] Karla Goldberg MD [address] [place] [phone] 10/20/2024 1:45 PM STRETCHING MACHINE OPERATOR Appointment [address] [phone] Karla Goldberg MD [address] [place] [phone] 10/23/2024 1:45 PM STRETCHING MACHINE OPERATOR Appointment [address] [phone] Karla Goldberg MD [address] [place] [phone] 10/24/2024 11:30 AM STRETCHING MACHINE OPERATOR Office Visit [facility] [address] [place] [phone] Chris Flores MD [address] [place] [address] 10/24/2024 1:45 PM STRETCHING MACHINE OPERATOR Appointment [address] [phone] Karla Goldberg MD [address] [place] [phone] 10/25/2024 1:45 PM STRETCHING MACHINE OPERATOR Appointment [address] [phone] Karla Goldberg MD [address] [place] [phone] 10/26/2024 1:45 PM STRETCHING MACHINE OPERATOR Appointment [address] [phone] Karla Goldberg MD [address] [place] [phone] 10/27/2024 1:45 PM STRETCHING MACHINE OPERATOR Appointment [address] [phone] Karla Goldberg MD [address] [place] [phone] 10/30/2024 1:45 PM CDT Appointment [address] [phone] Karla Goldberg MD [address] [place] [phone] 10/31/2024 1:45 PM CDT Appointment [address] [phone] Karla Goldberg MD [address] [place] [phone] 11/01/2024 1:45 PM CDT Appointment [address] [phone] Karla Goldberg MD [address] [place] [phone] 11/02/2024 1:45 PM CDT Appointment [address] [phone] Karla Goldberg MD [address] [place] [phone] 11/03/2024 1:45 PM CDT Appointment [address] [phone] Karla Goldberg MD [address] [place] [phone] 11/06/2024 1:45 PM CDT Appointment [address] [phone] Karla Goldberg MD [address] [place] [phone] 11/07/2024 1:45 PM CDT Appointment [address] [phone] Karla Goldberg MD [address] [place] [phone] 11/08/2024 1:45 PM CDT Appointment [address] [phone] Karla Goldberg MD [address] [place] [phone] 11/09/2024 1:45 PM CDT Appointment [address] [phone] Karla Goldberg MD [address] [place] [phone] 11/10/2024 1:45 PM CDT Appointment [address] [phone] Karla Goldberg MD [address] [place] [phone] 11/13/2024 1:45 PM CDT [facility]ment [facility] [address] [phone] Karla Goldberg MD [address] [place] [phone] 11/14/2024 1:45 PM CDT Appointment [address] [phone] Karla Goldberg MD [address] [place] [phone] 11/15/2024 12:45 PM CDT Appointment [address] [phone] Karla Goldberg MD [address] [place] [phone] 11/16/2024 12:45 PM CDT Appointment [address] [phone] Karla Goldberg MD [address] [place] [phone] 11/17/2024 1:45 PM CDT Appointment [address] [phone] Karla Goldberg MD [address] [place] [phone] 11/20/2024 1:45 PM CDT Appointment [address] [phone] Karla Goldberg MD [address] [place] [phone] 11/21/2024 1:45 PM CDT Appointment [address] [phone] Karla Goldberg MD [address] [place] [phone] 11/22/2024 1:45 PM CDT Appointment [address] [phone] Karla Goldberg MD [address] [place] [phone] 11/23/2024 1:45 PM CDT Appointment [address] [phone] Karla Goldberg MD [address] [place] [phone] 11/24/2024 1:45 PM CDT Appointment [address] [phone] Karla Goldberg MD [address] [place] [phone] 11/27/2024 1:45 PM CDT Appointment [address] [phone] Karla Goldberg MD [address] [place] [phone] 11/28/2024 1:45 PM CDT Appointment [facility] [address] [place] [address] Karla Goldberg MD [address] [place] [address] documented as of this encounter Procedures Procedure Name Priority Date/Time Associated Diagnosis Comments CBC WITH DIFFERENTIAL Routine 05/23/2024 3:00 AM CDT COMPREHENSIVE METABOLIC PANEL Routine 05/23/2024 3:00 AM CDT documented in this encounter Results * (ABNORMAL) CBC WITH DIFFERENTIAL (05/23/2024 3:00 AM CDT) WBC 5.2 4.8 - 10.8 K/uL 05/23/2024 7:41 AM CDT [facility] RBC 3.18(L) 4.20 - 5.40 M/uL 05/23/2024 7:41 AM CDT [facility] HEMOGLOBIN 9.7(L) 12.0 - 16.0 g/dL 05/23/2024 7:41 AM CDT [facility] HEMATOCRIT 31.1(L) 36.0 - 46.0 % 05/23/2024 7:41 AM CDT [facility] MCV 97.8 84.0 - 103.0 fL 05/23/2024 7:41 AM CDT [facility] MCH 30.5 27.0 - 34.0 pg 05/23/2024 7:41 AM CDT [facility] MCHC 31.2 30.0 - 35.0 g/dL 05/23/2024 7:41 AM CDT [facility] RDW 13.1 11.0 - 14.5 % 05/23/2024 7:41 AM CDT [facility] RDW-STDEV 46.8 37.0 - 54.0 fL 05/23/2024 7:41 AM CDT [facility] PLATELETS 157 140 - 440 K/uL 05/23/2024 7:41 AM T [facility] MPV 10.6 8.9 - 12.8 fL 05/23/2024 7:41 AM [facility] NEUTROPHILS 72 42 - 75 % 05/23/2024 7:41 AM [facility] LYMPHOCYTES 19(L) 24 - 44 % 05/23/2024 7:41 AM [facility] MONOCYTES 8 2 - 10 % 05/23/2024 7:41 AM T [facility] EOSINOPHILS 1 0 - 7 % 05/23/2024 7:41 AM [facility] BASOPHILS 0 0 - 1 % 05/23/2024 7:41 AM [facility] IMMATURE GRANULOCYTES 0 0 - 2 % 05/23/2024 7:41 AM [facility] NEUTROPHIL ABSOLUTE 3.76 2.00 - 8.00 K/uL 05/23/2024 7:41 AM [facility] LYMPHOCYTE ABSOLUTE 0.99(L) 1.20 - 4.00 K/uL 05/23/2024 7:41 AM T [facility] MONOCYTE ABSOLUTE 0.40 0.10 - 0.60 K/uL 05/23/2024 7:41 AM [facility] EOSINOPHIL ABSOLUTE 0.03 0.00 - 0.70 K/uL 05/23/2024 7:41 AM [facility] BASOPHILS ABSOLUTE 0.02 0.00 - 0.20 K/uL 05/23/2024 7:41 AM [facility] IMMATURE GRANULOCYTES ABSOLUTE 0.01 0.00 - 0.10 K/uL 05/23/2024 7:41 AM [facility] Blood Collection / Unknown 05/23/2024 3:00 AM CDT 05/23/2024 7:41 AM CDT Henrik Johnson DO HEMATOLOGY ORDERABLES Final Result [facility] CLIA # [id number] [facility] [address] [place] [address] * (ABNORMAL) COMPREHENSIVE METABOLIC PANEL (05/23/2024 3:00 AM CDT) [facility] SODIUM 140 136 - 145 mmol/L 05/23/2024 8:09 AM [facility] POTASSIUM 3.7 3.5 - 5.1 mmol/L 05/23/2024 8:09 AM T [facility] CHLORIDE 101 98 - 107 mmol/L 05/23/2024 8:09 AM [facility] CO2 32(H) 22 - 29 mmol/L 05/23/2024 8:09 AM [facility] CALCIUM 8.9 8.6 - 10.0 mg/dL 05/23/2024 8:09 AM [facility] BUN 9 6 - 20 mg/dL 05/23/2024 8:09 AM [facility] CREATININE 0.86 0.51 - 0.95 mg/dL 05/23/2024 8:09 AM [facility] GLUCOSE 95 74 - 99 mg/dL 05/23/2024 8:09 AM [facility] TOTAL PROTEIN 5.5(L) 6.4 - 8.3 g/dL 05/23/2024 8:09 AM [facility] ALBUMIN 2.6(L) 3.5 - 5.2 g/dL 05/23/2024 8:09 AM [facility] BILIRUBIN TOTAL 0.5 0.2 - 1.0 mg/dL 05/23/2024 8:09 AM [facility] ALKALINE PHOSPHATASE 50 35 - 104 U/L 05/23/2024 8:09 AM [facility] AST 28 10 - 35 U/L 05/23/2024 8:09 AM [facility] ALT 20 <=35 U/L 05/23/2024 8:09 AM [facility] GFR >60 >=60 mL/min/1.7 3 sq meter 05/23/2024 8:09 AM CDT [facility] Comment:eGFR calculated with 2020 CKD-EPI equation. Vegetarian diet, extremely high or low muscle mass, and may affect results. Cystatin C with Glomerular Filtration Rate is a suitable alternative for these patients. 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
--- OUTSIDE RECORDS SUMMARY | 2024-10-14 10:37 | XMS_ITS | Encounter Summary ---
Author Organization [facility] Address [address] [place] [address] Care Team Providers Care Pump Machine Operator Name Role Phone Anu Thompson DO Primary Care Provider Encounter Details Date Type Department Care Team (Latest Contact Info) Description 09/13/2024 9:40 AM ECHOCARDIOGRAPH TECHNICIAN - 09/13/2024 11:59 PM ECHOCARDIOGRAPH TECHNICIAN Hospital Encounter [facility] [place] [address] [place] [address] Ambulance, [facility] [address] [place] [address] Discharge Disposition: Short term general hospital Social History Tobacco Use Types Packs/Day Years [...] on file Legal Sex Female 1:37 AM ECHOCARDIOGRAPH TECHNICIAN Gender Identity Not on file Sexual Orientation Not on file documented as of this encounter Medications at Time of Discharge naloxone (NARCAN) 4 mg/spray [place], Non-Aerosol EMERGENCY USE ONLY: Administer 1 spray (4 mg) in one nostril one time. May repeat in alternating nostrils every 2-3 min until responsive or EMS arrives. 2 Each 3 09/28/2024 5:11 PM ECHOCARDIOGRAPH TECHNICIAN 5 trach supplies Surgery Date: 09/17/2025 Length [...] 14 days. 28 Tablet 09/28/2024 5:11 PM ECHOCARDIOGRAPH TECHNICIAN 5 10/12/19 25 ondansetron (ZOFRAN ODT) 8 [...] st Contact Info) Description 10/16/2024 11:00 AM ECHOCARDIOGRAPH TECHNICIAN Appointment [facility] Oncology [address] [place] [address] Rashmi Dumont MD [address] [place] [address] [address] [place] [address] [facility] Oncology, [facility] 8 10/16/2024 1:45 PM ECHOCARDIOGRAPH TECHNICIAN Appointment [address] [phone] Karla Goldberg MD [address] [place] [phone] 10/17/2024 1:45 PM ECHOCARDIOGRAPH TECHNICIAN Appointment [address] [phone] Karla Goldberg MD [address] [place] [phone] 10/18/2024 1:45 PM ECHOCARDIOGRAPH TECHNICIAN Appointment [address] [phone] Karla Goldberg MD [address] [place] [phone] 10/19/2024 1:45 PM ECHOCARDIOGRAPH TECHNICIAN Appointment [address] [phone] Karla Goldberg MD [address] [place] [phone] 10/20/2024 1:45 PM ECHOCARDIOGRAPH TECHNICIAN Appointment [address] [phone] Karla Goldberg MD [address] [place] [phone] 10/23/2024 1:45 PM ECHOCARDIOGRAPH TECHNICIAN Appointment [address] [phone] Karla Goldberg MD [address] [place] [phone] 10/24/2024 11:30 AM ECHOCARDIOGRAPH TECHNICIAN Office Visit [facility] Nose [facility] Th[facility] Head Neck S[facility] [address] [place] [phone] Chris Flores MD [address] [place] [address] 10/24/2024 1:45 PM ECHOCARDIOGRAPH TECHNICIAN Appointment [address] [phone] Karla Goldberg MD [address] [place] [phone] 10/25/2024 1:45 PM ECHOCARDIOGRAPH TECHNICIAN Appointment [address] [phone] Karla Goldberg MD [address] [place] [phone] 10/26/2024 1:45 PM ECHOCARDIOGRAPH TECHNICIAN Appointment [address] [phone] Karla Goldberg MD [address] [place] [phone] 10/27/2024 1:45 PM ECHOCARDIOGRAPH TECHNICIAN Appointment [address] [phone] Karla Goldberg MD [address] [place] [phone] 10/30/2024 1:45 PM CDT Appointment [address] [phone] Karla Goldberg MD [address] [place] [phone] 10/31/2024 1:45 PM CDT Appointment [address] [phone] Karla Goldberg MD [address] [place] [phone] 11/01/2024 1:45 PM CDT Appointment [address] [phone] Karla Goldberg MD [address] [place] [phone] 11/02/2024 1:45 PM CDT Appointment [address] [phone] Karla Goldberg MD [address] [place] [phone] 11/03/2024 1:45 PM CDT Appointment [address] [phone] Karla Goldberg MD [address] [place] [phone] 11/06/2024 1:45 PM CDT Appointment [address] [phone] Karla Goldberg MD [address] [place] [phone] 11/07/2024 1:45 PM CDT Appointment [address] [phone] Karla Goldberg MD [address] [place] [phone] 11/08/2024 1:45 PM CDT Appointment [address] [phone] Karla Goldberg MD [address] [place] [phone] 11/09/2024 1:45 PM CDT Appointment [address] [phone] Karla Goldberg MD [address] [place] [phone] 11/10/2024 1:45 PM CDT Appointment [address] [phone] Karla Glodberg MD [address] [place] [phone] 11/13/2024 1:45 PM CDT Appointment [address] [phone] Karla Goldberg MD [address] [place] [phone] 11/14/2024 1:45 PM CDT Appointment [address] [phone] Karla Goldberg MD [address] [place] [phone] 11/15/2024 12:45 PM CDT Appointment [address] [phone] Karla Goldberg MD [address] [place] [phone] 11/16/2024 12:45 PM CDT Appointment [address] [phone] Karla Goldberg MD [address] [place] [phone] 11/17/2024 1:45 PM CDT Appointment [address] [phone] Karla Goldberg MD [address] [place] [phone] 11/20/2024 1:45 PM CDT Appointment [address] [phone] Karla Goldberg MD [address] [place] [phone] 11/21/2024 1:45 PM CDT Appointment [address] [phone] Karla Goldberg MD [address] [place] [phone] 11/22/2024 1:45 PM CDT Appointment [address] [phone] Karla Goldberg MD [address] [place] [phone] 11/23/2024 1:45 PM CDT Appointment [address] [phone] Karla Goldberg MD [address] [place] [phone] 11/24/2024 1:45 PM CDT Appointment [address] [phone] Karla Goldberg MD [address] [place] [phone] 11/27/2024 1:45 PM CDT Appointment [address] [phone] Karla Goldberg MD [address] [place] [phone] 11/28/2024 1:45 PM CDT Appointment [address] [phone] Karla Goldberg MD [address] [place] [phone] documented as of this encounter Visit Diagnoses Not on filedocumented in this encounter Additional Health Concerns Infection Onset Date Last Indicated Resolved Time R/O Respiratory 09/13/2024 09/13/2024 09/13/2024 1 0:56 PM ECHOCARDIOGRAPH TECHNICIAN Assessment Noted Time PHQ-9 Depression Total Score: 1 04/20/20 24 11:16 PM CDT documented as of this encounter Care Teams Pump Machine Operator Relationship Specialty Start Date End Date Anu Thompson DO [address] [place] [address] PCP - General Family Practice 07/21/23 09/17/24 documented as of this encounter
[2024-10-14] MEDS: guaiFENesin 600 mg Tablet 1200 MG PO (11:04)
[2024-10-14] MEDS: aspirin 81 mg EC Tablet PO (11:04)
[2024-10-14] MEDS: clopidogrel 75 mg Tablet PO (11:04)
[2024-10-14] MEDS: metoprolol tartrate 25 mg Tablet PO ×2 (11:04→20:28)
[2024-10-14] MEDS: vancomycin 2,000 MG/400 ML PIGGYBACK 200 MG IV (11:06)
--- NOTE | 2024-10-14 15:18 | PHA.VACGOAL ---
Vancomycin Goal - Goal Vancomycin Goal:: 15-20 mg/L Vancomycin Indication:: Pneumonia - Therapy Current therapy:: Pip/Tazo, Cefepime Day of therpy:: Day [1]of [] . Actual body weight (kg): 78.517 kg - Data Labs: WBC 14.99 10^3/uL (3.29-11.43) H 10/14/24 01:17 RBC 4.41 10^6/uL (3.85-5.65) 10/14/24 01:17 Hgb 13.10 g/dL (11.27-16.99) 10/14/24 01:17 Hct 41.1 % (36-47) 10/14/24 01:17 MCV 93.2 fl (85-98) 10/14/24 01:17 MCH 29.7 pg (27-33) 10/14/24 01:17 MCHC 31.9 g/dL (30-55) 10/14/24 01:17 RDW 14.5 % (12.1-15.1) 10/14/24 01:17 Sodium 140 mmol/L (136-145) 10/14/24 01:17 Potassium 4.5 mmol/L (3.5-5.1) 10/14/24 01:17 Chloride 95 mmol/L (98-107) L 10/14/24 01:17 Carbon Dioxide 31 mmol/L (22-29) H 10/14/24 01:17 Anion Gap 18.5 (5-19) 10/14/24 01:17 BUN 47 mg/dL (6-20) H 10/14/24 01:17 Creatinine 1.3 mg/dL (0.5-0.9) H 10/14/24 01:17 GFR Calculation 43.2 mL/min (90-130) L 10/14/24 01:17 Treatment plan:: new consult Regimen:: New start vancomycin for pneumonia. No prior history of vancomycin found. Received 2000 mg load dose. Started on maintenance dose of 500 mg q12h based on population based pharmacokinetic nomogram.
--- NOTE | 2024-10-14 16:14 | CTR_ITS ---
PROCEDURE INFORMATION: Exam: CTA Chest With Contrast Exam date and time: 10/14/2024 5:40 PM Age: 49 years old Clinical indication: Shortness of breath; Additional info: SOB TECHNIQUE: Imaging protocol: Computed tomographic angiography of the chest with contrast. Exam focused on the arteries. 3D rendering (Not supervised by radiologist): MIP and/or 3D reconstructed images were created by the technologist. Radiation optimization: All CT scans at this facility use at least one of these dose optimization techniques: automated exposure control; mA and/or kV adjustment per patient size (includes targeted exams where dose is matched to clinical indication); or iterative reconstruction. Contrast material: OMNI 350; Contrast volume: 86 ml; Contrast route: INTRAVENOUS (IV); COMPARISON: CT angio chest PE protcl [id number] 08/22/2024 5:39 PM RADIATION DOSE METRICS: Total DLP (mGy-cm): 409.46 FINDINGS: Tubes, catheters and devices: Tracheostomy tube is appropriately positioned. Pulmonary arteries: The main pulmonary artery is dilated to 4.1 cm. The pulmonary arteries are adequately opacified for evaluation to the subsegmental level. There is no filling defect to suggest embolism. Aorta: The ascending aorta is mildly dilated measuring 4 cm diameter. Larynx: Laryngeal mass and airway effacement at the glottis is partially imaged. Lungs: Mild dependent reticular opacity in the upper lobes consistent with subsegmental atelectasis. Moderate ill-defined coarse reticular opacity in the lower lobes, right middle lobe and lingula suggests scarring and atelectasis but is nonspecific. Pleural spaces: There is no pleural effusion or pneumothorax. Heart: There is mild cardiac enlargement. There is no pericardial effusion. Lymph nodes: There is no mediastinal or hilar lymphadenopathy. Diaphragm: There is mild asymmetric elevation of the right hemidiaphragm. Intraperitoneal space: Visible structures in the upper abdomen are unremarkable. Bones/joints: There are multiple healed right rib fractures. No acute osseous findings. Soft tissues: The extrathoracic soft tissues are unremarkable. CT/CT angio chest PE protcl [id number] IMPRESSION: 1. No pulmonary embolism. 2. Coarse reticular opacity in the lung bases is progressive since 08/22/2024. Probable scarring and atelectasis. Superimposed infection cannot be excluded. 3. Satisfactory position of the tracheostomy tube. 4. Partially imaged laryngeal mass. 5. Mildly dilated ascending thoracic aorta measuring 4 cm diameter. Recommend clinical assessment and follow-up. 6. Dilated main pulmonary artery. Possible pulmonary hypertension.
--- NOTE | 2024-10-14 16:17 | P.PN_ITS ---
Subjective 2 Subjective: Patient was seen this morning, she is alert oriented x 3, following all commands, trach collar in place, she feels significantly better, she reports that she had chemoradiation about a week ago, she does not have her teeth, no chest pain, no palpitations, no nausea, no vomiting Vitals/I&O/Wt Last Vital Signs Temp 97.8 F 10/14/24 08:24 Pulse 67 10/14/24 08:24 Resp 18 10/14/24 10:21 BP 114/78 10/14/24 08:24 Pulse Ox 96 10/14/24 08:24 O2 Del Method Trach Collar 10/14/24 08:24 O2 Flow Rate 10 10/14/24 05:57 FiO2 30 10/14/24 07:59 10/14/24 10/14/24 10/14/24 06:59 14:59 22:59 Intake Total 389.1 / 389.1 Balance 389.1 / 389.1 Weight last 48 hrs Weight 78.517 kg Weight 78.834 kg Weight 68.946 kg Physical Exam 2 Const: COMMON NORMALS: no acute distress and patient oriented x3 Neck/C-Spine: OTHER: Tracheostomy in place, trach collar in place Resp: COMMON NORMALS: normal respiratory effort, No retractions and No use of accessory muscles OTHER: Lungs wheezing in all lung walsh Cardio: COMMON NORMALS: regular rate, regular rhythm, S1 normal heart sound present and S2 normal heart sound present RATE: regular rate RHYTHM: r egular rhythm HEART SOUNDS: S1 normal heart sound present and S2 normal heart sound present GI: COMMON NORMALS: Normal to inspection, nondistended, normoactive bowel sounds present and non-tender Extremity: COMMON NORMALS: no pedal edema Neuro: COMMON NORMALS: patient oriented x3 Psych: COMMON NORMALS: mental status grossly normal Data 10/14/24 01:17 10/14/24 01:17 A&P Assessment and plan (1) Diastolic heart failure: (2) Laryngeal mass: (3) Dysphagia: (4) CKD (chronic kidney disease): (5) Cancer of larynx: (6) Tardive dyskinesia: (7) Hypoxic respiratory failure: (8) COPD (chronic obstructive pulmonary disease): (9) Pneumonia: (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: Plan Acute hypoxic respiratory failure -Multifactorial -Secondary to pneumonia, concerns for healthcare associate pneumonia due to recent hospitalization -she is on active chemo and radiation, immunocompromised state -MRSA nares was negative during possible hospitalization Plan -Monitor respiratory status closely -Continue cefepime -Continue vancomycin -DuoNeb -Budesonide -CT angiogram of the chest Diet, she does report she eats a regular diet, however she does not have her teeth -Dysphagia level 6 diet, mildly thickened, speech therapy eval NSTEMI -Serial EKGs, start troponins, telemetry monitoring -Cardiac echo ordered -Heparin drip -Aspirin, statin, Plavix, metoprolol PEG tube feeds: Jevity 1.2: With water flushes requested 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, status post radiation therapy STEMI status post PCI 919 History of PEG tube placement 05/19, however currently not in use, plans on use in the near future with further chemoradiation Status post tracheostomy 920 Full code Continue dual antiplatelet therapy patient recently had a stent April last year PDMP PDMP Reviewed: Not Reviewed Attestations 2 Medical Necessity Statement*: Patient requires hospitalization for acute hypoxic respiratory failure, secondary to pneumonia, NSTEMI Diagnoses Diastolic heart failure I50.30 Laryngeal mass J38.7 Dysphagia R13.10 CKD (chronic kidney disease) N18.9 Cancer of larynx C32.9 Tardive dyskinesia G24.01 Hypoxic respiratory failure J96.91 COPD (chronic obstructive pulmonary disease) J44.9 Pneumonia J18.9 Chemotherapy-induced lung disease J98.4; T45.1X5A
[2024-10-14] MEDS: iohexol 350 mg/mL 500 mL Btl (per mL) IV (17:44)
[2024-10-14] MEDS: HYDROcodone-acetaminophen 7.5-325 mg Tablet 1 TAB PO (17:59)
[2024-10-14] MEDS: OLANZapine 5 mg TABLET PO (17:59)
[2024-10-14 19:15] LABS: Partial Thromboplastin Time 27.4 SECONDS (23.9-36.7)
[2024-10-14 19:18] LABS: D Dimer 0.33 ug/mLFEU (0-0.59)
[2024-10-14 19:20] LABS: Troponin T (5th) Once 27 ng/L (0-10)
[2024-10-14 19:45] LABS: Free T4 Free Thyroxine 2.65 ng/dL (0.82-1.77); T3 Free 3.8 PG/ML (2.0-4.4); Thyroid Stimulating Hormone 0.07 uIU/mL (0.27-4.20)
[2024-10-14] MEDS: TRAMadol 50 mg Tablet PO (20:27)
[2024-10-14] MEDS: atorvastatin 40 mg Tablet PO (20:28)
[2024-10-14] MEDS: enoxaparin 80 mg/0.8 mL Syringe SUBCUT (20:28)
[2024-10-15] VITALS (11 sets, daily range): BP systolic 98–124; BP diastolic 60–78; PULSE 60–75; RESP 12–24; TEMP 36.3–37.1; O2SAT 92–100
[2024-10-15] MEDS: vancomycin 500 MG in sodium chloride 0.9% (plus) 100 ML 100 MG IV ×2 (01:01→12:47)
[2024-10-15 01:25] LABS: Amphetamines Screen Urine Negative (Negative); Barbiturates Screen Urine Negative (Negative); Benzodiazepines Screen Urine Positive (Negative); Cocaine Screen Urine Negative (Negative); Opiate Screen Urine Positive (Negative); PCP Screen Urine Negative (Negative); THC Screen Urine Negative (Negative)
--- NOTE | 2024-10-15 01:45 | PC.NURSE ---
Family left at 0140; family states that their wishes are for patient to remain on bipap until they return in the morning. Family voices understanding that bipap is not typically used with comfort measures and can sustain/prolong life; family is agreeable to removing bipap in the morning when they return.
[2024-10-15 06:02] LABS: Basophils % 0.1 %; Eosinophils % 0.2 %; Hematocrit 32.1 % (36-47); Lymphocytes # 1.3 10^3/uL (0.8-4.8); Lymphocytes % 15.8 %; Mean Corpuscular HGB Conc 32.1 g/dL (30-55); Mean Corpuscular Hemoglobin 29.8 pg (27-33); Mean Corpuscular Volume 92.8 fl (85-98); Mean Platelet Volume 9.2 fL (7.4-10.4); Monocytes # 0.6 10^3/uL (0.2-0.9); Monocytes % 7.4 %; Neutrophils # 6.36 10^3/uL (1.8-7.7); Neutrophils % 76.1 %; Nucleated Red Blood Cells % 0 %; Platelet Count 179 10^3/cmm (157-399); Red Blood Count 3.46 10^6/uL (3.85-5.65); Red Cell Distribution Width 14.9 % (12.1-15.1); White Blood Count 8.36 10^3/uL (3.29-11.43)
[2024-10-15] MEDS: cefepime 2,000 mg SDV 2000 MG IVP (06:02)
[2024-10-15] MEDS: HYDROcodone-acetaminophen 7.5-325 mg Tablet 1 TAB PO ×3 (06:06→20:23)
[2024-10-15 06:25] LABS: Anion Gap 12.4 (5-19); Blood Urea Nitrogen 46 mg/dL (6-20); C Reactive Protein 18.5 mg/L (0.0-4.9); Calcium 8.9 mg/dL (8.5-10.5); Carbon Dioxide 28 mmol/L (22-29); Chloride 100 mmol/L (98-107); Glomerular Filtration Rate 36.6 mL/min (90-130); Glucose 110 mg/dL (65-115); Magnesium 2.2 mg/dL (1.7-2.3); Osmolality Calculated 297 mOsm/kg (285-295); Phosphorus 3.1 mg/dL (2.5-4.5); Potassium 3.4 mmol/L (3.5-5.1); Sodium 137 mmol/L (136-145)
[2024-10-15 06:27] LABS: Creatinine Clr Calc Pharmacy 46.7685
[2024-10-15] MEDS: clopidogrel 75 mg Tablet PO (08:39)
[2024-10-15] MEDS: aspirin 81 mg EC Tablet PO (08:39)
[2024-10-15] MEDS: metoprolol tartrate 25 mg Tablet PO ×2 (08:39→20:23)
[2024-10-15] MEDS: guaiFENesin 600 mg Tablet 1200 MG PO ×2 (08:39→20:24)
[2024-10-15] MEDS: TRAMadol 50 mg Tablet PO (08:39)
[2024-10-15] MEDS: enoxaparin 80 mg/0.8 mL Syringe SUBCUT (08:40)
[2024-10-15] MEDS: sodium chloride 0.9% 1,000 ML 50 ML IV (10:11)
--- NOTE | 2024-10-15 16:14 | USR_ITS ---
PROCEDURE INFORMATION: Exam: US Duplex Lower Extremity Veins, Bilateral Exam date and time: 10/14/2024 4:43 PM Age: 49 years old Clinical indication: Edema, localized; Lower extremity, bilateral; Additional info: Swelling TECHNIQUE: Imaging protocol: Real-time duplex ultrasound of the bilateral extremities with 2-D lopez scale, color Doppler flow and spectral waveform analysis including responses to compression and other maneuvers (when performed) with image documentation. Complete exam focused on the lower extremity veins. COMPARISON: No relevant prior studies available. FINDINGS: Evaluated veins include bilateral common femoral, proximal profunda femoral, proximal/mid/distal superficial femoral, popliteal, posterior tibial, peroneal, and proximal greater saphenous veins. Right leg: No visible clot in the included veins. The included veins appear normally compressible. Duplex Doppler evaluation demonstrates flow in the evaluated veins. Left leg: No visible clot in the included veins. The included veins appear normally compressible. Duplex Doppler evaluation demonstrates flow in the evaluated veins. US/[place] [id number] IMPRESSION: 1. No evidence of acute right lower extremity DVT. 2. No evidence of acute left lower extremity DVT.
--- NOTE | 2024-10-15 17:23 | P.PN_ITS ---
Subjective 2 Subjective: Patient was seen this morning, denies any fevers, no chills, tracheostomy does have increased output, does have a cough, and patient were concerned about her appointment tomorrow, he has an appointment tomorrow for radiation chemo, unfortunately with her pneumonia chemo and radiation will have to be delayed for now, until she gets better, she voiced understanding, questions answered, Vitals/I&O/Wt Last Vital Signs Temp 98.4 F 10/15/24 12:00 Pulse 63 10/15/24 12:00 Resp 12 10/15/24 12:00 BP 113/60 10/15/24 12:00 Pulse Ox 96 10/15/24 12:00 O2 Del Method Trach Collar 10/15/24 12:00 O2 Flow Rate 7.5 10/15/24 12:00 FiO2 40 10/15/24 07:48 10/15/24 10/15/24 10/15/24 06:59 14:59 22:59 Intake Total 100 / 729.1 920.467 / 920.467 Balance 100 / 729.1 920.467 / 920.467 Weight last 48 hrs Weight 81.42 kg Weight 78.517 kg Weight 78.834 kg Weight 68.946 kg Physical Exam 2 Const: COMMON NORMALS: no acute distress and patient oriented x3 Resp: COMMON NORMALS: normal respiratory effort, No retractions and No use of accessory muscles AUSCULTATION: crackles and wheezes Cardio: COMMON NORMALS: regular rate, regular rhythm, S1 normal heart sound present and S2 normal heart sound present RATE: regular rate RHYTHM: r egular rhythm HEART SOUNDS: S1 normal heart sound present and S2 normal heart sound present GI: COMMON NORMALS: Normal to inspection, nondistended, normoactive bowel sounds present and non-tender Extremity: COMMON NORMALS: no pedal edema Neuro: COMMON NORMALS: patient oriented x3 Psych: COMMON NORMALS: mental status grossly normal Data 10/15/24 05:44 10/15/24 05:44 Micro: Microbiology 10/14/24 18:38 Blood Culture - Preliminary Blood SPECIMEN COLLECTED 10/14/24 18:45 Blood Culture - Preliminary Blood SPECIMEN COLLECTED A&P Assessment and plan (1) Diastolic heart failure: (2) Laryngeal mass: (3) Dysphagia: (4) CKD (chronic kidney disease): (5) Cancer of larynx: (6) Tardive dyskinesia: (7) Hypoxic respiratory failure: (8) COPD (chronic obstructive pulmonary disease): (9) Pneumonia: (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 No pulmonary embolism. 2. Coarse reticular opacity in the lung bases is progressive since 08/22/2024. Probable scarring and atelectasis. Superimposed infection cannot be excluded. 3. Satisfactory position of the tracheostomy tube. 4. Partially imaged laryngeal mass. 5. Mildly dilated ascending thoracic aorta measuring 4 cm diameter. Recommend clinical assessment and follow-up. 6. Dilated main pulmonary artery. Possible pulmonary hypertension. 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, status post radiation therapy STEMI status post PCI 05/11 History of PEG tube placement 05/19, however currently not in use, plans on use in the near future with further chemoradiation Status post tracheostomy 920 Full code Continue dual antiplatelet therapy patient recently had a stent April last year PDMP PDMP Reviewed: Not Reviewed Attestations 2 Medical Necessity Statement*: Patient requires hospitalization for acute hypoxic respiratory failure secondary to pneumonia, NSTEMI Diagnoses Diastolic heart failure I50.30 Laryngeal mass J38.7 Dysphagia R13.10 CKD (chronic kidney disease) N18.9 Cancer of larynx C32.9 Tardive dyskinesia G24.01 Hypoxic respiratory failure J96.91 COPD (chronic obstructive pulmonary disease) J44.9 Pneumonia J18.9 Chemotherapy-induced lung disease J98.4; T45.1X5A
[2024-10-15] MEDS: OLANZapine 5 mg TABLET PO (17:30)
[2024-10-15] MEDS: cefepime 1,000 mg SDV 1000 MG IVP (17:31)
[2024-10-15] MEDS: ipratropium-albuterol 3 mL Neb INHALATION (19:36)
[2024-10-15] MEDS: atorvastatin 40 mg Tablet PO (20:23)
[2024-10-15 20:28] LABS: Basophils % 0.3 %; Eosinophils % 0.5 %; Hematocrit 32.9 % (36-47); Lymphocytes # 1.7 10^3/uL (0.8-4.8); Lymphocytes % 21.6 %; Mean Corpuscular HGB Conc 31.3 g/dL (30-55); Mean Corpuscular Hemoglobin 30.1 pg (27-33); Mean Corpuscular Volume 96.2 fl (85-98); Mean Platelet Volume 9.4 fL (7.4-10.4); Monocytes # 0.7 10^3/uL (0.2-0.9); Monocytes % 9.3 %; Neutrophils # 5.32 10^3/uL (1.8-7.7); Neutrophils % 67.8 %; Nucleated Red Blood Cells % 0 %; Platelet Count 148 10^3/cmm (157-399); Red Blood Count 3.42 10^6/uL (3.85-5.65); Red Cell Distribution Width 15.1 % (12.1-15.1); White Blood Count 7.84 10^3/uL (3.29-11.43)
[2024-10-16] VITALS (10 sets, daily range): BP systolic 108–153; BP diastolic 64–81; PULSE 63–79; RESP 17–22; TEMP 36.6–37.3; O2SAT 91–100
[2024-10-16] MEDS: vancomycin 500 MG in sodium chloride 0.9% (plus) 100 ML 100 MG IV ×2 (00:09→13:17)
[2024-10-16 01:38] LABS: Basophils % 0.3 %; Eosinophils # 0.1 10^3/uL (0.0-0.8); Eosinophils % 0.8 %; Hematocrit 30.4 % (36-47); Lymphocytes # 1.1 10^3/uL (0.8-4.8); Lymphocytes % 19.2 %; Mean Corpuscular HGB Conc 31.6 g/dL (30-55); Mean Corpuscular Hemoglobin 30.6 pg (27-33); Mean Corpuscular Volume 96.8 fl (85-98); Monocytes # 0.5 10^3/uL (0.2-0.9); Monocytes % 8.2 %; Neutrophils # 4.22 10^3/uL (1.8-7.7); Nucleated Red Blood Cells % 0 %; Platelet Count 149 10^3/cmm (157-399); Red Blood Count 3.14 10^6/uL (3.85-5.65); Red Cell Distribution Width 15.1 % (12.1-15.1); White Blood Count 5.95 10^3/uL (3.29-11.43)
[2024-10-16 01:56] LABS: Anion Gap 10.7 (5-19); Blood Urea Nitrogen 44 mg/dL (6-20); Calcium 8.2 mg/dL (8.5-10.5); Carbon Dioxide 26 mmol/L (22-29); Chloride 106 mmol/L (98-107); Creatinine Clr Calc Pharmacy 50.1091; Glomerular Filtration Rate 39.6 mL/min (90-130); Glucose 86 mg/dL (65-115); Osmolality Calculated 298 mOsm/kg (285-295); Potassium 3.7 mmol/L (3.5-5.1); Sodium 139 mmol/L (136-145)
[2024-10-16] MEDS: HYDROcodone-acetaminophen 7.5-325 mg Tablet 1 TAB PO ×4 (03:08→23:01)
[2024-10-16] MEDS: cefepime 1,000 mg SDV 1000 MG IVP ×2 (05:42→16:56)
--- NOTE | 2024-10-16 09:45 | PC.CHAP ---
Pastoral Care Encounter/Spiritual Assessment Type of Contact [] Declined tail ripper visit [] Patient/Family/Request visit [] Outpatient visit [] Follow-up visit [] Physician referral [] Code/Alert [x] Routine visit [] Staff referral [] Actively dying [] Patient sleeping [] Family support [] [] Out of room [] Palliative care [] [] Receiving care in room [] Pre-surgical visit [] Trauma [] Long length of stay [] ICU visit [] Other: Relational/Emotional Strength [] Patient feels connected with others/family/visitors/staff [] Distress [] Loneliness/isolation [] Abandonment Spirituality of Patient [] Person of Brittanie [] Attends Jewish of their [place]anie [] Believes in Prayer [] Reads Bible or Pentecostal materials [] There are Spiritual issues to be addressed Regrader Interventions [] Prayer [] Active listening [] Non-anxious presence [] Spiritual/emotional support [] Crisis/trauma care [] Spiritual counseling [] Bereavement support [] Provided bereavement packet [] Provided Bible/devotional materials [] Provided toy/stuffed animal, coloring book to patient or family member [] Provided Communion [] Anointing/[place] [] Salvation [] Completed spiritual assessment [] Other: Impact on Illness or Injury [] Angry [] Fearful [] Anxious [] Often cries [] Exhaustion [] Unable to work [] Unable to attend scientology [] Unable to walk/stand [] Unable to read [] Unable to drive [] Unable to eat/drink [] Unable to sleep [] Unable to be with family [] Patient intubated [] Other: Summary precaution Time spent with patient
[2024-10-16] MEDS: guaiFENesin 600 mg Tablet 1200 MG PO ×2 (10:37→20:27)
[2024-10-16] MEDS: metoprolol tartrate 25 mg Tablet PO ×2 (10:37→20:27)
[2024-10-16] MEDS: aspirin 81 mg EC Tablet PO (10:37)
[2024-10-16] MEDS: ALPRAZolam 0.5 mg Tablet PO (10:37)
[2024-10-16] MEDS: enoxaparin 80 mg/0.8 mL Syringe SUBCUT (10:38)
[2024-10-16] MEDS: clopidogrel 75 mg Tablet PO (10:38)
[2024-10-16] MEDS: sodium chloride 0.9% 1,000 ML 50 ML IV (10:44)
[2024-10-16] MEDS: OLANZapine 5 mg TABLET PO (16:56)
--- NOTE | 2024-10-16 18:44 | P.PN_ITS ---
Subjective 2 Subjective: Patient was seen this morning, she continues to complain of wheezing and shortness of breath, has a cough Vitals/I&O/Wt Last Vital Signs Temp 98.2 F 10/16/24 16:00 Pulse 66 10/16/24 16:00 Resp 19 H 10/16/24 16:00 BP 108/70 10/16/24 16:00 Pulse Ox 100 10/16/24 16:00 O2 Del Method Trach Collar 10/16/24 16:00 O2 Flow Rate 8 10/15/24 20:00 FiO2 40 10/16/24 07:57 10/16/24 10/16/24 10/16/24 06:59 14:59 22:59 Intake Total 1020 / 2540.467 780 / 780 480 / 1260 Output Total 300 / 300 Balance 1020 / 1865.467 780 / 780 180 / 960 Weight last 48 hrs Weight 81.465 kg Weight 81.42 kg Physical Exam 2 Const: COMMON NORMALS: no acute distress and patient oriented x3 Resp: COMMON NORMALS: normal respiratory effort, No retractions and No use of accessory muscles AUSCULTATION: wheezes Cardio: COMMON NORMALS: regular rate, regular rhythm, S1 normal heart sound present and S2 normal heart sound present RATE: regular rate RHYTHM: r egular rhythm HEART SOUNDS: S1 normal heart sound present and S2 normal heart sound present GI: COMMON NORMALS: Normal to inspection, nondistended, normoactive bowel sounds present and non-tender Extremity: COMMON NORMALS: no pedal edema Neuro: COMMON NORMALS: patient oriented x3 Psych: COMMON NORMALS: mental status grossly normal Data 10/16/24 01:15 10/16/24 01:15 Micro: Microbiology 10/15/24 01:07 Urine Culture - Preliminary Urine,Voided 10/14/24 18:38 Blood Culture - Preliminary Blood NEGATIVE TO DATE 10/14/24 18:45 Blood Culture - Preliminary Blood NEGATIVE TO DATE A&P Assessment and plan (1) Diastolic heart failure: (2) Laryngeal mass: (3) Dysphagia: (4) CKD (chronic kidney disease): (5) Cancer of larynx: (6) Tardive dyskinesia: (7) Hypoxic respiratory failure: (8) COPD (chronic obstructive pulmonary disease): (9) Pneumonia: (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 No pulmonary embolism. 2. Coarse reticular opacity in the lung bases is progressive since 08/22/2024. Probable scarring and atelectasis. Superimposed infection cannot be excluded. 3. Satisfactory position of the tracheostomy tube. 4. Partially imaged laryngeal mass. 5. Mildly dilated ascending thoracic aorta measuring 4 cm diameter. Recommend clinical assessment and follow-up. 6. Dilated main pulmonary artery. Possible pulmonary hypertension. 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, status post radiation therapy STEMI status post PCI 05/11 History of PEG tube placement 05/19, however currently not in use, plans on use in the near future with further chemoradiation Status post tracheostomy 920 Full code Continue dual antiplatelet therapy patient recently had a stent April last year Plan for today pleat 48 hours of anticoagulant therapy, continue IV antibiotics, continue to monitor respiratory status closely PDMP PDMP Reviewed: Not Reviewed Attestations 2 Medical Necessity Statement*: Patient requires hospitalization for acute hypoxic respiratory failure secondary to pneumonia Diagnoses Diastolic heart failure I50.30 Laryngeal mass J38.7 Dysphagia R13.10 CKD (chronic kidney disease) N18.9 Cancer of larynx C32.9 Tardive dyskinesia G24.01 Hypoxic respiratory failure J96.91 COPD (chronic obstructive pulmonary disease) J44.9 Pneumonia J18.9 Chemotherapy-induced lung disease J98.4; T45.1X5A
[2024-10-16] MEDS: ipratropium-albuterol 3 mL Neb INHALATION (19:45)
[2024-10-16] MEDS: TRAMadol 50 mg Tablet PO (20:26)
[2024-10-16] MEDS: atorvastatin 40 mg Tablet PO (20:27)
[2024-10-17] MEDS: VANCOMYCIN ADD-Vantage 750 MG in 0.9% NaCl ADD-Vantage 250 ML 250 MG IV (01:36)
[2024-10-17 03:34] VITALS: BP 96/60; PULSE 62; RESP 17; TEMP 37.3; O2SAT 97
[2024-10-17 04:50] LABS: Basophils % 0.1 %; Eosinophils % 0.4 %; Lymphocytes # 1.2 10^3/uL (0.8-4.8); Lymphocytes % 16.6 %; Mean Corpuscular HGB Conc 31.3 g/dL (30-55); Mean Corpuscular Hemoglobin 29.9 pg (27-33); Mean Corpuscular Volume 95.5 fl (85-98); Mean Platelet Volume 10.1 fL (7.4-10.4); Monocytes # 0.6 10^3/uL (0.2-0.9); Monocytes % 8.1 %; Neutrophils # 5.14 10^3/uL (1.8-7.7); Neutrophils % 74.5 %; Nucleated Red Blood Cells % 0 %; Platelet Count 138 10^3/cmm (157-399); Red Blood Count 3.14 10^6/uL (3.85-5.65); Red Cell Distribution Width 15.1 % (12.1-15.1); White Blood Count 6.91 10^3/uL (3.29-11.43)
[2024-10-17 05:09] LABS: Anion Gap 13.9 (5-19); Blood Urea Nitrogen 26 mg/dL (6-20); Calcium 8.3 mg/dL (8.5-10.5); Carbon Dioxide 23 mmol/L (22-29); Chloride 106 mmol/L (98-107); Creatinine Clr Calc Pharmacy 58.4764; Glomerular Filtration Rate 47.4 mL/min (90-130); Glucose 109 mg/dL (65-115); Osmolality Calculated 293 mOsm/kg (285-295); Potassium 3.9 mmol/L (3.5-5.1); Sodium 139 mmol/L (136-145)
[2024-10-17] MEDS: HYDROcodone-acetaminophen 7.5-325 mg Tablet 1 TAB PO ×2 (05:24→11:32)
[2024-10-17] MEDS: cefepime 1,000 mg SDV 1000 MG IVP (05:24)
[2024-10-17 06:00] VITALS: BMI 29.9
[2024-10-17 08:23] VITALS: BP 124/70; PULSE 72; RESP 19; TEMP 37.3; O2SAT 97
[2024-10-17] MEDS: guaiFENesin 600 mg Tablet 1200 MG PO (08:52)
[2024-10-17] MEDS: enoxaparin 40 mg/0.4 mL Syringe SUBCUT (08:52)
[2024-10-17] MEDS: aspirin 81 mg EC Tablet PO (08:52)
[2024-10-17] MEDS: metoprolol tartrate 25 mg Tablet PO (08:52)
[2024-10-17] MEDS: clopidogrel 75 mg Tablet PO (08:52)
[2024-10-17] MEDS: TRAMadol 50 mg Tablet PO (08:56)
[2024-10-17 09:08] VITALS: PULSE 68; RESP 16; O2SAT 95
[2024-10-17 09:18] VITALS: O2SAT 96
--- NOTE | 2024-10-17 11:54 | P.DS_ITS ---
Discharge Providers Date of Admission: 10/14/24 02:59 Date of Discharge: October 17, 2024 Attending Provider at Admission: Natalia Blank MD Attending Provider at Discharge: Carmelo Thomas MD Primary Care Provider: Edilma Stringer Diagnoses at Discharge Discharge Diagnosis (1) Diastolic heart failure: Status: Acute (2) Laryngeal mass: Status: Acute (3) Dysphagia: Status: Acute (4) CKD (chronic kidney disease): Status: Chronic (5) Cancer of larynx: Status: Acute (6) Tardive dyskinesia: Status: Acute (7) Hypoxic respiratory failure: Status: Acute (8) COPD (chronic obstructive pulmonary disease): Status: Acute (9) Pneumonia: Status: Acute (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: Status: Acute Reason for Visit Reason for Visit: resp distress Hospital Course Hospital Course Yamileth Feliciano is a 49 year old female history of moderately di fferentiated squamous cell laryngeal mass cancer, at baseline patient requires 3 L of oxygen, recently started radiation therapy completed 3 cycles and 2 cycles of chemotherapy, has quit smoking, patient has history of STEMI status post PCI 05/11, PEG tube placement 05/19, tracheostomy 05/12 presented with worsening of shortness of breath Patient was admitted to [facility] acute hypoxic respiratory failure -Multifactorial -Secondary to pneumonia, concerns for healthcare associate pneumonia due to recent hospitalization -she is on active chemo and radiation, immunocompromised state -MRSA nares was negative during possible hospitalization CT/CT angio chest PE protcl [id number] IMPRESSION: 1. No pulmonary embolism. 2. Coarse reticular opacity in the lung bases is progressive since 08/22/2024. Probable scarring and atelectasis. Superimposed infection cannot be excluded. 3. Satisfactory position of the tracheostomy tube. 4. Partially imaged laryngeal mass. 5. Mildly dilated ascending thoracic aorta measuring 4 cm diameter. Recommend clinical assessment and follow-up. 6. Dilated main pulmonary artery. Possible pulmonary hypertension. 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 Discussed with patient to continue to self isolate, socially distance, facemask Physical Exam Const: COMMON NORMALS: no acute distress and patient oriented x3 OTHER: Tracheostomy in place Resp: COMMON NORMALS: normal respiratory effort, No retractions, No use of accessory muscles and clear to auscultation bilaterally AUSCULTATION: clear to auscultation bilaterally Cardio: COMMON NORMALS: regular rate, regular rhythm, S1 normal heart sound present and S2 normal heart sound present RATE: regular rate RHYTHM: regular rhythm HEART SOUNDS: S1 normal heart sound present and S2 normal heart sound present GI: COMMON NORMALS: Normal to inspection, nondistended, normoactive bowel dilip nds present and non-tender Extremity: COMMON NORMALS: no pedal edema Neuro: COMMON NORMALS: patient oriented x3 Psych: COMMON NORMALS: mental status grossly normal Discharge Data Studies Completed and Pending Completed Studies During Hospitalization Category Date Time Status CT angio chest PE protcl [id number] Stat Cat Scan 10/14/24 16:14 Completed XR chest 1V portable [id number] Stat Exams 10/14/24 00:42 [place] [id number] Routine Ultrasound 10/15/24 16:14 Completed CV. echo limited [id number] Routine Ultrasound 10/14/24 05:13 Completed Pending at discharge Category Date Time Status Basic Metabolic Panel AM LABS Lab 10/18/24 04:00 Ordered Blood Culture Stat Lab 10/14/24 18:38 Results Complete Blood Count w/Auto AM LABS Lab 10/18/24 04:00 Ordered Sputum Culture and Gram Stain Stat Lab 10/14/24 16:19 Uncollected Urine Culture Stat Lab 10/14/24 16:19 Results Vancomycin Trough Timed Lab 10/18/24 12:00 Ordered Radiology Impressions Chest X-Ray 10/14/24 00:42 IMPRESSION: As above. Chest CTA 10/14/24 16:14 IMPRESSION: 1. No pulmonary embolism. 2. Coarse reticular opacity in the lung bases is progressive since 08/22/2024. Probable scarring and atelectasis. Superimposed infection cannot be excluded. 3. Satisfactory position of the tracheostomy tube. 4. Partially imaged laryngeal mass. 5. Mildly dilated ascending thoracic aorta measuring 4 cm diameter. Recommend clinical assessment and follow-up. 6. Dilated main pulmonary artery. Possible pulmonary hypertension. Venous Duplex 10/15/24 16:14 IMPRESSION: 1. No evidence of acute right lower extremity DVT. 2. No evidence of acute left lower extremity DVT. Laboratory Results WBC 6.91 10^3/uL (3.29-11.43) 10/17/24 04:15 RBC 3.14 10^6/uL (3.85-5.65) L 10/17/24 04:15 Hgb 9.40 g/dL (11.27-16.99) L 10/17/24 04:15 Hct 30.0 % (36-47) L 10/17/24 04:15 MCV 95.5 fl (85-98) 10/17/24 04:15 MCH 29.9 pg (27-33) 10/17/24 04:15 MCHC 31.3 g/dL (30-55) 10/17/24 04:15 RDW 15.1 % (12.1-15.1) 10/17/24 04:15 Plt Count 138 10^3/cmm (157-399) L 10/17/24 04:15 MPV 10.1 fL (7.4-10.4) 10/17/24 04:15 Neut % (Auto) 74.5 % 10/17/24 04:15 Lymph % (Auto) 16.6 % 10/17/24 04:15 [place] % (Auto) 8.1 % 10/17/24 04:15 Eos % (Auto) 0.4 % 10/17/24 04:15 Baso % (Auto) 0.1 % 10/17/24 04:15 Neut # (Auto) 5.14 10^3/uL (1.8-7.7) 10/17/24 04:15 Lymph # (Auto) 1.2 10^3/uL (0.8-4.8) 10/17/24 04:15 [place] # (Auto) 0.6 10^3/uL (0.2-0.9) 10/17/24 04:15 Eos # (Auto) 0.0 10^3/uL (0.0-0.8) 10/17/24 04:15 Baso # (Auto) 0.0 10^3/uL (0.0-0.1) 10/17/24 04:15 Nucleated RBC % (auto) 0 % 10/17/24 04:15 Nucleated RBCs # 0.0 /100WBC 10/17/24 04:15 APTT 27.4 SECONDS (23.9-36.7) 10/14/24 18:45 D-Dimer 0.33 ug/mLFEU (0-0.59) 10/14/24 18:45 Specimen Type Arterial 10/14/24 02:22 Sample Site Brachial, right 10/14/24 02:22 ABG pH 7.39 (7.35-7.45) 10/14/24 02:22 ABG pCO2 53.5 mmHg (35-45) H 10/14/24 02:22 ABG pO2 96.1 mmHg (80.0-100.0) 10/14/24 02:22 ABG PO2/FiO2 Ratio 192 10/14/24 02:22 ABG HCO3 32.4 mmol/L (22-26) H 10/14/24 02:22 ABG O2 Saturation 97.9 10/14/24 02:22 ABG Base Excess 6.0 mmol/L (-2.0-2.0) H 10/14/24 02:22 Huber Test N/a 10/14/24 02:22 A-a O2 Gradient 25.9 mmHg (5-10) H 10/14/24 02:22 Hematocrit 40.1 % (37-47) 10/14/24 02:22 Hgb O2 Saturation 95.9 % (95-100) 10/14/24 02:22 Carboxyhemoglobin 1.0 %THgb (0.4-20.1) 10/14/24 02:22 Methemoglobin 1.0 % (0.4-1.5) 10/14/24 02:22 Total Hemoglobin 13.1 g/dL (12-16) 10/14/24 02:22 Sodium 137.0 mmol/L (131-143) 10/14/24 02:22 Potassium 3.8 mmol/L (3.5-5.0) 10/14/24 02:22 Glucose 167.0 mg/dL (70-115) H 10/14/24 02:22 Ionized Calcium 1.3 mmol/L (1.1-1.4) 10/14/24 02:22 O2 Delivery Device Hag 10/14/24 02:22 O2 Liters/Min 12.0 % 10/14/24 02:22 FiO2 50.0 % 10/14/24 02:22 Battery Service Technician ID [email or web address] 10/14/24 02:22 Sodium 139 mmol/L (136-145) 10/17/24 04:15 Potassium 3.9 mmol/L (3.5-5.1) 10/17/24 04:15 Chloride 106 mmol/L (98-107) 10/17/24 04:15 Carbon Dioxide 23 mmol/L (22-29) 10/17/24 04:15 Anion Gap 13.9 (5-19) 10/17/24 04:15 BUN 26 mg/dL (6-20) H 10/17/24 04:15 Creatinine 1.2 mg/dL (0.5-0.9) H 10/17/24 04:15 GFR Calculation 47.4 mL/min (90-130) L 10/17/24 04:15 Glucose 109 mg/dL (65-115) 10/17/24 04:15 Calculated Osmolality 293 mOsm/kg (285-295) 10/17/24 04:15 Lactic Acid 1.6 mmol/L (0.5-2.2) 10/14/24 01:17 Calcium 8.3 mg/dL (8.5-10.5) L 10/17/24 04:15 Phosphorus 3.1 mg/dL (2.5-4.5) 10/15/24 05:44 Magnesium 2.2 mg/dL (1.7-2.3) 10/15/24 05:44 Total Bilirubin 0.4 mg/dL (0.15-1.2) 10/14/24 01:17 AST 29 U/L (0-32) 10/14/24 01:17 ALT 33 U/L (0-33) 10/14/24 01:17 Alkaline Phosphatase 77 U/L (35-105) 10/14/24 01:17 Troponin T 5th Gen ng/L 27 ng/L (0-10) H 10/14/24 18:45 Troponin T Baseline 22 ng/L (0-10) H 10/14/24 01:17 Troponin T 120 Minute 39.94 ng/L (0-10) H 10/14/24 03:31 Delta Troponin T 17.94 ABS# (0-10) H* 10/14/24 03:31 Troponin T Hi Sens 6Hr 41.42 ng/L (0-10) H 10/14/24 07:02 Troponin T Hi Sens 6Hr Delta 19.42 ng/L (0-12) H* 10/14/24 07:02 C-Reactive Protein 18.5 mg/L (0.0-4.9) H 10/15/24 05:44 NT-Pro-B Natriuret Pep 1698 pg/mL (0-125) H 10/14/24 01:17 Total Protein 6.9 g/dL (6.6-8.7) 10/14/24 01:17 Albumin 3.9 g/dL (3.5-5.2) 10/14/24 01:17 Globulin 3.0 g/dL (1.3-4.6) 10/14/24 01:17 Procalcitonin 0.35 ng/mL (0-0.5) 10/14/24 01:17 TSH 0.07 uIU/mL (0.27-4.20) L 10/14/24 18:45 Free T4 2.65 ng/dL (0.82-1.77) H 10/14/24 18:45 Free T3 3.8 PG/ML (2.0-4.4) 10/14/24 18:45 Vancomycin Trough 11.0 ug/mL (10-15) 10/16/24 12:10 Urine Opiates Screen Positive ng/mL (Negative) H 10/15/24 01:07 Ur Barbiturates Screen Negative ng/mL (Negative) 10/15/24 01:07 Ur Phencyclidine Scrn Negative ng/mL (Negative) 10/15/24 01:07 Ur Amphetamines Screen Negative ng/mL (Negative) 10/15/24 01:07 U Benzodiazepines Scrn Positive ng/mL (Negative) H 10/15/24 01:07 Urine Cocaine Screen Negative ng/mL (Negative) 10/15/24 01:07 U Marijuana (THC) Screen Negative ng/mL (Negative) 10/15/24 01:07 Influenza A (PCR) Negative (Negative) 10/14/24 01:34 Influenza Type B (PCR) Negative (Negative) 10/14/24 01:34 RSV (PCR) Negative (Negative) 10/14/24 01:34 SARS-CoV-2 (PCR) Negative (Negative) 10/14/24 01:34 Vitals Last Vital Signs Temp 99.2 F 10/17/24 08:23 Pulse 68 10/17/24 09:08 Resp 16 10/17/24 09:08 BP 124/70 10/17/24 08:23 Pulse Ox 96 10/17/24 09:18 O2 Del Method HAG 10/17/24 09:08 O2 Flow Rate 6 10/17/24 09:18 FiO2 28 10/17/24 09:18 Discharge Plan Discharge Patient Disposition: Home Condition: Stable Prescriptions: New levofloxacin 750 mg tablet 750 mg PO DAILY 7 Days Qty: 7 0RF Continued atorvastatin 40 mg tablet 40 mg PO BEDTIME Qty: 90 1RF metoprolol tartrate 25 mg tablet 25 mg PO BID@0900,2100 Qty: 180 1RF hydrocodone-acetaminophen 5-325 mg tablet 1 tab PO Q6H PRN (Reason: Pain) olanzapine 5 mg Tablet 5 mg PO QPM tramadol 50 mg Tablet 50 mg PO TID ondansetron 8 mg Tablet,Disintegrating 8 mg PO Q8H PRN (Reason: Nausea And Vomiting) Rx Instructions: start before Chemo alprazolam 0.5 mg Tablet 0.5 mg PO DAILY PRN (Reason: anxiety) aspirin 81 mg Tablet,Delayed Release (Dr/Ec) 81 mg PO DAILY Qty: 30 0RF albuterol sulfate 2.5 mg /3 mL (0.083 %) solution for nebulization 2.5 mg INHALATION Q4H PRN (Reason: shortness of breath or wheezing) Qty: 90 0RF budesonide 0.5 mg/2 mL suspension for nebulization 0.5 mg inhalation BID PRN (Reason: Shortness Of Breath) ipratropium-albuterol 0.5 mg-3 mg(2.5 mg base)/3 mL Solution For Nebulization 3 ml INHALATION QID PRN (Reason: Shortness Of Breath Or Wheezing) clopidogrel [Plavix] 75 mg Tablet 75 mg PO DAILY Rx Instructions: crush 1 tablet and put in gi tube daily paroxetine HCl 40 mg Tablet See Rx Instructions .ROUTE .COMPLEX Rx Instructions: 40 mg orally ;place 1 tab in tube daily hydroxyzine HCl 10 mg Tablet 10 mg PO TID PRN (Reason: Anxiety) albuterol sulfate 90 mcg/actuation HFA aerosol inhaler 2 inh inhalation Q4H PRN (Reason: shortness of breath or wheezing) guaifenesin [Mucinex] 600 mg Tablet Extended Release 12hr 1,200 mg PO BID@0900,2100 Qty: 30 0RF Held hydralazine 50 mg Tablet 50 mg PO TID Hold Instructions: Resume on 10/31/24. hold until you see primary care Discontinued hydrocodone-acetaminophen 7.5-325 mg tablet 1 tab feeding tube Q6H PRN (Reason: Pain) Discharge Orders: Discharge Order (Routine); Ordered 10/17/24 Ordered By: Carmelo Thomas Referrals: Ami Silva FNP [Referring] - 10/20/24 10:00 am Discharge Diet: Cardiac Discharge Activity: Resume usual activity Patient Instructions: Levofloxacin (By mouth) (Levaquin, Levaquin Leva-jacquelin), Hypoxia (GEN), Opioid Safety Activity Restrictions/Additional Instructions: - I have reached out to your oncology team at [facility] they will call you back about further instructions -Take antibiotics as prescribed Discharge Attestations Time Spent in Discharge Care*: greater than 30 min Quality Metrics Clinical Quality Measures [ No reported AMI, CVA or VTE this stay] Coding Level of Care Code 67422 Total time (in minutes) for Discharge: 45 Diagnoses Diastolic heart failure I50.30 Laryngeal mass J38.7 Dysphagia R13.10 CKD (chronic kidney disease) N18.9 Cancer of larynx C32.9 Tardive dyskinesia G24.01 Hypoxic respiratory failure J96.91 COPD (chronic obstructive pulmonary disease) J44.9 Pneumonia J18.9 Chemotherapy-induced lung disease J98.4; T45.1X5A
[2024-10-17 12:11] VITALS: BP 124/70; PULSE 72; RESP 16; TEMP 37.3; O2SAT 97
== END 2024-10-17 12:12 | disposition home or self-care (01) | DRG 193 ==
LOC: ER 02:59 → MEDSURG 04:10
PROVIDERS: Admitting Provider Internal Medicine; Emergency Provider Emergency Medicine; PCP Nurse Practitioner Adult Health; Visit Provider Family Medicine
DX: J18.9 Pneumonia, unspecified organism (principal); J96.21 Acute and chronic respiratory failure with hypoxia; I13.0 Hypertensive heart and chronic kidney disease with heart failure and stage 1 through stage 4 chronic kidney disease, or unspecified chronic kidney disease; I50.30 Unspecified diastolic (congestive) heart failure; J44.0 Chronic obstructive pulmonary disease with (acute) lower respiratory infection; D84.9 Immunodeficiency, unspecified; N18.9 Chronic kidney disease, unspecified; R13.10 Dysphagia, unspecified; C32.9 Malignant neoplasm of larynx, unspecified; G24.01 Drug induced subacute dyskinesia; T45.1X5A Adverse effect of antineoplastic and immunosuppressive drugs, initial encounter; J98.4 Other disorders of lung; R79.89 Other specified abnormal findings of blood chemistry; F17.200 Nicotine dependence, unspecified, uncomplicated; Z99.81 Dependence on supplemental oxygen; Z95.5 Presence of coronary angioplasty implant and graft; I25.2 Old myocardial infarction; Z79.60 Long term (current) use of unspecified immunomodulators and immunosuppressants; Z93.0 Tracheostomy status; Z93.1 Gastrostomy status; Z79.82 Long term (current) use of aspirin; Z79.02 Long term (current) use of antithrombotics/antiplatelets
CPT/HCPCS: 36415; 36600; 71045; 71275; 80048; 80051; 80053; 80202; 80306; 82330; 82805; 83605; 83735; 83880; 84100; 84145; 84439; 84443; 84481; 84484; 85025; 85378; 85730; 86140; 87040; 87086; 87637; 93005; 93308; 93970; 94640; 94664; 94799; 96372; 96374; 99285; J0692; J1644; J1650; J2270; J2919; J3370; J3372; J7030; J7050

== ENCOUNTER 2024-10-19 09:47 | Emergency (ER) | payer MEDICAID, SELFPAY ==
--- NOTE | 2024-10-19 09:53 | XR_ITS ---
WS: [id number] Portable AP upright chest, 10/19/2024 Clinical Data: dyspnea/cough Comparison: Portable chest, 10/14/2024 Findings: The pulmonary vascularity is normal. No nodules, masses or effusions are seen. The aortic arch and descending thoracic aorta show tortuosity. The tracheal tube remains above the [place]. There are old right rib fractures. XR/XR chest 1V portable [id number] Impression: 1. Clearing of mild pulmonary vascular congestion. 2. Atherosclerosis.
--- NOTE | 2024-10-19 09:55 | ECG_ITS ---
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 Measurements Intervals [place] Rate: 64 P: 63 ID: [id number] QRS: 45 QRSD: 85 T: 83 QT: 464 QTc: 479 Interpretive Statements SINUS RHYTHM PROLONGED QT INTERVAL Compared to ECG 10/14/2024 10:15:34 Prolonged QT interval now present Left ventricular hypertrophy no longer present ST (T wave) deviation no longer present Electronically Signed On 10-21-2024 07:54:02 [employer] by Jarrell Steiner M.D. [email or web address] [id number]
[2024-10-19 09:56] VITALS: BP 129/59; PULSE 66; RESP 17; TEMP 36.9; O2SAT 100; BMI 28.3
--- NOTE | 2024-10-19 10:01 | W.ED.SOB ---
HPI - SOB/Dyspnea General: Chief Complaint: Shortness of Breath/Dyspnea Stated Complaint: SOB Time Seen by Provider: 10/19/24 09:53 Source: patient and EMS Mode of arrival: EMS Limitations: no limitations History of Present Illness: HPI Narrative: 49-year-old female has multiple medical issues she has a history of her cancer is currently on radiation she has a trach she has COPD along with chronic kidney disease and CHF. She had recently been admitted to the hospital was discharged 2 days ago for pneumonia she had went to clinic follow-up and had some shortness of breath and they called ambulance. Patient received breathing treatment route she is on her baseline oxygen here 98% she denies any increased cough or fever denies any pain Associated symptoms: Deny abdominal pain, chest pain, fever(s), nausea or vomiting Related Data Home Medications ?Medication ?Instructions ?Recorded ?Confirmed budesonide 0.5 mg/2 mL suspension 0.5 mg inhalation BID PRN 05/08/24 10/14/24 for nebulization Shortness Of Breath albuterol sulfate 90 mcg/actuation 2 inh inhalation Q4H PRN shortness 08/22/24 10/14/24 aerosol inhaler of breath or wheezing clopidogrel 75 mg tablet (Plavix) 75 mg PO DAILY 08/22/24 10/14/24 hydroxyzine HCl 10 mg tablet 10 mg PO TID PRN Anxiety 08/22/24 10/14/24 ipratropium 0.5 mg-albuterol 3 mg 3 ml inhalation QID PRN Shortness 08/22/24 10/14/24 (2.5 mg base)/3 mL nebulization Of Breath Or Wheezing soln paroxetine HCl 40 mg tablet See Rx Instructions .Route .COMPLEX 08/22/24 10/14/24 alprazolam 0.5 mg tablet 0.5 mg PO DAILY PRN anxiety 10/14/24 10/14/24 hydralazine 50 mg tablet 50 mg PO TID 10/14/24 10/14/24 Held on 10/17/24. Instructions: Resume on 10/31/24. hold until you see primary care hydrocodone 5 mg-acetaminophen 325 1 tab PO Q6H PRN Pain 10/14/24 10/14/24 mg tablet olanzapine 5 mg tablet 5 mg PO QPM 10/14/24 10/14/24 ondansetron 8 mg disintegrating 8 mg PO Q8H PRN Nausea And Vomiting 10/14/24 10/14/24 tablet tramadol 50 mg tablet 50 mg PO TID 10/14/24 10/14/24 Previous Rx's ?Medication ?Instructions ?Recorded aspirin 81 mg tablet,delayed 81 mg PO DAILY #30 tabs 01/15/24 release atorvastatin 40 mg tablet 40 mg PO BEDTIME #90 tabs 02/15/24 metoprolol tartrate 25 mg tablet 25 mg PO BID@0900,2100 #180 tabs 02/15/24 albuterol sulfate 2.5 mg/3 mL 2.5 mg (3 mL) inhalation Q4H PRN 04/12/24 (0.083 %) solution for nebulization shortness of breath or wheezing #90 mL guaifenesin 600 mg tablet, 1,200 mg (2 x 600 mg) PO 08/25/24 extended release 12 hr (Mucinex) BID@0900,2100 #30 tabs levofloxacin 750 mg tablet 750 mg PO DAILY 7 days #7 tabs 10/17/24 Allergies Allergy/AdvReac Type Severity Reaction Status Date / Time hydromorphone (From Dilaudid) Allergy ADR-Migrain Verified 03/10/24 17:29 e Review of Systems Const: Denies: fever(s), chills, body aches or change in appetite ENMT: Denies: throat pain or dental pain Card: Denies: chest pain Resp: Reports: dyspnea GI: Denies: abdominal pain, nausea, vomiting or diarrhea Musc: Denies: neck pain or back pain Skin/Breast: Denies: rash Neuro: Denies: headache(s) PFS ED PFSH: Medical History COPD (chronic obstructive pulmonary disease) CKD (chronic kidney disease) Diastolic heart failure Hypertension Coronary artery disease Coronary angiogram from 01/13 showed moderate disease in LCx and LAD?negative on IFR Abnormal stress test Cannabis use disorder, mild, abuse Amphetamine use disorder, severe, dependence Bipolar disorder in full remission Bipolar disorder Social History Smoking and tobacco/nicotine status: current every day tobacco/nicotine user cigarettes Packs smoked per day: 1.5 Years cigarettes smoked: 30 Quit status (tobacco/nicotine): not considering quitting Second hand smoke exposure: Yes Current gender identity: Female Physical Exam Const: COMMON NORMALS: no acute distress, patient oriented x3 and healthy appearing HENMT: COMMON NORMALS: normocephalic and atraumatic HEAD & SCALP: normocephalic and atraumatic Eye: COMMON NORMALS: Equal, round and reactive pupils present and EOMs intact bilaterally PUPIL: Yes Equal, round and reactive pupils present Neck/C-Spine: COMMON NORMALS: full ROM and supple Chest: COMMONS NORMALS: normal inspection of the chest and normal palpation of entire chest wall Resp: COMMON NORMALS: normal respiratory effort, No retractions, No use of accessory muscles and clear to auscultation bilaterally AUSCULTATION: clear to auscultation bilaterally Cardio: COMMON NORMALS: regular rate, regular rhythm and No murmurs present (Cardio) RATE: regular rate RHYTHM: regular rhythm GI: COMMON NORMALS: Normal to inspection, nondistended, normoactive bowel sounds present, Soft to palpation, non-tender and no masses PALPATION: Yes Soft to palpation Extremity: COMMON NORMALS: normal to inspection and full ROM Neuro: COMMON NORMALS: patient oriented x3, moves all extremities and no focal motor deficits Psych: COMMON NORMALS: mental status grossly normal, Normal thought process present and cooperative THOUGHT PROCESS: Normal thought process present Skin: COMMON NORMALS: no rashes or lesions noted and no wounds GENERAL SKIN EXAM: no rashes or lesions noted Course Vital Signs: Vital signs: Vital Signs Temperature 98.4 F 10/19/24 09:56 Pulse Rate 71 10/19/24 12:21 Respiratory Rate 17 10/19/24 09:56 Blood Pressure 118/75 10/19/24 12:21 Pulse Oximetry 98 10/19/24 12:21 Oxygen Delivery Me thod Nasal Cannula 10/19/24 09:56 Oxygen Flow Rate 2 10/19/24 09:56 MDM - SOB/Dyspnea Medical Decision Making Patient presents here with shortness of breath she is well-appearing here she has no signs of pneumonia she has been in no distress here she stable for discharge follow-up with PCP return if worsening. Medical Records I reviewed the patient's medical records. Lab Data I reviewed the patient's lab results. 10/19/24 10:26 10/19/24 10:26 Labs/Radiology: Radiology Impressions Chest X-Ray 10/19/24 09:53 Impression: 1. Clearing of mild pulmonary vascular congestion. 2. Atherosclerosis. Laboratory Results WBC 5.44 10^3/uL (3.29-11.43) 10/19/24 10: RBC 3.77 10^6/uL (3.85-5.65) L 10/19/24 10:26 Hgb 11.20 g/dL (11.27-16.99) L 10/19/24 10:26 Hct 35.9 % (36-47) L 10/19/24 10:26 MCV 95.2 fl (85-98) 10/19/24 10:26 MCH 29.7 pg (27-33) 10/19/24 10: MCHC 31.2 g/dL (30-55) 10/19/24 10: RDW 14.9 % (12.1-15.1) 10/19/24 10:26 Plt Count 212 10^3/cmm (157-399) 10/19/24 10:26 MPV 9.8 fL (7.4-10.4) 10/19/24 10:26 Neut % (Auto) 77.1 % 10/19/24 10:26 Lymph % (Auto) 15.3 % 10/19/24 10:26 Banks % (Auto) 6.6 % 10/19/24 10:26 Eos % (Auto) 0.4 % 10/19/24 10:26 Baso % (Auto) 0.2 % 10/19/24 10:26 Neut # (Auto) 4.20 10^3/uL (1.8-7.7) 10/19/24 10:26 Lymph # (Auto) 0.8 10^3/uL (0.8-4.8) 10/19/24 10:26 Banks # (Auto) 0.4 10^3/uL (0.2-0.9) 10/19/24 10:26 Eos # (Auto) 0.0 10^3/uL (0.0-0.8) 10/19/24 10:26 Baso # (Auto) 0.0 10^3/uL (0.0-0.1) 10/19/24 10:26 Nucleated RBC % (auto) 0 % 10/19/24 10:26 Nucleated RBCs # 0.0 /100WBC 10/19/24 10:26 Sodium 138 mmol/L (136-145) 10/19/24 10:26 Potassium 4.3 mmol/L (3.5-5.1) 10/19/24 10:26 Chloride 102 mmol/L (98-107) 10/19/24 10:26 Carbon Dioxide 25 mmol/L (22-29) 10/19/24 10:26 Anion Gap 15.3 (5-19) 10/19/24 10:26 BUN 22 mg/dL (6-20) H 10/19/24 10:26 Creatinine 1.2 mg/dL (0.5-0.9) H 10/19/24 10:26 GFR Calculation 47.4 mL/min (90-130) L 10/19/24 10:26 Glucose 108 mg/dL (65-115) 10/19/24 10:26 Calculated Osmolality 290 mOsm/kg (285-295) 10/19/24 10:26 Calcium 9.4 mg/dL (8.5-10.5) 10/19/24 10:26 Magnesium 1.8 mg/dL (1.7-2.3) 10/19/24 10:26 Total Bilirubin 0.5 mg/dL (0.15-1.2) 10/19/24 10:26 AST 22 U/L (0-32) 10/19/24 10:26 ALT 21 U/L (0-33) 10/19/24 10:26 Alkaline Phosphatase 57 U/L (35-105) 10/19/24 10:26 NT-Pro-B Natriuret Pep 1724 pg/mL (0-125) H 10/19/24 10:26 Total Protein 6.7 g/dL (6.6-8.7) 10/19/24 10:26 Albumin 3.2 g/dL (3.5-5.2) L 10/19/24 10:26 Globulin 3.5 g/dL (1.3-4.6) 10/19/24 10:26 All radiology interpretation(s) finalized by discharge EKG Data EKG 1: I personally reviewed and interpreted this EKG as follows: EKG Interpretation Date: 10/19/24 EKG interpretation time: 09:55 Interpretation: nsr hr [address] elevation qrs 85 qtc 473 Discharge Plan Discharge Patient Disposition: Home Clinical Impression: Shortness of breath Condition: Stable Prescriptions: No Action atorvastatin 40 mg tablet 40 mg PO BEDTIME Qty: 90 1RF metoprolol tartrate 25 mg tablet 25 mg PO BID@0900,2100 Qty: 180 1RF hydrocodone-acetaminophen 5-325 mg tablet 1 tab PO Q6H PRN (Reason: Pain) olanzapine 5 mg Tablet 5 mg PO QPM tramadol 50 mg Tablet 50 mg PO TID ondansetron 8 mg Tablet,Disintegrating 8 mg PO Q8H PRN (Reason: Nausea And Vomiting) Rx Instructions: start before Chemo alprazolam 0.5 mg Tablet 0.5 mg PO DAILY PRN (Reason: anxiety) hydralazine 50 mg Tablet 50 mg PO TID levofloxacin 750 mg tablet 750 mg PO DAILY 7 Days Qty: 7 0RF aspirin 81 mg Tablet,Delayed Release (Dr/Ec) 81 mg PO DAILY Qty: 30 0RF albuterol sulfate 2.5 mg /3 mL (0.083 %) solution for nebulization 2.5 mg INHALATION Q4H PRN (Reason: shortness of breath or wheezing) Qty: 90 0RF budesonide 0.5 mg/2 mL suspension for nebulization 0.5 mg inhalation BID PRN (Reason: Shortness Of Breath) ipratropium-albuterol 0.5 mg-3 mg(2.5 mg base)/3 mL Solution For Nebulization 3 ml INHALATION QID PRN (Reason: Shortness Of Breath Or Wheezing) clopidogrel [Plavix] 75 mg Tablet 75 mg PO DAILY Rx Instructions: crush 1 tablet and put in gi tube daily paroxetine HCl 40 mg Tablet See Rx Instructions .ROUTE .COMPLEX Rx Instructions: 40 mg orally ;place 1 tab in tube daily hydroxyzine HCl 10 mg Tablet 10 mg PO TID PRN (Reason: Anxiety) albuterol sulfate 90 mcg/actuation HFA aerosol inhaler 2 inh inhalation Q4H PRN (Reason: shortness of breath or wheezing) guaifenesin [Mucinex] 600 mg Tablet Extended Release 12hr 1,200 mg PO BID@0900,2100 Qty: 30 0RF Discharge Orders: Discharge ED (Routine); Ordered 10/19/24 Ordered By: Antonio Weathers Referrals: Edilma Stringer [Primary Care Provider] - Discharge Diet: Advance as tolerated Discharge Activity: Resume usual activity Patient Instructions: Shortness of Breath (ED) Print Language: Colombian Coding Level of Care Code ED Social Sciences Department Chair for Shara Zaldivar
[2024-10-19] MEDS: dexamethasone 10 mg/mL INJ IVP (10:13)
[2024-10-19 10:38] LABS: Basophils % 0.2 %; Eosinophils % 0.4 %; Hematocrit 35.9 % (36-47); Lymphocytes # 0.8 10^3/uL (0.8-4.8); Lymphocytes % 15.3 %; Mean Corpuscular HGB Conc 31.2 g/dL (30-55); Mean Corpuscular Hemoglobin 29.7 pg (27-33); Mean Corpuscular Volume 95.2 fl (85-98); Mean Platelet Volume 9.8 fL (7.4-10.4); Monocytes # 0.4 10^3/uL (0.2-0.9); Monocytes % 6.6 %; Neutrophils % 77.1 %; Nucleated Red Blood Cells % 0 %; Platelet Count 212 10^3/cmm (157-399); Red Blood Count 3.77 10^6/uL (3.85-5.65); Red Cell Distribution Width 14.9 % (12.1-15.1); White Blood Count 5.44 10^3/uL (3.29-11.43)
[2024-10-19 10:53] VITALS: BP 122/73; PULSE 69; O2SAT 100
[2024-10-19 11:04] LABS: Alanine Aminotransferase 21 U/L (0-33); Albumin Level 3.2 g/dL (3.5-5.2); Alkaline Phosphatase 57 U/L (35-105); Anion Gap 15.3 (5-19); Aspartate Amino Transferase 22 U/L (0-32); Blood Urea Nitrogen 22 mg/dL (6-20); Calcium 9.4 mg/dL (8.5-10.5); Carbon Dioxide 25 mmol/L (22-29); Chloride 102 mmol/L (98-107); Creatinine Clr Calc Pharmacy 56.9515; Globulin 3.5 g/dL (1.3-4.6); Glomerular Filtration Rate 47.4 mL/min (90-130); Glucose 108 mg/dL (65-115); Magnesium 1.8 mg/dL (1.7-2.3); NT Pro B Type Natriuretic Pept 1724 pg/mL (0-125); Osmolality Calculated 290 mOsm/kg (285-295); Potassium 4.3 mmol/L (3.5-5.1); Sodium 138 mmol/L (136-145); Total Bilirubin 0.5 mg/dL (0.15-1.2); Total Protein 6.7 g/dL (6.6-8.7)
[2024-10-19 12:20] VITALS: BP 118/75; PULSE 71; O2SAT 98
[2024-10-19 12:21] VITALS: BP 118/75; PULSE 71; O2SAT 98
== END 2024-10-19 12:53 | disposition home or self-care (01) ==
PROVIDERS: Family Medicine; Emergency Provider Emergency Medicine; PCP Nurse Practitioner Adult Health
DX: R06.02 Shortness of breath (principal); Z79.82 Long term (current) use of aspirin; Z79.02 Long term (current) use of antithrombotics/antiplatelets; F17.210 Nicotine dependence, cigarettes, uncomplicated; J44.9 Chronic obstructive pulmonary disease, unspecified; I13.0 Hypertensive heart and chronic kidney disease with heart failure and stage 1 through stage 4 chronic kidney disease, or unspecified chronic kidney disease; N18.9 Chronic kidney disease, unspecified; I50.30 Unspecified diastolic (congestive) heart failure; I25.10 Atherosclerotic heart disease of native coronary artery without angina pectoris
CPT/HCPCS: 36415; 71045; 80053; 83735; 83880; 85025; 93005; 96374; 99285; J1100

== ENCOUNTER 2024-10-19 14:48 | Emergency (ER) | payer MEDICAID, SELFPAY ==
[2024-10-19 14:49] VITALS: BP 130/45; PULSE 70; RESP 16; TEMP 37.3; O2SAT 99; BMI 28.3
--- NOTE | 2024-10-19 15:00 | W.ED.GENADLT ---
HPI - General Adult General: Chief complaint: General Medical Stated complaint: feeding tube removed Time Seen by Provider: 10/19/24 14:50 Source: patient and EMS Mode of arrival: EMS Limitations: no limitations History of Present Illness: 49-year-old female who states she was getting in her car and her feeding tube was removed. Patient denies any other complaints at this time. They had replaced it at the clinic she was at but the balloon is busted switches falls right back out. Associated symptoms: Deny chest pain, dyspnea, headache(s), nausea, rash or vomiting Related Data Home Medications ?Medication ?Instructions ?Recorded ?Confirmed budesonide 0.5 mg/2 mL suspension 0.5 mg inhalation BID PRN 05/08/24 10/14/24 for nebulization Shortness Of Breath albuterol sulfate 90 mcg/actuation 2 inh inhalation Q4H PRN shortness 08/22/24 10/14/24 aerosol inhaler of breath or wheezing clopidogrel 75 mg tablet (Plavix) 75 mg PO DAILY 08/22/24 10/14/24 hydroxyzine HCl 10 mg tablet 10 mg PO TID PRN Anxiety 08/22/24 10/14/24 ipratropium 0.5 mg-albuterol 3 mg 3 ml inhalation QID PRN Shortness 08/22/24 10/14/24 (2.5 mg base)/3 mL nebulization Of Breath Or Wheezing soln paroxetine HCl 40 mg tablet See Rx Instructions .Route .COMPLEX 08/22/24 10/14/24 alprazolam 0.5 mg tablet 0.5 mg PO DAILY PRN anxiety 10/14/24 10/14/24 hydralazine 50 mg tablet 50 mg PO TID 10/14/24 10/14/24 Held on 10/17/24. Instructions: Resume on 10/31/24. hold until you see primary care hydrocodone 5 mg-acetaminophen 325 1 tab PO Q6H PRN Pain 10/14/24 10/14/24 mg tablet olanzapine 5 mg tablet 5 mg PO QPM 10/14/24 10/14/24 ondansetron 8 mg disintegrating 8 mg PO Q8H PRN Nausea And Vomiting 10/14/24 10/14/24 tablet tramadol 50 mg tablet 50 mg PO TID 10/14/24 10/14/24 Previous Rx's ?Medication ?Instructions ?Recorded aspirin 81 mg tablet,delayed 81 mg PO DAILY #30 tabs 01/15/24 release atorvastatin 40 mg tablet 40 mg PO BEDTIME #90 tabs 02/15/24 metoprolol tartrate 25 mg tablet 25 mg PO BID@0900,2100 #180 tabs 02/15/24 albuterol sulfate 2.5 mg/3 mL 2.5 mg (3 mL) inhalation Q4H PRN 04/12/24 (0.083 %) solution for nebulization shortness of breath or wheezing #90 mL guaifenesin 600 mg tablet, 1,200 mg (2 x 600 mg) PO 08/25/24 extended release 12 hr (Mucinex) BID@0900,2100 #30 tabs levofloxacin 750 mg tablet 750 mg PO DAILY 7 days #7 tabs 10/17/24 Allergies Allergy/AdvReac Type Severity Reaction Status Date / Time hydromorphone (From Dilaudid) Allergy ADR-Migrain Verified 10/19/24 15:01 e Review of Systems Const: Denies: fever(s), chills, body aches or change in appetite ENMT: Denies: throat pain or dental pain Card: Denies: chest pain Resp: Denies: dyspnea GI: Denies: abdominal pain, nausea, vomiting or diarrhea Musc: Denies: neck pain or back pain Skin/Breast: Denies: rash Neuro: Denies: headache(s) PFS ED PFSH: Medical History COPD (chronic obstructive pulmonary disease) CKD (chronic kidney disease) Diastolic heart failure Hypertension Coronary artery disease Coronary angiogram from 01/13 showed moderate disease in LCx and LAD?negative on IFR Abnormal stress test Cannabis use disorder, mild, abuse Amphetamine use disorder, severe, dependence Bipolar disorder in full remission Bipolar disorder Social History Smoking and tobacco/nicotine status: current every day tobacco/nicotine user cigarettes Packs smoked per day: 1.5 Years cigarettes smoked: 30 Quit status (tobacco/nicotine): not considering quitting Second hand smoke exposure: Yes Current gender identity: Female Physical Exam Const: COMMON NORMALS: no acute distress, patient oriented x3 and healthy appearing HENMT: COMMON NORMALS: normocephalic and atraumatic HEAD & SCALP: normocephalic and atraumatic Eye: COMMON NORMALS: conjunctivae normal CONJUNCTIVA: Yes conjunctivae normal Neck/C-Spine: COMMON NORMALS: full ROM Chest: COMMONS NORMALS: normal inspection of the chest Resp: COMMON NORMALS: normal respiratory effort Cardio: COMMON NORMALS: regular rate RATE: regular rate GI: OTHER: Feeding tube is dislodged tract is patent Extremity: COMMON NORMALS: normal to inspection and full ROM Neuro: COMMON NORMALS: patient oriented x3, moves all extremities and no focal motor deficits Psych: COMMON NORMALS: mental status grossly normal, Normal thought process present and cooperative THOUGHT PROCESS: Normal thought process present Skin: COMMON NORMALS: no rashes or lesions noted and no wounds GENERAL SKIN EXAM: no rashes or lesions noted Procedures Feeding Tube Replacement Type of Tube: gastrostomy Insertion Site Prior to Procedure: clean Tube Used for Reinsertion: Bard Polish Tube Size (F): 18 Balloon size (mL): 10 Verification of Placement: KUB and gastrografin injection Tube Secured by: tape/dressing Patient Tolerated Procedure: well Course Vital Signs: Vital signs: Vital Signs Temperature 99.2 F 10/19/24 14:49 Pulse Rate 70 10/19/24 14:49 Respiratory Rate 20 H 10/19/24 15:45 Blood Pressure 130/45 10/19/24 14:49 Pulse Oximetry 99 10/19/24 14:49 Oxygen Delivery Me thod Nasal Cannula 10/19/24 14:49 Oxygen Flow Rate 3 10/19/24 14:49 MDM - General Adult Medical Decision Making Patient presents here with PEG tube and being pulled out I did replace it with a new PEG tube x-ray shows good placement she is stable for discharge All radiology interpretation(s) finalized by discharge ED provider radiology interpretation(s): PEG tube in good place Discharge Plan Discharge Patient Disposition: Home Clinical Impression: PEG tube malfunction Condition: Stable Prescriptions: No Action atorvastatin 40 mg tablet 40 mg PO BEDTIME Qty: 90 1RF metoprolol tartrate 25 mg tablet 25 mg PO BID@0900,2100 Qty: 180 1RF hydrocodone-acetaminophen 5-325 mg tablet 1 tab PO Q6H PRN (Reason: Pain) olanzapine 5 mg Tablet 5 mg PO QPM tramadol 50 mg Tablet 50 mg PO TID ondansetron 8 mg Tablet,Disintegrating 8 mg PO Q8H PRN (Reason: Nausea And Vomiting) Rx Instructions: start before Chemo alprazolam 0.5 mg Tablet 0.5 mg PO DAILY PRN (Reason: anxiety) hydralazine 50 mg Tablet 50 mg PO TID levofloxacin 750 mg tablet 750 mg PO DAILY 7 Days Qty: 7 0RF aspirin 81 mg Tablet,Delayed Release (Dr/Ec) 81 mg PO DAILY Qty: 30 0RF albuterol sulfate 2.5 mg /3 mL (0.083 %) solution for nebulization 2.5 mg INHALATION Q4H PRN (Reason: shortness of breath or wheezing) Qty: 90 0RF budesonide 0.5 mg/2 mL suspension for nebulization 0.5 mg inhalation BID PRN (Reason: Shortness Of Breath) ipratropium-albuterol 0.5 mg-3 mg(2.5 mg base)/3 mL Solution For Nebulization 3 ml INHALATION QID PRN (Reason: Shortness Of Breath Or Wheezing) clopidogrel [Plavix] 75 mg Tablet 75 mg PO DAILY Rx Instructions: crush 1 tablet and put in gi tube daily paroxetine HCl 40 mg Tablet See Rx Instructions .ROUTE .COMPLEX Rx Instructions: 40 mg orally ;place 1 tab in tube daily hydroxyzine HCl 10 mg Tablet 10 mg PO TID PRN (Reason: Anxiety) albuterol sulfate 90 mcg/actuation HFA aerosol inhaler 2 inh inhalation Q4H PRN (Reason: shortness of breath or wheezing) guaifenesin [Mucinex] 600 mg Tablet Extended Release 12hr 1,200 mg PO BID@0900,2100 Qty: 30 0RF Discharge Orders: Discharge ED (Routine); Ordered 10/19/24 Ordered By: Antonio Weathers Referrals: Edilma Stringer [Primary Care Provider] - Discharge Diet: Advance as tolerated Discharge Activity: Resume usual activity Patient Instructions: PEG (Percutaneous Endoscopic Gastrostomy) Tube Insertion (DC) Print Language: Irish Coding Level of Care Code ED Lacing String Cutter for Shara Zaldivar
--- NOTE | 2024-10-19 15:32 | XRR_ITS ---
PROCEDURE INFORMATION: Exam: XR Abdomen Exam date and time: 10/19/2024 3:56 PM Age: 49 years old Clinical indication: Device placement; Gi device; Peg tube; Prior surgery; Surgery date: 6+ months; Additional info: Gastrogaffin TECHNIQUE: Imaging protocol: Radiologic exam of the abdomen. Views: Frontal supine view of the abdomen. 1 View. COMPARISON: CR XR chest 1V portable [id number] 10/19/2024 10:04 AM FINDINGS: Tubes, catheters and devices: Percutaneous gastrostomy tube overlies the right hemiabdomen. Dilute enteric contrast is injected through the tube and appears to enter the gastric lumen with extension into the duodenum. Gastrointestinal tract: No evidence of bowel obstruction. Bones/joints: Unremarkable. XR/XR KUB [id number] IMPRESSION: Percutaneous gastrostomy tube as above.
[2024-10-19 15:45] VITALS: RESP 20
[2024-10-19] MEDS: morphine 4 mg/mL SDV 1 mL IM (15:45)
[2024-10-19 16:00] VITALS: BP 136/55; PULSE 71; O2SAT 95
[2024-10-19 16:30] VITALS: BP 146/86; PULSE 66; O2SAT 97
[2024-10-19 17:58] VITALS: BP 139/70; PULSE 72; O2SAT 98
== END 2024-10-19 17:45 | disposition home or self-care (01) ==
PROVIDERS: Emergency Provider Emergency Medicine; PCP Nurse Practitioner Adult Health
DX: K94.23 Gastrostomy malfunction (principal); F17.210 Nicotine dependence, cigarettes, uncomplicated; J44.9 Chronic obstructive pulmonary disease, unspecified; I25.10 Atherosclerotic heart disease of native coronary artery without angina pectoris; I13.0 Hypertensive heart and chronic kidney disease with heart failure and stage 1 through stage 4 chronic kidney disease, or unspecified chronic kidney disease; N18.9 Chronic kidney disease, unspecified; I50.30 Unspecified diastolic (congestive) heart failure
CPT/HCPCS: 43762; 74018; 96372; 99284; J2270

== ENCOUNTER 2025-01-03 10:47 | Emergency (ER) | payer MEDICAID, SELFPAY ==
[2025-01-03 10:50] VITALS: BP 142/77; PULSE 61; RESP 18; TEMP 36.8; O2SAT 96; BMI 28.3
--- NOTE | 2025-01-03 11:01 | W.ED.GENADLT ---
HPI - General Adult General: Chief complaint: General Medical Stated complaint: Trach issue Time Seen by Provider: 01/03/25 10:48 Source: patient and EMS Mode of arrival: EMS Limitations: no limitations History of Present Illness: 49-year-old female with a history of laryngeal cancer she has a trach she is at the clinic to have her trach suction states it has been plugged up she had wanted it replaced clinic called EMS because they were unable to remove the obstruction she denies any fevers no bleeding Associated symptoms: Deny chest pain, dyspnea, headache(s), nausea, rash or vomiting Related Data Home Medications ?Medication ?Instructions ?Recorded ?Confirmed budesonide 0.5 mg/2 mL suspension 0.5 mg inhalation BID PRN 05/08/24 10/14/24 for nebulization Shortness Of Breath albuterol sulfate 90 mcg/actuation 2 inh inhalation Q4H PRN shortness 08/22/24 10/14/24 aerosol inhaler of breath or wheezing clopidogrel 75 mg tablet (Plavix) 75 mg PO DAILY 08/22/24 10/14/24 hydroxyzine HCl 10 mg tablet 10 mg PO TID PRN Anxiety 08/22/24 10/14/24 ipratropium 0.5 mg-albuterol 3 mg 3 ml inhalation QID PRN Shortness 08/22/24 10/14/24 (2.5 mg base)/3 mL nebulization Of Breath Or Wheezing soln paroxetine HCl 40 mg tablet See Rx Instructions .Route .COMPLEX 08/22/24 10/14/24 alprazolam 0.5 mg tablet 0.5 mg PO DAILY PRN anxiety 10/14/24 10/14/24 hydralazine 50 mg tablet 50 mg PO TID 10/14/24 10/14/24 Held on 10/17/24. Instructions: Resume on 10/31/24. hold until you see primary care hydrocodone 5 mg-acetaminophen 325 1 tab PO Q6H PRN Pain 10/14/24 10/14/24 mg tablet olanzapine 5 mg tablet 5 mg PO QPM 10/14/24 10/14/24 ondansetron 8 mg disintegrating 8 mg PO Q8H PRN Nausea And Vomiting 10/14/24 10/14/24 tablet tramadol 50 mg tablet 50 mg PO TID 10/14/24 10/14/24 Previous Rx's ?Medication ?Instructions ?Recorded aspirin 81 mg tablet,delayed 81 mg PO DAILY #30 tabs 01/15/24 release atorvastatin 40 mg tablet 40 mg PO BEDTIME #90 tabs 02/15/24 metoprolol tartrate 25 mg tablet 25 mg PO BID@0900,2100 #180 tabs 02/15/24 albuterol sulfate 2.5 mg/3 mL 2.5 mg (3 mL) inhalation Q4H PRN 04/12/24 (0.083 %) solution for nebulization shortness of breath or wheezing #90 mL guaifenesin 600 mg tablet, 1,200 mg (2 x 600 mg) PO 08/25/24 extended release 12 hr (Mucinex) BID@0900,2100 #30 tabs Allergies Allergy/AdvReac Type Severity Reaction Status Date / Time hydromorphone (From Dilaudid) Allergy ADR-Migrain Verified 10/19/24 15:01 e Review of Systems Const: Denies: fever(s), chills, body aches or change in appetite ENMT: Denies: throat pain or dental pain Card: Denies: chest pain Resp: Denies: dyspnea GI: Denies: abdominal pain, nausea, vomiting or diarrhea Musc: Denies: neck pain or back pain Skin/Breast: Denies: rash Neuro: Denies: headache(s) PFS ED PFSH: Medical History COPD (chronic obstructive pulmonary disease) CKD (chronic kidney disease) Diastolic heart failure Hypertension Coronary artery disease Coronary angiogram from 01/13 showed moderate disease in LCx and LAD?negative on IFR Abnormal stress test Cannabis use disorder, mild, abuse Amphetamine use disorder, severe, dependence Bipolar disorder in full remission Bipolar disorder Social History Smoking and tobacco/nicotine status: current every day tobacco/nicotine user cigarettes Packs smoked per day: 1.5 Years cigarettes smoked: 30 Quit status (tobacco/nicotine): not considering quitting Second hand smoke exposure: Yes Current gender identity: Female Physical Exam Const: COMMON NORMALS: no acute distress, patient oriented x3 and healthy appearing HENMT: COMMON NORMALS: normocephalic and atraumatic HEAD & SCALP: normocephalic and atraumatic Neck/C-Spine: COMMON NORMALS: full ROM and supple OTHER: trach in place Chest: COMMONS NORMALS: normal inspection of the chest and normal palpation of entire chest wall Resp: COMMON NORMALS: normal respiratory effort, No retractions, No use of accessory muscles and clear to auscultation bilaterally AUSCULTATION: clear to auscultation bilaterally Cardio: COMMON NORMALS: regular rate RATE: regular rate Extremity: COMMON NORMALS: normal to inspection and full ROM Neuro: COMMON NORMALS: patient oriented x3, moves all extremities and no focal motor deficits Psych: COMMON NORMALS: mental status grossly normal, Normal thought process present and cooperative THOUGHT PROCESS: Normal thought process present Skin: COMMON NORMALS: no rashes or lesions noted and no wounds GENERAL SKIN EXAM: no rashes or lesions noted Course Vital Signs: Vital signs: Vital Signs Temperature 98.2 F 01/03/25 10:50 Pulse Rate 61 01/03/25 10:50 Respiratory Rate 18 01/03/25 10:50 Blood Pressure 142/77 01/03/25 10:50 Pulse Oximetry 96 01/03/25 10:50 Oxygen Delivery Me thod Non-Rebreather 01/03/25 10:50 Oxygen Flow Rate 1 01/03/25 10:50 MDM - General Adult Medical Decision Making Patient presents here with clogging of her tracheostomy was able to replace her trach she is well-appearing here stable for discharge Medical Records I reviewed the patient's medical records. No radiology studies performed this visit Discharge Plan Discharge Patient Disposition: Home Clinical Impression: Tracheostomy complication, unspecified Condition: Stable Prescriptions: No Action atorvastatin 40 mg tablet 40 mg PO BEDTIME Qty: 90 1RF metoprolol tartrate 25 mg tablet 25 mg PO BID@0900,2100 Qty: 180 1RF hydrocodone-acetaminophen 5-325 mg tablet 1 tab PO Q6H PRN (Reason: Pain) olanzapine 5 mg Tablet 5 mg PO QPM tramadol 50 mg Tablet 50 mg PO TID ondansetron 8 mg Tablet,Disintegrating 8 mg PO Q8H PRN (Reason: Nausea And Vomiting) Rx Instructions: start before Chemo alprazolam 0.5 mg Tablet 0.5 mg PO DAILY PRN (Reason: anxiety) hydralazine 50 mg Tablet 50 mg PO TID aspirin 81 mg Tablet,Delayed Release (Dr/Ec) 81 mg PO DAILY Qty: 30 0RF albuterol sulfate 2.5 mg /3 mL (0.083 %) solution for nebulization 2.5 mg INHALATION Q4H PRN (Reason: shortness of breath or wheezing) Qty: 90 0RF budesonide 0.5 mg/2 mL suspension for nebulization 0.5 mg inhalation BID PRN (Reason: Shortness Of Breath) ipratropium-albuterol 0.5 mg-3 mg(2.5 mg base)/3 mL Solution For Nebulization 3 ml INHALATION QID PRN (Reason: Shortness Of Breath Or Wheezing) clopidogrel [Plavix] 75 mg Tablet 75 mg PO DAILY Rx Instructions: crush 1 tablet and put in gi tube daily paroxetine HCl 40 mg Tablet See Rx Instructions .ROUTE .COMPLEX Rx Instructions: 40 mg orally ;place 1 tab in tube daily hydroxyzine HCl 10 mg Tablet 10 mg PO TID PRN (Reason: Anxiety) albuterol sulfate 90 mcg/actuation HFA aerosol inhaler 2 inh inhalation Q4H PRN (Reason: shortness of breath or wheezing) guaifenesin [Mucinex] 600 mg Tablet Extended Release 12hr 1,200 mg PO BID@0900,2100 Qty: 30 0RF Discharge Orders: Discharge ED (Routine); Ordered 01/03/25 Ordered By: Antonio Weathers Referrals: Edilma Stringer [Primary Care Provider] Discharge Diet: Advance as tolerated Discharge Activity: Resume usual activity Patient Instructions: Tracheostomy Care (ED) Print Language: Uzbek Coding Level of Care Code ED High Density Tal[employer] Coater Operator for Shara Zaldivar
[2025-01-03 11:21] VITALS: PULSE 61; O2SAT 98
[2025-01-03 11:25] VITALS: BP 142/77; PULSE 61; O2SAT 98
== END 2025-01-03 11:27 | disposition home or self-care (01) ==
PROVIDERS: Emergency Provider Emergency Medicine; PCP Nurse Practitioner Adult Health
DX: J95.00 Unspecified tracheostomy complication (principal)
CPT/HCPCS: 94799; 99283

== ENCOUNTER 2025-02-22 08:18 | Emergency (ER) | payer MEDICAID, SELFPAY ==
--- OUTSIDE RECORDS SUMMARY | 2023-07-06 04:30 | XMS_ITS | Continuity of Care Document ---
Author Organization [facility] Address [address] [id number][place] [address] Phone Care Team Providers Care Bank Note Designer Name Role Phone Camila Schaeffer DDS Unavailable [...] Diagnoses Date Provider Providers Copied on Encounter [facility], [id number]- [place], [place], [address], [place] tel:[phone] [facility] Encounter for dental exam and cleaning w/o abnormal findings 3 Laury Jensen. [address], [place], [address] , [place]. tel:[phone] Referring Provider: Camila Schaeffer, [address] [place], [address] . tel:[phone] OFFICE/OUTPA TIENT VISIT, [facility], [id number]- [place], [place], [address], tel:[phone] [facility] Hypertension (chief complaint)Hea dache (chief complaint) Hypertensive emergencyRecurren t headache 3 Mike Wolf. [address], [place], [address] , [place]. tel:[phone] Referring Provider: Maryann Mckeon, [address] [place], [address] . tel:[phone] [facility], [id number]- [place], [place], [address], [place] tel:[phone] [facility] Encounter for dental exam and cleaning w/o abnormal findings 3 Laury Jensen. [address], [place], [address] , [place]. tel:[phone] Referring Provider: Camila Schaeffer, [address] [place], [address] . tel:[phone] Family History Family Member Type Diagnosis Age At Onset No Information Payers Payer name Insurance type Covered alliance party ID Jing mccloud(s) D Medicaid [id number] Social History Type Description Quantity Date Captured [...]
[2025-02-22] VITALS (11 sets, daily range): BP systolic 129–170; BP diastolic 78–107; PULSE 93–105; RESP 16–23; TEMP 36.8; O2SAT 92–98; BMI 25.7
--- NOTE | 2025-02-22 08:22 | XR_ITS ---
WS: [id number] XR chest 1V portable [id number] REASON FOR EXAM: dyspnea/cough FINDINGS: Chemotherapy port and right IJ infusion catheter appear properly positioned. Tracheostomy in place unchanged compared to 10/14/2024. The remainder of the chest appears unchanged compared to the previous examination. Moderate tortuosity and ectasia of the aortic arch and descending thoracic aorta. The heart is at the upper limits of normal/mildly enlarged. Coarse chronic reticular interstitial lung opacities and peribronchial cuffing in the lower lung walsh. No acute pulmonary parenchymal or pleural abnormality is identified. Significant degenerative spondylosis in the mid thoracic spine. Old healed right seventh rib fracture. XR/XR chest 1V portable [id number] IMPRESSION: Stable abnormal chest as above. No acute abnormality.
--- NOTE | 2025-02-22 08:22 | ECG_ITS ---
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 Measurements Intervals [place] Rate: 89 P: 61 MO: 155 QRS: -9 QRSD: 85 T: 70 QT: 368 QTc: 448 Interpretive Statements SINUS RHYTHM POSSIBLE LEFT ATRIAL ENLARGEMENT [-0.1mV P-WAVE IN V1/V2] MODERATE ST DEPRESSION [0.05+ mV ST DEPRESSION] No previous ECG available for comparison Electronically Signed On 02-22-2025 09:19:10 CDT by Jarrell Steiner M.D. [email or web address] [id number]
--- OUTSIDE RECORDS SUMMARY | 2025-02-22 08:23 | XMS_ITS | Clinical Summary ---
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 Gender Identity Not on file Sexual Orientation Not on file Last Filed Vital Signs Vital Sign Reading Time Taken Comments Blood Pressure 166/102 02/19/2020 4:10 PM CDT Pulse - - Temperature 36.4 C (97.5 F) 02/19/2020 1:39 PM CDT Respiratory Rate 18 02/19/2020 4:10 PM CDT [...] of 3 - 19+ 3-dose series) 04/23 HPV/Cotest (21-29) 1994 CERVICAL CANCER SCREENING 2003 HPV/Cotest (30-65) 2003 PAP SMEAR 2003 BREAST CANCER SCREENING 2013 COLORECTAL SCREENING 2018 Colorectal Cancer Screening 2018 FIT-DNA Q 3 years 2018 FIT/FOBT Q 1 year 2018 Flex Sig/CT Colonography Q 5 years 2018 ZOSTER VACCINE (1 of 2) 2023 INFLUENZA VACCINE (#1) 2024
--- OUTSIDE RECORDS SUMMARY | 2025-02-22 08:23 | XMS_ITS | Clinical Summary ---
Author Organization [facility] Address [address] [place] [address] Phone Care Team Providers Care Senior Business Process Analyst Name Role Phone Unavailable Primary Care Provider Unavailabl e Allergies Active Allergy Reactions Criticality Noted Date Comments Hydromorphone Dizziness,Headache Low 04/20/2024 Medications bisacodyL (DULCOLAX) 10 mg Suppository Insert 10 mg by rectum 1 time daily as needed. 05/26/20 24 Active budesonide (PULMICORT RESPULE) 0.5 mg/2 mL Suspension for Nebulization Take 0.5 mg by inhalation 2 times daily. 05/26/20 24 Active nitroglycerin (NITROSTAT) 0.4 mg Tablet, Sublingual Place 0.4 mg under tongue every 5 minutes as needed. 05/26/20 24 Active naloxone (NARCAN) 4 mg/spray Boutte, Non-Aerosol EMERGENCY USE ONLY: Administer 1 spray (4 mg) in one nostril one time. May repeat in alternating nostrils every 2-3 min until responsive or EMS arrives. 2 Each 3 5 5:11 PM GANTRY RIGGER 09/28/19 25 Active trach suppliesIndicat ions:Vocal cord paralysis,Laryn geal squamous cell carcinoma (CMS/HCC),Hx of laryngeal cancer Surgery Date: 09/17/2025 Length of Need: 99 months Brand shiley, Size 6 FR Cuffed: no, Fenestrated: no,1 per 3 mo, Inner cannula yes 1 per day, trach care kits 1 per day 1 Each 10/25/19 25 Active lidocaine (lidocaine viscous 2%) 2 % Solution 5 mL by Mouth/Throat route every 6 hours as needed for Pain. 200 mL 3 11/02/19 25 Active ipratropium-alb uteroL (DUONEB) 0.5 mg-3 mg(2.5 mg base)/3 mL Solution for Nebulization Take 3 mL by inhalation every 6 hours as needed for Shortness of Breath. 100 Each 1 5 1:17 PM CDT 11/14/19 25 Active aspirin (RISA CHEWABLE) 81 mg Tablet, Chewable Take 1 Tablet (81 mg) by G Tube route daily. 30 Tablet 5 1:17 PM CDT 11/14/19 25 Active atorvastatin (LIPITOR) 80 mg tablet Take 1 Tablet (80 mg) by G Tube route daily at bedtime. 30 Tablet 5 1:17 PM CDT 11/14/19 25 Active clopidogreL (PLAVIX) 75 mg Tablet Take 1 Tablet (75 mg) by G Tube route daily. 30 Tablet 5 1:17 PM CDT 11/14/19 25 Active PARoxetine HCl (PAXIL) 20 mg tablet Take 1 Tablet (20 mg) by G Tube route daily. 30 Tablet 5 1:17 PM CDT 11/14/19 25 Active pantoprazole (Protonix) 20 mg Tablet, Delayed Release (E.C.) Take 1 Tablet (20 mg) by mouth daily. 30 Tablet 2 5 2:15 PM CDT 11/16/19 25 Active silver sulfADIAZINE (Silvadene) 1 % Cream Apply to affected area daily. 400 Gram 2 5 1:19 PM CDT 11/23/19 25 Active Ventolin HFA 90 mcg/actuation inhaler inhale two puffs by mouth every four hours as needed 12/19/19 25 Active ALPRAZolam (XANAX) 0.5 mg tablet TAKE ONE TABLET BY MOUTH ONE time DAILY NEEDED FOR FOR ANXIETY (FOR prior TO RT FOR clausterphobia ) 12/07/19 25 Active metoprolol tartrate (LOPRESSOR) 25 mg tablet Take 1 Tablet by mouth 2 times daily. 01/26/20 25 Active lidocaine-prilo maranda (EMLA) 2.5-2.5 % CreamIndication s:Tracheostomy status (CMS/HCC) Apply 2.5 grams/0.5 to port site an hour prior to access. Apply occlusive dressing if available. 30 Gram 2 01/31/20 25 Active HYDROcodone-eliezer taminophen (NORCO) 10-325 mg TabletIndicatio ns:Laryngeal squamous cell carcinoma (CMS/HCC) Take 1 Tablet by mouth every 4 hours as needed for Pain, Moderate. Max Daily Amount: 6 Tablets 60 Tablet 02/13/20 25 Active lidocaine-prilo maranda (EMLA) 2.5-2.5 % CreamIndication s:Laryngeal squamous cell carcinoma (CMS/HCC),Encou nter for venous access device care Apply 2.5 grams/0.5 to port site an hour prior to access. Apply occlusive dressing if available. 30 Gram 2 11/08/19 25 2024 Discontinued(R eorder) HYDROcodone-eliezer taminophen (NORCO) 10-325 mg TabletIndicatio ns:Laryngeal squamous cell carcinoma (CMS/HCC) Take 1 Tablet by mouth every 4 hours as needed for Pain, Moderate. Max Daily Amount: 6 Tablets 60 Tablet 01/17/20 25 2024 Discontinued HYDROcodone-eliezer taminophen (NORCO) 10-325 mg TabletIndicatio ns:Laryngeal squamous cell carcinoma (CMS/HCC) Take 1 Tablet by mouth every 4 hours as needed for Pain, Moderate. Max Daily Amount: 6 Tablets 60 Tablet 01/26/20 25 2024 Discontinued HYDROcodone-eliezer taminophen (NORCO) 10-325 mg TabletIndicatio ns:Laryngeal squamous cell carcinoma (CMS/HCC) Take 1 Tablet by mouth every 4 hours as needed for Pain, Moderate. Max Daily Amount: 6 Tablets 60 Tablet 02/03/20 25 2024 Discontinued Active Problems Problem Noted Date Diagnosed Date Chemotherapy induced neutropenia 12/07/2024 Hypotension 09/27/2024 Multifocal pneumonia 09/16/2024 Acute respiratory [...] Encounters Date Type Department Care Team Description 02/12/2025 Orders Only [facility] [address] [facility] [address] [place] [phone] Karla Goldberg MD Laryngeal squamous cell carcinoma ([facility]/HCC) 02/07/2025 External Device Data STL ABSTRACTION Provider, Abstract 02/02/2025 Orders Only [facility] [address] [facility] [address] [place] [address] Karla Goldberg MD Laryngeal squamous cell carcinoma ([facility]/HCC) 01/30/2025 11:00 AM CDT Office Visit [facility] Nose and Thro[facility] Head Ne[facility] [address] [place] [address] Estela Manriquez FNP Hx of laryngeal cancer (Primary Dx); History of radiation therapy; History of chemotherapy; Tracheostomy status (CMS/HCC) 01/26/2025 Telephone [facility] [address] [facility] [place] [address] [place] [address] Jacque Fam, [facility] Information (Transportation Issues) 01/25/2025 Orders Only [facility] [address] [facility] [address] [place] [phone] Grady Michelle MD Laryngeal squamous cell carcinoma ([facility]/HCC) 01/16/2025 Orders Only [facility] S [facility] [address] [place] [phone] Karla Goldberg MD Laryngeal squamous cell carcinoma ([facility]/HCC) 01/04/2025 Orders Only [facility] S [facility] [address] [place] [phone] Karla Goldberg MD Laryngeal squamous cell carcinoma ([facility]/HCC) 01/01/2025 External Device Data STL ABSTRACTION Provider, Abstract 12/31/2024 External Device Data STL ABSTRACTION Provider, Abstract 12/30/2024 External Device Data STL ABSTRACTION Provider, Abstract 12/29/2024 External Device Data STL ABSTRACTION Provider, Abstract 12/28/2024 External Device Data STL ABSTRACTION Provider, Abstract 12/27/2024 External Device Data STL ABSTRACTION Provider, Abstract 12/26/2024 External Device Data STL ABSTRACTION Provider, Abstract 12/26/2024 External Device Data STL ABSTRACTION Provider, Abstract 12/25/2024 Orders Only [facility] [address] [facility] [address] [place] [phone] Karla Goldberg MD Laryngeal squamous cell carcinoma ([facility]/HCC) 12/25/2024 External Device Data STL ABSTRACTION Provider, Abstract 12/24/2024 External Device Data STL ABSTRACTION Provider, Abstract 12/23/2024 External Device Data STL ABSTRACTION Provider, Abstract 12/22/2024 External Device Data STL ABSTRACTION Provider, Abstract 12/21/2024 External Device Data STL ABSTRACTION Provider, Abstract 12/20/2024 External Device Data STL ABSTRACTION Provider, Abstract 12/19/2024 External Device Data STL ABSTRACTION Provider, Abstract 12/18/2024 External Device Data STL ABSTRACTION Provider, Abstract 12/17/2024 External Device Data STL ABSTRACTION Provider, Abstract 12/16/2024 External Device Data STL ABSTRACTION Provider, Abstract 12/15/2024 External Device Data STL ABSTRACTION Provider, Abstract 12/14/2024 11:36 AM CDT - 12/14/2024 11:59 PM CDT Hospital [facility] [address] [place] [address] [place] [address] Karla Goldberg MD Discharge Disposition: Home or Self Care 12/14/2024 11:20 AM CDT [facility] [place] [address] [place] [address] Rashmi Dumont MD Laryngeal squamous cell carcinoma (CMS/HCC) 12/14/2024 9:54 AM CDT - 12/14/2024 11:59 PM CDT Hospital Encounter [facility] Laboratory Services [address] [facility] 2 [place] [address] Rashmi Dumont MD Discharge Disposition: Home or Self Care 12/14/2024 Chart Note [facility] [place] [address] [place] [address] [place] [address] Jacque Fam, [facility] Cancer (Social Work Navigation) 12/14/2024 Chart Note [facility] [address] [place] [address] [place] [address] Dian Lea RN 12/14/2024 External Device Data STL ABSTRACTION Provider, Abstract 12/13/2024 External Device Data STL ABSTRACTION Provider, Abstract 12/12/2024 External Device Data STL ABSTRACTION Provider, Abstract 12/12/2024 External Device Data STL ABSTRACTION Provider, Abstract 12/11/2024 12:41 PM CDT - 12/11/2024 11:59 PM CDT Hospital Encounter [facility] [place] [address] [place] [address] Abigail Santos FNP Discharge Disposition: Home or Self Care 12/11/2024 Orders Only [facility] [address] [place] [address] [address]VE [place] [address] [place] [phone] Karla Goldberg MD Laryngeal squamous cell carcinoma (CMS/HCC) 12/11/2024 External Device Data STL ABSTRACTION Provider, Abstract 12/10/2024 External Device Data STL ABSTRACTION Provider, Abstract 12/09/2024 External Device Data STL ABSTRACTION Provider, Abstract 12/08/2024 12:28 PM CDT - 12/08/2024 11:59 PM CDT Hospital Encounter [facility] [place] [address] [place] [phone] Abigail Santos, GUY Discharge Disposition: Home or Self Care 12/08/2024 Telephone [facility] [address] [place] [address] [place] [phone] Jacque Fam, [facility] (Transportation Issues) 12/08/2024 External Device Data STL ABSTRACTION Provider, Abstract 12/07/2024 1:28 PM CDT - 12/07/2024 11:59 PM CDT Hospital Encounter [facility] [address] [place] [address] [address] [place] [phone] Karla Goldberg MD Discharge Disposition: Home or Self Care 12/07/2024 Orders Only [facility] [place] [address] Abigail Santos, GUY Chemotherapy induced neutropenia (Primary Dx) 12/07/2024 Telephone [facility] [place] [address] [place], [place] [address]e [facility] [place] [address] Karla Saldana, DANICA inf2 for neupogen 12/07/2024 Chart Note [facility] [address] [place] [address] [place] [phone] Dian Lea RN 12/07/2024 External Device Data STL ABSTRACTION Provider, Abstract 12/06/2024 1:03 PM CDT - 12/06/2024 11:59 PM CDT Hospital Encounter [facility] [place] [address] [phone] Karla Goldberg MD Discharge Disposition: Home or Self Care 12/06/2024 11:30 AM CDT [facility] Visit [facility] [address] [place] [phone] Rashmi Dumont MD Grogan, Susan K, GUY Laryngeal squamous cell carcinoma (CMS/HCC) (Primary Dx); PEG (percutaneous endoscopic gastrostomy) status (CMS/HCC); Tracheostomy in place (CMS/HCC); Stage 3a chronic kidney disease (CMS/HCC); Anxiety; Cancer related pain; Chemotherapy-induced neutropenia; S/P radiation therapy < 4 weeks ago; Protein-calorie malnutrition, severe 12/06/2024 10:59 AM CDT - 12/06/2024 11:59 PM CDT Hospital Encounter [facility] Laboratory Services [address] [phone] Rashmi Dumont MD Discharge Disposition: Home or Self Care 12/06/2024 Chart Note [facility] Center [address] [place] [address] [place] [phone] Dian Lea RN 12/06/2024 Refill [facility] [address] [place] [phone] Lisette Shukla MD Laryngeal squamous cell carcinoma (CMS/HCC) 12/06/2024 Orders Only [facility] [address] [place] [phone] Abigail Santos FNP Laryngeal squamous cell carcinoma (CMS/HCC) (Primary Dx) 12/06/2024 External Device Data STL ABSTRACTION Provider, Abstract 12/05/2024 External Device Data STL ABSTRACTION Provider, Abstract 12/04/2024 1:35 PM CDT - 12/04/2024 11:59 PM CDT Hospital Encounter [facility] [address] [place] [address] [facility] [address] [place] [address] Karla Goldberg MD Discharge Disposition: Home or Self Care 12/04/2024 Chart Note [address] [place] [address] Jacque Fam, [employer] Cancer 12/04/2024 Chart Note [facility] [place] [address] [place] [address] Ave [facility] [place] [address] 12/04/2024 External Device Data STL ABSTRACTION Provider, Abstract 12/03/2024 External Device Data STL ABSTRACTION Provider, Abstract 12/02/2024 External Device Data STL ABSTRACTION Provider, Abstract 12/01/2024 External Device Data STL ABSTRACTION Provider, Abstract 11/30/2024 1:28 PM CDT - 11/30/2024 11:59 PM CDT Hospital Encounter [facility] [address] [place] [address] 10 [place] [address] Karla Goldberg MD Discharge Disposition: Home or Self Care 11/30/2024 External Device Data STL ABSTRACTION Provider, Abstract 11/29/2024 1:17 PM CDT - 11/29/2024 11:59 PM CDT Hospital Encounter [facility] [address] [place] [address] AVE [facility] [address] [place] [address] Karla Goldberg MD Discharge Disposition: Home or Self Care 11/29/2024 Chart Note [address] [place] [address] Dian Lea RN 11/29/2024 Orders Only [facility] [place] [address] [place] [address] [facility] [place] [address] Rashmi Dumont MD Laryngeal squamous cell carcinoma (CMS/HCC) (Primary Dx) 11/29/2024 Chart Note [facility] [place] [address] [place] [address] 2 [place] [address] 11/29/2024 External Device Data STL ABSTRACTION Provider, Abstract 11/28/2024 Telephone [facility] [place] [address] [place] [address] [place] [address] Dian Lea, DANICA Nurse Navigation 11/28/2024 External Device Data STL ABSTRACTION Provider, Abstract 11/27/2024 3:43 PM CDT - 11/27/2024 11:59 PM CDT Hospital En[facility] [address] [place] [address] 10 [place] [address] Karla Goldberg MD Discharge Disposition: Home or Self Care 11/27/2024 1:30 PM CDT [facility] Visit [facility] [address] [place] [address] 2 [place] [address] Rashmi Dumont MD LedlFelipa NP Laryngeal squamous cell carcinoma (CMS/HCC) (Primary Dx); PEG (percutaneous endoscopic gastrostomy) status (CMS/HCC); Tracheostomy in place (CMS/HCC); Stage 3a chronic kidney disease ([facility]/HCC); Cancer related pain 11/27/2024 12:37 PM CDT - 11/27/2024 11:59 PM CDT Hospital Encounter [facility] On[facility] Infusion [facility] [address] [place] [address] [address] [place] [address] Rashmi Dumont MD Sprg Oncology, Infusion 11 Discharge Disposition: Home or Self Care 11/27/2024 10:53 AM CDT - 11/27/2024 11:59 PM CDT Hospital Encounter [facility] Laboratory Services [address] [facility] 2 [place] [address] Rashmi Dumont MD Discharge Disposition: Home or Self Care 11/27/2024 Telephone [facility] [place] [address] [place] [address] [place] [address] Rashmi Dumont MD appt 11/27/2024 External Device Data STL ABSTRACTION Provider, Abstract 11/26/2024 External Device Data STL ABSTRACTION Provider, Abstract 11/25/2024 External Device Data STL ABSTRACTION Provider, Abstract 11/24/2024 1:22 PM CDT - 11/24/2024 11:59 PM CDT Hospital Encounter [facility] [address] [facility] [address] [place] [address] [place] [address] Karla Goldberg MD Discharge Disposition: Home or Self Care 11/24/2024 Chart Note [facility] [address] [facility] [place] [address] 11/24/2024 External Device Data STL ABSTRACTION Provider, Abstract 11/23/2024 1:12 PM CDT - 11/23/2024 11:59 PM CDT Hospital Encounter [facility] [address] [address] Karla Goldberg MD Discharge Disposition: Home or Self Care 11/23/2024 External Device Data STL ABSTRACTION Provider, Abstract from Last 3 Months Social History Tobacco [...] hurts you emotionally and/or physically? 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 Gender Identity Not on file Sexual Orientation Not on file Last Filed Vital Signs Vital Sign Reading Time Taken Comments Blood Pressure 126/80 01/30/2025 10:51 AM CDT Pulse 74 12/14/2024 11:52 AM CDT Temperature 36.3 C (97.3 F) 12/14/2024 11:52 AM CDT Respiratory Rate 18 12/14/2024 11:5 2 AM CDT Oxygen Saturation 100% 12/14/2024 11: 52 AM CDT Inhaled Oxygen Concentration - - Weight 71.1 kg (156 lb 12.8 oz) 025 10:51 AM CDT Height 165.1 cm (5' 5 ) 01/30/2025 10:5 1 AM CDT Body Mass Index 26.09 01/30/2025 10:51 AM CDT Plan of Treatment Upcoming Encounters Date Type Department Care Team (Late st Contact Info) Description 03/23/2025 10:00 AM CDT Appointment [facility] Laboratory Services [address] [phone] Rashmi Dumont MD [address] [address] 03/23/2025 11:00 AM CDT [facility] Visit [facility] [place] [address] [address] Rashmi Dumont MD [address] [place] [address] 03/23/2025 2:00 PM CDT Appointment [facility] [address] [place] [phone] Karla Goldberg MD [address] [place] [address] 05/03/2025 1:00 PM CDT Office Visit [facility] Nose and Thro[facility] [address] [place] [address] Estela Manriquez, BELL CLERK [address] [address] [place] [address] Health Maintenance Due Date Last Done Comments DTAP/TDAP/TD VACCINES (1 - Tdap) 1992 HEPATITIS B VACCINES (1 of 3 - 19+ 3-dose series) 04/23 ZOSTER VACCINE (1 of 2) 1992 HPV/Cotest (21-29) 1994 CERVICAL CANCER SCREENING 2003 HPV/Cotest (30-65) 2003 PAP SMEAR 2003 BREAST CANCER SCREENING 2013 COLORECTAL SCREENING 2018 Colorectal Cancer Screening 2018 FIT-DNA Q 3 years 2018 FIT/FOBT Q 1 year 2018 Flex Sig/CT Colonography Q 5 years 2018 INFLUENZA VACCINE (#1) 2025 07/21/2023 Pre-Diabetes and Diabetes Screening 01/08/202701/08 Medical Devices Implanted Type Area Air Hammer Stripper Device Identifier Shelf Expiration Date Model / Serial / Lot Port Pwrprt Clearvue Slim 8fr [id number] - [id number] Implanted:Qty: 1 on 11/02/2024 by Yanira Quesada MD at [facility] Port Right: Chest BARD SKYLER VASC [id number] 10/20/2025 [id number] / / [id number] Procedures Procedure Name Priority Date/Time Associated Diagnosis Comments NM LARYNGOSCOPY FLEXIBLE DIAGNOSTIC Routine 01/30/2025 11:33 AM CDT Hx of laryngeal cancer DIFFERENTIAL, MANUAL Stat 12/14/2024 10:21 AM CDT Laryngeal squamous cell carcinoma (CMS/HCC) COMPREHENSIVE METABOLIC PANEL Stat 12/14/2024 10:21 AM CDT Laryngeal squamous cell carcinoma (CMS/HCC) CBC WITH DIFFERENTIAL Stat 12/14/2024 10:21 AM CDT Laryngeal squamous cell carcinoma (CMS/HCC) COMPREHENSIVE METABOLIC PANEL Stat 12/06/2024 11:09 AM CDT Laryngeal squamous cell carcinoma (CMS/HCC) CBC WITH DIFFERENTIAL Stat 12/06/2024 11:09 AM CDT Laryngeal squamous cell carcinoma (CMS/HCC) MAGNESIUM LEVEL Stat 11/27/2024 11:02 AM CDT Laryngeal squamous cell carcinoma (CMS/HCC) COMPREHENSIVE METABOLIC PANEL Stat 11/27/2024 11:02 AM CDT Laryngeal squamous cell carcinoma (CMS/HCC) CBC WITH DIFFERENTIAL Stat 11/27/2024 11:02 AM CDT Laryngeal squamous cell carcinoma (CMS/HCC) HEMOGLOBIN A1C Stat 01/09/2024 4:16 PM CDT from Last 3 Months or Most Recently Relevant to Health Maintenance Results * NM LARYNGOSCOPY FLEXIBLE DIAGNOSTIC (01/30/2025 11:33 AM CDT) Narrative Estela Manriquez FNP - 01/30/2025 11:33 AM CDT Estela Manriquez FNP 01/30/2025 11:34 AM Procedure 01/30/25: 1) tracheotomy tube change, established tract Anesthesia: None Description of Procedure: The patient was examined in the clinic. The old tracheostomy tube was removed. The stoma was inspected and it was clean without signs of infection. The trachea was suctioned. A new tracheostomy tube was inserted and secured with trach straps. No bleeding occurred. The patient tolerated the procedure well and there was no cyanosis. Findings: A #6 uncuffed Shiley DIC tracheostomy tube was placed. Procedure 01/30/25: Tracheobronchoscopy: Trachea is clean without crusting, lesions, or other anomalies to the level of the florence. Each mainstem bronchus appears patent. Overall, no findings to suggest disease. Tracheobronchoscopy performed before trach change and after trach change to confirm trach was in correct place. us Estela Manriquez BELL CLERK PROCEDURE/MINOR SURGI MADISYN ORDERABLES Final Result * (ABNORMAL) MANUAL DIFFERENTIAL (12/14/2024 10:21 AM CDT) ADJUSTED WBC 7.0 4.8 - 10.8 K/uL 12/14/2024 11:46 AM [facility] [place] NRBC PER 100 WBC 1(H) <1 /100 WBC 12/14/2024 11:46 AM [facility] [place] SEGMENTED NEUTROPHILS 79(H) 36 - 66 % 12/14/2024 11:46 AM [facility] [place] LYMPHOCYTES RELATIVE 3(L) 43 - 53 % 12/14/2024 11:46 AM [facility] [place] MONOCYTES RELATIVE 8 4 - 10 % 2024 11:46 AM [facility] [place] EOSINOPHILS RELATIVE 1 0 - 3 % 12/14/2024 11:46 AM [facility] [place] METAMYELOCYTES RELATIVE 6(H) 0 - 1 % 12/14/2024 11:46 AM [facility] [place] MYELOCYTES - REL (DIFF) 3(H) <0 % 12/14/2024 11:46 AM [facility] [place] NEUTROPHILS ABSOLUTE COUNT 5.53 1.40 - 6.50 K/uL 12/14/2024 11:46 AM [facility] [place] LYMPHOCYTES ABSOLUTE 0.21(L) 1.20 - 4.00 K/uL 12/14/2024 11:46 AM [facility] [place] MONOCYTES ABSOLUTE 0.56 0.10 - 0.60 K/uL 12/14/2024 11:46 AM [facility] [place] EOSINOPHILS ABSOLUTE 0.07 0.00 - 0.70 K/uL 12/14/2024 11:46 AM [facility] [place] TOTAL CELLS COUNTED IN DIFF 100 12/14/2024 11:46 AM CDT [facility] [place] PLATELET EST. Adequate 12/14/2024 11:46 AM CDT [facility] [place] RBC MORPHOLOGY Normal 12/14/2024 11:46 AM CDT [facility] [place] TOXIC GRANULATION 1+ 025 11:46 AM CDT [facility] [facility] [place] Blood Venipuncture / Unknown 12/14/2024 10:21 AM CDT 12/14/2024 10:53 AM CDT [facility] LABORATORY SERVICES - [place] - 12/14/2024 11:46 AM CDT Adjusted for nucleated RBC's us Rashmi Dumont MD HEMATOLOGY ORDERABLES COM Final Result [facility]3] [facility]ATORY [facility] [place] CLIA# [id number] [address] [place] [address] * (ABNORMAL) CBC WITH DIFFERENTIAL (12/14/2024 10:21 AM CDT) Only the most recent of3 resultswithin the time period is included. WBC 7.1 4.8 - 10.8 K/uL 12/14/2024 11:08 AM [facility] [place] RBC 3.39(L) 4.20 - 5.40 M/uL 12/14/2024 11:08 AM [facility] [place] HEMOGLOBIN 10.8(L) 12.0 - 16.0 g/dL 12/14/2024 11:08 AM [facility] [place] HEMATOCRIT 32.6(L) 36.0 - 46.0 % 12/14/2024 11:08 AM [facility] [place] MCV 96.2 82.0 - 100.0 fL 12/14/2024 11:08 AM [facility] [place] MCH 31.9 27.0 - 34.0 pg 12/14/2024 11:08 AM [facility] [place] MCHC 33.1 31.0 - 37.0 g/dL 12/14/2024 11:08 AM CDT [facility] [place] RDW 15.9(H) 11.0 - 14.5 % 12/14/2024 11:08 AM T [facility]3] [facility] [place] RDW-STDEV 52.6 37.0 - 54.0 fL 12/14/2024 11:08 AM T [facility]3] [facility] [place] PLATELETS 325 140 - 440 K/uL 12/14/2024 11:08 AM T [facility]3] [facility] [place] MPV 9.8 8.9 - 12.8 fL 12/14/2024 11:08 AM T [facility]3] [facility] [place] Blood Venipuncture / Unknown 12/14/2024 10:21 AM CDT 12/14/2024 10:53 AM CDT us Rashmi Dumont MD HEMATOLOGY ORDERABLES Fin al Result [facility]3] [facility] [place] CLIA# [id number] [address] [place] [address] * (ABNORMAL) COMPREHENSIVE METABOLIC PANEL (12/14/2024 10:21 AM CDT) Only the most recent of3 resultswithin the time period is included. SODIUM 140 136 - 145 mmol/L 12/14/2024 11:32 AM [facility] [place] POTASSIUM 3.5 3.5 - 5.1 mmol/L 12/14/2024 11:32 AM T [facility] [place] CHLORIDE 103 98 - 107 mmol/L 12/14/2024 11:32 AM T [facility] [place] CO2 25 22 - 29 mmol/L 12/14/2024 11:32 AM T [facility] [place] CALCIUM 9.2 8.6 - 10.0 mg/dL 12/14/2024 11:32 AM T [facility]3] [facility] [place] BUN 22(H) 6 - 20 mg/dL 12/14/2024 11:32 AM T [facility]3] [facility] [place] CREATININE 1.67(H) 0.51 - 0.95 mg/dL 12/14/2024 11:32 AM [facility] [place] GLUCOSE 98 74 - 99 mg/dL 12/14/2024 11:32 AM [facility] [place] TOTAL PROTEIN 6.6 6.4 - 8.3 g/dL 12/14/2024 11:32 AM [facility] [place] ALBUMIN 3.4(L) 3.5 - 5.2 g/dL 12/14/2024 11:32 AM [facility] [place] BILIRUBIN TOTAL 0.3 0.2 - 1.0 mg/dL 12/14/2024 11:32 AM [facility] [place] ALKALINE PHOSPHATASE 79 35 - 104 U/L 12/14/2024 11:32 AM [facility] [place] AST 33 <=33 U/L 12/14/2024 11:32 AM [facility] [place] ALT 15 <=33 U/L 12/14/2024 11:32 AM [facility] [place] GFR 37(L) >=60 mL/min/1.7 3 sq meter 12/14/2024 11:32 AM [facility] [place] Comment:eGFR calculated with 2020 CKD-EPI equation. Vegetarian diet, extremely high or low muscle mass, and may affect results. Cystatin C with Glomerular Filtration Rate is a suitable alternative for these patients. ANION GAP 12 9 - 20 mmol/L 12/14/2024 11:32 AM [facility] [place] Blood Venipuncture / Unknown 12/14/2024 10:21 AM CDT 12/14/2024 10:54 AM CDT us Rashmi Dumont MD CHEMISTRY ORDERABLES Yareli bland Result [facility]3] [facility] [place] CLIA# [id number] [address] [place] [address] * (ABNORMAL) MAGNESIUM LEVEL (11/27/2024 11:02 AM CDT) MAGNESIUM 1.2(L) 1.6 - 2.6 mg/dL 11/27/2024 11:31 AM CDT [facility]3] LABORATORY SERVICES [facility] Blood Venipuncture / Unknown 11/27/2024 11:02 AM CDT 11/27/2024 11:07 AM CDT us Rashmi Dumont MD CHEMISTRY ORDERABLES Yareli l Result [facility]3] LABORATORY [facility] CLIA# [id number] [address] [place] [address] * HEMOGLOBIN A1C (01/09/2024 4:16 PM CDT) HEMOGLOBIN A1C 5.5 <=5.6 % 01/09/2024 5:13 PM CDT [facility] EST. AVG GLUCOSE, A1C 111 mg/dL 01/09/2024 5:13 PM CDT [facility] Blood Venipuncture / Unknown 01/09/2024 4:16 PM CDT 01/09/2024 4:20 PM CDT Narrative [facility] - 01/09/2024 5:13 PM CDT HGB A1C INTERPRETATION NORMAL: <5.7% PRE-DIABETES: 5.7 - 6.4% DIABETES: 6.5% OR GREATER us Liam Francisco MD CHEMISTRY ORDERABLES Final Resu lt [facility] CLIA # [id number] [address] [place] [address] from Last 3 Months or Most Recently Relevant to Health Maintenance Insurance MEDICA[place] [employer] Medicaid Advance Directives For more information, please contact: [phone] * Full Code (Latest Code Status on File) Date Activated Date Inactivated Comments 09/14/2024 12:03 PM 09/28/2024 7:37 PM * Default Full Code - Needs Discussion Date Activated Date Inactivated Comments 09/13/2024 8:56 PM 09/14/2024 12:03 PM * Full Code Date Activated Date Inactivated Comments 04/20/2024 11:37 PM 04/22/2024 6:20 PM
--- OUTSIDE RECORDS SUMMARY | 2025-02-22 08:23 | XMS_ITS | Encounter Summary ---
Author Organization [facility] Address 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 Cancer and Hematology [place] [address] [facility] [address] [place] [address] Rashmi Dumont MD [address] [facility] [address] [place] [address] 03/23/2025 2:[address] [facility] Radiation Oncology [facility] [address] [facility] 10 [place] [address] [place] [address] 05/03/2025 1:00 PM CDT Office Visit [facility] Ear Nose and Throat Head Neck [facility] [address] [place] [address] [place] [address] Estela Manriquez, CHOREOGRAPHY DIRECTOR [address] [place] [address] [place] [address] documented as of this encounter Procedures Procedure Name Priority Date/Time Associated Diagnosis Comments CBC WITH DIFFERENTIAL Routine 05/29/2024 3:00 AM CDT COMPREHENSIVE METABOLIC PANEL Routine 05/29/2024 3:00 AM CDT documented in this encounter Results * (ABNORMAL) CBC WITH DIFFERENTIAL (05/29/2024 3:00 AM CDT) [facility] WBC 5.1 4.8 - 10.8 K/uL 05/29/2024 5:[address] [facility] LAB[facility]AT[facility] - [place] RBC 3.90(L) 4.20 - 5.40 M/uL 05/29/2024 5:44 AM [facility] HEMOGLOBIN 12.0 12.0 - 16.0 g/dL 05/29/2024 5:44 AM [facility] HEMATOCRIT 37.3 36.0 - 46.0 % 05/29/2024 5:44 AM [facility] MCV 95.6 84.0 - 103.0 fL 05/29/2024 5:44 AM [facility] MCH 30.8 27.0 - 34.0 pg 05/29/2024 5:44 AM [facility] MCHC 32.2 30.0 - 35.0 g/dL 05/29/2024 5:44 AM [facility] RDW 13.7 11.0 - 14.5 % 05/29/2024 5:44 AM [facility] RDW-STDEV 46.7 37.0 - 54.0 fL 05/29/2024 5:44 AM [facility] PLATELETS 312 140 - 440 K/uL 05/29/2024 5:44 AM [facility] MPV 10.9 8.9 - 12.8 fL 05/29/2024 5:44 AM [facility] NEUTROPHILS 59 42 - 75 % 05/29/2024 5:44 AM [facility] LYMPHOCYTES 29 24 - 44 % 05/29/2024 5:44 AM [facility] MONOCYTES 10 2 - 10 % 05/29/2024 5:[address] [facility] EOSINOPHILS 2 0 - 7 % 05/29/2024 5:44 AM [facility] BASOPHILS 1 0 - 1 % 05/29/2024 5:44 AM [facility] IMMATURE GRANULOCYTES 1 0 - 2 % 05/29/2024 5:44 AM [facility] NEUTROPHIL ABSOLUTE 2.97 2.00 - 8.00 K/uL 05/29/2024 5:44 AM [facility] LYMPHOCYTE ABSOLUTE 1.44 1.20 - 4.00 K/uL 05/29/2024 5:44 AM CDT [facility] MONOCYTE ABSOLUTE 0.48 0.10 - 0.60 K/uL 05/29/2024 5:44 AM CDT [facility] EOSINOPHIL ABSOLUTE 0.09 0.00 - 0.70 K/uL 05/29/2024 5:44 AM CDT [facility] BASOPHILS ABSOLUTE 0.03 0.00 - 0.20 K/uL 05/29/2024 5:44 AM CDT [facility] IMMATURE GRANULOCYTES ABSOLUTE 0.04 0.00 - 0.10 K/uL 05/29/2024 5:44 AM T [facility] Blood Collection / Unknown 05/29/2024 3:00 AM CDT 05/29/2024 5:36 AM CDT Henrik Johnson DO HEMATOLOGY ORDERABLES Final Result Performing Organization Address City/State/[facility] Co de Phone Number [facility] CLIA # [id number] [facility] [address] * (ABNORMAL) COMPREHENSIVE METABOLIC PANEL (05/29/2024 3:00 AM CDT) SODIUM 138 136 - 145 mmol/L 05/29/2024 6:23 AM T [facility] POTASSIUM 4.1 3.5 - 5.1 mmol/L 05/29/2024 6:23 AM T [facility] CHLORIDE 98 98 - 107 mmol/L 05/29/2024 6:23 AM T [facility] CO2 28 22 - 29 mmol/L 05/29/2024 6:23 AM T [facility] CALCIUM 9.6 8.6 - 10.0 mg/dL 05/29/2024 6:23 AM T [facility] BUN 18 6 - 20 mg/dL 05/29/2024 6:23 AM T [facility] CREATININE 0.86 0.51 - 0.95 mg/dL 05/29/2024 6:23 AM T [facility] GLUCOSE 146(H) 74 - 99 mg/dL 05/29/2024 6:23 AM [facility] TOTAL PROTEIN 6.4 6.4 - 8.3 g/dL 05/29/2024 6:23 AM [facility] ALBUMIN 3.2(L) 3.5 - 5.2 g/dL 05/29/2024 6:23 AM [facility] BILIRUBIN TOTAL 0.3 0.2 - 1.0 mg/dL 05/29/2024 6:23 AM [facility] ALKALINE PHOSPHATASE 69 35 - 104 U/L 05/29/2024 6:23 AM [facility] AST 41(H) 10 - 35 U/L 05/29/2024 6:23 AM [facility] ALT 38(H) <=35 U/L 05/29/2024 6:23 AM [facility] GFR >60 >=60 mL/min/1.7 3 sq meter 05/29/2024 6:23 AM [facility] Comment:eGFR calculated with 2020 CKD-EPI equation. Vegetarian diet, extremely high or low muscle mass, and may affect results. Cystatin C with Glomerular Filtration Rate is a suitable alternative for these patients. 

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
--- OUTSIDE RECORDS SUMMARY | 2025-02-22 08:23 | XMS_ITS | Encounter Summary ---
Author Organization [facility] Address 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 Cancer and Hematology [place] [address] [facility] [facility] [place] [address] Rashmi Dumont MD [address] [facility] [address] [place] [address] 03/23/2025 2:00 PM CDT Appointment [facility] Radiation Oncology Cancer Center [address] [facility] 10 [place] [address] [place] [address] 05/03/2025 1:00 PM CDT Office Visit [facility] Ear Nose and Throat Head Neck SGF [address] [place] [address] Estela Manriquez, CONTRACT ADMINISTRATOR [address] [place] [address] [place] [address] documented as of this encounter Procedures Procedure Name Priority Date/Time Associated Diagnosis Comments CBC WITH DIFFERENTIAL Routine 05/25/2024 8:00 AM CDT COMPREHENSIVE METABOLIC PANEL Routine 05/25/2024 8:00 AM CDT documented in this encounter Results * (ABNORMAL) CBC WITH DIFFERENTIAL (05/25/2024 8:00 AM CDT) [facility] WBC 5.5 4.8 - 10.8 K/uL 05/25/2024 9:27 AM CDT [facility] LABORATORY [facility] - [place] RBC 3.77(L) 4.20 - 5.40 M/uL 05/25/2024 9:27 AM [facility] HEMOGLOBIN 11.6(L) 12.0 - 16.0 g/dL 05/25/2024 9:27 AM [facility] HEMATOCRIT 35.9(L) 36.0 - 46.0 % 05/25/2024 9:27 AM [facility] MCV 95.2 84.0 - 103.0 fL 05/25/2024 9:27 AM [facility] MCH 30.8 27.0 - 34.0 pg 05/25/2024 9:27 AM [facility] MCHC 32.3 30.0 - 35.0 g/dL 05/25/2024 9:27 AM [facility] RDW 13.7 11.0 - 14.5 % 05/25/2024 9:27 AM [facility] RDW-STDEV 47.6 37.0 - 54.0 fL 05/25/2024 9:27 AM [facility] PLATELETS 196 140 - 440 K/uL 05/25/2024 9:27 AM [facility] MPV 10.1 8.9 - 12.8 fL 05/25/2024 9:27 AM [facility] NEUTROPHILS 68 42 - 75 % 05/25/2024 9:27 AM [facility] LYMPHOCYTES 23(L) 24 - 44 % 05/25/2024 9:27 AM [facility] MONOCYTES 8 2 - 10 % 05/25/2024 9:27 AM [facility] EOSINOPHILS 1 0 - 7 % 05/25/2024 9:27 AM [facility] BASOPHILS 0 0 - 1 % 05/25/2024 9:27 AM [facility] IMMATURE GRANULOCYTES 0 0 - 2 % 05/25/2024 9:27 AM [facility] NEUTROPHIL ABSOLUTE 3.72 2.00 - 8.00 K/uL 05/25/2024 9:27 AM [facility] LYMPHOCYTE ABSOLUTE 1.24 1.20 - 4.00 K/uL 05/25/2024 9:27 AM CDT [facility] MONOCYTE ABSOLUTE 0.42 0.10 - 0.60 K/uL 05/25/2024 9:27 AM CDT [facility] EOSINOPHIL ABSOLUTE 0.04 0.00 - 0.70 K/uL 05/25/2024 9:27 AM CDT [facility] BASOPHILS ABSOLUTE 0.02 0.00 - 0.20 K/uL 05/25/2024 9:27 AM CDT [facility] IMMATURE GRANULOCYTES ABSOLUTE 0.02 0.00 - 0.10 K/uL 05/25/2024 9:27 AM [facility] Blood Collection / Unknown 05/25/2024 8:00 AM CDT 05/25/2024 9:21 AM CDT Henrik Johnson DO HEMATOLOGY ORDERABLES Final Result Performing Organization Address City/State/[facility] Co de Phone Number [facility] CLIA # [id number] [facility] [address] * (ABNORMAL) COMPREHENSIVE METABOLIC PANEL (05/25/2024 8:00 AM CDT) SODIUM 143 136 - 145 mmol/L 05/25/2024 9:54 AM T [facility] POTASSIUM 4.0 3.5 - 5.1 mmol/L 05/25/2024 9:54 AM T [facility] CHLORIDE 105 98 - 107 mmol/L 05/25/2024 9:54 AM CDT [facility] CO2 30(H) 22 - 29 mmol/L 05/25/2024 9:54 AM T [facility] CALCIUM 8.8 8.6 - 10.0 mg/dL 05/25/2024 9:54 AM T [facility] BUN 8 6 - 20 mg/dL 05/25/2024 9:54 [facility] CREATININE 0.82 0.51 - 0.95 mg/dL 05/25/2024 9:54 AM [facility] GLUCOSE 131(H) 74 - 99 mg/dL 05/25/2024 9:54 AM [facility] TOTAL PROTEIN 6.1(L) 6.4 - 8.3 g/dL 05/25/2024 9:54 AM [facility] ALBUMIN 2.9(L) 3.5 - 5.2 g/dL 05/25/2024 9:54 AM [facility] BILIRUBIN TOTAL 0.2 0.2 - 1.0 mg/dL 05/25/2024 9:54 AM [facility] ALKALINE PHOSPHATASE 64 35 - 104 U/L 05/25/2024 9:54 AM [facility] AST 29 10 - 35 U/L 05/25/2024 9:54 AM [facility] ALT 25 <=35 U/L 05/25/2024 9:54 AM [facility] GFR >60 >=60 mL/min/1.7 3 sq meter 05/25/2024 9:54 AM [facility] Comment:eGFR calculated with 2020 CKD-EPI equation. Vegetarian diet, extremely high or low muscle mass, and may affect results. Cystatin C with Glomerular Filtration Rate is a suitable alternative for these patients. ANION GAP 8(L) 9 - 20 mmol/L 05/25/2024 9:54 AM [facility] Blood Collection / Unknown 05/25/2024 8:00 AM CDT 05/25/2024 9:21 AM T us Henrik Johnson DO CHEMISTRY ORDERABLES Final R esult [facility] CLIA # [id number] [facility] [address] documented in this encounter Visit Diagnoses Not on filedocumented in this encounter Additional Health Concerns Infection Onset Date Last Indicated Resolved Time R/O Respiratory 09/13/2024 09/13/2024 09/13/2024 1 0:56 PM [employer] Respiratory Syncytial Virus (RSV) 09/14/2024 025 10/12/2024 1:16 AM [employer] Assessment Noted Time PHQ-9 Depression Total Score: 1 04/20/20 24 11:16 PM CDT documented as of this encounter Care Teams Pie Filler Relationship Specialty Start Date End Date Anu Thompson DO [address] [place] [address] PCP - General Family Practice 07/21/23 09/17/24 documented as of this encounter
--- OUTSIDE RECORDS SUMMARY | 2025-02-22 08:23 | XMS_ITS ---
Author Organization [facility] Address [address] [place] [address] Phone Care Team Providers Care Operations Technician Name Role Phone Unavailable Primary Care [...] Medications Current Day (Day 1 , Cycle 6 - Planned for 12/04/2024) CISplatin (PLATINOL) with mannitol CISpl atin (PLATINOL) 78 mg in sodium chloride 0.9 % 500 mL IVPB Other Current Plans OP ONC FILGRASTIM SUBCUT DAILY X 5 DAYS* Plan Start Date:12/08/2024 Plan Provider:Abigail Santos FNP Linked Problems Chemotherapy induced neutrop enia Treatment Medications No medications scheduled. Past Treatment and Therapy Plans No past plan information found. Lifetime Dose Tracking * Chemical Lifetime Dose Automatic Entry Manual Entr y cisplatin 192.678 mg/m2 (370 mg) 192.678 mg/m2 (370 mg) 0 mg/m2 (0 mg) Effective Dose [...]
--- OUTSIDE RECORDS SUMMARY | 2025-02-22 08:23 | XMS_ITS | Encounter Summary ---
Author Organization [facility] Address 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 Gender Identity Not on file Sexual Orientation Not on file documented as of this encounter Plan of Treatment Upcoming Encounters Date Type Department Care Team (Late Contact Info) Description 03/23/2025 10:00 AM CDT Appointment [facility] Laboratory Services [address] [facility] 2 [place] [address] Rashmi Dumont MD [address] [facility] [address] [place] [address] 03/23/2025 11:00 AM CDT Office Visit [facility] Cancer and Hematology [place] [address] [facility] [place] [address] Rashmi Dumont MD [address] [facility] [address] [place] [address] 03/23/2025 2:00 PM CDT Appointment [facility] Radiation Oncology [facility] [address] [facility] 10 [place] [address] [place] [address] 05/03/2025 1:00 PM CDT Office Visit [facility] Ear Nose and Throat Head Neck SGF [address] [place] [address] Estela Manriquez, SOLUTION DEVELOPER [address] [place] [address] [place] [address] documented as of this encounter Procedures Procedure Name Priority Date/Time Associated Diagnosis Comments CBC WITH DIFFERENTIAL Routine 06/05/2024 3:40 AM CDT COMPREHENSIVE METABOLIC PANEL Routine 06/05/2024 3:40 AM CDT documented in this encounter Results * (ABNORMAL) CBC WITH DIFFERENTIAL (06/05/2024 3:40 AM CDT) [facility] WBC 7.2 4.8 - 10.8 K/uL 06/05/2024 6:01 AM CDT [facility] [place] RBC 3.98(L) 4.20 - 5.40 M/uL 06/05/2024 6:01 AM [facility] HEMOGLOBIN 12.1 12.0 - 16.0 g/dL 06/05/2024 6:01 AM [facility] [employer] [facility] HEMATOCRIT 38.6 36.0 - 46.0 % 06/05/2024 6:01 AM [facility] MCV 97.0 84.0 - 103.0 fL 06/05/2024 6:01 AM [facility] [employer] [facility] MCH 30.4 27.0 - 34.0 pg 06/05/2024 6:01 AM [facility] [employer] [facility] MCHC 31.3 30.0 - 35.0 g/dL 06/05/2024 6:01 AM [facility] [employer] [facility] RDW 15.0(H) 11.0 - 14.5 % 06/05/2024 6:01 AM [facility] [employer] [facility] RDW-STDEV 53.1 37.0 - 54.0 fL 06/05/2024 6:01 AM [facility] [employer] [facility] PLATELETS 318 140 - 440 K/uL 06/05/2024 6:01 AM [facility] [employer] [facility] MPV 10.7 8.9 - 12.8 fL 06/05/2024 6:01 AM [facility] NEUTROPHILS 56 42 - 75 % 06/05/2024 6:01 AM [facility] LYMPHOCYTES 33 24 - 44 % 06/05/2024 6:01 AM [facility] [employer] [facility] MONOCYTES 9 2 - 10 % 06/05/2024 6:01 AM [facility] [employer] [facility] EOSINOPHILS 2 0 - 7 % 06/05/2024 6:01 AM [facility] [employer] [facility] BASOPHILS 1 0 - 1 % 06/05/2024 6:01 AM [facility] [employer] [facility] IMMATURE GRANULOCYTES 1 0 - 2 % 06/05/2024 6:01 AM [facility] [employer] [facility] NEUTROPHIL ABSOLUTE 4.03 2.00 - 8.00 K/uL 06/05/2024 6:01 AM [facility] [employer] [facility] LYMPHOCYTE ABSOLUTE 2.35 1.20 - 4.00 K/uL 06/05/2024 6:[address] [facility] MONOCYTE ABSOLUTE 0.61(H) 0.10 - 0.60 K/uL 06/05/2024 6:[address] [facility] EOSINOPHIL ABSOLUTE 0.12 0.00 - 0.70 K/uL 06/05/2024 6:[address] [facility] BASOPHILS ABSOLUTE 0.05 0.00 - 0.20 K/uL 06/05/2024 6:[address] [facility] IMMATURE GRANULOCYTES ABSOLUTE 0.04 0.00 - 0.10 K/uL 06/05/2024 6:[address] [facility] Blood Collection / Unknown 06/05/2024 3:40 AM CDT 06/05/2024 5:53 AM CDT Henrik Johnson DO HEMATOLOGY ORDERABLES Final Result Performing Organization Address City/State/[facility] Co de Phone Number [facility] CLIA # [id number] [facility] [address] * (ABNORMAL) COMPREHENSIVE METABOLIC PANEL (06/05/2024 3:40 AM CDT) SODIUM 140 136 - 145 mmol/L 06/05/2024 6:[address] [facility] POTASSIUM 4.8 3.5 - 5.1 mmol/L 06/05/2024 6:[address] [facility] CHLORIDE 106 98 - 107 mmol/L 06/05/2024 6:[address] [facility] CO2 23 22 - 29 mmol/L 06/05/2024 6:[address] [facility] CALCIUM 9.6 8.6 - 10.0 mg/dL 06/05/2024 6:[address] [facility] BUN 36(H) 6 - 20 mg/dL 06/05/2024 6:[address] [facility] CREATININE 1.10(H) 0.51 - 0.95 mg/dL 06/05/2024 6:33 AM [facility] GLUCOSE 85 74 - 99 mg/dL 06/05/2024 6:33 AM [facility] TOTAL PROTEIN 6.4 6.4 - 8.3 g/dL 06/05/2024 6:33 AM [facility] ALBUMIN 3.4(L) 3.5 - 5.2 g/dL 06/05/2024 6:33 AM [facility] BILIRUBIN TOTAL 0.2 0.2 - 1.0 mg/dL 06/05/2024 6:33 AM [facility] ALKALINE PHOSPHATASE 81 35 - 104 U/L 06/05/2024 6:33 AM [facility] AST 35 10 - 35 U/L 06/05/2024 6:33 AM [facility] ALT 35 <=35 U/L 06/05/2024 6:33 AM [facility] GFR >60 >=60 mL/min/1. 73 sq meter 06/05/2024 6:33 AM [facility] Comment:eGFR calculated with 2020 CKD-EPI equation. Vegetarian diet, extremely high or low muscle mass, and may affect results. Cystatin C with Glomerular Filtration Rate is a suitable alternative for these patients. ANION GAP 11 9 - 20 mmol/L 06/05/2024 6:33 AM [facility] Blood Collection / Unknown 06/05/2024 3:40 AM CDT 06/05/2024 5:53 AM CDT us Henrik Johnson DO CHEMISTRY ORDERABLES Final R esult [facility] CLIA # [id number] [address] [address] documented in this encounter Visit Diagnoses Not on filedocumented in this encounter Additional Health Concerns Infection Onset Date Last Indicated Resolved Time R/O Respiratory 09/13/2024 09/13/2024 09/13/2024 1 0:56 PM WEB COORDINATOR Respiratory Syncytial Virus (RSV) 09/14/2024 025 10/12/2024 1:16 AM WEB COORDINATOR Assessment Noted Time PHQ-9 Depression Total Score: 1 04/20/20 24 11:16 PM CDT documented as of this encounter Care Teams Food Beverage Supervisor Relationship Specialty Start Date End Date Anu Thompson DO [address] [place] [address] PCP - General Family Practice 07/21/23 09/17/24 documented as of this encounter
--- OUTSIDE RECORDS SUMMARY | 2025-02-22 08:23 | XMS_ITS | Encounter Summary ---
Author Organization [facility] Address 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 Gender Identity Not on file Sexual Orientation Not on file documented as of this encounter Plan of Treatment Upcoming Encounters Date Type Department Care Team (Late Contact Info) Description 03/23/2025 10:00 AM CDT Appointment [facility] Laboratory Services [address] [facility] 2 [place] [address] Rashmi Dumont MD [address] [facility] [address] [place] [address] 03/23/2025 11:00 AM CDT Office Visit [facility] Cancer and Hematology [place] [address] [place] [place] [address] Rashmi Dumont MD [address] [facility] [address] [place] [address] 03/23/2025 2:00 PM CDT Appointment [facility] Radiation Oncology Cancer Center [address] [facility] 10 [place] [address] [place] [address] 05/03/2025 1:00 PM CDT Office Visit [facility] Ear Nose and Throat Head Neck SGF [address] [place] [address] Estela Manriquez, POLITICAL DIRECTOR [address] [place] [address] [place] [address] documented as of this encounter Procedures Procedure Name Priority Date/Time Associated Diagnosis Comments CBC WITH DIFFERENTIAL Routine 05/23/2024 3:00 AM CDT COMPREHENSIVE METABOLIC PANEL Routine 05/23/2024 3:00 AM CDT documented in this encounter Results * (ABNORMAL) CBC WITH DIFFERENTIAL (05/23/2024 3:00 AM CDT) [facility] WBC 5.2 4.8 - 10.8 K/uL 05/23/2024 7:41 AM CDT [facility] RBC 3.18(L) 4.20 - 5.40 M/uL 05/23/2024 7:41 AM [facility] HEMOGLOBIN 9.7(L) 12.0 - 16.0 g/dL 05/23/2024 7:41 AM [facility] [employer] [facility] HEMATOCRIT 31.1(L) 36.0 - 46.0 % 05/23/2024 7:41 AM [facility] MCV 97.8 84.0 - 103.0 fL 05/23/2024 7:41 AM [facility] [employer] [facility] MCH 30.5 27.0 - 34.0 pg 05/23/2024 7:41 AM [facility] [employer] [facility] MCHC 31.2 30.0 - 35.0 g/dL 05/23/2024 7:41 AM [facility] [employer] [facility] RDW 13.1 11.0 - 14.5 % 05/23/2024 7:41 AM [facility] [employer] [facility] RDW-STDEV 46.8 37.0 - 54.0 fL 05/23/2024 7:41 AM [facility] [employer] [facility] PLATELETS 157 140 - 440 K/uL 05/23/2024 7:41 AM [facility] [employer] [facility] MPV 10.6 8.9 - 12.8 fL 05/23/2024 7:41 AM [facility] [employer] [facility] NEUTROPHILS 72 42 - 75 % 05/23/2024 7:41 AM [facility] LYMPHOCYTES 19(L) 24 - 44 % 05/23/2024 7:41 AM [facility] [employer] [facility] MONOCYTES 8 2 - 10 % 05/23/2024 7:41 AM [facility] [employer] [facility] EOSINOPHILS 1 0 - 7 % 05/23/2024 7:41 AM [facility] [employer] [facility] BASOPHILS 0 0 - 1 % 05/23/2024 7:41 AM [facility] [employer] [facility] IMMATURE GRANULOCYTES 0 0 - 2 % 05/23/2024 7:41 AM [facility] [employer] [facility] NEUTROPHIL ABSOLUTE 3.76 2.00 - 8.00 K/uL 05/23/2024 7:41 AM [facility] [employer] [facility] LYMPHOCYTE ABSOLUTE 0.99(L) 1.20 - 4.00 K/uL 05/23/2024 7:41 AM CDT [facility] MONOCYTE ABSOLUTE 0.40 0.10 - 0.60 K/uL 05/23/2024 7:41 AM CDT [facility] EOSINOPHIL ABSOLUTE 0.03 0.00 - 0.70 K/uL 05/23/2024 7:41 AM CDT [facility] BASOPHILS ABSOLUTE 0.02 0.00 - 0.20 K/uL 05/23/2024 7:41 AM CDT [facility] IMMATURE GRANULOCYTES ABSOLUTE 0.01 0.00 - 0.10 K/uL 05/23/2024 7:41 AM [facility] Blood Collection / Unknown 05/23/2024 3:00 AM CDT 05/23/2024 7:41 AM CDT Henrik Johnson DO HEMATOLOGY ORDERABLES Final Result [facility] CLIA # [id number] [address] [place] [address] * (ABNORMAL) COMPREHENSIVE METABOLIC PANEL (05/23/2024 3:00 AM CDT) SODIUM 140 136 - 145 mmol/L 05/23/2024 8:09 AM T [facility] POTASSIUM 3.7 3.5 - 5.1 mmol/L 05/23/2024 8:09 AM [facility] CHLORIDE 101 98 - 107 mmol/L 05/23/2024 8:09 AM T [facility] CO2 32(H) 22 - 29 mmol/L 05/23/2024 8:09 AM T [facility] CALCIUM 8.9 8.6 - 10.0 mg/dL 05/23/2024 8:09 AM T [facility] BUN 9 6 - 20 mg/dL 05/23/2024 8:09 AM [facility] CREATININE 0.86 0.51 - 0.95 mg/dL 05/23/2024 8:09 AM [facility] GLUCOSE 95 74 - 99 mg/dL 05/23/2024 8:09 AM [facility] TOTAL PROTEIN 5.5(L) 6.4 - 8.3 g/dL 05/23/2024 8:09 AM [facility] ALBUMIN 2.6(L) 3.5 - 5.2 g/dL 05/23/2024 8:09 AM [facility] BILIRUBIN TOTAL 0.5 0.2 - 1.0 mg/dL 05/23/2024 8:09 AM [facility] ALKALINE PHOSPHATASE 50 35 - 104 U/L 05/23/2024 8:09 AM [facility] AST 28 10 - 35 U/L 05/23/2024 8:09 AM [facility] ALT 20 <=35 U/L 05/23/2024 8:09 AM [facility] GFR >60 >=60 mL/min/1.7 3 sq meter 05/23/2024 8:09 AM [facility] Comment:eGFR calculated with 2020 CKD-EPI equation. Vegetarian diet, extremely high or low muscle mass, and may affect results. Cystatin C with Glomerular Filtration Rate is a suitable alternative for these patients. 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
--- NOTE | 2025-02-22 08:24 | W.ED.SOB ---
HPI - SOB/Dyspnea General: Chief Complaint: Shortness of Breath/Dyspnea Stated Complaint: Sob, trach problems Time Seen by Provider: 02/22/25 08:22 History of Present Illness: HPI Narrative: 49-year-old female presents emergency room complaining of shortness of breath. Patient has a history of laryngeal cancer and has a tracheostomy. She also has a PEG tube in place. Patient reports approximately 10 days ago tracheostomy tube was replaced by ENT that she sees in [place]. She states since then she has had difficulty with that she feels short of breath. She does have a PEG tube but she is instead been taking things by mouth states she has difficult time swallowing. No fever sweats or chills. Denies chest pain or abdominal pain no productive cough no hemoptysis. She states she has been suctioning her trach regularly. Does sound very coarse at the time patient is seen. Associated symptoms: Deny abdominal pain, chest pain or fever(s) Related Data Home Medications ?Medication ?Instructions ?Recorded ?Confirmed budesonide 0.5 mg/2 mL suspension 0.5 mg inhalation BID PRN 05/08/24 10/14/24 for nebulization Shortness Of Breath albuterol sulfate 90 mcg/actuation 2 inh inhalation Q4H PRN shortness 08/22/24 10/14/24 aerosol inhaler of breath or wheezing clopidogrel 75 mg tablet (Plavix) 75 mg PO DAILY 08/22/24 10/14/24 hydroxyzine HCl 10 mg tablet 10 mg PO TID PRN Anxiety 08/22/24 10/14/24 ipratropium 0.5 mg-albuterol 3 mg 3 ml inhalation QID PRN Shortness 08/22/24 10/14/24 (2.5 mg base)/3 mL nebulization Of Breath Or Wheezing soln paroxetine HCl 40 mg tablet See Rx Instructions .Route .COMPLEX 08/22/24 10/14/24 alprazolam 0.5 mg tablet 0.5 mg PO DAILY PRN anxiety 10/14/24 10/14/24 hydralazine 50 mg tablet 50 mg PO TID 10/14/24 10/14/24 Held on 10/17/24. Instructions: Resume on 10/31/24. hold until you see primary care hydrocodone 5 mg-acetaminophen 325 1 tab PO Q6H PRN Pain 10/14/24 10/14/24 mg tablet olanzapine 5 mg tablet 5 mg PO QPM 10/14/24 10/14/24 ondansetron 8 mg disintegrating 8 mg PO Q8H PRN Nausea And Vomiting 10/14/24 10/14/24 tablet tramadol 50 mg tablet 50 mg PO TID 10/14/24 10/14/24 Previous Rx's ?Medication ?Instructions ?Recorded aspirin 81 mg tablet,delayed 81 mg PO DAILY #30 tabs 01/15/24 release atorvastatin 40 mg tablet 40 mg PO BEDTIME #90 tabs 02/15/24 metoprolol tartrate 25 mg tablet 25 mg PO BID@0900,2100 #180 tabs 02/15/24 albuterol sulfate 2.5 mg/3 mL 2.5 mg (3 mL) inhalation Q4H PRN 04/12/24 (0.083 %) solution for nebulization shortness of breath or wheezing #90 mL guaifenesin 600 mg tablet, 1,200 mg (2 x 600 mg) PO 08/25/24 extended release 12 hr (Mucinex) BID@0900,2100 #30 tabs prednisone 20 mg tablet 20 mg PO TID #15 tabs 02/22/25 Allergies Allergy/AdvReac Type Severity Reaction Status Date / Time hydromorphone (From Dilaudid) Allergy ADR-Migrain Verified 10/19/24 15:01 e Review of Systems Const: Denies: fever(s) or chills Card: Denies: chest pain Resp: Reports: dyspnea GI: Denies: abdominal pain : Denies: dysuria, urinary frequency or urinary urgency Musc: Denies: neck pain or back pain Skin/Breast: Denies: rash PFSH ED PFSH: Medical History COPD (chronic obstructive pulmonary disease) CKD (chronic kidney disease) Diastolic heart failure Hypertension Coronary artery disease Coronary angiogram from 01/13 showed moderate disease in LCx and LAD?negative on IFR Abnormal stress test Cannabis use disorder, mild, abuse Amphetamine use disorder, severe, dependence Bipolar disorder in full remission Bipolar disorder Social History Smoking and tobacco/nicotine status: current every day tobacco/nicotine user cigarettes Packs smoked per day: 1.5 Years cigarettes smoked: 30 Quit status (tobacco/nicotine): not considering quitting Second hand smoke exposure: Yes Current gender identity: Female Physical Exam Const: GENERAL APPEARANCE: cooperative ORIENTATION/CONSCIOUSNESS: Yes awake, Yes oriented to person, Yes oriented to place and Yes oriented to time HENMT: COMMON NORMALS: normocephalic, atraumatic and hearing grossly normal bilaterally HEAD & SCALP: normocephalic and atraumatic Neck/C-Spine: OTHER: Tracheostomy tube in place. Resp: COMMON NORMALS: normal respiratory effort, No retractions and No use of accessory muscles AUSCULTATION: rhonchi and wheezes Cardio: COMMON NORMALS: regular rate, regular rhythm and No murmurs present (Cardio) RATE: regular rate RHYTHM: regular rhythm GI: COMMON NORMALS: Soft to palpation and No hepatosplenomegaly present AUSCULTATION: Yes normoactive bowel sounds PALPATION: Yes Soft to palpation, No Tenderness to palpation present (GI), No Guarding due to palpation present (GI) and Yes No hepatosplenomegaly present Extremity: COMMON NORMALS: normal to inspection, capillary refill normal, no clubbing, cyanosis or edema, no calf tenderness and no pedal edema Neuro: SENSORIUM/ORIENTATION: Yes oriented to person, Yes oriented to place and Yes oriented to time Skin: COMMON NORMALS: no rashes or lesions noted GENERAL SKIN EXAM: no rashes or lesions noted Course Vital Signs: Vital signs: Vital Signs Temperature 98.3 F 02/22/25 08:26 Pulse Rate 95 02/22/25 11:55 Respiratory Rate 16 02/22/25 11:55 Blood Pressure 158/88 02/22/25 11:55 Pulse Oximetry 96 02/22/25 11:55 Oxygen Delivery Me thod Room Air 02/22/25 08:49 MDM - SOB/Dyspnea Medical Decision Making Her biggest complaint is shortness of breath she says she has been suctioning her trach 10 times or more per day I think that may be part of additionally she is not doing well with swallowing. Encouraged her to use the PEG tube more frequently. Put her on a steroid taper. I have encouraged her to follow-up with ENT that manages trach as soon as she is able. Her oxygenation is good other laboratory test reviewed no significant clinical findings at this time. Medical Records I reviewed the patient's medical records. Lab Data I reviewed the patient's lab results. 02/22/25 10:07 02/22/25 10:07 Labs/Radiology: Radiology Impressions Chest X-Ray 02/22/25 08:22 IMPRESSION: Stable abnormal chest as above. No acute abnormality. Laboratory Results WBC 7.47 10^3/uL (3.29-11.43) 02/22/25 10:07 RBC 4.22 10^6/uL (3.85-5.65) 02/22/25 10:07 Hgb 13.00 g/dL (11.27-16.99) 02/22/25 10:07 Hct 41.6 % (36-47) 02/22/25 10:07 MCV 98.6 fl (85-98) H 02/22/25 10:07 MCH 30.8 pg (27-33) 02/22/25 10:07 MCHC 31.3 g/dL (30-55) 02/22/25 10:07 RDW 13.4 % (12.1-15.1) 02/22/25 10:07 Plt Count 264 10^3/cmm (157-399) 02/22/25 10:07 MPV 10.0 fL (7.4-10.4) 02/22/25 10:07 Neut % (Auto) 78.3 % 02/22/25 10:07 Lymph % (Auto) 13.9 % 02/22/25 10:07 Williamson % (Auto) 6.8 % 02/22/25 10:07 Eos % (Auto) 0.4 % 02/22/25 10:07 Baso % (Auto) 0.3 % 02/22/25 10:07 Neut # (Auto) 5.85 10^3/uL (1.8-7.7) 02/22/25 10:07 Lymph # (Auto) 1.0 10^3/uL (0.8-4.8) 02/22/25 10:07 Williamson # (Auto) 0.5 10^3/uL (0.2-0.9) 02/22/25 10:07 Eos # (Auto) 0.0 10^3/uL (0.0-0.8) 02/22/25 10:07 Baso # (Auto) 0.0 10^3/uL (0.0-0.1) 02/22/25 10:07 Nucleated RBC % (auto) 0 % 02/22/25 10:07 Nucleated RBCs # 0.0 /100WBC 02/22/25 10:07 Sodium 142 mmol/L (136-145) 02/22/25 10:07 Potassium 3.8 mmol/L (3.5-5.1) 02/22/25 10:07 Chloride 101 mmol/L (98-107) 02/22/25 10:07 Carbon Dioxide 23 mmol/L (22-29) 02/22/25 10:07 Anion Gap 21.8 (5-19) H 02/22/25 10:07 BUN 23 mg/dL (6-20) H 02/22/25 10:07 Creatinine 1.1 mg/dL (0.5-0.9) H 02/22/25 10:07 GFR Calculation 52.4 mL/min (90-130) L 02/22/25 10:07 Glucose 122 mg/dL (65-115) H 02/22/25 10:07 Calculated Osmolality 299 mOsm/kg (285-295) H 02/22/25 10:07 Calcium 10.5 mg/dL (8.5-10.5) 02/22/25 10:07 Total Bilirubin 0.3 mg/dL (0.15-1.2) 02/22/25 10:07 AST 15 U/L (0-32) 02/22/25 10:07 ALT 6 U/L (0-33) 02/22/25 10:07 Alkaline Phosphatase 69 U/L (35-105) 02/22/25 10:07 Total Protein 8.1 g/dL (6.6-8.7) 02/22/25 10:07 Albumin 3.5 g/dL (3.5-5.2) 02/22/25 10:07 Globulin 4.6 g/dL (1.3-4.6) 02/22/25 10:07 Urine Color Dark yellow (Yellow) A 02/22/25 09:24 Urine Appearance Clear (CLEAR) 02/22/25 09:24 Urine pH 5.5 (5-7) 02/22/25 09:24 Ur Specific [place] 1.038 (1.005-1.030) H 02/22/25 09:24 Urine Protein 1+ (Negative) A 02/22/25 09:24 Urine Glucose (UA) Negative (Normal) 02/22/25 09:24 Urine Ketones 1+ (Negative) H 02/22/25 09:24 Urine Blood Negative (Negative) 02/22/25 09:24 Urine Nitrate Negative (Negative) 02/22/25 09:24 Urine Bilirubin Negative (Negative) 02/22/25 09:24 Urine Urobilinogen 1.0 mg/dL (Negative) 02/22/25 09:24 Ur Leukocyte Esterase Negative (Negative) 02/22/25 09:24 Urine RBC 0-2 /hpf (0-2) 02/22/25 09:24 Urine WBC 0-5 /hpf (0-5) 02/22/25 09:24 Ur Squamous Epith Cells 0-5 /hpf (0-5) 02/22/25 09:24 Amorphous Sediment Not Reportable 02/22/25 09:24 Urine Bacteria None seen /hpf (NONE) 02/22/25 09:24 Hyaline Casts 4.11 /lpf 02/22/25 09:24 All radiology interpretation(s) finalized by discharge Discharge Plan Discharge Patient Disposition: Home Clinical Impression: Pharyngitis, COPD exacerbation Condition: Stable Prescriptions: New prednisone 20 mg tablet 20 mg PO TID Qty: 15 0RF Rx Instructions: 1 p.o. 3 times daily x3 days, 1 p.o. twice daily x2 days, 1 p.o. daily x2 days No Action atorvastatin 40 mg tablet 40 mg PO BEDTIME Qty: 90 1RF metoprolol tartrate 25 mg tablet 25 mg PO BID@0900,2100 Qty: 180 1RF hydrocodone-acetaminophen 5-325 mg tablet 1 tab PO Q6H PRN (Reason: Pain) olanzapine 5 mg Tablet 5 mg PO QPM tramadol 50 mg Tablet 50 mg PO TID ondansetron 8 mg Tablet,Disintegrating 8 mg PO Q8H PRN (Reason: Nausea And Vomiting) Rx Instructions: start before Chemo alprazolam 0.5 mg Tablet 0.5 mg PO DAILY PRN (Reason: anxiety) hydralazine 50 mg Tablet 50 mg PO TID aspirin 81 mg Tablet,Delayed Release (Dr/Ec) 81 mg PO DAILY Qty: 30 0RF albuterol sulfate 2.5 mg /3 mL (0.083 %) solution for nebulization 2.5 mg INHALATION Q4H PRN (Reason: shortness of breath or wheezing) Qty: 90 0RF budesonide 0.5 mg/2 mL suspension for nebulization 0.5 mg inhalation BID PRN (Reason: Shortness Of Breath) ipratropium-albuterol 0.5 mg-3 mg(2.5 mg base)/3 mL Solution For Nebulization 3 ml INHALATION QID PRN (Reason: Shortness Of Breath Or Wheezing) clopidogrel [Plavix] 75 mg Tablet 75 mg PO DAILY Rx Instructions: crush 1 tablet and put in gi tube daily paroxetine HCl 40 mg Tablet See Rx Instructions .ROUTE .COMPLEX Rx Instructions: 40 mg orally ;place 1 tab in tube daily hydroxyzine HCl 10 mg Tablet 10 mg PO TID PRN (Reason: Anxiety) albuterol sulfate 90 mcg/actuation HFA aerosol inhaler 2 inh inhalation Q4H PRN (Reason: shortness of breath or wheezing) guaifenesin [Mucinex] 600 mg Tablet Extended Release 12hr 1,200 mg PO BID@0900,2100 Qty: 30 0RF Discharge Orders: Discharge ED (Routine); Ordered 02/22/25 Ordered By: Gilles Recinos Referrals: Edilma Stringer [Primary Care Provider] Discharge Diet: As Directed Discharge Activity: Increase activity as tolerated Patient Instructions: Opioid Safety, Pain Management, Patient Portal & Boogie Instructions Activity Restrictions/Additional Instructions: Thank you for choosing [facility] for your healthcare needs today. It is very important that you follow up as instructed or that you return to the Emergency Department should you have concerns or if your condition changes or worsens in any way. You are seen emergency room with complaint of sore throat. Respiratory therapy did tracheostomy care and did not find any particular abnormalities. You may need to cut down on the number of times to suction per day. Would recommend using the PEG tube more regularly to avoid swallowing by mouth. Contact the physician who helps manage her tracheostomy as soon as you are able review with them the symptoms you are having to see if they wish to change any of the course of care. We did give you a course of steroids to take this should help with the sore throat sensation. You can also use bned-egw-jizknar medication such as Chloraseptic or throat lozenges to relieve the pain. Print Language: Slovenian Coding Level of Care Code ED Gift Manager for Shara Zaldivar
[2025-02-22] MEDS: methylPREDNISolone sod succ 125 mg/2 mL INJ IVP (09:14)
[2025-02-22 09:42] LABS: Glucose Urine UA Negative (Normal); Nitrate Urine Negative (Negative)
[2025-02-22 09:47] LABS: Add Urine Microscopic? YES
[2025-02-22 09:53] LABS: Specific Gravity, Urine 1.038 (1.005-1.030)
[2025-02-22 10:15] LABS: Hematocrit 41.6 % (36-47); Hemoglobin 13.00 g/dL (11.27-16.99); Mean Corpuscular HGB Conc 31.3 g/dL (30-55); Mean Corpuscular Hemoglobin 30.8 pg (27-33); Mean Corpuscular Volume 98.6 fl (85-98); Nucleated Red Blood Cells % 0 %; Platelet Count 264 10^3/cmm (157-399); Red Blood Count 4.22 10^6/uL (3.85-5.65); White Blood Count 7.47 10^3/uL (3.29-11.43)
[2025-02-22 10:34] LABS: Alanine Aminotransferase 6 U/L (0-33); Albumin Level 3.5 g/dL (3.5-5.2); Alkaline Phosphatase 69 U/L (35-105); Aspartate Amino Transferase 15 U/L (0-32); Blood Urea Nitrogen 23 mg/dL (6-20); Calcium 10.5 mg/dL (8.5-10.5); Carbon Dioxide 23 mmol/L (22-29); Chloride 101 mmol/L (98-107); Creatinine Clr Calc Pharmacy 59.5293; Globulin 4.6 g/dL (1.3-4.6); Glucose 122 mg/dL (65-115); Osmolality Calculated 299 mOsm/kg (285-295); Sodium 142 mmol/L (136-145); Total Protein 8.1 g/dL (6.6-8.7)
[2025-02-22 10:35] LABS: Anion Gap 21.8 (5-19); Potassium 3.8 mmol/L (3.5-5.1)
[2025-02-22] MEDS: acetaminophen 1,000 MG/100 ML PIGGYBACK 400 MG IV (11:15)
== END 2025-02-22 11:55 | disposition home or self-care (01) ==
PROVIDERS: Emergency Provider Family Medicine; PCP Nurse Practitioner Adult Health
DX: J02.9 Acute pharyngitis, unspecified (principal); J44.1 Chronic obstructive pulmonary disease with (acute) exacerbation; Z79.82 Long term (current) use of aspirin; Z79.02 Long term (current) use of antithrombotics/antiplatelets; F17.210 Nicotine dependence, cigarettes, uncomplicated; I25.10 Atherosclerotic heart disease of native coronary artery without angina pectoris; I13.0 Hypertensive heart and chronic kidney disease with heart failure and stage 1 through stage 4 chronic kidney disease, or unspecified chronic kidney disease; N18.9 Chronic kidney disease, unspecified; I50.30 Unspecified diastolic (congestive) heart failure
CPT/HCPCS: 36415; 36591; 71045; 80053; 81001; 85025; 87070; 87205; 93005; 94640; 94799; 96365; 96372; 96375; 99285; J0131; J1100; J1885; J2919; J7030; J9999

== ENCOUNTER 2025-02-23 04:16 | Emergency (ER) | payer MEDICAID, SELFPAY ==
--- OUTSIDE RECORDS SUMMARY | 2023-07-06 04:30 | XMS_ITS | Continuity of Care Document ---
Author Organization [facility] Address [address] [id number]-[place] [address] Phone Care Team Providers [employer] Principal Name Role Phone Camila Schaeffer DDS Unavailable [...] Diagnoses Date Provider Providers Copied on Encounter [facility], [id number]- [place], [place], [address], [place] tel:[phone] [facility] Encounter for dental exam and cleaning w/o abnormal findings 3 Laury Jensen. [address], [place], [address] , [place]. tel:[phone] Referring Provider: Camila Schaeffer, [address] [place], [address] . tel:[phone] OFFICE/OUTPA TIENT VISIT, [facility], [id number]- [place], [place], [address], tel:[phone] [facility] Hypertension (chief complaint)Hea dache (chief complaint) Hypertensive emergencyRecurren t headache 3 Mike Wolf. [address], [place], [address] , [place]. tel:[phone] Referring Provider: Maryann Mckeon, [address] [place], [address] . tel:[phone] [facility], [id number]- [place], [place], [address], [place] tel:[phone] [facility] Encounter for dental exam and cleaning w/o abnormal findings 3 Laury Jensen. [address], [place], [address] , [place]. tel:[phone] Referring Provider: Camila Schaeffer, [address] [place], [address] . tel:[phone] Family History Family Member Type Diagnosis Age At Onset No Information Payers Payer name Insurance type Covered libertarian ID Jing mccloud(s) D Medicaid [id number] Social History Type Description Quantity Date Captured [...]
[2025-02-23 04:16] VITALS: BP 134/72; PULSE 60; RESP 18; TEMP 36.7; O2SAT 97
--- OUTSIDE RECORDS SUMMARY | 2025-02-23 04:29 | XMS_ITS | Encounter Summary ---
Author Organization [facility] Address 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 Gender Identity Not on file Sexual Orientation Not on file documented as of this encounter Plan of Treatment Upcoming Encounters Date Type Department Care Team (Late Contact Info) Description 03/23/2025 10:00 AM CDT Appointment [facility] Laboratory Services [address] [facility] [address] [place] [address] Rashmi Dumont MD [address] [facility] [address] [place] [address] 03/23/2025 11:00 AM CDT Office Visit [facility] Hematology [place] [address] [facility] [address] [place] [address] Rashmi Dumont MD [address] [facility] [address] [place] [address] 03/23/2025 2:00 PM CDT Appointment [facility] Oncology [facility] [address] [facility] [address] [place] [address] [place] [address] 05/03/2025 1:00 PM CDT Office Visit [facility] Ear Nose and Throat Head Neck S[facility] [address] [place] [address] Estela Manriquez, FINGER BUFFS ASSEMBLER [address] [place] [address] [place] [address] documented as of this encounter Procedures Procedure Name Priority Date/Time Associated Diagnosis Comments CBC WITH DIFFERENTIAL Routine 05/25/2024 8:00 AM CDT COMPREHENSIVE METABOLIC PANEL Routine 05/25/2024 8:00 AM CDT documented in this encounter Results * (ABNORMAL) CBC WITH DIFFERENTIAL (05/25/2024 8:00 AM CDT) [facility] WBC 5.5 4.8 - 10.8 K/uL 05/25/2024 9:27 AM CDT [facility] LABORATORY SERVICES - [place] RBC 3.77(L) 4.20 - 5.40 M/uL 05/25/2024 9:27 AM [facility] HEMOGLOBIN 11.6(L) 12.0 - 16.0 g/dL 05/25/2024 9:27 AM [facility] HEMATOCRIT 35.9(L) 36.0 - 46.0 % 05/25/2024 9:27 AM [facility] MCV 95.2 84.0 - 103.0 fL 05/25/2024 9:27 AM [facility] MCH 30.8 27.0 - 34.0 pg 05/25/2024 9:27 AM [facility] MCHC 32.3 30.0 - 35.0 g/dL 05/25/2024 9:27 AM [facility] RDW 13.7 11.0 - 14.5 % 05/25/2024 9:27 AM [facility] RDW-STDEV 47.6 37.0 - 54.0 fL 05/25/2024 9:27 AM [facility] PLATELETS 196 140 - 440 K/uL 05/25/2024 9:27 AM [facility] MPV 10.1 8.9 - 12.8 fL 05/25/2024 9:27 AM [facility] NEUTROPHILS 68 42 - 75 % 05/25/2024 9:27 AM [facility] LYMPHOCYTES 23(L) 24 - 44 % 05/25/2024 9:27 AM [facility] MONOCYTES 8 2 - 10 % 05/25/2024 9:27 AM [facility] EOSINOPHILS 1 0 - 7 % 05/25/2024 9:27 AM [facility] BASOPHILS 0 0 - 1 % 05/25/2024 9:27 AM [facility] IMMATURE GRANULOCYTES 0 0 - 2 % 05/25/2024 9:27 AM [facility] NEUTROPHIL ABSOLUTE 3.72 2.00 - 8.00 K/uL 05/25/2024 9:27 AM [facility] LYMPHOCYTE ABSOLUTE 1.24 1.20 - 4.00 K/uL 05/25/2024 9:27 AM CDT [facility] MONOCYTE ABSOLUTE 0.42 0.10 - 0.60 K/uL 05/25/2024 9:27 AM CDT [facility] EOSINOPHIL ABSOLUTE 0.04 0.00 - 0.70 K/uL 05/25/2024 9:27 AM CDT [facility] BASOPHILS ABSOLUTE 0.02 0.00 - 0.20 K/uL 05/25/2024 9:27 AM CDT [facility] IMMATURE GRANULOCYTES ABSOLUTE 0.02 0.00 - 0.10 K/uL 05/25/2024 9:27 AM [facility] Blood Collection / Unknown 05/25/2024 8:00 AM CDT 05/25/2024 9:21 AM CDT Henrik Johnson DO HEMATOLOGY ORDERABLES Final Result Performing Organization Address City/State/[facility] Co de Phone Number [facility] CLIA # [id number] Count includes the [facility] [address] * (ABNORMAL) COMPREHENSIVE METABOLIC PANEL (05/25/2024 8:00 AM CDT) SODIUM 143 136 - 145 mmol/L 05/25/2024 9:54 AM T [facility] POTASSIUM 4.0 3.5 - 5.1 mmol/L 05/25/2024 9:54 AM T [facility] CHLORIDE 105 98 - 107 mmol/L 05/25/2024 9:54 AM CDT [facility] CO2 30(H) 22 - 29 mmol/L 05/25/2024 9:54 AM T [facility] CALCIUM 8.8 8.6 - 10.0 mg/dL 05/25/2024 9:54 AM T [facility] BUN 8 6 - 20 mg/dL 05/25/2024 9:54 AM [facility] CREATININE 0.82 0.51 - 0.95 mg/dL 05/25/2024 9:54 AM [facility] GLUCOSE 131(H) 74 - 99 mg/dL 05/25/2024 9:54 AM [facility] TOTAL PROTEIN 6.1(L) 6.4 - 8.3 g/dL 05/25/2024 9:54 AM [facility] ALBUMIN 2.9(L) 3.5 - 5.2 g/dL 05/25/2024 9:54 AM [facility] BILIRUBIN TOTAL 0.2 0.2 - 1.0 mg/dL 05/25/2024 9:54 AM [facility] ALKALINE PHOSPHATASE 64 35 - 104 U/L 05/25/2024 9:54 AM [facility] AST 29 10 - 35 U/L 05/25/2024 9:54 AM [facility] ALT 25 <=35 U/L 05/25/2024 9:54 AM [facility] GFR >60 >=60 mL/min/1.7 3 sq meter 05/25/2024 9:54 AM [facility] Comment:eGFR calculated with 2020 CKD-EPI equation. Vegetarian diet, extremely high or low muscle mass, and may affect results. Cystatin C with Glomerular Filtration Rate is a suitable alternative for these patients. ANION GAP 8(L) 9 - 20 mmol/L 05/25/2024 9:54 AM [facility] Blood Collection / Unknown 05/25/2024 8:00 AM CDT 05/25/2024 9:21 AM T us Henrik Johnson DO CHEMISTRY ORDERABLES Final R esult [facility] CLIA # [id number] Count includes the [facility] [address] documented in this encounter Visit Diagnoses Not on filedocumented in this encounter Additional Health Concerns Infection Onset Date Last Indicated Resolved Time R/O Respiratory 09/13/2024 09/13/2024 09/13/2024 1 0:56 PM SUPERVISOR WOUND Respiratory Syncytial Virus (RSV) 09/14/2024 025 10/12/2024 1:16 AM SUPERVISOR WOUND Assessment Noted Time PHQ-9 Depression Total Score: 1 04/20/20 24 11:16 PM CDT documented as of this encounter Care Teams Service Center Supervisor Relationship Specialty Start Date End Date Anu Thompson DO [address] [place] [address] PCP - General Family Practice 07/21/23 09/17/24 documented as of this encounter
--- OUTSIDE RECORDS SUMMARY | 2025-02-23 04:29 | XMS_ITS | Encounter Summary ---
Author Organization [facility] Address 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 Gender Identity Not on file Sexual Orientation Not on file documented as of this encounter Plan of Treatment Upcoming Encounters Date Type Department Care Team (Late st Contact Info) Description 03/23/2025 10:00 AM CDT Appointment [facility] Laboratory Services [address] [place] [address] [place] [phone] Rashmi Dumont MD S [facility] [address] [place] [address] 03/23/2025 11:00 AM CDT Office Visit [facility] Cancer and Hematology [address] [place] [address] [place] [address] Rashmi Dumont MD S [facility] [address] [place] [address] 03/23/2025 2:00 PM CDT Appointment [facility] Radiation Oncology Cancer [place] [facility] [address] [place] [address] [place] [address] [place] [address] 05/03/2025 1:00 PM CDT Office Visit [facility] Ear Nose and Throat Head Neck SGF [address] [place] [address] Estela Manriquez FNP [address] [place] [address] [place] [address] documented as of this encounter Visit Diagnoses Diagnosis 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
--- OUTSIDE RECORDS SUMMARY | 2025-02-23 04:29 | XMS_ITS ---
Author Organization [facility] Address [address] [place] [address] Phone Care Team Providers Care Airbrush Artist Technical Name Role Phone Unavailable Primary Care Provider [...]
--- OUTSIDE RECORDS SUMMARY | 2025-02-23 04:29 | XMS_ITS | Clinical Summary ---
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
--- OUTSIDE RECORDS SUMMARY | 2025-02-23 04:29 | XMS_ITS | Clinical Summary ---
Author Organization Evelyn [facility]au[facility] Address [address] [place] [address] Phone Care Team Providers Care Piano Machine Operator Name Role Phone Unavailable Primary [...] 05/26/20 24 Active naloxone (NARCAN) 4 mg/spray [place], Non-Aerosol EMERGENCY USE ONLY: Administer 1 spray (4 mg) in one nostril one time. May repeat in alternating nostrils every 2-3 min until responsive or EMS arrives. 2 Each 3 5 5:11 PM PRODUCTION 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 MANAGER 09/28/19 25 Active trach suppliesIndicat ions:Vocal cord [...] Max Daily Amount: 6 Tablets 60 Tablet 02/23/20 25 Active lidocaine-prilo maranda (EMLA) 2.5-2.5 % [...] Tablets 60 Tablet 02/03/20 25 2024 Discontinued HYDROcodone-eliezer taminophen (NORCO) 10-325 mg TabletIndicatio ns:Laryngeal squamous cell carcinoma (CMS/HCC) Take 1 Tablet by mouth every 4 hours as needed for Pain, Moderate. Max Daily Amount: 6 Tablets 60 Tablet 02/13/20 25 2024 Discontinued Active Problems Problem Noted [...] Encounters Date Type Department Care Team Description 02/22/2025 Orders Only [facility] [address] [phone] Karla Goldberg MD Laryngeal squamous cell carcinoma ([facility]/HCC) 02/22/2025 Refill [facility] [address] [phone] Karla Goldberg MD Laryngeal squamous cell carcinoma ([facility]/HCC) 02/12/2025 Orders Only [facility] [address] [phone] Karla Goldberg MD Laryngeal squamous cell carcinoma ([facility]) 02/07/2025 External Device Data STL ABSTRACTION Provider, Abstract 02/02/2025 Orders Only [facility] [address] [place] [phone] Karla Goldberg MD Laryngeal squamous cell carcinoma ([facility]/HCC) 01/30/2025 11:00 AM CDT Office Visit [facility] Ear Nose and Throat Head Neck [facility] [address] [place] [address] Estela Manriquez FNP Hx of laryngeal cancer (Primary Dx); History of radiation therapy; History of chemotherapy; Tracheostomy status (CMS/HCC) 01/26/2025 Telephone [facility] [address] [place] [place] [address] Jacque Fam, [facility] Information (Transportation Issues) 01/25/2025 Orders Only [facility] [address] [place] [phone] Grady Michelle MD Laryngeal squamous cell carcinoma ([facility]/HCC) 01/16/2025 Orders Only [facility] [address] [place] [phone] Karla Goldberg MD Laryngeal squamous cell carcinoma ([facility]/HCC) 01/04/2025 Orders Only [facility] [address] [place] [address] [address] [place] [phone] Karla Goldberg MD Laryngeal squamous cell carcinoma ([facility]/HCC) 01/01/2025 External Device Data STL ABSTRACTION [...] STL ABSTRACTION Provider, Abstract 12/25/2024 Orders Only [facility] [address] [place] [phone] Karla Goldberg MD Laryngeal squamous cell carcinoma (CMS/HCC) 12/25/2024 External Device Data STL ABSTRACTION Provider, [...] - 12/14/2024 11:59 PM CDT Hospital Encounter [facility] [address] [facility] [place] [phone] Karla Goldberg MD Discharge Disposition: Home or Self Care 12/14/2024 11:20 AM CDT Office Visit [facility] [place] [address] [place] [phone] Rashmi Dumont MD Laryngeal squamous cell carcinoma (CMS/HCC) 12/14/2024 9:54 AM CDT - 12/14/2024 11:59 PM CDT Hospital Encounter [facility] Laboratory Services [address] [place] [phone] Rashmi Dumont MD Discharge Disposition: Home or Self Care 12/14/2024 Chart Note [facility] [address] [facility] [place] [phone] Cristel, Jacque S, EXTENSION SUPERVISOR Cancer (Social Work Navigation) 12/14/2024 Chart Note [facility] [address] [place] [address] [place] [phone] Dian Lea RN 12/14/2024 External Device Data STL ABSTRACTION Provider, Abstract 12/13/2024 External Device Data STL ABSTRACTION Provider, Abstract 12/12/2024 External Device Data STL ABSTRACTION Provider, Abstract 12/12/2024 External Device Data STL ABSTRACTION Provider, Abstract 12/11/2024 12:41 PM CDT - 12/11/2024 11:59 PM CDT Hospital Encounter [address] [place] [phone] Abigail Santos, GUY Discharge Disposition: Home or Self Care 12/11/2024 Orders Only [facility] [address] [place] [address] 10 [place] [phone] Karla Goldberg MD Laryngeal squamous cell carcinoma (CMS/HCC) 12/11/2024 External Device Data STL ABSTRACTION Provider, Abstract 12/10/2024 External Device Data STL ABSTRACTION Provider, Abstract 12/09/2024 External Device Data STL ABSTRACTION Provider, Abstract 12/08/2024 12:28 PM CDT - 12/08/2024 11:59 PM CDT Hospital Encounter [facility] [address] [place] [phone] Abigail Santos FNP Discharge Disposition: Home or Self Care 12/08/2024 Telephone [facility] [address] [place] [address] [place] [address] Jacque Fam, EXTENSION SUPERVISOR Information (Transportation Issues) 12/08/2024 External Device Data STL ABSTRACTION Provider, Abstract 12/07/2024 1:28 PM CDT - 12/07/2024 11:59 PM CDT Hospital Encounter [address] [place] [phone] Karla Goldberg MD Discharge Disposition: Home or Self Care 12/07/2024 Orders Only [facility] [address] [facility] 2 [place] [address] Abigail Santos, GUY Chemotherapy induced neutropenia (Primary Dx) 12/07/2024 Telephone [facility] [address] [place] [address] 2 [place] [address] Karla Saldana, DANICA inf2 for neupogen 12/07/2024 Chart Note [facility] [address] [place] [address] [place] [address] Dian Lea RN 12/07/2024 External Device Data STL ABSTRACTION Provider, Abstract 12/06/2024 1:03 PM CDT - 12/06/2024 11:59 PM CDT Hospital Encounter [facility] Radiation Oncology [facility] [address] [place] [address] 10 [place] [address] Karla Goldberg MD Discharge Disposition: Home or Self Care 12/06/2024 11:30 AM CDT Office Visit [facility] [address] [address] Rashmi Dumont MD Grogan, Susan K, WINDMILL MECHANIC Laryngeal squamous cell carcinoma (CMS/HCC) (Primary Dx); PEG (percutaneous endoscopic gastrostomy) status (CMS/HCC); Tracheostomy in place (CMS/HCC); Stage 3a chronic kidney disease (CMS/HCC); Anxiety; Cancer related pain; Chemotherapy-induced neutropenia; S/P radiation therapy < 4 weeks ago; Protein-calorie malnutrition, severe 12/06/2024 10:59 AM CDT - 12/06/2024 11:59 PM CDT Hospital Encounter [facility] Laboratory Services [address] [facility] 2 [place] [address] Rashmi Dumont MD Discharge Disposition: Home or Self Care 12/06/2024 Chart Note [facility] [address] [place] [address] Dian Lea RN 12/06/[address] [address] Lisette Shukla MD Laryngeal squamous cell carcinoma (CMS/HCC) 12/06/2024 Orders Only [facility] [address] [place] [phone] Abigail Santos, WINDMILL MECHANIC Laryngeal squamous cell carcinoma (CMS/HCC) (Primary Dx) 12/06/2024 External Device Data STL ABSTRACTION Provider, Abstract 12/05/2024 External Device Data STL ABSTRACTION Provider, Abstract 12/04/2024 1:35 PM CDT - 12/04/2024 11:59 PM CDT Hospital Encounter [address] [phone] Karla Goldberg MD Discharge Disposition: Home or Self Care 12/04/2024 Chart Note [address] [place] [address] Jacque Fam, EXTENSION SUPERVISOR Cancer 12/04/2024 Chart Note [address] [address] 12/04/2024 External Device Data STL ABSTRACTION Provider, Abstract 12/03/2024 External Device Data STL ABSTRACTION Provider, Abstract 12/02/2024 External Device Data STL ABSTRACTION Provider, Abstract 12/01/2024 External Device Data STL ABSTRACTION Provider, Abstract 11/30/2024 1:28 PM CDT - 11/30/2024 11:59 PM CDT Hospital Encounter [address] [phone] Karla Goldberg MD Discharge Disposition: Home or Self Care 11/30/2024 External Device Data STL ABSTRACTION Provider, Abstract 11/29/2024 1:17 PM CDT - 11/29/2024 11:59 PM CDT Hospital Encounter [address] [phone] Karla Goldberg MD Discharge Disposition: Home or Self Care 11/29/2024 Chart Note [address] [place] [address] Dian Lea, DANICA 11/29/2024 Orders Only [address] [phone] Rashmi Dumont MD Laryngeal squamous cell carcinoma (CMS/HCC) (Primary Dx) 11/29/2024 Chart Note [address] [phone] 11/29/2024 External Device Data STL ABSTRACTION Provider, Abstract 11/28/[address] [place] [phone] Dian Lea, RN Nurse Navigation 11/28/2024 External Device Data STL ABSTRACTION Provider, Abstract 11/27/2024 3:43 PM CDT - 11/27/2024 11:59 PM CDT Hospital Encounter [address] [phone] Karla Goldberg MD Discharge Disposition: Home or Self Care 11/27/2024 1:30 PM CDT Office Visit [address] [phone] Rashmi Dumont MD LedlFelipa NP Laryngeal squamous cell carcinoma (CMS/HCC) (Primary Dx); PEG (percutaneous endoscopic gastrostomy) status (CMS/HCC); Tracheostomy in place ([facility]); Stage 3a chronic kidney disease ([facility]); Cancer related pain 11/27/2024 12:37 PM CDT - 11/27/2024 11:59 PM CDT Hospital Encounter [facility] [address] [place] [address] Rashmi Dumont MD [facility] Oncology, Infusion 11 Discharge Disposition: Home or Self Care 11/27/2024 10:53 AM CDT - 11/27/2024 11:59 PM CDT Hospital Encounter [facility] Laboratory Services [address] [place] [address] Rashmi Dumont MD Discharge Disposition: Home or Self Care 11/27/2024 Telephone [facility] [place] [address] [facility] 2 [place] [address] Rashmi Dumont MD appt 11/27/2024 External Device Data STL ABSTRACTION Provider, Abstract 11/26/2024 External Device Data STL ABSTRACTION Provider, Abstract 11/25/2024 External Device Data STL ABSTRACTION Provider, Abstract 11/24/2024 1:22 PM CDT - 11/24/2024 11:59 PM CDT Hospital Encounter [facility] [address] [facility] [address] [place] [address] Karla Goldberg MD Discharge Disposition: Home or Self Care 11/24/2024 Chart Note [facility] [place] [address] [place] [address] 11/24/2024 External Device Data [...] on file Legal Sex Female 1:37 AM PRODUCTION 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 Gender Identity Not on file Sexual [...] Info) Description 03/23/2025 10:00 AM CDT Appointment [facility] [address] [facility] 2 [place] [address] Rashmi Dumont MD [address] [employer] [address] [place] [address] 03/23/2025 11:00 AM CDT Office Visit [facility] [place] [address] [facility] 2 [place] [address] Rashmi Dumont MD [address] [facility] [address] [place] [address] 03/23/2025 2:00 PM CDT Appointment [facility] [address] [place] [address] Karla Goldberg MD [address]54 [place] [address] 05/03/2025 1:00 PM CDT Office Visit [facility] Ear Nose and Throat Head Neck [facility] [address] [place] [address] Estela Manriquez, GUY [address] [place] [address] Health Maintenance Due Date Last Done Comments DTAP/TDAP/TD VACCINES (1 - Tdap) 1992 HEPATITIS B VACCINES (1 of 3 - 19+ 3-dose series) 04/23 Preventative Visit-Managed Medicaid 1992 ZOSTER VACCINE (1 of 2) 1992 HPV/Cotest (21-29) 1994 CERVICAL CANCER SCREENING 2003 HPV/Cotest (30-65) 2003 PAP SMEAR 2003 BREAST CANCER SCREENING 2013 COLORECTAL SCREENING 2018 Colorectal Cancer Screening 2018 FIT-DNA Q 3 years 2018 FIT/FOBT Q 1 year 2018 Flex Sig/CT Colonography Q 5 years 2018 INFLUENZA VACCINE (#1) 2025 07/21/2023 Pre-Diabetes and Diabetes Screening 01/08/202701/08 Medical Devices Implanted Type Area Service Center Coordinator Device Identifier Shelf Expiration Date Model / Serial / Lot Port Pwrprt Clearvue Slim 8fr [id number] - [id number] Implanted:Qty: 1 on 11/02/2024 by Yanira Quesada MD at [facility] Port Right: Chest BARD SKYLER VASC [id number] 10/20/2025 [id number] / / [id number] Procedures Procedure Name Priority Date/Time Associated Diagnosis Comments AZ LARYNGOSCOPY FLEXIBLE DIAGNOSTIC Routine 01/30/2025 11:33 AM [...] Recently Relevant to Health Maintenance Results * AZ LARYNGOSCOPY FLEXIBLE DIAGNOSTIC (01/30/2025 11:33 AM CDT) [...] to confirm trach was in correct place. Estela Manriquez WINDMILL MECHANIC PROCEDURE/MINOR SURGI MADISYN ORDERABLES Final Result * [...] 1.20 - 4.00 K/uL 12/14/2024 11:46 AM CDT [facility] [place] MONOCYTES ABSOLUTE 0.56 0.10 - 0.60 K/uL 12/14/2024 11:46 AM CDT [facility] [place] EOSINOPHILS ABSOLUTE 0.07 0.00 - 0.70 K/uL 12/14/2024 11:46 AM CDT [facility] [place] TOTAL CELLS COUNTED IN DIFF 100 12/14/2024 11:46 AM CDT [facility] [place] PLATELET EST. Adequate 12/14/2024 11:46 AM CDT [facility] [place] RBC MORPHOLOGY Normal 12/14/2024 11:46 AM CDT [facility] [place] TOXIC GRANULATION 1+ 025 11:46 AM CDT [facility] [place] Blood Venipuncture / Unknown 12/14/2024 10:21 AM CDT 12/14/2024 10:53 AM CDT Narrative [facility] [place] - 12/14/2024 11:46 AM CDT Adjusted for nucleated RBC's us Rashmi Dumont MD HEMATOLOGY ORDERABLES COM Final Result [facility] [place] CLIA# [id number] [address] [place] [address] * (ABNORMAL) CBC WITH DIFFERENTIAL (12/14/2024 10:21 AM CDT) Only the most recent of3 resultswithin the time period is included. WBC 7.1 4.8 - 10.8 K/uL 12/14/2024 11:08 AM CDT [facility] [place] RBC 3.39(L) 4.20 - 5.40 M/uL 12/14/2024 11:08 AM CDT [facility] [place] HEMOGLOBIN 10.8(L) 12.0 - 16.0 g/dL 12/14/2024 11:08 AM CDT [facility] [place] HEMATOCRIT 32.6(L) 36.0 - 46.0 % 12/14/2024 11:08 AM CDT [facility] [place] MCV 96.2 82.0 - 100.0 fL 12/14/2024 11:08 AM CDT [facility] [place] MCH 31.9 27.0 - 34.0 pg 12/14/2024 11:08 AM CDT [facility] [place] MCHC 33.1 31.0 - 37.0 g/dL 12/14/2024 11:08 AM CDT [facility] [place] RDW 15.9(H) 11.0 - 14.5 % 12/14/2024 11:08 AM T [facility] [place] RDW-STDEV 52.6 37.0 - 54.0 fL 12/14/2024 11:08 AM T [facility] [place] PLATELETS 325 140 - 440 K/uL 12/14/2024 11:08 AM T [facility] [place] MPV 9.8 8.9 - 12.8 fL 12/14/2024 11:08 AM CDT [facility] [place] Blood Venipuncture / Unknown 12/14/2024 10:21 AM CDT 12/14/2024 10:53 AM CDT us Rashmi Dumont MD HEMATOLOGY ORDERABLES Fin al Result [id number] [address] [place] [address] * (ABNORMAL) COMPREHENSIVE METABOLIC PANEL (12/14/2024 10:21 AM CDT) Only the most recent of3 resultswithin the time period is included. SODIUM 140 136 - 145 mmol/L 12/14/2024 11:32 AM T [facility] [place] POTASSIUM 3.5 3.5 - 5.1 mmol/L 12/14/2024 11:32 AM CDT [facility] [place] CHLORIDE 103 98 - 107 mmol/L 12/14/2024 11:32 AM [facility] [place] CO2 25 22 - 29 mmol/L 12/14/2024 11:32 AM [facility] [place] CALCIUM 9.2 8.6 - 10.0 mg/dL 12/14/2024 11:32 AM [facility] [place] BUN 22(H) 6 - 20 mg/dL 12/14/2024 11:32 AM [facility] [place] CREATININE 1.67(H) 0.51 - 0.95 mg/dL 12/14/2024 11:32 AM [facility] [place] GLUCOSE 98 74 - 99 mg/dL 12/14/2024 11:32 AM [facility] [place] TOTAL PROTEIN 6.6 6.4 - 8.3 g/dL 12/14/2024 11:32 AM [facility] [place] ALBUMIN 3.4(L) 3.5 - 5.2 g/dL 12/14/2024 [...] [facility] [place] ALT 15 <=33 U/L 12/14/2024 11:32 AM [facility] [place] GFR 37(L) >=60 mL/min/1.7 3 sq meter 12/14/2024 11:32 AM [facility] [place] Comment:eGFR calculated with 2020 CKD-EPI equation. Vegetarian diet, extremely high or low muscle mass, and may affect results. Cystatin C with Glomerular Filtration Rate is a suitable alternative for these patients. ANION GAP 12 9 - 20 mmol/L 12/14/2024 11:32 AM [facility] [place] Blood Venipuncture / Unknown 12/14/2024 10:21 AM CDT 12/14/2024 10:54 AM CDT Rashmi Dumont MD CHEMISTRY ORDERABLES Yareli l Result Performing Organization Address City/[facility]/ZIP Co de Phone Number [facility] CLIA# [id number] [address] [place] [address] * (ABNORMAL) MAGNESIUM LEVEL (11/27/2024 11:02 AM CDT) Pathologist [facility] MAGNESIUM 1.2(L) 1.6 - 2.6 mg/dL 11/27/2024 11:31 AM CDT [facility] Blood Venipuncture / Unknown 11/27/2024 11:02 AM CDT 11/27/2024 11:07 AM CDT us Rashmi Dumont MD CHEMISTRY ORDERABLES Yareli l Result Performing Organization Address [facility] Co de Phone Number [facility] CLIA# [id number] [address] [place] [address] * HEMOGLOBIN A1C (01/09/2024 4:16 PM CDT) Pathologist [facility] HEMOGLOBIN A1C 5.5 <=5.6 % 01/09/2024 5:13 PM CDT [facility] EST. AVG GLUCOSE, A1C 111 mg/dL 01/09/2024 5:13 PM CDT [facility] Blood Venipuncture / Unknown 01/09/2024 4:16 PM CDT 01/09/2024 4:20 PM CDT [facility] - 01/09/2024 5:13 PM CDT HGB A1C INTERPRETATION NORMAL: <5.7% PRE-DIABETES: 5.7 - 6.4% DIABETES: 6.5% OR GREATER us Liam Francisco MD CHEMISTRY ORDERABLES Final Resu lt Performing Organization Address City/[facility]/ZIP Co de Phone Number [facility] CLIA # [id number] [address] [place] [id number] from Last 3 Months or Most Recently Relevant to Health Maintenance Insurance [place] Medicaid Advance Directives For more information, please contact: [phone] * Full Code (Latest Code Status on File) Date Activated Date Inactivated Comments 09/14/2024 12:03 PM 09/28/2024 7:37 PM * Default Full Code - Needs Discussion Date Activated Date Inactivated Comments 09/13/2024 8:56 PM 09/14/2024 12:03 PM * Full Code Date Activated Date Inactivated Comments 04/20/2024 11:37 PM 04/22/2024 6:20 PM
--- OUTSIDE RECORDS SUMMARY | 2025-02-23 04:29 | XMS_ITS | Patient Health Record ---
Author Organization [facility] Address [address] [place], [place] [address] Care Team Providers Care Hall Tender Name Role Phone Jhonatan Valdez Primary Care Provider Giovanna Villa MD, Sebastien Unavailable [phone] Reason For Referral No Information Medications Medication [...] Displacement of lumbar intervertebral disc without myelopathy (44721888) Lumbar (w/out myelopathy) intervertebral disc disorder (722.10) Active confirmed Problem Lumbar spinal stenosis (80202042) Lumbar spinal stenosis (724.02) Active confirmed Problem Spasm (02833615) Muscle spasm (728.85) Active confirmed Problem Sleep dysfunction with sleep stage disturbance (403384665) Dysfunctions associated with sleep stages or arousal from sleep (780.56) Active confirmed Problem Low back pain (133124464) Low back pain (724.2) Active confirmed Problem Lumbosacral spondylosis without myelopathy (55428480) Lumbosacral spondylosis without myelopathy (721.3) Active confirmed Problem Long-term drug therapy (613284246) LONG-TERM USE MEDS NEC (V58.69) Active confirmed R/O substance abuse Problem Solitary sacroiliitis (728426799) Sacroiliitis (720.2) Active confirmed Plan Of Treatment [...]
--- OUTSIDE RECORDS SUMMARY | 2025-02-23 04:29 | XMS_ITS | Encounter Summary ---
Author Organization [facility] Address 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 [address] [place] [address] 03/23/2025 11:00 AM CDT Office Visit [facility] Cancer and Hematology [place] [address] [facility] [address] [place] [address] Rashmi Dumont MD [address] [facility] [address] [place] [address] 03/23/2025 2:00 PM CDT Appointment [facility] [address] [facility] [address] [place] [address] [place] [address] 05/03/2025 1:00 PM CDT Office Visit [facility] Nose and Throat Head Neck [facility] [address] [place] [address] Estela Manriquez, SUPERVISOR ELEMENTARY EDUCATION [address] [place] [address] [place] [address] documented as of this encounter Procedures Procedure Name Priority Date/Time Associated Diagnosis Comments CBC WITH DIFFERENTIAL Routine 05/23/2024 3:00 AM CDT COMPREHENSIVE METABOLIC PANEL Routine 05/23/2024 3:00 AM CDT documented in this encounter Results * (ABNORMAL) CBC WITH DIFFERENTIAL (05/23/2024 3:00 AM CDT) [facility] WBC 5.2 4.8 - 10.8 K/uL 05/23/2024 7:41 AM CDT [facility] [place] RBC 3.18(L) 4.20 - 5.40 M/uL 05/23/2024 7:41 AM [facility] HEMOGLOBIN 9.7(L) 12.0 - 16.0 g/dL 05/23/2024 7:41 AM [facility] HEMATOCRIT 31.1(L) 36.0 - 46.0 % 05/23/2024 7:41 AM [facility] MCV 97.8 84.0 - 103.0 fL 05/23/2024 7:41 AM [facility] MCH 30.5 27.0 - 34.0 pg 05/23/2024 7:41 AM [facility] MCHC 31.2 30.0 - 35.0 g/dL 05/23/2024 7:41 AM [facility] RDW 13.1 11.0 - 14.5 % 05/23/2024 7:41 AM [facility] RDW-STDEV 46.8 37.0 - 54.0 fL 05/23/2024 7:41 AM [facility] PLATELETS 157 140 - 440 K/uL 05/23/2024 7:41 AM [facility] MPV 10.6 8.9 - 12.8 fL 05/23/2024 7:41 AM [facility] NEUTROPHILS 72 42 - 75 % 05/23/2024 7:41 AM [facility] LYMPHOCYTES 19(L) 24 - 44 % 05/23/2024 7:41 AM [facility] MONOCYTES 8 2 - 10 % 05/23/2024 7:41 AM [facility] EOSINOPHILS 1 0 - 7 % 05/23/2024 7:41 AM [facility] BASOPHILS 0 0 - 1 % 05/23/2024 7:41 AM [facility] IMMATURE GRANULOCYTES 0 0 - 2 % 05/23/2024 7:41 AM [facility] NEUTROPHIL ABSOLUTE 3.76 2.00 - 8.00 K/uL 05/23/2024 7:41 AM [facility] LYMPHOCYTE ABSOLUTE 0.99(L) 1.20 - 4.00 K/uL 05/23/2024 7:41 AM CDT [facility] MONOCYTE ABSOLUTE 0.40 0.10 - 0.60 K/uL 05/23/2024 7:41 AM CDT [facility] EOSINOPHIL ABSOLUTE 0.03 0.00 - 0.70 K/uL 05/23/2024 7:41 AM CDT [facility] BASOPHILS ABSOLUTE 0.02 0.00 - 0.20 K/uL 05/23/2024 7:41 AM CDT [facility] IMMATURE GRANULOCYTES ABSOLUTE 0.01 0.00 - 0.10 K/uL 05/23/2024 7:41 AM [facility] Blood Collection / Unknown 05/23/2024 3:00 AM CDT 05/23/2024 7:41 AM CDT Henrik Johnson DO HEMATOLOGY ORDERABLES Final Result [facility] CLIA # [id number] [address] [place] [id number] * (ABNORMAL) COMPREHENSIVE METABOLIC PANEL (05/23/2024 3:00 AM CDT) SODIUM 140 136 - 145 mmol/L 05/23/2024 8:09 AM T [facility] POTASSIUM 3.7 3.5 - 5.1 mmol/L 05/23/2024 8:09 AM [facility] CHLORIDE 101 98 - 107 mmol/L 05/23/2024 8:09 AM T [facility] CO2 32(H) 22 - 29 mmol/L 05/23/2024 8:09 AM T [facility] CALCIUM 8.9 8.6 - 10.0 mg/dL 05/23/2024 8:09 AM T [facility] BUN 9 6 - 20 mg/dL 05/23/2024 8:09 AM [facility] CREATININE 0.86 0.51 - 0.95 mg/dL 05/23/2024 8:09 AM [facility] GLUCOSE 95 74 - 99 mg/dL 05/23/2024 8:09 AM [facility] TOTAL PROTEIN 5.5(L) 6.4 - 8.3 g/dL 05/23/2024 8:09 AM [facility] ALBUMIN 2.6(L) 3.5 - 5.2 g/dL 05/23/2024 8:09 AM [facility] BILIRUBIN TOTAL 0.5 0.2 - 1.0 mg/dL 05/23/2024 8:09 AM [facility] ALKALINE PHOSPHATASE 50 35 - 104 U/L 05/23/2024 8:09 AM [facility] AST 28 10 - 35 U/L 05/23/2024 8:09 AM [facility] ALT 20 <=35 U/L 05/23/2024 8:09 AM [facility] GFR >60 >=60 mL/min/1.7 3 sq meter 05/23/2024 8:09 AM [facility] Comment:eGFR calculated with 2020 CKD-EPI equation. Vegetarian diet, extremely high or low muscle mass, and may affect results. Cystatin C with Glomerular Filtration Rate is a suitable alternative for these patients. ANION GAP 7(L) 9 - 20 mmol/L 05/23/2024 8:09 AM [facility] Blood Collection / Unknown 05/23/2024 3:00 AM CDT 05/23/2024 7:52 AM T us Henrik Johnson DO CHEMISTRY ORDERABLES Final R esult [facility] CLIA # [id number] [facility] [address] documented in this encounter Visit Diagnoses Not on filedocumented in this encounter Additional Health Concerns Infection Onset Date Last Indicated Resolved Time R/O Respiratory 09/13/2024 09/13/2024 09/13/2024 1 0:56 PM SONOGRAPHY TECHNICIAN Respiratory Syncytial Virus (RSV) 09/14/2024 025 10/12/2024 1:16 AM SONOGRAPHY TECHNICIAN Assessment Noted Time PHQ-9 Depression Total Score: 1 04/20/20 24 11:16 PM CDT documented as of this encounter Care Teams Fbi Special Agent Relationship Specialty Start Date End Date Anu Thompson DO [address] [place] [address] PCP - General Family Practice 07/21/23 09/17/24 documented as of this encounter
--- OUTSIDE RECORDS SUMMARY | 2025-02-23 04:29 | XMS_ITS | Encounter Summary ---
Author Organization [facility] Address 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 Gender Identity Not on file Sexual Orientation Not on file documented as of this encounter Plan of Treatment Upcoming Encounters Date Type Department Care Team (Late st Contact Info) Description 03/23/2025 10:00 AM CDT Appointment [facility] Laboratory Services [address] [facility] 2 [place] [address] Rashmi Dumont MD S [facility] [address] [place] [address] 03/23/2025 11:00 AM CDT Office Visit [facility] Cancer and Hematology [address] [facility] 2 [place] [address] Rashmi Dumont MD S [facility] [address] [place] [address] 03/23/2025 2:00 PM CDT Appointment [facility] Radiation Oncology Cancer [place] [address] [facility] 10 [place] [address] [place] [address] 05/03/2025 1:00 PM CDT Office Visit [facility] Ear Nose and Throat Head Neck SGF [address] [place] [address] Estela Manriquez FNP [address] [address] [place] [address] documented as of this encounter Visit Diagnoses Diagnosis 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
--- OUTSIDE RECORDS SUMMARY | 2025-02-23 04:29 | XMS_ITS | Encounter Summary ---
Author Organization [facility] Address [address] [place] [address] Care Team Providers Care Editorial Cartoonist Name Role Phone Anu Thompson Primary Care Provider Encounter Details Date Type Department Care Team (Late st Contact Info) Description 05/29/[address] 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 Gender Identity Not on file Sexual Orientation Not on file documented as of this encounter Plan of Treatment Upcoming Encounters Date Type Department Care Team (Late Contact Info) Description 03/23/2025 10:00 AM CDT Appointment [facility] Laboratory Services [address] [facility] 2 [place] [address] Rashmi Dumont MD [address] [facility] [address] [place] [address] 03/23/2025 11:00 AM CDT Office Visit [facility] Cancer and Hematology [place] [address] [place] [facility] [address] [place] [address] Rashmi Dumont MD [address] [facility] [address] [place] [address] 03/23/2025 2:00 PM CDT Appointment [facility]iation Oncology Cancer Center [address] [facility] 10 [place] [address] [place] [address] 05/03/2025 1:00 PM CDT Office Visit [facility] Ear Nose and Throat Head Neck SGF [address] [place] [address] Estela Manriquez, NETWORK MANAGEMENT SPECIALIST [address] [place] [address] [place] [address] documented as of this encounter Procedures Procedure Name Priority Date/Time Associated Diagnosis Comments CBC WITH DIFFERENTIAL Routine 05/29/2024 3:00 AM CDT COMPREHENSIVE METABOLIC PANEL Routine 05/29/2024 3:00 AM CDT documented in this encounter Results * (ABNORMAL) CBC WITH DIFFERENTIAL (05/29/2024 3:00 AM CDT) [facility] WBC 5.1 4.8 - 10.8 K/uL 05/29/2024 5:44 AM CDT [facility] [place] RBC 3.90(L) 4.20 - 5.40 M/uL 05/29/2024 5:44 AM [facility] [employer] [facility] HEMOGLOBIN 12.0 12.0 - 16.0 g/dL 05/29/2024 5:44 AM [facility] [employer] [facility] HEMATOCRIT 37.3 36.0 - 46.0 % 05/29/2024 5:44 AM [facility] [employer] [facility] MCV 95.6 84.0 - 103.0 fL 05/29/2024 5:44 AM [facility] [employer] [facility] MCH 30.8 27.0 - 34.0 pg 05/29/2024 5:44 AM [facility] [employer] [facility] MCHC 32.2 30.0 - 35.0 g/dL 05/29/2024 5:44 AM [facility] [employer] [facility] RDW 13.7 11.0 - 14.5 % 05/29/2024 5:44 AM [facility] [employer] [facility] RDW-STDEV 46.7 37.0 - 54.0 fL 05/29/2024 5:44 AM [facility] [employer] [facility] PLATELETS 312 140 - 440 K/uL 05/29/2024 5:44 AM [facility] [employer] [facility] MPV 10.9 8.9 - 12.8 fL 05/29/2024 5:44 AM [facility] [employer] [facility] NEUTROPHILS 59 42 - 75 % 05/29/2024 5:44 AM [facility] [employer] [facility] LYMPHOCYTES 29 24 - 44 % 05/29/2024 5:44 AM [facility] [employer] [facility] MONOCYTES 10 2 - 10 % 05/29/2024 5:44 AM CDT [facility] [employer] [facility] EOSINOPHILS 2 0 - 7 % 05/29/2024 5:44 AM [facility] [employer] [facility] BASOPHILS 1 0 - 1 % 05/29/2024 5:44 AM [facility] [employer] [facility] IMMATURE GRANULOCYTES 1 0 - 2 % 05/29/2024 5:44 AM [facility] [employer] [facility] NEUTROPHIL ABSOLUTE 2.97 2.00 - 8.00 K/uL 05/29/2024 5:44 [facility] LYMPHOCYTE ABSOLUTE 1.44 1.20 - 4.00 K/uL 05/29/2024 5:44 AM CDT [facility] MONOCYTE ABSOLUTE 0.48 0.10 - 0.60 K/uL 05/29/2024 5:44 AM CDT [facility] EOSINOPHIL ABSOLUTE 0.09 0.00 - 0.70 K/uL 05/29/2024 5:44 AM CDT [facility] BASOPHILS ABSOLUTE 0.03 0.00 - 0.20 K/uL 05/29/2024 5:44 AM CDT [facility] IMMATURE GRANULOCYTES ABSOLUTE 0.04 0.00 - 0.10 K/uL 05/29/2024 5:44 AM T [facility] Blood Collection / Unknown 05/29/2024 3:00 AM CDT 05/29/2024 5:36 AM CDT Henrik Johnson DO HEMATOLOGY ORDERABLES Final Result Performing Organization Address City/State/[facility] Co de Phone Number [facility] CLIA # [id number] [facility] [id number] * (ABNORMAL) COMPREHENSIVE METABOLIC PANEL (05/29/2024 3:00 AM CDT) SODIUM 138 136 - 145 mmol/L 05/29/2024 6:23 AM T [facility] POTASSIUM 4.1 3.5 - 5.1 mmol/L 05/29/2024 6:23 AM T [facility] CHLORIDE 98 98 - 107 mmol/L 05/29/2024 6:23 AM T [facility] CO2 28 22 - 29 mmol/L 05/29/2024 6:23 AM T [facility] CALCIUM 9.6 8.6 - 10.0 mg/dL 05/29/2024 6:23 AM T [facility] BUN 18 6 - 20 mg/dL 05/29/2024 6:23 AM T [facility] CREATININE 0.86 0.51 - 0.95 mg/dL 05/29/2024 6:23 AM T [facility] GLUCOSE 146(H) 74 - 99 mg/dL 05/29/2024 6:23 AM [facility] TOTAL PROTEIN 6.4 6.4 - 8.3 g/dL 05/29/2024 6:23 AM [facility] ALBUMIN 3.2(L) 3.5 - 5.2 g/dL 05/29/2024 6:23 AM [facility] BILIRUBIN TOTAL 0.3 0.2 - 1.0 mg/dL 05/29/2024 6:23 AM [facility] ALKALINE PHOSPHATASE 69 35 - 104 U/L 05/29/2024 6:23 AM [facility] AST 41(H) 10 - 35 U/L 05/29/2024 6:23 AM [facility] ALT 38(H) <=35 U/L 05/29/2024 6:23 AM [facility] GFR >60 >=60 mL/min/1.7 3 sq meter 05/29/2024 6:23 AM [facility] Comment:eGFR calculated with 2020 CKD-EPI equation. Vegetarian diet, extremely high or low muscle mass, and may affect results. Cystatin C with Glomerular Filtration Rate is a suitable alternative for these patients. ANION GAP 12 9 - 20 mmol/L 05/29/2024 6:23 AM [facility] Blood Collection / Unknown 05/29/2024 3:00 AM CDT 05/29/2024 5:36 AM CDT us Henrik Johnson DO CHEMISTRY ORDERABLES Final R esult [facility] CLIA # [id number] [facility] [address] documented in this encounter Visit Diagnoses Not on filedocumented in this encounter Additional Health Concerns Infection Onset Date Last Indicated Resolved Time R/O Respiratory 09/13/2024 09/13/2024 09/13/2024 1 0:56 PM RETAIL BRANCH MANAGER Respiratory Syncytial Virus (RSV) 09/14/2024 025 10/12/2024 1:16 AM RETAIL BRANCH MANAGER Assessment Noted Time PHQ-9 Depression Total Score: 1 04/20/20 24 11:16 PM CDT documented as of this encounter Care Teams Editorial Cartoonist Relationship Specialty Start Date End Date Anu Thompson DO [address] [place] [address] PCP - General Family Practice 07/21/23 09/17/24 documented as of this encounter
--- OUTSIDE RECORDS SUMMARY | 2025-02-23 04:29 | XMS_ITS | Encounter Summary ---
Author Organization [facility] Address 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 [place] [address] Rashmi Dumont MD [address] [facility] 1000 [place] [address] 03/23/2025 2:00 PM CDT Appointment [facility] Radiation Oncology Cancer Center [address] [facility] 10 [place] [address] [place] [address] 05/03/2025 1:00 PM CDT Office Visit [facility] Ear Nose and Throat Head Neck S[facility] [address] [place] [address] Estela Manriquez, NETWORK CONSULTANT [address] [place] [address] [place] [address] documented as of this encounter Procedures Procedure Name Priority Date/Time Associated Diagnosis Comments CBC WITH DIFFERENTIAL Routine 06/05/2024 3:40 AM CDT COMPREHENSIVE METABOLIC PANEL Routine 06/05/2024 3:40 AM CDT documented in this encounter Results * (ABNORMAL) CBC WITH DIFFERENTIAL (06/05/2024 3:40 AM CDT) [facility] WBC 7.2 4.8 - 10.8 K/uL 06/05/2024 6:01 AM CDT [facility] LABORATORY SERVICES - [place] RBC 3.98(L) 4.20 - 5.40 M/uL 06/05/2024 6:01 AM [facility] HEMOGLOBIN 12.1 12.0 - 16.0 g/dL 06/05/2024 6:01 AM [facility] HEMATOCRIT 38.6 36.0 - 46.0 % 06/05/2024 6:01 AM [facility] MCV 97.0 84.0 - 103.0 fL 06/05/2024 6:01 AM [facility] MCH 30.4 27.0 - 34.0 pg 06/05/2024 6:01 AM [facility] MCHC 31.3 30.0 - 35.0 g/dL 06/05/2024 6:01 AM [facility] RDW 15.0(H) 11.0 - 14.5 % 06/05/2024 6:01 AM [facility] RDW-STDEV 53.1 37.0 - 54.0 fL 06/05/2024 6:01 AM [facility] PLATELETS 318 140 - 440 K/uL 06/05/2024 6:01 AM [facility] MPV 10.7 8.9 - 12.8 fL 06/05/2024 6:01 AM [facility] NEUTROPHILS 56 42 - 75 % 06/05/2024 6:01 AM [facility] LYMPHOCYTES 33 24 - 44 % 06/05/2024 6:01 AM [facility] MONOCYTES 9 2 - 10 % 06/05/2024 6:01 AM [facility] EOSINOPHILS 2 0 - 7 % 06/05/2024 6:01 AM [facility] BASOPHILS 1 0 - 1 % 06/05/2024 6:01 AM [facility] IMMATURE GRANULOCYTES 1 0 - 2 % 06/05/2024 6:01 AM [facility] NEUTROPHIL ABSOLUTE 4.03 2.00 - 8.00 K/uL 06/05/2024 6:01 AM [facility] LYMPHOCYTE ABSOLUTE 2.35 1.20 - 4.00 K/uL 06/05/2024 6:01 AM CDT [facility] MONOCYTE ABSOLUTE 0.61(H) 0.10 - 0.60 K/uL 06/05/2024 6:01 AM CDT [facility] EOSINOPHIL ABSOLUTE 0.12 0.00 - 0.70 K/uL 06/05/2024 6:01 AM CDT [facility] BASOPHILS ABSOLUTE 0.05 0.00 - 0.20 K/uL 06/05/2024 6:01 AM CDT [facility] IMMATURE GRANULOCYTES ABSOLUTE 0.04 0.00 - 0.10 K/uL 06/05/2024 6:01 AM T [facility] Blood Collection / Unknown 06/05/2024 3:40 AM CDT 06/05/2024 5:53 AM CDT Henrik Johnson DO HEMATOLOGY ORDERABLES Final Result Performing Organization Address City/State/[facility] Co de Phone Number [facility] CLIA # [id number] [facility] [address] * (ABNORMAL) COMPREHENSIVE METABOLIC PANEL (06/05/2024 3:40 AM CDT) SODIUM 140 136 - 145 mmol/L 06/05/2024 6:33 AM T [facility] POTASSIUM 4.8 3.5 - 5.1 mmol/L 06/05/2024 6:33 AM T [facility] CHLORIDE 106 98 - 107 mmol/L 06/05/2024 6:33 AM T [facility] CO2 23 22 - 29 mmol/L 06/05/2024 6:33 AM T [facility] CALCIUM 9.6 8.6 - 10.0 mg/dL 06/05/2024 6:33 AM T [facility] BUN 36(H) 6 - 20 mg/dL 06/05/2024 6:33 AM CDT [facility] CREATININE 1.10(H) 0.51 - 0.95 mg/dL 06/05/2024 6:33 AM [facility] GLUCOSE 85 74 - 99 mg/dL 06/05/2024 6:33 AM [facility] TOTAL PROTEIN 6.4 6.4 - 8.3 g/dL 06/05/2024 6:33 AM [facility] ALBUMIN 3.4(L) 3.5 - 5.2 g/dL 06/05/2024 6:33 AM [facility] BILIRUBIN TOTAL 0.2 0.2 - 1.0 mg/dL 06/05/2024 6:33 AM [facility] ALKALINE PHOSPHATASE 81 35 - 104 U/L 06/05/2024 6:33 AM [facility] AST 35 10 - 35 U/L 06/05/2024 6:33 AM [facility] ALT 35 <=35 U/L 06/05/2024 6:33 AM [facility] GFR >60 >=60 mL/min/1. 73 sq meter 06/05/2024 6:33 AM [facility] Comment:eGFR calculated with 2020 CKD-EPI equation. Vegetarian diet, extremely high or low muscle mass, and may affect results. Cystatin C with Glomerular Filtration Rate is a suitable alternative for these patients. 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
--- NOTE | 2025-02-23 04:31 | W.ED.GENADLT ---
HPI - General Adult General: Chief complaint: General Medical Stated complaint: G tube issues Time Seen by Provider: 02/23/25 04:18 History of Present Illness: Patient noticed she is having some bright red blood coming from around her gastric tube tonight. Related Data Home Medications ?Medication ?Instructions ?Recorded ?Confirmed budesonide 0.5 mg/2 mL suspension 0.5 mg inhalation BID PRN 05/08/24 10/14/24 for nebulization Shortness Of Breath albuterol sulfate 90 mcg/actuation 2 inh inhalation Q4H PRN shortness 08/22/24 10/14/24 aerosol inhaler of breath or wheezing clopidogrel 75 mg tablet (Plavix) 75 mg PO DAILY 08/22/24 10/14/24 hydroxyzine HCl 10 mg tablet 10 mg PO TID PRN Anxiety 08/22/24 10/14/24 ipratropium 0.5 mg-albuterol 3 mg 3 ml inhalation QID PRN Shortness 08/22/24 10/14/24 (2.5 mg base)/3 mL nebulization Of Breath Or Wheezing soln paroxetine HCl 40 mg tablet See Rx Instructions .Route .COMPLEX 08/22/24 10/14/24 alprazolam 0.5 mg tablet 0.5 mg PO DAILY PRN anxiety 10/14/24 10/14/24 hydralazine 50 mg tablet 50 mg PO TID 10/14/24 10/14/24 Held on 10/17/24. Instructions: Resume on 10/31/24. hold until you see primary care hydrocodone 5 mg-acetaminophen 325 1 tab PO Q6H PRN Pain 10/14/24 10/14/24 mg tablet olanzapine 5 mg tablet 5 mg PO QPM 10/14/24 10/14/24 ondansetron 8 mg disintegrating 8 mg PO Q8H PRN Nausea And Vomiting 10/14/24 10/14/24 tablet tramadol 50 mg tablet 50 mg PO TID 10/14/24 10/14/24 Previous Rx's ?Medication ?Instructions ?Recorded aspirin 81 mg tablet,delayed 81 mg PO DAILY #30 tabs 01/15/24 release atorvastatin 40 mg tablet 40 mg PO BEDTIME #90 tabs 02/15/24 metoprolol tartrate 25 mg tablet 25 mg PO BID@0900,2100 #180 tabs 02/15/24 albuterol sulfate 2.5 mg/3 mL 2.5 mg (3 mL) inhalation Q4H PRN 04/12/24 (0.083 %) solution for nebulization shortness of breath or wheezing #90 mL guaifenesin 600 mg tablet, 1,200 mg (2 x 600 mg) PO 08/25/24 extended release 12 hr (Mucinex) BID@0900,2100 #30 tabs prednisone 20 mg tablet 20 mg PO TID #15 tabs 02/22/25 Allergies Allergy/AdvReac Type Severity Reaction Status Date / Time hydromorphone (From Dilaudid) Allergy ADR-Migrain Verified 10/19/24 15:01 e PFSH ED PFSH: Medical History COPD (chronic obstructive pulmonary disease) CKD (chronic kidney disease) Diastolic heart failure Hypertension Coronary artery disease Coronary angiogram from 01/13 showed moderate disease in LCx and LAD?negative on IFR Abnormal stress test Cannabis use disorder, mild, abuse Amphetamine use disorder, severe, dependence Bipolar disorder in full remission Bipolar disorder Social History Smoking and tobacco/nicotine status: current every day tobacco/nicotine user cigarettes Packs smoked per day: 1.5 Years cigarettes smoked: 30 Quit status (tobacco/nicotine): not considering quitting Second hand smoke exposure: Yes Current gender identity: Female Physical Exam GI: OTHER: Gastric tube in place but the compression slide has slid up allowing the tube to move quite a bit. Skin: OTHER: Irritation around the gastric stoma opening from the tube sliding up and down. Scab on there with no active bleeding Course Vital Signs: Vital signs: Vital Signs Temperature 98.1 F 02/23/25 04:16 Pulse Rate 60 02/23/25 04:16 Respiratory Rate 18 02/23/25 04:16 Blood Pressure 134/72 02/23/25 04:16 Pulse Oximetry 97 02/23/25 04:16 Oxygen Delivery Me thod Room Air 02/23/25 04:16 MDM - General Adult Medical Decision Making Patient's gastric tube has loosened and is moving up and down quite a bit, several inches. It is causing some irritation to the skin edges of the stoma. Bandages were replaced and no active bleeding was noted. The gastric tube was fixed that it would not slide. No radiology studies performed this visit Discharge Plan Discharge Patient Disposition: Home Clinical Impression: Complication of feeding tube Condition: Stable Prescriptions: No Action atorvastatin 40 mg tablet 40 mg PO BEDTIME Qty: 90 1RF metoprolol tartrate 25 mg tablet 25 mg PO BID@0900,2100 Qty: 180 1RF hydrocodone-acetaminophen 5-325 mg tablet 1 tab PO Q6H PRN (Reason: Pain) olanzapine 5 mg Tablet 5 mg PO QPM tramadol 50 mg Tablet 50 mg PO TID ondansetron 8 mg Tablet,Disintegrating 8 mg PO Q8H PRN (Reason: Nausea And Vomiting) Rx Instructions: start before Chemo alprazolam 0.5 mg Tablet 0.5 mg PO DAILY PRN (Reason: anxiety) hydralazine 50 mg Tablet 50 mg PO TID aspirin 81 mg Tablet,Delayed Release (Dr/Ec) 81 mg PO DAILY Qty: 30 0RF albuterol sulfate 2.5 mg /3 mL (0.083 %) solution for nebulization 2.5 mg INHALATION Q4H PRN (Reason: shortness of breath or wheezing) Qty: 90 0RF budesonide 0.5 mg/2 mL suspension for nebulization 0.5 mg inhalation BID PRN (Reason: Shortness Of Breath) ipratropium-albuterol 0.5 mg-3 mg(2.5 mg base)/3 mL Solution For Nebulization 3 ml INHALATION QID PRN (Reason: Shortness Of Breath Or Wheezing) clopidogrel [Plavix] 75 mg Tablet 75 mg PO DAILY Rx Instructions: crush 1 tablet and put in gi tube daily paroxetine HCl 40 mg Tablet See Rx Instructions .ROUTE .COMPLEX Rx Instructions: 40 mg orally ;place 1 tab in tube daily hydroxyzine HCl 10 mg Tablet 10 mg PO TID PRN (Reason: Anxiety) albuterol sulfate 90 mcg/actuation HFA aerosol inhaler 2 inh inhalation Q4H PRN (Reason: shortness of breath or wheezing) guaifenesin [Mucinex] 600 mg Tablet Extended Release 12hr 1,200 mg PO BID@0900,2100 Qty: 30 0RF prednisone 20 mg tablet 20 mg PO TID Qty: 15 0RF Rx Instructions: 1 p.o. 3 times daily x3 days, 1 p.o. twice daily x2 days, 1 p.o. daily x2 days Discharge Orders: Discharge ED (Routine); Ordered 02/23/25 Ordered By: Irieno Lopez Referrals: Edilma Stringer [Primary Care Provider] Discharge Activity: Resume usual activity Patient Instructions: Opioid Safety, Pain Management, Patient Portal & Boogie Instructions Print Language: Indonesian Coding Level of Care Code ED Tile Inspector for Shara Zaldivar
[2025-02-23 05:15] VITALS: BP 134/72; PULSE 60; O2SAT 96
== END 2025-02-23 05:16 | disposition home or self-care (01) ==
PROVIDERS: Emergency Provider Emergency Medicine; PCP Nurse Practitioner Adult Health
DX: K94.29 Other complications of gastrostomy (principal); Z79.02 Long term (current) use of antithrombotics/antiplatelets; F17.210 Nicotine dependence, cigarettes, uncomplicated; J44.9 Chronic obstructive pulmonary disease, unspecified; I25.10 Atherosclerotic heart disease of native coronary artery without angina pectoris; I13.0 Hypertensive heart and chronic kidney disease with heart failure and stage 1 through stage 4 chronic kidney disease, or unspecified chronic kidney disease; N18.9 Chronic kidney disease, unspecified; I50.30 Unspecified diastolic (congestive) heart failure
CPT/HCPCS: 99282

== ENCOUNTER 2025-02-27 02:38 | Observation (INO) | payer MEDICAID, SELFPAY ==
--- OUTSIDE RECORDS SUMMARY | 2023-07-06 04:30 | XMS_ITS | Continuity of Care Document ---
Author Organization [facility] Address [address] [id number] [address] Phone Care Team Providers Care Graphics Intern Name Role Phone Camila Schaeffer DDS Unavailable Unavailable Allergies, Adverse Reactions, Alerts Substance Reaction Status Criticality No Known Allergies Active No Inform ation Procedures Procedure Date No Work Today/No Charge SBIRT - AUDIT/DAST, 15-30 MIN 3 OFFICE/OUTPATIENT VISIT, NEW Intraoral Periapical First Film Intraoral Periapical Each Additional Film Intraoral Periapical Each Additional Film Intraoral Periapical Each Additional Film Intraoral Periapical Each Additional Film Comprehensive Oral Evaluatio n New Or Established Caries High Risk Exempt From Sealant Measure Advance Directives Directive Yes / No Effective Date File Name No Information Encounters Encounter Description Practice Location Reason(s) For Visit Diagnoses Date Provider Providers Copied on Encounter [facility], [id number]- [place], [place], [id number], [place] tel:[phone] [facility] Encounter for dental exam and cleaning w/o abnormal findings 3 Laury Jensen. [address], [place], [address] , [place]. tel:[phone] Referring Provider: Camila Schaeffer, [address] [place], [address] . tel:[phone] OFFICE/OUTPA TIENT VISIT, [facility], [id number]- [place], [place], [address], tel:[phone] [facility] Hypertension (chief complaint)Hea dache (chief complaint) Hypertensive emergencyRecurren t headache 3 Mike Wolf. [address], [place], [address] , [place]. tel:[phone] Referring Provider: Maryann Mckeon, [address] [place], [address] . tel:[phone] [facility], [id number]- [place], [place], [address], [place] tel:[phone] [facility] Encounter for dental exam and cleaning w/o abnormal findings 3 Laury Jensen. [address], [place], [address] , [place]. tel:[phone] Referring Provider: Camila Schaeffer, [address] [place], [address] . tel:[phone] Family History Family Member Type Diagnosis Age At Onset No Information Payers Payer name Insurance type Covered republican ID Jing mccloud(s) D Medicaid [id number] Social History Type Description Quantity Date Captured Comments Alcohol Use Details No Caffeine Use Details Unknown Tobacco Use Status Occasional cigarette smoker Smoking Status Heavy tobacco smoker Smoking Tobacco Use Details Cigarette: No Details Available Cigarette: 1 Packs per day Sex Female Gender Identity Female Vital Signs Date / Time: Height Weight BMI Pulse Rate Blood Pressure Temperature Respiratory Rate Body Surface Area Head Circumference Head Circ. Percentile Wt./Gianni. Percentile BMI percentile Pulse Ox Inhaled Ox 10:01 AM 201/180 mm[Hg] Chief Complaint And Reason For Visit No Information Reason For Referral Reason For Referral No Information Plan Of Treatment Date Type Action Status Goal Tobacco cessation counseling completed Goal Tobacco cessation counseling completed History Of Present Illness Encounter Date Complaint History Of Prese nt Illness Headache It occurs daily. Associated symptoms include dizziness, nausea, scintillations and scotoma. Pertinent negatives include blurred vision, fever, phonophobia, photophobia and vomiting. Additional information: Headache for 7 days - describes it as pounding with some sensation loss of head. Hypertension It is currently getting worse. Risk factors include smoking. Associated symptoms include dyspnea, headache and nausea. Pertinent negatives include chest pain, fatigue, irregular heartbeat/palpitations, tinnitus, transient weakness, visual disturbances and vomiting. Additional information: Has never been diagnosed with HTN. Has not been seen by medical provider in a couple of years. Admits to headache with numbness/tingling, SOB for 1 week. Functional Status Date Functional Assessmen t No Information Instructions Date Instruction Additional Infor ashleigh Had lengthy discussi on with patient regarding markedly elevated BP with several checks with symptoms of headache and shortness of breath. Recommend patient get seen urgently at ER and discussed risk of cerebral hypoperfusion if treated outpatient. Patient declines EMS transport today as she is 1 hour from home. She does have Medicaid transport home and discusses intent to seek care in ER closer to home. Recommend she call 911 if symptoms change or worsen. Recommend patient return to clinic after inpatient treatment for close follow up. Patient agreeable with plan of care. EMS refusal form obtained and scanned into chart. Related to Hypertensive emergency Lifestyle education Related to D ental Examination Assessments Type Assessment Date No Information Patient Care Teams Name Effective Dates (start - stop) Status Members No Information
[2025-02-27] VITALS (26 sets, daily range): BP systolic 94–198; BP diastolic 68–105; PULSE 46–109; RESP 15–32; TEMP 36.4–36.5; O2SAT 92–100; BMI 26.6
--- OUTSIDE RECORDS SUMMARY | 2025-02-27 02:43 | XMS_ITS ---
Author Organization [facility] Address [address] [place] [address] Phone Care Team Providers Care Aging Room Operator Name Role Phone Unavailable Primary Care [...]
--- OUTSIDE RECORDS SUMMARY | 2025-02-27 02:44 | XMS_ITS | Patient Health Record ---
Author Organization [facility] [employer] Address [address] [place], [place] [id number] Care Team Providers Care Aviation Safety Inspector Name Role Phone Jhonatan Valdez Primary Care Provider Giovanna Villa MD, Sebastien Unavailable [phone] Reason For Referral No Information Medications Medication [...] Displacement of lumbar intervertebral disc without myelopathy (10560868) Lumbar (w/out myelopathy) intervertebral disc disorder (722.10) Active confirmed Problem Lumbar spinal stenosis (31272581) Lumbar spinal stenosis (724.02) Active confirmed Problem Spasm (12112135) Muscle spasm (728.85) Active confirmed Problem Sleep dysfunction with sleep stage disturbance (297217546) Dysfunctions associated with sleep stages or arousal from sleep (780.56) Active confirmed Problem Low back pain (508174249) Low back pain (724.2) Active confirmed Problem Lumbosacral spondylosis without myelopathy (83440989) Lumbosacral spondylosis without myelopathy (721.3) Active confirmed Problem Long-term drug therapy (590115195) LONG-TERM USE MEDS NEC (V58.69) Active confirmed R/O substance abuse Problem Solitary sacroiliitis (577284220) Sacroiliitis (720.2) Active confirmed Plan Of Treatment [...]
--- OUTSIDE RECORDS SUMMARY | 2025-02-27 02:44 | XMS_ITS | Encounter Summary ---
Author Organization [facility] Address [address] [place] [address] Care Team Providers Care Superannuation Clerk Name Role Phone Anu Thompson Primary Care Provider [phone] Encounter Details Date Type Department Care Team (Late st Contact Info) Description 05/25/2024 Lab Requisition [facility] Laboratory Services [address] [place] [address] 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 Gender Identity Not on file Sexual Orientation Not on file documented as of this encounter Plan of Treatment Upcoming Encounters Date Type Department Care Team (Late Contact Info) Description 03/23/2025 10:00 AM CDT Appointment [facility] Laboratory Services [address] [facility] 2 [place] [address] Rashmi Dumont MD [address] [facility] 1000 [place] [address] 03/23/2025 11:00 AM CDT Office Visit [facility] Cancer and Hematology [place] [address] [place] [address] Rashmi Dumont MD [address] [facility] [address] [place] [address] 03/23/2025 2:00 PM CDT Appointment [facility] Radiation Oncology Cancer Center [address] [facility] 10 [place] [address] [place] [address] 05/03/2025 1:00 PM CDT Office Visit [facility] Ear Nose and Throat Head Neck SGF [address] [place] [address] Estela Manriquez, KENNEL HAND [address] [place] [address] [place] [address] documented as of this encounter Procedures Procedure Name Priority Date/Time Associated Diagnosis Comments CBC WITH DIFFERENTIAL Routine 05/25/2024 8:00 AM CDT COMPREHENSIVE METABOLIC PANEL Routine 05/25/2024 8:00 AM CDT documented in this encounter Results * (ABNORMAL) CBC WITH DIFFERENTIAL (05/25/2024 8:00 AM CDT) [facility] WBC 5.5 4.8 - 10.8 K/uL 05/25/2024 9:27 AM CDT [facility] LABORATORY SERVICES - [place] RBC 3.77(L) 4.20 - 5.40 M/uL 05/25/2024 9:27 AM [facility] HEMOGLOBIN 11.6(L) 12.0 - 16.0 g/dL 05/25/2024 9:27 AM [facility] HEMATOCRIT 35.9(L) 36.0 - 46.0 % 05/25/2024 9:27 AM [facility] MCV 95.2 84.0 - 103.0 fL 05/25/2024 9:27 AM [facility] MCH 30.8 27.0 - 34.0 pg 05/25/2024 9:27 AM [facility] MCHC 32.3 30.0 - 35.0 g/dL 05/25/2024 9:27 AM [facility] RDW 13.7 11.0 - 14.5 % 05/25/2024 9:27 AM [facility] RDW-STDEV 47.6 37.0 - 54.0 fL 05/25/2024 9:27 AM [facility] PLATELETS 196 140 - 440 K/uL 05/25/2024 9:27 AM [facility] MPV 10.1 8.9 - 12.8 fL 05/25/2024 9:27 AM [facility] NEUTROPHILS 68 42 - 75 % 05/25/2024 9:27 AM [facility] LYMPHOCYTES 23(L) 24 - 44 % 05/25/2024 9:27 AM [facility] MONOCYTES 8 2 - 10 % 05/25/2024 9:27 AM [facility] EOSINOPHILS 1 0 - 7 % 05/25/2024 9:27 AM [facility] BASOPHILS 0 0 - 1 % 05/25/2024 9:27 AM [facility] IMMATURE GRANULOCYTES 0 0 - 2 % 05/25/2024 9:27 AM [facility] NEUTROPHIL ABSOLUTE 3.72 2.00 - 8.00 K/uL 05/25/2024 9:27 AM [facility] LYMPHOCYTE ABSOLUTE 1.24 1.20 - 4.00 K/uL 05/25/2024 9:27 AM CDT [facility] MONOCYTE ABSOLUTE 0.42 0.10 - 0.60 K/uL 05/25/2024 9:27 AM CDT [facility] EOSINOPHIL ABSOLUTE 0.04 0.00 - 0.70 K/uL 05/25/2024 9:27 AM CDT [facility] BASOPHILS ABSOLUTE 0.02 0.00 - 0.20 K/uL 05/25/2024 9:27 AM CDT [facility] IMMATURE GRANULOCYTES ABSOLUTE 0.02 0.00 - 0.10 K/uL 05/25/2024 9:27 AM [facility] Blood Collection / Unknown 05/25/2024 8:00 AM CDT 05/25/2024 9:21 AM CDT Henrik Johnson DO HEMATOLOGY ORDERABLES Final Result Performing Organization Address City/State/[facility] Co de Phone Number [facility] CLIA # [id number] [facility] [address] * (ABNORMAL) COMPREHENSIVE METABOLIC PANEL (05/25/2024 8:00 AM CDT) SODIUM 143 136 - 145 mmol/L 05/25/2024 9:54 AM T [facility] POTASSIUM 4.0 3.5 - 5.1 mmol/L 05/25/2024 9:54 AM T [facility] CHLORIDE 105 98 - 107 mmol/L 05/25/2024 9:54 AM CDT [facility] CO2 30(H) 22 - 29 mmol/L 05/25/2024 9:54 AM T [facility] CALCIUM 8.8 8.6 - 10.0 mg/dL 05/25/2024 9:54 AM T [facility] BUN 8 6 - 20 mg/dL 05/25/2024 9:54 [facility]AT[facility] 0.82 0.51 - 0.95 mg/dL 05/25/2024 9:54 AM [facility] GLUCOSE 131(H) 74 - 99 mg/dL 05/25/2024 9:54 AM [facility] TOTAL PROTEIN 6.1(L) 6.4 - 8.3 g/dL 05/25/2024 9:54 AM [facility] ALBUMIN 2.9(L) 3.5 - 5.2 g/dL 05/25/2024 9:54 AM [facility] BILIRUBIN TOTAL 0.2 0.2 - 1.0 mg/dL 05/25/2024 9:54 AM [facility] ALKALINE PHOSPHATASE 64 35 - 104 U/L 05/25/2024 9:54 AM [facility] AST 29 10 - 35 U/L 05/25/2024 9:54 AM [facility] ALT 25 <=35 U/L 05/25/2024 9:54 AM [facility] GFR >60 >=60 mL/min/1.7 3 sq meter 05/25/2024 9:54 AM [facility] Comment:eGFR calculated with 2020 CKD-EPI equation. Vegetarian diet, extremely high or low muscle mass, and may affect results. Cystatin C with Glomerular Filtration Rate is a suitable alternative for these patients. ANION GAP 8(L) 9 - 20 mmol/L 05/25/2024 9:54 AM [facility] Blood Collection / Unknown 05/25/2024 8:00 AM CDT 05/25/2024 9:21 AM T us Henrik Johsnon DO CHEMISTRY ORDERABLES Final R esult [facility] CLIA # [id number] [facility] [address] documented in this encounter Visit Diagnoses Not on filedocumented in this encounter Additional Health Concerns Infection Onset Date Last Indicated Resolved Time R/O Respiratory 09/13/2024 09/13/2024 09/13/2024 1 0:56 PM TALENT DEVELOPMENT DIRECTOR Respiratory Syncytial Virus (RSV) 09/14/2024 025 10/12/2024 1:16 AM TALENT DEVELOPMENT DIRECTOR Assessment Noted Time PHQ-9 Depression Total Score: 1 04/20/20 24 11:16 PM CDT documented as of this encounter Care Teams Superannuation Clerk Relationship Specialty Start Date End Date Anu Thompson DO [address] [place] [address] PCP - General Family Practice 07/21/23 09/17/24 documented as of this encounter
--- OUTSIDE RECORDS SUMMARY | 2025-02-27 02:44 | XMS_ITS | Clinical Summary ---
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
--- OUTSIDE RECORDS SUMMARY | 2025-02-27 02:44 | XMS_ITS | Clinical Summary ---
Author Organization Sarika Chauhan [facility] Address [address] [place] [address] Phone Care Team Providers Care Technical Training Instructor Name Role Phone Unavailable Primary Care Provider [...] 05/26/20 24 Active naloxone (NARCAN) 4 mg/spray [place], Non-Aerosol EMERGENCY USE ONLY: Administer 1 spray (4 mg) in one nostril one time. May repeat in alternating nostrils every 2-3 min until responsive or EMS arrives. 2 Each 3 5 5:11 PM MEDICAL/SURGERY REGISTERED NURSE 09/28/19 25 Active trach suppliesIndicat ions:Vocal cord [...] 2 times daily. 01/26/20 25 Active lidocaine-prilo maarnda (EMLA) 2.5-2.5 % CreamIndication s:Tracheostomy status (CMS/HCC) [...] Department Care Team Description 02/22/2025 Orders Only [address] [address] Karla Goldberg MD Laryngeal squamous cell carcinoma ([facility]/HCC) 02/22/[address] [address] Karla Goldberg MD Laryngeal squamous cell carcinoma ([facility]/HCC) 02/12/2025 Orders Only [address] [address] Karla Goldberg MD Laryngeal squamous cell carcinoma ([facility]/HCC) 02/07/2025 External Device Data STL ABSTRACTION Provider, Abstract 02/02/2025 Orders Only [address] [address] Karla Goldberg MD Laryngeal squamous cell carcinoma ([facility]/HCC) 01/30/2025 11:00 AM CDT Office Visit [facility] Ear Nose and Throat Head Neck S[facility] [address] [place] [address] Estela Manriquez FNP Hx of laryngeal cancer (Primary Dx); History of radiation therapy; History of chemotherapy; Tracheostomy status ([facility]/HCC) 01/26/2025 Telephone [facility] [place] [address] [place] [address] [place] [address] [place] [address] Jacque Fam, [facility] Information (Transportation Issues) 01/25/[address] [facility] [address] [place] [address] Grady Michelle MD Laryngeal squamous cell carcinoma ([facility]/HCC) 01/16/[address] [facility] [address] [place] [address] Karla Goldberg MD Laryngeal squamous cell carcinoma ([facility]/HCC) 01/04/[address] [facility] [address] [place] [address] [address] [place] [address] Karla Goldberg MD Laryngeal squamous cell carcinoma ([facility]/HCC) 01/01/2025 External Device Data STL ABSTRACTION Provider, [...] STL ABSTRACTION Provider, Abstract 12/25/[address] [facility] [address] [place] [address] Karla Goldberg MD Laryngeal squamous cell carcinoma ([facility]/HCC) 12/25/2024 External Device Data STL ABSTRACTION Provider, [...] - 12/14/2024 11:59 PM CDT Hospital Encounter [facility] Radiation Oncology Cancer [place] [address] [place], [place] [address] [place] [address] Karla Goldberg MD Discharge Disposition: Home or Self Care 12/14/2024 11:20 AM CDT Office Visit [facility] Cancer and Hematology [place] [address] [place] [address] 2 [place] [address] Rashmi Dumont MD Laryngeal squamous cell carcinoma (CMS/HCC) 12/14/2024 9:54 AM CDT - 12/14/2024 11:59 PM CDT Hospital Encounter [facility] Laboratory Services [address] [place] [address] 2 [place] [address] Rashmi Dumont MD Discharge Disposition: Home or Self Care 12/14/2024 Chart Note [facility] [address] [place] [address] [place] [address] Jacque Fam LCSW Cancer (Social Work Navigation) 12/14/2024 Chart Note [facility] [address] [place] [address] [place] [address] Dian Lea RN 12/14/2024 External Device Data STL ABSTRACTION Provider, Abstract 12/13/2024 External Device Data STL ABSTRACTION Provider, Abstract 12/12/2024 External Device Data STL ABSTRACTION Provider, Abstract 12/12/2024 External Device Data STL ABSTRACTION Provider, Abstract 12/11/2024 12:41 PM CDT - 12/11/2024 11:59 PM CDT Hospital Encounter [facility] [address] [facility] [address] [place] [phone] Abigail Santos, ROUNDHOUSE SUPERVISOR Discharge Disposition: Home or Self Care 12/11/2024 Orders Only [facility] Radiation Oncology [facility] [address] [place] [address] [address] [place] [phone] Karla Goldberg MD Laryngeal squamous cell carcinoma (CMS/HCC) 12/11/2024 External Device Data STL ABSTRACTION Provider, Abstract 12/10/2024 External Device Data STL ABSTRACTION Provider, Abstract 12/09/2024 External Device Data STL ABSTRACTION Provider, Abstract 12/08/2024 12:28 PM CDT - 12/08/2024 11:59 PM CDT Hospital Encounter [facility] [address] [facility] [facility] [address] [place] [address] Abigail Santos, ROUNDHOUSE SUPERVISOR Discharge Disposition: Home or Self Care 12/08/2024 Telephone [facility] [address] [place] [address] [place] [address] Jacque Fam, [employer] C[employer] BACK TENDER Information (Transportation Issues) 12/08/2024 External Device Data STL ABSTRACTION Provider, Abstract 12/07/2024 1:28 PM CDT - 12/07/2024 11:59 PM CDT Hospital Encounter [facility] [address] [place] [address] [address] [place] [phone] Karla Goldberg MD Discharge Disposition: Home or Self Care 12/07/2024 Orders Only [facility] Cancer [facility] Hematology [place] [address] [place] [address] [address] [place] [address] Abigail Santos, ROUNDHOUSE SUPERVISOR Chemotherapy induced neutropenia (Primary Dx) 12/07/2024 Telephone [facility] Hematology [place] [address] [place] [address] 2 [place] [address] Karla Saldana, DANICA inf2 for neupogen 12/07/2024 Chart Note [facility] [place] [address] [place] [address] [place] [address] Dian Lea, DANICA 12/07/2024 External Device Data STL ABSTRACTION Provider, Abstract 12/06/2024 1:03 PM CDT - 12/06/2024 11:59 PM CDT Hospital Encounter [facility] Radiation Oncology Cancer [place] [address] [place] [address] 10 [place] [address] Karla Goldberg MD Discharge Disposition: Home or Self Care 12/06/2024 11:30 AM CDT Office Visit [facility] [address] [place] [address] 2 [place] [address] Rashmi Dumont MD Grogan, Susan K, ROUNDHOUSE SUPERVISOR Laryngeal squamous cell carcinoma (CMS/HCC) (Primary Dx); PEG (percutaneous endoscopic gastrostomy) status (CMS/HCC); Tracheostomy in place (CMS/HCC); Stage 3a chronic kidney disease (CMS/HCC); Anxiety; Cancer related pain; Chemotherapy-induced neutropenia; S/P radiation therapy < 4 weeks ago; Protein-calorie malnutrition, severe 12/06/2024 10:59 AM CDT - 12/06/2024 11:59 PM CDT Hospital Encounter [facility] Laboratory Services [address] [place] [address] 2 [place] [address] Rashmi Dumont MD Discharge Disposition: Home or Self Care 12/06/2024 Chart Note [facility] [place] [address] [place] [address] [place] [address] Dian Lea, DANICA 12/06/2024 Refill [facility] Hematology [place] [address] [place] [address] 2 [place] [address] Lisette Shukla MD Laryngeal squamous cell carcinoma (CMS/HCC) 12/06/2024 Orders Only [facility] Cancer [facility] [address] [place] [address] Abigail Santos, ROUNDHOUSE SUPERVISOR Laryngeal squamous cell carcinoma (CMS/HCC) (Primary Dx) 12/06/2024 External Device Data STL ABSTRACTION Provider, Abstract 12/05/2024 External Device Data STL ABSTRACTION Provider, Abstract 12/04/2024 1:35 PM CDT - 12/04/2024 11:59 PM CDT Hospital Encounter [facility] [address] [place] [address] [facility] [address] [place] [address] Karla Goldberg MD Discharge Disposition: Home or Self Care 12/04/2024 Chart Note [facility] [place] [address] [place] [address] [place] [address] Jacque aFm, DRY CANS BACK TENDER Cancer 12/04/2024 Chart Note [facility] Cancer [facility] Hematology [place] [address] [place] [address] Ave [facility] 2 [place] [address] 12/04/2024 External Device Data STL ABSTRACTION Provider, Abstract 12/03/2024 External Device Data STL ABSTRACTION Provider, Abstract 12/02/2024 External Device Data STL ABSTRACTION Provider, Abstract 12/01/2024 External Device Data STL ABSTRACTION Provider, Abstract 11/30/2024 1:28 PM CDT - 11/30/2024 11:59 PM CDT Hospital Encounter [facility] [address] [place] [address] [address]VE [facility] [address] [place] [phone] Karla Goldberg MD Discharge Disposition: Home or Self Care 11/30/2024 External Device Data STL ABSTRACTION Provider, Abstract 11/29/2024 1:17 PM CDT - 11/29/2024 11:59 PM CDT Hospital Encounter [facility] [address] [place], [place] [address] [facility] [address] [place] [phone] Karla Goldberg MD Discharge Disposition: Home or Self Care 11/29/2024 Chart Note [facility] [address] [place] [address] [place] [address] Dian Lea RN 11/29/2024 Orders Only [facility] Cancer and Hematology [place] [address] [place] [address] Ave [facility] 2 [place] [address] Rashmi Dumont MD Laryngeal squamous cell carcinoma (CMS/HCC) (Primary Dx) 11/29/2024 Chart Note [facility] Cancer and Hematology [place] [address] [place] [address] 2 [place] [address] [address] 11/29/2024 External Device Data STL ABSTRACTION Provider, Abstract 11/28/2024 Telephone [facility] [address] [place] [address] [place] [address] Dian Lea, RN Nurse Navigation 11/28/2024 External [...] on file Legal Sex Female 1:37 AM MEDICAL/SURGERY REGISTERED NURSE Gender Identity Not on file Sexual Orientation [...] Info) Description 03/23/2025 10:00 AM CDT Appointment [facility] [address] [facility] [place] [address] Rashmi Dumont MD [address] [address] 03/23/2025 11:00 AM CDT Office Visit [facility] Cancer [facility] Hematology [place] [address] [facility] 2 [place] [address] Rashmi Dumont MD [address] [place] [address] 03/23/2025 2:00 PM CDT Appointment [facility] Radiation Oncology Cancer [place] [address] [facility] 10 [place] [address] Karla Goldberg MD [address] [place] [address] 05/03/2025 1:00 PM CDT Office Visit [facility] Ear Nose and Throat Head Neck S[facility] [address] [place] [address] Estela Manriquez, GUY [address] [place] [address] Health Maintenance Due Date Last Done Comments [...] Screening 01/08/202701/08 Medical Devices Implanted Type Area Websphere Message Broker Developer Device Identifier Shelf Expiration Date Model / Serial / Lot Port Pwrprt Clearvue Slim 8fr [id number] - [id number] Implanted:Qty: 1 on 11/02/2024 by Yanira Quesada MD at [facility] Port Right: Chest BARD SKYLER VASC [id number] 10/20/2025 [id number] / / [id number] Procedures Procedure Name Priority Date/Time Associated Diagnosis Comments TN LARYNGOSCOPY FLEXIBLE DIAGNOSTIC Routine 01/30/2025 11:33 AM [...] Recently Relevant to Health Maintenance Results * TN LARYNGOSCOPY FLEXIBLE DIAGNOSTIC (01/30/2025 11:33 AM CDT) [facility] Estela Manriquez FNP - 01/30/2025 11:33 AM [...] confirm trach was in correct place. Estela GOODMANP PROCEDURE/MINOR SURGI MADISYN ORDERABLES Final Result * (ABNORMAL) MANUAL DIFFERENTIAL (12/14/2024 10:21 AM CDT) ADJUSTED WBC 7.0 4.8 - 10.8 K/uL 12/14/2024 11:[address] [facility] [place] NRBC PER 100 WBC 1(H) <1 /100 WBC 12/14/2024 11:[address] [facility] [place] SEGMENTED NEUTROPHILS 79(H) 36 - 66 % 12/14/2024 11:46 AM [facility] [place] LYMPHOCYTES RELATIVE 3(L) 43 - 53 % 12/14/2024 11:46 AM [facility] [place] MONOCYTES RELATIVE 8 4 - 10 % 2024 11:[address] [facility] [place] EOSINOPHILS RELATIVE 1 [...] COUNTED IN DIFF 100 12/14/2024 11:46 AM [facility] [place] PLATELET EST. Adequate 12/14/2024 11:46 AM [facility] [place] RBC MORPHOLOGY Normal 12/14/2024 11:46 AM [facility] [place] TOXIC GRANULATION 1+ 025 11:46 AM [facility] [place] Blood Venipuncture / Unknown 12/14/2024 10:21 AM CDT 12/14/2024 10:53 AM CDT [facility] [place] - 12/14/2024 11:46 AM CDT Adjusted for nucleated RBC's Rashmi Dumont MD HEMATOLOGY ORDERABLES COM Final Result [facility] [place] CLIA# [id number] [id number] [place] [address] * (ABNORMAL) CBC WITH DIFFERENTIAL (12/14/2024 10:21 AM CDT) Only the most recent of2 resultswithin the time period is included. WBC 7.1 4.8 - 10.8 K/uL 12/14/2024 11:[address] [facility] [place] RBC 3.39(L) 4.20 - 5.40 M/uL 12/14/2024 11:[address] [facility] [place] HEMOGLOBIN 10.8(L) 12.0 - 16.0 g/dL 12/14/2024 11:08 AM [facility] [place] HEMATOCRIT 32.6(L) 36.0 - 46.0 % 12/14/2024 11:08 AM [facility] [place] MCV 96.2 82.0 - 100.0 fL 12/14/2024 11:[address] [facility] [place] MCH 31.9 27.0 - 34.0 pg 12/14/2024 11:[address] [facility] [place] MCHC 33.1 31.0 - 37.0 g/dL 12/14/2024 11:08 AM [facility] [place] RDW 15.9(H) 11.0 - 14.5 % 12/14/2024 11:08 AM [facility] [place] RDW-STDEV 52.6 37.0 - 54.0 fL 12/14/2024 11:08 AM [facility] [place] PLATELETS 325 140 - 440 K/uL 12/14/2024 11:[address] [facility] [place] MPV 9.8 8.9 - 12.8 fL 12/14/2024 11:08 AM [facility] [place] Blood Venipuncture / Unknown 12/14/2024 10:21 AM CDT 12/14/2024 10:53 AM CDT us Rashmi Dumont MD HEMATOLOGY ORDERABLES Fin al Result [facility] [place] CLIA# [id number] [address] [place] [address] * (ABNORMAL) COMPREHENSIVE METABOLIC PANEL (12/14/2024 10:21 AM CDT) Only the most recent of2 resultswithin the time period is included. SODIUM 140 136 - 145 mmol/L 12/14/2024 11:[address] [facility] [place] POTASSIUM 3.5 3.5 - 5.1 mmol/L 12/14/2024 11:[address] [facility] [place] CHLORIDE 103 98 - 107 mmol/L 12/14/2024 11:[address] [facility] [place] CO2 25 22 - 29 mmol/L 12/14/2024 11:[address] [facility] [place] CALCIUM 9.2 8.6 - 10.0 mg/dL 12/14/2024 11:[address] [facility] [place] BUN 22(H) 6 - 20 mg/dL 12/14/2024 11:[address] [facility] [place] CREATININE 1.67(H) 0.51 - 0.95 mg/dL 12/14/2024 11:[address] [facility] [place] GLUCOSE 98 74 - 99 mg/dL 12/14/2024 11:[address] [facility] [place] TOTAL PROTEIN 6.6 6.4 - 8.3 g/dL 12/14/2024 11:[address] [facility] [place] ALBUMIN 3.4(L) 3.5 - 5.2 g/dL 12/14/2024 11:[address] [facility] [place] BILIRUBIN TOTAL 0.3 0.2 - 1.0 mg/dL 12/14/2024 11:[address] [facility] [place] ALKALINE PHOSPHATASE 79 35 - 104 U/L 12/14/2024 11:[address] [facility] [place] AST 33 <=33 U/L 12/14/2024 11:32 AM [facility] [place] ALT 15 <=33 U/L 12/14/2024 11:[address] [facility] [place] GFR 37(L) >=60 mL/min/1.7 3 sq meter 12/14/2024 11:[address] [facility] [place] Comment:eGFR calculated with 2020 CKD-EPI equation. Vegetarian diet, extremely high or low muscle mass, and may affect results. Cystatin C with Glomerular Filtration Rate is a suitable alternative for these patients. ANION GAP 12 9 - 20 mmol/L 12/14/2024 11:32 AM [facility] [place] Blood Venipuncture / Unknown 12/14/2024 10:21 AM CDT 12/14/2024 10:54 AM CDT us Rashmi Dumont MD CHEMISTRY ORDERABLES Yareli l Result Performing Organization Address City/State/[facility] Co de Phone Number [facility] [place] CLIA# [id number] [id number] [place] [address] * HEMOGLOBIN A1C (01/09/2024 4:16 PM CDT) HEMOGLOBIN A1C 5.5 <=5.6 % 01/09/2024 5:13 PM CDT [facility] EST. AVG GLUCOSE, A1C 111 mg/dL 01/09/2024 5:13 PM CDT [facility] Blood Venipuncture / Unknown 01/09/2024 4:16 PM CDT 01/09/2024 4:20 PM CDT Narrative [facility] - 01/09/2024 5:13 PM CDT HGB A1C INTERPRETATION NORMAL: <5.7% PRE-DIABETES: 5.7 - 6.4% DIABETES: 6.5% OR GREATER Liam Francisco MD CHEMISTRY ORDERABLES Final Resu lt [facility] CLIA # [id number] [address] [place] [address] from Last 3 Months or Most Recently Relevant to Health Maintenance Insurance MEDICA[place] [employer] Medicaid Advance Directives For more information, please contact: [phone] * Full Code (Latest Code Status on File) Date Activated Date Inactivated Comments 09/14/2024 12:03 PM 09/28/2024 7:37 PM * Default Full Code - Needs Discussion Date Activated Date Inactivated Comments 09/13/2024 8:56 PM 09/14/2024 12:03 PM * Full Code Date Activated Date Inactivated Comments 04/20/2024 11:37 PM 04/22/2024 6:20 PM
--- OUTSIDE RECORDS SUMMARY | 2025-02-27 02:44 | XMS_ITS | Encounter Summary ---
Author Organization [facility] Address [address] [place] [address] Care Team Providers Care Stripper And Opaquer Apprentice Name Role Phone Unavailable Primary Care Provider Unavailabl e Reason for Visit * Reason Comments Med Refill Encounter Details Date Type Department Care Team (Late st Contact Info) Description 02/22/2025 Refill [facility] Radiation On[facility] [address] [facility] 10 [place] [phone] Karla Goldberg MD [address] [place] [address] Laryngeal squamous cell carcinoma (CMS/HCC) [...] on file Legal Sex Female 1:37 AM STOCK ROLLER Gender Identity Not on file Sexual Orientation Not on file documented as of this encounter Plan of Treatment Upcoming Encounters Date Type Department Care Team (Late st Contact Info) Description 03/23/2025 10:00 AM CDT Appointment [facility] [address] [place] [phone] Rashmi Dumont MD S [facility] [address] [place] [address] 03/23/2025 11:00 AM CDT Office Visit [facility] Cancer and Hematology [address] [place] [address] Rashmi Dumont MD S [facility] [address] [place] [address] 03/23/2025 2:00 PM CDT Appointment [facility] Radiation Oncology [facility] [employer] [address] [place] [address] [place] [address] 05/03/2025 1:00 PM CDT Office Visit [facility] Nose [facility] Th[facility] Head Neck [facility] [address] [place] [address] Estela Manriquez FNP [address] [place] [address] documented as of this encounter Visit Diagnoses Diagnosis 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
--- OUTSIDE RECORDS SUMMARY | 2025-02-27 02:44 | XMS_ITS | Encounter Summary ---
Author Organization [facility] Address [address] [place] [address] Care Team Providers Care Boat Detailer Name Role Phone Anu Thompson Primary Care Provider [phone] Encounter Details Date Type Department Care Team (Late st Contact Info) Description 05/29/2024 Lab Requisition [facility] Laboratory Services [address] [place] [address] Henrik Johnson, [address] [place] [address] Social History Tobacco Use Types [...] file Legal Sex Female 1:37 AM FIRE PREVENTION INSPECTOR Gender Identity Not on file Sexual Orientation Not on file documented as of this encounter Plan of Treatment Upcoming Encounters Date Type Department Care Team (Late Contact Info) Description 03/23/2025 10:00 AM CDT Appointment [facility] Laboratory Services [address] [facility] 2 [place] [address] Rashmi Dumont MD [address] [facility] 1000 [place] [address] 03/23/2025 11:00 AM CDT Office Visit [facility] Cancer and Hematology [place] [address] [place] [place] [address] Rashmi Dumont MD [address] [facility] 1000 [place] [address] 03/23/2025 2:00 PM CDT Appointment [facility] Radiation Oncology [facility] [address] [facility] 10 [place] [address] [place] [address] 05/03/2025 1:00 PM CDT Office Visit [facility] Ear Nose and Throat Head Neck SGF [address] [place] [address] Estela Manriquez, SUPERINTENDENT LOCAL [address] [place] [address] [place] [address] documented as of this encounter Procedures Procedure Name Priority Date/Time Associated Diagnosis Comments CBC WITH DIFFERENTIAL Routine 05/29/2024 3:00 AM CDT COMPREHENSIVE METABOLIC PANEL Routine 05/29/2024 3:00 AM CDT documented in this encounter Results * (ABNORMAL) CBC WITH DIFFERENTIAL (05/29/2024 3:00 AM CDT) [facility] WBC 5.1 4.8 - 10.8 K/uL 05/29/2024 5:44 AM CDT [facility] RBC 3.90(L) 4.20 - 5.40 M/uL 05/29/2024 5:44 AM [facility] HEMOGLOBIN 12.0 12.0 - 16.0 g/dL 05/29/2024 5:44 AM [facility] HEMATOCRIT 37.3 36.0 - 46.0 % 05/29/2024 5:44 AM [facility] MCV 95.6 84.0 - 103.0 fL 05/29/2024 5:44 AM [facility] MCH 30.8 27.0 - 34.0 pg 05/29/2024 5:44 AM [facility] MCHC 32.2 30.0 - 35.0 g/dL 05/29/2024 5:44 AM [facility] RDW 13.7 11.0 - 14.5 % 05/29/2024 5:44 AM [facility] RDW-STDEV 46.7 37.0 - 54.0 fL 05/29/2024 5:44 AM [facility] PLATELETS 312 140 - 440 K/uL 05/29/2024 5:44 AM [facility] MPV 10.9 8.9 - 12.8 fL 05/29/2024 5:44 AM [facility] NEUTROPHILS 59 42 - 75 % 05/29/2024 5:44 AM [facility] LYMPHOCYTES 29 24 - 44 % 05/29/2024 5:44 AM [facility] MONOCYTES 10 2 - 10 % 05/29/2024 5:44 AM CDT [facility] EOSINOPHILS 2 0 - 7 % 05/29/2024 5:44 AM [facility] BASOPHILS 1 0 - 1 % 05/29/2024 5:44 AM [facility] IMMATURE GRANULOCYTES 1 0 - 2 % 05/29/2024 5:44 AM [facility] NEUTROPHIL ABSOLUTE 2.97 2.00 - 8.00 K/uL 05/29/2024 5:44 [facility] LYMPHOCYTE ABSOLUTE 1.44 1.20 - 4.00 K/uL 05/29/2024 5:44 AM CDT [facility] MONOCYTE ABSOLUTE 0.48 0.10 - 0.60 K/uL 05/29/2024 5:44 AM CDT [facility] EOSINOPHIL ABSOLUTE 0.09 0.00 - 0.70 K/uL 05/29/2024 5:44 AM CDT [facility] BASOPHILS ABSOLUTE 0.03 0.00 - 0.20 K/uL 05/29/2024 5:44 AM CDT [facility] IMMATURE GRANULOCYTES ABSOLUTE 0.04 0.00 - 0.10 K/uL 05/29/2024 5:44 AM T [facility] Blood Collection / Unknown 05/29/2024 3:00 AM CDT 05/29/2024 5:36 AM CDT Henrik Johnson DO HEMATOLOGY ORDERABLES Final Result Performing Organization Address City/State/[facility] Co de Phone Number [facility] CLIA # [id number] Count includes the [facility] [id number] * (ABNORMAL) COMPREHENSIVE METABOLIC PANEL (05/29/2024 3:00 AM CDT) SODIUM 138 136 - 145 mmol/L 05/29/2024 6:23 AM T [facility] POTASSIUM 4.1 3.5 - 5.1 mmol/L 05/29/2024 6:23 AM T [facility] CHLORIDE 98 98 - 107 mmol/L 05/29/2024 6:23 AM T [facility] CO2 28 22 - 29 mmol/L 05/29/2024 6:23 AM T [facility] CALCIUM 9.6 8.6 - 10.0 mg/dL 05/29/2024 6:23 AM T [facility] BUN 18 6 - 20 mg/dL 05/29/2024 6:23 AM T [facility] CREATININE 0.86 0.51 - 0.95 mg/dL 05/29/2024 6:23 AM T [facility] GLUCOSE 146(H) 74 - 99 mg/dL 05/29/2024 6:[address] [facility] TOTAL PROTEIN 6.4 6.4 - 8.3 g/dL 05/29/2024 6:[address] [facility] ALBUMIN 3.2(L) 3.5 - 5.2 g/dL 05/29/2024 6:[address] [facility] BILIRUBIN TOTAL 0.3 0.2 - 1.0 mg/dL 05/29/2024 6:[address] [facility] ALKALINE PHOSPHATASE 69 35 - 104 U/L 05/29/2024 6:[address] [facility] AST 41(H) 10 - 35 U/L 05/29/2024 6:[address] [facility] ALT 38(H) <=35 U/L 05/29/2024 6:[address] [facility] GFR >60 >=60 mL/min/1.7 3 sq meter 05/29/2024 6:[address] [facility] Comment:eGFR calculated with 2020 CKD-EPI equation. Vegetarian diet, extremely high or low muscle mass, and may affect results. Cystatin C with Glomerular Filtration Rate is a suitable alternative for these patients. ANION GAP 12 9 - 20 mmol/L 05/29/2024 6:[address] [facility] Blood Collection / Unknown 05/29/2024 3:00 AM CDT 05/29/2024 5:36 AM CDT us Henrik Johnson DO CHEMISTRY ORDERABLES Final R esult [facility] CLIA # [id number] Count includes the [facility] [address] documented in this encounter Visit Diagnoses Not on filedocumented in this encounter Additional Health Concerns Infection Onset Date Last Indicated Resolved Time R/O Respiratory 09/13/2024 09/13/2024 09/13/2024 1 0:56 PM FIRE PREVENTION INSPECTOR Respiratory Syncytial Virus (RSV) 09/14/2024 025 10/12/2024 1:16 AM FIRE PREVENTION INSPECTOR Assessment Noted Time PHQ-9 Depression Total Score: 1 04/20/20 24 11:16 PM CDT documented as of this encounter Care Teams Boat Detailer Relationship Specialty Start Date End Date Anu Thompson DO [address] [place] [address] PCP - General Family Practice 07/21/23 09/17/24 documented as of this encounter
--- OUTSIDE RECORDS SUMMARY | 2025-02-27 02:44 | XMS_ITS | Encounter Summary ---
Author Organization [facility] Address 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 Gender Identity Not on file Sexual Orientation Not on file documented as of this encounter Plan of Treatment Upcoming Encounters Date Type Department Care Team (Late Contact Info) Description 03/23/2025 10:00 AM CDT Appointment [facility] Laboratory Services [address] [facility] 2 [place] [address] Rashmi Dumont MD [address] [facility] 1000 [place] [address] 03/23/2025 11:00 AM CDT Office Visit [facility] Cancer and Hematology [place] [address] [facility] [place] [address] Rashmi Dumont MD [address] [facility] 1000 [place] [address] 03/23/2025 2:00 PM CDT Appointment [facility] Radiation Oncology Cancer Center [address] [facility] 10 [place] [address] [place] [address] 05/03/2025 1:00 PM CDT Office Visit [facility] Ear Nose and Throat Head Neck SGF [address] [place] [address] Estela Manriquez, CIAIO COUNTER MOLDER [address] [place] [address] documented as of this encounter Procedures Procedure Name Priority Date/Time Associated Diagnosis Comments CBC WITH DIFFERENTIAL Routine 05/23/2024 3:00 AM CDT COMPREHENSIVE METABOLIC PANEL Routine 05/23/2024 3:00 AM CDT documented in this encounter Results * (ABNORMAL) CBC WITH DIFFERENTIAL (05/23/2024 3:00 AM CDT) [facility] WBC 5.2 4.8 - 10.8 K/uL 05/23/2024 7:[address] [facility] [place] RBC 3.18(L) 4.20 - 5.40 M/uL 05/23/2024 7:41 AM [facility] HEMOGLOBIN 9.7(L) 12.0 - 16.0 g/dL 05/23/2024 7:41 AM [facility] HEMATOCRIT 31.1(L) 36.0 - 46.0 % 05/23/2024 7:41 AM [facility] MCV 97.8 84.0 - 103.0 fL 05/23/2024 7:41 AM [facility] MCH 30.5 27.0 - 34.0 pg 05/23/2024 7:41 AM [facility] MCHC 31.2 30.0 - 35.0 g/dL 05/23/2024 7:41 AM [facility] RDW 13.1 11.0 - 14.5 % 05/23/2024 7:41 AM [facility] RDW-STDEV 46.8 37.0 - 54.0 fL 05/23/2024 7:41 AM [facility] PLATELETS 157 140 - 440 K/uL 05/23/2024 7:41 AM [facility] MPV 10.6 8.9 - 12.8 fL 05/23/2024 7:41 AM [facility] NEUTROPHILS 72 42 - 75 % 05/23/2024 7:41 AM [facility] LYMPHOCYTES 19(L) 24 - 44 % 05/23/2024 7:41 AM [facility] MONOCYTES 8 2 - 10 % 05/23/2024 7:41 AM [facility] EOSINOPHILS 1 0 - 7 % 05/23/2024 7:41 AM [facility] BASOPHILS 0 0 - 1 % 05/23/2024 7:41 AM [facility] IMMATURE GRANULOCYTES 0 0 - 2 % 05/23/2024 7:41 AM [facility] NEUTROPHIL ABSOLUTE 3.76 2.00 - 8.00 K/uL 05/23/2024 7:41 AM [facility] LYMPHOCYTE ABSOLUTE 0.99(L) 1.20 - 4.00 K/uL 05/23/2024 7:41 AM CDT [facility] MONOCYTE ABSOLUTE 0.40 0.10 - 0.60 K/uL 05/23/2024 7:41 AM CDT [facility] EOSINOPHIL ABSOLUTE 0.03 0.00 - 0.70 K/uL 05/23/2024 7:41 AM CDT [facility] BASOPHILS ABSOLUTE 0.02 0.00 - 0.20 K/uL 05/23/2024 7:41 AM CDT [facility] IMMATURE GRANULOCYTES ABSOLUTE 0.01 0.00 - 0.10 K/uL 05/23/2024 7:41 AM [facility] Blood Collection / Unknown 05/23/2024 3:00 AM CDT 05/23/2024 7:41 AM CDT Henrik Johnson DO HEMATOLOGY ORDERABLES Final Result [facility] CLIA # [id number] [address] [place] [address] * (ABNORMAL) COMPREHENSIVE METABOLIC PANEL (05/23/2024 3:00 AM CDT) SODIUM 140 136 - 145 mmol/L 05/23/2024 8:09 AM T [facility] POTASSIUM 3.7 3.5 - 5.1 mmol/L 05/23/2024 8:09 AM [facility] CHLORIDE 101 98 - 107 mmol/L 05/23/2024 8:09 AM T [facility] CO2 32(H) 22 - 29 mmol/L 05/23/2024 8:09 AM T [facility] CALCIUM 8.9 8.6 - 10.0 mg/dL 05/23/2024 8:09 AM T [facility] BUN 9 6 - 20 mg/dL 05/23/2024 8:09 AM [facility] CREATININE 0.86 0.51 - 0.95 mg/dL 05/23/2024 8:09 AM [facility] GLUCOSE 95 74 - 99 mg/dL 05/23/2024 8:09 AM [facility] TOTAL PROTEIN 5.5(L) 6.4 - 8.3 g/dL 05/23/2024 8:09 AM [facility] ALBUMIN 2.6(L) 3.5 - 5.2 g/dL 05/23/2024 8:09 AM [facility] BILIRUBIN TOTAL 0.5 0.2 - 1.0 mg/dL 05/23/2024 8:09 AM [facility] ALKALINE PHOSPHATASE 50 35 - 104 U/L 05/23/2024 8:09 AM [facility] AST 28 10 - 35 U/L 05/23/2024 8:09 AM [facility] ALT 20 <=35 U/L 05/23/2024 8:09 AM [facility] GFR >60 >=60 mL/min/1.7 3 sq meter 05/23/2024 8:09 AM [facility] Comment:eGFR calculated with 2020 CKD-EPI equation. Vegetarian diet, extremely high or low muscle mass, and may affect results. Cystatin C with Glomerular Filtration Rate is a suitable alternative for these patients. ANION GAP 7(L) 9 - 20 mmol/L 05/23/2024 8:09 AM [facility] Blood Collection / Unknown 05/23/2024 3:00 AM CDT 05/23/2024 7:52 AM T us Henrik Johnson DO CHEMISTRY ORDERABLES Final R esult [facility] CLIA # [id number] [facility] [address] [address] documented in this encounter Visit Diagnoses Not on filedocumented in this encounter Additional Health Concerns Infection Onset Date Last Indicated Resolved Time R/O Respiratory 09/13/2024 09/13/2024 09/13/2024 1 0:56 PM SCREEN PRINTER HELPER Respiratory Syncytial Virus (RSV) 09/14/2024 025 10/12/2024 1:16 AM SCREEN PRINTER HELPER Assessment Noted Time PHQ-9 Depression Total Score: 1 04/20/20 24 11:16 PM CDT documented as of this encounter Care Teams Decontaminator Relationship Specialty Start Date End Date Anu Thompson DO [address] [place] [address] PCP - General Family Practice 07/21/23 09/17/24 documented as of this encounter
--- OUTSIDE RECORDS SUMMARY | 2025-02-27 02:44 | XMS_ITS | Encounter Summary ---
Author Organization [facility] Address 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 Gender Identity Not on file Sexual Orientation Not on file documented as of this encounter Plan of Treatment Upcoming Encounters Date Type Department Care Team (Late st Contact Info) Description 03/23/2025 10:00 AM CDT Appointment [facility] Laboratory Services [address] [place] [address] [place] [address] Rashmi Dumont MD S [facility] 1000 [place] [address] 03/23/2025 11:00 AM CDT Office Visit [facility] Cancer and Hematology [place] [address] [facility] 2 [place] [address] Rashmi Dumont MD S [facility] 1000 [place] [address] 03/23/2025 2:00 PM CDT Appointment [facility] Radiation Oncology Cancer [place] [address] [facility] 10 [place] [address] [place] [address] 05/03/2025 1:00 PM CDT Office Visit [facility] Ear Nose and Throat Head Neck SGF [address] [place] [address] Estela Manriquez FNP [address] [place] [address] documented as of this encounter Visit Diagnoses Diagnosis 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
--- OUTSIDE RECORDS SUMMARY | 2025-02-27 02:44 | XMS_ITS | Encounter Summary ---
Author Organization [facility] Address 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 Gender Identity Not on file Sexual Orientation Not on file documented as of this encounter Plan of Treatment Upcoming Encounters Date Type Department Care Team (Late Contact Info) Description 03/23/2025 10:00 AM CDT Appointment [facility] Laboratory Services [address] [facility] 2 [place] [address] Rashmi Dumont MD [address] [facility] [address] [place] [address] 03/23/2025 11:00 AM CDT Office Visit [facility] Cancer and Hematology [place] [address] [facility] [place] [address] Rashmi Dumont MD [address] [facility] [address] [place] [address] 03/23/2025 2:00 PM CDT Appointment [facility] Oncology [facility] [address] [facility] 10 [place] [address] [place] [address] 05/03/2025 1:00 PM CDT Office Visit [facility] Ear Nose and Throat Head Neck SGF [address] [place] [address] Estela Manriquez, SUPERVISOR/PORT DIRECTOR [address] [place] [address] documented as of this encounter Procedures Procedure Name Priority Date/Time Associated Diagnosis Comments CBC WITH DIFFERENTIAL Routine 06/05/2024 3:40 AM CDT COMPREHENSIVE METABOLIC PANEL Routine 06/05/2024 3:40 AM CDT documented in this encounter Results * (ABNORMAL) CBC WITH DIFFERENTIAL (06/05/2024 3:40 AM CDT) [facility] WBC 7.2 4.8 - 10.8 K/uL 06/05/2024 6:01 AM CDT [facility] [place] RBC 3.98(L) 4.20 - 5.40 M/uL 06/05/2024 6:[address] [facility] HEMOGLOBIN 12.1 12.0 - 16.0 g/dL 06/05/2024 6:01 AM [facility] HEMATOCRIT 38.6 36.0 - 46.0 % 06/05/2024 6:[address] [facility] MCV 97.0 84.0 - 103.0 fL 06/05/2024 6:01 AM [facility] MCH 30.4 27.0 - 34.0 pg 06/05/2024 6:01 AM [facility] MCHC 31.3 30.0 - 35.0 g/dL 06/05/2024 6:01 AM [facility] RDW 15.0(H) 11.0 - 14.5 % 06/05/2024 6:01 AM [facility] RDW-STDEV 53.1 37.0 - 54.0 fL 06/05/2024 6:01 AM [facility] PLATELETS 318 140 - 440 K/uL 06/05/2024 6:01 AM [facility] MPV 10.7 8.9 - 12.8 fL 06/05/2024 6:[address] [facility] NEUTROPHILS 56 42 - 75 % 06/05/2024 6:[address] [facility] LYMPHOCYTES 33 24 - 44 % 06/05/2024 6:01 AM [facility] MONOCYTES 9 2 - 10 % 06/05/2024 6:01 AM [facility] EOSINOPHILS 2 0 - 7 % 06/05/2024 6:01 AM [facility] BASOPHILS 1 0 - 1 % 06/05/2024 6:01 AM [facility] IMMATURE GRANULOCYTES 1 0 - 2 % 06/05/2024 6:01 AM [facility] NEUTROPHIL ABSOLUTE 4.03 2.00 - 8.00 K/uL 06/05/2024 6:01 AM [facility] LYMPHOCYTE ABSOLUTE 2.35 1.20 - 4.00 K/uL 06/05/2024 6:01 AM CDT [facility] MONOCYTE ABSOLUTE 0.61(H) 0.10 - 0.60 K/uL 06/05/2024 6:01 AM CDT [facility] EOSINOPHIL ABSOLUTE 0.12 0.00 - 0.70 K/uL 06/05/2024 6:01 AM CDT [facility] BASOPHILS ABSOLUTE 0.05 0.00 - 0.20 K/uL 06/05/2024 6:01 AM CDT [facility] IMMATURE GRANULOCYTES ABSOLUTE 0.04 0.00 - 0.10 K/uL 06/05/2024 6:01 AM T [facility] Blood Collection / Unknown 06/05/2024 3:40 AM CDT 06/05/2024 5:53 AM CDT Henrik Johnson DO HEMATOLOGY ORDERABLES Final Result Performing Organization Address City/State/[facility] Co de Phone Number [facility] CLIA # [id number] [facility] [address] * (ABNORMAL) COMPREHENSIVE METABOLIC PANEL (06/05/2024 3:40 AM CDT) SODIUM 140 136 - 145 mmol/L 06/05/2024 6:33 AM T [facility] POTASSIUM 4.8 3.5 - 5.1 mmol/L 06/05/2024 6:33 AM T [facility] CHLORIDE 106 98 - 107 mmol/L 06/05/2024 6:33 AM T [facility] CO2 23 22 - 29 mmol/L 06/05/2024 6:33 AM T [facility] CALCIUM 9.6 8.6 - 10.0 mg/dL 06/05/2024 6:33 AM T [facility] BUN 36(H) 6 - 20 mg/dL 06/05/2024 6:33 AM CDT [facility] CREATININE 1.10(H) 0.51 - 0.95 mg/dL 06/05/2024 6:[address] [facility] GLUCOSE 85 74 - 99 mg/dL 06/05/2024 6:[address] [facility] TOTAL PROTEIN 6.4 6.4 - 8.3 g/dL 06/05/2024 6:[address] [facility] ALBUMIN 3.4(L) 3.5 - 5.2 g/dL 06/05/2024 6:[address] [facility] BILIRUBIN TOTAL 0.2 0.2 - 1.0 mg/dL 06/05/2024 6:[address] [facility] ALKALINE PHOSPHATASE 81 35 - 104 U/L 06/05/2024 6:[address] [facility] AST 35 10 - 35 U/L 06/05/2024 6:[address] [facility] ALT 35 <=35 U/L 06/05/2024 6:[address] [facility] GFR >60 >=60 mL/min/1. 73 sq meter 06/05/2024 6:[address] [facility] Comment:eGFR calculated with 2020 CKD-EPI equation. Vegetarian diet, extremely high or low muscle mass, and may affect results. Cystatin C with Glomerular Filtration Rate is a suitable alternative for these patients. ANION GAP 11 9 - 20 mmol/L 06/05/2024 6:[address] [facility] Blood Collection / Unknown 06/05/2024 3:40 AM CDT 06/05/2024 5:53 AM CDT us Henrik Johnson DO CHEMISTRY ORDERABLES Final R esult [facility] CLIA # [id number] [id number] documented in this encounter Visit Diagnoses Not on filedocumented in this encounter Additional Health Concerns Infection Onset Date Last Indicated Resolved Time R/O Respiratory 09/13/2024 09/13/2024 09/13/2024 1 0:56 PM DIET TECHNICIAN REGISTERED Respiratory Syncytial Virus (RSV) 09/14/2024 025 10/12/2024 1:16 AM DIET TECHNICIAN REGISTERED Assessment Noted Time PHQ-9 Depression Total Score: 1 04/20/20 24 11:16 PM CDT documented as of this encounter Care Teams Program Project Analyst Relationship Specialty Start Date End Date Anu Thompson DO [address] [place] [id number] PCP - General Family Practice 07/21/23 09/17/24 documented as of this encounter
--- NOTE | 2025-02-27 03:24 | W.ED.GIBLEED ---
HPI - GI Bleed General: Chief complaint: GI Bleed Stated complaint: Abd Pain/Rectal Bleeding Time Seen by Provider: 02/27/25 03:02 History of Present Illness: Patient presents with complaints of gastrointestinal bleeding. She has a history of head / neck cancer (larynynx) Patient reports vomiting blood, though denies it being bright red in color, suggesting possible hematemesis with partially digested blood. Patient denies any previous history of intestinal bleeding. Medication history reveals patient is taking 81mg aspirin daily and has been using ibuprofen or Naprosyn regularly. Patient denies being on other blood thinners such as Eliquis. Patient is currently experiencing pain associated with the bleeding episode. Related Data Home Medications ?Medication ?Instructions ?Recorded ?Confirmed budesonide 0.5 mg/2 mL suspension 0.5 mg inhalation BID PRN 05/08/24 10/14/24 for nebulization Shortness Of Breath albuterol sulfate 90 mcg/actuation 2 inh inhalation Q4H PRN shortness 08/22/24 10/14/24 aerosol inhaler of breath or wheezing clopidogrel 75 mg tablet (Plavix) 75 mg PO DAILY 08/22/24 10/14/24 hydroxyzine HCl 10 mg tablet 10 mg PO TID PRN Anxiety 08/22/24 10/14/24 ipratropium 0.5 mg-albuterol 3 mg 3 ml inhalation QID PRN Shortness 08/22/24 10/14/24 (2.5 mg base)/3 mL nebulization Of Breath Or Wheezing soln paroxetine HCl 40 mg tablet See Rx Instructions .Route .COMPLEX 08/22/24 10/14/24 alprazolam 0.5 mg tablet 0.5 mg PO DAILY PRN anxiety 10/14/24 10/14/24 hydralazine 50 mg tablet 50 mg PO TID 10/14/24 10/14/24 Held on 10/17/24. Instructions: Resume on 10/31/24. hold until you see primary care hydrocodone 5 mg-acetaminophen 325 1 tab PO Q6H PRN Pain 10/14/24 10/14/24 mg tablet olanzapine 5 mg tablet 5 mg PO QPM 10/14/24 10/14/24 ondansetron 8 mg disintegrating 8 mg PO Q8H PRN Nausea And Vomiting 10/14/24 10/14/24 tablet tramadol 50 mg tablet 50 mg PO TID 10/14/24 10/14/24 Previous Rx's ?Medication ?Instructions ?Recorded aspirin 81 mg tablet,delayed 81 mg PO DAILY #30 tabs 01/15/24 release atorvastatin 40 mg tablet 40 mg PO BEDTIME #90 tabs 02/15/24 metoprolol tartrate 25 mg tablet 25 mg PO BID@0900,2100 #180 tabs 02/15/24 albuterol sulfate 2.5 mg/3 mL 2.5 mg (3 mL) inhalation Q4H PRN 04/12/24 (0.083 %) solution for nebulization shortness of breath or wheezing #90 mL guaifenesin 600 mg tablet, 1,200 mg (2 x 600 mg) PO 08/25/24 extended release 12 hr (Mucinex) BID@0900,2100 #30 tabs prednisone 20 mg tablet 20 mg PO TID #15 tabs 02/22/25 Allergies Allergy/AdvReac Type Severity Reaction Status Date / Time hydromorphone (From Dilaudid) Allergy ADR-Migrain Verified 02/27/25 03:26 e Review of Systems General: Reports: 10 or more systems reviewed and unremarkable except in HPI and below PFSH ED PFSH: Medical History COPD (chronic obstructive pulmonary disease) CKD (chronic kidney disease) Diastolic heart failure Hypertension Coronary artery disease Coronary angiogram from 01/13 showed moderate disease in LCx and LAD?negative on IFR Abnormal stress test Cannabis use disorder, mild, abuse Amphetamine use disorder, severe, dependence Bipolar disorder in full remission Bipolar disorder Social History Smoking and tobacco/nicotine status: current every day tobacco/nicotine user cigarettes Packs smoked per day: 1.5 Years cigarettes smoked: 30 Quit status (tobacco/nicotine): not considering quitting Second hand smoke exposure: Yes Current gender identity: Female Physical Exam Const: COMMON NORMALS: alert; negative for well nourished Resp: COMMON NORMALS: normal respiratory effort and clear to auscultation bilaterally AUSCULTATION: clear to auscultation bilaterally Cardio: COMMON NORMALS: regular rate and regular rhythm RATE: regular rate RHYTHM: regular rhythm GI: COMMON NORMALS: Soft to palpation PALPATION: Yes Soft to palpation, Yes Tenderness to palpation present (GI) and Yes Guarding due to palpation present (GI) Neuro: SENSORIUM/ORIENTATION: Yes alert Skin: COMMON NORMALS: no rashes or lesions noted GENERAL SKIN EXAM: no rashes or lesions noted Course Vital Signs: Vital signs: Vital Signs Temperature 97.6 F 02/27/25 02:25 Pulse Rate 46 L 02/27/25 02:25 Respiratory Rate 26 H 02/27/25 03:53 Blood Pressure 198/83 02/27/25 02:25 Pulse Oximetry 100 02/27/25 03:53 Oxygen Delivery Me thod Trach Collar 02/27/25 02:25 MDM - GI Bleed Medical Decision Making 1. Gastrointestinal bleeding, likely upper GI source: - Hematemesis, not bright red, suggesting partially digested blood - Possible NSAID-induced gastritis/ulceration given history of regular ibuprofen/Naprosyn use and daily aspirin - Plan: NPO status (nothing by mouth), including ice chips - Administer pain medication for comfort - Order imaging scan to evaluate source of bleeding - Discontinue NSAIDs and consider risks/benefits of continuing aspirin therapy - Monitor for continued bleeding and hemodynamic stability - May require GI consultation for possible endoscopy depending on scan results Patient went for a CT scan that revealed concerns of pneumoperitoneum as well as some free fluid and concerns of possible gastric perforation. Over those concerns I called and talked to on-call surgery who is going to come in and see the patient. Patient has very poor prognosis. Lab Data Radiology Impressions Abdomen/Pelvis CT 02/27/25 03:27 IMPRESSION: Suspicion for bowel perforation arising from the gastric antrum. Consider underlying peptic ulcer disease. ADDENDUM: 02/27/25 0504 THIS REPORT CONTAINS FINDINGS THAT MAY BE CRITICAL TO PATIENT CARE. The findings were verbally communicated via telephone conference with PRAVEEN GARCIA at 5:03 AM CDT on 02/27/2025. The findings were acknowledged and understood. All radiology interpretation(s) finalized by discharge ED provider radiology interpretation(s): Abnormal CT scan concerning for gastric perforation from a possible ulcer. Discharge Plan Discharge Patient Disposition: Admitted As Inpatient Clinical Impression: Cancer of larynx, Upper gastrointestinal hemorrhage, Hematochezia, Acute perforated gastric ulcer with hemorrhage Condition: Stable Coding Level of Care Code ED Endless Bed Drum Sander for Shara Zaldivar
--- NOTE | 2025-02-27 03:27 | CTR_ITS ---
PROCEDURE INFORMATION: Exam: CT Abdomen And Pelvis With Contrast Exam date and time: 02/27/2025 4:16 AM Age: 49 years old Clinical indication: Abdominal pain; Generalized; Additional info: Unspecified abdominal pain, gib TECHNIQUE: Imaging protocol: Computed tomography of the abdomen and pelvis with contrast. Radiation optimization: All CT scans at this facility use at least one of these dose optimization techniques: automated exposure control; mA and/or kV adjustment per patient size (includes targeted exams where dose is matched to clinical indication); or iterative reconstruction. Contrast material: OMNI 350; Contrast volume: 100 ml; Contrast route: INTRAVENOUS (IV); COMPARISON: CR XR KUB [id number] 10/19/2024 3:56 PM RADIATION DOSE METRICS: Total DLP (mGy-cm): 626.1 FINDINGS: Tubes, catheters and devices: Percutaneous gastrostomy catheter within the mid gastric body. Liver: Normal. No mass. Gallbladder and biliary ducts: Mild severity nonspecific reactive gallbladder wall thickening. Negative for biliary system dilation. Pancreas: Normal. No ductal dilation. Spleen: Normal. No splenomegaly. Adrenal glands: Normal. No mass. Kidneys and ureters: Normal. No hydronephrosis. Stomach and bowel: Thickening of the gastric antral wall. There may be a small focal defect in the anterior superior wall of the gastric antrum best seen axial series 4, image 39 with a focus of gas possibly in the wall which correlated with sagittal reconstruction image 47. Negative for small bowel obstruction. Diverticulosis coli. Appendix: No evidence of appendicitis. Intraperitoneal space: Small volume pneumoperitoneum. Small volume intraperitoneal free fluid predominantly right upper quadrant and dependently within the pelvis. Vasculature: Unremarkable. No abdominal aortic aneurysm. Lymph nodes: Unremarkable. No enlarged lymph nodes. Urinary bladder: Unremarkable as visualized. Reproductive: Hysterectomy. Bones/joints: Several old right lateral and posterior rib deformities. Negative for lumbar spine fracture. Negative for pelvic fracture. Soft tissues: Multiple fat containing midline supraumbilical ventral abdominal wall hernias. CT/CT abdomen pelvis w con* [id number] IMPRESSION: Suspicion for bowel perforation arising from the gastric antrum. Consider underlying peptic ulcer disease.
[2025-02-27] MEDS: fentaNYL 50 mcg/mL INJ 2mL 70.3 MCG IVP (03:53)
[2025-02-27] MEDS: iohexol 350 mg/mL 500 mL Btl (per mL) IV (04:18)
[2025-02-27] MEDS: pantoprazole 40 mg SDV IVP ×2 (05:15→17:36)
--- NOTE | 2025-02-27 05:38 | CTR_ITS ---
PROCEDURE INFORMATION: Exam: CT Abdomen And Pelvis Without Contrast Exam date and time: 02/27/2025 7:07 AM Age: 49 years old Clinical indication: Abdominal pain; Prior surgery; Surgery date: 6+ months; Surgery type: Peg tube, trach; HX of vocal cord cancer; Additional info: Repeat exam, please inject 60 cc of contrast through the g-tube just TECHNIQUE: Imaging protocol: Computed tomography of the abdomen and pelvis without contrast. Radiation optimization: All CT scans at this facility use at least one of these dose optimization techniques: automated exposure control; mA and/or kV adjustment per patient size (includes targeted exams where dose is matched to clinical indication); or iterative reconstruction. Other contrast: Catheter, OMNI 350, 20; COMPARISON: CT abdomen pelvis w con* [id number] 02/27/2025 4:16 AM RADIATION DOSE METRICS: Total DLP (mGy-cm): 646.73 FINDINGS: Tubes, catheters and devices: Percutaneous gastrostomy catheter in the gastric body remains in place. Liver: Normal. No mass. Gallbladder and biliary ducts: Normal. No calcified stones. No ductal dilation. Pancreas: Normal. No ductal dilation. Spleen: Normal. No splenomegaly. Adrenal glands: Normal. No mass. Kidneys and ureters: Normal. No hydronephrosis. Stomach and bowel: Diverticulosis coli. Negative for bowel obstruction. Distal gastric wall thickening. Appendix: No evidence of appendicitis. Intraperitoneal space: Pneumoperitoneum is redemonstrated. Small volume of scattered intraperitoneal free fluid redemonstrated. Intraluminal contrast in the stomach without definite intraperitoneal contrast spillage. However the contrast is just reaching the suspected area of perforation at the time of the scan. None of the contrast was distal to this area. Vasculature: Unremarkable. No abdominal aortic aneurysm. Lymph nodes: Unremarkable. No enlarged lymph nodes. Urinary bladder: Unremarkable as visualized. Reproductive: Unremarkable as visualized. Bones/joints: Unremarkable. No acute fracture. Soft tissues: Multiple fat containing supraumbilical ventral abdominal wall hernias. CT/CT abdomen pelvis wo con [id number] IMPRESSION: 1. The findings remain suspicious for a gastric antral region perforation. 2. There does seem to be some linear contrast extending into the suspected gastric wall defect. This does not extend into the intraperitoneal space, however there is very minimal contrast in this area at the time of imaging as the majority of the administered contrast was lying dependently in the gastric fundus.
[2025-02-27] MEDS: fentaNYL 50 mcg/mL INJ 2mL IVP ×2 (05:41→09:44)
[2025-02-27] MEDS: fentaNYL 50 mcg/mL INJ 2mL 25 MCG IVP ×3 (06:43→18:23)
[2025-02-27] MEDS: iohexol 350 mg/mL 500 mL Btl (per mL) PO (07:20)
[2025-02-27] MEDS: LORazepam 1 MG/0.5 ML injection IVP ×3 (08:12→22:50)
--- NOTE | 2025-02-27 08:29 | PM.MISC ---
Miscellaneous Note Note: Full consult note to follow. Patient with advanced largyneal cancer s/p chemorads. Has as tracheostomy, on O2 15/03. Also has a PEG tube. Came for bleeding around PEG tube site 02/23 and per notes tube was tightened in ER. Back with abdominal pain. CT demonstrated PEG in stomach. No contrast extravasation, however, the concern for gastric perforation remains. Explained the options. Patient has elected to proceed with hospice care.
--- NOTE | 2025-02-27 08:32 | PM.CONSULT ---
Providers/Reason For Consult Consulting Physician/Specialty*: dr. sawyer general surgery Reason for Consult*: gastric perforation Primary Care Provider: Edilma Stringer History of Present Illness History of Present Illness Yamileth Feliciano is a 49 year old female. Patient with advanced largyneal cancer s/p chemorads. Has as tracheostomy, on O2 15/03. Also has a PEG tube. Came for bleeding around PEG tube site 02/23 and per notes tube was tightened in ER. Back with abdominal pain. CT demonstrated PEG in stomach. No contrast extravasation. Medications/Allergies Home Medications ?Medication ?Instructions ?Recorded ?Confirmed ?Last Taken ?Type aspirin 81 mg tablet,delayed 81 mg PO DAILY #30 tabs 01/15/24 02/28/25 Unknown Rx release metoprolol tartrate 25 mg tablet 25 mg PO BID@0900,2100 #180 tabs 02/15/24 02/28/25 Unknown Rx budesonide 0.5 mg/2 mL suspension 0.5 mg inhalation BID PRN 05/08/24 02/28/25 Unknown History for nebulization Shortness Of Breath albuterol sulfate 90 mcg/actuation 2 inh inhalation Q4H PRN shortness 08/22/24 02/28/25 Unknown History aerosol inhaler of breath or wheezing clopidogrel 75 mg tablet (Plavix) 75 mg PO DAILY 08/22/24 02/28/25 Unknown History hydroxyzine HCl 10 mg tablet 10 mg PO TID PRN Anxiety 08/22/24 02/28/25 Unknown History paroxetine HCl 40 mg tablet See Rx Instructions .Route .COMPLEX 08/22/24 02/28/25 Unknown History guaifenesin 600 mg tablet, 1,200 mg (2 x 600 mg) PO 08/25/24 02/28/25 Unknown Rx extended release 12 hr (Mucinex) BID@0900,2100 #30 tabs prednisone 20 mg tablet 20 mg PO TID #15 tabs 02/22/25 02/28/25 Unknown Rx hydrocodone 10 mg-acetaminophen 1 tab PO Q4H PRN Pain 02/28/25 02/28/25 Unknown History 325 mg tablet lidocaine-prilocaine 2.5 %-2.5 % See Rx Instructions .Route .COMPLEX 02/28/25 02/28/25 Unknown History topical cream Allergies Allergy/AdvReac Type Severity Reaction Status Date / Time hydromorphone (From Dilaudid) Allergy ADR-Migrain Verified 02/27/25 03:26 e Current Medications Generic Name Dose Route Start Last Admin Trade Name Wesley PRN Reason Stop Dose Admin Sodium Chloride 1,000 mls @ 100 mls/hr 02/27/25 03:15 02/27/25 05:25 Sodium Chloride 0.9% IV 100 mls/hr .Q10H PARDEEP Administration PFSH Acute PFSH: Medical History COPD (chronic obstructive pulmonary disease) CKD (chronic kidney disease) Diastolic heart failure Hypertension Coronary artery disease Coronary angiogram from 01/13 showed moderate disease in LCx and LAD?negative on IFR Abnormal stress test Cannabis use disorder, mild, abuse Amphetamine use disorder, severe, dependence Bipolar disorder in full remission Bipolar disorder Social History Smoking and tobacco/nicotine status: current every day tobacco/nicotine user cigarettes Packs smoked per day: 1.5 Years cigarettes smoked: 30 Quit status (tobacco/nicotine): not considering quitting Second hand smoke exposure: Yes Current gender identity: Female Vitals/I&O/Wt Last Vital Signs Temp 97.6 F 02/27/25 02:25 Pulse 46 L 02/27/25 02:25 Resp 25 H 02/27/25 06:43 BP 198/83 02/27/25 02:25 Pulse Ox 100 02/27/25 03:53 O2 Del Method Trach Collar 02/27/25 02:25 02/26/25 02/27/25 02/27/25 22:59 06:59 14:59 Intake Total 1000 / 1000 Balance 1000 / 1000 Weight last 48 hrs Weight 155 lb Physical Exam Narrative: tachycardic tachypneic on o2. Tracheostomy in place abdomen soft, TTP, distended A&P Assessment and plan 1. Acute perforated gastric ulcer with hemorrhage: Plan: 49 yo female with advanced laryngeal cancer. Consulted for gastric perforation. Had an extensive discussion with the patient. After discussing her options, she has decided to pursue hospice care. PDMP PDMP Reviewed: Not Reviewed Coding Level of Care Code 77409 Diagnoses Acute perforated gastric ulcer with hemorrhage K25.2
[2025-02-27] MEDS: ondansetron 2 mg/ML SDV 2 mL 4 MG IVP (09:42)
--- NOTE | 2025-02-27 12:07 | PC.SOCIAL ---
Addendum entered by Anabel Cunningham RN 02/27/25 13:38: [facility] both decline referral. [facility] reviewing at this time and will call CM back. Referral sent to [facility] and [facility]. Addendum entered by Anabel Cunningham RN 02/27/25 12:31: [facility] Spoke with Sienna at [facility] and she inquires how long patient has had her trach for. CM asked for this information. Original Note: SNF Referral [facility], [facility], [facility] [place] [facility] have all declined referral r/t to trach/complexity. Referral is out to [facility] and [facility] at this time.
--- NOTE | 2025-02-27 13:48 | PC.SOCIAL ---
[id number] Completed Return code: [email or web address]
--- NOTE | 2025-02-27 14:18 | PC.SOCIAL ---
Addendum entered by Anabel Cunningham RN 02/27/25 15:14: CORRECTION: [facility] in [place] is accepting facility for tomorrow. Addendum entered by Anabel Cunningham RN 02/27/25 14:23: Patient does not have a preference of Hospice company, and [facility] prefers [place]. Referral faxed to them at this time. Original Note: [facility] Accept[facility] Spoke with Paty at [facility] who states that she can accept patient tomorrow. She needs to know brand and size of trach, size of peg, and if she has any feeding tube orders. Requested this information to be obtained. [id number] code provided to Paty. Updated UC of acceptance tomorrow.
--- NOTE | 2025-02-27 16:20 | PM.HP ---
Providers/Chief Complaint Primary Care Provider: Edilma Stringer Chief Complaint: Abd Pain/Rectal Bleeding History of Present Illness Yamileth Feliciano is a 49 year old patient with a history of squamous cell carcinoma treated with chemoradiation, coronary artery disease, asthma, congestive heart failure, chronic kidney disease, COPD, and long-standing tobacco use who presented to the ED after episodes of hematemesis and bleeding around her gastrostomy PEG tube. CT abdomen/pelvis without contrast showed concern for gastric antral perforation compatible with peptic ulcer disease. The patient has been taking daily aspirin 81 mg and frequent NSAIDs (ibuprofen, naproxen). Surgery was consulted; after discussion the patient and family elected for hospice care rather than operative intervention. Case management is arranging transfer to a nursing facility tomorrow for inpatient hospice. Current symptoms include abdominal pain; patient denies fever, chills, or diarrhea. Enteral nutrition at home consists of Jevity via can bolus feeds with water flushes. The patient normally uses home oxygen via tracheostomy. No additional new ROS findings were elicited. Review of Systems Const: Denies: fever(s), chills, body aches or malaise ENMT: Denies: throat pain Card: Denies: chest pain, edema, pre-syncope or dyspnea on exertion Resp: Denies: dyspnea, productive cough, change in phlegm color or hemoptysis GI: Reports: abdominal pain, nausea, vomiting and hematemesis; Denies: diarrhea, constipation, hematochezia or melena : Denies: flank pain, urinary frequency or hematuria Musc: Denies: back pain, joint swelling or joint redness Skin/Breast: Denies: rash or new lesions Neuro: Denies: headache(s) or confusion Medications/Allergies Home Medications ?Medication ?Instructions ?Recorded ?Confirmed ?Last Taken ?Type aspirin 81 mg tablet,delayed 81 mg PO DAILY #30 tabs 01/15/24 10/14/24 Unknown Rx release atorvastatin 40 mg tablet 40 mg PO BEDTIME #90 tabs 02/15/24 10/14/24 Unknown Rx metoprolol tartrate 25 mg tablet 25 mg PO BID@0900,2100 #180 tabs 02/15/24 10/14/24 Unknown Rx albuterol sulfate 2.5 mg/3 mL 2.5 mg (3 mL) inhalation Q4H PRN 04/12/24 10/14/24 Unknown Rx (0.083 %) solution for nebulization shortness of breath or wheezing #90 mL budesonide 0.5 mg/2 mL suspension 0.5 mg inhalation BID PRN 05/08/24 10/14/24 Unknown History for nebulization Shortness Of Breath albuterol sulfate 90 mcg/actuation 2 inh inhalation Q4H PRN shortness 08/22/24 10/14/24 Unknown History aerosol inhaler of breath or wheezing clopidogrel 75 mg tablet (Plavix) 75 mg PO DAILY 08/22/24 10/14/24 Unknown History hydroxyzine HCl 10 mg tablet 10 mg PO TID PRN Anxiety 08/22/24 10/14/24 Unknown History ipratropium 0.5 mg-albuterol 3 mg 3 ml inhalation QID PRN Shortness 08/22/24 10/14/24 Unknown History (2.5 mg base)/3 mL nebulization Of Breath Or Wheezing soln paroxetine HCl 40 mg tablet See Rx Instructions .Route .COMPLEX 08/22/24 10/14/24 Unknown History guaifenesin 600 mg tablet, 1,200 mg (2 x 600 mg) PO 08/25/24 10/14/24 Unknown Rx extended release 12 hr (Mucinex) BID@0900,2100 #30 tabs alprazolam 0.5 mg tablet 0.5 mg PO DAILY PRN anxiety 10/14/24 10/14/24 Unknown History hydralazine 50 mg tablet 50 mg PO TID 10/14/24 10/14/24 Unknown History Held on 10/17/24. Instructions: Resume on 10/31/24. hold until you see primary care hydrocodone 5 mg-acetaminophen 325 1 tab PO Q6H PRN Pain 10/14/24 10/14/24 Unknown History mg tablet olanzapine 5 mg tablet 5 mg PO QPM 10/14/24 10/14/24 Unknown History ondansetron 8 mg disintegrating 8 mg PO Q8H PRN Nausea And Vomiting 10/14/24 10/14/24 Unknown History tablet tramadol 50 mg tablet 50 mg PO TID 10/14/24 10/14/24 Unknown History prednisone 20 mg tablet 20 mg PO TID #15 tabs 02/22/25 Unknown Rx Allergies Allergy/AdvReac Type Severity Reaction Status Date / Time hydromorphone (From Dilaudid) Allergy ADR-Migrain Verified 02/27/25 03:26 e PFSH Acute PFSH: Medical History COPD (chronic obstructive pulmonary disease) CKD (chronic kidney disease) Diastolic heart failure Hypertension Coronary artery disease Coronary angiogram from 01/13 showed moderate disease in LCx and LAD?negative on IFR Abnormal stress test Cannabis use disorder, mild, abuse Amphetamine use disorder, severe, dependence Bipolar disorder in full remission Bipolar disorder Social History Smoking and tobacco/nicotine status: current every day tobacco/nicotine user cigarettes Packs smoked per day: 1.5 Years cigarettes smoked: 30 Quit status (tobacco/nicotine): not considering quitting Second hand smoke exposure: Yes Current gender identity: Female Vitals/I&O/Wt Last Vital Signs Temp 97.6 F 02/27/25 02:25 Pulse 85 02/27/25 11:00 Resp 32 H 02/27/25 15:53 BP 132/105 02/27/25 11:00 Pulse Ox 92 02/27/25 15:53 O2 Del Method Trach Collar 02/27/25 11:00 O2 Flow Rate 6 02/27/25 10:30 02/27/25 02/27/25 02/27/25 06:59 14:59 22:59 Intake Total 1000 / 1000 Balance 1000 / 1000 Weight last 48 hrs Weight 70.307 kg Physical Exam Narrative: Family at bedside Const: COMMON NORMALS: patient oriented x3 and alert GENERAL APPEARANCE: cooperative ORIENTATION/CONSCIOUSNESS: Yes awake HENMT: COMMON NORMALS: oropharynx normal OTHER: Trach, HAG Neck/C-Spine: COMMON NORMALS: no JVD Resp: COMMON NORMALS: normal respiratory effort and clear to auscultation bilaterally AUSCULTATION: clear to auscultation bilaterally Cardio: COMMON NORMALS: no JVD, regular rhythm, S1 normal heart sound present, S2 normal heart sound present and No murmurs present (Cardio) RHYTHM: regular rhythm HEART SOUNDS: S1 normal heart sound present and S2 normal heart sound present GI: COMMON NORMALS: Normal to inspection, nondistended, normoactive bowel sounds present, Soft to palpation and non-tender PALPATION: Yes Soft to palpation OTHER: PEG Extremity: COMMON NORMALS: no joint enlargement and no pedal edema Neuro: COMMON NORMALS: patient oriented x3 and moves all extremities SENSORIUM/ORIENTATION: Yes alert Skin: COMMON NORMALS: no rashes or lesions noted GENERAL SKIN EXAM: no rashes or lesions noted A&P Assessment and plan 1. Acute perforated gastric ulcer with hemorrhage: Upper gastrointestinal bleeding with suspected gastric perforation secondary to peptic ulcer disease : CT abdomen/pelvis revealed contrast extravasation from gastric antrum suggesting perforated peptic ulcer likely medication induced; aspirin, NSAIDs, corticosteroid, hematemesis and bleeding around gastrostomy tube noted. Reviewed vital signs, CT abdomen pelvis with contrast as well as repeat CT without contrast, ED provider note, discussed with ED provider, reviewed surgery note. - Hold enteral tube feeds for now - Continue IV Protonix for gastric acid suppression - No surgical intervention per patient/family preference; pursue comfort-focused care 2. Upper gastrointestinal hemorrhage: 3. Complication of feeding tube: 4. Cancer of larynx: Seeking arrangements for hospice care. Care to be continued at nursing facility tomorrow. Plan: Palliative symptom management (pain/anxiety) : Ongoing abdominal pain and anxiety related to illness. - Oral morphine PRN for pain - IV morphine PRN for breakthrough pain - Ativan PRN for anxiety PDMP PDMP Reviewed: Not Reviewed Attestations Medical Necessity Statement*: Place in observation after hematemesis and gastric perforation, gastritis, PUD, upper GI bleeding, and a lady with PEG tube, laryngeal cancer. and High MDM includes amount and/or complexity of data reviewed/ordered [ previous or external records, resulted lab(s)/test(s) and other healthcare professional discussion] and described risk of complication, morbidity or mortality of management as documented Diagnoses Acute perforated gastric ulcer with hemorrhage K25.2 Upper gastrointestinal hemorrhage K92.2 Complication of feeding tube K94.20 Cancer of larynx C32.9
[2025-02-27] MEDS: D5-NS 0.45% + KCL 20 mEq 20 MEQ/1,000 ML BAG 100 MEQ IV (19:39)
[2025-02-27] MEDS: sennosides-docusate Tablet 1 TAB PO (19:41)
[2025-02-27] MEDS: morphine 10 mg/0.5 mL oral liq UD SUBLINGUAL ×2 (19:49→21:45)
[2025-02-28] VITALS: BP 98/54; PULSE 72; RESP 18; TEMP 36.6; O2SAT 90
[2025-02-28] MEDS: morphine 10 mg/0.5 mL oral liq UD SUBLINGUAL ×6 (01:01→12:52)
[2025-02-28 04:00] VITALS: BP 101/70; PULSE 60; RESP 18; TEMP 36.5; O2SAT 99
[2025-02-28 04:25] VITALS: PULSE 68
[2025-02-28] MEDS: pantoprazole 40 mg SDV IVP (05:22)
[2025-02-28 07:39] VITALS: BP 105/65; PULSE 87; TEMP 36.9; O2SAT 88
[2025-02-28] MEDS: sennosides-docusate Tablet 1 TAB PO (07:50)
--- NOTE | 2025-02-28 08:41 | PC.NURSE ---
In room to talk to patient and visitor at bedside about a blood transfusion as her Hemoglobin is 6.8. Patient states, I do not want to take a blood transfusion if I don't too. Patient states, I was taking an all natural supplement at home to increase her hemoglobin and iron. Patient states, If I take iron I will need Vitamin C to help it absorb and it needs to have trace copper in it or it won't absorb either. My friend who is a mid- and my chiropractor both say so. Will check with the pharmacy.
--- NOTE | 2025-02-28 09:48 | PC.NURSE ---
Report called to Anne Marie at [facility] in [place]. Family advised by Case Mgt that pt will be transported to [facility] today. Son did not answer phone, daughter was advised.
--- NOTE | 2025-02-28 10:41 | PC.PHAR ---
Went over med list with patient. She wasn' feeling well . She did shake her head no to medications on med list that were old. Patient didn't state any otc.
--- NOTE | 2025-02-28 10:42 | PC.NURSE ---
[facility] contacted for stretcher ride. State that they will be here in about 2 hours.
[2025-02-28] MEDS: LORazepam 1 MG/0.5 ML injection IVP (10:48)
--- NOTE | 2025-02-28 12:37 | P.DS_ITS ---
Discharge Providers Date of Admission: 02/27/25 16:37 Date of Discharge: February 28, 2025 Attending Provider at Admission: Bradford Lindquist Attending Provider at Discharge: Reno Neal MD Primary Care Provider: Edilma Stringer Diagnoses at Discharge Discharge Diagnosis 1. Acute perforated gastric ulcer with hemorrhage: 2. Upper gastrointestinal hemorrhage: 3. Complication of feeding tube: 4. Cancer of larynx: Reason for Visit Reason for Visit: Abd Pain/Rectal Bleeding Brief History: History as per HPI: Yamileth Feliciano is a 49 year old patient with a history of squamous cell carcinoma treated with chemoradiation, coronary artery disease, asthma, congestive heart failure, chronic kidney disease, COPD, and long-standing tobacco use who presented to the ED after episodes of hematemesis and bleeding around her gastrostomy PEG tube. CT abdomen/pelvis without contrast showed concern for gastric antral perforation compatible with peptic ulcer disease. The patient has been taking daily aspirin 81 mg and frequent NSAIDs (ibuprofen, naproxen). Surgery was consulted; after discussion the patient and family elected for hospice care rather than operative intervention. Case management is arranging transfer to a nursing facility tomorrow for inpatient hospice. Current symptoms include abdominal pain; patient denies fever, chills, or diarrhea. Enteral nutrition at home consists of Jevity via can bolus feeds with water flushes. The patient normally uses home oxygen via tracheostomy. No additional new ROS findings were elicited. Hospital Course Hospital Course Patient was admitted to the hospital for evaluation and management of acute perforated gastric ulcer with hemorrhage. Surgery was consulted. As per goals of care discussion between the admitting provider and patient and her family she was started on comfort care measures. She is being discharged to SNF for further management as per comfort care as per goals of care discussions done earlier in the admission. Physical Exam Narrative: Exam deferred given patient being in comfort care status. Patient sitting comfortably in bed, awake and alert, complaining of some abdominal pain and asking for morphine. Tracheostomy in place. Urinary Catheter Management: Osorio: Cath Placed During This Visit: yes Reason for Continuing Indwelling Catheter: Hospice/Comfort/Palliative Care Urinary Catheter Date of Insertion: 02/28/25 Urinary Catheter Time of Insertion: 02:59 Discharge Data Studies Completed and Pending Completed Studies During Hospitalization Category Date Time Status CT abdomen pelvis w con* [id number] Stat Cat Scan 02/27/25 03:[address] abdomen pelvis con [id number] Stat Cat Scan 02/27/25 05:38 Completed Radiology Impressions Abdomen/Pelvis CT 02/27/25 05:38 IMPRESSION: 1. The findings remain suspicious for a gastric antral region perforation. 2. There does seem to be some linear contrast extending into the suspected gastric wall defect. This does not extend into the intraperitoneal space, however there is very minimal contrast in this area at the time of imaging as the majority of the administered contrast was lying dependently in the gastric fundus. Vitals Last Vital Signs Temp 98.4 F 02/28/25 07:39 Pulse 87 02/28/25 07:39 Resp 18 02/28/25 04:00 BP 105/65 02/28/25 07:39 Pulse Ox 88 L 02/28/25 07:39 O2 Del Method Trach Collar 02/28/25 07:39 O2 Flow Rate 6 02/28/25 08:30 Discharge Plan Discharge Patient Disposition: Hospice - Medical Facility Condition: Stable Prescriptions: Continued metoprolol tartrate 25 mg tablet 25 mg PO BID@0900,2100 Qty: 180 1RF hydrocodone-acetaminophen 10-325 mg tablet 1 tab PO Q4H PRN (Reason: Pain) lidocaine-prilocaine 2.5-2.5 % cream See Rx Instructions .ROUTE .COMPLEX Rx Instructions: Apply 2.5 grams/0.5 TO port site an hour prior TO access. Apply occlusive dressing if available. aspirin 81 mg Tablet,Delayed Release (Dr/Ec) 81 mg PO DAILY Qty: 30 0RF budesonide 0.5 mg/2 mL suspension for nebulization 0.5 mg inhalation BID PRN (Reason: Shortness Of Breath) clopidogrel [Plavix] 75 mg Tablet 75 mg PO DAILY Rx Instructions: crush 1 tablet and put in gi tube daily paroxetine HCl 40 mg Tablet See Rx Instructions .ROUTE .COMPLEX Rx Instructions: 40 mg orally ;place 1 tab in tube daily hydroxyzine HCl 10 mg Tablet 10 mg PO TID PRN (Reason: Anxiety) albuterol sulfate 90 mcg/actuation HFA aerosol inhaler 2 inh inhalation Q4H PRN (Reason: shortness of breath or wheezing) guaifenesin [Mucinex] 600 mg Tablet Extended Release 12hr 1,200 mg PO BID@0900,2100 Qty: 30 0RF prednisone 20 mg tablet 20 mg PO TID Qty: 15 0RF Rx Instructions: 1 p.o. 3 times daily x3 days, 1 p.o. twice daily x2 days, 1 p.o. daily x2 days Discharge Order = DC NOW: Discharge Order (Routine); Ordered 02/28/25 Ordered By: Reno Neal Referrals: Edilma Stringer [Primary Care Provider] Patient Instructions: Opioid Safety, Patient Portal & Boogie Instructions Discharge Attestations Time Spent in Discharge Care*: greater than 30 min Specific Discharge Activities: educating patient, discussing with pcp/other providers, discussing with rehabilitation caseworker/social workers/dc planners, documenting/other paperwork and evaluating patient/reviewing data Status at Discharge: Cognitive status at discharge: cognitively intact , Behavioral status at discharge: cooperative , Functional status at discharge: other assisted ambulation , Overall status at discharge: patient has a new baseline Quality Metrics Clinical Quality Measures [ No reported AMI, CVA or VTE this stay] Coding Level of Care Code 83831 Total time (in minutes) for Discharge: 65 Diagnoses Acute perforated gastric ulcer with hemorrhage K25.2 Upper gastrointestinal hemorrhage K92.2 Complication of feeding tube K94.20 Cancer of larynx C32.9
[2025-02-28 13:11] VITALS: BP 105/65; PULSE 87; RESP 22; TEMP 36.9; O2SAT 89
--- NOTE | 2025-02-28 13:12 | PC.NURSE ---
[facility] here to [employer] material [employer] pt. All belongings sent with pt including purse, phone, glasses.
--- NOTE | 2025-02-28 13:14 | PC.NURSE ---
Other family members already notified by case mgt that pt transferring to [facility] today. This nurse attempts to call . Number is not a valid number.
== END 2025-02-28 13:14 | disposition hospice, inpatient (51) ==
LOC: ER 07:10 → ER IP 16:38 → MEDSURG 17:39
PROVIDERS: Admitting Provider Internal Medicine; Emergency Provider Family Medicine; PCP Nurse Practitioner Adult Health; Visit Provider Student in an Organized Health Care Education/Training Program
DX: K25.2 Acute gastric ulcer with both hemorrhage and perforation (principal); K94.20 Gastrostomy complication, unspecified; C32.9 Malignant neoplasm of larynx, unspecified; Z79.82 Long term (current) use of aspirin; I25.10 Atherosclerotic heart disease of native coronary artery without angina pectoris; J44.9 Chronic obstructive pulmonary disease, unspecified; I50.9 Heart failure, unspecified; Z85.828 Personal history of other malignant neoplasm of skin; I12.9 Hypertensive chronic kidney disease with stage 1 through stage 4 chronic kidney disease, or unspecified chronic kidney disease; N18.9 Chronic kidney disease, unspecified; F17.210 Nicotine dependence, cigarettes, uncomplicated; F12.90 Cannabis use, unspecified, uncomplicated; F15.20 Other stimulant dependence, uncomplicated; F31.9 Bipolar disorder, unspecified
CPT/HCPCS: 51702; 74176; 74177; 96361; 96374; 96375; 96376; 99285; G0378; J2060; J2405; J2470; J3010; J7030; J9999